=== PATIENT | female | born 1940 | race Caucasian/White ===

== ENCOUNTER 2023-02-25 10:20 | Outpatient (OUT) | payer MEDICARE, OTHER, SELFPAY ==
[2023-02-25 11:14] LABS: Basophils Absolute Auto 0.1 10^3/uL (0.0-0.1); Basophils Percent Auto 0.9 % (0.2-2.0); Eosinophils Absolute Auto 0.3 10^3/uL (0.0-0.7); Eosinophils Percent Auto 4.3 % (0.9-7.0); Hematocrit 40.5 % (36.0-48.0); Hemoglobin 13.4 g/dL (12.0-16.0); Immature Granulocytes Abs Auto 0.02 10^3/uL (0.00-0.03); Immature Granulocytes Pct Auto 0.3 % (0.0-0.5); Lymphocytes Absolute Auto 1.8 10^3/uL (1.2-3.8); Lymphocytes Percent Auto 28.3 % (20.5-60.0); Mean Corpuscular HGB Conc 33.1 g/dL (29.9-35.2); Mean Corpuscular Volume 90.8 fL (81.0-99.0); Mean Platelet Volume 9.6 fL (9.5-13.5); Monocytes Absolute Auto 1.1 10^3/uL (0.3-0.8); Monocytes Percent Auto 17.6 % (1.7-12.0); Neutrophils Absolute Auto 3.1 10^3/uL (1.4-6.5); Neutrophils Percent Auto 48.6 % (43.0-75.0); Platelet Count 281 10^3/uL (150-450); Red Blood Count 4.46 10^6/uL (4.20-5.40); Red Cell Distribution Width 13.2 % (11.0-15.0); White Blood Count 6.5 10^3/uL (4.0-11.0)
== END 2023-02-25 10:21 | disposition home or self-care (01) ==
PROVIDERS: PCP Internal Medicine; Visit Provider Internal Medicine
DX: D50.0 Iron deficiency anemia secondary to blood loss (chronic) (principal)
CPT/HCPCS: 36415; 82728; 85025

== ENCOUNTER 2023-05-24 13:46 | Outpatient (OUT) | payer MEDICARE, OTHER, SELFPAY ==
[2023-05-24 14:19] LABS: Basophils Absolute Auto 0.1 10^3/uL (0.0-0.1); Basophils Percent Auto 0.6 % (0.2-2.0); Eosinophils Absolute Auto 0.2 10^3/uL (0.0-0.7); Eosinophils Percent Auto 2.4 % (0.9-7.0); Hematocrit 39.4 % (36.0-48.0); Hemoglobin 12.8 g/dL (12.0-16.0); Immature Granulocytes Abs Auto 0.02 10^3/uL (0.00-0.03); Immature Granulocytes Pct Auto 0.2 % (0.0-0.5); Lymphocytes Absolute Auto 2.8 10^3/uL (1.2-3.8); Lymphocytes Percent Auto 35.1 % (20.5-60.0); Mean Corpuscular HGB Conc 32.5 g/dL (29.9-35.2); Mean Corpuscular Volume 92.5 fL (81.0-99.0); Mean Platelet Volume 9.9 fL (9.5-13.5); Monocytes Absolute Auto 1.2 10^3/uL (0.3-0.8); Monocytes Percent Auto 14.7 % (1.7-12.0); Neutrophils Absolute Auto 3.8 10^3/uL (1.4-6.5); Platelet Count 301 10^3/uL (150-450); Red Blood Count 4.26 10^6/uL (4.20-5.40); Red Cell Distribution Width 13.4 % (11.0-15.0); White Blood Count 8.1 10^3/uL (4.0-11.0)
== END 2023-05-24 13:47 | disposition home or self-care (01) ==
PROVIDERS: PCP Internal Medicine; Visit Provider Internal Medicine
DX: D50.0 Iron deficiency anemia secondary to blood loss (chronic) (principal)
CPT/HCPCS: 36415; 82728; 85025

== ENCOUNTER 2023-05-31 10:23 | Outpatient (OUT) | payer MEDICARE, OTHER, SELFPAY ==
[2023-05-31 11:35] LABS: Basophils Absolute Auto 0.1 10^3/uL (0.0-0.1); Eosinophils Absolute Auto 0.2 10^3/uL (0.0-0.7); Eosinophils Percent Auto 2.1 % (0.9-7.0); Hemoglobin 13.7 g/dL (12.0-16.0); Immature Granulocytes Abs Auto 0.02 10^3/uL (0.00-0.03); Immature Granulocytes Pct Auto 0.2 % (0.0-0.5); Lymphocytes Absolute Auto 2.5 10^3/uL (1.2-3.8); Lymphocytes Percent Auto 25.7 % (20.5-60.0); Mean Corpuscular HGB Conc 32.6 g/dL (29.9-35.2); Mean Corpuscular Hemoglobin 30.6 pg (26.7-34.0); Mean Corpuscular Volume 93.8 fL (81.0-99.0); Mean Platelet Volume 10.2 fL (9.5-13.5); Monocytes Absolute Auto 1.2 10^3/uL (0.3-0.8); Monocytes Percent Auto 12.7 % (1.7-12.0); Neutrophils Absolute Auto 5.6 10^3/uL (1.4-6.5); Neutrophils Percent Auto 58.3 % (43.0-75.0); Platelet Count 326 10^3/uL (150-450); Red Blood Count 4.48 10^6/uL (4.20-5.40); Red Cell Distribution Width 13.5 % (11.0-15.0); White Blood Count 9.6 10^3/uL (4.0-11.0)
[2023-05-31 12:43] LABS: Alanine Aminotransferase 25 U/L (14-59); Albumin Globulin Ratio 1.1; Albumin Level 3.9 g/dL (3.4-5.0); Alkaline Phosphatase 81 U/L (46-116); Anion Gap 12.4; Aspartate Amino Transferase 20 U/L (15-37); BUN Creatinine Ratio 19.8; Bilirubin Total 0.3 mg/dL (0.2-1.0); Calcium 9.1 mg/dL (8.5-10.1); Chloride 99 mmol/L (98-107); Estimated GFR (African America >60 (>=60); Estimated GFR (Non-African Ame 59 (>=60); Globulin 3.6 g/dL; Glucose 80 mg/dL (74-106); Potassium 4.4 mmol/L (3.5-5.1); Sodium 136 mmol/L (136-145); Thyroid Stimulating Hormone 1.039 uIU/mL (0.358-3.740); Total Protein 7.5 g/dL (6.4-8.2)
--- OUTSIDE RECORDS SUMMARY | 2023-06-28 22:12 | XMS_ITS | CCD ---
Author Name Unknown Address [address] [place] [address] Organization [facility] Care Team Providers Care Emt Paramedic Name Role Phone Doctor, No Unavailable Unavailable Doctor, No Unavailable Unavailable Donnell Barton Unavailable Unavailable Donnell Barton Unavailable Unavailable Kvng Melgar DO Primary Care Provider Kvng Melgar DO Primary Care Provider DO Kvng Melgar Primary Care Provider MD Jeyson Diaz Attending Provider [phone] KVNG MLEGAR Primary Care Unavailable MAVIS SANTIAGO Referring Unavailable MAVIS SANTIAGO Attending Unavailable KVNG MELGAR Primary Care Unavailable KVNG MELGAR Primary Care Unavailable MAVIS SANTIAGO Attending Unavailable KVNG MELGAR Referring Unavailable KVNG MELGAR Primary Care Unavailable Adebayo Pan Unavailable Kvng Melgar Unavailable Jeyson Diaz Unavailable Sadiq Beckham Unavailable DO Kvng Melgar Primary Care Provider MD Jeyson Diaz Attending Provider [phone] KVNG MELGAR Primary Care Unavailable ERMELINDA, DR CALDERON Attending Unavailable ERMELINDA, DR CALDERON Admitting Unavailable BALL, DR CALDERON Consulting Unavailable ZIEBALENA, DR ANTHONY Gautam Consulting Unavailable ERMELINDA, DR CALDERON Consulting Unavailable BALL, DR CALDERON Admitting Unavailable BALL, DR CALDERON Attending Unavailable BALL, DR CALDERON Primary Care Unavailable BALL, DR CALDERON Admitting Unavailable BALL, DR CALDERON Attending Unavailable BALL, DR CALDERON Consulting Unavailable BALL, DR CALDERON Primary Care Unavailable BALL, DR CALDERON Primary Care Unavailable JAVON, DR FERGUSON Admitting Unavailable JAVON, DR FERGUSON Attending Unavailable KATELYNN ., NISSA Admitting Unavailable KATELYNN ., NISSA Attending Unavailable NESTOR, DR ANTHONY Gautam Consulting Unavailable BALL, DR CALDERON Primary Care Unavailable KATELYNN ., NISSA Consulting Unavailable FLOR ., LIDA Admitting Unavailable FLOR ., LIDA Attending Unavailable FLOR ., LIDA Consulting Unavailable BALL, DR CALDERON Primary Care Unavailable BALL, DR CALDERON Admitting Unavailable BALL, DR CALDERON Attending Unavailable BALL, DR CALDERON Consulting Unavailable BALL, DR CALDERON Primary Care Unavailable BALL, DR CALDERON Admitting Unavailable BALL, DR CALDERON Attending Unavailable BALL, DR CALDERON Consulting Unavailable BALL, DR CALDERON Primary Care Unavailable BALL, DR CALDERON Admitting Unavailable BALL, DR CALDERON Attending Unavailable BALL, DR CALDERON Consulting Unavailable BALL, DR CALDERON Primary Care Unavailable VELIA, BENJAMIN Consulting Unavailable Ball, DO Calderon Primary Care Provider [phone] MD Joe Imprice Attending Provider Asaad, Imad Attending Unavailable Ball, Kvng Primary Care Unavailable Asaad, Imad Admitting Unavailable Asaad, Imad Attending Unavailable Ball, Kvng Primary Care Unavailable Asaad, Imad Admitting Unavailable Asaad, Imad Attending Unavailable Ball, Kvng Primary Care Unavailable Asaad, Imad Admitting Unavailable Asaad, Imad Admitting Unavailable Ball, Kvng Primary Care Unavailable Asaad, Imad Attending Unavailable Allergies Allergy Classification Reported Allergen(s) Allergy Type Date of Onset Reaction(s) Facility (6 sources) Penicillins; Translations: [PENICILLINS] Drug allergy (disorder) 11-16-19 15 [facility] Repository (6 sources) Sulfonamides (Antibiotic); Translations: [SULFA (SULFONAMIDE ANTIBIOTICS)] Drug allergy (disorder) 11-16-19 15 [facility] Repository (5 sources) Tgtfouz-Ovi-Gux Reductase Inhibitor Drug allergy (disorder) 01-06-20 18 Unknown Reaction [facility] Repository (20 sources) Cephalosporins (Antibiotic); Translations: [CEPHALOSPORINS] Drug Allergy 10-24-19 15 Unknown [facility] (7 sources) HMG-CoA reductase inhibitor; Translations: [[id number] REDUCTASE INHIBITORS] Drug Allergy 01-06-20 18 Unknown [facility] (7 sources) Nitrofurantoin; Translations: [NITROFURANTOIN MACROCRYSTAL] Drug Allergy 10-12-19 19 Rash, Itching [facility] (6 sources) Penicillins Drug Allergy 11-16-19 15 [facility] (20 sources) Povidone-Iodine; Translations: [POVIDONE-IODINE] Drug Allergy 06-21-20 19 Unknown [facility] (20 sources) Sulfonamides (Antibiotic) Drug Allergy 11-16-19 15 [facility] (20 sources) Vancomycin; Translations: [VANCOMYCIN] Drug Allergy 10-12-19 19 Rash, Itching [facility] (20 sources) Nitrofurantoin; Translations: [nitrofurantoin] Drug Allergy 12-02-19 21 rash [facility] (20 sources) Penicillin G Benzathine Drug allergy rash [employer] Other (20 sources) Sulfacetamide / Sulfur Drug Allergy rash [employer] Other (20 sources) Statins Depletion Drug allergy muscle aches [facility] [employer] Other (1 source) black walnut pollen extract Drug Allergy 05-17-20 14 [facility] Repository (1 source) Cephalosporins (Antibiotic) Drug allergy (disorder) 10-24-19 15 [facility] Repository (2 sources) Nitrofurantoin Drug Allergy 10-24-19 15 rash [facility] Repository (1 source) Penicillins Drug allergy (disorder) 01-24-20 13 [facility] Repository (2 sources) Povidone-Iodine Drug Allergy 06-21-20 19 Unknown [facility] Repository (1 source) Sulfonamides (Antibiotic) Drug allergy (disorder) 01-31-20 13 [facility] Repository (1 source) Vancomycin Drug Allergy 10-24-19 15 [facility] Repository (19 sources) Statins Depletion *DIETARY PRODUCTS/DIETARY MANAGE Propensity to adverse reactions Unknown [employer] Other (19 sources) Substance with penicillin structure and antibacterial mechanism of action (substance) Drug allergy 04-30-20 06 PENICILLINS [employer] Other (19 sources) Sulf-10 Drug allergy 12-01-19 06 SULFA 10 [employer] Other (1 source) Cephalosporins (Antibiotic) Drug allergy (disorder) 01-25-20 23 [facility] Repository (1 source) Povidone-Iodine Drug Allergy 01-25-20 [facility] Repository (1 source) Vancomycin Drug Allergy 01-25-20 [facility] Repository (1 source) Vancomycin Drug Allergy rash Sequence [employer] Other Medications Current Medications Medication Drug Class(es) Dates Sig (Normalized) Sig (Original) acetaminophen 500 mg oral tablet (4 sources) Start: 07-26-2022 take 1 tablet by mouth four times daily Acetaminophen (Tylenol Ex Str Rapid Release) 500 mg Tablet Active 500 MG PO Four times daily July 26, 2022 1:00am take 1 tablet by mouth every six hours Tylenol Extra Strength 500 MG 1 tablet as needed Orally every 6 hrs Active acetaminophen 250 mg / aspirin 250 mg / caffeine 65 mg oral tablet (20 sources) Platelet Aggregation Inhibitor, Nonsteroidal Anti-inflammatory Drug, Central Nervous System Stimulant, Methylxanthine Start: 07-26-2022 take 1 tablet by mouth every four to six hours Xpccmmu-Deleaaqvnfezc-Fzrxwbue (Excedrin Migraine) 250-250-65 mg Tablet Active 1 TAB PO EVERY 4-6 HOURS July 26, 2022 1:00am take 2 tablets by mouth every si x hours Excedrin Migraine 250-250-65 MG 2 tablets as needed Orally every 6 hrs Active [id number] actuat albuterol 0.09 mg/actuat metered dose inhaler (20 sources) beta2-Adrenergic Agonist Start: 12-28-2017 take 2 puff(s) by inhalation every four hours as needed Albuterol Sulfate HFA 108 (90 Base) MCG/ACT 2 puffs as needed Inhalation every 4 hrs for 7 days Dec, Active Start: 12-28-2017 take 2 puff(s) by in halation every four hours as needed Albuterol Sulfate HFA 108 (90 Base) MCG/ACT 2 puffs as needed Inhalation every 4 hrs for 7 days Dec, Active Start: 12-28-2017 take 2 puff(s) by in halation every four hours as needed Albuterol Sulfate HFA 108 (90 Base) MCG/ACT 2 puffs as needed Inhalation every 4 hrs for 7 days Dec, Not-Taking Comment on above: INHALE 2 PUFFS EVERY 4 HOURS NEEDED FOR SHORTNESS OF BREATH OR WHEEZING amLODIPine 5 mg oral tablet (20 sources) Dihydropyridine Calcium Channel Frandy Start: 11-28-2019 take 2.5 mg by mouth once daily Amlodipine (Norvasc) 5 mg Tablet Active 2.5 MG PO Daily November 27, 2019 11:00pm Start: 09-02-2018 take 1 tablet by george th once daily Amlodipine (Norvasc) 5 mg Tablet Active 5 MG PO Daily November 28, 2019 12:00am Comment on above: TK 1 T PO QD ascorbic acid 500 mg oral capsule (1 source) Vitamin C Vitamin C 500 MG Orally Active atenolol 25 mg oral tablet (20 sources) beta-Adrenergic Frandy Start: 11-15-2014 take 1 tablet by mouth once daily Atenolol (Tenormin) 25 mg Tablet Active 25 MG PO Daily November 28, 2019 12:00am Comment on above: Take 1 tablet by george th once daily. Calcium + D 315-200 MG-UNIT (20 sources) take 1 tablet by mouth twice daily at mealtime Calcium + D 315-200 MG-UNIT 1 tablet with meals Orally Twice a day Active calcium carbonate 1500 mg oral tablet (3 sources) Start: 2022 Calcium Carbonate (Calcium 600) 600 mg calcium (1,500 mg) Tablet Active 1200 MG PO Daily July 26, 2022 1:00am cholecalciferol 0.01 mg chewable tablet (3 sources) Vitamin D Start: 2022 take 1 tablet by mouth once daily Cholecalciferol (Vitamin D3) (Vitamin D3) 10 mcg (400 unit) Tablet,Chewable Active 20 MCG PO Daily July 26, 2022 1:00am dicyclomine hydrochloride 10 mg oral capsule (20 sources) Anticholinergic take 2 capsules by mouth every eight hours Dicyclomine HCl 10 MG 2 capsules Orally Three times a day Active doxycycline hyclate 100 mg oral capsule (20 sources) Tetracycline-class Drug Start: 2022 take 1 capsule by mouth every twenty-four hours Doxycycline Hyclate 100 MG 1 capsule Orally Once a day for 5 days Feb, Active Start: 12-28-2017 take 1 capsule by [facility] every twelve hours Doxycycline Hyclate 100 MG 1 capsule Orally every 12 hrs for 10 days Dec, Not-Taking famotidine 20 mg oral tablet (20 sources) Histamine-2 Receptor Antagonist Start: 07-26-2022 take 1 tablet by mouth once daily before mealtime Famotidine (Pepcid Ac) 20 mg Tablet Active 20 MG PO Daily July 26, 2022 1:00am take 1 tablet by mouth twice taniya ly famotidine (PEPCID) 20 mg tablet Take 20 mg by mouth twice daily. 0 Active Comment on above: Take 20 mg by mouth twice daily. glucosamine sulfate 750 mg oral tablet (1 source) Start: 01-24-2023 take 1 tablet by mouth once daily Glucosamine Sulfate (Dayan) 750 mg Tablet Active 750 MG PO Daily January 24, 2023 12:00am administer with a meal levothyroxine sodium 0.112 mg oral tablet (20 sources) l-Thyroxi ne Start: 12-28-2022 take 1 tablet by mouth once daily in the morning Levothyroxine Sodium 112 MCG 1 tablet in the morning on an empty stomach Orally Once a day Dec, Active Start: 10-05-2018 take 1 tablet by george th once daily in the morning Levothyroxine Sodium 112 MCG 1 tablet in the morning on an empty stomach Orally Once a day Dec, Active Start: 10-05-2018 levothyroxine (SYNTHROID) 112 mcg tablet 0.125 mcg. 2 10/05/2018 Active take 1 tablet by george th every twenty-four hours Levothyroxine Sodium 137 MCG 1 tablet Orally Once a day Active Comment on above: TAKE 1 TABLET BY GEORGE TH EVERYDAY ON AN EMPTY STOMACH 0.125 mcg. LORazepam 0.5 mg oral tablet (5 sources) Benzodiazepine Start: 05-31-2023 LORazepam 0.5 MG 1 tablet Orally one hour before procedure for 1 days May, Active losartan potassium 50 mg oral tablet (20 sources) Angiotensin 2 Receptor Frandy Losartan Potassium 5 0 MG Orally Active Multivitamin preparation (20 sources) Multivitamin Act kerri Multivitamin Not -Taking [place] 3 1200 MG (20 sources) take 1 capsule by mo uth once daily [place] 3 1200 MG 1 capsule Orally Once a day Active take 1 capsule by mouth once taniya ly [place] 3 1200 MG 1 capsule Orally Once a day Not-Taking pantoprazole 40 mg delayed release oral tablet (20 sources) Proton Pump Inhibitor Start: 03-25-2023 Pantoprazole Sodium 40 MG 1 tablet 30 minutes prior to morning meal Orally Once a day for 30 days Mar, Active Start: 10-28-2022 Pantoprazole S odium 40 MG 1 tablet 30 minutes before morning meal & 1 tablet in the evening Orally Once a day Oct, Active Start: 07-26-2022 End: 10-28-2022 take 1 tablet by mouth every twenty-four hours Pantoprazole Sodium 40 MG 1 tablet Orally Once a day Jul, Not-Taking predniSONE 20 mg oral tablet (8 sources) Start: 03-04-2023 predniSONE 20 MG 1 tablet Orally bid w /food x 3 days then qd w/ food x 3 days for 6 days Feb, Active red yeast rice 600 mg oral tablet (3 sources) Start: 07-26-2022 take 2400 mg by mouth once daily Red Yeast Rice Active 2400 MG PO Daily July 26, 2022 1:00am give with meal/snack Red Yeast Rice (20 sources) Red Yeast Rice A ctive Selenimin (20 sources) Selenimin Active Selenimin Not-[place] traMADol hydrochloride 50 mg oral tablet (20 sources) Opioid Agonist Start: 06-20-2023 take 1 tablet by mouth twice daily as needed for pain traMADol HCl 50 MG 1 tablet Orally twice daily as needed for pain for 30 days Start 06/20 w/ 2RF Jun, Active Start: 10-12-2022 take 1 tablet by george th twice daily as needed for pain traMADol HCl 50 MG 1 tablet Orally twice daily as needed for pain for 30 days May, Active Start: 11-15-2014 End: 05-18-2022 take 1 tablet by mouth every four hours as needed traMADol (ULTRAM) 50 mg tablet Take 1 tablet by mouth every 4 hours as needed for Pain. 0 11/15/2014 05/18/2022 Discontinued (Course of therapy completed) Comment on above: Take 1 tablet by george th every 4 hours as needed for Pain. triamcinolone acetonide 0.005 mg/mg topical ointment (20 sources) Corticosteroid Start: 03-11-2023 Triamcinolone Acetonide 0.5 % 1 application Externally Twice a day for 30 days Mar, Active Start: 03-04-2023 Triamcinolone Acetonide 0.1 % 1 application Externally Two times a Week for 7 days 25 Aug, 2023 Active Start: 03-04-2023 Triamcinolone Acetonide 0.1 % 1 application Externally Two times a Week for 7 days Feb, Active Tylenol Extra Strength 500 MG (20 sources) take 1 tablet by george th every six hours as needed Tylenol Extra Strength 500 MG 1 tablet as needed Orally every 6 hrs Active take 1 tablet by george th every six hours as needed Tylenol Extra Strength 500 MG 1 tablet a s needed Orally every 6 hrs Not-Taking Vit C,M-Za-Szhyo-Lutein-Zeax an (Preservision Areds-2) 250-90-40-1 mg Capsule (3 sources) Start: 07-26-2022 Vit C,J-Uh-Boipz-Lutein-Zeax an (Preservision Areds-2) 250-90-40-1 mg Capsule Active 1 TAB PO Twice daily July 26, 2022 1:00am Start: 07-26-2022 Vit C,E-Zn-Drier qi-Vvhtnk-Pmqlnk (Preservision Areds-2) 250-90-40-1 mg Capsule Active 1 TAB PO Twice daily July 26, 2022 12:00am Vitamin C 500 MG (20 sources) Vitamin C 500 MG Orally Active Vitamin C 500 MG Orally Not-Taking vitamin e d-alpha 400 unt oral capsule (1 source) take 1 capsule by mo uth every twenty-four hours Vitamin E 400 UNIT 1 capsule Orally Once a day Active Vitamin E 400 UNIT (20 sources) take 1 capsule by mo uth once daily Vitamin E 400 UNIT 1 capsule Orally Once a day Active take 1 capsule by mouth once taniya ly Vitamin E 400 UNIT 1 capsule Orally Once a day Not-Taking zoledronic acid (20 sources) Bisphosphonate Reclast YEARLY A ctive Completed/Discontinued Medications Medication Drug Class(es) Dates Sig (Normalized) Sig (Original) aspirin/acetaminophen/ca ffeine (EXCEDRIN EXTRA STRENGTH ORAL) (5 sources) aspirin/acetamin ophen/c affeine (EXCEDRIN EXTRA STRENGTH ORAL) Take by mouth. 0 Active Comment on above: Take by mouth. CA/D3/MAG OX/ZINC/TELEGRAPH PLANT MAINTAINER/MEREDITH/B OR (CALCIUM 600+D3 PLUS ORAL) (6 sources) take 1200 mg by mouth once daily CA/D3/MAG OX/ZINC/TELEGRAPH PLANT MAINTAINER/MEREDITH/BOR (CALCIUM 600+D3 PLUS ORAL) Take 1,200 mg by mouth once daily. 0 Active Comment on above: Take 1,200 mg by george th once daily. celecoxib 100 mg oral capsule (5 sources) Nonsteroidal Anti-inflammatory Drug Start: 11-28-2019 End: 07-26-2022 take 1 capsule by mouth once daily Celecoxib (Celebrex) 100 mg Capsule Discontinued 100 MG PO Daily November 28, 2019 12:00am July 26, 2022 8:11am Start: 09-02-2018 End: 05-18-2022 take 3 capsules by mouth once daily celecoxib (CELEBREX) 100 mg capsule TK 1 C PO QD 3 09/02/2018 05/18/2022 Discontinued (Discontinued by another Health Care Provider) Comment on above: TK 1 C PO QD diclofenac sodium 75 mg delayed release oral tablet (19 sources) Nonsteroidal Anti-inflammatory Drug Start: 04-18-2022 End: 10-28-2022 take 75 mg by mouth twice daily Diclofenac Sodium Discontinued 75 MG PO Twice daily July 26, 2022 1:00am October 28, 2022 11:38am Comment on above: Take 75 mg by mouth twice daily. estrogens, conjugated (half-way) 0.3 mg oral tablet (20 sources) Estrogen Start: 11-28-2019 End: 11-28-2019 take 1 tablet by mouth once daily Conjugated Estrogens (Premarin) 0.3 mg Tablet Discontinued 0.3 MG PO Daily November 28, 2019 12:00am November 28, 2019 11:12am Premarin 0.625 M G/GM Vaginal PRN Active Premarin 0.625 M G/GM Vaginal PRN Active End: 05-18-2022 ESTROGENS, CONJUGATED (HUBERT RIN VAGINAL) Indications: Iron deficiency , Anemia Use vaginally. 0 05/18/2022 Discontinued (Discontinued by Patient) ESTROGENS, CONJU GATED (PREMARIN VAGINAL) Indications: Iron deficiency , Anemia Use vaginally. 0 Active Comment on above: Use vaginally. methylPREDNISolone 4 mg oral tablet (20 sources) Corticosteroid methylPREDNISolo ne 4 MG as directed Orally take as directed for 6 days Not-Taking 24 hr metoprolol succinate 25 mg extended release oral tablet (5 sources) beta-Adrenergic Frandy Start: 2019 End: 2019 take 25 mg by mouth once daily Metoprolol Succinate Discontinued 25 MG PO Daily November 28, 2019 12:00am May 29, 2020 12:10pm Start: 11-08-2017 End: 05-18-2022 metoprolol succinate ER (TOP ROL XL) 25 mg 24 hr tablet raNITIdine 150 mg oral tablet (18 sources) Histamine-2 Receptor Antagonist Start: 09-25-2016 End: 05-18-2022 ranitidine (ZANTAC) 150 mg tablet Take 150 mg by mouth as needed. 0 09/25/2016 05/18/2022 Discontinued (Discontinued by Patient) Ranitidine Activ e Comment on above: Take 150 mg by mouth as needed. RED YEAST RICE ORAL (5 sources) RED YEAST RICE O RAL Take by mouth. 0 Active Comment on above: Take by mouth. vit A/vit C/vit E/zinc/coppe r (PRESERVISION AREDS ORAL) (5 sources) vit A/vit C/vit E/zinc/copper (PRESERVISION AREDS ORAL) Take by mouth. 0 Active Comment on above: Take by mouth. Problems Active Problems Problem Classification Problem Date Documented Da te Episodic/Chronic Abdominal pain (15 sources) Abdominal pain; Translations: [Abdominal pain] Episodic Acute bronchitis (1 source) Acute bronchitis; Translations: [Acute bronchitis due to other specified organisms] Episodic Allergic reactions (2 sources) Urticaria, unspecified; Translations: [Urticaria] Onset: 12-04-2015 Episodic Anxiety disorders (20 sources) Anxiety; Translations: [Other specified anxiety disorders] Chronic Aortic; peripheral; and visceral artery aneurysms (20 sources) Ascending aorta dilatation; Translations: [Thoracic aortic ectasia] Chronic Chronic kidney disease (20 sources) Chronic kidney disease stage 3A ; Translations: [Stage 3a chronic kidney disease] Onset: 08-29-2018 Chronic Chronic obstructive pulmonary disease and bronchiectasis (1 source) Chronic obstructive pulmonary disease with (acute) exacerbation; Translations: [COPD WITH ACUTE EXACERBATION] Onset: 01-29-2022 Chronic Conditions associated with dizziness or vertigo (20 sources) Benign paroxysmal positional vertigo; Translations: [Benign paroxysmal vertigo, bilateral] Episodic Deficiency and other anemia (3 sources) Iron deficiency anemia secondary to blood loss (chronic); Translations: [IRON DEFIC ANEMIA SEC BLD LOSS CHRN] Onset: 05-09-2022 Chronic Deficiency and other anemia (20 sources) Iron deficiency anemia due to blood loss; Translations: [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 Deficiency and other anemia (7 sources) Anemia; Translations: [Anemia, unspecified] Onset: 11-15-2014 11-15-2014 Episodic Deficiency and other anemia (20 sources) Iron deficiency anemia; Translations: [Iron deficiency anemia, unspecified] Resolved: 05-10-2022 Episodic Diseases of white blood cells (20 sources) Leukocytosis; Translations: [Elevated white blood cell count, unspecified] Onset: 02-09-2022 Chronic Disorders of lipid metabolism (20 sources) Pure hypercholesterolemia; Translations: [Familial hypercholesterolemia] Onset: 04-18-2015 Chronic Esophageal disorders (12 sources) Gastro-esophageal reflux disease with esophagitis; Translations: [Gastroesophageal reflux disease 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 hemorrhage] Chronic Essential hypertension (20 sources) Essential hypertension; Translations: [Essential (primary) hypertension] Onset: 05-09-2022 Chronic Fluid and electrolyte disorders (20 sources) Hyponatremia; Translations: [Hypo-osmolality and hyponatremia] Episodic Gastritis and duodenitis (20 sources) Chronic superficial gastritis; Translations: [Chronic superficial gastritis with bleeding] Chronic Gastroduodenal ulcer (except hemorrhage) (1 source) Gastric ulcer, unspecified as acute or chronic, without hemorrhage or perforation; Translations: [Gastric ulcer, unspecified as acute or chronic, without hemorrhage or perforation] Onset: 10-28-2022 Chronic Gastroduodenal ulcer (except hemorrhage) (1 source) Acute gastric ulcer without hemorrhage or perforation Episodic Genitourinary symptoms and ill-defined conditions (1 source) Dysuria; Translations: [Dysuria] Episodic Malaise and fatigue (20 sources) Fatigue; Translations: [Other fatigue] Onset: 01-29-2022 Episodic Menopausal disorders (1 source) Primary ovarian failure; Translations: [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 Nutritional deficiencies (20 sources) Vitamin D deficiency; Translations: [Vitamin D deficiency, unspecified] Chronic Nutritional deficiencies (9 sources) Iron deficiency; Translations: [Iron deficiency] Onset: 11-15-2014 11-15-2014 Episodic Osteoarthritis (20 sources) Osteoarthritis of knee; Translations: [Unilateral primary osteoarthritis, right knee] Onset: 10-23-2013 Chronic Osteoporosis (20 sources) Primary osteoporosis; Translations: [Age-related osteoporosis without current pathological fracture] Chronic Other aftercare (2 sources) 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; 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] Onset: 10-26-2022 Episodic Other aftercare (1 source) Encounter for follow-up examination after completed treatment for conditions other than malignant neoplasm; Translations: [Encounter for follow-up examination after completed treatment for conditions other than malignant neoplasm] Onset: 01-24-2023 Episodic Other connective tissue disease (20 sources) Artificial knee joint present; Translations: [Presence of right artificial knee joint] Chronic Other connective tissue disease (1 source) Presence of right artificial knee joint; Translations: [Status post total right knee replacement] Chronic Other connective tissue disease (1 source) Abnormal posture; Translations: [ABNORMAL POSTURE] Onset: 09-28-2022 Episodic Other diseases of veins and lymphatics (20 sources) Peripheral venous insufficiency; Translations: [Venous insufficiency (chronic) (peripheral)] Episodic Other diseases of veins and lymphatics (4 sources) Venous insufficiency (chronic) (peripheral); Translations: [Chronic venous insufficiency] Episodic Other disorders of stomach and duodenum (13 sources) Indigestion; Translations: [Functional dyspepsia] Episodic Other endocrine disorders (20 sources) Syndrome of inappropriate vasopressin secretion; 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] Chronic Other endocrine disorders (1 source) Syndrome of inappropriate secretion of antidiuretic hormone; 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)] Chronic Other gastrointestinal disorders (20 sources) Irritable bowel syndrome; Translations: [Mixed irritable bowel syndrome] Onset: 04-26-2014 Chronic Other gastrointestinal disorders (20 sources) Celiac disease; Translations: [Celiac disease] Chronic Other gastrointestinal disorders (1 source) Mixed irritable bowel syndrome; 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 bowel syndrome with both constipation and diarrhea] Chronic Other gastrointestinal disorders (1 source) Celiac disease; Translations: [Celiac disease] Chronic Other injuries and conditions due to external causes (1 source) History of fall; Translations: [History of falling] Episodic Other nervous system disorders (20 sources) Chronic pain; Translations: [Other chronic pain] Chronic Other nervous system disorders (1 source) Other chronic pain; Translations: [OTHER CHRONIC PAIN] Onset: 12-21-2021 Chronic Other nervous system disorders (20 sources) Abnormal gait; Translations: [Unsteadiness on feet] Episodic Other nervous system disorders (1 source) Unsteadiness on feet Episodic Other nervous system disorders (1 source) Unspecified abnormalities of gait and mobility; Translations: [UNS ABNORMALITIES GAIT AND MOBILITY] Onset: 09-28-2022 Episodic Other nervous system disorders (8 sources) Paresthesia; Translations: [Paresthesia of skin] Episodic Other nervous system disorders (2 sources) Paresthesia of skin Episodic Other nutritional; endocrine; and metabolic disorders (20 sources) Hypocalcemia; Translations: [Hypocalcemia] Chronic Other nutritional; endocrine; and metabolic disorders (1 source) Hypocalcemia Chronic Other nutritional; endocrine; and metabolic disorders (1 source) Obesity; Translations: [Obesity, unspecified] Chronic Other nutritional; endocrine; and metabolic disorders (2 sources) Overweight Episodic Other nutritional; endocrine; and metabolic disorders (1 source) Overweight; Translations: [Overweight] Episodic Other upper respiratory disease (1 source) Allergic rhinitis; Translations: [Allergic rhinitis, unspecified] Onset: 05-06-2015 Chronic Other upper respiratory infections (1 source) Acute maxillary sinusitis; Translations: [Acute maxillary sinusitis, unspecified] Episodic Emilee-; endo-; and myocarditis; cardiomyopathy (except that caused by tuberculosis or sexually transmitted disease) (20 sources) Subacute bacterial endocarditis ; Translations: [Acute and subacute infective endocarditis] Episodic Residual codes; unclassified (1 source) Family history of malignant neoplasm of trachea, bronchus and lung; Translations: [FAM HX MALIG NEOPLSM TRACH BRON LNG] Onset: 10-26-2022 Episodic Residual codes; unclassified (1 source) Family history of malignant neoplasm of other organs or systems; Translations: [FAM HX MALIG NEOPLASM OTH ORGN/SYS] Onset: 10-26-2022 Episodic Residual codes; unclassified (8 sources) Memory impairment; Translations: [Other amnesia] Episodic Residual codes; unclassified (2 sources) Other amnesia Episodic Skin and subcutaneous tissue infections (1 source) Cellulitis of left upper limb Episodic Spondylosis; intervertebral disc disorders; other back problems (20 sources) Lumbar spondylosis; Translations: [Spondylosis without myelopathy or radiculopathy, lumbar region] Onset: 01-06-2022 Chronic Spondylosis; intervertebral disc disorders; other back problems (3 sources) Low back pain; Translations: [Low back pain, unspecified] Episodic Thyroid disorders (20 sources) Rhett thyroiditis; 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-2022 Chronic Transient cerebral ischemia (20 sources) Vertebrobasilar artery syndrome; 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 Unclassified (20 sources) Left-sided low back pain without sciatica, unspecified chronicity; Translations: [Left-sided low back pain without sciatica, unspecified chronicity] Unclassified (20 sources) 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; Translations: [Chronic mklw-JCEXI-36 syndrome] Unclassified (3 sources) LOW BACK PAIN, UNSPECIFIED; Translations: [LOW BACK PAIN, UNSPECIFIED] Onset: 09-27-2022 Unclassified (1 source) CONTACT W/AND (SUSP) EXPOS COVID-19; Translations: [CONTACT W/AND (SUSP) EXPOS COVID-19] Onset: 01-29-2022 Unclassified (1 source) Myalgic encephalomyelitis/chr onic fatigue syndrome; Translations: [Myalgic encephalomyelitis/chr onic fatigue syndrome] Unclassified (1 source) Exposure to acute respiratory syndrome coronavirus 2; Translations: [Contact with and (suspected) exposure to COVID-19] Unclassified (1 source) 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; Translations: [Chronic rpge-ZNDFG-86 syndrome] Unclassified (1 source) Encounter for preprocedural laboratory examination; Translations: [Encounter for preprocedural laboratory examination] Onset: 07-22-2022 Viral infection (4 sources) COVID-19; Translations: [COVID-19] Onset: 03-31-2022 Past or Other Problems Problem Classification Problem Date Documented Da te Episodic/Chronic Biliary tract disease (1 source) Disorder of gallbladder; Translations: [Other specified diseases of gallbladder] Onset: 04-18-2015 Episodic Cespedes (1 source) Burn of forehead AND/OR cheek; Translations: [Corrosion of unspecified degree of forehead and cheek, initial encounter] Resolved: 03-02-2021 Episodic Chronic kidney disease (5 sources) Chronic kidney disease Deficiency and other anemia (1 source) Anemia due to chronic blood loss; Translations: [Iron deficiency anemia secondary to blood loss (chronic)] Resolved: 05-10-2022 Chronic Deficiency and other anemia (3 sources) Iron deficiency anemia, unspecified; Translations: [Iron deficiency anemia] Onset: 07-26-2022 Episodic Deficiency and other anemia (5 sources) Anemia, unspecified; Translations: [ANEMIA UNSPECIFIED] Onset: 02-13-2022 Episodic Esophageal disorders (20 sources) Esophageal disorders; Translations: [Gastroesophageal reflux disease 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 hemorrhage] Immunizations and screening for infectious disease (2 sources) Encounter for immunization; Translations: [Vaccination given] Onset: 04-27-2016 Episodic Nausea and vomiting (1 source) Nausea; Translations: [Nausea] Onset: 11-03-2015 Episodic Nonspecific chest pain (2 sources) Chest pain, unspecified; Translations: [Chest pain] Onset: 01-29-2022 Resolved: 05-22-2020 Episodic Other aftercare (1 source) Other fpc (current) drug therapy; Translations: [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] Onset: 01-29-2022 Episodic Other inflammatory condition of skin (1 source) Itching of skin; Translations: [Pruritus, unspecified] Onset: 11-03-2015 Episodic Other lower respiratory disease (4 sources) Dyspnea, unspecified; Translations: [DYSPNEA UNSPECIFIED] Onset: 01-27-2022 Episodic Other lower respiratory disease (2 sources) Dyspnea; Translations: [Other forms of dyspnea] Resolved: 05-22-2020 Episodic Other non-traumatic joint disorders (1 source) Arthralgia of the pelvic region and thigh; Translations: [Pain in unspecified hip] Onset: 10-23-2013 Episodic Other non-traumatic joint disorders (1 source) Arthralgia of the lower leg; Translations: [Pain in unspecified knee] Onset: 10-23-2013 Episodic Other screening for suspected conditions (not mental disorders or infectious disease) (6 sources) Encounter for screening mammogram for malignant neoplasm of breast; Translations: [Blood chemistry abnormal] Onset: 07-02-2018 Episodic Other skin disorders (1 source) Generalized hyperhidrosis; Translations: [Generalized hyperhidrosis] Onset: 04-27-2016 Episodic Unclassified (1 source) LOW BACK PAIN, UNSPECIFIED; Translations: [LOW BACK PAIN, UNSPECIFIED] Onset: 09-27-2022 Results Test Name Value Interpretation Reference Range Facil ity Umberto 10-28-2022 L Specimen: Received: 10/28/22 Status: PIYUSH Joseph Num: [id number] Spec Type: Surgical Subm Dr: Jeyson Diaz MD Tissues: A Gastric Biopsy (GASTRIC ULCER IN FUNDUS) B Gastric Biopsy (GASTRIC ULCER IN BODY) C Esophagus Biopsy (ESOPHAGUS BX) Procedures: HE/6, Gross/Micro L4/3, H PYLORI/4 Age/ Patient Sex Location Account Attending Physician Tangela Trinidad 82/Atul [id number] Jeyson Diaz MD SPEC NUM: [id number] RECD: 10/28/22 STATUS: PIYUSH JOSEPH NUM: [id number] JOSE: 10/28/22- SUBM DR: Jeyson Diaz MD ENTERED: 10/28/[address] [facility] DR: SPEC TYPE: Surgical DEPT: S ORDERED: HE/6, Gross/Micro L4/3, H PYLORI/4 ORDERED: HE/6, Gross/Micro L4/3, H PYLORI/4 Supplemental Report Addendum 1 Entered: 11/01/22 This supplemental report is issued to report Helicobacter pylori IHC performed on blocks A1 and B1 with satisfactory controls. Result: Negative for Helicobacter pylori microorganism in both parts. CPT: 33316n 2 Addendum Signed (signature on file) Fred Wilson MD 11/01/221536 Pathological Diagnosis A. Stomach, fundus, ulcer, biopsy: - Chronic active gastritis. - No intestinal metaplasia or dysplasia seen. - Immunostain for H. pylori organisms will follow in supplemental report. B. Stomach, body, ulcer, biopsy: Specimen: [id number] Received: 10/28/22 Status: PIYUSH Jake Num: [id number] Spec Type: Surgical Subm Dr: Jeyson Diaz MD Tissues: A Gastric Biopsy (GASTRIC ULCER IN FUNDUS) B Gastric Biopsy (GASTRIC ULCER IN BODY) C Esophagus Biopsy (ESOPHAGUS BX) Procedures: HE/6, Gross/Micro L4/3, H PYLORI/4 Patient: Tangela Trinidad [id number] (Continued) Specimen: [id number] Received: 10/28/22 (Continued) Pathological Diagnosis (Continued) Signed (signature on file) Barrett Serra MD 10/29/22 0952 Specimen: [id number] Received: 10/28/22 Status: PIYUSH Joseph Num: [id number] Spec Type: Surgical Subm Dr: Jeyson Diaz MD Tissues: A Gastric Biopsy (GASTRIC ULCER IN FUNDUS) B Gastric Biopsy (GASTRIC ULCER IN BODY) C Esophagus Biopsy (ESOPHAGUS BX) Procedures: HE/6, Gross/Micro L4/3, H PYLORI/4 Patient: Tangela Trinidad [id number] (Continued) Specimen: [id number] Received: 10/28/22 (Continued) Pathological Diagnosis (Continued) - Chronic inactive gastritis. - No intestinal metaplasia or dysplasia seen. - Immunostain for H. pylori organisms will follow in supplemental report. C. Esophagus, biopsy: - Squamous component with few intraepithelial lymphocytes. - Gastric glandular component with mild nonspecific chronic inflammatory cells in the lamina propria. - No eosinophilic or neutrophilic infiltrates, intestinal metaplasia, or dysplasia seen. Clinical Information History of gastric ulcer, rule out Johnson's Gross Description A. Received in formalin labeled with the patient's name, number and biopsy gastric ulcer in fundus are three fragments of soft bal tissue ranging from 0.2 x 0.2 x 0.1 cm to 0.4 x 0.2 x 0.2 cm. Entirely submitted in one cassette labeled A1. B. Received in formalin labeled with the patient's name, number and gastric ulcer biopsy in the body is one fragment of soft bal tissue measuring 0.3 x 0.3 x 0.1 cm. Entirely submitted in one cassette labeled B1. C. Received in formalin labeled with the patient's name, number and biopsy esophagus is one fragment of soft bal tissue measuring 0.2 x 0.2 x 0.1 cm. Entirely submitted in one cassette labeled C1. Microscopic Description A. Two glass slides with H E stained material have been examined. B. Two glass slides with H E stained material have been examined. C. Two glass slides with H E stained material have been examined. The microscopic findings support the above pathologic diagnosis. CPT Codes 63463?3 (more content not included)... [facility] MG MAMM SCREEN 3D ROXANA CADon 10-20-2022 MG MAMM SCREEN 3D ROXANA CAD Patient: TANGELA TRINIDAD Exam Date: 10/20/2022 : 1940 Gender:F Ordering : DR KVNG MELGAR D.O. Admission #: [id number] Family : Order #: [id number] CLICK HERE TO VIEW EXAM RADIOLOGY REPORT PROCEDURE: MAMMOGRAM SCREENING 3D BILATERAL CAD COMPARISON: MG MAMM SCREEN ROAXNA W CAD, 06/09/2020. MG MAMM SCREEN ROXANA W CAD, 02/23/2018. MG MAMM ROXANA SCRN W CAD DIG, 01/14/2016. DIGITIZED_MAMMO, 12/16/2008. INDICATIONS: Screening mammography Calculator Name NCI Breast Cancer Risk Assessment Tool 5 Year Breast Cancer Risk 1.10% Lifetime Breast Cancer Risk 1.30% Personal Breast Cancer No Personal Ovarian Cancer No Treatments None Family Cancers Sister with lung cancer at age 70; Brother with melonoma cancer at age 66. LOCATION: [facility] BREAST COMPOSITION: Scattered areas fibroglandular density. FINDINGS: DIAGNOSTIC CATEGORY 2--BENIGN FINDING: RIGHT BREAST: No significant suspicious finding. Scattered benign-appearing lymph nodes are present. No significant change has occurred. LEFT BREAST: No significant suspicious finding. Scattered benign-appearing lymph nodes are present. No significant change has occurred. RECOMMENDATIONS: ROUTINE MAMMOGRAM AND CLINICAL EVALUATION IN 12 MONTHS. PLEASE NOTE: A NORMAL MAMMOGRAM DOES NOT EXCLUDE THE POSSIBILITY OF BREAST CANCER. A CLINICALLY SUSPICIOUS PALPABLE LUMP SHOULD BE BIOPSIED. Dictated by: Anthony Guidry M.D. on 10/20/2022 at 13:16 Approved by: Anthony Guidry M.D. on 10/20/2022 at 13:19 Normal [facility] CBC W Auto Differential pane l (Bld)on 07-27-2022 Basophils (Bld) [#/Vol] 0.08 10*3/uL Normal <0.11 [facility] Comment on above: Order Comment: Speci men Type: BLOOD SPECIMEN Ordering Facility: [facility] Address: [address] [place] [address] Performed By: #### 1 4196-0, 87074-5 #### [facility] CLIA [id number] [address] [place] [address] Basophils/100 WBC (Bld) 0.9 % Normal [facility] Comment on above: Order Comment: Speci men Type: BLOOD SPECIMEN Ordering Facility: [facility] Address: [address] [address] Performed By: #### 1 4196-0, 66783-7 #### [facility] CLIA [id number] [address] [place] [address] Differential cell count method Nom (Bld) Auto Normal [facility] Comment on above: Order Comment: Speci men Type: BLOOD SPECIMEN Ordering Facility: [facility] Address: [address] [address] Performed By: #### 1 4196-0, #### [facility] CLIA [id number] [address] [place] [address] Eosinophils (Bld) [#/Vol] 0.52 10*3/uL High <0.46 [facility] Comment on above: Order Comment: Speci men Type: BLOOD SPECIMEN Ordering Facility: [facility] Address: [address] [address] Performed By: #### 1 4196-0, 12909-3 #### [facility] CLIA [id number] [address] [place] [address] Eosinophils/100 WBC (Bld) 5.8 % Normal [facility] Comment on above: Order Comment: Speci men Type: BLOOD SPECIMEN Ordering Facility: [facility] Address: [address] [address] Performed By: #### 1 4196-0, 80753-0 #### [facility] CLIA [id number] [address] [place] [address] Erythrocyte distribution wid th (RBC) [Ratio] 18.0 % High 11.5-15.0 [facility] Comment on above: Order Comment: Speci men Type: BLOOD SPECIMEN Ordering Facility: [facility] Address: [address] [address] Performed By: #### 1 4196-0, 68844-4 #### [facility] CLIA [id number] [address] [place] [address] Hematocrit (Bld) [Volume fraction] 39.6 % Normal 3 6.0-46.0 [facility] Comment on above: Order Comment: Speci men Type: BLOOD SPECIMEN Ordering Facility: [facility] Address: [address] [place] [address] Performed By: #### 1 4196-0, 43127-6 #### [facility] CLIA [id number] [address] [place] [address] Hemoglobin (Bld) [Mass/Vol] 13.0 g/dL Normal 11.5-15. 5 [facility] Comment on above: Order Comment: Speci men Type: BLOOD SPECIMEN Ordering Facility: [facility] Address: [address] [place] [address] Performed By: #### 1 4196-0, 00075-5 #### [facility] CLIA [id number] [address] [place] [address] Immature granulocytes (Bld) [#/Vol] 0.04 10*3/uL Normal <0.10 [facility] Comment on above: Order Comment: Speci men Type: BLOOD SPECIMEN Ordering Facility: [facility] Address: [address] [place] [address] Performed By: #### 1 4196-0, 64543-3 #### [facility] CLIA [id number] [address] [place] [address] Immature granulocytes/100 WBC (Bld) 0.4 % Normal [facility] Comment on above: Order Comment: Speci men Type: BLOOD SPECIMEN Ordering Facility: [facility] Address: [address] [place] [address] Performed By: #### 1 4196-0, 97366-9 #### [facility] CLIA [id number] [address] [place] [address] Lymphocytes (Bld) [#/Vol] 3.25 10*3/uL Normal 1.00-4.0 0 [facility] Comment on above: Order Comment: Speci men Type: BLOOD SPECIMEN Ordering Facility: [facility] Address: [address] [place] [address] Performed By: #### 1 4196-0, 68086-5 #### [facility] CLIA [id number] [address] [place] [address] Lymphocytes/100 WBC (Bld) 36.3 % Normal [facility] Comment on above: Order Comment: Speci men Type: BLOOD SPECIMEN Ordering Facility: [facility] Address: [address] [place] [address] Performed By: #### 1 4196-0, 55452-8 #### [facility] CLIA [id number] [address] [place] [address]163 MCH (RBC) [Entitic mass] 28.3 pg Normal 26.0-34.0 [facility] Comment on above: Order Comment: Speci men Type: BLOOD SPECIMEN Ordering Facility: [facility] Address: [address] [place] [address] Performed By: #### 1 4196-0, 42175-4 #### [facility] CLIA [id number] [address] [place] [address]147 MCHC (RBC) [Mass/Vol] 32.8 g/dL Normal 30.5-36.0 [facility] Comment on above: Order Comment: Speci men Type: BLOOD SPECIMEN Ordering Facility: [facility] Address: [address] [place] [address] Performed By: #### 1 4196-0, 17634-2 #### [facility] CLIA [id number] [address] [place] [address]6988 MCV (RBC) [Entitic vol] 86.1 fL Normal 80.0-100.0 [facility] Comment on above: Order Comment: Speci men Type: BLOOD SPECIMEN Ordering Facility: [facility] Address: [address] [address] Performed By: #### 1 4196-0, 28630-9 #### [facility] CLIA [id number] [address] [place] [address] 31666 Monocytes (Bld) [#/Vol] 1.25 10*3/uL High <0.87 [facility] Comment on above: Order Comment: Speci men Type: BLOOD SPECIMEN Ordering Facility: [facility] Address: [address] [address] Performed By: #### 1 4196-0, 20152-6 #### [facility] CLIA [id number] [address] [place] [address]44 Monocytes/100 WBC (Bld) 14.0 % Normal [facility] Comment on above: Order Comment: Speci men Type: BLOOD SPECIMEN Ordering Facility: [facility] Address: [address] [address] Performed By: #### 1 4196-0, 86642-5 #### [facility] CLIA [id number] [address] [place] [address]158 Neutrophils (Bld) [#/Vol] 3.81 10*3/uL Normal 1.45-7.5 0 [facility] Comment on above: Order Comment: Speci men Type: BLOOD SPECIMEN Ordering Facility: [facility] Address: [address] [address] Performed By: #### 1 4196-0, 58815-5 #### [facility] CLIA [id number] [address] [place] [address]15 Neutrophils/100 WBC (Bld) 42.6 % Normal [facility] Comment on above: Order Comment: Speci men Type: BLOOD SPECIMEN Ordering Facility: [facility] Address: [address] [address] Performed By: #### 1 4196-0, 89059-3 #### [facility] CLIA [id number] [address] [place] [address] [place] [address] Nucleated RBC (Bld) [#/Vol] 10*3/uL Normal <0.01 [facility] Comment on above: Order Comment: Speci men Type: BLOOD SPECIMEN Ordering Facility: [facility] Address: [address] [place] [address] Performed By: #### 1 4196-0, 89301-8 #### [facility] CLIA [id number] [address] [place] [address]89[address] Nucleated RBC/100 WBC (Bld) [Ratio] 0.0 /100 WBC Normal [facility] Comment on above: Order Comment: Speci men Type: BLOOD SPECIMEN Ordering Facility: [facility] Address: [address] [place] [address] Performed By: #### 1 4196-0, 54624-9 #### [facility] CLIA [id number] [address] [place] [address]100 Platelet mean volume (Bld) [ Entitic vol] 9.5 fL Normal 9.0-12.7 [facility] Comment on above: Order Comment: Speci men Type: BLOOD SPECIMEN Ordering Facility: [facility] Address: [address] [place] [address] Performed By: #### 1 4196-0, 70666-1 #### [facility] CLIA [id number] [address] [place] [address] Platelets (Bld) [#/Vol] 379 10*3/uL Normal 150-400 [facility] Comment on above: Order Comment: Speci men Type: BLOOD SPECIMEN Ordering Facility: [facility] Address: [address] [place] [address] Performed By: #### 1 4196-0, 43012-3 #### [facility] CLIA [id number] [address] [place] [address] 87795 RBC (Bld) [#/Vol] 4.60 10*6/uL Normal 3.90-5.20 [facility] Comment on above: Order Comment: Speci men Type: BLOOD SPECIMEN Ordering Facility: [facility] Address: [place] [address] Performed By: #### 1 4196-0, 48101-1 #### [facility] CLIA [id number] [address] [place] [address]148 WBC (Bld) [#/Vol] 8.95 10*3/uL Normal 3.70-11.00 [facility] Comment on above: Order Comment: Speci men Type: BLOOD SPECIMEN Ordering Facility: [facility] Address: [place] [address] Performed By: #### 1 4196-0, 89010-4 #### [facility] CLIA [id number] [address] [place] [address] CNOVSPon 07-27-2022 CNOVSP Visit (SP) Office ( [facility]) TANGELA TRINIDAD ([id number]) 1940 F Date Time Provider Department 07/27/22 2:45 PM MAVIS SANTIAGO During your visit today, we recorded the following information about you: Temperature Pulse Respiration Blood pressure 98.1 degrees 64/minute 16/minute 125/72 Weight Height 66.5 kg 1.524 m Mavis Santiago MD 07/27/2022 2:56 PM Signed PATIENT NAME: Tangela Trinidad CLINIC NO.: [id number] ATTENDING PHYSICIAN: Mavis Santiago MD DATE OF SERVICE: July 27, 2022 Some of the elements of this note have been copied from my previous progress note dated 05/18/2022. All the information has been reviewed carefully. Dear Dr. Kvng Melgar here is an update on a follow up visit on female Tangela Trinidad at the clinic July 27, 2022 Diagnosis: SHELLY Treatment History: IV Iron 10/2018. Repeat 05/2022 HPI: Tangela Trinidad is a 82 year old year old female here for follow up. Previously saw Dr. Salcedo with recurrent SHELLY and source unknown. Last colonoscopy 2012 which was normal. Denies any changes in her bowel habits and also denies any epigastric pain and or change in bowel habits. She is doing well and had a repeat colonoscopy and EGD 07/2022: 8 mm gastric ulcer, greater curvature and 12 mm gastric ulcer proxima gastric curvature and colonoscopy normal. Path negative for malignancy and neg for H. Pylori PAST MEDICAL HISTORY Diagnosis Date Anemia CVI (common variable immunodeficiency) (HCC) GERD (gastroesophageal reflux disease) HTN (hypertension) Hyperlipidemia Hypothyroidism IBS (irritable bowel syndrome) Social History Tobacco Use Smoking status: Former Smokeless tobacco: Never Vaping Use Vaping Use: Never used Substance Use Topics Alcohol use: Not Currently Drug use: Never No family history on file. Past medical, social and family history reviewed without any changes. REVIEW OF SYSTEMS GENERAL: No weight loss, malaise or fevers. No night sweats. HEENT: Negative for headaches, No changes in hearing or vision, no nose bleeds or other nasal problems. RESPIRATORY: Negative for cough, wheezing and shortness of breath CARDIOVASCULAR: Negative for chest pain, leg swelling and palpitations GI: Negative for abdominal discomfort, blood in stools or black stools and change in bowel habits : Negative for dysuria, frequency and incontinence MUSCULOSKELETAL: Negative for joint pain or swelling, back pain, and muscle pain. SKIN: Negative for lesions, rash, and itching. HEMATOLOGY/LYMPHOLOGY Negative for prolonged bleeding, bruising easily, and swollen nodes. NEURO: Negative for numbness or tingling of hands/feet. No weakness. PHYSICAL EXAMINATION: BP 125/72 Pulse 64 Temp (Src) 98.1 (Temporal) Resp 16 Ht 5' 0 (1.52m) Wt 146 lb 9.6 oz (66.5kg) SpO2 97% BMI 28.63 kg/(m2). Wt 68 kg (150 lb) BMI 29.29 kg/m2 Last 3 Encounter Wt Readings: Date: Wt: 05/18/2022 68 kg (150 lb) 01/10/2019 66 kg (145 lb 6.4 oz) 10/11/2018 65.1 kg (143 lb 9.6 oz) General appearance:ECOG PERFORMANCE STATUS: 1- Restricted in physically strenuous activity. Carries out light duty. Patient in NAD. Skin: Skin color, texture, turgor normal. No rashes or lesions. Eyes: Anicteric sclera. Pupils are equally round and reactive to light. Extraocular movements are intact. Lymph Nodes: No cervical, supraclavicular, axillary or inguinal adenopathy. Oropharynx: Lips, mucosa, and tongue normal. Back: No pain to percussion. Negative SLR test Lungs clear to auscultation, No wheezing or rhonchi Heart: RRR without murmur, gallop, or rubs. Abdomen soft, non-tender. No masses, organomegaly Extremities: No deformities. No edema Neuro: Gait and speech normal. Reflexes normal and symmetric. Muscular strength intact. Sensation grossly intact. Rectal: Deferred : Deferred LABS: Glucose (mg/dL) Date Value 11/15/2014 87 Potassium (mmol/L) Date Value 11/15/2014 5.0 Sodium (mmol/L) Date Value 11/15/2014 137 Chloride (mmol/L) Date Value 11/15/2014 103 CO2 (mmol/L) Date Value 11/15/2014 21 Creatinine (mg/dL) Date Value 11/15/2014 1.13 BUN (mg/dL) Date Value 11/15/2014 15 Anion Gap (mmol/L) Date Value 11/15/2014 13 Calcium (mg/dL) Date Value 11/15/2014 8.6 Protein, Total (g/dL) Date Value 11/15/2014 5.6 Albumin (g/dL) Date Value 11/15/2014 3.4 Bilirubin, Total (mg/dL) Date Value 11/15/2014 <0.2 Alkaline Phosphatase (U/L) Date Value 11/15/2014 43 AST (U/L) Date Value 11/15/2014 24 ALT (U/L) Date Value 11/15/2014 18 WBC Date Value Ref Range Status 07/27/2022 8.95 3.70 - 11.00 k/uL Final RBC Date Value Ref Range Status 07/27/2022 4.60 3.90 - 5.20 m/uL Final Hemoglobin Date Value Ref Range Status 07/27/2022 13.0 11.5 - 15.5 g/dL Final Hematocrit Date Value Ref Range Status (more content not included)... Normal [facility] Ferritin SerPl-mCncon 2022 Ferritin [Mass/Vol] 104.0 ng/mL Normal 14.7-205.1 [facility] Comment on above: Order Comment: Speci men Type: BLOOD SPECIMEN Ordering Facility: [facility] Address: [address] Performed By: #### 5 0190-8, 2275-4 #### [facility] CLIA [id number] [address] [place] [address] [place] Iron and Iron binding capaci ty panelon 07-27-2022 Iron [Mass/Vol] 43 ug/dL Normal 41-186 [facility] Comment on above: Order Comment: Speci men Type: BLOOD SPECIMEN Ordering Facility: [facility] Address: [address] [place], [place] [address] Performed By: #### 5 0190-8, 2275- #### [facility] CLIA [id number] [address] [place] [address] [place] Iron binding capacity [Mass/Vol] 265 ug/dL Normal 232 -386 [facility] Comment on above: Order Comment: Speci men Type: BLOOD SPECIMEN Ordering Facility: [facility] Address: [address] Performed By: #### 5 0190-8, 2275-4 #### [facility] CLIA [id number] [address] [place] [address] [place] Iron/TIBC [Molar ratio] 16.2 % Normal 15.0-57.0 [facility] Comment on above: Order Comment: Speci men Type: BLOOD SPECIMEN Ordering Facility: [facility] Address: [address] Performed By: #### 5 0190-8, 2275-4 #### [facility] CLIA [id number] [address] [facility] [id number] [place] Retics #on 07-27-2022 Reticulocytes (Bld) [#/Vol] 0.04313 10*3/uL Normal 0.0 18-0.100 [facility] Comment on above: Order Comment: Dayana soliz Type: BLOOD SPECIMEN Ordering Facility: [facility] Address: [address] [place] [address] Performed By: #### 1 4196-0, 89977-4 #### [facility] [place] [id number] [address] [place] [address] Reticulocytes (Bld) [#/Vol]o n 07-27-2022 Reticulocytes/100 RBC (Bld) 0.9 % Normal 0.4-2.0 [facility] Comment on above: Order Comment: Dayana soliz Type: BLOOD SPECIMEN Ordering Facility: [facility] Address: [address] [place] [address] Performed By: #### 1 4196-0, 70729-6 #### [facility] IA [id number] [address] [place] [address] Umberto 07-26-2022 L Specimen: [id number] Received: 07/26/22 Status: PIYUSH Jake Num: [id number] Spec Type: Surgical Subm Dr: Jeyson Diaz MD Tissues: A Stomach - Biopsy/Polyp (GASTRIC ULCER) Procedures: HE/2, Gross/Micro L4, AE1-AE3, H PYLORI Age/ Patient Sex Location Account Attending Physician Tangela Trinidad 82/F [id number] Jeyson Diaz MD SPEC NUM: [id number] RECD: 07/26/22 STATUS: PIYUSH JOSEPH NUM: [id number] JOSE: 07/26/22 [facility] DR: Jeyson Diaz MD ENTERED: 07/26/22 [facility] DR: ANDRA TYPE: Surgical DEPT: S ORDERED: HE/2, Gross/Micro L4, AE1-AE3, H PYLORI ORDERED: HE/2, Gross/Micro L4, AE1-AE3, H PYLORI Pathological Diagnosis Stomach, ulcer, biopsy: - Gastric mucosa with mild active chronic gastritis and focal ulceration. - No evidence of intestinal metaplasia or dysplasia seen. - Negative for H. pylori microorganisms. Clinical Information SHELLY Gross Description Received in formalin labeled with the patient's name, number and gastric ulcer are five fragments of soft bal tissue averaging 0.6 cm. Entirely submitted in one cassette labeled A1. Microscopic Description Two glass slides with H E stained material have been examined. Immunohistochemical stain for Helicobacter pylori is requested after examination of the H E sections. Immunostain for H. pylori is negative. AE1/AE is negative for carcinoma cells. The microscopic findings support the above pathologic diagnosis. The use of one or more reagents in the above tests is regulated as an analyte specific Specimen: [id number] Received: 07/26/22 Status: PIYUSH Joseph Num: [id number] Spec Type: Surgical Subm Dr: Jeyson Diaz MD Tissues: A Stomach - Biopsy/Polyp (GASTRIC ULCER) Procedures: HE/2, Gross/Micro L4, AE1-AE3, H PYLORI Patient: Tangela Trinidad [id number] (Continued) Specimen: [id number] Received: 07/26/22 (Continued) Microscopic Description (Continued) Signed (signature on file) Fred Wilson MD 07/27/22 1415 Specimen: [id number] Received: 07/26/22 Status: PIYUSH Joseph Num: [id number] Spec Type: Surgical Subm Dr: Jeyson Diaz MD Tissues: A Stomach - Biopsy/Polyp (GASTRIC ULCER) Procedures: HE/2, Gross/Micro L4, AE1-AE3, H PYLORI Patient: Tangela Trinidad [id number] (Continued) Specimen: [id number] Received: 07/26/22 (Continued) Microscopic Description (Continued) reagent (ASR). The performance characteristics were determined by the Laboratory of [facility]. Immunohistochemistry assays have not been validated on decalcified tissue. Results should be interpreted with caution given the possibility of false negative results on decalcified specimens. They have not been cleared by the US Food and Drug Administration. The FDA has determined that such clearance or approval is not necessary. CPT Codes 94747,46501, 58594 Specimen: [id number] Received: 07/26/22 Status: PIYUSH Joseph Num: [id number] Spec Type: Surgical Subm Dr: Jeyson Diaz MD Tissues: A Stomach - Biopsy/Polyp (GASTRIC ULCER) Procedures: HE/2, Gross/Micro L4, AE1-AE3, H PYLORI Patient: Tangela Trinidad Jocelyn [id number] (Continued) Signed (signature on file) Fred Wilson MD 07/27/22 1415 [facility] COVID-19 Antigenon 3 COVID-19 Antigen Healthcare Worker?: N Reference Range: Negative Negative results, from patients with symptom onset beyond five days, should be treated as presumptive and confirmation with a molecular assay, if necessary, for patient management, may be performed. Negative results do not rule out COVID-19 and should not be used as the sole basis for treatment or patient management decisions, including infection control decisions. Negative results should be considered in the context of a patient's recent exposures, history and the presence of clinical signs and symptoms consistent with COVID-19. The Britta SARS Antigen DB does not differentiate between SARS-CoV and SARS-CoV-2. This test was developed and its performance characteristic determined by [employer] and validated at [facility]. This test has not been FDA cleared or approved. This test has been authorized by FDA under an Emergency Use Authorization (EUA). This test has been validated in accordance with the FDA's Guidance Document (Policy for Diagnostics Testing in Laboratories Certified to Perform High Complexity Testing under CLIA prior to Emergency Use Authorization for Coronavirus Disease-2019 during the Public Health Emergency) issued on October 11, 2019. This test is only authorized for the duration of time the declaration that circumstances exist justifying the authorization of the emergency use of in vitro diagnostic tests for detection of SARS-CoV-2 virus and/or diagnosis of COVID-19 infection under section 564(b)(1) of the Act, 21 U.S.C. 360bbb-3(b)(1), unless the authorization is terminated or revoked sooner. SARS-CoV+SARS-CoV-2 (COVID-19) Ag [Presence] in Respiratory specimen by Rapid immunoassay Negative for SARS Antigen by DB PERFORMED BY: [place] [address] PATHOLOGIST HOSPICE COORDINATOR SPEEDY GRAY M.D. Normal [facility] Comment on above: Performed By: #### C OVID-19 BRITTA, SOFIANEG #### [address] COVID-19 SOFIAOrdered By: Brandy Diaz on 07-22-2022 SARS-CoV+SARS-CoV-2 (COVID-1 9) Ag IA.rapid Ql (Resp) Negative Negative [facility] Comment on above: This is a duplicate Britta SARS Antigen (DB) result to be used for statistical tracking purpose only. No Panel InformationOrdered By: Jeyson Diaz on 07-22-2022 SARS Antigen (LFIA) [facility] Britta Ag Negativeon 07-22-19 Britta Ag Negative Negative Normal Negative [facility] Comment on above: Result Comment: This is a duplicate Britta SARS Antigen (DB) result to be used for statistical tracking purpose only. PERFORMED BY: [facility] [address] [place] [address] PATHOLOGIST HOSPICE COORDINATOR SPEEDY GRAY M.D. Performed By: #### C OVID-19 BRITTA, SOFIANEG #### [facility] [address] CNSWon 06-02-2022 CNSW Social Work (HEMASA) TANGELA TRINIDAD ([id number]) 1940 F Date Time Provider Department 06/02/22 MARCIA ALEXANDER During your visit today, we recorded the following information about you: MONY Mart 06/02/2022 3:17 PM Signed Patient appears on the First Time Treatment List for a non-oncology treatment. No psychosocial assessment is indicated. KAYLEY Mart-Aida Allergies As of Date: 06/02/2022 Noted Allergy Reaction CEPHALOSPORINS 10/23/2014 16 - Unknown MACRODANTIN (NITROFURANTOIN MACRO*10/11/2018 2 - Rash 9 - Itching PENICILLINS 11/15/2014 4 - Hives POVIDONE-IODINE 06/21/2019 16 - Unknown [id number] REDUCTASE INHIBIT*01/05/2018 16 - Unknown SULFA (SULFONAMIDE ANTIBIOTICS) 11/15/2014 4 - Hives VANCOMYCIN 10/11/2018 2 - Rash 9 - Itching Date Reviewed: 05/18/2022 Reviewed by: Lyla Beasley - Fully Assessed Prescriptions as of 06/02/2022 - diclofenac, EC, (VOLTAREN) 75 mg EC tablet Take 75 mg by mouth twice daily. - albuterol HFA (PROVENTIL HFA, VENTOLIN HFA) 90 mcg/actuation inhaler INHALE 2 PUFFS EVERY 4 HOURS NEEDED FOR SHORTNESS OF BREATH OR WHEEZING - aspirin/acetaminophen/caffeine (EXCEDRIN EXTRA STRENGTH ORAL) Take by mouth. - RED YEAST RICE ORAL Take by mouth. - vit A/vit C/vit E/zinc/copper (PRESERVISION AREDS ORAL) Take by mouth. - famotidine (PEPCID) 20 mg tablet Take 20 mg by mouth twice daily. - amLODIPine (NORVASC) 5 mg tablet TK 1 T PO QD - levothyroxine (SYNTHROID) 112 mcg tablet 0.125 mcg. - CA/D3/MAG OX/ZINC/TELEGRAPH PLANT MAINTAINER/MEREDITH/BOR (CALCIUM 600+D3 PLUS ORAL) Take 1,200 mg by mouth once daily. - atenolol (TENORMIN) 25 mg tablet Take 1 tablet by mouth once daily. Problem List As Of Date 06/02/2022 Noted Resolved Anemia [D64.9] 11/15/2014 Iron deficiency [E61.1] 11/15/2014 Encounter Status:Closed by MARCIA ALEXANDER on 06/02/22 [facility] Shannan 05-25-2022 ASIF Telephone (HEMTSA) TANGELA TRINIDAD ([id number]) 1940 F Date Time Provider Department 05/25/22 FINANCIAL NAVIGATOR DAMON BREWER During your visit today, we recorded the following information about you: Mohit Lo [facility] 05/25/2022 3:35 PM Signed 1st report of treatment-non oncology regimen (Monoferric) Patient holds Medicare coverage. No FA available at this time. Allergies As of Date: 05/25/2022 Noted Allergy Reaction CEPHALOSPORINS 10/23/2014 16 - Unknown MACRODANTIN (NITROFURANTOIN MACRO*10/11/2018 2 - Rash 9 - Itching PENICILLINS 11/15/2014 4 - Hives POVIDONE-IODINE 06/21/2019 16 - Unknown [id number] REDUCTASE INHIBIT*01/05/2018 16 - Unknown SULFA (SULFONAMIDE ANTIBIOTICS) 11/15/2014 4 - Hives VANCOMYCIN 10/11/2018 2 - Rash 9 - Itching Date Reviewed: 05/18/2022 Reviewed by: Lyla Beasley - Fully Assessed Reason for Visit: Benefits Investigation [4098] Prescriptions as of 05/25/2022 - diclofenac, EC, (VOLTAREN) 75 mg EC tablet Take 75 mg by mouth twice daily. - albuterol HFA (PROVENTIL HFA, VENTOLIN HFA) 90 mcg/actuation inhaler INHALE 2 PUFFS EVERY 4 HOURS NEEDED FOR SHORTNESS OF BREATH OR WHEEZING - aspirin/acetaminophen/caffeine (EXCEDRIN EXTRA STRENGTH ORAL) Take by mouth. - RED YEAST RICE ORAL Take by mouth. - vit A/vit C/vit E/zinc/copper (PRESERVISION AREDS ORAL) Take by mouth. - famotidine (PEPCID) 20 mg tablet Take 20 mg by mouth twice daily. - amLODIPine (NORVASC) 5 mg tablet TK 1 T PO QD - levothyroxine (SYNTHROID) 112 mcg tablet 0.125 mcg. - CA/D3/MAG OX/ZINC/TELEGRAPH PLANT MAINTAINER/MEREDITH/BOR (CALCIUM 600+D3 PLUS ORAL) Take 1,200 mg by mouth once daily. - atenolol (TENORMIN) 25 mg tablet Take 1 tablet by mouth once daily. Facility-Administered Medications as of 05/25/2022 - NaCl 0.9% iv infusion - diphenhydrAMINE 50 mg injection (BENADRYL) - hydrocortisone sodium succinate (PF) 100 mg injection (Solu-CORTEF) - EPINEPHrine 1 mg/mL (1 mL) 0.3 mg injection Problem List As Of Date 05/25/2022 Noted Resolved Anemia [D64.9] 11/15/2014 Iron deficiency [E61.1] 11/15/2014 Encounter Status:Closed by MOHIT SANTOS on 05/25/22 [facility] CNOVSPon 05-18-2022 CNOVSP Visit (SP) Office ([facility]) TANGELA TRINIDAD ([id number]) 1940 F Date Time Provider Department 05/18/22 4:00 PM MAVIS SANTIAGO During your visit today, we recorded the following information about you: Temperature Pulse Respiration Blood pressure 98.1 degrees 78/minute 16/minute 122/78 Weight 68 kg Mavis Santiago MD 05/18/2022 4:08 PM Signed PATIENT NAME: Tangela Trinidad CLINIC NO.: [id number] ATTENDING PHYSICIAN: Mavis Santiago MD DATE OF SERVICE: May 18, [address] Kvng Melgar here is an update on a follow up visit on female Tangela Trinidad at the clinic 05/18/2022 Diagnosis: SHELLY Treatment History: IV Iron 10/2018 HPI: Tangela Trinidad is a 82 year old year old female here for follow up. Previously saw Dr. Salcedo with recurrent SHELLY and source unknown. Last colonoscopy 2012 which was normal. Denies any changes in her bowel habits and also denies any epigastric pain and or change in bowel habits. Denies any increased NSAID use. She had COVID in January and 03/2022 and since then has noted increasing fatigue. Recent labs with worsening anemia and also decreased Iron stores, She does not tolerate Oral Iron. PAST MEDICAL HISTORY Diagnosis Date Anemia CVI (common variable immunodeficiency) (HCC) GERD (gastroesophageal reflux disease) HTN (hypertension) Hyperlipidemia Hypothyroidism IBS (irritable bowel syndrome) Social History Tobacco Use Smoking status: Former Smokeless tobacco: Never Substance Use Topics Alcohol use: Not Currently Drug use: Never No family history on file. Past medical, social and family history reviewed without any changes. REVIEW OF SYSTEMS GENERAL: No weight loss, malaise or fevers. No night sweats. HEENT: Negative for headaches, No changes in hearing or vision, no nose bleeds or other nasal problems. RESPIRATORY: Negative for cough, wheezing and shortness of breath CARDIOVASCULAR: Negative for chest pain, leg swelling and palpitations GI: Negative for abdominal discomfort, blood in stools or black stools and change in bowel habits : Negative for dysuria, frequency and incontinence MUSCULOSKELETAL: Negative for joint pain or swelling, back pain, and muscle pain. SKIN: Negative for lesions, rash, and itching. HEMATOLOGY/LYMPHOLOGY Negative for prolonged bleeding, bruising easily, and swollen nodes. NEURO: Negative for numbness or tingling of hands/feet. No weakness. PHYSICAL EXAMINATION: BP 122/78 Pulse 78 Temp (Src) 98.1 (Temporal) Resp 16 Wt 150 lb (68.0kg) SpO2 98% Wt 68 kg (150 lb) BMI 29.29 kg/m2 Last 3 Encounter Wt Readings: Date: Wt: 05/18/2022 68 kg (150 lb) 01/10/2019 66 kg (145 lb 6.4 oz) 10/11/2018 65.1 kg (143 lb 9.6 oz) General appearance:ECOG PERFORMANCE STATUS: 1- Restricted in physically strenuous activity. Carries out light duty. Patient in NAD. Skin: Skin color, texture, turgor normal. No rashes or lesions. Eyes: Anicteric sclera. Pupils are equally round and reactive to light. Extraocular movements are intact. Lymph Nodes: No cervical, supraclavicular, axillary or inguinal adenopathy. Oropharynx: Lips, mucosa, and tongue normal. Back: No pain to percussion. Negative SLR test Lungs clear to auscultation, No wheezing or rhonchi Heart: RRR without murmur, gallop, or rubs. Abdomen soft, non-tender. No masses, organomegaly Extremities: No deformities. No edema Neuro: Gait and speech normal. Reflexes normal and symmetric. Muscular strength intact. Sensation grossly intact. Rectal: Deferred : Deferred LABS: Glucose (mg/dL) Date Value 11/15/2014 87 Potassium (mmol/L) Date Value 11/15/2014 5.0 Sodium (mmol/L) Date Value 11/15/2014 137 Chloride (mmol/L) Date Value 11/15/2014 103 CO2 (mmol/L) Date Value 11/15/2014 21 Creatinine (mg/dL) Date Value 11/15/2014 1.13 BUN (mg/dL) Date Value 11/15/2014 15 Anion Gap (mmol/L) Date Value 11/15/2014 13 Calcium (mg/dL) Date Value 11/15/2014 8.6 Protein, Total (g/dL) Date Value 11/15/2014 5.6 Albumin (g/dL) Date Value 11/15/2014 3.4 Bilirubin, Total (mg/dL) Date Value 11/15/2014 <0.2 Alkaline Phosphatase (U/L) Date Value 11/15/2014 43 AST (U/L) Date Value 11/15/2014 24 ALT (U/L) Date Value 11/15/2014 18 WBC Date Value Ref Range Status 05/14/2019 7.83 3.70 - 11.00 k/uL Final RBC Date Value Ref Range Status 05/14/2019 4.42 3.90 - 5.20 m/uL Final Hemoglobin Date Value Ref Range Status 05/14/2019 13.0 11.5 - 15.5 g/dL Final Hematocrit Date Value Ref Range Status 05/14/2019 39.9 36.0 - 46.0 % Final MCV Date Value Ref Range Status 05/14/2019 90.3 80.0 - 100.0 fL Final MCH Date Value Ref Range Status 05/14/2019 29.4 26.0 - 34.0 pG Final MCHC Date Value Ref Range Status 05/14/2019 32.6 30.5 - 36.0 g/dL Final RDW-CV Date Value Ref Range Status (more content not included)... Normal [facility] IMMUNOFIXATION(ELISE),PROTEIN ELEC(PE),[place] 05-06-2022 Albumin [Mass/Vol] 2.9 g/dL Normal 2.9-4.4 [facility] Comment on above: Performed By: #### I FEPEFL #### [facility] [address] [place], [place] [address] Dr. Yayo Gregg Albumin/Globulin [Mass ratio] 1.2 {ratio} Normal 0.7-1 .7 [facility] Comment on above: Performed By: #### I FEPEFL #### [facility] [address] [place], [place] [address] Dr. Yayo Gregg Gmhvw-0-Blkgvcrc 0.3 g/dL Normal 0.0-0.4 [facility] Comment on above: Performed By: #### I FEPEFL #### [facility] [address] [place] [address] Dr. Yayo Gregg Fveiu-5-Tneasble 0.7 g/dL Normal 0.4-1.0 [facility] Comment on above: Performed By: #### I FEPEFL #### [facility] [address] [place] [address] Dr. Yayo Gregg Beta Globulin 0.9 g/dL Normal 0.7-1.3 [facility] Comment on above: Performed By: #### I FEPEFL #### [facility] [address] [place] [address] [place] Lt Chains,S 39.9 mg/L Critically high 3.3-19.4 [facility] Comment on above: Performed By: #### I FEPEFL #### [facility] [address] [place] [address] Dr. Yayo Gregg Free Lambda Lt Chains,S 22.7 mg/L Normal 5.7-26.3 [facility] Comment on above: Performed By: #### I FEPEFL #### [facility] [address] [place] [address] Dr. Yayo Gregg Gamma Globulin 0.6 g/dL Normal 0.4-1.8 [facility] Comment on above: Performed By: #### I FEPEFL #### [facility] [address] [place] [address] Dr. Yayo Gregg Globulin (S) [Mass/Vol] 2.6 g/dL Normal 2.2-3.9 [facility] Comment on above: Performed By: #### I FEPEFL #### [facility] [address] [place] [address] Dr. Yayo Gregg Immunofixation Result, Serum Comment Normal [facility] Comment on above: Result Comment: No m onoclonality detected. Performed By: #### I FEPEFL #### [facility] [address] [place] [address] Dr. Yayo Gregg Immunoglobulin A, Qn, Serum 81 mg/dL Normal 64-422 [facility] Comment on above: Performed By: #### I FEPEFL #### [facility] [address] [place] [address] [address] Yayo Gregg Immunoglobulin G, Qn, Serum 547 mg/dL Critically low 586- 1602 [facility] Comment on above: Performed By: #### I FEPEFL #### [facility] [address] [place] [address] [address] Yayo Gregg Immunoglobulin M, Qn, Serum 92 mg/dL Normal 26-217 [facility] Comment on above: Performed By: #### I FEPEFL #### [facility] [address] [place] [address] Maurice/Lambda Ratio, S 1.76 Critically high 0.26-1.65 [facility] Comment on above: Performed By: #### I FEPEFL #### [facility] [address] [place] [address] Dr. Yayo Gregg M-Johan Not Observed Normal Not Observed [facility] Comment on above: Performed By: #### I FEPEFL #### [facility] [address] [place] [address] Dr. Yayo Gregg PDF . Normal [facility] Comment on above: Performed By: #### I FEPEFL #### [facility] [address] [place] [address] Dr. Yayo Gregg Please note: Comment Normal [facility] Comment on above: Result Comment: Prot ein electrophoresis scan will follow via computer, mail, or electrical contractor delivery. Performed By: #### I FEPEFL #### [facility] [address] [place] [address] Dr. Yayo Gregg Protein [Mass/Vol] 5.5 g/dL Critically low 6.0-8.5 [facility] Comment on above: Performed By: #### I FEPEFL #### [facility] [address] [place] [address] Dr. Yayo Gregg IMMUNOGLOBULINS IGA/IGM/IGG QUANTITATIVEon 05-05-2022 Immunoglobulin A, Qn, Serum 83 mg/dL Normal 64-422 [facility] Comment on above: Performed By: #### I MMUNGL #### [facility] [address] [place] [address] Dr. Yayo Gregg Immunoglobulin G, Qn, Serum 559 mg/dL Critically low 586- 1602 [facility] Comment on above: Performed By: #### I MMUNGL #### [facility] [address] [place] [address] Dr. Yayo Gregg Immunoglobulin M, Qn, Serum 93 mg/dL Normal 26-217 [facility] Comment on above: Performed By: #### I MMUNGL #### [facility] [address] [place] [address] Dr. Yayo Gregg CBC AUTO DIFFon 05-04-2022 BASO # 0.1 103/ul Normal 0.0-0.1 [facility] Comment on above: Performed By: #### I MMUNGL #### [facility] [address] [place] [address] Dr. Yayo Gregg Basophils/100 WBC (Bld) 0.9 % Normal 0.2-2.0 [facility] Comment on above: Performed By: #### I MMUNGL #### [facility] [address] [place] [address] Dr. Yayo Gregg EO # 0.7 103/ul Normal 0.0-0.7 [facility] Comment on above: Performed By: #### I MMUNGL #### [facility] [address] [place] [address] Dr. Yayo Gregg Eosinophils/100 WBC (Bld) 6.7 % Normal 0.9-7.0 [facility] Comment on above: Performed By: #### I MMUNGL #### [facility] [address] [place] [address] Dr. Yayo Gregg Erythrocyte distribution wid th (RBC) [Ratio] 15.6 % Critically high 11.0-15.0 [facility] Comment on above: Performed By: #### I MMUNGL #### [facility] [address] [place] [address] Dr. Yayo Gregg Hematocrit (Bld) [Volume fraction] 31.3 % Critically low 36.0-48.0 [facility] Comment on above: Performed By: #### I MMUNGL #### [facility] [address] [place] [address] Dr. Yayo Gregg Hemoglobin (Bld) [Mass/Vol] 10.0 g/dL Critically low 12.0 -16.0 [facility] Comment on above: Performed By: #### I MMUNGL #### [facility] [address] [place] [address] Dr. Yayo Gregg IG # 0.04 10e3/ul Critically high 0.00-0.03 [facility] Comment on above: Performed By: #### I MMUNGL #### [facility] [address] [place] [address] Dr. Yayo Gregg IG % 0.4 % Normal 0.0-0.5 [facility] Comment on above: Performed By: #### I MMUNGL #### [facility] [address] [place] [address] Dr. Yayo Gregg LYMPH # 2.9 103/ul Normal 1.2-3.8 [facility] Comment on above: Performed By: #### I MMUNGL #### [facility] [address] [place] [address] Dr. Yayo Gregg Lymphocytes/100 WBC (Bld) 29.6 % Normal 20.5-60.0 [facility] Comment on above: Performed By: #### I MMUNGL #### [facility] [address] [place] [address] Dr. Yayo Gregg MANUAL DIFF REQ NO Normal [facility] Comment on above: Performed By: #### I MMUNGL #### [facility] [address] [place] [address] Dr. Yayo Gregg MCH (RBC) [Entitic mass] 25.7 pg Critically low 26.7-34 .0 [facility] Comment on above: Performed By: #### I MMUNGL #### [facility] [address] [place] [address] Dr. Yayo Gregg MCHC (RBC) [Mass/Vol] 31.9 g/dL Normal 29.9-35.2 [facility] Comment on above: Performed By: #### I MMUNGL #### [facility] [address] [place] [address] Dr. Yayo Gregg MCV (RBC) [Entitic vol] 80.5 fL Critically low 81.0-99. 0 [facility] Comment on above: Performed By: #### I MMUNGL #### [facility] [address] [place] [address] Dr. Yayo Gregg MONO # 1.4 103/ul Critically high 0.3-0.8 [facility] Comment on above: Performed By: #### I MMUNGL #### [facility] [address] [place] [address] Dr. Yayo Gregg Monocytes/100 WBC (Bld) 14.5 % Critically high 1.7-12. 0 [facility] Comment on above: Performed By: #### I MMUNGL #### [facility] [address] [place] [address] Dr. Yayo Gregg NEUT # 4.7 103/ul Normal 1.4-6.5 [facility] Comment on above: Performed By: #### I MMUNGL #### [facility] [address] [place] [address] Dr. Yayo Gregg Neutrophils/100 WBC (Bld) 47.9 % Normal 43.0-75.0 [facility] Comment on above: Performed By: #### I MMUNGL #### [facility] [address] [place] [address] Dr. Yayo Gregg Platelet mean volume (Bld) [Entitic vol] 9.5 fL Normal 9.5-13.5 [facility] Comment on above: Performed By: #### I MMUNGL #### [facility] [address] [place] [address] Dr. Yayo Gregg PLT 457 103/ul Critically high 150-450 [facility] Comment on above: Performed By: #### I MMUNGL #### [facility] [address] [place] [address] Dr. Yayo Gregg RBC 3.89 106/ul Critically low 4.20-5.[address] [facility] Comment on above: Performed By: #### I MMUNGL #### [facility] [address] [place] [address] Dr. Yayo Gregg WBC 9.8 103/ul Normal 4.0-11.0 [facility] Comment on above: Performed By: #### I MMUNGL #### [facility] [address] [place] [address] Dr. Yayo Gregg FERRITINon 05-04-2022 Ferritin [Mass/Vol] 20.0 ng/mL Normal 8.0-252.0 [facility] Comment on above: Performed By: #### F ERR, FETIBC #### [facility] [address] [place] [address] Dr. Yayo Gregg IRON AND TIBCon 05-04-2022 % SATURATION 5.7 % Normal [facility] Comment on above: Performed By: #### F ERR, FETIBC #### [facility] [address] [place] [address] Dr. Yayo Gregg Iron [Mass/Vol] 18.0 ug/dL Critically low 50.0-170.0 [facility] Comment on above: Performed By: #### F ERR, FETIBC #### [facility] [address] [place] [address] Dr. Yayo Gregg TIBC DIRECT 318.0 ug/dL Normal 250.0-450.0 [facility] Comment on above: Performed By: #### F ERR, FETIBC #### [facility] [address] [place] [address] Dr. Yayo Gregg PROF CHEM 8 (BAS METB)on Anion gap [Moles/Vol] 11.7 mmol/L Normal [facility] Comment on above: Performed By: #### I MMUNGL #### [facility] [address] [address] [address] Yayo Gregg Calcium [Mass/Vol] 8.1 mg/dL Critically low 8.5-10.1 [facility] Comment on above: Performed By: #### I MMUNGL #### [facility] [address] [address] [address] Yayo Gregg Chloride [Moles/Vol] 100 mmol/L Normal 98-107 [facility] Comment on above: Performed By: #### I MMUNGL #### [facility] [address] [address] [address] Yayo Gregg CO2 [Moles/Vol] 25.7 mmol/L Normal 21.0-32.0 [facility] Comment on above: Performed By: #### I MMUNGL #### [facility] [address] [address] [address] Yayo Gregg Creatinine [Mass/Vol] 1.06 mg/dL Critically high 0.55-1.02 [facility] Comment on above: Performed By: #### I MMUNGL #### [facility] [address] [address] [address] Yayo Gregg EGFR-AF EQUATORIAL GUINEAN =60 Normal >=60 [facility] Comment on above: Performed By: #### I MMUNGL #### [facility] [address] [address] [address] Yayo Gregg EGFR-NON AF EQUATORIAL GUINEAN 49 mL/min/1.73m2 Critically low >=60 [facility] Comment on above: Performed By: #### I MMUNGL #### [facility] [address] [address] [address] Yayo Gregg Glucose [Mass/Vol] 121 mg/dL Critically high 74-106 [facility] Comment on above: Performed By: #### I MMUNGL #### [facility] [address] [address] [address] Yayo Gregg Potassium [Moles/Vol] 4.4 mmol/L Normal 3.5-5.1 [facility] Comment on above: Performed By: #### I MMUNGL #### [facility] [address] [place] [address] Dr. Yayo Gregg Sodium [Moles/Vol] 133 mmol/L Critically low 136-145 [facility] Comment on above: Performed By: #### I MMUNGL #### [facility] [address] [place] [address] Dr. Yayo Gregg Urea nitrogen [Mass/Vol] 16.0 mg/dL Normal 7.0-18.0 [facility] Comment on above: Performed By: #### I MMUNGL #### [facility] [address] [place] [address] Dr. Yayo Gregg Urea nitrogen/Creatinine [Mass ratio] 15.1 mg/mg Normal [facility] Comment on above: Performed By: #### I MMUNGL #### [facility] [address] [place] [address] Dr. Yayo Gregg T PROTEIN SERUMon 05-04-2022 Protein [Mass/Vol] 6.0 g/dL Critically low 6.4-8.2 [facility] Comment on above: Performed By: #### I MMUNGL #### [facility] [address] [place] [address] Dr. Yayo Gregg TSHon 05-04-2022 TSH 1.715 uIU/mL Normal 0.358-3.740 [facility] Comment on above: Performed By: #### I MMUNGL #### [facility] [address] [place] [address] Dr. Yayo rGegg CBC AUTO DIFFon 03-26-2022 BASO # 0.1 103/ul Normal 0.0-0.1 [facility] Comment on above: Performed By: #### C BC #### [facility] [address] [place] [address] Dr. Yayo Gregg Basophils/100 WBC (Bld) 1.0 % Normal 0.2-2.0 [facility] Comment on above: Performed By: #### C BC #### [facility] [address] [place] [address] Dr. Yayo Gregg EO # 0.8 103/ul Critically high 0.0-0.[address] [facility] Comment on above: Performed By: #### C BC #### [facility] [address] [place] [address] Dr. Yayo Gregg Eosinophils/100 WBC (Bld) 7.6 % Critically high 0.9-7 .0 [facility] Comment on above: Performed By: #### C BC #### [facility] [address] [place] [address] Dr. Yayo Gregg Erythrocyte distribution wid th (RBC) [Ratio] 15.1 % Critically high 11.0-15.0 [facility] Comment on above: Performed By: #### C BC #### [facility] [address] [place] [address] Dr. Yayo Gregg Hematocrit (Bld) [Volume fraction] 32.0 % Critically low 36.0-48.0 [facility] Comment on above: Performed By: #### C BC #### [facility] [address] [place] [address] Dr. Yayo Gregg Hemoglobin (Bld) [Mass/Vol] 10.4 g/dL Critically low 12.0 -16.0 [facility] Comment on above: Performed By: #### C BC #### [facility] [address] [place] [address] Dr. Yayo Gregg IG # 0.05 10e3/ul Critically high 0.00-0.03 [facility] Comment on above: Performed By: #### C BC #### [facility] [address] [place] [address] Dr. Yayo Gregg IG % 0.5 % Normal 0.0-0.5 [facility] Comment on above: Performed By: #### C BC #### [facility] [address] [place] [address] Dr. Yayo Gregg LYMPH # 2.9 103/ul Normal 1.2-3.8 [facility] Comment on above: Performed By: #### C BC #### [facility] [address] [address] [address] Yayo Gregg Lymphocytes/100 WBC (Bld) 27.7 % Normal 20.5-60.0 [facility] Comment on above: Performed By: #### C BC #### [facility] [address] [place] [address] Dr. Yayo Gregg MANUAL DIFF REQ NO Normal [facility] Comment on above: Performed By: #### C BC #### [facility] [address] [place] [address] Dr. Yayo Gregg MCH (RBC) [Entitic mass] 26.5 pg Critically low 26.7-34 .0 [facility] Comment on above: Performed By: #### C BC #### [facility] [address] [place] [address] Dr. Yayo Gregg MCHC (RBC) [Mass/Vol] 32.5 g/dL Normal 29.9-35.2 [facility] Comment on above: Performed By: #### C BC #### [facility] [address] [place] [address] Dr. Yayo Gregg MCV (RBC) [Entitic vol] 81.4 fL Normal 81.0-99.0 [facility] Comment on above: Performed By: #### C BC #### [facility] [address] [place] [address] Dr. Yayo Gregg MONO # 1.3 103/ul Critically high 0.3-0.[address] [facility] Comment on above: Performed By: #### C BC #### [facility] [address] [place] [address] Dr. Yayo Gregg Monocytes/100 WBC (Bld) 12.5 % Critically high 1.7-12. 0 [facility] Comment on above: Performed By: #### C BC #### [facility] [address] [place] [address] Dr. Yayo Gregg NEUT # 5.2 103/ul Normal 1.4-6.5 [facility] Comment on above: Performed By: #### C BC #### [facility] [address] [address] [address] Yayo Gregg Neutrophils/100 WBC (Bld) 50.7 % Normal 43.0-75.0 [facility] Comment on above: Performed By: #### C BC #### [facility] [address] [address] [address] Yayo Gregg Platelet mean volume (Bld) [Entitic vol] 9.6 fL Normal 9.5-13.5 [facility] Comment on above: Performed By: #### C BC #### [facility] [address] [address] [address] Yayo Gregg PLT 409 103/ul Normal 150-450 [facility] Comment on above: Performed By: #### C BC #### [facility] [address] [place] [address] Dr. Yayo Gregg RBC 3.93 106/ul Critically low 4.20-5.40 [facility] Comment on above: Performed By: #### C BC #### [facility] [address] [place] [address] Dr. Yayo Gregg WBC 10.3 103/ul Normal 4.0-11.0 [facility] Comment on above: Performed By: #### C BC #### [facility] [address] [place] [address] Dr. Yayo Gregg FERRITINon 03-26-2022 Ferritin [Mass/Vol] 22.0 ng/mL Normal 8.0-252.0 [facility] Comment on above: Performed By: #### I MMUNGL #### [facility] [address] [place] [address] Dr. Yayo Gregg CBC AUTO DIFFon 02-09-2022 BASO # 0.1 103/ul Normal 0.0-0.1 [facility] Comment on above: Performed By: #### C BC #### [facility] [address] [place] [address] Dr. Yayo Gregg Basophils/100 WBC (Bld) 0.7 % Normal 0.2-2.0 [facility] Comment on above: Performed By: #### C BC #### [facility] [address] [place] [address] Dr. Yayo Gregg EO # 0.9 103/ul Critically high 0.0-0.[address] [facility] Comment on above: Performed By: #### C BC #### [facility] [address] [place] [address] Dr. Yayo Gregg Eosinophils/100 WBC (Bld) 7.5 % Critically high 0.9-7 .0 [facility] Comment on above: Performed By: #### C BC #### [facility] [address] [place] [address] Dr. Yayo Gregg Erythrocyte distribution wid th (RBC) [Ratio] 15.1 % Critically high 11.0-15.0 [facility] Comment on above: Performed By: #### C BC #### [facility] [address] [place] [address] Dr. Yayo Gregg Hematocrit (Bld) [Volume fraction] 32.5 % Critically low 36.0-48.0 [facility] Comment on above: Performed By: #### C BC #### [facility] [address] [place] [address] Dr. Yayo Gregg Hemoglobin (Bld) [Mass/Vol] 10.9 g/dL Critically low 12.0 -16.0 [facility] Comment on above: Performed By: #### C BC #### [facility] [address] [place] [address] Dr. Yayo Gregg IG # 0.16 10e3/ul Critically high 0.00-0.03 [facility] Comment on above: Performed By: #### C BC #### [facility] [address] [place] [address] Dr. Yayo Gregg IG % 1.3 % Critically high 0.0-0.5 [facility] Comment on above: Performed By: #### C BC #### [facility] [address] [place] [address] Dr. Yayo Gregg LYMPH # 2.9 103/ul Normal 1.2-3.8 [facility] Comment on above: Performed By: #### C BC #### [facility] [address] [place] [address] Dr. Yayo Gregg Lymphocytes/100 WBC (Bld) 24.0 % Normal 20.5-60.0 [facility] Comment on above: Performed By: #### C BC #### [facility] [address] [place] [address] Dr. Yayo Gregg MANUAL DIFF REQ NO Normal [facility] Comment on above: Performed By: #### C BC #### [facility] [address] [place] [address] Dr. Yayo Gregg MCH (RBC) [Entitic mass] 27.2 pg Normal 26.7-34.0 [facility] Comment on above: Performed By: #### C BC #### [facility] [address] [place] [address] Dr. Yayo Gregg MCHC (RBC) [Mass/Vol] 33.5 g/dL Normal 29.9-35.2 [facility] Comment on above: Performed By: #### C BC #### [facility] [address] [place] [address] Dr. Yayo Gregg MCV (RBC) [Entitic vol] 81.0 fL Normal 81.0-99.0 [facility] Comment on above: Performed By: #### C BC #### [facility] [address] [place] [address] Dr. Yayo Gregg MONO # 1.6 103/ul Critically high 0.3-0.8 [facility] Comment on above: Performed By: #### C BC #### [facility] [address] [place] [address] Dr. Yayo Gregg Monocytes/100 WBC (Bld) 13.4 % Critically high 1.7-12. 0 [facility] Comment on above: Performed By: #### C BC #### [facility] [address] [place] [address] Dr. Yayo Gregg NEUT # 6.3 103/ul Normal 1.4-6.5 [facility] Comment on above: Performed By: #### C BC #### [facility] [address] [address] [address] Yayo Gregg Neutrophils/100 WBC (Bld) 53.1 % Normal 43.0-75.0 [facility] Comment on above: Performed By: #### C BC #### [facility] [address] [address] [address] Yayo Gregg Platelet mean volume (Bld) [Entitic vol] 9.4 fL Critically low 9.5-13.5 [facility] Comment on above: Performed By: #### C BC #### [facility] [address] [place] [address] Dr. Yayo Gregg PLT 426 103/ul Normal 150-450 [facility] Comment on above: Performed By: #### C BC #### [facility] [address] [place] [address] Dr. Yayo Gregg RBC 4.01 106/ul Critically low 4.20-5.40 [facility] Comment on above: Performed By: #### C BC #### [facility] [address] [place] [address] Dr. Yayo Gregg WBC 11.9 103/ul Critically high 4.0-11.0 [facility] Comment on above: Performed By: #### C BC #### [facility] [address] [place] [address] Dr. Yayo Gregg FERRITINon 02-09-2022 Ferritin [Mass/Vol] 36.0 ng/mL Normal 8.0-252.0 [facility] Comment on above: Performed By: #### V ITB12, FETIBC, FERR #### [facility] [address] [place] [address] Dr. Yayo Gregg IRON AND TIBCon 02-09-2022 % SATURATION 5.2 % Normal [facility] Comment on above: Performed By: #### V ITB12, FETIBC, FERR #### [facility] [address] [place] [address] Dr. Yayo Gregg Iron [Mass/Vol] 16.0 ug/dL Critically low 50.0-170.0 [facility] Comment on above: Performed By: #### V ITB12, FETIBC, FERR #### [facility] [address] [place] [address] Dr. Yayo Gregg TIBC DIRECT 305.0 ug/dL Normal 250.0-450.0 [facility] Comment on above: Performed By: #### V ITB12, FETIBC, FERR #### [facility] [address] [place] [address] Dr. Yayo Gregg VITAMIN B12on 02-09-2022 Cobalamin (Vitamin B12) [Mass/Vol] 819.0 pg/mL Normal 193.0-986.0 [facility] Comment on above: Performed By: #### V ITB12, FETIBC, FERR #### [facility] [address] [place] [address] Dr. Yayo Gregg BNPon 01-27-2022 Natriuretic peptide B (Bld) [Mass/Vol] 270.0 pg/mL Normal <=1,800.0 [facility] Comment on above: Performed By: #### I MMUNGL #### [facility] [address] [place] [address] Dr. Yayo Gregg CARDIAC TARAN ADMITon 022 CK [Catalytic activity/Vol] 143 U/L Normal 26-192 The [facility] Comment on above: Performed By: #### I MMUNGL #### [facility] [address] [place] [address] Dr. Yayo Gregg CK.MB [Mass/Vol] 2.66 ng/mL Normal <=3.60 The [facility] Comment on above: Performed By: #### I MMUNGL #### [facility] [address] [place] [address] Dr. Yayo Gregg HSTROP 4.0 pg/mL Normal 4.0-51.3 The [facility]spital Comment on above: Result Comment: CUT- OFF POINTS HAVE BEEN ESTABLISHED BASED ON THE FOURTH UNIVERSAL DEFINITIONS OF MYOCARDIAL INFARCTION. THE UPPER REFERENCE LIMIT (URL) OF TROPONIN, DEFINED THE 99TH PERCENTILE OF cTnI DISTRIBUTION IN A REFERENCE POPULATION, HAS BEEN CONFIRMED THE DECISION THRESHOLD FOR ND DIAGNOSIS. Performed By: #### I MMUNGL #### [facility] [address] [place] [address] Dr. Yayo Gregg CARA 113 ng/mL Critically high 9-[address] [facility] Comment on above: Performed By: #### I MMUNGL #### [facility] [address] [place] [address] Dr. Yayo Gregg CBC AUTO DIFFon 01-27-2022 BASO # 0.1 103/ul Normal 0.0-0.1 The [facility] Comment on above: Performed By: #### C BC #### [facility] [address] [place] [address] Dr. Yayo Gregg Basophils/100 WBC (Bld) 0.7 % Normal 0.2-2.0 [facility] Comment on above: Performed By: #### C BC #### [facility] [address] [place] [address] Dr. Yayo Gregg EO # 1.1 103/ul Critically high 0.0-0.[address] [facility] Comment on above: Performed By: #### C BC #### [facility] [address] [place] [address] Dr. Yayo Gregg Eosinophils/100 WBC (Bld) 7.3 % Critically high 0.9-7 .0 The [facility] Comment on above: Performed By: #### C BC #### [facility] [address] [place] [address] Dr. Yayo Gregg Erythrocyte distribution wid th (RBC) [Ratio] 13.8 % Normal 11.0-15.0 The [facility] Comment on above: Performed By: #### C BC #### [facility] [address] [place] [address] Dr. Yayo Gregg Hematocrit (Bld) [Volume fraction] 34.4 % Critically low 36.0-48.0 The [facility] Comment on above: Performed By: #### C BC #### [facility] [address] [address] [address] Yayo Gregg Hemoglobin (Bld) [Mass/Vol] 11.3 g/dL Critically low 12.0 -16.0 The [facility] Comment on above: Performed By: #### C BC #### [facility] [address] [address] [address] Yayo Gregg IG # 0.09 10e3/ul Critically high 0.00-0.03 [facility] Comment on above: Performed By: #### C BC #### [facility] [address] [address] [address] Yayo Gregg IG % 0.6 % Critically high 0.0-0.[address] [facility] Comment on above: Performed By: #### C BC #### [facility] [address] [place] [address] Dr. Yayo Gregg LYMPH # 2.5 103/ul Normal 1.2-3.8 The [facility] Comment on above: Performed By: #### C BC #### [facility] [address] [place] [address] Dr. Yayo Grgeg Lymphocytes/100 WBC (Bld) 16.6 % Critically low 20.5-6 0.0 [facility] Comment on above: Performed By: #### C BC #### [facility] [address] [place] [address] Dr. Yayo Gregg MANUAL DIFF REQ NO Normal The [facility] Comment on above: Performed By: #### C BC #### [facility] [address] [place] [address] Dr. Yayo Gregg MCH (RBC) [Entitic mass] 26.7 pg Normal 26.7-34.0 The [facility] Comment on above: Performed By: #### C BC #### [facility] [address] [place] [address] Dr. Yayo Gregg MCHC (RBC) [Mass/Vol] 32.8 g/dL Normal 29.9-35.2 The [facility] Comment on above: Performed By: #### C BC #### [facility] [address] [address] [address] Yayo Gregg MCV (RBC) [Entitic vol] 81.1 fL Normal 81.0-99.0 [facility] Comment on above: Performed By: #### C BC #### [facility] [address] [place] [address] Dr. Yayo Gregg MONO # 2.1 103/ul Critically high 0.3-0.[address] [facility] Comment on above: Performed By: #### C BC #### [facility] [address] [place] [address] Dr. Yayo Gregg Monocytes/100 WBC (Bld) 14.0 % Critically high 1.7-12. 0 [facility] Comment on above: Performed By: #### C BC #### [facility] [address] [place] [address] Dr. Yayo Gregg NEUT # 9.1 103/ul Critically high 1.4-6.5 [facility] Comment on above: Performed By: #### C BC #### [facility] [address] [place] [address] Dr. Yayo Gregg Neutrophils/100 WBC (Bld) 60.8 % Normal 43.0-75.0 [facility] Comment on above: Performed By: #### C BC #### [facility] [address] [place] [address] Dr. Yayo Gregg Platelet mean volume (Bld) [ Entitic vol] 10.2 fL Normal 9.5-13.5 The [facility] Comment on above: Performed By: #### C BC #### [facility] [address] [place] [address] Dr. Yayo Gregg PLT 455 103/ul Critically high 150-[address] [facility] Comment on above: Performed By: #### C BC #### [facility] [address] [place] [address] Dr. Yayo Gregg RBC 4.24 106/ul Normal 4.20-5.40 The [facility] Comment on above: Performed By: #### C BC #### [facility] [address] [place] [address] Dr. Yayo Gregg WBC 14.9 103/ul Critically high 4.0-11.0 [facility] Comment on above: Performed By: #### C BC #### [facility] [address] [place] [address] Dr. Yayo Gregg [facility] SARS-CoV-2 (COVID-19) RNA CHANTALE+probe Ql (Unsp spec) Not detected Normal NOT DETECTED The [facility] Comment on above: Result Comment: When diagnostic testing is negative, the possibility of a false negative should be considered in the context of a patient's recent exposures and the presence of clinical signs and symptoms consistent with SARS-CoV-2. This test is not yet approved or cleared by the [place] FDA. When there are no FDA-approved or cleared tests available, and other criteria are met, FDA can make tests available under an emergency access mechanism called an Emergency Use Authorization (EUA). The EUA for this test is supported by the [place] of Health and Human Service's declaration that circumstances exist to justify the emergency use of in vitro diagnostics for the detection and/or diagnosis of the virus that causes COVID-19. This EUA will remain in effect for the duration of the COVID-19 declaration justifying emergency of IVDs, unless it is terminated or revoked by the FDA (after which the test may no longer be used). Performed By: #### C BC #### [facility] [address] [place] [address] Dr. Yayo Gregg PROF 14(COMP METB)on 022 Albumin [Mass/Vol] 3.0 g/dL Critically low 3.4-5.0 Th [facility] Comment on above: Performed By: #### I MMUNGL #### [facility] [address] [place] [address] Dr. Yyao Gregg Albumin/Globulin [Mass ratio] 0.9 {ratio} Normal [facility] Comment on above: Performed By: #### I MMUNGL #### [facility] [address] [place] [address] Dr. Yayo Gregg ALP [Catalytic activity/Vol] 95 U/L Normal 46-116 [facility] Comment on above: Performed By: #### I MMUNGL #### [facility] [address] [address] [address] Yayo Gregg ALT [Catalytic activity/Vol] 28 U/L Normal 14-59 [facility] Comment on above: Performed By: #### I MMUNGL #### [facility] [address] [address] [address] Yayo Gregg Anion gap [Moles/Vol] 11.9 mmol/L Normal [facility] Comment on above: Performed By: #### I MMUNGL #### [facility] [address] [address] [address] Yayo Gregg AST [Catalytic activity/Vol] 24 U/L Normal 15-37 [facility] Comment on above: Performed By: #### I MMUNGL #### [facility] [address] [place] [address] Dr. Yayo Gregg Bilirubin [Mass/Vol] 0.3 mg/dL Normal 0.2-1.0 [facility] Comment on above: Performed By: #### I MMUNGL #### [facility] [address] [address] [address] Yayo Gregg Calcium [Mass/Vol] 8.8 mg/dL Normal 8.5-10.1 [facility] Comment on above: Performed By: #### I MMUNGL #### [facility] [address] [address] [address] Yayo Gregg Chloride [Moles/Vol] 98 mmol/L Normal 98-107 [facility] Comment on above: Performed By: #### I MMUNGL #### [facility] [address] [address] [address] Yayo Gregg CO2 [Moles/Vol] 24.6 mmol/L Normal 21.0-32.0 [facility] Comment on above: Performed By: #### I MMUNGL #### [facility] [address] [address] [address] Yayo Gregg Creatinine [Mass/Vol] 0.91 mg/dL Normal 0.55-1.02 [facility] Comment on above: Performed By: #### I MMUNGL #### [facility] [address] [address] [address] Yayo Gregg EGFR-AF EQUATORIAL GUINEAN >60 Normal >=60 [facility] Comment on above: Performed By: #### I MMUNGL #### [facility] [address] [address] [address] Yayo Gregg EGFR-NON AF EQUATORIAL GUINEAN 59 mL/min/1.73m2 Critically low >=60 [facility] Comment on above: Performed By: #### I MMUNGL #### [facility] [address] [place] [address] Dr. Yayo Gregg Globulin (S) [Mass/Vol] 3.3 g/dL Normal T [facility] Comment on above: Performed By: #### I MMUNGL #### [facility] [address] [place] [address] Dr. Yayo Gregg Glucose [Mass/Vol] 95 mg/dL Normal 74-106 [facility] Comment on above: Performed By: #### I MMUNGL #### [facility] [address] [place] [address] Dr. Yayo Gregg Potassium [Moles/Vol] 4.5 mmol/L Normal 3.5-5.1 [facility] Comment on above: Performed By: #### I MMUNGL #### [facility] [address] [place] [address] Dr. Yayo Gregg Protein [Mass/Vol] 6.3 g/dL Critically low 6.4-8.2 [facility] Comment on above: Performed By: #### I MMUNGL #### [facility] [address] [place] [address] Dr. Yayo Gregg Sodium [Moles/Vol] 130 mmol/L Critically low 136-145 [facility] Comment on above: Performed By: #### I MMUNGL #### [facility] [address] [place] [address] Dr. Yayo Gregg Urea nitrogen [Mass/Vol] 12.0 mg/dL Normal 7.0-18.0 [facility] Comment on above: Performed By: #### I MMUNGL #### [facility] [address] [place] [address] Dr. Yayo Gregg Urea nitrogen/Creatinine [Mass ratio] 13.2 mg/mg Normal [facility] Comment on above: Performed By: #### I MMUNGL #### [facility] [address] [place] [address] Dr. Yayo Gregg PROTIMEon 01-27-2022 INR Coag (PPP) [Relative time] 0.96 {INR} Normal [facility] Comment on above: Performed By: #### I MMUNGL #### [facility] [address] [place] [address] Dr. Yayo Gregg INR GUIDELINES SEE BELOW Normal [facility] Comment on above: Result Comment: ASHLEY RED INR: 2.0 - 3.0 CONDITIONS NOT LISTED BELOW 2.5 - 3.5 FOR PROSTHETIC HEART VALVE REPLACEMENT 2.5 - 3.5 RECURRENT THROMBOSIS Performed By: #### I MMUNGL #### [facility] [address] [place] [address] Dr. Yayo Gregg PT Coag (PPP) [Time] 10.4 s Normal 9.0-11.6 [facility] Comment on above: Performed By: #### I MMUNGL #### [facility] [address] [place] [address] Dr. Yayo Gregg PTTon 01-27-2022 aPTT Coag (Bld) [Time] 31.6 s Normal 22.3-36.2 [facility] Comment on above: Performed By: #### I MMUNGL #### [facility] [address] [place] [address] Dr. Yayo Gregg TROPONIN, HIGH SENSITIVITYon 01-27-2022 HSTROP 4.7 pg/mL Normal 4.0-51.3 [facility] Comment on above: Result Comment: CUT- OFF POINTS HAVE BEEN ESTABLISHED BASED ON THE FOURTH UNIVERSAL DEFINITIONS OF MYOCARDIAL INFARCTION. THE UPPER REFERENCE LIMIT (URL) OF TROPONIN, DEFINED THE 99TH PERCENTILE OF cTnI DISTRIBUTION IN A REFERENCE POPULATION, HAS BEEN CONFIRMED THE DECISION THRESHOLD FOR ND DIAGNOSIS. Performed By: #### H STROPN #### [facility] [address] [address] [address] Yayo Gregg XR CHEST 1 Von 01-27-2022 XR CHEST 1 V EXAMINATION: XR CHES T 1 V HISTORY: SHORTNESS OF BREATH , chest tightness COMPARISON: No relevant comparison available. FINDINGS: LUNGS: Hyperexpanded lungs. No significant pulmonary parenchymal abnormalities. VASCULATURE: No increased pulmonary vasculature. PLEURA: No pneumothorax, effusion, or pleural thickening. CARDIAC: No cardiomegaly or cardiac silhouette abnormality. MEDIASTINUM: No visible mass or adenopathy. BONES: No fracture or visible bone lesion. OTHER: Negative. IMPRESSION: 1. No acute cardiopulmonary process. 2. Hyperexpanded lungs suggestive of COPD. Electronically authenticated by: ANTHONY GUIDRY Date: 2022-01-27 11:47 Normal [facility] XR LSPINE 2_3 VIEWSon 2021 XR LSPINE 2_3 VIEWS EXAM: XR LSPINE 2_3 VIEWS HISTORY: Low back pain COMPARISON: None. TECHNIQUE: 3 views FINDINGS: Mild mid lumbar dextroscoliosis. Extensive multilevel discogenic and facet degenerative change. Mild depression of the superior endplate of L3 and L4 probably degenerative in nature No acute fracture or subluxation seen.. IMPRESSION: Extensive degenerative changes. No acute findings Electronically authenticated by: BENJAMIN GUNN Date: 2021-12-18 14:19 Normal [facility] BASIC METABOLIC PANEL(BMP)on 01-06-2018 Anion gap 12 mmol/L Normal 9-18 [facility] cat Comment on above: Performed By: #### C AMANDA SHERIFFCGR ####MAIN LABCLIA:[id number] [place] [address] BUN (urea nitrogen) 17 mg/dL Normal 8- [facility] Comment on above: Performed By: #### C AMANDA SHERIFFCGR ####MAIN LABCLIA:[id number] [place] [address] BUN/Creatinine Ratio 22.1 mg/mg Normal [facility] Comment on above: Performed By: #### C BC, ZCBCGR ####MAIN LABCLIA:[id number] [place] [address] Calcium 7.9 mg/dL Low 8.8-10.2 [facility] pital Comment on above: Performed By: #### C SHARITA, ZCBCGR ####MAIN LABCLIA:[id number] [place] [address] Chloride 101 mmol/L Normal 98-107 [facility] Comment on above: Performed By: #### C SHARITA, ZCBCGR ####MAIN LABCLIA:[id number] [facility] [place] [address] CO2 24 mmol/L Normal 22-29 [facility] Comment on above: Performed By: #### C SHARITA, ZCBCGR ####MAIN LABCLIA:[id number] [facility] [place] [address] Creatinine 0.77 mg/dL Normal 0.50-0.90 [facility] Comment on above: Performed By: #### C SHARITA, ZCBCGR ####MAIN LABCLIA:[id number] [place] [address] eGFR (MDRD) 77 /1.73 m2 Normal >60 mL/min [facility] Comment on above: Result Comment: Norm al RangeStage Description:1 Normal or Increased GFR >=902 Mild Decrease in GFR 60-903 Moderately Decreased GFR 30-594 Severely Decreased GFR 15-295 Kidney Failure <15 Performed By: #### C SHARITA, ZCBCGR ####MAIN LABCLIA:[id number] [facility] [place] [address] Glucose mass conc 89 mg/dL Normal 74-109 [facility] Comment on above: Performed By: #### C SHARITA, ZCBCGR ####MAIN LABCLIA:[id number] [place] [address] Potassium molar conc 4.4 mmol/L Normal 3.5-5.1 [facility] Comment on above: Performed By: #### C SHARITA, ZCBCGR ####MAIN LABCLIA:[id number] [facility] [place] [address] Sodium 133 mmol/L Low 136-145 [facility] pital Comment on above: Performed By: #### Vladimir SHERIFF ZCBCGR ####MAIN LABCLIA:[id number] [facility] [place] [address] CBC/DIFF GROUPon 01-06-2018 Anisocytosis presence 1+ Normal [facility] Comment on above: Performed By: #### C SHARITA ZCBCGR ####MAIN LABCLIA:[id number] [place] [address] HYPOCHROMASIA 1+ Normal [facility] Comment on above: Performed By: #### Vladimir SHERIFF ZCBCGR ####MAIN LABCLIA:[id number] [place] [address] NORMOCHROMIC NO Normal [facility]spital Comment on above: Performed By: #### Vladimir SHERIFF ZCBCGR ####MAIN LABCLIA:[id number] [place] [address] NORMOCYTIC NO Normal [facility] Comment on above: Performed By: #### C SHARITA ZCBCGR ####MAIN LABCLIA:[id number] [place] [address] Platelets NORMAL Normal [facility] Comment on above: Performed By: #### Vladimir SHERIFF ZCBCGR ####MAIN LABCLIA:[id number] [place] [address] BAND NEUTROPHILS #(MANUAL) 152 /cmm Normal <648 [facility] Comment on above: Performed By: #### C SHARITA ZCBCGR ####MAIN LABCLIA:[id number] [place] [address] Eosinophils 456 /cmm High <432 [facility]ital Comment on above: Performed By: #### C SHARITA ZCBCGR ####MAIN LABCLIA:[id number] [place] [address] Eosinophils/100 leukocytes 6 % High <4 [facility] Comment on above: Performed By: #### Vladimir SHERIFF, ZCBCGR ####MAIN LABCLIA:[id number] [facility] [place] [address] Lymphocytes 1748 /cmm Normal 960-4752 [facility] Comment on above: Performed By: #### Vladimir SHERIFF, ZCBCGR ####MAIN LABCLIA:[id number] [facility] [place] [address] Lymphocytes/100 leukocytes 23 % Normal 20-44 [facility] Comment on above: Performed By: #### C SHARITA, ZCBCGR ####MAIN LABCLIA:[id number] [facility] [place] [address] METAMYELOCYTES #(MANUAL) 76 /cmm High 0 [facility] Comment on above: Performed By: #### Vladimir SHERIFF, ZCBCGR ####MAIN LABCLIA:[id number] [place] [address] Metamyelocytes/100 leukocytes 1 % High 0 [facility] Comment on above: Performed By: #### C SHARITA ZCBCGR ####MAIN LABCLIA:[id number] [facility] [place] [address] Monocytes 1292 /cmm High 96-972 [facility] pital Comment on above: Performed By: #### Vladimir SHERIFF, ZCBCGR ####MAIN LABCLIA:[id number] [place] [address] Monocytes/100 leukocytes 17 % High 2-9 [facility] Comment on above: Performed By: #### Vladimir SHERIFF, ZCBCGR ####MAIN LABCLIA:[id number] [facility] [place] [address] Neutrophils 3876 /cmm Normal 7932-1940 [facility] Comment on above: Performed By: #### C SHARITA, ZCBCGR ####MAIN LABCLIA:[id number] [facility] [place] [address] Neutrophils band/100 leukocytes 2 % Normal <6 [facility] Comment on above: Performed By: #### C SHARITA, ZCBCGR ####MAIN LABCLIA:[id number] [facility] [place] [address] Neutrophils/100 WBC Auto (Bld) 51 % Normal 50-70 [facility] Comment on above: Performed By: #### C SHARITA, ZCBCGR ####MAIN LABCLIA:[id number] [facility] [place] [address] TOTAL CELLS COUNTED 100 Normal [facility] Comment on above: Performed By: #### C SHARITA, ZCBCGR ####MAIN LABCLIA:[id number] [place] [address] Erythrocyte distribution wid th Auto Ratio (RBC) 13.0 % Normal 11.5-14.5 [facility] Comment on above: Performed By: #### C SHARITA, ZCBCGR ####MAIN LABCLIA:[id number] [facility] [place] [address] Erythrocytes (RBC) 3.49 10 6/cmm Low 4.20-5.40 [facility] Comment on above: Performed By: #### C SHARITA, ZCBCGR ####MAIN LABCLIA:[id number] [facility] [place] [address] Hematocrit (HCT) 29.4 % Low 38.0-47.0 [facility] Comment on above: Performed By: #### C SHARITA, ZCBCGR ####MAIN LABCLIA:[id number] [place] [address] Hemoglobin mass conc (Bld) 10.1 g/dL Low 12.0-16.4 [facility] Comment on above: Performed By: #### C SHARITA, ZCBCGR ####MAIN LABCLIA:[id number] [facility] [place] [address] MCH 34.5 g/dL Normal 32.0-36.0 [facility] Comment on above: Performed By: #### C SHARITA, ZCBCGR ####MAIN LABCLIA:[id number] [place] [address] MCH 29.1 pg Normal 27.0-31.0 [facility] Comment on above: Performed By: #### C BC, ZCBCGR ####MAIN LABCLIA:[id number] [place] [address] MCV 84.3 fL Normal 80.0-96.0 [facility] Comment on above: Performed By: #### C BC, ZCBCGR ####MAIN LABCLIA:[id number] [place] [address] Platelets 359 10 3/cmm Normal 130-400 [facility] Comment on above: Performed By: #### C BC, ZCBCGR ####MAIN LABCLIA:[id number] [facility] [place] [address] WBC (Leukocytes) 7.6 10 3/cmm Normal 4.8-10.8 [facility] Comment on above: Performed By: #### C BC, ZCBCGR ####MAIN LABCLIA:[id number] [place] [address] FREE T4 (FREE THYROXINE)on 0 01-06-2018 Thyroxine (T4) free 2.46 ng/dL High 0.93-1.7 [facility] Comment on above: Performed By: #### C BC, ZCBCGR ####MAIN LABCLIA:[id number] [place] [address] IM Progress Noteon 8 IM Progress Note [address], [place] [address] TANGELA TRINIDAD [id number] Donnell Barton MD 4W / 4106-B 1940 Report #: [id number] Hospitalist Progress Note Date/Time: 01/06/18805 Report Status: Signed General Info Date Seen: 01/06/18 Time Seen: 08:06 Seen By: Donnell Barton Reason for Visit/Complaint: CP Patient's sodium is up to 133 and she feels perfectly fine. On the monitor she had a few short runs 4-5 beats of a supraventricular tachycardia. Patient's TSH is suppressed I discussed this with her and her doctor just called her and told her that her TSH from a week or 2 ago with suppressed and he is down dosed her Synthroid. Being slightly hyperthyroid could have potentiated a tachyarrhythmia that led to her symptoms. No other obvious source of hyponatremia has been identified. I told her she could go home today in follow-up with her physician if she continues her has recurrent hyponatremia further workup is warranted. Is important note she did have a CT of the head which showed no evidence of stroke, bleed, or mass. Patient says she feels fine and wants to go back to [place]. Her will be driving. - Reviewed laboratory results (Sodium 133, TSH 0.16) ROS Constitutional: Denies: chills, fever Endocrine: no symptoms reported Respiratory: no symptoms reported Cardiovascular: no symptoms reported. Denies: chest pain, palpitations Gastrointestinal: no symptoms reported Genitourinary: no symptoms reported Musculoskeletal: no symptoms reported Integumentary: no symptoms reported Neurological: no symptoms reported Psychiatric: no symptoms reported Exam Height: 5 ft Weight: 64.592 kg BMI: 27.8 Vital Signs (ED) BP 129/64 01/05/18 12:21 Vital Signs (Last Values) Temp Pulse Resp BP Pulse Ox 98.1 F 72 16 117/62 99 01/06/18 07:23 01/06/18 08:04 01/06/18 07:23 01/06/18 07:23 01/06/18 07:23 Reviewed: vital signs reviewed - General General appearance: alert, in no apparent distress, appears in good general health - HEENT Head exam: atraumatic, normocephalic Eye exam: normal appearance, No scleral icterus Mouth exam: mucous membranes moist Throat exam: normal inspection - Neck Neck exam: normal inspection - Chest Chest exam: normal inspection - Respiratory Respiratory Exam: clear to auscultation bilaterally, normal effort, No wheezes, No rales, No rhonchi, No stridor Oxygen: no oxygen requirements - Cardiovascular Cardiovascular exam: regular rate, regular rhythm, +S1, +S2 Telemetry: sinus rhythm, other (Few short runs of SVT 4-5 beats) Peripheral pulses: 2+: posterior tibialis (R), posterior tibialis (L), dorsalis pedis (R), dorsalis pedis (L) - GI/Abdominal GI/Abdomen exam: soft, non-tender, active bowel sounds, No flank pain, No tenderness, No guarding, No ridgidity - exam: normal w/palpation over bladder - Extremities Extremity exam: normal inspection, No edema, No clubbing, No cyanosis, No calf tenderness - Skin Skin exam: warm, dry, intact - Neurological Neurological exam: alert, oriented x3 Speech: clear - Psychiatric Psychiatric exam: normal mood Assessment and Plan - Assessment/Plan Discussed Case With: Nurse - Problems (1) Pre-syncope Plan: No recurrent symptoms. Patient's hyponatremia resolved with gentle IV hydration. No obvious source of patient's hyponatremia. The only arrhythmia on the monitor was a short run 5-6 beats of an SVT several times and she is hyperthyroid and her own physician has just called her in down dosed her Synthroid which would be the treatment for this. Perhaps patient had an SVT that led to her presyncopal events unclear at this time. I think it is fine to discharge her home today and have her follow-up with her physician in [place]. (2) Hyponatremia Status: Improved Plan: Sodium of 133-asymptomatic urine sodium slightly elevated at 35. (3) Essential hypertension Status: Stable (4) Hypothyroidism Plan: Suppressed TSH, her physician from [place] just called her in down dosed her Synthroid as his labs recently showed a suppressed TSH. (5) GERD (gastroesophageal reflux disease) Status: Stable (6) SVT (supraventricular tachycardia) Plan: Patient had several runs of 5-6 beats of an SVT it is possible the patient could of had an SVT that was more sustained that led to her presyncopal event. Patient is medically hyperthyroid however her Synthroid dose has been down dosed just recently by her outpatient physician which would be the treatment of choice. Electronically Signed By: Donnell Barton MD Signed Date/Time: 01/06/1817 Electronically Cosigned By: Cosigned Date/Time: Normal [facility] T3 FREEon 01-06-2018 Triiodothyronine (T3) free 5.92 pg/mL High 2.0-4.4 [facility] Comment on above: Performed By: #### C BC, ZCBCGR ####MAIN LABCLIA:[id number] [place] [address] CBC/DIFF GROUPon 01-05-2018 NORMOCHROMIC YES Normal [facility] Comment on above: Performed By: #### Vladimir SHERIFF ZCBCGR ####MAIN LABCLIA:[id number] [place] [address] NORMOCYTIC YES Normal [facility] Comment on above: Performed By: #### C SHARITA ZCBCGR ####MAIN LABCLIA:[id number] [place] [address] Platelets NORMAL Normal [facility] Comment on above: Performed By: #### Yaquelin RUFFCBCGR ####MAIN LABCLIA:[id number] [place] [address] BAND NEUTROPHILS #(MANUAL) 414 /cmm Normal <648 [facility] Comment on above: Performed By: #### Vladimir SHERIFF ZCBCGR ####MAIN LABCLIA:[id number] [place] [address] Eosinophils 552 /cmm High <432 [facility] Comment on above: Performed By: #### Vladimir SHERIFF ZCBCGR ####MAIN LABCLIA:[id number] [place] [address] Eosinophils/100 leukocytes 4 % Normal <4 [facility] Comment on above: Performed By: #### C SHARITA ZCBCGR ####MAIN LABCLIA:[id number] [place] [address] Lymphocytes 690 /cmm Low [phone] [facility] Comment on above: Performed By: #### C SHARITA ZCBCGR ####MAIN LABCLIA:[id number] [place] [address] Lymphocytes/100 leukocytes 5 % Low 20-44 [facility] Comment on above: Performed By: #### Vladimir SHERIFF ZCBCGR ####MAIN LABCLIA:[id number] [place] [address] Monocytes 1242 /cmm High 96-972 [facility] Comment on above: Performed By: #### C BC, ZCBCGR ####MAIN LABCLIA:[id number] [facility] [place] [address] Monocytes/100 leukocytes 9 % Normal 2-9 [facility] Comment on above: Performed By: #### C BC, ZCBCGR ####MAIN LABCLIA:[id number] [facility] [place] [address] Neutrophils 59761 /cmm High 7944-5973 [facility] Comment on above: Performed By: #### C SHARITA, ZCBCGR ####MAIN LABCLIA:[id number] [place] [address] Neutrophils band/100 leukocytes 3 % Normal <6 [facility] Comment on above: Performed By: #### C SHARITA, ZCBCGR ####MAIN LABCLIA:[id number] [place] [address] Neutrophils/100 WBC Auto (Bld) 79 % High 50-70 [facility] Comment on above: Performed By: #### C SHARITA, ZCBCGR ####MAIN LABCLIA:[id number] [place] [address] TOTAL CELLS COUNTED 100 Normal [facility] Comment on above: Performed By: #### C SHARITA, ZCBCGR ####MAIN LABCLIA:[id number] [place] [address] Hematocrit (HCT) 36.0 % Low 38.0-47.0 [facility] Comment on above: Performed By: #### C SHARITA, ZCBCGR ####MAIN LABCLIA:[id number] [facility] [place] [address] Hemoglobin mass conc (Bld) 12.2 g/dL Normal 12.0-16.4 [facility] Comment on above: Performed By: #### C BC, ZCBCGR ####MAIN LABCLIA:[id number] [facility] [place] [address] MCH 28.6 pg Normal 27.0-31.0 [facility] Comment on above: Performed By: #### C SHARITA, ZCBCGR ####MAIN LABCLIA:[id number] [place] [address] MCV 84.1 fL Normal 80.0-96.0 [facility] Comment on above: Performed By: #### C SHARITA, ZCBCGR ####MAIN LABCLIA:[id number] [place] [address] WBC (Leukocytes) 13.8 10 3/cmm High 4.8-10.8 [facility] Comment on above: Performed By: #### C SHARITA, ZCBCGR ####MAIN LABCLIA:[id number] [place] [address] CHEST 2 VIEWSon 01-05-2018 CHEST [address] [phone] Eg Location: 4W/ ADM IN Pt #: 4106-B MR #: [id number] DATE: 01/05/18 1236 ADM#: [id number] #: [id number] JANET TRINIDADOB: 1940 Age/Sex: 77 / F REPORT STATUS: SignedORDERING PHYSICIAN: STU Salvador/PRIMARY PHYSICIAN: Doctor,No H ISTORY/REASON: CPCLINICAL HISTORY: Dizziness.TECHNICAL FACTORS: 2 view chest submitted without comparison studies.EXAMINATION: CHEST 2 VIEWSFINDINGS: Mild cardiomegaly is seen. Lung venegas are hyperinflated. There istortuosity alongall limbs of the thoracic aorta.Bony structures show mild kyphosis and spondylosis changes.IMPRESSION:1. Mild cardiomegaly.2. No definite infiltrate or effusion.REPORT# [id number] READ BY: Rosaura Pinedo MD 01/05/18 1311FINAL REPORT RELEASED BY: Rosaura Pinedo MD 01/05/18 1808Transcribed Date/Time: 01/05/18 162 JLECC: ROSY Salvador; Doctor,No; Donnell [place] MD Normal [facility] COMPLETE BLOOD COUNTon 01-05 Erythrocyte distribution wid th Auto Ratio (RBC) 12.7 % Normal 11.5-14.5 [facility] Comment on above: Performed By: #### C BC, ZCBCGR ####MAIN LABCLIA:[id number] [place] [address] Erythrocytes (RBC) 4.28 10 6/cmm Normal 4.20-5.40 [facility] Comment on above: Performed By: #### C BC, ZCBCGR ####MAIN LABCLIA:[id number] [place] [address] MCH 34.0 g/dL Normal 32.0-36.0 [facility] Comment on above: Performed By: #### C BC, ZCBCGR ####MAIN LABCLIA:[id number] [place] [address] Platelets 423 10 3/cmm High 130-400 [facility] Comment on above: Performed By: #### C BC, ZCBCGR ####MAIN LABCLIA:[id number] [place] [address] COMPREHENSIVE METABOLIC PANE Umberto 01-05-2018 Alanine aminotransferase (ALT) 15 U/L Normal 0-33 [facility] Comment on above: Performed By: #### C MP, MG ####MAIN LABCLIA:[id number] [place] [address] Albumin 3.3 g/dL Normal 3.0-4.5 [facility] Comment on above: Performed By: #### C MP, MG ####MAIN LABCLIA:[id number] [facility] [place] [address] Albumin/Globulin Ratio 1.2 {ratio} Normal 1-1.4 [facility] Comment on above: Performed By: #### C MP, MG ####MAIN LABCLIA:[id number] [facility] [place] [address] Alkaline phosphatase (ALP) 76 U/L Normal 35-104 [facility] Comment on above: Performed By: #### C MP, MG ####MAIN LABCLIA:[id number] [facility] [place] [address] Anion gap 15 mmol/L Normal 9-18 [facility] Comment on above: Performed By: #### C MP, MG ####MAIN LABCLIA:[id number] [place] [address] Aspartate aminotransferase (AST) 16 U/L Normal 0-3 2 [facility] Comment on above: Performed By: #### C MP, MG ####MAIN LABCLIA:[id number] [facility] [place] [address] Bilirubin (total) 0.4 mg/dL Normal 0.2-1.2 [facility] Comment on above: Performed By: #### C MP, MG ####MAIN LABCLIA:[id number] [place] [address] BUN (urea nitrogen) 26 mg/dL High 8-23 [facility] Comment on above: Performed By: #### C MP, MG ####MAIN LABCLIA:[id number] [facility] [place] [address] BUN/Creatinine Ratio 22.2 mg/mg Normal [facility] Comment on above: Performed By: #### C MP, MG ####MAIN LABCLIA:[id number] [place] [address] Calcium 8.5 mg/dL Low 8.8-10.2 [facility] Comment on above: Performed By: #### C MP, MG ####MAIN LABCLIA:[id number] [facility] [place] [address] Chloride 90 mmol/L Low 98-107 [facility] Comment on above: Performed By: #### C MP, MG ####MAIN LABCLIA:[id number] [facility] [place] [address] CO2 26 mmol/L Normal 22-29 [facility] Comment on above: Performed By: #### C MP, MG ####MAIN LABCLIA:[id number] [facility] [place] [address] Creatinine 1.17 mg/dL High 0.50-0.90 [facility] Comment on above: Performed By: #### C MP, MG ####MAIN LABCLIA:[id number] [facility] [place] [address] eGFR (MDRD) 47 /1.73 m2 Low >60 mL/min [facility] Comment on above: Result Comment: Norm al RangeStage Description:1 Normal or Increased GFR >=902 Mild Decrease in GFR 60-903 Moderately Decreased GFR 30-594 Severely Decreased GFR 15-295 Kidney Failure <15 Performed By: #### C MP, MG ####MAIN LABCLIA:[id number] [facility] [place] [address] Globulin 2.7 g/dL Normal 2.3-3.5 [facility] Comment on above: Performed By: #### C MP, MG ####MAIN LABCLIA:[id number] [place] [address] Glucose mass conc 136 mg/dL High 74-109 [facility] Comment on above: Performed By: #### C MP, MG ####MAIN LABCLIA:[id number] [facility] [place] [address] Potassium molar conc 4.5 mmol/L Normal 3.5-5.1 [facility] Comment on above: Performed By: #### C MP, MG ####MAIN LABCLIA:[id number] [place] [address] Protein 6.0 g/dL Low 6.4-8.3 [facility] Comment on above: Performed By: #### C MP, MG ####MAIN LABCLIA:[id number] [place] [address] Sodium 126 mmol/L Low 136-145 [facility] Comment on above: Performed By: #### C MP, MG ####MAIN LABCLIA:[id number] [place] [address] CT HEAD WO 01-05-2018 CT HEAD WO [address] [phone] Ib Location: 4W/ ADM IN Pt RM#: 4106-B MR #: [id number] DATE: 01/05/18 1236 ADM#: [id number] #: [id number] JANET TRINIDADOB: 1940 Age/Sex: 77 / F REPORT STATUS: SignedORDERING PHYSICIAN: STU Salvador/PRIMARY PHYSICIAN: Doctor,No H ISTORY/REASON: Dizziness, near syncopeCLINICAL HISTORY: Syncope.TECHNICAL FACTORS: Axial views were obtained at 5 mm intervals through the head without IVcontrast.Individualized dose optimization techniques were used for this CT scan.EXAMINATION: CT HEAD WOFINDINGS: The ventricles, cisterns and sulci are within normal limits in sizeand configuration.Areas of decreased attenuation are seen in the periventricular white mattermost likely representschronic microvascular ischemic changes. No shift of the midline structures orother evidence ofmass effect is shown. No obvious abnormality of the posterior fossa isdemonstrated. Mucosalthickening is seen in the ethmoid air cells suggesting chronic sinusitis. Themiddle ear cavitiesand mastoid air cells are clear. The visualized orbits appear normal.IMPRESSION:Chronic microvascular ischemic changes in the periventricular white matter.REPORT# [id number] READ BY: Cielo Pacheco M.D. [id number] REPORT RELEASED BY: Cielo Pacheco M.D. 01/05/18 1502Transcribed Date/Time: 01/05/18 1339 PLPCC: ROSY Salvador; Doctor,No; Donnell [place] MD [facility] Emergency Room Visit Reporto n 01-05-2018 Emergency Room Visit Report [address], [place] [address] TANGELA TRINIDAD 1940 (77 F) [id number] Helio Hoang 4W Report #: [id number] PCP: No Doctor Emergency Room Visit Report Date of Service: 01/05/18 Date/Time: 01/05/18 1237 Report Status: Signed Dizziness HPI Condition on Arrival: Fair LEESA Level: 3 Mode of Arrival: ambulance/EMS Lives With: spouse - Travel Screening Traveled Out Of Country In Last 30 Days: No (Or) Been in Contact With Ill Person Who Has Traveled: No - History of Present Illness Complaint: dizziness, lightheadedness, near syncope Description: near-syncope Other Description of Symptoms: Pt reports feeling dizziness and near syncope at [facility]. Pt reports recent bronchitis that she was treated for. Pt reports diaphoresis and EMS reports BG of 52. Ptgiven glucose orally and BG brought up to 92. No histroy of hypoglycemia Associated Symptoms: diaphoresis Timing: sudden onset 77-year-old female history of osteoarthritis, hypertension, hypercholesterolemia who lives out of town and staying at a local campground, presents for syncope. She was at an underground [place] doing a [place] and had a sudden onset where she felt dizzy, weak and lightheaded. Her family and friends are all present and they witnessed this event. Apparently the patient was sat down on a chair and they believe she passed out for 1-2 seconds. This is never happened to her before. They checked her blood sugar when EMS arrived and it was 52. They gave her some glucagon which increased it. She has no history of diabetes. She still feels little bit weak and tired. She denies chest pain. Denies shortness of breath. Denies any headache. Denies any blurred vision or any unilateral numbness tingling weakness. She notes she was feeling completely fine prior to this happening. Patient was treated for bronchitis last week and took a prescription of prednisone and has 1 day left of an unknown antibiotic. - Pain Assessment Denies Intensity: 0 - Immunizations Immunizations Up to Date: yes Patient Tetanus UTD (Within 5 Years): no Flu Vaccine: seasonal Pneumonia Vaccine: yes - Allergies/Home Meds Allergy to Contrast: No Allergy to Iodine/Shellfish: No Allergies Allergy/AdvReac Type Severity Reaction Status Date / Time Penicillins Allergy Mild Rash Verified 01/05/18 12:40 Sulfa (Sulfonamide Allergy Mild Rash Verified 01/05/18 12:40 Antibiotics) [id number] Reductase Allergy Unknown Verified 01/05/18 12:40 Inhibitor Home Medications Medication Instructions Recorded Confirmed Atenolol [Tenormin =] 25 mg PO DAILY 01/05/18 01/05/18 Calcium Carb/Vit D3/Minerals 1 each PO DAILY 01/05/18 01/05/18 [Calcium 1,200 mg Tablet Chew] Cholecalciferol (Vitamin D3) 400 unit PO BID 01/05/18 01/05/18 [Vitamin D] Diclofenac Sodium [Voltaren] 75 mg PO BID 01/05/18 01/05/18 Levothyroxine Sodium [Levothroid] 125 mcg PO DAILY 01/05/18 01/05/18 Losartan Potassium [Cozaar] 50 mg PO DAILY 01/05/18 01/05/18 Tramadol HCl 50 mg PO BID 01/05/18 01/05/18 raNITIdine HCl [Acid Wildlife Technician] 150 mg PO BID 01/05/18 01/05/18 ROS All Other Systems: 10 systems were reviewed and negative except as noted above Past Medical History Endocrine: Hypothyroidism Cardiovascular: Hypertension Hematologic: Anemia - Social History Smoking Status: Never Smoked Alcohol Use: None Drug Use: None Physical Exam Vital Signs on Arrival Blood Pressure 129/64 01/05/18 12:21 Vital Signs - Last Documented Temperature 98.0 F 01/05/18 15:32 Pulse Rate 70 01/05/18 16:02 Respiratory Rate 18 01/05/18 16:02 Blood Pressure 138/68 01/05/18 15:32 O2 Sat by Pulse Oximetry 98 01/05/18 16:02 Vital signs reviewed: reviewed and appear correct - General General appearance: alert, in no apparent distress - Head Head exam: atraumatic, normocephalic, normal visual inspection - Eye Eye exam: Present: normal visual inspection, PER, EOMI. Absent: scleral icterus, conjunctival injection - ENT ENT exam: normal visual inspection, normal exam, normal oropharynx, mucous membranes moist, TM's normal bilaterally, normal external ear exam - Neck Neck exam: Present: normal visual inspection, full ROM, trachea midline. Absent: lymphadenopathy - Chest Chest inspection: Present: symmetric chest wall rise - Respiratory Respiratory exam: Present: normal lung sounds bilaterally, respirations easy, unlabored. Absent: respiratory distress, wheezes, rales, rhonchi, stridor - Cardiovascular Cardiovascular exam: Present: regular rate, normal rhythm, normal heart sounds - GI/Abdominal Exam Abdominal exam: Present: soft - Neurological Exam Neurological exam: Present: alert, oriented X3, CN II-XII grossly intact - Psychiatric Psychiatric exam: Present: normal affect, normal mood, cooperative - Skin Skin exam: Present: warm, dry, intact, normal color. Absent: diaphoresis, pallor Results Laboratory results reviewed, Radiology results reviewed 01/05/18 12:53 01/05/18 12:53 Last Chemstick Result Finger Stick Blood Glucose 81 Laboratory Results 01/05/18 01/05/18 01/05/18 Range/Units 13:52 12:53 12:53 WBC (4.8-10.8) 10 3/cmm RBC (4.20-5.40) 10 6/cmm Hgb (12.0-16.4) g/dL Hct (38.0-47.0) % MCV (80.0-96.0) fL MCH (27.0-31.0) pg MCHC (32.0-36.0) g/dL RDW (11.5-14.5) Plt Count (130-400) 10 3/cmm Total Counted Neutrophils % (Manual) (50-70) % Band Neutrophils % (<6) % Lymphocytes % (Manual) (20-44) % Monocytes % (Manual) (2-9) % Eosinophils % (Manual) (<4) % Neutrophils # (Manual) (1400-0044) /cmm Band Neutrophils # (<648) /cmm Lymphocytes # (Manual) (960-4752) /cmm Monocytes # (Manual) (96-972) /cmm Eosinophils # (Manual) (<432) /cmm Platelet Estimate Normocytic RBCs Normochromic RBCs Sodium 126 L (136-145) mmol/L Potassium 4.5 (3.5-5.1) mmol/L Chloride 90 L (98-107) mmol/L Carbon Dioxide 26 (22-29) mmol/L Anion Gap 15 (9-18) BUN 26 H (8-23) mg/dL Creatinine 1.17 H (0.50-0.90) mg/dL GFR Calculation 47 L (>60 mL/min) /1.73 m2 BUN/Creatinine Ratio 22.2 Glucose 136 H (74-109) mg/dL Calcium 8.5 L (8.8-10.2) mg/dL Magnesium 2.1 (1.6-2.6) mg/dL Total Bilirubin 0.4 (0.2-1.2) mg/dL AST 16 (0-32) U/L ALT 15 (0-33) U/L Alkaline Phosphatase 76 (35-104) U/L Troponin T <0.010 (<0.010) ng/mL Total Protein 6.0 L (6.4-8.3) g/dL Albumin 3.3 (3.0-4.5) g/dL Globulin 2.7 (2.3-3.5) g/dL Albumin/Globulin Ratio 1.2 (1-1.4) ratio Urine Source Void-midstream Urine Color Yellow Urine Appearance Clear Urine pH 7.0 Ur Specific [place] <=1.005 Urine Protein Negative (NEGATIVE) Urine Glucose (UA) Negative (NEGATIVE) Urine Ketones Negative (NEGATIVE) Urine Occult Blood Negative (NEGATIVE) Urine Nitrite Negative (NEGATIVE) Urine Bilirubin Negative (NEGATIVE) Urine Urobilinogen 0.2 (0.0-1.0) mg/dL Ur Leukocyte Esterase Trace (NEGATIVE) Urine RBC 0-2 (0-2) /HPF Urine WBC 0-2 (0-2) /HPF Ur Squamous Epith Cells 0-2 /HPF Urine Bacteria None (NONE) /HPF 01/05/18 Range/Units 12:53 WBC 13.8 H (4.8-10.8) 10 3/cmm RBC 4.28 (4.20-5.40) 10 6/cmm Hgb 12.2 (12.0-16.4) g/dL Hct 36.0 L (38.0-47.0) % MCV 84.1 (80.0-96.0) fL MCH 28.6 (27.0-31.0) pg MCHC 34.0 (32.0-36.0) g/dL RDW 12.7 (11.5-14.5) Plt Count 423 H (130-400) 10 3/cmm Total Counted 100 Neutrophils % (Manual) 79 H (50-70) % Band Neutrophils % 3 (<6) % Lymphocytes % (Manual) 5 L (20-44) % Monocytes % (Manual) 9 (2-9) % Eosinophils % (Manual) 4 (<4) % Neutrophils # (Manual) 50535 H (7983-8248) /cmm Band Neutrophils # 414 (<648) /cmm Lymphocytes # (Manual) 690 L (960-4752) /cmm Monocytes # (Manual) 1242 H (96-972) /cmm Eosinophils # (Manual) 552 H (<432) /cmm Platelet Estimate Normal Normocytic RBCs Yes Normochromic RBCs Yes Sodium (136-145) mmol/L Potassium (3.5-5.1) mmol/L Chloride (98-107) mmol/L Carbon Dioxide (22-29) mmol/L Anion Gap (9-18) BUN (8-23) mg/dL Creatinine (0.50-0.90) mg/dL GFR Calculation (>60 mL/min) /1.73 m2 BUN/Creatinine Ratio Glucose (74-109) mg/dL Calcium (8.8-10.2) mg/dL Magnesium (1.6-2.6) mg/dL Total Bilirubin (0.2-1.2) mg/dL AST (0-32) U/L ALT (0-33) U/L Alkaline Phosphatase (35-104) U/L Troponin T (<0.010) ng/mL Total Protein (6.4-8.3) g/dL Albumin (3.0-4.5) g/dL Globulin (2.3-3.5) g/dL Albumin/Globulin Ratio (1-1.4) ratio Urine Source Urine Color Urine Appearance Urine pH Ur Specific [place] Urine Protein (NEGATIVE) Urine Glucose (UA) (NEGATIVE) Urine Ketones (NEGATIVE) Urine Occult Blood (NEGATIVE) Urine Nitrite (NEGATIVE) Urine Bilirubin (NEGATIVE) Urine Urobilinogen (0.0-1.0) mg/dL Ur Leukocyte Esterase (NEGATIVE) Urine RBC (0-2) /HPF Urine WBC (0-2) /HPF Ur Squamous Epith Cells /HPF Urine Bacteria (NONE) /HPF ECG #1 Rhythm: NSR Rate: normal P Waves: normal ST Segment: normal T Waves: inversion (3,avf) Interpreted By: ED provider Comparison to Prior ECG: previous ECG unavailable Course ED Orders Category Date Time Status Activity: Up Ad Nedra CONTINUOUS ADL 01/05/18 16:08 Active Intake and Output TID ADL 01/05/18 16:08 Active Orthostatic BP's PRN ADL 01/05/18 12:36 Active Vital Signs PRN ADL 01/05/18 12:36 Active Vital Signs Q4HMRH ADL 01/05/18 16:08 Active Neurological Checks ONCE Assessment 01/05/18 12:36 Active EKG [ECG] Stat Cardiology 01/05/18 12:27 Completed VTE Prophylaxis-Documentation Routine Care 01/05/18 16:08 Ordered Low Sodium [DIET] Diet 01/05/18 Dinner Active CHEST 2 VIEWS Stat Exams 01/05/18 12:[address] HEAD WO Stat Exams 01/05/18 12:36 Completed Hepwell (0.9 % Ns Flush) [Hepwell (Normal Saline Flush) IV 01/05/18 22:00 Active ] 0 - 10 ml IVF Q8HMRH Normal Saline [Sodium Chloride 0.9% Bag 1000 ml] 1,000 IV 01/05/18 12:36 Discontinued ml IV 125 mls/hr Normal Saline [Sodium Chloride 0.9% Bag 1000 ml] 1,000 IV 01/05/18 14:42 Discontinued ml IV 125 mls/hr Normal Saline [Sodium Chloride 0.9% Bag 1000 ml] 1,000 IV 01/05/18 16:08 Active ml IV 125 mls/hr Normal Saline [Sodium Chloride 0.9% Bag 1000 ml] 1,000 IV 01/05/18 13:30 Discontinued ml IV 999 mls/hr CBC/DIFF GROUP Stat Lab 01/05/18 12:53 Completed COMPREHENSIVE METABOLIC PANEL Stat Lab 01/05/18 12:53 Completed MAGNESIUM Stat Lab 01/05/18 12:53 Completed TROPONIN T Stat Lab 01/05/18 12:53 Completed TROPONIN T Timed Lab 01/05/18 18:34 Ordered URINALYSIS Stat Lab 01/05/18 13:52 Completed VASCULAR RISK PANEL Routine Lab 01/05/18 12:53 Received Acetaminophen [Tylenol] Med 01/05/18 16:08 Active 650 mg PO Q6H PRN Aspirin [Ecotrin] Med 01/06/18 09:00 Active 81 mg PO DAILY Atenolol [Tenormin] Med 01/06/18 09:00 Active 25 mg PO DAILY Calcium Carbonate/Vitamin D3 [Calcium 600 + Vit D 200 Med 01/06/18 09:00 Active Tablet] 2 each PO DAILY Cholecalciferol (Vitamin D3) [Vitamin D3] Med 01/05/18 21:00 Ordered 400 unit PO BID Diclofenac Sodium [Voltaren] Med 01/05/18 21:00 Active 75 mg PO BID Levothyroxine Sodium [Synthroid] Med 01/06/18 07:00 Active 125 mcg PO AB Ondansetron HCl/Pf [Zofran 4 mg/2 ml Vial] Med 01/05/18 12:36 Discontinued 4 mg IVP NOW STA traMADol HCL [Ultram] Med 01/05/18 21:00 Active 50 mg PO BID Cardiac Risk Level Routine Procedure 01/05/18 16:08 Ordered Oxygen Per RT Protocol CONTINUOUS Resp. Care 01/05/18 16:08 Active Pulse Oximetry CONTINUOUS Resp. Care 01/05/18 12:36 Active Chemsticks ACHS Routine Ca 01/05/18 16:08 Active Chemsticks ONCE Routine Ca 01/05/18 12:36 Active If Chest Pain Persists: CONTINUOUS Routine Ca 01/05/18 16:08 Active Notify of Abnormal Troponin CONTINUOUS Routine Ca 01/05/18 16:08 Active PARI Talavera, [place] CONTIN Routine Ca 01/05/18 16:08 Active Telemetry CONTIN Routine Ca 01/05/18 16:08 Active Telemetry in ED ED TELE Routine Ca 01/05/18 12:36 Completed Hospital Status ONCE Status 01/05/18 16:08 Active Transfer Order Routine Transfer 01/05/18 Completed Administered Medications Discontinued Medications Sodium Chloride (Sodium Chloride 0.9% Bag 1000 Ml) 1,000 mls @ 125 mls/hr IV .Q8H STA Stop: 01/05/18 20:35 Last Admin: 01/05/18 12:39 Dose: 125 mls/hr Sodium Chloride (Sodium Chloride 0.9% Bag 1000 Ml) 1,000 mls @ 999 mls/hr IV .Q1H1M ANAYA Stop: 01/05/18 14:30 Last Infusion: 01/05/18 14:44 Dose: 0 mls/hr Admin: 01/05/18 13:42 Dose: 999 mls/hr Sodium Chloride (Sodium Chloride 0.9% Bag 1000 Ml) 1,000 mls @ 125 mls/hr IV .Q8H STA Stop: 01/05/18 22:41 Last Admin: 01/05/18 14:43 Dose: 125 mls/hr Ondansetron HCl (Zofran 4 Mg/2 Ml Vial) 4 mg IVP NOW STA Stop: 01/05/18 12:37 Last Admin: 01/05/18 12:49 Dose: 01/05/18 12:39 Patient prescriptions given on December 28, Medrol pack, doxycycline and an inhaler. This was obtained by the [facility] pharmacy in [facility]. 01/05/18 14:40 I discussed this patient with the attending ER Physician throughout the visit. Please see their notes for any further documentation on their involvement in the patients care. Consultation #1 Consulted: hospitalist (Oralia) Will See Patient: in hospital Dizziness MDM Patient presented for syncopal episode. Is unclear of the etiology of this syncopal episode. Her sodium was low at 126. We have no previous labs to compare any results with. Her white blood cell count is 13. Urinalysis unremarkable. Chest x-ray, CT head unremarkable for any acute cardiopulmonary or any acute intracranial abnormalities. EKG was reviewed shows some subtle flipped T-waves with otherwise nonspecific ST segment changes. Her initial troponin is negative. Her blood sugars remained around 100 after what she was given via squad. Her creatinine is 1.17, again we have no previous labs to compare with. The patient still does not feel well. She feels weak and tired which apparently happened abruptly for her and per the patient and her this is very abnormal for her to feel this way. Discussed keeping her hospitalized overnight for further evaluation treatment, cardiac rule out and to replace her sodium via normal saline. She has no chest pain currently, no shortness of breath and is in no acute distress. Testing Ordered: Laboratory 01/05/18 12:53 CBC/DIFF GROUP Stat COMPREHENSIVE METABOLIC PANEL Stat MAGNESIUM Stat TROPONIN T Stat VASCULAR RISK PANEL Routine 01/05/18 13:52 URINALYSIS Stat 01/05/18 18:34 TROPONIN T Timed Radiology 01/05/18 12:36 CHEST [address] HEAD WO Stat Cardiology 01/05/18 12:27 EKG [ECG] Stat Respiratory 01/05/18 12:36 Pulse Oximetry CONTINUOUS 01/05/18 16:08 Oxygen Per RT Protocol CONTINUOUS Administered Medications Discontinued Medications Sodium Chloride (Sodium Chloride 0.9% Bag 1000 Ml) 1,000 mls @ 125 mls/hr IV .Q8H STA Stop: 01/05/18 20:35 Last Admin: 01/05/18 12:39 Dose: 125 mls/hr Sodium Chloride (Sodium Chloride 0.9% Bag 1000 Ml) 1,000 mls @ 999 mls/hr IV .Q1H1M ANAYA Stop: 01/05/18 14:30 Last Infusion: 01/05/18 14:44 Dose: 0 mls/hr Admin: 01/05/18 13:42 Dose: 999 mls/hr Sodium Chloride (Sodium Chloride 0.9% Bag 1000 Ml) 1,000 mls @ 125 mls/hr IV .Q8H STA Stop: 01/05/18 22:41 Last Admin: 01/05/18 14:43 Dose: 125 mls/hr Ondansetron HCl (Zofran 4 Mg/2 Ml Vial) 4 mg IVP NOW STA Stop: 01/05/18 12:37 Last Admin: 01/05/18 12:49 Dose: Disposition - Disposition Clinical Impression: Hyponatremia Syncope Qualifiers: Syncope type: unspecified Qualified Code(s): R55 - Syncope and collapse Condition: Stable Discharge Disposition: Assigned to Observation Electronically Signed By: ROSY Salvador 01/05/18 6420 Sohan Grover MD 01/05/181904 I was personally available for consultation in the ED, but I did not see the patient. Electronically Cosigned By: Sohan Grover MD Cosigned Date/Time: 01/05/181904 Normal [facility] History & Physicalon 018 History & Physical [address] [id number] TANGELA TRINIDAD [id number] Donnell Barton MD 4W / [id number] Report #: [id number] Admission Date: 01/05/18 History Physical Date/Time: 01/05/18 153 Report Status: Signed HPI Date Seen: 01/05/18 Time Seen: 15:30 Seen By: Donnell Barton Reason for Visit: CP Ms. TRINIDAD is a 77 year old female with a past medical history of essential hypertension, hypothyroidism, and GERD, and recently treated for a upper respiratory infection with prednisone and doxycycline presents with a presyncopal episode. Patient is visiting this area from [place] in they went to the underground caverns today and she made it through about 90% of the cavernous and then she had a sudden onset of feeling lightheaded she became very diaphoretic and kind of collapsed to the ground someone grabbed her and kind of laid her down she did not lose consciousness according to the . But she felt very tired and lightheaded. The squad got there and they got her into some type of chair and got her out of the caverns and brought her to the emergency room. At no time did she have any chest pain or palpitations. Patient is currently asymptomatic. Evaluation emergency room consisted of a cardiac rn which shows normal sinus rhythm, EKG shows normal sinus rhythm without any acute ST or T-wave changes. White count slightly elevated however she had been on prednisone, sodium was 126 and chloride was 90 but she does not take diuretic she does take an angiotensin receptor frandy. Patient says she had blood work with her doctor in November she does know what she checked but she was never total was abnormal. Patient being placed in observational stay for a presyncopal episode and hyponatremia of unclear duration. Reviewed old current records Allergies Allergy/AdvReac Type Severity Reaction Status Date / Time Penicillins Allergy Mild Rash Verified 01/05/18 12:40 Sulfa (Sulfonamide Allergy Mild Rash Verified 01/05/18 12:40 Antibiotics) [id number] Reductase Allergy Unknown Verified 01/05/18 12:40 Inhibitor Home Medications Medication Instructions Recorded Confirmed Atenolol [Tenormin =] 25 mg PO DAILY 01/05/18 01/05/18 Calcium Carb/Vit D3/Minerals 1 each PO DAILY 01/05/18 01/05/18 [Calcium 1,200 mg Tablet Chew] Cholecalciferol (Vitamin D3) 400 unit PO BID 01/05/18 01/05/18 [Vitamin D] Diclofenac Sodium [Voltaren] 75 mg PO BID 01/05/18 01/05/18 Levothyroxine Sodium [Levothroid] 125 mcg PO DAILY 01/05/18 01/05/18 Losartan Potassium [Cozaar] 50 mg PO DAILY 01/05/18 01/05/18 Tramadol HCl 50 mg PO BID 01/05/18 01/05/18 raNITIdine HCl [Acid Wildlife Technician] 150 mg PO BID 01/05/18 01/05/18 Allergies and home medications reviewed Code Status: Full Code: Addressed code status w/patient and/or POA. Past Medical History Endocrine: Hypothyroidism Cardiovascular: Hypertension Hematologic: Anemia Surgical History: Appendectomy, Bladder Surgery, Hysterectomy - Family Mother ( at age 78 of a heart attack) Father (Also diet at age 78 of a heart attack) Social History Lives With: spouse - Smoking History Smoking Status: Never Smoked - Alcohol Use History Use: None - Drug Use History Use: None ROS Constitutional: Denies: chills, fever Endocrine: no symptoms reported Respiratory: cough (Nonproductive cough which is actually gotten better over the last few days). Denies: SOB with exertion, SOB at rest Cardiovascular: Denies: chest pain, palpitations Genitourinary: Denies: urgency, dysuria Musculoskeletal: weakness (Only during the episode) Integumentary: Denies: rash, lesions Neurological: Denies: no symptoms reported, headache, confusion Psychiatric: no symptoms reported Hematological/Lymphatic: no symptoms reported Exam Height: 5 ft Weight: 67.222 kg BMI: 28.9 Vital Signs (ED) BP 129/64 01/05/18 12:21 Vital Signs (Last Values) Temp Pulse Resp BP Pulse Ox 97.8 F 70 16 127/68 95 01/05/18 15:16 01/05/18 15:16 01/05/18 15:16 01/05/18 15:16 01/05/18 15:16 Reviewed: vital signs reviewed - General General appearance: alert, in no apparent distress - HEENT Head exam: atraumatic, normocephalic Eye exam: normal appearance, PERRLA, EOMI, No scleral icterus Ear exam: TM's normal bilaterally Mouth exam: mucous membranes moist Throat exam: normal inspection - Neck Neck exam: normal inspection, No JVD, No carotid bruit, No lymphadenopathy, No thyromegaly - Chest Chest exam: normal inspection - Respiratory Respiratory Exam: clear to auscultation bilaterally, normal effort, cough (Rare cough), No wheezes Oxygen: no oxygen requirements - Cardiovascular Cardiovascular exam: regular rate, regular rhythm, +S1, +S2, other (No murmur), No +S3, No +S4 Telemetry: sinus rhythm Peripheral pulses: 2+: carotid (R), carotid (L), posterior tibialis (R), posterior tibialis (L), dorsalis pedis (R), dorsalis pedis (L) VTE prophylaxis ordered: ambulation - GI/Abdominal GI/Abdomen exam: soft, non-tender, active bowel sounds, No palpable mass, No tenderness, No guarding, No ridgidity - Rectal Rectal exam: deferred - exam: normal w/palpation over bladder - Extremities Extremity exam: normal inspection, No edema, No clubbing, No cyanosis, No calf tenderness - Back Back exam: normal inspection - Skin Skin exam: warm, dry, intact - Neurological Neurological exam: alert, oriented x3 Speech: clear - Psychiatric Psychiatric exam: normal mood Results Laboratory results reviewed, Radiology results reviewed, ECG results reviewed 01/05/18 12:53 01/05/18 12:53 Assessment Plan (1) Pre-syncope Plan: Patient is a 77-year-old lady with a history of hypertension presents with a presyncopal event having to be lowered to the ground without loss of consciousness after walking in an underground cavern. Patient is never had anything like this in the past and no new medications. Patient had been taking prednisone and doxycycline last week for an upper respiratory infection but not in the last couple of days. Patient was found to be hyponatremic which may be the cause of her symptoms but that is somewhat unclear. Patient be brought in the hospital with an observational stay to rule out arrhythmia, serial enzymes, and hopefully resolve her hyponatremia and see how she feels. Discussed with the patient and her in detail. (2) Hyponatremia Plan: Unknown whether this is acute or chronic I was assuming that it is acute, will gently hydrate with normal saline and check urine sodium. Would also check TSH for completeness. (3) Essential hypertension Status: Stable (4) Hypothyroidism Plan: On Synthroid, check TSH to an sure that is adequately treated and not causing hyponatremia (5) GERD (gastroesophageal reflux disease) Status: Stable Plan: admit as observation Electronically Signed By: Donnell Barton MD Signed Date/Time: 01/05/18 1541 Electronically Cosigned By: Cosigned Date/Time: Normal [facility] MAGNESIUMon 01-05-2018 Magnesium 2.1 mg/dL Normal 1.6-2.6 [facility] pital Comment on above: Performed By: #### C MP, MG ####MAIN LABCLIA:[id number] [place] [address] SODIUM,URINE RANDOMon 2017 SODIUM,URINE RANDOM 35 mmol/L Normal [facility] Comment on above: Order Comment: COLLE CTED BY: Sherine Tenorio Result Comment: The reference range has not been established for this test. Performed By: #### C Yaquelin SHERIFFCBCGR ####MAIN LABCLIA:[id number] [place] [address] THYROID STIMULATING HORMONEo n 01-05-2018 Thyroid stimulating hormone (TSH) 0.16 uIU/mL Low 0 .27-4.20 [facility] Comment on above: Performed By: #### C Yaquelin SHERIFFCBCGR ####MAIN LABCLIA:[id number] [place] [address] TROPONIN Ton 01-05-2018 Troponin T.cardiac mass conc ug/L Normal <0.010 [facility] Comment on above: Result Comment: Valu es > or = 0.01 ng/mL have been shown to have prognosticvalue.Troponin T values > or = 0.01 ng/mL are a prognostic sign inpatients with ischemic heart disease. Clinical judgment isnecessary to distinguish patients who have ischemic heartdisease from those who do not.Patients with low level(<0.20 ng/mL)elevations of troponin Tand diagnostic uncertainty for acute coronary syndromeshould be evaluated by repeat measurements at 4 and 8 hours. Performed By: #### C BC, ZCBCGR ####MAIN LABCLIA:[id number] [place] [address] Troponin T.cardiac mass conc ug/L Normal <0.010 [facility] Comment on above: Result Comment: Valu es > or = 0.01 ng/mL have been shown to have prognosticvalue.Troponin T values > or = 0.01 ng/mL are a prognostic sign inpatients with ischemic heart disease. Clinical judgment isnecessary to distinguish patients who have ischemic heartdisease from those who do not.Patients with low level(<0.20 ng/mL)elevations of troponin Tand diagnostic uncertainty for acute coronary syndromeshould be evaluated by repeat measurements at 4 and 8 hours. Performed By: #### T ROPT ####MAIN LABCLIA:[id number] [place] [address] URINALYSISon 01-05-2018 UA APPEARANCE CLEAR Normal [facility] Comment on above: Order Comment: COLLE CTED BY: Tye acostaOID-MIDSTREAM Performed By: #### U A ####MAIN LABCLIA:[id number] [facility] [place] [address] UA BACTERIA NONE Normal NONE [facility] Comment on above: Order Comment: COLLE CTED BY: Tye acostaOID-MIDSTREAM Performed By: #### U A ####MAIN LABCLIA:[id number] [facility] [place] [address] UA SQUAMOUS EPITHELIAL 0-2 Normal [facility] Comment on above: Order Comment: COLLE CTED BY: Tye acostaOID-MIDSTREAM Performed By: #### U A ####MAIN LABCLIA:[id number] [facility] [place] [address] UA WBC 0-2 Normal 0-2 [facility] Comment on above: Order Comment: COLLE CTED BY: Tye acostaOID-MIDSTREAM Performed By: #### U A ####MAIN LABCLIA:[id number] [facility] [place] [address] Urine, color YELLOW Normal [facility] Comment on above: Order Comment: COLLE CTED BY: Tye acostaOID-MIDSTREAM Performed By: #### U A ####MAIN LABCLIA:[id number] [facility] [place] [address] Urine, erythrocytes 0-2 Normal 0-2 [facility] Comment on above: Order Comment: COLLE CTED BY: Tye acostaOID-MIDSTREAM Performed By: #### U A ####MAIN LABCLIA:[id number] [facility] [place] [address] UA BILIRUBIN Negative Normal NEGATIVE [facility] Comment on above: Order Comment: COLLE CTED BY: Tye acostaOID-MIDSTREAM Performed By: #### U A ####MAIN LABCLIA:[id number] [facility] [place] [address] UA BLOOD Negative Normal NEGATIVE [facility] Comment on above: Order Comment: COLLE CTED BY: Tye acostaOID-MIDSTREAM Performed By: #### U A ####MAIN LABCLIA:[id number] [facility] [place] [address] UA LEUKOCYTE ESTERASE TRACE Normal NEGATIVE [facility] Comment on above: Order Comment: COLLE CTED BY: Tye acostaOID-MIDSTREAM Performed By: #### U A ####MAIN LABCLIA:[id number] [facility] [place] [address] UA NITRITES Negative Normal NEGATIVE [facility] Comment on above: Order Comment: COLLE CTED BY: Tye acostaOID-MIDSTREAM Performed By: #### U A ####MAIN LABCLIA:[id number] [facility] [place] [address] UA PH 7.0 Normal [facility] Comment on above: Order Comment: COLLE CTED BY: Tye acostaOID-MIDSTREAM Performed By: #### U A ####MAIN LABCLIA:[id number] [facility] [place] [address] UA PROTEIN Negative Normal NEGATIVE [facility] Comment on above: Order Comment: COLLE CTED BY: davedVOID-MIDSTREAM Performed By: #### U A ####MAIN LABCLIA:[id number] [facility] [place] [address] UA SPECIFIC GRAVITY <=1.005 [facility] Comment on above: Order Comment: COLLE CTED BY: Tye acostaOID-MIDSTREAM Performed By: #### U A ####MAIN LABCLIA:[id number] [place] [address] UA UROBILINOGEN 0.2 mg/dL Normal 0.0-1.0 [facility] Comment on above: Order Comment: COLLE CTED BY: Tye acostaOID-MIDSTREAM Performed By: #### U A ####MAIN LABCLIA:[id number] [place] [address] Urine, glucose Negative Normal NEGATIVE [facility] Comment on above: Order Comment: COLLE CTED BY: Tye acostaOID-MIDSTREAM Performed By: #### U A ####MAIN LABCLIA:[id number] [place] [address] Urine, ketones presence Negative Normal NEGATIVE [facility] Comment on above: Order Comment: COLLE CTED BY: Tye acostaOID-MIDSTREAM Performed By: #### U A ####MAIN LABCLIA:[id number] [facility] [place] [address] URINE SOURCE VOID-MIDSTREAM Normal [facility] Comment on above: Order Comment: COLLE CTED BY: Tye acostaOID-MIDSTREAM Performed By: #### U A ####MAIN LABCLIA:[id number] [facility] [place] [address] VASCULAR RISK PANELon 2017 Cholesterol 180 mg/dL Normal 0-199 [facility] Comment on above: Order Comment: Comme nts: Use blood from ED if available Performed By: #### C BC, ZCBCGR ####MAIN LABCLIA:[id number] [facility] [place] [address] HDL Cholesterol 42 mg/dL Low >65 [facility] Comment on above: Order Comment: Comme nts: Use blood from ED if available Performed By: #### C BC, ZCBCGR ####MAIN LABCLIA:[id number] [facility] [place] [address] LDL Cholesterol 98 mg/dL Normal <129 [facility] Comment on above: Order Comment: Comme nts: Use blood from ED if available Performed By: #### C BC, ZCBCGR ####MAIN LABCLIA:[id number] [place] [address] Triglyceride 202 mg/dL High 0-199 [facility] Comment on above: Order Comment: Comme nts: Use blood from ED if available Performed By: #### C BC, ZCBCGR ####MAIN LABCLIA:[id number] [facility] [place] [address] VLDL CHOLESTEROL 40 mg/dL Normal 5-40 [facility] Comment on above: Order Comment: Comme nts: Use blood from ED if available Performed By: #### C BC, ZCBCGR ####MAIN LABCLIA:[id number] [facility] [place] [address] Vital Signs Date Time Vital Sign Value Performing Clinician Facility 05-27-2023 11:00-0500 Body height 152.4 cm Kvng Melgar Other [facility] Other 05-27-2023 11:00-0500 Diastolic blood pressure 84 mm[Hg] Kvng Melgar Other [facility] Other 05-27-2023 11:00-0500 Systolic blood pressure 124 mm[Hg] Kvng Melgar Other [facility] Other 03-04-2023 13:45-0400 Body height 152.4 cm Kvng Ball Other [facility] Other 03-04-2023 13:45-0400 Body mass index (BMI) [Ratio] 28.47 kg/m2 Kvng Ball Other [facility] Other 03-04-2023 13:45-0400 Body weight 66.13 kg Kvng Ball Other [facility] Other 03-04-2023 13:45-0400 Diastolic blood pressure 80 mm[Hg] Kvng Ball Other [facility] Other 03-04-2023 13:45-0400 Respiratory rate 12 /min Kvng Ball Other [facility] Other 03-04-2023 13:45-0400 Systolic blood pressure 117 mm[Hg] Kvng Ball Other [facility] Other 02-22-2023 11:00-0400 Body height 152.4 cm Kvng Ball Other [facility] Other 02-22-2023 11:00-0400 Body mass index (BMI) [Ratio] 28.39 kg/m2 Kvng Ball Other [facility] Other 02-22-2023 11:00-0400 Body weight 65.95 kg Kvng Ball Other [facility] Other 02-22-2023 11:00-0400 Diastolic blood pressure 83 mm[Hg] Kvng Ball Other [facility] [employer] Other 02-22-2023 11:00-0400 Respiratory rate 12 /min Kvng Ball Other [facility] [employer] Other 02-22-2023 11:00-0400 Systolic blood pressure 132 mm[Hg] Kvng Ball Other [facility] Other 01-24-2023 09:18-0400 Diastolic blood pressure 72 mm[Hg] DO Kvng Ball Work Phone: [facility] 01-24-2023 09:18-0400 Heart rate 56 /min DO Kvng Ball Work Phone: [facility] 01-24-2023 09:18-0400 Respiratory rate 14 /min DO Kvng Ball Work Phone: [facility] 01-24-2023 09:18-0400 SaO2% (BldA) [Mass fraction] 98 % DO Kvng Ball Work Phone: [facility] 01-24-2023 09:18-0400 Systolic blood pressure 126 mm[Hg] DO Kvng Ball Work Phone: [facility] 01-24-2023 07:44-0400 Body height 154.94 cm DO Kvng Ball Work Phone: [facility] 01-24-2023 07:44-0400 Body temperature 97.8 [degF] DO Kvng Ball Work Phone: [facility] 01-24-2023 07:44-0400 Body weight 65.31 kg DO Kvng Ball Work Phone: [facility] 11-18-2022 12:00-0400 Body height 152.4 cm Kvng Ball Other [facility] Other 11-18-2022 12:00-0400 Body mass index (BMI) [Ratio] 28.74 kg/m2 Kvng Ball Other [facility] Other 11-18-2022 12:00-0400 Body weight 66.77 kg Kvng Ball Other [facility] Other 11-18-2022 12:00-0400 Diastolic blood pressure 82 mm[Hg] Kvng Ball Other [facility] Other 11-18-2022 12:00-0400 Respiratory rate 12 /min Kvng Ball Other [facility] Other 11-18-2022 12:00-0400 Systolic blood pressure 125 mm[Hg] Kvng Ball Other [facility] Other 10-28-2022 14:05-0400 Diastolic blood pressure 73 mm[Hg] DO Kvng Ball Work Phone: [facility] 10-28-2022 14:05-0400 Heart rate 60 /min DO Kvng Ball Work Phone: [facility] 10-28-2022 14:05-0400 Respiratory rate 18 /min DO Kvng Ball Work Phone: [facility] 10-28-2022 14:05-0400 SaO2% (BldA) [Mass fraction] 96 % DO Kvng Ball Work Phone: [facility] 10-28-2022 14:05-0400 Systolic blood pressure 117 mm[Hg] DO Kvng Ball Work Phone: [facility] 10-28-2022 11:42-0400 Body height 154.94 cm DO Kvng Ball Work Phone: [facility] 10-28-2022 11:42-0400 Body temperature 97.9 [degF] DO Kvng Ball Work Phone: [facility] 10-28-2022 11:42-0400 Body weight 65.77 kg DO Kvng Ball Work Phone: [facility] 10-12-2022 15:00-0400 Body height 152.4 cm Kvng Ball Other [facility] Other 04-04-2023 15:00-0400 Body mass index (BMI) [Ratio] 28.78 kg/m2 Kvng Ball Other [employer] Other 10-12-2022 15:00-0400 Body weight 66.86 kg Kvng Ball Other [employer] Other 10-12-2022 15:00-0400 Diastolic blood pressure 80 mm[Hg] Kvng Ball Other [employer] Other 10-12-2022 15:00-0400 Respiratory rate 12 /min Kvng Ball Other [employer] Other 10-12-2022 15:00-0400 Systolic blood pressure 116 mm[Hg] Kvng Ball Other [employer] Other 07-27-2022 14:38-0500 Body height 152.4 cm Mavis Santiago MD Work Phone: [facility] 07-27-2022 14:38-0500 Body temperature 98.1 [degF] Mavis Santiago MD Work Phone: [facility] 07-27-2022 14:38-0500 Body weight 66.5 kg Mavis Santiago MD Work Phone: [facility] 07-27-2022 14:38-0500 Diastolic blood pressure 72 mm[Hg] Mavis Santiago MD Work Phone: [facility] 07-27-2022 14:38-0500 Heart rate 64 /min Mavis Santiago MD Work Phone: [facility] 07-27-2022 14:38-0500 Respiratory rate 16 /min Mavis Santiago MD Work Phone: [facility] 07-27-2022 14:38-0500 SaO2% (BldA) [Mass fraction] 97 % Mavis Santiago MD Work Phone: [facility] 07-27-2022 14:38-0500 Systolic blood pressure 125 mm[Hg] Mavis Santiago MD Work Phone: [facility] 07-26-2022 09:19-0500 Diastolic blood pressure 69 mm[Hg] DO Kvng Ball Work Phone: [facility] 07-26-2022 09:19-0500 Heart rate 59 /min DO Kvng Ball Work Phone: [facility] 07-26-2022 09:19-0500 Respiratory rate 16 /min DO Kvng Ball Work Phone: [facility] 07-26-2022 09:19-0500 SaO2% (BldA) [Mass fraction] 98 % DO Kvng Ball Work Phone: [facility] 07-26-2022 09:19-0500 Systolic blood pressure 111 mm[Hg] DO Kvng Ball Work Phone: [facility] 07-26-2022 07:19-0500 Body height 154.94 cm DO Kvng Ball Work Phone: [facility] 07-26-2022 07:19-0500 Body temperature 97.7 [degF] DO Kvng Ball Work Phone: [facility] 07-26-2022 07:19-0500 Body weight 66.22 kg DO Kvng Ball Work Phone: [facility] 07-21-2022 14:30-0500 Body height 152.4 cm Kvng Ball Other [facility] Other 07-21-2022 14:30-0500 Body mass index (BMI) [Ratio] 28.82 kg/m2 Kvng Ball Other [employer] Other 07-21-2022 14:30-0500 Body weight 66.95 kg Kvng Ball Other [employer] Other 07-21-2022 14:30-0500 Diastolic blood pressure 70 mm[Hg] Kvng Ball Other [employer] Other 07-21-2022 14:30-0500 Respiratory rate 12 /min Kvng Ball Other [employer] Other 07-21-2022 14:30-0500 Systolic blood pressure 118 mm[Hg] Kvng Ball Other [employer] Other 05-25-2022 13:02-0500 Body temperature 96.91 [degF] Chair Todd Work Phone: [facility] 05-25-2022 13:02-0500 Diastolic blood pressure 88 mm[Hg] Chair Todd Work Phone: [facility] 05-25-2022 13:02-0500 Heart rate 68 /min Chair Todd Work Phone: [facility] 05-25-2022 13:02-0500 Respiratory rate 18 /min Chair Ryan Work Phone: [facility] 05-25-2022 13:02-0500 SaO2% (BldA) [Mass fraction] 100 % Chair Ryan Work Phone: [facility] 05-25-2022 13:02-0500 Systolic blood pressure 146 mm[Hg] Chair Ryan Work Phone: [facility] 05-18-2022 15:42-0500 Body temperature 98.1 [degF] Mavis Santiago MD Work Phone: [facility] 05-18-2022 15:42-0500 Body weight 68.04 kg Mavis Santiago MD Work Phone: [facility] 05-18-2022 15:42-0500 Diastolic blood pressure 78 mm[Hg] Mavis Santiago MD Work Phone: [facility] 05-18-2022 15:42-0500 Heart rate 78 /min Mavis Santiago MD Work Phone: [facility] 05-18-2022 15:42-0500 Respiratory rate 16 /min Mavis Santiago MD Work Phone: [facility] 05-18-2022 15:42-0500 SaO2% (BldA) [Mass fraction] 98 % Mavis Santiago MD Work Phone: [facility] 05-18-2022 15:42-0500 Systolic blood pressure 122 mm[Hg] Mavis Santiago MD Work Phone: [facility] Encounters Encounter Date Encounter Type Care Provider Facility Start: 06-20-2023 End: 06-20-2023 ambulatory Kvng Melgar Other [employer] Other Start: 06-20-2023 Telephone encounter Kvng Melgar [facility] Start: 06-15-2023 End: 06-15-2023 ambulatory Kvng Melgar Other [employer] Other Start: 06-15-2023 Telephone encounter Kvng Melgar [facility] Start: 06-08-2023 End: 06-08-2023 ambulatory Kvng Melgar Other [employer] Other Start: 06-08-2023 Telephone encounter Kvng Melgar [facility] Start: 05-31-2023 End: 05-31-2023 ambulatory Kvng Ball Other [employer] Other Start: 05-31-2023 Telephone encounter Kvng Ball [facility] Start: 05-29-2023 End: 05-29-2023 ambulatory Kvng Ball Other [employer] Other Start: 05-29-2023 Telephone encounter Kvng Ball [facility] Start: 05-28-2023 End: 05-28-2023 ambulatory Kvng Ball Other [employer] Other Start: 05-28-2023 Telephone encounter Kvng RODRIGES [facility] Start: 05-27-2023 End: 05-27-2023 ambulatory Kvng Melgar Other [employer] Other Start: 05-27-2023 Office outpatient visit 25 minutes Kvng Melgar [facility] Start: 05-25-2023 End: 05-25-2023 ambulatory Kvng Melgar Other [employer] Other Start: 05-25-2023 Telephone encounter Kvng Melgar [facility] Start: 05-20-2023 End: 05-20-2023 ambulatory Kvng Melgar Other [employer] Other Start: 05-20-2023 Telephone encounter Kvng RODRIGES [facility] Start: 05-10-2023 End: 05-10-2023 ambulatory Imad Asaad Other [employer] Other Start: 05-10-2023 Telephone encounter Imad Asaad [facility] Start: 04-26-2023 End: 04-26-2023 ambulatory Kvng Melgar Other [employer] Other Start: 04-26-2023 Nursing evaluation o f patient and report Kvng Melgar [facility] Start: 03-23-2023 End: 03-23-2023 ambulatory Imad Asaad Other [employer] Other Start: 03-23-2023 Telephone encounter Imad Asaad [facility] Start: 03-10-2023 End: 03-10-2023 ambulatory Kvng Melgar Other [employer] Other Start: 03-10-2023 Telephone encounter Kvng RODRIGES [facility] Start: 03-07-2023 End: 03-07-2023 ambulatory Kvng Melgar Other [employer] Other Start: 03-07-2023 Telephone encounter Kvng Melgar [facility] Start: 03-04-2023 End: 03-04-2023 ambulatory Kvng Ermelinda Other [employer] Other Start: 03-04-2023 Office outpatient visit 15 minutes Kvng Ermelinda [facility] Start: 02-28-2023 End: 02-28-2023 ambulatory Kvng Ball Other [employer] Other Start: 02-28-2023 Telephone encounter Kvng Melgar [facility] Start: 02-22-2023 End: 02-22-2023 ambulatory Kvng Ball Other [employer] Other Start: 02-22-2023 Office outpatient visit 25 minutes Kvng Ermelinda [facility] Start: 02-21-2023 End: 02-21-2023 ambulatory Kvng Ball Other [employer] Other Start: 02-21-2023 Telephone encounter Kvng Melgar [facility] Start: 01-24-2023 Telephone encounter Sadiq Pollard [facility] Start: 01-24-2023 End: 01-24-2023 ambulatory Imad [employer] Other Start: 01-24-2023 End: 01-24-2023 Admission to same day surgery center DO Kvng Melgar Work Phone: [facility] Work Phone: Start: 12-28-2022 End: 12-28-2022 ambulatory Kvng Ball Other [employer] Other Start: 12-28-2022 Telephone encounter Kvng Ball [facility] Start: 11-19-2022 End: 11-19-2022 ambulatory Kvng Ball Other [employer] Other Start: 11-19-2022 Telephone encounter Kvng Ball [facility] Start: 11-18-2022 End: 11-18-2022 ambulatory Kvng Melgar Other [employer] Other Start: 11-18-2022 Patient encounter procedure Kvng Melgar [facility] Start: 11-01-2022 End: 11-01-2022 ambulatory Imad Asaad Other [employer] Other Start: 11-01-2022 Telephone encounter Imad Asaad [facility] Start: 10-28-2022 Telephone encounter Sadiq Pollard [facility] Start: 10-28-2022 End: 10-28-2022 ambulatory Imad Asaad Facility:[facility] Start: 10-28-2022 End: 10-28-2022 Admission to same day surgery center DO Kvng Melgar Work Phone: [facility] Work Phone: Start: 10-28-2022 End: 10-28-2022 ambulatory DO Kvng Melgar Work Phone: [facility] Work Phone: Start: 10-21-2022 End: 10-21-2022 ambulatory Kvng Melgar Other [employer] Other Start: 10-21-2022 Telephone encounter [facility] Start: 10-20-2022 End: 10-21-[address] KVNG MELGAR Facility:[facility] Start: 10-12-2022 End: 10-12-2022 ambulatory Kvng Melgar Other [employer] Other Start: 10-12-2022 Office outpatient visit 15 minutes Kvng ROSARIO [facility] Start: 10-12-2022 Telephone encounter Kvng Armstrong Constitutional Law Professor Start: 09-27-2022 End: 10-13-[address] KVNG MELGAR Facility:[facility] Start: 07-29-2022 End: 07-29-2022 ambulatory Kvng Melgar Other [employer] Other Start: 07-29-2022 Telephone encounter Kvng Melgar [facility] Start: 07-27-2022 End: 07-27-2022 ambulatory KVNG MELGAR Facility:[facility] Start: 07-27-2022 End: 07-27-2022 Office outpatient visit 15 minutes Mavis Santiago MD Work Phone: Hematology/Oncology Comment on above: Iron deficiency (Danielle bethany Dx) Start: 07-26-2022 Telephone encounter Imad Asaad [facility] Start: 07-26-2022 End: 07-26-2022 ambulatory Imad Asaad Facility:[facility] Start: 07-26-2022 End: 07-26-2022 Admission to same day surgery center DO Kvng Melgar Work Phone: [facility] Work Phone: Start: 07-26-2022 End: 07-26-2022 ambulatory DO Kvng Melgar Work Phone: [facility] Work Phone: Start: 07-22-2022 End: 07-22-2022 ambulatory Imad Asaad Facility:[facility] Start: 07-22-2022 End: 07-22-2022 Patient encounter procedure DO Kvng Melgar Work Phone: [facility] [employer] Work Phone: Start: 07-21-2022 End: 07-21-2022 ambulatory Kvng Melgar Other [facility] Other Start: 07-21-2022 Office outpatient visit 25 minutes Kvng Melgar [facility] Start: 06-02-2022 Social Work Marcia MONROEW Hematolo gy/Oncology Start: 05-25-2022 Telephone encounter Financial Navigator Damon Work Phone: Hematology/Oncology Comment on above: Benefits Investigati on Start: 05-25-2022 End: 05-26-2022 ambulatory Chair Perry Delgado Work Phone: Hematology/Oncology Comment on above: Iron deficiency anem ia, unspecified iron deficiency anemia type (Primary Dx); Iron deficiency Start: 05-18-2022 End: 05-18-2022 Patient encounter procedure Mavis Santiago MD Work Phone: [facility] Start: 05-18-2022 End: 05-18-2022 ambulatory Mavis Santiago MD Work Phone: Hematology/Oncology Comment on above: Iron deficiency (Danielle bethany Dx) Start: 05-18-2022 Telephone encounter Adebayo RODRIGES G [employer] Start: 05-17-2022 Chart abstracting Mavis abraham MD Work Phone: Hematology/Oncology Start: 05-04-2022 End: 05-05-[address] KVNG MELGAR Facility:[facility] Start: 03-31-2022 End: 03-31-[address] KVNG MELGAR Facility:[facility] Start: 03-26-2022 End: 03-27-[address] KVNG MELGAR Facility:[facility] Start: 02-09-2022 End: 02-10-[address] KVNG MELGAR Facility:[facility] Start: 01-27-2022 End: 01-27-2022 ambulatory NISSA PACE . Facility:[facility] Start: 01-01-2022 End: 01-02-2022 ambulatory LIDA RAY . Facility:[facility] Start: 12-18-2021 End: 12-19-[address] KVNG MELGAR Facility:[facility] Start: 06-09-2021 Adult health examination Fab Melgar Other [employer] Other Start: 08-02-2019 Preoperative cardiovascular examination Kvng Melgar Other [employer] Other Start: 05-31-2019 Gynecological examin ation normal Kvng Melgar Other [employer] Other Start: 01-05-2018 End: 01-06-2018 Evaluation and management of inpatient No Doctor Facility:[facility] Procedures Date Procedure Procedure Detail Performing Clinician Start: 01-24-2023 Esophagogastroduodenoscopy DO Kvng bucio Work Phone: Start: 10-28-2022 Esophagogastroduodenoscopy DO Kvng Guerrero all Work Phone: Start: 07-26-2022 Esophagogastroduodenoscopy DO Kvng Guerrero all Work Phone: Start: 07-22-2022 SARS Antigen (LFIA) DO Kvng Melgar Work Phone: Depression screening Adebayo Pan Other Depression screening Aidee Melgar Other Screening for malign ant neoplasm of breast Adebayo Pan Other Screening for malign ant neoplasm of breast Kvng Melgar Other Plan of Treatment Date Care Activity Detail Author Start: 01-24-2023 End: 03-26-2023 CBC W Auto Differential panel - Blood CBC + DIFF Lab Routine Iron deficiency Expected: 01/24/2023 (Approximate), Expires: 03/26/2023 [facility] Work Phone: Comment on above: Expected: 01/24/2023 (Approximate), Expires: 03/26/2023 Start: 01-24-2023 End: 07-27-2023 Ferritin [Mass/volume] in Serum or Plasma FERRITIN BLD Lab Routine Iron deficiency Expected: 01/24/2023 (Approximate), Expires: 07/27/2023 [facility] Work Phone: Comment on above: Expected: 01/24/2023 (Approximate), Expires: 07/27/2023 Start: 01-24-2023 End: 07-27-2023 Iron and Iron binding capacity panel - Serum or Plasma IRON + TIBC Lab Routine Iron deficiency Expected: 01/24/2023 (Approximate), Expires: 07/27/2023 [facility] Work Phone: Comment on above: Expected: 01/24/2023 (Approximate), Expires: 07/27/2023 Start: 01-24-2023 [facility] Start: 10-28-2022 [facility] Start: 07-27-2022 End: 09-26-2022 CBC W Auto Differential panel - Blood CBC + DIFF Lab Routine Iron deficiency Expected: 07/27/2022 (Approximate), Expires: 09/26/2022 [facility] Work Phone: Comment on above: Expected: 07/27/2022 (Approximate), Expires: 09/26/2022 Start: 07-27-2022 End: 05-18-2023 Ferritin [Mass/volume] in Serum or Plasma FERRITIN BLD Lab Routine Iron deficiency Expected: 07/27/2022 (Approximate), Expires: 05/18/2023 [facility] Work Phone: Comment on above: Expected: 07/27/2022 (Approximate), Expires: 05/18/2023 Start: 07-27-2022 End: 05-18-2023 Iron and Iron binding capacity panel - Serum or Plasma IRON + TIBC Lab Routine Iron deficiency Expected: 07/27/2022 (Approximate), Expires: 05/18/2023 [facility] Work Phone: Comment on above: Expected: 07/27/2022 (Approximate), Expires: 05/18/2023 Start: 07-27-2022 End: 09-26-2022 RETIC COUNT RETIC COUNT Lab Routine Iron deficiency Expected: 07/27/2022 (Approximate), Expires: 09/26/2022 [facility] Work Phone: Comment on above: Expected: 07/27/2022 (Approximate), Expires: 09/26/2022 Start: 07-26-2022 [facility] Start: 07-11-2022 ADVANCE DIRECTIVE DISCUSSION ADVANCE DIRECTIVE DISCUSSION [facility] Start: 07-11-2022 DEPRESSION ASSESSMENT DEPRESSION ASS ESSMENT [facility] Start: 03-11-2022 Influenza vaccination INFLUENZA (#1) [facility] Start: 01-30-2022 COVID-19 VACCINE (5 - Booster for Pfizer series) COVID-19 VACCINE (5 - Booster for Pfizer series) [facility] Start: 07-11-2021 ADVANCE DIRECTIVE DISCUSSION ADVANCE DIRECTIVE DISCUSSION [facility] Start: 07-11-2021 DEPRESSION ASSESSMENT DEPRESSION ASS ESSMENT [facility] Start: 03-29-2019 PNEUMOCOCCAL: 65+ (2 - PCV) PNEUMOCOCCAL: 65+ (2 - PCV) [facility] Start: 11-15-2017 DIABETES SCREEN DIABETES SCREEN [facility] Start: 04-23-2016 PNEUMOCOCCAL: 65+ (2 - PCV) PNEUMOCOCCAL: 65+ (2 - PCV) [facility] Start: 2003 BONE DENSITY BONE DENSITY [facility] Start: 01-22-1988 SHINGRIX VACCINE (1 of 2) SHINGRIX VACCINE (1 of 2) [facility] Start: 1957 Urine microalbumin profile DTAP,TDAP,TD (1 - Tdap) [facility] Start: 1940 COVID-19 VACCINE (#1) COVID-19 VACCI NE (#1) [facility] Patient Education [facility] Work Phone: [facility] Immunizations Immunization Date Immunization Notes Care Provider Fa [facility] 04-26-2023 influenza, high dose seasonal, preservative-free Kvng Melgar Other [employer] Other 10-19-2022 COVID-19 Pfizer (bivalent) Kvng Melgar Other [employer] Other 12-05-2021 COVID-19 Pfizer Kvng mac Other [employer] [facility] Other 12-05-2021 COVID-19 Vaccine Pfi zer - Documentation Purposes Only Kvng Melgar Other [employer] Other 04-14-2021 COVID-19 Vaccine Pfi zer - Documentation Purposes Only Kvng Melgar Other [employer] Other 04-06-2021 influenza virus vaccine, split virus (incl. purified surface antigen) Kvng Melgar Other [employer] Other 04-06-2021 influenza, high-dose , quadrivalent vaccine (FLUZONE HIGH DOSE QUADRIVALENT) Mavis Santiago MD Work Phone: [facility] 08-27-2020 COVID-19 Vaccine Pfi zer - Documentation Purposes Only Kvng Melgar Other [employer] Other 08-04-2020 COVID-19 Vaccine Pfi zer - Documentation Purposes Only Kvng Ermelinda Other [employer] Other 04-04-2020 influenza virus vaccine, split virus (incl. purified surface antigen) Kvng Melgar Other [employer] Other 04-04-2020 influenza, high-dose , quadrivalent vaccine (FLUZONE HIGH DOSE QUADRIVALENT) Mavis Santiago MD Work Phone: [facility] 04-18-2019 influenza, injectabl e, quadrivalent, preservative free Mavis Santiago MD Work Phone: [facility] 03-22-2019 Seasonal trivalent influenza vaccine, adjuvanted, preservative free Mavis Santiago MD Work Phone: [facility] 04-13-2018 influenza virus vaccine, split virus (incl. purified surface antigen) Kvng Melgar Other [employer] Other 04-13-2018 Seasonal trivalent influenza vaccine, adjuvanted, preservative free Mavis Santiago MD Work Phone: [facility] 03-29-2018 pneumococcal polysaccharide vaccine, 23 valent Mavis Santiago MD Work Phone: [facility] 05-25-2017 Seasonal trivalent influenza vaccine, adjuvanted, preservative free Mavis Santiago MD Work Phone: [facility] 04-27-2016 influenza virus vaccine, split virus (incl. purified surface antigen) Kvng Melgar Other [employer] Other 04-27-2016 influenza, high dose seasonal, preservative-free Mavis Santiago MD Work Phone: [facility] 04-23-2015 influenza, injectabl e, quadrivalent, preservative free Mavis Santiago MD Work Phone: [facility] 04-23-2015 pneumococcal polysaccharide vaccine, 23 valent Mavis Santiago MD Work Phone: [facility] 04-18-2015 influenza virus vaccine, split virus (incl. purified surface antigen) Kvng Melgar Other [facility] Other 04-18-2015 pneumococcal conjuga te vaccine, 13 valent Kvng Melgar Other [facility] Other 05-21-2014 influenza, injectabl e, quadrivalent, contains preservative Adebayo Pan Other [employer] Other 04-26-2014 tetanus and diphther ia toxoids, adsorbed, preservative free, for adult use (5 Lf of tetanus toxoid and 2 Lf of diphtheria toxoid) Kvng Melgar Other [employer] Other 05-09-2013 pneumococcal polysaccharide vaccine, 23 valent Kvng Melgar Other [employer] Other 05-09-2013 tetanus and diphther ia toxoids, adsorbed, preservative free, for adult use (5 Lf of tetanus toxoid and 2 Lf of diphtheria toxoid) Kvng Melgar Other [employer] Other Payers Date Payer Category Payer Self-pay [id number] 2014 Private Health Insurance [id number] 2003 Medicare [id number] 1959 Medicare [id number] 1959 Private Health Insurance [id number] 1938 Unknown [id number] 2.16.84 [id number] 1938 Unknown [id number] 2.16.84 [id number] 1938 Unknown [id number] 2.16.84 [id number] 1938 Unknown [id number] 2.16.84 [id number] 1938 Unknown [id number] 2.16.84 [id number] 1938 Unknown [id number] 2.16.84 [id number] 1938 Unknown [id number] 2.16.84 [id number] 1938 Unknown [id number] 2.16.84 [id number] 1938 Unknown [id number] 2.16.84 [id number] Medicare [id number] Unknown [id number] 2.16.8 [id number] Unknown [id number] 2.16.8 [id number] Unknown [id number] 2.16.8 [id number] Unknown [id number] 2.16.8 [id number] Social History Date Type Detail Facility Start: 01-03-2015 End: 01-24-2023 Tobacco smoking status OHIS Ex-smoker [facility] History of tobacco use Current smoker [facility] Start: 01-03-2015 Tobacco use and exposure Smokeless tobacco non-user [facility] Start: 05-17-2022 End: 07-27-2022 Alcohol intake Ex-drinker (finding) [facility] Start: 1940 Sex Assigned At Not on file [facility] Start: 05-08-2022 End: 05-25-2022 Exposure to SARS-CoV-2 (event) Not sure [facility] Start: 07-26-2022 End: 10-28-2022 Tobacco smoking status NHIS Never smoked tobacco (finding) [facility] Start: 1940 Sex Assigned At Female F [facility] Sex Assigned At Sex Assigned At Bir [facility] [employer] Other Goals Date Patient Goal Desired Activity /State Clinical Notes 11-28-2019 to 06-20-2023 Note Date & Type Note Facility 06-20-2023 Evaluation note Encounter Date Diagnosis Assessment Notes Jun, Lumbar spondylosis (ICD-10 - M47.816) [facility] Other 11-21-2023 Evaluation note* Encounter Date Diagnosis Assessment Notes Treatment Notes Treatment Clinical Notes May, Claustrophobia (ICD-10 - F40.240) [facility] Other 11-17-2023 Evaluation note* Encounter Date Diagnosis Assessment Notes Treatment Notes Treatment Clinical Notes May, Stage 3a chronic kidney disease (ICD-10 - N18.31) The patient is instructed on adequate control of hypertension and diabetes, if appropriate. They are also educated on the associated risks of NSAIDs and PPI use with kidney disease. They were instructed on adequate fluid balance and to avoid dehydration. 17 May, 2023 Primary hypertension (ICD-10 - I10) This patient is instructed to consume a healthy, low-fat, low-salt diet. They are also encouraged to continue exercise to achieve/maintain a normal BMI. May, Hyperlipidemia type II (ICD-10 - E78.01) Instructed on diet and exercise with continued statin therapy.Discussed the beneficial effects of lowering cholesterol in reducing the risk for cerebrovascular and cardiovascular disease. May, Autoimmune thyroiditis (ICD-10 - E06.3) Clinically euthyroid, check TSH yearly May, Chronic venous insufficiency (ICD-10 - I87.2) Avoid salt and elevate lower extremities, support stockings, inspect legs and feet daily for blisters and ulcerations. May, Gastroesophageal reflux disease 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 hemorrhage (ICD-10 - K21.00) Diet instructions: Smaller portions, avoid eating and laying flat, avoid eating or drinking prior to bedtime. Weight loss. May, Cervicalgia (ICD-10 - M54.2) Reviewed etiology, c/o daily headaches, not responding to medication. Instructed to avoid NSAIDs due to GIB, Fe deficiency Discussed PT and pain management referral May, Lumbar spondylosis (ICD-10 - M47.816) The patient is instructed to avoid bending, twisting or lifting. They are to use intermittent heat and ice as needed. They may schedule a massage or gentle manipulation. They may safely use Tylenol as needed. May, Memory impairment (ICD-10 - R41.3) Very concerned for ongoing memory difficulties. She feels it is more than should be expected for age. She c/o word searching, forgetfullness. Increased demands of caring for her husbanc contribute. Suggest r/o metabolic abnormalities, MRI brain, recheck MoCA and referral to Neurology. May, Paresthesias (ICD-10 - R20.2) May be vitamin deficiencies. Fe replaced w/o improvement. Recheck thyroid and B12 levels May, Fatigue, unspecified type (ICD-10 - R53.83) Check labs: CBC, TSH, BS May, Other specified hypothyroidism (ICD-10 - E03.8) Sequence Design Other 11-10-2023 Evaluation note* Encounter Date Diagnosis Assessment Notes Treatment Notes Treatment Clinical Notes May, Lumbar spondylosis (ICD-10 - M47.816) Sequence [employer] Other 09-13-2023 Evaluation note* Encounter Date Diagnosis Assessment Notes Treatment Notes Treatment Clinical Notes Mar, Chronic superficial gastritis with bleeding (ICD-10 - K29.31) Sequence Design Other 08-25-2023 Evaluation note* Encounter Date Diagnosis Assessment Notes Treatment Notes Treatment Clinical Notes Feb, Allergic contact dermatitis due to plants, except food (ICD-10 - L23.7) Cool compresses, topical steroids and begin Prednisone. _update on Feb, Cellulitis of left upper extremity (ICD-10 - L03.114) Elevate and begin antibiotics, update on Tuesday Sequence Design Other 08-15-2023 Evaluation note* Encounter Date Diagnosis Assessment Notes Treatment Notes Treatment Clinical Notes Feb, Essential hypertension (ICD-10 - I10) This patient is instructed to consume a healthy, low-fat, low-salt diet. They are also encouraged to continue exercise to achieve/maintain a normal BMI. Feb, Stage 3a chronic kidney disease (ICD-10 - N18.31) The patient is instructed on adequate control of hypertension and diabetes, if appropriate. They are also educated on the associated risks of NSAIDs and PPI use with kidney disease. They were instructed on adequate fluid balance and to avoid dehydration. Feb, Hyperlipidemia type II (ICD-10 - E78.01) Instructed on diet and exercise with continued statin therapy.Discussed the beneficial effects of lowering cholesterol in reducing the risk for cerebrovascular and cardiovascular disease. Feb, Chronic superficial gastritis with bleeding (ICD-10 - K29.31) Avoid NSAIDs. Life long PPI use. Monitor for s/s GIB: abd pain, N/V, hematemesis, melena or hematochezia Feb, Iron deficiency anemia due to chronic blood loss (ICD-10 - D50.0) Monitor CBC and Ferritin level. IV Fe w/ low Fe and anemia. No oral Fe recommended, continue healthy diet Avoid NSAIDs use Feb, Autoimmune thyroiditis (ICD-10 - E06.3) Euthyroid, yearly TSH Feb, Other specified hypothyroidism (ICD-10 - E03.8) Feb, Lumbar spondylosis (ICD-10 - M47.816) The patient is instructed to avoid bending, twisting or lifting. They are to use intermittent heat and ice as needed. They may schedule a massage or gentle manipulation. They may safely use Tylenol as needed. Failed to improve w/ PT, pain managment or stretching Continue Tylenol and Tramadol as needed Discussed pros/cons w/ Cymbalta, Neurotin and Lyrica - hold for now Feb, Overweight (ICD-10 - E66.3) This patient has been instructed on a low-fat, high-fiber diet. They are instructed to reduce calories, portion sizes and snacks. It is recommended that they exercise for 30 minutes, 3-5 times weekly. Sequence [employer] Other 08-14-2023 Evaluation note* Encounter Date Diagnosis Assessment Notes Treatment Notes Treatment Clinical Notes Feb, Lumbar spondylosis (ICD-10 - M47.816) Sequence [employer] Other 06-20-2023 Evaluation note* Encounter Date Diagnosis Assessment Notes Treatment Notes Treatment Clinical Notes Dec, Autoimmune thyroiditis (ICD-10 - E06.3) Sequence Design Other 05-12-2023 Evaluation note* Encounter Date Diagnosis Assessment Notes Treatment Notes Treatment Clinical Notes November, Lumbar spondylosis (ICD-10 - M47.816) Sequence Design Other 05-11-2023 Evaluation note* Encounter Date Diagnosis Assessment Notes Treatment Notes Treatment Clinical Notes November, Medicare annual wellness visit, subsequent (ICD-10 - Z00.00) Personalized health advice was given to the beneficiary including a written plan for screenings discussed and provided. Advanced care planning reviewed and/or information given as requested. Additional counseling was provided here today in regards to, [ ]. The above visit was performed by [ ], under direct supervision of [ ]. Document reviewed and amended by provider signed below. November, Essential hypertension (ICD-10 - I10) This patient is instructed to consume a healthy, low-fat, low-salt diet. They are also encouraged to continue exercise to achieve/maintain a normal BMI. November, Stage 3a chronic kidney disease (ICD-10 - N18.31) The patient is instructed on adequate control of hypertension and diabetes, if appropriate. They are also educated on the associated risks of NSAIDs and PPI use with kidney disease. They were instructed on adequate fluid balance and to avoid dehydration. November, Hyperlipidemia type II (ICD-10 - E78.01) Instructed on diet and exercise with continued statin therapy.Discussed the beneficial effects of lowering cholesterol in reducing the risk for cerebrovascular and cardiovascular disease. November, Hypocalcemia (ICD-10 - E83.51) Avoid November, Chronic superficial gastritis with bleeding (ICD-10 - K29.31) Avoid NSAIDS and aspirin. INcrease PPI to bid. Monitor for s/s bleeding and notify office: hemoptysis, melena or hematochezia H/H, Ferritin f/u GI November, Iron deficiency anemia due to chronic blood loss (ICD-10 - D50.0) Has received IV Fe in recent past. Recheck Fe, TIBC, Ferritin November, Overweight (ICD-10 - E66.3) This patient has been instructed on a low-fat, high-fiber diet. They are instructed to reduce calories, portion sizes and snacks. It is recommended that they exercise for 30 minutes, 3-5 times weekly. November, Autoimmune thyroiditis (ICD-10 - E06.3) Euthyroid, check TSH yearly November, Other specified hypothyroidism (ICD-10 - E03.8) November, Lumbar spondylosis (ICD-10 - M47.816) Sequence Design Other 04-20-2023 [facility] NotePROCEDURE: XR HIP LT 2 3V W PELVIS HISTORY: Long-term current use of opiate analgesic drug ; chronic left hip pain COMPARISON: None. FINDINGS: BONES:Degenerative osteophytes along superior margin of acetabulum bilaterally, with mild joint space narrowing bilaterally. No fracture, dislocation, bone lesion. SOFT TISSUES:No visible soft tissue swelling. EFFUSION:None visible. OTHER: Marked narrowing of the visible lower lumbar intervertebral disc spaces. IMPRESSION: 1. Mild to moderate degenerative joint disease of the hips; fairly symmetric bilaterally. 2. Marked degenerative joint disease of lower lumbar spine. Electronically authenticated by: ANTHONY GUIDRY Date: 2022-10-20 15:40[facility]04-04-20[facility] Evaluation note* Encounter Date Diagnosis Assessment Notes Treatment Notes Treatment Clinical Notes Oct, Lumbar spondylosis (ICD-10 - M47.816) The patient is instructed to avoid bending, twisting or lifting. They are to use intermittent heat and ice as needed. They may schedule a massage or gentle manipulation. They may safely use Tylenol as needed. Oct, Primary osteoarthritis of left hip (ICD-10 - M16.12) Ice/heat and Voltaren Gel. Tramadol as needed to complete ADL Oct, Chronic use of opiat e for therapeutic purpose (ICD-10 - Z79.891) This patient requires opiate use on a daily basis to control pain.This patient does not exhibit drug-seeking or aberrant behavior.This patient is able to continue with ADL, with an adequate quality of life, that they would not be able to achieve without the prescription pain medication.There has been no surgical treatment recommended for this condition.Use of nonopiate treatment should be continued, such as nonstrenuous and aquatic exercises.This patient has a pain management contract and they have been counseled on safe storage of the medication.They have been counseled on the risks of concomitant use with alcohol or sedating meds. PDMP is being followed and this patient's OAR[place] report is being monitored every 90 days. Oct, Screening mammogram for breast cancer (ICD-10 - Z12.31) Sequence [employer] Other 01-17-2023 NoteHNO ID: [id number] Author: Mavis Santiago MD Service: ? Author Type: Physician Type: Progress Notes Filed: 07/27/2022 2:56 PM Note Text: PATIENT NAME: Tangela Trinidad CLINIC NO.: [id number] ATTENDING PHYSICIAN: Mavis Santiago MD DATE OF SERVICE: July 27, 2022 Some of the elements of this note have been copied from my previous progress note dated 05/18/2022. All the information has been reviewed carefully. Dear Dr. Kvng Melgar here is an update on a follow up visit on female Tangela Trinidad at the clinic July 27, 2022 Diagnosis: SHELLY Treatment History: IV Iron 10/2018. Repeat 05/2022 HPI: Tangela Trinidad is a 82 year old year old female here for follow up. Previously saw Dr. Salcedo with recurrent SHELLY and source unknown. Last colonoscopy 2012 which was normal. Denies any changes in her bowel habits and also denies any epigastric pain and or change in bowel habits. She is doing well and had a repeat colonoscopy and EGD 07/2022: 8 mm gastric ulcer, greater curvature and 12 mm gastric ulcer proxima gastric curvature and colonoscopy normal. Path negative for malignancy and neg for H. Pylori PAST MEDICAL HISTORY Diagnosis Date Anemia CVI (common variable immunodeficiency) (HCC) GERD (gastroesophageal reflux disease) HTN (hypertension) Hyperlipidemia Hypothyroidism IBS (irritable bowel syndrome) Social History Tobacco Use Smoking status: Former Smokeless tobacco: Never Vaping Use Vaping Use: Never used Substance Use Topics Alcohol use: Not Currently Drug use: Never No family history on file. Past medical, social and family history reviewed without any changes. REVIEW OF SYSTEMS GENERAL: No weight loss, malaise or fevers. No night sweats. HEENT: Negative for headaches, No changes in hearing or vision, no nose bleeds or other nasal problems. RESPIRATORY: Negative for cough, wheezing and shortness of breath CARDIOVASCULAR: Negative for chest pain, leg swelling and palpitations GI: Negative for abdominal discomfort, blood in stools or black stools and change in bowel habits : Negative for dysuria, frequency and incontinence MUSCULOSKELETAL: Negative for joint pain or swelling, back pain, and muscle pain. SKIN: Negative for lesions, rash, and itching. HEMATOLOGY/LYMPHOLOGY Negative for prolonged bleeding, bruising easily, and swollen nodes. NEURO: Negative for numbness or tingling of hands/feet. No weakness. PHYSICAL EXAMINATION: BP 125/72 Pulse 64 Temp (Src) 98.1 (Temporal) Resp 16 Ht 5' 0 (1.52m) Wt 146 lb 9.6 oz (66.5kg) SpO2 97% BMI 28.63 kg/(m2). Wt 68 kg (150 lb) BMI 29.29 kg/m2 Last 3 Encounter Wt Readings: Date: Wt: 05/18/2022 68 kg (150 lb) 01/10/2019 66 kg (145 lb 6.4 oz) 10/11/2018 65.1 kg (143 lb 9.6 oz) General appearance:ECOG PERFORMANCE STATUS: 1- Restricted in physically strenuous activity. Carries out light duty. Patient in NAD. Skin: Skin color, texture, turgor normal. No rashes or lesions. Eyes: Anicteric sclera. Pupils are equally round and reactive to light. Extraocular movements are intact. Lymph Nodes: No cervical, supraclavicular, axillary or inguinal adenopathy. Oropharynx: Lips, mucosa, and tongue normal. Back: No pain to percussion. Negative SLR test Lungs clear to auscultation, No wheezing or rhonchi Heart: RRR without murmur, gallop, or rubs. Abdomen soft, non-tender. No masses, organomegaly Extremities: No deformities. No edema Neuro: Gait and speech normal. Reflexes normal and symmetric. Muscular strength intact. Sensation grossly intact. Rectal: Deferred : Deferred LABS: Glucose (mg/dL) Date Value 11/15/2014 87 Potassium (mmol/L) Date Value 11/15/2014 5.0 Sodium (mmol/L) Date Value 11/15/2014 137 Chloride (mmol/L) Date Value 11/15/2014 103 CO2 (mmol/L) Date Value 11/15/2014 21 Creatinine (mg/dL) Date Value 11/15/2014 1.13 BUN (mg/dL) Date Value 11/15/2014 15 Anion Gap (mmol/L) Date Value 11/15/2014 13 Calcium (mg/dL) Date Value 11/15/2014 8.6 Protein, Total (g/dL) Date Value 11/15/2014 5.6 Albumin (g/dL) Date Value 11/15/2014 3.4 Bilirubin, Total (mg/dL) Date Value 11/15/2014 <0.2 Alkaline Phosphatase (U/L) Date Value 11/15/2014 43 AST (U/L) Date Value 11/15/2014 24 ALT (U/L) Date Value 11/15/2014 18 WBC Date Value Ref Range Status 07/27/2022 8.95 3.70 - 11.00 k/uL Final RBC Date Value Ref Range Status 07/27/2022 4.60 3.90 - 5.20 m/uL Final Hemoglobin Date Value Ref Range Status 07/27/2022 13.0 11.5 - 15.5 g/dL Final Hematocrit Date Value Ref Range Status 07/27/2022 39.6 36.0 - 46.0 % Final MCV Date Value Ref Range Status 07/27/2022 86.1 80.0 - 100.0 fL Final MCH Date Value Ref Range Status 07/27/2022 28.3 26.0 - 34.0 pg Final MCHC Date Value Ref Range Status 07/27/2022 32.8 30.5 - 36.0 g/dL Final RDW-CV Date Value Ref Range Status 07/27/2022 18.0 (H) (more content not included)...[facility] 07-27-2022 History of Present illness Narrative* Mavis Santiago MD - 07/27/2022 2:48 PM EST PATIENT NAME: Tangela Trinidad [facility] NO.: [id number] ATTENDING PHYSICIAN: Mavis Santiago MD DATE OF SERVICE: July 27, 2022 Some of the elements of this note have been copied from my previous progress note dated 05/18/2022. All the information has been reviewed carefully. Dear Dr. Kvng Melgar here is an update on a follow up visit on female Tangela Trinidad at the clinic July 27, 2022 Diagnosis: SHELLY Treatment History: IV Iron 10/2018. Repeat 05/2022 HPI: Tangela Trinidad is a 82 year old year old female here for follow up. Previously saw Dr. Salcedo with recurrent SHELLY and source unknown. Last colonoscopy 2012 which was normal. Denies any changes in her bowel habits and also denies any epigastric pain and or change in bowel habits. She is doing well and had a repeat colonoscopy and EGD 07/2022: 8 mm gastric ulcer, greater curvature and 12 mm gastric ulcer proxima gastric curvature and colonoscopy normal. Path negative for malignancy and neg for H. Pylori PAST MEDICAL HISTORY Diagnosis Date Anemia CVI (common variable immunodeficiency) (HCC) GERD (gastroesophageal reflux disease) HTN (hypertension) Hyperlipidemia Hypothyroidism IBS (irritable bowel syndrome) Social History Tobacco Use Smoking status: Former Smokeless tobacco: Never Vaping Use Vaping Use: Never used Substance Use Topics Alcohol use: Not Currently Drug use: Never No family history on file. Past medical, social and family history reviewed without any changes. REVIEW OF SYSTEMS GENERAL: No weight loss, malaise or fevers. No night sweats. HEENT: Negative for headaches, No changes in hearing or vision, no nose bleeds or other nasal problems. RESPIRATORY: Negative for cough, wheezing and shortness of breath CARDIOVASCULAR: Negative for chest pain, leg swelling and palpitations GI: Negative for abdominal discomfort, blood in stools or black stools and change in bowel habits : Negative for dysuria, frequency and incontinence MUSCULOSKELETAL: Negative for joint pain or swelling, back pain, and muscle pain. SKIN: Negative for lesions, rash, and itching. HEMATOLOGY/LYMPHOLOGY Negative for prolonged bleeding, bruising easily, and swollen nodes. NEURO: Negative for numbness or tingling of hands/feet. No weakness. PHYSICAL EXAMINATION: BP 125/72 Pulse 64 Temp (Src) 98.1 (Temporal) Resp 16 Ht 5' 0 (1.52m) Wt 146 lb 9.6 oz (66.5kg) SpO2 97% BMI 28.63 kg/(m^2). Wt 68 kg (150 lb) BMI 29.29 kg/m2 Last 3 Encounter Wt Readings: Date: Wt: 05/18/2022 68 kg (150 lb) 01/10/2019 66 kg (145 lb 6.4 oz) 10/11/2018 65.1 kg (143 lb 9.6 oz) General appearance:ECOG PERFORMANCE STATUS: 1- Restricted in physically strenuous activity. Carries out light duty. Patient in NAD. Skin: Skin color, texture, turgor normal. No rashes or lesions. Eyes: Anicteric sclera. Pupils are equally round and reactive to light. Extraocular movements are intact. Lymph Nodes: No cervical, supraclavicular, axillary or inguinal adenopathy. Oropharynx: Lips, mucosa, and tongue normal. Back: No pain to percussion. Negative SLR test Lungs clear to auscultation, No wheezing or rhonchi Heart: RRR without murmur, gallop, or rubs. Abdomen soft, non-tender. No masses, organomegaly Extremities: No deformities. No edema Neuro: Gait and speech normal. Reflexes normal and symmetric. Muscular strength intact. Sensation grossly intact. Rectal: Deferred : Deferred LABS: Glucose (mg/dL) Date Value 11/15/2014 87 Potassium (mmol/L) Date Value 11/15/2014 5.0 Sodium (mmol/L) Date Value 11/15/2014 137 Chloride (mmol/L) Date Value 11/15/2014 103 CO2 (mmol/L) Date Value 11/15/2014 21 Creatinine (mg/dL) Date Value 11/15/2014 1.13 BUN (mg/dL) Date Value 11/15/2014 15 Anion Gap (mmol/L) Date Value 11/15/2014 13 Calcium (mg/dL) Date Value 11/15/2014 8.6 Protein, Total (g/dL) Date Value 11/15/2014 5.6 Albumin (g/dL) Date Value 11/15/2014 3.4 Bilirubin, Total (mg/dL) Date Value 11/15/2014 <0.2 Alkaline Phosphatase (U/L) Date Value 11/15/2014 43 AST (U/L) Date Value 11/15/2014 24 ALT (U/L) Date Value 11/15/2014 18 WBC Date Value Ref Range Status 07/27/2022 8.95 3.70 - 11.00 k/uL Final RBC Date Value Ref Range Status 07/27/2022 4.60 3.90 - 5.20 m/uL Final Hemoglobin Date Value Ref Range Status 07/27/2022 13.0 11.5 - 15.5 g/dL Final Hematocrit Date Value Ref Range Status 07/27/2022 39.6 36.0 - 46.0 % Final MCV Date Value Ref Range Status 07/27/2022 86.1 80.0 - 100.0 fL Final MCH Date Value Ref Range Status 07/27/2022 28.3 26.0 - 34.0 pg Final MCHC Date Value Ref Range Status 07/27/2022 32.8 30.5 - 36.0 g/dL Final RDW-CV Date Value Ref Range Status 07/27/2022 18.0 (H) 11.5 - 15.0 % Final Platelet Count Date Value Ref Range Status 07/27/2022 379 150 - 400 k/uL Final MPV Date Value Ref Range Status 07/27/2022 9.5 9.0 - 12.7 fL Final Abs Neut Date Value Ref Range Status 07/27/2022 3.81 1.45 - 7.50 k/uL Final Lymph% Date Value Ref Range Status 07/27/2022 36.3 % Final Abs Lymph Date Value Ref Range Status 07/27/2022 3.25 1.00 - 4.00 k/uL Final Stewart% Date Value Ref Range Status 07/27/2022 14.0 % Final Abs Stewart Date Value Ref Range Status 07/27/2022 1.25 (H) <0.87 k/uL Final Eosin% Date Value Ref Range Status 07/27/2022 5.8 % Final Abs Eosin Date Value Ref Range Status 07/27/2022 0.52 (H) <0.46 k/uL Final Baso% Date Value Ref Range Status 07/27/2022 0.9 % Final Abs Baso Date Value Ref Range Status 07/27/2022 0.08 <0.11 k/uL Final PATH: Imaging: Assessment and Plan: Tangela Trinidad is a 82 year old year old female here for follow up. SHELLY- Source possibly related to gastric ulcers seen on EGD 07/2022 and colonoscopy negative at that time/ Nice response with improvement of anemia. Repeat EGD per GI and repeat iron parameters in 6 months Thank you for the kind referral. If there are any questions and or concerns please do not hesitate to contact me at [phone]. Mavis Santiago MD Hematology/Medical Oncology [facility] Saavedra spent a total of 20 minutes on the date of the service which included preparing to see the patient, [id number] patient care, completing clinical documentation, obtaining and/or reviewing separately obtained history, performing a medically appropriate examination, counseling and educating the pat ient/family/caregiver, and ordering medications, tests, or procedures. CC: Kvng Melgar DO documented [facility] encounterB[facility]01-[facility] Evaluation note* Encounter Date Diagnosis Assessment Notes Treatment Notes Treatment Clinical Notes Jul, Acute gastric ulcer without hemorrhage or perforation (ICD-10 - K25.3) Sequence Design Other [id number] [facility]* Encounter Date Diagnosis Assessment Notes Treatment Notes Treatment Clinical Notes Jul, Essential hypertensi on (ICD-10 - I10) This patient is instructed to consume a healthy, low-fat, low-salt diet. They are also encouraged to continue exercise to achieve/maintain a normal BMI. Jul, Stage 3a chronic kidney disease (ICD-10 - N18.31) The patient is instructed on adequate control of hypertension and diabetes, if appropriate. They are also educated on the associated risks of NSAIDs and PPI use with kidney disease. They were instructed on adequate fluid balance and to avoid dehydration. Monitor H/H due to CKD related anemia. Monitor use of NSAIDs as could lead to increased BP, fluid retention and worsening GFR Jul, Hyperlipidemia type II (ICD-10 - E78.01) Diet and exercise, intolerant to statin therapy. Jul, Gastroesophageal reflux disease 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 hemorrhage (ICD-10 - K21.00) Diet instructions: Smaller portions, avoid eating and laying flat, avoid eating or drinking prior to bedtime. Weight loss. Jul, Chronic venous insufficiency (ICD-10 - I87.2) Avoid salt and elevate lower extremities, support stockings, inspect legs and feet daily for blisters and ulcerations. Jul, Age-related osteoporosis without current pathological fracture (ICD-10 - M81.0) Healthy diet, Ca and Vitamin D supplements, weight bearing exercises. Continue Reclast for 3 years Jul, Lumbar spondylosis (ICD-10 - M47.816) The patient is instructed to avoid bending, twisting or lifting. They are to use intermittent heat and ice as needed. They may schedule a massage or gentle manipulation. They may safely use Tylenol as needed. Jul, Iron deficiency anemia, unspecified iron deficiency (ICD-10 - D50.9) Jul, Generally unsteady (ICD-10 - R26.81) Healty diet, keep active, consistent sleep routine Sequence [employer] Other [id number] NoteHNO ID: [id number] Author: MONY Mart Service: ? Author Type: Industrial Court Magistrate Type: Progress Notes Filed: 06/02/2022 3:17 PM Note Text: Patient appears on the First Time Treatment List for a non-oncology treatment. No psychosocial assessment is indicated. KAYLEY Mart-[facility]11-23-2022 History of Present illness Narrative* MONY Mart - 06/02/2022 3:16 PM EST Patient appears on the First Time Treatment List for a non-oncology treatment. No psychosocial assessment is indicated. KAYLEY Mart-[place] documented in this encounterBellevue Hospital11-15-2022 Miscellaneous Notes* Telephone Encounter - Mohit Lo [facility] - 05/25/2022 3:32 PM EST 1st report of treatment-non oncology regimen (Monoferric) Patient holds Medicare coverage. No FA available at this time. documented in this encounterBellevue Hospital11-08-2022 NoteHNO ID: [id number] Author: Mavis Santiago MD Service: ? Author Type: Physician Type: Progress Notes Filed: 05/18/2022 4:08 PM Note Text: PATIENT NAME: Tangela Trinidad CLINIC NO.: [id number] ATTENDING PHYSICIAN: Mavis Santiago MD DATE OF SERVICE: May 18, [address] Kvng Melgar here is an update on a follow up visit on female Tangela Trinidad at the clinic 05/18/2022 Diagnosis: SHELLY Treatment History: IV Iron 10/2018 HPI: Tangela Trinidad is a 82 year old year old female here for follow up. Previously saw Dr. Salcedo with recurrent SHELLY and source unknown. Last colonoscopy 2012 which was normal. Denies any changes in her bowel habits and also denies any epigastric pain and or change in bowel habits. Denies any increased NSAID use. She had COVID in January and 03/2022 and since then has noted increasing fatigue. Recent labs with worsening anemia and also decreased Iron stores, She does not tolerate Oral Iron. PAST MEDICAL HISTORY Diagnosis Date Anemia CVI (common variable immunodeficiency) (HCC) GERD (gastroesophageal reflux disease) HTN (hypertension) Hyperlipidemia Hypothyroidism IBS (irritable bowel syndrome) Social History Tobacco Use Smoking status: Former Smokeless tobacco: Never Substance Use Topics Alcohol use: Not Currently Drug use: Never No family history on file. Past medical, social and family history reviewed without any changes. REVIEW OF SYSTEMS GENERAL: No weight loss, malaise or fevers. No night sweats. HEENT: Negative for headaches, No changes in hearing or vision, no nose bleeds or other nasal problems. RESPIRATORY: Negative for cough, wheezing and shortness of breath CARDIOVASCULAR: Negative for chest pain, leg swelling and palpitations GI: Negative for abdominal discomfort, blood in stools or black stools and change in bowel habits : Negative for dysuria, frequency and incontinence MUSCULOSKELETAL: Negative for joint pain or swelling, back pain, and muscle pain. SKIN: Negative for lesions, rash, and itching. HEMATOLOGY/LYMPHOLOGY Negative for prolonged bleeding, bruising easily, and swollen nodes. NEURO: Negative for numbness or tingling of hands/feet. No weakness. PHYSICAL EXAMINATION: BP 122/78 Pulse 78 Temp (Src) 98.1 (Temporal) Resp 16 Wt 150 lb (68.0kg) SpO2 98% Wt 68 kg (150 lb) BMI 29.29 kg/m2 Last 3 Encounter Wt Readings: Date: Wt: 05/18/2022 68 kg (150 lb) 01/10/2019 66 kg (145 lb 6.4 oz) 10/11/2018 65.1 kg (143 lb 9.6 oz) General appearance:ECOG PERFORMANCE STATUS: 1- Restricted in physically strenuous activity. Carries out light duty. Patient in NAD. Skin: Skin color, texture, turgor normal. No rashes or lesions. Eyes: Anicteric sclera. Pupils are equally round and reactive to light. Extraocular movements are intact. Lymph Nodes: No cervical, supraclavicular, axillary or inguinal adenopathy. Oropharynx: Lips, mucosa, and tongue normal. Back: No pain to percussion. Negative SLR test Lungs clear to auscultation, No wheezing or rhonchi Heart: RRR without murmur, gallop, or rubs. Abdomen soft, non-tender. No masses, organomegaly Extremities: No deformities. No edema Neuro: Gait and speech normal. Reflexes normal and symmetric. Muscular strength intact. Sensation grossly intact. Rectal: Deferred : Deferred LABS: Glucose (mg/dL) Date Value 11/15/2014 87 Potassium (mmol/L) Date Value 11/15/2014 5.0 Sodium (mmol/L) Date Value 11/15/2014 137 Chloride (mmol/L) Date Value 11/15/2014 103 CO2 (mmol/L) Date Value 11/15/2014 21 Creatinine (mg/dL) Date Value 11/15/2014 1.13 BUN (mg/dL) Date Value 11/15/2014 15 Anion Gap (mmol/L) Date Value 11/15/2014 13 Calcium (mg/dL) Date Value 11/15/2014 8.6 Protein, Total (g/dL) Date Value 11/15/2014 5.6 Albumin (g/dL) Date Value 11/15/2014 3.4 Bilirubin, Total (mg/dL) Date Value 11/15/2014 <0.2 Alkaline Phosphatase (U/L) Date Value 11/15/2014 43 AST (U/L) Date Value 11/15/2014 24 ALT (U/L) Date Value 11/15/2014 18 WBC Date Value Ref Range Status 05/14/2019 7.83 3.70 - 11.00 k/uL Final RBC Date Value Ref Range Status 05/14/2019 4.42 3.90 - 5.20 m/uL Final Hemoglobin Date Value Ref Range Status 05/14/2019 13.0 11.5 - 15.5 g/dL Final Hematocrit Date Value Ref Range Status 05/14/2019 39.9 36.0 - 46.0 % Final MCV Date Value Ref Range Status 05/14/2019 90.3 80.0 - 100.0 fL Final MCH Date Value Ref Range Status 05/14/2019 29.4 26.0 - 34.0 pG Final MCHC Date Value Ref Range Status 05/14/2019 32.6 30.5 - 36.0 g/dL Final RDW-CV Date Value Ref Range Status 05/14/2019 13.1 11.5 - 15.0 % Final Platelet Count Date Value Ref Range Status 05/14/2019 299 150 - 400 k/uL Final MPV Date Value Ref Range Status 05/14/2019 9.5 9.0 - 12.7 fL Final Abs Neut (ANC) Date Value Ref Range Status 05/11/2018 4.59 1.45 - 7.50 k/uL Final Lymph% Date Va (more content not included)...[facility]11-08-2022 History of Present illness Narrative* Mavis Santiago MD - 05/18/2022 3:51 PM EST PATIENT NAME: Tangela Trinidad [facility] NO.: [id number] ATTENDING PHYSICIAN: Mavis Santiago MD DATE OF SERVICE: May 18, [address] Kvng Melgar here is an update on a follow up visit on female Tangela L Vivi at the clinic 05/18/2022 Diagnosis: SHELLY Treatment History: IV Iron 10/2018 HPI: Tangela Trinidad is a 82 year old year old female here for follow up. Previously saw Dr. Salcedo with recurrent SHELLY and source unknown. Last colonoscopy 2012 which was normal. Denies any changes in her bowel habits and also denies any epigastric pain and or change in bowel habits. Denies any increased NSAID use. She had COVID in January and 03/2022 and since then has noted increasing fatigue. Recent labs with worsening anemia and also decreased Iron stores, She does not tolerate Oral Iron. PAST MEDICAL HISTORY Diagnosis Date Anemia CVI (common variable immunodeficiency) (HCC) GERD (gastroesophageal reflux disease) HTN (hypertension) Hyperlipidemia Hypothyroidism IBS (irritable bowel syndrome) Social History Tobacco Use Smoking status: Former Smokeless tobacco: Never Substance Use Topics Alcohol use: Not Currently Drug use: Never No family history on file. Past medical, social and family history reviewed without any changes. REVIEW OF SYSTEMS GENERAL: No weight loss, malaise or fevers. No night sweats. HEENT: Negative for headaches, No changes in hearing or vision, no nose bleeds or other nasal problems. RESPIRATORY: Negative for cough, wheezing and shortness of breath CARDIOVASCULAR: Negative for chest pain, leg swelling and palpitations GI: Negative for abdominal discomfort, blood in stools or black stools and change in bowel habits : Negative for dysuria, frequency and incontinence MUSCULOSKELETAL: Negative for joint pain or swelling, back pain, and muscle pain. SKIN: Negative for lesions, rash, and itching. HEMATOLOGY/LYMPHOLOGY Negative for prolonged bleeding, bruising easily, and swollen nodes. NEURO: Negative for numbness or tingling of hands/feet. No weakness. PHYSICAL EXAMINATION: BP 122/78 Pulse 78 Temp (Src) 98.1 (Temporal) Resp 16 Wt 150 lb (68.0kg) SpO2 98% Wt 68 kg (150 lb) BMI 29.29 kg/m2 Last 3 Encounter Wt Readings: Date: Wt: 05/18/2022 68 kg (150 lb) 01/10/2019 66 kg (145 lb 6.4 oz) 10/11/2018 65.1 kg (143 lb 9.6 oz) General appearance:ECOG PERFORMANCE STATUS: 1- Restricted in physically strenuous activity. Carries out light duty. Patient in NAD. Skin: Skin color, texture, turgor normal. No rashes or lesions. Eyes: Anicteric sclera. Pupils are equally round and reactive to light. Extraocular movements are intact. Lymph Nodes: No cervical, supraclavicular, axillary or inguinal adenopathy. Oropharynx: Lips, mucosa, and tongue normal. Back: No pain to percussion. Negative SLR test Lungs clear to auscultation, No wheezing or rhonchi Heart: RRR without murmur, gallop, or rubs. Abdomen soft, non-tender. No masses, organomegaly Extremities: No deformities. No edema Neuro: Gait and speech normal. Reflexes normal and symmetric. Muscular strength intact. Sensation grossly intact. Rectal: Deferred : Deferred LABS: Glucose (mg/dL) Date Value 11/15/2014 87 Potassium (mmol/L) Date Value 11/15/2014 5.0 Sodium (mmol/L) Date Value 11/15/2014 137 Chloride (mmol/L) Date Value 11/15/2014 103 CO2 (mmol/L) Date Value 11/15/2014 21 Creatinine (mg/dL) Date Value 11/15/2014 1.13 BUN (mg/dL) Date Value 11/15/2014 15 Anion Gap (mmol/L) Date Value 11/15/2014 13 Calcium (mg/dL) Date Value 11/15/2014 8.6 Protein, Total (g/dL) Date Value 11/15/2014 5.6 Albumin (g/dL) Date Value 11/15/2014 3.4 Bilirubin, Total (mg/dL) Date Value 11/15/2014 <0.2 Alkaline Phosphatase (U/L) Date Value 11/15/2014 43 AST (U/L) Date Value 11/15/2014 24 ALT (U/L) Date Value 11/15/2014 18 WBC Date Value Ref Range Status 05/14/2019 7.83 3.70 - 11.00 k/uL Final RBC Date Value Ref Range Status 05/14/2019 4.42 3.90 - 5.20 m/uL Final Hemoglobin Date Value Ref Range Status 05/14/2019 13.0 11.5 - 15.5 g/dL Final Hematocrit Date Value Ref Range Status 05/14/2019 39.9 36.0 - 46.0 % Final MCV Date Value Ref Range Status 05/14/2019 90.3 80.0 - 100.0 fL Final MCH Date Value Ref Range Status 05/14/2019 29.4 26.0 - 34.0 pG Final MCHC Date Value Ref Range Status 05/14/2019 32.6 30.5 - 36.0 g/dL Final RDW-CV Date Value Ref Range Status 05/14/2019 13.1 11.5 - 15.0 % Final Platelet Count Date Value Ref Range Status 05/14/2019 299 150 - 400 k/uL Final MPV Date Value Ref Range Status 05/14/2019 9.5 9.0 - 12.7 fL Final Abs Neut (ANC) Date Value Ref Range Status 05/11/2018 4.59 1.45 - 7.50 k/uL Final Lymph% Date Value Ref Range Status 05/11/2018 29.7 % Final Abs Lymph Date Value Ref Range Status 05/11/2018 2.74 1.00 - 4.00 k/uL Final Stewart% Date Value Ref Range Status 05/11/2018 12.1 % Final Abs Stewart Date Value Ref Range Status 05/11/2018 1.12 (H) 0.00 - 0.86 k/uL Final Abs Eosin Date Value Ref Range Status 05/11/2018 0.70 (H) 0.00 - 0.45 k/uL Final Baso% Date Value Ref Range Status 05/11/2018 1.0 % Final Abs Baso Date Value Ref Range Status 05/11/2018 0.09 0.00 - 0.10 k/uL Final PATH: Imaging: Assessment and Plan: Tangela Trinidad is a 82 year old year old female here for follow up. SHELLY- Source Unclear and not tolerating PO Iron--- Will schedule for Monoferric next week and repeatparameters in 2 months Agree with repeat upper and lower endoscopies, referral has been made by Dr. Melgar. Thank you for the kind referral. If there are any questions and or concerns please do not hesitate to contact me at [phone]. Mavis Santiago MD Hematology/Medical Oncology [facility] spent a total of 30 minutes on the date of the service which included preparing to see the patient, [id number] patient care, completing clinical documentation, obtaining and/or reviewing separately obtained history, performing a medically appropriate examination, counseling and educating the pat ient/family/caregiver, and ordering medications, tests, or procedures. Medical Decision Making: Medical Decision Making Level: 1 - N/A CC: Kvng Melgar DO [facility] Progress note Author Karthikeyan Salcedo [facility] May 29, 2020 11:30am Note Date/Time May 29, 2020 11:29am [facility] [place] [address] Hem/Onc Follow Up Note - OP Signed Patient: Tangela Trinidad MR#: [id number] : 1940 Acct:[id number] Age/Sex: 80 / F Type: REG RCR Copies to: Kvng Melgar DO SELF,REFERRAL ~ Subjective Date/Time of Service: Date of Service: 05/29/2020 Time of Service: 11:28 Chief Complaint: Patient is here for 6 month follow up appt with lab work. HPI: Tangela presents in follow-up. Her hemoglobin is normal. Ferritin is normal. She does have some mild new renal sufficiency. I will notify her doctor Dr. Melgar. We will see her in 6 months. This is an 79-year-old lady well-known to me with a history of iron deficiency. She requires intravenous iron periodically. Her last IV iron was 2 years ago. Her hemoglobin is over 14 today. She feels fine. She has no complaints today. PMFSH - Social History Smoking Status: Never smoker Substance Use Type: None Home Medications & Allergies Allergies Cephalosporins Allergy (Verified 11/28/19 10:23) Unknown Reaction nitrofurantoin [From Macrodantin] Allergy (Verified 11/28/19 10:23) Rash Penicillins Allergy (Verified 11/28/19 10:23) Hives Wgveqqh-Fgf-Eak Reductase Inhibitor Allergy (Verified 11/28/19 10:23) Unknown Reaction Sulfa (Sulfonamide Antibiotics) Allergy (Verified 11/28/19 10:23) Hives vancomycin Allergy (Verified 11/28/19 10:23) Rash Home Medications amlodipine [Norvasc] 5 mg PO DAILY 11/28/19 [History Confirmed 05/29/20] atenolol [Tenormin] 25 mg PO DAILY 11/28/19 [History Confirmed 05/29/20] celecoxib [Celebrex] 100 mg PO DAILY 11/28/19 [History Confirmed 05/29/20] levothyroxine [Synthroid] 112 mcg PO DAILY 11/28/19 [History Confirmed 05/29/20] Objective - Height/Weight Height/Weight: Height 5 ft 1.61 in Weight 66.3 kg - Vital Signs Vital Signs: 05/29/20 11:10 Temperature 97.4 F L Pulse Rate [Left Brachial] 68 Respiratory Rate 16 Blood Pressure [Right Arm] 128/77 02 Sat by Pulse Oximetry 98 - Emotional Needs Assessment Emotional Needs Assessment: Emotional Needs Identified? Yes Distress Screening Total 0 Physical Exam Narrative: HEENT exam is negative. Lungs are audibly with good air exchange. Psychiatric exam shows a normal affect. Neurological exam is grossly intact. Results - Labs Labs: Diagram of Most Recent CBC and CMP 05/27/20 10:39 05/27/20 10:39 Labs - Last 7 Days 05/27/20 10:39: PHA Creatinine Clear 32.94, Sodium 136, Potassium 4.8, Chloride 100, Carbon Dioxide 27.9, BUN 17, Creatinine 1.14 H, Est GFR ( Amer) 55, Est GFR (Non-Af Amer) 46, Glucose 78, Calcium 9.6, Iron 71, TIBC 318, Iron Saturation 22.0, Transferrin 227, Ferritin 47.2, Total Bilirubin 0.5, AST 28, ALT 21, Alkaline Phosphatase 62, Total Protein 6.5, Albumin 3.8, Globulin 2.7, Albumin/Globulin Ratio 1.4 05/27/20 10:39: WBC 8.7, Corrected WBC 8.7, RBC 5.03 H, Hgb 14.6, Hct 43.9, MCV 87.3, MCH 29.1, MCHC 33.3, RDW 13.6, Plt Count 269, MPV 8.7, Neut % (Auto) 50.8,Lymph % (Auto) 30.1, Stewart % (Auto) 14.9, Eos % (Auto) 3.3, Baso % (Auto) 0.9, Neut # (Auto) 4.4, Lymph # (Auto) 2.6, Stewart # (Auto) 1.3 H, Eos # (Auto) 0.3, Baso # (Auto) 0.1, Nucleated RBC % (auto) 0.2 Assessment and Plan (1) Iron deficiency anemia Continue plan to follow-up. We will see her in 6 months for repeat CBC and ironstores. She does have some mild new renal sufficiency with a creatinine of 1.14. I willnotify Dr. Melgar. - Time with Patient Coordination of Care & Counseling Time: Greater than 50% of time spent with patient was for coordination of care (as documented) and [id number] counseling of patient and/or family. Dictated By: Karthikeyan Salcedo MD DD/ [id number] Signed By: <Electronically signed by MD Karthikeyan Salcedo> 05/29/20 1130 [facility] Work Phone: 1(176) 483-963005-20-2020 Progress note Author Karthikeyan Salcedo [facility] November 28, 2019 12:52pm Note Date/Time November 28, 2019 12:50 pm [facility] [place] [address] Hem/Onc Follow Up Note - OP Signed Patient: Tangela Trinidad MR#: [id number] : 1940 Acct:[id number] Age/Sex: 79 / F Type: REG RCR Copies to: Kvng Melgar,DO SELF,REFERRAL ~ Subjective Date/Time of Service: Date of Service: 11/28/2019 Time of Service: 12:49 Chief Complaint: 1 year follow up appt no new concerns HPI: This is an 79-year-old lady well-known to me with a history of iron deficiency. She requires intravenous iron periodically. Her last IV iron was 2 years ago. Her hemoglobin is over 14 today. She feels fine. She has no complaints today. [facility] - Social History Smoking Status: Never smoker Home Medications & Allergies Allergies Cephalosporins Allergy (Verified 11/28/19 10:23) Unknown Reaction nitrofurantoin [From Macrodantin] Allergy (Verified 11/28/19 10:23) Rash Penicillins Allergy (Verified 11/28/19 10:23) Hives Owbwmhh-Crz-Cjv Reductase Inhibitor Allergy (Verified 11/28/19 10:23) Unknown Reaction Sulfa (Sulfonamide Antibiotics) Allergy (Verified 11/28/19 10:23) Hives vancomycin Allergy (Verified 11/28/19 10:23) Rash Home Medications amlodipine [Norvasc] 5 mg PO DAILY 11/28/19 [History Confirmed 11/28/19] atenolol [Tenormin] 25 mg PO DAILY 11/28/19 [History Confirmed 11/28/19] celecoxib [Celebrex] 100 mg PO DAILY 11/28/19 [History Confirmed 11/28/19] levothyroxine [Synthroid] 112 mcg PO DAILY 11/28/19 [History Confirmed 11/28/19] metoprolol succinate 25 mg PO DAILY 11/28/19 [History Confirmed 11/28/19] Objective - Height/Weight Height/Weight: Height 5 ft 1.61 in Weight 65.4 kg - Vital Signs Vital Signs: 11/28/19 11:13 Temperature 97.3 F L Pulse Rate [Left Brachial] 60 Respiratory Rate 20 Blood Pressure [Left Arm] 133/73 02 Sat by Pulse Oximetry 97 - Emotional Needs Assessment Emotional Needs Assessment: Emotional Needs Identified? No Physical Exam Narrative: HEENT exam is negative. Lungs are audibly with good air exchange. Psychiatric exam shows a normal affect. Neurological exam is grossly intact. Results - Labs Labs: Diagram of Most Recent CBC and CMP 11/28/19 10:13 11/28/19 10:13 Labs - Last 7 Days 11/28/19 10:13: PHA Creatinine Clear N/A, Sodium 133 L, Potassium 4.2, Chloride 98, Carbon Dioxide 26.7, BUN 15, Creatinine 0.94, Est GFR ( Amer) > 60, Est GFR (Non-Af Amer) 57, Glucose 79, Calcium 9.4, Iron 63, TIBC 283, Iron Saturation 22.0, Transferrin 202, Ferritin 57.6, Total Bilirubin 0.6, AST 26, ALT 18, Alkaline Phosphatase 65, Total Protein 6.6, Albumin 3.5, Globulin 3.1, Albumin/Globulin Ratio 1.1 11/28/19 10:13: WBC 8.7, Corrected WBC 8.7, RBC 4.92, Hgb 14.4, Hct 43.0, MCV 87.3, MCH 29.2, MCHC 33.5, RDW 12.7, Plt Count 294, MPV 8.6, Neut % (Auto) 49.9,Lymph % (Auto) 27.3, Stewart % (Auto) 15.1, Eos % (Auto) 6.5, Baso % (Auto) 1.2, Neut # (Auto) 4.3, Lymph # (Auto) 2.4, Stewart # (Auto) 1.3 H, Eos # (Auto) 0.6 H, Baso # (Auto) 0.1, Nucleated RBC % (auto) 0.1 Assessment and Plan (1) Iron deficiency anemia The patient has a long history of iron deficiency anemia and does require periodic intravenous iron. She has not had for 2 years now. Her labs are stable. Iron stores are normal and her CBC is normal. At this time I plan on seeing her back in 6 months. - Time with Patient Coordination of Care & Counseling Time: Greater than 50% of time spent with patient was for coordination of care (as documented) and [id number] counseling of patient and/or family. Dictated By: Karthikeyan Salcedo MD DD/ [id number] Signed By: <Electronically signed by MD Karthikeyan Salcedo> 11/28/19 1252 [facility] Work Phone: Evaluation note* Diagnosis Iron deficiency- Primary Iron deficiency anemia, unspecified [facility] [place] [facility] Diagnosis Iron deficiency anemia, unspecified iron deficiency anemia type- Primary Iron deficiency Iron deficiency anemia, unspecified [facility] [place] [facility]* Diagnosis Iron deficiency- Primary Iron deficiency anemia, unspecified [facility] [place] noteNo assessment information availableCommunity [facility] Work Phone: Evaluation noteNo InformationNort [facility] Other History and physical note Author Jeyson Diaz [facility] July 26, 2022 8:09am Note Date/Time July 26, 2022 8 :09am [facility] [address] [place] [address] Gastroenterology H&P Signed Patient: Tangela Trinidad MR#: [id number] : 1940 Acct:[id number] Age/Sex: 82 / F Adm Date: 3 Loc: Room: Type: [facility] Attending Dr: Jeyson Diaz MD Copies to: Kvng Melgar,DO Jeyson Diaz MD~ Date of Service: 07/26/2022 HISTORY & PHYSICAL: Patient's history with special attention to the cardiovascular, pulmonary systems and the current problem was reviewed with the patient immediately prior to the procedure. Present medications and doses reviewed in the EMR. Allergies and pertinent laboratory tests were also reviewedat this time in the EMR. The physical examination, as below, was then performed. Indication, assessment and HPI: Iron deficiency anemia Family history of GI malignancy? No PHYSICAL EXAMINATION Mouth and Pharynx : Moist mucus membranes, normal dentition Cardiac: Regular rate, regular rhythm Pulmonary: Clear to auscultation bilaterally, no wheezing Neurological: Alert and oriented x3, no focal deficits noted Abdomen: Abdomen soft, non-tender REVIEW OF SYSTEMS Constitutional: Denies malaise, fevers Cardiovascular: Denies chest pain, palpitations Respiratory: Denies shortness of breath, wheezing Gastrointestinal: Per HPI Genitourinary: Denies dysuria, polyuria Musculoskeletal: Denies joint swelling, joint stiffness Neurological: Denies numbness, tingling Integumentary: Denies rashes, skin lesions Endocrine: Denies fatigue, weight loss Written informed consent obtained from the patient. Risks (including but not limited to perforation, infection, bloating, bleeding, need for emergent surgeryand loss of life), benefits and alternatives explained and questions answered. The patient verbalized understanding. Based on history patient is an appropriate candidate for the procedure. Jeyson Diaz M.D. Documented By: Jeyson Diaz MD 07/26/22808 Signed By: <Electronically signed by Jeyson Diaz MD> 07/26/22808 [facility] Work Phone: History and physical note Author Jeyson Diaz [facility] October 28, 2022 1:13pm Note Date/Time October 28, 2022 1:1 3pm [facility] [address] [place] [address] Gastroenterology H&P Signed Patient: Tangela Trinidad MR#: [id number] : 1940 Acct:[id number] Age/Sex: 82 / F Adm Date: 3 Loc: Room: Type: [facility] Attending Dr: Jeyson Diaz MD Copies to: Kvng Ermelinda,DO Jeyson Diaz MD~ Date of Service: 10/28/2022 HISTORY & PHYSICAL: Patient's history with special attention to the cardiovascular, pulmonary systems and the current problem was reviewed with the patient immediately prior to the procedure. Present medications and doses reviewed in the EMR. Allergies and pertinent laboratory tests were also reviewedat this time in the EMR. The physical examination, as below, was then performed. Indication, assessment and HPI: 82-year-old female with history of gastric ulcers here for EGD for evaluation of gastric ulcer healing Family history of GI malignancy? No PHYSICAL EXAMINATION Mouth and Pharynx : Moist mucus membranes, normal dentition Cardiac: Regular rate, regular rhythm Pulmonary: Clear to auscultation bilaterally, no wheezing Neurological: Alert and oriented x3, no focal deficits noted Abdomen: Abdomen soft, non-tender REVIEW OF SYSTEMS Constitutional: Denies malaise, fevers Cardiovascular: Denies chest pain, palpitations Respiratory: Denies shortness of breath, wheezing Gastrointestinal: Per HPI Genitourinary: Denies dysuria, polyuria Musculoskeletal: Denies joint swelling, joint stiffness Neurological: Denies numbness, tingling Integumentary: Denies rashes, skin lesions Endocrine: Denies fatigue, weight loss Written informed consent obtained from the patient. Risks (including but not limited to perforation, infection, bloating, bleeding, need for emergent surgery and loss of life), benefits and alternatives explained and questions answered. The patient verbalized understanding. Based on history patient is an appropriate candidate for the procedure. Jeyson Diaz M.D. 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 Medical History Essential hypertension Medical History Lumbar spondylosis Medical History Cervical spondylosis with radicu lopathy Medical History Situational anxiety Medical History BPPV (benign paroxys mal positional vertigo), bilateral Medical History Left-sided low back pain without sciatica, unspecified chronicity Medical History Chronic pain Medical History Hypocalcemia Medical History Iron deficiency anemia, unspecif ied iron deficiency Medical History Ascending aorta dilatation Medical History Celiac disease Medical History Subacute bacterial endocarditis Medical History 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 Medical History Primary osteoarthritis of right knee Medical History 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 without current pathological fracture Medical History Status post total right knee rep lacement Medical History Gastroesophageal ref lux disease 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 hemorrhage Medical History Acquired autoimmune hypothyroidi sm Medical History Chronic venous insufficiency Medical History Generally unsteady Medical 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 Hyperlipidemia type II Surgical History appendectomy Surgical History hysterectomy Surgical History Neck Surgery Surgical History back surgery Surgical History bladder suspension, unspecified Surgical History cataract extraction bilateral Surgical History right total knee arthroplasty Surgical History EGD 07/26/22 Surgical History colonoscopy 07/26/22 Hospitalization History see above Sequence Design Other History general Narrative - Reported* Type Description Date Medical History Cervical spondylosis Medical History Vitamin D deficiency Medical History Hyponatremia Medical History Malaise Medical History Fatigue Medical History Depression screening Medical History Encounter for screening breast e xamination Medical History Leukocytosis Medical History 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 Medical History Essential hypertension Medical History Lumbar spondylosis Medical History Cervical spondylosis with radicu lopathy Medical History Situational anxiety Medical History BPPV (benign paroxys mal positional vertigo), bilateral Medical History Left-sided low back pain without sciatica, unspecified chronicity Medical History Chronic pain Medical History Hypocalcemia Medical History Iron deficiency anemia, unspecif ied iron deficiency Medical History Ascending aorta dilatation Medical History Celiac disease Medical History Subacute bacterial endocarditis Medical History 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 Medical History Primary osteoarthritis of right knee Medical History 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 without current pathological fracture Medical History Status post total right knee rep lacement Medical History Gastroesophageal ref lux disease 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 hemorrhage Medical History Acquired autoimmune hypothyroidi sm Medical History Chronic venous insufficiency Medical History Generally unsteady Medical 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 Hyperlipidemia type II Surgical History appendectomy Surgical History hysterectomy Surgical History Neck Surgery Surgical History back surgery Surgical History bladder suspension, unspecified Surgical History cataract extraction bilateral Surgical History right total knee arthroplasty Surgical History EGD w/ biopsy 07/26/22 Surgical History colonoscopy 07/26/22 Surgical History EGD w/ biopsy 10/2022 Hospitalization History see above Sequence Design Other History general Narrative - Reported* Type Description Date Medical History Cervical spondylosis Medical History Vitamin D deficiency Medical History Hyponatremia Medical History Malaise Medical History Fatigue Medical History Depression screening Medical History Encounter for screening breast e xamination Medical History Leukocytosis 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 Medical History Essential hypertension Medical History Lumbar spondylosis Medical History Cervical spondylosis with radicu lopathy Medical History Situational anxiety Medical History BPPV (benign paroxys mal positional vertigo), bilateral Medical History Left-sided low back pain without sciatica, unspecified chronicity Medical History Chronic pain Medical History Hypocalcemia Medical History Iron deficiency anemia, unspecif ied iron deficiency Medical History Ascending aorta dilatation Medical History Celiac disease Medical History Subacute bacterial endocarditis Medical History 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 Medical History Primary osteoarthritis of right knee Medical History 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 without current pathological fracture Medical History Status post total right knee rep lacement Medical History Gastroesophageal ref lux disease 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 hemorrhage Medical History Acquired autoimmune hypothyroidi sm Medical History Chronic venous insufficiency Medical History Generally unsteady Medical 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 Hyperlipidemia type II Surgical History appendectomy Surgical History hysterectomy Surgical History Neck Surgery Surgical History back surgery Surgical History bladder suspension, unspecified Surgical History cataract extraction bilateral Surgical History right total knee arthroplasty Surgical History EGD w/ biopsy 07/26/22 Surgical History colonoscopy 07/26/22 Surgical History EGD w/ biopsy 10/2022 Surgical History EGD 01/2023 Hospitalization History see above Sequence Design Other Hospital Discharge instructions Additional Instructions DISCHARGE INSTRUCTIONS FOR UPPER ENDOSCOPY WHAT TO EXPECT: - You may feel full, gassy or cramping after your procedure. In some cases, this may be from a few hours to a day. Walking may help relieve the discomfort. - Your throat may feel sore today from the scope that the doctor passed through your throat to visualize your stomach. Take a throat lozenge or suck on ice to ease the discomfort. - You may notice some streaks of blood in your sputum if the doctor has taken a biopsy. - You should begin to recover from anesthesia within 1 hour of the procedure, however may feel groggy for the next 24 hours. DO's AND DON'Ts: - Call your doctor right away if you have a hard abdomen, severe pain, vomiting or if you cough up large amounts of blood. - Call your doctor if you develop any rashes, hives or difficulty breathing. - If you take 81 mg aspirin for your heart it is safe to resume this medication. - If you take other blood thinner medications your doctor will instruct you when these can safely be resumed. - Do NOT drive for 24 hours. - Do NOT operate machinery such as power tools, lawn mowers, snow blowers, sewing machines, etc. for 24 hours. - Avoid alcoholic beverages and drugs for allergies, nerves, or sleep. - Do NOT stay alone. Do NOT leave your child unattended. - Do NOT make important personal or business decisions or sign any legal documents. - Eat solid foods and drink liquids in smaller amounts than usual until normal appetite returns. If you should experience an upset stomach, liquids high in sugar content (soda, Tarun-Aid, non-acid juices) are recommended. - Do NOT smoke. - Do take it easy today. You need not stay in bed, but avoid strenuous activities such as jogging or working out. DISCHARGE INSTRUCTIONS FOR COLONOSCOPY WHAT TO EXPECT: - You may feel full, gassy or cramping after your procedure. In some cases, this may be from a few hours to a day. Walking may help relieve the discomfort. - If you have polyp(s) removed you may note some minor bloody discharge after your first bowel movements. - You should begin to recover from anesthesia within 1 hour of the procedure, however may feel groggy for the next 24 hours. DO's AND DON'Ts: - Call your doctor right away if you have a hard abdomen, sever pain, are passing lots of bright red blood or clots. - Call your doctor if you develop any rashes, hives or difficulty breathing. - Let your doctor know if you have not had a bowel movement by 3 days after your procedure. - If you take 81 mg aspirin for your heart it is safe to resume this medication. - If you take other blood thinner medications your doctor will instruct you when these can safely be resumed. - Do NOT drive for 24 hours. - Do NOT operate machinery such as power tools, Urtak[employer] mowers, snow blowers, sewing machines, etc. for 24 hours. - Avoid alcoholic beverages and drugs for allergies, nerves, or sleep. - Do NOT stay alone. Do NOT leave your child unattended. - Do NOT make important personal or business decisions or sign any legal documents. - Eat solid foods and drink liquids in smaller amounts than usual until normal appetite returns. If you should experience an upset stomach, liquids high in sugar content (soda, Tarun-Aid, non-acid juices) are recommended. - You can resume normal activities tomorrow. FOLLOW UP & RECOMMENDATIONS: -Repeat EGD after 12 weeks to evaluate ulcer healing. -Start Protonix 40 mg daily 30 minutes before breakfast -Notify the doctor if you have any problems. -No need for repeat endoscopy. -Follow up with PCP. - Office number [phone]. [facility] Work Phone: Hospital Discharge instructions Additional Instructions DISCHARGE INSTRUCTIONS FOR UPPER ENDOSCOPY WHAT TO EXPECT: - You may feel full, gassy or cramping after your procedure. In some cases, this may be from a few hours to a day. Walking may help relieve the discomfort. - Your throat may feel sore today from the scope that the doctor passed through your throat to visualize your stomach. Take a throat lozenge or suck on ice to ease the discomfort. - You may notice some streaks of blood in your sputum if the doctor has taken a biopsy. - You should begin to recover from anesthesia within 1 hour of the procedure, however may feel groggy for the next 24 hours. DO's AND DON'Ts: - Call your doctor right away if you have a hard abdomen, severe pain, vomiting or if you cough up large amounts of blood. - Call your doctor if you develop any rashes, hives or difficulty breathing. - If you take 81 mg aspirin for your heart it is safe to resume this medication. - If you take other blood thinner medications your doctor will instruct you when these can safely be resumed. - Do NOT drive for 24 hours. - Do NOT operate machinery such as power tools, lawn mowers, snow blowers, sewing machines, etc. for 24 hours. - Avoid alcoholic beverages and drugs for allergies, nerves, or sleep. - Do NOT stay alone. Do NOT leave your child unattended. - Do NOT make important personal or business decisions or sign any legal documents. - Eat solid foods and drink liquids in smaller amounts than usual until normal appetite returns. If you should experience an upset stomach, liquids high in sugar content (soda, Tarun-Aid, non-acid juices) are recommended. - Do NOT smoke. - Do take it easy today. You need not stay in bed, but avoid strenuous activities such as jogging or working out. FOLLOW UP & RECOMMENDATIONS: -Avoid NSAIDs -Increase Protonix to 40 mg twice daily times before breakfast/dinner -Repeat EGD in 12 weeks -Notify the doctor if you have any problems. -Follow up with PCP. -Office number [phone]. [facility] Work Phone: Hospital Discharge instructions Additional Instructions DISCHARGE INSTRUCTIONS FOR UPPER ENDOSCOPY WHAT TO EXPECT: - You may feel full, gassy or cramping after your procedure. In some cases, this may be from a few hours to a day. Walking may help relieve the discomfort. - Your throat may feel sore today from the scope that the doctor passed through your throat to visualize your stomach. Take a throat lozenge or suck on ice to ease the discomfort. - You may notice some streaks of blood in your sputum if the doctor has taken a biopsy. - You should begin to recover from anesthesia within 1 hour of the procedure, however may feel groggy for the next 24 hours. DO's AND DON'Ts: - Call your doctor right away if you have a hard abdomen, severe pain, vomiting or if you cough up large amounts of blood. - Call your doctor if you develop any rashes, hives or difficulty breathing. - If you take 81 mg aspirin for your heart it is safe to resume this medication. - If you take other blood thinner medications your doctor will instruct you when these can safely be resumed. - Do NOT drive for 24 hours. - Do NOT operate machinery such as power tools, lawn mowers, snow blowers, sewing machines, etc. for 24 hours. - Avoid alcoholic beverages and drugs for allergies, nerves, or sleep. - Do NOT stay alone. Do NOT leave your child unattended. - Do NOT make important personal or business decisions or sign any legal documents. - Eat solid foods and drink liquids in smaller amounts than usual until normal appetite returns. If you should experience an upset stomach, liquids high in sugar content (soda, Tarun-Aid, non-acid juices) are recommended. - Do NOT smoke. - Do take it easy today. You need not stay in bed, but avoid strenuous activities such as jogging or working out. FOLLOW UP & RECOMMENDATIONS: -Notify the doctor if you have any problems. -Follow up with PCP. -Office number [phone]. [facility] Work Phone: Summary Purpose Family History Relationship Condition Age at Onset Recorded Date/T luna Not Specified Heart disease Unknown father Heart disease Unknown sister Diabetes mellitus Unknown sister Malignant neoplasm of colon Unknown sister Malignant neoplasm of lung Unknown brother Malignant melanoma Unknown Advance Directives Advance Directive Response Recorded Date/ Time Advance Directives No November 28 0 5:50pm Advance Directive Response Recorded Date/ Time Advance Directives No November 28 0 6:50pm Medications Administered Section Inactive Administered Medications - up to 3 most recent administrations Medication Order MAR Action Action Date Dose Rate Site acetaminophen 650 mg tab(s) (TYLENOL) 650 mg, ORAL, ONCE, 1 dose, On Tue05/25/22 at 1330, Give 30 minutes prior to infusion. No more than 4000 mg of acetaminophen should be given per day (FROM ALL SOURCES), If ordered PRN for pain, patient/guardian may elect to receive this medication for higher pain levels INSTEAD of the opioid, if preferred: N/A Given 05/25/2022 1:30 PM EST 650 mg diphenhydrAMINE 50 mg (BENADRYL) 50 mg, ORAL, ONCE, 1 dose, On Tue05/25/22 at 1330, Give 30 minutes prior to infusion. Given 05/25/2022 1:30 PM EST 50 mg ferric derisomaltose 1,000 mg in NaCl 0.9% 100 mL (MONOFERRIC) 1,000 mg (set by rule on 05/18/2022 4:02 PM), INTRAVENOUS, Administer over 45 Minutes, ONCE, 1 dose, On Tue05/25/22 at 1330, Monitor patient for hypersensitivity reactions during the infusion and for 30 minutes after infusion is complete. EXP: (8 HR) New Bag/Syringe/Bottle 05/25/2022 2:01 PM EST 1,000 mg Chief Complaint and Reason for Visit Chief Complaint Iron Deficiency Anem ia Iron Deficiency Anemia Chief Complaint Gastric Ulcer Additional Source Comments INFORMATION SOURCE (unrecogn ized section and content) DATE CREATED AUTHOR 01/06/2018 Bethany craig DATE CREATED AUTHOR AUTHOR'S ORGANIZ ATION 08/04/2022 [facility] DATE CREATED AUTHOR AUTHOR'S ORGANIZ ATION 11/10/2022 [facility] DATE CREATED AUTHOR AUTHOR'S ORGANIZ ATION 03/12/2023 [facility] Source Comments (unrecognize d section and content) In the event this informatio n is protected by the Federal Confidentiality of Alcohol and Drug Abuse Patient Records regulations: The Federal rules restrict any use of the information to criminally investigate or prosecute any alcohol or drug abuse patient.[facility] the event this information is protected by the Federal Confidentiality of Alcohol and Drug Abuse Patient Records regulations: The Federal rules restrict any use of the information to criminally investigate or prosecute any alcohol or drug abuse patient.[facility] the event this information is protected by the Federal Confidentiality of Alcohol and Drug Abuse Patient Records regulations: The Federal rules restrict any use of the information to criminally investigate or prosecute any alcohol or drug abuse patient.[facility] the event this information is protected by the Federal Confidentiality of Alcohol and Drug Abuse Patient Records regulations: The Federal rules restrict any use of the information to criminally investigate or prosecute any alcohol or drug abuse patient.[facility] the event this information is protected by the Federal Confidentiality of Alcohol and Drug Abuse Patient Records regulations: The Federal rules restrict any use of the information to criminally investigate or prosecute any alcohol or drug abuse patient.[facility] the event this information is protected by the Federal Confidentiality of Alcohol and Drug Abuse Patient Records regulations: The Federal rules restrict any use of the information to criminally investigate or prosecute any alcohol or drug abuse patient.[facility] Care Teams (unrecognized sec tion and content) Team Status: Active Member Role Status Dates Kvng Melgar DO Primary Care Provider Active Team Status: Inactive Member Role Status Dates Kvng Melgar DO Primary Care Provider Active Jeyson Diaz MD Attending Provider Active Emt Paramedic Relationship Specialty Start Date End Date Kvng Melgar DO PCP - General Internal Medicine 11/14/14 Emt Paramedic Relationship Specialty Start Date End Date Kvng Melgar, DO PCP - General Internal Medicine 11/14/14 Emt Paramedic Relationship Specialty Start Date End Date Kvng Melgar, DO PCP - General Internal Medicine 11/14/14 Emt Paramedic Relationship Specialty Start Date End Date Kvng Melgar, DO PCP - General Internal Medicine 11/14/14 Emt Paramedic Relationship Specialty Start Date End Date Kvng Melgar, DO PCP - General Internal Medicine 11/14/14 Emt Paramedic Relationship Specialty Start Date End Date Kvng Melgar, DO PCP - General Internal Medicine 11/14/14 Reason for Visit (unrecogniz ed section and content) Reason Comments Anemia Transition of care. Ref back by Dr. Melgar Reason Comments Benefits Investigation Specialty Diagnoses / Procedures Referred By Contac t Referred To Contact Diagnoses Iron deficiency anemia, unspecified iron deficiency anemia type Iron deficiency Mavis Santiago MD [address] [place] [phone] Damon Treat [address] [place] [address] Referral ID Status Reason Start Date Expiration Date V isits Requested Visits Authorized [id number] Authorized 05/18/2022 08/16/2022 99 99 Reason Comments Anemia 10 week follow up FOR RECORDS PERTAINING TO PATIENTS WHO ARE OR HAVE BEEN ENROLLED IN A CHEMICAL DEPENDENCY/SUBSTANCEABUSE PROGRAM, SOME INFORMATION MAY BE OMITTED. This clinical summary was aggregated from multiple sources. Caution should be exercised in using it in the provision of clinical care. This summary normalizes information from multiple sources, and as a consequence, information in this document may materially change the coding, format and clinical context of patient data. In addition, data may be omitted in some cases. CLINICAL DECISIONS SHOULD BE BASED ON THE PRIMARY CLINICAL RECORDS. [employer] [facility]. provides no warranty or guarantee of the accuracy or completeness of information in this document.
== END 2023-05-31 10:24 | disposition home or self-care (01) ==
LOC: LAB 10:28
PROVIDERS: PCP Internal Medicine; Visit Provider Internal Medicine
DX: N18.31 Chronic kidney disease, stage 3a (principal); E06.3 Autoimmune thyroiditis; M54.2 Cervicalgia; R41.3 Other amnesia; R20.2 Paresthesia of skin; R53.83 Other fatigue
CPT/HCPCS: 36415; 80053; 82607; 82728; 84443; 85025

== ENCOUNTER 2023-06-07 10:24 | Outpatient (OUT) | payer MEDICARE, OTHER, SELFPAY ==
--- NOTE | 2023-06-07 10:28 | MR_ITS ---
The [address] [address] Patient Name: ELIANE MOSS MRN: [id number] date: 1940 Sex: F Assigned Patient Location: MRI Current Patient Location: MRI Accession/Order Number: [id number] Exam Date: 06/07/2023 10:49 Report Date: 06/07/2023 16:05 At the request of: GAB WADSWORTH Procedure: MR head/brain wo con EXAM: MR head/brain wo con HISTORY: Memory Impairment R41.3, Paresthesia R20.2 COMPARISON: MRI brain 05/27/2021. TECHNIQUE: MRI of the brain was performed without contrast. FINDINGS: Exam is distorted secondary to motion artifact. Findings are made within these confines. There is no restricted diffusion to suggest acute infarct. There is no midline shift, mass effect, or abnormal extraaxial fluid collections. Mild to moderate enlargement of the cortical sulci and ventricular system are noted, consistent with age appropriate cerebral atrophy. Multiple nonspecific confluent and scattered foci of T2/FLAIR signal abnormality are identified in the subcortical and periventricular white matter, grossly unchanged since 05/27/2021, likely reflect chronic microvascular ischemic changes. The major intracranial flow voids are visualized. The cerebellar tonsils are normal in position. The orbits are unremarkable. The paranasal sinuses are essentially clear. There is unchanged mild opacification of bilateral mastoid air cells, likely represent chronic bilateral mild mastoid effusion. MR/MR head/brain wo con IMPRESSION: Within the limitations of motion artifact which moderately limited multiple pulse sequences, no discrete acute intracranial abnormality identified. Moderate chronic microvascular ischemia and involutional changes. Electronically authenticated by: ANNA MARIE MENSAH Date: 06/07/2023 16:05
== END 2023-06-07 10:25 | disposition home or self-care (01) ==
LOC: MRI 10:24
PROVIDERS: PCP Internal Medicine; Visit Provider Internal Medicine
DX: M54.2 Cervicalgia (principal); R41.3 Other amnesia; R20.2 Paresthesia of skin
CPT/HCPCS: 70551

== ENCOUNTER 2023-06-08 10:14 | Outpatient (RCR) | payer MEDICARE, OTHER, SELFPAY | END 2023-07-05 11:30 | disposition home or self-care (01) | LOC: PT 10:14 | PROVIDERS: PCP Internal Medicine; Visit Provider Internal Medicine | DX: M47.812 Spondylosis without myelopathy or radiculopathy, cervical region (principal); R51.9 Headache, unspecified; R29.3 Abnormal posture | CPT/HCPCS: 97010; 97110; 97140; 97161; G0283 ==

== ENCOUNTER 2023-06-17 07:19 | Outpatient (RCR) | payer MEDICARE, OTHER, SELFPAY ==
[2023-06-17] MEDS: ZOLEDRONIC ACID/MANNITOL-WATER 5 MG/100 ML BOTTLE 400 MG IV (10:14)
[2023-06-17 10:28] VITALS: BP 119/76; PULSE 60; RESP 18; TEMP 36.8; O2SAT 99
== END 2023-06-17 11:05 | disposition home or self-care (01) ==
LOC: INF 07:19
PROVIDERS: PCP Internal Medicine; Visit Provider Internal Medicine
DX: M81.0 Age-related osteoporosis without current pathological fracture (principal)
CPT/HCPCS: 96365; J3489

== ENCOUNTER 2023-09-01 15:00 | Outpatient (OUT) | payer MEDICARE, OTHER, SELFPAY ==
--- OUTSIDE RECORDS SUMMARY | 2023-09-01 15:11 | XMS_ITS | CCD ---
Author Name Unknown Address [address] [place] [address] Organization [facility] Care Team Providers Care Embalmer/Funeral Director Name Role Phone Doctor, No Unavailable Unavailable Doctor, No Unavailable Unavailable Donnell Barton Unavailable Unavailable Donnell Barton Unavailable Unavailable Kvng Melgar DO Primary Care Provider Kvng Melgar DO Primary Care Provider DO Kvng Melgar Primary Care Provider MD Jeyson Diaz Attending Provider KVNG MELGAR Primary Care Unavailable MAVIS SANTIAGO Referring Unavailable MAVIS SANTIAGO Attending Unavailable KVNG MELGAR Primary Care Unavailable KVNG MELGAR Primary Care Unavailable MAVIS SANTIAGO Attending Unavailable KVNG MELGAR Referring Unavailable KVNG MELGAR Primary Care Unavailable Adebayo Pan Unavailable Kvng Melgar Unavailable Jeyson Diaz Unavailable Sadiq Beckham Unavailable DO Kvng Melgar Primary Care Provider [phone] MD Jeyson Diaz Attending Provider DR KVNG MELGAR Primary Care Unavailable ERMELINDA, [...] Unavailable VELIA, BENJAMIN Consulting Unavailable Ball, DO Kvng Primary Care Provider [phone] MD Joe Imprice Attending Provider Ermelinda, DO Calderon Primary Care Provider [phone] MD Joe Imprice Attending Provider Asaad, Imad Attending Unavailable Ball, Kvng Primary Care Unavailable Asaad, Imad Admitting Unavailable Asaad, Imad Admitting Unavailable Asaad, Imad Attending Unavailable Ball, Kvng Primary Care Unavailable Asaad, Imad Admitting Unavailable Asaad, Imad Attending Unavailable Ball, Kvng Primary Care Unavailable Allergies Allergy Classification Reported Allergen(s) Allergy Type Date of Onset Reaction(s) Facility (7 sources) Penicillins; Translations: [PENICILLINS] Drug allergy (disorder) 11-16-19 15 [facility] Repository (7 sources) Sulfonamides (Antibiotic); Translations: [SULFA (SULFONAMIDE ANTIBIOTICS)] Drug allergy (disorder) 11-16-19 15 [facility] Repository (6 sources) Njkolns-Mgi-Sqv Reductase Inhibitor Drug allergy (disorder) 01-06-20 18 Unknown Reaction [facility] Repository (20 sources) Cephalosporins (Antibiotic); Translations: [CEPHALOSPORINS] Drug Allergy 10-24-19 15 Unknown [facility] (7 sources) HMG-CoA reductase inhibitor; Translations: [GNCWOBV-BGD-FDQ REDUCTASE INHIBITORS] Drug Allergy 01-06-20 18 Unknown [facility] (7 sources) Nitrofurantoin; Translations: [NITROFURANTOIN MACROCRYSTAL] Drug Allergy 10-12-19 19 Rash, Itching [facility] (6 sources) Penicillins Drug Allergy 11-16-19 15 [facility] (20 sources) Povidone-Iodine; Translations: [POVIDONE-IODINE] Drug Allergy 06-21-20 19 Unknown [facility] (20 sources) Sulfonamides (Antibiotic) Drug Allergy 11-16-19 15 [facility] (20 sources) Vancomycin; Translations: [VANCOMYCIN] Drug Allergy 10-12-19 19 Rash, Itching [facility] (20 sources) Nitrofurantoin; Translations: [nitrofurantoin] Drug Allergy 12-02-19 21 rash [facility] (20 sources) Penicillin G Benzathine Drug allergy rash [facility] Other (20 sources) Sulfacetamide / Sulfur Drug Allergy rash [facility] Other (20 sources) Statins Depletion [facility] black walnut pollen extract Drug Allergy 05-17-20 14 [facility] Repository (1 source) Cephalosporins (Antibiotic) Drug allergy (disorder) 10-24-19 15 [facility] Repository (2 sources) Nitrofurantoin Drug Allergy 10-24-19 15 rash [facility] Repository (1 source) Penicillins Drug allergy (disorder) 01-24-20 13 [facility] Repository (2 sources) Povidone-Iodine Drug Allergy 06-21-20 19 Unknown [facility] Repository (1 source) Sulfonamides (Antibiotic) Drug allergy (disorder) 01-31-20 13 [facility] Repository (1 source) Vancomycin Drug Allergy 10-24-19 15 [facility] Repository (20 sources) Statins Depletion *DIETARY PRODUCTS/DIETARY MANAGE Propensity to adverse reactions Unknown [facility] Other (20 sources) Substance with penicillin structure and antibacterial mechanism of action (substance) Drug allergy 04-30-20 06 PENICILLINS [facility] Other (20 sources) Sulf-10 Drug allergy 12-01-19 06 SULFA 10 [facility] Other (1 source) Vancomycin Drug Allergy rash [facility] Other (1 source) Cephalosporins (Antibiotic) Drug allergy (disorder) 08-10-19 [facility] Repository (1 source) Povidone-Iodine Drug Allergy 08-10-19 [facility] Repository (1 source) Vancomycin Drug Allergy 08-10-19 [facility] Repository Medications Current Medications Medication Drug Class(es) Dates Sig (Normalized) Sig (Original) acetaminophen 500 mg oral tablet (8 sources) Start: 07-26-2022 take 1 tablet by mouth four times daily Acetaminophen (Tylenol Ex Str Rapid Release) 500 mg Tablet Active 500 MG PO Four times daily July 26, 2022 12:00am take 1 tablet by mouth every six hours Tylenol Extra Strength 500 MG 1 tablet as needed Orally every 6 hrs Active acetaminophen 250 mg / aspirin 250 mg / caffeine 65 mg oral tablet (20 sources) Platelet Aggregation Inhibitor, Nonsteroidal Anti-inflammatory Drug, Central Nervous System Stimulant, Methylxanthine Start: 07-26-2022 take 1 tablet by mouth every four to six hours Sbecbvs-Tngdthrvrwgoj-Fkoogkvt (Excedrin Migraine) 250-250-65 mg Tablet Active 1 TAB PO EVERY 4-6 HOURS July 26, 2022 12:00am take 2 tablets by mouth every si x hours Excedrin Migraine 250-250-65 MG 2 tablets as needed Orally every 6 hrs Active [id number] actuat albuterol 0.09 mg/actuat metered dose [...] (20 sources) Dihydropyridine Calcium Channel Frandy Start: 0 take 2.5 mg by mouth once daily Amlodipine (Norvasc) 5 mg Tablet Active 2.5 MG PO Daily November 27, 2019 11:00pm Start: 09-02-2018 take 1 tablet by george th once daily Amlodipine (Norvasc) 5 mg Tablet Active 5 MG PO Daily November 27, 2019 11:00pm Comment on above: TK 1 T PO QD ascorbic acid 500 mg oral capsule (3 sources) Vitamin C Vitamin C 500 MG Orally Active atenolol 25 mg oral tablet (20 sources) beta-Adrenergic Frandy Start: 2014 take 1 tablet by mouth once daily Atenolol (Tenormin) 25 mg Tablet Active 25 MG PO Daily November 27, 2019 11:00pm Comment on above: Take 1 tablet by george th once daily. Calcium + D 315-200 MG-UNIT (20 sources) take 1 tablet by mouth twice daily at mealtime Calcium + D 315-200 MG-UNIT 1 tablet with meals Orally Twice a day Active calcium carbonate 1500 mg oral tablet (4 sources) Start: 2022 Calcium Carbonate (Calcium 600) 600 mg calcium (1,500 mg) Tablet Active 1200 MG PO Daily July 26, 2022 12:00am cholecalciferol 0.01 mg chewable tablet (4 sources) Vitamin D Start: 2022 take 1 tablet by mouth once daily Cholecalciferol (Vitamin D3) (Vitamin D3) 10 mcg (400 unit) Tablet,Chewable Active 20 MCG PO Daily July 26, 2022 12:00am dicyclomine hydrochloride 10 mg oral capsule (20 [...] Start: 12-28-2017 take 1 capsule by mo [facility] every twelve hours Doxycycline Hyclate 100 MG 1 capsule Orally every 12 hrs for 10 days Dec, Not-Taking famotidine 20 mg oral tablet (20 sources) Histamine-2 Receptor Antagonist Start: 07-26-2022 take 1 tablet by mouth once daily before mealtime Famotidine (Pepcid Ac) 20 mg Tablet Active 20 MG PO Daily July 26, 2022 12:00am take 1 tablet by mouth twice taniya ly famotidine (PEPCID) 20 mg tablet Take 20 mg by mouth twice daily. 0 Active Comment on above: Take 20 mg by mouth twice daily. glucosamine sulfate 750 mg oral tablet (2 sources) Start: 3 take 1 tablet by mouth once daily Glucosamine Sulfate (Dayan) 750 mg Tablet Active 750 MG PO Daily January 23, 2023 11:00pm administer with a meal levothyroxine sodium 0.112 mg oral tablet (20 sources) l-Thyroxine Start: 3 take 1 tablet by mouth once daily in the morning Levothyroxine Sodium 112 MCG 1 tablet in the morning on an empty stomach Orally Once a day Dec, Active Start: 10-05-2018 take 1 tablet by george once daily in the morning Levothyroxine Sodium 112 MCG 1 tablet in the morning on an empty stomach Orally Once a day Dec, Active Start: 10-05-2018 levothyroxine (SYNTHROID) 112 mcg tablet 0.125 mcg. 2 10/05/2018 Active take 1 tablet by george every twenty-four hours Levothyroxine Sodium 137 MCG 1 tablet Orally Once a day Active Comment on above: TAKE 1 TABLET BY GEORGE TH EVERYDAY ON AN EMPTY STOMACH 0.125 mcg. LORazepam 0.5 mg oral tablet (7 sources) Benzodiazepine Start: 05-31-2023 LORazepam 0.5 MG 1 tablet Orally one hour before procedure for 1 days May, Active losartan potassium 50 mg oral tablet (20 sources) Angiotensin 2 Receptor Frandy Losartan Potassium 5 0 MG Orally Active Multivitamin preparation (20 sources) Multivitamin Act kerri Multivitamin Not -Taking [place] 3 1200 MG (20 sources) take 1 capsule by mo [facility] once daily [place] 3 1200 MG 1 capsule Orally Once a day Active take 1 capsule by mouth once taniya ly [place] 3 1200 MG 1 capsule Orally Once a day Not-Taking pantoprazole 40 mg delayed release oral tablet (20 sources) Proton Pump Inhibitor Start: 03-25-2023 Pantoprazole Sodium 40 MG 1 tablet 30 minutes prior to morning meal Orally Once a day for 30 days Mar, Active Start: 10-28-2022 take 1 tablet by george th twice daily Pantoprazole Sodium 40 MG 1 tablet Orally Twice daily for 30 days Jun, Active Start: 07-26-2022 End: 10-28-2022 take 40 mg by mouth once daily Pantoprazole Discontinu ed 40 MG PO Daily October 27, 2022 11:00pm October 28, 2022 12:33pm predniSONE 20 mg oral tablet (8 sources) Start: 03-04-2023 predniSONE 20 MG 1 tablet Orally bid w /food x 3 days then qd w/ food x 3 days for 6 days Feb, Active red yeast rice 600 mg oral tablet (4 sources) Start: 07-26-2022 take 2400 mg by mouth once daily Red Yeast Rice Active 2400 MG PO Daily July 26, 2022 12:00am give with meal/snack Red Yeast Rice (20 sources) Red Yeast Rice A ctive Selenimin (20 sources) Selenimin Active Selenimin Not-[place] traMADol hydrochloride 50 mg oral tablet (20 sources) Opioid Agonist Start: 10-12-2022 take 1 tablet by mouth twice daily as needed for pain traMADol HCl 50 MG 1 tablet Orally twice daily as needed for pain for 30 days Start 06/20 w/ 2RF Jun, Active Start: 11-15-2014 End: 05-18-2022 take 1 [...] a Week for 7 days Feb, Active Start: 03-04-2023 Triamcinolone Acetonide 0.1 % [...] needed Orally every 6 hrs Not-Taking Vit C,J-Ec-Rhxib-Lutein-Zeax an (Preservision Areds-2) 250-90-40-1 mg Capsule (4 sources) Start: 07-26-2022 Vit C,C-Dl-Dmxfa-Lutein-Zeax an (Preservision Areds-2) 250-90-40-1 mg Capsule Active 1 TAB PO Twice daily July 26, 2022 1:00am Start: 07-26-2022 Vit C,E-Zn-Educational Sign Language Interpreter ar-Bbcfpf-Auulzz (Preservision Areds-2) 250-90-40-1 mg Capsule Active 1 TAB PO Twice daily July 26, 2022 12:00am Vitamin C 500 MG (20 sources) Vitamin C 500 MG Orally Active Vitamin C 500 MG Orally Not-Taking vitamin e d-alpha 400 unt oral capsule (3 sources) take 1 capsule by mo ut every twenty-four hours Vitamin E 400 UNIT [...] Drug Class(es) Dates Sig (Normalized) Sig (Original) aspirin/acetamino phen/caffeine (EXCEDRIN EXTRA STRENGTH ORAL) (5 sources) aspirin/acetamin op hen/caffeine (EXCEDRIN EXTRA STRENGTH ORAL) Take by mouth. 0 Active Comment on above: Take by mouth. CA/D3/MAG OX/ZINC/DIVORCE LAWYER/MEREDITH/ BOR (CALCIUM 600+D3 PLUS ORAL) (6 sources) take 1200 mg by mouth once daily CA/D3/MAG OX/ZINC/DIVORCE LAWYER/MEREDITH/B OR (CALCIUM 600+D3 PLUS ORAL) Take 1,200 mg by mouth once daily. 0 Active Comment on above: Take 1,200 mg by george th once daily. celecoxib 100 mg oral capsule (6 sources) Nonsteroidal Anti-inflammatory Drug Start: 11-28-2019 End: 07-26-2022 take 1 capsule by mouth once daily Celecoxib (Celebrex) 100 mg Capsule Discontinued 100 MG PO Daily November 27, 2019 11:00pm July 26, 2022 7:11am Start: 09-02-2018 End: 05-18-2022 take 3 capsules by mouth once daily celecoxib (CELEBREX) 100 mg capsule TK 1 C PO QD 3 09/02/2018 05/18/2022 Discontinued (Discontinued by another Health Care Provider) Comment on above: TK 1 C PO QD diclofenac sodium 75 mg delayed release oral tablet (20 sources) Nonsteroidal Anti-inflammatory Drug Start: 2 End: 3 take 75 mg by mouth twice daily Diclofenac Sodium Discontinued 75 MG PO Twice daily July 26, 2022 12:00am October 28, 2022 10:38am Comment on above: Take 75 mg by mouth twice daily. estrogens, conjugated (half-way) 0.3 mg oral tablet (20 sources) Estrogen Start: 0 End: 0 take 1 tablet by mouth once daily Conjugated Estrogens (Premarin) 0.3 mg Tablet Discontinued 0.3 MG PO Daily November 27, 2019 11:00pm November 28, 2019 10:12am Premarin 0.625 M G/GM Vaginal PRN Active [...] succinate 25 mg extended release oral tablet (6 sources) beta-Adrenergic Frandy Start: 2019 End: 2019 take 25 mg by mouth once daily Metoprolol Succinate Discontinued 25 MG PO Daily November 27, 2019 11:00pm May 29, 2020 11:10am Start: 11-08-2017 End: 05-18-2022 metoprolol succinate ER [...] above: Take by mouth. vit A/vit C/vit E/zinc/copper (PRESERVISION AREDS ORAL) (5 sources) vit A/vit C/vit E/zinc/copper (PRESERVISION AREDS ORAL) Take by mouth. 0 Active Comment on above: Take by mouth. Problems Active Problems Problem Classification Problem Date Documented Da te Episodic/Chronic Abdominal pain (16 sources) Abdominal pain; Translations: [Abdominal pain] Episodic [...] [Iron deficiency anemia, unspecified] Resolved: 05-10-2022 Episodic Deficiency and other anemia (2 sources) Iron deficiency anemia, unspecified; Translations: [Iron deficiency anemia] Episodic Diseases of white blood cells (20 sources) Leukocytosis; Translations: [Elevated white blood cell count, unspecified] Onset: 02-09-2022 Chronic Disorders of lipid metabolism (20 sources) Pure hypercholesterolemia; Translations: [Familial hypercholesterolemia] Onset: 04-18-2015 Chronic Esophageal disorders (15 sources) Gastro-esophageal reflux disease with esophagitis; Translations: [...] [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 Nausea and vomiting (6 sources) Nausea; Translations: [Nausea] Onset: 11-03-2015 Episodic Nutritional deficiencies (20 sources) Vitamin D deficiency; Translations: [Vitamin D deficiency, unspecified] Chronic Nutritional deficiencies (9 sources) Iron deficiency; Translations: [Iron deficiency] Onset: 11-15-2014 11-15-2014 Episodic Osteoarthritis (20 sources) Osteoarthritis of knee; Translations: [Unilateral primary osteoarthritis, right knee] Onset: 10-23-2013 Chronic Osteoporosis (20 sources) Primary osteoporosis; Translations: [Age-related osteoporosis without current pathological fracture] Chronic Other aftercare (2 sources) jail (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; Translations: [YARN DUMPER CURRNT USE OPIATE ANALGES] Onset: 10-26-2022 Episodic Other connective tissue disease (20 sources) [...] Episodic Other disorders of stomach and duodenum (16 sources) Indigestion; Translations: [Functional dyspepsia] Episodic Other [...] disease] Chronic Other gastrointestinal disorders (1 source) Constipation; Translations: [Constipation, unspecified] Episodic Other gastrointestinal disorders (1 source) Constipation, unspecified Episodic Other injuries and conditions due to external [...] Onset: 09-28-2022 Episodic Other nervous system disorders (11 sources) Paresthesia; Translations: [Paresthesia of skin] Episodic [...] ORGN/SYS] Onset: 10-26-2022 Episodic Residual codes; unclassified (11 sources) Memory impairment; Translations: [Other amnesia] Episodic [...] sciatica, unspecified chronicity] Unclassified (20 sources) 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; 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] Unclassified (3 sources) LOW BACK PAIN, [...] exposure to COVID-19] Unclassified (1 source) 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; Translations: [Chronic zkyk-HTUSW-09 syndrome] Viral infection (4 sources) COVID-19; Translations: [COVID-19] [...] Resolved: 05-10-2022 Chronic Deficiency and other anemia (5 sources) Anemia, unspecified; Translations: [ANEMIA UNSPECIFIED] Onset: 02-13-2022 Episodic Esophageal disorders (20 sources) Esophageal disorders; Translations: [Gastroesophageal reflux disease 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 hemorrhage] Immunizations and screening for infectious disease (2 sources) Encounter for immunization; Translations: [Vaccination given] Onset: 04-27-2016 Episodic Nonspecific chest pain (2 sources) Chest pain, unspecified; Translations: [Chest pain] Onset: 01-29-2022 Resolved: 05-22-2020 Episodic Other aftercare (1 source) Other terminal manager (current) drug therapy; Translations: [OTH INTERMEDIATE CURRENT DRUG THERAPY] Onset: 01-29-2022 Episodic Other aftercare (1 source) Encounter for follow-up examination after completed treatment for conditions other than malignant neoplasm; Translations: [Encounter for follow-up examination after completed treatment for conditions other than malignant neoplasm] Onset: 01-24-2023 Episodic Other inflammatory condition of skin (1 [...] Results Test Name Value Interpretation Reference Range Facility NM gastric emptying studyon 07-25-2023 NM gastric emptying study [facility] Main [place] [id number] Nuclear Medicine Report Signed Patient: Tangela Trinidad MR#: [id number] : 1940 Acct:[id number] Age/Sex: 83 / F ADM Date: 07/25/23 Loc: [place] Room: Type: [facility] Attending Dr: Jeyson Diaz MD Copies to: MD Gaston Li Jeffrey S DO Ordering Provider: Jeyson Diaz MD Date of Service: 07/25/23 CO/CO gastric emptying study: Nausea Nuclear medicine gastric emptying examination TECHNIQUE: 1.1mCi of technetium 99m sulfur colloid in oatmeal. COMPARISON: None HISTORY: Nausea. Stomach ulcers last year. The one half emptying time of the stomach is 25minutes. CO/CO gastric emptying study IMPRESSION: Adequate gastric emptying Impression dictated by: Matt Feldman M.D.07/25/2023 9:40 AM Dictation Location: [place] [address] Transcribed By: LUCAS 07/25/23939 Dictated By: Matt Feldman DO 07/25/2334 Signed By: 07/25/23939 [facility] 10-28-2022 L - -------- Specimen: [id number] Received: 10/28/22 Status: PIYUSH Joseph Num: [id number] Spec Type: Surgical Subm Dr: Jeyson Diaz MD Tissues: A Gastric Biopsy (GASTRIC ULCER IN FUNDUS) B Gastric Biopsy (GASTRIC ULCER IN BODY) C Esophagus Biopsy (ESOPHAGUS BX) Procedures: HE/6, Gross/Micro L4/3, H PYLORI/4 -------- Age/ Patient Sex Location Account Attending Physician -------- Tangela Trinidad 82/F [id number] Jyeson Diaz MD -------- SPEC NUM: [id number] RECD: 10/28/22 STATUS: PIYUSH JOSEPH NUM: [id number] JOSE: 10/28/22- [facility] DR: Jeyson Diaz MD ENTERED: 10/28/[address] [facility] [address]: ANDRA TYPE: Surgical DEPT: S ORDERED: HE/6, Gross/Micro L4/3, H PYLORI/4 ORDERED: HE/6, Gross/Micro L4/3, H PYLORI/4 Supplemental Report Addendum 1 Entered: 11/01/22 This supplemental report is issued to report Helicobacter pylori IHC performed on blocks A1 and B1 with satisfactory controls. Result: Negative for Helicobacter pylori microorganism in both parts. CPT: 01340x 2 Addendum Signed (signature on file) Fred Wilson MD 11/01/22 1537 -------- Pathological Diagnosis A. Stomach, fundus, ulcer, biopsy: - Chronic active gastritis. - No intestinal metaplasia or dysplasia seen. - Immunostain for H. pylori organisms will follow in supplemental report. B. Stomach, body, ulcer, biopsy: -------- Specimen: [id number] Received: 10/28/22 Status: PIYUSH Joseph Num: [id number] Spec Type: Surgical Subm Dr: Jeyson Diaz MD Tissues: A Gastric Biopsy (GASTRIC ULCER IN FUNDUS) B Gastric Biopsy (GASTRIC ULCER IN BODY) C Esophagus Biopsy (ESOPHAGUS BX) Procedures: HE/6, Gross/Micro L4/3, H PYLORI/4 -------- Patient: Tangela Trinidad Jocelyn [id number] (Continued) -------- Specimen: [id number] Received: 10/28/22 (Continued) Pathological Diagnosis (Continued) Signed (signature on file) Barrett Serra MD 10/29/22 0952 -------- Specimen: [id number] Received: 10/28/22 Status: PIYUSH Joseph Num: [id number] Spec Type: Surgical Subm Dr: Jeyson Diaz MD Tissues: A Gastric Biopsy (GASTRIC ULCER IN FUNDUS) B Gastric Biopsy (GASTRIC ULCER IN BODY) C Esophagus Biopsy (ESOPHAGUS BX) Procedures: HE/6, Gross/Micro L4/3, H PYLORI/4 -------- Patient: Tangela Trinidad [id number] (Continued) -------- Specimen: [id number] Received: 10/28/22 (Continued) Pathological Diagnosis (Continued) - [...] support the above pathologic diagnosis. CPT Codes 34125?3 (more content not included)... [facility] MG MAMM SCREEN 3D ROXANA CADon 10-20-2022 MG MAMM SCREEN 3D ROXANA CAD Patient: TANGELA TRINIDAD Exam Date: 10/20/2022 : 1940 Gender:F Ordering : DR KVNG MELAGR D.O. Admission #: [id number] Family : Order #: [id number] CLICK HERE TO VIEW EXAM RADIOLOGY REPORT PROCEDURE: MAMMOGRAM SCREENING 3D BILATERAL CAD COMPARISON: MG MAMM SCREEN ROXANA W CAD, 06/09/2020. MG MAMM SCREEN ROXANA [...] melonoma cancer at age 64. LOCATION: [facility] BREAST COMPOSITION: Scattered areas fibroglandular density. FINDINGS: [...] Guidry M.D. on 10/20/2022 at 13:19 Normal [facility] CBC W Auto Differential pane l (Bld)on 07-27-2022 Basophils (Bld) [#/Vol] 0.08 10*3/uL Normal <0.11 [facility] Comment on above: Order Comment: Speci men Type: BLOOD SPECIMEN Ordering Facility: [facility] Address: [address] [place] [address] Performed By: #### 1 4196-0, 84985-9 #### [facility] CLIA [id number] [address] [place] [address] Basophils/100 WBC (Bld) 0.9 % Normal [facility] Comment on above: Order Comment: Speci men Type: BLOOD SPECIMEN Ordering Facility: [facility] Address: [address] [place] [address] Performed By: #### 1 4196-0, 38106-2 #### [facility] CLIA [id number] [address] [place] [address] Differential cell count method Nom (Bld) Auto Normal [facility] Comment on above: Order Comment: Speci men Type: BLOOD SPECIMEN Ordering Facility: [facility] Address: [address] [place] [address] Performed By: #### 1 4196-0, 31435-2 #### [facility] CLIA [id number] [address] [place] [address] Eosinophils (Bld) [#/Vol] 0.52 10*3/uL High <0.46 [facility] Comment on above: Order Comment: Speci men Type: BLOOD SPECIMEN Ordering Facility: [facility] Address: [address] [address] Performed By: #### 1 4196-0, 75368-1 #### [facility] CLIA [id number] [address] [place] [address] Eosinophils/100 WBC (Bld) 5.8 % Normal [facility] Comment on above: Order Comment: Speci men Type: BLOOD SPECIMEN Ordering Facility: [facility] Address: [address] [address] Performed By: #### 1 4196-0, 43635-4 #### [facility] CLIA [id number] [address] [place] [address] Erythrocyte distribution width (RBC) [Ratio] 18.0 % High 11.5-15.0 [facility] Comment on above: Order Comment: Speci men Type: BLOOD SPECIMEN Ordering Facility: [facility] Address: [address] [address] Performed By: #### 1 4196-0, 47589-3 #### [facility] CLIA [id number] [address] [place] [address] Hematocrit (Bld) [Volume fraction] 39.6 % Normal 36.0-46.0 [facility] Comment on above: Order Comment: Speci men Type: BLOOD SPECIMEN Ordering Facility: [facility] Address: [address] [address] Performed By: #### 1 4196-0, 07162-0 #### [facility] CLIA [id number] [address] [place] [address] Hemoglobin (Bld) [Mass/Vol] 13.0 g/dL Normal 11.5-15.5 [facility] Comment on above: Order Comment: Speci men Type: BLOOD SPECIMEN Ordering Facility: [facility] Address: [address] [place] [address] Performed By: #### 1 4196-0, 77016-6 #### [facility] CLIA [id number] [address] [place] [address] Immature granulocytes (Bld) [#/Vol] 0.04 10*3/uL Normal <0.10 [facility] Comment on above: Order Comment: Speci men Type: BLOOD SPECIMEN Ordering Facility: [facility] Address: [address] [place] [address] Performed By: #### 1 4196-0, 21946-6 #### [facility] CLIA [id number] [address] [place] [address] 11099 Immature granulocytes/100 WBC (Bld) 0.4 % Normal [facility] Comment on above: Order Comment: Speci men Type: BLOOD SPECIMEN Ordering Facility: [facility] Address: [address] [place] [address] Performed By: #### 1 4196-0, 33027-4 #### [facility] CLIA [id number] [address] [place] [address] 98807 Lymphocytes (Bld) [#/Vol] 3.25 10*3/uL Normal 1.00-4.00 [facility] Comment on above: Order Comment: Speci men Type: BLOOD SPECIMEN Ordering Facility: [facility] Address: [address] [place] [address] Performed By: #### 1 4196-0, 44329-5 #### [facility] CLIA [id number] [address] [place] [address] 32645 Lymphocytes/100 WBC (Bld) 36.3 % Normal [facility] Comment on above: Order Comment: Speci men Type: BLOOD SPECIMEN Ordering Facility: [facility] Address: [address] [place] [address] Performed By: #### 1 4196-0, 99195-2 #### [facility] CLIA [id number] [address] [place] [address] 16105 MCH (RBC) [Entitic mass] 28.3 pg Normal 26.0-34.0 [facility] Comment on above: Order Comment: Speci men Type: BLOOD SPECIMEN Ordering Facility: [facility] Address: [address] [address] Performed By: #### 1 4196-0, 69108-9 #### [facility] CLIA [id number] [address] [place] [address] 99615 MCHC (RBC) [Mass/Vol] 32.8 g/dL Normal 30.5-36.0 [facility] Comment on above: Order Comment: Speci men Type: BLOOD SPECIMEN Ordering Facility: [facility] Address: [address] [address] Performed By: #### 1 4196-0, 80492-0 #### [facility] CLIA [id number] [address] [place] [address] 52607 MCV (RBC) [Entitic vol] 86.1 fL Normal 80.0-100.0 [facility] Comment on above: Order Comment: Speci men Type: BLOOD SPECIMEN Ordering Facility: [facility] Address: [address] [address] Performed By: #### 1 4196-0, 41599-2 #### [facility] CLIA [id number] [address] [place] [address] 06055 Monocytes (Bld) [#/Vol] 1.25 10*3/uL High <0.87 [facility] Comment on above: Order Comment: Speci men Type: BLOOD SPECIMEN Ordering Facility: [facility] Address: [address] [address] Performed By: #### 1 4196-0, 45063-6 #### [facility] CLIA [id number] [address] [place] [address] 77059 Monocytes/100 WBC (Bld) 14.0 % Normal [facility] Comment on above: Order Comment: Speci men Type: BLOOD SPECIMEN Ordering Facility: [facility] Address: [address] [address] Performed By: #### 1 4196-0, 64120-5 #### [facility] CLIA [id number] [address] [place] [address] Neutrophils (Bld) [#/Vol] 3.81 10*3/uL Normal 1.45-7.50 [facility] Comment on above: Order Comment: Speci men Type: BLOOD SPECIMEN Ordering Facility: [facility] Address: [address] [place] [address] Performed By: #### 1 4196-0, 82473-7 #### [facility] CLIA [id number] [address] [place] [address] 37047 Neutrophils/100 WBC (Bld) 42.6 % Normal [facility] Comment on above: Order Comment: Speci men Type: BLOOD SPECIMEN Ordering Facility: [facility] Address: [address] [place] [address] Performed By: #### 1 4196-0, 18970-7 #### [facility] CLIA [id number] [address] [place] [address] 00938 Nucleated RBC (Bld) [#/Vol] 10*3/uL Normal <0.01 [facility] Comment on above: Order Comment: Speci men Type: BLOOD SPECIMEN Ordering Facility: [facility] Address: [address] [place] [address] Performed By: #### 1 4196-0, 05438-4 #### [facility] CLIA [id number] [address] [place] [address] 92588 Nucleated RBC/100 WBC (Bld) [Ratio] 0.0 /100 WBC Normal [facility] Comment on above: Order Comment: Speci men Type: BLOOD SPECIMEN Ordering Facility: [facility] Address: [address] [place] [address] Performed By: #### 1 4196-0, 22915-2 #### [facility] CLIA [id number] [address] [place] [address] 73418 Platelet mean volume (Bld) [Entitic vol] 9.5 fL Normal 9.0-12.7 [facility] Comment on above: Order Comment: Speci men Type: BLOOD SPECIMEN Ordering Facility: [facility] Address: [address] [address] Performed By: #### 1 4196-0, 55063-6 #### [facility] CLIA [id number] [address] [place] [address] 34990 Platelets (Bld) [#/Vol] 379 10*3/uL Normal 150-400 [facility] Comment on above: Order Comment: Speci men Type: BLOOD SPECIMEN Ordering Facility: [facility] Address: [address] [address] Performed By: #### 1 4196-0, 94092-5 #### [facility] CLIA [id number] [address] [place] [address] 35706 RBC (Bld) [#/Vol] 4.60 10*6/uL Normal 3.90-5.20 [facility] Comment on above: Order Comment: Speci men Type: BLOOD SPECIMEN Ordering Facility: [facility] Address: [address] [address] Performed By: #### 1 4196-0, 22200-7 #### [facility] CLIA [id number] [address] [place] [address] 13474 WBC (Bld) [#/Vol] 8.95 10*3/uL Normal 3.70-11.00 [facility] Comment on above: Order Comment: Speci men Type: BLOOD SPECIMEN Ordering Facility: [facility] Address: [address] [place] [address] Performed By: #### 1 4196-0, 19059-2 #### [facility] CLIA [id number] [address] [place] [address] 80904 CNOVSPon 07-27-2022 CNOVSP Visit (SP) Office ([place]) TANGELA TRINIDAD ([id number]) 1940 F Date Time Provider Department 07/27/22 2:45 PM MAVIS SANTIAGO During your visit today, we recorded the following information about you: Temperature Pulse Respiration Blood pressure 98.1 degrees 64/minute 16/minute 125/72 Weight Height 66.5 kg 1.524 m Mavis Santiago MD 07/27/2022 2:56 PM Signed PATIENT NAME: Tangela Trinidad CLINIC NO.: [id number] ATTENDING PHYSICIAN: Mavis Santiago MD DATE OF [...] Range Status (more content not included)... Normal [facility] Ferritin SerPl-mCncon 2022 Ferritin [Mass/Vol] 104.0 ng/mL Normal 14.7-205.1 [facility] Comment on above: Order Comment: Speci men Type: BLOOD SPECIMEN Ordering Facility: [facility] Address: [address] [place] [address] Performed By: #### 5 0190-8, 2275- #### [facility] CLIA [id number] [address] [facility] [place] [address] [place] Iron and Iron binding capaci ty panelon 07-27-2022 Iron [Mass/Vol] 43 ug/dL Normal 41-186 [facility] Comment on above: Order Comment: Speci men Type: BLOOD SPECIMEN Ordering Facility: [facility] Address: [address] [place] [address] Performed By: #### 5 0190-8, 2275-4 #### [facility] CLIA [id number] [address] [place] [address] [place] Iron binding capacity [Mass/Vol] 265 ug/dL Normal 232-386 [facility] Comment on above: Order Comment: Speci men Type: BLOOD SPECIMEN Ordering Facility: [facility] Address: [address] [place] [address] Performed By: #### 5 0190-8, 2276-4 #### [facility] CLIA [id number] [address] [place] [address] [place] Iron/TIBC [Molar ratio] 16.2 % Normal 15.0-57.0 [facility] Comment on above: Order Comment: Speci men Type: BLOOD SPECIMEN Ordering Facility: [facility] Address: [address] [place] [address] Performed By: #### 5 0190-8, 6-4 #### [facility] [place] [id number] [address] [place] [address] [place] Retics #on 07-27-2022 Reticulocytes (Bld) [#/Vol] 0.92608 10*3/uL Normal 0.018-0.100 [facility] Comment on above: Order Comment: Speci men Type: BLOOD SPECIMEN Ordering Facility: [facility] Address: [address] [place] [address] Performed By: #### 1 4196-0, 09367-0 #### [facility] CLIA [id number] [address] [place] [address] 09676 Reticulocytes (Bld) [#/Vol]o n 07-27-2022 Reticulocytes/100 RBC (Bld) 0.9 % Normal 0.4-2.0 [facility] Comment on above: Order Comment: Speci men Type: BLOOD SPECIMEN Ordering Facility: [facility] Address: [address] [place] [address] Performed By: #### 1 4196-0, 00191-2 #### [facility] CLIA [id number] [address] [place] [address] 40815 COVID-19 SOFIAOrdered By: Brandy Diaz on 07-22-2022 SARS-CoV+SARS-CoV-2 (COVID-19) Ag IA.rapid Ql (Resp) Negative Negative [facility] Comment on above: This is a duplicate Heidi SARS Antigen (DB) result to be used for statistical tracking purpose only. No Panel InformationOrdered By: Jeyson Diaz on 07-22-2022 SARS Antigen (LFIA) [facility] CNSWon 06-02-2022 CNSW Social Work ([place]) TANGELA TRINIDAD ([id number]) 1940 F Date Time Provider Department 06/02/22 MARCIA RAMIRES During your visit today, we recorded the [...] - Hives POVIDONE-IODINE 06/21/2019 16 - Unknown [id number] REDUCTASE INHIBIT*01/05/2018 16 - Unknown SULFA (SULFONAMIDE [...] FOR SHORTNESS OF BREATH OR WHEEZING - aspirin/acetaminophen /caffeine (EXCEDRIN EXTRA STRENGTH ORAL) Take by mouth. - RED YEAST RICE ORAL Take by mouth. - vit A/vit C/vit E/zinc/copper (PRESERVISION AREDS ORAL) Take by mouth. - famotidine (PEPCID) 20 mg tablet Take 20 mg by mouth twice daily. - amLODIPine (NORVASC) 5 mg tablet TK 1 T PO QD - levothyroxine (SYNTHROID) 112 mcg tablet 0.125 mcg. - CA/D3/MAG OX/ZINC/DIVORCE LAWYER/MEREDITH/BOR (CALCIUM 600+D3 PLUS ORAL) Take 1,200 mg by mouth once daily. - atenolol (TENORMIN) 25 mg tablet Take 1 tablet by mouth once daily. Problem List As Of Date 06/02/2022 Noted Resolved Anemia [D64.9] 11/15/2014 Iron deficiency [E61.1] 11/15/2014 Encounter Status:Closed by MARCIA [facility]ES [facility] TANGELA TRINIDAD ([id number]) 1940 F Date Time Provider Department 05/25/22 [employer] DAMON HEMNADYA During your visit today, we recorded the following information about you: Mohit Lo [facility] 05/25/2022 3:35 PM Signed 1st report of treatment-non oncology regimen (Monoferric) Patient holds Medicare coverage. No FA available at this time. Allergies As of Date: 05/25/2022 Noted Allergy Reaction CEPHALOSPORINS 10/23/2014 16 - Unknown MACRODANTIN (NITROFURANTOIN MACRO*10/11/2018 2 - Rash 9 - Itching PENICILLINS 11/15/2014 4 - Hives POVIDONE-IODINE 06/21/2019 16 - Unknown [id number] REDUCTASE INHIBIT*01/05/2018 16 - Unknown SULFA (SULFONAMIDE [...] FOR SHORTNESS OF BREATH OR WHEEZING - aspirin/acetaminophen /caffeine (EXCEDRIN EXTRA STRENGTH ORAL) Take by mouth. - RED YEAST RICE ORAL Take by mouth. - vit A/vit C/vit E/zinc/copper (PRESERVISION AREDS ORAL) Take by mouth. - famotidine (PEPCID) 20 mg tablet Take 20 mg by mouth twice daily. - amLODIPine (NORVASC) 5 mg tablet TK 1 T PO QD - levothyroxine (SYNTHROID) 112 mcg tablet 0.125 mcg. - CA/D3/MAG OX/ZINC/DIVORCE LAWYER/MEREDITH/BOR (CALCIUM 600+D3 PLUS ORAL) Take 1,200 mg [...] Encounter Status:Closed by MOHIT SANTOS on 05/25/22 [facility] CNOVSPon 05-18-2022 CNOVSP Visit (SP) Office ([place]) TANGELA TRINIDAD ([id number]) 1940 F Date Time Provider Department 05/18/22 4:00 PM MAVIS SANTIAGO During your visit today, we recorded the following information about you: Temperature Pulse Respiration Blood pressure 98.1 degrees 78/minute 16/minute 122/78 Weight 68 kg Mavis Santiago MD 05/18/2022 4:08 PM Signed PATIENT NAME: Tangela Trinidad CLINIC NO.: [id number] ATTENDING PHYSICIAN: Mavis Santiago MD DATE OF [...] Range Status (more content not included)... Normal [facility] IMMUNOFIXATION(ELISE),PROTEIN ELEC(PE),[facility] 05-06-2022 Albumin [Mass/Vol] 2.9 g/dL Normal 2.9-4.4 [facility] Comment on above: Performed By: #### I FEPEFL #### [facility] [address] [place] [address] Dr. Yayo Gregg Albumin/Globulin [Mass ratio] 1.2 {ratio} Normal 0.7-1.7 [facility] Comment on above: Performed By: #### I FEPEFL #### [facility] [address] [address] [address] Yayo Gregg Nhkea-2-Colbusqz 0.3 g/dL Normal 0.0-0.4 [facility] Comment on above: Performed By: #### I FEPEFL #### [facility] [address] [address] [address] Yayo Gregg Rhzji-6-Hecqmswb 0.7 g/dL Normal 0.4-1.0 [facility] Comment on above: Performed By: #### I FEPEFL #### [facility] [address] [address] [address] Yayo Gregg Beta Globulin 0.9 g/dL Normal 0.7-1.3 [facility] Comment on above: Performed By: #### I FEPEFL #### [facility] [address] [address] [address] Yayo Gregg Free [place] Lt Chains,S 39.9 mg/L Critically high 3.3-19.4 [facility] Comment on above: Performed By: #### I FEPEFL #### [facility] [address] [place] [address] Dr. Yayo Gregg Free Lambda Lt Chains,S 22.7 mg/L Normal 5.7-26.3 [facility] Comment on above: Performed By: #### I FEPEFL #### [facility] [address] [address] [address] Yayo Gregg Gamma Globulin 0.6 g/dL Normal 0.4-1.8 [facility] Comment on above: Performed By: #### I FEPEFL #### [facility] [address] [place] [address] Dr. Yayo Gregg Globulin (S) [Mass/Vol] 2.6 g/dL Normal 2.2-3.9 [facility] Comment on above: Performed By: #### I FEPEFL #### [facility] [address] [address] [address] Yayo Gregg Immunofixation Result, Serum Comment Normal [facility] Comment on above: Result Comment: No m onoclonality detected. Performed By: #### I FEPEFL #### [facility] [address] [address] [address] Yayo Gregg Immunoglobulin A, Qn, Serum 81 mg/dL Normal 64-422 [facility] Comment on above: Performed By: #### I FEPEFL #### [facility] [address] [address] [address] Yayo Gregg Immunoglobulin G, Qn, Serum 547 mg/dL Critically low 586-1602 [facility] Comment on above: Performed By: #### I FEPEFL #### [facility] [address] [address] [address] Yayo Gregg Immunoglobulin M, Qn, Serum 92 mg/dL Normal 26-217 [facility] Comment on above: Performed By: #### I FEPEFL #### [facility] [address] [address] [address] Yayo Gregg [place]/Lambda Ratio, S 1.76 Critically high 0.26-1.65 [facility] Comment on above: Performed By: #### I FEPEFL #### [facility] [address] [address] [address] Yayo Gregg M-Johan Not Observed Normal Not Observed [facility] Comment on above: Performed By: #### I FEPEFL #### [facility] [address] [address] [address] Yayo Gregg PDF . Normal [facility] Comment on above: Performed By: #### I FEPEFL #### [facility] [address] [address] [address] Yayo Gregg Please note: Comment Normal [facility] Comment on above: Result Comment: Prot ein electrophoresis scan will follow via computer, mail, or retail worker delivery. Performed By: #### I FEPEFL #### [facility] [address] [address] [address] Yayo Gregg Protein [Mass/Vol] 5.5 g/dL Critically low 6.0-8.5 [facility] Comment on above: Performed By: #### I FEPEFL #### [facility] [address] [address] [address] Yayo Gregg IMMUNOGLOBULINS IGA/IGM/IGG QUANTITATIVEon 05-05-2022 Immunoglobulin A, Qn, Serum 83 mg/dL Normal 64-422 [facility] Comment on above: Performed By: #### I MMUNGL #### [facility] [address] [place] [address] Dr. Yayo Gregg Immunoglobulin G, Qn, Serum 559 mg/dL Critically low 586-1602 [facility] Comment on above: Performed By: #### I MMUNGL #### [facility] [address] [place] [address] Dr. Yayo Gregg Immunoglobulin M, Qn, Serum 93 mg/dL Normal 26-217 [facility] Comment on above: Performed By: #### I MMUNGL #### [facility] [address] [place] [address] Dr. Yayo Gregg CBC AUTO DIFFon 05-04-2022 BASO # 0.1 103/ul Normal 0.0-0.1 [facility] Comment on above: Performed By: #### I MMUNGL #### [facility] [address] [place] [address] Dr. Yayo Gregg Basophils/100 WBC (Bld) 0.9 % Normal 0.2-2.0 [facility] Comment on above: Performed By: #### I MMUNGL #### [facility] [address] [place] [address] Dr. Yayo Gregg EO # 0.7 103/ul Normal 0.0-0.7 [facility] Comment on above: Performed By: #### I MMUNGL #### [facility] [address] [place] [address] Dr. Yayo Gregg Eosinophils/100 WBC (Bld) 6.7 % Normal 0.9-7.0 [facility] Comment on above: Performed By: #### I MMUNGL #### [facility] [address] [place] [address] Dr. Yayo Gregg Erythrocyte distribution width (RBC) [Ratio] 15.6 % Critically high 11.0-15.0 [facility] Comment on above: Performed By: #### I MMUNGL #### [facility] [address] [place] [address] Dr. Yayo Gregg Hematocrit (Bld) [Volume fraction] 31.3 % Critically low 36.0-48.0 [facility] Comment on above: Performed By: #### I MMUNGL #### [facility] [address] [place] [address] Dr. Yayo Gregg Hemoglobin (Bld) [Mass/Vol] 10.0 g/dL Critically low 12.0-16.0 [facility] Comment on above: Performed By: #### I MMUNGL #### [facility] [address] [place] [address] Dr. Yayo Gregg IG # 0.04 10e3/ul Critically high 0.00-0.03 [facility] Comment on above: Performed By: #### I MMUNGL #### [facility] [address] [place] [address] Dr. Yayo Gregg IG % 0.4 % Normal 0.0-0.5 [facility] Comment on above: Performed By: #### I MMUNGL #### [facility] [address] [place] [address] Dr. Yayo Gregg LYMPH # 2.9 103/ul Normal 1.2-3.8 [facility] Comment on above: Performed By: #### I MMUNGL #### [facility] [address] [place] [address] Dr. Yayo Gregg Lymphocytes/100 WBC (Bld) 29.6 % Normal 20.5-60.0 [facility] Comment on above: Performed By: #### I MMUNGL #### [facility] [address] [place] [address] Dr. Yayo Gregg MANUAL DIFF REQ NO Normal [facility] Comment on above: Performed By: #### I MMUNGL #### [facility] [address] [place] [address] Dr. Yayo Gregg MCH (RBC) [Entitic mass] 25.7 pg Critically low 26.7-34.0 [facility] Comment on above: Performed By: #### I MMUNGL #### [facility] [address] [place] [address] Dr. Yayo Gregg MCHC (RBC) [Mass/Vol] 31.9 g/dL Normal 29.9-35.2 [facility] Comment on above: Performed By: #### I MMUNGL #### [facility] [address] [place] [address] Dr. Yayo Gregg MCV (RBC) [Entitic vol] 80.5 fL Critically low 81.0-99.0 [facility] Comment on above: Performed By: #### I MMUNGL #### [facility] [address] [place] [address] Dr. Yayo Gregg MONO # 1.4 103/ul Critically high 0.3-0.8 [facility] Comment on above: Performed By: #### I MMUNGL #### [facility] [address] [place] [address] Dr. Yayo Gregg Monocytes/100 WBC (Bld) 14.5 % Critically high 1.7-12.0 [facility] Comment on above: Performed By: #### I MMUNGL #### [facility] [address] [place] [address] Dr. Yayo Gregg NEUT # 4.7 103/ul Normal 1.4-6.5 [facility] Comment on above: Performed By: #### I MMUNGL #### [facility] [address] [place] [address] Dr. Yayo Gregg Neutrophils/100 WBC (Bld) 47.9 % Normal 43.0-75.0 [facility] Comment on above: Performed By: #### I MMUNGL #### [facility] [address] [place] [address] Dr. Yayo Gregg Platelet mean volume (Bld) [Entitic vol] 9.5 fL Normal 9.5-13.5 [facility] Comment on above: Performed By: #### I MMUNGL #### [facility] [address] [place] [address] Dr. Yayo Gregg PLT 457 103/ul Critically high 150-450 [facility] Comment on above: Performed By: #### I MMUNGL #### [facility] [address] [address] [address] Yayo Gregg RBC 3.89 106/ul Critically low 4.20-5.40 [facility] Comment on above: Performed By: #### I MMUNGL #### [facility] [address] [place] [address] Dr. Yayo Gregg WBC 9.8 103/ul Normal 4.0-11.0 [facility] Comment on above: Performed By: #### I MMUNGL #### [facility] [address] [place] [address] Dr. Yayo Gregg FERRITINon 05-04-2022 Ferritin [Mass/Vol] 20.0 ng/mL Normal 8.0-252.[address] [facility] Comment on above: Performed By: #### F ERR, FETIBC #### [facility] [address] [place] [address] Dr. Yayo Gregg IRON AND TIBCon 05-04-2022 % SATURATION 5.7 % Normal [facility] Comment on above: Performed By: #### F ERR, FETIBC #### [facility] [address] [place] [address] Dr. Yayo Gregg Iron [Mass/Vol] 18.0 ug/dL Critically low 50.0-170.[address] [facility] Comment on above: Performed By: #### F ERR, FETIBC #### [facility] [address] [place] [address] Dr. Yayo Gregg TIBC DIRECT 318.0 ug/dL Normal 250.0-450.0 [facility] Comment on above: Performed By: #### F ERR, FETIBC #### [facility] [address] [place] [address] Dr. Yayo Gregg PROF CHEM 8 (BAS METB)on Anion gap [Moles/Vol] 11.7 mmol/L Normal [facility] Comment on above: Performed By: #### I MMUNGL #### [facility] [address] [place] [address] Dr. Yayo Gregg Calcium [Mass/Vol] 8.1 mg/dL Critically low 8.5-10.1 [facility] [facility] [place] Comment on above: Performed By: #### I MMUNGL #### [facility] [address] [place] [address] Dr. Yayo Gregg Chloride [Moles/Vol] 100 mmol/L Normal 98-107 [facility] Comment on above: Performed By: #### I MMUNGL #### [facility] [address] [address] [address] Yayo Gregg CO2 [Moles/Vol] 25.7 mmol/L Normal 21.0-32.0 [facility] Comment on above: Performed By: #### I MMUNGL #### [facility] [address] [place] [address] Dr. Yayo Gregg Creatinine [Mass/Vol] 1.06 mg/dL Critically high 0.55-1.02 [facility] Comment on above: Performed By: #### I MMUNGL #### [facility] [address] [place] [address] Dr. Yayo Gregg EGFR-AF OMANI =60 Normal >=60 [facility] Comment on above: Performed By: #### I MMUNGL #### [facility] [address] [place] [address] Dr. Yayo Gregg EGFR-NON AF OMANI 49 mL/min/1.73m2 Critically low >=60 [facility] Comment on above: Performed By: #### I MMUNGL #### [facility] [address] [place] [address] Dr. Yayo Gregg Glucose [Mass/Vol] 121 mg/dL Critically high 74-106 [facility] Comment on above: Performed By: #### I MMUNGL #### [facility] [address] [place] [address] Dr. Yayo Gregg Potassium [Moles/Vol] 4.4 mmol/L Normal 3.5-5.1 [facility] Comment on above: Performed By: #### I MMUNGL #### [facility] [address] [place] [address] Dr. Yayo Gregg Sodium [Moles/Vol] 133 mmol/L Critically low 136-145 [facility] [place] Comment on above: Performed By: #### I MMUNGL #### [facility] [address] [place] [address] Dr. Yayo Gregg Urea nitrogen [Mass/Vol] 16.0 mg/dL Normal 7.0-18.0 [facility] Comment on above: Performed By: #### I MMUNGL #### [facility] [address] [place] [address] Dr. Yayo Gregg Urea nitrogen/Creatinine [Mass ratio] 15.1 mg/mg Normal [facility] Comment on above: Performed By: #### I MMUNGL #### [facility] [address] [place] [address] Dr. Yayo Gregg T PROTEIN SERUMon 05-04-2022 Protein [Mass/Vol] 6.0 g/dL Critically low 6.4-8.2 [facility] [place] Comment on above: Performed By: #### I MMUNGL #### [facility] [address] [place] [address] Dr. Yayo Gregg TSHon 05-04-2022 TSH 1.715 uIU/mL Normal 0.358-3.740 [facility] Comment on above: Performed By: #### I MMUNGL #### [facility] [address] [place] [address] Dr. Yayo Gregg CBC AUTO DIFFon 03-26-2022 BASO # 0.1 103/ul Normal 0.0-0.1 [facility] Comment on above: Performed By: #### C BC #### [facility] [address] [place] [address] Dr. Yayo Gregg Basophils/100 WBC (Bld) 1.0 % Normal 0.2-2.0 [facility] Comment on above: Performed By: #### C BC #### [facility] [address] [place] [address] Dr. Yayo Gregg EO # 0.8 103/ul Critically high 0.0-0.7 [facility] Comment on above: Performed By: #### C BC #### [facility] [address] [place] [address] Dr. Yayo Gregg Eosinophils/100 WBC (Bld) 7.6 % Critically high 0.9-7.0 [facility] Comment on above: Performed By: #### C BC #### [facility] [address] [place] [address] Dr. Yayo Gregg Erythrocyte distribution width (RBC) [Ratio] 15.1 % Critically high 11.0-15.0 [facility] Comment on above: Performed By: #### C BC #### [facility] [address] [place] [address] Dr. Yayo Gregg Hematocrit (Bld) [Volume fraction] 32.0 % Critically low 36.0-48.0 [facility] Comment on above: Performed By: #### C BC #### [facility] [address] [place] [address] Dr. Yayo Gregg Hemoglobin (Bld) [Mass/Vol] 10.4 g/dL Critically low 12.0-16.0 [facility] Comment on above: Performed By: #### C BC #### [facility] [address] [place] [address] Dr. Yayo Gregg IG # 0.05 10e3/ul Critically high 0.00-0.03 [facility] Comment on above: Performed By: #### C BC #### [facility] [address] [place] [address] Dr. Yayo Gregg IG % 0.5 % Normal 0.0-0.5 [facility] Comment on above: Performed By: #### C BC #### [facility] [address] [place] [address] Dr. Yayo Gregg LYMPH # 2.9 103/ul Normal 1.2-3.8 [facility] Comment on above: Performed By: #### C BC #### [facility] [address] [place] [address] Dr. Yayo Gregg Lymphocytes/100 WBC (Bld) 27.7 % Normal 20.5-60.0 [facility] Comment on above: Performed By: #### C BC #### [facility] [address] [place] [address] Dr. Yayo Gregg MANUAL DIFF REQ NO Normal [facility] Comment on above: Performed By: #### C BC #### [facility] [address] [place] [address] Dr. Yayo Gregg MCH (RBC) [Entitic mass] 26.5 pg Critically low 26.7-34.0 [facility] Comment on above: Performed By: #### C BC #### [facility] [address] [place] [address] Dr. Yayo Gregg MCHC (RBC) [Mass/Vol] 32.5 g/dL Normal 29.9-35.2 [facility] Comment on above: Performed By: #### C BC #### [facility] [address] [place] [address] Dr. Yayo Gregg MCV (RBC) [Entitic vol] 81.4 fL Normal 81.0-99.0 [facility] Comment on above: Performed By: #### C BC #### [facility] [address] [place] [address] Dr. Yayo Gregg MONO # 1.3 103/ul Critically high 0.3-0.8 [facility] Comment on above: Performed By: #### C BC #### [facility] [address] [place] [address] Dr. Yayo Gregg Monocytes/100 WBC (Bld) 12.5 % Critically high 1.7-12.0 [facility] Comment on above: Performed By: #### C BC #### [facility] [address] [place] [address] Dr. Yayo Gregg NEUT # 5.2 103/ul Normal 1.4-6.5 [facility] Comment on above: Performed By: #### C BC #### [facility] [address] [place] [address] Dr. Yayo Gregg Neutrophils/100 WBC (Bld) 50.7 % Normal 43.0-75.0 [facility] Comment on above: Performed By: #### C BC #### [facility] [address] [place] [address] Dr. Yayo Gregg Platelet mean volume (Bld) [Entitic vol] 9.6 fL Normal 9.5-13.5 [facility] Comment on above: Performed By: #### C BC #### [facility] [address] [place] [address] Dr. Yayo Gregg PLT 409 103/ul Normal 150-450 [facility] Comment on above: Performed By: #### C BC #### [facility] [address] [place] [address] Dr. Yayo Gregg RBC 3.93 106/ul Critically low 4.20-5.40 [facility] Comment on above: Performed By: #### C BC #### [facility] [address] [place] [address] Dr. Yayo Gregg WBC 10.3 103/ul Normal 4.0-11.0 [facility] Comment on above: Performed By: #### C BC #### [facility] [address] [place] [address] Dr. Yayo Gregg FERRITINon 03-26-2022 Ferritin [Mass/Vol] 22.0 ng/mL Normal 8.0-252.[address] [facility] Comment on above: Performed By: #### I MMUNGL #### [facility] [address] [place] [address] Dr. Yayo Gregg CBC AUTO DIFFon 02-09-2022 BASO # 0.1 103/ul Normal 0.0-0.1 [facility] Comment on above: Performed By: #### C BC #### [facility] [address] [place] [address] Dr. Yayo Gregg Basophils/100 WBC (Bld) 0.7 % Normal 0.2-2.0 [facility] Comment on above: Performed By: #### C BC #### [facility] [address] [place] [address] Dr. Yayo Gregg EO # 0.9 103/ul Critically high 0.0-0.7 [facility] Comment on above: Performed By: #### C BC #### [facility] [address] [address] [address] Yayo Gregg Eosinophils/100 WBC (Bld) 7.5 % Critically high 0.9-7.0 [facility] Comment on above: Performed By: #### C BC #### [facility] [address] [place] [address] Dr. Yayo Gregg Erythrocyte distribution width (RBC) [Ratio] 15.1 % Critically high 11.0-15.0 [facility] Comment on above: Performed By: #### C BC #### [facility] [address] [place] [address] Dr. Yayo Gregg Hematocrit (Bld) [Volume fraction] 32.5 % Critically low 36.0-48.0 [facility] Comment on above: Performed By: #### C BC #### [facility] [address] [place] [address] Dr. Yayo Gregg Hemoglobin (Bld) [Mass/Vol] 10.9 g/dL Critically low 12.0-16.0 [facility] Comment on above: Performed By: #### C BC #### [facility] [address] [place] [address] Dr. Yayo Gregg IG # 0.16 10e3/ul Critically high 0.00-0.03 [facility] Comment on above: Performed By: #### C BC #### [facility] [address] [place] [address] Dr. Yayo Gregg IG % 1.3 % Critically high 0.0-0.5 [facility] Comment on above: Performed By: #### C BC #### [facility] [address] [place] [address] Dr. Yayo Gregg LYMPH # 2.9 103/ul Normal 1.2-3.8 [facility] Comment on above: Performed By: #### C BC #### [facility] [address] [place] [address] Dr. Yayo Gregg Lymphocytes/100 WBC (Bld) 24.0 % Normal 20.5-60.0 [facility] Comment on above: Performed By: #### C BC #### [facility] [address] [place] [address] Dr. Yayo Gregg MANUAL DIFF REQ NO Normal [facility] Comment on above: Performed By: #### C BC #### [facility] [address] [place] [address] Dr. Yayo Gregg MCH (RBC) [Entitic mass] 27.2 pg Normal 26.7-34.0 [facility] Comment on above: Performed By: #### C BC #### [facility] [address] [place] [address] Dr. Yayo Gregg MCHC (RBC) [Mass/Vol] 33.5 g/dL Normal 29.9-35.2 [facility] Comment on above: Performed By: #### C BC #### [facility] [address] [place] [address] Dr. Yayo Gregg MCV (RBC) [Entitic vol] 81.0 fL Normal 81.0-99.0 [facility] Comment on above: Performed By: #### C BC #### [facility] [address] [place] [address] Dr. Yayo Gregg MONO # 1.6 103/ul Critically high 0.3-0.8 [facility] Comment on above: Performed By: #### C BC #### [facility] [address] [place] [address] Dr. Yayo Gregg Monocytes/100 WBC (Bld) 13.4 % Critically high 1.7-12.0 [facility] Comment on above: Performed By: #### C BC #### [facility] [address] [place] [address] Dr. Yayo Gregg NEUT # 6.3 103/ul Normal 1.4-6.5 [facility] Comment on above: Performed By: #### C BC #### [facility] [address] [place] [address] Dr. Yayo Gregg Neutrophils/100 WBC (Bld) 53.1 % Normal 43.0-75.0 [facility] Comment on above: Performed By: #### C BC #### [facility] [address] [address] [address] Yayo Gregg Platelet mean volume (Bld) [Entitic vol] 9.4 fL Critically low 9.5-13.5 [facility] Comment on above: Performed By: #### C BC #### [facility] [address] [address] [address] Yayo Gregg PLT 426 103/ul Normal 150-450 [facility] Comment on above: Performed By: #### C BC #### [facility] [address] [address] [address] Yayo Gregg RBC 4.01 106/ul Critically low 4.20-5.40 [facility] Comment on above: Performed By: #### C BC #### [facility] [address] [place] [address] Dr. Yayo Grgeg WBC 11.9 103/ul Critically high 4.0-11.0 [facility] Comment on above: Performed By: #### C BC #### [facility] [address] [place] [address] Dr. Yayo Gregg FERRITINon 02-09-2022 Ferritin [Mass/Vol] 36.0 ng/mL Normal 8.0-252.0 [facility] Comment on above: Performed By: #### V ITB12, FETIBC, FERR #### [facility] [address] [place] [address] Dr. Yayo Gregg IRON AND TIBCon 02-09-2022 % SATURATION 5.2 % Normal [facility] Comment on above: Performed By: #### V ITB12, FETIBC, FERR #### [facility] [address] [address] [address] Yayo Gregg Iron [Mass/Vol] 16.0 ug/dL Critically low 50.0-170.0 [facility] Comment on above: Performed By: #### V ITB12, FETIBC, FERR #### [facility] [address] [place] [address] Dr. Yayo Gregg TIBC DIRECT 305.0 ug/dL Normal 250.0-450.0 [facility] Comment on above: Performed By: #### V ITB12, FETIBC, FERR #### [facility] [address] [address] [address] Yayo Gregg VITAMIN B12on 02-09-2022 Cobalamin (Vitamin B12) [Mass/Vol] 819.0 pg/mL Normal 193.0-986.0 [facility] Comment on above: Performed By: #### V ITB12, FETIBC, FERR #### [facility] [address] [address] [address] Yayo Gregg BNPon 01-27-2022 Natriuretic peptide B (Bld) [Mass/Vol] 270.0 pg/mL Normal <=1,800.0 [facility] Comment on above: Performed By: #### I MMUNGL #### [facility] [address] [place] [address] Dr. Yayo Gregg CARDIAC TARAN ADMITon 022 CK [Catalytic activity/Vol] 143 U/L Normal 26-192 [facility] Comment on above: Performed By: #### I MMUNGL #### [facility] [address] [place] [address] Dr. Yayo Gregg CK.MB [Mass/Vol] 2.66 ng/mL Normal <=3.60 [facility] Comment on above: Performed By: #### I MMUNGL #### [facility] [address] [place] [address] Dr. Yayo Gregg HSTROP 4.0 pg/mL Normal 4.0-51.3 [facility] Comment on above: Result Comment: CUT- OFF POINTS HAVE BEEN ESTABLISHED BASED ON THE FOURTH UNIVERSAL DEFINITIONS OF MYOCARDIAL INFARCTION. THE UPPER REFERENCE LIMIT (URL) OF TROPONIN, DEFINED THE 99TH PERCENTILE OF cTnI DISTRIBUTION IN A REFERENCE POPULATION, HAS BEEN CONFIRMED THE DECISION THRESHOLD FOR [place] DIAGNOSIS. Performed By: #### I MMUNGL #### [facility] [address] [place] [address] Dr. Yayo Gregg CARA 113 ng/mL Critically high 9-82 [facility] Comment on above: Performed By: #### I MMUNGL #### [facility] [address] [address] [address] Yayo Gregg CBC AUTO DIFFon 01-27-2022 BASO # 0.1 103/ul Normal 0.0-0.1 [facility] Comment on above: Performed By: #### C BC #### [facility] [address] [address] [address] Yayo Gregg Basophils/100 WBC (Bld) 0.7 % Normal 0.2-2.0 [facility] Comment on above: Performed By: #### C BC #### [facility] [address] [place] [address] Dr. Yayo Gregg EO # 1.1 103/ul Critically high 0.0-0.7 [facility] Comment on above: Performed By: #### C BC #### [facility] [address] [place] [address] Dr. Yayo Gregg Eosinophils/100 WBC (Bld) 7.3 % Critically high 0.9-7.0 [facility] Comment on above: Performed By: #### C BC #### [facility] [address] [place] [address] Dr. Yayo Gregg Erythrocyte distribution width (RBC) [Ratio] 13.8 % Normal 11.0-15.0 [facility] Comment on above: Performed By: #### C BC #### [facility] [address] [place] [address] Dr. Yayo Gregg Hematocrit (Bld) [Volume fraction] 34.4 % Critically low 36.0-48.0 [facility] Comment on above: Performed By: #### C BC #### [facility] [address] [place] [address] Dr. Yayo Gregg Hemoglobin (Bld) [Mass/Vol] 11.3 g/dL Critically low 12.0-16.0 [facility] Comment on above: Performed By: #### C BC #### [facility] [address] [place] [address] Dr. Yayo Gregg IG # 0.09 10e3/ul Critically high 0.00-0.03 [facility] Comment on above: Performed By: #### C BC #### [facility] [address] [address] [address] Yayo Gregg IG % 0.6 % Critically high 0.0-0.5 [facility] Comment on above: Performed By: #### C BC #### [facility] [address] [place] [address] Dr. Yayo Gregg LYMPH # 2.5 103/ul Normal 1.2-3.8 [facility] Comment on above: Performed By: #### C BC #### [facility] [address] [place] [address] Dr. Yayo Gregg Lymphocytes/100 WBC (Bld) 16.6 % Critically low 20.5-60.0 [facility] Comment on above: Performed By: #### C BC #### [facility] [address] [place] [address] Dr. Yayo Gregg MANUAL DIFF REQ NO Normal [facility] Comment on above: Performed By: #### C BC #### [facility] [address] [place] [address] Dr. Yayo Gregg MCH (RBC) [Entitic mass] 26.7 pg Normal 26.7-34.0 [facility] Comment on above: Performed By: #### C BC #### [facility] [address] [place] [address] Dr. Yayo Gregg MCHC (RBC) [Mass/Vol] 32.8 g/dL Normal 29.9-35.2 [facility] Comment on above: Performed By: #### C BC #### [facility] [address] [place] [address] Dr. Yayo Gregg MCV (RBC) [Entitic vol] 81.1 fL Normal 81.0-99.0 [facility] Comment on above: Performed By: #### C BC #### [facility] [address] [place] [address] Dr. Yayo Gregg MONO # 2.1 103/ul Critically high 0.3-0.8 [facility] Comment on above: Performed By: #### C BC #### [facility] [address] [address] [address] Yayo Gregg Monocytes/100 WBC (Bld) 14.0 % Critically high 1.7-12.0 [facility] Comment on above: Performed By: #### C BC #### [facility] [address] [address] [address] Yayo Gregg NEUT # 9.1 103/ul Critically high 1.4-6.5 [facility] Comment on above: Performed By: #### C BC #### [facility] [address] [address] [address] Yayo Gregg Neutrophils/100 WBC (Bld) 60.8 % Normal 43.0-75.0 [facility] Comment on above: Performed By: #### C BC #### [facility] [address] [place] [address] Dr. Yayo Gregg Platelet mean volume (Bld) [Entitic vol] 10.2 fL Normal 9.5-13.5 [facility] Comment on above: Performed By: #### C BC #### [facility] [address] [place] [address] Dr. Yayo Gregg PLT 455 103/ul Critically high 150-450 [facility] Comment on above: Performed By: #### C BC #### [facility] [address] [place] [address] Dr. Yayo Gregg RBC 4.24 106/ul Normal 4.20-5.40 [facility] Comment on above: Performed By: #### C BC #### [facility] [address] [place] [address] Dr. Yayo Gregg WBC 14.9 103/ul Critically high 4.0-11.0 [facility] Comment on above: Performed By: #### C BC #### [facility] [address] [place] [address] Dr. Yayo Gregg [facility] SARS-CoV-2 (COVID-19) RNA CHANTALE+probe Ql (Unsp spec) Not detected Normal NOT DETECTED [facility] Comment on above: Result Comment: When diagnostic [...] for this test is supported by the Civil Preparedness Officer of Health and Human Service's declaration that [...] used). Performed By: #### C BC #### [facility] [address] [place] [address] Dr. Yayo Gregg PROF 14(COMP METB)on 022 Albumin [Mass/Vol] 3.0 g/dL Critically low 3.4-5.0 [facility] [place] Comment on above: Performed By: #### I MMUNGL #### [facility] [address] [place] [address] Dr. Yayo Gregg Albumin/Globulin [Mass ratio] 0.9 {ratio} Normal [facility] Comment on above: Performed By: #### I MMUNGL #### [facility] [address] [place] [address] Dr. Yayo Gregg ALP [Catalytic activity/Vol] 95 U/L Normal 46-116 [facility] Comment on above: Performed By: #### I MMUNGL #### [facility] [address] [place] [address] Dr. Yayo Gregg ALT [Catalytic activity/Vol] 28 U/L Normal 14-59 [facility] Comment on above: Performed By: #### I MMUNGL #### [facility] [address] [place] [address] Dr. Yayo Gregg Anion gap [Moles/Vol] 11.9 mmol/L Normal Th [facility] [place] Comment on above: Performed By: #### I MMUNGL #### [facility] [address] [place] [address] Dr. Yayo Gregg AST [Catalytic activity/Vol] 24 U/L Normal 15-37 [facility] Comment on above: Performed By: #### I MMUNGL #### [facility] [address] [place] [address] Dr. Yayo Gregg Bilirubin [Mass/Vol] 0.3 mg/dL Normal 0.2-1.0 [facility] Comment on above: Performed By: #### I MMUNGL #### [facility] [address] [place] [address] Dr. Yayo Gregg Calcium [Mass/Vol] 8.8 mg/dL Normal 8.5-10.1 [facility] Comment on above: Performed By: #### I MMUNGL #### [facility] [address] [place] [address] Dr. Yayo Gregg Chloride [Moles/Vol] 98 mmol/L Normal 98-107 [facility] Comment on above: Performed By: #### I MMUNGL #### [facility] [address] [place] [address] Dr. Yayo Gregg CO2 [Moles/Vol] 24.6 mmol/L Normal 21.0-32.0 [facility] Comment on above: Performed By: #### I MMUNGL #### [facility] [address] [place] [address] Dr. Yayo Gregg Creatinine [Mass/Vol] 0.91 mg/dL Normal 0.55-1.02 [facility] Comment on above: Performed By: #### I MMUNGL #### [facility] [address] [place] [address] Dr. Yayo Gregg EGFR-AF OMANI >60 Normal >=60 [facility] Comment on above: Performed By: #### I MMUNGL #### [facility] [address] [place] [address] Dr. Yayo Gregg EGFR-NON AF OMANI 59 mL/min/1.73m2 Critically low >=60 [facility] Comment on above: Performed By: #### I MMUNGL #### [facility] [address] [place] [address] Dr. Yayo Gregg Globulin (S) [Mass/Vol] 3.3 g/dL Normal [facility] Comment on above: Performed By: #### I MMUNGL #### [facility] [address] [place] [address] Dr. Yayo Gregg Glucose [Mass/Vol] 95 mg/dL Normal 74-106 [facility] Comment on above: Performed By: #### I MMUNGL #### [facility] [address] [place] [address] Dr. Yayo Gregg Potassium [Moles/Vol] 4.5 mmol/L Normal 3.5-5.1 [facility] Comment on above: Performed By: #### I MMUNGL #### [facility] [address] [place] [address] Dr. Yayo Gregg Protein [Mass/Vol] 6.3 g/dL Critically low 6.4-8.2 [facility] Comment on above: Performed By: #### I MMUNGL #### [facility] [address] [place] [address] Dr. Yayo Gregg Sodium [Moles/Vol] 130 mmol/L Critically low 136-145 Th [facility] Comment on above: Performed By: #### I MMUNGL #### [facility] [address] [place] [address] Dr. Yayo Gregg Urea nitrogen [Mass/Vol] 12.0 mg/dL Normal 7.0-18.0 [facility] Comment on above: Performed By: #### I MMUNGL #### [facility] [address] [place] [address] Dr. Yayo Gregg Urea nitrogen/Creatinine [Mass ratio] 13.2 mg/mg Normal [facility] Comment on above: Performed By: #### I MMUNGL #### [facility] [address] [place] [address] Dr. Yayo Gregg PROTIMEon 01-27-2022 INR Coag (PPP) [Relative time] 0.96 {INR} Normal [facility] Comment on above: Performed By: #### I MMUNGL #### [facility] [address] [place] [address] Dr. Yayo Gregg INR GUIDELINES SEE BELOW Normal [facility] Comment on above: Result Comment: ASHLEY RED INR: 2.0 - 3.0 CONDITIONS NOT LISTED BELOW 2.5 - 3.5 FOR PROSTHETIC HEART VALVE REPLACEMENT 2.5 - 3.5 RECURRENT THROMBOSIS Performed By: #### I MMUNGL #### [facility] [address] [place] [address] Dr. Yayo Gregg PT Coag (PPP) [Time] 10.4 s Normal 9.0-11.6 [facility] Comment on above: Performed By: #### I MMUNGL #### [facility] [address] [place] [address] Dr. Yayo Gregg PTTon 01-27-2022 aPTT Coag (Bld) [Time] 31.6 s Normal 22.3-36.2 [facility] Comment on above: Performed By: #### I MMUNGL #### [facility] [address] [place] [address] Dr. Yayo Gregg TROPONIN, HIGH SENSITIVITYon 01-27-2022 HSTROP 4.7 pg/mL Normal 4.0-51.3 [facility] Comment on above: Result Comment: CUT- OFF POINTS HAVE BEEN ESTABLISHED BASED ON THE FOURTH UNIVERSAL DEFINITIONS OF MYOCARDIAL INFARCTION. THE UPPER REFERENCE LIMIT (URL) OF TROPONIN, DEFINED THE 99TH PERCENTILE OF cTnI DISTRIBUTION IN A REFERENCE POPULATION, HAS BEEN CONFIRMED THE DECISION THRESHOLD FOR [place] DIAGNOSIS. Performed By: #### H STROPN #### [facility] [address] [place] [address] Dr. Yayo Gregg XR CHEST 1 Von [...] by: ANTHONY GUIDRY Date: 2022-01-27 11:47 Normal [facility] XR LSPINE 2_3 VIEWSon 2021 XR LSPINE [...] by: BENJAMIN GUNN Date: 2021-12-18 14:19 Normal [facility] BASIC METABOLIC PANEL(BMP)on 01-06-2018 Anion gap 12 mmol/L Normal 9-18 [facility] Comment on above: Performed By: #### C SHARITA ZCBCGR ####MAIN LABCLIA:[id number] [place] [address] BUN (urea nitrogen) 17 mg/dL Normal 8-23 [facility] Comment on above: Performed By: #### C SHARITA ZCBCGR ####MAIN LABCLIA:[id number] [place] [address] BUN/Creatinine Ratio 22.1 mg/mg Normal [facility] Comment on above: Performed By: #### C SHARITA ZCBCGR ####MAIN LABCLIA:[id number] [place] [address] Calcium 7.9 mg/dL Low 8.8-10.2 [facility] Comment on above: Performed By: #### C SHARITA ZCBCGR ####MAIN LABCLIA:[id number] [place] [address] Chloride 101 mmol/L Normal 98-107 [facility] Comment on above: Performed By: #### C SHARITA ZCBCGR ####MAIN LABCLIA:[id number] [place] [address] CO2 24 mmol/L Normal 22-29 [facility] Comment on above: Performed By: #### C AMANDA SHERIFFCGR ####MAIN LABCLIA:[id number] [place] [address] Creatinine 0.77 mg/dL Normal 0.50-0.90 [facility] Comment on above: Performed By: #### C SHARITA ZCBCGR ####MAIN LABCLIA:[id number] [place] [address] eGFR (MDRD) 77 /1.73 m2 Normal >60 mL/min [facility] Comment on above: Result Comment: Norm al RangeStage Description:1 Normal or Increased GFR >=902 Mild Decrease in GFR 60-903 Moderately Decreased GFR 30-594 Severely Decreased GFR 15-295 Kidney Failure <15 Performed By: #### AMANDA RUFFCGR ####MAIN LABCLIA:[id number] [place] [address] Glucose mass conc 89 mg/dL Normal 74-109 [facility] Comment on above: Performed By: #### AMANDA RUFFCGR ####MAIN LABCLIA:[id number] [place] [address] Potassium molar conc 4.4 mmol/L Normal 3.5-5.1 [facility] Comment on above: Performed By: #### Yaquelin RUFFCBCGR ####MAIN LABCLIA:[id number] [place] [address] Sodium 133 mmol/L Low 136-145 [facility] Comment on above: Performed By: #### C AMANDA SHERIFFCGR ####MAIN LABCLIA:[id number] [place] [address] CBC/DIFF GROUPon 01-06-2018 Anisocytosis presence 1+ Normal [facility] Comment on above: Performed By: #### VAMSI RUFFGR ####MAIN LABCLIA:[id number] [place] [address] HYPOCHROMASIA 1+ Normal [facility] Comment on above: Performed By: #### Vladimir SHERIFF ZCBCGR ####MAIN LABCLIA:[id number] [facility] [place] [address] NORMOCHROMIC NO Normal [facility] Comment on above: Performed By: #### C SHARITA, ZCBCGR ####MAIN LABCLIA:[id number] [facility] [place] [address] NORMOCYTIC NO [facility] Comment on above: Performed By: #### C SHARITA ZCBCGR ####MAIN LABCLIA:[id number] [facility] [place] [address] Platelets NORMAL [facility] Comment on above: Performed By: #### C SHARITA ZCBCGR ####MAIN LABCLIA:[id number] [facility] [place] [address] BAND NEUTROPHILS #(MANUAL) 152 /cmm Normal <648 [facility] Comment on above: Performed By: #### C SHARITA ZCBCGR ####MAIN LABCLIA:[id number] [facility] [place] [address] Eosinophils 456 /cmm High <432 [facility] Comment on above: Performed By: #### Vladimir SHERIFF, ZCBCGR ####MAIN LABCLIA:[id number] [facility] [place] [address] Eosinophils/100 leukocytes 6 % High <4 [facility] Comment on above: Performed By: #### Vladimir SHERIFF ZCBCGR ####MAIN LABCLIA:[id number] [facility] [place] [address] Lymphocytes 1748 /cmm Normal 960-4752 [facility] Comment on above: Performed By: #### Vladimir SHERIFF ZCBCGR ####MAIN LABCLIA:[id number] [facility] [place] [address] Lymphocytes/100 leukocytes 23 % Normal 20-44 [facility] Comment on above: Performed By: #### Vladimir SHERIFF ZCBCGR ####MAIN LABCLIA:[id number] [facility] [place] [address] METAMYELOCYTES #(MANUAL) 76 /cmm High 0 [facility] Comment on above: Performed By: #### AMANDA RUFFCGR ####MAIN LABCLIA:[id number] [facility] [place] [address] Metamyelocytes/100 leukocytes 1 % High 0 [facility] Comment on above: Performed By: #### Yaquelin RUFFCBCGR ####MAIN LABCLIA:[id number] [facility] [place] [address] Monocytes 1292 /cmm High 96-972 [facility] Comment on above: Performed By: #### VAMSI RUFFGR ####MAIN LABCLIA:[id number] [facility] [place] [address] Monocytes/100 leukocytes 17 % High 2-9 [facility] Comment on above: Performed By: #### AMANDA RUFFCGR ####MAIN LABCLIA:[id number] [facility] [place] [address] Neutrophils 3876 /cmm Normal 2863-4098 [facility] Comment on above: Performed By: #### AMANDA RUFFCGR ####MAIN LABCLIA:[id number] [place] [address] Neutrophils band/100 leukocytes 2 % Normal <6 [facility] Comment on above: Performed By: #### Yaquelin RUFFCBCGR ####MAIN LABCLIA:[id number] [facility] [place] [address] Neutrophils/100 WBC Auto (Bld) 51 % Normal 50-70 [facility] Comment on above: Performed By: #### VAMSI RUFFGR ####MAIN LABCLIA:[id number] [facility] [place] [address] TOTAL CELLS COUNTED 100 Normal [facility] Comment on above: Performed By: #### VAMSI RUFFGR ####MAIN LABCLIA:[id number] [facility] [place] [address] Erythrocyte distribution width Auto Ratio (RBC) 13.0 % Normal 11.5-14.5 [facility] Comment on above: Performed By: #### C VAMSI SHERIFFGR ####MAIN LABCLIA:[id number] [facility] [place] [address] Erythrocytes (RBC) 3.49 10 6/cmm Low 4.20-5.40 [facility] Comment on above: Performed By: #### C AMANDA SHERIFFCGR ####MAIN LABCLIA:[id number] [facility] [place] [address] Hematocrit (HCT) 29.4 % Low 38.0-47.0 [facility] Comment on above: Performed By: #### C VAMSI SHERIFFGR ####MAIN LABCLIA:[id number] [facility] [place] [address] Hemoglobin mass conc (Bld) 10.1 g/dL Low 12.0-16.4 [facility] Comment on above: Performed By: #### C AMANDA SHERIFFCGR ####MAIN LABCLIA:[id number] [facility] [place] [address] MCH 34.5 g/dL Normal 32.0-36.0 [facility] Comment on above: Performed By: #### C AMANDA SHERIFFCGR ####MAIN LABCLIA:[id number] [place] [address] MCH 29.1 pg Normal 27.0-31.0 [facility] Comment on above: Performed By: #### C Yaquelin SHERIFFCBCGR ####MAIN LABCLIA:[id number] [facility] [place] [address] MCV 84.3 fL Normal 80.0-96.0 [facility] Comment on above: Performed By: #### C AMANDA SHERIFFCGR ####MAIN LABCLIA:[id number] [facility] [place] [address] Platelets 359 10 3/cmm Normal 130-400 [facility] Comment on above: Performed By: #### C VAMSI SHERIFFGR ####MAIN LABCLIA:[id number] [place] [address] WBC (Leukocytes) 7.6 10 3/cmm Normal 4.8-10.8 [facility] Comment on above: Performed By: #### C BC, ZCBCGR ####MAIN LABCLIA:[id number] [place] [address] FREE T4 (FREE THYROXINE)on 0 01-06-2018 Thyroxine (T4) free 2.46 ng/dL High 0.93-1.7 [facility] Comment on above: Performed By: #### C BC, ZCBCGR ####MAIN LABCLIA:[id number] [place] [address] IM Progress Noteon 8 IM Progress Note [address] [place], [place] [address] TANGELA TRINIDAD [id number] Donnell Barton MD 4W / [id number] Report #: [id number] Hospitalist Progress Note Date/Time: 01/06/18805 Report Status: [...] fine and wants to go back to [place]. Her will be driving. - Reviewed laboratory [...] have her follow-up with her physician in [place]. (2) Hyponatremia Status: Improved Plan: Sodium of 133-asymptomatic urine sodium slightly elevated at 35. (3) Essential hypertension Status: Stable (4) Hypothyroidism Plan: Suppressed TSH, her physician from [place] just called her in down dosed her [...] Signed By: Donnell Barton MD Signed Date/Time: 01/06/18 0817 Electronically Cosigned By: Cosigned Date/Time: Normal [facility] T3 FREEon 01-06-2018 Triiodothyronine (T3) free 5.92 pg/mL High 2.0-4.4 [facility] Comment on above: Performed By: #### C VAMSI SHERIFFGR ####MAIN LABCLIA:[id number] [place] [address] CBC/DIFF GROUPon 01-05-2018 NORMOCHROMIC YES Normal [facility] Comment on above: Performed By: #### C AMANDA SHERIFFCGR ####MAIN LABCLIA:[id number] [facility] [place] [address] NORMOCYTIC YES Normal [facility] Comment on above: Performed By: #### C VAMSI SHERIFFGR ####MAIN LABCLIA:[id number] [place] [address] Platelets NORMAL [facility] Comment on above: Performed By: #### C BC, ZCBCGR ####MAIN LABCLIA:[id number] [facility] [place] [address] BAND NEUTROPHILS #(MANUAL) 414 /cmm Normal <648 [facility] Comment on above: Performed By: #### Yaquelin RUFFCBCGR ####MAIN LABCLIA:[id number] [facility] [place] [address] Eosinophils 552 /cmm High <432 [facility] Comment on above: Performed By: #### C Yaquelin SHERIFFCBCGR ####MAIN LABCLIA:[id number] [facility] [place] [address] Eosinophils/100 leukocytes 4 % Normal <4 [facility] Comment on above: Performed By: #### Yaquelin RUFFCBCGR ####MAIN LABCLIA:[id number] [facility] [place] [address] Lymphocytes 690 /cmm Low 960-4752 [facility] Comment on above: Performed By: #### Yaquelin RUFFCBCGR ####MAIN LABCLIA:[id number] [place] [address] Lymphocytes/100 leukocytes 5 % Low 20-44 [facility] Comment on above: Performed By: #### Yaquelin RUFFCBCGR ####MAIN LABCLIA:[id number] [place] [address] Monocytes 1242 /cmm High 96-972 [facility] Comment on above: Performed By: #### Yaquelin RUFFCBCGR ####MAIN LABCLIA:[id number] [facility] [place] [address] Monocytes/100 leukocytes 9 % Normal 2-9 [facility] Comment on above: Performed By: #### Yaquelin RUFFCBCGR ####MAIN LABCLIA:[id number] [facility] [place] [address] Neutrophils 89010 /cmm High 8054-1073 [facility] Comment on above: Performed By: #### Yaquelin RUFFCBCGR ####MAIN LABCLIA:[id number] [facility] [place] [address] Neutrophils band/100 leukocytes 3 % Normal <6 [facility] Comment on above: Performed By: #### C SHARITA ZCBCGR ####MAIN LABCLIA:[id number] [facility] [place] [address] Neutrophils/100 WBC Auto (Bld) 79 % High 50-70 [facility] Comment on above: Performed By: #### Vladimir SHERIFF ZCBCGR ####MAIN LABCLIA:[id number] [place] [address] TOTAL CELLS COUNTED 100 Normal [facility] Comment on above: Performed By: #### C SHARITA ZCBCGR ####MAIN LABCLIA:[id number] [place] [address] Hematocrit (HCT) 36.0 % Low 38.0-47.0 [facility] Comment on above: Performed By: #### Vladimir SHERIFF ZCBCGR ####MAIN LABCLIA:[id number] [place] [address] Hemoglobin mass conc (Bld) 12.2 g/dL Normal 12.0-16.4 [facility] Comment on above: Performed By: #### Yaquelin RUFFCBCGR ####MAIN LABCLIA:[id number] [place] [address] MCH 28.6 pg Normal 27.0-31.0 [facility] Comment on above: Performed By: #### Vladimir SHERIFF ZCBCGR ####MAIN LABCLIA:[id number] [place] [address] MCV 84.1 fL Normal 80.0-96.0 [facility] Comment on above: Performed By: #### C SHARITA ZCBCGR ####MAIN LABCLIA:[id number] [place] [address] WBC (Leukocytes) 13.8 10 3/cmm High 4.8-10.8 [facility] Comment on above: Performed By: #### C SHARITA ZCBCGR ####MAIN LABCLIA:[id number] [place] [address] CHEST 2 VIEWSon 01-05-2018 CHEST [address] [id number]____ Pt Location: 4W/ ADM IN Pt RM#: [id number] MR #: [id number] DATE: 01/05/18 1236 ADM#: [id number] #: [id number] JANET TRINIDADOB: 1940 Age/Sex: 77 / F REPORT STATUS: SignedORDERING PHYSICIAN: STU Slavador/PRIMARY PHYSICIAN: Doctor,No HISTO RY/REASON: CPCLINICAL HISTORY: Dizziness.TECHNICAL FACTORS: 2 view chest submitted without comparison studies.EXAMINATION: CHEST 2 VIEWSFINDINGS: Mild cardiomegaly is seen. Lung venegas are hyperinflated. There istortuosity alongall limbs of the thoracic aorta.Bony structures show mild kyphosis and spondylosis changes.IMPRESSION:1. Mild cardiomegaly.2. No definite infiltrate or effusion.REPORT# [id number] READ BY: Rosaura Pinedo MD 01/05/18 1311FINAL REPORT RELEASED BY: Rosaura Pinedo MD 01/05/18 1808Transcribed Date/Time: 01/05/18 1622 JLECC: ROSY Salvador; Doctor,No; Donnell Barton MD Normal [facility] COMPLETE BLOOD COUNTon 01-05 Erythrocyte distribution width Auto Ratio (RBC) 12.7 % Normal 11.5-14.5 [facility] Comment on above: Performed By: #### C BC, ZCBCGR ####MAIN LABCLIA:[id number] [facility] [place] [address] Erythrocytes (RBC) 4.28 10 6/cmm Normal 4.20-5.40 [facility] Comment on above: Performed By: #### C BC, ZCBCGR ####MAIN LABCLIA:[id number] [facility] [place] [address] MCH 34.0 g/dL Normal 32.0-36.0 [facility] Comment on above: Performed By: #### C BC, ZCBCGR ####MAIN LABCLIA:[id number] [facility] [place] [address] Platelets 423 10 3/cmm High 130-400 [facility] Comment on above: Performed By: #### C BC, ZCBCGR ####MAIN LABCLIA:[id number] [facility] [place] [address] COMPREHENSIVE METABOLIC PANE Umberto 01-05-2018 Alanine aminotransferase (ALT) 15 U/L Normal 0-33 [facility] Comment on above: Performed By: #### C MP, MG ####MAIN LABCLIA:[id number] [facility] [place] [address] Albumin 3.3 g/dL Normal 3.0-4.5 [facility] Comment on above: Performed By: #### C MP, MG ####MAIN LABCLIA:[id number] [place] [address] Albumin/Globulin Ratio 1.2 {ratio} Normal 1-1.4 [facility] Comment on above: Performed By: #### C MP, MG ####MAIN LABCLIA:[id number] [place] [address] Alkaline phosphatase (ALP) 76 U/L Normal 35-104 [facility] Comment on above: Performed By: #### C MP, MG ####MAIN LABCLIA:[id number] [facility] [place] [address] Anion gap 15 mmol/L Normal 9-18 [facility] Comment on above: Performed By: #### C MP, MG ####MAIN LABCLIA:[id number] [facility] [place] [address] Aspartate aminotransferase (AST) 16 U/L Normal 0-32 [facility] Comment on above: Performed By: #### C MP, MG ####MAIN LABCLIA:[id number] [facility] [place] [address] Bilirubin (total) 0.4 mg/dL Normal 0.2-1.2 [facility] Comment on above: Performed By: #### C MP, MG ####MAIN LABCLIA:[id number] [facility] [place] [address] BUN (urea nitrogen) 26 mg/dL High 8-23 [facility] Comment on above: Performed By: #### C MP, MG ####MAIN LABCLIA:[id number] [facility] [place] [address] BUN/Creatinine Ratio 22.2 mg/mg Normal [facility] Comment on above: Performed By: #### C MP, MG ####MAIN LABCLIA:[id number] [facility] [place] [address] Calcium 8.5 mg/dL Low 8.8-10.2 [facility] Comment on above: Performed By: #### C MP, MG ####MAIN LABCLIA:[id number] [facility] [place] [address] Chloride 90 mmol/L Low 98-107 [facility] Comment on above: Performed By: #### C MP, MG ####MAIN LABCLIA:[id number] [facility] [place] [address] CO2 26 mmol/L Normal 22-29 [facility] Comment on above: Performed By: #### C MP, MG ####MAIN LABCLIA:[id number] [facility] [place] [address] Creatinine 1.17 mg/dL High 0.50-0.90 [facility] Comment on above: Performed By: #### C MP, MG ####MAIN LABCLIA:[id number] [place] [address] eGFR (MDRD) 47 /1.73 m2 Low >60 mL/min [facility] Comment on above: Result Comment: Norm al RangeStage Description:1 Normal or Increased GFR >=902 Mild Decrease in GFR 60-903 Moderately Decreased GFR 30-594 Severely Decreased GFR 15-295 Kidney Failure <15 Performed By: #### C MP, MG ####MAIN LABCLIA:[id number] [place] [address] Globulin 2.7 g/dL Normal 2.3-3.5 [facility] Comment on above: Performed By: #### C MP, MG ####MAIN LABCLIA:[id number] [place] [address] Glucose mass conc 136 mg/dL High 74-109 [facility] Comment on above: Performed By: #### C MP, MG ####MAIN LABCLIA:[id number] [place] [address] Potassium molar conc 4.5 mmol/L Normal 3.5-5.1 [facility] Comment on above: Performed By: #### C MP, MG ####MAIN LABCLIA:[id number] [place] [address] Protein 6.0 g/dL Low 6.4-8.3 [facility] Comment on above: Performed By: #### C MP, MG ####MAIN LABCLIA:[id number] [facility] [address] Sodium 126 mmol/L Low 136-145 [facility] Comment on above: Performed By: #### C MP, MG ####MAIN LABCLIA:[id number] [facility] [place] [address] CT HEAD WOon 01-05-2018 CT HEAD WO [address] [phone]____ Pt Location: 4W/ ADM IN Pt RM#: [id number] MR #: [id number] DATE: 01/05/18 1236 ADM#: [id number] #: [id number] JANET TRINIDADOB: 1940 Age/Sex: 77 / F REPORT STATUS: SignedORDERING PHYSICIAN: STU Salvador/PRIMARY PHYSICIAN: Doctor,Umm HISTO RY/REASON: Dizziness, near syncopeCLINICAL HISTORY: Syncope.TECHNICAL FACTORS: Axial views were obtained at 5 mm intervals through the head without IVcontrast.Individual ized dose optimization techniques were used for this [...] cells are clear. The visualized orbits appear normal.IMPRESSION:Chr onic microvascular ischemic changes in the periventricular white matter.REPORT# [id number] READ BY: Cielo Pacheco M.D. [id number] REPORT RELEASED BY: Cielo Pacheco M.D. 01/05/18 1502Transcribed Date/Time: 01/05/18 1339 PLPCC: ROSY Salvador; Doctor,No; Donnell Barton MD [facility] Emergency Room Visit Reporto n 01-05-2018 Emergency Room Visit Report [address] [address] TANGELA TRINIDAD 1940 (77 F) [id number] Helio Hoang 4W Report #: [id number] PCP: No Doctor Emergency Room Visit Report [...] reports feeling dizziness and near syncope at [facility]. Pt reports recent bronchitis that she was [...] Allergy Mild Rash Verified 01/05/18 12:40 Antibiotics) Brmeplb-Jwr-Vxe Reductase Allergy Unknown Verified 01/05/18 12:40 Inhibitor [...] PO BID 01/05/18 01/05/18 raNITIdine HCl [Acid Stock Shipper] 150 mg PO BID 01/05/18 01/05/18 ROS [...] % (Manual) (<4) % Neutrophils # (Manual) (4125-1630) /cmm Band Neutrophils # (<648) /cmm Lymphocytes [...] Appearance Clear Urine pH 7.0 Ur Specific Saunemin <=1.005 Urine Protein Negative (NEGATIVE) Urine Glucose [...] (Manual) 4 (<4) % Neutrophils # (Manual) 97491 H (1055-4906) /cmm Band Neutrophils # 414 (<648) /cmm [...] Color Urine Appearance Urine pH Ur Specific Saunemin Urine Protein (NEGATIVE) Urine Glucose (UA) (NEGATIVE) [...] [ECG] Stat Cardiology 01/05/18 12:27 Completed VTE Prophylaxis-Documenta tion Routine Care 01/05/18 16:08 Ordered Low Sodium [...] Routine Ca 01/05/18 16:08 Active PARI Talavera, Thigh CONTIN Routine Ca 01/05/18 16:08 Active Telemetry [...] an inhaler. This was obtained by the [facility] pharmacy in [facility]. 01/05/18 14:40 I discussed this patient with [...] Observation Electronically Signed By: ROSY Salvador 01/05/18 1638 Sohan Grover MD 01/05/181904 I was personally available for consultation in the ED, but I did not see the patient. Electronically Cosigned By: Sohan Grover MD Cosigned Date/Time: 01/05/181904 [facility] History & Physicalon 018 History & Physical [address] [id number] TANGELA TRINIDAD [id number] Donnell Barton MD 4W / [id number] 1940 Report #: [id number] Admission Date: 01/05/18 History Physical Date/Time: 01/05/18 1530 Report Status: Signed HPI Date Seen: 01/05/18 Time Seen: 15:30 Seen By: Donnell Barton Reason for Visit: CP Ms. TRINIDAD is a 77 year old female with a past medical history of essential hypertension, hypothyroidism, and GERD, and recently treated for a upper respiratory infection with prednisone and doxycycline presents with a presyncopal episode. Patient is visiting this area from [place] in [place] [...] asymptomatic. Evaluation emergency room consisted of a lunchroom monitor which shows normal sinus rhythm, EKG shows [...] Allergy Mild Rash Verified 01/05/18 12:40 Antibiotics) Ocwnoms-Ali-Dae Reductase Allergy Unknown Verified 01/05/18 12:40 Inhibitor [...] PO BID 01/05/18 01/05/18 raNITIdine HCl [Acid Stock Shipper] 150 mg PO BID 01/05/18 01/05/18 Allergies [...] reported, headache, confusion Psychiatric: no symptoms reported Hematological/Lymphat ic: no symptoms reported Exam Height: 5 ft [...] By: Donnell Barton MD Signed Date/Time: 01/05/18 7110 Electronically Cosigned By: Cosigned [facility] Magnesium 2.1 mg/dL Normal 1.6-2.6 [facility] Comment on above: Performed By: #### C MP, MG ####MAIN LABCLIA:[id number] [place] [address] SODIUM,URINE RANDOMon 2017 SODIUM,URINE RANDOM 35 mmol/L Normal [facility] Comment on above: Order Comment: COLLE CTED BY: Sherine Tenorio Result Comment: The reference range has not been established for this test. Performed By: #### C BC, ZCBCGR ####MAIN LABCLIA:[id number] [place] [address] THYROID STIMULATING HORMONEo n 01-05-2018 Thyroid stimulating hormone (TSH) 0.16 uIU/mL Low 0.27-4.20 [facility] Comment on above: Performed By: #### C BC, ZCBCGR ####MAIN LABCLIA:[id number] [place] [address] TROPONIN Ton 01-05-2018 Troponin T.cardiac mass conc ug/L Normal <0.010 [facility] Comment on above: Result Comment: Valu es [...] Performed By: #### C BC, ZCBCGR ####MAIN LABCLIA:[id number] [place] [address] Troponin T.cardiac mass conc ug/L Normal <0.010 [facility] Comment on above: Result Comment: Valu es [...] hours. Performed By: #### T ROPT ####MAIN LABCLIA:[id number] [place] [address] URINALYSISon 01-05-2018 UA APPEARANCE CLEAR Normal [facility] Comment on above: Order Comment: COLLE CTED BY: davedVOID-MIDSTREAM Performed By: #### U A ####MAIN LABCLIA:[id number] [facility] [place] [address] UA BACTERIA NONE Normal NONE [facility] Comment on above: Order Comment: COLLE CTED BY: Tye acostaOID-MIDSTREAM Performed By: #### U A ####MAIN LABCLIA:[id number] [facility] [place] [address] UA SQUAMOUS EPITHELIAL 0-2 Normal [facility] Comment on above: Order Comment: COLLE CTED BY: Tye acostaOID-MIDSTREAM Performed By: #### U A ####MAIN LABCLIA:[id number] [facility] [place] [address] UA WBC 0-2 Normal 0-2 [facility] Comment on above: Order Comment: COLLE CTED BY: Tye acostaOID-MIDSTREAM Performed By: #### U A ####MAIN LABCLIA:[id number] [facility] [place] [address] Urine, color YELLOW Normal [facility] Comment on above: Order Comment: COLLE CTED BY: Tye acostaOID-MIDSTREAM Performed By: #### U A ####MAIN LABCLIA:[id number] [facility] [place] [address] Urine, erythrocytes 0-2 Normal 02 [facility] Comment on above: Order Comment: COLLE CTED BY: Tye acostaOID-MIDSTREAM Performed By: #### U A ####MAIN LABCLIA:[id number] [facility] [place] [address] UA BILIRUBIN Negative Normal NEGATIVE [facility] Comment on above: Order Comment: COLLE CTED BY: Tye acostaOID-MIDSTREAM Performed By: #### U A ####MAIN LABCLIA:[id number] [place] [address] UA BLOOD Negative Normal NEGATIVE [facility] Comment on above: Order Comment: COLLE CTED BY: Tye acostaOID-MIDSTREAM Performed By: #### U A ####MAIN LABCLIA:[id number] [place] [address] UA LEUKOCYTE ESTERASE TRACE Normal NEGATIVE [facility] Comment on above: Order Comment: COLLE CTED BY: Tye acostaOID-MIDSTREAM Performed By: #### U A ####MAIN LABCLIA:[id number] [place] [address] UA NITRITES Negative Normal NEGATIVE [facility] Comment on above: Order Comment: COLLE CTED BY: Tye acostaOID-MIDSTREAM Performed By: #### U A ####MAIN LABCLIA:[id number] [place] [address] UA PH 7.0 Normal [facility] Comment on above: Order Comment: COLLE CTED BY: Tye acostaOID-MIDSTREAM Performed By: #### U A ####MAIN LABCLIA:[id number] [place] [address] UA PROTEIN Negative Normal NEGATIVE [facility] Comment on above: Order Comment: COLLE CTED BY: Tye acostaOID-MIDSTREAM Performed By: #### U A ####MAIN LABCLIA:[id number] [place] [address] UA SPECIFIC GRAVITY <=1.005 Normal [facility] Comment on above: Order Comment: COLLE CTED BY: Tye acostaOID-MIDSTREAM Performed By: #### U A ####MAIN LABCLIA:[id number] [place] [address] UA UROBILINOGEN 0.2 mg/dL Normal 0.0-1.0 [facility] Comment on above: Order Comment: COLLE CTED BY: davedVOID-MIDSTREAM Performed By: #### U A ####MAIN LABCLIA:[id number] [facility] [place] [address] Urine, glucose Negative Normal NEGATIVE [facility] Comment on above: Order Comment: COLLE CTED BY: davedVOID-MIDSTREAM Performed By: #### U A ####MAIN LABCLIA:[id number] [facility] [place] [address] Urine, ketones presence Negative Normal NEGATIVE [facility] Comment on above: Order Comment: COLLE CTED BY: davedVOID-MIDSTREAM Performed By: #### U A ####MAIN LABCLIA:[id number] [facility] [place] [address] URINE SOURCE VOID-MIDSTREAM Normal [facility] Comment on above: Order Comment: COLLE CTED BY: davedVOID-MIDSTREAM Performed By: #### U A ####MAIN LABCLIA:[id number] [place] [address] VASCULAR RISK PANELon 2017 Cholesterol 180 mg/dL Normal 0-199 [facility] Comment on above: Order Comment: Comme nts: Use blood from ED if available Performed By: #### C BC, ZCBCGR ####MAIN LABCLIA:[id number] [place] [address] HDL Cholesterol 42 mg/dL Low >65 [facility] Comment on above: Order Comment: Comme nts: Use blood from ED if available Performed By: #### C BC, ZCBCGR ####MAIN LABCLIA:[id number] [place] [address] LDL Cholesterol 98 mg/dL Normal <129 [facility] Comment on above: Order Comment: Comme nts: Use blood from ED if available Performed By: #### C BC, ZCBCGR ####MAIN LABCLIA:[id number] [place] [address] Triglyceride 202 mg/dL High 0-199 [facility] Comment on above: Order Comment: Comme nts: Use blood from ED if available Performed By: #### C BC, ZCBCGR ####MAIN LABCLIA:[id number] [place] [address] VLDL CHOLESTEROL 40 mg/dL Normal 5-40 [facility] Comment on above: Order Comment: Comme nts: Use blood from ED if available Performed By: #### C BC, ZCBCGR ####MAIN LABCLIA:[id number] [place] [address] Vital Signs Date Time Vital Sign Value Performing Clinician Facility 05-27-2023 11:00-0500 Body height 152.4 cm Kvng Ball Other [facility] Other 05-27-2023 11:00-0500 Diastolic blood pressure 84 mm[Hg] Kvng Ball Other [facility] Other 05-27-2023 11:00-0500 Systolic blood pressure 124 mm[Hg] Kvng Ball Other [facility] Other 03-04-2023 13:45-0400 Body height 152.4 cm Kvng Ball Other [facility] Other 03-04-2023 13:45-0400 Body mass index (BMI) [Ratio] 28.47 kg/m2 Kvng Ball Other [facility] Other 03-04-2023 13:45-0400 Body weight 66.13 kg Kvng Ball Other [facility] Other 03-04-2023 13:45-0400 Diastolic blood pressure 80 mm[Hg] Kvng Ball Other [facility] Other 03-04-2023 13:45-0400 Respiratory rate 12 /min Kvng Ball Other [facility] Other 03-04-2023 13:45-0400 Systolic blood pressure 117 mm[Hg] Kvng Ball Other [facility] Other 02-22-2023 11:00-0400 Body height 152.4 cm Kvng Ball Other [facility] Other 02-22-2023 11:00-0400 Body mass index (BMI) [Ratio] 28.39 kg/m2 Kvng Ball Other [facility] Other 02-22-2023 11:00-0400 Body weight 65.95 kg Kvng Ball Other [facility] Other 02-22-2023 11:00-0400 Diastolic blood pressure 83 mm[Hg] Kvng Ball Other [employer] Other 02-22-2023 11:00-0400 Respiratory rate 12 /min Kvng Ball Other [facility] Other 02-22-2023 11:00-0400 Systolic blood pressure 132 mm[Hg] Kvng Ball Other [facility] Other 01-24-2023 09:18-0400 Diastolic blood pressure 72 mm[Hg] DO Kvng Ball Work Phone: [facility] 01-24-2023 09:18-0400 Heart rate 56 /min DO Kvng Ball Work Phone: [facility] 01-24-2023 09:18-0400 Respiratory rate 14 /min DO Kvng Ball Work Phone: [facility] 01-24-2023 09:18-0400 SaO2% (BldA) [Mass fraction] 98 % DO Kvng Ball Work Phone: [facility] 01-24-2023 09:18-0400 Systolic blood pressure 126 mm[Hg] DO Kvng Ball Work Phone: [facility] 01-24-2023 07:44-0400 Body height 154.94 cm DO Kvng Ball Work Phone: [facility] 01-24-2023 07:44-0400 Body temperature 97.8 [degF] DO Kvng Ball Work Phone: [facility] 01-24-2023 07:44-0400 Body weight 65.31 kg DO Kvng Ball Work Phone: [facility] 11-18-2022 12:00-0400 Body height 152.4 cm Kvng Ball Other [facility] Other 11-18-2022 12:00-0400 Body mass index (BMI) [Ratio] 28.74 kg/m2 Kvng Ball Other [facility] Other 11-18-2022 12:00-0400 Body weight 66.77 kg Kvng Ball Other [facility] Other 11-18-2022 12:00-0400 Diastolic blood pressure 82 mm[Hg] Kvng Ball Other [facility] Other 11-18-2022 12:00-0400 Respiratory rate 12 /min Kvng Ball Other [facility] Other 11-18-2022 12:00-0400 Systolic blood pressure 125 mm[Hg] Kvng Ball Other [facility] Other 10-28-2022 14:05-0400 Diastolic blood pressure 73 mm[Hg] DO Kvng Ball Work Phone: [facility] 10-28-2022 14:05-0400 Heart rate 60 /min DO Kvng Ball Work Phone: [facility] 10-28-2022 14:05-0400 Respiratory rate 18 /min DO Kvng Ball Work Phone: [facility] 10-28-2022 14:05-0400 SaO2% (BldA) [Mass fraction] 96 % DO Kvng Ball Work Phone: [facility] 10-28-2022 14:05-0400 Systolic blood pressure 117 mm[Hg] DO Kvng Ball Work Phone: [facility] 10-28-2022 11:42-0400 Body height 154.94 cm DO Kvng Ball Work Phone: [facility] 10-28-2022 11:42-0400 Body temperature 97.9 [degF] DO Kvng Ball Work Phone: [facility] 10-28-2022 11:42-0400 Body weight 65.77 kg DO Kvng Ball Work Phone: [facility] 10-12-2022 15:00-0400 Body height 152.4 cm Kvng Ball Other [facility] Other 10-12-2022 15:00-0400 Body mass index (BMI) [Ratio] 28.78 kg/m2 Kvng Ball Other [facility] Other 10-12-2022 15:00-0400 Body weight 66.86 kg Kvng Ball Other [employer] Other 10-12-2022 15:00-0400 Diastolic blood pressure 80 mm[Hg] Kvng Ball Other [facility] Other 10-12-2022 15:00-0400 Respiratory rate 12 /min Kvng Ball Other [facility] Other 10-12-2022 15:00-0400 Systolic blood pressure 116 mm[Hg] Kvng Ball Other [employer] Other 07-27-2022 14:38-0500 Body height 152.4 cm Mavis Santiago MD Work Phone: [facility] 07-27-2022 14:38-0500 Body temperature 98.1 [degF] Mavis Santiago MD Work Phone: [facility] 07-27-2022 14:38-0500 Body weight 66.5 kg Mavis Santiago MD Work Phone: [facility] 07-27-2022 14:38-0500 Diastolic blood pressure 72 mm[Hg] Mavis Santiago MD Work Phone: [facility] 07-27-2022 14:38-0500 Heart rate 64 /min Mavis Santiago MD Work Phone: [facility] 07-27-2022 14:38-0500 Respiratory rate 16 /min Mavis Santiago MD Work Phone: [facility] 07-27-2022 14:38-0500 SaO2% (BldA) [Mass fraction] 97 % Mavis Santiago MD Work Phone: [facility] 07-27-2022 14:38-0500 Systolic blood pressure 125 mm[Hg] Mavis Santiago MD Work Phone: [facility] 07-26-2022 09:19-0500 Diastolic blood pressure 69 mm[Hg] DO Kvng Ball Work Phone: [facility] 07-26-2022 09:19-0500 Heart rate 59 /min DO Kvng Ball Work Phone: [facility] 07-26-2022 09:19-0500 Respiratory rate 16 /min DO Kvng Ball Work Phone: [facility] 07-26-2022 09:19-0500 SaO2% (BldA) [Mass fraction] 98 % DO Kvng Ball Work Phone: [facility] 07-26-2022 09:19-0500 Systolic blood pressure 111 mm[Hg] DO Kvng Ball Work Phone: [facility] 07-26-2022 07:19-0500 Body height 154.94 cm DO Kvng Ball Work Phone: [facility] 07-26-2022 07:19-0500 Body temperature 97.7 [degF] DO Kvng Ball Work Phone: [facility] 07-26-2022 07:19-0500 Body weight 66.22 kg DO Kvng Ball Work Phone: [facility] 07-21-2022 14:30-0500 Body height 152.4 cm Kvng Ball Other [facility] [employer] Other 07-21-2022 14:30-0500 Body mass index (BMI) [Ratio] 28.82 kg/m2 Kvng Ball Other [facility] Other 07-21-2022 14:30-0500 Body weight 66.95 kg Kvng Ball Other [facility] Other 07-21-2022 14:30-0500 Diastolic blood pressure 70 mm[Hg] Kvng Ball Other [facility] Other 07-21-2022 14:30-0500 Respiratory rate 12 /min Kvng Ball Other [facility] Other 07-21-2022 14:30-0500 Systolic blood pressure 118 mm[Hg] Kvng Ball Other [facility] [employer] Other 05-25-2022 13:02-0500 Body temperature 96.91 [degF] Chair Grady Work Phone: [facility] 05-25-2022 13:02-0500 Diastolic blood pressure 88 mm[Hg] Chair Grady Work Phone: [facility] 05-25-2022 13:02-0500 Heart rate 68 /min Chair Grady Work Phone: [facility] 05-25-2022 13:02-0500 Respiratory rate 18 /min Chair Ryan Work Phone: [facility] 05-25-2022 13:02-0500 SaO2% (BldA) [Mass fraction] 100 % Chair Ryan Work Phone: [facility] 05-25-2022 13:02-0500 Systolic blood pressure 146 mm[Hg] Chair Ryan Work Phone: [facility] 05-18-2022 15:42-0500 Body temperature 98.1 [degF] Mavis Santiago MD Work Phone: [facility] 05-18-2022 15:42-0500 Body weight 68.04 kg Mavis Santiago MD Work Phone: [facility] 05-18-2022 15:42-0500 Diastolic blood pressure 78 mm[Hg] Mavis Santiago MD Work Phone: [facility] 05-18-2022 15:42-0500 Heart rate 78 /min Mavis Santiago MD Work Phone: [facility] 05-18-2022 15:42-0500 Respiratory rate 16 /min Mavis Santiago MD Work Phone: [facility] 05-18-2022 15:42-0500 SaO2% (BldA) [Mass fraction] 98 % Mavis Santiago MD Work Phone: [facility] 05-18-2022 15:42-0500 Systolic blood pressure 122 mm[Hg] Mavis Santiago MD Work Phone: [facility] Encounters Encounter Date Encounter Type Care Provider Facility Start: 08-10-2023 End: 08-10-2023 ambulatory Imad Asaad Other [facility] Other Start: 08-10-2023 Office outpatient vi sit 25 minutes Imad Asaad [facility] Start: 08-01-2023 End: 08-01-2023 ambulatory Kvng Melgar Other [facility] Other Start: 08-01-2023 Telephone encounter Kvng Melgar [facility] Start: 07-25-2023 End: 07-25-2023 ambulatory Imad Asaad Facility:[facility] Start: 07-25-2023 End: 07-25-2023 ambulatory DO Kvng Ball Work Phone: [facility] Work Phone: Start: 07-25-2023 End: 07-25-2023 Patient encounter procedure DO Kvng Ball Work Phone: [facility] [place] Work Phone: Start: 07-06-2023 End: 07-06-2023 ambulatory Imad Asaad Other [facility] Other Start: 07-06-2023 Telephone encounter Imad Asaad [facility] Start: 06-20-2023 End: 06-20-2023 ambulatory Kvng Melgar Other [facility] Other Start: 06-20-2023 Telephone encounter Kvng Melgar [facility] Start: 06-15-2023 End: 06-15-2023 ambulatory Kvng Melgar Other [facility] Other Start: 06-15-2023 Telephone encounter Kvng Melgar [facility] Start: 06-08-2023 End: 06-08-2023 ambulatory Kvng Melgar Other [facility] [employer] Other Start: 06-08-2023 Telephone encounter Kvng Ball [facility] Start: 05-31-2023 End: 05-31-2023 ambulatory Kvng Ball Other [facility] Other Start: 05-31-2023 Telephone encounter Kvng Melgar [facility] Start: 05-29-2023 End: 05-29-2023 ambulatory Kvng Melgar Other [facility] Other Start: 05-29-2023 Telephone encounter Kvng Melgar [facility] Start: 05-28-2023 End: 05-28-2023 ambulatory Kvng Melgar Other [facility] Other Start: 05-28-2023 Telephone encounter Kvng Melgar FP [facility] Start: 05-27-2023 End: 05-27-2023 ambulatory Kvng Melgar Other [facility] Other Start: 05-27-2023 Office outpatient vi sit 25 minutes Kvng Melgar [facility] Start: 05-25-2023 End: 05-25-2023 ambulatory Kvng Melgar Other [facility] [employer] [employer] Other Start: 05-25-2023 Telephone encounter Kvng Melgar FP [facility] Start: 05-20-2023 End: 05-20-2023 ambulatory Kvng Melgar Other [facility] Other Start: 05-20-2023 Telephone encounter Kvng Melgar FP [facility] Start: 05-10-2023 End: 05-10-2023 ambulatory Imad Asaad Other [facility] Other Start: 05-10-2023 Telephone encounter Imad Asaad [facility] Start: 04-26-2023 End: 04-26-2023 ambulatory Kvng Melgar Other [facility] Other Start: 04-26-2023 Nursing evaluation o f patient and report Kvng Melgar [facility] Start: 03-23-2023 End: 03-23-2023 ambulatory Imad Asaad Other [facility] Other Start: 03-23-2023 Telephone encounter Imad Asaad [facility] Start: 03-10-2023 End: 03-10-2023 ambulatory Kvng Ball Other [facility] Other Start: 03-10-2023 Telephone encounter Kvng Ball [facility] Start: 03-07-2023 End: 03-07-2023 ambulatory Kvng Ball Other [employer] Other Start: 03-07-2023 Telephone encounter Kvng Ball [facility] Start: 03-04-2023 End: 03-04-2023 ambulatory Kvng Ball Other [facility] [employer] Other Start: 03-04-2023 Office outpatient vi sit 15 minutes Kvng Ball [facility] Start: 02-28-2023 End: 02-28-2023 ambulatory Kvng Ball Other [facility] Other Start: 02-28-2023 Telephone encounter Kvng Ball [facility] Start: 02-22-2023 End: 02-22-2023 ambulatory Kvng Ball Other [employer] [facility] Other Start: 02-22-2023 Office outpatient vi sit 25 minutes Kvng Ball [facility] Start: 02-21-2023 End: 02-21-2023 ambulatory Kvng Ball Other [facility] Other Start: 02-21-2023 Telephone encounter Kvng Ball [facility] Start: 01-24-2023 Telephone encounter Sadiq Pollard [facility] Start: 01-24-2023 End: 01-24-2023 ambulatory Imad [employer] Other Start: 01-24-2023 End: 01-24-2023 Admission to same day surgery center DO Kvng Ball Work Phone: [facility] Work Phone: Start: 12-28-2022 End: 12-28-2022 ambulatory Kvng Ball Other [employer] [employer] Other Start: 12-28-2022 Telephone encounter Kvng Armstrong [facility] Start: 11-19-2022 End: 11-19-2022 ambulatory Kvng Melgar Other [facility] Other Start: 11-19-2022 Telephone encounter Kvng Armstrong [facility] Start: 11-18-2022 End: 11-18-2022 ambulatory Kvng Melgar Other [facility] Other Start: 11-18-2022 Patient encounter procedure Kvng ROSARIO [facility] Start: 11-01-2022 End: 11-01-2022 ambulatory Imad Asaad Other [employer] [facility] Other Start: 11-01-2022 Telephone encounter Imad Asaad [facility] Start: 10-28-2022 Telephone encounter Sadiq Pollard [facility] Start: 10-28-2022 End: 10-28-2022 ambulatory Imad Asaad Facility:[facility] Start: 10-28-2022 End: 10-28-2022 Admission to same day surgery center DO Kvng Ermelinda Work Phone: [facility] Work Phone: Start: 10-28-2022 End: 10-28-2022 ambulatory DO Kvng Melgar Work Phone: [facility] Work Phone: Start: 10-21-2022 End: 10-21-2022 ambulatory Kvng Melgar Other [employer] Other Start: 10-21-2022 Telephone encounter Kvng [facility] Start: 10-20-2022 End: 10-21-[address] KVNG MELGAR Facility: Start: 10-12-2022 End: 10-12-2022 ambulatory Kvng Melgar Other [employer] Other Start: 10-12-2022 Office outpatient vi sit 15 minutes Kvng Melgar [facility] Start: 10-12-2022 Telephone encounter Kvng Armstrong [employer] Start: 09-27-2022 End: 10-13-[address] KVNG MELGAR Facility: Start: 07-29-2022 End: 07-29-2022 ambulatory Kvng Melgar Other [employer] Other Start: 07-29-2022 Telephone encounter [facility] Start: 07-27-2022 End: 07-27-2022 ambulatory KVNG MELGAR Facility:[facility] Start: 07-27-2022 End: 07-27-2022 Office outpatient visit 15 minutes Mavis Santiago MD Work Phone: Hematology/Oncology Comment on above: Iron deficiency (Danielle bethany Dx) Start: 07-26-2022 Telephone encounter Imad Asaad [facility] Start: 07-26-2022 End: 07-26-2022 Admission to same day surgery center DO Kvng Ermelinda Work Phone: [facility] Work Phone: Start: 07-26-2022 End: 07-26-2022 ambulatory DO Kvng Ermelinda Work Phone: [facility] Work Phone: Start: 07-22-2022 End: 07-22-2022 Patient encounter procedure DO Kvng Ermelinda Work Phone: [facility] Work Phone: Start: 07-21-2022 End: 07-21-2022 ambulatory Kvng Melgar Other [employer] Other Start: 07-21-2022 Office outpatient vi sit 25 minutes Kvng Melgar [facility] Start: 06-02-2022 Social Work Marcia Ramires INTEGRATION ANALYST Hematolo gy/Oncology Start: 05-25-2022 Telephone encounter Financial [...] Start: 05-18-2022 Telephone encounter Adebayo RODRIGES G [employer] Start: 05-17-2022 Chart abstracting Mavis abraham MD [...] 06-09-2021 Adult health examination Fab Melgar Other [employer] Other Start: 08-02-2019 Preoperative cardiovascular examination Kvng Melgar Other [employer] Other Start: 05-31-2019 Gynecological examination normal Kvng Melgar Other [employer] Other Start: 01-05-2018 End: 01-06-2018 Evaluation and management of inpatient No Doctor Facility:[facility] Procedures Date Procedure Procedure Detail Performing Clinician Start: 07-25-2023 Radionuclide gastric emptying study DO Yolanda Melgar Work Phone: Start: 01-24-2023 Esophagogastroduodenoscopy DO Kvng Guerrero all Work Phone: Start: 10-28-2022 Esophagogastroduodenoscopy DO Kvng Guerrero all Work Phone: Start: 07-26-2022 Esophagogastroduodenoscopy DO Kvng Guerrero all Work Phone: Start: 07-22-2022 SARS Antigen (LFIA) DO Kvng Melgar Work Phone: Depression screening Adebayo Juan Rlashonda Other Depression screening Aidee Melgar Other Screening for malign ant neoplasm of breast Adebayo Pan Other Screening for malign ant neoplasm of breast Kvng Melgar Other Plan of Treatment Date Care Activity Detail Author Start: 01-24-2023 End: 03-26-2023 CBC W Auto Differential panel - Blood CBC + DIFF Lab Routine Iron deficiency Expected: 01/24/2023 (Approximate), Expires: 03/26/2023 [facility] Work Phone: Comment on above: Expected: 01/24/2023 (Approximate), Expires: 03/26/2023 Start: 01-24-2023 End: 07-27-2023 Ferritin [Mass/volume] in Serum or Plasma FERRITIN BLD Lab Routine Iron deficiency Expected: 01/24/2023 (Approximate), Expires: 07/27/2023 [facility] Work Phone: Comment on above: Expected: 01/24/2023 (Approximate), Expires: 07/27/2023 Start: 01-24-2023 End: 07-27-2023 Iron and Iron binding capacity panel - Serum or Plasma IRON + TIBC Lab Routine Iron deficiency Expected: 01/24/2023 (Approximate), Expires: 07/27/2023 [facility] Work Phone: Comment on above: Expected: 01/24/2023 (Approximate), Expires: 07/27/2023 Start: 01-24-2023 [facility] Start: 10-28-2022 [facility] Start: 07-27-2022 End: 09-26-2022 CBC W Auto Differential panel - Blood CBC + DIFF Lab Routine Iron deficiency Expected: 07/27/2022 (Approximate), Expires: 09/26/2022 [facility] Work Phone: Comment on above: Expected: 07/27/2022 (Approximate), Expires: 09/26/2022 Start: 07-27-2022 End: 05-18-2023 Ferritin [Mass/volume] in Serum or Plasma FERRITIN BLD Lab Routine Iron deficiency Expected: 07/27/2022 (Approximate), Expires: 05/18/2023 [facility] Work Phone: Comment on above: Expected: 07/27/2022 (Approximate), Expires: 05/18/2023 Start: 07-27-2022 End: 05-18-2023 Iron and Iron binding capacity panel - Serum or Plasma IRON + TIBC Lab Routine Iron deficiency Expected: 07/27/2022 (Approximate), Expires: 05/18/2023 [facility] Work Phone: Comment on above: Expected: 07/27/2022 (Approximate), Expires: 05/18/2023 Start: 07-27-2022 End: 09-26-2022 RETIC COUNT RETIC COUNT Lab Routine Iron deficiency Expected: 07/27/2022 (Approximate), Expires: 09/26/2022 [facility] Work Phone: Comment on above: Expected: 07/27/2022 (Approximate), Expires: 09/26/2022 Start: 07-26-2022 [facility] Start: 07-11-2022 ADVANCE DIRECTIVE DISCUSSION ADVANCE DIRECTIVE DISCUSSION [facility] Start: 07-11-2022 DEPRESSION ASSESSMENT DEPRESSION ASS ESSMENT [facility] Start: 03-11-2022 Influenza vaccination INFLUENZA (#1) [facility] Start: 01-30-2022 COVID-19 VACCINE (5 - Booster for Pfizer series) COVID-19 VACCINE (5 - Booster for Pfizer series) [facility] Start: 07-11-2021 ADVANCE DIRECTIVE DISCUSSION ADVANCE DIRECTIVE DISCUSSION [facility] Start: 07-11-2021 DEPRESSION ASSESSMENT DEPRESSION ASS ESSMENT [facility] Start: 03-29-2019 PNEUMOCOCCAL: 65+ (2 - PCV) PNEUMOCOCCAL: 65+ (2 - PCV) [facility] Start: 11-15-2017 DIABETES SCREEN DIABETES SCREEN [facility] Start: 04-23-2016 PNEUMOCOCCAL: 65+ (2 - PCV) PNEUMOCOCCAL: 65+ (2 - PCV) [facility] Start: 2003 BONE DENSITY BONE DENSITY [facility] Start: 01-22-1988 SHINGRIX VACCINE (1 of 2) SHINGRIX VACCINE (1 of 2) [facility] Start: 1957 Urine microalbumin profile DTAP,TDAP,TD (1 - Tdap) [facility] Start: 1940 COVID-19 VACCINE (#1) COVID-19 VACCI NE (#1) [facility] Patient Education [facility] Work Phone: [facility] Immunizations Immunization Date Immunization Notes Care Provider Fa [facility] 04-26-2023 influenza, high dose seasonal, preservative-free Kvng Melgar Other [employer] Other 10-19-2022 COVID-19 Pfizer (bivalent) Kvng Melgar Other [facility] [employer] Other 12-05-2021 COVID-19 Pfizer Kvng mac Other [facility] [employer] Other 12-05-2021 COVID-19 Vaccine Pfi zer - Documentation Purposes Only Kvng Melgar Other [employer] Other 04-14-2021 COVID-19 Vaccine Pfi zer - Documentation Purposes Only Kvng Melgar Other [employer] Other 04-06-2021 influenza virus vaccine, split virus (incl. purified surface antigen) Kvng Melgar Other [employer] Other 04-06-2021 influenza, high-dose , quadrivalent vaccine (FLUZONE HIGH DOSE QUADRIVALENT) Mavis Santiago MD Work Phone: [facility] 08-27-2020 COVID-19 Vaccine Pfi zer - Documentation Purposes Only Kvng Melgar Other [employer] Other 08-04-2020 COVID-19 Vaccine Pfi zer - Documentation Purposes Only Kvng Melgar Other [employer] Other 04-04-2020 influenza virus vaccine, split virus (incl. purified surface antigen) Kvng Melgar Other [employer] Other 04-04-2020 influenza, high-dose , quadrivalent vaccine (FLUZONE HIGH DOSE QUADRIVALENT) Mavis Santiago MD Work Phone: [facility] 04-18-2019 influenza, injectabl e, quadrivalent, preservative free Mavis Santiago MD Work Phone: [facility] 03-22-2019 Seasonal trivalent influenza vaccine, adjuvanted, preservative free Mavis Santiago MD Work Phone: [facility] 04-13-2018 influenza virus vaccine, split virus (incl. purified surface antigen) Kvng Melgar Other [facility] [employer] Other 04-13-2018 Seasonal trivalent influenza vaccine, adjuvanted, preservative free Mavis Santiago MD Work Phone: [facility] 03-29-2018 pneumococcal polysaccharide vaccine, 23 valent Mavis Santiago MD Work Phone: [facility] 05-25-2017 Seasonal trivalent influenza vaccine, adjuvanted, preservative free Mavis Santiago MD Work Phone: [facility] 04-27-2016 influenza virus vaccine, split virus (incl. purified surface antigen) Kvng Melgar Other [facility] [employer] Other 04-27-2016 influenza, high dose seasonal, preservative-free Mavis Santiago MD Work Phone: [facility] 04-23-2015 influenza, injectabl e, quadrivalent, preservative free Mavis Santiago MD Work Phone: [facility] 04-23-2015 pneumococcal polysaccharide vaccine, 23 valent Mavis Santiago MD Work Phone: [facility] 04-18-2015 influenza virus vaccine, split virus (incl. purified surface antigen) Kvng Melgar Other [facility] [employer] Other 04-18-2015 pneumococcal conjuga te vaccine, 13 valent Kvng Melgar Other [facility] [employer] Other 05-21-2014 influenza, injectabl e, quadrivalent, contains preservative Adebayo Pan Other [facility] [employer] Other 04-26-2014 tetanus and diphther ia toxoids, adsorbed, preservative free, for adult use (5 Lf of tetanus toxoid and 2 Lf of diphtheria toxoid) Kvng Melgar Other [employer] Other 05-09-2013 pneumococcal polysaccharide vaccine, 23 valent Kvng Melgar Other [employer] Other 05-09-2013 tetanus and diphther ia toxoids, adsorbed, preservative free, for adult use (5 Lf of tetanus toxoid and 2 Lf of diphtheria toxoid) Kvng Melgar Other [employer] Other Payers Date Payer Category Payer Self-pay [id number] 2014 Private Health Insurance [id number] 2003 Medicare [id number] 1959 Medicare [id number] 1959 Private Health Insurance [facility] [id number] 1938 Unknown [id number] 2.16.84 [id number] 1938 Unknown [id number] 2.16.84 [id number] 1938 Unknown [id number] 2.16.84 [id number] 1938 Unknown [id number] 2.16.84 [id number] 1938 Unknown [id number] 2.16.84 [id number] 1938 Unknown [id number] 2.16.84 [id number] 1938 Unknown [id number] 2.16.84 [id number] 1938 Unknown [id number] 2.16.84 [id number] 1938 Unknown [id number] 2.16.84 [id number] Medicare [id number] Unknown [id number] 2.16.8 [id number] Unknown [id number] 2.16.8 [id number] Unknown [id number] 2.16.8 [id number] Social History Date Type Detail Facility Start: 01-03-2015 End: 01-24-2023 Tobacco smoking status NHIS Ex-smoker [facility] History of tobacco use Current smoker [facility] Start: 01-03-2015 Tobacco use and exposure Smokeless tobacco non-user [facility] Start: 05-17-2022 End: 07-27-2022 Alcohol intake Ex-drinker (finding) [facility] Start: 1940 Sex Assigned At Not on file C [facility] Start: 05-08-2022 End: 05-25-2022 Exposure to SARS-CoV-2 (event) Not sure [facility] Start: 07-26-2022 End: 10-28-2022 Tobacco smoking status WIIS Never smoked tobacco (finding) [facility] Start: 1940 Sex Assigned At Female F [facility] Sex Assigned At Sex Assigned At Bir th [employer] Other Goals Date Patient Goal Desired Activity /State Clinical Notes 11-28-2019 to 08-10-2023 Note Date & Type Note Facility 08-10-2023 Evaluation note Encounter Date Diagnosis Assessment Notes Jul, Epigastric pain (ICD-10 - R10.13) Jul, Constipation (ICD-10 - K59.00) Oct, Nausea (ICD-10 - R11.0) Nausea [facility] [employer] Other 12-11-2023 Evaluation note* Encounter Date Diagnosis Assessment Notes Treatment Notes Treatment Clinical Notes Jun, Lumbar spondylosis (ICD-10 - M47.816) [employer] Other 11-21-2023 Evaluation note* Encounter Date Diagnosis Assessment Notes Treatment Notes Treatment Clinical Notes May, Claustrophobia (ICD-10 - F40.240) [employer] Other 11-17-2023 Evaluation note* Encounter Date Diagnosis Assessment Notes Treatment Notes Treatment Clinical Notes May, Stage 3a chronic kidney disease (ICD-10 - N18.31) The patient is instructed on adequate control of hypertension and diabetes, if appropriate. They are also educated on the associated risks of NSAIDs and PPI use with kidney disease. They were instructed on adequate fluid balance and to avoid dehydration. May, Primary hypertension (ICD-10 - I10) This patient [...] May, Other specified hypothyroidism (ICD-10 - E03.8) [employer] Other 11-10-2023 Evaluation note* Encounter Date Diagnosis Assessment Notes Treatment Notes Treatment Clinical Notes May, Lumbar spondylosis (ICD-10 - M47.816) [employer] Other 09-13-2023 Evaluation note* Encounter Date Diagnosis Assessment Notes Treatment Notes Treatment Clinical Notes Mar, Chronic superficial gastritis with bleeding (ICD-10 - K29.31) [employer] Other 08-25-2023 Evaluation note* Encounter Date Diagnosis Assessment Notes Treatment Notes Treatment Clinical Notes Feb, Allergic contact dermatitis due to plants, except food (ICD-10 - L23.7) Cool compresses, topical steroids and begin Prednisone. _update on Feb, Cellulitis of left upper extremity (ICD-10 - L03.114) Elevate and begin antibiotics, update on Tuesday [employer] Other 08-15-2023 Evaluation note* Encounter Date Diagnosis [...] exercise for 30 minutes, 3-5 times weekly. [employer] Other 08-14-2023 Evaluation note* Encounter Date Diagnosis Assessment Notes Treatment Notes Treatment Clinical Notes Feb, Lumbar spondylosis (ICD-10 - M47.816) [employer] Other 06-20-2023 Evaluation note* Encounter Date Diagnosis Assessment Notes Treatment Notes Treatment Clinical Notes Dec, Autoimmune thyroiditis (ICD-10 - E06.3) [employer] Other 05-12-2023 Evaluation note* Encounter Date Diagnosis Assessment Notes Treatment Notes Treatment Clinical Notes November, Lumbar spondylosis (ICD-10 - M47.816) [employer] Other 05-11-2023 Evaluation note* Encounter Date Diagnosis [...] E03.8) November, Lumbar spondylosis (ICD-10 - M47.816) [employer] Other [facility]EDURE: XR HIP LT 2 3V [...] Electronically authenticated by: ANTHONY GUIDRY Date: 2022-10-20 15:40[facility]04-04-2023 Evaluation note* Encounter Date Diagnosis Assessment [...] mammogram for breast cancer (ICD-10 - Z12.31) [employer] Other 01-17-2023 NoteHNO ID: [id number] Author: Mavis Santiago MD Service: ? Author Type: Physician Type: Progress Notes Filed: 07/27/2022 2:56 PM Note Text: PATIENT NAME: Tangela Mac [facility] NO.: [id number] ATTENDING PHYSICIAN: Mavis Santiago MD DATE OF [...] Status 07/27/2022 18.0 (H) (more content not included)...[facility] 07-27-2022 History of Present illness Narrative* Mavis Santiago MD - 07/27/2022 2:48 PM EST PATIENT NAME: Tangela Trinidad [facility] NO.: [id number] ATTENDING PHYSICIAN: Mavis Santiago MD DATE OF [...] 07/27/2022 3.25 1.00 - 4.00 k/uL Final [place]% Date Value Ref Range Status 07/27/2022 14.0 % Final Abs [place] Date Value Ref Range Status 07/27/2022 1.25 [...] do not hesitate to contact me at [phone]. Mavis Santiago MD Hematology/Medical Oncology [facility] Saavedra spent a total of 20 minutes on the date of the service which included preparing to see the patient, digp-gb-ysum patient care, completing clinical documentation, obtaining and/or reviewing separately obtained history, performing a medically appropriate examination, counseling and educating the pat ient/family/caregiver, and ordering medications, tests, or procedures. CC: Kvng Melgar DO [facility]* Encounter Date Diagnosis Assessment Notes Treatment Notes Treatment Clinical Notes Jul, Acute gastric ulcer without hemorrhage or perforation (ICD-10 - K25.3) [employer] Other [id number] [facility]* Encounter Date Diagnosis Assessment [...] Healty diet, keep active, consistent sleep routine [employer] Other 11-23-2022 NoteHNO ID: [id number] Author: MONY Mart Service: ? Author Type: Manager Regional Type: Progress Notes Filed: 06/02/2022 3:17 PM Note Text: Patient appears on the First Time Treatment List for a non-oncology treatment. No psychosocial assessment is indicated. KAYLEY Mart-[facility]11-23-2022 History of Present illness Narrative* MONY Mart - 06/02/2022 3:16 PM EST Patient appears on the First Time Treatment List for a non-oncology treatment. No psychosocial assessment is indicated. KAYLEY Mart-[facility] Miscellaneous Notes* Telephone Encounter - Mohit Lo [facility] - 05/25/2022 3:32 PM EST 1st report of treatment-non oncology regimen (Monoferric) Patient holds Medicare coverage. No FA available at this time. [facility]-2022 NoteHNO ID: [id number] Author: Mavis Santiago MD Service: ? Author Type: Physician Type: Progress Notes Filed: 05/18/2022 4:08 PM Note Text: PATIENT NAME: Tangela Trinidad [facility] NO.: [id number] ATTENDING PHYSICIAN: Mavis Santiago MD DATE OF [...] Final Lymph% Date Va (more content not included)...[facility]11-08-2022 History of Present illness Narrative* Mavis Santiago MD - 05/18/2022 3:51 PM EST PATIENT NAME: Tangela Trinidad [facility] NO.: [id number] ATTENDING PHYSICIAN: Mavis Santiago MD DATE OF [...] 05/11/2018 2.74 1.00 - 4.00 k/uL Final [place]% Date Value Ref Range Status 05/11/2018 12.1 % Final Abs [place] Date Value Ref Range Status 05/11/2018 1.12 [...] do not hesitate to contact me at [phone]. Mavis Santiago MD Hematology/Medical Oncology [facility] I spent a total of 30 minutes on the date of the service which included preparing to see the patient, tyyn-it-hhyz patient care, completing clinical documentation, obtaining and/or reviewing separately obtained history, performing a medically appropriate examination, counseling and educating the pat ient/family/caregiver, and ordering medications, tests, or procedures. Medical Decision Making: Medical Decision Making Level: 1 - N/A CC: Kvng Melgar DO documented in this encounterKe[facility]11-19-2020 Progress note Author Karthikeyan Salcedo [facility] May 29, 2020 11:30am Note Date/Time May 29, 2020 11:29am [place] [address] Hem/Onc Follow Up Note - OP Signed Patient: Tangela Trinidad MR#: [id number] : 1940 Acct:[id number] Age/Sex: 80 / F Type: REG RCR [...] Rash Penicillins Allergy (Verified 11/28/19 10:23) Hives Uemoiaj-Ixj-Fhw Reductase Inhibitor Allergy (Verified 11/28/19 10:23) Unknown [...] Neut % (Auto) 50.8,Lymph % (Auto) 30.1, [place] % (Auto) 14.9, Eos % (Auto) 3.3, Baso % (Auto) 0.9, Neut # (Auto) 4.4, Lymph # (Auto) 2.6, [place] # (Auto) 1.3 H, Eos # (Auto) [...] for coordination of care (as documented) and woai-tz-frqc counseling of patient and/or family. Dictated By: Karthikeyan Salcedo MD DD/ [id number] Signed By: <Electronically signed by MD Karthikeyan Salcedo> 05/29/20 1130 [facility] Work Phone: 1(751) 550-138205-20-2020 Progress note Author Karthikeyan Salcedo [facility] November 28, 2019 12:52pm Note Date/Time November 28, 2019 12:50 pm [facility] [place] [address] Hem/Onc Follow Up Note - OP Signed Patient: Tangela Trinidad MR#: [id number] : 1940 Acct:[id number] Age/Sex: 79 / F Type: REG RCR [...] feels fine. She has no complaints today. COUNT INCLUDES [facility] - Social History Smoking Status: Never smoker Home Medications & Allergies Allergies Cephalosporins Allergy (Verified 11/28/19 10:23) Unknown Reaction nitrofurantoin [From Macrodantin] Allergy (Verified 11/28/19 10:23) Rash Penicillins Allergy (Verified 11/28/19 10:23) Hives Nwrepnp-Vfm-Dic Reductase Inhibitor Allergy (Verified 11/28/19 10:23) Unknown [...] Neut % (Auto) 49.9,Lymph % (Auto) 27.3, [place] % (Auto) 15.1, Eos % (Auto) 6.5, Baso % (Auto) 1.2, Neut # (Auto) 4.3, Lymph # (Auto) 2.4, [place] # (Auto) 1.3 H, Eos # (Auto) [...] for coordination of care (as documented) and rehg-hn-gyhd counseling of patient and/or family. Dictated By: Karthikeyan Salcedo MD DD/ [id number] Signed By: <Electronically signed by MD Karthikeyan Salcedo> 11/28/19 1252 [facility] Work Phone: Evaluation note* Diagnosis Iron deficiency- Primary Iron deficiency anemia, unspecified [facility] Diagnosis Iron deficiency anemia, unspecified iron deficiency anemia type- Primary Iron deficiency Iron deficiency anemia, unspecified [facility] Diagnosis Iron deficiency- Primary Iron deficiency anemia, unspecified [facility] this encounter [facility] noteNo assessment information [facility] Work Phone: Evaluation noteNo [employer] Other History and physical note Author Jeyson Diaz [facility] July 26, 2022 8:09am Note Date/Time July 26, 2022 8 :09am [facility] [address] [place] [address] Gastroenterology H&P Signed Patient: Tangela Trinidad MR#: [id number] : 1940 Acct:[id number] Age/Sex: 82 / F Adm Date: 3 Loc: Room: Type: [facility] Attending Dr: Jeyson Diaz MD Copies to: [...] <Electronically signed by Jeyson Diaz MD> 07/26/22808 [facility] Work Phone: History and physical note Author Jeyson Diaz [facility] October 28, 2022 1:13pm Note Date/Time October 28, 2022 1:1 3pm [facility] [address] [place] [address] Gastroenterology H&P Signed Patient: Tangela Trinidad MR#: [id number] : 1940 Acct:[id number] Age/Sex: 82 / F Adm Date: 3 Loc: Room: Type: [facility] Attending Dr: Jeyson Diaz MD Copies to: Kvng Melgar,DO Jeyson Diaz MD~ Date of Service: 10/28/2022 [...] M.D. 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 Medical History Essential hypertension Medical History [...] History colonoscopy 07/26/22 Hospitalization History see above [employer] Other [facility] Narrative - Reported* Type Description Date Medical History Cervical spondylosis Medical History Vitamin D deficiency Medical History Hyponatremia Medical History [place] Medical History Fatigue Medical History Depression screening Medical History Encounter for screening breast e xamination Medical History Leukocytosis Medical History Chronic [id number] syndrome Medical History Essential hypertension Medical History [...] w/ biopsy 10/2022 Hospitalization History see above [employer] Other History general Narrative - Reported* Type Description Date Medical History Cervical spondylosis Medical History Vitamin D deficiency Medical History Hyponatremia Medical History [place] Medical History Fatigue Medical History Depression screening Medical History Encounter for screening breast e xamination Medical History Leukocytosis Medical History 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 for [...] NOT operate machinery such as power tools, [employer] mowers, snow blowers, sewing machines, etc. for [...] -Follow up with PCP. - Office number [phone]. [facility] Work Phone: Hospital Discharge instructions Additional Instructions [...] problems. -Follow up with PCP. -Office number [phone]. [facility] Work Phone: Hospital Discharge instructions Additional Instructions [...] problems. -Follow up with PCP. -Office number [phone]. [facility] Work Phone: Summary Purpose Family History [...] over 45 Minutes, ONCE, 1 dose, On Tu05/25/22 at 1330, Monitor patient for hypersensitivity reactions during the infusion and for 30 minutes after infusion is complete. EXP: (8 HR) New Bag/Syringe/Bottle 05/25/2022 2:01 PM EST 1,000 mg Chief Complaint and Reason for Visit Chief Complaint Iron Deficiency Anem ia Iron Deficiency Anemia Chief Complaint Gastric Ulcer Chief Complaint R11.0 Additional Source Comments INFORMATION SOURCE (unrecogn ized section and content) DATE CREATED AUTHOR 01/06/2018 Bethany Quiroz Stevie rafa DATE CREATED AUTHOR AUTHOR'S ORGANIZ ATION 08/04/2022 [facility] DATE CREATED AUTHOR AUTHOR'S ORGANIZ ATION 11/10/[address] [facility] DATE CREATED AUTHOR AUTHOR'S ORGANIZ ATION 08/19/2023 [facility] Source Comments (unrecognize d section and content) In the event this informatio n is protected by the Federal Confidentiality of Alcohol and Drug Abuse Patient Records regulations: The Federal rules restrict any use of the information to criminally investigate or prosecute any alcohol or drug abuse patient.[facility] the event this information is protected by the Federal Confidentiality of Alcohol and Drug Abuse Patient Records regulations: The Federal rules restrict any use of the information to criminally investigate or prosecute any alcohol or drug abuse patient.[facility] the event this information is protected by the Federal Confidentiality of Alcohol and Drug Abuse Patient Records regulations: The Federal rules restrict any use of the information to criminally investigate or prosecute any alcohol or drug abuse patient.[facility] the event this information is protected by the Federal Confidentiality of Alcohol and Drug Abuse Patient Records regulations: The Federal rules restrict any use of the information to criminally investigate or prosecute any alcohol or drug abuse patient.[facility] the event this information is protected by the Federal Confidentiality of Alcohol and Drug Abuse Patient Records regulations: The Federal rules restrict any use of the information to criminally investigate or prosecute any alcohol or drug abuse patient.[facility] the event this information is protected by the Federal Confidentiality of Alcohol and Drug Abuse Patient Records regulations: The Federal rules restrict any use of the information to criminally investigate or prosecute any alcohol or drug abuse patient.[facility] Care Teams (unrecognized sec tion and content) Team Status: Active Member Role Status Dates Kvng Melgar DO Primary Care Provider Active Team Status: Inactive Member Role Status Dates Kvng Melgar DO Primary Care Provider Active Jeyson Diaz MD Attending Provider Active Embalmer/Funeral Director Relationship Specialty Start Date End Date ErmelindaKvng Genesis, DO PCP - General Internal Medicine 11/14/14 Embalmer/Funeral Director Relationship Specialty Start Date End Date Kvng Melgar DO PCP - General Internal Medicine 11/14/14 Embalmer/Funeral Director Relationship Specialty Start Date End Date Kvng Melgar, DO PCP - General Internal Medicine 11/14/14 Embalmer/Funeral Director Relationship Specialty Start Date End Date Kvng Melgar, DO PCP - General Internal Medicine 11/14/14 Embalmer/Funeral Director Relationship Specialty Start Date End Date Kvng Melgar, DO PCP - General Internal Medicine 11/14/14 Embalmer/Funeral Director Relationship Specialty Start Date End Date Kvng Melgar, DO PCP - General Internal Medicine 11/14/14 Reason for Visit (unrecogniz ed section and content) PATIENT IS HERE FOR A FOLLOW UP FOR GASTRIC EMPTYING STUDY Reason Comments Anemia Transition of care. Ref back by Dr. Melgar Reason Comments Benefits Investigation Specialty Diagnoses / Procedures Referred By Jane t Referred To Contact Diagnoses Iron deficiency anemia, unspecified iron deficiency anemia type Iron deficiency Mavsi Santiago MD [address] [place] [id number] [address]on Treat [address] [place] [address] Referral ID Status Reason Start Date Expiration Date V isits Requested Visits Authorized [id number] Authorized 05/18/2022 08/16/2022 99 99 Reason Comments Anemia 10 week follow up Goals (unrecognized section and content) Goals may be documented in a n alternate section FOR RECORDS PERTAINING TO PATIENTS WHO ARE [...] BE BASED ON THE PRIMARY CLINICAL RECORDS. [employer] provides no warranty or guarantee of the accuracy or completeness of information in this document.
[2023-09-01 15:28] LABS: Basophils Absolute Auto 0.1 10^3/uL (0.0-0.1); Eosinophils Absolute Auto 0.5 10^3/uL (0.0-0.7); Eosinophils Percent Auto 5.8 % (0.9-7.0); Hematocrit 38.5 % (36.0-48.0); Hemoglobin 12.8 g/dL (12.0-16.0); Immature Granulocytes Abs Auto 0.03 10^3/uL (0.00-0.03); Immature Granulocytes Pct Auto 0.4 % (0.0-0.5); Lymphocytes Absolute Auto 2.6 10^3/uL (1.2-3.8); Lymphocytes Percent Auto 32.6 % (20.5-60.0); Mean Corpuscular HGB Conc 33.2 g/dL (29.9-35.2); Mean Corpuscular Volume 90.4 fL (81.0-99.0); Mean Platelet Volume 9.3 fL (9.5-13.5); Monocytes Absolute Auto 1.4 10^3/uL (0.3-0.8); Monocytes Percent Auto 17.6 % (1.7-12.0); Neutrophils Absolute Auto 3.4 10^3/uL (1.4-6.5); Neutrophils Percent Auto 42.6 % (43.0-75.0); Platelet Count 328 10^3/uL (150-450); Red Blood Count 4.26 10^6/uL (4.20-5.40); Red Cell Distribution Width 13.1 % (11.0-15.0); White Blood Count 7.9 10^3/uL (4.0-11.0)
[2023-09-01 15:51] LABS: Percent Iron Saturation 18.3 %
[2023-09-01 16:01] LABS: Alanine Aminotransferase 26 U/L (14-59); Albumin Globulin Ratio 0.9; Albumin Level 3.3 g/dL (3.4-5.0); Alkaline Phosphatase 71 U/L (46-116); Anion Gap 11.3; Aspartate Amino Transferase 26 U/L (15-37); BUN Creatinine Ratio 17.2; Bilirubin Total 0.4 mg/dL (0.2-1.0); Calcium 8.9 mg/dL (8.5-10.1); Carbon Dioxide 27.7 mmol/L (21.0-32.0); Chloride 99 mmol/L (98-107); Estimated GFR (African America >60 (>=60); Estimated GFR (Non-African Ame 57 (>=60); Globulin 3.8 g/dL; Glucose 84 mg/dL (74-106); Sodium 134 mmol/L (136-145); Total Protein 7.1 g/dL (6.4-8.2)
[2023-09-01 16:30] LABS: Free T4 1.11 ng/dL (0.76-1.46)
== END 2023-09-01 15:01 | disposition home or self-care (01) ==
LOC: LAB 15:03
PROVIDERS: PCP Internal Medicine; Visit Provider Internal Medicine
DX: D64.9 Anemia, unspecified (principal); N18.31 Chronic kidney disease, stage 3a; R20.2 Paresthesia of skin; E03.8 Other specified hypothyroidism
CPT/HCPCS: 36415; 80053; 82607; 82728; 83540; 83550; 84439; 84443; 85025

== ENCOUNTER 2023-10-06 11:00 | Outpatient (OUT) | payer MEDICARE, OTHER, SELFPAY ==
[2023-10-06 11:24] LABS: Basophils Absolute Auto 0.1 10^3/uL (0.0-0.1); Eosinophils Absolute Auto 0.3 10^3/uL (0.0-0.7); Eosinophils Percent Auto 3.7 % (0.9-7.0); Hematocrit 37.6 % (36.0-48.0); Hemoglobin 12.4 g/dL (12.0-16.0); Immature Granulocytes Abs Auto 0.02 10^3/uL (0.00-0.03); Immature Granulocytes Pct Auto 0.3 % (0.0-0.5); Lymphocytes Absolute Auto 2.3 10^3/uL (1.2-3.8); Lymphocytes Percent Auto 29.2 % (20.5-60.0); Mean Corpuscular Hemoglobin 30.1 pg (26.7-34.0); Mean Corpuscular Volume 91.3 fL (81.0-99.0); Mean Platelet Volume 9.6 fL (9.5-13.5); Monocytes Absolute Auto 1.1 10^3/uL (0.3-0.8); Monocytes Percent Auto 14.5 % (1.7-12.0); Neutrophils Percent Auto 51.3 % (43.0-75.0); Platelet Count 287 10^3/uL (150-450); Red Blood Count 4.12 10^6/uL (4.20-5.40); Red Cell Distribution Width 13.5 % (11.0-15.0); White Blood Count 7.9 10^3/uL (4.0-11.0)
[2023-10-06 11:50] LABS: Erythrocyte Sedimentation Rate 19 mm/hr (<=30)
[2023-10-06 12:17] LABS: Alanine Aminotransferase 33 U/L (14-59); Albumin Level 3.3 g/dL (3.4-5.0); Alkaline Phosphatase 58 U/L (46-116); Anion Gap 12.6; Aspartate Amino Transferase 29 U/L (15-37); BUN Creatinine Ratio 15.2; Bilirubin Total 0.3 mg/dL (0.2-1.0); C Reactive Protein <0.50 mg/dL (<=0.50); Calcium 8.9 mg/dL (8.5-10.1); Carbon Dioxide 26.8 mmol/L (21.0-32.0); Chloride 98 mmol/L (98-107); Estimated GFR (African America >60 (>=60); Estimated GFR (Non-African Ame 53 (>=60); Globulin 3.4 g/dL; Glucose 71 mg/dL (74-106); Potassium 4.4 mmol/L (3.5-5.1); Sodium 133 mmol/L (136-145); Total Protein 6.7 g/dL (6.4-8.2)
== END 2023-10-06 11:01 | disposition home or self-care (01) ==
LOC: LAB 11:05
PROVIDERS: PCP Internal Medicine; Visit Provider Internal Medicine
DX: H49.20 Sixth [abducent] nerve palsy, unspecified eye (principal); H53.2 Diplopia; H49.02 Third [oculomotor] nerve palsy, left eye; H02.409 Unspecified ptosis of unspecified eyelid
CPT/HCPCS: 36415; 80053; 85025; 85652; 86041; 86140

== ENCOUNTER 2023-10-14 13:26 | Outpatient (OUT) | payer MEDICARE, OTHER, SELFPAY ==
--- NOTE | 2023-10-14 13:32 | MR_ITS ---
The [address] [address] Patient Name: ELIANE MOSS MRN: [id number] date: 1940 Sex: F Assigned Patient Location: MRI Current Patient Location: Accession/Order Number: [id number] Exam Date: 10/14/2023 14:05 Report Date: 10/17/2023 09:08 At the request of: GAB WADSWORTH Procedure: MR angio head wo con MRA BRAIN WITHOUT CONTRAST, 10/14/2023. HISTORY: Diplopia. COMPARISON: None TECHNIQUE: Axial 3-D [id number] MRA images obtained. Multiple reconstructed MIP images obtained. FINDINGS: Distal internal carotid and vertebral arteries normal. Basilar artery is normal. Cerebellar arteries normal. Anterior, middle and posterior cerebral arteries normal. No aneurysm. No vascular malformation. MR/MR angio head wo con IMPRESSION: Normal MRA of the brain. Electronically authenticated by: NICKOLAS DOSS Date: 10/17/2023 09:08
--- NOTE | 2023-10-14 13:33 | MR_ITS ---
The [address] [address] Patient Name: ELIANE MOSS MRN: [id number] date: 1940 Sex: F Assigned Patient Location: MRI Current Patient Location: Accession/Order Number: [id number] Exam Date: 10/14/2023 14:05 Report Date: 10/17/2023 09:08 At the request of: GAB WADSWORTH Procedure: MR head/brain wo con MRI brain without contrast, 10/14/2023. HISTORY: Cranial nerve palsy. COMPARISON: MRI brain, 05/30/2023. TECHNIQUE: Multiplanar, multisequence MRI imaging of the brain without contrast. FINDINGS: Paranasal sinuses are clear. Mastoid air cells clear. Prior cataract surgery. Extracranial soft tissue structures are unremarkable. Mild generalized brain atrophy. Large amount of chronic microvascular ischemic change in the cerebral white matter stable from the prior. No subdural fluid collection. No mass effect. No shift of midline. No diffusion restriction. No acute ischemic infarction. T2 gradient images show no hemorrhagic lesions. No masses. MR/MR head/brain wo con IMPRESSION: 1. No acute infarction. 2. Chronic microvascular ischemic changes and brain atrophy stable. No significant change. Electronically authenticated by: NICKOLAS DOSS Date: 10/17/2023 09:08
== END 2023-10-14 13:27 | disposition home or self-care (01) ==
LOC: MRI 13:26
PROVIDERS: PCP Internal Medicine; Visit Provider Internal Medicine
DX: H49.20 Sixth [abducent] nerve palsy, unspecified eye (principal); H53.2 Diplopia; H49.02 Third [oculomotor] nerve palsy, left eye; H02.409 Unspecified ptosis of unspecified eyelid
CPT/HCPCS: 70544; 70551

== ENCOUNTER 2024-01-03 09:16 | Outpatient (OUT) | payer MEDICARE, OTHER, SELFPAY ==
--- NOTE | 2024-01-03 | XR_ITS ---
The [place] [id number] Patient Name: ELIANE MOSS MRN: [id number] date: 1940 Sex: F Assigned Patient Location: [facility] Current Patient Location: [facility] Accession/Order Number: [id number] Exam Date: 01/03/2024 09:28 Report Date: 01/03/2024 09:49 At the request of: GAB WADSWORTH Procedure: XR hip RT 2V w/ pelvis PROCEDURE: XR hip RT 2V w/ pelvis COMPARISON: None. HISTORY: M25.551 Pain in right hip FINDINGS: BONES: No acute fracture or dislocation Mild to moderate bilateral hip osteoarthropathy with marginal osteophyte formation and joint space narrowing. Moderate degenerative changes of the spine SOFT TISSUES:Negative. No visible soft tissue swelling. EFFUSION:None visible. OTHER: Negative. XR/XR hip RT 2V w/ pelvis IMPRESSION: Moderate osteoarthritis Electronically authenticated by: AMADO BANG Date: 01/03/2024 09:49
--- NOTE | 2024-01-03 | XR_ITS ---
The [address] [address] Patient Name: ELIANE MOSS MRN: [id number] date: 1940 Sex: F Assigned Patient Location: [facility] Current Patient Location: [facility] Accession/Order Number: [id number] Exam Date: 01/03/2024 09:28 Report Date: 01/03/2024 09:47 At the request of: GAB WADSWORTH Procedure: XR knee RT 4V PROCEDURE: XR knee RT 4V COMPARISON: None. HISTORY: M25.561, Right knee pain FINDINGS: BONES:Total knee arthroplasty with patellar resurfacing. No acute fracture or dislocation or mechanical failure SOFT TISSUES:Negative. No visible soft tissue swelling. EFFUSION:Trace joint effusion OTHER: Negative. XR/XR knee RT 4V IMPRESSION: Total knee arthroplasty with small joint effusion Electronically authenticated by: AMADO BANG Date: 01/03/2024 09:47
--- OUTSIDE RECORDS SUMMARY | 2024-01-03 09:42 | XMS_ITS | CCD ---
Author Organization [facility] Care Team Providers Care Supervisor Hide House Name Role Phone Doctor, No Unavailable Unavailable Doctor, No Unavailable Unavailable Donnell Barton Unavailable Unavailable Donnell Barton Unavailable Unavailable Kvng Melgar DO Primary Care Provider Kvng Melgar DO Primary Care Provider DO Kvng Melgar Primary Care Provider [phone] MD Jeyson Diaz Attending Provider KVNG MELGAR Primary Care Unavailable MAVIS SANTIAGO Referring Unavailable MAVIS SANTIAGO Attending Unavailable KVNG MELGAR Primary Care Unavailable KVNG MELGAR Primary Care Unavailable MAVIS SANTIAGO Attending Unavailable KVNG MELGAR Referring Unavailable KVNG MELGAR Primary Care Unavailable Adebayo Pan Unavailable Kvng Melgar Unavailable Jeyson Diaz Unavailable Sadiq Beckham Unavailable DO Kvng Melgar Primary Care Provider MD Joe Imprice Attending Provider DR KVNG MELGAR Primary Care Unavailable ERMELINDA, DR CALDERON Attending Unavailable ERMELINDA, DR CALDERON Admitting Unavailable ERMELINDA, DR CALDERON Consulting Unavailable NESTOR, DR ANTHONY Gautam Consulting Unavailable ERMELINDA, DR CALDERON Consulting Unavailable ERMELINDA, DR CALDERON Admitting Unavailable BALL, DR CALDERON Attending Unavailable BALL, DR CALDERON Primary Care Unavailable BALL, DR CALDERON Admitting Unavailable BALL, DR CALDERON Attending Unavailable BALL, DR CALDERON Consulting Unavailable BALL, DR CALDERON Primary Care Unavailable ERMELINDA, DR CALDERON Primary Care Unavailable JAVON, DR FERGUSON Admitting Unavailable JAVON, DR FERGUSON Attending Unavailable KATELYNN ., NISSA Admitting Unavailable KATELYNN ., NISSA Attending Unavailable ZIEBALENA, DR ANTHONY Gautam Consulting Unavailable BALL, DR [...] Unavailable Ball, DO Calderon Primary Care Provider [phone] MD Joe Imprice Attending Provider Ermelinda, DO Calderon Primary Care Provider MD Joe Imprice Attending Provider Asaad, Imad [...] Translations: [PENICILLINS] Drug allergy (disorder) 11-16-19 15 [facility] Repository (7 sources) Sulfonamides (Antibiotic); Translations: [SULFA (SULFONAMIDE ANTIBIOTICS)] Drug allergy (disorder) 11-16-19 15 [facility] Repository (6 sources) Nekowdf-Xxw-Mqm Reductase Inhibitor Drug allergy (disorder) 01-06-20 18 Unknown Reaction [facility] Repository (20 sources) Cephalosporins (Antibiotic); Translations: [CEPHALOSPORINS] Drug Allergy 10-24-19 15 Unknown [facility] (7 sources) HMG-CoA reductase inhibitor; Translations: [OJEDPTX-LKQ-YXZ REDUCTASE INHIBITORS] Drug Allergy 01-06-20 18 Unknown [facility] (7 sources) Nitrofurantoin; Translations: [NITROFURANTOIN MACROCRYSTAL] Drug Allergy 10-12-19 19 Rash, Itching [facility] (6 sources) Penicillins Drug Allergy 11-16-19 15 [facility] (20 sources) Povidone-Iodine; Translations: [POVIDONE-IODINE] Drug Allergy 06-21-20 19 Unknown [facility] (20 sources) Sulfonamides (Antibiotic) Drug Allergy 11-16-19 15 [facility] (20 sources) Vancomycin; Translations: [VANCOMYCIN] Drug Allergy 10-12-19 19 Rash, Itching [facility] (20 sources) Nitrofurantoin; Translations: [nitrofurantoin] Drug Allergy 12-02-19 21 rash [facility] (20 sources) Penicillin G Benzathine Drug allergy rash [facility] Other (20 sources) Sulfacetamide / Sulfur Drug Allergy rash [employer] Other (20 sources) Statins Depletion Drug allergy muscle aches [facility] [employer] Other (1 source) black walnut pollen extract Drug Allergy 05-17-20 14 [facility] Repository (1 source) Cephalosporins (Antibiotic) Drug allergy (disorder) 10-24-19 15 [facility] Repository (2 sources) Nitrofurantoin Drug Allergy 10-24-19 15 rash [facility] Repository (1 source) Penicillins Drug allergy (disorder) 01-24-20 13 [facility] Repository (2 sources) Povidone-Iodine Drug Allergy 06-21-20 19 Unknown [facility] Repository (1 source) Sulfonamides (Antibiotic) Drug allergy (disorder) 01-31-20 13 [facility] Repository (1 source) Vancomycin Drug Allergy 10-24-19 15 [facility] Repository (20 sources) Statins Depletion *DIETARY PRODUCTS/DIETARY MANAGE Propensity to adverse reactions Unknown [facility] Other (20 sources) Substance with penicillin structure and antibacterial mechanism of action (substance) Drug allergy 04-30-20 06 PENICILLINS [facility] Other (20 sources) Sulf-10 Drug allergy 12-01-19 06 SULFA 10 [facility] Other (1 source) Vancomycin Drug Allergy rash [employer] Other (1 source) Cephalosporins (Antibiotic) Drug allergy (disorder) 08-10-19 [facility] Repository (1 source) Povidone-Iodine Drug Allergy 08-10-19 [facility] Repository (1 source) Vancomycin Drug Allergy 08-10-19 [facility] Repository Medications Current Medications Medication Drug Class(es) Dates Sig (Normalized) Sig (Original) acetaminophen 500 mg oral tablet (9 sources) Start: 07-26-2022 take 1 tablet by [...] by mouth every four to six hours Vvhcuzu-Tbnqfcjdgswpk-Oatscenp (Excedrin Migraine) 250-250-65 mg Tablet Active 1 TAB PO EVERY 4-6 HOURS July 26, 2022 12:00am take 2 tablets by mouth every si x hours Excedrin Migraine 250-250-65 MG 2 tablets as needed Orally every 6 hrs Active [id number] actuat albuterol 0.09 mg/actuat metered dose [...] Start: 12-28-2017 take 1 capsule by mo [facility] every twelve hours Doxycycline Hyclate 100 MG [...] sources) Multivitamin Act kerri Multivitamin Not -Taking [place] 3 1200 MG (20 sources) take 1 capsule by mo ut once daily [place] 3 1200 MG 1 capsule Orally Once a day Active take 1 capsule by mouth once taniya ly [place] 3 1200 MG 1 capsule Orally Once [...] Orally twice daily as needed for pain Start 06/20 w/ 2RF Jun, Active Start: [...] needed Orally every 6 hrs Not-Taking Vit C,Z-Sp-Txaoo-Lutein-Zeax an (Preservision Areds-2) 250-90-40-1 mg Capsule (4 sources) Start: 07-26-2022 Vit C,J-Ch-Mmgci-Lutein-Zeax an (Preservision Areds-2) 250-90-40-1 mg Capsule Active 1 TAB PO Twice daily July 26, 2022 1:00am Start: 07-26-2022 Vit C,E-Zn-Metallurgical Inspector bh-Vtlols-Fnfmqs (Preservision Areds-2) 250-90-40-1 mg Capsule Active 1 TAB PO Twice daily July 26, 2022 12:00am Vitamin C 500 MG (20 sources) Vitamin C 500 MG Orally Active Vitamin C 500 MG Orally Not-Taking vitamin e d-alpha 400 unt oral capsule (3 sources) take 1 capsule by [facility] every twenty-four hours Vitamin E 400 UNIT [...] Comment on above: Take by mouth. CA/D3/MAG OX/ZINC/COOPERAGE SHOP SUPERVISOR/MEREDITH/ BOR (CALCIUM 600+D3 PLUS ORAL) (6 sources) take 1200 mg by mouth once daily CA/D3/MAG OX/ZINC/COOPERAGE SHOP SUPERVISOR/MEREDITH/B OR (CALCIUM 600+D3 PLUS ORAL) Take 1,200 [...] mg by mouth twice daily. 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; Translations: [ENDOCRINOLOGY NURSE CURRNT USE OPIATE ANALGES] Onset: 10-26-2022 Episodic [...] Episodic Other disorders of stomach and duodenum (17 sources) Indigestion; Translations: [Functional dyspepsia] Episodic Other [...] Translations: [Celiac disease] Chronic Other gastrointestinal disorders (2 sources) Constipation; Translations: [Constipation, unspecified] Episodic Other gastrointestinal [...] Onset: 09-28-2022 Episodic Other nervous system disorders (12 sources) Paresthesia; Translations: [Paresthesia of skin] Episodic [...] ORGN/SYS] Onset: 10-26-2022 Episodic Residual codes; unclassified (12 sources) Memory impairment; Translations: [Other amnesia] Episodic [...] sciatica, unspecified chronicity] Unclassified (20 sources) 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; Translations: [Chronic lakn-TAYXX-90 syndrome] Unclassified (3 sources) LOW BACK PAIN, [...] exposure to COVID-19] Unclassified (1 source) 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; Translations: [Chronic nmyo-TFMFK-77 syndrome] Viral infection (4 sources) COVID-19; Translations: [...] given] Onset: 04-27-2016 Episodic Nausea and vomiting (7 sources) Nausea; Translations: [Nausea] Onset: 11-03-2015 Episodic Nonspecific chest pain (2 sources) Chest pain, unspecified; Translations: [Chest pain] Onset: 01-29-2022 Resolved: 05-22-2020 Episodic Other aftercare (1 source) Other snf (current) drug therapy; Translations: [OTH ENDOCRINOLOGY NURSE CURRENT DRUG THERAPY] Onset: 01-29-2022 Episodic Other [...] emptying studyon 07-25-2023 NM gastric emptying study [facility] [place] [address] Nuclear Medicine Report Signed Patient: Tangela Trinidad MR#: [id number] : 1940 Acct:[id number] Age/Sex: 83 / F ADM Date: 07/25/23 Loc: NM Room: Type: REG CLI Attending Dr: Jeyson Diaz MD Copies to: MD Gaston Li Jeffrey S DO Ordering Provider: Jeyson Diaz MD Date of Service: 07/25/23 NM/NM gastric emptying study: Nausea Nuclear medicine gastric emptying examination TECHNIQUE: 1.1mCi of technetium 99m sulfur colloid in oatmeal. COMPARISON: None HISTORY: Nausea. Stomach ulcers last year. The one half emptying time of the stomach is 25minutes. NM/NM gastric emptying study IMPRESSION: Adequate gastric emptying Impression dictated by: Matt Feldman M.D.07/25/2023 9:40 AM Dictation Location: [place] [address] Transcribed By: LUCAS 07/25/23939 Dictated By: Matt Feldman DO 07/25/23933 Signed By: 07/25/23939 [facility] 10-28-2022 L - -------- Specimen: [id number] Received: 10/28/22 Status: PIYUSH Jimenezsandra Num: [id number] Spec Type: Surgical Subm Dr: Jeyson Diaz MD Tissues: A Gastric Biopsy (GASTRIC ULCER IN FUNDUS) B Gastric Biopsy (GASTRIC ULCER IN BODY) C Esophagus Biopsy (ESOPHAGUS BX) Procedures: HE/6, Gross/Micro L4/3, H PYLORI/4 -------- Age/ Patient Sex Location Account Attending Physician -------- Tangela Trinidad 82/F [id number] Jeyson Diaz MD -------- SPEC NUM: [id number] RECD: 10/28/22 STATUS: PIYUSH JOSEPH NUM: [id number] JOSE: 10/28/22- [facility] DR: Jyeson Diaz MD ENTERED: 10/28/[address] [facility] [address]: ANDRA TYPE: Surgical DEPT: S ORDERED: HE/6, Gross/Micro L4/3, H PYLORI/4 ORDERED: HE/6, Gross/Micro L4/3, H PYLORI/4 Supplemental Report Addendum 1 Entered: 11/01/22 This supplemental report is issued to report Helicobacter pylori IHC performed on blocks A1 and B1 with satisfactory controls. Result: Negative for Helicobacter pylori microorganism in both parts. CPT: 28282c 2 Addendum Signed (signature on file) Fred Wilson MD 11/01/22 1537 -------- Pathological Diagnosis A. Stomach, fundus, ulcer, biopsy: - Chronic active gastritis. - No intestinal metaplasia or dysplasia seen. - Immunostain for H. pylori organisms will follow in supplemental report. B. Stomach, body, ulcer, biopsy: -------- Specimen: [id number] Received: 10/28/22 Status: PIYUSH Joseph Num: [id number] Spec Type: Surgical Subm Dr: Jeyson Diaz MD Tissues: A Gastric Biopsy (GASTRIC ULCER IN FUNDUS) B Gastric Biopsy (GASTRIC ULCER IN BODY) C Esophagus Biopsy (ESOPHAGUS BX) Procedures: HE/6, Gross/Micro L4/3, H PYLORI/4 -------- Patient: Tangela Trinidad [id number] (Continued) -------- Specimen: [id number] Received: 10/28/22 (Continued) Pathological Diagnosis (Continued) Signed (signature on file) Barrett Serra MD 10/29/22 0952 -------- Specimen: [id number] Received: 10/28/22 Status: PIYUSH Joseph Num: [id number] Spec Type: Surgical Subm Dr: Jeyson Diaz MD Tissues: A Gastric Biopsy (GASTRIC ULCER IN FUNDUS) B Gastric Biopsy (GASTRIC ULCER IN BODY) C Esophagus Biopsy (ESOPHAGUS BX) Procedures: HE/6, Gross/Micro L4/3, H PYLORI/4 -------- Patient: Tangela Trinidad [id number] (Continued) -------- Specimen: [id number] Received: 10/28/22 (Continued) Pathological Diagnosis (Continued) - [...] support the above pathologic diagnosis. CPT Codes 12597?3 (more content not included)... [facility] MG MAMM SCREEN 3D ROXANA CADon 10-20-2022 MG MAMM SCREEN 3D ROXANA CAD Patient: TANGELA TRINIDAD Exam Date: 10/20/2022 : 1940 Gender:F Ordering : DR KVNG MELGAR D.O. Admission #: [id number] Family : Order #: [id number] CLICK HERE TO VIEW EXAM RADIOLOGY REPORT [...] melonoma cancer at age 64. LOCATION: [facility] BREAST COMPOSITION: Scattered areas fibroglandular density. [...] Guidry M.D. on 10/20/2022 at 13:19 Normal [facility] CBC W Auto Differential pane l (Bld)on 07-27-2022 Basophils (Bld) [#/Vol] 0.08 10*3/uL Normal <0.11 [facility] Comment on above: Order Comment: Speci men Type: BLOOD SPECIMEN Ordering Facility: [facility] Address: [address] [place] [address] Performed By: #### 1 4196-0, 43660-0 #### [facility] CLIA [id number] [address] [place] [address] 89785 Basophils/100 WBC (Bld) 0.9 % Normal [facility] Comment on above: Order Comment: Speci men Type: BLOOD SPECIMEN Ordering Facility: [facility] Address: [address] [place] [address] Performed By: #### 1 4196-0, 10903-5 #### [facility] CLIA [id number] [address] [place] [address] 39293 Differential cell count method Nom (Bld) Auto Normal [facility] Comment on above: Order Comment: Speci men Type: BLOOD SPECIMEN Ordering Facility: [facility] Address: [address] [place] [address] Performed By: #### 1 4196-0, 28915-9 #### [facility] CLIA [id number] [address] [place] [address] 68019 Eosinophils (Bld) [#/Vol] 0.52 10*3/uL High <0.46 [facility] Comment on above: Order Comment: Speci men Type: BLOOD SPECIMEN Ordering Facility: [facility] Address: [address] [place], [place] [address] Performed By: #### 1 4196-0, 97662-6 #### [facility] CLIA [id number] [address] [place] [address] 37192 Eosinophils/100 WBC (Bld) 5.8 % Normal [facility] Comment on above: Order Comment: Speci men Type: BLOOD SPECIMEN Ordering Facility: [facility] Address: [address] [place] [address] Performed By: #### 1 4196-0, 15517-9 #### [facility] CLIA [id number] [address] [place] [address] 68067 Erythrocyte distribution width (RBC) [Ratio] 18.0 % High 11.5-15.0 [facility] Comment on above: Order Comment: Speci men Type: BLOOD SPECIMEN Ordering Facility: [facility] Address: [address] [place] [address] Performed By: #### 1 4196-0, 22549-9 #### [facility] CLIA [id number] [address] [place] [address] 63354 Hematocrit (Bld) [Volume fraction] 39.6 % Normal 36.0-46.0 [facility] Comment on above: Order Comment: Speci men Type: BLOOD SPECIMEN Ordering Facility: [facility] Address: [address] [place] [address] Performed By: #### 1 4196-0, 37156-4 #### [facility] CLIA [id number] [address] [place] [address] 47181 Hemoglobin (Bld) [Mass/Vol] 13.0 g/dL Normal 11.5-15.5 [facility] Comment on above: Order Comment: Speci men Type: BLOOD SPECIMEN Ordering Facility: [facility] Address: [address] [place] [address] Performed By: #### 1 4196-0, 58852-3 #### [facility] CLIA [id number] [address] [place] [address] 07547 Immature granulocytes (Bld) [#/Vol] 0.04 10*3/uL Normal <0.10 [facility] Comment on above: Order Comment: Speci men Type: BLOOD SPECIMEN Ordering Facility: [facility] Address: [address] [place] [address] Performed By: #### 1 4196-0, 01161-2 #### [facility] CLIA [id number] [address] [place] [address] 08585 Immature granulocytes/100 WBC (Bld) 0.4 % Normal [facility] Comment on above: Order Comment: Speci men Type: BLOOD SPECIMEN Ordering Facility: [facility] Address: [address] [place] [address] Performed By: #### 1 4196-0, 03943-9 #### [facility] CLIA [id number] [address] [place] [address] 29812 Lymphocytes (Bld) [#/Vol] 3.25 10*3/uL Normal 1.00-4.00 [facility] Comment on above: Order Comment: Speci men Type: BLOOD SPECIMEN Ordering Facility: [facility] Address: [address] [place] [address] Performed By: #### 1 4196-0, 68958-7 #### [facility] CLIA [id number] [address] [place] [address] 53640 Lymphocytes/100 WBC (Bld) 36.3 % Normal [facility] Comment on above: Order Comment: Speci men Type: BLOOD SPECIMEN Ordering Facility: [facility] Address: [address] [place] [address] Performed By: #### 1 4196-0, 33258-1 #### [facility] CLIA [id number] [address] [place] [address] 69722 MCH (RBC) [Entitic mass] 28.3 pg Normal 26.0-34.0 [facility] Comment on above: Order Comment: Speci men Type: BLOOD SPECIMEN Ordering Facility: [facility] Address: [address] [address] Performed By: #### 1 4196-0, 17766-7 #### [facility] CLIA [id number] [address] [place] [address] 68963 MCHC (RBC) [Mass/Vol] 32.8 g/dL Normal 30.5-36.0 [facility] Comment on above: Order Comment: Speci men Type: BLOOD SPECIMEN Ordering Facility: [facility] Address: [address] [address] Performed By: #### 1 4196-0, 24607-0 #### [facility] CLIA [id number] [address] [place] [address] 69197 MCV (RBC) [Entitic vol] 86.1 fL Normal 80.0-100.0 [facility] Comment on above: Order Comment: Speci men Type: BLOOD SPECIMEN Ordering Facility: [facility] Address: [address] [address] Performed By: #### 1 4196-0, 51949-8 #### [facility] CLIA [id number] [address] [place] [address] 95429 Monocytes (Bld) [#/Vol] 1.25 10*3/uL High <0.87 [facility] Comment on above: Order Comment: Speci men Type: BLOOD SPECIMEN Ordering Facility: [facility] Address: [address] [address] Performed By: #### 1 4196-0, 20913-9 #### [facility] CLIA [id number] [address] [place] [address] 02216 Monocytes/100 WBC (Bld) 14.0 % Normal [facility] Comment on above: Order Comment: Speci men Type: BLOOD SPECIMEN Ordering Facility: [facility] Address: [address] [address] Performed By: #### 1 4196-0, 32773-1 #### [facility] CLIA [id number] [address] [place] [address] 79745 Neutrophils (Bld) [#/Vol] 3.81 10*3/uL Normal 1.45-7.50 [facility] Comment on above: Order Comment: Speci men Type: BLOOD SPECIMEN Ordering Facility: [facility] Address: [address] [place] [address] Performed By: #### 1 4196-0, 07158-4 #### [facility] CLIA [id number] [address] [place] [address] 73643 Neutrophils/100 WBC (Bld) 42.6 % Normal [facility] Comment on above: Order Comment: Speci men Type: BLOOD SPECIMEN Ordering Facility: [facility] Address: [address] [place] [address] Performed By: #### 1 4196-0, 09773-6 #### [facility] CLIA [id number] [address] [place] [address] 98464 Nucleated RBC (Bld) [#/Vol] 10*3/uL Normal <0.01 [facility] Comment on above: Order Comment: Speci men Type: BLOOD SPECIMEN Ordering Facility: [facility] Address: [address] [place] [address] Performed By: #### 1 4196-0, 55491-7 #### [facility] CLIA [id number] [address] [place] [address] 77551 Nucleated RBC/100 WBC (Bld) [Ratio] 0.0 /100 WBC Normal [facility] Comment on above: Order Comment: Speci men Type: BLOOD SPECIMEN Ordering Facility: [facility] Address: [address] [place] [address] Performed By: #### 1 4196-0, 51959-7 #### [facility] CLIA [id number] [address] [place] [address] 18686 Platelet mean volume (Bld) [Entitic vol] 9.5 fL Normal 9.0-12.7 [facility] Comment on above: Order Comment: Speci men Type: BLOOD SPECIMEN Ordering Facility: [facility] Address: [address] [address] Performed By: #### 1 4196-0, 75633-2 #### [facility] CLIA [id number] [address] [place] [address] 01806 Platelets (Bld) [#/Vol] 379 10*3/uL Normal 150-400 [facility] Comment on above: Order Comment: Speci men Type: BLOOD SPECIMEN Ordering Facility: [facility] Address: [address] [address] Performed By: #### 1 4196-0, 75452-9 #### [facility] CLIA [id number] [address] [place] [address] 87890 RBC (Bld) [#/Vol] 4.60 10*6/uL Normal 3.90-5.20 [facility] Comment on above: Order Comment: Speci men Type: BLOOD SPECIMEN Ordering Facility: [facility] Address: [address] [address] Performed By: #### 1 4196-0, 28554-6 #### [facility] CLIA [id number] [address] [place] [address] 99805 WBC (Bld) [#/Vol] 8.95 10*3/uL Normal 3.70-11.00 [facility] Comment on above: Order Comment: Speci men Type: BLOOD SPECIMEN Ordering Facility: [facility] Address: [address] [place] [address] Performed By: #### 1 4196-0, 41393-3 #### [facility] CLIA [id number] [address] [place] [address] 15984 CNOVSPon 07-27-2022 CNOVSP Visit (SP) Office ([place]) TANGELA TRINIDAD ([id number]) 1940 F Date Time Provider Department 07/27/22 2:45 PM MAVIS SANTIAGO During your visit today, we recorded the following information about you: Temperature Pulse Respiration Blood pressure 98.1 degrees 64/minute 16/minute 125/72 Weight Height 66.5 kg 1.524 m Mavis Santiago MD 07/27/2022 2:56 PM Signed PATIENT NAME: Tangela Trinidad CLINIC NO.: [id number] ATTENDING PHYSICIAN: Mavis Santiago MD DATE OF [...] Range Status (more content not included)... Normal [facility] Ferritin SerPl-mCncon 2022 Ferritin [Mass/Vol] 104.0 ng/mL Normal 14.7-205.1 [facility] Comment on above: Order Comment: Speci men Type: BLOOD SPECIMEN Ordering Facility[facility] Address: [address] [place] [address] Performed By: #### 5 0190-8, 2276-4 #### [facility] CLIA [id number] [address] [place] [address] [place] Iron and Iron binding capaci ty panelon 07-27-2022 Iron [Mass/Vol] 43 ug/dL Normal 41-186 [facility] Comment on above: Order Comment: Speci men Type: BLOOD SPECIMEN Ordering Facility: [facility] Address: [address] [place] [address] Performed By: #### 5 0190-8, 2276-4 #### [facility] CLIA [id number] [address] [place] [address] [place] Iron binding capacity [Mass/Vol] 265 ug/dL Normal 232-386 [facility] Comment on above: Order Comment: Speci men Type: BLOOD SPECIMEN Ordering Facility: [facility] Address: [address] [place] [address] Performed By: #### 5 0190-8, 2276-4 #### [facility] CLIA [id number] [address] [place] [address] [place] Iron/TIBC [Molar ratio] 16.2 % Normal 15.0-57.0 [facility] Comment on above: Order Comment: Speci men Type: BLOOD SPECIMEN Ordering Facility: [facility] Address: [address] [place] [address] Performed By: #### 5 0190-8, 2276-4 #### [facility] CLIA [id number] [address] [place] [address] [place] Retics #on 07-27-2022 Reticulocytes (Bld) [#/Vol] 0.86859 10*3/uL Normal 0.018-0.100 [facility] Comment on above: Order Comment: Speci men Type: BLOOD SPECIMEN Ordering Facility: [facility] Address: [address] [place] [address] Performed By: #### 1 4196-0, 99553-3 #### [facility] CLIA [id number] [address] [place] [address] 29318 Reticulocytes (Bld) [#/Vol]o n 07-27-2022 Reticulocytes/100 RBC (Bld) 0.9 % Normal 0.4-2.0 [facility] Comment on above: Order Comment: Speci men Type: BLOOD SPECIMEN Ordering Facility: [facility] Address: [address] [place] [address] Performed By: #### 1 4196-0, 54069-3 #### [facility] CLIA [id number] [address] [place] [address] COVID-19 SOFIAOrdered By: Brandy Diaz on 07-22-2022 SARS-CoV+SARS-CoV-2 (COVID-19) Ag IA.rapid Ql (Resp) Negative Negative [facility] Comment on above: This is a duplicate Heidi SARS Antigen (DB) result to be used for statistical tracking purpose only. No Panel InformationOrdered By: Jeyson Diaz on 07-22-2022 SARS Antigen (LFIA) [facility] CNSWon 06-02-2022 CNSW Social Work (HE[place]) TANGELA TRINIDAD ([id number]) 1940 F Date Time Provider Department 06/02/22 [...] - Hives POVIDONE-IODINE 06/21/2019 16 - Unknown KONGNZK-KSE-CWE REDUCTASE INHIBIT*01/05/2018 16 - Unknown SULFA (SULFONAMIDE [...] 112 mcg tablet 0.125 mcg. - CA/D3/MAG OX/ZINC/COOPERAGE SH[employer] SUPERVISOR/MEREDITH/BOR (CALCIUM 600+D3 PLUS ORAL) Take 1,200 mg by mouth once daily. - atenolol (TENORMIN) 25 mg tablet Take 1 tablet by mouth once daily. Problem List As Of Date 06/02/2022 Noted Resolved Anemia [D64.9] 11/15/2014 Iron deficiency [E61.1] 11/15/2014 Encounter Status:Closed by MARCIA RAMIRES [facility]02[facility] TANGEL[facility] TRIN[facility]AD ([id number]) 1940 F Date Time Provider Department 05/25/22 [employer] DAMON HEMTSA During your visit today, we recorded the following information about you: Mohit Lo [facility] [address] 05/25/2022 3:35 PM Signed 1st report of treatment-non oncology regimen (Monoferric) Patient holds Medicare coverage. No FA available at this time. Allergies As of Date: 05/25/2022 Noted Allergy Reaction CEPHALOSPORINS 10/23/2014 16 - Unknown MACRODANTIN (NITROFURANTOIN MACRO*10/11/2018 2 - Rash 9 - Itching PENICILLINS 11/15/2014 4 - Hives POVIDONE-IODINE 06/21/2019 16 - Unknown DKVAHNL-PNQ-CLL REDUCTASE INHIBIT*01/05/2018 16 - Unknown SULFA (SULFONAMIDE [...] 112 mcg tablet 0.125 mcg. - CA/D3/MAG OX/ZINC/COOPERAGE SHOP SUPERVISOR/MEREDITH/BOR (CALCIUM 600+D3 PLUS ORAL) Take 1,200 mg [...] Encounter Status:Closed by MOHIT SANTOS on 05/25/22 [facility] CNOVSPon 05-18-2022 CNOVSP Visit (SP) Office ([place]) TANGELA TRINIDAD ([id number]) 1940 F Date Time Provider Department 05/18/22 4:00 PM MAVIS SANTIAGO During your visit today, we recorded the following information about you: Temperature Pulse Respiration Blood pressure 98.1 degrees 78/minute 16/minute 122/78 Weight 68 kg Mavis Santiago MD 05/18/2022 4:08 PM Signed PATIENT NAME: Tangela Trinidad CLINIC NO.: [id number] ATTENDING PHYSICIAN: Mavis Santiago MD DATE OF [...] Range Status (more content not included)... Normal [facility] IMMUNOFIXATION(ELISE),PROTEIN ELEC(PE),[facility] 05-06-2022 Albumin [Mass/Vol] 2.9 g/dL Normal 2.9-4.4 [facility] Comment on above: Performed By: #### I FEPEFL #### [facility] [address] [place] [address] Dr. Yayo Gregg Albumin/Globulin [Mass ratio] 1.2 {ratio} Normal 0.7-1.7 [facility] Comment on above: Performed By: #### I FEPEFL #### [facility] [address] [place] [address] Dr. Yayo Gregg Erdyw-6-Aeqxxbms 0.3 g/dL Normal 0.0-0.4 [facility] Comment on above: Performed By: #### I FEPEFL #### [facility] [address] [place] [address] Dr. Yayo Gregg Erqlo-3-Bdinqyux 0.7 g/dL Normal 0.4-1.0 [facility] Comment on above: Performed By: #### I FEPEFL #### [facility] [address] [address] [address] Yayo Gregg Beta Globulin 0.9 g/dL Normal 0.7-1.3 [facility] Comment on above: Performed By: #### I FEPEFL #### [facility] [address] [address] [address] Yayo Gregg Free Orting Lt Chains,S 39.9 mg/L Critically high 3.3-19.4 [facility] Comment on above: Performed By: #### I FEPEFL #### [facility] [address] [address] [address] Yayo Gregg Free Lambda Lt Chains,S 22.7 mg/L Normal 5.7-26.3 [facility] Comment on above: Performed By: #### I FEPEFL #### [facility] [address] [address] [address] Yayo Gregg Gamma Globulin 0.6 g/dL Normal 0.4-1.8 [facility] Comment on above: Performed By: #### I FEPEFL #### [facility] [address] [address] [address] Yayo Gregg Globulin (S) [Mass/Vol] 2.6 g/dL Normal 2.2-3.9 [facility] Comment on above: Performed By: #### I FEPEFL #### [facility] [address] [address] [address] Yayo Gregg Immunofixation Result, Serum Comment Normal [facility] Comment on above: Result Comment: No m onoclonality detected. Performed By: #### I FEPEFL #### [facility] [address] [address] [address] Yayo Gregg Immunoglobulin A, Qn, Serum 81 mg/dL Normal 64-422 [facility] Comment on above: Performed By: #### I FEPEFL #### [facility] [address] [address] [address] Yayo Gregg Immunoglobulin G, Qn, Serum 547 mg/dL Critically low 586-1602 [facility] Comment on above: Performed By: #### I FEPEFL #### [facility] [address] [address] [address] Yayo Gregg Immunoglobulin M, Qn, Serum 92 mg/dL Normal 26-217 [facility] Comment on above: Performed By: #### I FEPEFL #### [facility] [address] [address] [address] Yayo Gregg Orting/Lambda Ratio, S 1.76 Critically high 0.26-1.65 [facility] Comment on above: Performed By: #### I FEPEFL #### [facility] [address] [place] [address] Dr. Yayo Gregg M-Johan Not Observed Normal Not Observed [facility] Comment on above: Performed By: #### I FEPEFL #### [facility] [address] [place] [address] Dr. Yayo Gregg PDF . Normal [facility] Comment on above: Performed By: #### I FEPEFL #### [facility] [address] [place] [address] Dr. Yayo Gregg Please note: Comment Normal [facility] Comment on above: Result Comment: Prot ein electrophoresis scan will follow via computer, mail, or parking analyst delivery. Performed By: #### I FEPEFL #### [facility] [address] [address] [address] Yayo Gregg Protein [Mass/Vol] 5.5 g/dL Critically low 6.0-8.5 [facility] Comment on above: Performed By: #### I FEPEFL #### [facility] [address] [place] [address] Dr. Yayo Gregg IMMUNOGLOBULINS IGA/IGM/IGG QUANTITATIVEon 05-05-2022 Immunoglobulin A, Qn, Serum 83 mg/dL Normal 64-422 [facility] Comment on above: Performed By: #### I MMUNGL #### [facility] [address] [address] [address] Yayo Gregg Immunoglobulin G, Qn, Serum 559 mg/dL Critically low 586-1602 [facility] Comment on above: Performed By: #### I MMUNGL #### [facility] [address] [place] [address] Dr. Yayo Gregg Immunoglobulin M, Qn, Serum 93 mg/dL Normal 26-217 [facility] Comment on above: Performed By: #### I MMUNGL #### [facility] [address] [place] [address] Dr. Yayo Gregg CBC AUTO DIFFon 05-04-2022 BASO # 0.1 103/ul Normal 0.0-0.1 [facility] Comment on above: Performed By: #### I MMUNGL #### [facility] [address] [place] [address] Dr. Yayo Gregg Basophils/100 WBC (Bld) 0.9 % Normal 0.2-2.0 [facility] Comment on above: Performed By: #### I MMUNGL #### [facility] [address] [place] [address] Dr. Yayo Gregg EO # 0.7 103/ul Normal 0.0-0.7 [facility] Comment on above: Performed By: #### I MMUNGL #### [facility] [address] [place] [address] Dr. Yayo Gregg Eosinophils/100 WBC (Bld) 6.7 % Normal 0.9-7.0 [facility] Comment on above: Performed By: #### I MMUNGL #### [facility] [address] [place] [address] Dr. Yayo Gregg Erythrocyte distribution width (RBC) [Ratio] 15.6 % Critically high 11.0-15.0 [facility] Comment on above: Performed By: #### I MMUNGL #### [facility] [address] [place] [address] Dr. Yayo Gregg Hematocrit (Bld) [Volume fraction] 31.3 % Critically low 36.0-48.0 [facility] Comment on above: Performed By: #### I MMUNGL #### [facility] [address] [address] [address] Yayo Gregg Hemoglobin (Bld) [Mass/Vol] 10.0 g/dL Critically low 12.0-16.0 [facility] Comment on above: Performed By: #### I MMUNGL #### [facility] [address] [place] [address] Dr. Yayo Gregg IG # 0.04 10e3/ul Critically high 0.00-0.03 [facility] Comment on above: Performed By: #### I MMUNGL #### [facility] [address] [place] [address] Dr. Yaoy Gregg IG % 0.4 % Normal 0.0-0.5 [facility] Comment on above: Performed By: #### I MMUNGL #### [facility] [address] [place] [address] Dr. Yayo Gregg LYMPH # 2.9 103/ul Normal 1.2-3.8 [facility] Comment on above: Performed By: #### I MMUNGL #### [facility] [address] [place] [address] Dr. Yayo Gregg Lymphocytes/100 WBC (Bld) 29.6 % Normal 20.5-60.0 [facility] Comment on above: Performed By: #### I MMUNGL #### [facility] [address] [place] [address] Dr. Yayo Gregg MANUAL DIFF REQ NO Normal [facility] Comment on above: Performed By: #### I MMUNGL #### [facility] [address] [place] [address] Dr. Yayo Gregg MCH (RBC) [Entitic mass] 25.7 pg Critically low 26.7-34.0 [facility] Comment on above: Performed By: #### I MMUNGL #### [facility] [address] [place] [address] Dr. Yayo Gregg MCHC (RBC) [Mass/Vol] 31.9 g/dL Normal 29.9-35.2 [facility] Comment on above: Performed By: #### I MMUNGL #### [facility] [address] [place] [address] Dr. Yayo Gregg MCV (RBC) [Entitic vol] 80.5 fL Critically low 81.0-99.0 [facility] Comment on above: Performed By: #### I MMUNGL #### [facility] [address] [place] [address] Dr. Yayo Gregg MONO # 1.4 103/ul Critically high 0.3-0.8 [facility] Comment on above: Performed By: #### I MMUNGL #### [facility] [address] [place] [address] Dr. Yayo Gregg Monocytes/100 WBC (Bld) 14.5 % Critically high 1.7-12.0 [facility] Comment on above: Performed By: #### I MMUNGL #### [facility] [address] [place] [address] Dr. Yayo Gregg NEUT # 4.7 103/ul Normal 1.4-6.5 [facility] Comment on above: Performed By: #### I MMUNGL #### [facility] [address] [place] [address] Dr. Yayo Gregg Neutrophils/100 WBC (Bld) 47.9 % Normal 43.0-75.0 [facility] Comment on above: Performed By: #### I MMUNGL #### [facility] [address] [place] [address] Dr. Yayo Gregg Platelet mean volume (Bld) [Entitic vol] 9.5 fL Normal 9.5-13.5 [facility] Comment on above: Performed By: #### I MMUNGL #### [facility] [address] [place] [address] Dr. Yayo Gregg PLT 457 103/ul Critically high 150-450 [facility] Comment on above: Performed By: #### I MMUNGL #### [facility] [address] [place] [address] Dr. Yayo Gregg RBC 3.89 106/ul Critically low 4.20-5.40 [facility] Comment on above: Performed By: #### I MMUNGL #### [facility] [address] [place] [address] Dr. Yayo Gregg WBC 9.8 103/ul Normal 4.0-11.0 [facility] Comment on above: Performed By: #### I MMUNGL #### [facility] [address] [place] [address] Dr. Yayo Gregg FERRITINon 05-04-2022 Ferritin [Mass/Vol] 20.0 ng/mL Normal 8.0-252.0 [facility] Comment on above: Performed By: #### F ERR, FETIBC #### [facility] [address] [place] [address] Dr. Yayo Gregg IRON AND TIBCon 05-04-2022 % SATURATION 5.7 % Normal [facility] Comment on above: Performed By: #### F ERR, FETIBC #### [facility] [address] [place] [address] Dr. Yayo Gregg Iron [Mass/Vol] 18.0 ug/dL Critically low 50.0-170.0 [facility] Comment on above: Performed By: #### F ERR, FETIBC #### [facility] [address] [place] [address] Dr. Yayo Gregg TIBC DIRECT 318.0 ug/dL Normal 250.0-450.0 [facility] Comment on above: Performed By: #### F ERR, FETIBC #### [facility] [address] [place] [address] Dr. Yayo Gregg PROF CHEM 8 (BAS METB)on Anion gap [Moles/Vol] 11.7 mmol/L Normal [facility] Comment on above: Performed By: #### I MMUNGL #### [facility] [address] [place] [address] Dr. Yayo Gregg Calcium [Mass/Vol] 8.1 mg/dL Critically low 8.5-10.1 [facility] Comment on above: Performed By: #### I MMUNGL #### [facility] [address] [address] [address] Yayo Gregg Chloride [Moles/Vol] 100 mmol/L Normal 98-107 [facility] Comment on above: Performed By: #### I MMUNGL #### [facility] [address] [address] [address] Yayo Gregg CO2 [Moles/Vol] 25.7 mmol/L Normal 21.0-32.0 [facility] Comment on above: Performed By: #### I MMUNGL #### [facility] [address] [address] [address] Yayo Gregg Creatinine [Mass/Vol] 1.06 mg/dL Critically high 0.55-1.02 [facility] Comment on above: Performed By: #### I MMUNGL #### [facility] [address] [place] [address] Dr. Yayo Gregg EGFR-AF [place]I =60 Normal >=60 [facility] Comment on above: Performed By: #### I MMUNGL #### [facility] [address] [address] [address] Yayo Gregg EGFR-NON AF [place]I 49 mL/min/1.73m2 Critically low >=60 [facility] Comment on above: Performed By: #### I MMUNGL #### [facility] [address] [address] [address] Yayo Gregg Glucose [Mass/Vol] 121 mg/dL Critically high 74-106 [facility] Comment on above: Performed By: #### I MMUNGL #### [facility] [address] [address] [address] Yayo Gregg Potassium [Moles/Vol] 4.4 mmol/L Normal 3.5-5.1 [facility] Comment on above: Performed By: #### I MMUNGL #### [facility] [address] [address] [address] Yayo Gregg Sodium [Moles/Vol] 133 mmol/L Critically low 136-145 [facility] Comment on above: Performed By: #### I MMUNGL #### [facility] [address] [place] [address] Dr. Yayo Gregg Urea nitrogen [Mass/Vol] 16.0 mg/dL Normal 7.0-18.0 [facility] Comment on above: Performed By: #### I MMUNGL #### [facility] [address] [place] [address] Dr. Yayo Gregg Urea nitrogen/Creatinine [Mass ratio] 15.1 mg/mg Normal [facility] Comment on above: Performed By: #### I MMUNGL #### [facility] [address] [place] [address] Dr. Yayo Gregg T PROTEIN SERUMon 05-04-2022 Protein [Mass/Vol] 6.0 g/dL Critically low 6.4-8.2 [facility] Comment on above: Performed By: #### I MMUNGL #### [facility] [address] [place] [address] Dr. Yayo Gregg TSHon 05-04-2022 TSH 1.715 uIU/mL Normal 0.358-3.740 [facility] Comment on above: Performed By: #### I MMUNGL #### [facility] [address] [place] [address] Dr. Yayo Gregg CBC AUTO DIFFon 03-26-2022 BASO # 0.1 103/ul Normal 0.0-0.1 [facility] Comment on above: Performed By: #### C BC #### [facility] [address] [place] [address] Dr. Yayo Gregg Basophils/100 WBC (Bld) 1.0 % Normal 0.2-2.0 [facility] Comment on above: Performed By: #### C BC #### [facility] [address] [place] [address] Dr. Yayo Gregg EO # 0.8 103/ul Critically high 0.0-0.7 [facility] Comment on above: Performed By: #### C BC #### [facility] [address] [place] [address] Dr. Yayo Gregg Eosinophils/100 WBC (Bld) 7.6 % Critically high 0.9-7.0 [facility] Comment on above: Performed By: #### C BC #### [facility] [address] [place] [address] Dr. Yayo Gregg Erythrocyte distribution width (RBC) [Ratio] 15.1 % Critically high 11.0-15.0 [facility] Comment on above: Performed By: #### C BC #### [facility] [address] [place] [address] Dr. Yayo Gregg Hematocrit (Bld) [Volume fraction] 32.0 % Critically low 36.0-48.0 [facility] Comment on above: Performed By: #### C BC #### [facility] [address] [place] [address] Dr. Yayo Gregg Hemoglobin (Bld) [Mass/Vol] 10.4 g/dL Critically low 12.0-16.0 [facility] Comment on above: Performed By: #### C BC #### [facility] [address] [place] [address] Dr. Yayo Gregg IG # 0.05 10e3/ul Critically high 0.00-0.03 [facility] Comment on above: Performed By: #### C BC #### [facility] [address] [place] [address] Dr. Yayo Gregg IG % 0.5 % Normal 0.0-0.5 [facility] Comment on above: Performed By: #### C BC #### [facility] [address] [place] [address] Dr. Yayo Gregg LYMPH # 2.9 103/ul Normal 1.2-3.8 [facility] Comment on above: Performed By: #### C BC #### [facility] [address] [place] [address] Dr. Yayo Gregg Lymphocytes/100 WBC (Bld) 27.7 % Normal 20.5-60.0 [facility] Comment on above: Performed By: #### C BC #### [facility] [address] [place] [address] Dr. Yayo Gregg MANUAL DIFF REQ NO Normal [facility] Comment on above: Performed By: #### C BC #### [facility] [address] [place] [address] Dr. Yayo Gregg MCH (RBC) [Entitic mass] 26.5 pg Critically low 26.7-34.0 [facility] Comment on above: Performed By: #### C BC #### [facility] [address] [place] [address] Dr. Yayo Gregg MCHC (RBC) [Mass/Vol] 32.5 g/dL Normal 29.9-35.2 [facility] Comment on above: Performed By: #### C BC #### [facility] [address] [place] [address] Dr. Yayo Gregg MCV (RBC) [Entitic vol] 81.4 fL Normal 81.0-99.0 [facility] Comment on above: Performed By: #### C BC #### [facility] [address] [place] [address] Dr. Yayo Gregg MONO # 1.3 103/ul Critically high 0.3-0.8 [facility] Comment on above: Performed By: #### C BC #### [facility] [address] [place] [address] Dr. Yayo Gregg Monocytes/100 WBC (Bld) 12.5 % Critically high 1.7-12.0 [facility] Comment on above: Performed By: #### C BC #### [facility] [address] [place] [address] Dr. Yayo Gregg NEUT # 5.2 103/ul Normal 1.4-6.5 [facility] Comment on above: Performed By: #### C BC #### [facility] [address] [place] [address] Dr. Yayo Gregg Neutrophils/100 WBC (Bld) 50.7 % Normal 43.0-75.0 [facility] Comment on above: Performed By: #### C BC #### [facility] [address] [place] [address] Dr. Yayo Gregg Platelet mean volume (Bld) [Entitic vol] 9.6 fL Normal 9.5-13.5 [facility] Comment on above: Performed By: #### C BC #### [facility] [address] [place] [address] Dr. Yayo Gregg PLT 409 103/ul Normal 150-450 [facility] Comment on above: Performed By: #### C BC #### [facility] [address] [place] [address] Dr. Yayo Gregg RBC 3.93 106/ul Critically low 4.20-5.40 [facility] Comment on above: Performed By: #### C BC #### [facility] [address] [place] [address] Dr. Yayo Gregg WBC 10.3 103/ul Normal 4.0-11.0 [facility] Comment on above: Performed By: #### C BC #### [facility] [address] [place] [address] Dr. Yayo Gregg FERRITINon 03-26-2022 Ferritin [Mass/Vol] 22.0 ng/mL Normal 8.0-252.0 [facility] Comment on above: Performed By: #### I MMUNGL #### [facility] [address] [place] [address] Dr. Yayo Gregg CBC AUTO DIFFon 02-09-2022 BASO # 0.1 103/ul Normal 0.0-0.1 [facility] Comment on above: Performed By: #### C BC #### [facility] [address] [place] [address] Dr. Yayo Gregg Basophils/100 WBC (Bld) 0.7 % Normal 0.2-2.0 [facility] Comment on above: Performed By: #### C BC #### [facility] [address] [place] [address] Dr. Yayo Gregg EO # 0.9 103/ul Critically high 0.0-0.7 [facility] Comment on above: Performed By: #### C BC #### [facility] [address] [place] [address] Dr. Yayo Gregg Eosinophils/100 WBC (Bld) 7.5 % Critically high 0.9-7.0 [facility] Comment on above: Performed By: #### C BC #### [facility] [address] [place] [address] Dr. Yayo Gregg Erythrocyte distribution width (RBC) [Ratio] 15.1 % Critically high 11.0-15.0 [facility] Comment on above: Performed By: #### C BC #### [facility] [address] [place] [address] Dr. Yayo Gregg Hematocrit (Bld) [Volume fraction] 32.5 % Critically low 36.0-48.0 [facility] Comment on above: Performed By: #### C BC #### [facility] [address] [place] [address] Dr. Yayo Gregg Hemoglobin (Bld) [Mass/Vol] 10.9 g/dL Critically low 12.0-16.0 [facility] Comment on above: Performed By: #### C BC #### [facility] [address] [place] [address] Dr. Yayo Gregg IG # 0.16 10e3/ul Critically high 0.00-0.03 [facility] Comment on above: Performed By: #### C BC #### [facility] [address] [place] [address] Dr. Yayo Gregg IG % 1.3 % Critically high 0.0-0.5 [facility] of [facility] Comment on above: Performed By: #### C BC #### [facility] [address] [place] [address] Dr. Yayo Gregg LYMPH # 2.9 103/ul Normal 1.2-3.8 [facility] Comment on above: Performed By: #### C BC #### [facility] [address] [place] [address] Dr. Yayo Gregg Lymphocytes/100 WBC (Bld) 24.0 % Normal 20.5-60.0 [facility] Comment on above: Performed By: #### C BC #### [facility] [address] [place] [address] Dr. Yayo Gregg MANUAL DIFF REQ NO Normal [facility] Comment on above: Performed By: #### C BC #### [facility] [address] [place] [address] Dr. Yayo Gregg MCH (RBC) [Entitic mass] 27.2 pg Normal 26.7-34.0 [facility] Comment on above: Performed By: #### C BC #### [facility] [address] [place] [address] Dr. Yayo Gregg MCHC (RBC) [Mass/Vol] 33.5 g/dL Normal 29.9-35.2 [facility] Comment on above: Performed By: #### C BC #### [facility] [address] [place] [address] Dr. Yayo Gregg MCV (RBC) [Entitic vol] 81.0 fL Normal 81.0-99.0 [facility] Comment on above: Performed By: #### C BC #### [facility] [address] [place] [address] Dr. Yayo Gregg MONO # 1.6 103/ul Critically high 0.3-0.8 [facility] Comment on above: Performed By: #### C BC #### [facility] [address] [place] [address] Dr. Yayo Gregg Monocytes/100 WBC (Bld) 13.4 % Critically high 1.7-12.0 [facility] Comment on above: Performed By: #### C BC #### [facility] [address] [place] [address] Dr. Yayo Gregg NEUT # 6.3 103/ul Normal 1.4-6.5 [facility] Comment on above: Performed By: #### C BC #### [facility] [address] [place] [address] Dr. Yayo Gregg Neutrophils/100 WBC (Bld) 53.1 % Normal 43.0-75.0 [facility] Comment on above: Performed By: #### C BC #### [facility] [address] [place] [address] Dr. Yayo Gregg Platelet mean volume (Bld) [Entitic vol] 9.4 fL Critically low 9.5-13.5 [facility] Comment on above: Performed By: #### C BC #### [facility] [address] [place] [address] Dr. Yayo Gregg PLT 426 103/ul Normal 150-450 [facility] Comment on above: Performed By: #### C BC #### [facility] [address] [place] [address] Dr. Yayo Gregg RBC 4.01 106/ul Critically low 4.20-5.40 [facility] Comment on above: Performed By: #### C BC #### [facility] [address] [place] [address] Dr. Yayo Gregg WBC 11.9 103/ul Critically high 4.0-11.0 [facility] Comment on above: Performed By: #### C BC #### [facility] [address] [place] [address] Dr. Yayo Gregg FERRITINon 02-09-2022 Ferritin [Mass/Vol] 36.0 ng/mL Normal 8.0-252.0 [facility] Comment on above: Performed By: #### V ITB12, FETIBC, FERR #### [facility] [address] [place] [address] Dr. Yayo Gregg IRON AND TIBCon 02-09-2022 % SATURATION 5.2 % Normal [facility] Comment on above: Performed By: #### V ITB12, FETIBC, FERR #### [facility] [address] [place] [address] Dr. Yayo Gregg Iron [Mass/Vol] 16.0 ug/dL Critically low 50.0-170.0 [facility] Comment on above: Performed By: #### V ITB12, FETIBC, FERR #### [facility] [address] [place] [address] Dr. Yayo Gregg TIBC DIRECT 305.0 ug/dL Normal 250.0-450.0 [facility] Comment on above: Performed By: #### V ITB12, FETIBC, FERR #### [facility] [address] [place] [address] Dr. Yayo Gregg VITAMIN B12on 02-09-2022 Cobalamin (Vitamin B12) [Mass/Vol] 819.0 pg/mL Normal 193.0-986.0 [facility] Comment on above: Performed By: #### V ITB12, FETIBC, FERR #### [facility] [address] [place] [address] Dr. Yayo Gregg BNPon 01-27-2022 Natriuretic peptide B (Bld) [Mass/Vol] 270.0 pg/mL Normal <=1,800.0 [facility] Comment on above: Performed By: #### I MMUNGL #### [facility] [address] [place] [address] Dr. Yayo Gregg CARDIAC TARAN ADMITon 022 CK [Catalytic activity/Vol] 143 U/L Normal 26-192 [facility] Comment on above: Performed By: #### I MMUNGL #### [facility] [address] [place] [address] Dr. Yayo Gregg CK.MB [Mass/Vol] 2.66 ng/mL Normal <=3.60 [facility] Comment on above: Performed By: #### I MMUNGL #### [facility] [address] [place] [address] Dr. Yayo Gregg HSTROP 4.0 pg/mL Normal 4.0-51.3 [facility] Comment on above: Result Comment: CUT- OFF POINTS HAVE BEEN ESTABLISHED BASED ON THE FOURTH UNIVERSAL DEFINITIONS OF MYOCARDIAL INFARCTION. THE UPPER REFERENCE LIMIT (URL) OF TROPONIN, DEFINED THE 99TH PERCENTILE OF cTnI DISTRIBUTION IN A REFERENCE POPULATION, HAS BEEN CONFIRMED THE DECISION THRESHOLD FOR CA DIAGNOSIS. Performed By: #### I MMUNGL #### [facility] [address] [place] [address] Dr. Yayo Gregg CARA 113 ng/mL Critically high 9-82 [facility] Comment on above: Performed By: #### I MMUNGL #### [facility] [address] [place] [address] Dr. Yayo Gregg CBC AUTO DIFFon 01-27-2022 BASO # 0.1 103/ul Normal 0.0-0.1 [facility] Comment on above: Performed By: #### C BC #### [facility] [address] [address] [address] Yayo Gregg Basophils/100 WBC (Bld) 0.7 % Normal 0.2-2.0 [facility] Comment on above: Performed By: #### C BC #### [facility] [address] [address] [address] Yayo Gregg EO # 1.1 103/ul Critically high 0.0-0.7 [facility] Comment on above: Performed By: #### C BC #### [facility] [address] [place] [address] Dr. Yayo Gregg Eosinophils/100 WBC (Bld) 7.3 % Critically high 0.9-7.0 [facility] Comment on above: Performed By: #### C BC #### [facility] [address] [place] [address] Dr. Yayo Gregg Erythrocyte distribution width (RBC) [Ratio] 13.8 % Normal 11.0-15.0 [facility] Comment on above: Performed By: #### C BC #### [facility] [address] [place] [address] Dr. Yayo Gregg Hematocrit (Bld) [Volume fraction] 34.4 % Critically low 36.0-48.0 [facility] Comment on above: Performed By: #### C BC #### [facility] [address] [place] [address] Dr. Yayo Gregg Hemoglobin (Bld) [Mass/Vol] 11.3 g/dL Critically low 12.0-16.0 [facility] Comment on above: Performed By: #### C BC #### [facility] [address] [place] [address] Dr. Yayo Gregg IG # 0.09 10e3/ul Critically high 0.00-0.03 [facility] Comment on above: Performed By: #### C BC #### [facility] [address] [place] [address] Dr. Yayo Gregg IG % 0.6 % Critically high 0.0-0.5 [facility] Comment on above: Performed By: #### C BC #### [facility] [address] [place] [address] Dr. Yayo Gregg LYMPH # 2.5 103/ul Normal 1.2-3.8 [facility] Comment on above: Performed By: #### C BC #### [facility] [address] [place] [address] Dr. Yayo Gregg Lymphocytes/100 WBC (Bld) 16.6 % Critically low 20.5-60.0 [facility] Comment on above: Performed By: #### C BC #### [facility] [address] [place] [address] Dr. Yayo Gregg MANUAL DIFF REQ NO Normal [facility] Comment on above: Performed By: #### C BC #### [facility] [address] [place] [address] Dr. Yayo Gregg MCH (RBC) [Entitic mass] 26.7 pg Normal 26.7-34.0 [facility] Comment on above: Performed By: #### C BC #### [facility] [address] [place] [address] Dr. Yayo Gregg MCHC (RBC) [Mass/Vol] 32.8 g/dL Normal 29.9-35.2 [facility] Comment on above: Performed By: #### C BC #### [facility] [address] [place] [address] Dr. Yayo Gregg MCV (RBC) [Entitic vol] 81.1 fL Normal 81.0-99.0 [facility] Comment on above: Performed By: #### C BC #### [facility] [address] [place] [address] Dr. Yayo Gregg MONO # 2.1 103/ul Critically high 0.3-0.8 [facility] Comment on above: Performed By: #### C BC #### [facility] [address] [place] [address] Dr. Yayo Gregg Monocytes/100 WBC (Bld) 14.0 % Critically high 1.7-12.0 [facility] Comment on above: Performed By: #### C BC #### [facility] [address] [place] [address] Dr. Yayo Gregg NEUT # 9.1 103/ul Critically high 1.4-6.5 [facility] Comment on above: Performed By: #### C BC #### [facility] [address] [place] [address] Dr. Yayo Gregg Neutrophils/100 WBC (Bld) 60.8 % Normal 43.0-75.0 [facility] Comment on above: Performed By: #### C BC #### [facility] [address] [place] [address] Dr. Yayo Gregg Platelet mean volume (Bld) [Entitic vol] 10.2 fL Normal 9.5-13.5 [facility] Comment on above: Performed By: #### C BC #### [facility] [address] [place] [address] Dr. Yayo Gregg PLT 455 103/ul Critically high 150-450 [facility] Comment on above: Performed By: #### C BC #### [facility] [address] [place] [address] Dr. Yayo Gregg RBC 4.24 106/ul Normal 4.20-5.40 [facility] Comment on above: Performed By: #### C BC #### [facility] [address] [place] [address] Dr. Yayo Gregg WBC 14.9 103/ul Critically high 4.0-11.0 [facility] Comment on above: Performed By: #### C BC #### [facility] [address] [place] [address] Dr. Yayo Gregg [facility] SARS-CoV-2 (COVID-19) RNA CHANTALE+probe Ql (Unsp spec) Not detected Normal NOT DETECTED [facility] Comment on above: Result Comment: When [...] for this test is supported by the [employer] of Health and Human Service's declaration that [...] used). Performed By: #### C BC #### [facility] [address] [place] [address] Dr. Yayo Gregg PROF 14(COMP METB)on 022 Albumin [Mass/Vol] 3.0 g/dL Critically low 3.4-5.0 [facility] Comment on above: Performed By: #### I MMUNGL #### [facility] [address] [place] [address] Dr. Yayo Gregg Albumin/Globulin [Mass ratio] 0.9 {ratio} Normal [facility] Comment on above: Performed By: #### I MMUNGL #### [facility] [address] [place] [address] Dr. Yayo Gregg ALP [Catalytic activity/Vol] 95 U/L Normal 46-116 [facility] Comment on above: Performed By: #### I MMUNGL #### [facility] [address] [place] [address] Dr. Yayo Gregg ALT [Catalytic activity/Vol] 28 U/L Normal 14-59 [facility] Comment on above: Performed By: #### I MMUNGL #### [facility] [address] [place] [address] Dr. Yayo Gregg Anion gap [Moles/Vol] 11.9 mmol/L Normal [facility] Comment on above: Performed By: #### I MMUNGL #### [facility] [address] [address] [address] Yayo Gregg AST [Catalytic activity/Vol] 24 U/L Normal 15-37 [facility] Comment on above: Performed By: #### I MMUNGL #### [facility] [address] [address] [address] Yayo Gregg Bilirubin [Mass/Vol] 0.3 mg/dL Normal 0.2-1.0 [facility] Comment on above: Performed By: #### I MMUNGL #### [facility] [address] [address] [address] Yayo Gregg Calcium [Mass/Vol] 8.8 mg/dL Normal 8.5-10.1 [facility] Comment on above: Performed By: #### I MMUNGL #### [facility] [address] [place] [address] Dr. Yayo Gregg Chloride [Moles/Vol] 98 mmol/L Normal 98-107 [facility] Comment on above: Performed By: #### I MMUNGL #### [facility] [address] [address] [address] Yayo Gregg CO2 [Moles/Vol] 24.6 mmol/L Normal 21.0-32.0 [facility] Comment on above: Performed By: #### I MMUNGL #### [facility] [address] [address] [address] Yayo Gregg Creatinine [Mass/Vol] 0.91 mg/dL Normal 0.55-1.02 [facility] Comment on above: Performed By: #### I MMUNGL #### [facility] [address] [address] [address] Yaoy Gregg EGFR-AF KU[place]I >60 Normal >=60 [facility] Comment on above: Performed By: #### I MMUNGL #### [facility] [address] [address] [address] Yayo Gregg EGFR-NON AF [place]I 59 mL/min/1.73m2 Critically low >=60 [facility] Comment on above: Performed By: #### I MMUNGL #### [facility] [address] [address] [address] Yayo Gregg Globulin (S) [Mass/Vol] 3.3 g/dL Normal [facility] Comment on above: Performed By: #### I MMUNGL #### [facility] [address] [address] [address] Yayo Gregg Glucose [Mass/Vol] 95 mg/dL Normal 74-106 [facility] Comment on above: Performed By: #### I MMUNGL #### [facility] [address] [place] [address] Dr. Yayo Gregg Potassium [Moles/Vol] 4.5 mmol/L Normal 3.5-5.1 [facility] Comment on above: Performed By: #### I MMUNGL #### [facility] [address] [place] [address] Dr. Yayo Gregg Protein [Mass/Vol] 6.3 g/dL Critically low 6.4-8.2 [facility] Comment on above: Performed By: #### I MMUNGL #### [facility] [address] [place] [address] Dr. Yayo Gregg Sodium [Moles/Vol] 130 mmol/L Critically low 136-145 [facility] Comment on above: Performed By: #### I MMUNGL #### [facility] [address] [place] [address] Dr. Yayo Gregg Urea nitrogen [Mass/Vol] 12.0 mg/dL Normal 7.0-18.0 [facility] Comment on above: Performed By: #### I MMUNGL #### [facility] [address] [place] [address] Dr. Yayo Gregg Urea nitrogen/Creatinine [Mass ratio] 13.2 mg/mg Normal [facility] Comment on above: Performed By: #### I MMUNGL #### [facility] [address] [place] [address] Dr. Yayo Gregg PROTIMEon 01-27-2022 INR Coag (PPP) [Relative time] 0.96 {INR} Normal [facility] Comment on above: Performed By: #### I MMUNGL #### [facility] [address] [place] [address] Dr. Yayo Gregg INR GUIDELINES SEE BELOW Normal [facility] Comment on above: Result Comment: ASHLEY RED INR: 2.0 - 3.0 CONDITIONS NOT LISTED BELOW 2.5 - 3.5 FOR PROSTHETIC HEART VALVE REPLACEMENT 2.5 - 3.5 RECURRENT THROMBOSIS Performed By: #### I MMUNGL #### [facility] [address] [address] [address] Yayo Gregg PT Coag (PPP) [Time] 10.4 s Normal 9.0-11.6 [facility] Comment on above: Performed By: #### I MMUNGL #### [facility] [address] [place] [address] Dr. Yayo Gregg PTTon 01-27-2022 aPTT Coag (Bld) [Time] 31.6 s Normal 22.3-36.2 [facility] Comment on above: Performed By: #### I MMUNGL #### [facility] [address] [place] [address] Dr. aYyo Gregg TROPONIN, HIGH SENSITIVITYon 01-27-2022 HSTROP 4.7 pg/mL Normal 4.0-51.3 [facility] Comment on above: Result Comment: CUT- OFF POINTS HAVE BEEN ESTABLISHED BASED ON THE FOURTH UNIVERSAL DEFINITIONS OF MYOCARDIAL INFARCTION. THE UPPER REFERENCE LIMIT (URL) OF TROPONIN, DEFINED THE 99TH PERCENTILE OF cTnI DISTRIBUTION IN A REFERENCE POPULATION, HAS BEEN CONFIRMED THE DECISION THRESHOLD FOR CA DIAGNOSIS. Performed By: #### H STROPN #### [facility] [address] [place] [address] Dr. Yayo Gregg XR CHEST 1 Von [...] by: ANTHONY GUIDRY Date: 2022-01-27 11:47 Normal [facility] XR LSPINE 2_3 VIEWSon 2021 XR [...] by: BENJAMIN GUNN Date: 2021-12-18 14:19 Normal [facility] BASIC METABOLIC PANEL(BMP)on 01-06-2018 Anion gap 12 mmol/L Normal 9-[address] [facility] Comment on above: Performed By: #### C AMANDA SHERIFFCGR ####MAIN LABCLIA:[id number] [place] [address] BUN (urea nitrogen) 17 mg/dL Normal 8-[address] [facility] Comment on above: Performed By: #### Yaquelin RUFFCBCGR ####MAIN LABCLIA:[id number] [place] [address] BUN/Creatinine Ratio 22.1 mg/mg Normal [facility] Comment on above: Performed By: #### Yaquelin RUFFCBCGR ####MAIN LABCLIA:[id number] [place] [address] Calcium 7.9 mg/dL Low 8.8-10.[address] [facility] Comment on above: Performed By: #### C Yaquelin SHERIFFCBCGR ####MAIN LABCLIA:[id number] [place] [address] Chloride 101 mmol/L Normal 98-[address] [facility] Comment on above: Performed By: #### Yaquelin RUFFCBCGR ####MAIN LABCLIA:[id number] [place] [address] CO2 24 mmol/L Normal 22-[address] [facility] Comment on above: Performed By: #### C SHARITA, ZCBCGR ####MAIN LABCLIA:[id number] [place] [address] Creatinine 0.77 mg/dL Normal 0.50-0.[address] [facility] Comment on above: Performed By: #### C SHARITA, ZCBCGR ####MAIN LABCLIA:[id number] [place] [address] eGFR (MDRD) 77 /1.73 m2 Normal >60 mL/min [facility] Comment on above: Result Comment: Norm al RangeStage Description:1 Normal or Increased GFR >=902 Mild Decrease in GFR 60-903 Moderately Decreased GFR 30-594 Severely Decreased GFR 15-295 Kidney Failure <15 Performed By: #### C SHARITA, ZCBCGR ####MAIN LABCLIA:[id number] [place] [address] Glucose mass conc 89 mg/dL Normal 74-109 [facility] Comment on above: Performed By: #### C SHARITA, ZCBCGR ####MAIN LABCLIA:[id number] [place] [address] Potassium molar conc 4.4 mmol/L Normal 3.5-5.[address] [facility] Comment on above: Performed By: #### C SHARITA, ZCBCGR ####MAIN LABCLIA:[id number] [place] [address] Sodium 133 mmol/L Low 136-[address] [facility] Comment on above: Performed By: #### C SHARITA, ZCBCGR ####MAIN LABCLIA:[id number] [place] [address] CBC/DIFF GROUPon 01-06-2018 Anisocytosis presence 1+ Normal [facility] Comment on above: Performed By: #### C SHARITA, ZCBCGR ####MAIN LABCLIA:[id number] [place] [address] HYPOCHROMASIA 1+ Normal [facility] Comment on above: Performed By: #### C SHARITA ZCBCGR ####MAIN LABCLIA:[id number] [facility] [place] [address] NORMOCHROMIC NO Normal [facility] Comment on above: Performed By: #### C SHARITA ZCBCGR ####MAIN LABCLIA:[id number] [facility] [place] [address] NORMOCYTIC NO Normal [facility] Comment on above: Performed By: #### C SHARITA ZCBCGR ####MAIN LABCLIA:[id number] [place] [address] Platelets NORMAL [facility] Comment on above: Performed By: #### Vladimir SHERIFF ZCBCGR ####MAIN LABCLIA:[id number] [place] [address] BAND NEUTROPHILS #(MANUAL) 152 /cmm Normal <[address] [facility] Comment on above: Performed By: #### Vladimir SHERIFF ZCBCGR ####MAIN LABCLIA:[id number] [place] [address] Eosinophils 456 /cmm High <[address] [facility] Comment on above: Performed By: #### Vladimir SHERIFF ZCBCGR ####MAIN LABCLIA:[id number] [place] [address] Eosinophils/100 leukocytes 6 % High <[address] [facility] Comment on above: Performed By: #### Vladimir SHERIFF ZCBCGR ####MAIN LABCLIA:[id number] [facility] [place] [address] Lymphocytes 1748 /cmm Normal 960-[address] [facility] Comment on above: Performed By: #### Vladimir SHERIFF ZCBCGR ####MAIN LABCLIA:[id number] [place] [address] Lymphocytes/100 leukocytes 23 % Normal 20-[address] [facility] Comment on above: Performed By: #### Vladimir SHERIFF ZCBCGR ####MAIN LABCLIA:[id number] [place] [address] METAMYELOCYTES #(MANUAL) 76 /cmm High [address] [facility] Comment on above: Performed By: #### Vladimir SHERIFF ZCBCGR ####MAIN LABCLIA:[id number] [place] [address] Metamyelocytes/100 leukocytes 1 % High [address] [facility] Comment on above: Performed By: #### Vladimir SHERIFF ZCBCGR ####MAIN LABCLIA:[id number] [place] [address] Monocytes 1292 /cmm High 96-[address] [facility] Comment on above: Performed By: #### Vladimir SHERIFF ZCBCGR ####MAIN LABCLIA:[id number] [place] [address] Monocytes/100 leukocytes 17 % High 2-[address] [facility] Comment on above: Performed By: #### Vladimir SHERIFF ZCBCGR ####MAIN LABCLIA:[id number] [place] [address] Neutrophils 3876 /cmm Normal 1925-[address] [facility] Comment on above: Performed By: #### Vladimir SHERIFF ZCBCGR ####MAIN LABCLIA:[id number] [place] [address] Neutrophils band/100 leukocytes 2 % Normal <[address] [facility] Comment on above: Performed By: #### Vladiimr SHERIFF ZCBCGR ####MAIN LABCLIA:[id number] [place] [address] Neutrophils/100 WBC Auto (Bld) 51 % Normal 50-[address] [facility] Comment on above: Performed By: #### Vladimir SHERIFF ZCBCGR ####MAIN LABCLIA:[id number] [place] [address] TOTAL CELLS COUNTED [address] [facility] Comment on above: Performed By: #### Vladimir SHERIFF ZCBCGR ####MAIN LABCLIA:[id number] [place] [address] Erythrocyte distribution width Auto Ratio (RBC) 13.0 % Normal 11.5-14.[address] [facility] Comment on above: Performed By: #### C SHARITA ZCBCGR ####MAIN LABCLIA:[id number] [place] [address] Erythrocytes (RBC) 3.49 10 6/cmm Low 4.20-5.40 [facility] Comment on above: Performed By: #### C SHARITA ZCBCGR ####MAIN LABCLIA:[id number] [place] [address] Hematocrit (HCT) 29.4 % Low 38.0-47.0 [facility] Comment on above: Performed By: #### C SHARITA ZCBCGR ####MAIN LABCLIA:[id number] [place] [address] Hemoglobin mass conc (Bld) 10.1 g/dL Low 12.0-16.[address] [facility] Comment on above: Performed By: #### C SHARITA ZCBCGR ####MAIN LABCLIA:[id number] [place] [address] MCH 34.5 g/dL Normal 32.0-36.[address] [facility] Comment on above: Performed By: #### C SHARITA ZCBCGR ####MAIN LABCLIA:[id number] [place] [address] MCH 29.1 pg Normal 27.0-31.[address] [facility] Comment on above: Performed By: #### C SHARITA ZCBCGR ####MAIN LABCLIA:[id number] [place] [address] MCV 84.3 fL Normal 80.0-96.[address] [facility] Comment on above: Performed By: #### C SHARITA ZCBCGR ####MAIN LABCLIA:[id number] [place] [address] Platelets 359 10 3/cmm Normal 130-[address] [facility] Comment on above: Performed By: #### C SHARITA ZCBCGR ####MAIN LABCLIA:[id number] [place] [address] WBC (Leukocytes) 7.6 10 3/cmm Normal 4.8-10.8 [facility] Comment on above: Performed By: #### C BC, ZCBCGR ####MAIN LABCLIA:[id number] [place] [address] FREE T4 (FREE THYROXINE)on 0 01-06-2018 Thyroxine (T4) free 2.46 ng/dL High 0.93-1.[address] [facility] Comment on above: Performed By: #### C BC, ZCBCGR ####MAIN LABCLIA:[id number] [place] [address] IM Progress Noteon 8 IM Progress Note [address], [place] [address] TANGELA TRINIDAD 77 [id number] Donnell Barton MD 4W / [id number] 1940 Report #: [id number] Hospitalist Progress Note Date/Time: 01/06/18805 Report Status: [...] fine and wants to go back to [place]. Her will be driving. - Reviewed laboratory [...] have her follow-up with her physician in [place]. (2) Hyponatremia Status: Improved Plan: Sodium of 133-asymptomatic urine sodium slightly elevated at 35. (3) Essential hypertension Status: Stable (4) Hypothyroidism Plan: Suppressed TSH, her physician from [place] just called her in down dosed her [...] Signed By: Donnell Barton MD Signed Date/Time: 01/06/18816 Electronically Cosigned By: Cosigned Date/Time: Normal [facility] T3 FREEon 01-06-2018 Triiodothyronine (T3) free 5.92 pg/mL High 2.0-4.[address] [facility] Comment on above: Performed By: #### C VAMSI SHERIFFGR ####MAIN LABCLIA:[id number] [place] [address] CBC/DIFF GROUPon 01-05-2018 NORMOCHROMIC YES Normal [facility] Comment on above: Performed By: #### VAMSI RUFFGR ####MAIN LABCLIA:[id number] [place] [address] NORMOCYTIC YES Normal [facility] Comment on above: Performed By: #### VAMSI RUFFGR ####MAIN LABCLIA:[id number] [place] [address] Platelets NORMAL Normal [facility] Comment on above: Performed By: #### MELONY RUFF ####MAIN LABCLIA:[id number] [place] [address] BAND NEUTROPHILS #(MANUAL) 414 /cmm Normal <[address] [facility] Comment on above: Performed By: #### C SHARITA ZCBCGR ####MAIN LABCLIA:[id number] [place] [address] Eosinophils 552 /cmm High <[address] [facility] Comment on above: Performed By: #### C SHARITA ZCBCGR ####MAIN LABCLIA:[id number] [place] [address] Eosinophils/100 leukocytes 4 % Normal <[address] [facility] Comment on above: Performed By: #### C SHARITA ZCBCGR ####MAIN LABCLIA:[id number] [place] [address] Lymphocytes 690 /cmm Low 960-[address] [facility] Comment on above: Performed By: #### C SHARITA ZCBCGR ####MAIN LABCLIA:[id number] [place] [address] Lymphocytes/100 leukocytes 5 % Low 20-[address] [facility] Comment on above: Performed By: #### C SHARITA ZCBCGR ####MAIN LABCLIA:[id number] [place] [address] Monocytes 1242 /cmm High 96-[address] [facility] Comment on above: Performed By: #### Vladiimr SHERIFF ZCBCGR ####MAIN LABCLIA:[id number] [place] [address] Monocytes/100 leukocytes 9 % Normal 2-[address] [facility] Comment on above: Performed By: #### C SHARITA ZCBCGR ####MAIN LABCLIA:[id number] [place] [address] Neutrophils 56962 /cmm High 3333-[address] [facility] Comment on above: Performed By: #### C SHARITA ZCBCGR ####MAIN LABCLIA:[id number] [place] [address] Neutrophils band/100 leukocytes 3 % Normal <[address] [facility] Comment on above: Performed By: #### C SHARITA, ZCBCGR ####MAIN LABCLIA:[id number] [place] [address] Neutrophils/100 WBC Auto (Bld) 79 % High 50-[address] [facility] Comment on above: Performed By: #### C BC, ZCBCGR ####MAIN LABCLIA:[id number] [place] [address] TOTAL CELLS COUNTED [address] [facility] Comment on above: Performed By: #### C SHARITA, ZCBCGR ####MAIN LABCLIA:[id number] [place] [address] Hematocrit (HCT) 36.0 % Low 38.0-47.0 [facility] Comment on above: Performed By: #### C SHARITA, ZCBCGR ####MAIN LABCLIA:[id number] [place] [address] Hemoglobin mass conc (Bld) 12.2 g/dL Normal 12.0-16.[address] [facility] Comment on above: Performed By: #### C SHARITA, ZCBCGR ####MAIN LABCLIA:[id number] [place] [address] MCH 28.6 pg Normal 27.0-31.[address] [facility] Comment on above: Performed By: #### C SHARITA, ZCBCGR ####MAIN LABCLIA:[id number] [place] [address] MCV 84.1 fL Normal 80.0-96.[address] [facility] Comment on above: Performed By: #### C SHARITA, ZCBCGR ####MAIN LABCLIA:[id number] [place] [address] WBC (Leukocytes) 13.8 10 3/cmm High 4.8-10.[address] [facility] Comment on above: Performed By: #### C SHARITA, ZCBCGR ####MAIN LABCLIA:[id number] [place] [address] CHEST 2 VIEWSon 01-05-2018 CHEST [address] [phone]____ Pt Location: 4W/ ADM IN Pt RM#: [id number] MR #: [id number] DATE: 01/05/18 1236 ADM#: [id number] #: [id number] JANET TRINIDADOB: 1940 Age/Sex: 77 / F REPORT STATUS: SignedORDERING PHYSICIAN: STU Salvador/PRIMARY PHYSICIAN: Doctor,No HISTO RY/REASON: CPCLINICAL HISTORY: Dizziness.TECHNICAL [...] ROSY Salvador; Doctor,No; Donnell Barton MD Normal [facility] COMPLETE BLOOD COUNTon 01-05 Erythrocyte distribution width Auto Ratio (RBC) 12.7 % Normal 11.5-14.[address] [facility] Comment on above: Performed By: #### C BC, ZCBCGR ####MAIN LABCLIA:[id number] [facility] [place] [address] Erythrocytes (RBC) 4.28 10 6/cmm Normal 4.20-5.40 [facility] Comment on above: Performed By: #### C BC, ZCBCGR ####MAIN LABCLIA:[id number] [facility] [address] MCH 34.0 g/dL Normal 32.0-36.[address] [facility] Comment on above: Performed By: #### C BC, ZCBCGR ####MAIN LABCLIA:[id number] [facility] [place] [address] Platelets 423 10 3/cmm High 130-[address] [facility] Comment on above: Performed By: #### C BCYaquelinCBCGR ####MAIN LABCLIA:[id number] [facility] [place] [address] COMPREHENSIVE METABOLIC PANE Umberto 01-05-2018 Alanine aminotransferase (ALT) 15 U/L Normal 0-33 [facility] Comment on above: Performed By: #### C MP, MG ####MAIN LABCLIA:[id number] [facility] [place] [address] Albumin 3.3 g/dL Normal 3.0-4.[address] [facility] Comment on above: Performed By: #### C MP, MG ####MAIN LABCLIA:[id number] [place] [address] Albumin/Globulin Ratio 1.2 {ratio} Normal 1-1.4 [facility] Comment on above: Performed By: #### C MP, MG ####MAIN LABCLIA:[id number] [facility] [place] [address] Alkaline phosphatase (ALP) 76 U/L Normal 35-[address] [facility] Comment on above: Performed By: #### C MP, MG ####MAIN LABCLIA:[id number] [facility] [address] Anion gap 15 mmol/L Normal 9-[address] [facility] Comment on above: Performed By: #### C MP, MG ####MAIN LABCLIA:[id number] [facility] [place] [address] Aspartate aminotransferase (AST) 16 U/L Normal 0-32 [facility] Comment on above: Performed By: #### C MP, MG ####MAIN LABCLIA:[id number] [facility] [place] [address] Bilirubin (total) 0.4 mg/dL Normal 0.2-1.2 [facility] Comment on above: Performed By: #### C MP, MG ####MAIN LABCLIA:[id number] [facility] [place] [address] BUN (urea nitrogen) 26 mg/dL High 8-[address] [facility] Comment on above: Performed By: #### C MP, MG ####MAIN LABCLIA:[id number] [facility] [place] [address] BUN/Creatinine Ratio 22.2 mg/mg Normal [facility] Comment on above: Performed By: #### C MP, MG ####MAIN LABCLIA:[id number] [facility] [place] [address] Calcium 8.5 mg/dL Low 8.8-10.[address] [facility] Comment on above: Performed By: #### C MP, MG ####MAIN LABCLIA:[id number] [place] [address] Chloride 90 mmol/L Low 98-[address] [facility] Comment on above: Performed By: #### C MP, MG ####MAIN LABCLIA:[id number] [facility] [place] [address] CO2 26 mmol/L Normal 22-[address] [facility] Comment on above: Performed By: #### C MP, MG ####MAIN LABCLIA:[id number] [facility] [place] [address] Creatinine 1.17 mg/dL High 0.50-0.[address] [facility] Comment on above: Performed By: #### C MP, MG ####MAIN LABCLIA:[id number] [facility] [place] [address] eGFR (MDRD) 47 /1.73 m2 Low >60 mL/min [facility] Comment on above: Result Comment: Norm al RangeStage Description:1 Normal or Increased GFR >=902 Mild Decrease in GFR 60-903 Moderately Decreased GFR 30-594 Severely Decreased GFR 15-295 Kidney Failure <15 Performed By: #### C MP, MG ####MAIN LABCLIA:[id number] [place] [address] Globulin 2.7 g/dL Normal 2.3-3.[address] [facility] Comment on above: Performed By: #### C MP, MG ####MAIN LABCLIA:[id number] [place] [address] Glucose mass conc 136 mg/dL High 74-109 [facility] Comment on above: Performed By: #### C MP, MG ####MAIN LABCLIA:[id number] [place] [address] Potassium molar conc 4.5 mmol/L Normal 3.5-5.[address] [facility] Comment on above: Performed By: #### C MP, MG ####MAIN LABCLIA:[id number] [place] [address] Protein 6.0 g/dL Low 6.4-8.[address] [facility] Comment on above: Performed By: #### C MP, MG ####MAIN LABCLIA:[id number] [place] [address] Sodium 126 mmol/L Low 136-[address] [facility] Comment on above: Performed By: #### C MP, MG ####MAIN LABCLIA:[id number] [place] [address] CT HEAD WO 01-05-2018 CT HEAD WO [address] [phone]____ Pt Location: 4W/ ADM IN Pt #: [id number] MR #: [id number] DATE: 01/05/18 1236 ADM#: [id number] #: [id number] JANET TRINIDADOB: 1940 Age/Sex: 77 / F REPORT STATUS: SignedORDERING PHYSICIAN: DAVID SalvadorRIVATE/PRIMARY PHYSICIAN: Doctor,No HISTO RY/REASON: Dizziness, near syncopeCLINICAL HISTORY: Syncope.TECHNICAL [...] matter.REPORT# [id number] READ BY: Cielo Pacheco M.D. [id number] REPORT RELEASED BY: Cielo Pacheco M.D. 01/05/18 1502Transcribed Date/Time: 01/05/18 1339 PLPCC: ROSY Salvador; Doctor,No; Donnell Barton MD [facility] Emergency Room Visit Reporto n 01-05-2018 Emergency Room Visit Report [address], [place] [address] TANGELA TRINIDAD 1940 (77 F) [id number] Helio Hoang 4W Report #: [id number] PCP: No Doctor Emergency Room Visit Report [...] reports feeling dizziness and near syncope at [facility]. Pt reports recent bronchitis that she was [...] Allergy Mild Rash Verified 01/05/18 12:40 Antibiotics) Ixioiad-Egd-Mnx Reductase Allergy Unknown Verified 01/05/18 12:40 Inhibitor [...] PO BID 01/05/18 01/05/18 raNITIdine HCl [Acid Brake Repair Supervisor] 150 mg PO BID 01/05/18 01/05/18 ROS [...] % (Manual) (<4) % Neutrophils # (Manual) (7354-8825) /cmm Band Neutrophils # (<648) /cmm Lymphocytes [...] Appearance Clear Urine pH 7.[address] <=1.005 Urine Protein Negative (NEGATIVE) Urine Glucose [...] (Manual) 4 (<4) % Neutrophils # (Manual) 14608 H (2050-0406) /cmm Band Neutrophils # 414 (<648) /cmm [...] Color Urine Appearance Urine pH Ur Specific [address] Urine Protein (NEGATIVE) Urine Glucose (UA) (NEGATIVE) [...] an inhaler. This was obtained by the [facility] pharmacy in [facility]. 01/05/18 14:40 I discussed this patient [...] Cosigned By: Sohan Grover MD Cosigned Date/Time: 01/05/18 190 [facility] History & Physicalon 018 History & Physical [address] [place] [id number] TANGELA TRINIDAD [id number] Donnell Barton MD 4W / 4106-B 1940 Report #: [id number] Admission Date: 01/05/18 History Physical Date/Time: 01/05/18 [...] episode. Patient is visiting this area from [place] [...] asymptomatic. Evaluation emergency room consisted of a environmental monitoring specialist which shows normal sinus rhythm, EKG shows [...] Allergy Mild Rash Verified 01/05/18 12:40 Antibiotics) Jbcgswp-Qwx-Jmq Reductase Allergy Unknown Verified 01/05/18 12:40 Inhibitor [...] PO BID 01/05/18 01/05/18 raNITIdine HCl [Acid Brake Repair Supervisor] 150 mg PO BID 01/05/18 01/05/18 Allergies [...] By: Donnell Barton MD Signed Date/Time: 01/05/18 8251 Electronically Cosigned By: Cosigned Date/Time: Normal [facility] MAGNESIUMon 01-05-2018 Magnesium 2.1 mg/dL Normal 1.6-2.[address] [facility] Comment on above: Performed By: #### C MP, MG ####MAIN LABCLIA:[id number] [place] [address] SODIUM,URINE RANDOMon 2017 SODIUM,URINE RANDOM 35 mmol/L Normal [facility] Comment on above: Order Comment: COLLE CTED BY: Sherine Tenorio Result Comment: The reference range has not been established for this test. Performed By: #### C BC, ZCBCGR ####MAIN LABCLIA:[id number] [place] [address] THYROID STIMULATING HORMONEo n 01-05-2018 Thyroid stimulating hormone (TSH) 0.16 uIU/mL Low 0.27-4.[address] [facility] Comment on above: Performed By: #### C BC, ZCBCGR ####MAIN LABCLIA:[id number] [place] [address] TROPONIN Ton 01-05-2018 Troponin T.cardiac mass conc ug/L Normal <0.[address] [facility] Comment on above: Result Comment: Valu [...] Performed By: #### C BC, ZCBCGR ####MAIN LABCLIA:[id number] [place] [address] Troponin T.cardiac mass conc ug/L Normal <0.[address] [facility] Comment on above: Result Comment: Valu [...] hours. Performed By: #### T ROPT ####MAIN LABCLIA:[id number] [place] [address] URINALYSISon 01-05-2018 UA APPEARANCE CLEAR Normal [facility] Comment on above: Order Comment: COLLE CTED BY: Tye acostaOID-MIDSTREAM Performed By: #### U A ####MAIN LABCLIA:[id number] [facility] [address] UA BACTERIA NONE Normal NONE [facility] Comment on above: Order Comment: COLLE CTED BY: Tye acostaOID-MIDSTREAM Performed By: #### U A ####MAIN LABCLIA:[id number] [facility] [address] UA SQUAMOUS EPITHELIAL 0-2 Normal [facility] Comment on above: Order Comment: COLLE CTED BY: Tye acostaOID-MIDSTREAM Performed By: #### U A ####MAIN LABCLIA:[id number] [facility] [place] [address] UA WBC 0-2 Normal 0-[address] [facility] Comment on above: Order Comment: COLLE CTED BY: Tye acostaOID-MIDSTREAM Performed By: #### U A ####MAIN LABCLIA:[id number] [facility] [place] [address] Urine, color YELLOW Normal [facility] Comment on above: Order Comment: COLLE CTED BY: Tye acostaOID-MIDSTREAM Performed By: #### U A ####MAIN LABCLIA:[id number] [facility] [address] Urine, erythrocytes 0-2 Normal 0-[address] [facility] Comment on above: Order Comment: COLLE CTED BY: Tye acostaOID-MIDSTREAM Performed By: #### U A ####MAIN LABCLIA:[id number] [facility] [place] [address] UA BILIRUBIN Negative Normal NEGATIVE [facility] Comment on above: Order Comment: COLLE CTED BY: davedVOID-MIDSTREAM Performed By: #### U A ####MAIN LABCLIA:[id number] [place] [address] UA BLOOD Negative Normal NEGATIVE [facility] Comment on above: Order Comment: COLLE CTED BY: Tye acostaOID-MIDSTREAM Performed By: #### U A ####MAIN LABCLIA:[id number] [place] [address] UA LEUKOCYTE ESTERASE TRACE Normal NEGATIVE [facility] Comment on above: Order Comment: COLLE CTED BY: davedVOID-MIDSTREAM Performed By: #### U A ####MAIN LABCLIA:[id number] [place] [address] UA NITRITES Negative Normal NEGATIVE [facility] Comment on above: Order Comment: COLLE CTED BY: Tye acostaOID-MIDSTREAM Performed By: #### U A ####MAIN LABCLIA:[id number] [place] [address] UA PH 7.[address] [facility] Comment on above: Order Comment: COLLE CTED BY: Tye acostaOID-MIDSTREAM Performed By: #### U A ####MAIN LABCLIA:[id number] [place] [address] UA PROTEIN Negative Normal NEGATIVE [facility] Comment on above: Order Comment: COLLE CTED BY: Tye acostaOID-MIDSTREAM Performed By: #### U A ####MAIN LABCLIA:[id number] [place] [address] UA SPECIFIC GRAVITY <=1.[address] [facility] Comment on above: Order Comment: COLLE CTED BY: Tye acostaOID-MIDSTREAM Performed By: #### U A ####MAIN LABCLIA:[id number] [place] [address], [place] [address] UA UROBILINOGEN 0.2 mg/dL Normal 0.0-1.0 [facility] Comment on above: Order Comment: COLLE CTED BY: Tye acostaOID-MIDSTREAM Performed By: #### U A ####MAIN LABCLIA:[id number] [facility] [place] [address] Urine, glucose Negative Normal NEGATIVE [facility] Comment on above: Order Comment: COLLE CTED BY: davedVOID-MIDSTREAM Performed By: #### U A ####MAIN LABCLIA:[id number] [place] [address] Urine, ketones presence Negative Normal NEGATIVE [facility] Comment on above: Order Comment: COLLE CTED BY: davedVOID-MIDSTREAM Performed By: #### U A ####MAIN LABCLIA:[id number] [place] [address] URINE SOURCE VOID-MIDSTREAM Normal [facility] Comment on above: Order Comment: COLLE CTED BY: davedVOID-MIDSTREAM Performed By: #### U A ####MAIN LABCLIA:[id number] [place] [address] VASCULAR RISK PANELon 2017 Cholesterol 180 mg/dL Normal 0-[address] [facility] Comment on above: Order Comment: Comme nts: Use blood from ED if available Performed By: #### C BC ZCBCGR ####MAIN LABCLIA:[id number] [place] [address] HDL Cholesterol 42 mg/dL Low >65 [facility] Comment on above: Order Comment: Comme nts: Use blood from ED if available Performed By: #### C BC, ZCBCGR ####MAIN LABCLIA:[id number] [place] [address] LDL Cholesterol 98 mg/dL Normal <129 [facility] Comment on above: Order Comment: Comme nts: Use blood from ED if available Performed By: #### C BC, ZCBCGR ####MAIN LABCLIA:[id number] [place] [address] Triglyceride 202 mg/dL High 0-[address] [facility] Comment on above: Order Comment: Comme nts: Use blood from ED if available Performed By: #### C BC, ZCBCGR ####MAIN LABCLIA:[id number] [place] [address] VLDL CHOLESTEROL 40 mg/dL Normal 5-40 [facility] Comment on above: Order Comment: Lorie nts: Use blood from ED if available Performed By: #### C BC, ZCBCGR ####MAIN LABCLIA:[id number] [place] [address] Vital Signs Date Time Vital Sign Value Performing Clinician Facility 05-27-2023 11:00-0500 Body height 152.4 cm [facility] Other [facility] Other 05-27-2023 11:00-0500 Diastolic blood pressure 84 mm[Hg] [facility] Other [facility] Other 05-27-2023 11:00-0500 Systolic blood pressure 124 mm[Hg] [facility] Other [facility] Other 03-04-2023 13:45-0400 Body height 152.4 cm [facility] Other [facility] Other 03-04-2023 13:45-0400 Body mass index (BMI) [Ratio] 28.47 kg/m2 [facility] Other [facility] Other 03-04-2023 13:45-0400 Body weight 66.13 kg [facility] Other [facility] Other 03-04-2023 13:45-0400 Diastolic blood pressure 80 mm[Hg] [facility] Other [facility] Other 03-04-2023 13:45-0400 Respiratory rate 12 /min [facility] Other [facility] Other 03-04-2023 13:45-0400 Systolic blood pressure 117 mm[Hg] [facility] Other [facility] Other 02-22-2023 11:00-0400 Body height 152.4 cm [facility] Other [facility] Other 02-22-2023 11:00-0400 Body mass index (BMI) [Ratio] 28.39 kg/m2 [facility] Other [facility] Other 02-22-2023 11:00-0400 Body weight 65.95 kg [facility] Other [facility] Other 02-22-2023 11:00-0400 Diastolic blood pressure 83 mm[Hg] [facility] Other [facility] Other 02-22-2023 11:00-0400 Respiratory rate 12 /min [facility] Other [facility] Other 02-22-2023 11:00-0400 Systolic blood pressure 132 mm[Hg] [facility] Other [facility] Other 01-24-2023 09:18-0400 Diastolic blood pressure 72 mm[Hg] DO [facility] Work Phone: [facility] 01-24-2023 09:18-0400 Heart rate 56 /min DO [facility] Work Phone: [facility] 01-24-2023 09:18-0400 Respiratory rate 14 /min DO [facility] Work Phone: [facility] 01-24-2023 09:18-0400 SaO2% (BldA) [Mass fraction] 98 % DO K[facility] Ball Work Phone: [facility] 01-24-2023 09:18-0400 Systolic blood pressure 126 mm[Hg] DO [facility] Work Phone: [facility] 01-24-2023 07:44-0400 Body height 154.94 cm DO [facility] Work Phone: [facility] 01-24-2023 07:44-0400 Body temperature 97.8 [degF] DO [facility] Work Phone: [facility] 01-24-2023 07:44-0400 Body weight 65.31 kg DO [facility] Ball Work Phone: [facility] 11-18-2022 12:00-0400 Body height 152.4 cm [facility] Other [facility] Other 11-18-2022 12:00-0400 Body mass index (BMI) [Ratio] 28.74 kg/m2 [facility] Other [facility] Other 11-18-2022 12:00-0400 Body weight 66.77 kg [facility] Other [facility] Other 11-18-2022 12:00-0400 Diastolic blood pressure 82 mm[Hg] Kvng Ball Other [facility] [employer] Other 11-18-2022 12:00-0400 Respiratory rate 12 /min Kvng Ball Other [facility] [employer] Other 11-18-2022 12:00-0400 Systolic blood pressure 125 mm[Hg] Kvng Ball Other [facility] [employer] Other 10-28-2022 14:05-0400 Diastolic blood pressure 73 mm[Hg] DO Kvng Ball Work Phone: [facility] 10-28-2022 14:05-0400 Heart rate 60 /min DO Kvng Ball Work Phone: [facility] 10-28-2022 14:05-0400 Respiratory rate 18 /min DO Kvng Ball Work Phone: [facility] 10-28-2022 14:05-0400 SaO2% (BldA) [Mass fraction] 96 % DO Kvng Ball Work Phone: [facility] 10-28-2022 14:05-0400 Systolic blood pressure 117 mm[Hg] DO Kvng Ball Work Phone: [facility] 10-28-2022 11:42-0400 Body height 154.94 cm DO Kvng Ball Work Phone: [facility] 10-28-2022 11:42-0400 Body temperature 97.9 [degF] DO Kvng Ball Work Phone: [facility] 10-28-2022 11:42-0400 Body weight 65.77 kg DO Kvng Ball Work Phone: [facility] 10-12-2022 15:00-0400 Body height 152.4 cm Kvng Ball Other [facility] [employer] Other 10-12-2022 15:00-0400 Body mass index (BMI) [Ratio] 28.78 kg/m2 Kvng Ball Other [facility] [employer] Other 10-12-2022 15:00-0400 Body weight 66.86 kg Kvng Ball Other [facility] [employer] Other 10-12-2022 15:00-0400 Diastolic blood pressure 80 mm[Hg] Kvng Ball Other [facility] [employer] Other 10-12-2022 15:00-0400 Respiratory rate 12 /min Kvng Ball Other [employer] Other 10-12-2022 15:00-0400 Systolic blood pressure 116 mm[Hg] Kvng Ball Other [employer] Other 07-27-2022 14:38-0500 Body height 152.4 cm Mavis Santiago MD Work Phone: [facility] 07-27-2022 14:38-0500 Body temperature 98.1 [degF] Mavis Santiago MD Work Phone: [facility] 07-27-2022 14:38-0500 Body weight 66.5 kg Mavis Santiago MD Work Phone: [facility] 07-27-2022 14:38-0500 Diastolic blood pressure 72 mm[Hg] Mavis Santiago MD Work Phone: [facility] 07-27-2022 14:38-0500 Heart rate 64 /min Mavis Santiago MD Work Phone: [facility] 07-27-2022 14:38-0500 Respiratory rate 16 /min Mavis Santiago MD Work Phone: [facility] 07-27-2022 14:38-0500 SaO2% (BldA) [Mass fraction] 97 % Mavis Santiago MD Work Phone: [facility] 07-27-2022 14:38-0500 Systolic blood pressure 125 mm[Hg] Mavis Santiago MD Work Phone: [facility] 07-26-2022 09:19-0500 Diastolic blood pressure 69 mm[Hg] DO Kvng Ball Work Phone: [facility] 07-26-2022 09:19-0500 Heart rate 59 /min DO Kvng Ball Work Phone: [facility] 07-26-2022 09:19-0500 Respiratory rate 16 /min DO Kvng Ball Work Phone: [facility] 07-26-2022 09:19-0500 SaO2% (BldA) [Mass fraction] 98 % DO Kvng Ball Work Phone: [facility] 07-26-2022 09:19-0500 Systolic blood pressure 111 mm[Hg] DO Kvng Ball Work Phone: [facility] 07-26-2022 07:19-0500 Body height 154.94 cm DO Kvng Ball Work Phone: [facility] 07-26-2022 07:19-0500 Body temperature 97.7 [degF] DO Kvng Ball Work Phone: [facility] 07-26-2022 07:19-0500 Body weight 66.22 kg DO Kvng Ball Work Phone: [facility] 07-21-2022 14:30-0500 Body height 152.4 cm Kvng Ball Other [facility] [employer] Other 07-21-2022 14:30-0500 Body mass index (BMI) [Ratio] 28.82 kg/m2 Vkng Ball Other [facility] [employer] Other 07-21-2022 14:30-0500 Body weight 66.95 kg Kvng Ball Other [facility] [employer] Other 07-21-2022 14:30-0500 Diastolic blood pressure 70 mm[Hg] Kvng Ball Other [employer] Other 07-21-2022 14:30-0500 Respiratory rate 12 /min Kvng Ball Other [employer] Other 07-21-2022 14:30-0500 Systolic blood pressure 118 mm[Hg] Kvng Ball Other [employer] Other 05-25-2022 13:02-0500 Body temperature 96.91 [degF] Chair Ryan Work Phone: [facility] 05-25-2022 13:02-0500 Diastolic blood pressure 88 mm[Hg] Chair Prescott Work Phone: [facility] 05-25-2022 13:02-0500 Heart rate 68 /min Chair Prescott Work Phone: [facility] 05-25-2022 13:02-0500 Respiratory rate 18 /min Chair Ryan Work Phone: [facility] 05-25-2022 13:02-0500 SaO2% (BldA) [Mass fraction] 100 % Chair Ryan Work Phone: [facility] 05-25-2022 13:02-0500 Systolic blood pressure 146 mm[Hg] Chair Delgado Work Phone: [facility] 05-18-2022 15:42-0500 Body temperature 98.1 [degF] Mavis Santiago MD Work Phone: [facility] 05-18-2022 15:42-0500 Body weight 68.04 kg Mavis Santiago MD Work Phone: [facility] 05-18-2022 15:42-0500 Diastolic blood pressure 78 mm[Hg] Mavis Santiago MD Work Phone: [facility] 05-18-2022 15:42-0500 Heart rate 78 /min Mavis Santiago MD Work Phone: [facility] 05-18-2022 15:42-0500 Respiratory rate 16 /min Mavis Santiago MD Work Phone: [facility] 05-18-2022 15:42-0500 SaO2% (BldA) [Mass fraction] 98 % Mavis Santiago MD Work Phone: [facility] 05-18-2022 15:42-0500 Systolic blood pressure 122 mm[Hg] Mavis Santiago MD Work Phone: [facility] Encounters Encounter Date Encounter Type Care Provider Facility Start: 09-15-2023 End: 09-15-2023 ambulatory Imad Asaad Other [employer] Other Start: 09-15-2023 Telephone encounter Imad Asaad [facility] Start: 08-10-2023 End: 08-10-2023 ambulatory Imad Asaad Other [employer] Other Start: 08-10-2023 Office outpatient vi sit 25 minutes Imad Asaad [facility] Start: 08-01-2023 End: 08-01-2023 ambulatory Kvng Melgar Other [employer] Other Start: 08-01-2023 Telephone encounter Kvng RODRIGES [facility] Start: 07-25-2023 End: 07-25-2023 ambulatory Imad Asaad Facility:[facility] Start: 07-25-2023 End: 07-25-2023 ambulatory DO Kvng Melgar Work Phone: [facility] Work Phone: Start: 07-25-2023 End: 07-25-2023 Patient encounter procedure DO Kvng Melgar Work Phone: [facility] [place] Work Phone: Start: 07-06-2023 End: 07-06-2023 ambulatory Imad Asaad Other [employer] Other Start: 07-06-2023 Telephone encounter Imad Asaad [facility] Start: 06-20-2023 End: 06-20-2023 ambulatory Kvng Melgar Other [employer] Other Start: 06-20-2023 Telephone encounter Kvng RODRIGES [facility] Start: 06-15-2023 End: 06-15-2023 ambulatory Kvng Melgar Other [employer] Other Start: 06-15-2023 Telephone encounter Kvng RODRIGES [facility] Start: 06-08-2023 End: 06-08-2023 ambulatory Kvng Melgar Other [employer] Other Start: 06-08-2023 Telephone encounter Kvng RODRIGES [facility] Start: 05-31-2023 End: 05-31-2023 ambulatory Kvng Melgar Other [employer] Other Start: 05-31-2023 Telephone encounter Kvng RODRIGES [facility] Start: 05-29-2023 End: 05-29-2023 ambulatory Kvng Melgar Other [employer] Other Start: 05-29-2023 Telephone encounter Kvng Melgar [facility] Start: 05-28-2023 End: 05-28-2023 ambulatory Kvng Melgar Other [employer] Other Start: 05-28-2023 Telephone encounter Kvng RODRIGES [facility] Start: 05-27-2023 End: 05-27-2023 ambulatory Kvng Melgar Other [employer] Other Start: 05-27-2023 Office outpatient vi sit 25 minutes Kvng Melgar [facility] Start: 05-25-2023 End: 05-25-2023 ambulatory Kvng Melgar Other [employer] Other Start: 05-25-2023 Telephone encounter Kvng Melgar [facility] Start: 05-20-2023 End: 05-20-2023 ambulatory Kvng Melgar Other [employer] Other Start: 05-20-2023 Telephone encounter Kvng RODRIGES [facility] Start: 05-10-2023 End: 05-10-2023 ambulatory Imad Asaad Other [employer] Other Start: 05-10-2023 Telephone encounter Imad Asaad [facility] Start: 04-26-2023 End: 04-26-2023 ambulatory Kvng Melgar Other [employer] Other Start: 04-26-2023 Nursing evaluation o f patient and report Kvng Melgar [facility] Start: 03-23-2023 End: 03-23-2023 ambulatory Imad Asaad Other [employer] Other Start: 03-23-2023 Telephone encounter Imad Asaad [facility] Start: 03-10-2023 End: 03-10-2023 ambulatory Kvng Melgar Other [facility] Other Start: 03-10-2023 Telephone encounter Kvng Melgar [facility] Start: 03-07-2023 End: 03-07-2023 ambulatory Kvng Melgar Other [employer] Other Start: 03-07-2023 Telephone encounter Kvng Ermelinda [facility] Start: 03-04-2023 End: 03-04-2023 ambulatory Kvng Melgar Other [facility] Other Start: 03-04-2023 Office outpatient vi sit 15 minutes Kvng Ermelinda [facility] Start: 02-28-2023 End: 02-28-2023 ambulatory Kvng Melgar Other [employer] Other Start: 02-28-2023 Telephone encounter Kvng Ermelinda [facility] Start: 02-22-2023 End: 02-22-2023 ambulatory Kvng Melgar Other [employer] Other Start: 02-22-2023 Office outpatient vi sit 25 minutes Kvng Melgar [facility] Start: 02-21-2023 End: 02-21-2023 ambulatory Kvng Melgar Other [employer] Other Start: 02-21-2023 Telephone encounter Kvng Ermelinda [facility] Start: 01-24-2023 Telephone encounter Sadiq Pollard [facility] Start: 01-24-2023 End: 01-24-2023 ambulatory Imad Asaad [facility] [employer] Other Start: 01-24-2023 End: 01-24-2023 Admission to same day surgery center DO Kvng Melgar Work Phone: [facility] Work Phone: Start: 12-28-2022 End: 12-28-2022 ambulatory Kvng Melgar Other [employer] Other Start: 12-28-2022 Telephone encounter [facility] Start: 11-19-2022 End: 11-19-2022 ambulatory Kvng Melgar Other [facility] Other Start: 11-19-2022 Telephone encounter [facility] Start: 11-18-2022 End: 11-18-2022 ambulatory Kvng Melgar Other [facility] Other Start: 11-18-2022 Patient encounter procedure [facility] Start: 11-01-2022 End: 11-01-2022 ambulatory Imad Asaad Other [facility] Other Start: 11-01-2022 Telephone encounter Imad Asaad [facility] Start: 10-28-2022 Telephone encounter [facility] Start: 10-28-2022 End: 10-28-2022 ambulatory Imad Asaad Facility:[facility] Start: 10-28-2022 End: 10-28-2022 Admission to same day surgery center DO Kvng Melgar Work Phone: [facility] Work Phone: Start: 10-28-2022 End: 10-28-2022 ambulatory DO Kvng Ermelinda Work Phone: [facility] Work Phone: Start: 10-21-2022 End: 10-21-2022 ambulatory Kvng Melgar Other [employer] Other Start: 10-21-2022 Telephone encounter [facility] Start: 10-20-2022 End: 10-21-[address] KVNG MELGAR Facility:[facility] Start: 10-12-2022 End: 10-12-2022 ambulatory Kvng Melgar Other [employer] Other Start: 10-12-2022 Office outpatient vi sit 15 minutes Kvng Melgar [facility] Start: 10-12-2022 Telephone encounter Kvng [employer] Start: 09-27-2022 End: 10-13-[address] KVNG MELGAR Facility: Start: 07-29-2022 End: 07-29-2022 ambulatory Kvng Melgar Other [facility] Other Start: 07-29-2022 Telephone encounter [facility] Start: 07-27-2022 End: 07-27-2022 ambulatory KVNG MELGAR Facility:[facility] Start: 07-27-2022 End: 07-27-2022 Office outpatient visit 15 minutes Mavis Santiago MD Work Phone: Hematology/Oncology Comment on above: Iron deficiency (Danielle bethany Dx) Start: 07-26-2022 Telephone encounter Imad Asaad [facility] Start: 07-26-2022 End: 07-26-2022 Admission to same day surgery center DO Kvng Melgar Work Phone: [facility] Work Phone: Start: 07-26-2022 End: 07-26-2022 ambulatory DO Kvng Melgar Work Phone: [facility] Work Phone: Start: 07-22-2022 End: 07-22-2022 Patient encounter procedure DO Kvng Melgar Work Phone: [facility] Work Phone: Start: 07-21-2022 End: 07-21-2022 ambulatory Kvng Melgar Other [employer] Other Start: 07-21-2022 Office outpatient vi sit 25 minutes Kvng Melgar [facility] Start: 06-02-2022 Social Work Marcia Ramires [employer] Hematolo gy/Oncology Start: 05-25-2022 Telephone encounter Financial Navigator Damon Work Phone: Hematology/Oncology Comment on above: Benefits Investigati on Start: 05-25-2022 End: 05-26-2022 ambulatory Chair 8 Ryan Work Phone: Hematology/Oncology Comment on above: Iron deficiency anem ia, unspecified iron deficiency anemia type (Primary Dx); Iron deficiency Start: 05-18-2022 End: 05-18-2022 Patient encounter procedure Mavis Santiago MD Work Phone: [facility] Start: 05-18-2022 End: 05-18-2022 ambulatory Mavis Santiago MD Work Phone: Hematology/Oncology Comment on above: Iron deficiency (Danielle bethany Dx) Start: 05-18-2022 Telephone encounter Adebayo RODRIGES [employer] Start: 05-17-2022 Chart abstracting Mavis abraham MD Work Phone: Hematology/Oncology Start: 05-04-2022 End: 05-05-[address] KVNG MELGAR Facility:[facility] Start: 03-31-2022 End: 03-31-[address] KVNG MELGAR Facility:[facility] Start: 03-26-2022 End: 03-27-[address] KVNG MELGAR Facility:[facility] Start: 02-09-2022 End: 02-10-[address] KVNG MELGAR Facility:[facility] Start: 01-27-2022 End: 01-27-2022 ambulatory NISSA PACE . Facility:[facility] Start: 01-01-2022 End: 01-02-2022 ambulatory LIDA Ordaz Facility:[facility] Start: 12-18-2021 End: 12-19-[address] KVGN MELGAR Facility:[facility] Start: 06-09-2021 Adult health examination Fab Melgar Other [facility] Other Start: 08-02-2019 Preoperative cardiovascular examination Kvng Melgar Other [facility] Other Start: 05-31-2019 Gynecological examination normal Kvng Melgar Other [employer] Other Start: 01-05-2018 End: 01-06-2018 Evaluation and management of inpatient No Doctor Facility:[facility] Procedures Date Procedure Procedure Detail Performing Clinician Start: 07-25-2023 Radionuclide gastric emptying study DO Yolanda Melgar Work Phone: Start: 01-24-2023 Esophagogastroduodenoscopy DO Kvng Guerrero all Work Phone: Start: 10-28-2022 Esophagogastroduodenoscopy DO Kvng Guerrero all Work Phone: Start: 07-26-2022 Esophagogastroduodenoscopy DO Kvng Guerrero all Work Phone: Start: 07-22-2022 SARS Antigen (LFIA) DO Kvng Melgar Work Phone: Depression screening Adebayo Maxim Other Depression screening Aidee Melgar Other Screening for malign ant neoplasm of breast Adebayo Pan Other Screening for malign ant neoplasm of breast Kvng Melgar Other Plan of Treatment Date Care Activity Detail Author Start: 01-24-2023 End: 03-26-2023 CBC W Auto Differential panel - Blood CBC + DIFF Lab Routine Iron deficiency Expected: 01/24/2023 (Approximate), Expires: 03/26/2023 [facility] Work Phone: Comment on above: Expected: 01/24/2023 (Approximate), Expires: 03/26/2023 Start: 01-24-2023 End: 07-27-2023 Ferritin [Mass/volume] in Serum or Plasma FERRITIN BLD Lab Routine Iron deficiency Expected: 01/24/2023 (Approximate), Expires: 07/27/2023 [facility] Work Phone: Comment on above: Expected: 01/24/2023 (Approximate), Expires: 07/27/2023 Start: 01-24-2023 End: 07-27-2023 Iron and Iron binding capacity panel - Serum or Plasma IRON + TIBC Lab Routine Iron deficiency Expected: 01/24/2023 (Approximate), Expires: 07/27/2023 [facility] Work Phone: Comment on above: Expected: 01/24/2023 (Approximate), Expires: 07/27/2023 Start: 01-24-2023 [facility] Start: 10-28-2022 [facility] Start: 07-27-2022 End: 09-26-2022 CBC W Auto Differential panel - Blood CBC + DIFF Lab Routine Iron deficiency Expected: 07/27/2022 (Approximate), Expires: 09/26/2022 [facility] Work Phone: Comment on above: Expected: 07/27/2022 (Approximate), Expires: 09/26/2022 Start: 07-27-2022 End: 05-18-2023 Ferritin [Mass/volume] in Serum or Plasma FERRITIN BLD Lab Routine Iron deficiency Expected: 07/27/2022 (Approximate), Expires: 05/18/2023 [facility] Work Phone: Comment on above: Expected: 07/27/2022 (Approximate), Expires: 05/18/2023 Start: 07-27-2022 End: 05-18-2023 Iron and Iron binding capacity panel - Serum or Plasma IRON + TIBC Lab Routine Iron deficiency Expected: 07/27/2022 (Approximate), Expires: 05/18/2023 [facility] Work Phone: Comment on above: Expected: 07/27/2022 (Approximate), Expires: 05/18/2023 Start: 07-27-2022 End: 09-26-2022 RETIC COUNT RETIC COUNT Lab Routine Iron deficiency Expected: 07/27/2022 (Approximate), Expires: 09/26/2022 [facility] Work Phone: Comment on above: Expected: 07/27/2022 (Approximate), Expires: 09/26/2022 Start: 07-26-2022 [facility] Start: 07-11-2022 ADVANCE DIRECTIVE DISCUSSION ADVANCE DIRECTIVE DISCUSSION [facility] Start: 07-11-2022 DEPRESSION ASSESSMENT DEPRESSION ASS ESSMENT [facility] Start: 03-11-2022 Influenza vaccination INFLUENZA (#1) [facility] Start: 01-30-2022 COVID-19 VACCINE (5 - Booster for Pfizer series) COVID-19 VACCINE (5 - Booster for Pfizer series) [facility] Start: 07-11-2021 ADVANCE DIRECTIVE DISCUSSION ADVANCE DIRECTIVE DISCUSSION [facility] Start: 07-11-2021 DEPRESSION ASSESSMENT DEPRESSION ASS ESSMENT [facility] Start: 03-29-2019 PNEUMOCOCCAL: 65+ (2 - PCV) PNEUMOCOCCAL: 65+ (2 - PCV) [facility] Start: 11-15-2017 DIABETES SCREEN DIABETES SCREEN [facility] Start: 04-23-2016 PNEUMOCOCCAL: 65+ (2 - PCV) PNEUMOCOCCAL: 65+ (2 - PCV) [facility] Start: 2003 BONE DENSITY BONE DENSITY [facility] Start: 01-22-1988 SHINGRIX VACCINE (1 of 2) SHINGRIX VACCINE (1 of 2) [facility] Start: 1957 Urine microalbumin profile DTAP,TDAP,TD (1 - Tdap) [facility] Start: 1940 COVID-19 VACCINE (#1) COVID-19 VACCI NE (#1) [facility] Patient Education [facility] Work Phone: [facility] Immunizations Immunization Date Immunization Notes Care Provider Saurabh rico 04-26-2023 influenza, high dose seasonal, preservative-free Kvng Melgar Other [employer] Other 10-19-2022 COVID-19 Pfizer (bivalent) Kvng Melgar Other [facility] Other 12-05-2021 COVID-19 Pfizer Kvng mac Other [facility] Other 12-05-2021 COVID-19 Vaccine Pfi zer - Documentation Purposes Only Kvng Melgar Other [facility] Other 04-14-2021 COVID-19 Vaccine Pfi zer - Documentation Purposes Only Kvng Melgar Other [facility] Other 04-06-2021 influenza virus vaccine, split virus (incl. purified surface antigen) Kvng Melgar Other [facility] Other 04-06-2021 influenza, high-dose , quadrivalent vaccine (FLUZONE HIGH DOSE QUADRIVALENT) Mavis Santiago MD Work Phone: [facility] 08-27-2020 COVID-19 Vaccine Pfi zer - Documentation Purposes Only Kvng Melgar Other [facility] Other 08-04-2020 COVID-19 Vaccine Pfi zer - Documentation Purposes Only Kvng Melgar Other [facility] Other 04-04-2020 influenza virus vaccine, split virus (incl. purified surface antigen) Kvng Melgar Other [facility] Other 04-04-2020 influenza, high-dose , quadrivalent vaccine (FLUZONE HIGH DOSE QUADRIVALENT) Mavis Santiago MD Work Phone: [facility] 04-18-2019 influenza, injectabl e, quadrivalent, preservative free Mavis Santiago MD Work Phone: [facility] 03-22-2019 Seasonal trivalent influenza vaccine, adjuvanted, preservative free Mavis Santiago MD Work Phone: [facility] 04-13-2018 influenza virus vaccine, split virus (incl. purified surface antigen) Kvng Melgar Other [facility] Other 04-13-2018 Seasonal trivalent influenza vaccine, adjuvanted, preservative free Mavis Santiago MD Work Phone: [facility] 03-29-2018 pneumococcal polysaccharide vaccine, 23 valent Mavis Santiago MD Work Phone: [facility] 05-25-2017 Seasonal trivalent influenza vaccine, adjuvanted, preservative free Mavis Santiago MD Work Phone: [facility] 04-27-2016 influenza virus vaccine, split virus (incl. purified surface antigen) Kvng Melgar Other [facility] Other 04-27-2016 influenza, high dose seasonal, preservative-free Mavis Santiago MD Work Phone: [facility] 04-23-2015 influenza, injectabl e, quadrivalent, preservative free Mavis Santiago MD Work Phone: [facility] 04-23-2015 pneumococcal polysaccharide vaccine, 23 valent Mavis Santiago MD Work Phone: [facility] 04-18-2015 influenza virus vaccine, split virus (incl. purified surface antigen) Kvng Melgar Other [facility] [employer] Other 04-18-2015 pneumococcal conjuga te vaccine, 13 valent Kvng Melgar Other [facility] Other 05-21-2014 influenza, injectabl e, quadrivalent, contains preservative Adebayo Pan Other [facility] [employer] Other 04-26-2014 tetanus and diphther ia toxoids, adsorbed, preservative free, for adult use (5 Lf of tetanus toxoid and 2 Lf of diphtheria toxoid) Kvng Melgar Other [facility] Other 05-09-2013 pneumococcal polysaccharide vaccine, 23 valent Kvng Melgar Other [facility] Other 05-09-2013 tetanus and diphther ia toxoids, adsorbed, preservative free, for adult use (5 Lf of tetanus toxoid and 2 Lf of diphtheria toxoid) Kvng Melgar Other [facility] Other Payers Date Payer Category Payer Self-pay [id number] 2014 Private Health Insurance [id number] 2003 Medicare [id number] 1959 Medicare [id number] 1959 Private Health Insurance [id number] 1938 Unknown [id number] 2.16.84 [id number] 1938 Unknown [id number] 2.16.84 [id number] 1938 Unknown [id number] 2.16.84 [id number] 1938 Unknown [id number] 2.16.84 [id number] 1938 Unknown [id number] 2.16.84 [id number] 1938 Unknown [id number] 2.16.84 [id number] 1938 Unknown [id number] 2.16.84 [id number] 1938 Unknown [id number] 2.16.84 [id number] 1938 Unknown [id number] 2.16.84 [id number] Medicare [id number] Unknown [id number] 2.16.8 [id number] Unknown [id number] 2.16.8 [id number] Unknown [id number] [id number] Social History Date Type Detail Facility Start: 01-03-2015 End: 01-24-2023 Tobacco smoking status NHIS Ex-smoker [facility] History of tobacco use Current smoker [facility] Start: 01-03-2015 Tobacco use and exposure Smokeless tobacco non-user [facility] Start: 05-17-2022 End: 07-27-2022 Alcohol intake Ex-drinker (finding) [facility] Start: 1940 Sex Assigned At Not on file [facility] Start: 05-08-2022 End: 05-25-2022 Exposure to SARS-CoV-2 (event) Not sure [facility] Start: 07-26-2022 End: 10-28-2022 Tobacco smoking status AKIS Never smoked tobacco (finding) [facility] Start: 1940 Sex Assigned At Female F [facility] Sex Assigned At Sex Assigned At Bir th [place] Other Goals Date Patient Goal Desired Activity /State Clinical Notes 11-28-2019 to 08-10-2023 Note Date & Type Note Facility 08-10-2023 Evaluation note Encounter Date Diagnosis Assessment Notes Jul, Epigastric pain (ICD-10 - R10.13) Jul, Constipation (ICD-10 - K59.00) Oct, Nausea (ICD-10 - R11.0) Nausea [facility] [employer] Other 12-11-2023 Evaluation note* Encounter Date Diagnosis Assessment Notes Treatment Notes Treatment Clinical Notes Jun, Lumbar spondylosis (ICD-10 - M47.816) [facility] Other 11-21-2023 Evaluation note* Encounter Date Diagnosis Assessment Notes Treatment Notes Treatment Clinical Notes May, Claustrophobia (ICD-10 - F40.240) [facility] [employer] Other 11-17-2023 Evaluation note* Encounter Date Diagnosis Assessment Notes Treatment Notes Treatment Clinical Notes 17 Nov, 2023 Stage 3a chronic kidney disease (ICD-10 - [...] - R53.83) Check labs: CBC, TSH, BS 17 May, 2023 Other specified hypothyroidism (ICD-10 - E03.8) [facility] Other 11-10-2023 Evaluation note* Encounter Date Diagnosis Assessment Notes Treatment Notes Treatment Clinical Notes May, Lumbar spondylosis (ICD-10 - M47.816) [facility] Other 09-13-2023 Evaluation note* Encounter Date Diagnosis Assessment Notes Treatment Notes Treatment Clinical Notes Mar, Chronic superficial gastritis with bleeding (ICD-10 - K29.31) [facility] Other 08-25-2023 Evaluation note* Encounter Date Diagnosis Assessment Notes Treatment Notes Treatment Clinical Notes Feb, Allergic contact dermatitis due to plants, except food (ICD-10 - L23.7) Cool compresses, topical steroids and begin Prednisone. _update on Feb, Cellulitis of left upper extremity (ICD-10 - L03.114) Elevate and begin antibiotics, update on Tuesday [facility] Other 08-15-2023 Evaluation note* Encounter Date Diagnosis [...] exercise for 30 minutes, 3-5 times weekly. [facility] Other 08-14-2023 Evaluation note* Encounter Date Diagnosis Assessment Notes Treatment Notes Treatment Clinical Notes Feb, Lumbar spondylosis (ICD-10 - M47.816) [facility] Other 06-20-2023 Evaluation note* Encounter Date Diagnosis Assessment Notes Treatment Notes Treatment Clinical Notes Dec, Autoimmune thyroiditis (ICD-10 - E06.3) [facility] Other 05-12-2023 Evaluation note* Encounter Date Diagnosis Assessment Notes Treatment Notes Treatment Clinical Notes November, Lumbar spondylosis (ICD-10 - M47.816) [facility] Other 05-11-2023 Evaluation note* Encounter Date Diagnosis [...] E03.8) November, Lumbar spondylosis (ICD-10 - M47.816) [facility]EDURE: XR HIP LT 2 3V W [...] Electronically authenticated by: ANTHONY GUIDRY Date: 2022-10-20 15:40[facility]04-04-2023 Evaluation note* Encounter Date Diagnosis Assessment [...] mammogram for breast cancer (ICD-10 - Z12.31) [facility] Other 01-17-2023 NoteHNO ID: [id number] Author: Mavis Santiago MD Service: ? Author Type: Physician Type: Progress Notes Filed: 07/27/2022 2:56 PM Note Text: PATIENT NAME: Tangela Jocelyn [facility] NO.: [id number] ATTENDING PHYSICIAN: Mavis Santiago MD DATE OF [...] Status 07/27/2022 18.0 (H) (more content not included)...[facility] 07-27-2022 History of Present illness Narrative* Mavis Santiago MD - 07/27/2022 2:48 PM EST PATIENT NAME: Tangela Trinidad [facility] NO.: [id number] ATTENDING PHYSICIAN: Mavis Santiago MD DATE OF [...] 07/27/2022 3.25 1.00 - 4.00 k/uL Final Sutter% Date Value Ref Range Status 07/27/2022 14.0 % Final Abs [facility] Date Value Ref Range Status 07/27/2022 1.25 [...] do not hesitate to contact me at [phone]. Mavis Santiago MD Hematology/Medical Oncology [facility] Sa[facility]ra spent a total of 20 minutes on the date of the service which included preparing to see the patient, zvzl-im-fdzl patient care, completing clinical documentation, obtaining and/or reviewing separately obtained history, performing a medically appropriate examination, counseling and educating the pat ient/family/caregiver, and ordering medications, tests, or procedures. CC: Kvng Melgar DO documented in [facility] Evaluation note* Encounter Date Diagnosis Assessment Notes Treatment Notes Treatment Clinical Notes Jul, Acute gastric ulcer without hemorrhage or perforation (ICD-10 - K25.3) [facility] Other 01-16-2023 Procedure [facility]01-11-2023 Evaluation note* Encounter Date Diagnosis Assessment [...] Healty diet, keep active, consistent sleep routine [place] Other 11-23-2022 NoteHNO ID: [id number] Author: MONY Mart Service: ? Author Type: Install Technician Type: Progress Notes Filed: 06/02/2022 3:17 PM Note Text: Patient appears on the First Time Treatment List for a non-oncology treatment. No psychosocial assessment is indicated. KAYLEY Mart-[facility]11-23-2022 History of Present illness Narrative* MONY Mart - 06/02/2022 3:16 PM EST Patient appears on the First Time Treatment List for a non-oncology treatment. No psychosocial assessment is indicated. KAYLEY Mart-S documented in this encounterSelect [facility]11-15-2022 Miscellaneous Notes* Telephone Encounter - Mohit Lo [facility] [address] - 05/25/2022 3:32 PM EST 1st report of treatment-non oncology regimen (Monoferric) Patient holds Medicare coverage. No FA available at this time. Electronically signed by Mohit Lo [facility] [address] at 05/25/2022 3:35 PM EST documented in this encounterSelect Medical [facility]11-08-2022 NoteHNO ID: [id number] Author: Mavis Santiago MD Service: ? Author Type: Physician Type: Progress Notes Filed: 05/18/2022 4:08 PM Note Text: PATIENT NAME: Tangela Trinidad CLINIC NO.: [id number] ATTENDING PHYSICIAN: Mavis Santiago MD DATE OF [...] Final Lymph% Date Va (more content not included)...[facility]-08-[facility] History of Present illness Narrative* Mavis Santiago MD - 05/18/2022 3:51 PM EST PATIENT NAME: Tangela Trinidad CLINIC NO.: [id number] ATTENDING PHYSICIAN: Mavis Santiago MD DATE OF [...] 05/11/2018 2.74 1.00 - 4.00 k/uL Final Sutter% Date Value Ref Range Status 05/11/2018 12.1 % Final Abs [facility] Date Value Ref Range Status 05/11/2018 1.12 [...] do not hesitate to contact me at [phone]. Mavis Santiago MD Hematology/Medical Oncology [facility] I spent a total of 30 minutes on the date of the service which included preparing to see the patient, uanj-fk-tqje patient care, completing clinical documentation, obtaining and/or reviewing separately obtained history, performing a medically appropriate examination, counseling and educating the pat ient/family/caregiver, and ordering medications, tests, or procedures. Medical Decision Making: Medical Decision Making Level: 1 - N/A CC: Kvng Melgar DO documented in this encounterSelect [facility]11-19-2020 Progress note Author Karthikeyan Salcedo [facility] May 29, 2020 11:30am Note Date/Time May 29, 2020 11:29am [facility] [place] [address] Hem/Onc Follow Up Note - OP Signed Patient: Tangela Trinidad MR#: [id number] : 1940 Acct:[id number] Age/Sex: 80 / F Type: REG RCR [...] Rash Penicillins Allergy (Verified 11/28/19 10:23) Hives Xfqkwel-Ptp-Vku Reductase Inhibitor Allergy (Verified 11/28/19 10:23) Unknown [...] Neut % (Auto) 50.8,Lymph % (Auto) 30.1, Sutter % (Auto) 14.9, Eos % (Auto) 3.3, Baso % (Auto) 0.9, Neut # (Auto) 4.4, Lymph # (Auto) 2.6, Sutter # (Auto) 1.3 H, Eos # (Auto) [...] for coordination of care (as documented) and vltg-nv-cpof counseling of patient and/or family. Dictated By: Karthikeyan Salcedo MD DD/ Signed By: <Electronically signed by MD Karthikeyan Salcedo> 05/29/20 1130 [facility] Work Phone: [phone]) 824-663905-20-2020 Progress note Author Karthikeyan Salcedo [facility] November 28, 2019 12:52pm Note Date/Time November 28, 2019 12:50 pm [facility] [place] [address] Hem/Onc Follow Up Note - OP Signed Patient: Tangela Trinidad MR#: [id number] : 1940 Acct:[id number] Age/Sex: 79 / F Type: REG RCR [...] Rash Penicillins Allergy (Verified 11/28/19 10:23) Hives Myjqxmu-Npa-Hom Reductase Inhibitor Allergy (Verified 11/28/19 10:23) Unknown [...] Neut % (Auto) 49.9,Lymph % (Auto) 27.3, Sutter % (Auto) 15.1, Eos % (Auto) 6.5, Baso % (Auto) 1.2, Neut # (Auto) 4.3, Lymph # (Auto) 2.4, Sutter # (Auto) 1.3 H, Eos # (Auto) [...] for coordination of care (as documented) and kxjb-je-kqod counseling of patient and/or family. Dictated By: Karthikeyan Salcedo MD DD/ 1249 Signed By: <Electronically signed by MD Karthikeyan Salcedo> 11/28/19 1251 [facility] Work Phone: Evaluation note* Diagnosis Iron deficiency- Primary Iron deficiency anemia, unspecified documented in this encounter [facility] note* Diagnosis Iron deficiency anemia, unspecified iron deficiency anemia type- Primary Iron deficiency Iron deficiency anemia, unspecified documented in this encounter [facility] note* Diagnosis Iron deficiency- Primary Iron deficiency anemia, unspecified [facility] noteNo assessment information availableOhio[facility] Work Phone: Evaluation noteNo InformationNortVA hospital [employer] Other History and physical note Author Jeyson Diaz [facility] July 26, 2022 8:09am Note Date/Time July 26, 2022 8 :09am [facility] [address] [place] [address] Gastroenterology H&P Signed Patient: Tangela Trinidad MR#: [id number] : 1940 Acct:[id number] Age/Sex: 82 / F Adm Date: 3 Loc: Room: Type: [facility] Attending Dr: Jeyson Diaz MD Copies to: DO Jeyson Toledo MD~ Date of Service: 07/26/2022 HISTORY & [...] is an appropriate candidate for the procedure. Imad Asaad, M.D. Documented By: Jeyson Diaz MD 07/26/22808 Signed By: <Electronically signed by Jeyson Diaz MD> 07/26/22808 [facility] Work Phone: History and physical note Author Jeyson Diaz [facility] October 28, 2022 1:13pm Note Date/Time October 28, 2022 1:1 3pm [facility] [address] [place] [address] Gastroenterology H&P Signed Patient: Tangela Trinidad MR#: [id number] : 1940 Acct:[id number] Age/Sex: 82 / F Adm Date: 3 Loc: Room: Type: [facility] Attending Dr: Jeyson Diaz MD Copies to: DO Jeyson Toledo MD~ Date of Service: 10/28/2022 HISTORY & [...] signed by Jeyson Diaz MD> 10/28/22 1313 [facility] Work Phone: Hiszguc general Narrative - Reported* Type Description Date Medical History Cervical spondylosis Medical History Vitamin D deficiency Medical History Hyponatremia Medical History [place] Medical History Fatigue Medical History Depression screening Medical History Encounter for screening breast e xamination Medical History Leukocytosis 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 Medical History Essential hypertension Medical History [...] History colonoscopy 07/26/22 Hospitalization History see above [place] Other History general Narrative - Reported* Type Description Date Medical History Cervical spondylosis Medical History Vitamin D deficiency Medical History Hyponatremia Medical History [place] Medical History Fatigue Medical History Depression screening Medical History Encounter for screening breast e xamination Medical History Leukocytosis Medical History Chronic xopk-TCSVF-05 syndrome Medical History Essential hypertension Medical History [...] w/ biopsy 10/2022 Hospitalization History see above [place] Other Hisussc general Narrative - Reported* Type Description Date Medical History Cervical spondylosis Medical History Vitamin D deficiency Medical History Hyponatremia Medical History [place] Medical History Fatigue Medical History Depression screening Medical History Encounter for screening breast e xamination Medical History Leukocytosis Medical History Chronic xhxq-MWYDV-02 syndrome Medical History Essential hypertension Medical History [...] History EGD 01/2023 Hospitalization History see above [facility] Other Hospital Discharge instructions Additional Instructions DISCHARGE [...] NOT operate machinery such as power tools, Imonomin mowers, snow blowers, sewing machines, etc. for [...] -Follow up with PCP. - Office number [phone]. [facility] Work Phone: Hospital Discharge instructions Additional Instructions [...] NOT operate machinery such as power tools, Imonomin mowers, snow blowers, sewing machines, etc. for [...] problems. -Follow up with PCP. -Office number [phone]. [facility] Work Phone: Hospital Discharge instructions Additional [...] problems. -Follow up with PCP. -Office number [phone]. [facility] Work Phone: Summary Purpose Family [...] and content) DATE CREATED AUTHOR 01/06/2018 Bethany Merylsunny Stevie craig DATE CREATED AUTHOR AUTHOR'S ORGANIZ ATION 08/04/2022 [facility] DATE CREATED AUTHOR AUTHOR'S ORGANIZ ATION [facility]/10/2022 [facility] DATE CREATED AUTHOR AUTHOR'S ORGANIZ ATION 08/19/2023 [facility] Source Comments (unrecognize d section and content) In the event this informatio n is protected by the Federal Confidentiality of Alcohol and Drug Abuse Patient Records regulations: The Federal rules restrict any use of the information to criminally investigate or prosecute any alcohol or drug abuse patient.[facility] HospitalIn the event this information is protected by the Federal Confidentiality of Alcohol and Drug Abuse Patient Records regulations: The Federal rules restrict any use of the information to criminally investigate or prosecute any alcohol or drug abuse patient.[facility] HospitalIn the event this information is protected by the Federal Confidentiality of Alcohol and Drug Abuse Patient Records regulations: The Federal rules restrict any use of the information to criminally investigate or prosecute any alcohol or drug abuse patient.[facility] HospitalIn the event this information is protected by the Federal Confidentiality of Alcohol and Drug Abuse Patient Records regulations: The Federal rules restrict any use of the information to criminally investigate or prosecute any alcohol or drug abuse patient.[facility] HospitalIn the event this information is protected by the Federal Confidentiality of Alcohol and Drug Abuse Patient Records regulations: The Federal rules restrict any use of the information to criminally investigate or prosecute any alcohol or drug abuse patient.[facility] HospitalIn the event this information is protected by the Federal Confidentiality of Alcohol and Drug Abuse Patient Records regulations: The Federal rules restrict any use of the information to criminally investigate or prosecute any alcohol or drug abuse patient.[facility] Care Teams (unrecognized sec tion and content) Team Status: Active Member Role Status Dates Kvng Melgar DO Primary Care Provider Active Team Status: Inactive Member Role Status Dates Kvng Melgar DO Primary Care Provider Active Jeyson Diaz MD Attending Provider Active [employer]visor [employer] Relationship Specialty Start Date End Date Kvng Melgar DO PCP - General Internal Medicine 11/14/14 [employer] Relationship Specialty Start Date End Date Kvng Melgar DO PCP - General Internal Medicine 11/14/14 [employer] Relationship Specialty Start Date End Date Kvng Melgar DO PCP - General Internal Medicine 11/14/14 [employer]visor [employer] Relationship Specialty Start Date End Date Kvng Melgar DO PCP - General Internal Medicine 11/14/14 [employer]visor [employer] Relationship Specialty Start Date End Date Kvng Melgar DO PCP - General Internal Medicine 11/14/14 [employer] Relationship Specialty Start Date End Date Kvng Melgar DO PCP - General Internal Medicine 11/14/14 Reason for Visit (unrecogniz ed section and content) Reason Comments Anemia Transition of care. Ref back by Dr. Melgar Reason Comments Benefits Investigation Specialty Diagnoses / Procedures Referred By Contsuraj t Referred To Contact Diagnoses Iron deficiency anemia, unspecified iron deficiency anemia type Iron deficiency Mavis Santiago MD [address] [place] [id number] [facility] Treat Ryan [address] [place] [address] Referral ID Status Reason Start Date Expiration Date V isits Requested Visits Authorized [id number] Authorized 05/18/2022 08/16/2022 99 99 Reason Comments [...] BE BASED ON THE PRIMARY CLINICAL RECORDS. [facility] [employer] [facility]. provides no warranty or guarantee of the accuracy or completeness of information in this document.
== END 2024-01-03 09:17 | disposition home or self-care (01) ==
LOC: RAD 09:17
PROVIDERS: PCP Internal Medicine; Visit Provider Internal Medicine
DX: M25.561 Pain in right knee (principal); M25.551 Pain in right hip; M16.11 Unilateral primary osteoarthritis, right hip; Z96.651 Presence of right artificial knee joint; M25.461 Effusion, right knee
CPT/HCPCS: 73502; 73564

== ENCOUNTER 2024-03-02 09:31 | Outpatient (OUT) | payer MEDICARE, OTHER, SELFPAY ==
--- NOTE | 2024-03-02 09:40 | MR_ITS ---
The [address] [address] Patient Name: ELIANE MOSS MRN: [id number] date: 1940 Sex: F Assigned Patient Location: MRI Current Patient Location: MRI Accession/Order Number: [id number] Exam Date: 03/02/2024 09:52 Report Date: 03/02/2024 12:43 At the request of: TED GILMORE Procedure: MR lumbar spine wo con EXAMINATION: MR lumbar spine wo con HISTORY: Degenerative Disc Disease M51.36 COMPARISON: No relevant comparison available. TECHNIQUE: A variety of imaging planes and parameters were utilized for visualization of suspected pathology. FINDINGS: For the purposes of numbering, sagittal T2 image # 8 extends from the T10 vertebral body superiorly to the S4 level inferiorly. PARASPINAL AREA: Normal with no visible mass. BONES: Rotatory dextrocurvature with moderate to severe diffuse degenerative spondylosis and facet osteoarthropathy CORD/CAUDA EQUINA: Normal caliber, contour, and signal intensity. DISC LEVELS: 12-L1: No significant disc/facet abnormality, spinal stenosis, or foraminal stenosis. L1-L2: Disc collapse with endplate sclerosis. Moderate diffuse disc/osteophyte complex. Ligament flavum hypertrophy and facet osteoarthropathy. No central canal or right foraminal stenosis. Moderate narrowing of the left neural foramen L2-L3: Disc collapse with endplate sclerosis. Severe ligamentum flavum hypertrophy facet osteophyte arthropathy and degenerative spondylosis resulting in moderate to severe central canal stenosis axial image 19 and moderate to severe bilateral foraminal stenosis L3-L4: Disc collapse with endplate sclerosis. Moderate diffuse disc/osteophyte complex and ligamentum flavum hypertrophy and facet osteoarthropathy. Severe central canal stenosis axial image #23. Severe bilateral foraminal stenosis L4-L5: Disc collapse with endplate sclerosis. Moderate diffuse disc/osteophyte complex and ligamentum flavum hypertrophy and facet osteoarthropathy. Moderate to severe central canal stenosis axial image 27. Moderate bilateral foraminal stenosis L5-S1: Interbody fusion. No disc bulge or herniation. No central or foraminal stenosis MR/MR lumbar spine wo con IMPRESSION: Extensive degenerative changes with central and foraminal stenosis at multiple levels detailed above Electronically authenticated by: AMADO BANG Date: 03/02/2024 12:43
== END 2024-03-02 09:32 | disposition home or self-care (01) ==
LOC: MRI 09:34
PROVIDERS: PCP Internal Medicine; Visit Provider Nurse Practitioner Family
DX: M51.36 Other intervertebral disc degeneration, lumbar region (principal); M48.062 Spinal stenosis, lumbar region with neurogenic claudication
CPT/HCPCS: 72148

== ENCOUNTER 2024-03-28 09:58 | Outpatient (OUT) | payer MEDICARE, OTHER, SELFPAY ==
[2024-03-28 10:28] LABS: Basophils Absolute Auto 0.1 10^3/uL (0.0-0.1); Basophils Percent Auto 0.8 % (0.2-2.0); Eosinophils Absolute Auto 0.2 10^3/uL (0.0-0.7); Hematocrit 37.2 % (36.0-48.0); Hemoglobin 12.4 g/dL (12.0-16.0); Immature Granulocytes Abs Auto 0.05 10^3/uL (0.00-0.03); Immature Granulocytes Pct Auto 0.5 % (0.0-0.5); Lymphocytes Absolute Auto 1.9 10^3/uL (1.2-3.8); Lymphocytes Percent Auto 20.4 % (20.5-60.0); Mean Corpuscular HGB Conc 33.3 g/dL (29.9-35.2); Mean Corpuscular Hemoglobin 30.7 pg (26.7-34.0); Mean Corpuscular Volume 92.1 fL (81.0-99.0); Mean Platelet Volume 9.5 fL (9.5-13.5); Monocytes Percent Auto 11.2 % (1.7-12.0); Neutrophils Percent Auto 65.1 % (43.0-75.0); Platelet Count 287 10^3/uL (150-450); Red Blood Count 4.04 10^6/uL (4.20-5.40); Red Cell Distribution Width 14.2 % (11.0-15.0); White Blood Count 9.1 10^3/uL (4.0-11.0)
[2024-03-28 10:46] LABS: Percent Iron Saturation 26.1 %
== END 2024-03-28 09:59 | disposition home or self-care (01) ==
LOC: LAB 10:00
PROVIDERS: PCP Internal Medicine; Visit Provider Internal Medicine
DX: D64.9 Anemia, unspecified (principal)
CPT/HCPCS: 36415; 82728; 83540; 83550; 85025

== ENCOUNTER 2024-04-02 13:03 | Outpatient (OUT) | payer MEDICARE, OTHER, SELFPAY ==
--- NOTE | 2024-04-02 14:29 | P.CN_ITS ---
Consult Note: HPI Data of Consult Patient: new to practice Consult date: 04/02/24 Requesting Physician: Charlotte Levi MD Primary Care Provider: Kvng Melgar, Consult Narrative Reason for consult: low back, right leg pain Narrative: 84yof who presents for evaluation. longstanding low back, right leg pain. imaging shows multilevel severe stenosis, worst at l3-4 and l4-5. fused from l5- s1. has engaged in a series of provider directed home exercises >6 weeks without lasting benefit. uses otc pain meds as needed. denies adverse med side effects. cc:: CC: Charlotte Levi MD Review of Systems ROS Status of ROS 10 or more systems reviewed and unremark able except as noted in history and below Meds Home Medications and Allergies Home Medications ?Medication ?Instructions ?Recorded ?Confirmed ?Type amlodipine 5 mg tablet 5 mg PO DAILY 04/02/24 04/02/24 History atenolol 25 mg tablet 25 mg PO DAILY 04/02/24 04/02/24 History cholecalciferol (vitamin D3) 10 800 unit PO DAILY 04/02/24 04/02/24 History mcg (400 unit) capsule levothyroxine 112 mcg tablet 112 mcg PO DAILY 04/02/24 04/02/24 History multivitamin (Daily Multi-Vitamin 1 tab PO DAILY 04/02/24 04/02/24 History tablet) pantoprazole 40 mg tablet,delayed 40 mg PO DAILY 04/02/24 04/02/24 History release tramadol 50 mg tablet 50 mg PO DAILY 04/02/24 04/02/24 History Allergies Allergy/AdvReac Type Severity Reaction Status Date / Time Penicillins Allergy Unknown Unknown Verified 04/02/24 14:27 Sulfa (Sulfonamide Allergy Unknown Unknown Verified 04/02/24 14:27 Antibiotics) vancomycin Allergy Unknown Unknown Verified 04/02/24 14:27 CELASPOR Allergy Unknown Unknown Uncoded 04/02/24 14:27 MACRODANTIN Allergy Unknown Unknown Uncoded 04/02/24 14:27 STATINS Allergy Unknown Unknown Uncoded 04/02/24 14:27 Exam Narrative Exam Narrative: Psych-alert and oriented x 3. Attentive and appropriate, constitutionally normal, displays normal mood and affect per situation. There are no obvious deficits in memory, reasoning, or intellect.? Skin-no obvious rashes, bruising, erythema noted to the patient's area of pain.? Extremities- extremities are warm with minimal edema and palpable pulses. Lumbar-tenderness to palpation noted in the lumbar spine and paraspinal musculature. Pain is not elicited with flexion, extension, and lateral rotation of the lumbar spine. Range of motion is not diminished with these motions. Facet loading maneuvers are negative.? Strength-noted to be unremarkable with the exception of decreased strength rated at 4 out of 5 in right quadriceps femoris, anterior tibialis. Sensory-no notable sensory deficits in the bilateral lower extremities to touch or pinprick in all dermatomal distributions with the exception to decreased sensation to the right L3, 4, 5 dermatomal distribution Sacroiliac - tender to palpation over right PSIS. Positive Clark's on the right. Positive thigh thrust on the right. Coordination remains intact.? Gait remains non-antalgic Assessment and Plan Assessment and Plan (1) Lumbar stenosis with neurogenic claudication: (2) Sacroiliac joint disease: (3) Lumbar postlaminectomy syndrome: Plan 84yof who presents for evaluation. failed conservative measures, as noted. imaging reviewed, as noted. given symptoms and imaging, prudent to attempt right l3-4, l4-5 tfesi under fluoroscopic guidance. may even benefit from right sij injection. she is in agreement. meds reviewed, no changes. follow up after procedure.
== END 2024-04-02 13:04 | disposition home or self-care (01) ==
LOC: PM 13:04
PROVIDERS: PCP Internal Medicine; Visit Provider Anesthesiology
DX: M48.062 Spinal stenosis, lumbar region with neurogenic claudication (principal); M96.1 Postlaminectomy syndrome, not elsewhere classified; M53.3 Sacrococcygeal disorders, not elsewhere classified
CPT/HCPCS: G0463

== ENCOUNTER 2024-04-09 09:13 | Day surgery (SDC) | payer MEDICARE, OTHER, SELFPAY ==
--- OUTSIDE RECORDS SUMMARY | 2024-04-09 09:30 | XMS_ITS | CCD ---
Author Organization [facility] Care Team Providers Care Electronic Page Makeup System Operator Name Role Phone Doctor, No Unavailable Unavailable Doctor, No Unavailable Unavailable Donnell Barton Unavailable Unavailable Donnell Barton Unavailable Unavailable Kvng Melgar DO Primary Care Provider Kvng Melgar DO Primary Care Provider DO Kvng Melgar Primary Care Provider [phone] MD Jeyson Diaz Attending Provider KVNG MELGAR [...] Care Provider MD Jeyson Diaz Attending Provider [phone] ERMELINDA, DR CALDERON Primary Care Unavailable ERMELINDA, DR CALDERON Attending Unavailable BALL, DR CALDERON Admitting Unavailable BALL, DR CALDERON Consulting Unavailable ZIMICHEAL, DR ANTHONY Gautam Consulting Unavailable BALL, DR CALDERON Consulting Unavailable BALL, [...] Unavailable Ball, DO Calderon Primary Care Provider MD Jeyson Diaz Attending Provider [phone] Ermelinda, DO Calderon Primary Care Provider MD Joe Imprice Attending Provider [phone] Ermelinda, DO Calderon Primary Care Provider [phone] DO Lorelei Hurtado Attending Provider [phone] Kvng Melgar Primary Care Unavailable Lorelei Hurtado Admitting Unavailab Lorelei Wetzel Attending Unavailab le Ermelinda, Kvng Primary Care Unavailable Asaad, Imad Admitting Unavailable Asaad, Imad Attending Unavailable TED GILMORE Attending Unavailable TED GILMORE Referring Unavailable LORELEI HURTADO Attending Unavailable LORELEI HURTADO Attending Unavailable NICHO MARC Attending Unavailable LORELEI HURTADO Attending Unavailable Charlotte Levi MD Attending Unavailable Allergies Allergy Classification Reported Allergen(s) Allergy Type Date of Onset Reaction(s) Facility (8 sources) Penicillins; Translations: [PENICILLINS] Drug allergy (disorder) 11-16-19 15 AOF, Hives, Hives, PENICILLINS [facility] Repository (8 sources) Sulfonamides (Antibiotic); Translations: [SULFA (SULFONAMIDE ANTIBIOTICS)] Drug allergy (disorder) 11-16-19 15 AOF, Hives, Hives, Comment:2005 [facility] Repository (7 sources) Nxveslz-Sre-Jcw Reductase Inhibitor Drug allergy (disorder) 01-06-20 18 Unknown Reaction, Unknown Reaction, muscle aches [facility] Repository (20 sources) Cephalosporins (Antibiotic); Translations: [CEPHALOSPORINS] Drug Allergy 10-24-19 15 Unknown [facility] (7 sources) HMG-CoA reductase inhibitor; Translations: [ENCKSCW-XHB-ZZY REDUCTASE INHIBITORS] Drug Allergy 01-06-20 18 Unknown [facility] (7 sources) Nitrofurantoin; Translations: [NITROFURANTOIN MACROCRYSTAL] Drug Allergy 10-12-19 19 Rash, Itching [facility] (6 sources) Penicillins Drug Allergy 11-16-19 15 [facility] (20 sources) Povidone-Iodine; Translations: [POVIDONE-IODINE] Drug Allergy 06-21-20 19 Unknown [facility] (20 sources) Sulfonamides (Antibiotic) Drug Allergy 11-16-19 15 [facility] (20 sources) Vancomycin; Translations: [VANCOMYCIN] Drug Allergy 10-12-19 19 Rash, Itching [facility] (20 sources) Nitrofurantoin; Translations: [nitrofurantoin] Drug Allergy 12-02-19 21 rash [facility] (20 sources) Penicillin G Benzathine Drug allergy rash [facility] Other (20 sources) Sulfacetamide / Sulfur Drug Allergy rash [facility] Other (20 sources) Statins Depletion Drug allergy muscle aches [facility] Other (1 source) black walnut pollen extract Drug Allergy 05-17-20 14 [facility] Rep[facility] (1 source) Cephalosporins (Antibiotic) Drug allergy (disorder) 10-24-19 15 [facility] (2 sources) Nitrofurantoin Drug Allergy 10-24-19 15 rash [facility] (1 source) Penicillins Drug allergy (disorder) 01-24-20 13 [facility] (2 sources) Povidone-Iodine Drug Allergy 06-21-20 19 Unknown [facility] (1 source) Sulfonamides (Antibiotic) Drug allergy (disorder) 01-31-20 13 [facility] (1 source) Vancomycin Drug Allergy 10-24-19 15 [facility] (20 sources) Statins Depletion *DIETARY PRODUCTS/DIETARY MANAGE Propensity to adverse reactions Unknown [facility] Other (20 sources) Substance with penicillin structure and antibacterial mechanism of action (substance) Drug allergy 04-30-20 06 PENICILLINS [facility] Other (20 sources) Sulf-10 Drug allergy 12-01-19 06 SULFA 10 [facility] Other (1 source) Vancomycin Drug Allergy rash [facility] Other (1 source) Cephalosporins (Antibiotic) Drug allergy (disorder) 03-16-20 [facility] (1 source) Povidone-Iodine Drug Allergy 03-16-20 [facility] (1 source) Vancomycin Drug Allergy 03-16-20 [facility] Medications Current Medications Medication Drug Class(es) Dates Sig (Normalized) Sig (Original) acetaminophen 500 mg oral tablet (10 sources) Start: 07-26-2022 take 1 tablet by [...] by mouth every four to six hours Gfoseng-Zmrlphtzfeeie-Llkffzzu (Excedrin Migraine) 250-250-65 mg Tablet Active 1 TAB PO EVERY 4-6 HOURS July 26, 2022 1:00am take 2 tablets by mouth every si x hours Excedrin Migraine 250-250-65 MG 2 tablets as needed Orally every 6 hrs Active [id number] actuat albuterol 0.09 mg/actuat metered dose [...] (20 sources) Dihydropyridine Calcium Channel Frandy Start: take 5 mg by mouth once daily Amlodipine Active 5 MG PO Daily October 12, 2023 11:51am Start: 10-07-2023 End: 10-12-2023 take 1 tablet by mouth once daily Amlodipine Discontinued 0 .ROUTE .COMPLEX October 07, 2023 12:55pm October 12, 2023 11:53am TAKE 1 TABLET BY MOUTH EVERY DAY Start: 11-28-2019 take 2.5 mg by mouth once corona y Amlodipine (Norvasc) 5 mg Tablet Active 2.5 MG PO Daily November 27, 2019 11:00pm Start: 09-02-2018 End: 10-07-2023 take 1 tablet by mouth once daily Amlodipine (Norvasc) 5 mg Tablet Discontinued 5 MG PO Daily November 28, 2019 12:00am October 07, 2023 12:55pm Comment on above: TK 1 T PO QD ascorbic acid 500 mg oral capsule (3 sources) Vitamin C Vitamin C 500 MG Orally Active atenolol 25 mg oral tablet (20 sources) beta-Adrenergic Frandy Start: 01-19-2024 take 1 tablet by mouth once daily Atenolol Active 0 .ROUTE .COMPLEX January 19, 2024 8:31am TAKE 1 TABLET BY MOUTH EVERY DAY Start: 11-15-2014 End: 01-19-2024 take 1 tablet by mouth once daily Atenolol (Tenormin) 25 mg Tablet Discontinued 25 MG PO Daily November 28, 2019 12:00am January 19, 2024 8:31am Comment on above: Take 1 tablet by george th once daily. Calcium + D 315-200 MG-UNIT (20 sources) take 1 tablet by mouth twice daily at mealtime Calcium + D 315-200 MG-UNIT 1 tablet with meals Orally Twice a day Active calcium carbonate 1500 mg oral tablet (5 sources) Start: 2022 Calcium Carbonate (Calcium 600) 600 mg calcium (1,500 mg) Tablet Active 1200 MG PO Daily July 26, 2022 1:00am cholecalciferol 0.01 mg chewable tablet (5 sources) Vitamin D Start: 2022 take 1 [...] Start: 12-28-2017 take 1 capsule by mo [facility] every twelve hours Doxycycline Hyclate 100 MG 1 capsule Orally every 12 hrs for 10 days Dec, Not-Taking levothyroxine sodium 0.112 mg oral tablet (20 sources) l-Thyroxine Start: 01-03-2024 take 1 tablet by mouth once daily in the morning Levothyroxine Active 0 .ROUTE .COMPLEX 90 January 03, 2024 8:38am TAKE 1 TABLET BY MOUTH EVERY DAY IN THE MORNING ON AN EMPTY STOMACH FOR 30 DAYS Start: 12-28-2022 take 1 tablet by george once daily in the morning Levothyroxine Sodium 112 MCG 1 tablet in the morning on an empty stomach Orally Once a day Dec, Active Start: 10-05-2018 End: 01-03-2024 take 1 tablet by mouth once daily Levothyroxine (Synthroid) 112 mcg Tablet Discontinued 112 MCG PO Daily November 28, 2019 12:00am January 03, 2024 8:38am Start: 10-05-2018 levothyroxine (SYNTHROID) 112 mcg tablet 0.125 mcg. 2 10/05/2018 Active take 1 tablet by george th every twenty-four hours Levothyroxine Sodium 137 MCG 1 tablet Orally Once a day Active Comment on above: TAKE 1 TABLET BY GEORGE TH EVERYDAY ON AN EMPTY STOMACH 0.125 mcg. LORazepam 0.5 mg oral tablet (8 sources) Benzodiazepine Start: 10-12-2023 take 0.5 mg by mouth once daily Lorazepam Active 0.5 MG PO Daily 07 11October 12, 2023 12:00am Take 1 hour prior to testing Start: 05-31-2023 LORazepam 0.5 MG 1 tablet Orally one hour before procedure for 1 days May, Active Multivitamin preparation (20 sources) Multivitamin Act kerri Multivitamin Not -Taking [place] 3 1200 MG (20 sources) take 1 capsule by mo uth once daily [place] 3 1200 MG 1 capsule Orally Once a day Active take 1 capsule by mouth once taniya ly [place] 3 1200 MG 1 capsule Orally Once a day Not-Taking pantoprazole 40 mg delayed release oral tablet (20 sources) Proton Pump Inhibitor Start: 03-25-2023 Pantoprazole Sodium 40 MG 1 tablet 30 minutes prior to morning meal Orally Once a day for 30 days Mar, Active Start: 10-28-2022 take 40 mg by mouth twice daily Pantoprazole Active 40 MG PO Twice daily 180 90 October 28, 2022 1:33pm Start: 07-26-2022 End: 10-28-2022 take 40 mg by mouth once daily Pantoprazole Discontinu ed 40 MG PO Daily October 28, 2022 12:00am October 28, 2022 1:33pm predniSONE 20 mg oral tablet (8 sources) Start: 03-04-2023 predniSONE 20 MG 1 tablet Orally bid w /food x 3 days then qd w/ food x 3 days for 6 days Feb, Active red yeast rice 600 mg oral tablet (5 sources) Start: 07-26-2022 take 2400 mg by mouth once daily Red Yeast Rice Active 2400 MG PO Daily July 26, 2022 1:00am give with meal/snack Red Yeast Rice (20 sources) Red Yeast Rice A ctive Selenimin (20 sources) Selenimin Active Selenimin Not-[place] traMADol hydrochloride 50 mg oral tablet (20 sources) Opioid Agonist Start: 12-15-2023 take 50 mg by mouth every eight hours Tramadol Active 50 MG PO Every 8 hours 70 30 December 15, 2023 7:37am p/u 12/14, start 12/16 Start: 10-12-2022 End: 12-15-2023 take 50 mg by mouth twice daily Tramadol Discontinued 50 MG PO Twice daily October 28, 2022 12:00am September 16, 2023 7:48am Start: 11-15-2014 End: 05-18-2022 take 1 tablet by mouth every four hours as needed traMADol (ULTRAM) 50 mg tablet Take 1 tablet by mouth every 4 hours as needed for Pain. 0 11/15/2014 05/18/2022 Discontinued (Course of therapy completed) Comment on above: Take 1 tablet by george th every 4 hours as needed for Pain. triamcinolone acetonide 1 mg/ml topical cream (20 sources) Corticosteroid Start: 09-16-2023 Triamcinolone Acetonide Active 0 .ROUTE .COMPLEX 45 September 16, 2023 7:48am APPLY 1 APPLICATION EXTERNALLY TWICE A WEEK FOR 7 DAYS Start: 09-15-2023 End: 09-16-2023 Triamcinolone Acetonide Disc ontinued 1 APPLIC TOPICAL Twice daily September 15, 2023 1:00am September 16, 2023 7:48am Start: 03-11-2023 Triamcinolone Acetonide 0.5 % 1 [...] needed Orally every 6 hrs Not-Taking Vit C,E-Wm-Baxio-Lutein-Zeax an (Preservision Areds-2) 250-90-40-1 mg Capsule (5 sources) Start: 07-26-2022 Vit C,Y-Cj-Hkfgi-Lutein-Zeax an (Preservision Areds-2) 250-90-40-1 mg Capsule Active 1 TAB PO Twice daily July 26, 2022 1:00am Start: 07-26-2022 Vit C,E-Zn-Commercial Census Taker cy-Fxtpbq-Xjioqn (Preservision Areds-2) 250-90-40-1 mg Capsule Active 1 TAB PO Twice daily July 26, 2022 12:00am Vitamin C 500 MG (20 sources) Vitamin C 500 MG Orally Active Vitamin C 500 MG Orally Not-Taking vitamin e d-alpha 400 unt oral capsule (3 sources) take 1 capsule by [facility] every twenty-four hours Vitamin E 400 UNIT 1 capsule Orally Once a day Active Vitamin E 400 UNIT (20 sources) take 1 capsule by mo [facility] once daily Vitamin E 400 UNIT 1 [...] Comment on above: Take by mouth. CA/D3/MAG OX/ZINC/ROTARY LITHOGRAPHIC PRESS OPERATOR/MEREDITH/ BOR (CALCIUM 600+D3 PLUS ORAL) (6 sources) take 1200 mg by mouth once daily CA/D3/MAG OX/ZINC/ROTARY LITHOGRAPHIC PRESS OPERATOR/MEREDITH/B OR (CALCIUM 600+D3 PLUS ORAL) Take 1,200 mg by mouth once daily. 0 Active Comment on above: [facility] celecoxib 100 mg oral capsule (7 sources) Nonsteroidal Anti-inflammatory Drug Start: 11-28-2019 End: [...] mg by mouth twice daily. estrogens, conjugated (correction) 0.3 mg oral tablet (20 sources) Estrogen [...] 0 Active Comment on above: Use vaginally. famotidine 20 mg oral tablet (20 sources) Histamine-2 Receptor Antagonist Start: 3 End: 4 take 1 tablet by mouth once daily before mealtime Famotidine (Pepcid Ac) 20 mg Tablet Discontinued 20 MG PO Daily July 26, 2022 1:00am August 29, 2023 1:48pm take 1 tablet by mouth twice taniya ly famotidine (PEPCID) 20 mg tablet Take 20 mg by mouth twice daily. 0 Active Comment on above: Take 20 mg by mouth twice daily. glucosamine sulfate 750 mg oral tablet (3 sources) Start: 2022 End: 2023 take 1 tablet by mouth once daily Glucosamine Sulfate (Dayan) 750 mg Tablet Discontinued 750 MG PO Daily January 24, 2023 12:00am August 29, 2023 1:48pm administer with a meal losartan potassium 50 mg oral tablet (20 sources) Angiotensin 2 Receptor Frandy Start: 2023 End: 2023 take 50 mg by mouth once daily Losartan Discontinued 50 MG PO Daily August 29, 2023 1:00am September 01, 2023 12:36pm methylPREDNISolone 4 mg oral tablet (20 sources) Corticosteroid methylPREDNISolo ne 4 MG as directed Orally take as directed for 6 days Not-Taking 24 hr metoprolol succinate 25 mg extended release oral tablet (7 sources) beta-Adrenergic Frandy Start: 2019 End: 2019 [...] Ascending aorta dilatation; Translations: [Thoracic aortic ectasia] 08-31-2023 Chronic Blindness and vision defects (1 source) Diplopia; Translations: [Diplopia] 10-10-2023 Episodic Chronic kidney disease (20 sources) Chronic kidney disease stage 3A ; Translations: [Stage 3a chronic kidney disease] Onset: 08-29-2018 08-29-2023 Chronic Chronic obstructive pulmonary disease and bronchiectasis [...] [Familial hypercholesterolemia] Onset: 04-18-2015 Chronic Esophageal disorders (18 sources) Gastro-esophageal reflux disease with esophagitis; Translations: [Gastroesophageal reflux disease 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 hemorrhage] 08-29-2023 Chronic Essential hypertension (20 sources) Essential hypertension; [...] D deficiency; Translations: [Vitamin D deficiency, unspecified] 08-29-2023 Chronic Nutritional deficiencies (9 sources) Iron deficiency; Translations: [Iron deficiency] Onset: 11-15-2014 11-15-2014 Episodic Osteoarthritis (20 sources) Osteoarthritis of knee; Translations: [Unilateral primary osteoarthritis, right knee] Onset: 10-23-2013 Chronic Osteoporosis (20 sources) Primary osteoporosis; Translations: [Age-related osteoporosis without current pathological fracture] Chronic Other aftercare (2 sources) 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; Translations: [DETENTION CURRNT USE OPIATE ANALGES] Onset: 10-26-2022 Episodic [...] venous insufficiency; Translations: [Venous insufficiency (chronic) (peripheral)] 08-29-2023 Episodic Other diseases of veins and lymphatics (5 sources) Venous insufficiency (chronic) (peripheral); Translations: [Venous (peripheral) insufficiency, unspecified] Episodic Other disorders of stomach and duodenum (17 sources) Indigestion; Translations: [Functional dyspepsia] Episodic Other endocrine disorders (20 sources) Syndrome of inappropriate vasopressin secretion; 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] Chronic Other endocrine disorders (1 source) Syndrome of inappropriate secretion of antidiuretic hormone; 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)] Chronic Other eye disorders (1 source) Partial palsy of left oculomotor nerve; Translations: [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] nerve palsy, left eye] 10-05-2023 Episodic Other eye disorders (1 source) Abducens nerve palsy; 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 [abducent] nerve palsy, unspecified eye] 10-10-2023 Episodic Other eye disorders (1 source) Ptosis of eyelid; Translations: [Unspecified ptosis of unspecified eyelid] 10-10-2023 Episodic Other eye disorders (1 source) Sixth [abducent] nerve palsy, unspecified eye; 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 or abducens nerve palsy] 01-02-2024 Episodic Other eye disorders (1 source) 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] nerve palsy, left eye; Translations: [Third or oculomotor nerve palsy, partial] 01-02-2024 Episodic Other gastrointestinal disorders (20 sources) Irritable bowel [...] sources) Chronic pain; Translations: [Other chronic pain] 08-31-2023 Chronic Other nervous system disorders (1 source) Other chronic pain; Translations: [OTHER CHRONIC PAIN] Onset: 12-21-2021 Chronic Other nervous system disorders (1 source) Myasthenia gravis without (acute) exacerbation; Translations: [Myasthenia gravis without (acute) exacerbation] Onset: 03-16-2024 Chronic Other nervous system disorders (20 sources) Abnormal gait; Translations: [Unsteadiness on feet] Episodic Other nervous system disorders (1 source) Unsteadiness on feet Episodic Other nervous system disorders (1 source) Unspecified abnormalities of gait and mobility; Translations: [UNS ABNORMALITIES GAIT AND MOBILITY] Onset: 09-28-2022 Episodic Other nervous system disorders (13 sources) Paresthesia; Translations: [Paresthesia of skin] 08-29-2023 Episodic Other nervous system disorders (2 sources) Paresthesia of skin Episodic Other non-traumatic joint disorders (2 sources) Pain in right knee; Translations: [Right knee pain] 01-02-2024 Episodic Other non-traumatic joint disorders (1 source) Hip pain; Translations: [Pain in right hip] 01-02-2024 Episodic Other non-traumatic joint disorders (1 source) Pain in right hip; Translations: [Pain in joint, pelvic region and thigh] 01-02-2024 Episodic Other nutritional; endocrine; and metabolic disorders [...] Spondylosis; intervertebral disc disorders; other back problems (4 sources) Low back pain; Translations: [Low back pain, unspecified] Episodic Thyroid disorders (20 sources) Rhett thyroiditis; 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-2022 Chronic Transient cerebral ischemia (20 sources) Vertebrobasilar artery syndrome; 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 Unclassified (20 sources) Left-sided low back pain without sciatica, unspecified chronicity; Translations: [Left-sided low back pain without sciatica, unspecified chronicity] Unclassified (20 sources) 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; Translations: [Chronic ccsu-CVHKU-25 syndrome] Unclassified (3 sources) LOW BACK PAIN, [...] exposure to COVID-19] Unclassified (1 source) Chronic qyag-JQZWX-46 syndrome; Translations: [Chronic iycx-YFJWK-24 syndrome] Viral infection (4 sources) COVID-19; Translations: [...] 05-22-2020 Episodic Other aftercare (1 source) Other controls project engineer (current) drug therapy; Translations: [OTH SPACE TECHNOLOGIST CURRENT DRUG THERAPY] Onset: 01-29-2022 Episodic Other [...] Test Name Value Interpretation Reference Range Facility CT chest w conon 03-16-2024 CT chest w [facility] [place] [address] CT Scan Report Signed Patient: Tangela Trinidad MR#: [id number] : 1940 Acct:[id number] Age/Sex: 84 / F ADM Date: 03/16/24 Loc: CT Room: Type: [facility] Attending Dr: Lorelei Hurtado DO Copies to: Lorelei Hurtado DO Ordering Provider: Lorelei Hurtado DO Date of Service: 03/16/24 CT/CT chest w con: G70.00, H02.402, H49.22 CT CHEST WITH INTRAVENOUS CONTRAST: CLINICAL HISTORY: New diagnosis of myasthenia gravis. COMPARISON: None TECHNIQUE: Spiral images were obtained through the chest following intravenous administration of IV contrast. This CT exam was performed using one or more following dose reduction techniques: Automated exposure control, adjustment of the mA and/or kV according to patient size, or use of iterative reconstruction technique. FINDINGS: Mediastinum:Vascular appears normal in caliber. Pulmonary trunk appears nondilated. No pericardial effusion or lymphadenopathy. The esophagus is grossly unremarkable. Lungs:No consolidation pneumothorax or pleural effusion. Bibasilar atelectasis/scarring. No suspicious pulmonary nodule or mass. Abd:No acute findings. Exophytic cyst involving the spleen. Soft tissues/Bones: Soft tissues surrounding the chest wall demonstrate no acute findings. Osseous structures demonstrate degenerative change. CT/CT chest w con IMPRESSION: No acute findings. No evidence of mediastinal mass. Impression dictated by: Bert Viveros Jr., DOrlinOOrlin03/16/2024 2:09 PM Dictation Location: [place] [address] Transcribed By: [facility] 03/16/24 1409 Dictated By: Bert Viveros Jr, DO 03/16/24 1403 Signed By: 03/16/24 140 Normal [facility] Creatinineon 03-16-2024 GFR/1.73 sq M.predicted MDRD (S/P/Bld) [Vol rate/Area] mL/min/{1.73_m2} Normal [facility] Comment on above: Result Comment: PERF ORMED BY: [place] [address] PATHOLOGIST ROUTE DELIVERY SERVICE DRIVER SPEEDY GRAY M.D. Performed By: #### C REAT #### [facility] [address] [place] [address] Creatinine [Mass/volume] in Serum or PlasmaOrdered By: Lorelei Hurtado on 03-16-2024 Creatinine [Mass/Vol] 0.83 mg/dL Normal 0.60-1.20 [facility] Comment on above: Performed By: #### C REAT #### [facility] [address] [place] [address] No Panel InformationOrdered By: Lorelei Hurtado on 03-16-2024 Estimated GFR (CKD-EPI) > 60.0 mL/Min [facility] Creatinine Clearance (Chem N/A [facility] NM gastric emptying studyon 07-25-2023 NM gastric emptying study [facility] Main [place] [address] [place] [address] Nuclear Medicine Report Signed Patient: Tangela Trinidad MR#: [id number] : 1940 Acct:[id number] Age/Sex: 83 / F ADM Date: 07/25/23 Loc: [place] Room: Type: [facility] Attending Dr: Jeyson Diaz MD [...] Matt Feldman M.D.07/25/2023 9:40 AM Dictation Location: [place] [address] Transcribed By: [facility] 07/25/23 0940 Dictated By: Matt Feldman DO 07/25/23 0934 Signed By: 07/25/23 0940 Normal [facility] MG MAMM SCREEN 3D ROXANA CADon 10-20-2022 MG MAMM SCREEN 3D ROXANA CAD Patient: TANGELA TRINIDAD. Exam Date: 10/20/2022 : 1940 Gender:F Ordering : DR KVNG MELGAR D.O. Admission #: [id number] Family : Order #: [id number] CLICK HERE TO VIEW EXAM RADIOLOGY REPORT [...] melonoma cancer at age 64. LOCATION: [facility] BREAST COMPOSITION: Scattered areas fibroglandular density. [...] Guidry M.D. on 10/20/2022 at 13:19 Normal [facility] CBC W Auto Differential pane l (Bld)on 07-27-2022 Basophils (Bld) [#/Vol] 0.08 10*3/uL Normal <0.11 [facility] Comment on above: Order Comment: Speci men Type: BLOOD SPECIMEN Ordering Facility: [facility] Address: [address] [place] [address] Performed By: #### 1 [id number], [id number] #### [facility] CLIA [id number] [address] [place] [address] Basophils/100 WBC (Bld) 0.9 % Normal [facility] Comment on above: Order Comment: Speci men Type: BLOOD SPECIMEN Ordering Facility: [facility] Address: [address] [place] [address] Performed By: #### 1 [id number], 05229-7 #### [facility] CLIA [id number] [address] [place] [id number] Differential cell count method Nom (Bld) Auto Normal [facility] Comment on above: Order Comment: Speci men Type: BLOOD SPECIMEN Ordering Facility: [facility] Address: [address] [place] [address] Performed By: #### 1 [id number], 53133-7 #### [facility] CLIA [id number] [address] [place] [id number] Eosinophils (Bld) [#/Vol] 0.52 10*3/uL High <0.46 [facility] Comment on above: Order Comment: Speci men Type: BLOOD SPECIMEN Ordering Facility: [facility] Address: [address] [place] [address] Performed By: #### 1 [id number], [id number] #### [facility] CLIA [id number] [address] [place] [address] 28569 Eosinophils/100 WBC (Bld) 5.8 % Normal [facility] Comment on above: Order Comment: Speci men Type: BLOOD SPECIMEN Ordering Facility: [facility] Address: [address] [address] Performed By: #### 1 4196-0, 53383-9 #### [facility] CLIA [id number] [address] [place] [address] 81438 Erythrocyte distribution width (RBC) [Ratio] 18.0 % High 11.5-15.0 [facility] Comment on above: Order Comment: Speci men Type: BLOOD SPECIMEN Ordering Facility: [facility] Address: [address] [address] Performed By: #### 1 4196-0, 79005-4 #### [facility] CLIA [id number] [address] [place] [address] 09539 Hematocrit (Bld) [Volume fraction] 39.6 % Normal 36.0-46.0 [facility] Comment on above: Order Comment: Speci men Type: BLOOD SPECIMEN Ordering Facility: [facility] Address: [address] [address] Performed By: #### 1 4196-0, 36385-5 #### [facility] CLIA [id number] [address] [place] [address] 15835 Hemoglobin (Bld) [Mass/Vol] 13.0 g/dL Normal 11.5-15.5 [facility] Comment on above: Order Comment: Speci men Type: BLOOD SPECIMEN Ordering Facility: [facility] Address: [address] [address] Performed By: #### 1 4196-0, 94138-8 #### [facility] CLIA [id number] [address] [place] [address] Immature granulocytes (Bld) [#/Vol] 0.04 10*3/uL Normal <0.10 [facility] Comment on above: Order Comment: Speci men Type: BLOOD SPECIMEN Ordering Facility: [facility] Address: [address] [place] [address] Performed By: #### 1 4196-0, 94522-5 #### [facility] CLIA [id number] [address] [place] [address] 91129 Immature granulocytes/100 WBC (Bld) 0.4 % Normal [facility] Comment on above: Order Comment: Speci men Type: BLOOD SPECIMEN Ordering Facility: [facility] Address: [address] [place] [address] Performed By: #### 1 4196-0, 35947-1 #### [facility] CLIA [id number] [address] [place] [address] 84681 Lymphocytes (Bld) [#/Vol] 3.25 10*3/uL Normal 1.00-4.00 [facility] Comment on above: Order Comment: Speci men Type: BLOOD SPECIMEN Ordering Facility: [facility] Address: [address] [place] [address] Performed By: #### 1 4196-0, 94196-0 #### [facility] CLIA [id number] [address] [place] [address] 77383 Lymphocytes/100 WBC (Bld) 36.3 % Normal [facility] Comment on above: Order Comment: Speci men Type: BLOOD SPECIMEN Ordering Facility: [facility] Address: [address] [place] [address] Performed By: #### 1 4196-0, 58361-4 #### [facility] CLIA [id number] [address] [place] [address] 39580 MCH (RBC) [Entitic mass] 28.3 pg Normal 26.0-34.0 [facility] Comment on above: Order Comment: Speci men Type: BLOOD SPECIMEN Ordering Facility: [facility] Address: [address] [address] Performed By: #### 1 4196-0, 65314-7 #### [facility] CLIA [id number] [address] [place] [address] 58661 MCHC (RBC) [Mass/Vol] 32.8 g/dL Normal 30.5-36.0 [facility] Comment on above: Order Comment: Speci men Type: BLOOD SPECIMEN Ordering Facility: [facility] Address: [address] [address] Performed By: #### 1 4196-0, 90885-0 #### [facility] CLIA [id number] [address] [place] [address] 32590 MCV (RBC) [Entitic vol] 86.1 fL Normal 80.0-100.0 [facility] Comment on above: Order Comment: Speci men Type: BLOOD SPECIMEN Ordering Facility: [facility] Address: [address] [address] Performed By: #### 1 4196-0, 33856-4 #### [facility] CLIA [id number] [address] [place] [address] 63642 Monocytes (Bld) [#/Vol] 1.25 10*3/uL High <0.87 [facility] Comment on above: Order Comment: Speci men Type: BLOOD SPECIMEN Ordering Facility: [facility] Address: [address] [address] Performed By: #### 1 4196-0, 66787-8 #### [facility] CLIA [id number] [address] [place] [address] 98313 Monocytes/100 WBC (Bld) 14.0 % Normal [facility] Comment on above: Order Comment: Speci men Type: BLOOD SPECIMEN Ordering Facility: [facility] Address: [address] [address] Performed By: #### 1 4196-0, 98004-0 #### [facility] CLIA [id number] [address] [place] [address] 85524 Neutrophils (Bld) [#/Vol] 3.81 10*3/uL Normal 1.45-7.50 [facility] Comment on above: Order Comment: Speci men Type: BLOOD SPECIMEN Ordering Facility: [facility] Address: [address] [place] [address] Performed By: #### 1 4196-0, 58512-3 #### [facility] CLIA [id number] [address] [place] [address] 68115 Neutrophils/100 WBC (Bld) 42.6 % Normal [facility] Comment on above: Order Comment: Speci men Type: BLOOD SPECIMEN Ordering Facility: [facility] Address: [address] [place] [address] Performed By: #### 1 4196-0, 60896-1 #### [facility] CLIA [id number] [address] [place] [address] 06269 Nucleated RBC (Bld) [#/Vol] 10*3/uL Normal <0.01 [facility] Comment on above: Order Comment: Speci men Type: BLOOD SPECIMEN Ordering Facility: [facility] Address: [address] [place] [address] Performed By: #### 1 4196-0, 37741-5 #### [facility] CLIA [id number] [address] [place] [address] 12888 Nucleated RBC/100 WBC (Bld) [Ratio] 0.0 /100 WBC Normal [facility] Comment on above: Order Comment: Speci men Type: BLOOD SPECIMEN Ordering Facility: [facility] Address: [address] [place] [address] Performed By: #### 1 4196-0, 87465-1 #### [facility] CLIA [id number] [address] [place] [address] 54153 Platelet mean volume (Bld) [Entitic vol] 9.5 fL Normal 9.0-12.7 [facility] Comment on above: Order Comment: Speci men Type: BLOOD SPECIMEN Ordering Facility: [facility] Address: [address] [place] [address] Performed By: #### 1 4196-0, 74178-0 #### [facility] CLIA [id number] [address] [place] [address] 26924 Platelets (Bld) [#/Vol] 379 10*3/uL Normal 150-400 [facility] Comment on above: Order Comment: Speci men Type: BLOOD SPECIMEN Ordering Facility: [facility] Address: [address] [place] [address] Performed By: #### 1 4196-0, 33971-0 #### [facility] CLIA [id number] [address] [place] [address] 99862 RBC (Bld) [#/Vol] 4.60 10*6/uL Normal 3.90-5.20 [facility] Comment on above: Order Comment: Speci men Type: BLOOD SPECIMEN Ordering Facility: [facility] Address: [address] [place] [address] Performed By: #### 1 4196-0, 65552-6 #### [facility] CLIA [id number] [address] [place] [address] 43408 WBC (Bld) [#/Vol] 8.95 10*3/uL Normal 3.70-11.00 [facility] Comment on above: Order Comment: Speci men Type: BLOOD SPECIMEN Ordering Facility: [facility] Address: [address] [place] [address] Performed By: #### 1 4196-0, 38965-5 #### [facility] CLIA [id number] [address] [place] [address] 42648 CNOVSPon 07-27-2022 CNOVSP Visit (SP) Office ([place]) TANGELA TRINIDAD ([id number]) 1940 F Date Time Provider Department 07/27/22 2:45 PM MAVIS SANTIAGO During your visit today, we recorded the following information about you: Temperature Pulse Respiration Blood pressure 98.1 degrees 64/minute 16/minute 125/72 Weight Height 66.5 kg 1.524 m Mavis Santiago MD 07/27/2022 2:56 PM Signed PATIENT NAME: Tangela Trinidad CLINIC NO.: [id number] ATTENDING PHYSICIAN: Mavis Santiago MD DATE OF [...] Range Status (more content not included)... Normal [facility] Ferritin SerPl-mCncon 2022 Ferritin [Mass/Vol] 104.0 ng/mL Normal 14.7-205.1 [facility] Comment on above: Order Comment: Speci martínez Type: BLOOD SPECIMEN Ordering Facility[facility] Address: [address] [place] [address] Performed By: #### 5 0190-8, 2276-4 #### [facility] CLIA [id number] [address] [facility] [address] [place] Iron and Iron binding capaci ty panelon 07-27-2022 Iron [Mass/Vol] 43 ug/dL Normal 41-186 [facility] Comment on above: Order Comment: Speci men Type: BLOOD SPECIMEN Ordering Facility[facility] Address: [address] [place] [address] Performed By: #### 5 0190-8, 2276-4 #### [facility] CLIA [id number] [address] [place] [address] [place] Iron binding capacity [Mass/Vol] 265 ug/dL Normal 232-386 [facility] Comment on above: Order Comment: Speci men Type: BLOOD SPECIMEN Ordering Facility: [facility] Address: [address] [place], [place] [address] Performed By: #### 5 0190-8, 6-4 #### [facility] CLIA [id number] [address] [place] [address] [place] Iron/TIBC [Molar ratio] 16.2 % Normal 15.0-57.0 [facility] Comment on above: Order Comment: Speci men Type: BLOOD SPECIMEN Ordering Facility: [facility] Address: [address] [place], [place] [address] Performed By: #### 5 0190-8, 4 #### [facility] CLIA [id number] [address] [place] [address] [place] Retics #on 07-27-2022 Reticulocytes (Bld) [#/Vol] 0.65867 10*3/uL Normal 0.018-0.100 [facility] Comment on above: Order Comment: Speci men Type: BLOOD SPECIMEN Ordering Facility: [facility] Address: [address] [place] [address] Performed By: #### 1 4196-0, 85371-3 #### [facility] CLIA [id number] [address] [place] [address] 65638 Reticulocytes (Bld) [#/Vol]o n 07-27-2022 Reticulocytes/100 RBC (Bld) 0.9 % Normal 0.4-2.0 [facility] Comment on above: Order Comment: Speci men Type: BLOOD SPECIMEN Ordering Facility[facility] Address: [address] [place], [place] [address] Performed By: #### 1 4196-0, 35264-1 #### [facility] CLIA [id number] [address] [place] [address] COVID-19 SOFIAOrdered By: Brandy Diaz on 07-22-2022 SARS-CoV+SARS-CoV-2 (COVID-19) Ag IA.rapid Ql (Resp) Negative Negative [facility] Comment on above: This is a duplicate Heidi SARS Antigen (DB) result to be used for statistical tracking purpose only. No Panel InformationOrdered By: Jeyson Diaz on 07-22-2022 SARS Antigen (LFIA) [facility] CNSWon 06-02-2022 CNSW Social Work ([place]) TANGELA TRINIDAD ([id number]) 1940 F Date Time Provider Department 06/02/22 [...] - Hives POVIDONE-IODINE 06/21/2019 16 - Unknown BFCLYAQ-[id number]-VJZ REDUCTASE INHIBIT*01/05/2018 16 - Unknown SULFA (SULFONAMIDE [...] 112 mcg tablet 0.125 mcg. - CA/D3/MAG OX/ZINC/ROTARY LITHOGRAPHIC PRESS OPERATOR/MEREDITH/BOR (CALCIUM 600+D3 PLUS ORAL) Take 1,200 mg by mouth once daily. - atenolol (TENORMIN) 25 mg tablet Take 1 tablet by mouth once daily. Problem List As Of Date 06/02/2022 Noted Resolved Anemia [D64.9] 11/15/2014 Iron deficiency [E61.1] 11/15/2014 Encounter Status:Closed by MARCIA RAMIRES on 06/02/22 [facility] Shannan 05-25-2022 [facility] Telephone ([place]) TANGELA TRINIDAD ([id number]) 1940 F Date Time Provider Department 05/25/22 [employer]ATOR DAMON BREWER During your visit today, we recorded the following information about you: Mohit Lo [facility] 05/25/2022 3:35 PM Signed 1st report of treatment-non oncology regimen (Monoferric) Patient holds Medicare coverage. No FA available at this time. Allergies As of Date: 05/25/2022 Noted Allergy Reaction CEPHALOSPORINS 10/23/2014 16 - Unknown MACRODANTIN (NITROFURANTOIN MACRO*10/11/2018 2 - Rash 9 - Itching PENICILLINS 11/15/2014 4 - Hives POVIDONE-IODINE 06/21/2019 16 - Unknown VQCXSPE-EQI-STA REDUCTASE INHIBIT*01/05/2018 16 - Unknown SULFA (SULFONAMIDE [...] 112 mcg tablet 0.125 mcg. - CA/D3/MAG OX/ZINC/ROTARY LITHOGRAPHIC PRESS OPERATOR/MEREDITH/BOR (CALCIUM 600+D3 PLUS ORAL) Take 1,200 mg [...] Encounter Status:Closed by MOHIT SANTOS on 05/25/22 [facility] CNOVSPon 05-18-2022 CNOVSP Visit (SP) Office ([place]) TANGELA TRINIDAD ([id number]) 1940 F Date Time Provider Department 05/18/22 4:00 PM MAVIS SANTIAGO During your visit today, we recorded the following information about you: Temperature Pulse Respiration Blood pressure 98.1 degrees 78/minute 16/minute 122/78 Weight 68 kg Mavis Santiago MD 05/18/2022 4:08 PM Signed PATIENT NAME: Tangela Trinidad CLINIC NO.: [id number] ATTENDING PHYSICIAN: Mavis Santiago MD DATE OF [...] Range Status (more content not included)... Normal [facility] IMMUNOFIXATION(ELISE),PROTEIN ELEC(PE),[place] 05-06-2022 Albumin [Mass/Vol] 2.9 g/dL Normal 2.9-4.4 [facility] Comment on above: Performed By: #### I FEPEFL #### [facility] [address] [address] [address] Yayo Gregg Albumin/Globulin [Mass ratio] 1.2 {ratio} Normal 0.7-1.7 [facility] Comment on above: Performed By: #### I FEPEFL #### [facility] [address] [address] [address] Yayo Gregg Qgncn-1-Fdaqmhxo 0.3 g/dL Normal 0.0-0.4 [facility] Comment on above: Performed By: #### I FEPEFL #### [facility] [address] [place] [address] Dr. Yayo Gregg Ivrep-1-Xmajizxs 0.7 g/dL Normal 0.4-1.0 [facility] Comment on above: Performed By: #### I FEPEFL #### [facility] [address] [place] [address] Dr. Yayo Gregg Beta Globulin 0.9 g/dL Normal 0.7-1.3 [facility] Comment on above: Performed By: #### I FEPEFL #### [facility] [address] [place] [address] Dr. Yayo Gregg Free [place] Lt Chains,S 39.9 mg/L Critically high 3.3-19.4 [facility] Comment on above: Performed By: #### I FEPEFL #### [facility] [address] [place] [address] Dr. Yayo Gregg Free Lambda Lt Chains,S 22.7 mg/L Normal 5.7-26.3 [facility] Comment on above: Performed By: #### I FEPEFL #### [facility] [address] [place] [address] Dr. Yayo Gregg Gamma Globulin 0.6 g/dL Normal 0.4-1.8 [facility] Comment on above: Performed By: #### I FEPEFL #### [facility] [address] [place] [address] Dr. Yayo Gregg Globulin (S) [Mass/Vol] 2.6 g/dL Normal 2.2-3.9 [facility] Comment on above: Performed By: #### I FEPEFL #### [facility] [address] [place] [address] Dr. Yayo Gregg Immunofixation Result, Serum Comment Normal [facility] Comment on above: Result Comment: No m onoclonality detected. Performed By: #### I FEPEFL #### [facility] [address] [place] [address] Dr. Yayo Gregg Immunoglobulin A, Qn, Serum 81 mg/dL Normal 64-422 [facility] Comment on above: Performed By: #### I FEPEFL #### [facility] [address] [address] [address] Yayo Gregg Immunoglobulin G, Qn, Serum 547 mg/dL Critically low 586-1602 [facility] Comment on above: Performed By: #### I FEPEFL #### [facility] [address] [address] [address] Yayo Gregg Immunoglobulin M, Qn, Serum 92 mg/dL Normal 26-217 [facility] Comment on above: Performed By: #### I FEPEFL #### [facility] [address] [address] [address] Yayo Gregg [place]/Lambda Ratio, S 1.76 Critically high 0.26-1.65 [facility] Comment on above: Performed By: #### I FEPEFL #### [facility] [address] [address] [address] Yayo Gregg M-Johan Not Observed Normal Not Observed [facility] Comment on above: Performed By: #### I FEPEFL #### [facility] [address] [address] [address] Yayo Gregg PDF . Normal [facility] Comment on above: Performed By: #### I FEPEFL #### [facility] [address] [place] [address] Dr. Yayo Gregg Please note: Comment Normal [facility] Comment on above: Result Comment: Prot ein electrophoresis scan will follow via computer, mail, or sound technician delivery. Performed By: #### I FEPEFL #### [facility] [address] [address] [address] Yayo Gregg Protein [Mass/Vol] 5.5 g/dL Critically low 6.0-8.5 [facility] Comment on above: Performed By: #### I FEPEFL #### [facility] [address] [place] [address] Dr. Yayo Gregg IMMUNOGLOBULINS IGA/IGM/IGG QUANTITATIVEon 05-05-2022 Immunoglobulin A, Qn, Serum 83 mg/dL Normal 64-422 [facility] Comment on above: Performed By: #### I MMUNGL #### [facility] [address] [place] [address] Dr. Yayo Gregg Immunoglobulin G, Qn, Serum 559 mg/dL Critically low 586-1602 [facility] Comment on above: Performed By: #### I MMUNGL #### [facility] [address] [place] [address] Dr. Yayo Gregg Immunoglobulin M, Qn, Serum 93 mg/dL Normal 26-217 [facility] Comment on above: Performed By: #### I MMUNGL #### [facility] [address] [place] [address] Dr. Yayo Gregg CBC AUTO DIFFon 05-04-2022 BASO # 0.1 103/ul Normal 0.0-0.1 [facility] Comment on above: Performed By: #### I MMUNGL #### [facility] [address] [place] [address] Dr. Yayo Gregg Basophils/100 WBC (Bld) 0.9 % Normal 0.2-2.0 [facility] Comment on above: Performed By: #### I MMUNGL #### [facility] [address] [place] [address] Dr. Yayo Gregg EO # 0.7 103/ul Normal 0.0-0.7 [facility] Comment on above: Performed By: #### I MMUNGL #### [facility] [address] [place] [address] Dr. Yayo Gregg Eosinophils/100 WBC (Bld) 6.7 % Normal 0.9-7.0 [facility] Comment on above: Performed By: #### I MMUNGL #### [facility] [address] [place] [address] Dr. Yayo Gregg Erythrocyte distribution width (RBC) [Ratio] 15.6 % Critically high 11.0-15.0 [facility] Comment on above: Performed By: #### I MMUNGL #### [facility] [address] [address] [address] Yayo Gregg Hematocrit (Bld) [Volume fraction] 31.3 % Critically low 36.0-48.0 [facility] Comment on above: Performed By: #### I MMUNGL #### [facility] [address] [place] [address] Dr. Yayo Gregg Hemoglobin (Bld) [Mass/Vol] 10.0 g/dL Critically low 12.0-16.0 [facility] Comment on above: Performed By: #### I MMUNGL #### [facility] [address] [place] [address] Dr. Yayo Gregg IG # 0.04 10e3/ul Critically high 0.00-0.03 [facility] Comment on above: Performed By: #### I MMUNGL #### [facility] [address] [place] [address] Dr. Yayo Gregg IG % 0.4 % Normal 0.0-0.5 [facility] Comment on above: Performed By: #### I MMUNGL #### [facility] [address] [place] [address] Dr. Yayo Gregg LYMPH # 2.9 103/ul Normal 1.2-3.8 [facility] Comment on above: Performed By: #### I MMUNGL #### [facility] [address] [place] [address] Dr. Yayo Gregg Lymphocytes/100 WBC (Bld) 29.6 % Normal 20.5-60.0 [facility] Comment on above: Performed By: #### I MMUNGL #### [facility] [address] [place] [address] Dr. Yayo Gregg MANUAL DIFF REQ NO Normal [facility] Comment on above: Performed By: #### I MMUNGL #### [facility] [address] [place] [address] Dr. Yayo Gregg MCH (RBC) [Entitic mass] 25.7 pg Critically low 26.7-34.0 [facility] Comment on above: Performed By: #### I MMUNGL #### [facility] [address] [place] [address] Dr. Yayo Gregg MCHC (RBC) [Mass/Vol] 31.9 g/dL Normal 29.9-35.2 [facility] Comment on above: Performed By: #### I MMUNGL #### [facility] [address] [place] [address] Dr. Yayo Gregg MCV (RBC) [Entitic vol] 80.5 fL Critically low 81.0-99.0 [facility] Comment on above: Performed By: #### I MMUNGL #### [facility] [address] [place] [address] Dr. Yayo Gregg MONO # 1.4 103/ul Critically high 0.3-0.8 [facility] Comment on above: Performed By: #### I MMUNGL #### [facility] [address] [place] [address] Dr. Yayo Gregg Monocytes/100 WBC (Bld) 14.5 % Critically high 1.7-12.0 [facility] Comment on above: Performed By: #### I MMUNGL #### [facility] [address] [place] [address] Dr. Yayo Gregg NEUT # 4.7 103/ul Normal 1.4-6.5 [facility] Comment on above: Performed By: #### I MMUNGL #### [facility] [address] [place] [address] Dr. Yayo Gregg Neutrophils/100 WBC (Bld) 47.9 % Normal 43.0-75.0 [facility] Comment on above: Performed By: #### I MMUNGL #### [facility] [address] [place] [address] Dr. Yayo Gregg Platelet mean volume (Bld) [Entitic vol] 9.5 fL Normal 9.5-13.5 [facility] Comment on above: Performed By: #### I MMUNGL #### [facility] [address] [place] [address] Dr. Yayo Gregg PLT 457 103/ul Critically high 150-450 [facility] Comment on above: Performed By: #### I MMUNGL #### [facility] [address] [place] [address] Dr. Yayo Gregg RBC 3.89 106/ul Critically low 4.20-5.40 [facility] Comment on above: Performed By: #### I MMUNGL #### [facility] [address] [place] [address] Dr. Yayo Gregg WBC 9.8 103/ul Normal 4.0-11.0 [facility] Comment on above: Performed By: #### I MMUNGL #### [facility] [address] [place] [address] Dr. Yayo Gregg FERRITINon 05-04-2022 Ferritin [Mass/Vol] 20.0 ng/mL Normal 8.0-252.0 [facility] Comment on above: Performed By: #### F ERR, FETIBC #### [facility] [address] [place] [address] Dr. Yayo Gregg IRON AND TIBCon 05-04-2022 % SATURATION 5.7 % Normal [facility] Comment on above: Performed By: #### F ERR, FETIBC #### [facility] [address] [place] [address] Dr. Yayo Gregg Iron [Mass/Vol] 18.0 ug/dL Critically low 50.0-170.0 [facility] Comment on above: Performed By: #### F ERR, FETIBC #### [facility] [address] [place] [address] Dr. Yayo Gregg TIBC DIRECT 318.0 ug/dL Normal 250.0-450.0 [facility] Comment on above: Performed By: #### F ERR, FETIBC #### [facility] [address] [place] [address] Dr. Yayo Gregg PROF CHEM 8 (BAS METB)on Anion gap [Moles/Vol] 11.7 mmol/L Normal [facility] Comment on above: Performed By: #### I MMUNGL #### [facility] [address] [place] [address] Dr. Yayo Gregg Calcium [Mass/Vol] 8.1 mg/dL Critically low 8.5-10.1 Th [facility] Comment on above: Performed By: #### I MMUNGL #### [facility] [address] [address] [address] Yayo Gregg Chloride [Moles/Vol] 100 mmol/L Normal 98-107 [facility] Comment on above: Performed By: #### I MMUNGL #### [facility] [address] [address] [address] Yayo Gregg CO2 [Moles/Vol] 25.7 mmol/L Normal 21.0-32.0 [facility] Comment on above: Performed By: #### I MMUNGL #### [facility] [address] [place] [address] Dr. Yayo Gregg Creatinine [Mass/Vol] 1.06 mg/dL Critically high 0.55-1.02 [facility] Comment on above: Performed By: #### I MMUNGL #### [facility] [address] [place] [address] Dr. Yayo Gregg EGFR-AF SINGAPOREAN =60 Normal >=60 [facility] Comment on above: Performed By: #### I MMUNGL #### [facility] [address] [place] [address] Dr. Yayo Gregg EGFR-NON AF SINGAPOREAN 49 mL/min/1.73m2 Critically low >=60 [facility] Comment on above: Performed By: #### I MMUNGL #### [facility] [address] [place] [address] Dr. Yayo Gregg Glucose [Mass/Vol] 121 mg/dL Critically high 74-106 [facility] Comment on above: Performed By: #### I MMUNGL #### [facility] [address] [address] [address] Yayo Gregg Potassium [Moles/Vol] 4.4 mmol/L Normal 3.5-5.1 [facility] Comment on above: Performed By: #### I MMUNGL #### [facility] [address] [place] [address] Dr. Yayo Gregg Sodium [Moles/Vol] 133 mmol/L Critically low 136-145 [facility] Comment on above: Performed By: #### I MMUNGL #### [facility] [address] [place] [address] Dr. Yayo Gregg Urea nitrogen [Mass/Vol] 16.0 mg/dL Normal 7.0-18.0 [facility] Comment on above: Performed By: #### I MMUNGL #### [facility] [address] [place] [address] Dr. Yayo Gregg Urea nitrogen/Creatinine [Mass ratio] 15.1 mg/mg Normal [facility] Comment on above: Performed By: #### I MMUNGL #### [facility] [address] [place] [address] Dr. Yayo Gregg T PROTEIN SERUMon 05-04-2022 Protein [Mass/Vol] 6.0 g/dL Critically low 6.4-8.2 [facility] Comment on above: Performed By: #### I MMUNGL #### [facility] [address] [place] [address] Dr. Yayo Gregg TSHon 05-04-2022 TSH 1.715 uIU/mL Normal 0.358-3.740 [facility] Comment on above: Performed By: #### I MMUNGL #### [facility] [address] [place] [address] Dr. Yayo Gregg CBC AUTO DIFFon 03-26-2022 BASO # 0.1 103/ul Normal 0.0-0.1 [facility] Comment on above: Performed By: #### C BC #### [facility] [address] [place] [address] Dr. Yayo Gregg Basophils/100 WBC (Bld) 1.0 % Normal 0.2-2.0 [facility] Comment on above: Performed By: #### C BC #### [facility] [address] [place] [address] Dr. Yayo Gregg EO # 0.8 103/ul Critically high 0.0-0.7 [facility] Comment on above: Performed By: #### C BC #### [facility] [address] [address] [address] Yayo Gregg Eosinophils/100 WBC (Bld) 7.6 % Critically high 0.9-7.0 [facility] Comment on above: Performed By: #### C BC #### [facility] [address] [place] [address] Dr. Yayo Gregg Erythrocyte distribution width (RBC) [Ratio] 15.1 % Critically high 11.0-15.0 [facility] Comment on above: Performed By: #### C BC #### [facility] [address] [place] [address] Dr. Yayo Gregg Hematocrit (Bld) [Volume fraction] 32.0 % Critically low 36.0-48.0 [facility] Comment on above: Performed By: #### C BC #### [facility] [address] [place] [address] Dr. Yayo Gregg Hemoglobin (Bld) [Mass/Vol] 10.4 g/dL Critically low 12.0-16.0 [facility] Comment on above: Performed By: #### C BC #### [facility] [address] [place] [address] Dr. Yayo Gregg IG # 0.05 10e3/ul Critically high 0.00-0.03 [facility] Comment on above: Performed By: #### C BC #### [facility] [address] [place] [address] Dr. Yayo Gregg IG % 0.5 % Normal 0.0-0.5 [facility] Comment on above: Performed By: #### C BC #### [facility] [address] [place] [address] Dr. Yayo Gregg LYMPH # 2.9 103/ul Normal 1.2-3.8 [facility] Comment on above: Performed By: #### C BC #### [facility] [address] [place] [address] Dr. Yayo Gregg Lymphocytes/100 WBC (Bld) 27.7 % Normal 20.5-60.0 [facility] Comment on above: Performed By: #### C BC #### [facility] [address] [address] [address] Yayo Gregg MANUAL DIFF REQ NO Normal [facility] Comment on above: Performed By: #### C BC #### [facility] [address] [place] [address] Dr. Yayo Gregg MCH (RBC) [Entitic mass] 26.5 pg Critically low 26.7-34.0 [facility] Comment on above: Performed By: #### C BC #### [facility] [address] [place] [address] Dr. Yayo Gregg MCHC (RBC) [Mass/Vol] 32.5 g/dL Normal 29.9-35.2 [facility] Comment on above: Performed By: #### C BC #### [facility] [address] [place] [address] Dr. Yayo Gregg MCV (RBC) [Entitic vol] 81.4 fL Normal 81.0-99.0 [facility] Comment on above: Performed By: #### C BC #### [facility] [address] [place] [address] Dr. Yayo Gregg MONO # 1.3 103/ul Critically high 0.3-0.8 [facility] Comment on above: Performed By: #### C BC #### [facility] [address] [place] [address] Dr. Yayo Gregg Monocytes/100 WBC (Bld) 12.5 % Critically high 1.7-12.0 [facility] Comment on above: Performed By: #### C BC #### [facility] [address] [place] [address] Dr. Yayo Gregg NEUT # 5.2 103/ul Normal 1.4-6.5 [facility] Comment on above: Performed By: #### C BC #### [facility] [address] [place] [address] Dr. Yayo Gregg Neutrophils/100 WBC (Bld) 50.7 % Normal 43.0-75.0 [facility] Comment on above: Performed By: #### C BC #### [facility] [address] [place] [address] Dr. Yayo Gregg Platelet mean volume (Bld) [Entitic vol] 9.6 fL Normal 9.5-13.5 [facility] Comment on above: Performed By: #### C BC #### [facility] [address] [place] [address] Dr. Yayo Gregg PLT 409 103/ul Normal 150-450 [facility] Comment on above: Performed By: #### C BC #### [facility] [address] [place] [address] Dr. Yayo Gregg RBC 3.93 106/ul Critically low 4.20-5.40 [facility] Comment on above: Performed By: #### C BC #### [facility] [address] [place] [address] Dr. Yayo Gregg WBC 10.3 103/ul Normal 4.0-11.0 [facility] Comment on above: Performed By: #### C BC #### [facility] [address] [place] [address] Dr. Yayo Gregg FERRITINon 03-26-2022 Ferritin [Mass/Vol] 22.0 ng/mL Normal 8.0-252.0 [facility] Comment on above: Performed By: #### I MMUNGL #### [facility] [address] [place] [address] Dr. Yayo Gregg CBC AUTO DIFFon 02-09-2022 BASO # 0.1 103/ul Normal 0.0-0.1 [facility] Comment on above: Performed By: #### C BC #### [facility] [address] [place] [address] Dr. Yayo Gregg Basophils/100 WBC (Bld) 0.7 % Normal 0.2-2.0 [facility] Comment on above: Performed By: #### C BC #### [facility] [address] [place] [address] Dr. Yayo Gregg EO # 0.9 103/ul Critically high 0.0-0.7 [facility] Comment on above: Performed By: #### C BC #### [facility] [address] [place] [address] Dr. Yayo Gregg Eosinophils/100 WBC (Bld) 7.5 % Critically high 0.9-7.0 [facility] Comment on above: Performed By: #### C BC #### [facility] [address] [place] [address] Dr. Yayo Gregg Erythrocyte distribution width (RBC) [Ratio] 15.1 % Critically high 11.0-15.0 [facility] Comment on above: Performed By: #### C BC #### [facility] [address] [place] [address] Dr. Yayo Gregg Hematocrit (Bld) [Volume fraction] 32.5 % Critically low 36.0-48.0 [facility] Comment on above: Performed By: #### C BC #### [facility] [address] [place] [address] Dr. Yayo Gregg Hemoglobin (Bld) [Mass/Vol] 10.9 g/dL Critically low 12.0-16.0 [facility] Comment on above: Performed By: #### C BC #### [facility] [address] [place] [address] Dr. Yayo Gregg IG # 0.16 10e3/ul Critically high 0.00-0.03 [facility] Comment on above: Performed By: #### C BC #### [facility] [address] [place] [address] Dr. Yayo Gregg IG % 1.3 % Critically high 0.0-0.5 [facility] Comment on above: Performed By: #### C BC #### [facility] [address] [place] [address] Dr. Yayo Gregg LYMPH # 2.9 103/ul Normal 1.2-3.8 [facility] Comment on above: Performed By: #### C BC #### [facility] [address] [place] [address] Dr. Yayo Gregg Lymphocytes/100 WBC (Bld) 24.0 % Normal 20.5-60.0 [facility] Comment on above: Performed By: #### C BC #### [facility] [address] [place] [address] Dr. Yayo Gregg MANUAL DIFF REQ NO Normal [facility] Comment on above: Performed By: #### C BC #### [facility] [address] [place] [address] Dr. Yayo Gregg MCH (RBC) [Entitic mass] 27.2 pg Normal 26.7-34.0 [facility] Comment on above: Performed By: #### C BC #### [facility] [address] [place] [address] Dr. Yayo Gregg MCHC (RBC) [Mass/Vol] 33.5 g/dL Normal 29.9-35.2 [facility] Comment on above: Performed By: #### C BC #### [facility] [address] [place] [address] Dr. Yayo Gregg MCV (RBC) [Entitic vol] 81.0 fL Normal 81.0-99.0 [facility] Comment on above: Performed By: #### C BC #### [facility] [address] [place] [address] Dr. Yayo Gregg MONO # 1.6 103/ul Critically high 0.3-0.8 [facility] Comment on above: Performed By: #### C BC #### [facility] [address] [place] [address] Dr. Yayo Gregg Monocytes/100 WBC (Bld) 13.4 % Critically high 1.7-12.0 [facility] Comment on above: Performed By: #### C BC #### [facility] [address] [place] [address] Dr. Yayo Gregg NEUT # 6.3 103/ul Normal 1.4-6.5 [facility] Comment on above: Performed By: #### C BC #### [facility] [address] [place] [address] Dr. Yayo Gregg Neutrophils/100 WBC (Bld) 53.1 % Normal 43.0-75.0 [facility] Comment on above: Performed By: #### C BC #### [facility] [address] [address] [address] Yayo Gregg Platelet mean volume (Bld) [Entitic vol] 9.4 fL Critically low 9.5-13.5 [facility] Comment on above: Performed By: #### C BC #### [facility] [address] [address] [address] Yayo Gregg PLT 426 103/ul Normal 150-450 [facility] Comment on above: Performed By: #### C BC #### [facility] [address] [place] [address] Dr. Yayo Gregg RBC 4.01 106/ul Critically low 4.20-5.40 [facility] Comment on above: Performed By: #### C BC #### [facility] [address] [place] [address] Dr. Yayo Gregg WBC 11.9 103/ul Critically high 4.0-11.0 [facility] Comment on above: Performed By: #### C BC #### [facility] [address] [place] [address] Dr. Yayo Gregg FERRITINon 02-09-2022 Ferritin [Mass/Vol] 36.0 ng/mL Normal 8.0-252.0 [facility] Comment on above: Performed By: #### V ITB12, FETIBC, FERR #### [facility] [address] [place] [address] Dr. Yayo Gregg IRON AND TIBCon 02-09-2022 % SATURATION 5.2 % Normal [facility] Comment on above: Performed By: #### V ITB12, FETIBC, FERR #### [facility] [address] [place] [address] Dr. Yayo Gregg Iron [Mass/Vol] 16.0 ug/dL Critically low 50.0-170.0 [facility] Comment on above: Performed By: #### V ITB12, FETIBC, FERR #### [facility] [address] [place] [address] Dr. Yayo Gregg TIBC DIRECT 305.0 ug/dL Normal 250.0-450.0 [facility] Comment on above: Performed By: #### V ITB12, FETIBC, FERR #### [facility] [address] [place] [address] Dr. Yayo Gregg VITAMIN B12on 02-09-2022 Cobalamin (Vitamin B12) [Mass/Vol] 819.0 pg/mL Normal 193.0-986.0 [facility] Comment on above: Performed By: #### V ITB12, FETIBC, FERR #### [facility] [address] [address] [address] Yayo Gregg BNPon 01-27-2022 Natriuretic peptide B (Bld) [Mass/Vol] 270.0 pg/mL Normal <=1,800.0 [facility] Comment on above: Performed By: #### I MMUNGL #### [facility] [address] [place] [address] Dr. Yayo Gregg CARDIAC TARAN ADMITon 022 CK [Catalytic activity/Vol] 143 U/L Normal 26-192 [facility] Comment on above: Performed By: #### I MMUNGL #### [facility] [address] [place] [address] Dr. Yayo Gregg CK.MB [Mass/Vol] 2.66 ng/mL Normal <=3.60 [facility] Comment on above: Performed By: #### I MMUNGL #### [facility] [address] [place] [address] Dr. Yayo Gregg HSTROP 4.0 pg/mL Normal 4.0-51.3 [facility] Comment on above: Result Comment: CUT- OFF POINTS HAVE BEEN ESTABLISHED BASED ON THE FOURTH UNIVERSAL DEFINITIONS OF MYOCARDIAL INFARCTION. THE UPPER REFERENCE LIMIT (URL) OF TROPONIN, DEFINED THE 99TH PERCENTILE OF cTnI DISTRIBUTION IN A REFERENCE POPULATION, HAS BEEN CONFIRMED THE DECISION THRESHOLD FOR VT DIAGNOSIS. Performed By: #### I MMUNGL #### [facility] [address] [place] [address] Dr. Yayo Gregg CARA 113 ng/mL Critically high 9-82 [facility] Comment on above: Performed By: #### I MMUNGL #### [facility] [address] [place] [address] Dr. Yayo Gregg CBC AUTO DIFFon 01-27-2022 BASO # 0.1 103/ul Normal 0.0-0.1 [facility] Comment on above: Performed By: #### C BC #### [facility] [address] [place] [address] Dr. Yayo Gregg Basophils/100 WBC (Bld) 0.7 % Normal 0.2-2.0 [facility] Comment on above: Performed By: #### C BC #### [facility] [address] [place] [address] Dr. Yayo Gregg EO # 1.1 103/ul Critically high 0.0-0.7 [facility] Comment on above: Performed By: #### C BC #### [facility] [address] [place] [address] Dr. Yayo Gregg Eosinophils/100 WBC (Bld) 7.3 % Critically high 0.9-7.0 [facility] Comment on above: Performed By: #### C BC #### [facility] [address] [place] [address] Dr. Yayo Gregg Erythrocyte distribution width (RBC) [Ratio] 13.8 % Normal 11.0-15.0 [facility] Comment on above: Performed By: #### C BC #### [facility] [address] [place] [address] Dr. Yayo Gregg Hematocrit (Bld) [Volume fraction] 34.4 % Critically low 36.0-48.0 [facility] Comment on above: Performed By: #### C BC #### [facility] [address] [place] [address] Dr. Yayo Gregg Hemoglobin (Bld) [Mass/Vol] 11.3 g/dL Critically low 12.0-16.0 [facility] Comment on above: Performed By: #### C BC #### [facility] [address] [place] [address] Dr. Yayo Gregg IG # 0.09 10e3/ul Critically high 0.00-0.03 [facility] Comment on above: Performed By: #### C BC #### [facility] [address] [place] [address] Dr. Yayo Gregg IG % 0.6 % Critically high 0.0-0.5 [facility] Comment on above: Performed By: #### C BC #### [facility] [address] [place] [address] Dr. Yayo Gregg LYMPH # 2.5 103/ul Normal 1.2-3.8 [facility] Comment on above: Performed By: #### C BC #### [facility] [address] [place] [address] Dr. Yayo Gregg Lymphocytes/100 WBC (Bld) 16.6 % Critically low 20.5-60.0 [facility] Comment on above: Performed By: #### C BC #### [facility] [address] [place] [address] Dr. Yayo Gregg MANUAL DIFF REQ NO Normal [facility] Comment on above: Performed By: #### C BC #### [facility] [address] [place] [address] Dr. Yayo Gregg MCH (RBC) [Entitic mass] 26.7 pg Normal 26.7-34.0 [facility] Comment on above: Performed By: #### C BC #### [facility] [address] [place] [address] Dr. Yayo Gregg MCHC (RBC) [Mass/Vol] 32.8 g/dL Normal 29.9-35.2 [facility] Comment on above: Performed By: #### C BC #### [facility] [address] [place] [address] Dr. Yayo Gregg MCV (RBC) [Entitic vol] 81.1 fL Normal 81.0-99.0 [facility] Comment on above: Performed By: #### C BC #### [facility] [address] [place] [address] Dr. Yaoy Gregg MONO # 2.1 103/ul Critically high 0.3-0.8 [facility] Comment on above: Performed By: #### C BC #### [facility] [address] [address] [address] Yayo Gregg Monocytes/100 WBC (Bld) 14.0 % Critically high 1.7-12.0 [facility] Comment on above: Performed By: #### C BC #### [facility] [address] [address] [address] Yayo Gregg NEUT # 9.1 103/ul Critically high 1.4-6.5 [facility] Comment on above: Performed By: #### C BC #### [facility] [address] [place] [address] Dr. Yayo Gregg Neutrophils/100 WBC (Bld) 60.8 % Normal 43.0-75.0 [facility] Comment on above: Performed By: #### C BC #### [facility] [address] [place] [address] Dr. Yayo Gregg Platelet mean volume (Bld) [Entitic vol] 10.2 fL Normal 9.5-13.5 [facility] Comment on above: Performed By: #### C BC #### [facility] [address] [place] [address] Dr. Yayo Gregg PLT 455 103/ul Critically high 150-450 [facility] Comment on above: Performed By: #### C BC #### [facility] [address] [place] [address] Dr. Yayo Gregg RBC 4.24 106/ul Normal 4.20-5.40 [facility] Comment on above: Performed By: #### C BC #### [facility] [address] [place] [address] Dr. Yayo Gregg WBC 14.9 103/ul Critically high 4.0-11.0 [facility] Comment on above: Performed By: #### C BC #### [facility] [address] [place] [address] Dr. Yayo Gregg [facility] SARS-CoV-2 (COVID-19) RNA CHANTALE+probe Ql (Unsp spec) Not detected Normal NOT DETECTED [facility] Comment on above: Result Comment: When [...] for this test is supported by the [place] of [employer] and Human Service's declaration that [...] used). Performed By: #### C BC #### [facility] [address] [place] [address] Dr. Yayo Gregg PROF 14(COMP METB)on 022 Albumin [Mass/Vol] 3.0 g/dL Critically low 3.4-5.0 [facility] Comment on above: Performed By: #### I MMUNGL #### [facility] [address] [place] [address] Dr. Yayo Gregg Albumin/Globulin [Mass ratio] 0.9 {ratio} Normal [facility] Comment on above: Performed By: #### I MMUNGL #### [facility] [address] [place] [address] Dr. Yayo Gregg ALP [Catalytic activity/Vol] 95 U/L Normal 46-116 [facility] Comment on above: Performed By: #### I MMUNGL #### [facility] [address] [place] [address] Dr. Yayo Gregg ALT [Catalytic activity/Vol] 28 U/L Normal 14-59 [facility] Comment on above: Performed By: #### I MMUNGL #### [facility] [address] [place], [place] [id number] Dr. Yayo Gregg Anion gap [Moles/Vol] 11.9 mmol/L Normal [facility] Comment on above: Performed By: #### I MMUNGL #### [facility] [address] [place] [address] Dr. Yayo Gregg AST [Catalytic activity/Vol] 24 U/L Normal 15-37 [facility] Comment on above: Performed By: #### I MMUNGL #### [facility] [address] [place] [address] Dr. Yayo Gregg Bilirubin [Mass/Vol] 0.3 mg/dL Normal 0.2-1.0 [facility] Comment on above: Performed By: #### I MMUNGL #### [facility] [address] [place] [address] Dr. Yayo Gregg Calcium [Mass/Vol] 8.8 mg/dL Normal 8.5-10.1 [facility] Comment on above: Performed By: #### I MMUNGL #### [facility] [address] [place] [address] Dr. Yayo Gregg Chloride [Moles/Vol] 98 mmol/L Normal 98-107 [facility] Comment on above: Performed By: #### I MMUNGL #### [facility] [address] [place] [address] Dr. Yayo Gregg CO2 [Moles/Vol] 24.6 mmol/L Normal 21.0-32.0 [facility] Comment on above: Performed By: #### I MMUNGL #### [facility] [address] [place] [address] Dr. Yayo Gregg Creatinine [Mass/Vol] 0.91 mg/dL Normal 0.55-1.02 [facility] Comment on above: Performed By: #### I MMUNGL #### [facility] [address] [place] [address] Dr. Yayo Gregg EGFR-AF SINGAPOREAN >60 Normal >=60 [facility] Comment on above: Performed By: #### I MMUNGL #### [facility] [address] [place] [address] Dr. Yayo Gregg EGFR-NON AF [place]AN 59 mL/min/1.73m2 Critically low >=60 [facility] Comment on above: Performed By: #### I MMUNGL #### [facility] [address] [address] [address] Yayo Gregg Globulin (S) [Mass/Vol] 3.3 g/dL Normal [facility] Comment on above: Performed By: #### I MMUNGL #### [facility] [address] [address] [address] Yayo Gregg Glucose [Mass/Vol] 95 mg/dL Normal 74-106 [facility] Comment on above: Performed By: #### I MMUNGL #### [facility] [address] [place] [address] Dr. Yayo Gregg Potassium [Moles/Vol] 4.5 mmol/L Normal 3.5-5.1 [facility] Comment on above: Performed By: #### I MMUNGL #### [facility] [address] [place] [address] Dr. Yayo Gregg Protein [Mass/Vol] 6.3 g/dL Critically low 6.4-8.2 [facility] Comment on above: Performed By: #### I MMUNGL #### [facility] [address] [place] [address] Dr. Yayo Gregg Sodium [Moles/Vol] 130 mmol/L Critically low 136-145 [facility] Comment on above: Performed By: #### I MMUNGL #### [facility] [address] [place] [address] Dr. Yayo Gregg Urea nitrogen [Mass/Vol] 12.0 mg/dL Normal 7.0-18.0 [facility] Comment on above: Performed By: #### I MMUNGL #### [facility] [address] [place] [address] Dr. Yayo Gregg Urea nitrogen/Creatinine [Mass ratio] 13.2 mg/mg Normal [facility] Comment on above: Performed By: #### I MMUNGL #### [facility] [address] [place] [address] Dr. Yayo Gregg PROTIMEon 01-27-2022 INR Coag (PPP) [Relative time] 0.96 {INR} Normal [facility] Comment on above: Performed By: #### I MMUNGL #### [facility] [address] [place] [address] Dr. Yayo Gregg INR GUIDELINES SEE BELOW Normal [facility] Comment on above: Result Comment: ASHLEY RED INR: 2.0 - 3.0 CONDITIONS NOT LISTED BELOW 2.5 - 3.5 FOR PROSTHETIC HEART VALVE REPLACEMENT 2.5 - 3.5 RECURRENT THROMBOSIS Performed By: #### I MMUNGL #### [facility] [address] [place] [address] Dr. Yayo Gregg PT Coag (PPP) [Time] 10.4 s Normal 9.0-11.6 [facility] Comment on above: Performed By: #### I MMUNGL #### [facility] [address] [place] [address] Dr. Yayo Gregg PTTon 01-27-2022 aPTT Coag (Bld) [Time] 31.6 s Normal 22.3-36.2 Th e [facility] Comment on above: Performed By: #### I MMUNGL #### [facility] [address] [place] [address] Dr. Yayo Gregg TROPONIN, HIGH SENSITIVITYon 01-27-2022 HSTROP 4.7 pg/mL Normal 4.0-51.3 [facility] Comment on above: Result Comment: CUT- OFF POINTS HAVE BEEN ESTABLISHED BASED ON THE FOURTH UNIVERSAL DEFINITIONS OF MYOCARDIAL INFARCTION. THE UPPER REFERENCE LIMIT (URL) OF TROPONIN, DEFINED THE 99TH PERCENTILE OF cTnI DISTRIBUTION IN A REFERENCE POPULATION, HAS BEEN CONFIRMED THE DECISION THRESHOLD FOR VT DIAGNOSIS. Performed By: #### H STROPN #### [facility] [address] [place] [address] Dr. Yayo Gregg XR CHEST 1 Von [...] by: ANTHONY GUIDRY Date: 2022-01-27 11:47 Normal [facility] XR LSPINE 2_3 VIEWSon 2021 XR LSPINE [...] by: BENJAMIN GUNN Date: 2021-12-18 14:19 Normal [facility] BASIC METABOLIC PANEL(BMP)on 01-06-2018 Anion gap 12 mmol/L Normal 9-18 [facility] Comment on above: Performed By: #### C SHARITA, ZCBCGR ####MAIN LABCLIA:[id number] [facility] [address] BUN (urea nitrogen) 17 mg/dL Normal 8-23 [facility] Comment on above: Performed By: #### C SHARITA, ZCBCGR ####MAIN LABCLIA:[id number] [facility] [address] BUN/Creatinine Ratio 22.1 mg/mg Normal [facility] Comment on above: Performed By: #### C SHARITA, ZCBCGR ####MAIN LABCLIA:[id number] [facility] [place] [address] Calcium 7.9 mg/dL Low 8.8-10.2 [facility] Comment on above: Performed By: #### C SHARITA, ZCBCGR ####MAIN LABCLIA:[id number] [facility] [place] [address] Chloride 101 mmol/L Normal 98-107 [facility] Comment on above: Performed By: #### C SHARITA ZCBCGR ####MAIN LABCLIA:[id number] [facility] [place] [address] CO2 24 mmol/L Normal 22-29 [facility] Comment on above: Performed By: #### C SHARITA ZCBCGR ####MAIN LABCLIA:[id number] [place] [address] Creatinine 0.77 mg/dL Normal 0.50-0.90 [facility] Comment on above: Performed By: #### C SHARITA ZCBCGR ####MAIN LABCLIA:[id number] [place] [address] eGFR (MDRD) 77 /1.73 m2 Normal >60 mL/min [facility] Comment on above: Result Comment: Norm al RangeStage Description:1 Normal or Increased GFR >=902 Mild Decrease in GFR 60-903 Moderately Decreased GFR 30-594 Severely Decreased GFR 15-295 Kidney Failure <15 Performed By: #### C SHARITA ZCBCGR ####MAIN LABCLIA:[id number] [place] [address] Glucose mass conc 89 mg/dL Normal 74-109 [facility] Comment on above: Performed By: #### C Yaquelin SHERIFFCBCGR ####MAIN LABCLIA:[id number] [place] [address] Potassium molar conc 4.4 mmol/L Normal 3.5-5.1 [facility] Comment on above: Performed By: #### C SHARITA ZCBCGR ####MAIN LABCLIA:[id number] [place] [address] Sodium 133 mmol/L Low 136-145 [facility] Comment on above: Performed By: #### C Yaquelin SHERIFFCBCGR ####MAIN LABCLIA:[id number] [facility] [place] [address] CBC/DIFF GROUPon 01-06-2018 Anisocytosis presence 1+ Normal [facility] Comment on above: Performed By: #### C BC, ZCBCGR ####MAIN LABCLIA:[id number] [facility] [place] [address] HYPOCHROMASIA 1+ Normal [facility] Comment on above: Performed By: #### C SHARITA, ZCBCGR ####MAIN LABCLIA:[id number] [facility] [place] [address] NORMOCHROMIC NO Normal [facility] Comment on above: Performed By: #### C SHARITA, ZCBCGR ####MAIN LABCLIA:[id number] [facility] [place] [address] NORMOCYTIC NO [facility] Comment on above: Performed By: #### C SHARITA, ZCBCGR ####MAIN LABCLIA:[id number] [place] [address] Platelets NORMAL [facility] Comment on above: Performed By: #### C SHARITA ZCBCGR ####MAIN LABCLIA:[id number] [place] [address] BAND NEUTROPHILS #(MANUAL) 152 /cmm Normal <648 [facility] Comment on above: Performed By: #### C SHARITA ZCBCGR ####MAIN LABCLIA:[id number] [place] [address] Eosinophils 456 /cmm High <432 [facility] Comment on above: Performed By: #### C SHARITA, ZCBCGR ####MAIN LABCLIA:[id number] [place] [address] Eosinophils/100 leukocytes 6 % High <4 [facility] Comment on above: Performed By: #### C SHARITA ZCBCGR ####MAIN LABCLIA:[id number] [place] [address] Lymphocytes 1748 /cmm Normal 960-4752 [facility] Comment on above: Performed By: #### C SHARITA, ZCBCGR ####MAIN LABCLIA:[id number] [place] [address] Lymphocytes/100 leukocytes 23 % Normal 20-44 [facility] Comment on above: Performed By: #### Vladimir SHERIFF ZCBCGR ####MAIN LABCLIA:[id number] [facility] [place] [address] METAMYELOCYTES #(MANUAL) 76 /cmm High 0 [facility] Comment on above: Performed By: #### Vladimir SHERIFF ZCBCGR ####MAIN LABCLIA:[id number] [facility] [place] [address] Metamyelocytes/100 leukocytes 1 % High 0 [facility] Comment on above: Performed By: #### Vladimir SHERIFF ZCBCGR ####MAIN LABCLIA:[id number] [facility] [place] [address] Monocytes 1292 /cmm High 96-972 [facility] Comment on above: Performed By: #### Vladimir SHERIFF ZCBCGR ####MAIN LABCLIA:[id number] [place] [address] Monocytes/100 leukocytes 17 % High 2-9 [facility] Comment on above: Performed By: #### Vladimir SHERIFF ZCBCGR ####MAIN LABCLIA:[id number] [facility] [place] [address] Neutrophils 3876 /cmm Normal 8966-1871 [facility] Comment on above: Performed By: #### Vladimir SHERIFF ZCBCGR ####MAIN LABCLIA:[id number] [place] [address] Neutrophils band/100 leukocytes 2 % Normal <6 [facility] Comment on above: Performed By: #### Vladimir SHERIFF ZCBCGR ####MAIN LABCLIA:[id number] [facility] [place] [address] Neutrophils/100 WBC Auto (Bld) 51 % Normal 50-70 [facility] Comment on above: Performed By: #### Vladimir SHERIFF ZCBCGR ####MAIN LABCLIA:[id number] [facility] [place] [address] TOTAL CELLS COUNTED 100 Normal [facility] Comment on above: Performed By: #### Vladimir SHERIFF ZCBCGR ####MAIN LABCLIA:[id number] [facility] [place] [address] Erythrocyte distribution width Auto Ratio (RBC) 13.0 % Normal 11.5-14.5 [facility] Comment on above: Performed By: #### C SHARITA ZCBCGR ####MAIN LABCLIA:[id number] [facility] [place] [address] Erythrocytes (RBC) 3.49 10 6/cmm Low 4.20-5.40 [facility] Comment on above: Performed By: #### C SHARITA ZCBCGR ####MAIN LABCLIA:[id number] [place] [address] Hematocrit (HCT) 29.4 % Low 38.0-47.0 [facility] Comment on above: Performed By: #### C SHARITA ZCBCGR ####MAIN LABCLIA:[id number] [facility] [place] [address] Hemoglobin mass conc (Bld) 10.1 g/dL Low 12.0-16.4 [facility] Comment on above: Performed By: #### C SHARITA ZCBCGR ####MAIN LABCLIA:[id number] [place] [address] MCH 34.5 g/dL Normal 32.0-36.0 [facility] Comment on above: Performed By: #### C SHARITA ZCBCGR ####MAIN LABCLIA:[id number] [place] [address] MCH 29.1 pg Normal 27.0-31.0 [facility] Comment on above: Performed By: #### C SHARITA ZCBCGR ####MAIN LABCLIA:[id number] [facility] [place] [address] MCV 84.3 fL Normal 80.0-96.0 [facility] Comment on above: Performed By: #### C SHARITA ZCBCGR ####MAIN LABCLIA:[id number] [facility] [place] [address] Platelets 359 10 3/cmm Normal 130-400 [facility] Comment on above: Performed By: #### C BC, ZCBCGR ####MAIN LABCLIA:[id number] [facility] [place] [address] WBC (Leukocytes) 7.6 10 3/cmm Normal 4.8-10.8 [facility] Comment on above: Performed By: #### C BC, ZCBCGR ####MAIN LABCLIA:[id number] [facility] [place] [address] FREE T4 (FREE THYROXINE)on 0 01-06-2018 Thyroxine (T4) free 2.46 ng/dL High 0.93-1.7 [facility] Comment on above: Performed By: #### C BC, ZCBCGR ####MAIN LABCLIA:[id number] [facility] [place] [address] IM Progress Noteon 8 IM Progress Note [address] [place], [place] [address] YVONNE TRINIDADRA 77 [id number] Donnell Barton MD 4W / [id number] 1940 Report #: [id number] Hospitalist Progress Note Date/Time: 01/06/18805 Report Status: [...] fine and wants to go back to [place]. Her will be driving. - Reviewed laboratory [...] have her follow-up with her physician in [place]. (2) Hyponatremia Status: Improved Plan: Sodium of 133-asymptomatic urine sodium slightly elevated at 35. (3) Essential hypertension Status: Stable (4) Hypothyroidism Plan: Suppressed TSH, her physician from [place] just called her in down dosed her [...] 0817 Electronically Cosigned By: Cosigned Date/Time: Normal [facility] T3 FREEon 01-06-2018 Triiodothyronine (T3) free 5.92 pg/mL High 2.0-4.4 [facility] Comment on above: Performed By: #### C MELONY SHERIFF ####MAIN LABCLIA:[id number] [place] [address] CBC/DIFF GROUPon 01-05-2018 NORMOCHROMIC YES Normal [facility] Comment on above: Performed By: #### C MELONY SHERIFF ####MAIN LABCLIA:[id number] [place] [address] NORMOCYTIC YES Normal [facility] Comment on above: Performed By: #### C MELONY SHERIFF ####MAIN LABCLIA:[id number] [facility] [place] [address] Platelets NORMAL [facility] Comment on above: Performed By: #### Vladimir SHERIFF ZCBCGR ####MAIN LABCLIA:[id number] [facility] [place] [address] BAND NEUTROPHILS #(MANUAL) 414 /cmm Normal <648 [facility] Comment on above: Performed By: #### Vladimir SHERIFF ZCBCGR ####MAIN LABCLIA:[id number] [place] [address] Eosinophils 552 /cmm High <432 [facility] Comment on above: Performed By: #### Vladimir SHERIFF ZCBCGR ####MAIN LABCLIA:[id number] [place] [address] Eosinophils/100 leukocytes 4 % Normal <4 [facility] Comment on above: Performed By: #### Vladimir SHERIFF ZCBCGR ####MAIN LABCLIA:[id number] [place] [address] Lymphocytes 690 /cmm Low 960-4752 [facility] Comment on above: Performed By: #### Vladimir SHERIFF ZCBCGR ####MAIN LABCLIA:[id number] [place] [address] Lymphocytes/100 leukocytes 5 % Low 20-44 [facility] Comment on above: Performed By: #### Vladimir SHERIFF ZCBCGR ####MAIN LABCLIA:[id number] [place] [address] Monocytes 1242 /cmm High 96-972 [facility] Comment on above: Performed By: #### Vladimir SHERIFF ZCBCGR ####MAIN LABCLIA:[id number] [facility] [place] [address] Monocytes/100 leukocytes 9 % Normal 2-9 [facility] Comment on above: Performed By: #### Vladimir SHERIFF ZCBCGR ####MAIN LABCLIA:[id number] [facility] [place] [address] Neutrophils 26861 /cmm High 8610-7920 [facility] Comment on above: Performed By: #### Vladimir SHERIFF ZCBCGR ####MAIN LABCLIA:[id number] [place] [address] Neutrophils band/100 leukocytes 3 % Normal <6 [facility] Comment on above: Performed By: #### AMANDA RUFFCGR ####MAIN LABCLIA:[id number] [place] [address] Neutrophils/100 WBC Auto (Bld) 79 % High 50-70 [facility] Comment on above: Performed By: #### AMANDA RUFFCGR ####MAIN LABCLIA:[id number] [facility] [place] [address] TOTAL CELLS COUNTED 100 Normal [facility] Comment on above: Performed By: #### VAMSI RUFFGR ####MAIN LABCLIA:[id number] [facility] [place] [address] Hematocrit (HCT) 36.0 % Low 38.0-47.0 [facility] Comment on above: Performed By: #### VAMSI RUFFGR ####MAIN LABCLIA:[id number] [facility] [place] [address] Hemoglobin mass conc (Bld) 12.2 g/dL Normal 12.0-16.4 [facility] Comment on above: Performed By: #### VAMSI RUFFGR ####MAIN LABCLIA:[id number] [facility] [place] [address] MCH 28.6 pg Normal 27.0-31.0 [facility] Comment on above: Performed By: #### AMANDA RUFFCGR ####MAIN LABCLIA:[id number] [facility] [place] [address] MCV 84.1 fL Normal 80.0-96.0 [facility] Comment on above: Performed By: #### AMANDA RUFFCGR ####MAIN LABCLIA:[id number] [facility] [place] [address] WBC (Leukocytes) 13.8 10 3/cmm High 4.8-10.8 [facility] Comment on above: Performed By: #### VAMSI RUFFGR ####MAIN LABCLIA:[id number] [place] [address] CHEST 2 VIEWSon 01-05-2018 CHEST [address] [phone]____ Pt Location: 4W/ ADM IN Pt RM#: [id number] MR #: [id number] DATE: 01/05/18 123 ADM#: [id number] #: [id number] JANET TRINIDADOB: 1940 Age/Sex: 77 / F REPORT STATUS: SignedORDERING PHYSICIAN: STU Salvador/PRIMARY PHYSICIAN: Doctor,Umm HISTO RY/REASON: CPCLINICAL HISTORY: Dizziness.TECHNICAL FACTORS: 2 [...] ROSY Salvador; Doctor,No; Donnell Barton MD Normal [facility] COMPLETE BLOOD COUNTon 01-05 Erythrocyte distribution width Auto Ratio (RBC) 12.7 % Normal 11.5-14.5 [facility] Comment on above: Performed By: #### C BC, ZCBCGR ####MAIN LABCLIA:[id number] [place] [address] Erythrocytes (RBC) 4.28 10 6/cmm Normal 4.20-5.40 [facility] Comment on above: Performed By: #### C BC, ZCBCGR ####MAIN LABCLIA:[id number] [place] [address] MCH 34.0 g/dL Normal 32.0-36.0 [facility] Comment on above: Performed By: #### C BC, ZCBCGR ####MAIN LABCLIA:[id number] [place] [address] Platelets 423 10 3/cmm High 130-400 [facility] Comment on above: Performed By: #### C BC, ZCBCGR ####MAIN LABCLIA:[id number] [facility] [place] [address] COMPREHENSIVE METABOLIC PANE Umberto 01-05-2018 Alanine aminotransferase (ALT) 15 U/L Normal 0-33 [facility] Comment on above: Performed By: #### C MP, MG ####MAIN LABCLIA:[id number] [facility] [place] [address] Albumin 3.3 g/dL Normal 3.0-4.5 [facility] Comment on above: Performed By: #### C MP, MG ####MAIN LABCLIA:[id number] [place] [address] Albumin/Globulin Ratio 1.2 {ratio} Normal 1-1.4 [facility] Comment on above: Performed By: #### C MP, MG ####MAIN LABCLIA:[id number] [place] [address] Alkaline phosphatase (ALP) 76 U/L Normal 35-104 [facility] Comment on above: Performed By: #### C MP, MG ####MAIN LABCLIA:[id number] [place] [address] Anion gap 15 mmol/L Normal 9-18 [facility] Comment on above: Performed By: #### C MP, MG ####MAIN LABCLIA:[id number] [facility] [place] [address] Aspartate aminotransferase (AST) 16 U/L Normal 0-32 [facility] Comment on above: Performed By: #### C MP, MG ####MAIN LABCLIA:[id number] [place] [address] Bilirubin (total) 0.4 mg/dL Normal 0.2-1.2 [facility] Comment on above: Performed By: #### C MP, MG ####MAIN LABCLIA:[id number] [place] [address] BUN (urea nitrogen) 26 mg/dL High 8-23 [facility] Comment on above: Performed By: #### C MP, MG ####MAIN LABCLIA:[id number] [place] [address] BUN/Creatinine Ratio 22.2 mg/mg Normal [facility] Comment on above: Performed By: #### C MP, MG ####MAIN LABCLIA:[id number] [place] [address] Calcium 8.5 mg/dL Low 8.8-10.2 [facility] Comment on above: Performed By: #### C MP, MG ####MAIN LABCLIA:[id number] [place] [address] Chloride 90 mmol/L Low 98-107 [facility] Comment on above: Performed By: #### C MP, MG ####MAIN LABCLIA:[id number] [place] [address] CO2 26 mmol/L Normal 22-29 [facility] Comment on above: Performed By: #### C MP, MG ####MAIN LABCLIA:[id number] [facility] [place] [address] Creatinine 1.17 mg/dL High 0.50-0.90 [facility] Comment on above: Performed By: #### C MP, MG ####MAIN LABCLIA:[id number] [facility] [place] [address] eGFR (MDRD) 47 /1.73 m2 Low >60 mL/min [facility] Comment on above: Result Comment: Norm al RangeStage Description:1 Normal or Increased GFR >=902 Mild Decrease in GFR 60-903 Moderately Decreased GFR 30-594 Severely Decreased GFR 15-295 Kidney Failure <15 Performed By: #### C MP, MG ####MAIN LABCLIA:[id number] [facility] [place] [address] Globulin 2.7 g/dL Normal 2.3-3.5 [facility] Comment on above: Performed By: #### C MP, MG ####MAIN LABCLIA:[id number] [facility] [place] [address] Glucose mass conc 136 mg/dL High 74-109 [facility] Comment on above: Performed By: #### C MP, MG ####MAIN LABCLIA:[id number] [facility] [place] [address] Potassium molar conc 4.5 mmol/L Normal 3.5-5.1 [facility] Comment on above: Performed By: #### C MP, MG ####MAIN LABCLIA:[id number] [facility] [place] [address] Protein 6.0 g/dL Low 6.4-8.3 [facility] Comment on above: Performed By: #### C MP, MG ####MAIN LABCLIA:[id number] [facility] [place] [address] Sodium 126 mmol/L Low 136-145 [facility] Comment on above: Performed By: #### C MP, MG ####MAIN LABCLIA:[id number] [facility] [place] [address] CT HEAD WOon 01-05-2018 CT HEAD WO [address] [phone]____ Pt Location: 4W/ ADM IN Pt RM#: [id number] MR #: [id number] DATE: 01/05/18 1236 ADM#: [id number] #: [id number] JANET TRINIDADOB: 1940 Age/Sex: 77 / F [...] matter.REPORT# [id number] READ BY: Cielo Pacheco M.D. [id number] REPORT RELEASED BY: Cielo Pacheco M.D. 01/05/18 1502Transcribed Date/Time: 01/05/18 1339 PLPCC: ROSY Salvador; Doctor,No; Donnell Barton MD [facility] Emergency Room Visit Reporto n 01-05-2018 Emergency Room Visit Report [address] [address] TANGELA TRINIDAD 1940 (77 F) [id number] Helio Hoang 4W Report #: [id number] PCP: No Doctor Emergency Room Visit Report [...] reports feeling dizziness and near syncope at [facility]. Pt reports recent bronchitis that she was [...] Allergy Mild Rash Verified 01/05/18 12:40 Antibiotics) Mktaqsi-Iph-Etk Reductase Allergy Unknown Verified 01/05/18 12:40 Inhibitor [...] PO BID 01/05/18 01/05/18 raNITIdine HCl [Acid Showroom Consultant] 150 mg PO BID 01/05/18 01/05/18 ROS [...] % (Manual) (<4) % Neutrophils # (Manual) (6747-2122) /cmm Band Neutrophils # (<648) /cmm Lymphocytes [...] Appearance Clear Urine pH 7.0 Ur Specific [place] <=1.005 Urine Protein Negative (NEGATIVE) Urine Glucose [...] (Manual) 4 (<4) % Neutrophils # (Manual) 01879 H (3367-4350) /cmm Band Neutrophils # 414 (<648) /cmm [...] Color Urine Appearance Urine pH Ur Specific [place] Urine Protein (NEGATIVE) Urine Glucose (UA) (NEGATIVE) [...] Troponin CONTINUOUS Routine Ca 01/05/18 16:08 Active [facility] CONTIN Routine Ca 01/05/18 16:08 Active Telemetry [...] an inhaler. This was obtained by the [facility] pharmacy in [facility]. 01/05/18 14:40 I discussed this patient [...] Sohan Grover MD Cosigned Date/Time: 01/05/18 190 [facility] History & Physicalon 018 History & Physical [address] [address] TANGELA TRINIDAD [id number] Donnell Barton MD 4W / [id number] 1940 Report #: [id number] Admission Date: 01/05/18 History Physical Date/Time: 01/05/18 [...] episode. Patient is visiting this area from [place] in [place] [...] Allergy Mild Rash Verified 01/05/18 12:40 Antibiotics) Pzvtgxg-Egl-Xqd Reductase Allergy Unknown Verified 01/05/18 12:40 Inhibitor [...] PO BID 01/05/18 01/05/18 raNITIdine HCl [Acid Showroom Consultant] 150 mg PO BID 01/05/18 01/05/18 Allergies [...] 1541 Electronically Cosigned By: Cosigned Date/Time: Normal [facility] MAGNESIUMon 01-05-2018 Magnesium 2.1 mg/dL Normal 1.6-2.6 [facility] Comment on above: Performed By: #### C MP, MG ####MAIN LABCLIA:[id number] [facility] [place] [address] SODIUM,URINE RANDOMon 2017 SODIUM,URINE RANDOM 35 mmol/L Normal [facility] Comment on above: Order Comment: COLLE CTED BY: Sherine Tenorio Result Comment: The reference range has not been established for this test. Performed By: #### C BC, ZCBCGR ####MAIN LABCLIA:[id number] [facility] [place] [address] THYROID STIMULATING HORMONEo n 01-05-2018 Thyroid stimulating hormone (TSH) 0.16 uIU/mL Low 0.27-4.20 [facility] Comment on above: Performed By: #### C BC, ZCBCGR ####MAIN LABCLIA:[id number] [facility] [place] [address] TROPONIN Ton 01-05-2018 Troponin T.cardiac mass conc ug/L Normal <0.010 [facility] Comment on above: Result Comment: Valu [...] Performed By: #### C BC, ZCBCGR ####MAIN LABCLIA:[id number] [facility] [place] [address] Troponin T.cardiac mass conc ug/L Normal <0.010 [facility] Comment on above: Result Comment: Valu [...] hours. Performed By: #### T ROPT ####MAIN LABCLIA:[id number] [facility] [address] URINALYSISon 01-05-2018 UA APPEARANCE CLEAR Normal [facility] Comment on above: Order Comment: COLLE CTED BY: davedVOID-MIDSTREAM Performed By: #### U A ####MAIN LABCLIA:[id number] [facility] [address] UA BACTERIA NONE Normal NONE [facility] Comment on above: Order Comment: COLLE CTED BY: davedVOID-MIDSTREAM Performed By: #### U A ####MAIN LABCLIA:[id number] [facility] [place] [address] UA SQUAMOUS EPITHELIAL 0-2 Normal [facility] Comment on above: Order Comment: COLLE CTED BY: davedVOID-MIDSTREAM Performed By: #### U A ####MAIN LABCLIA:[id number] [facility] [place] [address] UA WBC 0-2 Normal 0-2 [facility] Comment on above: Order Comment: COLLE CTED BY: davedVOID-MIDSTREAM Performed By: #### U A ####MAIN LABCLIA:[id number] [facility] [place] [address] Urine, color YELLOW Normal [facility] Comment on above: Order Comment: COLLE CTED BY: Tye acostaOID-MIDSTREAM Performed By: #### U A ####MAIN LABCLIA:[id number] [facility] [address] Urine, erythrocytes 0-2 Normal 0-2 [facility] Comment on above: Order Comment: COLLE CTED BY: davedVOID-MIDSTREAM Performed By: #### U A ####MAIN LABCLIA:[id number] [facility] [place] [address] UA BILIRUBIN Negative Normal NEGATIVE [facility] Comment on above: Order Comment: COLLE CTED BY: Tye acostaOID-MIDSTREAM Performed By: #### U A ####MAIN LABCLIA:[id number] [facility] [place] [address] UA BLOOD Negative Normal NEGATIVE [facility] Comment on above: Order Comment: COLLE CTED BY: Tye acostaOID-MIDSTREAM Performed By: #### U A ####MAIN LABCLIA:[id number] [place] [address] UA LEUKOCYTE ESTERASE TRACE Normal NEGATIVE [facility] Comment on above: Order Comment: COLLE CTED BY: Tye acostaOID-MIDSTREAM Performed By: #### U A ####MAIN LABCLIA:[id number] [facility] [place] [address] UA NITRITES Negative Normal NEGATIVE [facility] Comment on above: Order Comment: COLLE CTED BY: Tye acostaOID-MIDSTREAM Performed By: #### U A ####MAIN LABCLIA:[id number] [facility] [place] [address] UA PH 7.0 Normal [facility] Comment on above: Order Comment: COLLE CTED BY: Tye acostaOID-MIDSTREAM Performed By: #### U A ####MAIN LABCLIA:[id number] [facility] [place] [address] UA PROTEIN Negative Normal NEGATIVE [facility] Comment on above: Order Comment: COLLE CTED BY: Tye acostaOID-MIDSTREAM Performed By: #### U A ####MAIN LABCLIA:[id number] [place] [address] UA SPECIFIC GRAVITY <=1.005 Normal [facility] Comment on above: Order Comment: COLLE CTED BY: Tye acostaOID-MIDSTREAM Performed By: #### U A ####MAIN LABCLIA:[id number] [place] [address] UA UROBILINOGEN 0.2 mg/dL Normal 0.0-1.0 [facility] Comment on above: Order Comment: COLLE CTED BY: Tye acostaOID-MIDSTREAM Performed By: #### U A ####MAIN LABCLIA:[id number] [facility] [place] [address] Urine, glucose Negative Normal NEGATIVE [facility] Comment on above: Order Comment: COLLE CTED BY: davedVOID-MIDSTREAM Performed By: #### U A ####MAIN LABCLIA:[id number] [facility] [place] [address] Urine, ketones presence Negative Normal NEGATIVE [facility] Comment on above: Order Comment: COLLE CTED BY: Tye acostaOID-MIDSTREAM Performed By: #### U A ####MAIN LABCLIA:[id number] [place] [address] URINE SOURCE VOID-MIDSTREAM Normal [facility] Comment on above: Order Comment: COLLE CTED BY: Tye acostaOID-MIDSTREAM Performed By: #### U A ####MAIN LABCLIA:[id number] [facility] [place] [address] VASCULAR RISK PANELon 2017 Cholesterol 180 mg/dL Normal 0-199 [facility] Comment on above: Order Comment: Comme nts: Use blood from ED if available Performed By: #### C BC, ZCBCGR ####MAIN LABCLIA:[id number] [facility] [place] [address] HDL Cholesterol 42 mg/dL Low >65 [facility] Comment on above: Order Comment: Comme nts: Use blood from ED if available Performed By: #### C BC, ZCBCGR ####MAIN LABCLIA:[id number] [facility] [place] [address] LDL Cholesterol 98 mg/dL Normal <129 [facility] Comment on above: Order Comment: Comme nts: Use blood from ED if available Performed By: #### C BC, ZCBCGR ####MAIN LABCLIA:[id number] [facility] [place] [address] Triglyceride 202 mg/dL High 0-199 [facility] Comment on above: Order Comment: Comme nts: Use blood from ED if available Performed By: #### C BC, ZCBCGR ####MAIN LABCLIA:[id number] [facility] [place] [address] VLDL CHOLESTEROL 40 mg/dL Normal 5-40 [facility] Comment on above: Order Comment: Comme nts: Use blood from ED if available Performed By: #### C BC, ZCBCGR ####MAIN LABCLIA:[id number] [facility] [place] [address] Vital Signs Date Time Vital Sign Value Performing Clinician Facility 01-02-2024 11:39-0400 Body height 152.4 cm DO Kvng Ball Work Phone: [facility] 01-02-2024 11:39-0400 Body mass index (BMI) [Ratio] 26.6 kg/m2 DO Kvng Ball Work Phone: [facility] 01-02-2024 11:39-0400 Body weight 61.91 kg DO Kvng Ball Work Phone: [facility] 01-02-2024 11:39-0400 Diastolic blood pressure 85 mm[Hg] DO Kvng Ball Work Phone: [facility] 01-02-2024 11:39-0400 Heart rate 66 /min DO Kvng Ball Work Phone: [facility] 01-02-2024 11:39-0400 Respiratory rate 12 /min DO Kvng Ball Work Phone: [facility] 01-02-2024 11:39-0400 Systolic blood pressure 124 mm[Hg] DO Kvng Ball Work Phone: [facility] 05-27-2023 11:00-0500 Body height 152.4 cm Kvng Ball Other [facility] [employer] Other 05-27-2023 11:00-0500 Diastolic blood pressure 84 mm[Hg] Kvng Ball Other [facility] Other 05-27-2023 11:00-0500 Systolic blood pressure 124 mm[Hg] Kvng Ball Other [facility] Other 03-04-2023 13:45-0400 Body height 152.4 cm Kvng Ball Other [facility] Other 03-04-2023 13:45-0400 Body mass index (BMI) [Ratio] 28.47 kg/m2 Kvng Ball Other [facility] Other 03-04-2023 13:45-0400 Body weight 66.13 kg Kvng Ball Other [facility] Other 03-04-2023 13:45-0400 Diastolic blood pressure 80 mm[Hg] Kvng Ball Other [facility] Other 03-04-2023 13:45-0400 Respiratory rate 12 /min Kvng Ball Other [facility] Other 03-04-2023 13:45-0400 Systolic blood pressure 117 mm[Hg] Kvng Ball Other [facility] Other 02-22-2023 11:00-0400 Body height 152.4 cm Kvng Ball Other [facility] Other 02-22-2023 11:00-0400 Body mass index (BMI) [Ratio] 28.39 kg/m2 Kvng Ball Other [facility] Other 02-22-2023 11:00-0400 Body weight 65.95 kg Kvng Ball Other [facility] Other 02-22-2023 11:00-0400 Diastolic blood pressure 83 mm[Hg] Kvng Ball Other [facility] [employer] Other 02-22-2023 11:00-0400 Respiratory rate 12 /min Kvng Ball Other [facility] [employer] Other 02-22-2023 11:00-0400 Systolic blood pressure 132 mm[Hg] Kvng Ball Other [facility] Other 01-24-2023 09:18-0400 Diastolic blood pressure 72 mm[Hg] DO Kvng Ball Work Phone: [facility] 01-24-2023 09:18-0400 Heart rate 56 /min DO Kvng Ball Work Phone: [facility] 01-24-2023 09:18-0400 Respiratory rate 14 /min DO Kvng Ball Work Phone: [facility] 01-24-2023 09:18-0400 SaO2% (BldA) [Mass fraction] 98 % DO Kvng Ball Work Phone: [facility] 01-24-2023 09:18-0400 Systolic blood pressure 126 mm[Hg] DO Kvng Ball Work Phone: [facility] 01-24-2023 07:44-0400 Body height 154.94 cm DO Kvng Ball Work Phone: [facility] 01-24-2023 07:44-0400 Body temperature 97.8 [degF] DO Kvng Ball Work Phone: [facility] 01-24-2023 07:44-0400 Body weight 65.31 kg DO Kvng Ball Work Phone: [facility] 11-18-2022 12:00-0400 Body height 152.4 cm Kvng Ball Other [facility] [employer] Other 11-18-2022 12:00-0400 Body mass index (BMI) [Ratio] 28.74 kg/m2 Kvng Ball Other [facility] Other 11-18-2022 12:00-0400 Body weight 66.77 kg Kvng Ball Other [facility] [employer] Other 11-18-2022 12:00-0400 Diastolic blood pressure 82 mm[Hg] Kvng Ball Other [facility] [employer] Other 11-18-2022 12:00-0400 Respiratory rate 12 /min Kvng Ball Other [facility] [employer] Other 11-18-2022 12:00-0400 Systolic blood pressure 125 mm[Hg] Kvng Ball Other [facility] [employer] Other 10-28-2022 14:05-0400 Diastolic blood pressure 73 mm[Hg] DO Kvng Ball Work Phone: [facility] 10-28-2022 14:05-0400 Heart rate 60 /min DO Kvng Ball Work Phone: [facility] 10-28-2022 14:05-0400 Respiratory rate 18 /min DO Kvng Ball Work Phone: [facility] 10-28-2022 14:05-0400 SaO2% (BldA) [Mass fraction] 96 % DO Kvng Ball Work Phone: [facility] 10-28-2022 14:05-0400 Systolic blood pressure 117 mm[Hg] DO Kvng Ball Work Phone: [facility] 10-28-2022 11:42-0400 Body height 154.94 cm DO Kvng Ball Work Phone: [facility] 10-28-2022 11:42-0400 Body temperature 97.9 [degF] DO Kvng Ball Work Phone: [facility] 10-28-2022 11:42-0400 Body weight 65.77 kg DO Kvng Ball Work Phone: [facility] 10-12-2022 15:00-0400 Body height 152.4 cm Kvng Ball Other [facility] Other 10-12-2022 15:00-0400 Body mass index (BMI) [Ratio] 28.78 kg/m2 Kvng Ball Other [facility] Other 10-12-2022 15:00-0400 Body weight 66.86 kg Kvng Ball Other [facility] Other 10-12-2022 15:00-0400 Diastolic blood pressure 80 mm[Hg] Kvng Ball Other [facility] Other 10-12-2022 15:00-0400 Respiratory rate 12 /min Kvng Ball Other [facility] Other 10-12-2022 15:00-0400 Systolic blood pressure 116 mm[Hg] Kvng Ball Other [facility] Other 07-27-2022 14:38-0500 Body height 152.4 cm Mavis Santiago MD Work Phone: [facility] 07-27-2022 14:38-0500 Body temperature 98.1 [degF] Mavis Santiago MD Work Phone: [facility] 07-27-2022 14:38-0500 Body weight 66.5 kg Mavis Santiago MD Work Phone: [facility] 07-27-2022 14:38-0500 Diastolic blood pressure 72 mm[Hg] Mavis Santiago MD Work Phone: [facility] 07-27-2022 14:38-0500 Heart rate 64 /min Mavis Santiago MD Work Phone: [facility] 07-27-2022 14:38-0500 Respiratory rate 16 /min Mavis Santiago MD Work Phone: [facility] 07-27-2022 14:38-0500 SaO2% (BldA) [Mass fraction] 97 % Mavis Santiago MD Work Phone: [facility] 07-27-2022 14:38-0500 Systolic blood pressure 125 mm[Hg] Mavis Santiago MD Work Phone: [facility] 07-26-2022 09:19-0500 Diastolic blood pressure 69 mm[Hg] DO Kvng Ball Work Phone: [facility] 07-26-2022 09:19-0500 Heart rate 59 /min DO Kvng Ball Work Phone: [facility] 07-26-2022 09:19-0500 Respiratory rate 16 /min DO Kvng Ball Work Phone: [facility] 07-26-2022 09:19-0500 SaO2% (BldA) [Mass fraction] 98 % DO Kvng Ball Work Phone: [facility] 07-26-2022 09:19-0500 Systolic blood pressure 111 mm[Hg] DO Kvng Ball Work Phone: [facility] 07-26-2022 07:19-0500 Body height 154.94 cm DO Kvng Ball Work Phone: [facility] 07-26-2022 07:19-0500 Body temperature 97.7 [degF] DO Kvng Ball Work Phone: [facility] 07-26-2022 07:19-0500 Body weight 66.22 kg DO Kvng Ball Work Phone: [facility] 07-21-2022 14:30-0500 Body height 152.4 cm Kvng Ball Other [facility] Other 07-21-2022 14:30-0500 Body mass index (BMI) [Ratio] 28.82 kg/m2 Kvng Ball Other [facility] Other 07-21-2022 14:30-0500 Body weight 66.95 kg Kvng Ball Other [facility] Other 07-21-2022 14:30-0500 Diastolic blood pressure 70 mm[Hg] Kvng Ball Other [facility] Other 07-21-2022 14:30-0500 Respiratory rate 12 /min Kvng Ball Other [facility] Other 07-21-2022 14:30-0500 Systolic blood pressure 118 mm[Hg] Kvng Ball Other [facility] Other 05-25-2022 13:02-0500 Body temperature 96.91 [degF] Chair [place] Work Phone: [facility] 05-25-2022 13:02-0500 Diastolic blood pressure 88 mm[Hg] Chair [place] Work Phone: [facility] 05-25-2022 13:02-0500 Heart rate 68 /min Chair [place] Work Phone: [facility] 05-25-2022 13:02-0500 Respiratory rate 18 /min Chair Ryan Work Phone: [facility] 05-25-2022 13:02-0500 SaO2% (BldA) [Mass fraction] 100 % Chair Ryan Work Phone: [facility] 05-25-2022 13:02-0500 Systolic blood pressure 146 mm[Hg] Chair Ryan Work Phone: [facility] 05-18-2022 15:42-0500 Body temperature 98.1 [degF] Mavis Santiago MD Work Phone: [facility] 05-18-2022 15:42-0500 Body weight 68.04 kg Mavis Santiago MD Work Phone: [facility] 05-18-2022 15:42-0500 Diastolic blood pressure 78 mm[Hg] Mavis Santiago MD Work Phone: [facility] 05-18-2022 15:42-0500 Heart rate 78 /min Mavis Santiago MD Work Phone: [facility] 05-18-2022 15:42-0500 Respiratory rate 16 /min Mavis Santiago MD Work Phone: [facility] 05-18-2022 15:42-0500 SaO2% (BldA) [Mass fraction] 98 % Mavis Santiago MD Work Phone: [facility] 05-18-2022 15:42-0500 Systolic blood pressure 122 mm[Hg] Mavis Santiago MD Work Phone: [facility] Encounters Encounter Date Encounter Type Care Provider Facility Start: 04-02-2024 End: 04-02-2024 ambulatory Charlotte Levi MD Facility:[facility] Start: 03-29-2024 End: 03-29-2024 ambulatory LORELEI HURTADO Not Available Start: 03-20-2024 End: 03-20-2024 ambulatory NICHO MARC Not Available Start: 03-16-2024 End: 03-16-2024 Patient encounter procedure DO Kvng Melgar Work Phone: [facility] Work Phone: Start: 03-16-2024 End: 03-16-2024 ambulatory DO Kvng Melgar Work Phone: [facility] Work Phone: Start: 03-01-2024 End: 03-01-2024 ambulatory LORELEI HURTADO Not Available Start: 01-31-2024 End: 01-31-2024 ambulatory LORELEI HURTADO Not Available Start: 01-25-2024 End: 01-25-2024 ambulatory TED GILMORE Not Available Start: 01-02-2024 End: 01-02-2024 Patient encounter procedure DO Kvng Melgar Work Phone: [facility] Work Phone: Start: 09-15-2023 End: 09-15-2023 ambulatory Imad Asaad Other [facility] Other Start: 09-15-2023 Telephone encounter Imad Asaad [facility] Start: 08-10-2023 End: 08-10-2023 ambulatory Imad Asaad Other [facility] Other Start: 08-10-2023 Office outpatient vi sit 25 minutes Imad Asaad [facility] Start: 08-01-2023 End: 08-01-2023 ambulatory Kvng Melgar Other [facility] Other Start: 08-01-2023 Telephone encounter Kvng RODRIGES [facility] Start: 07-25-2023 End: 07-25-2023 Patient encounter procedure DO Kvng Melgar Work Phone: [facility] Work Phone: Start: 07-25-2023 End: 07-25-2023 ambulatory DO Kvng Melgar Work Phone: [facility] Work Phone: Start: 07-06-2023 End: 07-06-2023 ambulatory Imad Asaad Other [facility] Other Start: 07-06-2023 Telephone encounter Imad Asaad [facility] Start: 06-20-2023 End: 06-20-2023 ambulatory Kvng Melgar Other [facility] Other Start: 06-20-2023 Telephone encounter Kvng RODRIGES [facility] Start: 06-15-2023 End: 06-15-2023 ambulatory Kvng Melgar Other [facility] Other Start: 06-15-2023 Telephone encounter Kvng Melgar [facility] Start: 06-08-2023 End: 06-08-2023 ambulatory Kvng Melgar Other [facility] Other Start: 06-08-2023 Telephone encounter Kvng Melgar [facility] Start: 05-31-2023 End: 05-31-2023 ambulatory Kvng Melgar Other [facility] Other Start: 05-31-2023 Telephone encounter Kvng Melgar [facility] Start: 05-29-2023 End: 05-29-2023 ambulatory Kvng Melgar Other [facility] Other Start: 05-29-2023 Telephone encounter Kvng Melgar [facility] Start: 05-28-2023 End: 05-28-2023 ambulatory Kvng Melgar Other [facility] Other Start: 05-28-2023 Telephone encounter Kvng Melgar [facility] Start: 05-27-2023 End: 05-27-2023 ambulatory Kvng Melgar Other [facility] Other Start: 05-27-2023 Office outpatient vi sit 25 minutes Kvng Melgar [facility] Start: 05-25-2023 End: 05-25-2023 ambulatory Kvng Melgar Other [facility] Other Start: 05-25-2023 Telephone encounter Kvng Melgar [facility] Start: 05-20-2023 End: 05-20-2023 ambulatory Kvng Ermelinda Other [facility] Other Start: 05-20-2023 Telephone encounter Kvng Melgar [facility] Start: 05-10-2023 End: 05-10-2023 ambulatory Imad Asaad Other [facility] Other Start: 05-10-2023 Telephone encounter Imad Asaad [facility] Start: 04-26-2023 End: 04-26-2023 ambulatory Kvng Melgar Other [facility] Other Start: 04-26-2023 Nursing evaluation o f patient and report Kvng Melgar [facility] Start: 03-23-2023 End: 03-23-2023 ambulatory Imad Asaad Other [facility] Other Start: 03-23-2023 Telephone encounter Imad Asaad [facility] Start: 03-10-2023 End: 03-10-2023 ambulatory Kvng Melgar Other [facility] Other Start: 03-10-2023 Telephone encounter Kvng Melgar [facility] Start: 03-07-2023 End: 03-07-2023 ambulatory Kvng Melgar Other [facility] Other Start: 03-07-2023 Telephone encounter Kvng Melgar [facility] Start: 03-04-2023 End: 03-04-2023 ambulatory Kvng Melgar Other [facility] Other Start: 03-04-2023 Office outpatient vi sit 15 minutes Kvng Ball [facility] Start: 02-28-2023 End: 02-28-2023 ambulatory Kvng Melgar Other [facility] Other Start: 02-28-2023 Telephone encounter Kvng Ball [facility] Start: 02-22-2023 End: 02-22-2023 ambulatory Kvng Ball Other [facility] Other Start: 02-22-2023 Office outpatient vi sit 25 minutes Kvng Ball [facility] Start: 02-21-2023 End: 02-21-2023 ambulatory Kvng Ball Other [facility] Other Start: 02-21-2023 Telephone encounter Kvng Ball [facility] Start: 01-24-2023 End: 01-24-2023 ambulatory Sadiq Beckham Other [facility] Other Start: 01-24-2023 Telephone encounter [facility] Start: 01-24-2023 End: 01-24-2023 Admission to same day surgery center DO Kvng Melgar Work Phone: [facility] Work Phone: Start: 12-28-2022 End: 12-28-2022 ambulatory Kvng Melgar Other [facility] Other Start: 12-28-2022 Telephone encounter Kvng Melgar [facility] Start: 11-19-2022 End: 11-19-2022 ambulatory Kvng Melgar Other [facility] Other Start: 11-19-2022 Telephone encounter Kvng Melgar [facility] Start: 11-18-2022 End: 11-18-2022 ambulatory Kvng Melgar Other [facility] Other Start: 11-18-2022 Patient encounter procedure Kvng Melgar [facility] Start: 11-01-2022 End: 11-01-2022 ambulatory Imad Asaad Other [facility] Other Start: 11-01-2022 Telephone encounter Imad Asaad [facility] Start: 10-28-2022 Telephone encounter [facility] Start: 10-28-2022 End: 10-28-2022 Admission to same day surgery center DO Kvng Melgar Work Phone: [facility] Work Phone: Start: 10-28-2022 End: 10-28-2022 ambulatory DO Kvng Melgar Work Phone: [facility] Work Phone: Start: 10-21-2022 End: 10-21-2022 ambulatory Kvng Melgar Other [facility] Other Start: 10-21-2022 Telephone encounter Kvng Armstrong [facility] Start: 10-20-2022 End: 10-21-[address] KVNG MELGAR Facility:[facility] Start: 10-12-2022 End: 10-12-2022 ambulatory Kvng Melgar Other [facility] Other Start: 10-12-2022 Office outpatient vi sit 15 minutes Kvng Melgar [facility] Start: 10-12-2022 Telephone encounter Kvng Armstrong [employer] Start: 09-27-2022 End: 10-13-[address] KVNG MELGAR Facility:[facility] Start: 07-29-2022 End: 07-29-2022 ambulatory Kvng Melgar Other [facility] Other Start: 07-29-2022 Telephone encounter Kvng Armstrong [facility] Start: 07-27-2022 End: 07-27-2022 ambulatory KVNG MELGAR Facility:[facility] Start: 07-27-2022 End: 07-27-2022 Office outpatient visit 15 minutes Mavis Santiago MD Work Phone: Hematology/Oncology Comment on above: Iron deficiency (Danielle bethany Dx) Start: 07-26-2022 Telephone encounter Imad Asaad [facility] Start: 07-26-2022 End: 07-26-2022 Admission to same day surgery center DO Kvng Ermelinda Work Phone: [facility] Work Phone: Start: 07-26-2022 End: 07-26-2022 ambulatory DO Kvng Ermelinda Work Phone: [facility] Work Phone: Start: 07-22-2022 End: 07-22-2022 Patient encounter procedure DO Kvng Melgar Work Phone: [facility] Work Phone: Start: 07-21-2022 End: 07-21-2022 ambulatory Kvng Melgar Other [facility] Other Start: 07-21-2022 Office outpatient vi sit 25 minutes [facility] Start: 06-02-2022 Social Work Marcia Ramires DIRECTOR PUBLIC SERVICE Hematolo gy/Oncology Start: 05-25-2022 Telephone encounter Financial Navigator Damon Work Phone: Hematology/Oncology Comment on above: Benefits Investigati on Start: 05-25-2022 End: 05-26-2022 ambulatory Chair [address] [place] Work Phone: Hematology/Oncology Comment on above: Iron deficiency anem ia, unspecified iron deficiency anemia type (Primary Dx); Iron deficiency Start: 05-18-2022 End: 05-18-2022 Patient encounter procedure Mavis Santiago MD Work Phone: [facility] Start: 05-18-2022 End: 05-18-2022 ambulatory Mavis Santiago MD Work Phone: Hematology/Oncology Comment on above: Iron deficiency (Danielle bethany Dx) Start: 05-18-2022 Telephone encounter Adebayo Armstrong [employer] Start: 05-17-2022 Chart abstracting Mavis abraham MD [...] MELGAR Facility:[facility] Start: 06-09-2021 Adult health examination Kvng Melgar Other [facility] Other Start: 08-02-2019 Preoperative cardiovascular examination Kvng Melgar Other [facility] Other Start: 05-31-2019 Gynecological examination normal Kvng Melgar Other [facility] Other Start: 01-05-2018 End: 01-06-2018 Evaluation and management of inpatient No Doctor Facility:[facility] Procedures Date Procedure Procedure Detail Performing Clinician Start: 03-16-2024 CT of thorax with contrast DO Kvng Guerrero all Work Phone: Start: 07-25-2023 Radionuclide gastric emptying study DO [...] Iron deficiency Expected: 01/24/2023 (Approximate), Expires: 03/26/2023 [facility] Work Phone: Comment on above: Expected: 01/24/2023 (Approximate), Expires: 03/26/2023 Start: 01-24-2023 End: 07-27-2023 Ferritin [Mass/volume] in Serum or Plasma FERRITIN BLD Lab Routine Iron deficiency Expected: 01/24/2023 (Approximate), Expires: 07/27/2023 [facility] Work Phone: Comment on above: Expected: 01/24/2023 (Approximate), Expires: 07/27/2023 Start: 01-24-2023 End: 07-27-2023 Iron and Iron binding capacity panel - Serum or Plasma IRON + TIBC Lab Routine Iron deficiency Expected: 01/24/2023 (Approximate), Expires: 07/27/2023 [facility] Work Phone: Comment on above: Expected: 01/24/2023 (Approximate), Expires: 07/27/2023 Start: 01-24-2023 [facility] Start: 10-28-2022 [facility] Start: 07-27-2022 End: 09-26-2022 CBC W Auto Differential panel - Blood CBC + DIFF Lab Routine Iron deficiency Expected: 07/27/2022 (Approximate), Expires: 09/26/2022 [facility] Work Phone: Comment on above: Expected: 07/27/2022 (Approximate), Expires: 09/26/2022 Start: 07-27-2022 End: 05-18-2023 Ferritin [Mass/volume] in Serum or Plasma FERRITIN BLD Lab Routine Iron deficiency Expected: 07/27/2022 (Approximate), Expires: 05/18/2023 [facility] Work Phone: Comment on above: Expected: 07/27/2022 (Approximate), Expires: 05/18/2023 Start: 07-27-2022 End: 05-18-2023 Iron and Iron binding capacity panel - Serum or Plasma IRON + TIBC Lab Routine Iron deficiency Expected: 07/27/2022 (Approximate), Expires: 05/18/2023 [facility] Work Phone: Comment on above: Expected: 07/27/2022 (Approximate), Expires: 05/18/2023 Start: 07-27-2022 End: 09-26-2022 RETIC COUNT RETIC COUNT Lab Routine Iron deficiency Expected: 07/27/2022 (Approximate), Expires: 09/26/2022 [facility] Work Phone: Comment on above: Expected: 07/27/2022 (Approximate), Expires: 09/26/2022 Start: 07-26-2022 [facility] Start: 07-11-2022 ADVANCE DIRECTIVE DISCUSSION ADVANCE DIRECTIVE DISCUSSION [facility] Start: 07-11-2022 DEPRESSION ASSESSMENT DEPRESSION ASS ESSMENT [facility] Start: 03-11-2022 Influenza vaccination INFLUENZA (#1) [facility] Start: 01-30-2022 COVID-19 VACCINE (5 - Booster for Pfizer series) COVID-19 VACCINE (5 - Booster for Pfizer series) [facility] Start: 07-11-2021 ADVANCE DIRECTIVE DISCUSSION ADVANCE DIRECTIVE DISCUSSION [facility] Start: 07-11-2021 DEPRESSION ASSESSMENT [facility] Start: 03-29-2019 PNEUMOCOCCAL: 65+ (2 - PCV) PNEUMOCOCCAL: 65+ (2 - PCV) [facility] Start: 11-15-2017 DIABETES SCREEN DIABETES SCREEN [facility] Start: 04-23-2016 PNEUMOCOCCAL: 65+ (2 - PCV) PNEUMOCOCCAL: 65+ (2 - PCV) [facility] Start: 2003 BONE DENSITY BONE DENSITY [facility] Start: 01-22-1988 SHINGRIX VACCINE (1 of 2) SHINGRIX VACCINE (1 of 2) [facility] Start: 1957 Urine microalbumin profile DTAP,TDAP,TD (1 - Tdap) [facility] Start: 1940 COVID-19 VACCINE (#1) COVID-19 VACCI NE (#1) [facility] Patient Education [facility] Work Phone: XR Knee - right 4 Views [facility] Immunizations Immunization Date Immunization Notes Care Provider Saurabh rico 04-26-2023 influenza, high dose seasonal, preservative-free Kvng Melgar Other [facility] Other 04-26-2023 influenza virus vaccine, unspecified formulation DO Kvng Melgar Work Phone: [facility] 10-19-2022 COVID-19 Pfizer (bivalent) Kvng Melgar Other [facility] 12-05-2021 COVID-19 Pfizer Kvng Villalta estefania Other [facility] 12-05-2021 COVID-19 Vaccine Pfi zer - Documentation Purposes Only Kvng Melgar Other [facility] 04-14-2021 COVID-19 Vaccine Pfi zer - Documentation Purposes Only Kvng Melgar Other [facility] 04-06-2021 influenza virus vaccine, split virus (incl. purified surface antigen) Kvng Melgar Other [facility] Other 04-06-2021 influenza virus vaccine, unspecified formulation DO Kvng Melgar Work Phone: [facility] 04-06-2021 influenza, high-dose , quadrivalent vaccine (FLUZONE HIGH DOSE QUADRIVALENT) Mavis Santiago MD Work Phone: [facility] 08-27-2020 COVID-19 Vaccine Pfi zer - Documentation Purposes Only Kvng Melgar Other [facility] 08-04-2020 COVID-19 Vaccine Pfi zer - Documentation Purposes Only Kvng Melgar Other [facility] 04-04-2020 influenza virus vaccine, split virus (incl. purified surface antigen) Kvng Melgar Other [facility] Other 04-04-2020 influenza virus vaccine, unspecified formulation DO Kvng Melgar Work Phone: [facility] 04-04-2020 influenza, high-dose , quadrivalent vaccine (FLUZONE HIGH DOSE QUADRIVALENT) Mavis Santiago MD Work Phone: [facility] 04-18-2019 influenza, injectabl e, quadrivalent, preservative free Mavis Santiago MD Work Phone: [facility] 03-22-2019 Seasonal trivalent influenza vaccine, adjuvanted, preservative free Mavis Santiago MD Work Phone: [facility] 04-13-2018 influenza virus vaccine, split virus (incl. purified surface antigen) Kvng Melgar Other [facility] Other 04-13-2018 influenza virus vaccine, unspecified formulation DO Kvng Melgar Work Phone: [facility] 04-13-2018 Seasonal trivalent influenza vaccine, adjuvanted, preservative free Mavis Santiago MD Work Phone: [facility] 03-29-2018 pneumococcal polysaccharide vaccine, 23 valent Mavis Santiago MD Work Phone: [facility] 05-25-2017 Seasonal trivalent influenza vaccine, adjuvanted, preservative free Mavis Santiago MD Work Phone: [facility] 04-27-2016 influenza virus vaccine, split virus (incl. purified surface antigen) Kvng Melgar Other [facility] Other 04-27-2016 influenza virus vaccine, unspecified formulation DO Kvng Melgar Work Phone: [facility] 04-27-2016 influenza, high dose seasonal, preservative-free Mavis Santiago MD Work Phone: [facility] 04-23-2015 influenza, injectabl e, quadrivalent, preservative free Mavis Santiago MD Work Phone: [facility] 04-23-2015 pneumococcal polysaccharide vaccine, 23 valent Mavis Santiago MD Work Phone: [facility] 04-18-2015 influenza virus vaccine, split virus (incl. purified surface antigen) Kvng Melgar Other [facility] Other 04-18-2015 influenza virus vaccine, unspecified formulation DO Kvng Melgar Work Phone: [facility] 04-18-2015 pneumococcal conjuga te vaccine, 13 valent Kvng Melgar Other [facility] 05-21-2014 influenza, injectabl e, quadrivalent, contains preservative Adebayo Pan Other [facility] 04-26-2014 tetanus and diphther ia toxoids, adsorbed, preservative free, for adult use (5 Lf of tetanus toxoid and 2 Lf of diphtheria toxoid) Kvng Melgar Other [facility] 05-09-2013 pneumococcal polysaccharide vaccine, 23 valent Kvng Melgar Other [facility] 05-09-2013 tetanus and diphther ia toxoids, adsorbed, preservative free, for adult use (5 Lf of tetanus toxoid and 2 Lf of diphtheria toxoid) Kvng Melgar Other [facility] Payers Date Payer Category Payer Self-pay [id number] 2014 Private Health Insurance [id number] 2003 Medicare [id number] 1959 Medicare [id number] 1959 Private Health Insurance [id number] 1938 Unknown [id number] 2.16.84 0.1.347594.3.579.2.593 1938 Unknown [id number] 2.16.84 0.1.072804.3.579.2.593 1938 Unknown [id number] 2.16.84 0.1.946059.3.579.2.593 1938 Unknown [id number] 2.16.84 0.1.085372.3.579.2.593 1938 Unknown [id number] 2.16.84 0.1.682889.3.579.2.593 1938 Unknown [id number] 2.16.84 0.1.847835.3.579.2.593 1938 Unknown [id number] 2.16.84 0.1.176896.3.579.2.593 1938 Unknown [id number] 2.16.84 0.1.360217.3.579.2.593 1938 Unknown [id number] 2.16.84 0.1.701774.3.579.2.593 1938 Unknown [id number] 2.16.84 0.1.509652.3.579.2.1259 1938 Unknown [id number] 2.16.84 0.1.272667.3.579.2.1259 1938 Unknown [id number] 2.16.84 0.1.765150.3.579.2.1259 1938 Unknown [id number] 2.16.84 0.1.918788.3.579.2.1259 1938 Unknown [id number] 2.16.84 0.1.987992.3.579.2.1259 1938 Unknown [id number] 2.16.84 0.1.324166.3.579.2.1259 1938 Unknown [id number] 2.16. 840.1.807815.3.579.2.196 Medicare [id number] Unknown [id number] 2.16.8 40.1.217376.3.579.2.531 Unknown [id number] 2.16.8 40.1.446370.3.579.2.531 Social History Date Type Detail Facility Start: 01-03-2015 End: 05-27-2023 Tobacco smoking status NHIS Ex-smoker [facility] History of tobacco use Current smoker [facility] Start: 01-03-2015 Tobacco use and exposure Smokeless tobacco non-user [facility] Start: 05-17-2022 End: 07-27-2022 Alcohol intake Ex-drinker (finding) [facility] Start: 1940 Sex Assigned At Not on file [facility] Start: 05-08-2022 End: 05-25-2022 Exposure to SARS-CoV-2 (event) Not sure [facility] Start: 07-26-2022 End: 10-28-2022 Tobacco smoking status NHIS Never smoked tobacco (finding) [facility] Start: 1940 Sex Assigned At Female F [facility] [place] Sex Assigned At Sex Assigned At Bir th [facility] Other Goals Date Patient Goal Desired Activity /State Clinical Notes 11-28-2019 to 08-10-2023 Note Date & Type Note Facility 08-10-2023 Evaluation note Encounter Date Diagnosis Assessment Notes Jul, Epigastric pain (ICD-10 - R10.13) Jul, Constipation (ICD-10 - K59.00) Oct, Nausea (ICD-10 - R11.0) Nausea [facility] Other 12-11-2023 Evaluation note* Encounter Date Diagnosis Assessment Notes Treatment Notes Treatment Clinical Notes Jun, Lumbar spondylosis (ICD-10 - M47.816) [facility] Other 11-21-2023 Evaluation note* Encounter Date Diagnosis Assessment Notes Treatment Notes Treatment Clinical Notes May, Claustrophobia (ICD-10 - F40.240) [facility] Other 11-17-2023 Evaluation note* Encounter Date Diagnosis [...] May, Other specified hypothyroidism (ICD-10 - E03.8) [facility] Other 11-10-2023 Evaluation note* Encounter Date Diagnosis Assessment Notes Treatment Notes Treatment Clinical Notes May, Lumbar spondylosis (ICD-10 - M47.816) [facility] Other 09-13-2023 Evaluation note* Encounter Date Diagnosis Assessment Notes Treatment Notes Treatment Clinical Notes Mar, Chronic superficial gastritis with bleeding (ICD-10 - K29.31) [facility] Other 08-25-2023 Evaluation note* Encounter Date Diagnosis Assessment Notes Treatment Notes Treatment Clinical Notes Feb, Allergic contact dermatitis due to plants, except food (ICD-10 - L23.7) Cool compresses, topical steroids and begin Prednisone. _update on Feb, Cellulitis of left upper extremity (ICD-10 - L03.114) Elevate and begin antibiotics, update on Tuesday [facility] Other 08-15-2023 Evaluation note* Encounter Date Diagnosis [...] exercise for 30 minutes, 3-5 times weekly. [facility] Other 08-14-2023 Evaluation note* Encounter Date Diagnosis Assessment Notes Treatment Notes Treatment Clinical Notes Feb, Lumbar spondylosis (ICD-10 - M47.816) [facility] Other 06-20-2023 Evaluation note* Encounter Date Diagnosis Assessment Notes Treatment Notes Treatment Clinical Notes Dec, Autoimmune thyroiditis (ICD-10 - E06.3) [facility] Other 05-12-2023 Evaluation note* Encounter Date Diagnosis Assessment Notes Treatment Notes Treatment Clinical Notes November, Lumbar spondylosis (ICD-10 - M47.816) [facility] Other 05-11-2023 Evaluation note* Encounter Date Diagnosis [...] E03.8) November, Lumbar spondylosis (ICD-10 - M47.816) [facility] NotePROCEDURE: XR HIP LT 2 3V [...] Electronically authenticated by: ANTHONY GUIDRY Date: 2022-10-20 15:40[facility]04-04-2023 Evaluation note* Encounter Date Diagnosis Assessment Notes [...] mammogram for breast cancer (ICD-10 - Z12.31) [facility] Other 01-17-2023 NoteHNO ID: [id number] Author: Mavis Santiago MD Service: ? Author Type: Physician Type: Progress Notes Filed: 07/27/2022 2:56 PM Note Text: PATIENT NAME: Tangela Trinidad CLINIC NO.: [id number] ATTENDING PHYSICIAN: Mavis Santiago MD DATE OF [...] Status 07/27/2022 18.0 (H) (more content not included)...[facility] 07-27-2022 History of Present illness Narrative* Mavis Santiago MD - 07/27/2022 2:48 PM EST PATIENT NAME: Tangela Trinidad [facility] NO.: [id number] ATTENDING PHYSICIAN: Mavis Santiago MD DATE OF [...] 07/27/2022 3.25 1.00 - 4.00 k/uL Final [place]% Date Value Ref Range Status 07/27/2022 14.0 % Final Abs [place] Date Value Ref Range Status 07/27/2022 1.25 [...] do not hesitate to contact me at [phone]. Mavis Santiago MD Hematology/Medical Oncology [facility]avedra spent a total of 20 minutes on the date of the service which included preparing to see the patient, [id number]-[id number] patient care, completing clinical documentation, obtaining and/or reviewing separately obtained history, performing a medically appropriate examination, counseling and educating the pat ient/family/caregiver, and ordering medications, tests, or procedures. CC: Kvng Melgar DO documented in this encounterOur [facility] Evaluation note* Encounter Date Diagnosis Assessment Notes Treatment Notes Treatment Clinical Notes Jul, Acute gastric ulcer without hemorrhage or perforation (ICD-10 - K25.3) [facility] Other [id number] [facility]* Encounter Date Diagnosis Assessment [...] Healty diet, keep active, consistent sleep routine [facility] Other 11-23-2022 NoteHNO ID: [id number] Author: MONY Mart Service: ? Author Type: Laster Hand Type: Progress Notes Filed: 06/02/2022 3:17 PM Note Text: Patient appears on the First Time Treatment List for a non-oncology treatment. No psychosocial assessment is indicated. KAYLEY [facility]11-23-2022 History of Present illness Narrative* MONY Mart - 06/02/2022 3:16 PM EST Patient appears on the First Time Treatment List for a non-oncology treatment. No psychosocial assessment is indicated. HANNAH Mart documented in this encounterOur [facility] Miscellaneous Notes* Telephone Encounter - Mohit Funes Teresita [facility] - 05/25/2022 3:32 PM EST 1st report of treatment-non oncology regimen (Monoferric) Patient holds Medicare coverage. No FA available at this time. documented in this encounterOur [facility]11-08-2022 NoteHNO ID: [id number] Author: Mavis Santiago MD Service: ? Author Type: Physician Type: Progress Notes Filed: 05/18/2022 4:08 PM Note Text: PATIENT NAME: Tangela Trinidad CLINIC NO.: [id number] ATTENDING PHYSICIAN: Mavis Santiago MD DATE OF [...] Final Lymph% Date Va (more content not included)...[facility]11-08-2022 History of Present illness Narrative* Mavis Santiago MD - 05/18/2022 3:51 PM EST PATIENT NAME: Tangela L [facility] NO.: [id number] ATTENDING PHYSICIAN: Mavis Santiago MD DATE OF [...] 05/11/2018 2.74 1.00 - 4.00 k/uL Final [place]% Date Value Ref Range Status 05/11/2018 12.1 % Final Abs [place] Date Value Ref Range Status 05/11/2018 1.12 [...] do not hesitate to contact me at [phone]. Mavis Santiago MD Hematology/Medical Oncology [facility] spent a total of 30 minutes on the date of the service which included preparing to see the patient, fzdf-ob-vtxu patient care, completing clinical documentation, obtaining and/or reviewing separately obtained history, performing a medically appropriate examination, counseling and educating the pat ient/family/caregiver, and ordering medications, tests, or procedures. Medical Decision Making: Medical Decision Making Level: 1 - N/A CC: Kvng Melgar DO documented in this encounterOur Lady Of [facility]11-[facility]-2020 Progress note Author Nicho Salcedo [facility] May 29, 2020 11:30am Note Date/Time May 29, 2020 11:29am [place] [address] Hem/Onc Follow Up Note - OP Signed Patient: Tangela Trinidad MR#: [id number] : 1940 Acct:[id number] Age/Sex: 80 / F Type: REG RCR [...] Rash Penicillins Allergy (Verified 11/28/19 10:23) Hives Bvbcsnk-Kuj-Rtp Reductase Inhibitor Allergy (Verified 11/28/19 10:23) Unknown [...] Neut % (Auto) 50.8,Lymph % (Auto) 30.1, [place] % (Auto) 14.9, Eos % (Auto) 3.3, Baso % (Auto) 0.9, Neut # (Auto) 4.4, Lymph # (Auto) 2.6, [place] # (Auto) 1.3 H, Eos # (Auto) [...] for coordination of care (as documented) and iesv-bq-sohv counseling of patient and/or family. Dictated By: Nicho Salcedo MD DD/ Signed By: <Electronically signed by MD Nicho Salcedo> 05/29/20 1130 [facility] Work Phone: [phone] 721-242305-20-2020 Progress note Author Nicho Salcedo [facility] November 28, 2019 12:52pm Note Date/Time November 28, 2019 12:50 pm [facility] [place] [address] Hem/Onc Follow Up Note - OP Signed Patient: Tangela Trinidad MR#: [id number] : 1940 Acct:[id number] Age/Sex: 79 / F Type: REG RCR [...] Rash Penicillins Allergy (Verified 11/28/19 10:23) Hives Ewgomhi-Myn-Mif Reductase Inhibitor Allergy (Verified 11/28/19 10:23) Unknown [...] Neut % (Auto) 49.9,Lymph % (Auto) 27.3, [place] % (Auto) 15.1, Eos % (Auto) 6.5, Baso % (Auto) 1.2, Neut # (Auto) 4.3, Lymph # (Auto) 2.4, [place] # (Auto) 1.3 H, Eos # (Auto) [...] for coordination of care (as documented) and wgxt-uk-rqbw counseling of patient and/or family. Dictated By: Nicho Salcedo MD DD/ 1249 Signed By: <Electronically signed by MD Nicho Salcedo> 11/28/19 1252 [facility] Work Phone: Evaluation note* Diagnosis Iron deficiency- Primary Iron deficiency anemia, unspecified documented [facility] Diagnosis Iron deficiency anemia, unspecified iron deficiency anemia type- Primary Iron deficiency Iron deficiency anemia, unspecified documented in this encounter [facility]* Diagnosis Iron deficiency- Primary Iron deficiency anemia, unspecified documented in this encounter [facility] noteNo assessment information availableSelect [facility] Work Phone: Evaluation noteNo InformationNort [facility] Other Evaluation note* Diagnosis Onset Date Resolution Status Age-related osteoporosis wit hout current pathological fracture acute Ascending aorta dilatation a cute Chronic venous insufficiency acute Gastroesophageal reflux dise ase 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 hemorrhage acute Hip pain, right acute Hypercholesterolemia acute Knee pain, right acute Paralytic strabismus, 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 Primary hypertension acute Stage 3a chronic kidney disease acute Medicare annual wellness visit, subsequent noneactive [facility] Work Phone: History and physical note Author Jeyson Diaz [facility] July 26, 2022 8:09am Note Date/Time July 26, 2022 8 :09am [facility] [address] [place] [address] Gastroenterology H&P Signed Patient: Tangela Trinidad MR#: [id number] : 1940 Acct:[id number] Age/Sex: 82 / F Adm Date: 3 Loc: Room: Type: [facility] Attending Dr: Jeyson Diaz MD Copies to: [...] <Electronically signed by Jeyson Diaz MD> 07/26/22808 [facility] Work Phone: History and physical note Author Jeyson Diaz [facility] October 28, 2022 1:13pm Note Date/Time October 28, 2022 1:1 3pm [facility] [address] [place] [address] Gastroenterology H&P Signed Patient: Tangela Trinidad MR#: [id number] : 1940 Acct:[id number] Age/Sex: 82 / F Adm Date: 3 Loc: Room: Type: [facility] Attending Dr: Jeyson Diaz MD Copies to: [...] signed by Jeyson Diaz MD> 10/28/22 1313 [facility] Work Phone: Hiszppl general Narrative - Reported* Type Description Date Medical History Cervical spondylosis Medical History Vitamin D deficiency Medical History Hyponatremia Medical History [place] Medical History Fatigue Medical History Depression screening Medical History Encounter for screening breast e xamination Medical History Leukocytosis Medical History 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 Medical History Essential hypertension Medical History [...] History colonoscopy 07/26/22 Hospitalization History see above [facility] Other Hisisep general Narrative - Reported* Type Description Date Medical History Cervical spondylosis Medical History Vitamin D deficiency Medical History Hyponatremia Medical History [place] Medical History Fatigue Medical History Depression screening Medical History Encounter for screening breast e xamination Medical History Leukocytosis Medical History 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 Medical History Essential hypertension Medical History [...] w/ biopsy 10/2022 Hospitalization History see above [facility] Other History general Narrative - Reported* Type Description Date Medical History Cervical spondylosis Medical History Vitamin D deficiency Medical History Hyponatremia Medical History [place] Medical History Fatigue Medical History Depression screening Medical History Encounter for screening breast e xamination Medical History Leukocytosis Medical History Chronic nobi-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 for [...] NOT operate machinery such as power tools, [employer] mowers, snow blowers, sewing machines, etc. for [...] -Follow up with PCP. - Office number [phone]. [facility] Work Phone: Hospital Discharge instructions [...] NOT operate machinery such as power tools, [employer] mowers, snow blowers, sewing machines, etc. for [...] problems. -Follow up with PCP. -Office number [phone]. [facility] Work Phone: Hospital Discharge instructions Additional Instructions [...] problems. -Follow up with PCP. -Office number [phone]. [facility] Work Phone: Summary Purpose Family History No Family History Records Found Relationship Condition Age at Onset Recorded Date/T luna Not Specified Heart disease Unknown father Heart disease Unknown sister Diabetes mellitus Unknown sister Malignant neoplasm of colon Unknown sister Malignant neoplasm of lung Unknown brother Malignant melanoma Unknown Relationship Condition Age at Onset Recorded Date/T luna mother Heart disease Unknown father Heart disease Unknown sister Diabetes mellitus Unknown sister Malignant neoplasm of colon Unknown sister Malignant neoplasm of lung Unknown brother Malignant melanoma Unknown Unknown mother Unknown Heart disease Unknown Advance Directives No Advanced Directives Records Found Advance Directive Response Recorded Date/ Time Advance [...] Chief Complaint Gastric Ulcer Chief Complaint R11.0 Chief Complaint 4 month follow up g70.00 h02.402 h49.22 Reason for Visit 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 without current pathological fracture Ascending aorta dilatation Chronic venous insufficiency Gastroesophageal reflux disease 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 hemorrhage Hip pain, right Hypercholesterolemia Knee pain, right Paralytic strabismus, 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 DATE CREATED AUTHOR AUTHOR'S ORGANIZ ATION 03/25/2024 [facility] DATE CREATED AUTHOR AUTHOR'S ORGANIZ ATION 03/31/2024 [facility] DATE CREATED AUTHOR AUTHOR'S ORGANIZ ATION 04/09/2024 [facility] Source Comments (unrecognize d section and content) In the event this informatio n is protected by the Federal Confidentiality of Alcohol and Drug Abuse Patient Records regulations: The Federal rules restrict any use of the information to criminally investigate or prosecute any alcohol or drug abuse patient.[facility] the event this information is protected by the Federal Confidentiality of Alcohol and Drug Abuse Patient Records regulations: The Federal rules restrict any use of the information to criminally investigate or prosecute any alcohol or drug abuse patient.[facility] the event this information is protected by the Federal Confidentiality of Alcohol and Drug Abuse Patient Records regulations: The Federal rules restrict any use of the information to criminally investigate or prosecute any alcohol or drug abuse patient.[facility] AndersonIn the event this information is protected by the Federal Confidentiality of Alcohol and Drug Abuse Patient Records regulations: The Federal rules restrict any use of the information to criminally investigate or prosecute any alcohol or drug abuse patient.[facility] AndersonIn the event this information is protected by the Federal Confidentiality of Alcohol and Drug Abuse Patient Records regulations: The Federal rules restrict any use of the information to criminally investigate or prosecute any alcohol or drug abuse patient.[facility] AndersonIn the event this information is protected by the Federal Confidentiality of Alcohol and Drug Abuse Patient Records regulations: The Federal rules restrict any use of the information to criminally investigate or prosecute any alcohol or drug abuse patient.[facility] [place] Care Teams (unrecognized sec tion and content) Team Status: Active Member Role Status Dates Kvng Melgar DO Primary Care Provider Active Team Status: Inactive Member Role Status Dates Kvng Melgar DO Primary Care Provider Active Jeyson Diaz MD Attending Provider Active Electronic Page Makeup System Operator Relationship Specialty Start Date End Date Kvng Melgar DO PCP - General Internal Medicine 11/14/14 Electronic Page Makeup System Operator Relationship Specialty Start Date End Date Kvng Melgar DO PCP - General Internal Medicine 11/14/14 Electronic Page Makeup System Operator Relationship Specialty Start Date End Date Kvng Melgar DO PCP - General Internal Medicine 11/14/14 Electronic Page Makeup System Operator Relationship Specialty Start Date End Date Kvng Melgar DO PCP - General Internal Medicine 11/14/14 Electronic Page Makeup System Operator Relationship Specialty Start Date End Date Kvng Melgar DO PCP - General Internal Medicine 11/14/14 Electronic Page Makeup System Operator Relationship Specialty Start Date End Date Kvng Melgar DO PCP - General Internal Medicine 11/14/14 Team Status: Inactive Member Role Status Dates Kvng Melgar DO Primary Care Provide r, Attending Provider Active Start: January 02, 2024 End: January 02, 2024 Team Status: Inactive Member Role Status Dates Kvng Melgar DO Primary Care Provider Active Start: March 16, 2024 End: March 16, 2024 Lorelei Hurtado DO Attending Provider Active Start: March 16, 2024 End: March 16, 2024 Reason for Visit (unrecogniz ed section and content) Reason Comments Anemia Transition of care. Ref back by Dr. Melgar Reason Comments Benefits Investigation Specialty Diagnoses / Procedures Referred By Jane t Referred To Contact Diagnoses Iron deficiency anemia, unspecified iron deficiency anemia type Iron deficiency Mavis Santiago MD [address] [place] [id number] Damon Treat [address] [place] [address] Referral ID Status Reason Start Date Expiration Date V isits Requested Visits Authorized [id number] Authorized 05/18/2022 08/16/2022 99 99 Reason Comments [...] BE BASED ON THE PRIMARY CLINICAL RECORDS. [employer] provides no warranty or guarantee of the accuracy or completeness of information in this document.
[2024-04-09 10:07] VITALS: BP 130/79; PULSE 65; TEMP 36.4; O2SAT 97
[2024-04-09 10:36] VITALS: BP 141/67; PULSE 65; O2SAT 95
[2024-04-09] MEDS: 0.9 % SODIUM CHLORIDE 10 ML SYRINGE - SALINE FLUSH INJ (10:41)
[2024-04-09] MEDS: BUPIVACAINE HCL 0.25% PF 25 MG/10 ML VIAL 2 ML INJ (10:41)
[2024-04-09] MEDS: DEXAMETHASONE SOD PHOS 10 MG/ML VIAL INJ (10:42)
[2024-04-09] MEDS: IOHEXOL 240 MG/ML - 10 ML VIAL INJ (10:42)
--- NOTE | 2024-04-09 10:42 | P.ON_ITS ---
Date of procedure: 04/09/24 Pre-op diagnosis: Pain due to lumbar stenosis with neurogenic claudication Post-op diagnosis: same as pre-op Procedure: Procedure: Right L3-4, L4-5 transforaminal epidural steroid injection Medication: Bupivacaine 0.25% 2cc, lidocaine 2% 1cc, kenalog 80mg The patient was seen and examined in the preoperative holding area.? Informed consent was obtained and placed on the chart.? Patient was brought to the medical procedure unit and placed in the prone position where a timeout was completed verifying the correct patient, procedure site, position, and planned special equipment using sterile aseptic technique.? Under direct fluoroscopic visualization a 25-gauge Quincke tipped spinal needle was advanced to the designated neural foramen where contrast dye was injected to show adequate spread.? The needle was inserted at level right L3-4. There was no evidence of vascular or adverse uptake.? Epidural spread was appreciated.? The above- mentioned injectate was then placed in a 1.5 mL aliquot preceded by negative aspiration.? The needle was removed. The needle was inserted and the procedure repeated at level right L4-5.? The surgery site was covered.? Patient was taken to the postprocedural recovery area and monitored for an appropriate length of time before found suitable for discharge in the accompaniment of a responsible adult. Anesthesia: Local Surgeon: Charlotte Levi Pathology: none sent Condition: stable Disposition: no change
[2024-04-09 10:44] VITALS: BP 144/70; PULSE 66; O2SAT 93
== END 2024-04-09 11:05 | disposition home or self-care (01) ==
PROVIDERS: PCP Internal Medicine; Visit Provider Anesthesiology
DX: M48.062 Spinal stenosis, lumbar region with neurogenic claudication (principal)
CPT/HCPCS: 64483; 64484; J0665; J1100; Q9966

== ENCOUNTER 2024-04-19 11:08 | Outpatient (OUT) | payer MEDICARE, OTHER, SELFPAY ==
--- OUTSIDE RECORDS SUMMARY | 2024-04-19 11:26 | XMS_ITS | CCD ---
Author Organization [facility] Care Team Providers Care Casting Machine Operator Automatic Name Role Phone Doctor, No Unavailable Unavailable Doctor, No Unavailable Unavailable Donnell Barton Unavailable Unavailable Donnell Barton Unavailable Unavailable Kvng Melgar DO Primary Care Provider Kvng Melgar DO Primary Care Provider DO Kvng Melgar Primary Care Provider [phone] MD Jeyson Diaz Attending Provider KVNG MELGAR Primary Care Unavailable MAVIS SANTIAGO Referring Unavailable MAVIS SANTIAGO Attending Unavailable KVNG MELGAR Primary Care Unavailable KVNG MELGAR Primary Care Unavailable MAVIS SANTIAGO Attending Unavailable KVNG MELGAR Referring Unavailable KVNG MELGAR Primary Care Unavailable Adebayo Pan Unavailable Kvng Melgar Unavailable Jeyson Diaz Unavailable Sadiq Beckham Unavailable DO Kvng Melgar Primary Care Provider [phone] MD Jeyson Diaz Attending Provider ERMELINDA, DR CALDERON Primary Care Unavailable ERMELINDA, [...] Unavailable Ball, DO Calderon Primary Care Provider [phone] MD Jeyson Diaz Attending Provider [phone] Ermelinda, DO Calderon Primary Care Provider MD Joe Imprice Attending Provider [phone] Ermelinda, DO Calderon Primary Care Provider DO Lorelei Hurtado Attending Provider Kvng Melgar Primary Care Unavailable Lorelei Hurtado Admitting Unavailab Lorelei Wetzel Attending Unavailab le Ermelinda, Kvng Primary Care Unavailable Asaad, Imad Admitting Unavailable Asaad, Imad Attending Unavailable TED GILMORE Attending Unavailable TED GILMORE Referring Unavailable LORELEI HURTADO Attending Unavailable LORELEI HURTADO Attending Unavailable NICHO MARC Attending Unavailable LORELEI HURTADO Attending Unavailable Gurmeet REDD, Charlotte Costa Attending Unavailable Gurmeet REDD, Charlotte Costa Attending Unavailable Allergies Allergy Classification Reported Allergen(s) Allergy Type Date of Onset Reaction(s) Facility (8 sources) Penicillins; Translations: [PENICILLINS] Drug allergy (disorder) 11-16-19 15 AOF, Hives, Hives, PENICILLINS [facility] Repository (8 sources) Sulfonamides (Antibiotic); Translations: [SULFA (SULFONAMIDE ANTIBIOTICS)] Drug allergy (disorder) 11-16-19 15 AOF, Hives, Hives, Comment:2005 [facility] Repository (7 sources) Gfylgue-Qlr-Sva Reductase Inhibitor Drug allergy (disorder) 01-06-20 18 Unknown Reaction, Unknown Reaction, muscle aches [facility] Repository (20 sources) Cephalosporins (Antibiotic); Translations: [CEPHALOSPORINS] Drug Allergy 10-24-19 15 Unknown [facility] (7 sources) HMG-CoA reductase inhibitor; Translations: [GJLZXHY-XNU-HKU REDUCTASE INHIBITORS] Drug Allergy 01-06-20 18 Unknown [facility] (7 sources) Nitrofurantoin; Translations: [NITROFURANTOIN MACROCRYSTAL] Drug Allergy 10-12-19 19 Rash, Itching [facility] (6 sources) Penicillins Drug Allergy 11-16-19 15 [facility] (20 sources) Povidone-Iodine; Translations: [POVIDONE-IODINE] Drug Allergy 06-21-20 19 Unknown [facility] (20 sources) Sulfonamides (Antibiotic) Drug Allergy 11-16-19 15 [facility] (20 sources) Vancomycin; Translations: [VANCOMYCIN] Drug Allergy 10-12-19 19 Rash, Itching [facility] (20 sources) Nitrofurantoin; Translations: [nitrofurantoin] Drug Allergy 12-02-19 21 rash [facility] (20 sources) Penicillin G Benzathine Drug allergy rash [facility] Other (20 sources) Sulfacetamide / Sulfur Drug Allergy rash [facility] Other (20 sources) Statins Depletion Drug allergy muscle aches [facility] Other (1 source) black walnut pollen extract Drug Allergy 05-17-20 14 [facility] Repository (1 source) Cephalosporins (Antibiotic) Drug allergy (disorder) 10-24-19 15 [facility] (2 sources) Nitrofurantoin Drug Allergy 10-24-19 15 rash [facility] (1 source) Penicillins Drug allergy (disorder) 01-24-20 13 [facility] (2 sources) Povidone-Iodine Drug Allergy 06-21-20 19 Unknown [facility] (1 source) Sulfonamides (Antibiotic) Drug allergy (disorder) 01-31-20 13 [facility] (1 source) Vancomycin Drug Allergy 10-24-19 15 [facility] (20 sources) Statins Depletion *DIETARY PRODUCTS/DIETARY MANAGE Propensity to adverse reactions Unknown [facility] Other (20 sources) Substance with penicillin structure and antibacterial mechanism of action (substance) Drug allergy 04-30-20 06 PENICILLINS [facility] Other (20 sources) Sulf-10 Drug allergy 12-01-19 06 SULFA 10 [facility] Other (1 source) Vancomycin Drug Allergy rash [facility] Other (1 source) Cephalosporins (Antibiotic) Drug allergy (disorder) 03-16-20 [facility] Repository (1 source) Povidone-Iodine Drug Allergy 03-16-20 [facility] (1 source) Vancomycin Drug Allergy 03-16-20 [facility] Medications Current Medications Medication [...] by mouth every four to six hours Wsqiggb-Bnpjbgivnlsaf-Nyseseos (Excedrin Migraine) 250-250-65 mg Tablet Active 1 TAB PO EVERY 4-6 HOURS July 26, 2022 1:00am take 2 tablets by mouth every si x hours Excedrin Migraine 250-250-65 MG 2 tablets as needed Orally every 6 hrs Active [id number] actuat albuterol 0.09 mg/actuat metered dose [...] Start: 12-28-2017 take 1 capsule by mo [facility] every twelve hours Doxycycline Hyclate 100 MG [...] sources) Multivitamin Act kerri Multivitamin Not -Taking [place] 3 1200 MG (20 sources) take 1 capsule by mo ut once daily [place] 3 1200 MG 1 capsule Orally Once a day Active take 1 capsule by mouth once taniya ly [place] 3 1200 MG 1 capsule Orally Once [...] needed Orally every 6 hrs Not-Taking Vit C,O-Gr-Zmikb-Lutein-Zeax an (Preservision Areds-2) 250-90-40-1 mg Capsule (5 sources) Start: 07-26-2022 Vit C,X-Gj-Qjhxo-Lutein-Zeax an (Preservision Areds-2) 250-90-40-1 mg Capsule Active 1 TAB PO Twice daily July 26, 2022 1:00am Start: 07-26-2022 Vit C,E-Zn-Media Production Support Manager qp-Qxovzs-Uuwmgu (Preservision Areds-2) 250-90-40-1 mg Capsule Active 1 [...] Comment on above: Take by mouth. CA/D3/MAG OX/ZINC/PLASMA PROCESSOR/MEREDITH/ BOR (CALCIUM 600+D3 PLUS ORAL) (6 sources) take 1200 mg by mouth once daily CA/D3/MAG OX/ZINC/PLASMA PROCESSOR/MEREDITH/B OR (CALCIUM 600+D3 PLUS ORAL) Take 1,200 mg by mouth once daily. 0 Active Comment on above: Take 1,200 mg by george once daily. celecoxib 100 mg oral capsule [...] mg by mouth twice daily. 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] Unclassified (3 sources) LOW BACK PAIN, [...] exposure to COVID-19] Unclassified (1 source) Chronic yfsk-GDHZB-22 syndrome; Translations: [Chronic oecy-FTGTK-32 syndrome] Viral infection (4 sources) COVID-19; Translations: [...] 05-22-2020 Episodic Other aftercare (1 source) Other care home (current) drug therapy; Translations: [OTH SNF CURRENT DRUG THERAPY] Onset: 01-29-2022 Episodic Other [...] Interpretation Reference Range Facility CT chest w [facility] 03-16-2024 CT chest w [facility] [place] [address] CT Scan Report Signed Patient: Tangela Trinidad MR#: [id number] : 1940 Acct:[id number] Age/Sex: 84 / F ADM Date: 03/16/24 Loc: CT Room: Type: [facility] Attending Dr: Lorelei Hurtado [...] mass. Impression dictated by: Bert Viveros Jr., D.O.03/16/2024 2:09 PM Dictation Location: [place] [address] Transcribed By: [facility] 03/16/24 1409 Dictated By: Bert Viveros Jr, DO 03/16/24 1403 Signed By: 03/16/24 1409 Normal [facility] Creatinineon 03-16-2024 GFR/1.73 sq M.predicted MDRD (S/P/Bld) [Vol rate/Area] mL/min/{1.73_m2} Normal [facility] Comment on above: Result Comment: PERF ORMED BY: [place] [address] PATHOLOGIST RECEIVABLES SPECIALIST SPEEDY GRAY M.D. Performed By: #### C REAT #### [facility] [address] [place] [address] Creatinine [Mass/volume] in Serum or PlasmaOrdered By: Lorelei Hurtado on 03-16-2024 Creatinine [Mass/Vol] 0.83 mg/dL Normal 0.60-1.20 [facility] Comment on above: Performed By: #### C REAT #### [facility] [address] [place] [address] No Panel InformationOrdered By: Lorelei Hurtado on 03-16-2024 Estimated GFR (CKD-EPI) > 60.0 mL/Min [facility] Creatinine Clearance (Chem N/A [facility] NM gastric emptying studyon 07-25-2023 NM gastric emptying study [facility] Main [place] [id number] Nuclear Medicine Report Signed Patient: Tangela Trinidad MR#: [id number] : 1940 Acct:[id number] Age/Sex: 83 / F ADM Date: 07/25/23 Loc: [place] Room: Type: [facility] Attending Dr: Jeyson Diaz MD Copies to: MD Gaston Li Jeffrey S DO Ordering Provider: Jeyson Diaz MD Date of Service: 07/25/23 NM/NM gastric emptying study: Nausea Nuclear medicine gastric emptying examination TECHNIQUE: 1.1mCi of technetium 99m sulfur colloid in oatmeal. COMPARISON: None HISTORY: Nausea. Stomach ulcers last year. The one half emptying time of the stomach is 25minutes. NM/MS gastric emptying study IMPRESSION: Adequate gastric emptying Impression dictated by: Matt Feldman M.D.07/25/2023 9:40 AM Dictation Location: [place] [address] Transcribed By: [facility] 07/25/23 0940 Dictated By: Matt Feldman DO 07/25/23 0934 Signed By: 07/25/23 0940 Normal [facility] MG MAMM SCREEN 3D ROXANA CADon 10-20-2022 MG MAMM SCREEN 3D ROXANA CAD Patient: TANGELA TRINIDAD. Exam Date: 10/20/2022 : 1940 Gender:F Ordering : DR KVNG MELGAR D.O. Admission #: [id number] Family : Order #: [id number] CLICK HERE TO VIEW EXAM RADIOLOGY REPORT [...] melonoma cancer at age 64. LOCATION: [facility] BREAST COMPOSITION: Scattered areas fibroglandular density. [...] Guidry M.D. on 10/20/2022 at 13:19 Normal [facility] CBC W Auto Differential pane l (Bld)on 07-27-2022 Basophils (Bld) [#/Vol] 0.08 10*3/uL Normal <0.11 [facility] Comment on above: Order Comment: Speci men Type: BLOOD SPECIMEN [facility] Address: [address] [address] Performed By: #### 1 4196-0, 05203-6 #### [facility] CLIA [id number] [address] [place] [address] Basophils/100 WBC (Bld) 0.9 % Normal [facility] Comment on above: Order Comment: Speci men Type: BLOOD SPECIMEN [facility] Address: [address] [place] [address] Performed By: #### 1 4196-0, 33139-1 #### [facility] CLIA [id number] [address] [place] [address] Differential cell count method Nom (Bld) Auto Normal [facility] Comment on above: Order Comment: Speci men Type: BLOOD SPECIMEN [facility] Address: [address] [address] Performed By: #### 1 4196-0, 18237-9 #### [facility] CLIA [id number] [address] [place] [address] Eosinophils (Bld) [#/Vol] 0.52 10*3/uL High <0.46 [facility] Comment on above: Order Comment: Speci men Type: BLOOD SPECIMEN [facility] Address: [address] [address] Performed By: #### 1 4196-0, 72756-7 #### [facility] CLIA [id number] [address] [place] [address] Eosinophils/100 WBC (Bld) 5.8 % Normal [facility] Comment on above: Order Comment: Speci men Type: BLOOD SPECIMEN [facility] Address: [address] [address] Performed By: #### 1 4196-0, 02262-3 #### [facility] CLIA [id number] [address] [place] [address] Erythrocyte distribution width (RBC) [Ratio] 18.0 % High 11.5-15.0 [facility] Comment on above: Order Comment: Speci men Type: BLOOD SPECIMEN [facility] Address: [address] [place] [address] Performed By: #### 1 4196-0, 08324-6 #### [facility] CLIA [id number] [address] [place] [address] 06812 Hematocrit (Bld) [Volume fraction] 39.6 % Normal 36.0-46.0 [facility] Comment on above: Order Comment: Speci men Type: BLOOD SPECIMEN [facility] Address: [address] [address] Performed By: #### 1 4196-0, 22859-7 #### [facility] CLIA [id number] [address] [place] [address]805 Hemoglobin (Bld) [Mass/Vol] 13.0 g/dL Normal 11.5-15.5 [facility] Comment on above: Order Comment: Speci men Type: BLOOD SPECIMEN [facility] Address: [address] [place] [address] Performed By: #### 1 4196-0, 23418-6 #### [facility] CLIA [id number] [address] [place] [address]69[address] Immature granulocytes (Bld) [#/Vol] 0.04 10*3/uL Normal <0.10 [facility] Comment on above: Order Comment: Speci men Type: BLOOD SPECIMEN [facility] Address: [address] [address] Performed By: #### 1 4196-0, 26085-2 #### [facility] CLIA [id number] [address] [place] [address] Immature granulocytes/100 WBC (Bld) 0.4 % Normal [facility] Comment on above: Order Comment: Speci men Type: BLOOD SPECIMEN [facility] Address: [address] [address] Performed By: #### 1 4196-0, 75415-9 #### [facility] CLIA [id number] [address] [place] [address] 694[address] Lymphocytes (Bld) [#/Vol] 3.25 10*3/uL Normal 1.00-4.00 [facility] Comment on above: Order Comment: Speci men Type: BLOOD SPECIMEN [facility] Address: [address] [address] Performed By: #### 1 4196-0, 54403-9 #### [facility] CLIA [id number] [address] [place] [address] 97939 Lymphocytes/100 WBC (Bld) 36.3 % Normal [facility] Comment on above: Order Comment: Speci men Type: BLOOD SPECIMEN [facility] Address: [address] [address] Performed By: #### 1 4196-0, 71908-0 #### [facility] CLIA [id number] [address] [place] [address] 35996 MCH (RBC) [Entitic mass] 28.3 pg Normal 26.0-34.0 [facility] Comment on above: Order Comment: Speci men Type: BLOOD SPECIMEN [facility] Address: [address] [place] [address] Performed By: #### 1 4196-0, 30620-3 #### [facility] CLIA [id number] [address] [place] [address] 31057 MCHC (RBC) [Mass/Vol] 32.8 g/dL Normal 30.5-36.0 [facility] Comment on above: Order Comment: Speci men Type: BLOOD SPECIMEN [facility] Address: [address] [place] [address] Performed By: #### 1 4196-0, 18441-8 #### [facility] CLIA [id number] [address] [place] [address] 88068 MCV (RBC) [Entitic vol] 86.1 fL Normal 80.0-100.0 [facility] Comment on above: Order Comment: Speci men Type: BLOOD SPECIMEN [facility] Address: [address] [place] [address] Performed By: #### 1 4196-0, 94887-3 #### [facility] CLIA [id number] [address] [place] [address] 88209 Monocytes (Bld) [#/Vol] 1.25 10*3/uL High <0.87 [facility] Comment on above: Order Comment: Speci men Type: BLOOD SPECIMEN [facility] Address: [address] [place] [address] Performed By: #### 1 4196-0, 79542-7 #### [facility] CLIA [id number] [address] [place] [address] 32797 Monocytes/100 WBC (Bld) 14.0 % Normal [facility] Comment on above: Order Comment: Speci men Type: BLOOD SPECIMEN [facility] Address: [address] [address] Performed By: #### 1 4196-0, 37352-9 #### [facility] CLIA [id number] [address] [place] [address] 28456 Neutrophils (Bld) [#/Vol] 3.81 10*3/uL Normal 1.45-7.50 [facility] Comment on above: Order Comment: Speci men Type: BLOOD SPECIMEN [facility] Address: [address] [address] Performed By: #### 1 4196-0, 88363-2 #### [facility] CLIA [id number] [address] [place] [address] 03405 Neutrophils/100 WBC (Bld) 42.6 % Normal [facility] Comment on above: Order Comment: Speci men Type: BLOOD SPECIMEN [facility] Address: [address] [address] Performed By: #### 1 4196-0, 32232-9 #### [facility] CLIA [id number] [address] [place] [address] 19169 Nucleated RBC (Bld) [#/Vol] 10*3/uL Normal <0.01 [facility] Comment on above: Order Comment: Speci men Type: BLOOD SPECIMEN [facility] Address: [address] [address] Performed By: #### 1 4196-0, 32268-5 #### [facility] CLIA [id number] [address] [place] [address] 69530 Nucleated RBC/100 WBC (Bld) [Ratio] 0.0 /100 WBC Normal [facility] Comment on above: Order Comment: Speci men Type: BLOOD SPECIMEN [facility] Address: [address] [address] Performed By: #### 1 4196-0, 90313-5 #### [facility] CLIA [id number] [address] [place] [address] 82967 Platelet mean volume (Bld) [Entitic vol] 9.5 fL Normal 9.0-12.7 [facility] Comment on above: Order Comment: Speci men Type: BLOOD SPECIMEN [facility] Address: [address] [place] [address] Performed By: #### 1 4196-0, 52460-0 #### [facility] CLIA [id number] [address] [place] [address] 88727 Platelets (Bld) [#/Vol] 379 10*3/uL Normal 150-400 [facility] Comment on above: Order Comment: Speci men Type: BLOOD SPECIMEN [facility] Address: [address] [place] [address] Performed By: #### 1 4196-0, 69381-2 #### [facility] CLIA [id number] [address] [place] [address] 88028 RBC (Bld) [#/Vol] 4.60 10*6/uL Normal 3.90-5.20 [facility] Comment on above: Order Comment: Speci men Type: BLOOD SPECIMEN [facility] Address: [address] [place] [address] Performed By: #### 1 4196-0, 66033-1 #### [facility] CLIA [id number] [address] [place] [address] 87763 WBC (Bld) [#/Vol] 8.95 10*3/uL Normal 3.70-11.00 [facility] Comment on above: Order Comment: Speci men Type: BLOOD SPECIMEN [facility] Address: [address] [place] [address] Performed By: #### 1 4196-0, 53022-0 #### [facility] CLIA [id number] [address] [place] [address] CNOVSPon 07-27-2022 CNOVSP Visit (SP) Office (HEMASA) TANGELA TRINIDAD ([id number]) 1940 F Date Time Provider Department 07/27/22 2:45 PM MAVIS SANTIAGO During your visit today, we recorded the following information about you: Temperature Pulse Respiration Blood pressure 98.1 degrees 64/minute 16/minute 125/72 Weight Height 66.5 kg 1.524 m Mavis Santiago MD 07/27/2022 2:56 PM Signed PATIENT NAME: Tangela Trinidad CLINIC NO.: [id number] ATTENDING PHYSICIAN: Mavis Santiago MD DATE OF [...] Range Status (more content not included)... Normal [facility] Ferritin SerPl-mCncon 2022 Ferritin [Mass/Vol] 104.0 ng/mL Normal 14.7-205.1 [facility] Comment on above: Order Comment: Dayana soliz Type: BLOOD SPECIMEN [facility] Address: [address] [place], [place] [address] Performed By: #### 5 0190-8, 2276-4 #### [facility] CLIA [id number] [address] [place] [address] [place] Iron and Iron binding capaci ty panelon 07-27-2022 Iron [Mass/Vol] 43 ug/dL Normal 41-186 [facility] Comment on above: Order Comment: Dayana soliz Type: BLOOD SPECIMEN [facility] Address: [address] [place], [place] [address] Performed By: #### 5 0190-8, 2276-4 #### [facility] CLIA [id number] [address] [place] [address] Iron binding capacity [Mass/Vol] 265 ug/dL Normal 232-386 [facility] Comment on above: Order Comment: Speci men Type: BLOOD SPECIMEN [facility] Address: [address] [place] [address] Performed By: #### 5 0190-8, 2276-4 #### [facility] CLIA [id number] [address] [place] [address] [place] Iron/TIBC [Molar ratio] 16.2 % Normal 15.0-57.0 [facility] Comment on above: Order Comment: Speci men Type: BLOOD SPECIMEN [facility] Address: [address] [place] [address] Performed By: #### 5 0190-8, 2276-4 #### [facility] CLIA [id number] [address] [place] [address] [place] Retics #on 07-27-2022 Reticulocytes (Bld) [#/Vol] 0.39162 10*3/uL Normal 0.018-0.100 [facility] Comment on above: Order Comment: Speci men Type: BLOOD SPECIMEN [facility] Address: [address] [place] [address] Performed By: #### 1 4196-0, 35073-9 #### [facility] CLIA [id number] [address] [place] [address]2979 Reticulocytes (Bld) [#/Vol]o n 07-27-2022 Reticulocytes/100 RBC (Bld) 0.9 % Normal 0.4-2.0 [facility] Comment on above: Order Comment: Speci men Type: BLOOD SPECIMEN [facility] Address: [address] [place] [address] [place] [address] Performed By: #### 1 4196-0, 32046-9 #### [facility] CLIA [id number] [address] [place] [address]86 COVID-19 SOFIAOrdered By: Brandy Diaz on 07-22-2022 SARS-CoV+SARS-CoV-2 (COVID-19) Ag IA.rapid Ql (Resp) Negative Negative [facility] Comment on above: This is a duplicate Heidi SARS Antigen (DB) result to be used for statistical tracking purpose only. No Panel InformationOrdered By: Jeyson Diaz on 07-22-2022 SARS Antigen (LFIA) [facility] CNSWon 06-02-2022 [facility] Social Work (HEMASA) TANGELA TRINIDAD ([id number]) 1940 F Date Time Provider Department 06/02/22 [...] - Hives POVIDONE-IODINE 06/21/2019 16 - Unknown ICUNJGN-CKF-SVL REDUCTASE INHIBIT*01/05/2018 16 - Unknown SULFA (SULFONAMIDE ANTIBIOTICS) 11/15/2014 4 - Hives VANCOMYCIN 10/11/2018 2 - Rash 9 - Itching Date Reviewed: 05/18/2022 Reviewed by: Lyla Gale - Fully Assessed Prescriptions as of 06/02/2022 [...] 112 mcg tablet 0.125 mcg. - CA/D3/MAG OX/ZINC/PLASMA PROCESSOR/MEREDITH/BOR (CALCIUM 600+D3 PLUS ORAL) Take 1,200 mg by mouth once daily. - atenolol (TENORMIN) 25 mg tablet Take 1 tablet by mouth once daily. 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 No FA available at this time. Allergies As of Date: 05/25/2022 Noted Allergy Reaction CEPHALOSPORINS 10/23/2014 16 - Unknown MACRODANTIN (NITROFURANTOIN MACRO*10/11/2018 2 - Rash 9 - Itching PENICILLINS 11/15/2014 4 - Hives POVIDONE-IODINE 06/21/2019 16 - Unknown ARASWTY-YDG-VHX REDUCTASE INHIBIT*01/05/2018 16 - Unknown SULFA (SULFONAMIDE [...] 112 mcg tablet 0.125 mcg. - CA/D3/MAG OX/ZINC/PLASMA PROCESSOR/MEREDITH/BOR (CALCIUM 600+D3 PLUS ORAL) Take 1,200 mg [...] Encounter Status:Closed by MOHIT SANTOS [facility]22 [facility] Office ([place]) TANGELA TRINIDAD ([id number]) 1940 F Date Time Provider Department 05/18/22 4:00 PM MAVIS SANTIAGO During your visit today, we recorded the following information about you: Temperature Pulse Respiration Blood pressure 98.1 degrees 78/minute 16/minute 122/78 Weight 68 kg Mavis Santaigo MD 05/18/2022 4:08 PM Signed PATIENT NAME: Tangela Trinidad CLINIC NO.: [id number] ATTENDING PHYSICIAN: Mavis Santiago MD DATE OF [...] Range Status (more content not included)... Normal [facility] IMMUNOFIXATION(ELISE),PROTEIN ELEC(PE),FREon 05-06-2022 Albumin [Mass/Vol] 2.9 g/dL Normal 2.9-4.4 [facility] Comment on above: Performed By: #### I FEPEFL #### [facility] [address] [place] [address] Dr. Yayo Gregg Albumin/Globulin [Mass ratio] 1.2 {ratio} Normal 0.7-1.7 [facility] Comment on above: Performed By: #### I FEPEFL #### [facility] [address] [place] [address] Dr. Yayo Gregg Vmphj-0-Yfrlluiv 0.3 g/dL Normal 0.0-0.4 [facility] Comment on above: Performed By: #### I FEPEFL #### [facility] [address] [place] [address] Dr. Yayo Gregg Zquja-4-Clmuajkt 0.7 g/dL Normal 0.4-1.0 [facility] Comment on above: Performed By: #### I FEPEFL #### [facility] [address] [place] [address] Dr. Yayo Gregg Beta Globulin 0.9 g/dL Normal 0.7-1.3 [facility] Comment on above: Performed By: #### I FEPEFL #### [facility] [address] [place] [address] Dr. Yayo Gregg Free Polvadera Lt Chains,S 39.9 mg/L Critically high 3.3-19.4 [facility] Comment on above: Performed By: #### I FEPEFL #### [facility] [address] [place] [address] Dr. Yayo Gregg Free Lambda Lt Chains,S 22.7 mg/L Normal 5.7-26.3 [facility] Comment on above: Performed By: #### I FEPEFL #### [facility] [address] [place] [address] Dr. Yayo Gregg Gamma Globulin 0.6 g/dL Normal 0.4-1.8 [facility] Comment on above: Performed By: #### I FEPEFL #### [facility] [address] [place] [address] Dr. Yayo Gregg Globulin (S) [Mass/Vol] 2.6 g/dL Normal 2.2-3.9 [facility] Comment on above: Performed By: #### I FEPEFL #### [facility] [address] [place] [address] Dr. Yayo Gregg Immunofixation Result, Serum Comment Normal [facility] Comment on above: Result Comment: No m onoclonality detected. Performed By: #### I FEPEFL #### [facility] [address] [address] [address] Yayo Gregg Immunoglobulin A, Qn, Serum 81 mg/dL Normal 64-422 [facility] Comment on above: Performed By: #### I FEPEFL #### [facility] [address] [place] [address] Dr. Yayo Gregg Immunoglobulin G, Qn, Serum 547 mg/dL Critically low 586-1602 [facility] Comment on above: Performed By: #### I FEPEFL #### [facility] [address] [place] [address] Dr. Yayo Gregg Immunoglobulin M, Qn, Serum 92 mg/dL Normal 26-217 [facility] Comment on above: Performed By: #### I FEPEFL #### [facility] [address] [place] [address] Dr. Yayo Gregg Polvadera/Lambda Ratio, S 1.76 Critically high 0.26-1.65 [facility] Comment on above: Performed By: #### I FEPEFL #### [facility] [address] [place] [address] Dr. Yayo Gregg M-Johan Not Observed Normal Not Observed [facility] Comment on above: Performed By: #### I FEPEFL #### [facility] [address] [place] [address] Dr. Yayo Gregg PDF . Normal [facility] Comment on above: Performed By: #### I FEPEFL #### [facility] [address] [place] [address] Dr. Yayo Gregg Please note: Comment Normal [facility] Comment on above: Result Comment: Prot ein electrophoresis scan will follow via computer, mail, or steward/stewardess third class delivery. Performed By: #### I FEPEFL #### [facility] [address] [place] [address] Dr. Yayo Gregg Protein [Mass/Vol] 5.5 g/dL Critically low 6.0-8.5 [facility] Comment on above: Performed By: #### I FEPEFL #### [facility] [address] [place] [address] Dr. Yayo Gregg IMMUNOGLOBULINS IGA/IGM/IGG QUANTITATIVEon 05-05-2022 Immunoglobulin A, Qn, Serum 83 mg/dL Normal 64-422 [facility] Comment on above: Performed By: #### I MMUNGL #### [facility] [address] [place] [address] Dr. Yayo Gregg Immunoglobulin G, Qn, Serum 559 mg/dL Critically low 586-1602 [facility] Comment on above: Performed By: #### I MMUNGL #### [facility] [address] [place] [address] Dr. Yayo Gregg Immunoglobulin M, Qn, Serum 93 mg/dL Normal 26-217 [facility] Comment on above: Performed By: #### I MMUNGL #### [facility] [address] [place] [address] Dr. Yayo Gregg CBC AUTO DIFFon 05-04-2022 BASO # 0.1 103/ul Normal 0.0-0.1 [facility] Comment on above: Performed By: #### I MMUNGL #### [facility] [address] [place] [address] Dr. Yayo Gregg Basophils/100 WBC (Bld) 0.9 % Normal 0.2-2.0 [facility] Comment on above: Performed By: #### I MMUNGL #### [facility] [address] [place] [address] Dr. Yayo Gregg EO # 0.7 103/ul Normal 0.0-0.7 [facility] Comment on above: Performed By: #### I MMUNGL #### [facility] [address] [place] [address] Dr. Yayo Gregg Eosinophils/100 WBC (Bld) 6.7 % Normal 0.9-7.0 [facility] Comment on above: Performed By: #### I MMUNGL #### [facility] [address] [place] [address] Dr. Yayo Gregg Erythrocyte distribution width (RBC) [Ratio] 15.6 % Critically high 11.0-15.0 [facility] Comment on above: Performed By: #### I MMUNGL #### [facility] [address] [address] [address] Yayo Gregg Hematocrit (Bld) [Volume fraction] 31.3 % Critically low 36.0-48.0 [facility] Comment on above: Performed By: #### I MMUNGL #### [facility] [address] [place] [address] Dr. Yayo Gregg Hemoglobin (Bld) [Mass/Vol] 10.0 g/dL Critically low 12.0-16.0 [facility] Comment on above: Performed By: #### I MMUNGL #### [facility] [address] [place] [address] Dr. Yayo Gregg IG # 0.04 10e3/ul Critically high 0.00-0.03 [facility] Comment on above: Performed By: #### I MMUNGL #### [facility] [address] [place] [address] Dr. Yayo Gregg IG % 0.4 % Normal 0.0-0.5 [facility] Comment on above: Performed By: #### I MMUNGL #### [facility] [address] [address] [address] Yayo Gregg LYMPH # 2.9 103/ul Normal 1.2-3.8 [facility] Comment on above: Performed By: #### I MMUNGL #### [facility] [address] [place] [address] Dr. Yayo Gregg Lymphocytes/100 WBC (Bld) 29.6 % Normal 20.5-60.0 [facility] Comment on above: Performed By: #### I MMUNGL #### [facility] [address] [place] [address] Dr. Yayo Gregg MANUAL DIFF REQ NO Normal [facility] Comment on above: Performed By: #### I MMUNGL #### [facility] [address] [place] [address] Dr. Yayo Gregg MCH (RBC) [Entitic mass] 25.7 pg Critically low 26.7-34.0 [facility] Comment on above: Performed By: #### I MMUNGL #### [facility] [address] [place] [address] Dr. Yayo Gregg MCHC (RBC) [Mass/Vol] 31.9 g/dL Normal 29.9-35.2 [facility] Comment on above: Performed By: #### I MMUNGL #### [facility] [address] [place] [address] Dr. Yayo Gregg MCV (RBC) [Entitic vol] 80.5 fL Critically low 81.0-99.0 [facility] Comment on above: Performed By: #### I MMUNGL #### [facility] [address] [place] [address] Dr. Yayo Gregg MONO # 1.4 103/ul Critically high 0.3-0.8 [facility] Comment on above: Performed By: #### I MMUNGL #### [facility] [address] [place] [address] Dr. Yayo Gregg Monocytes/100 WBC (Bld) 14.5 % Critically high 1.7-12.0 [facility] Comment on above: Performed By: #### I MMUNGL #### [facility] [address] [place] [address] Dr. Yayo Gregg NEUT # 4.7 103/ul Normal 1.4-6.5 [facility] Comment on above: Performed By: #### I MMUNGL #### [facility] [address] [place] [address] Dr. Yayo Gregg Neutrophils/100 WBC (Bld) 47.9 % Normal 43.0-75.0 [facility] Comment on above: Performed By: #### I MMUNGL #### [facility] [address] [place] [address] Dr. Yayo Gregg Platelet mean volume (Bld) [Entitic vol] 9.5 fL Normal 9.5-13.5 [facility] Comment on above: Performed By: #### I MMUNGL #### [facility] [address] [place] [address] Dr. Yayo Gregg PLT 457 103/ul Critically high 150-450 [facility] Comment on above: Performed By: #### I MMUNGL #### [facility] [address] [address] [address] Yayo Gregg RBC 3.89 106/ul Critically low 4.20-5.40 [facility] Comment on above: Performed By: #### I MMUNGL #### [facility] [address] [address] [address] Yayo Gregg WBC 9.8 103/ul Normal 4.0-11.0 [facility] Comment on above: Performed By: #### I MMUNGL #### [facility] [address] [place] [address] Dr. Yayo Gregg FERRITINon 05-04-2022 Ferritin [Mass/Vol] 20.0 ng/mL Normal 8.0-252.0 [facility] Comment on above: Performed By: #### F ERR, FETIBC #### [facility] [address] [place] [address] Dr. Yayo Gregg IRON AND TIBCon 05-04-2022 % SATURATION 5.7 % Normal [facility] Comment on above: Performed By: #### F ERR, FETIBC #### [facility] [address] [place] [address] Dr. Yayo Gregg Iron [Mass/Vol] 18.0 ug/dL Critically low 50.0-170.0 [facility] Comment on above: Performed By: #### F ERR, FETIBC #### [facility] [address] [place] [address] Dr. Yayo Gregg TIBC DIRECT 318.0 ug/dL Normal 250.0-450.0 [facility] Comment on above: Performed By: #### F ERR, FETIBC #### [facility] [address] [place] [address] Dr. Yayo Gregg PROF CHEM 8 (BAS METB)on Anion gap [Moles/Vol] 11.7 mmol/L Normal [facility] Comment on above: Performed By: #### I MMUNGL #### [facility] [address] [address] [address] Yayo Gregg Calcium [Mass/Vol] 8.1 mg/dL Critically low 8.5-10.1 [facility] Comment on above: Performed By: #### I MMUNGL #### [facility] [address] [address] [address] Yayo Gregg Chloride [Moles/Vol] 100 mmol/L Normal 98-107 [facility] Comment on above: Performed By: #### I MMUNGL #### [facility] [address] [address] [address] Yayo Gregg CO2 [Moles/Vol] 25.7 mmol/L Normal 21.0-32.0 [facility] Comment on above: Performed By: #### I MMUNGL #### [facility] [address] [place] [address] Dr. Yayo Gregg Creatinine [Mass/Vol] 1.06 mg/dL Critically high 0.55-1.02 [facility] Comment on above: Performed By: #### I MMUNGL #### [facility] [address] [place] [address] Dr. Yayo Gregg EGFR-AF TONGAN =60 Normal >=60 [facility] Comment on above: Performed By: #### I MMUNGL #### [facility] [address] [place] [address] Dr. Yayo Gregg EGFR-NON AF TONGAN 49 mL/min/1.73m2 Critically low >=60 [facility] Comment on above: Performed By: #### I MMUNGL #### [facility] [address] [place] [address] Dr. Yayo Gregg Glucose [Mass/Vol] 121 mg/dL Critically high 74-[address] [facility] Comment on above: Performed By: #### I MMUNGL #### [facility] [address] [place] [address] Dr. Yayo Gregg Potassium [Moles/Vol] 4.4 mmol/L Normal 3.5-5.1 [facility] Comment on above: Performed By: #### I MMUNGL #### [facility] [address] [place] [address] Dr. Yayo Gregg Sodium [Moles/Vol] 133 mmol/L Critically low 136-145 [facility] Comment on above: Performed By: #### I MMUNGL #### [facility] [address] [place] [address] Dr. Yayo Gregg Urea nitrogen [Mass/Vol] 16.0 mg/dL Normal 7.0-18.0 [facility] Comment on above: Performed By: #### I MMUNGL #### [facility] [address] [place] [address] Dr. Yayo Gregg Urea nitrogen/Creatinine [Mass ratio] 15.1 mg/mg Normal [facility] Comment on above: Performed By: #### I MMUNGL #### [facility] [address] [place] [address] Dr. Yayo Mckeon PROTEIN SERUMon 05-04-2022 Protein [Mass/Vol] 6.0 g/dL Critically low 6.4-8.2 [facility] Comment on above: Performed By: #### I MMUNGL #### [facility] [address] [place] [address] Dr. Yayo Gregg TSHon 05-04-2022 TSH 1.715 uIU/mL Normal 0.358-3.740 [facility] Comment on above: Performed By: #### I MMUNGL #### [facility] [address] [place] [address] Dr. Yayo Gregg CBC AUTO DIFFon 03-26-2022 BASO # 0.1 103/ul Normal 0.0-0.1 [facility] Comment on above: Performed By: #### C BC #### [facility] [address] [place] [address] Dr. Yayo Gregg Basophils/100 WBC (Bld) 1.0 % Normal 0.2-2.0 [facility] Comment on above: Performed By: #### C BC #### [facility] [address] [place] [address] Dr. Yayo Gregg EO # 0.8 103/ul Critically high 0.0-0.7 [facility] Comment on above: Performed By: #### C BC #### [facility] [address] [place] [address] Dr. Yayo Gregg Eosinophils/100 WBC (Bld) 7.6 % Critically high 0.9-7.0 [facility] Comment on above: Performed By: #### C BC #### [facility] [address] [place] [address] Dr. Yayo Gregg Erythrocyte distribution width (RBC) [Ratio] 15.1 % Critically high 11.0-15.0 [facility] Comment on above: Performed By: #### C BC #### [facility] [address] [place] [address] Dr. Yayo Gregg Hematocrit (Bld) [Volume fraction] 32.0 % Critically low 36.0-48.0 [facility] Comment on above: Performed By: #### C BC #### [facility] [address] [place] [address] Dr. Yayo Gregg Hemoglobin (Bld) [Mass/Vol] 10.4 g/dL Critically low 12.0-16.0 [facility] Comment on above: Performed By: #### C BC #### [facility] [address] [place] [address] Dr. Yayo Gregg IG # 0.05 10e3/ul Critically high 0.00-0.03 [facility] Comment on above: Performed By: #### C BC #### [facility] [address] [place] [address] Dr. Yayo Gregg IG % 0.5 % Normal 0.0-0.5 [facility] Comment on above: Performed By: #### C BC #### [facility] [address] [place] [address] Dr. Yayo Gregg LYMPH # 2.9 103/ul Normal 1.2-3.8 [facility] Comment on above: Performed By: #### C BC #### [facility] [address] [place] [address] Dr. Yayo Gregg Lymphocytes/100 WBC (Bld) 27.7 % Normal 20.5-60.0 [facility] Comment on above: Performed By: #### C BC #### [facility] [address] [place] [address] Dr. Yayo Gregg MANUAL DIFF REQ NO Normal [facility] Comment on above: Performed By: #### C BC #### [facility] [address] [place] [address] Dr. Yayo Gregg MCH (RBC) [Entitic mass] 26.5 pg Critically low 26.7-34.0 [facility] Comment on above: Performed By: #### C BC #### [facility] [address] [place] [address] Dr. Yayo Gregg MCHC (RBC) [Mass/Vol] 32.5 g/dL Normal 29.9-35.2 [facility] Comment on above: Performed By: #### C BC #### [facility] [address] [place] [address] Dr. Yayo Gregg MCV (RBC) [Entitic vol] 81.4 fL Normal 81.0-99.0 [facility] Comment on above: Performed By: #### C BC #### [facility] [address] [place] [address] Dr. Yayo Gregg MONO # 1.3 103/ul Critically high 0.3-0.8 [facility] Comment on above: Performed By: #### C BC #### [facility] [address] [place] [address] Dr. Yayo Gregg Monocytes/100 WBC (Bld) 12.5 % Critically high 1.7-12.0 [facility] Comment on above: Performed By: #### C BC #### [facility] [address] [place] [address] Dr. Yayo Gregg NEUT # 5.2 103/ul Normal 1.4-6.5 [facility] Comment on above: Performed By: #### C BC #### [facility] [address] [place] [address] Dr. Yayo Gregg Neutrophils/100 WBC (Bld) 50.7 % Normal 43.0-75.0 [facility] Comment on above: Performed By: #### C BC #### [facility] [address] [place] [address] Dr. Yayo Gregg Platelet mean volume (Bld) [Entitic vol] 9.6 fL Normal 9.5-13.5 [facility] Comment on above: Performed By: #### C BC #### [facility] [address] [place] [address] Dr. Yayo Gregg PLT 409 103/ul Normal 150-450 [facility] Comment on above: Performed By: #### C BC #### [facility] [address] [place] [address] Dr. Yayo Gregg RBC 3.93 106/ul Critically low 4.20-5.40 [facility] Comment on above: Performed By: #### C BC #### [facility] [address] [place] [address] Dr. Yayo Gregg WBC 10.3 103/ul Normal 4.0-11.0 [facility] Comment on above: Performed By: #### C BC #### [facility] [address] [place] [address] Dr. Yayo Gregg FERRITINon 03-26-2022 Ferritin [Mass/Vol] 22.0 ng/mL Normal 8.0-252.0 [facility] Comment on above: Performed By: #### I MMUNGL #### [facility] [address] [place] [address] Dr. Yayo Gregg CBC AUTO DIFFon 02-09-2022 BASO # 0.1 103/ul Normal 0.0-0.1 [facility] Comment on above: Performed By: #### C BC #### [facility] [address] [place] [address] Dr. Yayo Gregg Basophils/100 WBC (Bld) 0.7 % Normal 0.2-2.0 [facility] Comment on above: Performed By: #### C BC #### [facility] [address] [place] [address] Dr. Yayo Grgeg EO # 0.9 103/ul Critically high 0.0-0.7 [facility] Comment on above: Performed By: #### C BC #### [facility] [address] [place] [address] Dr. Yayo Gregg Eosinophils/100 WBC (Bld) 7.5 % Critically high 0.9-7.0 [facility] Comment on above: Performed By: #### C BC #### [facility] [address] [place] [address] Dr. Yayo Gregg Erythrocyte distribution width (RBC) [Ratio] 15.1 % Critically high 11.0-15.0 [facility] Comment on above: Performed By: #### C BC #### [facility] [address] [place] [address] Dr. Yayo Gregg Hematocrit (Bld) [Volume fraction] 32.5 % Critically low 36.0-48.0 [facility] Comment on above: Performed By: #### C BC #### [facility] [address] [place] [address] Dr. Yayo Gregg Hemoglobin (Bld) [Mass/Vol] 10.9 g/dL Critically low 12.0-16.0 [facility] Comment on above: Performed By: #### C BC #### [facility] [address] [place] [address] Dr. Yayo Gregg IG # 0.16 10e3/ul Critically high 0.00-0.03 [facility] Comment on above: Performed By: #### C BC #### [facility] [address] [place] [address] Dr. Yayo Gregg IG % 1.3 % Critically high 0.0-0.5 [facility] Comment on above: Performed By: #### C BC #### [facility] [address] [place] [address] Dr. Yayo Gregg LYMPH # 2.9 103/ul Normal 1.2-3.8 [facility] Comment on above: Performed By: #### C BC #### [facility] [address] [place] [address] Dr. Yayo Gregg Lymphocytes/100 WBC (Bld) 24.0 % Normal 20.5-60.0 [facility] Comment on above: Performed By: #### C BC #### [facility] [address] [place] [address] Dr. Yayo Gregg MANUAL DIFF REQ NO Normal [facility] Comment on above: Performed By: #### C BC #### [facility] [address] [place] [address] Dr. Yayo Gregg MCH (RBC) [Entitic mass] 27.2 pg Normal 26.7-34.0 [facility] Comment on above: Performed By: #### C BC #### [facility] [address] [place] [address] Dr. Yayo Gregg MCHC (RBC) [Mass/Vol] 33.5 g/dL Normal 29.9-35.2 [facility] Comment on above: Performed By: #### C BC #### [facility] [address] [place] [address] Dr. Yayo Gregg MCV (RBC) [Entitic vol] 81.0 fL Normal 81.0-99.0 [facility] Comment on above: Performed By: #### C BC #### [facility] [address] [place] [address] Dr. Yayo Gregg MONO # 1.6 103/ul Critically high 0.3-0.8 [facility] Comment on above: Performed By: #### C BC #### [facility] [address] [place] [address] Dr. Yayo Gregg Monocytes/100 WBC (Bld) 13.4 % Critically high 1.7-12.0 [facility] [facility] Comment on above: Performed By: #### C BC #### [facility] [address] [place] [address] Dr. Yayo Gregg NEUT # 6.3 103/ul Normal 1.4-6.5 [facility] Comment on above: Performed By: #### C BC #### [facility] [address] [place] [address] Dr. Yayo Gregg Neutrophils/100 WBC (Bld) 53.1 % Normal 43.0-75.0 [facility] Comment on above: Performed By: #### C BC #### [facility] [address] [place] [address] Dr. Yayo Gregg Platelet mean volume (Bld) [Entitic vol] 9.4 fL Critically low 9.5-13.5 [facility] Comment on above: Performed By: #### C BC #### [facility] [address] [place] [address] Dr. Yayo Gregg PLT 426 103/ul Normal 150-450 [facility] Comment on above: Performed By: #### C BC #### [facility] [address] [place] [address] Dr. Yayo Gregg RBC 4.01 106/ul Critically low 4.20-5.40 [facility] Comment on above: Performed By: #### C BC #### [facility] [address] [place] [address] Dr. Yayo Gregg WBC 11.9 103/ul Critically high 4.0-11.0 [facility] Comment on above: Performed By: #### C BC #### [facility] [address] [place] [address] Dr. Yayo Gregg FERRITINon 02-09-2022 Ferritin [Mass/Vol] 36.0 ng/mL Normal 8.0-252.0 [facility] Comment on above: Performed By: #### V ITB12, FETIBC, FERR #### [facility] [address] [place] [address] Dr. Yayo Gregg IRON AND TIBCon 02-09-2022 % SATURATION 5.2 % Normal [facility] Comment on above: Performed By: #### V ITB12, FETIBC, FERR #### [facility] [address] [place] [address] Dr. Yayo Gregg Iron [Mass/Vol] 16.0 ug/dL Critically low 50.0-170.0 [facility] Comment on above: Performed By: #### V ITB12, FETIBC, FERR #### [facility] [address] [place] [address] Dr. Yayo Gregg TIBC DIRECT 305.0 ug/dL Normal 250.0-450.0 [facility] Comment on above: Performed By: #### V ITB12, FETIBC, FERR #### [facility] [address] [place] [address] Dr. Yayo Gregg VITAMIN B12on 02-09-2022 Cobalamin (Vitamin B12) [Mass/Vol] 819.0 pg/mL Normal 193.0-986.0 [facility] Comment on above: Performed By: #### V ITB12, FETIBC, FERR #### [facility] [address] [place] [address] Dr. Yayo Gregg BNPon 01-27-2022 Natriuretic peptide B (Bld) [Mass/Vol] 270.0 pg/mL Normal <=1,800.0 [facility] Comment on above: Performed By: #### I MMUNGL #### [facility] [address] [place] [address] Dr. Yayo Gregg CARDIAC TARAN ADMITon 022 CK [Catalytic activity/Vol] 143 U/L Normal 26-192 [facility] Comment on above: Performed By: #### I MMUNGL #### [facility] [address] [place] [address] Dr. Yayo Gregg CK.MB [Mass/Vol] 2.66 ng/mL Normal <=3.60 [facility] Comment on above: Performed By: #### I MMUNGL #### [facility] [address] [place] [address] Dr. Yayo Gregg HSTROP 4.0 pg/mL Normal 4.0-51.3 [facility] Comment on above: Result Comment: CUT- OFF POINTS HAVE BEEN ESTABLISHED BASED ON THE FOURTH UNIVERSAL DEFINITIONS OF MYOCARDIAL INFARCTION. THE UPPER REFERENCE LIMIT (URL) OF TROPONIN, DEFINED THE 99TH PERCENTILE OF cTnI DISTRIBUTION IN A REFERENCE POPULATION, HAS BEEN CONFIRMED THE DECISION THRESHOLD FOR [place] DIAGNOSIS. Performed By: #### I MMUNGL #### [facility] [address] [place] [address] Dr. Yayo Gregg CARA 113 ng/mL Critically high 9-82 [facility] Comment on above: Performed By: #### I MMUNGL #### [facility] [address] [place] [address] Dr. Yayo Gregg CBC AUTO DIFFon 01-27-2022 BASO # 0.1 103/ul Normal 0.0-0.1 [facility] Comment on above: Performed By: #### C BC #### [facility] [address] [place] [address] Dr. Yayo Gregg Basophils/100 WBC (Bld) 0.7 % Normal 0.2-2.0 [facility] Comment on above: Performed By: #### C BC #### [facility] [address] [place] [address] Dr. Yayo Gregg EO # 1.1 103/ul Critically high 0.0-0.7 [facility] Comment on above: Performed By: #### C BC #### [facility] [address] [place] [address] Dr. Yayo Gregg Eosinophils/100 WBC (Bld) 7.3 % Critically high 0.9-7.0 [facility] Comment on above: Performed By: #### C BC #### [facility] [address] [place] [address] Dr. Yayo Gregg Erythrocyte distribution width (RBC) [Ratio] 13.8 % Normal 11.0-15.0 [facility] Comment on above: Performed By: #### C BC #### [facility] [address] [place] [address] Dr. Yayo Gregg Hematocrit (Bld) [Volume fraction] 34.4 % Critically low 36.0-48.0 [facility] Comment on above: Performed By: #### C BC #### [facility] [address] [place] [address] Dr. Yayo Gregg Hemoglobin (Bld) [Mass/Vol] 11.3 g/dL Critically low 12.0-16.0 [facility] Comment on above: Performed By: #### C BC #### [facility] [address] [place] [address] Dr. Yayo Gregg IG # 0.09 10e3/ul Critically high 0.00-0.03 [facility] Comment on above: Performed By: #### C BC #### [facility] [address] [place] [address] Dr. Yayo Gregg IG % 0.6 % Critically high 0.0-0.5 [facility] Comment on above: Performed By: #### C BC #### [facility] [address] [place] [address] Dr. Yayo Gregg LYMPH # 2.5 103/ul Normal 1.2-3.8 [facility] Comment on above: Performed By: #### C BC #### [facility] [address] [place] [address] Dr. Yayo Gregg Lymphocytes/100 WBC (Bld) 16.6 % Critically low 20.5-60.0 [facility] Comment on above: Performed By: #### C BC #### [facility] [address] [place] [address] Dr. Yayo Gregg MANUAL DIFF REQ NO Normal [facility] Comment on above: Performed By: #### C BC #### [facility] [address] [place] [address] Dr. Yayo Gregg MCH (RBC) [Entitic mass] 26.7 pg Normal 26.7-34.0 [facility] Comment on above: Performed By: #### C BC #### [facility] [address] [place] [address] Dr. Yayo Gregg MCHC (RBC) [Mass/Vol] 32.8 g/dL Normal 29.9-35.2 [facility] Comment on above: Performed By: #### C BC #### [facility] [address] [place] [address] Dr. Yayo Gregg MCV (RBC) [Entitic vol] 81.1 fL Normal 81.0-99.0 [facility] Comment on above: Performed By: #### C BC #### [facility] [address] [place] [address] Dr. Yayo Gregg MONO # 2.1 103/ul Critically high 0.3-0.8 [facility] Comment on above: Performed By: #### C BC #### [facility] [address] [place] [address] Dr. Yayo Gregg Monocytes/100 WBC (Bld) 14.0 % Critically high 1.7-12.0 [facility] Comment on above: Performed By: #### C BC #### [facility] [address] [place] [address] Dr. Yayo Gregg NEUT # 9.1 103/ul Critically high 1.4-6.5 [facility] Comment on above: Performed By: #### C BC #### [facility] [address] [place] [address] Dr. Yayo Gregg Neutrophils/100 WBC (Bld) 60.8 % Normal 43.0-75.0 [facility] Comment on above: Performed By: #### C BC #### [facility] [address] [place] [address] Dr. Yayo Gregg Platelet mean volume (Bld) [Entitic vol] 10.2 fL Normal 9.5-13.5 [facility] Comment on above: Performed By: #### C BC #### [facility] [address] [place] [address] Dr. Yayo Gregg PLT 455 103/ul Critically high 150-450 [facility] Comment on above: Performed By: #### C BC #### [facility] [address] [place] [address] Dr. Yayo Gregg RBC 4.24 106/ul Normal 4.20-5.40 [facility] Comment on above: Performed By: #### C BC #### [facility] [address] [place] [address] Dr. Yayo Gregg WBC 14.9 103/ul Critically high 4.0-11.0 [facility] Comment on above: Performed By: #### C BC #### [facility] [address] [place] [address] Dr. Yayo Gregg Covid-19 PCR (CVDTB)on 01-09 SARS-CoV-2 (COVID-19) RNA CHANTALE+probe Ql (Unsp spec) Not detected Normal NOT DETECTED [facility] Comment on above: Result Comment: When [...] for this test is supported by the [place] of [employer] and [employer] Service's declaration that [...] used). Performed By: #### C BC #### [facility] [address] [place] [address] Dr. Yayo Gregg PROF 14(COMP METB)on 022 Albumin [Mass/Vol] 3.0 g/dL Critically low 3.4-5.0 [facility] Comment on above: Performed By: #### I MMUNGL #### [facility] [address] [place] [address] Dr. Yayo Gregg Albumin/Globulin [Mass ratio] 0.9 {ratio} Normal [facility] Comment on above: Performed By: #### I MMUNGL #### [facility] [address] [place] [address] Dr. Yayo Gregg ALP [Catalytic activity/Vol] 95 U/L Normal 46-116 [facility] Comment on above: Performed By: #### I MMUNGL #### [facility] [address] [place] [address] Dr. Yayo Gregg ALT [Catalytic activity/Vol] 28 U/L Normal 14-59 [facility] Comment on above: Performed By: #### I MMUNGL #### [facility] [address] [address] [address] Yayo Gregg Anion gap [Moles/Vol] 11.9 mmol/L Normal [facility] Comment on above: Performed By: #### I MMUNGL #### [facility] [address] [address] [address] Yayo Gregg AST [Catalytic activity/Vol] 24 U/L Normal 15-37 [facility] Comment on above: Performed By: #### I MMUNGL #### [facility] [address] [address] [address] Yayo Gregg Bilirubin [Mass/Vol] 0.3 mg/dL Normal 0.2-1.0 [facility] Comment on above: Performed By: #### I MMUNGL #### [facility] [address] [place] [address] Dr. Yayo Gregg Calcium [Mass/Vol] 8.8 mg/dL Normal 8.5-10.1 [facility] Comment on above: Performed By: #### I MMUNGL #### [facility] [address] [address] [address] Yayo Gregg Chloride [Moles/Vol] 98 mmol/L Normal 98-107 [facility] Comment on above: Performed By: #### I MMUNGL #### [facility] [address] [place] [address] Dr. Yayo Gregg CO2 [Moles/Vol] 24.6 mmol/L Normal 21.0-32.0 [facility] Comment on above: Performed By: #### I MMUNGL #### [facility] [address] [place] [address] Dr. Yayo Gregg Creatinine [Mass/Vol] 0.91 mg/dL Normal 0.55-1.02 [facility] Comment on above: Performed By: #### I MMUNGL #### [facility] [address] [place] [address] Dr. Yayo Gregg EGFR-AF TONGAN >60 Normal >=60 [facility] Comment on above: Performed By: #### I MMUNGL #### [facility] [address] [address] [address] Yayo Gregg EGFR-NON AF TONGAN 59 mL/min/1.73m2 Critically low >=60 [facility] Comment on above: Performed By: #### I MMUNGL #### [facility] [address] [address] [address] Yayo Gregg Globulin (S) [Mass/Vol] 3.3 g/dL Normal [facility] Comment on above: Performed By: #### I MMUNGL #### [facility] [address] [address] [address] Yayo Gregg Glucose [Mass/Vol] 95 mg/dL Normal 74-106 [facility] Comment on above: Performed By: #### I MMUNGL #### [facility] [address] [address] [address] Yayo Gregg Potassium [Moles/Vol] 4.5 mmol/L Normal 3.5-5.1 [facility] Comment on above: Performed By: #### I MMUNGL #### [facility] [address] [address] [address] Yayo Gregg Protein [Mass/Vol] 6.3 g/dL Critically low 6.4-8.2 [facility] Comment on above: Performed By: #### I MMUNGL #### [facility] [address] [place] [address] Dr. Yayo Gregg Sodium [Moles/Vol] 130 mmol/L Critically low 136-145 [facility] Comment on above: Performed By: #### I MMUNGL #### [facility] [address] [address] [address] Yayo Gregg Urea nitrogen [Mass/Vol] 12.0 mg/dL Normal 7.0-18.0 [facility] Comment on above: Performed By: #### I MMUNGL #### [facility] [address] [address] [address] Yayo Gregg Urea nitrogen/Creatinine [Mass ratio] 13.2 mg/mg Normal [facility] Comment on above: Performed By: #### I MMUNGL #### [facility] [address] [place] [address] Dr. Yayo Gregg PROTIMEon 01-27-2022 INR Coag (PPP) [Relative time] 0.96 {INR} Normal [facility] Comment on above: Performed By: #### I MMUNGL #### [facility] [address] [place] [address] Dr. Yayo Gregg INR GUIDELINES SEE BELOW Normal [facility] Comment on above: Result Comment: ASHLEY RED INR: 2.0 - 3.0 CONDITIONS NOT LISTED BELOW 2.5 - 3.5 FOR PROSTHETIC HEART VALVE REPLACEMENT 2.5 - 3.5 RECURRENT THROMBOSIS Performed By: #### I MMUNGL #### [facility] [address] [place] [address] Dr. Yayo Gregg PT Coag (PPP) [Time] 10.4 s Normal 9.0-11.6 [facility] Comment on above: Performed By: #### I MMUNGL #### [facility] [address] [place] [address] Dr. Yayo Gregg PTTon 01-27-2022 aPTT Coag (Bld) [Time] 31.6 s Normal 22.3-36.2 [facility] Comment on above: Performed By: #### I MMUNGL #### [facility] [address] [place] [address] Dr. Yayo Gregg TROPONIN, HIGH SENSITIVITYon 01-27-2022 HSTROP 4.7 pg/mL Normal 4.0-51.3 [facility] Comment on above: Result Comment: CUT- OFF POINTS HAVE BEEN ESTABLISHED BASED ON THE FOURTH UNIVERSAL DEFINITIONS OF MYOCARDIAL INFARCTION. THE UPPER REFERENCE LIMIT (URL) OF TROPONIN, DEFINED THE 99TH PERCENTILE OF cTnI DISTRIBUTION IN A REFERENCE POPULATION, HAS BEEN CONFIRMED THE DECISION THRESHOLD FOR VT DIAGNOSIS. Performed By: #### H STROPN #### [facility] [address] [place] [address] Dr. Yayo Gregg XR CHEST 1 Von [...] by: ANTHONY GUIDRY Date: 2022-01-27 11:47 Normal [facility] XR LSPINE 2_3 VIEWSon 2021 XR [...] by: BENJAMIN GUNN Date: 2021-12-18 14:19 Normal [facility] BASIC METABOLIC PANEL(BMP)on 01-06-2018 Anion gap 12 mmol/L Normal 9-18 [facility] Comment on above: Performed By: #### C VAMSI SHERIFFGR ####MAIN LABCLIA:[id number] [place] [address] BUN (urea nitrogen) 17 mg/dL Normal 8-23 [facility] Comment on above: Performed By: #### VAMSI RUFFGR ####MAIN LABCLIA:[id number] [place] [address] BUN/Creatinine Ratio 22.1 mg/mg Normal [facility] Comment on above: Performed By: #### AMANDA RUFFCGR ####MAIN LABCLIA:[id number] [place] [address] Calcium 7.9 mg/dL Low 8.8-10.2 [facility] Comment on above: Performed By: #### Yaquelin RUFFCBCGR ####MAIN LABCLIA:[id number] [place] [address] Chloride 101 mmol/L Normal 98-107 [facility] Comment on above: Performed By: #### C SHARITA, ZCBCGR ####MAIN LABCLIA:[id number] [facility] [place] [address] CO2 24 mmol/L Normal 22-29 [facility] Comment on above: Performed By: #### C SHARITA, ZCBCGR ####MAIN LABCLIA:[id number] [place] [address] Creatinine 0.77 mg/dL Normal 0.50-0.90 [facility] Comment on above: Performed By: #### C SHARITA, ZCBCGR ####MAIN LABCLIA:[id number] [place] [address] eGFR (MDRD) 77 /1.73 m2 Normal >60 mL/min [facility] Comment on above: Result Comment: Norm al RangeStage Description:1 Normal or Increased GFR >=902 Mild Decrease in GFR 60-903 Moderately Decreased GFR 30-594 Severely Decreased GFR 15-295 Kidney Failure <15 Performed By: #### C SHARITA, ZCBCGR ####MAIN LABCLIA:[id number] [place] [address] Glucose mass conc 89 mg/dL Normal 74-109 [facility] Comment on above: Performed By: #### C SHARITA, ZCBCGR ####MAIN LABCLIA:[id number] [place] [address] Potassium molar conc 4.4 mmol/L Normal 3.5-5.1 [facility] Comment on above: Performed By: #### C SHARITA ZCBCGR ####MAIN LABCLIA:[id number] [place] [address] Sodium 133 mmol/L Low 136-145 [facility] Comment on above: Performed By: #### C SHARITA, ZCBCGR ####MAIN LABCLIA:[id number] [place] [address] CBC/DIFF GROUPon 01-06-2018 Anisocytosis presence 1+ Normal [facility] Comment on above: Performed By: #### C SHARITA ZCBCGR ####MAIN LABCLIA:[id number] [facility] [place] [address] HYPOCHROMASIA 1+ Normal [facility] Comment on above: Performed By: #### C SHARITA, ZCBCGR ####MAIN LABCLIA:[id number] [facility] [place] [address] NORMOCHROMIC NO Normal [facility] Comment on above: Performed By: #### C SHARITA ZCBCGR ####MAIN LABCLIA:[id number] [facility] [place] [address] NORMOCYTIC NO [facility] Comment on above: Performed By: #### C SHARITA ZCBCGR ####MAIN LABCLIA:[id number] [facility] [place] [address] Platelets NORMAL [facility] Comment on above: Performed By: #### C SHARITA ZCBCGR ####MAIN LABCLIA:[id number] [facility] [place] [address] BAND NEUTROPHILS #(MANUAL) 152 /cmm Normal <648 [facility] Comment on above: Performed By: #### C SHARITA ZCBCGR ####MAIN LABCLIA:[id number] [facility] [place] [address] Eosinophils 456 /cmm High <432 [facility] Comment on above: Performed By: #### Vladimir SHERIFF ZCBCGR ####MAIN LABCLIA:[id number] [facility] [place] [address] Eosinophils/100 leukocytes 6 % High <4 [facility] Comment on above: Performed By: #### C SHARITA ZCBCGR ####MAIN LABCLIA:[id number] [facility] [place] [address] Lymphocytes 1748 /cmm Normal 960-4752 [facility] Comment on above: Performed By: #### Vladimir SHERIFF ZCBCGR ####MAIN LABCLIA:[id number] [facility] [place] [address] Lymphocytes/100 leukocytes 23 % Normal 20-44 [facility] Comment on above: Performed By: #### Vladimir SHERIFF, ZCBCGR ####MAIN LABCLIA:[id number] [facility] [place] [address] METAMYELOCYTES #(MANUAL) 76 /cmm High 0 [facility] Comment on above: Performed By: #### Vladimir SHERIFF, ZCBCGR ####MAIN LABCLIA:[id number] [facility] [place] [address] Metamyelocytes/100 leukocytes 1 % High 0 [facility] Comment on above: Performed By: #### Vladimir SHERIFF, ZCBCGR ####MAIN LABCLIA:[id number] [facility] [place] [address] Monocytes 1292 /cmm High 96-972 [facility] Comment on above: Performed By: #### Vladimir SHERIFF, ZCBCGR ####MAIN LABCLIA:[id number] [facility] [place] [address] Monocytes/100 leukocytes 17 % High 2-9 [facility] Comment on above: Performed By: #### Vladimir SHERIFF, ZCBCGR ####MAIN LABCLIA:[id number] [facility] [place] [address] Neutrophils 3876 /cmm Normal 3122-9105 [facility] Comment on above: Performed By: #### Vladimir SHERIFF, ZCBCGR ####MAIN LABCLIA:[id number] [facility] [place] [address] Neutrophils band/100 leukocytes 2 % Normal <6 [facility] Comment on above: Performed By: #### C SHARITA, ZCBCGR ####MAIN LABCLIA:[id number] [facility] [place] [address] Neutrophils/100 WBC Auto (Bld) 51 % Normal 50-70 [facility] Comment on above: Performed By: #### Vladimir SHERIFF, ZCBCGR ####MAIN LABCLIA:[id number] [facility] [place] [address] TOTAL CELLS COUNTED 100 Normal [facility] Comment on above: Performed By: #### C SHARITA, ZCBCGR ####MAIN LABCLIA:[id number] [facility] [place] [address] Erythrocyte distribution width Auto Ratio (RBC) 13.0 % Normal 11.5-14.5 [facility] Comment on above: Performed By: #### C SHARITA, ZCBCGR ####MAIN LABCLIA:[id number] [facility] [place] [address] Erythrocytes (RBC) 3.49 10 6/cmm Low 4.20-5.40 [facility] Comment on above: Performed By: #### C SHARITA, ZCBCGR ####MAIN LABCLIA:[id number] [place] [address] Hematocrit (HCT) 29.4 % Low 38.0-47.0 [facility] Comment on above: Performed By: #### C SHARITA, ZCBCGR ####MAIN LABCLIA:[id number] [facility] [place] [address] Hemoglobin mass conc (Bld) 10.1 g/dL Low 12.0-16.4 [facility] Comment on above: Performed By: #### C SHARITA ZCBCGR ####MAIN LABCLIA:[id number] [facility] [place] [address] MCH 34.5 g/dL Normal 32.0-36.0 [facility] Comment on above: Performed By: #### C SHARITA, ZCBCGR ####MAIN LABCLIA:[id number] [facility] [place] [address] MCH 29.1 pg Normal 27.0-31.0 [facility] Comment on above: Performed By: #### C SHARITA ZCBCGR ####MAIN LABCLIA:[id number] [facility] [place] [address] MCV 84.3 fL Normal 80.0-96.0 [facility] Comment on above: Performed By: #### C SHARITA, ZCBCGR ####MAIN LABCLIA:[id number] [facility] [place] [address] Platelets 359 10 3/cmm Normal 130-400 [facility] Comment on above: Performed By: #### C BC, ZCBCGR ####MAIN LABCLIA:[id number] [place] [address] WBC (Leukocytes) 7.6 10 3/cmm Normal 4.8-10.8 [facility] Comment on above: Performed By: #### C BC, ZCBCGR ####MAIN LABCLIA:[id number] [place] [address] FREE T4 (FREE THYROXINE)on 0 01-06-2018 Thyroxine (T4) free 2.46 ng/dL High 0.93-1.7 [facility] Comment on above: Performed By: #### C BC, ZCBCGR ####MAIN LABCLIA:[id number] [place] [address] IM Progress Noteon 8 IM Progress Note [address] [place], [place] [address] TANGELA TRINIDAD 77 [id number] Donnell Barton MD 4W / [id number] 1940 Report #: [id number] Hospitalist Progress Note Date/Time: 01/06/18805 Report Status: [...] fine and wants to go back to [place]. Her will be driving. - Reviewed laboratory [...] have her follow-up with her physician in [place]. (2) Hyponatremia Status: Improved Plan: Sodium of 133-asymptomatic urine sodium slightly elevated at 35. (3) Essential hypertension Status: Stable (4) Hypothyroidism Plan: Suppressed TSH, her physician from [place] just called her in down dosed her [...] 01/06/18816 Electronically Cosigned By: Cosigned Date/Time: Normal [facility] T3 FREEon 01-06-2018 Triiodothyronine (T3) free 5.92 pg/mL High 2.0-4.4 [facility] Comment on above: Performed By: #### C MELONY SHERIFF ####MAIN LABCLIA:[id number] [place] [address] CBC/DIFF GROUPon 01-05-2018 NORMOCHROMIC YES Normal [facility] Comment on above: Performed By: #### MELONY RUFF ####MAIN LABCLIA:[id number] [place] [address] NORMOCYTIC YES Normal [facility] Comment on above: Performed By: #### MELONY RUFF ####MAIN LABCLIA:[id number] [place] [address] Platelets NORMAL Normal [facility] Comment on above: Performed By: #### Vladimir SHERIFF, ZCBCGR ####MAIN LABCLIA:[id number] [facility] [place] [address] BAND NEUTROPHILS #(MANUAL) 414 /cmm Normal <648 [facility] Comment on above: Performed By: #### C SHARITA, ZCBCGR ####MAIN LABCLIA:[id number] [facility] [place] [address] Eosinophils 552 /cmm High <432 [facility] Comment on above: Performed By: #### C SHARITA, ZCBCGR ####MAIN LABCLIA:[id number] [place] [address] Eosinophils/100 leukocytes 4 % Normal <4 [facility] Comment on above: Performed By: #### C SHARITA, ZCBCGR ####MAIN LABCLIA:[id number] [place] [address] Lymphocytes 690 /cmm Low 960-4752 [facility] Comment on above: Performed By: #### C SHARITA, ZCBCGR ####MAIN LABCLIA:[id number] [place] [address] Lymphocytes/100 leukocytes 5 % Low 20-44 [facility] Comment on above: Performed By: #### C SHARITA, ZCBCGR ####MAIN LABCLIA:[id number] [place] [address] Monocytes 1242 /cmm High 96-972 [facility] Comment on above: Performed By: #### C SHARITA, ZCBCGR ####MAIN LABCLIA:[id number] [place] [address] Monocytes/100 leukocytes 9 % Normal 2-9 [facility] Comment on above: Performed By: #### C SHARITA, ZCBCGR ####MAIN LABCLIA:[id number] [place] [address] Neutrophils 94060 /cmm High 5021-7220 [facility] Comment on above: Performed By: #### C SHARITA, ZCBCGR ####MAIN LABCLIA:[id number] [facility] [place] [address] Neutrophils band/100 leukocytes 3 % Normal <6 [facility] Comment on above: Performed By: #### C SHARITA, ZCBCGR ####MAIN LABCLIA:[id number] [facility] [place] [address] Neutrophils/100 WBC Auto (Bld) 79 % High 50-70 [facility] Comment on above: Performed By: #### C SHARITA, ZCBCGR ####MAIN LABCLIA:[id number] [facility] [place] [address] TOTAL CELLS COUNTED 100 Normal [facility] Comment on above: Performed By: #### C SHARITA, ZCBCGR ####MAIN LABCLIA:[id number] [facility] [place] [address] Hematocrit (HCT) 36.0 % Low 38.0-47.0 [facility] Comment on above: Performed By: #### C SHARITA ZCBCGR ####MAIN LABCLIA:[id number] [facility] [place] [address] Hemoglobin mass conc (Bld) 12.2 g/dL Normal 12.0-16.4 [facility] Comment on above: Performed By: #### C SHARITA, ZCBCGR ####MAIN LABCLIA:[id number] [facility] [place] [address] MCH 28.6 pg Normal 27.0-31.0 [facility] Comment on above: Performed By: #### C SHARITA ZCBCGR ####MAIN LABCLIA:[id number] [facility] [place] [address] MCV 84.1 fL Normal 80.0-96.0 [facility] Comment on above: Performed By: #### C SHARITA, ZCBCGR ####MAIN LABCLIA:[id number] [facility] [place] [address] WBC (Leukocytes) 13.8 10 3/cmm High 4.8-10.8 [facility] Comment on above: Performed By: #### C SHARITA, ZCBCGR ####MAIN LABCLIA:[id number] [place] [address] CHEST 2 VIEWSon 01-05-2018 CHEST [address] [phone]____ Pt Location: 4W/ ADM IN Pt RM#: [id number] MR #: [id number] DATE: 01/05/18 123 ADM#: [id number] #: [id number] JANET TRINIDADOB: 1940 Age/Sex: 77 / F REPORT STATUS: SignedORDERING PHYSICIAN: STU Salvador/PRIMARY PHYSICIAN: Umm Gates HISTO RY/REASON: CPCLINICAL HISTORY: Dizziness.TECHNICAL FACTORS: 2 [...] JLECC: ROSY Salvador; Doctor,No; Donnell Barton MD [facility] COMPLETE BLOOD COUNTon 01-05 Erythrocyte distribution width Auto Ratio (RBC) 12.7 % Normal 11.5-14.5 [facility] Comment on above: Performed By: #### C BC, ZCBCGR ####MAIN LABCLIA:[id number] [facility] [place] [address] Erythrocytes (RBC) 4.28 10 6/cmm Normal 4.20-5.40 [facility] Comment on above: Performed By: #### C BC, ZCBCGR ####MAIN LABCLIA:[id number] [facility] [place] [address] MCH 34.0 g/dL Normal 32.0-36.0 [facility] Comment on above: Performed By: #### C BC, YaquelinCBCGR ####MAIN LABCLIA:[id number] [facility] [place] [address] Platelets 423 10 3/cmm High 130-400 [facility] Comment on above: Performed By: #### C BCAMANDACGR ####MAIN LABCLIA:[id number] [facility] [place] [address] COMPREHENSIVE METABOLIC PANE [facility] 01-05-2018 Alanine aminotransferase (ALT) 15 U/L Normal 0-33 [facility] Comment on above: Performed By: #### C MP, MG ####MAIN LABCLIA:[id number] [facility] [place] [address] Albumin 3.3 g/dL Normal 3.0-4.5 [facility] Comment on above: Performed By: #### C MP, MG ####MAIN LABCLIA:[id number] [facility] [place] [address] Albumin/Globulin Ratio 1.2 {ratio} Normal 1-1.4 [facility] Comment on above: Performed By: #### C MP, MG ####MAIN LABCLIA:[id number] [facility] [place] [address] Alkaline phosphatase (ALP) 76 U/L Normal 35-104 [facility] Comment on above: Performed By: #### C MP, MG ####MAIN LABCLIA:[id number] [facility] [place] [address] Anion gap 15 mmol/L Normal 9-18 [facility] Comment on above: Performed By: #### C MP, MG ####MAIN LABCLIA:[id number] [facility] [place] [address] Aspartate aminotransferase (AST) 16 U/L Normal 0-32 [facility] Comment on above: Performed By: #### C MP, MG ####MAIN LABCLIA:[id number] [facility] [place] [address] Bilirubin (total) 0.4 mg/dL Normal 0.2-1.2 [facility] Comment on above: Performed By: #### C MP, MG ####MAIN LABCLIA:[id number] [facility] [place] [address] BUN (urea nitrogen) 26 mg/dL High 8-23 [facility] Comment on above: Performed By: #### C MP, MG ####MAIN LABCLIA:[id number] [facility] [place] [address] BUN/Creatinine Ratio 22.2 mg/mg Normal [facility] Comment on above: Performed By: #### C MP, MG ####MAIN LABCLIA:[id number] [facility] [place] [address] Calcium 8.5 mg/dL Low 8.8-10.2 [facility] Comment on above: Performed By: #### C MP, MG ####MAIN LABCLIA:[id number] [facility] [place] [address] Chloride 90 mmol/L Low 98-107 [facility] Comment on above: Performed By: #### C MP, MG ####MAIN LABCLIA:[id number] [facility] [place] [address] CO2 26 mmol/L Normal 22-29 [facility] Comment on above: Performed By: #### C MP, MG ####MAIN LABCLIA:[id number] [facility] [place] [address] Creatinine 1.17 mg/dL High 0.50-0.90 [facility] Comment on above: Performed By: #### C MP, MG ####MAIN LABCLIA:[id number] [facility] [place] [address] eGFR (MDRD) 47 /1.73 m2 Low >60 mL/min [facility] Comment on above: Result Comment: Norm al RangeStage Description:1 Normal or Increased GFR >=902 Mild Decrease in GFR 60-903 Moderately Decreased GFR 30-594 Severely Decreased GFR 15-295 Kidney Failure <15 Performed By: #### C MP, MG ####MAIN LABCLIA:[id number] [facility] [place] [address] Globulin 2.7 g/dL Normal 2.3-3.5 [facility] Comment on above: Performed By: #### C MP, MG ####MAIN LABCLIA:[id number] [place] [address] Glucose mass conc 136 mg/dL High 74-109 [facility] Comment on above: Performed By: #### C MP, MG ####MAIN LABCLIA:[id number] [facility] [place] [address] Potassium molar conc 4.5 mmol/L Normal 3.5-5.1 [facility] Comment on above: Performed By: #### C MP, MG ####MAIN LABCLIA:[id number] [place] [address] Protein 6.0 g/dL Low 6.4-8.3 [facility] Comment on above: Performed By: #### C MP, MG ####MAIN LABCLIA:[id number] [place] [address] Sodium 126 mmol/L Low 136-145 [facility] Comment on above: Performed By: #### C MP, MG ####MAIN LABCLIA:[id number] [place] [address] CT HEAD WO 01-05-2018 CT HEAD WO [address] [phone]____ Pt Location: 4W/ ADM IN Pt RM#: [id number] MR #: [id number] DATE: 01/05/18 1236 ADM#: [id number] #: [id number] JANET TRINIDADOB: 1940 Age/Sex: 77 / F REPORT STATUS: SignedORDERING PHYSICIAN: DAVID SalvadorRIDEONTE/PRIMARY PHYSICIAN: Doctor,No HISTO RY/REASON: Dizziness, near syncopeCLINICAL [...] matter.REPORT# [id number] READ BY: Cielo Pacheco M.D. [id number] REPORT RELEASED BY: Cielo Pacheco M.D. 01/05/18 1502Transcribed Date/Time: 01/05/18 1339 PLPCC: ROSY Salvador; Doctor,No; Donnell Barton MD [facility] Emergency Room Visit Reporto n 01-05-2018 Emergency Room Visit Report [address] [place], [place] [address] TANGELA TRINIDAD 1940 (77 F) [id number] Helio Hoang 4W Report #: [id number] PCP: No Doctor Emergency Room Visit Report [...] and near syncope at [facility]. Pt reports recent bronchitis that she was [...] Allergy Mild Rash Verified 01/05/18 12:40 Antibiotics) Wfbeaun-Kls-Rim Reductase Allergy Unknown Verified 01/05/18 12:40 Inhibitor [...] PO BID 01/05/18 01/05/18 raNITIdine HCl [Acid Crusher Feeder] 150 mg PO BID 01/05/18 01/05/18 ROS [...] % (Manual) (<4) % Neutrophils # (Manual) ([id number]) /cmm Band Neutrophils # (<648) /cmm Lymphocytes [...] Appearance Clear Urine pH 7.0 Ur Specific [place] <=1.005 Urine Protein Negative (NEGATIVE) Urine Glucose [...] (Manual) 4 (<4) % Neutrophils # (Manual) 21677 H (0828-5277) /cmm Band Neutrophils # 414 (<648) /cmm [...] Color Urine Appearance Urine pH Ur Specific [place] Urine Protein (NEGATIVE) Urine Glucose (UA) (NEGATIVE) [...] an inhaler. This was obtained by the [facility] pharmacy in [facility]. 01/05/18 14:40 I discussed this patient [...] ROSY Salvador 01/05/18 1638 Sohan Grover MD 01/05/18 190 I was personally available for consultation in the ED, but I did not see the patient. Electronically Cosigned By: Sohan Grover MD Cosigned Date/Time: 01/05/18 190 [facility] History & Physicalon 018 History & Physical [address] [place] [address] TANGELA TRINIDAD [id number] Donnell Barton MD 4W / [id number] 1940 Report #: [id number] Admission Date: 01/05/18 History Physical Date/Time: 01/05/18 [...] episode. Patient is visiting this area from [place] in [place] [...] asymptomatic. Evaluation emergency room consisted of a surveillance monitor which shows normal sinus rhythm, EKG shows normal sinus rhythm without any acute ST or T-wave changes. White count slightly elevated however she had been on prednisone, sodium was 126 and chloride was 90 but she does not take diuretic she does take an angiotensin receptor farndy. Patient says she had blood work with [...] Allergy Mild Rash Verified 01/05/18 12:40 Antibiotics) Axmsiov-Xjp-Awt Reductase Allergy Unknown Verified 01/05/18 12:40 Inhibitor [...] PO BID 01/05/18 01/05/18 raNITIdine HCl [Acid Crusher Feeder] 150 mg PO BID 01/05/18 01/05/18 Allergies [...] 1541 Electronically Cosigned By: Cosigned Date/Time: Normal [facility] MAGNESIUMon 01-05-2018 Magnesium 2.1 mg/dL Normal 1.6-2.6 [facility] Comment on above: Performed By: #### C MP, MG ####MAIN LABCLIA:[id number] [place] [address] SODIUM,URINE RANDOMon 2017 SODIUM,URINE RANDOM 35 mmol/L Normal [facility] Comment on above: Order Comment: COLLE CTED BY: Sherine Tenorio Result Comment: The reference range has not been established for this test. Performed By: #### C BC, ZCBCGR ####MAIN LABCLIA:[id number] [place] [address] THYROID STIMULATING HORMONEo n 01-05-2018 Thyroid stimulating hormone (TSH) 0.16 uIU/mL Low 0.27-4.20 [facility] Comment on above: Performed By: #### C BC, ZCBCGR ####MAIN LABCLIA:[id number] [place] [address] TROPONIN Ton 01-05-2018 Troponin T.cardiac mass conc [...] Performed By: #### C BC, ZCBCGR ####MAIN LABCLIA:[id number] [place] [address] Troponin T.cardiac mass conc ug/L Normal <0.010 [...] hours. Performed By: #### T ROPT ####MAIN LABCLIA:[id number] [facility] [place] [address] URINALYSISon 01-05-2018 UA APPEARANCE CLEAR Normal [facility] Comment on above: Order Comment: COLLE CTED BY: davedVOID-MIDSTREAM Performed By: #### U A ####MAIN LABCLIA:[id number] [facility] [place] [address] UA BACTERIA NONE Normal NONE [facility] Comment on above: Order Comment: COLLE CTED BY: davedVOID-MIDSTREAM Performed By: #### U A ####MAIN LABCLIA:[id number] [facility] [place] [address] UA SQUAMOUS EPITHELIAL 0-2 Normal [facility] Comment on above: Order Comment: COLLE CTED BY: Tye acostaOID-MIDSTREAM Performed By: #### U A ####MAIN LABCLIA:[id number] [facility] [place] [address] UA WBC 0-2 Normal 0-2 [facility] Comment on above: Order Comment: COLLE CTED BY: Tye acostaOID-MIDSTREAM Performed By: #### U A ####MAIN LABCLIA:[id number] [facility] [place] [address] Urine, color YELLOW Normal [facility] Comment on above: Order Comment: COLLE CTED BY: Tye acostaOID-MIDSTREAM Performed By: #### U A ####MAIN LABCLIA:[id number] [facility] [place] [address] Urine, erythrocytes 0-2 Normal 0-2 [facility] Comment on above: Order Comment: COLLE CTED BY: Tye acostaOID-MIDSTREAM Performed By: #### U A ####MAIN LABCLIA:[id number] [facility] [place] [address] UA BILIRUBIN Negative Normal NEGATIVE [facility] Comment on above: Order Comment: COLLE CTED BY: Tye acostaOID-MIDSTREAM Performed By: #### U A ####MAIN LABCLIA:[id number] [facility] [place] [address] UA BLOOD Negative Normal NEGATIVE [facility] Comment on above: Order Comment: COLLE CTED BY: Tye acostaOID-MIDSTREAM Performed By: #### U A ####MAIN LABCLIA:[id number] [place] [address] UA LEUKOCYTE ESTERASE TRACE Normal NEGATIVE [facility] Comment on above: Order Comment: COLLE CTED BY: Tye acostaOID-MIDSTREAM Performed By: #### U A ####MAIN LABCLIA:[id number] [place] [address] UA NITRITES Negative Normal NEGATIVE [facility] Comment on above: Order Comment: COLLE CTED BY: Tye acostaOID-MIDSTREAM Performed By: #### U A ####MAIN LABCLIA:[id number] [place] [address] UA PH 7.0 [facility] Comment on above: Order Comment: COLLE CTED BY: Tye acostaOID-MIDSTREAM Performed By: #### U A ####MAIN LABCLIA:[id number] [place] [address] UA PROTEIN Negative Normal NEGATIVE [facility] Comment on above: Order Comment: COLLE CTED BY: Tye acostaOID-MIDSTREAM Performed By: #### U A ####MAIN LABCLIA:[id number] [place] [address] UA SPECIFIC GRAVITY <=1.005 [facility] Comment on above: Order Comment: COLLE CTED BY: Tye acostaOID-MIDSTREAM Performed By: #### U A ####MAIN LABCLIA:[id number] [facility] [place] [address] UA UROBILINOGEN 0.2 mg/dL Normal 0.0-1.0 [facility] Comment on above: Order Comment: COLLE CTED BY: davedVOID-MIDSTREAM Performed By: #### U A ####MAIN LABCLIA:[id number] [facility] [place] [address] Urine, glucose Negative Normal NEGATIVE [facility] Comment on above: Order Comment: COLLE CTED BY: davedVOID-MIDSTREAM Performed By: #### U A ####MAIN LABCLIA:[id number] [facility] [place] [address] Urine, ketones presence Negative Normal NEGATIVE [facility] Comment on above: Order Comment: COLLE CTED BY: davedVOID-MIDSTREAM Performed By: #### U A ####MAIN LABCLIA:[id number] [facility] [place] [address] URINE SOURCE VOID-MIDSTREAM Normal [facility] Comment on above: Order Comment: COLLE CTED BY: davedVOID-MIDSTREAM Performed By: #### U A ####MAIN LABCLIA:[id number] [place] [address] VASCULAR RISK PANELon 2017 Cholesterol 180 mg/dL Normal 0-199 [facility] Comment on above: Order Comment: Comme nts: Use blood from ED if available Performed By: #### C BC ZCBCGR ####MAIN LABCLIA:[id number] [place] [address] HDL Cholesterol 42 mg/dL Low >65 [facility] Comment on above: Order Comment: Comme nts: Use blood from ED if available Performed By: #### C BC, ZCBCGR ####MAIN LABCLIA:[id number] [place] [address] LDL Cholesterol 98 mg/dL Normal <129 [facility] Comment on above: Order Comment: Comme nts: Use blood from ED if available Performed By: #### C BC, ZCBCGR ####MAIN LABCLIA:[id number] [place] [address] Triglyceride 202 mg/dL High 0-199 [facility] Comment on above: Order Comment: Comme nts: Use blood from ED if available Performed By: #### C BC, ZCBCGR ####MAIN LABCLIA:[id number] [facility] [place] [address] VLDL CHOLESTEROL 40 mg/dL Normal 5-40 [facility] Comment on above: Order Comment: Comme nts: Use blood from ED if available Performed By: #### C BC, ZCBCGR ####MAIN LABCLIA:[id number] [place] [address] Vital Signs Date Time Vital Sign Value Performing Clinician Facility 01-02-2024 11:39-0400 Body height 152.4 cm DO Kvng Ball Work Phone: [facility] 01-02-2024 11:39-0400 Body mass index (BMI) [Ratio] 26.6 kg/m2 DO Kvng Ball Work Phone: [facility] 01-02-2024 11:39-0400 Body weight 61.91 kg DO Kvng Ball Work Phone: [facility] 01-02-2024 11:39-0400 Diastolic blood pressure 85 mm[Hg] DO Kvng Ball Work Phone: [facility] 01-02-2024 11:39-0400 Heart rate 66 /min DO Kvng Ball Work Phone: [facility] 01-02-2024 11:39-0400 Respiratory rate 12 /min DO Kvng Ball Work Phone: [facility] 01-02-2024 11:39-0400 Systolic blood pressure 124 mm[Hg] DO Kvng Ball Work Phone: [facility] 05-27-2023 11:00-0500 Body height 152.4 cm Kvng Ball Other [employer] Other 05-27-2023 11:00-0500 Diastolic blood pressure 84 mm[Hg] Kvng Ball Other [employer] Other 05-27-2023 11:00-0500 Systolic blood pressure 124 mm[Hg] Kvng Ball Other [employer] Other 03-04-2023 13:45-0400 Body height 152.4 cm Kvng Ball Other [employer] Other 03-04-2023 13:45-0400 Body mass index (BMI) [Ratio] 28.47 kg/m2 Kvng Ball Other [employer] Other 03-04-2023 13:45-0400 Body weight 66.13 kg Kvng Ball Other [employer] Other 03-04-2023 13:45-0400 Diastolic blood pressure 80 mm[Hg] Kvng Ball Other [employer] Other 03-04-2023 13:45-0400 Respiratory rate 12 /min Kvng Ball Other [employer] Other 03-04-2023 13:45-0400 Systolic blood pressure 117 mm[Hg] Kvng Ball Other [employer] Other 02-22-2023 11:00-0400 Body height 152.4 cm Kvng Ball Other [employer] Other 02-22-2023 11:00-0400 Body mass index (BMI) [Ratio] 28.39 kg/m2 Kvng Ball Other [employer] Other 02-22-2023 11:00-0400 Body weight 65.95 kg Kvng Ball Other [employer] Other 02-22-2023 11:00-0400 Diastolic blood pressure 83 mm[Hg] Kvng Ball Other [facility] [employer] Other 02-22-2023 11:00-0400 Respiratory rate 12 /min Kvng Ball Other [facility] [employer] Other 02-22-2023 11:00-0400 Systolic blood pressure 132 mm[Hg] Kvng Ball Other [facility] [employer] Other 01-24-2023 09:18-0400 Diastolic blood pressure 72 mm[Hg] DO Kvng Ball Work Phone: [facility] 01-24-2023 09:18-0400 Heart rate 56 /min DO Kvng Ball Work Phone: [facility] 01-24-2023 09:18-0400 Respiratory rate 14 /min DO Kvng Ball Work Phone: [facility] 01-24-2023 09:18-0400 SaO2% (BldA) [Mass fraction] 98 % DO Kvng Ball Work Phone: [facility] 01-24-2023 09:18-0400 Systolic blood pressure 126 mm[Hg] DO Kvng Ball Work Phone: [facility] 01-24-2023 07:44-0400 Body height 154.94 cm DO Kvng Ball Work Phone: [facility] 01-24-2023 07:44-0400 Body temperature 97.8 [degF] DO Kvng Ball Work Phone: [facility] 01-24-2023 07:44-0400 Body weight 65.31 kg DO Kvng Ball Work Phone: [facility] 11-18-2022 12:00-0400 Body height 152.4 cm Kvng Ball Other [facility] [employer] Other 11-18-2022 12:00-0400 Body mass index (BMI) [Ratio] 28.74 kg/m2 Kvng Ball Other [facility] [employer] Other 11-18-2022 12:00-0400 Body weight 66.77 kg Kvng Ball Other [facility] [employer] Other 11-18-2022 12:00-0400 Diastolic blood pressure 82 mm[Hg] Kvng Ball Other [facility] [employer] Other 11-18-2022 12:00-0400 Respiratory rate 12 /min Kvng Ball Other [facility] [employer] Other 11-18-2022 12:00-0400 Systolic blood pressure 125 mm[Hg] Kvng Ball Other [employer] Other 10-28-2022 14:05-0400 Diastolic blood pressure 73 mm[Hg] DO Kvng Ball Work Phone: [facility] 10-28-2022 14:05-0400 Heart rate 60 /min DO Kvng Ball Work Phone: [facility] 10-28-2022 14:05-0400 Respiratory rate 18 /min DO Kvng Ball Work Phone: [facility] 10-28-2022 14:05-0400 SaO2% (BldA) [Mass fraction] 96 % DO Kvng Ball Work Phone: [facility] 10-28-2022 14:05-0400 Systolic blood pressure 117 mm[Hg] DO Kvng Ball Work Phone: [facility] 10-28-2022 11:42-0400 Body height 154.94 cm DO Kvng Ball Work Phone: [facility] 10-28-2022 11:42-0400 Body temperature 97.9 [degF] DO Kvng Ball Work Phone: [facility] 10-28-2022 11:42-0400 Body weight 65.77 kg DO Kvng Ball Work Phone: [facility] 10-12-2022 15:00-0400 Body height 152.4 cm Kvng Ball Other [employer] Other 10-12-2022 15:00-0400 Body mass index (BMI) [Ratio] 28.78 kg/m2 Kvng Ball Other [employer] Other 10-12-2022 15:00-0400 Body weight 66.86 kg Kvng Ball Other [employer] Other 10-12-2022 15:00-0400 Diastolic blood pressure 80 mm[Hg] Kvng Ball Other [employer] Other 10-12-2022 15:00-0400 Respiratory rate 12 /min Kvng Ball Other [employer] Other 10-12-2022 15:00-0400 Systolic blood pressure 116 mm[Hg] Kvng Ball Other [employer] Other 07-27-2022 14:38-0500 Body height 152.4 cm [...] 69 mm[Hg] DO Kvng Ball Work Phone: [facility] 07-26-2022 09:19-0500 Heart rate 59 /min DO Kvng Ball Work Phone: [facility] 07-26-2022 09:19-0500 Respiratory rate 16 /min DO Kvng Ball Work Phone: [facility] 07-26-2022 09:19-0500 SaO2% (BldA) [Mass fraction] 98 % DO Kvng Ball Work Phone: [facility] 07-26-2022 09:19-0500 Systolic blood pressure 111 mm[Hg] DO Kvng Ball Work Phone: [facility] 07-26-2022 07:19-0500 Body height 154.94 cm DO Kvng Ball Work Phone: [facility] 07-26-2022 07:19-0500 Body temperature 97.7 [degF] DO Kvng Ball Work Phone: [facility] 07-26-2022 07:19-0500 Body weight 66.22 kg DO Kvng Ball Work Phone: [facility] 07-21-2022 14:30-0500 Body height 152.4 cm Kvng Ball Other [facility] Other 07-21-2022 14:30-0500 Body mass index (BMI) [Ratio] 28.82 kg/m2 Kvng Ball Other [employer] Other 07-21-2022 14:30-0500 Body weight 66.95 kg Kvng Ball Other [employer] Other 07-21-2022 14:30-0500 Diastolic blood pressure 70 mm[Hg] Kvng Ball Other [employer] Other 07-21-2022 14:30-0500 Respiratory rate 12 /min Kvng Ball Other [employer] Other 07-21-2022 14:30-0500 Systolic blood pressure 118 mm[Hg] Kvng Ball Other [employer] Other 05-25-2022 13:02-0500 Body temperature 96.91 [degF] Chair Ryan Work Phone: [facility] 05-25-2022 13:02-0500 Diastolic blood pressure 88 mm[Hg] Chair Savanna Work Phone: [facility] 05-25-2022 13:02-0500 Heart rate 68 /min Chair Ryan Work Phone: [facility] 05-25-2022 13:02-0500 Respiratory rate 18 /min Chair Savanna Work Phone: [facility] 05-25-2022 13:02-0500 SaO2% (BldA) [Mass fraction] 100 % Chair Savanna Work Phone: [facility] 05-25-2022 13:02-0500 Systolic [...] Date Encounter Type Care Provider Facility Start: 04-09-2024 End: 04-09-2024 ambulatory Charlotte Levi MD [facility]: [facility] Start: 04-02-2024 End: 04-02-2024 ambulatory Charlotte Levi MD Facility: [facility] Start: 03-29-2024 End: 03-29-2024 ambulatory LORELEI HURTADO Not Available Start: 03-20-2024 End: 03-20-2024 ambulatory NICHO MARC Not Available Start: 03-16-2024 End: 03-16-2024 Patient encounter procedure DO Kvng Melgar Work Phone: [facility] [place] Work Phone: Start: 03-16-2024 End: 03-16-2024 ambulatory DO Kvng Melgar Work Phone: [facility] Work Phone: Start: 03-01-2024 End: 03-01-2024 ambulatory LORELEI HURTADO Not Available Start: 01-31-2024 End: 01-31-2024 ambulatory LORELEI HURTADO Not Available Start: 01-25-2024 End: 01-25-2024 ambulatory TED GILMORE Not Available Start: 01-02-2024 End: 01-02-2024 Patient encounter procedure DO Kvng Melgar Work Phone: [facility] Work Phone: Start: 09-15-2023 End: 09-15-2023 ambulatory Imad Asaad Other [employer] Other Start: 09-15-2023 Telephone encounter Imad Asaad [facility] Start: 08-10-2023 End: 08-10-2023 ambulatory Imad Asaad Other [employer] Other Start: 08-10-2023 Office outpatient vi sit 25 minutes Imad Asaad [facility] Start: 08-01-2023 End: 08-01-2023 ambulatory Kvng Melgar Other [employer] Other Start: 08-01-2023 Telephone encounter Kvng RODRIGES [facility] Start: 07-25-2023 End: 07-25-2023 Patient encounter procedure DO Kvng Melgar Work Phone: [facility] Work Phone: Start: 07-25-2023 End: 07-25-2023 ambulatory DO Kvng Melgar Work Phone: [facility] Work Phone: Start: 07-06-2023 End: 07-06-2023 ambulatory Imad Asaad Other [employer] Other Start: 07-06-2023 Telephone encounter Imad Asaad [facility] Start: 06-20-2023 End: 06-20-2023 ambulatory Kvng Melgar Other [employer] Other Start: 06-20-2023 Telephone encounter Kvng Ball [facility] Start: 06-15-2023 End: 06-15-2023 ambulatory Kvng Melgar Other [employer] Other Start: 06-15-2023 Telephone encounter Kvng Melgar [facility] Start: 06-08-2023 End: 06-08-2023 ambulatory Kvng Ball Other [employer] Other Start: 06-08-2023 Telephone encounter Kvng Ball [facility] Start: 05-31-2023 End: 05-31-2023 ambulatory Kvng Ball Other [employer] Other Start: 05-31-2023 Telephone encounter Kvng Melgar [facility] Start: 05-29-2023 End: 05-29-2023 ambulatory Kvng Melgar Other [employer] Other Start: 05-29-2023 Telephone encounter Kvng Ball [facility] Start: 05-28-2023 End: 05-28-2023 ambulatory Kvng Ball Other [employer] Other Start: 05-28-2023 Telephone encounter Kvgn Melgar [facility] Start: 05-27-2023 End: 05-27-2023 ambulatory Kvng Ball Other [employer] Other Start: 05-27-2023 Office outpatient vi sit 25 minutes Kvng Ball [facility] Start: 05-25-2023 End: 05-25-2023 ambulatory Kvng Ball Other [employer] Other Start: 05-25-2023 Telephone encounter Kvng Ball [facility] Start: 05-20-2023 End: 05-20-2023 ambulatory Kvng Ball Other [employer] Other Start: 05-20-2023 Telephone encounter Kvng Ball [facility] Start: 05-10-2023 End: 05-10-2023 ambulatory Imad Asaad Other [employer] Other Start: 05-10-2023 Telephone encounter Imad Asaad [facility] Start: 04-26-2023 End: 04-26-2023 ambulatory Kvng Ball Other [employer] Other Start: 04-26-2023 Nursing evaluation o f patient and report Kvng Melgar [facility] Start: 03-23-2023 End: 03-23-2023 ambulatory Imad Asaad Other [employer] Other Start: 03-23-2023 Telephone encounter Imad Asaad [facility] Start: 03-10-2023 End: 03-10-2023 ambulatory Kvng Melgar Other [employer] Other Start: 03-10-2023 Telephone encounter Kvng Melgar [facility] Start: 03-07-2023 End: 03-07-2023 ambulatory Kvng Ermelinda Other [employer] Other Start: 03-07-2023 Telephone encounter Kvng Melgar [facility] Start: 03-04-2023 End: 03-04-2023 ambulatory Kvng Ermelinda Other [employer] Other Start: 03-04-2023 Office outpatient vi sit 15 minutes Kvng Ball [facility] Start: 02-28-2023 End: 02-28-2023 ambulatory Kvng Ball Other [employer] Other Start: 02-28-2023 Telephone encounter Kvng Ball [facility] Start: 02-22-2023 End: 02-22-2023 ambulatory Kvng Ball Other [employer] Other Start: 02-22-2023 Office outpatient vi sit 25 minutes Kvng Ball [facility] Start: 02-21-2023 End: 02-21-2023 ambulatory Kvng Ball Other [employer] Other Start: 02-21-2023 Telephone encounter [facility] Start: 01-24-2023 End: 01-24-2023 ambulatory Sadiq Beckham Other [employer] Other Start: 01-24-2023 Telephone encounter Sadiq Pollard [facility] Start: 01-24-2023 End: 01-24-2023 Admission to same day surgery center DO Kvng Melgar Work Phone: [facility] Work Phone: Start: 12-28-2022 End: 12-28-2022 ambulatory Kvng Melgar Other [employer] Other Start: 12-28-2022 Telephone encounter [facility] Start: 11-19-2022 End: 11-19-2022 ambulatory Kvng Melgar Other [employer] Other Start: 11-19-2022 Telephone encounter [facility] Start: 11-18-2022 End: 11-18-2022 ambulatory Kvng Melgar Other [employer] Other Start: 11-18-2022 Patient encounter procedure Kvng Melgar [facility] Start: 11-01-2022 End: 11-01-2022 ambulatory Imad Asaad Other [employer] Other Start: 11-01-2022 Telephone encounter Imad Asaad [facility] Start: 10-28-2022 Telephone encounter Sadiq Pollard [facility] Start: 10-28-2022 End: 10-28-2022 Admission to same day surgery center DO Kvng Ball Work Phone: [facility] Work Phone: Start: 10-28-2022 End: 10-28-2022 ambulatory DO Kvng Melgar Work Phone: [facility] Work Phone: Start: 10-21-2022 End: 10-21-2022 ambulatory Kvng Melgar Other [employer] Other Start: 10-21-2022 Telephone encounter Kvng Armstrong [facility] Start: 10-20-2022 End: 10-21-[address] KVNG MELGAR Facility:[facility] Start: 10-12-2022 End: 10-12-2022 ambulatory Kvng Melgar Other [employer] Other Start: 10-12-2022 Office outpatient vi sit 15 minutes Kvng Melgar [facility] Start: 10-12-2022 Telephone encounter Kvng Armstrong [employer] Start: 09-27-2022 End: 10-13-[address] KVNG MELGAR Facility: Start: 07-29-2022 End: 07-29-2022 ambulatory Kvng Melgar Other [employer] Other Start: 07-29-2022 Telephone encounter Kvng Armstrong [facility] Start: 07-27-2022 End: 07-27-2022 ambulatory KVNG MELGAR Facility:[facility] Start: 07-27-2022 End: 07-27-2022 Office outpatient visit 15 minutes Mavis Santiago MD Work Phone: Hematology/Oncology Comment on above: Iron deficiency (Danielle bethany Dx) Start: 07-26-2022 Telephone encounter Jeyson Diaz [facility] Start: 07-26-2022 End: 07-26-2022 Admission to same day surgery center DO Kvng Melgar Work Phone: [facility] Work Phone: Start: 07-26-2022 End: 07-26-2022 ambulatory DO Kvng Melgar Work Phone: [facility] Work Phone: Start: 07-22-2022 End: 07-22-2022 Patient encounter procedure DO Kvng Melgar Work Phone: [facility] Work Phone: Start: 07-21-2022 End: 07-21-2022 ambulatory Kvng Melgar Other [facility] Other Start: 07-21-2022 Office outpatient vi sit 25 minutes [facility] Start: 06-02-2022 Social Work Marcia Ramires BOG WORKER Hematolo gy/Oncology Start: 05-25-2022 Telephone encounter Financial [...] Dx) Start: 05-18-2022 Telephone encounter Adebayo Armstrong [employer] Start: 05-17-2022 Chart abstracting Mavis abraham MD [...] . Facility:[facility] Start: 12-18-2021 End: 12-19-2021 ambulatory KVNG MELGAR Facility:[facility] Start: 06-09-2021 Adult health examination Kvng Melgar Other [employer] Other Start: 08-02-2019 Preoperative cardiovascular examination Kvng Melgar Other [employer] Other Start: 05-31-2019 Gynecological examination normal Kvng Melgar Other [employer] Other Start: 01-05-2018 End: 01-06-2018 Evaluation and [...] for malign ant neoplasm of breast Adebayo Javedginalashonda Other Screening for malign ant neoplasm of breast Kvng Melgar Other Plan of Treatment Date Care Activity Detail Author Start: 01-24-2023 End: 03-26-2023 CBC W Auto Differential panel - Blood CBC + DIFF Lab Routine Iron deficiency Expected: 01/24/2023 (Approximate), Expires: 03/26/2023 [facility] Work Phone: Comment on above: Expected: 01/24/2023 (Approximate), Expires: 03/26/2023 Start: 01-24-2023 End: 07-27-2023 Ferritin [Mass/volume] in Serum or Plasma FERRITIN BLD Lab Routine Iron deficiency Expected: 01/24/2023 (Approximate), Expires: 07/27/2023 [facility] Work Phone: Comment on above: Expected: 01/24/2023 (Approximate), Expires: 07/27/2023 Start: 01-24-2023 End: 07-27-2023 Iron and Iron binding capacity panel - Serum or Plasma IRON + TIBC Lab Routine Iron deficiency Expected: 01/24/2023 (Approximate), Expires: 07/27/2023 [facility] Work Phone: Comment on above: Expected: 01/24/2023 (Approximate), Expires: 07/27/2023 Start: 01-24-2023 [facility] Start: 10-28-2022 [facility] Start: 07-27-2022 End: 09-26-2022 CBC W Auto Differential panel - Blood CBC + DIFF Lab Routine Iron deficiency Expected: 07/27/2022 (Approximate), Expires: 09/26/2022 [facility] Work Phone: Comment on above: Expected: 07/27/2022 (Approximate), Expires: 09/26/2022 Start: 07-27-2022 End: 05-18-2023 Ferritin [Mass/volume] in Serum or Plasma FERRITIN BLD Lab Routine Iron deficiency Expected: 07/27/2022 (Approximate), Expires: 05/18/2023 [facility] Work Phone: Comment on above: Expected: 07/27/2022 (Approximate), Expires: 05/18/2023 Start: 07-27-2022 End: 05-18-2023 Iron and Iron binding capacity panel - Serum or Plasma IRON + TIBC Lab Routine Iron deficiency Expected: 07/27/2022 (Approximate), Expires: 05/18/2023 [facility] Work Phone: Comment on above: Expected: 07/27/2022 (Approximate), Expires: 05/18/2023 Start: 07-27-2022 End: 09-26-2022 RETIC COUNT RETIC COUNT Lab Routine Iron deficiency Expected: 07/27/2022 (Approximate), Expires: 09/26/2022 [facility] Work Phone: Comment on above: Expected: 07/27/2022 (Approximate), Expires: 09/26/2022 Start: 07-26-2022 [facility] Start: 07-11-2022 ADVANCE DIRECTIVE DISCUSSION ADVANCE DIRECTIVE DISCUSSION [facility] Start: 07-11-2022 DEPRESSION ASSESSMENT DEPRESSION ASS [facility] Start: 03-11-2022 Influenza vaccination INFLUENZA (#1) [facility] Start: 01-30-2022 COVID-19 VACCINE (5 - Booster for Pfizer series) COVID-19 VACCINE (5 - Booster for Pfizer series) [facility] Start: 07-11-2021 ADVANCE DIRECTIVE DISCUSSION ADVANCE DIRECTIVE DISCUSSION [facility] Start: 07-11-2021 [facility] Start: 03-29-2019 PNEUMOCOCCAL: 65+ (2 - PCV) PNEUMOCOCCAL: 65+ (2 - PCV) [facility] Start: 11-15-2017 DIABETES SCREEN DIABETES SCREEN [place] [...] VACCI NE (#1) [facility] Patient Education [facility] Work Phone: XR Knee - right 4 Views [facility] Immunizations Immunization Date Immunization Notes Care Provider Saurabh rico 04-26-2023 influenza, high dose seasonal, preservative-free Kvng Melgar Other [employer] Other 04-26-2023 influenza virus vaccine, unspecified formulation DO Kvng Melgar Work Phone: [facility] 10-19-2022 COVID-19 Pfizer (bivalent) Kvng Melgar Other [facility] 12-05-2021 COVID-19 Pfizer Kvng Pawan l Other [facility] 12-05-2021 COVID-19 Vaccine Pfi zer - Documentation Purposes Only Kvng Melgar Other [facility] 04-14-2021 COVID-19 Vaccine Pfi zer - Documentation Purposes Only Kvng Melgar Other [facility] 04-06-2021 influenza virus vaccine, split virus (incl. purified surface antigen) Kvng Melgar Other [facility] Other 04-06-2021 influenza virus vaccine, unspecified formulation DO Kvng Melgar Work Phone: [facility] 04-06-2021 influenza, high-dose , quadrivalent vaccine (FLUZONE HIGH DOSE QUADRIVALENT) Mavis Santiago MD Work Phone: [facility] 08-27-2020 COVID-19 Vaccine Pfi zer - Documentation Purposes Only Kvng Melgar Other [facility] 08-04-2020 COVID-19 Vaccine Pfi zer - Documentation Purposes Only Kvng Melgar Other [facility] 04-04-2020 influenza virus vaccine, split virus (incl. purified surface antigen) Kvng Melgar Other [facility] Other 04-04-2020 influenza virus vaccine, unspecified formulation DO Kvng Melgar Work Phone: [facility] 04-04-2020 influenza, high-dose , quadrivalent vaccine (FLUZONE HIGH DOSE QUADRIVALENT) Mavis Santiago MD Work Phone: [facility] 04-18-2019 influenza, injectabl e, quadrivalent, preservative free Mavis Santiago MD Work Phone: [facility] 03-22-2019 Seasonal trivalent influenza vaccine, adjuvanted, preservative free Mavis Santiago MD Work Phone: [facility] 04-13-2018 influenza virus vaccine, split virus (incl. purified surface antigen) Kvng Melgar Other [facility] Other 04-13-2018 influenza virus vaccine, unspecified formulation DO Kvng Melgar Work Phone: [facility] 04-13-2018 Seasonal trivalent influenza vaccine, adjuvanted, preservative free Mavis Santiago MD Work Phone: [facility] 03-29-2018 pneumococcal polysaccharide vaccine, 23 valent Mavis Santiago MD Work Phone: [facility] 05-25-2017 Seasonal trivalent influenza vaccine, adjuvanted, preservative free Mavis Santiago MD Work Phone: [facility] 04-27-2016 influenza virus vaccine, split virus (incl. purified surface antigen) Kvng Melgar Other [employer] [facility] [employer] Other 04-27-2016 influenza virus vaccine, unspecified formulation DO Kvng Melgar Work Phone: [facility] 04-27-2016 influenza, high dose seasonal, preservative-free Mavis Santiago MD Work Phone: [facility] 04-23-2015 influenza, injectabl e, quadrivalent, preservative free Mavis Santiago MD Work Phone: [facility] 04-23-2015 pneumococcal polysaccharide vaccine, 23 valent Mavis Santiago MD Work Phone: [facility] 04-18-2015 influenza virus vaccine, split virus (incl. purified surface antigen) Kvng Melgar Other [facility] Other 04-18-2015 influenza virus vaccine, unspecified formulation DO Kvng Melgar Work Phone: [facility] 04-18-2015 pneumococcal conjuga te vaccine, 13 valent Kvng Melgar Other [facility] 05-21-2014 influenza, injectabl e, quadrivalent, contains preservative Adebayo Pan Other [facility] 04-26-2014 tetanus and diphther ia toxoids, adsorbed, preservative free, for adult use (5 Lf of tetanus toxoid and 2 Lf of diphtheria toxoid) Kvng Melgar Other [facility] 05-09-2013 pneumococcal polysaccharide vaccine, 23 valent Kvng Melgar Other [facility] 05-09-2013 tetanus and diphther ia toxoids, adsorbed, preservative free, for adult use (5 Lf of tetanus toxoid and 2 Lf of diphtheria toxoid) Kvng Melgar Other [facility] Payers Date Payer Category Payer Self-pay [id number] 2014 Private Health Insurance [id number] 2003 Medicare [id number] 2003 Unknown 1959 Medicare [id number] 1959 Private Health Insurance [id number] 1938 Unknown [id number] 2.16.84 [id number] 1938 Unknown [id number] 2.16.84 0.1.584626.3.579.2.593 1938 Unknown [id number] 2.16.84 0.1.180049.3.579.2.593 1938 Unknown [id number] 2.16.84 0.1.306760.3.579.2.593 1938 Unknown [id number] 2.16.84 0.1.604806.3.579.2.593 1938 Unknown [id number] 2.16.84 0.1.080822.3.579.2.593 1938 Unknown [id number] 2.16.84 0.1.851892.3.579.2.593 1938 Unknown [id number] 2.16.84 0.1.168002.3.579.2.593 1938 Unknown [id number] 2.16.84 0.1.057699.3.579.2.593 1938 Unknown [id number] 2.16.84 0.1.188754.3.579.2.1259 1938 Unknown [id number] 2.16.84 0.1.078395.3.579.2.1259 1938 Unknown [id number] 2.16.84 0.1.819882.3.579.2.1259 1938 Unknown [id number] 2.16.84 0.1.525965.3.579.2.1259 1938 Unknown [id number] 2.16.84 0.1.068207.3.579.2.1259 1938 Unknown [id number] 2.16.84 0.1.798361.3.579.2.1259 1938 Unknown [id number] 2.16. [id number] 1938 Unknown [id number] 2.16. [id number] Medicare [id number] Unknown [id number] 2.16.8 [id number] Unknown [id number] 2.16.8 [id number] Social History Date Type Detail Facility Start: 01-03-2015 End: 05-27-2023 Tobacco smoking status NHIS Ex-smoker [facility] History of tobacco use Current smoker [facility] Start: 01-03-2015 Tobacco use and exposure Smokeless tobacco non-user [facility] Start: 05-17-2022 End: 07-27-2022 Alcohol intake Ex-drinker (finding) [facility] Start: 1940 Sex Assigned At Not on file C [facility] Start: 05-08-2022 End: 05-25-2022 Exposure to SARS-CoV-2 (event) Not sure [facility] Start: 07-26-2022 End: 10-28-2022 Tobacco smoking status NHIS Never smoked tobacco (finding) [facility] Start: 1940 Sex Assigned At Female F [facility] Sex Assigned At Sex Assigned At Bir th [facility] Other Goals Date Patient Goal Desired Activity /State Clinical Notes 11-28-2019 to 08-10-2023 Note Date & Type Note Facility 08-10-2023 Evaluation note Encounter Date Diagnosis Assessment Notes Jul, Epigastric pain (ICD-10 - R10.13) Jul, Constipation (ICD-10 - K59.00) Oct, Nausea (ICD-10 - R11.0) Nausea [facility] Other 12-11-2023 Evaluation note* Encounter Date Diagnosis Assessment Notes Treatment Notes Treatment Clinical Notes Jun, Lumbar spondylosis (ICD-10 - M47.816) [facility] Other 11-21-2023 Evaluation note* Encounter Date Diagnosis Assessment Notes Treatment Notes Treatment Clinical Notes May, Claustrophobia (ICD-10 - F40.240) [facility] Other 11-17-2023 Evaluation note* Encounter Date Diagnosis [...] May, Other specified hypothyroidism (ICD-10 - E03.8) [facility] Other 11-10-2023 Evaluation note* Encounter Date Diagnosis Assessment Notes Treatment Notes Treatment Clinical Notes May, Lumbar spondylosis (ICD-10 - M47.816) [facility] Other 09-13-2023 Evaluation note* Encounter Date Diagnosis Assessment Notes Treatment Notes Treatment Clinical Notes Mar, Chronic superficial gastritis with bleeding (ICD-10 - K29.31) [facility] Other 08-25-2023 Evaluation note* Encounter Date Diagnosis Assessment Notes Treatment Notes Treatment Clinical Notes Feb, Allergic contact dermatitis due to plants, except food (ICD-10 - L23.7) Cool compresses, topical steroids and begin Prednisone. _update on Feb, Cellulitis of left upper extremity (ICD-10 - L03.114) Elevate and begin antibiotics, update on Tuesday [facility] Other 08-15-2023 Evaluation note* Encounter Date Diagnosis [...] exercise for 30 minutes, 3-5 times weekly. [facility] Other 08-14-2023 Evaluation note* Encounter Date Diagnosis Assessment Notes Treatment Notes Treatment Clinical Notes Feb, Lumbar spondylosis (ICD-10 - M47.816) [facility] Other 06-20-2023 Evaluation note* Encounter Date Diagnosis Assessment Notes Treatment Notes Treatment Clinical Notes Dec, Autoimmune thyroiditis (ICD-10 - E06.3) [facility] Other 05-12-2023 Evaluation note* Encounter Date Diagnosis Assessment Notes Treatment Notes Treatment Clinical Notes November, Lumbar spondylosis (ICD-10 - M47.816) [facility] Other 05-11-2023 Evaluation note* Encounter Date Diagnosis [...] E03.8) November, Lumbar spondylosis (ICD-10 - M47.816) [facility]EDURE: XR HIP LT 2 [...] Electronically authenticated by: ANTHONY GUIDRY Date: 2022-10-20 15:40[facility]04-04-2023 Evaluation note* Encounter Date Diagnosis [...] mammogram for breast cancer (ICD-10 - Z12.31) [facility] Other 01-17-2023 NoteHNO ID: [id number] Author: Mavis Santiago MD Service: ? Author Type: Physician Type: Progress Notes Filed: 07/27/2022 2:56 PM Note Text: PATIENT NAME: Tangela Banks [facility] NO.: [id number] ATTENDING PHYSICIAN: Mavis Santiago MD DATE OF [...] Status 07/27/2022 18.0 (H) (more content not included)...[facility] 07-27-2022 History of Present illness Narrative* Mavis Santiago MD - 07/27/2022 2:48 PM EST PATIENT NAME: aTngela Trinidad [facility] NO.: [id number] ATTENDING PHYSICIAN: Mavis Santiago MD DATE OF [...] 07/27/2022 3.25 1.00 - 4.00 k/uL Final Sumner% Date Value Ref Range Status 07/27/2022 14.0 % Final Abs Sumner Date Value Ref Range Status 07/27/2022 1.25 [...] do not hesitate to contact me at [phone]. Mavis Santiago MD Hematology/Medical Oncology [facility] spent a total of 20 minutes on the date of the service which included preparing to see the patient, cqre-mm-phyh patient care, completing clinical documentation, obtaining and/or reviewing separately obtained history, performing a medically appropriate examination, counseling and educating the pat ient/family/caregiver, and ordering medications, tests, or procedures. CC: Kvng Melgar DO [facility]* Encounter Date Diagnosis Assessment Notes Treatment Notes Treatment Clinical Notes Jul, Acute gastric ulcer without hemorrhage or perforation (ICD-10 - K25.3) [employer] Other [id number] Procedure [facility]01-11-2023 Evaluation note* Encounter Date Diagnosis [...] Healty diet, keep active, consistent sleep routine [employer] Other 11-23-2022 NoteHNO ID: [id number] Author: MONY Mart Service: ? Author Type: Script Editor Type: Progress Notes Filed: 06/02/2022 3:17 PM Note Text: Patient appears on the First Time Treatment List for a non-oncology treatment. No psychosocial assessment is indicated. KAYLEY Mart-[facility]11-23-2022 History of Present illness Narrative* MONY Mart - 06/02/2022 3:16 PM EST Patient appears on the First Time Treatment List for a non-oncology treatment. No psychosocial assessment is indicated. KALYEY Mart-Aida [facility] Miscellaneous Notes* Telephone Encounter - Mohit Tapia - 05/25/2022 3:32 PM EST 1st report of treatment-non oncology regimen (Monoferric) Patient holds Medicare coverage. No FA available at this time. [facility]22 NoteHNO ID: [id number] Author: Mavis Santiago MD Service: ? Author Type: Physician Type: Progress Notes Filed: 05/18/2022 4:08 PM Note Text: PATIENT NAME: Tangela Trinidad [facility] NO.: [id number] ATTENDING PHYSICIAN: Mavis Santiago MD DATE OF [...] Final Lymph% Date Va (more content not included)...[facility]11-08-2022 History of Present illness Narrative* Mavis Santiago MD - 05/18/2022 3:51 PM EST PATIENT NAME: Tangeal Trinidad CLINIC NO.: [id number] ATTENDING PHYSICIAN: Mavis Santiago MD DATE OF SERVICE: May 18, [address] Knvg Melgar here is an update on a [...] 05/11/2018 2.74 1.00 - 4.00 k/uL Final Sumner% Date Value Ref Range Status 05/11/2018 12.1 % Final Abs Sumner Date Value Ref Range Status 05/11/2018 1.12 [...] do not hesitate to contact me at [phone]. Mavis Santiago MD Hematology/Medical Oncology [facility] I spent a total of 30 minutes on the date of the service which included preparing to see the patient, mnev-zc-qacq patient care, completing clinical documentation, obtaining and/or reviewing separately obtained history, performing a medically appropriate examination, counseling and educating the pat ient/family/caregiver, and ordering medications, tests, or procedures. Medical Decision Making: Medical Decision Making Level: 1 - N/A CC: Kvng Melgar DO documented in this encounterB[facility]11-19-2020 Progress note Author [facility] May 29, 2020 11:30am Note Date/Time May 29, 2020 11:29am [facility] [place] [address] Hem/Onc Follow Up Note - OP Signed Patient: Tangela Trinidad MR#: [id number] : 1940 Acct:[id number] Age/Sex: 80 / F Type: REG RCR [...] Rash Penicillins Allergy (Verified 11/28/19 10:23) Hives Nozkswn-Reu-Dnd Reductase Inhibitor Allergy (Verified 11/28/19 10:23) Unknown [...] Neut % (Auto) 50.8,Lymph % (Auto) 30.1, Sumner % (Auto) 14.9, Eos % (Auto) 3.3, Baso % (Auto) 0.9, Neut # (Auto) 4.4, Lymph # (Auto) 2.6, Sumner # (Auto) 1.3 H, Eos # (Auto) [...] for coordination of care (as documented) and ynxd-jy-wnso counseling of patient and/or family. Dictated By: Nicho Salcedo MD DD/ [id number] Signed By: <Electronically signed by MD Nicho Salcedo> 05/29/20 1130 [facility] Work Phone: [phone]) 608-600805-20-2020 Progress note Author Nicho Salcedo [facility] November 28, 2019 12:52pm Note Date/Time November 28, 2019 12:50 pm [facility] [place] [address] Hem/Onc Follow Up Note - OP Signed Patient: Tangela Trinidad MR#: [id number] : 1940 Acct:[id number] Age/Sex: 79 / F Type: REG RCR [...] feels fine. She has no complaints today. [facility] - Social History Smoking Status: Never smoker Home Medications & Allergies Allergies Cephalosporins Allergy (Verified 11/28/19 10:23) Unknown Reaction nitrofurantoin [From Macrodantin] Allergy (Verified 11/28/19 10:23) Rash Penicillins Allergy (Verified 11/28/19 10:23) Hives Xxlujia-Bvy-Mvz Reductase Inhibitor Allergy (Verified 11/28/19 10:23) Unknown [...] Neut % (Auto) 49.9,Lymph % (Auto) 27.3, Sumner % (Auto) 15.1, Eos % (Auto) 6.5, Baso % (Auto) 1.2, Neut # (Auto) 4.3, Lymph # (Auto) 2.4, Sumner # (Auto) 1.3 H, Eos # (Auto) [...] for coordination of care (as documented) and ssmz-pz-egqy counseling of patient and/or family. Dictated By: Nicho Salcedo MD DD/ [id number] Signed By: <Electronically signed by MD Nicho Salcedo> 11/28/19 1252 [facility] Work Phone: Evaluation note* Diagnosis Iron deficiency- Primary Iron deficiency anemia, unspecified documented in this encounter [facility] note* Diagnosis Iron deficiency anemia, unspecified iron deficiency anemia type- Primary Iron deficiency Iron deficiency anemia, unspecified [facility] Diagnosis Iron deficiency- Primary Iron deficiency anemia, unspecified [facility] noteNo assessment information availableMemorial [facility] Work Phone: Evaluation noteNo [employer] Other Evaluation note* Diagnosis Onset Date Resolution [...] acute Medicare annual wellness visit, subsequent noneactive [facility] Work Phone: History and physical note Author Jeyson Diaz [facility] July 26, 2022 8:09am Note Date/Time July 26, 2022 8 :09am [facility] [address] [place] [address] Gastroenterology H&P Signed Patient: Tangela Trinidad MR#: [id number] : 1940 Acct:[id number] Age/Sex: 82 / F Adm Date: 3 Loc: Room: Type: [facility] Attending Dr: Jeyson Diaz MD Copies [...] signed by Jeyson Diaz MD> 07/26/22808 [facility] Work Phone: History and physical note Author Jeyson Diaz [facility] October 28, 2022 1:13pm Note Date/Time October 28, 2022 1:1 3pm [facility] [address] [place] [address] Gastroenterology H&P Signed Patient: Tangela Trinidad MR#: [id number] : 1940 Acct:[id number] Age/Sex: 82 / F Adm Date: 3 Loc: Room: Type: [facility] Attending Dr: Jeyson Diaz MD Copies [...] signed by Jeyson Diaz MD> 10/28/22 1313 [facility] Work Phone: History general Narrative - Reported* Type Description Date Medical History Cervical spondylosis Medical History Vitamin D deficiency Medical History Hyponatremia Medical History Malaise Medical History Fatigue Medical History Depression screening Medical History Encounter for screening breast e xamination Medical History Leukocytosis Medical History 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 Medical History Essential hypertension Medical History [...] History colonoscopy 07/26/22 Hospitalization History see above TelePharm Other History general Narrative - Reported* Type Description Date Medical History Cervical spondylosis Medical History Vitamin D deficiency Medical History Hyponatremia Medical History [place]aise Medical History Fatigue Medical History Depression screening Medical History Encounter for screening breast e xamination Medical History Leukocytosis Medical History Chronic cgdk-[id number]-54 syndrome Medical History Essential hypertension Medical History [...] without hemorrhage Medical History Acquired autoimmune hypothyroidi Medical History Chronic venous insufficiency Medical History [...] w/ biopsy 10/2022 Hospitalization History see above TelePharm Other Hisnice general Narrative - Reported* Type Description Date Medical History Cervical spondylosis Medical History Vitamin D deficiency Medical History Hyponatremia Medical History [place]aise Medical History Fatigue Medical History Depression screening Medical History Encounter for screening breast e xamination Medical History Leukocytosis Medical History Chronic yamp-[id number] syndrome Medical History Essential hypertension Medical History [...] without hemorrhage Medical History Acquired autoimmune hypothyroidi Medical History Chronic venous insufficiency Medical History [...] History EGD 01/2023 Hospitalization History see above TelePharm Other Hospital Discharge instructions Additional Instructions DISCHARGE [...] NOT operate machinery such as power tools, [employer] mowers, snow blowers, sewing machines, etc. for [...] stomach, liquids high in sugar content (soda, Atrun-Aid, non-acid juices) are recommended. - You can resume normal activities tomorrow. FOLLOW UP & RECOMMENDATIONS: -Repeat EGD after 12 weeks to evaluate ulcer healing. -Start Protonix 40 mg daily 30 minutes before breakfast -Notify the doctor if you have any problems. -No need for repeat endoscopy. -Follow up with PCP. - Office number [phone]. [facility] Work Phone: Hospital Discharge instructions [...] NOT operate machinery such as power tools, [employer] mowers, snow blowers, sewing machines, etc. for [...] problems. -Follow up with PCP. -Office number [phone]. [facility] Work Phone: Hospital Discharge instructions [...] NOT operate machinery such as power tools, [employer] mowers, [employer] blowers, sewing machines, etc. for 24 hours. [...] problems. -Follow up with PCP. -Office number [phone]. [facility] Work Phone: Summary Purpose Family History [...] DATE CREATED AUTHOR AUTHOR'S ORGANIZ ATION 08/04/2022 [facility] DATE CREATED AUTHOR AUTHOR'S ORGANIZ ATION 11/10/2022 [facility] DATE CREATED AUTHOR AUTHOR'S ORGANIZ ATION 03/25/2024 [facility] DATE CREATED AUTHOR AUTHOR'S ORGANIZ ATION 03/31/2024 [facility] DATE CREATED AUTHOR AUTHOR'S ORGANIZ ATION 04/13/2024 [facility] Source Comments (unrecognize d section and [...] Active Jeyson Diaz MD Attending Provider Active Casting Machine Operator Automatic Relationship Specialty Start Date End Date Kvng Melgar DO PCP - General Internal Medicine 11/14/14 Casting Machine Operator Automatic Relationship Specialty Start Date End Date Kvng Melgar DO PCP - General Internal Medicine 11/14/14 Casting Machine Operator Automatic Relationship Specialty Start Date End Date Kvng Melgar PCP - General Internal Medicine 11/14/14 Casting Machine Operator Automatic Relationship Specialty Start Date End Date Kvng Melgar PCP - General Internal Medicine 11/14/14 Casting Machine Operator Automatic Relationship Specialty Start Date End Date ErmelindaKvng DO PCP - General Internal Medicine 11/14/14 Casting Machine Operator Automatic Relationship Specialty Start Date End Date Kvng MelgarDO PCP - General Internal Medicine 11/14/14 Team [...] anemia type Iron deficiency Mavis Santiago MD [address] [place] [id number] [address] [place] [address] Referral ID Status Reason Start Date Expiration Date V isits Requested Visits Authorized [id number] Authorized 05/18/2022 08/16/2022 99 99 Reason Comments [...] BE BASED ON THE PRIMARY CLINICAL RECORDS. [facility]. provides no warranty or guarantee of the accuracy or completeness of information in this document.
--- NOTE | 2024-04-19 11:37 | P.CN_ITS ---
Consult Note: HPI Data of Consult Patient: known to practice within the last 3 years Consult date: 04/02/24 Requesting Physician: Bre Donis NP Primary Care Provider: Kvng Melgar, Consult Narrative Reason for consult: low back, right leg pain Narrative: 84yof who presents for evaluation. longstanding low back, right leg pain. imaging shows multilevel severe stenosis, worst at l3-4 and l4-5. fused from l5- s1. has engaged in a series of provider directed home exercises >6 weeks without lasting benefit. uses otc pain meds as needed. denies adverse med side effects. recently underwent right L3/4 L4/5 TFESI with mild relief per pt at this time. pain 7/10 in low back and hips, aching all over. continues to have numbness to right lower leg and trouble sleeping. cc:: CC: Bre Donis NP Review of Systems ROS Status of ROS 10 or more systems reviewed and unremark able except as noted in history and below Musculoskeletal Reports: back pain, extremity pain and joint pain PFSH PFSH Medical History (Updated 04/02/24 @ 14:36 by Nidia Perales) Cystocele with rectocele ?N81.10 - Cystocele, unspecified (ICD-10) ?N81.6 - Rectocele (ICD-10) Anemia ?D64.9 - Anemia, unspecified (ICD-10) Hearing deficit ?H91.90 - Unspecified hearing loss, unspecified ear (ICD-10) Stomach ulcer ?K25.9 - Gastric ulcer, unspecified as acute or chronic, without hemorrhage or perforation (ICD-10) History of hypothyroidism ?Z86.39 - Personal history of other endocrine, nutritional and metabolic disease (ICD-10) High blood cholesterol level ?E78.00 - Pure hypercholesterolemia, unspecified (ICD-10) Angina at rest ?I20.89 - Other forms of angina pectoris (ICD-10) High blood pressure ?I10 - Essential (primary) hypertension (ICD-10) Surgical History History of blepharoplasty ?Z98.890 - Other specified postprocedural states (ICD-10) History of total right knee replacement ?Z96.651 - Presence of right artificial knee joint (ICD-10) History of hysterectomy ?Z90.710 - Acquired absence of both cervix and uterus (ICD-10) History of lumbar fusion ?Z98.1 - Arthrodesis status (ICD-10) History of fusion of cervical spine ?Z98.1 - Arthrodesis status (ICD-10) History of appendectomy ?Z90.49 - Acquired absence of other specified parts of digestive tract (ICD- 10) Meds Home Medications and Allergies Home Medications ?Medication ?Instructions ?Recorded ?Confirmed ?Type amlodipine 5 mg tablet 5 mg PO DAILY 04/02/24 04/09/24 History atenolol 25 mg tablet 25 mg PO DAILY 04/02/24 04/09/24 History cholecalciferol (vitamin D3) 10 800 unit PO DAILY 04/02/24 04/09/24 History mcg (400 unit) capsule levothyroxine 112 mcg tablet 112 mcg PO DAILY 04/02/24 04/09/24 History multivitamin (Daily Multi-Vitamin 1 tab PO DAILY 04/02/24 04/09/24 History tablet) pantoprazole 40 mg tablet,delayed 40 mg PO DAILY 04/02/24 04/09/24 History release tramadol 50 mg tablet 50 mg PO DAILY 04/02/24 04/09/24 History Allergies Allergy/AdvReac Type Severity Reaction Status Date / Time Penicillins Allergy Unknown Unknown Verified 04/09/24 10:11 Sulfa (Sulfonamide Allergy Unknown Unknown Verified 04/09/24 10:11 Antibiotics) vancomycin Allergy Unknown Unknown Verified 04/09/24 10:11 STATINS Allergy Unknown Unknown Uncoded 04/09/24 10:11 Exam Narrative Exam Narrative: Psych-alert and oriented x 3. Attentive and appropriate, constitutionally normal, displays normal mood and affect per situation. There are no obvious deficits in memory, reasoning, or intellect.? Skin-no obvious rashes, bruising, erythema noted to the patient's area of pain.? Extremities- extremities are warm with minimal edema and palpable pulses. Lumbar-tenderness to palpation noted in the lumbar spine and paraspinal musculature. Pain is not elicited with flexion, extension, and lateral rotation of the lumbar spine. Range of motion is not diminished with these motions. Facet loading maneuvers are negative.? Strength-noted to be unremarkable with the exception of decreased strength rated at 4 out of 5 in right quadriceps femoris, anterior tibialis. Sensory-no notable sensory deficits in the bilateral lower extremities to touch or pinprick in all dermatomal distributions with the exception to decreased sensation to the right L3, 4, 5 dermatomal distribution Sacroiliac - tender to palpation over right PSIS. Positive Clark's on the right. Positive thigh thrust on the right. Coordination remains intact.? Gait remains non-antalgic Assessment and Plan Assessment and Plan (1) Lumbar stenosis with neurogenic claudication: (2) Sacroiliac joint disease: (3) Lumbar postlaminectomy syndrome: Plan 84yof who presents for evaluation. failed conservative measures, as noted. imaging reviewed, as noted. given symptoms and imaging, at this time with significant right SIJ pain we will proceed with a right SIJ injection under fluoroscopy, risks vs benefits reviewed. she is in agreement. meds reviewed, no changes. follow up after procedure.
== END 2024-04-19 11:09 | disposition home or self-care (01) ==
LOC: PM 11:08
PROVIDERS: PCP Internal Medicine; Visit Provider Nurse Practitioner
DX: M48.062 Spinal stenosis, lumbar region with neurogenic claudication (principal); M53.3 Sacrococcygeal disorders, not elsewhere classified; M96.1 Postlaminectomy syndrome, not elsewhere classified
CPT/HCPCS: G0463

== ENCOUNTER 2024-04-23 11:00 | Day surgery (SDC) | payer MEDICARE, OTHER, SELFPAY ==
--- OUTSIDE RECORDS SUMMARY | 2024-04-23 11:04 | XMS_ITS | CCD ---
Author Organization [facility] Care Team Providers Care Clinical Staff Pharmacist Name Role Phone Doctor, No Unavailable Unavailable [...] Care Provider MD Jeyson Diaz Attending Provider ERMELINDA, DR [...] Admitting Unavailable FLOR ., LIDA Attending Unavailable FLRO ., LIDA Consulting Unavailable BALL, DR CALDERON [...] Unavailable Ball, DO Calderon Primary Care Provider [phone] MD Jeyson Diaz Attending Provider [phone] Ermelinda, DO Calderon Primary Care Provider MD Joe Imprice Attending Provider [phone] Ermelinda, DO Calderon Primary Care Provider [...] (disorder) 11-16-19 15 AOF, Hives, Hives, PENICILLINS [facility] Repository (8 sources) Sulfonamides (Antibiotic); Translations: [SULFA (SULFONAMIDE ANTIBIOTICS)] Drug allergy (disorder) 11-16-19 15 AOF, Hives, Hives, Comment:2005 [facility] Repository (7 sources) Qzrozwm-Qtk-Lkj Reductase Inhibitor Drug allergy (disorder) 01-06-20 18 Unknown Reaction, Unknown Reaction, muscle aches [facility] Repository (20 sources) Cephalosporins (Antibiotic); Translations: [CEPHALOSPORINS] Drug Allergy 10-24-19 15 Unknown [facility] (7 sources) HMG-CoA reductase inhibitor; Translations: [KMTLINU-GDY-IBI REDUCTASE INHIBITORS] Drug Allergy 01-06-20 18 Unknown [facility] (7 sources) Nitrofurantoin; Translations: [NITROFURANTOIN MACROCRYSTAL] Drug Allergy 10-12-19 19 Rash, Itching [facility] (6 sources) Penicillins Drug Allergy 11-16-19 15 [facility] (20 sources) Povidone-Iodine; Translations: [POVIDONE-IODINE] Drug Allergy 06-21-20 19 Unknown [facility] (20 sources) Sulfonamides (Antibiotic) Drug Allergy 11-16-19 15 [facility] (20 sources) Vancomycin; Translations: [VANCOMYCIN] Drug Allergy 10-12-19 19 Rash, Itching [facility] (20 sources) Nitrofurantoin; Translations: [nitrofurantoin] Drug Allergy 12-02-19 21 rash [facility] (20 sources) Penicillin G Benzathine Drug allergy rash [employer] Other (20 sources) Sulfacetamide / Sulfur Drug Allergy rash [employer]ove Other (20 sources) Statins Depletion Drug allergy muscle aches [facility] Other (1 source) black walnut pollen extract Drug Allergy 05-17-[address] [facility] Repository (1 source) Cephalosporins (Antibiotic) Drug allergy (disorder) 10-24-[address] [facility] Repository (2 sources) Nitrofurantoin Drug Allergy 10-24-19 [address] [facility] Repository (1 source) Penicillins Drug allergy (disorder) 01-24-[address] [facility] Repository (2 sources) Povidone-Iodine Drug Allergy 06-21-20 [address] [facility] Repository (1 source) Sulfonamides (Antibiotic) Drug allergy (disorder) 01-31-20 [address] [facility] Repository (1 source) Vancomycin Drug Allergy 10-24-[address] 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 MANAGE Propensity to adverse reactions Unknown [employer] Other (20 sources) Substance with penicillin structure and antibacterial mechanism of action (substance) Drug allergy 04-30-20 06 PENICILLINS [employer] Other (20 sources) Sulf-10 Drug allergy 12-01-19 06 SULFA 10 [employer] Other (1 source) Vancomycin Drug Allergy rash [employer] Other (1 source) Cephalosporins (Antibiotic) Drug allergy (disorder) 03-16-20 [facility] Repository (1 source) Povidone-Iodine Drug Allergy 03-16-20 [facility] Repository (1 source) Vancomycin Drug Allergy 03-16-20 [facility] Repository Medications Current Medications Medication Drug Class(es) [...] by mouth every four to six hours Cbgywow-Zedtrlfzxrgjw-Xkfmcxnt (Excedrin Migraine) 250-250-65 mg Tablet Active 1 TAB PO EVERY 4-6 HOURS July 26, 2022 1:00am take 2 tablets by mouth every si x hours Excedrin Migraine 250-250-65 MG 2 tablets as needed Orally every 6 hrs Active [id number] actuat albuterol 0.09 mg/actuat metered dose [...] Start: 12-28-2017 take 1 capsule by mo [facility] every twelve hours Doxycycline Hyclate 100 [...] sources) Multivitamin Act kerri Multivitamin Not -Taking [place] 3 1200 MG (20 sources) take 1 capsule by mo ut once daily [place] 3 1200 MG 1 capsule Orally Once a day Active take 1 capsule by mouth once taniya ly [place] 3 1200 MG 1 capsule Orally Once [...] needed Orally every 6 hrs Not-Taking Vit C,D-Dm-Vrwpb-Lutein-Zeax an (Preservision Areds-2) 250-90-40-1 mg Capsule (5 sources) Start: 07-26-2022 Vit C,Z-Tg-Kbekw-Lutein-Zeax an (Preservision Areds-2) 250-90-40-1 mg Capsule Active 1 TAB PO Twice daily July 26, 2022 1:00am Start: 07-26-2022 Vit C,E-Zn-Stave Bolt Equalizer ex-Kgawek-Nzgewx (Preservision Areds-2) 250-90-40-1 mg Capsule Active 1 [...] Comment on above: Take by mouth. CA/D3/MAG OX/ZINC/MEDICAL INSURANCE CODER/MEREDITH/ BOR (CALCIUM 600+D3 PLUS ORAL) (6 sources) take 1200 mg by mouth once daily CA/D3/MAG OX/ZINC/MEDICAL INSURANCE CODER/MEREDITH/B OR (CALCIUM 600+D3 PLUS ORAL) Take 1,200 [...] mg by mouth twice daily. 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; Translations: [Chronic iwjg-GLTGM-40 syndrome] Viral infection (4 sources) COVID-19; Translations: [...] 05-22-2020 Episodic Other aftercare (1 source) Other fci (current) drug therapy; Translations: [OTH RESIDENTIAL CURRENT DRUG THERAPY] Onset: 01-29-2022 Episodic Other [...] Interpretation Reference Range Facility CT chest w [facility] 03-16-2024 CT chest w [facility] [place] [address] CT Scan Report Signed Patient: Tangela Trinidad MR#: [id number] 1494 : 1940 Acct:[id number] Age/Sex: 84 / F ADM Date: 03/16/24 Loc: CT Room: Type: [facility] Attending Dr: Lorelei Hurtado DO Copies to: [...] Viveros Jr., D.O.03/16/2024 2:09 PM Dictation Location: [place] [address] Transcribed By: [facility] 03/16/24 1409 Dictated By: Bert Viveros Jr, DO 03/16/24 1403 Signed By: 03/16/24 1409 Normal [facility] Creatinineon 03-16-2024 GFR/1.73 sq M.predicted MDRD (S/P/Bld) [Vol rate/Area] mL/min/{1.73_m2} Normal [facility] Comment on above: Result Comment: PERF ORMED BY: [place] [address] PATHOLOGIST ALIGNER SPEEDY GRAY M.D. Performed By: #### C REAT #### [facility] [address] [place] [address] Creatinine [Mass/volume] in Serum or PlasmaOrdered By: Lorelei Hurtado on 03-16-2024 Creatinine [Mass/Vol] 0.83 mg/dL Normal 0.60-1.20 [facility] Comment on above: Performed By: #### C REAT #### [facility] [address] [place] [address] No Panel InformationOrdered By: Lorelei Hurtado on 03-16-2024 Estimated GFR (CKD-EPI) > 60.0 mL/Min [facility] Creatinine Clearance (Chem N/A [facility] NM gastric emptying studyon 07-25-2023 NM gastric emptying study [facility] Main [place] [id number] Nuclear Medicine Report Signed Patient: Tangela Trinidad MR#: [id number] 1494 : 1940 Acct:[id number] Age/Sex: 83 / F ADM Date: 07/25/23 Loc: [place] Room: Type: [facility] Attending Dr: Jeyson Diaz MD Copies to: MD Gaston Li [place] S DO Ordering Provider: Jeyson Diaz MD Date of Service: 07/25/23 NM/NM gastric emptying study: Nausea Nuclear medicine gastric emptying examination TECHNIQUE: 1.1mCi of technetium 99m sulfur colloid in oatmeal. COMPARISON: None HISTORY: Nausea. Stomach ulcers last year. The one half emptying time of the stomach is 25minutes. [place] gastric emptying study IMPRESSION: Adequate gastric emptying Impression dictated by: Matt Feldman M.D.07/25/2023 9:40 AM Dictation Location: [place] [address] Transcribed By: [facility] 07/25/23 0940 Dictated By: Matt Feldman DO 07/25/23 0934 Signed By: 07/25/23 0940 Normal [facility] MG MAMM SCREEN 3D ROXANA CADon 10-20-2022 MG MAMM SCREEN 3D ROXANA CAD Patient: TANGELA TRINIDAD. Exam Date: 10/20/2022 : 1940 Gender:F Ordering : DR KVNG MELGAR D.O. Admission #: [id number] Family : Order #: [id number] CLICK HERE TO VIEW EXAM RADIOLOGY REPORT [...] at age 64. LOCATION: [facility] BREAST COMPOSITION: Scattered areas fibroglandular density. [...] Guidry M.D. on 10/20/2022 at 13:19 Normal [facility] CBC W Auto Differential pane l (Bld)on 07-27-2022 Basophils (Bld) [#/Vol] 0.08 10*3/uL Normal <0.11 [facility] Comment on above: Order Comment: Speci men Type: BLOOD SPECIMEN Ordering Facility: [facility] Address: [address] [address] Performed By: #### 1 4196-0, 44543-0 #### [facility] CLIA [id number] [address] [place] [address] 41387 Basophils/100 WBC (Bld) 0.9 % Normal [facility] Comment on above: Order Comment: Speci men Type: BLOOD SPECIMEN Ordering Facility: [facility] Address: [address] [place] [address] Performed By: #### 1 4196-0, 46021-5 #### [facility] CLIA [id number] [address] [place] [address] 39488 Differential cell count method Nom (Bld) Auto Normal [facility] Comment on above: Order Comment: Speci men Type: BLOOD SPECIMEN Ordering Facility: [facility] Address: [address] [address] Performed By: #### 1 4196-0, 76062-2 #### [facility] CLIA [id number] [address] [place] [address] 90202 Eosinophils (Bld) [#/Vol] 0.52 10*3/uL High <0.46 [facility] Comment on above: Order Comment: Speci men Type: BLOOD SPECIMEN Ordering Facility: [facility] Address: [address] [address] Performed By: #### 1 4196-0, 80654-0 #### [facility] CLIA [id number] [address] [place] [address] 24882 Eosinophils/100 WBC (Bld) 5.8 % Normal [facility] Comment on above: Order Comment: Speci men Type: BLOOD SPECIMEN Ordering Facility: [facility] Address: [address] [address] Performed By: #### 1 4196-0, 41462-6 #### [facility] CLIA [id number] [address] [place] [address] 04937 Erythrocyte distribution width (RBC) [Ratio] 18.0 % High 11.5-15.0 [facility] Comment on above: Order Comment: Speci men Type: BLOOD SPECIMEN Ordering Facility: [facility] Address: [address] [place] [address] Performed By: #### 1 4196-0, 99599-1 #### [facility] CLIA [id number] [address] [place] [address] 47475 Hematocrit (Bld) [Volume fraction] 39.6 % Normal 36.0-46.0 [facility] Comment on above: Order Comment: Speci men Type: BLOOD SPECIMEN Ordering Facility: [facility] Address: [address] [address] Performed By: #### 1 4196-0, 66060-0 #### [facility] CLIA [id number] [address] [place] [address] 03943 Hemoglobin (Bld) [Mass/Vol] 13.0 g/dL Normal 11.5-15.5 [facility] Comment on above: Order Comment: Speci men Type: BLOOD SPECIMEN Ordering Facility: [facility] Address: [address] [place] [address] Performed By: #### 1 4196-0, 91048-5 #### [facility] CLIA [id number] [address] [place] [address] 49579 Immature granulocytes (Bld) [#/Vol] 0.04 10*3/uL Normal <0.10 [facility] Comment on above: Order Comment: Speci men Type: BLOOD SPECIMEN Ordering Facility: [facility] Address: [address] [address] Performed By: #### 1 4196-0, 28062-4 #### [facility] CLIA [id number] [address] [place] [address] 59854 Immature granulocytes/100 WBC (Bld) 0.4 % Normal [facility] Comment on above: Order Comment: Speci men Type: BLOOD SPECIMEN Ordering Facility: [facility] Address: [address] [address] Performed By: #### 1 4196-0, 23536-0 #### [facility] CLIA [id number] [address] [place] [address] 99254 Lymphocytes (Bld) [#/Vol] 3.25 10*3/uL Normal 1.00-4.00 [facility] Comment on above: Order Comment: Speci men Type: BLOOD SPECIMEN Ordering Facility: [facility] Address: [address] [address] Performed By: #### 1 4196-0, 53496-2 #### [facility] CLIA [id number] [address] [place] [address]620 Lymphocytes/100 WBC (Bld) 36.3 % Normal [facility] Comment on above: Order Comment: Speci men Type: BLOOD SPECIMEN Ordering Facility: [facility] Address: [address] [address] Performed By: #### 1 4196-0, 01114-4 #### [facility] CLIA [id number] [address] [place] [address] 75746 MCH (RBC) [Entitic mass] 28.3 pg Normal 26.0-34.0 [facility] Comment on above: Order Comment: Speci men Type: BLOOD SPECIMEN Ordering Facility: [facility] Address: [address] [place] [address] Performed By: #### 1 4196-0, 65926-8 #### [facility] CLIA [id number] [address] [place] [address] 03371 MCHC (RBC) [Mass/Vol] 32.8 g/dL Normal 30.5-36.0 [facility] Comment on above: Order Comment: Speci men Type: BLOOD SPECIMEN Ordering Facility: [facility] Address: [address] [place] [address] Performed By: #### 1 4196-0, 47189-1 #### [facility] CLIA [id number] [address] [place] [address] 30692 MCV (RBC) [Entitic vol] 86.1 fL Normal 80.0-100.0 [facility] Comment on above: Order Comment: Speci men Type: BLOOD SPECIMEN Ordering Facility: [facility] Address: [address] [place] [address] Performed By: #### 1 4196-0, 09480-3 #### [facility] CLIA [id number] [address] [place] [address] 32952 Monocytes (Bld) [#/Vol] 1.25 10*3/uL High <0.87 [facility] Comment on above: Order Comment: Speci men Type: BLOOD SPECIMEN Ordering Facility: [facility] Address: [address] [place] [address] Performed By: #### 1 4196-0, 90200-3 #### [facility] CLIA [id number] [address] [place] [address] 71230 Monocytes/100 WBC (Bld) 14.0 % Normal [facility] Comment on above: Order Comment: Speci men Type: BLOOD SPECIMEN Ordering Facility: [facility] Address: [address] [address] Performed By: #### 1 4196-0, 68269-4 #### [facility] CLIA [id number] [address] [place] [address] 13494 Neutrophils (Bld) [#/Vol] 3.81 10*3/uL Normal 1.45-7.50 [facility] Comment on above: Order Comment: Speci men Type: BLOOD SPECIMEN Ordering Facility: [facility] Address: [address] [address] Performed By: #### 1 4196-0, 33706-2 #### [facility] CLIA [id number] [address] [place] [address] 05980 Neutrophils/100 WBC (Bld) 42.6 % Normal [facility] Comment on above: Order Comment: Speci men Type: BLOOD SPECIMEN Ordering Facility: [facility] Address: [address] [address] Performed By: #### 1 4196-0, 37480-8 #### [facility] CLIA [id number] [address] [place] [address] 12354 Nucleated RBC (Bld) [#/Vol] 10*3/uL Normal <0.01 [facility] Comment on above: Order Comment: Speci men Type: BLOOD SPECIMEN Ordering Facility: [facility] Address: [address] [address] Performed By: #### 1 4196-0, 28638-1 #### [facility] CLIA [id number] [address] [place] [address] 36275 Nucleated RBC/100 WBC (Bld) [Ratio] 0.0 /100 WBC Normal [facility] Comment on above: Order Comment: Speci men Type: BLOOD SPECIMEN Ordering Facility: [facility] Address: [address] [address] Performed By: #### 1 4196-0, 41554-6 #### [facility] CLIA [id number] [address] [place] [address] 02786 Platelet mean volume (Bld) [Entitic vol] 9.5 fL Normal 9.0-12.7 [facility] Comment on above: Order Comment: Speci men Type: BLOOD SPECIMEN Ordering Facility: [facility] Address: [address] [place] [address] Performed By: #### 1 4196-0, 51036-6 #### [facility] CLIA [id number] [address] [place] [address] 21042 Platelets (Bld) [#/Vol] 379 10*3/uL Normal 150-400 [facility] Comment on above: Order Comment: Speci men Type: BLOOD SPECIMEN Ordering Facility: [facility] Address: [address] [place] [address] Performed By: #### 1 4196-0, 92258-9 #### [facility] CLIA [id number] [address] [place] [address] 97249 RBC (Bld) [#/Vol] 4.60 10*6/uL Normal 3.90-5.20 [facility] Comment on above: Order Comment: Speci men Type: BLOOD SPECIMEN Ordering Facility: [facility] Address: [address] [place] [address] Performed By: #### 1 4196-0, 80758-8 #### [facility] CLIA [id number] [address] [place] [address] 20684 WBC (Bld) [#/Vol] 8.95 10*3/uL Normal 3.70-11.00 [facility] Comment on above: Order Comment: Speci men Type: BLOOD SPECIMEN Ordering Facility: [facility] Address: [address] [place] [address] Performed By: #### 1 4196-0, 37950-6 #### [facility] CLIA [id number] [address] [place] [address] 74024 CNOVSPon 07-27-2022 CNOVSP Visit (SP) Office ([place]) TANGELA TRINIDAD ([id number]) 1940 F Date Time Provider Department 07/27/22 2:45 PM MAVIS SANTIAGO During your visit today, we recorded the following information about you: Temperature Pulse Respiration Blood pressure 98.1 degrees 64/minute 16/minute 125/72 Weight Height 66.5 kg 1.524 m Mavis Santiago MD 07/27/2022 2:56 PM Signed PATIENT NAME: Tangela Trinidad CLINIC NO.: [id number] ATTENDING PHYSICIAN: Mavis Santiago MD DATE OF [...] Range Status (more content not included)... Normal [facility] Ferritin SerPl-mCncon 2022 Ferritin [Mass/Vol] 104.0 ng/mL Normal 14.7-205.1 [facility] Comment on above: Order Comment: Dayana soliz Type: BLOOD SPECIMEN Ordering Facility: [facility] Address: [address] [place], [place] [address] Performed By: #### 5 0190-8, 2276-4 #### [facility] CLIA [id number] [address] [place] [address] [place] Iron and Iron binding capaci ty panelon 07-27-2022 Iron [Mass/Vol] 43 ug/dL Normal 41-186 [facility] Comment on above: Order Comment: Dayana soliz Type: BLOOD SPECIMEN Ordering Facility: [facility] Address: [address] [place], [place] [address] Performed By: #### 5 0190-8, 2276-4 #### [facility] CLIA [id number] [address] [place] [address] Iron binding capacity [Mass/Vol] 265 ug/dL Normal 232-386 [facility] Comment on above: Order Comment: Speci men Type: BLOOD SPECIMEN Ordering Facility: [facility] Address: [address] [place] [address] Performed By: #### 5 0190-8, 2276-4 #### [facility] CLIA [id number] [address] [place] [address] [place] Iron/TIBC [Molar ratio] 16.2 % Normal 15.0-57.0 [facility] Comment on above: Order Comment: Speci men Type: BLOOD SPECIMEN Ordering Facility: [facility] Address: [address] [place] [address] Performed By: #### 5 0190-8, 2276-4 #### [facility] CLIA [id number] [address] [place] [address] [place] Retics #on 07-27-2022 Reticulocytes (Bld) [#/Vol] 0.26641 10*3/uL Normal 0.018-0.100 [facility] Comment on above: Order Comment: Speci men Type: BLOOD SPECIMEN Ordering Facility: [facility] Address: [address] [place] [address] Performed By: #### 1 4196-0, 57368-5 #### [facility] CLIA [id number] [address] [place] [address] 46103 Reticulocytes (Bld) [#/Vol]o n 07-27-2022 Reticulocytes/100 RBC (Bld) 0.9 % Normal 0.4-2.0 [facility] Comment on above: Order Comment: Speci men Type: BLOOD SPECIMEN Ordering Facility: [facility] Address: [address] [place] [address] [place] [address] Performed By: #### 1 4196-0, 29504-9 #### [facility] CLIA [id number] [address] [place] [address]87 COVID-19 SOFIAOrdered By: Brandy Diaz on 07-22-2022 SARS-CoV+SARS-CoV-2 (COVID-19) Ag IA.rapid Ql (Resp) Negative Negative [facility] Comment on above: This is a duplicate Heidi SARS Antigen (DB) result to be used for statistical tracking purpose only. No Panel InformationOrdered By: Jeyson Diaz on 07-22-2022 SARS Antigen (LFIA) [facility] CNSWon 06-02-2022 [facility] Social Work ([place]) TANGELA TRINIDAD ([id number]) 1940 F Date Time Provider Department 06/02/22 [...] - Hives POVIDONE-IODINE 06/21/2019 16 - Unknown FEDVOUL-PFW-[facility] REDUCTASE INHIBIT*01/05/2018 16 - Unknown SULFA (SULFONAMIDE [...] 112 mcg tablet 0.125 mcg. - CA/D3/MAG OX/ZINC/MEDICAL INSURANCE CODER/MEREDITH/BOR (CALCIUM 600+D3 PLUS ORAL) Take 1,200 mg by mouth once daily. - atenolol (TENORMIN) 25 mg tablet Take 1 tablet by mouth once daily. Problem List As Of Date 06/02/2022 Noted Resolved Anemia [D64.9] 11/15/2014 Iron deficiency [E61.1] 11/15/2014 Encounter Status:Closed by MARCIA RAMIRES on 06/02/22 [facility] Shannan 05-25-2022 [place] Telephone ([place]) TANGELA TRINIDAD ([id number]) 1940 F Date Time Provider Department 05/25/22 [employer] DAMON BREWER During your visit today, we recorded the following information about you: Mohit Lo [facility] 05/25/2022 3:35 PM Signed 1st report of treatment-non oncology regimen (Monoferric) Patient holds Medicare coverage. No FA available at this time. Allergies As of Date: 05/25/2022 Noted Allergy Reaction CEPHALOSPORINS 10/23/2014 16 - Unknown MACRODANTIN (NITROFURANTOIN MACRO*10/11/2018 2 - Rash 9 - Itching PENICILLINS 11/15/2014 4 - Hives POVIDONE-IODINE 06/21/2019 16 - Unknown XBEHEAG-ZRJ-HSK REDUCTASE INHIBIT*01/05/2018 16 - Unknown SULFA (SULFONAMIDE [...] 112 mcg tablet 0.125 mcg. - CA/D3/MAG OX/ZINC/MEDICAL INSURANCE CODER/MEREDITH/BOR (CALCIUM 600+D3 PLUS ORAL) Take 1,200 mg [...] Encounter Status:Closed by MOHIT [facility]ANTOS [facility]SP[facility] Office ([place]) TANGELA TRINIDAD ([id number]) 1940 F Date Time Provider Department 05/18/22 4:00 PM MAVIS SANTIAGO During your visit today, we recorded the following information about you: Temperature Pulse Respiration Blood pressure 98.1 degrees 78/minute 16/minute 122/78 Weight 68 kg Mavis Santiago MD 05/18/2022 4:08 PM Signed PATIENT NAME: Tangela Trinidad CLINIC NO.: [id number] ATTENDING PHYSICIAN: Mavis Santiago MD DATE OF [...] Range Status (more content not included)... Normal [facility] IMMUNOFIXATION(ELISE),PROTEIN ELEC(PE),FREon 05-06-2022 Albumin [Mass/Vol] 2.9 g/dL Normal 2.9-4.4 [facility] [facility] Comment on above: Performed By: #### I FEPEFL #### [facility] [address] [place] [address] Dr. Yayo Gregg Albumin/Globulin [Mass ratio] 1.2 {ratio} Normal 0.7-1.7 [facility] Comment on above: Performed By: #### I FEPEFL #### [facility] [address] [place] [address] Dr. Yayo Gregg Orvpv-1-Euimqkbu 0.3 g/dL Normal 0.0-0.4 [facility] Comment on above: Performed By: #### I FEPEFL #### [facility] [address] [place] [address] Dr. Yayo Gregg Enpki-2-Sqshlyvn 0.7 g/dL Normal 0.4-1.0 [facility] Comment on above: Performed By: #### I FEPEFL #### [facility] [address] [place] [address] Dr. Yayo Gregg Beta Globulin 0.9 g/dL Normal 0.7-1.3 [facility] Comment on above: Performed By: #### I FEPEFL #### [facility] [address] [place] [address] Dr. Yayo Gregg Free Guayanilla Lt Chains,S 39.9 mg/L Critically high 3.3-19.[address] [facility] Comment on above: Performed By: #### I FEPEFL #### [facility] [address] [place] [address] Dr. Yayo Gregg Free Lambda Lt Chains,S 22.7 mg/L Normal 5.7-26.[address] [facility] Comment on above: Performed By: #### I FEPEFL #### [facility] [address] [place] [address] Dr. Yayo Gregg Gamma Globulin 0.6 g/dL Normal 0.4-1.8 The [facility] Comment on above: Performed By: #### I FEPEFL #### [facility] [address] [place] [address] Dr. Yayo Gregg Globulin (S) [Mass/Vol] 2.6 g/dL Normal 2.2-3.[address] [facility] Comment on above: Performed By: #### I FEPEFL #### [facility] [address] [place] [address] Dr. Yayo Gregg Immunofixation Result, Serum Comment Normal [facility] Comment on above: Result Comment: No m onoclonality detected. Performed By: #### I FEPEFL #### [facility] [address] [address] [address] Yayo Gregg Immunoglobulin A, Qn, Serum 81 mg/dL Normal 64-422 [facility] Comment on above: Performed By: #### I FEPEFL #### [facility] [address] [place] [address] Dr. Yayo Gregg Immunoglobulin G, Qn, Serum 547 mg/dL Critically low 586-1602 [facility] Comment on above: Performed By: #### I FEPEFL #### [facility] [address] [place] [address] Dr. Yayo Gregg Immunoglobulin M, Qn, Serum 92 mg/dL Normal 26-217 [facility] Comment on above: Performed By: #### I FEPEFL #### [facility] [address] [place] [address] Dr. Yayo Gregg Guayanilla/Lambda Ratio, S 1.76 Critically high 0.26-1.65 [facility] Comment on above: Performed By: #### I FEPEFL #### [facility] [address] [place] [address] Dr. Yayo Gregg M-Johan Not Observed Normal Not Observed [facility] Comment on above: Performed By: #### I FEPEFL #### [facility] [address] [place] [address] Dr. Yayo Gregg PDF . Normal [facility] Comment on above: Performed By: #### I FEPEFL #### [facility] [address] [place] [address] Dr. Yayo Gregg Please note: Comment Normal [facility] Comment on above: Result Comment: Prot ein electrophoresis scan will follow via computer, mail, or production editor delivery. Performed By: #### I FEPEFL #### [facility] [address] [place] [address] Dr. Yayo Gregg Protein [Mass/Vol] 5.5 g/dL Critically low 6.0-8.5 Th [facility] Comment on above: Performed By: #### I FEPEFL #### [facility] [address] [place] [address] Dr. Yayo Gregg IMMUNOGLOBULINS IGA/IGM/IGG QUANTITATIVEon 05-05-2022 Immunoglobulin A, Qn, Serum 83 mg/dL Normal 64-[address] [facility] Comment on above: Performed By: #### I MMUNGL #### [facility] [address] [place] [address] Dr. Yayo Gregg Immunoglobulin G, Qn, Serum 559 mg/dL Critically low 586-1602 [facility] Comment on above: Performed By: #### I MMUNGL #### [facility] [address] [place] [address] Dr. Yayo Gregg Immunoglobulin M, Qn, Serum 93 mg/dL Normal 26-217 [facility] Comment on above: Performed By: #### I MMUNGL #### [facility] [address] [place] [address] Dr. Yayo Gregg CBC AUTO DIFFon 05-04-2022 BASO # 0.1 103/ul Normal 0.0-0.1 [facility] Comment on above: Performed By: #### I MMUNGL #### [facility] [address] [place] [address] Dr. Yayo Gregg Basophils/100 WBC (Bld) 0.9 % Normal 0.2-2.0 [facility] Comment on above: Performed By: #### I MMUNGL #### [facility] [address] [place] [address] Dr. Yayo Gregg EO # 0.7 103/ul Normal 0.0-0.7 [facility] Comment on above: Performed By: #### I MMUNGL #### [facility] [address] [place] [address] Dr. Yayo Gregg Eosinophils/100 WBC (Bld) 6.7 % Normal 0.9-7.0 [facility] Comment on above: Performed By: #### I MMUNGL #### [facility] [address] [place] [address] Dr. Yayo Gregg Erythrocyte distribution width (RBC) [Ratio] 15.6 % Critically high 11.0-15.0 [facility] Comment on above: Performed By: #### I MMUNGL #### [facility] [address] [address] [address] Yayo Gregg Hematocrit (Bld) [Volume fraction] 31.3 % Critically low 36.0-48.0 [facility] Comment on above: Performed By: #### I MMUNGL #### [facility] [address] [place] [address] Dr. Yayo Gregg Hemoglobin (Bld) [Mass/Vol] 10.0 g/dL Critically low 12.0-16.0 [facility] Comment on above: Performed By: #### I MMUNGL #### [facility] [address] [place] [address] Dr. Yayo Gregg IG # 0.04 10e3/ul Critically high 0.00-0.03 [facility] Comment on above: Performed By: #### I MMUNGL #### [facility] [address] [place] [address] Dr. Yayo Gregg IG % 0.4 % Normal 0.0-0.5 [facility] Comment on above: Performed By: #### I MMUNGL #### [facility] [address] [address] [address] Yayo Gregg LYMPH # 2.9 103/ul Normal 1.2-3.8 [facility] Comment on above: Performed By: #### I MMUNGL #### [facility] [address] [place] [address] Dr. Yayo Gregg Lymphocytes/100 WBC (Bld) 29.6 % Normal 20.5-60.0 [facility] Comment on above: Performed By: #### I MMUNGL #### [facility] [address] [place] [address] Dr. Yayo Gregg MANUAL DIFF REQ NO Normal [facility] Comment on above: Performed By: #### I MMUNGL #### [facility] [address] [place] [address] Dr. Yayo Gregg MCH (RBC) [Entitic mass] 25.7 pg Critically low 26.7-34.0 [facility] Comment on above: Performed By: #### I MMUNGL #### [facility] [address] [place] [address] Dr. Yayo Gregg MCHC (RBC) [Mass/Vol] 31.9 g/dL Normal 29.9-35.2 [facility] Comment on above: Performed By: #### I MMUNGL #### [facility] [address] [place] [address] Dr. Yayo Gregg MCV (RBC) [Entitic vol] 80.5 fL Critically low 81.0-99.0 [facility] Comment on above: Performed By: #### I MMUNGL #### [facility] [address] [place] [address] Dr. Yayo Gregg MONO # 1.4 103/ul Critically high 0.3-0.8 [facility] Comment on above: Performed By: #### I MMUNGL #### [facility] [address] [place] [address] Dr. Yayo Gregg Monocytes/100 WBC (Bld) 14.5 % Critically high 1.7-12.0 [facility] Comment on above: Performed By: #### I MMUNGL #### [facility] [address] [place] [address] Dr. Yayo Gregg NEUT # 4.7 103/ul Normal 1.4-6.5 [facility] Comment on above: Performed By: #### I MMUNGL #### [facility] [address] [place] [address] Dr. Yayo Gregg Neutrophils/100 WBC (Bld) 47.9 % Normal 43.0-75.0 [facility] Comment on above: Performed By: #### I MMUNGL #### [facility] [address] [place] [address] Dr. Yayo Gregg Platelet mean volume (Bld) [Entitic vol] 9.5 fL Normal 9.5-13.5 [facility] Comment on above: Performed By: #### I MMUNGL #### [facility] [address] [place] [address] Dr. Yayo Gregg PLT 457 103/ul Critically high 150-450 [facility] Comment on above: Performed By: #### I MMUNGL #### [facility] [address] [address] [address] Yayo Gregg RBC 3.89 106/ul Critically low 4.20-5.40 [facility] Comment on above: Performed By: #### I MMUNGL #### [facility] [address] [address] [address] Yayo Gregg WBC 9.8 103/ul Normal 4.0-11.0 [facility] Comment on above: Performed By: #### I MMUNGL #### [facility] [address] [place] [address] Dr. Yayo Gregg FERRITINon 05-04-2022 Ferritin [Mass/Vol] 20.0 ng/mL Normal 8.0-252.0 [facility] Comment on above: Performed By: #### F ERR, FETIBC #### [facility] [address] [place] [address] Dr. Yayo Gregg IRON AND TIBCon 05-04-2022 % SATURATION 5.7 % Normal [facility] Comment on above: Performed By: #### F ERR, FETIBC #### [facility] [address] [place] [address] Dr. Yayo Gregg Iron [Mass/Vol] 18.0 ug/dL Critically low 50.0-170.0 [facility] Comment on above: Performed By: #### F ERR, FETIBC #### [facility] [address] [place] [address] Dr. Yayo Gregg TIBC DIRECT 318.0 ug/dL Normal 250.0-450.0 [facility] Comment on above: Performed By: #### F ERR, FETIBC #### [facility] [address] [place] [address] Dr. Yayo Gregg PROF CHEM 8 (BAS METB)on Anion gap [Moles/Vol] 11.7 mmol/L Normal [facility] Comment on above: Performed By: #### I MMUNGL #### [facility] [address] [address] [address] Yayo Gregg Calcium [Mass/Vol] 8.1 mg/dL Critically low 8.5-10.1 [facility] Comment on above: Performed By: #### I MMUNGL #### [facility] [address] [address] [address] Yayo Gregg Chloride [Moles/Vol] 100 mmol/L Normal 98-107 [facility] Comment on above: Performed By: #### I MMUNGL #### [facility] [address] [address] [address] Yayo Gregg CO2 [Moles/Vol] 25.7 mmol/L Normal 21.0-32.0 [facility] Comment on above: Performed By: #### I MMUNGL #### [facility] [address] [place] [address] Dr. Yayo Gregg Creatinine [Mass/Vol] 1.06 mg/dL Critically high 0.55-1.02 [facility] Comment on above: Performed By: #### I MMUNGL #### [facility] [address] [place] [address] Dr. Yayo Gregg EGFR-AF UKRAINIAN =60 Normal >=60 [facility] Comment on above: Performed By: #### I MMUNGL #### [facility] [address] [place] [address] Dr. Yayo Gregg EGFR-NON AF UKRAINIAN 49 mL/min/1.73m2 Critically low >=60 [facility] Comment on above: Performed By: #### I MMUNGL #### [facility] [address] [place] [address] Dr. Yayo Gregg Glucose [Mass/Vol] 121 mg/dL Critically high 74-[address] [facility] Comment on above: Performed By: #### I MMUNGL #### [facility] [address] [place] [address] Dr. Yayo Gregg Potassium [Moles/Vol] 4.4 mmol/L Normal 3.5-5.1 [facility] Comment on above: Performed By: #### I MMUNGL #### [facility] [address] [place] [address] Dr. Yayo Gregg Sodium [Moles/Vol] 133 mmol/L Critically low 136-145 Th [facility] Comment on above: Performed By: #### I MMUNGL #### [facility] [address] [place] [address] Dr. Yayo Gregg Urea nitrogen [Mass/Vol] 16.0 mg/dL Normal 7.0-18.0 [facility] Comment on above: Performed By: #### I MMUNGL #### [facility] [address] [place] [address] Dr. Yayo Gregg Urea nitrogen/Creatinine [Mass ratio] 15.1 mg/mg Normal [facility] Comment on above: Performed By: #### I MMUNGL #### [facility] [address] [place] [address] Dr. Yayo Mckeon PROTEIN SERUMon 05-04-2022 Protein [Mass/Vol] 6.0 g/dL Critically low 6.4-8.2 Th [facility] Comment on above: Performed By: #### I MMUNGL #### [facility] [address] [place] [address] Dr. Yayo Gregg TSHon 05-04-2022 TSH 1.715 uIU/mL Normal 0.358-3.740 [facility] Comment on above: Performed By: #### I MMUNGL #### [facility] [address] [place] [address] Dr. Yayo Gregg CBC AUTO DIFFon 03-26-2022 BASO # 0.1 103/ul Normal 0.0-0.1 [facility] Comment on above: Performed By: #### C BC #### [facility] [address] [place] [address] Dr. Yaoy Gregg Basophils/100 WBC (Bld) 1.0 % Normal 0.2-2.0 [facility] Comment on above: Performed By: #### C BC #### [facility] [address] [place] [address] Dr. Yayo Gregg EO # 0.8 103/ul Critically high 0.0-0.7 [facility] Comment on above: Performed By: #### C BC #### [facility] [address] [place] [address] Dr. Yayo Gregg Eosinophils/100 WBC (Bld) 7.6 % Critically high 0.9-7.0 [facility] Comment on above: Performed By: #### C BC #### [facility] [address] [place] [address] Dr. Yayo Gregg Erythrocyte distribution width (RBC) [Ratio] 15.1 % Critically high 11.0-15.0 [facility] Comment on above: Performed By: #### C BC #### [facility] [address] [place] [address] Dr. Yayo Gregg Hematocrit (Bld) [Volume fraction] 32.0 % Critically low 36.0-48.0 [facility] Comment on above: Performed By: #### C BC #### [facility] [address] [place] [address] Dr. Yayo Gregg Hemoglobin (Bld) [Mass/Vol] 10.4 g/dL Critically low 12.0-16.0 [facility] Comment on above: Performed By: #### C BC #### [facility] [address] [place] [address] Dr. Yayo Gregg IG # 0.05 10e3/ul Critically high 0.00-0.03 [facility] Comment on above: Performed By: #### C BC #### [facility] [address] [place] [address] Dr. Yayo Gregg IG % 0.5 % Normal 0.0-0.5 [facility] Comment on above: Performed By: #### C BC #### [facility] [address] [place] [address] Dr. Yayo Gregg LYMPH # 2.9 103/ul Normal 1.2-3.8 [facility] Comment on above: Performed By: #### C BC #### [facility] [address] [place] [address] Dr. Yayo Gregg Lymphocytes/100 WBC (Bld) 27.7 % Normal 20.5-60.0 [facility] Comment on above: Performed By: #### C BC #### [facility] [address] [place] [address] Dr. Yayo Gregg MANUAL DIFF REQ NO Normal [facility] Comment on above: Performed By: #### C BC #### [facility] [address] [place] [address] Dr. Yayo Gregg MCH (RBC) [Entitic mass] 26.5 pg Critically low 26.7-34.0 [facility] Comment on above: Performed By: #### C BC #### [facility] [address] [place] [address] Dr. Yayo Gregg MCHC (RBC) [Mass/Vol] 32.5 g/dL Normal 29.9-35.2 [facility] Comment on above: Performed By: #### C BC #### [facility] [address] [place] [address] Dr. Yayo Gregg MCV (RBC) [Entitic vol] 81.4 fL Normal 81.0-99.0 [facility] Comment on above: Performed By: #### C BC #### [facility] [address] [place] [address] Dr. Yayo Gregg MONO # 1.3 103/ul Critically high 0.3-0.8 [facility] Comment on above: Performed By: #### C BC #### [facility] [address] [place] [address] Dr. Yayo Gregg Monocytes/100 WBC (Bld) 12.5 % Critically high 1.7-12.0 [facility] Comment on above: Performed By: #### C BC #### [facility] [address] [place] [address] Dr. Yayo Gregg NEUT # 5.2 103/ul Normal 1.4-6.5 [facility] Comment on above: Performed By: #### C BC #### [facility] [address] [place] [address] Dr. Yayo Gregg Neutrophils/100 WBC (Bld) 50.7 % Normal 43.0-75.0 [facility] Comment on above: Performed By: #### C BC #### [facility] [address] [place] [address] Dr. Yayo Gregg Platelet mean volume (Bld) [Entitic vol] 9.6 fL Normal 9.5-13.5 [facility] Comment on above: Performed By: #### C BC #### [facility] [address] [place] [address] Dr. Yayo Gregg PLT 409 103/ul Normal 150-450 [facility] Comment on above: Performed By: #### C BC #### [facility] [address] [place] [address] Dr. Yayo Gregg RBC 3.93 106/ul Critically low 4.20-5.40 [facility] Comment on above: Performed By: #### C BC #### [facility] [address] [place] [address] Dr. Yayo Gregg WBC 10.3 103/ul Normal 4.0-11.0 [facility] Comment on above: Performed By: #### C BC #### [facility] [address] [place] [address] Dr. Yayo Gregg FERRITINon 03-26-2022 Ferritin [Mass/Vol] 22.0 ng/mL Normal 8.0-252.0 [facility] Comment on above: Performed By: #### I MMUNGL #### [facility] [address] [place] [address] Dr. Yayo Gregg CBC AUTO DIFFon 02-09-2022 BASO # 0.1 103/ul Normal 0.0-0.1 [facility] Comment on above: Performed By: #### C BC #### [facility] [address] [place] [address] Dr. Yayo Gregg Basophils/100 WBC (Bld) 0.7 % Normal 0.2-2.0 [facility] Comment on above: Performed By: #### C BC #### [facility] [address] [place] [address] Dr. Yayo Gregg EO # 0.9 103/ul Critically high 0.0-0.7 [facility] Comment on above: Performed By: #### C BC #### [facility] [address] [place] [address] Dr. Yayo Gregg Eosinophils/100 WBC (Bld) 7.5 % Critically high 0.9-7.0 [facility] Comment on above: Performed By: #### C BC #### [facility] [address] [place] [address] Dr. Yayo Gregg Erythrocyte distribution width (RBC) [Ratio] 15.1 % Critically high 11.0-15.0 [facility] Comment on above: Performed By: #### C BC #### [facility] [address] [place] [address] Dr. Yayo Gregg Hematocrit (Bld) [Volume fraction] 32.5 % Critically low 36.0-48.0 [facility] Comment on above: Performed By: #### C BC #### [facility] [address] [place] [address] Dr. Yayo Gregg Hemoglobin (Bld) [Mass/Vol] 10.9 g/dL Critically low 12.0-16.0 [facility] Comment on above: Performed By: #### C BC #### [facility] [address] [place] [address] Dr. Yayo Gregg IG # 0.16 10e3/ul Critically high 0.00-0.03 [facility] Comment on above: Performed By: #### C BC #### [facility] [address] [place] [address] Dr. Yayo Gregg IG % 1.3 % Critically high 0.0-0.5 [facility] Comment on above: Performed By: #### C BC #### [facility] [address] [place] [address] Dr. Yayo Gregg LYMPH # 2.9 103/ul Normal 1.2-3.8 [facility] Comment on above: Performed By: #### C BC #### [facility] [address] [place] [address] Dr. Yayo Gregg Lymphocytes/100 WBC (Bld) 24.0 % Normal 20.5-60.0 [facility] Comment on above: Performed By: #### C BC #### [facility] [address] [place] [address] Dr. Yayo Gregg MANUAL DIFF REQ NO Normal [facility] Comment on above: Performed By: #### C BC #### [facility] [address] [place] [address] Dr. Yayo Gregg MCH (RBC) [Entitic mass] 27.2 pg Normal 26.7-34.0 [facility] Comment on above: Performed By: #### C BC #### [facility] [address] [place] [address] Dr. Yayo Gregg MCHC (RBC) [Mass/Vol] 33.5 g/dL Normal 29.9-35.2 [facility] Comment on above: Performed By: #### C BC #### [facility] [address] [place] [address] Dr. Yayo Gregg MCV (RBC) [Entitic vol] 81.0 fL Normal 81.0-99.0 [facility] Comment on above: Performed By: #### C BC #### [facility] [facility] [address] [place] [address] Dr. Yayo Gregg MONO # 1.6 103/ul Critically high 0.3-0.8 [facility] Comment on above: Performed By: #### C BC #### [facility] [address] [place] [address] Dr. Yayo Gregg Monocytes/100 WBC (Bld) 13.4 % Critically high 1.7-12.0 [facility] Comment on above: Performed By: #### C BC #### [facility] [address] [place] [address] Dr. Yayo Gregg NEUT # 6.3 103/ul Normal 1.4-6.[address] [facility] Comment on above: Performed By: #### C BC #### [facility] [address] [place] [address] Dr. Yayo Gregg Neutrophils/100 WBC (Bld) 53.1 % Normal 43.0-75.0 [facility] Comment on above: Performed By: #### C BC #### [facility] [address] [place] [address] Dr. Yayo Gregg Platelet mean volume (Bld) [Entitic vol] 9.4 fL Critically low 9.5-13.5 [facility] Comment on above: Performed By: #### C BC #### [facility] [address] [place] [address] Dr. Yayo Gregg PLT 426 103/ul Normal 150-450 [facility] Comment on above: Performed By: #### C BC #### [facility] [address] [place] [address] Dr. Yayo Gregg RBC 4.01 106/ul Critically low 4.20-5.40 [facility] Comment on above: Performed By: #### C BC #### [facility] [address] [place] [address] Dr. Yayo Gregg WBC 11.9 103/ul Critically high 4.0-11.0 [facility] Comment on above: Performed By: #### C BC #### [facility] [address] [place] [address] Dr. Yayo Gregg FERRITINon 02-09-2022 Ferritin [Mass/Vol] 36.0 ng/mL Normal 8.0-252.0 [facility] Comment on above: Performed By: #### V ITB12, FETIBC, FERR #### [facility] [address] [place] [address] Dr. Yayo Gregg IRON AND TIBCon 02-09-2022 % SATURATION 5.2 % Normal [facility] Comment on above: Performed By: #### V ITB12, FETIBC, FERR #### [facility] [address] [place] [address] Dr. Yayo Gregg Iron [Mass/Vol] 16.0 ug/dL Critically low 50.0-170.0 [facility] Comment on above: Performed By: #### V ITB12, FETIBC, FERR #### [facility] [address] [place] [address] Dr. Yayo Gregg TIBC DIRECT 305.0 ug/dL Normal 250.0-450.0 [facility] Comment on above: Performed By: #### V ITB12, FETIBC, FERR #### [facility] [address] [place] [address] Dr. Yayo Gregg VITAMIN B12on 02-09-2022 Cobalamin (Vitamin B12) [Mass/Vol] 819.0 pg/mL Normal 193.0-986.0 [facility] Comment on above: Performed By: #### V ITB12, FETIBC, FERR #### [facility] [address] [place] [address] Dr. Yayo Gregg BNPon 01-27-2022 Natriuretic peptide B (Bld) [Mass/Vol] 270.0 pg/mL Normal <=1,800.0 [facility] Comment on above: Performed By: #### I MMUNGL #### [facility] [address] [place] [address] Dr. Yayo Gregg CARDIAC TARAN ADMITon 022 CK [Catalytic activity/Vol] 143 U/L Normal 26-192 [facility] Comment on above: Performed By: #### I MMUNGL #### [facility] [address] [place] [address] Dr. Yayo Gregg CK.MB [Mass/Vol] 2.66 ng/mL Normal <=3.60 [facility] Comment on above: Performed By: #### I MMUNGL #### [facility] [address] [place] [address] Dr. Yayo Gregg HSTROP 4.0 pg/mL Normal 4.0-51.[address] [facility] Comment on above: Result Comment: CUT- OFF POINTS HAVE BEEN ESTABLISHED BASED ON THE FOURTH UNIVERSAL DEFINITIONS OF MYOCARDIAL INFARCTION. THE UPPER REFERENCE LIMIT (URL) OF TROPONIN, DEFINED THE 99TH PERCENTILE OF cTnI DISTRIBUTION IN A REFERENCE POPULATION, HAS BEEN CONFIRMED THE DECISION THRESHOLD FOR TN DIAGNOSIS. Performed By: #### I MMUNGL #### [facility] [address] [place] [address] Dr. Yayo Gregg CARA 113 ng/mL Critically high 9-82 [facility] Comment on above: Performed By: #### I MMUNGL #### [facility] [address] [place] [address] Dr. Yayo Gregg CBC AUTO DIFFon 01-27-2022 BASO # 0.1 103/ul Normal 0.0-0.1 [facility] Comment on above: Performed By: #### C BC #### [facility] [address] [place] [address] Dr. Yayo Gregg Basophils/100 WBC (Bld) 0.7 % Normal 0.2-2.0 [facility] Comment on above: Performed By: #### C BC #### [facility] [address] [place] [address] Dr. Yayo Gregg EO # 1.1 103/ul Critically high 0.0-0.7 [facility] Comment on above: Performed By: #### C BC #### [facility] [address] [place] [address] Dr. Yayo Gregg Eosinophils/100 WBC (Bld) 7.3 % Critically high 0.9-7.0 [facility] Comment on above: Performed By: #### C BC #### [facility] [address] [place] [address] Dr. Yayo Gregg Erythrocyte distribution width (RBC) [Ratio] 13.8 % Normal 11.0-15.0 [facility] Comment on above: Performed By: #### C BC #### [facility] [address] [place] [address] Dr. Yayo Gregg Hematocrit (Bld) [Volume fraction] 34.4 % Critically low 36.0-48.0 [facility] Comment on above: Performed By: #### C BC #### [facility] [address] [place] [address] Dr. Yayo Gregg Hemoglobin (Bld) [Mass/Vol] 11.3 g/dL Critically low 12.0-16.0 [facility] Comment on above: Performed By: #### C BC #### [facility] [address] [place] [address] Dr. Yayo Gregg IG # 0.09 10e3/ul Critically high 0.00-0.03 [facility] Comment on above: Performed By: #### C BC #### [facility] [address] [place] [address] Dr. Yayo Gregg IG % 0.6 % Critically high 0.0-0.5 [facility] Comment on above: Performed By: #### C BC #### [facility] [address] [place] [address] Dr. Yayo Gregg LYMPH # 2.5 103/ul Normal 1.2-3.8 [facility] Comment on above: Performed By: #### C BC #### [facility] [address] [place] [address] Dr. Yayo Gregg Lymphocytes/100 WBC (Bld) 16.6 % Critically low 20.5-60.0 [facility] Comment on above: Performed By: #### C BC #### [facility] [address] [place] [address] Dr. Yayo Gregg MANUAL DIFF REQ NO Normal [facility] Comment on above: Performed By: #### C BC #### [facility] [address] [place] [address] Dr. Yayo Gregg MCH (RBC) [Entitic mass] 26.7 pg Normal 26.7-34.0 [facility] Comment on above: Performed By: #### C BC #### [facility] [address] [place] [address] Dr. Yayo Gregg MCHC (RBC) [Mass/Vol] 32.8 g/dL Normal 29.9-35.2 [facility] Comment on above: Performed By: #### C BC #### [facility] [address] [place] [address] Dr. Yayo Gregg MCV (RBC) [Entitic vol] 81.1 fL Normal 81.0-99.0 [facility] Comment on above: Performed By: #### C BC #### [facility] [address] [place] [address] Dr. Yayo Gregg MONO # 2.1 103/ul Critically high 0.3-0.8 [facility] Comment on above: Performed By: #### C BC #### [facility] [address] [place] [address] Dr. Yayo Gregg Monocytes/100 WBC (Bld) 14.0 % Critically high 1.7-12.0 [facility] Comment on above: Performed By: #### C BC #### [facility] [address] [place] [address] Dr. Yayo Gregg NEUT # 9.1 103/ul Critically high 1.4-6.5 [facility] Comment on above: Performed By: #### C BC #### [facility] [address] [place] [address] Dr. Yayo Gregg Neutrophils/100 WBC (Bld) 60.8 % Normal 43.0-75.0 [facility] Comment on above: Performed By: #### C BC #### [facility] [address] [place] [address] Dr. Yayo Gregg Platelet mean volume (Bld) [Entitic vol] 10.2 fL Normal 9.5-13.5 [facility] Comment on above: Performed By: #### C BC #### [facility] [address] [place] [address] Dr. Yayo Gregg PLT 455 103/ul Critically high 150-450 [facility] Comment on above: Performed By: #### C BC #### [facility] [address] [place] [address] Dr. Yayo Gregg RBC 4.24 106/ul Normal 4.20-5.[address] [facility] Comment on above: Performed By: #### C BC #### [facility] [address] [place] [address] Dr. Yayo Gregg WBC 14.9 103/ul Critically high 4.0-11.0 [facility] Comment on above: Performed By: #### C BC #### [facility] [address] [place] [address] Dr. Yayo Gregg Covid-19 PCR (CVDTB)on 01-09 SARS-CoV-2 (COVID-19) RNA CHANTALE+probe Ql (Unsp spec) Not detected Normal NOT DETECTED [facility] Comment on above: Result Comment: When [...] for this test is supported by the [place] of Health and Human Service's declaration that [...] By: #### C BC #### [facility] [address] [place] [address] Dr. Yayo Gregg PROF 14(COMP METB)on 022 Albumin [Mass/Vol] 3.0 g/dL Critically low 3.4-5.0 [facility] Comment on above: Performed By: #### I MMUNGL #### [facility] [address] [place] [address] Dr. Yayo Gregg Albumin/Globulin [Mass ratio] 0.9 {ratio} Normal [facility] Comment on above: Performed By: #### I MMUNGL #### [facility] [address] [place] [address] Dr. Yayo Gregg ALP [Catalytic activity/Vol] 95 U/L Normal 46-116 [facility] Comment on above: Performed By: #### I MMUNGL #### [facility] [address] [place] [address] Dr. Yayo Gregg ALT [Catalytic activity/Vol] 28 U/L Normal 14-59 [facility] Comment on above: Performed By: #### I MMUNGL #### [facility] [address] [address] [address] Yayo Gregg Anion gap [Moles/Vol] 11.9 mmol/L Normal [facility] Comment on above: Performed By: #### I MMUNGL #### [facility] [address] [address] [address] Yayo Gregg AST [Catalytic activity/Vol] 24 U/L Normal 15-37 [facility] Comment on above: Performed By: #### I MMUNGL #### [facility] [address] [address] [address] Yayo Gregg Bilirubin [Mass/Vol] 0.3 mg/dL Normal 0.2-1.0 [facility] Comment on above: Performed By: #### I MMUNGL #### [facility] [address] [place] [address] Dr. Yayo Gregg Calcium [Mass/Vol] 8.8 mg/dL Normal 8.5-10.1 [facility] Comment on above: Performed By: #### I MMUNGL #### [facility] [address] [address] [address] Yayo Gregg Chloride [Moles/Vol] 98 mmol/L Normal 98-107 [facility] Comment on above: Performed By: #### I MMUNGL #### [facility] [address] [place] [address] Dr. Yayo Gregg CO2 [Moles/Vol] 24.6 mmol/L Normal 21.0-32.0 [facility] Comment on above: Performed By: #### I MMUNGL #### [facility] [address] [place] [address] Dr. Yayo Gregg Creatinine [Mass/Vol] 0.91 mg/dL Normal 0.55-1.02 [facility] Comment on above: Performed By: #### I MMUNGL #### [facility] [address] [place] [address] Dr. Yayo Gregg EGFR-AF UKRAINIAN >60 Normal >=60 [facility] Comment on above: Performed By: #### I MMUNGL #### [facility] [address] [address] [address] Yayo Gregg EGFR-NON AF UKRAINIAN 59 mL/min/1.73m2 Critically low >=60 [facility] Comment on above: Performed By: #### I MMUNGL #### [facility] [address] [address] [address] Yayo Gregg Globulin (S) [Mass/Vol] 3.3 g/dL Normal [facility] Comment on above: Performed By: #### I MMUNGL #### [facility] [address] [address] [address] Yayo Gregg Glucose [Mass/Vol] 95 mg/dL Normal 74-106 [facility] Comment on above: Performed By: #### I MMUNGL #### [facility] [address] [address] [address] Yayo Gregg Potassium [Moles/Vol] 4.5 mmol/L Normal 3.5-5.1 [facility] Comment on above: Performed By: #### I MMUNGL #### [facility] [address] [address] [address] Yayo Gregg Protein [Mass/Vol] 6.3 g/dL Critically low 6.4-8.2 [facility] Comment on above: Performed By: #### I MMUNGL #### [facility] [address] [place] [address] Dr. Yayo Gregg Sodium [Moles/Vol] 130 mmol/L Critically low 136-145 [facility] Comment on above: Performed By: #### I MMUNGL #### [facility] [address] [address] [address] Yayo Gregg Urea nitrogen [Mass/Vol] 12.0 mg/dL Normal 7.0-18.0 [facility] Comment on above: Performed By: #### I MMUNGL #### [facility] [address] [address] [address] Yayo Gregg Urea nitrogen/Creatinine [Mass ratio] 13.2 mg/mg Normal [facility] Comment on above: Performed By: #### I MMUNGL #### [facility] [address] [place] [address] Dr. Yayo Gregg PROTIMEon 01-27-2022 INR Coag (PPP) [Relative time] 0.96 {INR} Normal [facility] Comment on above: Performed By: #### I MMUNGL #### [facility] [address] [place] [address] Dr. Yayo Gregg INR GUIDELINES SEE BELOW Normal [facility] Comment on above: Result Comment: ASHLEY RED INR: 2.0 - 3.0 CONDITIONS NOT LISTED BELOW 2.5 - 3.5 FOR PROSTHETIC HEART VALVE REPLACEMENT 2.5 - 3.5 RECURRENT THROMBOSIS Performed By: #### I MMUNGL #### [facility] [address] [place] [address] Dr. Yayo Gregg PT Coag (PPP) [Time] 10.4 s Normal 9.0-11.6 [facility] Comment on above: Performed By: #### I MMUNGL #### [facility] [address] [place] [address] Dr. Yayo Gregg PTTon 01-27-2022 aPTT Coag (Bld) [Time] 31.6 s Normal 22.3-36.2 [facility] Comment on above: Performed By: #### I MMUNGL #### [facility] [address] [place] [address] Dr. Yayo Gregg TROPONIN, HIGH SENSITIVITYon 01-27-2022 HSTROP 4.7 pg/mL Normal 4.0-51.3 [facility] Comment on above: Result Comment: CUT- OFF POINTS HAVE BEEN ESTABLISHED BASED ON THE FOURTH UNIVERSAL DEFINITIONS OF MYOCARDIAL INFARCTION. THE UPPER REFERENCE LIMIT (URL) OF TROPONIN, DEFINED THE 99TH PERCENTILE OF cTnI DISTRIBUTION IN A REFERENCE POPULATION, HAS BEEN CONFIRMED THE DECISION THRESHOLD FOR TN DIAGNOSIS. Performed By: #### H STROPN #### [facility] [address] [place] [address] Dr. Yayo Gregg XR CHEST 1 Von [...] by: ANTHONY GUIDRY Date: 2022-01-27 11:47 Normal [facility] XR LSPINE 2_3 VIEWSon 2021 XR LSPINE [...] by: BENJAMIN GUNN Date: 2021-12-18 14:19 Normal [facility] BASIC METABOLIC PANEL(BMP)on 01-06-2018 Anion gap 12 mmol/L Normal 9-18 [facility] Comment on above: Performed By: #### C VAMSI SHERIFFGR ####MAIN LABCLIA:[id number] [facility] [place] [address] BUN (urea nitrogen) 17 mg/dL Normal 8-23 [facility] Comment on above: Performed By: #### VAMSI RUFFGR ####MAIN LABCLIA:[id number] [facility] [place] [address] BUN/Creatinine Ratio 22.1 mg/mg Normal [facility] Comment on above: Performed By: #### AMANDA RUFFCGR ####MAIN LABCLIA:[id number] [facility] [place] [address] Calcium 7.9 mg/dL Low 8.8-10.2 [facility] Comment on above: Performed By: #### Yaquelin RUFFCBCGR ####MAIN LABCLIA:[id number] [place] [address] Chloride 101 mmol/L Normal 98-107 [facility] Comment on above: Performed By: #### C SHARITA, ZCBCGR ####MAIN LABCLIA:[id number] [facility] [place] [address] CO2 24 mmol/L Normal 22-29 [facility] Comment on above: Performed By: #### C SHARITA, ZCBCGR ####MAIN LABCLIA:[id number] [facility] [place] [address] Creatinine 0.77 mg/dL Normal 0.50-0.90 [facility] Comment on above: Performed By: #### C SHARITA, ZCBCGR ####MAIN LABCLIA:[id number] [facility] [place] [address] eGFR (MDRD) 77 /1.73 m2 Normal >60 mL/min [facility] Comment on above: Result Comment: Norm al RangeStage Description:1 Normal or Increased GFR >=902 Mild Decrease in GFR 60-903 Moderately Decreased GFR 30-594 Severely Decreased GFR 15-295 Kidney Failure <15 Performed By: #### C SHARITA, ZCBCGR ####MAIN LABCLIA:[id number] [facility] [place] [address] Glucose mass conc 89 mg/dL Normal 74-109 [facility] Comment on above: Performed By: #### C SHARITA, ZCBCGR ####MAIN LABCLIA:[id number] [facility] [place] [address] Potassium molar conc 4.4 mmol/L Normal 3.5-5.1 [facility] Comment on above: Performed By: #### C SHARITA ZCBCGR ####MAIN LABCLIA:[id number] [facility] [place] [address] Sodium 133 mmol/L Low 136-145 [facility] Comment on above: Performed By: #### C SHARITA, ZCBCGR ####MAIN LABCLIA:[id number] [facility] [place] [address] CBC/DIFF GROUPon 01-06-2018 Anisocytosis presence 1+ Normal [facility] Comment on above: Performed By: #### C SHARITA ZCBCGR ####MAIN LABCLIA:[id number] [facility] [place] [address] HYPOCHROMASIA 1+ Normal [facility] Comment on above: Performed By: #### C SHARITA, ZCBCGR ####MAIN LABCLIA:[id number] [facility] [place] [address] NORMOCHROMIC NO Normal [facility] Comment on above: Performed By: #### C SHARITA ZCBCGR ####MAIN LABCLIA:[id number] [facility] [place] [address] NORMOCYTIC NO [facility] Comment on above: Performed By: #### C SHARITA ZCBCGR ####MAIN LABCLIA:[id number] [facility] [place] [address] Platelets NORMAL [facility] Comment on above: Performed By: #### C SHARITA ZCBCGR ####MAIN LABCLIA:[id number] [facility] [place] [address] BAND NEUTROPHILS #(MANUAL) 152 /cmm Normal <648 [facility] Comment on above: Performed By: #### C SHARITA ZCBCGR ####MAIN LABCLIA:[id number] [facility] [place] [address] Eosinophils 456 /cmm High <432 [facility] Comment on above: Performed By: #### Vladimir SHERIFF ZCBCGR ####MAIN LABCLIA:[id number] [facility] [place] [address] Eosinophils/100 leukocytes 6 % High <4 [facility] Comment on above: Performed By: #### C SHARITA ZCBCGR ####MAIN LABCLIA:[id number] [facility] [place] [address] Lymphocytes 1748 /cmm Normal 960-4752 [facility] Comment on above: Performed By: #### Vladimir SHERIFF ZCBCGR ####MAIN LABCLIA:[id number] [facility] [place] [address] Lymphocytes/100 leukocytes 23 % Normal 20-44 [facility] Comment on above: Performed By: #### Vladimir SHERIFF, ZCBCGR ####MAIN LABCLIA:[id number] [facility] [place] [address] METAMYELOCYTES #(MANUAL) 76 /cmm High 0 [facility] Comment on above: Performed By: #### Vladimir SHERIFF, ZCBCGR ####MAIN LABCLIA:[id number] [facility] [place] [address] Metamyelocytes/100 leukocytes 1 % High 0 [facility] Comment on above: Performed By: #### Vlaidmir SHERIFF, ZCBCGR ####MAIN LABCLIA:[id number] [facility] [place] [address] Monocytes 1292 /cmm High 96-972 [facility] Comment on above: Performed By: #### Vladimir SHERIFF, ZCBCGR ####MAIN LABCLIA:[id number] [facility] [place] [address] Monocytes/100 leukocytes 17 % High 2-9 [facility] Comment on above: Performed By: #### Vladimir SHERIFF, ZCBCGR ####MAIN LABCLIA:[id number] [facility] [place] [address] Neutrophils 3876 /cmm Normal 2249-1589 [facility] Comment on above: Performed By: #### Vladimir SHERIFF, ZCBCGR ####MAIN LABCLIA:[id number] [facility] [place] [address] Neutrophils band/100 leukocytes 2 % Normal <6 [facility] Comment on above: Performed By: #### C SHARITA, ZCBCGR ####MAIN LABCLIA:[id number] [facility] [place] [address] Neutrophils/100 WBC Auto (Bld) 51 % Normal 50-70 [facility] Comment on above: Performed By: #### Vlaidmir SHERIFF, ZCBCGR ####MAIN LABCLIA:[id number] [facility] [place] [address] TOTAL CELLS COUNTED 100 Normal [facility] Comment on above: Performed By: #### C SHARITA, ZCBCGR ####MAIN LABCLIA:[id number] [facility] [place] [address] Erythrocyte distribution width Auto Ratio (RBC) 13.0 % Normal 11.5-14.5 [facility] Comment on above: Performed By: #### C SHARITA, ZCBCGR ####MAIN LABCLIA:[id number] [facility] [place] [address] Erythrocytes (RBC) 3.49 10 6/cmm Low 4.20-5.40 [facility] Comment on above: Performed By: #### C SHARITA, ZCBCGR ####MAIN LABCLIA:[id number] [facility] [place] [address] Hematocrit (HCT) 29.4 % Low 38.0-47.0 [facility] Comment on above: Performed By: #### C SHARITA, ZCBCGR ####MAIN LABCLIA:[id number] [facility] [place] [address] Hemoglobin mass conc (Bld) 10.1 g/dL Low 12.0-16.4 [facility] Comment on above: Performed By: #### C SHARITA ZCBCGR ####MAIN LABCLIA:[id number] [facility] [place] [address] MCH 34.5 g/dL Normal 32.0-36.0 [facility] Comment on above: Performed By: #### C SHARITA, ZCBCGR ####MAIN LABCLIA:[id number] [facility] [place] [address] MCH 29.1 pg Normal 27.0-31.0 [facility] Comment on above: Performed By: #### C SHARITA ZCBCGR ####MAIN LABCLIA:[id number] [facility] [place] [address] MCV 84.3 fL Normal 80.0-96.0 [facility] Comment on above: Performed By: #### C SHARITA, ZCBCGR ####MAIN LABCLIA:[id number] [facility] [place] [address] Platelets 359 10 3/cmm Normal 130-400 [facility] Comment on above: Performed By: #### C BC, ZCBCGR ####MAIN LABCLIA:[id number] [facility] [place] [address] WBC (Leukocytes) 7.6 10 3/cmm Normal 4.8-10.[address] [facility] Comment on above: Performed By: #### C BC, ZCBCGR ####MAIN LABCLIA:[id number] [facility] [place] [address] FREE T4 (FREE THYROXINE)on 0 01-06-2018 Thyroxine (T4) free 2.46 ng/dL High 0.93-1.7 [facility] Comment on above: Performed By: #### C BC, ZCBCGR ####MAIN LABCLIA:[id number] [facility] [place] [address] IM Progress Noteon 8 IM Progress Note [address] [place], [place] [address] TANGELA TRINIDAD 77 [id number] Donnell Barton MD 4W / [id number]-B 1940 Report #: [id number] Hospitalist Progress Note Date/Time: 01/06/18805 Report Status: [...] fine and wants to go back to [place]. Her will be driving. - Reviewed laboratory [...] have her follow-up with her physician in [place]. (2) Hyponatremia Status: Improved Plan: Sodium of 133-asymptomatic urine sodium slightly elevated at 35. (3) Essential hypertension Status: Stable (4) Hypothyroidism Plan: Suppressed TSH, her physician from [place] just called her in down dosed her [...] 01/06/18816 Electronically Cosigned By: Cosigned Date/Time: Normal [facility] T3 FREEon 01-06-2018 Triiodothyronine (T3) free 5.92 pg/mL High 2.0-4.4 [facility] Comment on above: Performed By: #### C MELONY SHERIFF ####MAIN LABCLIA:[id number] [place] [address] CBC/DIFF GROUPon 01-05-2018 NORMOCHROMIC YES Normal [facility] Comment on above: Performed By: #### MELONY RUFF ####MAIN LABCLIA:[id number] [place] [address] NORMOCYTIC YES Normal [facility] Comment on above: Performed By: #### MELONY RUFF ####MAIN LABCLIA:[id number] [place] [address] Platelets NORMAL Normal [facility] Comment on above: Performed By: #### Vladimir SHERIFF, ZCBCGR ####MAIN LABCLIA:[id number] [facility] [place] [address] BAND NEUTROPHILS #(MANUAL) 414 /cmm Normal <648 [facility] Comment on above: Performed By: #### C SHARITA, ZCBCGR ####MAIN LABCLIA:[id number] [facility] [place] [address] Eosinophils 552 /cmm High <432 [facility] Comment on above: Performed By: #### C SHARITA, ZCBCGR ####MAIN LABCLIA:[id number] [facility] [place] [address] Eosinophils/100 leukocytes 4 % Normal <4 [facility] Comment on above: Performed By: #### C SHARITA, ZCBCGR ####MAIN LABCLIA:[id number] [facility] [place] [address] Lymphocytes 690 /cmm Low 960-4752 [facility] Comment on above: Performed By: #### C SHARITA, ZCBCGR ####MAIN LABCLIA:[id number] [facility] [place] [address] Lymphocytes/100 leukocytes 5 % Low 20-44 [facility] Comment on above: Performed By: #### C SHARITA, ZCBCGR ####MAIN LABCLIA:[id number] [facility] [place] [address] Monocytes 1242 /cmm High 96-972 [facility] Comment on above: Performed By: #### C SHARITA, ZCBCGR ####MAIN LABCLIA:[id number] [facility] [place] [address] Monocytes/100 leukocytes 9 % Normal 2-9 [facility] Comment on above: Performed By: #### C SHARITA, ZCBCGR ####MAIN LABCLIA:[id number] [facility] [place] [address] Neutrophils 98662 /cmm High 1572-8315 [facility] Comment on above: Performed By: #### C SHARITA, ZCBCGR ####MAIN LABCLIA:[id number] [facility] [place] [address] Neutrophils band/100 leukocytes 3 % Normal <6 [facility] Comment on above: Performed By: #### C SHARITA, ZCBCGR ####MAIN LABCLIA:[id number] [facility] [place] [address] Neutrophils/100 WBC Auto (Bld) 79 % High 50-70 [facility] Comment on above: Performed By: #### C SHARITA, ZCBCGR ####MAIN LABCLIA:[id number] [facility] [place] [address] TOTAL CELLS COUNTED 100 Normal [facility] Comment on above: Performed By: #### C SHARITA, ZCBCGR ####MAIN LABCLIA:[id number] [facility] [place] [address] Hematocrit (HCT) 36.0 % Low 38.0-47.0 [facility] Comment on above: Performed By: #### C SHARITA ZCBCGR ####MAIN LABCLIA:[id number] [facility] [place] [address] Hemoglobin mass conc (Bld) 12.2 g/dL Normal 12.0-16.4 [facility] Comment on above: Performed By: #### C SHARITA, ZCBCGR ####MAIN LABCLIA:[id number] [facility] [place] [address] MCH 28.6 pg Normal 27.0-31.0 [facility] Comment on above: Performed By: #### C SHARITA ZCBCGR ####MAIN LABCLIA:[id number] [facility] [place] [address] MCV 84.1 fL Normal 80.0-96.0 [facility] Comment on above: Performed By: #### C SHARITA, ZCBCGR ####MAIN LABCLIA:[id number] [facility] [place] [address] WBC (Leukocytes) 13.8 10 3/cmm High 4.8-10.8 [facility] Comment on above: Performed By: #### C SHARITA, ZCBCGR ####MAIN LABCLIA:[id number] [place] [address] CHEST 2 VIEWSon 01-05-2018 CHEST [address] [id number]____ Pt Location: 4W/ ADM IN Pt RM#: [id number] MR #: [id number] DATE: 01/05/18 123 ADM#: [id number] #: [id number] JANET TRINIDADOB: 1940 Age/Sex: 77 / F [...] JLECC: ROSY Salvador; Doctor,No; Donnell Barton MD [facility] COMPLETE BLOOD COUNTon 01-05 Erythrocyte distribution width Auto Ratio (RBC) 12.7 % Normal 11.5-14.5 [facility] Comment on above: Performed By: #### C BC, ZCBCGR ####MAIN LABCLIA:[id number] [facility] [place] [address] Erythrocytes (RBC) 4.28 10 6/cmm Normal 4.20-5.40 [facility] Comment on above: Performed By: #### C BC, ZCBCGR ####MAIN LABCLIA:[id number] [facility] [place] [address] MCH 34.0 g/dL Normal 32.0-36.0 [facility] Comment on above: Performed By: #### C BC, YaquelinCBCGR ####MAIN LABCLIA:[id number] [facility] [place] [address] Platelets 423 10 3/cmm High 130-400 [facility] Comment on above: Performed By: #### C BCAMANDACGR ####MAIN LABCLIA:[id number] [facility] [place] [address] [address]OLIC PANE [facility] 01-05-2018 Alanine aminotransferase (ALT) 15 U/L Normal 0-33 [facility] Comment on above: Performed By: #### C MP, MG ####MAIN LABCLIA:[id number] [facility] [place] [address] Albumin 3.3 g/dL Normal 3.0-4.5 [facility] Comment on above: Performed By: #### C MP, MG ####MAIN LABCLIA:[id number] [facility] [place] [address] Albumin/Globulin Ratio 1.2 {ratio} Normal 1-1.4 [facility] Comment on above: Performed By: #### C MP, MG ####MAIN LABCLIA:[id number] [facility] [place] [address] Alkaline phosphatase (ALP) 76 U/L Normal 35-104 [facility] Comment on above: Performed By: #### C MP, MG ####MAIN LABCLIA:[id number] [facility] [place] [address] Anion gap 15 mmol/L Normal 9-18 [facility] Comment on above: Performed By: #### C MP, MG ####MAIN LABCLIA:[id number] [facility] [place] [address] Aspartate aminotransferase (AST) 16 U/L Normal 0-32 [facility] Comment on above: Performed By: #### C MP, MG ####MAIN LABCLIA:[id number] [facility] [place] [address] Bilirubin (total) 0.4 mg/dL Normal 0.2-1.2 [facility] Comment on above: Performed By: #### C MP, MG ####MAIN LABCLIA:[id number] [facility] [place] [address] BUN (urea nitrogen) 26 mg/dL High 8-23 [facility] Comment on above: Performed By: #### C MP, MG ####MAIN LABCLIA:[id number] [facility] [place] [address] BUN/Creatinine Ratio 22.2 mg/mg Normal [facility] Comment on above: Performed By: #### C MP, MG ####MAIN LABCLIA:[id number] [facility] [place] [address] Calcium 8.5 mg/dL Low 8.8-10.2 [facility] Comment on above: Performed By: #### C MP, MG ####MAIN LABCLIA:[id number] [facility] [place] [address] Chloride 90 mmol/L Low 98-107 [facility] Comment on above: Performed By: #### C MP, MG ####MAIN LABCLIA:[id number] [facility] [place] [address] CO2 26 mmol/L Normal 22-29 [facility] Comment on above: Performed By: #### C MP, MG ####MAIN LABCLIA:[id number] [facility] [place] [address] Creatinine 1.17 mg/dL High 0.50-0.90 [facility] Comment on above: Performed By: #### C MP, MG ####MAIN LABCLIA:[id number] [facility] [place] [address] eGFR (MDRD) 47 /1.73 m2 Low >60 mL/min [facility] Comment on above: Result Comment: Norm al RangeStage Description:1 Normal or Increased GFR >=902 Mild Decrease in GFR 60-903 Moderately Decreased GFR 30-594 Severely Decreased GFR 15-295 Kidney Failure <15 Performed By: #### C MP, MG ####MAIN LABCLIA:[id number] [facility] [place] [address] Globulin 2.7 g/dL Normal 2.3-3.5 [facility] Comment on above: Performed By: #### C MP, MG ####MAIN LABCLIA:[id number] [facility] [place] [address] Glucose mass conc 136 mg/dL High 74-109 [facility] Comment on above: Performed By: #### C MP, MG ####MAIN LABCLIA:[id number] [facility] [place] [address] Potassium molar conc 4.5 mmol/L Normal 3.5-5.1 [facility] Comment on above: Performed By: #### C MP, MG ####MAIN LABCLIA:[id number] [facility] [place] [address] Protein 6.0 g/dL Low 6.4-8.3 [facility] Comment on above: Performed By: #### C MP, MG ####MAIN LABCLIA:[id number] [facility] [place] [address] Sodium 126 mmol/L Low 136-145 [facility] Comment on above: Performed By: #### C MP, MG ####MAIN LABCLIA:[id number] [facility] [place] [address] CT HEAD WO 01-05-2018 CT HEAD WO [address] [id number]____ Pt Location: 4W/ ADM IN Pt RM#: [id number] MR #: [id number] DATE: 01/05/18 1236 ADM#: [id number] #: [id number] JANET TRINIDADOB: 1940 Age/Sex: 77 / F REPORT STATUS: SignedORDERING PHYSICIAN: DAVID SalvadorRIDEONET/PRIMARY PHYSICIAN: Doctor,No HISTO RY/REASON: Dizziness, near syncopeCLINICAL [...] matter.REPORT# [id number] READ BY: Cielo Pacheco M.D. [id number] REPORT RELEASED BY: Cielo Pacheco M.D. 01/05/18 1502Transcribed Date/Time: 01/05/18 1339 PLPCC: ROSY Salvador; Doctor,No; Donnell Barton MD [facility] Emergency Room Visit Reporto n 01-05-2018 Emergency Room Visit Report [address] [place], [place] [address] TANGELA TRINIDAD 1940 (77 F) [id number] Helio Hoang 4W Report #: [id number] PCP: No Doctor Emergency Room Visit Report [...] reports feeling dizziness and near syncope at [facility]. Pt reports recent bronchitis that she [...] Allergy Mild Rash Verified 01/05/18 12:40 Antibiotics) Ruwdatx-Xmo-Vcc Reductase Allergy Unknown Verified 01/05/18 12:40 Inhibitor [...] PO BID 01/05/18 01/05/18 raNITIdine HCl [Acid Compressed Gas Plant Worker] 150 mg PO BID 01/05/18 01/05/18 ROS [...] % (Manual) (<4) % Neutrophils # (Manual) (0914-6959) /cmm Band Neutrophils # (<648) /cmm Lymphocytes [...] Appearance Clear Urine pH 7.0 Ur Specific [place] <=1.005 Urine Protein Negative (NEGATIVE) Urine Glucose [...] (Manual) 4 (<4) % Neutrophils # (Manual) 765[address] H (1624-1849) /cmm Band Neutrophils # 414 (<648) /cmm [...] Color Urine Appearance Urine pH Ur Specific [place] Urine Protein (NEGATIVE) Urine Glucose (UA) (NEGATIVE) [...] an inhaler. This was obtained by the [facility] pharmacy in [facility]. 01/05/18 14:40 I discussed this patient [...] Sohan Grover MD Cosigned Date/Time: 01/05/18 190 [facility] History & Physicalon 018 History & Physical [address] [place] [address] TANGELA TRINIDAD [id number] Donnell Barton MD 4W / [id number] 1940 Report #: [id number] Admission Date: 01/05/18 History Physical Date/Time: 01/05/18 [...] episode. Patient is visiting this area from [place] in [place] [...] asymptomatic. 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 which shows normal sinus rhythm, EKG shows [...] Allergy Mild Rash Verified 01/05/18 12:40 Antibiotics) Xtmqjjy-Doi-Csm Reductase Allergy Unknown Verified 01/05/18 12:40 Inhibitor [...] PO BID 01/05/18 01/05/18 raNITIdine HCl [Acid Compressed Gas Plant Worker] 150 mg PO BID 01/05/18 01/05/18 Allergies [...] 1541 Electronically Cosigned By: Cosigned Date/Time: Normal [facility] MAGNESIUMon 01-05-2018 Magnesium 2.1 mg/dL Normal 1.6-2.6 [facility] Comment on above: Performed By: #### C MP, MG ####MAIN LABCLIA:[id number] [facility] [place] [address] SODIUM,URINE RANDOMon 2017 SODIUM,URINE RANDOM 35 mmol/L Normal [facility] Comment on above: Order Comment: COLLE CTED BY: Sherine Tenorio Result Comment: The reference range has not been established for this test. Performed By: #### C BC, ZCBCGR ####MAIN LABCLIA:[id number] [facility] [place] [address] THYROID STIMULATING HORMONEo n 01-05-2018 Thyroid stimulating hormone (TSH) 0.16 uIU/mL Low 0.27-4.20 [facility] Comment on above: Performed By: #### C BC, ZCBCGR ####MAIN LABCLIA:[id number] [facility] [place] [address] TROPONIN Ton 01-05-2018 Troponin T.cardiac mass conc ug/L Normal <0.010 [facility] Comment on above: Result Comment: Valu es [...] Performed By: #### C BC, ZCBCGR ####MAIN LABCLIA:[id number] [facility] [place] [address] Troponin T.cardiac mass conc ug/L Normal <0.010 [facility] Comment on above: Result Comment: Valu es [...] hours. Performed By: #### T ROPT ####MAIN LABCLIA:[id number] [place] [address] URINALYSISon 01-05-2018 UA APPEARANCE CLEAR Normal [facility] Comment on above: Order Comment: COLLE CTED BY: davedVOID-MIDSTREAM Performed By: #### U A ####MAIN LABCLIA:[id number] [place] [address] UA BACTERIA NONE Normal NONE [facility] Comment on above: Order Comment: COLLE CTED BY: davedVOID-MIDSTREAM Performed By: #### U A ####MAIN LABCLIA:[id number] [facility] [place] [address] UA SQUAMOUS EPITHELIAL 0-2 Normal [facility] Comment on above: Order Comment: COLLE CTED BY: Tye acostaOID-MIDSTREAM Performed By: #### U A ####MAIN LABCLIA:[id number] [facility] [place] [address] UA WBC 0-2 Normal 0-2 [facility] Comment on above: Order Comment: COLLE CTED BY: Tye acostaOID-MIDSTREAM Performed By: #### U A ####MAIN LABCLIA:[id number] [facility] [place] [address] Urine, color YELLOW Normal [facility] Comment on above: Order Comment: COLLE CTED BY: Tye acostaOID-MIDSTREAM Performed By: #### U A ####MAIN LABCLIA:[id number] [place] [address] Urine, erythrocytes 0-2 Normal 0-2 [facility] Comment on above: Order Comment: COLLE CTED BY: Tye acostaOID-MIDSTREAM Performed By: #### U A ####MAIN LABCLIA:[id number] [facility] [place] [address] UA BILIRUBIN Negative Normal NEGATIVE [facility] Comment on above: Order Comment: COLLE CTED BY: Tye acostaOID-MIDSTREAM Performed By: #### U A ####MAIN LABCLIA:[id number] [facility] [place] [address] UA BLOOD Negative Normal NEGATIVE [facility] Comment on above: Order Comment: COLLE CTED BY: Tye acostaOID-MIDSTREAM Performed By: #### U A ####MAIN LABCLIA:[id number] [facility] [place] [address] UA LEUKOCYTE ESTERASE TRACE Normal NEGATIVE [facility] Comment on above: Order Comment: COLLE CTED BY: Tye acostaOID-MIDSTREAM Performed By: #### U A ####MAIN LABCLIA:[id number] [facility] [place] [address] UA NITRITES Negative Normal NEGATIVE [facility] Comment on above: Order Comment: COLLE CTED BY: Tye acostaOID-MIDSTREAM Performed By: #### U A ####MAIN LABCLIA:[id number] [facility] [place] [address] UA PH 7.0 [facility] Comment on above: Order Comment: COLLE CTED BY: Tye acostaOID-MIDSTREAM Performed By: #### U A ####MAIN LABCLIA:[id number] [facility] [place] [address] UA PROTEIN Negative Normal NEGATIVE [facility] Comment on above: Order Comment: COLLE CTED BY: Tye acostaOID-MIDSTREAM Performed By: #### U A ####MAIN LABCLIA:[id number] [facility] [place] [address] UA SPECIFIC GRAVITY <=1.005 [facility] Comment on above: Order Comment: COLLE CTED BY: Tye acostaOID-MIDSTREAM Performed By: #### U A ####MAIN LABCLIA:[id number] [facility] [place] [address] UA UROBILINOGEN 0.2 mg/dL Normal 0.0-1.0 [facility] Comment on above: Order Comment: COLLE CTED BY: davedVOID-MIDSTREAM Performed By: #### U A ####MAIN LABCLIA:[id number] [facility] [place] [address] Urine, glucose Negative Normal NEGATIVE [facility] Comment on above: Order Comment: COLLE CTED BY: davedVOID-MIDSTREAM Performed By: #### U A ####MAIN LABCLIA:[id number] [facility] [place] [address] Urine, ketones presence Negative Normal NEGATIVE [facility] Comment on above: Order Comment: COLLE CTED BY: davedVOID-MIDSTREAM Performed By: #### U A ####MAIN LABCLIA:[id number] [facility] [place] [address] URINE SOURCE VOID-MIDSTREAM Normal [facility] Comment on above: Order Comment: COLLE CTED BY: davedVOID-MIDSTREAM Performed By: #### U A ####MAIN LABCLIA:[id number] [facility] [place] [address] VASCULAR RISK PANELon 2017 Cholesterol 180 mg/dL Normal 0-199 [facility] Comment on above: Order Comment: Comme nts: Use blood from ED if available Performed By: #### C BC ZCBCGR ####MAIN LABCLIA:[id number] [facility] [place] [address] HDL Cholesterol 42 mg/dL Low >65 [facility] Comment on above: Order Comment: Comme nts: Use blood from ED if available Performed By: #### C BC, ZCBCGR ####MAIN LABCLIA:[id number] [facility] [place] [address] LDL Cholesterol 98 mg/dL Normal <129 [facility] Comment on above: Order Comment: Comme nts: Use blood from ED if available Performed By: #### C BC, ZCBCGR ####MAIN LABCLIA:[id number] [facility] [place] [address] Triglyceride 202 mg/dL High 0-199 [facility] Comment on above: Order Comment: Comme nts: Use blood from ED if available Performed By: #### C BC, ZCBCGR ####MAIN LABCLIA:[id number] [facility] [place] [address] VLDL CHOLESTEROL 40 mg/dL Normal 5-40 [facility] Comment on above: Order Comment: Comme nts: Use blood from ED if available Performed By: #### C BC, ZCBCGR ####MAIN LABCLIA:[id number] [facility] [place] [address] Vital Signs Date Time Vital Sign Value Performing Clinician Facility 01-02-2024 11:39-0400 Body height 152.4 cm DO Kvng Ball Work Phone: [facility] 01-02-2024 11:39-0400 Body mass index (BMI) [Ratio] 26.6 kg/m2 DO Kvng Ball Work Phone: [facility] 01-02-2024 11:39-0400 Body weight 61.91 kg DO Kvng Ball Work Phone: [facility] 01-02-2024 11:39-0400 Diastolic blood pressure 85 mm[Hg] DO Kvng Ball Work Phone: [facility] 01-02-2024 11:39-0400 Heart rate 66 /min DO Kvng Ball Work Phone: [facility] 01-02-2024 11:39-0400 Respiratory rate 12 /min DO Kvng Ball Work Phone: [facility] 01-02-2024 11:39-0400 Systolic blood pressure 124 mm[Hg] DO Kvng Ball Work Phone: [facility] 05-27-2023 11:00-0500 Body height 152.4 cm Kvng Ball Other [employer] Other 05-27-2023 11:00-0500 Diastolic blood pressure 84 mm[Hg] Kvng Ball Other [employer] Other 05-27-2023 11:00-0500 Systolic blood pressure 124 mm[Hg] Kvng Ball Other [employer] Other 03-04-2023 13:45-0400 Body height 152.4 cm Kvng Ball Other [employer] Other 03-04-2023 13:45-0400 Body mass index (BMI) [Ratio] 28.47 kg/m2 Kvng Ball Other [facility] Other 03-04-2023 13:45-0400 Body weight 66.13 kg Kvng Ball Other [facility] Other 03-04-2023 13:45-0400 Diastolic blood pressure 80 mm[Hg] Kvng Ball Other [facility] Other 03-04-2023 13:45-0400 Respiratory rate 12 /min Kvng Ball Other [facility] Other 03-04-2023 13:45-0400 Systolic blood pressure 117 mm[Hg] Kvng Ball Other [facility] Other 02-22-2023 11:00-0400 Body height 152.4 cm Kvng Ball Other [facility] Other 02-22-2023 11:00-0400 Body mass index (BMI) [Ratio] 28.39 kg/m2 Kvng Ball Other [facility] Other 02-22-2023 11:00-0400 Body weight 65.95 kg Kvng Ball Other [facility] Other 02-22-2023 11:00-0400 Diastolic blood pressure 83 mm[Hg] Kvng Ball Other [facility] Other 02-22-2023 11:00-0400 Respiratory rate 12 /min Kvng Ball Other [facility] Other 02-22-2023 11:00-0400 Systolic blood pressure 132 mm[Hg] Kvng Ball Other [facility] Other 01-24-2023 09:18-0400 Diastolic blood pressure 72 mm[Hg] DO Kvng Ball Work Phone: [facility] 01-24-2023 09:18-0400 Heart rate 56 /min DO Kvng Ball Work Phone: [facility] 01-24-2023 09:18-0400 Respiratory rate 14 /min DO Kvng Ball Work Phone: [facility] 01-24-2023 09:18-0400 SaO2% (BldA) [Mass fraction] 98 % DO Kvng Ball Work Phone: [facility] 01-24-2023 09:18-0400 Systolic blood pressure 126 mm[Hg] DO Kvng Ball Work Phone: [facility] 01-24-2023 07:44-0400 Body height 154.94 cm DO Kvng Ball Work Phone: [facility] 01-24-2023 07:44-0400 Body temperature 97.8 [degF] DO Kvng Ball Work Phone: [facility] 01-24-2023 07:44-0400 Body weight 65.31 kg DO Kvng Ball Work Phone: [facility] 11-18-2022 12:00-0400 Body height 152.4 cm Kvng Ball Other [facility] Other 11-18-2022 12:00-0400 Body mass index (BMI) [Ratio] 28.74 kg/m2 Kvng Ball Other [facility] Other 11-18-2022 12:00-0400 Body weight 66.77 kg Kvng Ball Other [facility] Other 11-18-2022 12:00-0400 Diastolic blood pressure 82 mm[Hg] Kvng Ball Other [facility] Other 11-18-2022 12:00-0400 Respiratory rate 12 /min Kvng Ball Other [facility] Other 11-18-2022 12:00-0400 Systolic blood pressure 125 mm[Hg] Kvng Ball Other [place] [facility] Other 10-28-2022 14:05-0400 Diastolic blood pressure 73 mm[Hg] DO Kvng Ball Work Phone: [facility] 10-28-2022 14:05-0400 Heart rate 60 /min DO Kvng Ball Work Phone: [facility] 10-28-2022 14:05-0400 Respiratory rate 18 /min DO Kvng Ball Work Phone: [facility] 10-28-2022 14:05-0400 SaO2% (BldA) [Mass fraction] 96 % DO Kvng Ball Work Phone: [facility] 10-28-2022 14:05-0400 Systolic blood pressure 117 mm[Hg] DO Kvng Ball Work Phone: [facility] 10-28-2022 11:42-0400 Body height 154.94 cm DO Kvng Ball Work Phone: [facility] 10-28-2022 11:42-0400 Body temperature 97.9 [degF] DO Kvng Ball Work Phone: [facility] 10-28-2022 11:42-0400 Body weight 65.77 kg DO Kvng Ball Work Phone: [facility] 10-12-2022 15:00-0400 Body height 152.4 cm Kvng Ball Other [employer] Other 10-12-2022 15:00-0400 Body mass index (BMI) [Ratio] 28.78 kg/m2 Kvng Ball Other [facility] Other 10-12-2022 15:00-0400 Body weight 66.86 kg Kvng Ball Other [facility] Other 10-12-2022 15:00-0400 Diastolic blood pressure 80 mm[Hg] Kvng Ball Other [facility] Other 10-12-2022 15:00-0400 Respiratory rate 12 /min Kvng Ball Other [facility] Other 10-12-2022 15:00-0400 Systolic blood pressure 116 mm[Hg] Kvng Ball Other [facility] Other 07-27-2022 14:38-0500 Body height 152.4 cm [...] 69 mm[Hg] DO Kvng Ball Work Phone: [facility] 07-26-2022 09:19-0500 Heart rate 59 /min DO Kvng Ball Work Phone: [facility] 07-26-2022 09:19-0500 Respiratory rate 16 /min DO Kvng Ball Work Phone: [facility] 07-26-2022 09:19-0500 SaO2% (BldA) [Mass fraction] 98 % DO Kvng Ball Work Phone: [facility] 07-26-2022 09:19-0500 Systolic blood pressure 111 mm[Hg] DO Kvng Ball Work Phone: [facility] 07-26-2022 07:19-0500 Body height 154.94 cm DO Kvng Ball Work Phone: [facility] 07-26-2022 07:19-0500 Body temperature 97.7 [degF] DO Kvng Ball Work Phone: [facility] 07-26-2022 07:19-0500 Body weight 66.22 kg DO Kvng Ball Work Phone: [facility] 07-21-2022 14:30-0500 Body height 152.4 cm Kvng Ball Other [facility] Other 07-21-2022 14:30-0500 Body mass index (BMI) [Ratio] 28.82 kg/m2 Kvng Ball Other [facility] Other 07-21-2022 14:30-0500 Body weight 66.95 kg Kvng Ball Other [facility] Other 07-21-2022 14:30-0500 Diastolic blood pressure 70 mm[Hg] Kvng Ball Other [facility] Other 07-21-2022 14:30-0500 Respiratory rate 12 /min Kvng Ball Other [facility] Other 07-21-2022 14:30-0500 Systolic blood pressure 118 mm[Hg] Kvng Ball Other [employer] Other 05-25-2022 13:02-0500 Body temperature 96.91 [degF] Chair Ryan Work Phone: [facility] 05-25-2022 13:02-0500 Diastolic blood pressure 88 mm[Hg] Chair Anderson Work Phone: [facility] 05-25-2022 13:02-0500 Heart rate 68 /min Chair Ryan Work Phone: [facility] 05-25-2022 13:02-0500 Respiratory rate 18 /min Chair Anderson Work Phone: [facility] 05-25-2022 13:02-0500 SaO2% (BldA) [Mass fraction] 100 % Chair Anderson Work Phone: [facility] 05-25-2022 13:02-0500 Systolic blood pressure 146 mm[Hg] Chair Ryan Work Phone: [facility] [...] 15:42-0500 Systolic blood pressure 122 mm[Hg] Mavis Santaigo MD Work Phone: [facility] [...] encounter procedure DO Kvng Melgar Work Phone: [facility] [place] Work Phone: Start: 03-16-2024 End: 03-16-2024 ambulatory DO Kvng Melgar Work Phone: [facility] Work Phone: Start: 03-01-2024 End: 03-01-2024 ambulatory LORELEI HURTADO Not Available Start: 01-31-2024 End: 01-31-2024 ambulatory LORELEI HURTADO Not Available Start: 01-25-2024 End: 01-25-2024 ambulatory TED GILMORE Not Available Start: 01-02-2024 End: 01-02-2024 Patient encounter procedure DO Kvng Melgar Work Phone: [facility] Work Phone: Start: 09-15-2023 End: 09-15-2023 ambulatory Imad Asaad Other [employer] Other Start: 09-15-2023 Telephone encounter Imad Asaad [facility] Start: 08-10-2023 End: 08-10-2023 ambulatory Imad Asaad Other [employer] Other Start: 08-10-2023 Office outpatient vi sit 25 minutes Imad Asaad [facility] Start: 08-01-2023 End: 08-01-2023 ambulatory Kvng Melgar Other [employer] Other Start: 08-01-2023 Telephone encounter Kvng RODRIGES [facility] Start: 07-25-2023 End: 07-25-2023 Patient encounter procedure DO Kvng Melgar Work Phone: [facility] Work Phone: Start: 07-25-2023 End: 07-25-2023 ambulatory DO Kvng Melgar Work Phone: [facility] Work Phone: Start: 07-06-2023 End: 07-06-2023 ambulatory Imad Asaad Other [employer] Other Start: 07-06-2023 Telephone encounter Imad Asaad [facility] Start: 06-20-2023 End: 06-20-2023 ambulatory Kvng Melgar Other [employer] Other Start: 06-20-2023 Telephone encounter Kvng Ball [facility] Start: 06-15-2023 End: 06-15-2023 ambulatory Kvng Melgar Other [employer] Other Start: 06-15-2023 Telephone encounter Kvng Melgar [facility] Start: 06-08-2023 End: 06-08-2023 ambulatory Kvng Ball Other [facility] Other Start: 06-08-2023 Telephone encounter Kvng Ball [facility] Start: 05-31-2023 End: 05-31-2023 ambulatory Kvng Ball Other [facility] Other Start: 05-31-2023 Telephone encounter Kvng Melgar [facility] Start: 05-29-2023 End: 05-29-2023 ambulatory Kvng Melgar Other [facility] Other Start: 05-29-2023 Telephone encounter Kvng Ball [facility] Start: 05-28-2023 End: 05-28-2023 ambulatory Kvng Ball Other [employer] Other Start: 05-28-2023 Telephone encounter Kvng Melgar [facility] Start: 05-27-2023 End: 05-27-2023 ambulatory Kvng Ball Other [employer] Other Start: 05-27-2023 Office outpatient vi sit 25 minutes Kvng Ball [facility] Start: 05-25-2023 End: 05-25-2023 ambulatory Kvng Ball Other [employer] Other Start: 05-25-2023 Telephone encounter Kvng Ball [facility] Start: 05-20-2023 End: 05-20-2023 ambulatory Kvng Ball Other [employer] Other Start: 05-20-2023 Telephone encounter Kvng Ball [facility] Start: 05-10-2023 End: 05-10-2023 ambulatory Imad Asaad Other [employer] Other Start: 05-10-2023 Telephone encounter Imad Asaad [facility] Start: 04-26-2023 End: 04-26-2023 ambulatory Kvng Ball Other [employer] Other Start: 04-26-2023 Nursing evaluation o f patient and report Kvng Melgar [facility] Start: 03-23-2023 End: 03-23-2023 ambulatory Imad Asaad Other [employer] Other Start: 03-23-2023 Telephone encounter Imad Asaad [facility] Start: 03-10-2023 End: 03-10-2023 ambulatory Kvng Melgar Other [employer] Other Start: 03-10-2023 Telephone encounter Kvng Melgar [facility] Start: 03-07-2023 End: 03-07-2023 ambulatory Kvng Ermelinda Other [employer] Other Start: 03-07-2023 Telephone encounter Kvng Melgar [facility] Start: 03-04-2023 End: 03-04-2023 ambulatory Kvng Ermelinda Other [employer] Other Start: 03-04-2023 Office outpatient vi sit 15 minutes Kvng Ball [facility] Start: 02-28-2023 End: 02-28-2023 ambulatory Kvng Ball Other [employer] Other Start: 02-28-2023 Telephone encounter Kvng Ball [facility] Start: 02-22-2023 End: 02-22-2023 ambulatory Kvng Ball Other [employer] Other Start: 02-22-2023 Office outpatient vi sit 25 minutes Kvng Ball [facility] Start: 02-21-2023 End: 02-21-2023 ambulatory Kvng Ball Other [facility] Other Start: 02-21-2023 Telephone encounter [facility] Start: 01-24-2023 End: 01-24-2023 ambulatory Sadiq Beckham Other [employer] Other Start: 01-24-2023 Telephone encounter Sadiq Pollard [facility] Start: 01-24-2023 End: 01-24-2023 Admission to same day surgery center DO Kvng Melgar Work Phone: [facility] Work Phone: Start: 12-28-2022 End: 12-28-2022 ambulatory Kvng Melgar Other [employer] Other Start: 12-28-2022 Telephone encounter [facility] Start: 11-19-2022 End: 11-19-2022 ambulatory Kvng Melgar Other [facility] Other Start: 11-19-2022 Telephone encounter [facility] Start: 11-18-2022 End: 11-18-2022 ambulatory Kvng Melgar Other [employer] Other Start: 11-18-2022 Patient encounter procedure Kvng Melgar [facility] Start: 11-01-2022 End: 11-01-2022 ambulatory Imad Asaad Other [employer] Other Start: 11-01-2022 Telephone encounter Imad Asaad [facility] Start: 10-28-2022 Telephone encounter Sadiq Pollard [facility] Start: 10-28-2022 End: 10-28-2022 Admission to same day surgery center DO Kvng Ball Work Phone: [facility] Work Phone: Start: 10-28-2022 End: 10-28-2022 ambulatory DO Kvng Melgar Work Phone: [facility] Work Phone: Start: 10-21-2022 End: 10-21-2022 ambulatory Kvng Melgar Other [employer] Other Start: 10-21-2022 Telephone encounter Kvng Armstrong [facility] Start: 10-20-2022 End: 10-21-[address] KVNG MELGAR Facility:[facility] Start: 10-12-2022 End: 10-12-2022 ambulatory Kvng Melgar Other [employer] Other Start: 10-12-2022 Office outpatient vi sit 15 minutes Kvng Melgar [facility] Start: 10-12-2022 Telephone encounter Kvng Armstrong [employer] Start: 09-27-2022 End: 10-13-[address] KVNG MELGAR Facility: Start: 07-29-2022 End: 07-29-2022 ambulatory Kvng Melgar Other [employer] Other Start: 07-29-2022 Telephone encounter Kvng Armstrong [facility] Start: 07-27-2022 End: 07-27-2022 ambulatory KVNG MELGAR Facility:[facility] Start: 07-27-2022 End: 07-27-2022 Office outpatient visit 15 minutes Mavis Santiago MD Work Phone: Hematology/Oncology Comment on above: Iron deficiency (Danielle bethany Dx) Start: 07-26-2022 Telephone encounter Jeyson Diaz [facility] Start: 07-26-2022 End: 07-26-2022 Admission to same day surgery center DO Kvng Melgar Work Phone: [facility] Work Phone: Start: 07-26-2022 End: 07-26-2022 ambulatory DO Kvng Melgar Work Phone: [facility] Work Phone: Start: 07-22-2022 End: 07-22-2022 Patient encounter procedure DO Kvng Melgar Work Phone: [facility] Work Phone: Start: 07-21-2022 End: 07-21-2022 ambulatory Kvng Melgar Other [facility] Other Start: 07-21-2022 Office outpatient vi sit 25 minutes [facility] Start: 06-02-2022 Social Work Marcia Ramires DIESEL SERVICE TECHNICIAN Hematolo gy/Oncology Start: 05-25-2022 Telephone encounter Financial [...] Dx) Start: 05-18-2022 Telephone encounter Adebayo Armstrong [employer] Improvement [employer]ist Start: 05-17-2022 Chart abstracting Mavis abraham MD [...] 06-09-2021 Adult health examination Kvng Melgar Other [facility] Other Start: 08-02-2019 Preoperative cardiovascular examination Kvng Melgar Other [facility] Other Start: 05-31-2019 Gynecological examination normal Kvng Melgar Other [facility] Other Start: 01-05-2018 End: 01-06-2018 Evaluation and management of inpatient No Doctor Facility:[facility] Procedures Date Procedure Procedure Detail Performing Clinician [...] Iron deficiency Expected: 01/24/2023 (Approximate), Expires: 03/26/2023 [facility] Work Phone: Comment on above: Expected: 01/24/2023 (Approximate), Expires: 03/26/2023 Start: 01-24-2023 End: 07-27-2023 Ferritin [Mass/volume] in Serum or Plasma FERRITIN BLD Lab Routine Iron deficiency Expected: 01/24/2023 (Approximate), Expires: 07/27/2023 [facility] Work Phone: Comment on above: Expected: 01/24/2023 (Approximate), Expires: 07/27/2023 Start: 01-24-2023 End: 07-27-2023 Iron and Iron binding capacity panel - Serum or Plasma IRON + TIBC Lab Routine Iron deficiency Expected: 01/24/2023 (Approximate), Expires: 07/27/2023 [facility] Work Phone: Comment on above: Expected: 01/24/2023 (Approximate), Expires: 07/27/2023 Start: 01-24-2023 [facility] Start: 10-28-2022 [facility] Start: 07-27-2022 End: 09-26-2022 CBC W Auto Differential panel - Blood CBC + DIFF Lab Routine Iron deficiency Expected: 07/27/2022 (Approximate), Expires: 09/26/2022 [facility] Work Phone: Comment on above: Expected: 07/27/2022 (Approximate), Expires: 09/26/2022 Start: 07-27-2022 End: 05-18-2023 Ferritin [Mass/volume] in Serum or Plasma FERRITIN BLD Lab Routine Iron deficiency Expected: 07/27/2022 (Approximate), Expires: 05/18/2023 [facility] Work Phone: Comment on above: Expected: 07/27/2022 (Approximate), Expires: 05/18/2023 Start: 07-27-2022 End: 05-18-2023 Iron and Iron binding capacity panel - Serum or Plasma IRON + TIBC Lab Routine Iron deficiency Expected: 07/27/2022 (Approximate), Expires: 05/18/2023 [facility] Work Phone: Comment on above: Expected: 07/27/2022 (Approximate), Expires: 05/18/2023 Start: 07-27-2022 End: 09-26-2022 RETIC COUNT RETIC COUNT Lab Routine Iron deficiency Expected: 07/27/2022 (Approximate), Expires: 09/26/2022 [facility] Work Phone: Comment on above: Expected: 07/27/2022 (Approximate), Expires: 09/26/2022 Start: 07-26-2022 [facility] Start: 07-11-2022 ADVANCE DIRECTIVE DISCUSSION ADVANCE DIRECTIVE DISCUSSION [facility] Start: 07-11-2022 DEPRESSION ASSESSMENT DEPRESSION ASS [facility] Start: 03-11-2022 Influenza vaccination INFLUENZA (#1) [facility] Start: 01-30-2022 COVID-19 VACCINE (5 - Booster for Pfizer series) COVID-19 VACCINE (5 - Booster for Pfizer series) [facility] Start: 07-11-2021 ADVANCE DIRECTIVE DISCUSSION ADVANCE DIRECTIVE DISCUSSION [facility] Start: 07-11-2021 [facility] Start: 03-29-2019 PNEUMOCOCCAL: 65+ (2 - PCV) PNEUMOCOCCAL: 65+ (2 - PCV) [facility] Start: 11-15-2017 DIABETES SCREEN DIABETES SCREEN [facility] Start: 04-23-2016 PNEUMOCOCCAL: 65+ (2 - [...] [facility] Patient Education [facility] Work Phone: XR Knee - right 4 Views [facility] Immunizations Immunization Date Immunization Notes Care Provider Saurabh rico 04-26-2023 influenza, high dose seasonal, preservative-free Kvng Melgar Other [employer] Other 04-26-2023 influenza virus vaccine, unspecified formulation DO Kvng Melgar Work Phone: [facility] 10-19-2022 COVID-19 Pfizer (bivalent) Kvng Melgar Other [facility] 12-05-2021 COVID-19 Pfizer Kvng Pawan l Other [facility] 12-05-2021 COVID-19 Vaccine Pfi zer - Documentation Purposes Only Kvgn Melgar Other [facility] 04-14-2021 COVID-19 Vaccine Pfi zer - Documentation Purposes Only Kvng Melgar Other [facility] 04-06-2021 influenza virus vaccine, split virus (incl. purified surface antigen) Kvng Melgar Other [facility] Other 04-06-2021 influenza virus vaccine, unspecified formulation DO Kvng Melgar Work Phone: [facility] 04-06-2021 influenza, high-dose , quadrivalent vaccine (FLUZONE HIGH DOSE QUADRIVALENT) Mavis Santiago MD Work Phone: [facility] 08-27-2020 COVID-19 Vaccine Pfi zer - Documentation Purposes Only Kvng Melgar Other [facility] 08-04-2020 COVID-19 Vaccine Pfi zer - Documentation Purposes Only Kvng Melgar Other [facility] 04-04-2020 influenza virus vaccine, split virus (incl. purified surface antigen) Kvng Melgar Other [facility] Other 04-04-2020 influenza virus vaccine, unspecified formulation DO Kvng Melgar Work Phone: [facility] 04-04-2020 influenza, high-dose , quadrivalent vaccine (FLUZONE [...] (incl. purified surface antigen) Kvng Melgar Other [facility] Other 04-13-2018 influenza virus vaccine, unspecified formulation DO Kvng Melgar Work Phone: [facility] 04-13-2018 Seasonal trivalent influenza vaccine, adjuvanted, preservative [...] (incl. purified surface antigen) Kvng Melgar Other [employer] [facility] Other 04-27-2016 influenza virus vaccine, unspecified formulation DO Kvng Melgar Work Phone: [facility] 04-27-2016 influenza, high dose seasonal, preservative-free Mavis Santiago MD Work Phone: [facility] 04-23-2015 influenza, injectabl e, quadrivalent, preservative free Mavis Santiago MD Work Phone: [facility] 04-23-2015 pneumococcal polysaccharide vaccine, 23 valent Mavis Santiago MD Work Phone: [facility] 04-18-2015 influenza virus vaccine, split virus (incl. purified surface antigen) Kvng Melgar Other [facility] Other 04-18-2015 influenza virus vaccine, unspecified formulation DO Kvng Melgar Work Phone: [facility] 04-18-2015 pneumococcal conjuga te vaccine, 13 valent Kvng Melgar Other [facility] 05-21-2014 influenza, injectabl e, quadrivalent, contains preservative Adebayo Pan Other [facility] 04-26-2014 tetanus and diphther ia toxoids, adsorbed, preservative free, for adult use (5 Lf of tetanus toxoid and 2 Lf of diphtheria toxoid) Kvng Melgar Other [facility] 05-09-2013 pneumococcal polysaccharide vaccine, 23 valent Kvng Melgar Other [facility] 05-09-2013 tetanus and diphther ia toxoids, adsorbed, preservative free, for adult use (5 Lf of tetanus toxoid and 2 Lf of diphtheria toxoid) Kvng Melgar Other [facility] Payers Date Payer Category Payer Self-pay [id number] 2014 Private Health Insurance [id number] 2003 Medicare [id number] 2003 Unknown 1959 Medicare [id number] 1959 Private Health Insurance [id number] 1938 Unknown [id number] 2.16.84 [id number] 1938 Unknown [id number] 2.16.84 0.1.953876.3.579.2.593 1938 Unknown [id number] 2.16.84 0.1.805390.3.579.2.593 1938 Unknown [id number] 2.16.84 0.1.357366.3.579.2.593 1938 Unknown [id number] 2.16.84 0.1.476521.3.579.2.593 1938 Unknown [id number] 2.16.84 0.1.385126.3.579.2.593 1938 Unknown [id number] 2.16.84 0.1.363929.3.579.2.593 1938 Unknown [id number] 2.16.84 0.1.555655.3.579.2.593 1938 Unknown [id number] 2.16.84 0.1.209405.3.579.2.593 1938 Unknown [id number] 2.16.84 0.1.181611.3.579.2.1259 1938 Unknown [id number] 2.16.84 0.1.233701.3.579.2.1259 1938 Unknown [id number] 2.16.84 0.1.298993.3.579.2.1259 1938 Unknown [id number] 2.16.84 0.1.963097.3.579.2.1259 1938 Unknown [id number] 2.16.84 0.1.093833.3.579.2.1259 1938 Unknown [id number] 2.16.84 0.1.092165.3.579.2.1259 1938 Unknown [id number] 2.16. [id number] 1938 Unknown [id number] 2.16. [id number] Medicare [id number] Unknown [id number] 2.16.8 [id number] Unknown [id number] 2.16.8 [id number] Social History Date Type Detail Facility Start: 01-03-2015 End: 05-27-2023 Tobacco smoking status NHIS Ex-smoker [facility] History of tobacco use Current smoker [facility] Start: 01-03-2015 Tobacco use and exposure Smokeless tobacco non-user [facility] Start: 05-17-2022 End: 07-27-2022 Alcohol intake Ex-drinker (finding) [facility] Start: 1940 Sex Assigned At Not on file [facility] Start: 05-08-2022 End: 05-25-2022 Exposure to SARS-CoV-2 (event) Not sure [facility] Start: 07-26-2022 End: 10-28-2022 Tobacco smoking status NHIS Never smoked tobacco (finding) [facility] Start: 1940 Sex Assigned At Female F [facility] Sex Assigned At Sex Assigned At Bir th [facility] Other Goals Date Patient Goal Desired Activity /State Clinical Notes 11-28-2019 to 08-10-2023 Note Date & Type Note Facility 08-10-2023 Evaluation note Encounter Date Diagnosis Assessment Notes Jul, Epigastric pain (ICD-10 - R10.13) Jul, Constipation (ICD-10 - K59.00) Oct, Nausea (ICD-10 - R11.0) Nausea [facility] Other 12-11-2023 Evaluation note* Encounter Date Diagnosis Assessment Notes Treatment Notes Treatment Clinical Notes Jun, Lumbar spondylosis (ICD-10 - M47.816) [facility] Other 11-21-2023 Evaluation note* Encounter Date Diagnosis Assessment Notes Treatment Notes Treatment Clinical Notes May, Claustrophobia (ICD-10 - F40.240) [facility] Other 11-17-2023 Evaluation note* Encounter Date Diagnosis [...] May, Other specified hypothyroidism (ICD-10 - E03.8) [facility] Other 11-10-2023 Evaluation note* Encounter Date Diagnosis Assessment Notes Treatment Notes Treatment Clinical Notes May, Lumbar spondylosis (ICD-10 - M47.816) [facility] Other 09-13-2023 Evaluation note* Encounter Date Diagnosis Assessment Notes Treatment Notes Treatment Clinical Notes Mar, Chronic superficial gastritis with bleeding (ICD-10 - K29.31) [facility] Other 08-25-2023 Evaluation note* Encounter Date Diagnosis Assessment Notes Treatment Notes Treatment Clinical Notes Feb, Allergic contact dermatitis due to plants, except food (ICD-10 - L23.7) Cool compresses, topical steroids and begin Prednisone. _update on Feb, Cellulitis of left upper extremity (ICD-10 - L03.114) Elevate and begin antibiotics, update on Tuesday [facility] Other 08-15-2023 Evaluation note* Encounter Date Diagnosis [...] exercise for 30 minutes, 3-5 times weekly. [facility] Other 08-14-2023 Evaluation note* Encounter Date Diagnosis Assessment Notes Treatment Notes Treatment Clinical Notes Feb, Lumbar spondylosis (ICD-10 - M47.816) [facility] Other 06-20-2023 Evaluation note* Encounter Date Diagnosis Assessment Notes Treatment Notes Treatment Clinical Notes Dec, Autoimmune thyroiditis (ICD-10 - E06.3) [facility] Other 05-12-2023 Evaluation note* Encounter Date Diagnosis Assessment Notes Treatment Notes Treatment Clinical Notes November, Lumbar spondylosis (ICD-10 - M47.816) [facility] Other 05-11-2023 Evaluation note* Encounter Date Diagnosis [...] E03.8) November, Lumbar spondylosis (ICD-10 - M47.816) [facility]EDURE: XR HIP LT 2 3V W [...] Electronically authenticated by: ANTHONY GUIDRY Date: 2022-10-20 15:40[facility]04-04-2023 Evaluation note* Encounter Date Diagnosis Assessment Notes [...] mammogram for breast cancer (ICD-10 - Z12.31) [facility] Other 01-17-2023 NoteHNO ID: [id number] Author: Mavis Santiago MD Service: ? Author Type: Physician Type: Progress Notes Filed: 07/27/2022 2:56 PM Note Text: PATIENT NAME: Tangela Banks [facility] NO.: [id number] ATTENDING PHYSICIAN: Mavis Santiago MD DATE OF [...] Status 07/27/2022 18.0 (H) (more content not included)...[facility] 07-27-2022 History of Present illness Narrative* Mavis Santiago MD - 07/27/2022 2:48 PM EST PATIENT NAME: Tangela Trinidad [facility] NO.: [id number] ATTENDING PHYSICIAN: Mavis Santiago MD DATE OF [...] 07/27/2022 3.25 1.00 - 4.00 k/uL Final [place]% Date Value Ref Range Status 07/27/2022 14.0 % Final Abs [place] Date Value Ref Range Status 07/27/2022 1.25 [...] do not hesitate to contact me at [phone]. Mavis Santiago MD Hematology/Medical Oncology [facility]ra spent a total of 20 minutes on the date of the service which included preparing to see the patient, ifbw-ea-rtce patient care, completing clinical documentation, obtaining and/or reviewing separately obtained history, performing a medically appropriate examination, counseling and educating the pat ient/family/caregiver, and ordering medications, tests, or procedures. CC: Kvng Melgar DO documented [facility]* Encounter Date Diagnosis Assessment Notes Treatment Notes Treatment Clinical Notes Jul, Acute gastric ulcer without hemorrhage or perforation (ICD-10 - K25.3) [facility] Other [id number] Procedure [facility]01-11-2023 Evaluation note* Encounter Date Diagnosis Assessment [...] Healty diet, keep active, consistent sleep routine [facility] Other 11-23-2022 NoteHNO ID: [id number] Author: MONY Mart Service: ? Author Type: Database Report Writer Type: Progress Notes Filed: 06/02/2022 3:17 PM Note Text: Patient appears on the First Time Treatment List for a non-oncology treatment. No psychosocial assessment is indicated. KAYLEY Mart-[facility]11-23-2022 History of Present illness Narrative* MONY Mart - 06/02/2022 3:16 PM EST Patient appears on the First Time Treatment List for a non-oncology treatment. No psychosocial assessment is indicated. KAYLEY Mart-[place] documented in this encounter[facility]22 Miscellaneous Notes* Telephone Encounter - Mohit Tapia - 05/25/2022 3:32 PM EST 1st report of treatment-non oncology regimen (Monoferric) Patient holds Medicare coverage. No FA available at this time. documented in this encounter[facility]-2022 NoteHNO ID: [id number] Author: Mavis Santiago MD Service: ? Author Type: Physician Type: Progress Notes Filed: 05/18/2022 4:08 PM Note Text: PATIENT NAME: Tangela Trinidad [facility] NO.: [id number] ATTENDING PHYSICIAN: Mavis Santiago MD DATE OF [...] Final Lymph% Date Va (more content not included)...[facility]11-08-2022 History of Present illness Narrative* Mavis Santiago MD - 05/18/2022 3:51 PM EST PATIENT NAME: Tangela Trinidad CLINIC NO.: [id number] ATTENDING PHYSICIAN: Mavis Santiago MD DATE OF [...] 05/11/2018 2.74 1.00 - 4.00 k/uL Final [place]% Date Value Ref Range Status 05/11/2018 12.1 % Final Abs [place] Date Value Ref Range Status 05/11/2018 1.12 [...] do not hesitate to contact me at [phone]. Mavis Santiago MD Hematology/Medical Oncology [facility] I spent a total of 30 minutes on the date of the service which included preparing to see the patient, pxii-fg-cajz patient care, completing clinical documentation, obtaining and/or reviewing separately obtained history, performing a medically appropriate examination, counseling and educating the pat ient/family/caregiver, and ordering medications, tests, or procedures. Medical Decision Making: Medical Decision Making Level: 1 - N/A CC: Kvng Melgar DO documented in this encounterSelect [facility]11-19-2020 Progress note Author Nicho Bannerab [facility] May 29, 2020 11:30am Note Date/Time May 29, 2020 11:29am [facility] [place] [address] Hem/Onc Follow Up Note - OP Signed Patient: Tangela Trinidad MR#: [id number] : 1940 Acct:[id number] Age/Sex: 80 / F Type: REG RCR [...] Rash Penicillins Allergy (Verified 11/28/19 10:23) Hives Qmwmgfy-Tzh-Zkg Reductase Inhibitor Allergy (Verified 11/28/19 10:23) Unknown [...] Neut % (Auto) 50.8,Lymph % (Auto) 30.1, [place] % (Auto) 14.9, Eos % (Auto) 3.3, Baso % (Auto) 0.9, Neut # (Auto) 4.4, Lymph # (Auto) 2.6, [place] # (Auto) 1.3 H, Eos # (Auto) [...] for coordination of care (as documented) and yxvv-jf-kvim counseling of patient and/or family. Dictated By: Nicho Salcedo MD DD/ [id number] Signed By: <Electronically signed by MD Nicho Salcedo> 05/29/20 1130 [facility] Work Phone: [phone] 660-124905-20-2020 Progress note Author Nicho Salcedo [facility] November 28, 2019 12:52pm Note Date/Time November 28, 2019 12:50 pm [facility] [place] [address] Hem/Onc Follow Up Note - OP Signed Patient: Tangela Trinidad MR#: [id number] : 1940 Acct:[id number] Age/Sex: 79 / F Type: REG RCR [...] feels fine. She has no complaints today. [facility] - Social History Smoking Status: Never smoker Home Medications & Allergies Allergies Cephalosporins Allergy (Verified 11/28/19 10:23) Unknown Reaction nitrofurantoin [From Macrodantin] Allergy (Verified 11/28/19 10:23) Rash Penicillins Allergy (Verified 11/28/19 10:23) Hives Dnsfksq-Dxt-Rgm Reductase Inhibitor Allergy (Verified 11/28/19 10:23) Unknown [...] Neut % (Auto) 49.9,Lymph % (Auto) 27.3, [place] % (Auto) 15.1, Eos % (Auto) 6.5, Baso % (Auto) 1.2, Neut # (Auto) 4.3, Lymph # (Auto) 2.4, [place] # (Auto) 1.3 H, Eos # (Auto) [...] for coordination of care (as documented) and evbj-bm-smns counseling of patient and/or family. Dictated By: Nicho Salcedo MD DD/ [id number] Signed By: <Electronically signed by MD Nicho Salcedo> 11/28/19 1252 [facility] Work Phone: Evaluation note* Diagnosis Iron deficiency- Primary Iron deficiency anemia, unspecified documented in this encounter [facility] note* Diagnosis Iron deficiency anemia, unspecified iron deficiency anemia type- Primary Iron deficiency Iron deficiency anemia, unspecified [facility] Diagnosis Iron deficiency- Primary Iron deficiency anemia, unspecified [facility] noteNo assessment information availableOhiohealth Doctors Hospital Work Phone: Evaluation noteNo [employer] [employer] Other Evaluation note* Diagnosis Onset Date Resolution [...] acute Medicare annual wellness visit, subsequent noneactive [facility] Work Phone: History and physical note Author Jeyson Diaz [facility] July 26, 2022 8:09am Note Date/Time July 26, 2022 8 :09am [facility] [address] [place] [address] Gastroenterology H&P Signed Patient: Tangela Trinidad MR#: [id number] : 1940 Acct:[id number] Age/Sex: 82 / F Adm Date: 3 Loc: Room: Type: [facility] Attending Dr: Jeyson Diaz MD Copies to: [...] <Electronically signed by Jeyson Diaz MD> 07/26/22808 [facility] Work Phone: History and physical note Author Jeyson Diaz [facility] October 28, 2022 1:13pm Note Date/Time October 28, 2022 1:1 3pm [facility] [address] [place] [address] Gastroenterology H&P Signed Patient: Tangela Trinidad MR#: [id number] : 1940 Acct:[id number] Age/Sex: 82 / F Adm Date: 3 Loc: Room: Type: [facility] Attending Dr: Jeyson Diaz MD Copies to: [...] signed by Jeyson Diaz MD> 10/28/22 1313 [facility] Work Phone: History general Narrative - Reported* Type Description Date Medical History Cervical spondylosis Medical History Vitamin D deficiency Medical History Hyponatremia Medical History [place] Medical History Fatigue Medical History Depression screening Medical History Encounter for screening breast e xamination Medical History Leukocytosis 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 Medical History Essential hypertension Medical History [...] History colonoscopy 07/26/22 Hospitalization History see above [facility] Other History general Narrative - Reported* Type Description Date Medical History Cervical spondylosis Medical History Vitamin D deficiency Medical History Hyponatremia Medical History [place] Medical History Fatigue Medical History Depression screening Medical History Encounter for screening breast e xamination Medical History Leukocytosis Medical History Chronic lttc-WGYWM-00 syndrome Medical History Essential hypertension Medical History [...] w/ biopsy 10/2022 Hospitalization History see above [facility] Other Hisyyih general Narrative - Reported* Type Description Date Medical History Cervical spondylosis Medical History Vitamin D deficiency Medical History Hyponatremia Medical History [place] Medical History Fatigue Medical History Depression screening Medical History Encounter for screening breast e xamination Medical History Leukocytosis Medical History Chronic uijk-QHZNU-83 syndrome Medical History Essential hypertension Medical History [...] History EGD 01/2023 Hospitalization History see above [facility] Other Hospital Discharge instructions Additional Instructions DISCHARGE [...] NOT operate machinery such as power tools, [employer] mowers, snow blowers, sewing machines, etc. for [...] -Follow up with PCP. - Office number [phone]. [facility] Work Phone: Hospital Discharge instructions Additional [...] NOT operate machinery such as power tools, [employer] mowers, snow blowers, sewing machines, etc. for [...] problems. -Follow up with PCP. -Office number [phone]. [facility] Work Phone: Hospital Discharge instructions Additional [...] NOT operate machinery such as power tools, [employer] mowers, [employer] blowers, sewing machines, etc. for 24 hours. [...] problems. -Follow up with PCP. -Office number [phone]. [facility] Work Phone: Summary Purpose Family History [...] DATE CREATED AUTHOR AUTHOR'S ORGANIZ ATION 08/04/2022 [facility] DATE CREATED AUTHOR AUTHOR'S ORGANIZ ATION 11/10/2022 [facility] DATE CREATED AUTHOR AUTHOR'S ORGANIZ ATION 03/25/2024 [facility] DATE CREATED AUTHOR AUTHOR'S ORGANIZ ATION 03/31/2024 [facility] DATE CREATED AUTHOR AUTHOR'S ORGANIZ ATION 04/13/2024 [facility] Source Comments (unrecognize d section and content) [...] Active Jeyson Diaz MD Attending Provider Active Clinical Staff Pharmacist Relationship Specialty Start Date End Date Kvng Melgar DO PCP - General Internal Medicine 11/14/14 Clinical Staff Pharmacist Relationship Specialty Start Date End Date Kvng Melgar DO PCP - General Internal Medicine 11/14/14 Clinical Staff Pharmacist Relationship Specialty Start Date End Date Kvng Melgar PCP - General Internal Medicine 11/14/14 Clinical Staff Pharmacist Relationship Specialty Start Date End Date Kvng Melgar PCP - General Internal Medicine 11/14/14 Clinical Staff Pharmacist Relationship Specialty Start Date End Date ErmelindaKvng DO PCP - General Internal Medicine 11/14/14 Clinical Staff Pharmacist Relationship Specialty Start Date End Date Kvng [...] anemia type Iron deficiency Mavis Santiago MD [address] [place] [address] [address] Treat [address] [place] [address] Referral ID Status Reason Start Date Expiration Date V isits Requested Visits Authorized [id number] Authorized 05/18/2022 08/16/2022 99 99 Reason Comments [...] BE BASED ON THE PRIMARY CLINICAL RECORDS. [facility]. provides no warranty or guarantee of the accuracy or completeness of information in this document.
[2024-04-23 11:27] VITALS: BP 132/90; PULSE 70; TEMP 36.7; O2SAT 99
[2024-04-23 12:17] VITALS: BP 155/78; PULSE 72; O2SAT 98
[2024-04-23] MEDS: IOHEXOL 240 MG/ML - 10 ML VIAL INJ (12:17)
[2024-04-23] MEDS: BUPIVACAINE HCL 0.25% PF 25 MG/10 ML VIAL 5 ML INJ (12:17)
[2024-04-23] MEDS: TRIAMCINOLONE ACETONIDE 40 MG/ML VIAL INJ (12:18)
[2024-04-23] MEDS: LIDOCAINE HCL 2% 400 MG/20 ML MDV 15 ML INJ (12:18)
[2024-04-23 12:19] VITALS: BP 163/75; PULSE 72; O2SAT 98
--- NOTE | 2024-04-23 12:19 | W.PM.PROCNOT ---
Date of procedure: 04/23/24 Pre-op diagnosis: Pain due to right sacroiliitis Post-op diagnosis: same as pre-op Procedure: Procedure: Right sacroiliac joint injection Medications: Bupivacaine 0.25% 3cc, kenalog 40mg After informed consent was obtained, the patient was brought to the medical procedure unit and placed in the prone position, when a timeout was completed verifying correct patient, procedure, site, positioning, implant, and/or special equipment.? The skin overlying the area was prepped and draped in standard sterile fashion using alcohol.? A 25-gauge needle was inserted towards the right sacroiliac joint under direct fluoroscopic imaging.? Needle tip was advanced until the joint was encountered.? We instilled a total of 2 mL of solution.? Postoperatively needles were removed.? The patient tolerated the procedure well without complication.? The patient reported reduction in pain symptoms postoperatively. Anesthesia: Local Surgeon: Charlotte Levi Pathology: none sent Condition: stable Disposition: no change
== END 2024-04-23 12:22 | disposition home or self-care (01) ==
LOC: SURGOUT 11:00
PROVIDERS: PCP Internal Medicine; Visit Provider Anesthesiology
DX: M46.1 Sacroiliitis, not elsewhere classified (principal)
CPT/HCPCS: 27096; J0665; J3301; Q9966

== ENCOUNTER 2024-05-03 11:10 | Outpatient (OUT) | payer MEDICARE, OTHER, SELFPAY ==
--- OUTSIDE RECORDS SUMMARY | 2024-05-03 11:19 | XMS_ITS | CCD ---
Author Organization [facility] Care Team Providers Care Radiology Asst Name Role Phone Doctor, No Unavailable Unavailable Doctor, No Unavailable Unavailable Donnell Barton Unavailable Unavailable Donnell Barton Unavailable Unavailable Kvng Melgar DO Primary Care Provider Kvng Melgar DO Primary Care Provider DO Kvng Melgar Primary Care Provider [phone] MD Jeyson Diaz Attending Provider KVNG MELGAR Primary Care Unavailable MAVIS SANTIAGO Referring Unavailable MAVIS SANTIAGO Attending Unavailable KVNG MELGAR Primary Care Unavailable KVNG MELGAR Primary Care Unavailable MAVIS SANTIAGO Attending Unavailable KVNG MELGAR Referring Unavailable KVNG EMLGAR Primary Care Unavailable Adebayo Pan Unavailable Kvng [...] Care Provider MD Jeyson Diaz Attending Provider [phone] Ermelinda, DO Calderon Primary Care Provider MD Joe Imprice Attending Provider [phone] Ermelinda, DO Calderon Primary Care Provider DO Lorelei Hurtado Attending Provider Kvng Melgar Primary Care Unavailable Lorelei Hurtado Admitting Unavailab Lorelei Wetzel Attending Unavailab le Ermelinda, Kvng Primary Care Unavailable Asaad, Imad Admitting Unavailable Asaad, Imad Attending Unavailable TED GILMORE Attending Unavailable TED GILMORE Referring Unavailable LORELEI HURTADO Attending Unavailable LORELEI UHRTADO Attending Unavailable NICHO MARC Attending Unavailable LORELEI HURTADO Attending Unavailable Gurmeet REDD, Charlotte Costa Attending Unavailable Gurmeet REDD, Charlotte Costa Attending Unavailable Allergies Allergy Classification Reported Allergen(s) Allergy Type Date of Onset Reaction(s) Facility (8 sources) Penicillins; Translations: [PENICILLINS] Drug allergy (disorder) 11-16-19 15 AOF, Hives, Hives, PENICILLINS [facility] Repository (8 sources) Sulfonamides (Antibiotic); Translations: [SULFA (SULFONAMIDE ANTIBIOTICS)] Drug allergy (disorder) 11-16-19 15 AOF, Hives, Hives, Comment:2005 [facility] Repository (7 sources) Gpukbkv-Ouo-Tyt Reductase Inhibitor Drug allergy (disorder) 01-06-20 18 Unknown Reaction, Unknown Reaction, muscle aches [facility] Rep[facility] (20 sources) Cephalosporins (Antibiotic); Translations: [CEPHALOSPORINS] Drug Allergy 10-24-19 15 Unknown [facility] (7 sources) HMG-CoA reductase inhibitor; Translations: [MVBDKAY-DAM-BIP REDUCTASE INHIBITORS] Drug Allergy 01-06-20 18 Unknown [facility] (7 sources) Nitrofurantoin; Translations: [NITROFURANTOIN MACROCRYSTAL] Drug Allergy 10-12-19 19 Rash, Itching [facility] (6 sources) Penicillins Drug Allergy 11-16-[address] [facility] (20 sources) Povidone-Iodine; Translations: [POVIDONE-IODINE] Drug Allergy 06-21-20 19 Unknown [facility] (20 sources) Sulfonamides (Antibiotic) Drug Allergy 11-16-[address] [facility] (20 sources) Vancomycin; Translations: [VANCOMYCIN] Drug Allergy 10-12-19 19 Rash, Itching [facility] (20 sources) Nitrofurantoin; Translations: [nitrofurantoin] Drug Allergy 12-02-19 21 rash [facility] (20 sources) Penicillin G Benzathine Drug allergy rash [facility]usemelon Other (20 sources) Sulfacetamide / Sulfur Drug Allergy rash Melon #usemelon Other (20 sources) Statins Depletion Drug allergy muscle aches [facility] [employer] Other (1 source) black walnut pollen extract Drug Allergy 05-17-20 14 [facility] Repository (1 source) Cephalosporins (Antibiotic) Drug allergy (disorder) 10-24-19 15 [facility] (2 sources) Nitrofurantoin Drug Allergy 10-24-19 15 rash [facility] (1 source) Penicillins Drug allergy (disorder) 01-24-20 13 [facility] (2 sources) Povidone-Iodine Drug Allergy 06-21-20 19 Unknown [facility] (1 source) Sulfonamides (Antibiotic) Drug allergy (disorder) 01-31-20 13 [facility] (1 source) Vancomycin Drug Allergy 10-24-19 15 [facility] (20 sources) Statins Depletion *DIETARY PRODUCTS/DIETARY MANAGE Propensity to adverse reactions Unknown [facility]em[employer] Other (20 sources) Substance with penicillin structure and antibacterial mechanism of action (substance) Drug allergy 04-30-20 06 PENICILLINS [facility]em[employer] Other (20 sources) Sulf-10 Drug allergy 12-01-19 06 SULFA 10 [facility] #[employer]emelon Other (1 source) Vancomycin Drug Allergy rash [facility] #[employer]em[employer] Other (1 source) Cephalosporins (Antibiotic) Drug allergy (disorder) 03-16-20 [facility] Repository (1 source) Povidone-Iodine Drug Allergy 03-16-20 [facility] Repository (1 source) Vancomycin Drug Allergy 03-16-20 [facility] Repository Medications Current Medications Medication Drug Class(es) [...] by mouth every four to six hours Miokkeo-Jsnmjmzdtptpb-Ahconzcy (Excedrin Migraine) 250-250-65 mg Tablet Active 1 TAB PO EVERY 4-6 HOURS July 26, 2022 1:00am take 2 tablets by mouth every si x hours Excedrin Migraine 250-250-65 MG 2 tablets as needed Orally every 6 hrs Active [id number] actuat albuterol 0.09 mg/actuat metered dose [...] sources) Multivitamin Act kerri Multivitamin Not -Taking [place] 3 1200 MG (20 sources) take 1 capsule by mo ut once daily [place] 3 1200 MG 1 capsule Orally Once a day Active take 1 capsule by mouth once taniya ly [place] 3 1200 MG 1 capsule Orally Once [...] needed Orally every 6 hrs Not-Taking Vit C,A-Ap-Lgjtm-Lutein-Zeax an (Preservision Areds-2) 250-90-40-1 mg Capsule (5 sources) Start: 07-26-2022 Vit C,B-Cg-Kimgm-Lutein-Zeax an (Preservision Areds-2) 250-90-40-1 mg Capsule Active 1 TAB PO Twice daily July 26, 2022 1:00am Start: 07-26-2022 Vit C,E-Zn-Client Support Consultant gl-Hhhezk-Zjnxlo (Preservision Areds-2) 250-90-40-1 mg Capsule Active 1 [...] Comment on above: Take by mouth. CA/D3/MAG OX/ZINC/DIRECTOR OF BRAND MARKETING/MEREDITH/ BOR (CALCIUM 600+D3 PLUS ORAL) (6 sources) take 1200 mg by mouth once daily CA/D3/MAG OX/ZINC/DIRECTOR OF BRAND MARKETING/MEREDITH/B OR (CALCIUM 600+D3 PLUS ORAL) Take 1,200 [...] mg by mouth twice daily. 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 03-16-2024 CT chest w [facility] [place] [address] CT Scan Report Signed Patient: Tangela Trinidad MR#: [id number] : 1940 Acct:[id number] Age/Sex: 84 / F ADM Date: 03/16/24 Loc: CT Room: Type: [facility] Attending Dr: Lorelei Hurtado DO Copies [...] Viveros Jr., D.O.03/16/2024 2:09 PM Dictation Location: [place] [address] Transcribed By: [facility] 03/16/24 1409 Dictated By: Bert Viveros Jr, DO 03/16/24 1403 Signed By: 03/16/24 1409 Normal [facility] Creatinineon 03-16-2024 GFR/1.73 sq M.predicted MDRD (S/P/Bld) [Vol rate/Area] mL/min/{1.73_m2} Normal [facility] Comment on above: Result Comment: PERF ORMED BY: [place] [address] PATHOLOGIST TURPENTINER SPEEDY GRAY M.D. Performed By: #### C REAT #### [facility] [address] [place] [address] Creatinine [Mass/volume] in Serum or PlasmaOrdered By: Lorelei Hurtado on 03-16-2024 Creatinine [Mass/Vol] 0.83 mg/dL Normal 0.60-1.20 [facility] Comment on above: Performed By: #### C REAT #### [facility] [address] [place] [address] No Panel InformationOrdered By: Lorelei Hurtado on 03-16-2024 Estimated GFR (CKD-EPI) > 60.0 mL/Min [facility] Creatinine Clearance (Chem N/A [facility] NM gastric emptying studyon 07-25-2023 NM gastric emptying study [facility] Main [place] [id number] Nuclear Medicine Report Signed Patient: Tangela Trinidad MR#: [id number] : 1940 Acct:[id number] Age/Sex: 83 / F ADM Date: 07/25/23 Loc: [place] Room: Type: [facility] Attending Dr: Jeyson Diaz MD Copies to: MD Gaston Li Jeffrey S DO Ordering Provider: Jeyson Diaz MD Date of Service: 07/25/23 NM/NM gastric emptying study: Nausea Nuclear medicine gastric emptying examination TECHNIQUE: 1.1mCi of technetium 99m sulfur colloid in oatmeal. COMPARISON: None HISTORY: Nausea. Stomach ulcers last year. The one half emptying time of the stomach is 25minutes. NM/NC gastric emptying study IMPRESSION: Adequate gastric emptying Impression dictated by: Matt Feldman M.D.07/25/2023 9:40 AM Dictation Location: [place] [address] Transcribed By: [facility] 07/25/23 0940 Dictated By: Matt Feldman DO 07/25/23 0934 Signed By: 07/25/23 0940 Normal [facility] MG MAMM SCREEN 3D ROXANA CADon 10-20-2022 MG MAMM SCREEN 3D ROXANA CAD Patient: TANGELA TRINIDAD. Exam Date: 10/20/2022 : 1940 Gender:F Ordering : DR KVNG MELGAR D.O. Admission #: [id number] Family : Order #: [id number] CLICK HERE TO VIEW EXAM RADIOLOGY REPORT [...] melonoma cancer at age 64. LOCATION: [facility] BREAST COMPOSITION: Scattered areas fibroglandular density. FINDINGS: [...] Guidry M.D. on 10/20/2022 at 13:19 Normal [facility] CBC W Auto Differential pane l (Bld)on 07-27-2022 Basophils (Bld) [#/Vol] 0.08 10*3/uL Normal <0.11 [facility] Comment on above: Order Comment: Speci men Type: BLOOD SPECIMEN Ordering Facility: [facility] Address: [address] [place] [address] Performed By: #### 1 4196-0, 67288-4 #### [facility] CLIA [id number] [address] [place] [address] 15697 Basophils/100 WBC (Bld) 0.9 % Normal [facility] Comment on above: Order Comment: Speci men Type: BLOOD SPECIMEN Ordering Facility: [facility] Address: [address] [place] [address] Performed By: #### 1 4196-0, 63056-2 #### [facility] CLIA [id number] [address] [place] [address] 57899 Differential cell count method Nom (Bld) Auto Normal [facility] Comment on above: Order Comment: Speci men Type: BLOOD SPECIMEN Ordering Facility: [facility] Address: [address] [place] [address] Performed By: #### 1 4196-0, 93541-4 #### [facility] CLIA [id number] [address] [place] [address] 00306 Eosinophils (Bld) [#/Vol] 0.52 10*3/uL High <0.46 [facility] Comment on above: Order Comment: Speci men Type: BLOOD SPECIMEN Ordering Facility: [facility] Address: [address] [place] [address] Performed By: #### 1 4196-0, 88732-1 #### [facility] CLIA [id number] [address] [place] [address] 27548 Eosinophils/100 WBC (Bld) 5.8 % Normal [facility] Comment on above: Order Comment: Speci men Type: BLOOD SPECIMEN Ordering Facility: [facility] Address: [address] [place] [place] [address] Performed By: #### 1 4196-0, 25880-6 #### [facility] CLIA [id number] [address] [place] [address] 56742 Erythrocyte distribution width (RBC) [Ratio] 18.0 % High 11.5-15.0 [facility] Comment on above: Order Comment: Speci men Type: BLOOD SPECIMEN Ordering Facility: [facility] Address: [address] [place] [address] Performed By: #### 1 4196-0, 49495-6 #### [facility] CLIA [id number] [address] [place] [address] 94346 Hematocrit (Bld) [Volume fraction] 39.6 % Normal 36.0-46.0 [facility] Comment on above: Order Comment: Speci men Type: BLOOD SPECIMEN Ordering Facility: [facility] Address: [address] [place] [address] Performed By: #### 1 4196-0, 68833-0 #### [facility] CLIA [id number] [address] [place] [address] 12337 Hemoglobin (Bld) [Mass/Vol] 13.0 g/dL Normal 11.5-15.5 [facility] Comment on above: Order Comment: Speci men Type: BLOOD SPECIMEN Ordering Facility: [facility] Address: [address] [place] [address] Performed By: #### 1 4196-0, 58830-7 #### [facility] CLIA [id number] [address] [place] [address] 24593 Immature granulocytes (Bld) [#/Vol] 0.04 10*3/uL Normal <0.10 [facility] Comment on above: Order Comment: Speci men Type: BLOOD SPECIMEN Ordering Facility: [facility] Address: [address] [place] [address] Performed By: #### 1 4196-0, 41156-9 #### [facility] CLIA [id number] [address] [place] [address] 70190 Immature granulocytes/100 WBC (Bld) 0.4 % Normal [facility] Comment on above: Order Comment: Speci men Type: BLOOD SPECIMEN Ordering Facility: [facility] Address: [address] [place] [place] [address] Performed By: #### 1 4196-0, 25879-4 #### [facility] CLIA [id number] [address] [place] [address] 32093 Lymphocytes (Bld) [#/Vol] 3.25 10*3/uL Normal 1.00-4.00 [facility] Comment on above: Order Comment: Speci men Type: BLOOD SPECIMEN Ordering Facility: [facility] Address: [address] [place] [place] [address] Performed By: #### 1 4196-0, 88727-9 #### [facility] CLIA [id number] [address] [place] [address] 08434 Lymphocytes/100 WBC (Bld) 36.3 % Normal [facility] Comment on above: Order Comment: Speci men Type: BLOOD SPECIMEN Ordering Facility: [facility] Address: [address] [place] [place] [address] Performed By: #### 1 4196-0, 91158-1 #### [facility] CLIA [id number] [address] [place] [address] 29913 MCH (RBC) [Entitic mass] 28.3 pg Normal 26.0-34.0 [facility] Comment on above: Order Comment: Speci men Type: BLOOD SPECIMEN Ordering Facility: [facility] Address: [address] [place] [address] Performed By: #### 1 4196-0, 57673-8 #### [facility] CLIA [id number] [address] [place] [address] 15068 MCHC (RBC) [Mass/Vol] 32.8 g/dL Normal 30.5-36.0 [facility] Comment on above: Order Comment: Speci men Type: BLOOD SPECIMEN Ordering Facility: [facility] Address: [address] [place] [address] Performed By: #### 1 4196-0, 12387-3 #### [facility] CLIA [id number] [address] [place] [address] 38543 MCV (RBC) [Entitic vol] 86.1 fL Normal 80.0-100.0 [facility] Comment on above: Order Comment: Speci men Type: BLOOD SPECIMEN Ordering Facility: [facility] Address: [address] [place] [address] Performed By: #### 1 4196-0, 03700-6 #### [facility] CLIA [id number] [address] [place] [address] 01329 Monocytes (Bld) [#/Vol] 1.25 10*3/uL High <0.87 [facility] Comment on above: Order Comment: Speci men Type: BLOOD SPECIMEN Ordering Facility: [facility] Address: [address] [place] [address] Performed By: #### 1 4196-0, 74942-8 #### [facility] CLIA [id number] [address] [place] [address] 19752 Monocytes/100 WBC (Bld) 14.0 % Normal [facility] Comment on above: Order Comment: Speci men Type: BLOOD SPECIMEN Ordering Facility: [facility] Address: [address] [place] [address] Performed By: #### 1 4196-0, 14618-8 #### [facility] CLIA [id number] [address] [place] [address] 36681 Neutrophils (Bld) [#/Vol] 3.81 10*3/uL Normal 1.45-7.50 [facility] Comment on above: Order Comment: Speci men Type: BLOOD SPECIMEN Ordering Facility: [facility] Address: [address] [place] [address] Performed By: #### 1 4196-0, 20015-7 #### [facility] CLIA [id number] [address] [place] [address] 00053 Neutrophils/100 WBC (Bld) 42.6 % Normal [facility] Comment on above: Order Comment: Speci men Type: BLOOD SPECIMEN Ordering Facility: [facility] Address: [address] [place] [address] Performed By: #### 1 4196-0, 79880-6 #### [facility] CLIA [id number] [address] [place] [address] 33471 Nucleated RBC (Bld) [#/Vol] 10*3/uL Normal <0.01 [facility] Comment on above: Order Comment: Speci men Type: BLOOD SPECIMEN Ordering Facility: [facility] Address: [address] [place] [address] Performed By: #### 1 4196-0, 70204-3 #### [facility] CLIA [id number] [address] [place] [address] 99250 Nucleated RBC/100 WBC (Bld) [Ratio] 0.0 /100 WBC Normal [facility] Comment on above: Order Comment: Speci men Type: BLOOD SPECIMEN Ordering Facility: [facility] Address: [address] [place] [address] Performed By: #### 1 4196-0, 47870-3 #### [facility] CLIA [id number] [address] [place] [address] 47030 Platelet mean volume (Bld) [Entitic vol] 9.5 fL Normal 9.0-12.7 [facility] Comment on above: Order Comment: Speci men Type: BLOOD SPECIMEN Ordering Facility: [facility] Address: [address] [place] [address] Performed By: #### 1 4196-0, 27214-6 #### [facility] CLIA [id number] [address] [place] [address] 00289 Platelets (Bld) [#/Vol] 379 10*3/uL Normal 150-400 [facility] Comment on above: Order Comment: Speci men Type: BLOOD SPECIMEN Ordering Facility: [facility] Address: [address] [place] [address] Performed By: #### 1 4196-0, 75842-8 #### [facility] CLIA [id number] [address] [place] [address] 49011 RBC (Bld) [#/Vol] 4.60 10*6/uL Normal 3.90-5.20 [facility] Comment on above: Order Comment: Speci men Type: BLOOD SPECIMEN Ordering Facility: [facility] Address: [address] [place] [address] Performed By: #### 1 4196-0, 95292-5 #### [facility] CLIA [id number] [address] [place] [address] 52418 WBC (Bld) [#/Vol] 8.95 10*3/uL Normal 3.70-11.00 [facility] Comment on above: Order Comment: Speci men Type: BLOOD SPECIMEN Ordering Facility: [facility] Address: [address] [place] [address] Performed By: #### 1 4196-0, 08491-2 #### [facility] CLIA [id number] [address] [place] [address] 40056 CNOVSPon 07-27-2022 CNOVSP Visit (SP) Office (HEMASA) TANGELA TRINIDAD ([id number]) 1940 F Date Time Provider Department 07/27/22 2:45 PM MAVIS SANTIAGO During your visit today, we recorded the following information about you: Temperature Pulse Respiration Blood pressure 98.1 degrees 64/minute 16/minute 125/72 Weight Height 66.5 kg 1.524 m Mavis Santiago MD 07/27/2022 2:56 PM Signed PATIENT NAME: Tangela Trinidad CLINIC NO.: [id number] ATTENDING PHYSICIAN: Mavis Santiago MD DATE OF [...] Range Status (more content not included)... Normal [facility] Ferritin SerPl-mCncon 2022 Ferritin [Mass/Vol] 104.0 ng/mL Normal 14.7-205.1 [facility] Comment on above: Order Comment: Dayana soliz Type: BLOOD SPECIMEN Ordering Facility: [facility] Address: [address] [place], [place] [address] Performed By: #### 5 0190-8, 2276-4 #### [facility] CLIA [id number] [address] [place] [address] [place] Iron and Iron binding capaci ty panelon 07-27-2022 Iron [Mass/Vol] 43 ug/dL Normal 41-186 [facility] Comment on above: Order Comment: Dayana soliz Type: BLOOD SPECIMEN Ordering Facility: [facility] Address: [address] [place], [place] [address] Performed By: #### 5 0190-8, 2276-4 #### [facility] CLIA [id number] [address] [place] [address] Iron binding capacity [Mass/Vol] 265 ug/dL Normal 232-386 [facility] Comment on above: Order Comment: Speci men Type: BLOOD SPECIMEN Ordering Facility: [facility] Address: [address] [place] [address] Performed By: #### 5 0190-8, 2276-4 #### [facility] CLIA [id number] [address] [place] [address] [place] Iron/TIBC [Molar ratio] 16.2 % Normal 15.0-57.0 [facility] Comment on above: Order Comment: Speci men Type: BLOOD SPECIMEN Ordering Facility: [facility] Address: [address] [place] [address] Performed By: #### 5 0190-8, 2276-4 #### [facility] CLIA [id number] [address] [place] [address] [place] Retics #on 07-27-2022 Reticulocytes (Bld) [#/Vol] 0.04898 10*3/uL Normal 0.018-0.100 [facility] Comment on above: Order Comment: Speci men Type: BLOOD SPECIMEN Ordering Facility: [facility] Address: [address] [place] [address] Performed By: #### 1 4196-0, 53732-3 #### [facility] CLIA [id number] [address] [place] [address] 77777 Reticulocytes (Bld) [#/Vol]o n 07-27-2022 Reticulocytes/100 RBC (Bld) 0.9 % Normal 0.4-2.0 [facility] Comment on above: Order Comment: Speci men Type: BLOOD SPECIMEN Ordering Facility: [facility] Address: [address] [place] [address] [place] [address] Performed By: #### 1 4196-0, 13321-8 #### [facility] CLIA [id number] [address] [place] [address] 34189 COVID-19 SOFIAOrdered By: Brandy Diaz on 07-22-2022 SARS-CoV+SARS-CoV-2 (COVID-19) Ag IA.rapid Ql (Resp) Negative Negative [facility] Comment on above: This is a duplicate Heidi SARS Antigen (DB) result to be used for statistical tracking purpose only. No Panel InformationOrdered By: Jeyson Diaz on 07-22-2022 SARS Antigen (LFIA) [facility]on 06-02-2022 [facility] Social Work ([place]) TANGELA TRINIDAD ([id number]) 1940 F Date Time Provider Department 06/02/22 MARCIA RAMIRES During your visit today, we recorded the following information about you: MONY Mart 06/02/2022 3:17 PM Signed Patient appears on the First Time Treatment List for a non-oncology treatment. No psychosocial assessment is indicated. KAYLEY Matr-Aida Allergies As of Date: 06/02/2022 Noted Allergy Reaction CEPHALOSPORINS 10/23/2014 16 - Unknown MACRODANTIN (NITROFURANTOIN MACRO*10/11/2018 2 - Rash 9 - Itching PENICILLINS 11/15/2014 4 - Hives POVIDONE-IODINE 06/21/2019 16 - Unknown YDLMACW-KSZ-TAW REDUCTASE INHIBIT*01/05/2018 16 - Unknown SULFA (SULFONAMIDE [...] 112 mcg tablet 0.125 mcg. - CA/D3/MAG OX/ZINC/DIRECTOR OF BRAND MARKETING/MEREDITH/BOR (CALCIUM 600+D3 PLUS ORAL) Take 1,200 mg by mouth once daily. - atenolol (TENORMIN) 25 mg tablet Take 1 tablet by mouth once daily. Problem List As Of Date 06/02/2022 Noted Resolved Anemia [D64.9] 11/15/2014 Iron deficiency [E61.1] 11/15/2014 Encounter Status:Closed by MARCIA RAMIRES on 06/02/22 [facility] 05-25-2022 [place] Telephone (HE[place]) TANGELA TRINIDAD ([id number]) 1940 F Date Time Provider Department 05/25/22 [employer] DAMON BREWER During your visit today, we recorded the following information about you: Mohit Lo [facility] 05/25/2022 3:35 PM Signed 1st report of treatment-non oncology regimen (Monoferric) Patient holds Medicare coverage. No FA available at this time. Allergies As of Date: 05/25/2022 Noted Allergy Reaction CEPHALOSPORINS 10/23/2014 16 - Unknown MACRODANTIN (NITROFURANTOIN MACRO*10/11/2018 2 - Rash 9 - Itching PENICILLINS 11/15/2014 4 - Hives POVIDONE-IODINE 06/21/2019 16 - Unknown KZDWPFN-MUU-MAG REDUCTASE INHIBIT*01/05/2018 16 - Unknown SULFA (SULFONAMIDE [...] 112 mcg tablet 0.125 mcg. - CA/D3/MAG OX/ZINC/DIRECTOR OF BRAND MARKETING/MEREDITH/BOR (CALCIUM 600+D3 PLUS ORAL) Take 1,200 mg [...] Encounter Status:Closed by MOHIT SANTOS [facility]) Office ([place]) TANGELA TRINIDAD ([id number]) 1940 F Date Time Provider Department 05/18/22 4:00 PM MAVIS SANTIAGO During your visit today, we recorded the following information about you: Temperature Pulse Respiration Blood pressure 98.1 degrees 78/minute 16/minute 122/78 Weight 68 kg Mavis Santiago MD 05/18/2022 4:08 PM Signed PATIENT NAME: Tangela Trinidad CLINIC NO.: [id number] ATTENDING PHYSICIAN: Mavis Santiago MD DATE OF [...] Range Status (more content not included)... Normal [facility] IMMUNOFIXATION(ELISE),PROTEIN ELEC(PE),FREon 05-06-2022 Albumin [Mass/Vol] 2.9 g/dL Normal 2.9-4.4 [facility] Comment on above: Performed By: #### I FEPEFL #### [facility] [address] [place] [address] Dr. Yayo Gregg Albumin/Globulin [Mass ratio] 1.2 {ratio} Normal 0.7-1.7 [facility] Comment on above: Performed By: #### I FEPEFL #### [facility] [address] [place] [address] Dr. Yayo Gregg Ptswj-6-Daaerfrl 0.3 g/dL Normal 0.0-0.4 [facility] Comment on above: Performed By: #### I FEPEFL #### [facility] [address] [place] [address] Dr. Yayo Gregg Lnota-5-Zjakcwpy 0.7 g/dL Normal 0.4-1.[address] [facility] Comment on above: Performed By: #### I FEPEFL #### [facility] [address] [place] [address] Dr. Yayo Gregg Beta Globulin 0.9 g/dL Normal 0.7-1.3 [facility] Comment on above: Performed By: #### I FEPEFL #### [facility] [address] [place] [address] Dr. Yayo Gregg Free Crump Lt Chains,S 39.9 mg/L Critically high 3.3-19.4 [facility] Comment on above: Performed By: #### I FEPEFL #### [facility] [address] [place] [address] Dr. Yayo Gregg Free Lambda Lt Chains,S 22.7 mg/L Normal 5.7-26.3 [facility] Comment on above: Performed By: #### I FEPEFL #### [facility] [address] [place] [address] Dr. Yayo Gregg Gamma Globulin 0.6 g/dL Normal 0.4-1.8 [facility] Comment on above: Performed By: #### I FEPEFL #### [facility] [address] [place] [address] Dr. Yayo Gregg Globulin (S) [Mass/Vol] 2.6 g/dL Normal 2.2-3.9 [facility] Comment on above: Performed By: #### I FEPEFL #### [facility] [address] [place] [address] Dr. Yayo Gregg Immunofixation Result, Serum Comment Normal [facility] Comment on above: Result Comment: No m onoclonality detected. Performed By: #### I FEPEFL #### [facility] [address] [address] [address] Yayo Gregg Immunoglobulin A, Qn, Serum 81 mg/dL Normal 64-422 [facility] Comment on above: Performed By: #### I FEPEFL #### [facility] [address] [place] [address] Dr. Yayo Gregg Immunoglobulin G, Qn, Serum 547 mg/dL Critically low 586-1602 [facility] Comment on above: Performed By: #### I FEPEFL #### [facility] [address] [place] [address] Dr. Yayo Gregg Immunoglobulin M, Qn, Serum 92 mg/dL Normal 26-217 [facility] Comment on above: Performed By: #### I FEPEFL #### [facility] [address] [place] [address] Dr. Yayo Gregg Crump/Lambda Ratio, S 1.76 Critically high 0.26-1.65 [facility] Comment on above: Performed By: #### I FEPEFL #### [facility] [address] [place] [address] Dr. Yayo Gregg M-Johan Not Observed Normal Not Observed [facility] Comment on above: Performed By: #### I FEPEFL #### [facility] [address] [place] [address] Dr. Yayo Gregg PDF . Normal [facility] Comment on above: Performed By: #### I FEPEFL #### [facility] [address] [place] [address] Dr. Yayo Gregg Please note: Comment Normal [facility] Comment on above: Result Comment: Prot ein electrophoresis scan will follow via computer, mail, or hoop punch operator helper delivery. Performed By: #### I FEPEFL #### [facility] [address] [place] [address] Dr. Yayo Gregg Protein [Mass/Vol] 5.5 g/dL Critically low 6.0-8.5 [facility] Comment on above: Performed By: #### I FEPEFL #### [facility] [address] [place] [address] Dr. Yayo Gregg IMMUNOGLOBULINS IGA/IGM/IGG QUANTITATIVEon 05-05-2022 Immunoglobulin A, Qn, Serum 83 mg/dL Normal 64-422 [facility] Comment on above: Performed By: #### I MMUNGL #### [facility] [address] [place] [address] Dr. Yayo Gregg Immunoglobulin G, Qn, Serum 559 mg/dL Critically low 586-1602 [facility] Comment on above: Performed By: #### I MMUNGL #### [facility] [address] [place] [address] Dr. Yayo Gregg Immunoglobulin M, Qn, Serum 93 mg/dL Normal 26-217 [facility] Comment on above: Performed By: #### I MMUNGL #### [facility] [address] [place] [address] Dr. Yayo Gregg CBC AUTO DIFFon 05-04-2022 BASO # 0.1 103/ul Normal 0.0-0.1 [facility] Comment on above: Performed By: #### I MMUNGL #### [facility] [address] [place] [address] Dr. Yayo Gregg Basophils/100 WBC (Bld) 0.9 % Normal 0.2-2.0 [facility] Comment on above: Performed By: #### I MMUNGL #### [facility] [address] [place] [address] Dr. Yayo Gregg EO # 0.7 103/ul Normal 0.0-0.7 [facility] Comment on above: Performed By: #### I MMUNGL #### [facility] [address] [place] [address] Dr. Yayo Gregg Eosinophils/100 WBC (Bld) 6.7 % Normal 0.9-7.0 [facility] Comment on above: Performed By: #### I MMUNGL #### [facility] [address] [place] [address] Dr. Yayo Gregg Erythrocyte distribution width (RBC) [Ratio] 15.6 % Critically high 11.0-15.0 [facility] Comment on above: Performed By: #### I MMUNGL #### [facility] [address] [address] [address] Yayo Gregg Hematocrit (Bld) [Volume fraction] 31.3 % Critically low 36.0-48.0 [facility] Comment on above: Performed By: #### I MMUNGL #### [facility] [address] [place] [address] Dr. Yayo Gregg Hemoglobin (Bld) [Mass/Vol] 10.0 g/dL Critically low 12.0-16.0 [facility] Comment on above: Performed By: #### I MMUNGL #### [facility] [address] [place] [address] Dr. Yayo Gregg IG # 0.04 10e3/ul Critically high 0.00-0.03 [facility] Comment on above: Performed By: #### I MMUNGL #### [facility] [address] [place] [address] Dr. Yayo Gregg IG % 0.4 % Normal 0.0-0.5 [facility] Comment on above: Performed By: #### I MMUNGL #### [facility] [address] [address] [address] Yayo Gregg LYMPH # 2.9 103/ul Normal 1.2-3.8 [facility] Comment on above: Performed By: #### I MMUNGL #### [facility] [address] [place] [address] Dr. Yayo Gregg Lymphocytes/100 WBC (Bld) 29.6 % Normal 20.5-60.0 [facility] Comment on above: Performed By: #### I MMUNGL #### [facility] [address] [place] [address] Dr. Yayo Gregg MANUAL DIFF REQ NO Normal [facility] Comment on above: Performed By: #### I MMUNGL #### [facility] [address] [place] [address] Dr. Yayo Gregg MCH (RBC) [Entitic mass] 25.7 pg Critically low 26.7-34.0 [facility] Comment on above: Performed By: #### I MMUNGL #### [facility] [address] [place] [address] Dr. Yayo Gregg MCHC (RBC) [Mass/Vol] 31.9 g/dL Normal 29.9-35.2 [facility] Comment on above: Performed By: #### I MMUNGL #### [facility] [address] [place] [address] Dr. Yayo Gregg MCV (RBC) [Entitic vol] 80.5 fL Critically low 81.0-99.0 [facility] Comment on above: Performed By: #### I MMUNGL #### [facility] [address] [place] [address] Dr. Yayo Gregg MONO # 1.4 103/ul Critically high 0.3-0.8 [facility] Comment on above: Performed By: #### I MMUNGL #### [facility] [address] [place] [address] Dr. Yayo Gregg Monocytes/100 WBC (Bld) 14.5 % Critically high 1.7-12.0 [facility] Comment on above: Performed By: #### I MMUNGL #### [facility] [address] [place] [address] Dr. Yayo Gregg NEUT # 4.7 103/ul Normal 1.4-6.5 [facility] Comment on above: Performed By: #### I MMUNGL #### [facility] [address] [place] [address] Dr. Yayo Gregg Neutrophils/100 WBC (Bld) 47.9 % Normal 43.0-75.0 [facility] Comment on above: Performed By: #### I MMUNGL #### [facility] [address] [place] [address] Dr. Yayo Gregg Platelet mean volume (Bld) [Entitic vol] 9.5 fL Normal 9.5-13.5 [facility] Comment on above: Performed By: #### I MMUNGL #### [facility] [address] [place] [address] Dr. Yayo Gregg PLT 457 103/ul Critically high 150-450 [facility] Comment on above: Performed By: #### I MMUNGL #### [facility] [address] [address] [address] Yayo Gregg RBC 3.89 106/ul Critically low 4.20-5.40 [facility] Comment on above: Performed By: #### I MMUNGL #### [facility] [address] [address] [address] Yayo Gregg WBC 9.8 103/ul Normal 4.0-11.0 [facility] Comment on above: Performed By: #### I MMUNGL #### [facility] [address] [place] [address] Dr. Yayo Gregg FERRITINon 05-04-2022 Ferritin [Mass/Vol] 20.0 ng/mL Normal 8.0-252.0 [facility] Comment on above: Performed By: #### F ERR, FETIBC #### [facility] [address] [place] [address] Dr. Yayo Gregg IRON AND TIBCon 05-04-2022 % SATURATION 5.7 % Normal [facility] Comment on above: Performed By: #### F ERR, FETIBC #### [facility] [address] [place] [address] Dr. Yayo Gregg Iron [Mass/Vol] 18.0 ug/dL Critically low 50.0-170.0 [facility] Comment on above: Performed By: #### F ERR, FETIBC #### [facility] [address] [place] [address] Dr. Yayo Gregg TIBC DIRECT 318.0 ug/dL Normal 250.0-450.0 [facility] Comment on above: Performed By: #### F ERR, FETIBC #### [facility] [address] [place] [address] Dr. Yayo Gregg PROF CHEM 8 (BAS METB)on Anion gap [Moles/Vol] 11.7 mmol/L Normal [facility] Comment on above: Performed By: #### I MMUNGL #### [facility] [address] [address] [address] Yayo Gregg Calcium [Mass/Vol] 8.1 mg/dL Critically low 8.5-10.1 Th [facility] Comment on above: Performed By: #### I MMUNGL #### [facility] [address] [address] [address] Yayo Gregg Chloride [Moles/Vol] 100 mmol/L Normal 98-107 [facility] Comment on above: Performed By: #### I MMUNGL #### [facility] [address] [address] [address] Yayo Gregg CO2 [Moles/Vol] 25.7 mmol/L Normal 21.0-32.0 [facility] Comment on above: Performed By: #### I MMUNGL #### [facility] [address] [place] [address] Dr. Yayo Gregg Creatinine [Mass/Vol] 1.06 mg/dL Critically high 0.55-1.02 [facility] Comment on above: Performed By: #### I MMUNGL #### [facility] [address] [place] [address] Dr. Yayo Gregg EGFR-AF GABONESE =60 Normal >=60 [facility] Comment on above: Performed By: #### I MMUNGL #### [facility] [address] [place] [address] Dr. Yayo Gregg EGFR-NON AF GABONESE 49 mL/min/1.73m2 Critically low >=60 [facility] Comment on above: Performed By: #### I MMUNGL #### [facility] [address] [place] [address] Dr. Yayo Gregg Glucose [Mass/Vol] 121 mg/dL Critically high 74-106 [facility] Comment on above: Performed By: #### I MMUNGL #### [facility] [address] [place] [address] Dr. Yayo Gregg Potassium [Moles/Vol] 4.4 mmol/L Normal 3.5-5.1 [facility] Comment on above: Performed By: #### I MMUNGL #### [facility] [address] [place] [address] Dr. Yayo Gregg Sodium [Moles/Vol] 133 mmol/L Critically low 136-145 [facility] Comment on above: Performed By: #### I MMUNGL #### [facility] [address] [place] [address] Dr. Yayo Gregg Urea nitrogen [Mass/Vol] 16.0 mg/dL Normal 7.0-18.0 [facility] Comment on above: Performed By: #### I MMUNGL #### [facility] [address] [place] [address] Dr. Yayo Gregg Urea nitrogen/Creatinine [Mass ratio] 15.1 mg/mg Normal [facility] Comment on above: Performed By: #### I MMUNGL #### [facility] [address] [place] [address] Dr. Yayo Mckeon PROTEIN SERUMon 05-04-2022 Protein [Mass/Vol] 6.0 g/dL Critically low 6.4-8.2 Th [facility] Comment on above: Performed By: #### I MMUNGL #### [facility] [address] [place] [address] Dr. Yayo Gregg TSHon 05-04-2022 TSH 1.715 uIU/mL Normal 0.358-3.740 [facility] Comment on above: Performed By: #### I MMUNGL #### [facility] [address] [place] [address] Dr. Yayo Gregg CBC AUTO DIFFon 03-26-2022 BASO # 0.1 103/ul Normal 0.0-0.1 [facility] Comment on above: Performed By: #### C BC #### [facility] [address] [place] [address] Dr. Yayo Gregg Basophils/100 WBC (Bld) 1.0 % Normal 0.2-2.0 [facility] Comment on above: Performed By: #### C BC #### [facility] [address] [place] [address] Dr. Yayo Gregg EO # 0.8 103/ul Critically high 0.0-0.7 [facility] Comment on above: Performed By: #### C BC #### [facility] [address] [place] [address] Dr. Yayo Gregg Eosinophils/100 WBC (Bld) 7.6 % Critically high 0.9-7.0 [facility] Comment on above: Performed By: #### C BC #### [facility] [address] [place] [address] Dr. Yayo Gregg Erythrocyte distribution width (RBC) [Ratio] 15.1 % Critically high 11.0-15.0 [facility] Comment on above: Performed By: #### C BC #### [facility] [address] [place] [address] Dr. Yayo Gregg Hematocrit (Bld) [Volume fraction] 32.0 % Critically low 36.0-48.0 [facility] Comment on above: Performed By: #### C BC #### [facility] [address] [place] [address] Dr. Yayo Gregg Hemoglobin (Bld) [Mass/Vol] 10.4 g/dL Critically low 12.0-16.0 [facility] Comment on above: Performed By: #### C BC #### [facility] [address] [place] [address] Dr. Yayo Gregg IG # 0.05 10e3/ul Critically high 0.00-0.03 [facility] Comment on above: Performed By: #### C BC #### [facility] [address] [place] [address] Dr. Yayo Gregg IG % 0.5 % Normal 0.0-0.5 [facility] Comment on above: Performed By: #### C BC #### [facility] [address] [place] [address] Dr. Yayo Gregg LYMPH # 2.9 103/ul Normal 1.2-3.8 [facility] Comment on above: Performed By: #### C BC #### [facility] [address] [place] [address] Dr. Yayo Gregg Lymphocytes/100 WBC (Bld) 27.7 % Normal 20.5-60.0 [facility] Comment on above: Performed By: #### C BC #### [facility] [address] [place] [address] Dr. Yayo Gregg MANUAL DIFF REQ NO Normal [facility] Comment on above: Performed By: #### C BC #### [facility] [address] [place] [address] Dr. Yayo Gregg MCH (RBC) [Entitic mass] 26.5 pg Critically low 26.7-34.0 [facility] Comment on above: Performed By: #### C BC #### [facility] [address] [place] [address] Dr. Yayo Gregg MCHC (RBC) [Mass/Vol] 32.5 g/dL Normal 29.9-35.2 [facility] Comment on above: Performed By: #### C BC #### [facility] [address] [place] [address] Dr. Yayo Gregg MCV (RBC) [Entitic vol] 81.4 fL Normal 81.0-99.0 [facility] Comment on above: Performed By: #### C BC #### [facility] [address] [place] [address] Dr. Yayo Gregg MONO # 1.3 103/ul Critically high 0.3-0.8 [facility] Comment on above: Performed By: #### C BC #### [facility] [address] [place] [address] Dr. Yayo Gregg Monocytes/100 WBC (Bld) 12.5 % Critically high 1.7-12.0 [facility] Comment on above: Performed By: #### C BC #### [facility] [address] [place] [address] Dr. Yayo Gregg NEUT # 5.2 103/ul Normal 1.4-6.5 [facility] Comment on above: Performed By: #### C BC #### [facility] [address] [place] [address] Dr. Yayo Gregg Neutrophils/100 WBC (Bld) 50.7 % Normal 43.0-75.0 [facility] Comment on above: Performed By: #### C BC #### [facility] [address] [place] [address] Dr. Yayo Gregg Platelet mean volume (Bld) [Entitic vol] 9.6 fL Normal 9.5-13.5 [facility] Comment on above: Performed By: #### C BC #### [facility] [address] [place] [address] Dr. Yayo Gregg PLT 409 103/ul Normal 150-450 [facility] Comment on above: Performed By: #### C BC #### [facility] [address] [place] [address] Dr. Yayo Gregg RBC 3.93 106/ul Critically low 4.20-5.40 [facility] Comment on above: Performed By: #### C BC #### [facility] [address] [place] [address] Dr. Yayo Gregg WBC 10.3 103/ul Normal 4.0-11.0 [facility] Comment on above: Performed By: #### C BC #### [facility] [address] [place] [address] Dr. Yayo Gregg FERRITINon 03-26-2022 Ferritin [Mass/Vol] 22.0 ng/mL Normal 8.0-252.0 [facility] Comment on above: Performed By: #### I MMUNGL #### [facility] [address] [place] [address] Dr. Yayo Gregg CBC AUTO DIFFon 02-09-2022 BASO # 0.1 103/ul Normal 0.0-0.1 [facility] Comment on above: Performed By: #### C BC #### [facility] [address] [place] [address] Dr. Yayo Gregg Basophils/100 WBC (Bld) 0.7 % Normal 0.2-2.0 [facility] Comment on above: Performed By: #### C BC #### [facility] [address] [place] [address] Dr. Yayo Gregg EO # 0.9 103/ul Critically high 0.0-0.[address] [facility] Comment on above: Performed By: #### C BC #### [facility] [address] [place] [address] Dr. Yayo Gregg Eosinophils/100 WBC (Bld) 7.5 % Critically high 0.9-7.0 [facility] Comment on above: Performed By: #### C BC #### [facility] [address] [place] [address] Dr. Yayo Gregg Erythrocyte distribution width (RBC) [Ratio] 15.1 % Critically high 11.0-15.0 [facility] Comment on above: Performed By: #### C BC #### [facility] [address] [place] [address] Dr. Yayo Gregg Hematocrit (Bld) [Volume fraction] 32.5 % Critically low 36.0-48.0 [facility] Comment on above: Performed By: #### C BC #### [facility] [address] [place] [address] Dr. Yayo Gregg Hemoglobin (Bld) [Mass/Vol] 10.9 g/dL Critically low 12.0-16.0 [facility] Comment on above: Performed By: #### C BC #### [facility] [address] [place] [address] Dr. Yayo Gregg IG # 0.16 10e3/ul Critically high 0.00-0.03 [facility] Comment on above: Performed By: #### C BC #### [facility] [address] [place] [address] Dr. Yayo Gregg IG % 1.3 % Critically high 0.0-0.[address] [facility] Comment on above: Performed By: #### C BC #### [facility] [address] [place] [address] Dr. Yayo Gregg LYMPH # 2.9 103/ul Normal 1.2-3.8 [facility] Comment on above: Performed By: #### C BC #### [facility] [address] [place] [address] Dr. Yayo Gregg Lymphocytes/100 WBC (Bld) 24.0 % Normal 20.5-60.0 [facility] Comment on above: Performed By: #### C BC #### [facility] [address] [place] [address] Dr. Yayo Gregg MANUAL DIFF REQ NO Normal [facility] Comment on above: Performed By: #### C BC #### [facility] [address] [place] [address] Dr. Yayo Gregg MCH (RBC) [Entitic mass] 27.2 pg Normal 26.7-34.0 [facility] Comment on above: Performed By: #### C BC #### [facility] [address] [place] [address] Dr. Yayo Gregg MCHC (RBC) [Mass/Vol] 33.5 g/dL Normal 29.9-35.2 [facility] Comment on above: Performed By: #### C BC #### [facility] [address] [place] [address] Dr. Yayo Gregg MCV (RBC) [Entitic vol] 81.0 fL Normal 81.0-99.0 [facility] Comment on above: Performed By: #### C BC #### [facility] [address] [place] [address] Dr. Yayo Gregg MONO # 1.6 103/ul Critically high 0.3-0.8 [facility] Comment on above: Performed By: #### C BC #### [facility] [address] [place] [address] Dr. Yayo Gregg Monocytes/100 WBC (Bld) 13.4 % Critically high 1.7-12.0 [facility] Comment on above: Performed By: #### C BC #### [facility] [address] [place] [address] Dr. Yayo Gregg NEUT # 6.3 103/ul Normal 1.4-6.5 [facility] Comment on above: Performed By: #### C BC #### [facility] [address] [place] [address] Dr. Yayo Gregg Neutrophils/100 WBC (Bld) 53.1 % Normal 43.0-75.0 [facility] Comment on above: Performed By: #### C BC #### [facility] [address] [place] [address] Dr. Yayo Gregg Platelet mean volume (Bld) [Entitic vol] 9.4 fL Critically low 9.5-13.5 [facility] Comment on above: Performed By: #### C BC #### [facility] [address] [place] [address] Dr. Yayo Gregg PLT 426 103/ul Normal 150-450 [facility] Comment on above: Performed By: #### C BC #### [facility] [address] [place] [address] Dr. Yayo Gregg RBC 4.01 106/ul Critically low 4.20-5.40 [facility] Comment on above: Performed By: #### C BC #### [facility] [address] [place] [address] Dr. Yayo Gregg WBC 11.9 103/ul Critically high 4.0-11.0 [facility] Comment on above: Performed By: #### C BC #### [facility] [address] [place] [address] Dr. Yayo Gregg FERRITINon 02-09-2022 Ferritin [Mass/Vol] 36.0 ng/mL Normal 8.0-252.0 [facility] Comment on above: Performed By: #### V ITB12, FETIBC, FERR #### [facility] [address] [place] [address] Dr. Yayo Gregg IRON AND TIBCon 02-09-2022 % SATURATION 5.2 % Normal [facility] Comment on above: Performed By: #### V ITB12, FETIBC, FERR #### [facility] [address] [place] [address] Dr. Yayo Gregg Iron [Mass/Vol] 16.0 ug/dL Critically low 50.0-170.0 [facility] Comment on above: Performed By: #### V ITB12, FETIBC, FERR #### [facility] [address] [place] [address] Dr. Yayo Gregg TIBC DIRECT 305.0 ug/dL Normal 250.0-450.0 [facility] Comment on above: Performed By: #### V ITB12, FETIBC, FERR #### [facility] [address] [place] [address] Dr. Yayo Gregg VITAMIN B12on 02-09-2022 Cobalamin (Vitamin B12) [Mass/Vol] 819.0 pg/mL Normal 193.0-986.0 [facility] Comment on above: Performed By: #### V ITB12, FETIBC, FERR #### [facility] [address] [place] [address] Dr. Yayo Gregg BNPon 01-27-2022 Natriuretic peptide B (Bld) [Mass/Vol] 270.0 pg/mL Normal <=1,800.0 [facility] Comment on above: Performed By: #### I MMUNGL #### [facility] [address] [place] [address] Dr. Yayo Gregg CARDIAC TARAN ADMITon 022 CK [Catalytic activity/Vol] 143 U/L Normal 26-192 [facility] Comment on above: Performed By: #### I MMUNGL #### [facility] [address] [place] [address] Dr. Yayo Gregg CK.MB [Mass/Vol] 2.66 ng/mL Normal <=3.[address] [facility] Comment on above: Performed By: #### I MMUNGL #### [facility] [address] [place] [address] Dr. Yayo Gregg HSTROP 4.0 pg/mL Normal 4.0-51.3 [facility] Comment on above: Result Comment: CUT- OFF POINTS HAVE BEEN ESTABLISHED BASED ON THE FOURTH UNIVERSAL DEFINITIONS OF MYOCARDIAL INFARCTION. THE UPPER REFERENCE LIMIT (URL) OF TROPONIN, DEFINED THE 99TH PERCENTILE OF cTnI DISTRIBUTION IN A REFERENCE POPULATION, HAS BEEN CONFIRMED THE DECISION THRESHOLD FOR [place] DIAGNOSIS. Performed By: #### I MMUNGL #### [facility] [address] [place] [address] Dr. Yayo Gregg CARA 113 ng/mL Critically high 9-[address] [facility] Comment on above: Performed By: #### I MMUNGL #### [facility] [address] [place] [address] Dr. Yayo Gregg CBC AUTO DIFFon 01-27-2022 BASO # 0.1 103/ul Normal 0.0-0.1 [facility] Comment on above: Performed By: #### C BC #### [facility] [address] [place] [address] Dr. Yayo Gregg Basophils/100 WBC (Bld) 0.7 % Normal 0.2-2.0 [facility] Comment on above: Performed By: #### C BC #### [facility] [address] [place] [address] Dr. Yayo Gregg EO # 1.1 103/ul Critically high 0.0-0.7 [facility] Comment on above: Performed By: #### C BC #### [facility] [address] [place] [address] Dr. Yayo Gregg Eosinophils/100 WBC (Bld) 7.3 % Critically high 0.9-7.0 [facility] Comment on above: Performed By: #### C BC #### [facility] [address] [place] [address] Dr. Yayo Gregg Erythrocyte distribution width (RBC) [Ratio] 13.8 % Normal 11.0-15.0 [facility] Comment on above: Performed By: #### C BC #### [facility] [address] [place] [address] Dr. Yayo Gregg Hematocrit (Bld) [Volume fraction] 34.4 % Critically low 36.0-48.0 [facility] Comment on above: Performed By: #### C BC #### [facility] [address] [place] [address] Dr. Yayo Gregg Hemoglobin (Bld) [Mass/Vol] 11.3 g/dL Critically low 12.0-16.0 [facility] Comment on above: Performed By: #### C BC #### [facility] [address] [place] [address] Dr. Yayo Gregg IG # 0.09 10e3/ul Critically high 0.00-0.03 [facility] Comment on above: Performed By: #### C BC #### [facility] [address] [place] [address] Dr. Yayo Gregg IG % 0.6 % Critically high 0.0-0.5 [facility] Comment on above: Performed By: #### C BC #### [facility] [address] [place] [address] Dr. Yayo Gregg LYMPH # 2.5 103/ul Normal 1.2-3.8 [facility] Comment on above: Performed By: #### C BC #### [facility] [address] [place] [address] Dr. Yayo Gregg Lymphocytes/100 WBC (Bld) 16.6 % Critically low 20.5-60.0 [facility] Comment on above: Performed By: #### C BC #### [facility] [address] [place] [address] Dr. Yayo Gregg MANUAL DIFF REQ NO Normal [facility] Comment on above: Performed By: #### C BC #### [facility] [address] [place] [address] Dr. Yayo Gregg MCH (RBC) [Entitic mass] 26.7 pg Normal 26.7-34.0 [facility] Comment on above: Performed By: #### C BC #### [facility] [address] [place] [address] Dr. Yayo Gregg MCHC (RBC) [Mass/Vol] 32.8 g/dL Normal 29.9-35.2 [facility] Comment on above: Performed By: #### C BC #### [facility] [address] [place] [address] Dr. Yayo Gregg MCV (RBC) [Entitic vol] 81.1 fL Normal 81.0-99.0 [facility] Comment on above: Performed By: #### C BC #### [facility] [address] [place] [address] Dr. Yayo Gregg MONO # 2.1 103/ul Critically high 0.3-0.[address] [facility] Comment on above: Performed By: #### C BC #### [facility] [address] [place] [address] Dr. Yayo Gregg Monocytes/100 WBC (Bld) 14.0 % Critically high 1.7-12.0 [facility] Comment on above: Performed By: #### C BC #### [facility] [address] [place] [address] Dr. Yayo Gregg NEUT # 9.1 103/ul Critically high 1.4-6.[address] [facility] Comment on above: Performed By: #### C BC #### [facility] [address] [place] [address] Dr. Yayo Gregg Neutrophils/100 WBC (Bld) 60.8 % Normal 43.0-75.0 [facility] Comment on above: Performed By: #### C BC #### [facility] [address] [place] [address] Dr. Yayo Gregg Platelet mean volume (Bld) [Entitic vol] 10.2 fL Normal 9.5-13.5 [facility] Comment on above: Performed By: #### C BC #### [facility] [address] [place] [address] Dr. Yayo Gregg PLT 455 103/ul Critically high 150-[address] [facility] Comment on above: Performed By: #### C BC #### [facility] [address] [place] [address] Dr. Yayo Gregg RBC 4.24 106/ul Normal 4.20-5.40 [facility] Comment on above: Performed By: #### C BC #### [facility] [address] [place] [address] Dr. Yayo Gregg WBC 14.9 103/ul Critically high 4.0-11.0 [facility] Comment on above: Performed By: #### C BC #### [facility] [address] [place] [address] Dr. Yayo Gregg Covid-19 PCR (CVDTB)on 01-09 SARS-CoV-2 (COVID-19) RNA CHANTALE+probe Ql (Unsp spec) Not detected Normal NOT DETECTED [facility] Comment on above: Result Comment: When diagnostic [...] for this test is supported by the [place] of Health and Human Service's declaration that [...] used). Performed By: #### C BC #### [facility] [address] [place] [address] Dr. Yayo Gregg PROF 14(COMP METB)on 022 Albumin [Mass/Vol] 3.0 g/dL Critically low 3.4-5.0 [facility] Comment on above: Performed By: #### I MMUNGL #### [facility] [address] [place] [address] Dr. Yayo Gregg Albumin/Globulin [Mass ratio] 0.9 {ratio} Normal [facility] Comment on above: Performed By: #### I MMUNGL #### [facility] [address] [place] [address] Dr. Yayo Gregg ALP [Catalytic activity/Vol] 95 U/L Normal 46-116 [facility] Comment on above: Performed By: #### I MMUNGL #### [facility] [address] [place] [address] Dr. Yayo Gregg ALT [Catalytic activity/Vol] 28 U/L Normal 14-59 [facility] Comment on above: Performed By: #### I MMUNGL #### [facility] [address] [address] [address] Yayo Gregg Anion gap [Moles/Vol] 11.9 mmol/L Normal [facility] Comment on above: Performed By: #### I MMUNGL #### [facility] [address] [address] [address] Yayo Gregg AST [Catalytic activity/Vol] 24 U/L Normal 15-37 [facility] Comment on above: Performed By: #### I MMUNGL #### [facility] [address] [address] [address] Yayo Gregg Bilirubin [Mass/Vol] 0.3 mg/dL Normal 0.2-1.0 [facility] Comment on above: Performed By: #### I MMUNGL #### [facility] [address] [place] [address] Dr. Yayo Gregg Calcium [Mass/Vol] 8.8 mg/dL Normal 8.5-10.1 [facility] Comment on above: Performed By: #### I MMUNGL #### [facility] [address] [address] [address] Yayo Gregg Chloride [Moles/Vol] 98 mmol/L Normal 98-107 [facility] Comment on above: Performed By: #### I MMUNGL #### [facility] [address] [place] [address] Dr. Yayo Gregg CO2 [Moles/Vol] 24.6 mmol/L Normal 21.0-32.0 [facility] Comment on above: Performed By: #### I MMUNGL #### [facility] [address] [place] [address] Dr. Yayo Gregg Creatinine [Mass/Vol] 0.91 mg/dL Normal 0.55-1.02 [facility] Comment on above: Performed By: #### I MMUNGL #### [facility] [address] [place] [address] Dr. Yayo rGegg EGFR-AF GABONESE >60 Normal >=[address] [facility] Comment on above: Performed By: #### I MMUNGL #### [facility] [address] [address] [address] Yayo Gregg EGFR-NON AF GABONESE 59 mL/min/1.73m2 Critically low >=60 [facility] Comment on above: Performed By: #### I MMUNGL #### [facility] [address] [address] [address] Yayo Gregg Globulin (S) [Mass/Vol] 3.3 g/dL Normal [facility] Comment on above: Performed By: #### I MMUNGL #### [facility] [address] [address] [address] Yayo Gregg Glucose [Mass/Vol] 95 mg/dL Normal 74-106 [facility] Comment on above: Performed By: #### I MMUNGL #### [facility] [address] [address] [address] Yayo Gregg Potassium [Moles/Vol] 4.5 mmol/L Normal 3.5-5.1 [facility] Comment on above: Performed By: #### I MMUNGL #### [facility] [address] [address] [address] Yayo Gregg Protein [Mass/Vol] 6.3 g/dL Critically low 6.4-8.2 [facility] Comment on above: Performed By: #### I MMUNGL #### [facility] [address] [place] [address] Dr. Yayo Gregg Sodium [Moles/Vol] 130 mmol/L Critically low 136-145 [facility] Comment on above: Performed By: #### I MMUNGL #### [facility] [address] [address] [address] Yayo Gregg Urea nitrogen [Mass/Vol] 12.0 mg/dL Normal 7.0-18.0 [facility] Comment on above: Performed By: #### I MMUNGL #### [facility] [address] [address] [address] Yayo Gregg Urea nitrogen/Creatinine [Mass ratio] 13.2 mg/mg Normal [facility] Comment on above: Performed By: #### I MMUNGL #### [facility] [address] [place] [address] Dr. Yayo Gregg PROTIMEon 01-27-2022 INR Coag (PPP) [Relative time] 0.96 {INR} Normal [facility] Comment on above: Performed By: #### I MMUNGL #### [facility] [address] [place] [address] Dr. Yayo Gregg INR GUIDELINES SEE BELOW Normal [facility] Comment on above: Result Comment: ASHLEY RED INR: 2.0 - 3.0 CONDITIONS NOT LISTED BELOW 2.5 - 3.5 FOR PROSTHETIC HEART VALVE REPLACEMENT 2.5 - 3.5 RECURRENT THROMBOSIS Performed By: #### I MMUNGL #### [facility] [address] [place] [address] Dr. Yayo Gregg PT Coag (PPP) [Time] 10.4 s Normal 9.0-11.6 [facility] Comment on above: Performed By: #### I MMUNGL #### [facility] [address] [place] [address] Dr. Yayo Gregg PTTon 01-27-2022 aPTT Coag (Bld) [Time] 31.6 s Normal 22.3-36.2 [facility] Comment on above: Performed By: #### I MMUNGL #### [facility] [address] [place] [address] Dr. Yayo Gregg TROPONIN, HIGH SENSITIVITYon 01-27-2022 HSTROP 4.7 pg/mL Normal 4.0-51.3 [facility] Comment on above: Result Comment: CUT- OFF POINTS HAVE BEEN ESTABLISHED BASED ON THE FOURTH UNIVERSAL DEFINITIONS OF MYOCARDIAL INFARCTION. THE UPPER REFERENCE LIMIT (URL) OF TROPONIN, DEFINED THE 99TH PERCENTILE OF cTnI DISTRIBUTION IN A REFERENCE POPULATION, HAS BEEN CONFIRMED THE DECISION THRESHOLD FOR [place] DIAGNOSIS. Performed By: #### H STROPN #### [facility] [address] [place] [address] Dr. Yayo Gregg XR CHEST 1 Von [...] by: ANTHONY GUIDRY Date: 2022-01-27 11:47 Normal [facility] XR LSPINE 2_3 VIEWSon 2021 XR [...] by: BENJAMIN GUNN Date: 2021-12-18 14:19 Normal [facility] BASIC METABOLIC PANEL(BMP)on 01-06-2018 Anion gap 12 mmol/L Normal 9-18 [facility] Comment on above: Performed By: #### C VAMSI HSERIFFGR ####MAIN LABCLIA:[id number] [place] [address] BUN (urea nitrogen) 17 mg/dL Normal 8-23 [facility] Comment on above: Performed By: #### VAMSI RUFFGR ####MAIN LABCLIA:[id number] [place] [address] BUN/Creatinine Ratio 22.1 mg/mg Normal [facility] Comment on above: Performed By: #### AMANDA RUFFCGR ####MAIN LABCLIA:[id number] [place] [address] Calcium 7.9 mg/dL Low 8.8-10.2 [facility] Comment on above: Performed By: #### Yaquelin RUFFCBCGR ####MAIN LABCLIA:[id number] [place] [address] Chloride 101 mmol/L Normal 98-107 [facility] Comment on above: Performed By: #### C SHARITA, ZCBCGR ####MAIN LABCLIA:[id number] [place] [address] CO2 24 mmol/L Normal 22-29 [facility] Comment on above: Performed By: #### C SHARITA, ZCBCGR ####MAIN LABCLIA:[id number] [place] [address] Creatinine 0.77 mg/dL Normal 0.50-0.90 [facility] Comment on above: Performed By: #### C SHARITA, ZCBCGR ####MAIN LABCLIA:[id number] [place] [address] eGFR (MDRD) 77 /1.73 m2 Normal >60 mL/min [facility] Comment on above: Result Comment: Norm al RangeStage Description:1 Normal or Increased GFR >=902 Mild Decrease in GFR 60-903 Moderately Decreased GFR 30-594 Severely Decreased GFR 15-295 Kidney Failure <15 Performed By: #### C SHARITA, ZCBCGR ####MAIN LABCLIA:[id number] [place] [address] Glucose mass conc 89 mg/dL Normal 74-109 [facility] Comment on above: Performed By: #### C SHARITA, ZCBCGR ####MAIN LABCLIA:[id number] [place] [address] Potassium molar conc 4.4 mmol/L Normal 3.5-5.1 [facility] Comment on above: Performed By: #### C SHARITA ZCBCGR ####MAIN LABCLIA:[id number] [place] [address] Sodium 133 mmol/L Low 136-145 [facility] Comment on above: Performed By: #### C SHARITA, ZCBCGR ####MAIN LABCLIA:[id number] [place] [address] CBC/DIFF GROUPon 01-06-2018 Anisocytosis presence 1+ Normal [facility] Comment on above: Performed By: #### C SHARITA ZCBCGR ####MAIN LABCLIA:[id number] [facility] [place] [address] HYPOCHROMASIA 1+ Normal [facility] Comment on above: Performed By: #### C SHARITA, ZCBCGR ####MAIN LABCLIA:[id number] [facility] [place] [address] NORMOCHROMIC NO Normal [facility] Comment on above: Performed By: #### C SHARITA ZCBCGR ####MAIN LABCLIA:[id number] [place] [address] NORMOCYTIC NO [facility] Comment on above: Performed By: #### C SHARITA ZCBCGR ####MAIN LABCLIA:[id number] [place] [address] Platelets NORMAL [facility] Comment on above: Performed By: #### C SHARITA ZCBCGR ####MAIN LABCLIA:[id number] [place] [address] BAND NEUTROPHILS #(MANUAL) 152 /cmm Normal <648 [facility] Comment on above: Performed By: #### C SHARITA ZCBCGR ####MAIN LABCLIA:[id number] [place] [address] Eosinophils 456 /cmm High <432 [facility] Comment on above: Performed By: #### Vladimir SHERIFF ZCBCGR ####MAIN LABCLIA:[id number] [place] [address] Eosinophils/100 leukocytes 6 % High <4 [facility] Comment on above: Performed By: #### C SHARITA ZCBCGR ####MAIN LABCLIA:[id number] [place] [address] Lymphocytes 1748 /cmm Normal 960-4752 [facility] Comment on above: Performed By: #### Vladimir SHERIFF ZCBCGR ####MAIN LABCLIA:[id number] [place] [address] Lymphocytes/100 leukocytes 23 % Normal 20-44 [facility] Comment on above: Performed By: #### Vladimir SHERIFF, ZCBCGR ####MAIN LABCLIA:[id number] [facility] [place] [address] METAMYELOCYTES #(MANUAL) 76 /cmm High 0 [facility] Comment on above: Performed By: #### Vladimir SHERIFF, ZCBCGR ####MAIN LABCLIA:[id number] [place] [address] Metamyelocytes/100 leukocytes 1 % High 0 [facility] Comment on above: Performed By: #### Vladimir SHERIFF, ZCBCGR ####MAIN LABCLIA:[id number] [place] [address] Monocytes 1292 /cmm High 96-972 [facility] Comment on above: Performed By: #### Vladimir SHERIFF, ZCBCGR ####MAIN LABCLIA:[id number] [place] [address] Monocytes/100 leukocytes 17 % High 2-9 [facility] Comment on above: Performed By: #### Vladimir SHERIFF, ZCBCGR ####MAIN LABCLIA:[id number] [place] [address] Neutrophils 3876 /cmm Normal 1645-0668 [facility] Comment on above: Performed By: #### Vladimir SHERIFF, ZCBCGR ####MAIN LABCLIA:[id number] [place] [address] Neutrophils band/100 leukocytes 2 % Normal <6 [facility] Comment on above: Performed By: #### C SHARITA, ZCBCGR ####MAIN LABCLIA:[id number] [place] [address] Neutrophils/100 WBC Auto (Bld) 51 % Normal 50-70 [facility] Comment on above: Performed By: #### Vladimir SHERIFF, ZCBCGR ####MAIN LABCLIA:[id number] [place] [address] TOTAL CELLS COUNTED 100 Normal [facility] Comment on above: Performed By: #### C SHARITA, ZCBCGR ####MAIN LABCLIA:[id number] [place] [address] Erythrocyte distribution width Auto Ratio (RBC) 13.0 % Normal 11.5-14.5 [facility] Comment on above: Performed By: #### C SHARITA, ZCBCGR ####MAIN LABCLIA:[id number] [place] [address] Erythrocytes (RBC) 3.49 10 6/cmm Low 4.20-5.40 [facility] Comment on above: Performed By: #### C SHARITA, ZCBCGR ####MAIN LABCLIA:[id number] [place] [address] Hematocrit (HCT) 29.4 % Low 38.0-47.0 [facility] Comment on above: Performed By: #### C SHARITA, ZCBCGR ####MAIN LABCLIA:[id number] [place] [address] Hemoglobin mass conc (Bld) 10.1 g/dL Low 12.0-16.4 [facility] Comment on above: Performed By: #### C SHARITA ZCBCGR ####MAIN LABCLIA:[id number] [place] [address] MCH 34.5 g/dL Normal 32.0-36.0 [facility] Comment on above: Performed By: #### C SHARITA, ZCBCGR ####MAIN LABCLIA:[id number] [place] [address] MCH 29.1 pg Normal 27.0-31.0 [facility] Comment on above: Performed By: #### C SHARITA ZCBCGR ####MAIN LABCLIA:[id number] [place] [address] MCV 84.3 fL Normal 80.0-96.0 [facility] Comment on above: Performed By: #### C SHARITA, ZCBCGR ####MAIN LABCLIA:[id number] [place] [address] Platelets 359 10 3/cmm Normal 130-400 [facility] Comment on above: Performed By: #### C BC, ZCBCGR ####MAIN LABCLIA:[id number] [place] [address] WBC (Leukocytes) 7.6 10 3/cmm Normal 4.8-10.8 [facility] Comment on above: Performed By: #### C BC, ZCBCGR ####MAIN LABCLIA:[id number] [place] [address] FREE T4 (FREE THYROXINE)on 0 01-06-2018 Thyroxine (T4) free 2.46 ng/dL High 0.93-1.7 [facility] Comment on above: Performed By: #### C BC, ZCBCGR ####MAIN LABCLIA:[id number] [place] [address] IM Progress Noteon 8 IM Progress Note [address] [place], [place] [address] TANGELA TRINIDAD 77 [id number] Donnell Barton MD 4W / [id number] Report #: [id number] Hospitalist Progress Note Date/Time: 01/06/18805 Report Status: [...] fine and wants to go back to [place]. Her will be driving. - Reviewed laboratory [...] have her follow-up with her physician in [place]. (2) Hyponatremia Status: Improved Plan: Sodium of 133-asymptomatic urine sodium slightly elevated at 35. (3) Essential hypertension Status: Stable (4) Hypothyroidism Plan: Suppressed TSH, her physician from [place] just called her in down dosed her [...] 01/06/18816 Electronically Cosigned By: Cosigned Date/Time: Normal [facility] T3 FREEon 01-06-2018 Triiodothyronine (T3) free 5.92 pg/mL High 2.0-4.4 [facility] Comment on above: Performed By: #### C MELONY SHERIFF ####MAIN LABCLIA:[id number] [place] [address] CBC/DIFF GROUPon 01-05-2018 NORMOCHROMIC YES Normal [facility] Comment on above: Performed By: #### MELONY RUFF ####MAIN LABCLIA:[id number] [facility] [place] [address] NORMOCYTIC YES Normal [facility] Comment on above: Performed By: #### MELONY RUFF ####MAIN LABCLIA:[id number] [place] [address] Platelets NORMAL Normal [facility] Comment on above: Performed By: #### Vladimir SHERIFF, ZCBCGR ####MAIN LABCLIA:[id number] [place] [address] BAND NEUTROPHILS #(MANUAL) 414 /cmm Normal <648 [facility] Comment on above: Performed By: #### C SHARITA, ZCBCGR ####MAIN LABCLIA:[id number] [place] [address] Eosinophils 552 /cmm High <432 [facility] Comment on above: Performed By: #### C SHARITA, ZCBCGR ####MAIN LABCLIA:[id number] [place] [address] Eosinophils/100 leukocytes 4 % Normal <4 [facility] Comment on above: Performed By: #### C SHARITA, ZCBCGR ####MAIN LABCLIA:[id number] [place] [address] Lymphocytes 690 /cmm Low 960-4752 [facility] Comment on above: Performed By: #### C SHARITA, ZCBCGR ####MAIN LABCLIA:[id number] [place] [address] Lymphocytes/100 leukocytes 5 % Low 20-44 [facility] Comment on above: Performed By: #### C SHARITA, ZCBCGR ####MAIN LABCLIA:[id number] [place] [address] Monocytes 1242 /cmm High 96-972 [facility] Comment on above: Performed By: #### C SHARITA, ZCBCGR ####MAIN LABCLIA:[id number] [place] [address] Monocytes/100 leukocytes 9 % Normal 2-9 [facility] Comment on above: Performed By: #### C SHARITA, ZCBCGR ####MAIN LABCLIA:[id number] [place] [address] Neutrophils 41500 /cmm High 7417-7175 [facility] Comment on above: Performed By: #### C SHARITA, ZCBCGR ####MAIN LABCLIA:[id number] [place] [address] Neutrophils band/100 leukocytes 3 % Normal <6 [facility] Comment on above: Performed By: #### C SHARITA, ZCBCGR ####MAIN LABCLIA:[id number] [facility] [place] [address] Neutrophils/100 WBC Auto (Bld) 79 % High 50-70 [facility] Comment on above: Performed By: #### C SHARITA, ZCBCGR ####MAIN LABCLIA:[id number] [place] [address] TOTAL CELLS COUNTED 100 Normal [facility] Comment on above: Performed By: #### C SHARITA, ZCBCGR ####MAIN LABCLIA:[id number] [facility] [place] [address] Hematocrit (HCT) 36.0 % Low 38.0-47.0 [facility] Comment on above: Performed By: #### C SHARITA ZCBCGR ####MAIN LABCLIA:[id number] [facility] [place] [address] Hemoglobin mass conc (Bld) 12.2 g/dL Normal 12.0-16.4 [facility] Comment on above: Performed By: #### C SHARITA, ZCBCGR ####MAIN LABCLIA:[id number] [place] [address] MCH 28.6 pg Normal 27.0-31.0 [facility] Comment on above: Performed By: #### C SHARITA ZCBCGR ####MAIN LABCLIA:[id number] [facility] [place] [address] MCV 84.1 fL Normal 80.0-96.0 [facility] Comment on above: Performed By: #### C SHARITA, ZCBCGR ####MAIN LABCLIA:[id number] [facility] [place] [address] WBC (Leukocytes) 13.8 10 3/cmm High 4.8-10.8 [facility] Comment on above: Performed By: #### C SHARITA, ZCBCGR ####MAIN LABCLIA:[id number] [place] [address] CHEST 2 VIEWSon 01-05-2018 CHEST [address] [phone]____ Pt Location: 4W/ ADM IN Pt RM#: [id number] MR #: [id number] DATE: 01/05/18 123 ADM#: [id number] #: [id number] JANET TRINIDADOB: 1940 Age/Sex: 77 / F [...] Salvador; Doctor,No; Donnell Barton MD [facility] COMPLETE BLOOD COUNTon 01-05 Erythrocyte distribution width Auto Ratio (RBC) 12.7 % Normal 11.5-14.5 [facility] Comment on above: Performed By: #### C BC, ZCBCGR ####MAIN LABCLIA:[id number] [place] [address] Erythrocytes (RBC) 4.28 10 6/cmm Normal 4.20-5.40 [facility] Comment on above: Performed By: #### C BC, ZCBCGR ####MAIN LABCLIA:[id number] [place] [address] MCH 34.0 g/dL Normal 32.0-36.0 [facility] Comment on above: Performed By: #### C BC, YaquelinCBCGR ####MAIN LABCLIA:[id number] [place] [address] Platelets 423 10 3/cmm High 130-400 [facility] Comment on above: Performed By: #### C BCAMANDACGR ####MAIN LABCLIA:[id number] [place] [address] COMPREHENSIVE METABOLIC PANE [facility] 01-05-2018 Alanine aminotransferase (ALT) 15 U/L Normal 0-33 [facility] Comment on above: Performed By: #### C MP, MG ####MAIN LABCLIA:[id number] [place] [address] Albumin 3.3 g/dL Normal 3.0-4.5 [facility] Comment on above: Performed By: #### C MP, MG ####MAIN LABCLIA:[id number] [place] [address] Albumin/Globulin Ratio 1.2 {ratio} Normal 1-1.4 [facility] Comment on above: Performed By: #### C MP, MG ####MAIN LABCLIA:[id number] [place] [address] Alkaline phosphatase (ALP) 76 U/L Normal 35-104 [facility] Comment on above: Performed By: #### C MP, MG ####MAIN LABCLIA:[id number] [facility] [place] [address] Anion gap 15 mmol/L Normal 9-18 [facility] Comment on above: Performed By: #### C MP, MG ####MAIN LABCLIA:[id number] [facility] [place] [address] Aspartate aminotransferase (AST) 16 U/L Normal 0-32 [facility] Comment on above: Performed By: #### C MP, MG ####MAIN LABCLIA:[id number] [place] [address] Bilirubin (total) 0.4 mg/dL Normal 0.2-1.2 [facility] Comment on above: Performed By: #### C MP, MG ####MAIN LABCLIA:[id number] [place] [address] BUN (urea nitrogen) 26 mg/dL High 8-23 [facility] Comment on above: Performed By: #### C MP, MG ####MAIN LABCLIA:[id number] [place] [address] BUN/Creatinine Ratio 22.2 mg/mg Normal [facility] Comment on above: Performed By: #### C MP, MG ####MAIN LABCLIA:[id number] [place] [address] Calcium 8.5 mg/dL Low 8.8-10.2 [facility] Comment on above: Performed By: #### C MP, MG ####MAIN LABCLIA:[id number] [place] [address] Chloride 90 mmol/L Low 98-107 [facility] Comment on above: Performed By: #### C MP, MG ####MAIN LABCLIA:[id number] [place] [address] CO2 26 mmol/L Normal 22-29 [facility] Comment on above: Performed By: #### C MP, MG ####MAIN LABCLIA:[id number] [place] [address] Creatinine 1.17 mg/dL High 0.50-0.90 [facility] Comment on above: Performed By: #### C MP, MG ####MAIN LABCLIA:[id number] [place] [address] eGFR (MDRD) 47 /1.73 m2 Low >60 mL/min [facility] Comment on above: Result Comment: Norm al RangeStage Description:1 Normal or Increased GFR >=902 Mild Decrease in GFR 60-903 Moderately Decreased GFR 30-594 Severely Decreased GFR 15-295 Kidney Failure <15 Performed By: #### C MP, MG ####MAIN LABCLIA:[id number] [place] [address] Globulin 2.7 g/dL Normal 2.3-3.5 [facility] Comment on above: Performed By: #### C MP, MG ####MAIN LABCLIA:[id number] [place] [address] Glucose mass conc 136 mg/dL High 74-109 [facility] Comment on above: Performed By: #### C MP, MG ####MAIN LABCLIA:[id number] [place] [address] Potassium molar conc 4.5 mmol/L Normal 3.5-5.1 [facility] Comment on above: Performed By: #### C MP, MG ####MAIN LABCLIA:[id number] [place] [address] Protein 6.0 g/dL Low 6.4-8.3 [facility] Comment on above: Performed By: #### C MP, MG ####MAIN LABCLIA:[id number] [place] [address] Sodium 126 mmol/L Low 136-145 [facility] Comment on above: Performed By: #### C MP, MG ####MAIN LABCLIA:[id number] [place] [address] CT HEAD WO 01-05-2018 CT HEAD WO [address] [phone]____ Pt Location: 4W/ ADM IN Pt RM#: [id number] MR #: [id number] DATE: 01/05/18 1236 ADM#: [id number] #: [id number] JANET TRINIDADOB: 1940 Age/Sex: 77 / F [...] matter.REPORT# [id number] READ BY: Cielo Pacheco M.D. [id number] REPORT RELEASED BY: Cielo Pacheco M.D. 01/05/18 1502Transcribed Date/Time: 01/05/18 1339 PLPCC: ROSY Salvador; Doctor,No; Donnell Barton MD [facility] Emergency Room Visit Reporto n 01-05-2018 Emergency Room Visit Report [address] [place], [place] [address] TANGELA TRINIDAD 1940 (77 F) [id number] Helio Hoang 4W Report #: [id number] PCP: No Doctor Emergency Room Visit Report [...] reports feeling dizziness and near syncope at [facility]. Pt reports recent bronchitis that she was [...] Allergy Mild Rash Verified 01/05/18 12:40 Antibiotics) Veeoxgm-Wju-Ywp Reductase Allergy Unknown Verified 01/05/18 12:40 Inhibitor [...] PO BID 01/05/18 01/05/18 raNITIdine HCl [Acid Assembly Line Machine Operator] 150 mg PO BID 01/05/18 01/05/18 ROS [...] % (Manual) (<4) % Neutrophils # (Manual) ([id number]) /cmm Band Neutrophils # (<648) /cmm Lymphocytes [...] Appearance Clear Urine pH 7.0 Ur Specific Kinde <=1.005 Urine Protein Negative (NEGATIVE) Urine Glucose [...] (Manual) 4 (<4) % Neutrophils # (Manual) 19588 H (6726-9802) /cmm Band Neutrophils # 414 (<648) /cmm [...] Color Urine Appearance Urine pH Ur Specific Kinde Urine Protein (NEGATIVE) Urine Glucose (UA) (NEGATIVE) [...] an inhaler. This was obtained by the [facility] in [facility]. 01/05/18 14:40 I discussed this patient with [...] MD Cosigned Date/Time: 01/05/18 190 [facility] History & Physicalon 018 History & Physical [address] [place] [address] TANGELA TRINIDAD [id number] Donnell Barton MD 4W / [id number] 1940 Report #: [id number] Admission Date: 01/05/18 History Physical Date/Time: 01/05/18 [...] episode. Patient is visiting this area from [place] [...] asymptomatic. Evaluation emergency room consisted of a nut sheller which shows normal sinus rhythm, EKG shows [...] Allergy Mild Rash Verified 01/05/18 12:40 Antibiotics) Raouuzx-Fwj-Onl Reductase Allergy Unknown Verified 01/05/18 12:40 Inhibitor [...] PO BID 01/05/18 01/05/18 raNITIdine HCl [Acid Assembly Line Machine Operator] 150 mg PO BID 01/05/18 01/05/18 Allergies [...] admit as observation Electronically Signed By: Donnell Bartno MD Signed Date/Time: 01/05/18 1541 Electronically Cosigned By: Cosigned Date/Time: Normal [facility] MAGNESIUMon 01-05-2018 Magnesium 2.1 mg/dL Normal 1.6-2.6 [facility] Comment on above: Performed By: #### C MP, MG ####MAIN LABCLIA:[id number] [place] [address] SODIUM,URINE RANDOMon 2017 SODIUM,URINE RANDOM 35 mmol/L Normal [facility] Comment on above: Order Comment: COLLE CTED BY: Sherine Tenorio Result Comment: The reference range has not been established for this test. Performed By: #### C BC, ZCBCGR ####MAIN LABCLIA:[id number] [place] [address] THYROID STIMULATING HORMONEo n 01-05-2018 Thyroid stimulating hormone (TSH) 0.16 uIU/mL Low 0.27-4.20 [facility] Comment on above: Performed By: #### C BC, ZCBCGR ####MAIN LABCLIA:[id number] [place] [address] TROPONIN Ton 01-05-2018 Troponin T.cardiac mass conc ug/L Normal <0.010 [facility] Comment on above: Result Comment: Valu [...] Performed By: #### C BC, ZCBCGR ####MAIN LABCLIA:[id number] [place] [address] Troponin T.cardiac mass conc ug/L Normal <0.010 [facility] Comment on above: Result Comment: Valu [...] hours. Performed By: #### T ROPT ####MAIN LABCLIA:[id number] [facility] [place] [address] URINALYSISon 01-05-2018 UA APPEARANCE CLEAR Normal [facility] Comment on above: Order Comment: COLLE CTED BY: davedVOID-MIDSTREAM Performed By: #### U A ####MAIN LABCLIA:[id number] [facility] [place] [address] UA BACTERIA NONE Normal NONE [facility] Comment on above: Order Comment: COLLE CTED BY: davedVOID-MIDSTREAM Performed By: #### U A ####MAIN LABCLIA:[id number] [place] [address] UA SQUAMOUS EPITHELIAL 0-2 Normal [facility] Comment on above: Order Comment: COLLE CTED BY: Tye acostaOID-MIDSTREAM Performed By: #### U A ####MAIN LABCLIA:[id number] [facility] [place] [address] UA WBC 0-2 Normal 0-2 [facility] Comment on above: Order Comment: COLLE CTED BY: Tye acostaOID-MIDSTREAM Performed By: #### U A ####MAIN LABCLIA:[id number] [place] [address] Urine, color YELLOW Normal [facility] Comment on above: Order Comment: COLLE CTED BY: Tye acostaOID-MIDSTREAM Performed By: #### U A ####MAIN LABCLIA:[id number] [facility] [place] [address] Urine, erythrocytes 0-2 Normal 0-2 [facility] Comment on above: Order Comment: COLLE CTED BY: Tye acostaOID-MIDSTREAM Performed By: #### U A ####MAIN LABCLIA:[id number] [place] [address] UA BILIRUBIN Negative Normal NEGATIVE [facility] Comment on above: Order Comment: COLLE CTED BY: Tye acostaOID-MIDSTREAM Performed By: #### U A ####MAIN LABCLIA:[id number] [place] [address] UA BLOOD Negative Normal NEGATIVE [facility] Comment on above: Order Comment: COLLE CTED BY: Tye acostaOID-MIDSTREAM Performed By: #### U A ####MAIN LABCLIA:[id number] [place] [address] UA LEUKOCYTE ESTERASE TRACE Normal NEGATIVE [facility] Comment on above: Order Comment: COLLE CTED BY: Tye acostaOID-MIDSTREAM Performed By: #### U A ####MAIN LABCLIA:[id number] [place] [address] UA NITRITES Negative Normal NEGATIVE [facility] Comment on above: Order Comment: COLLE CTED BY: Tye acostaOID-MIDSTREAM Performed By: #### U A ####MAIN LABCLIA:[id number] [place] [address] UA PH 7.0 [facility] Comment on above: Order Comment: COLLE CTED BY: Tye acostaOID-MIDSTREAM Performed By: #### U A ####MAIN LABCLIA:[id number] [place] [address] UA PROTEIN Negative Normal NEGATIVE [facility] Comment on above: Order Comment: COLLE CTED BY: Tye acostaOID-MIDSTREAM Performed By: #### U A ####MAIN LABCLIA:[id number] [place] [address] UA SPECIFIC GRAVITY <=1.005 [facility] Comment on above: Order Comment: COLLE CTED BY: Tye acostaOID-MIDSTREAM Performed By: #### U A ####MAIN LABCLIA:[id number] [place] [address] UA UROBILINOGEN 0.2 mg/dL Normal 0.0-1.0 [facility] Comment on above: Order Comment: COLLE CTED BY: davedVOID-MIDSTREAM Performed By: #### U A ####MAIN LABCLIA:[id number] [place] [address] Urine, glucose Negative Normal NEGATIVE [facility] Comment on above: Order Comment: COLLE CTED BY: davedVOID-MIDSTREAM Performed By: #### U A ####MAIN LABCLIA:[id number] [place] [address] Urine, ketones presence Negative Normal NEGATIVE [facility] Comment on above: Order Comment: COLLE CTED BY: davedVOID-MIDSTREAM Performed By: #### U A ####MAIN LABCLIA:[id number] [place] [address] URINE SOURCE VOID-MIDSTREAM Normal [facility] Comment on above: Order Comment: COLLE CTED BY: davedVOID-MIDSTREAM Performed By: #### U A ####MAIN LABCLIA:[id number] [place] [address] VASCULAR RISK PANELon 2017 Cholesterol 180 mg/dL Normal 0-199 [facility] Comment on above: Order Comment: Comme nts: Use blood from ED if available Performed By: #### C BC ZCBCGR ####MAIN LABCLIA:[id number] [place] [address] HDL Cholesterol 42 mg/dL Low >65 [facility] Comment on above: Order Comment: Comme nts: Use blood from ED if available Performed By: #### C BC, ZCBCGR ####MAIN LABCLIA:[id number] [place] [address] LDL Cholesterol 98 mg/dL Normal <129 [facility] Comment on above: Order Comment: Comme nts: Use blood from ED if available Performed By: #### C BC, ZCBCGR ####MAIN LABCLIA:[id number] [place] [address] Triglyceride 202 mg/dL High 0-199 [facility] Comment on above: Order Comment: Comme nts: Use blood from ED if available Performed By: #### C BC, ZCBCGR ####MAIN LABCLIA:[id number] [place] [address] VLDL CHOLESTEROL 40 mg/dL Normal 5-40 [facility] Comment on above: Order Comment: Comme nts: Use blood from ED if available Performed By: #### C BC, ZCBCGR ####MAIN LABCLIA:[id number] [place] [address] Vital Signs Date Time Vital Sign Value Performing Clinician Facility 01-02-2024 11:39-0400 Body height 152.4 cm DO Kvng Ball Work Phone: [facility] 01-02-2024 11:39-0400 Body mass index (BMI) [Ratio] 26.6 kg/m2 DO Kvng Ball Work Phone: [facility] 01-02-2024 11:39-0400 Body weight 61.91 kg DO Kvng Ball Work Phone: [facility] 01-02-2024 11:39-0400 Diastolic blood pressure 85 mm[Hg] DO Kvng Ball Work Phone: [facility] 01-02-2024 11:39-0400 Heart rate 66 /min DO Kvng Ball Work Phone: [facility] 01-02-2024 11:39-0400 Respiratory rate 12 /min DO Kvng Ball Work Phone: [facility] 01-02-2024 11:39-0400 Systolic blood pressure 124 mm[Hg] DO Kvng Ball Work Phone: [facility] 05-27-2023 11:00-0500 Body height 152.4 cm Kvng Ball Other [facility] Other 05-27-2023 11:00-0500 Diastolic blood pressure 84 mm[Hg] Kvng Ball Other [facility] Other 05-27-2023 11:00-0500 Systolic blood pressure 124 mm[Hg] Kvng Ball Other [facility] Other 03-04-2023 13:45-0400 Body height 152.4 cm Kvng Ball Other [facility] Other 03-04-2023 13:45-0400 Body mass index (BMI) [Ratio] 28.47 kg/m2 Kvng Ball Other [facility] Other 03-04-2023 13:45-0400 Body weight 66.13 kg Kvng Ball Other [facility] Other 03-04-2023 13:45-0400 Diastolic blood pressure 80 mm[Hg] Kvng Ball Other [facility] Other 03-04-2023 13:45-0400 Respiratory rate 12 /min Kvng Ball Other [facility] Other 03-04-2023 13:45-0400 Systolic blood pressure 117 mm[Hg] Kvng Ball Other [facility] Other 02-22-2023 11:00-0400 Body height 152.4 cm Kvng Ball Other [facility] Other 02-22-2023 11:00-0400 Body mass index (BMI) [Ratio] 28.39 kg/m2 Kvng Ball Other [facility] Other 02-22-2023 11:00-0400 Body weight 65.95 kg Kvng Ball Other [facility] Other 02-22-2023 11:00-0400 Diastolic blood pressure 83 mm[Hg] Kvng Ball Other [facility] Other 02-22-2023 11:00-0400 Respiratory rate 12 /min Kvng Ball Other [facility] Other 02-22-2023 11:00-0400 Systolic blood pressure 132 mm[Hg] Kvng Ball Other [facility] Other 01-24-2023 09:18-0400 Diastolic blood pressure 72 mm[Hg] DO Kvng Ball Work Phone: [facility] 01-24-2023 09:18-0400 Heart rate 56 /min DO Kvng Ball Work Phone: [facility] 01-24-2023 09:18-0400 Respiratory rate 14 /min DO Kvng Ball Work Phone: [facility] 01-24-2023 09:18-0400 SaO2% (BldA) [Mass fraction] 98 % DO Kvng Ball Work Phone: [facility] 01-24-2023 09:18-0400 Systolic blood pressure 126 mm[Hg] DO Kvng Ball Work Phone: [facility] 01-24-2023 07:44-0400 Body height 154.94 cm DO Kvng Ball Work Phone: [facility] 01-24-2023 07:44-0400 Body temperature 97.8 [degF] DO Kvng Ball Work Phone: [facility] 01-24-2023 07:44-0400 Body weight 65.31 kg DO Kvng Ball Work Phone: [facility] 11-18-2022 12:00-0400 Body height 152.4 cm Kvng Ball Other [facility] Other 11-18-2022 12:00-0400 Body mass index (BMI) [Ratio] 28.74 kg/m2 Kvng Ball Other [facility] Other 11-18-2022 12:00-0400 Body weight 66.77 kg Kvng Ball Other [facility] Other 11-18-2022 12:00-0400 Diastolic blood pressure 82 mm[Hg] Kvng Ball Other [facility] Other 11-18-2022 12:00-0400 Respiratory rate 12 /min Kvng Ball Other [facility] Other 11-18-2022 12:00-0400 Systolic blood pressure 125 mm[Hg] Kvng Ball Other [facility] Other 10-28-2022 14:05-0400 Diastolic blood pressure 73 mm[Hg] DO Kvng Ball Work Phone: [facility] 10-28-2022 14:05-0400 Heart rate 60 /min DO Kvng Ball Work Phone: [facility] 10-28-2022 14:05-0400 Respiratory rate 18 /min DO Kvng Ball Work Phone: [facility] 10-28-2022 14:05-0400 SaO2% (BldA) [Mass fraction] 96 % DO Kvng Ball Work Phone: [facility] 10-28-2022 14:05-0400 Systolic blood pressure 117 mm[Hg] DO Kvng Ball Work Phone: [facility] 10-28-2022 11:42-0400 Body height 154.94 cm DO Kvng Ball Work Phone: [facility] 10-28-2022 11:42-0400 Body temperature 97.9 [degF] DO Kvng Ball Work Phone: [facility] 10-28-2022 11:42-0400 Body weight 65.77 kg DO Kvng Ball Work Phone: [facility] 10-12-2022 15:00-0400 Body height 152.4 cm Kvng Ball Other [facility] Other 10-12-2022 15:00-0400 Body mass index (BMI) [Ratio] 28.78 kg/m2 Kvng Ball Other [facility] Other 10-12-2022 15:00-0400 Body weight 66.86 kg Kvng Ball Other [facility] Other 10-12-2022 15:00-0400 Diastolic blood pressure 80 mm[Hg] Kvng Ball Other [facility] Other 10-12-2022 15:00-0400 Respiratory rate 12 /min Kvng Ball Other [facility] Other 10-12-2022 15:00-0400 Systolic blood pressure 116 mm[Hg] Kvng Ball Other [facility] Other 07-27-2022 14:38-0500 Body height 152.4 cm Mavis Santiago MD Work Phone: [facility] 07-27-2022 14:38-0500 Body temperature 98.1 [degF] Mavis Santiago MD Work Phone: [facility] 07-27-2022 14:38-0500 Body weight 66.5 kg Mavis Santiago MD Work Phone: [facility] 07-27-2022 14:38-0500 Diastolic blood pressure 72 mm[Hg] Mavis Santiago MD Work Phone: [facility] 07-27-2022 14:38-0500 Heart rate 64 /min Mavis Santiago MD Work Phone: [facility] 07-27-2022 14:38-0500 Respiratory rate 16 /min Mavis Santiago MD Work Phone: [facility] 07-27-2022 14:38-0500 SaO2% (BldA) [Mass fraction] 97 % Mavis Santiago MD Work Phone: [facility] 07-27-2022 14:38-0500 Systolic blood pressure 125 mm[Hg] Mavis Santiago MD Work Phone: [facility] 07-26-2022 09:19-0500 Diastolic blood pressure 69 mm[Hg] DO Kvng Ball Work Phone: [facility] 07-26-2022 09:19-0500 Heart rate 59 /min DO Kvng Ball Work Phone: [facility] 07-26-2022 09:19-0500 Respiratory rate 16 /min DO Kvng Ball Work Phone: [facility] 07-26-2022 09:19-0500 SaO2% (BldA) [Mass fraction] 98 % DO Kvng Ball Work Phone: [facility] 07-26-2022 09:19-0500 Systolic blood pressure 111 mm[Hg] DO Kvng Ball Work Phone: [facility] 07-26-2022 07:19-0500 Body height 154.94 cm DO Kvng Ball Work Phone: [facility] 07-26-2022 07:19-0500 Body temperature 97.7 [degF] DO Kvng Ball Work Phone: [facility] 07-26-2022 07:19-0500 Body weight 66.22 kg DO Kvng Ball Work Phone: [facility] 07-21-2022 14:30-0500 Body height 152.4 cm Kvng Ball Other [facility] Other 07-21-2022 14:30-0500 Body mass index (BMI) [Ratio] 28.82 kg/m2 Kvng Ball Other [facility] Other 07-21-2022 14:30-0500 Body weight 66.95 kg Kvng Ball Other [facility] Other 07-21-2022 14:30-0500 Diastolic blood pressure 70 mm[Hg] Kvng Ball Other [facility] Other 07-21-2022 14:30-0500 Respiratory rate 12 /min Kvng Ball Other [facility] Other 07-21-2022 14:30-0500 Systolic blood pressure 118 mm[Hg] Kvng Ball Other [facility] Other 05-25-2022 13:02-0500 Body temperature 96.91 [degF] Chair Ryan Work Phone: [facility] 05-25-2022 13:02-0500 Diastolic blood pressure 88 mm[Hg] Chair [place] Work Phone: [facility] 05-25-2022 13:02-0500 Heart rate 68 /min Chair Ryan Work Phone: [facility] 05-25-2022 13:02-0500 Respiratory rate 18 /min Chair [place] Work Phone: [facility] 05-25-2022 13:02-0500 SaO2% (BldA) [Mass fraction] 100 % Chair [place] Work Phone: [facility] 05-25-2022 13:02-0500 Systolic blood pressure 146 mm[Hg] Chair Ryan Work Phone: [facility] 05-18-2022 15:42-0500 Body temperature 98.1 [degF] Mavis Santiago MD Work Phone: [facility] 05-18-2022 15:42-0500 Body weight 68.04 kg Mavis Santiago MD Work Phone: [facility] 05-18-2022 15:42-0500 Diastolic blood pressure 78 mm[Hg] Mavis Santiago MD Work Phone: [facility] 05-18-2022 15:42-0500 Heart rate 78 /min Mavis Santiago MD Work Phone: [facility] 05-18-2022 15:42-0500 Respiratory rate 16 /min Mavis Santiago MD Work Phone: [facility] 05-18-2022 15:42-0500 SaO2% (BldA) [Mass fraction] 98 % Mavis Santiago MD Work Phone: [facility] 05-18-2022 15:42-0500 Systolic blood pressure 122 mm[Hg] Mavis Santiago MD Work Phone: [facility] Encounters Encounter Date Encounter Type Care Provider Facility Start: 04-09-2024 End: 04-09-2024 ambulatory Charlotte Levi MD Facility: [facility] Start: 04-02-2024 End: 04-02-2024 ambulatory Charlotte Levi MD Facility: [facility] Start: 03-29-2024 End: 03-29-2024 ambulatory LORELEI HURTADO Not Available Start: 03-20-2024 End: 03-20-2024 ambulatory NICHO MARC Not Available Start: 03-16-2024 End: 03-16-2024 Patient encounter procedure DO Kvng Melgar Work Phone: [facility] [place] Work Phone: Start: 03-16-2024 End: 03-16-2024 ambulatory DO Kvng Melgar Work Phone: [facility] Work Phone: Start: 03-01-2024 End: 03-01-2024 ambulatory LORELEI HURTADO Not Available Start: 01-31-2024 End: 01-31-2024 ambulatory LORELEI HURTADO Not Available Start: 01-25-2024 End: 01-25-2024 ambulatory TED GILMORE Not Available Start: 01-02-2024 End: 01-02-2024 Patient encounter procedure DO Kvng Melgar Work Phone: [facility] Work Phone: Start: 09-15-2023 End: 09-15-2023 ambulatory Imad Asaad Other [facility] Other Start: 09-15-2023 Telephone encounter Imad Asaad [facility] Start: 08-10-2023 End: 08-10-2023 ambulatory Imad Asaad Other [facility] Other Start: 08-10-2023 Office outpatient vi sit 25 minutes Imad Asaad [facility] Start: 08-01-2023 End: 08-01-2023 ambulatory Kvng Melgar Other [facility] Other Start: 08-01-2023 Telephone encounter Kvng RODRIGES [facility] Start: 07-25-2023 End: 07-25-2023 Patient encounter procedure DO Kvng Melgar Work Phone: [facility] Work Phone: Start: 07-25-2023 End: 07-25-2023 ambulatory DO Kvng Melgar Work Phone: [facility] Work Phone: Start: 07-06-2023 End: 07-06-2023 ambulatory Imad Asaad Other [facility] Other Start: 07-06-2023 Telephone encounter Imad Asaad [facility] Start: 06-20-2023 End: 06-20-2023 ambulatory Kvng Melgar Other [facility] Other Start: 06-20-2023 Telephone encounter Kvng [facility] Start: 06-15-2023 End: 06-15-2023 ambulatory Kvng Melgar Other [facility] Other Start: 06-15-2023 Telephone encounter Kvng Melgar [facility] Start: 06-08-2023 End: 06-08-2023 ambulatory Kvng Ball Other [facility] Other Start: 06-08-2023 Telephone encounter Kvng Ball [facility] Start: 05-31-2023 End: 05-31-2023 ambulatory Kvng Ball Other [facility] Other Start: 05-31-2023 Telephone encounter Kvng Melgar [facility] Start: 05-29-2023 End: 05-29-2023 ambulatory Kvng Melgar Other [facility] Other Start: 05-29-2023 Telephone encounter Kvng Ball [facility] Start: 05-28-2023 End: 05-28-2023 ambulatory Kvng Ball Other [facility] Other Start: 05-28-2023 Telephone encounter Kvng Melgar [facility] Start: 05-27-2023 End: 05-27-2023 ambulatory Kvng Ball Other [facility] Other Start: 05-27-2023 Office outpatient vi sit 25 minutes Kvng Ball [facility] Start: 05-25-2023 End: 05-25-2023 ambulatory Kvng Ball Other [facility] Other Start: 05-25-2023 Telephone encounter Kvng Ball [facility] Start: 05-20-2023 End: 05-20-2023 ambulatory Kvng Ball Other [facility] Other Start: 05-20-2023 Telephone encounter Kvng Ball [facility] Start: 05-10-2023 End: 05-10-2023 ambulatory Imad Asaad Other [facility] Other Start: 05-10-2023 Telephone encounter Imad Asaad [facility] Start: 04-26-2023 End: 04-26-2023 ambulatory Kvng Ball Other [facility] Other Start: 04-26-2023 Nursing evaluation o f patient and report Kvng Melgar [facility] Start: 03-23-2023 End: 03-23-2023 ambulatory Imad Asaad Other [facility] Other Start: 03-23-2023 Telephone encounter Imad Asaad [facility] Start: 03-10-2023 End: 03-10-2023 ambulatory Kvng Melgar Other [facility] Other Start: 03-10-2023 Telephone encounter Kvng Melgar [facility] Start: 03-07-2023 End: 03-07-2023 ambulatory Kvng Ermelinda Other [facility] Other Start: 03-07-2023 Telephone encounter Kvng Melgar [facility] Start: 03-04-2023 End: 03-04-2023 ambulatory Kvng Ermelinda Other [facility] Other Start: 03-04-2023 Office outpatient vi sit 15 minutes Kvng Ball [facility] Start: 02-28-2023 End: 02-28-2023 ambulatory Kvng Ball Other [facility] Other Start: 02-28-2023 Telephone encounter Kvng Ball [facility] Start: 02-22-2023 End: 02-22-2023 ambulatory Kvng Ball Other [facility] Other Start: 02-22-2023 Office outpatient vi sit 25 minutes Kvng Ball [facility] Start: 02-21-2023 End: 02-21-2023 ambulatory Kvng Ball Other [facility] Other Start: 02-21-2023 Telephone encounter [facility] Start: 01-24-2023 End: 01-24-2023 ambulatory Sadiq Beckham Other [facility] Other Start: 01-24-2023 Telephone encounter Sadiq Pollard [facility] Start: 01-24-2023 End: 01-24-2023 Admission to same day surgery center DO Kvng Melgar Work Phone: [facility] Work Phone: Start: 12-28-2022 End: 12-28-2022 ambulatory Kvng Melgar Other [facility] Other Start: 12-28-2022 Telephone encounter [facility] Start: 11-19-2022 End: 11-19-2022 ambulatory Kvng Melgar Other [facility] Other Start: 11-19-2022 Telephone encounter [facility] Start: 11-18-2022 End: 11-18-2022 ambulatory Kvng Melgar Other [facility] Other Start: 11-18-2022 Patient encounter procedure Kvng Melgar [facility] Start: 11-01-2022 End: 11-01-2022 ambulatory Imad Asaad Other [facility] Other Start: 11-01-2022 Telephone encounter Imad Asaad [facility] Start: 10-28-2022 Telephone encounter Sadiq Pollard [facility] Start: 10-28-2022 End: 10-28-2022 Admission to same day surgery center DO Kvng Ball Work Phone: [facility] Work Phone: Start: 10-28-2022 End: 10-28-2022 ambulatory DO Kvng Melgar Work Phone: [facility] Work Phone: Start: 10-21-2022 End: 10-21-2022 ambulatory Kvng Melgar Other [facility] Other Start: 10-21-2022 Telephone encounter Kvng Armstrong [facility] Start: 10-20-2022 End: 10-21-[address] KVNG MELGAR Facility:[facility] Start: 10-12-2022 End: 10-12-2022 ambulatory Kvng Melgar Other [facility] Other Start: 10-12-2022 Office outpatient vi sit 15 minutes Kvng Melgar [facility] Start: 10-12-2022 Telephone encounter Kvng Armstrong [employer] Start: 09-27-2022 End: 10-13-[address] KVNG MELGAR Facility: Start: 07-29-2022 End: 07-29-2022 ambulatory Kvng Melgar Other [facility] Other Start: 07-29-2022 Telephone encounter Kvng Armstrong [facility] Start: 07-27-2022 End: 07-27-2022 ambulatory KVNG MELGAR Facility:[facility] Start: 07-27-2022 End: 07-27-2022 Office outpatient visit 15 minutes Mavis Santiago MD Work Phone: Hematology/Oncology Comment on above: Iron deficiency (Danielle bethany Dx) Start: 07-26-2022 Telephone encounter Jeyson Diaz [facility] Start: 07-26-2022 End: 07-26-2022 Admission to same day surgery center DO Kvng Melgar Work Phone: [facility] Work Phone: Start: 07-26-2022 End: 07-26-2022 ambulatory DO Kvng Melgar Work Phone: [facility] Work Phone: Start: 07-22-2022 End: 07-22-2022 Patient encounter procedure DO Kvng Melgar Work Phone: [facility] Work Phone: Start: 07-21-2022 End: 07-21-2022 ambulatory Kvng Melgar Other [facility] Other Start: 07-21-2022 Office outpatient vi sit 25 minutes [facility] Start: 06-02-2022 Social Work Marcia Ramires FIRE ASSISTANT Hematolo gy/Oncology Start: 05-25-2022 Telephone encounter Financial [...] Dx) Start: 05-18-2022 Telephone encounter Adebayo Armstrong [employer] [facility] Start: 05-17-2022 Chart abstracting Mavis abraham MD [...] 06-09-2021 Adult health examination Kvng Melgar Other [facility] Other Start: 08-02-2019 Preoperative cardiovascular examination Kvng Melgar Other [facility] Other Start: 05-31-2019 Gynecological examination normal Kvng Melgar Other [facility] Other Start: 01-05-2018 End: 01-06-2018 Evaluation and management of inpatient No Doctor Facility:[facility] Procedures Date Procedure Procedure Detail Performing [...] Expected: 01/24/2023 (Approximate), Expires: 03/26/2023 [facility] Work Phone: Comment on above: Expected: 01/24/2023 (Approximate), Expires: 03/26/2023 Start: 01-24-2023 End: 07-27-2023 Ferritin [Mass/volume] in Serum or Plasma FERRITIN BLD Lab Routine Iron deficiency Expected: 01/24/2023 (Approximate), Expires: 07/27/2023 [facility] Work Phone: Comment on above: Expected: 01/24/2023 (Approximate), Expires: 07/27/2023 Start: 01-24-2023 End: 07-27-2023 Iron and Iron binding capacity panel - Serum or Plasma IRON + TIBC Lab Routine Iron deficiency Expected: 01/24/2023 (Approximate), Expires: 07/27/2023 [facility] Work Phone: Comment on above: Expected: 01/24/2023 (Approximate), Expires: 07/27/2023 Start: 01-24-2023 [facility] Start: 10-28-2022 [facility] Start: 07-27-2022 End: 09-26-2022 CBC W Auto Differential panel - Blood CBC + DIFF Lab Routine Iron deficiency Expected: 07/27/2022 (Approximate), Expires: 09/26/2022 [facility] Work Phone: Comment on above: Expected: 07/27/2022 (Approximate), Expires: 09/26/2022 Start: 07-27-2022 End: 05-18-2023 Ferritin [Mass/volume] in Serum or Plasma FERRITIN BLD Lab Routine Iron deficiency Expected: 07/27/2022 (Approximate), Expires: 05/18/2023 [facility] Work Phone: Comment on above: Expected: 07/27/2022 (Approximate), Expires: 05/18/2023 Start: 07-27-2022 End: 05-18-2023 Iron and Iron binding capacity panel - Serum or Plasma IRON + TIBC Lab Routine Iron deficiency Expected: 07/27/2022 (Approximate), Expires: 05/18/2023 [facility] Work Phone: Comment on above: Expected: 07/27/2022 (Approximate), Expires: 05/18/2023 Start: 07-27-2022 End: 09-26-2022 RETIC COUNT RETIC COUNT Lab Routine Iron deficiency Expected: 07/27/2022 (Approximate), Expires: 09/26/2022 [facility] Work Phone: Comment on above: Expected: 07/27/2022 (Approximate), Expires: 09/26/2022 Start: 07-26-2022 [facility] Start: 07-11-2022 ADVANCE DIRECTIVE DISCUSSION ADVANCE DIRECTIVE DISCUSSION [facility] Start: 07-11-2022 DEPRESSION ASSESSMENT DEPRESSION ASS [facility] Start: 03-11-2022 Influenza vaccination INFLUENZA (#1) [facility] Start: 01-30-2022 COVID-19 VACCINE (5 - Booster for Pfizer series) COVID-19 VACCINE (5 - Booster for Pfizer series) [facility] Start: 07-11-2021 ADVANCE DIRECTIVE DISCUSSION ADVANCE DIRECTIVE DISCUSSION [facility] Start: 07-11-2021 [facility]ION [facility] Start: 03-29-2019 PNEUMOCOCCAL: 65+ (2 - PCV) PNEUMOCOCCAL: 65+ (2 - PCV) [facility] Start: 11-15-2017 DIABETES SCREEN DIABETES SCREEN [facility] Start: 04-23-2016 PNEUMOCOCCAL: 65+ (2 - PCV) PNEUMOCOCCAL: 65+ (2 - PCV) [facility] Start: 2003 BONE DENSITY BONE DENSITY [facility] Start: 01-22-1988 SHINGRIX VACCINE (1 of 2) SHINGRIX VACCINE (1 of 2) [facility] Start: 1957 Urine microalbumin profile DTAP,TDAP,TD (1 - Tdap) [facility] Start: 1940 COVID-19 VACCINE (#1) COVID-19 VACCI NE (#1) [facility] Patient Education [facility] Work Phone: XR Knee - right 4 Views [facility] Immunizations Immunization Date Immunization Notes Care Provider Saurabh rico 04-26-2023 influenza, high dose seasonal, preservative-free Kvng Melgar Other [facility] Other 04-26-2023 influenza virus vaccine, unspecified formulation DO Kvng Melgar Work Phone: [facility] 10-19-2022 COVID-19 Pfizer (bivalent) Kvng Melgar Other [facility] 12-05-2021 COVID-19 Pfizer Kvng Pawan l Other [facility] 12-05-2021 COVID-19 Vaccine Pfi zer - Documentation Purposes Only Kvng Melgar Other [facility] 04-14-2021 COVID-19 Vaccine Pfi zer - Documentation Purposes Only Kvng Melgar Other [facility] 04-06-2021 influenza virus vaccine, split virus (incl. purified surface antigen) Kvng Melgar Other [facility] Other 04-06-2021 influenza virus vaccine, unspecified formulation DO Kvng Melgar Work Phone: [facility] 04-06-2021 influenza, high-dose , quadrivalent vaccine (FLUZONE HIGH DOSE QUADRIVALENT) Mavis Santiago MD Work Phone: [facility] 08-27-2020 COVID-19 Vaccine Pfi zer - Documentation Purposes Only Kvng Melgar Other [facility] 08-04-2020 COVID-19 Vaccine Pfi zer - Documentation Purposes Only Kvng Melgar Other [facility] 04-04-2020 influenza virus vaccine, split virus (incl. purified surface antigen) Kvng Melgar Other [facility] Other 04-04-2020 influenza virus vaccine, unspecified formulation DO Kvng Melgar Work Phone: [facility] 04-04-2020 influenza, high-dose , quadrivalent vaccine (FLUZONE HIGH DOSE QUADRIVALENT) Mavis Santiago MD Work Phone: [facility] 04-18-2019 influenza, injectabl e, quadrivalent, preservative free Mavis Santiago MD Work Phone: [facility] 03-22-2019 Seasonal trivalent influenza vaccine, adjuvanted, preservative free Mavis Santiago MD Work Phone: [facility] 04-13-2018 influenza virus vaccine, split virus (incl. purified surface antigen) Kvng Melgar Other [facility] Other 04-13-2018 influenza virus vaccine, unspecified formulation DO Kvng Melgar Work Phone: [facility] 04-13-2018 Seasonal trivalent influenza vaccine, adjuvanted, preservative free Mavis Santiago MD Work Phone: [facility] 03-29-2018 pneumococcal polysaccharide vaccine, 23 valent Mavis Santiago MD Work Phone: [facility] 05-25-2017 Seasonal trivalent influenza vaccine, adjuvanted, preservative free Mavis Santiago MD Work Phone: [facility] 04-27-2016 influenza virus vaccine, split virus (incl. purified surface antigen) Kvng Melgar Other [facility] Other 04-27-2016 influenza virus vaccine, unspecified formulation DO Kvng Melgar Work Phone: [facility] 04-27-2016 influenza, high dose seasonal, preservative-free Mavis Santiago MD Work Phone: [facility] 04-23-2015 influenza, injectabl e, quadrivalent, preservative free Mavis Santiago MD Work Phone: [facility] 04-23-2015 pneumococcal polysaccharide vaccine, 23 valent Mavis Santiago MD Work Phone: [facility] 04-18-2015 influenza virus vaccine, split virus (incl. purified surface antigen) Kvng Melgar Other [facility] Other 04-18-2015 influenza virus vaccine, unspecified formulation DO Kvng Melgar Work Phone: [facility] 04-18-2015 pneumococcal conjuga te vaccine, 13 valent Kvng Melgar Other [facility] 05-21-2014 influenza, injectabl e, quadrivalent, contains preservative Adebayo Pan Other [facility] 04-26-2014 tetanus and diphther ia toxoids, adsorbed, preservative free, for adult use (5 Lf of tetanus toxoid and 2 Lf of diphtheria toxoid) Kvng Melgar Other [facility] 05-09-2013 pneumococcal polysaccharide vaccine, 23 valent Kvng Melgar Other [facility] 05-09-2013 tetanus and diphther ia toxoids, adsorbed, preservative free, for adult use (5 Lf of tetanus toxoid and 2 Lf of diphtheria toxoid) Kvng Melgar Other [facility] Payers Date Payer Category Payer Self-pay [id number] 2014 Private Health Insurance [id number] 2003 Medicare [id number] 2003 Unknown 1959 Medicare [id number] 1959 Private Health Insurance [id number] 1938 Unknown [id number] 2.16.84 0.1.530862.3.579.2.593 1938 Unknown [id number] 2.16.84 0.1.250563.3.579.2.593 1938 Unknown [id number] 2.16.84 0.1.863637.3.579.2.593 1938 Unknown [id number] 2.16.84 0.1.100400.3.579.2.593 1938 Unknown [id number] 2.16.84 0.1.412290.3.579.2.593 1938 Unknown [id number] 2.16.84 0.1.860230.3.579.2.593 1938 Unknown [id number] 2.16.84 0.1.345238.3.579.2.593 1938 Unknown [id number] 2.16.84 0.1.889869.3.579.2.593 1938 Unknown [id number] 2.16.84 0.1.504978.3.579.2.593 1938 Unknown [id number] 2.16.84 0.1.500903.3.579.2.1259 1938 Unknown [id number] 2.16.84 0.1.315494.3.579.2.1259 1938 Unknown [id number] 2.16.84 0.1.274047.3.579.2.1259 1938 Unknown [id number] 2.16.84 0.1.484781.3.579.2.1259 1938 Unknown [id number] 2.16.84 0.1.436330.3.579.2.1259 1938 Unknown [id number] 2.16.84 0.1.361325.3.579.2.1259 1938 Unknown [id number] 2.16. 840.1.685378.3.579.2.196 1938 Unknown [id number] 2.16. 840.1.735963.3.579.2.196 Medicare [id number] Unknown [id number] 2.16.8 40.1.027320.3.579.2.531 Unknown [id number] 2.16.8 40.1.705123.3.579.2.531 Social History Date Type Detail Facility Start: 01-03-2015 End: 05-27-2023 Tobacco smoking status NHIS Ex-smoker [facility] History of tobacco use Current smoker [facility] Start: 01-03-2015 Tobacco use and exposure Smokeless tobacco non-user [facility] Start: 05-17-2022 End: 07-27-2022 Alcohol intake Ex-drinker (finding) [facility] Start: 1940 Sex Assigned At Not on file [facility] Start: 05-08-2022 End: 05-25-2022 Exposure to SARS-CoV-2 (event) Not sure [facility] Start: 07-26-2022 End: 10-28-2022 Tobacco smoking status NHIS Never smoked tobacco (finding) [facility] Start: 1940 Sex Assigned At Female F [facility] Sex Assigned At Sex Assigned At Bir th [facility] Other Goals Date Patient Goal Desired Activity /State Clinical Notes 11-28-2019 to 08-10-2023 Note Date & Type Note Facility 08-10-2023 Evaluation note Encounter Date Diagnosis Assessment Notes Jul, Epigastric pain (ICD-10 - R10.13) Jul, Constipation (ICD-10 - K59.00) Oct, Nausea (ICD-10 - R11.0) Nausea [facility] Other 12-11-2023 Evaluation note* Encounter Date Diagnosis Assessment Notes Treatment Notes Treatment Clinical Notes Jun, Lumbar spondylosis (ICD-10 - M47.816) [facility] Other 11-21-2023 Evaluation note* Encounter Date Diagnosis Assessment Notes Treatment Notes Treatment Clinical Notes May, Claustrophobia (ICD-10 - F40.240) [facility] Other 11-17-2023 Evaluation note* Encounter Date Diagnosis [...] May, Other specified hypothyroidism (ICD-10 - E03.8) [facility] Other 11-10-2023 Evaluation note* Encounter Date Diagnosis Assessment Notes Treatment Notes Treatment Clinical Notes May, Lumbar spondylosis (ICD-10 - M47.816) [facility] Other 09-13-2023 Evaluation note* Encounter Date Diagnosis Assessment Notes Treatment Notes Treatment Clinical Notes Mar, Chronic superficial gastritis with bleeding (ICD-10 - K29.31) [facility] Other 08-25-2023 Evaluation note* Encounter Date Diagnosis Assessment Notes Treatment Notes Treatment Clinical Notes Feb, Allergic contact dermatitis due to plants, except food (ICD-10 - L23.7) Cool compresses, topical steroids and begin Prednisone. _update on Feb, Cellulitis of left upper extremity (ICD-10 - L03.114) Elevate and begin antibiotics, update on Tuesday [facility] Other 08-15-2023 Evaluation note* Encounter Date Diagnosis [...] exercise for 30 minutes, 3-5 times weekly. 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] mammogram for breast cancer (ICD-10 - Z12.31) [facility] Other 01-17-2023 NoteHNO ID: [id number] Author: Mavis Santiago MD Service: ? Author Type: Physician Type: Progress Notes Filed: 07/27/2022 2:56 PM Note Text: PATIENT NAME: Tangela Banks [facility] NO.: [id number] ATTENDING PHYSICIAN: Mavis Santiago MD DATE OF [...] Status 07/27/2022 18.0 (H) (more content not included)...[facility] 07-27-2022 History of Present illness Narrative* Mavis Santiago MD - 07/27/2022 2:48 PM EST PATIENT NAME: Tangela Trinidad [facility] NO.: [id number] ATTENDING PHYSICIAN: Mavis Santiago MD DATE OF [...] 07/27/2022 3.25 1.00 - 4.00 k/uL Final [place]% Date Value Ref Range Status 07/27/2022 14.0 % Final Abs [place] Date Value Ref Range Status 07/27/2022 1.25 [...] do not hesitate to contact me at [phone]. Mavis Santiago MD Hematology/Medical Oncology [facility] spent a total of 20 minutes on the date of the service which included preparing to see the patient, [id number] patient care, completing clinical documentation, obtaining and/or reviewing separately obtained history, performing a medically appropriate examination, counseling and educating the pat ient/family/caregiver, and ordering medications, tests, or procedures. CC: Kvng Melgar DO [facility] note* Encounter Date Diagnosis Assessment Notes Treatment Notes Treatment Clinical Notes Jul, Acute gastric ulcer without hemorrhage or perforation (ICD-10 - K25.3) [facility] Other [id number] Procedure [facility]01-11-2023 Evaluation note* Encounter Date Diagnosis Assessment Notes [...] Healty diet, keep active, consistent sleep routine [facility] Other 11-23-2022 NoteHNO ID: [id number] Author: MONY Mart Service: ? Author Type: Operational Review Sergeant Type: Progress Notes Filed: 06/02/2022 3:17 PM Note Text: Patient appears on the First Time Treatment List for a non-oncology treatment. No psychosocial assessment is indicated. KAYLEY Mart-[place]11-23-2022 History of Present illness Narrative* MONY Mart - 06/02/2022 3:16 PM EST Patient appears on the First Time Treatment List for a non-oncology treatment. No psychosocial assessment is indicated. KAYLEY Mart-[place] documented in [facility]22 Miscellaneous Notes* Telephone Encounter - Mohit Tapia - 05/25/2022 3:32 PM EST 1st report of treatment-non oncology regimen (Monoferric) Patient holds Medicare coverage. No FA available at this time. documented in this encounterK[facility]11-08-2022 NoteHNO ID: [id number] Author: Mavis Santiago MD Service: ? Author Type: Physician Type: Progress Notes Filed: 05/18/2022 4:08 PM Note Text: PATIENT NAME: Tangela Trinidad [facility] NO.: [id number] ATTENDING PHYSICIAN: Mavis Santiago MD DATE OF [...] Final Lymph% Date Va (more content not included)...[facility]11-08-2022 History of Present illness Narrative* Mavis Santiago MD - 05/18/2022 3:51 PM EST PATIENT NAME: Tangela Trinidad CLINIC NO.: [id number] ATTENDING PHYSICIAN: Mavis Santiago MD DATE OF [...] 05/11/2018 2.74 1.00 - 4.00 k/uL Final [place]% Date Value Ref Range Status 05/11/2018 12.1 % Final Abs [place] Date Value Ref Range Status 05/11/2018 1.12 [...] do not hesitate to contact me at [phone]. Mavis Santiago MD Hematology/Medical Oncology [facility] I spent a total of 30 minutes on the date of the service which included preparing to see the patient, [id number] patient care, completing clinical documentation, obtaining and/or reviewing separately obtained history, performing a medically appropriate examination, counseling and educating the pat ient/family/caregiver, and ordering medications, tests, or procedures. Medical Decision Making: Medical Decision Making Level: 1 - N/A CC: Kvng Melgar DO documented in this encounterK[facility]11-19-2020 Progress note Author [facility] May 29, 2020 11:30am Note Date/Time May 29, 2020 11:29am [facility] [place] [address] Hem/Onc Follow Up Note - OP Signed Patient: Tangela Trinidad MR#: [id number] : 1940 Acct:[id number] Age/Sex: 80 / F Type: REG RCR [...] Rash Penicillins Allergy (Verified 11/28/19 10:23) Hives Cwjpbdq-Wsx-Ezf Reductase Inhibitor Allergy (Verified 11/28/19 10:23) Unknown [...] Neut % (Auto) 50.8,Lymph % (Auto) 30.1, [place] % (Auto) 14.9, Eos % (Auto) 3.3, Baso % (Auto) 0.9, Neut # (Auto) 4.4, Lymph # (Auto) 2.6, [place] # (Auto) 1.3 H, Eos # (Auto) [...] for coordination of care (as documented) and asaf-dz-bvdo counseling of patient and/or family. Dictated By: Nicho Salcedo MD DD/ [id number] Signed By: <Electronically signed by MD Nicho Salcedo> 05/29/20 1130 [facility] Work Phone: [phone] 813-530705-20-2020 Progress note Author Nicho Salcedo [facility] November 28, 2019 12:52pm Note Date/Time November 28, 2019 12:50 pm [facility] [place] [address] Hem/Onc Follow Up Note - OP Signed Patient: Tangela Trinidad MR#: [id number] : 1940 Acct:[id number] Age/Sex: 79 / F Type: REG RCR [...] She has no complaints today. [facility] - Social History Smoking Status: Never smoker Home Medications & Allergies Allergies Cephalosporins Allergy (Verified 11/28/19 10:23) Unknown Reaction nitrofurantoin [From Macrodantin] Allergy (Verified 11/28/19 10:23) Rash Penicillins Allergy (Verified 11/28/19 10:23) Hives Bfbkrnu-Brj-Rrp Reductase Inhibitor Allergy (Verified 11/28/19 10:23) Unknown [...] Neut % (Auto) 49.9,Lymph % (Auto) 27.3, [place] % (Auto) 15.1, Eos % (Auto) 6.5, Baso % (Auto) 1.2, Neut # (Auto) 4.3, Lymph # (Auto) 2.4, [place] # (Auto) 1.3 H, Eos # (Auto) [...] for coordination of care (as documented) and domn-um-lies counseling of patient and/or family. Dictated By: Nicho Salcedo MD DD/ 1249 Signed By: <Electronically signed by MD Nicho Salcedo> 11/28/19 1252 [facility] Work Phone: Evaluation note* Diagnosis Iron deficiency- Primary Iron deficiency anemia, unspecified documented in this encounter [facility] note* Diagnosis Iron deficiency anemia, unspecified iron deficiency anemia type- Primary Iron deficiency Iron deficiency anemia, unspecified documented in this encounter [facility]* Diagnosis Iron deficiency- Primary Iron deficiency anemia, unspecified documented in this encounter [facility] noteNo assessment information availableOhio [facility] Work Phone: Evaluation noteNo [employer] Other Evaluation note* Diagnosis Onset Date Resolution [...] acute Medicare annual wellness visit, subsequent noneactive [facility] Work Phone: History and physical note Author Jeyson Diaz [facility] July 26, 2022 8:09am Note Date/Time July 26, 2022 8 :09am [facility] [address] [place] [address] Gastroenterology H&P Signed Patient: Tangela Trinidad MR#: [id number] : 1940 Acct:[id number] Age/Sex: 82 / F Adm Date: 3 Loc: Room: Type: [facility] Attending Dr: Jeyson Diaz MD Copies [...] <Electronically signed by Jeyson Diaz MD> 07/26/[address] [facility] Work Phone: History and physical note Author Jeyson Diaz [facility] October 28, 2022 1:13pm Note Date/Time October 28, 2022 1:1 3pm [facility] [address] [place] [address] Gastroenterology H&P Signed Patient: Tangela Trinidad MR#: [id number] : 1940 Acct:[id number] Age/Sex: 82 / F Adm Date: 3 Loc: Room: Type: [facility] Attending Dr: Jeyson Diaz MD Copies [...] signed by Jeyson Diaz MD> 10/28/[address] 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 Medical History Essential hypertension Medical History [...] History colonoscopy 07/26/22 Hospitalization History see above Melon #usemelon Other History general Narrative - Reported* Type Description Date Medical History Cervical spondylosis Medical History Vitamin D deficiency Medical History Hyponatremia Medical History Malaise Medical History Fatigue Medical History Depression screening Medical History Encounter for screening breast e xamination Medical History Leukocytosis Medical History 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 Medical History Essential hypertension Medical History [...] w/ biopsy 10/2022 Hospitalization History see above Melon #usemelon Other Hiszlfr general Narrative - Reported* Type Description Date Medical History Cervical spondylosis Medical History Vitamin D deficiency Medical History Hyponatremia Medical History Malaise Medical History Fatigue Medical History Depression screening Medical History Encounter for screening breast e xamination Medical History Leukocytosis Medical History Chronic hydm-XEYGM-87 syndrome Medical History Essential hypertension Medical History [...] History EGD 01/2023 Hospitalization History see above Melon #usemelon Other Hospital Discharge instructions Additional Instructions DISCHARGE [...] NOT operate machinery such as power tools, [employer] mowers, snow blowers, sewing machines, etc. for [...] -Follow up with PCP. - Office number [phone]. [facility] Work Phone: Hospital Discharge instructions Additional Instructions [...] NOT operate machinery such as power tools, [employer] mowers, snow blowers, sewing machines, etc. for [...] problems. -Follow up with PCP. -Office number [phone]. [facility] Work Phone: Hospital Discharge instructions Additional Instructions [...] NOT operate machinery such as power tools, [employer] mowers, eTruck blowers, sewing machines, etc. for 24 hours. [...] problems. -Follow up with PCP. -Office number [phone]. [facility] Work Phone: Summary Purpose Family [...] DATE CREATED AUTHOR AUTHOR'S ORGANIZ ATION 08/04/2022 [facility] DATE CREATED AUTHOR AUTHOR'S ORGANIZ ATION 11/10/2022 [facility] DATE CREATED AUTHOR AUTHOR'S ORGANIZ ATION 03/25/2024 [facility] DATE CREATED AUTHOR AUTHOR'S ORGANIZ ATION 03/31/2024 [facility] DATE CREATED AUTHOR AUTHOR'S ORGANIZ ATION 04/13/2024 [facility] Source Comments (unrecognize d section and content) In the event this informatio n is protected by the Federal Confidentiality of Alcohol and Drug Abuse Patient Records regulations: The Federal rules restrict any use of the information to criminally investigate or prosecute any alcohol or drug abuse patient.[facility] the event this information is protected by the Federal Confidentiality of Alcohol and Drug Abuse Patient Records regulations: The Federal rules restrict any use of the information to criminally investigate or prosecute any alcohol or drug abuse patient.[facility] Hospital[facility] the event this information is protected by the Federal Confidentiality of Alcohol and Drug Abuse Patient Records regulations: The Federal rules restrict any use of the information to criminally investigate or prosecute any alcohol or drug abuse patient.[facility] Hospital[facility] the event this information is protected by the Federal Confidentiality of Alcohol and Drug Abuse Patient Records regulations: The Federal rules restrict any use of the information to criminally investigate or prosecute any alcohol or drug abuse patient.[facility] Hospital[facility] the event this information is protected by the Federal Confidentiality of Alcohol and Drug Abuse Patient Records regulations: The Federal rules restrict any use of the information to criminally investigate or prosecute any alcohol or drug abuse patient.[facility] Hospital[facility] the event this information is protected by the Federal Confidentiality of Alcohol and Drug Abuse Patient Records regulations: The Federal rules restrict any use of the information to criminally investigate or prosecute any alcohol or drug abuse patient.[facility] Care Teams (unrecognized sec tion and content) Team Status: Active Member Role Status Dates Kvng Melgar DO Primary Care Provider Active Team Status: Inactive Member Role Status Dates Kvng Melgar DO Primary Care Provider Active Jeyson Diaz MD Attending Provider Active Radiology Asst Relationship Specialty Start Date End Date Kvng Melgar DO PCP - General Internal Medicine 11/14/14 Radiology Asst Relationship Specialty Start Date End Date Kvng Melgar DO PCP - General Internal Medicine 11/14/14 Radiology Asst Relationship Specialty Start Date End Date Kvng Melgar PCP - General Internal Medicine 11/14/14 Radiology Asst Relationship Specialty Start Date End Date Kvng Melgar PCP - General Internal Medicine 11/14/14 Radiology Asst Relationship Specialty Start Date End Date ErmelindaKvng DO PCP - General Internal Medicine 11/14/14 Radiology Asst Relationship Specialty Start Date End Date Kvng [...] type Iron deficiency Mavis Santiago MD [address] [place] [id number] [address] [place] [address] Referral ID Status Reason Start Date Expiration Date V isits Requested Visits Authorized [id number] Authorized 05/18/2022 08/16/2022 99 99 Reason Comments [...] BE BASED ON THE PRIMARY CLINICAL RECORDS. [facility] [employer] [facility]. provides no warranty or guarantee of the accuracy or completeness of information in this document.
--- NOTE | 2024-05-03 11:35 | P.CN_ITS ---
Consult Note: HPI Data of Consult Patient: known to practice within the last 3 years Consult date: 04/02/24 Requesting Physician: Bre Donis NP Primary Care Provider: Kvng Melgar DO Consult Narrative Reason for consult: low back, right leg pain Narrative: 84yof who presents for evaluation. longstanding low back, right leg pain. imaging shows multilevel severe stenosis, worst at l3-4 and l4-5. fused from l5- s1. has engaged in a series of provider directed home exercises >6 weeks without lasting benefit. uses otc pain meds as needed. denies adverse med side effects. recently underwent right L3/4 L4/5 TFESI with mild relief per pt and right SIJ injection with no improvement. pain 7/10 in low back and hips, aching all over. cc:: CC: Bre Donis NP Review of Systems ROS Status of ROS 10 or more systems reviewed and unremark able except as noted in history and below Musculoskeletal Reports: back pain and joint pain PFSH PFSH Medical History (Updated 05/03/24 @ 11:37 by Bre Donis NP) Cystocele with rectocele ?N81.10 - Cystocele, unspecified (ICD-10) ?N81.6 - Rectocele (ICD-10) Anemia ?D64.9 - Anemia, unspecified (ICD-10) Hearing deficit ?H91.90 - Unspecified hearing loss, unspecified ear (ICD-10) Stomach ulcer ?K25.9 - Gastric ulcer, unspecified as acute or chronic, without hemorrhage or perforation (ICD-10) History of hypothyroidism ?Z86.39 - Personal history of other endocrine, nutritional and metabolic disease (ICD-10) High blood cholesterol level ?E78.00 - Pure hypercholesterolemia, unspecified (ICD-10) Angina at rest ?I20.89 - Other forms of angina pectoris (ICD-10) High blood pressure ?I10 - Essential (primary) hypertension (ICD-10) Surgical History History of blepharoplasty ?Z98.890 - Other specified postprocedural states (ICD-10) History of total right knee replacement ?Z96.651 - Presence of right artificial knee joint (ICD-10) History of hysterectomy ?Z90.710 - Acquired absence of both cervix and uterus (ICD-10) History of lumbar fusion ?Z98.1 - Arthrodesis status (ICD-10) History of fusion of cervical spine ?Z98.1 - Arthrodesis status (ICD-10) History of appendectomy ?Z90.49 - Acquired absence of other specified parts of digestive tract (ICD- 10) Meds Home Medications and Allergies Home Medications ?Medication ?Instructions ?Recorded ?Confirmed ?Type amlodipine 5 mg tablet 5 mg PO DAILY 04/02/24 04/23/24 History atenolol 25 mg tablet 25 mg PO DAILY 04/02/24 04/23/24 History cholecalciferol (vitamin D3) 10 800 unit PO DAILY 04/02/24 04/23/24 History mcg (400 unit) capsule levothyroxine 112 mcg tablet 112 mcg PO DAILY 04/02/24 04/23/24 History multivitamin (Daily Multi-Vitamin 1 tab PO DAILY 04/02/24 04/23/24 History tablet) pantoprazole 40 mg tablet,delayed 40 mg PO DAILY 04/02/24 04/23/24 History release tramadol 50 mg tablet 50 mg PO DAILY 04/02/24 04/23/24 History tsjplbk-tftxtrmgizbgq-szmarocq 250 1 tab PO Q6H PRN pain 04/23/24 04/23/24 History mg-250 mg-65 mg tablet (Excedrin Extra Strength) Allergies Allergy/AdvReac Type Severity Reaction Status Date / Time Penicillins Allergy Unknown Unknown Verified 04/09/24 10:11 Sulfa (Sulfonamide Allergy Unknown Unknown Verified 04/09/24 10:11 Antibiotics) vancomycin Allergy Unknown Unknown Verified 04/09/24 10:11 STATINS Allergy Unknown Unknown Uncoded 04/09/24 10:11 Exam Constitutional Documenting provider has reviewed patient's vital signs: yes Common normals: no apparent distress, oriented x3, healthy appearing, alert and well nourished General appearance: cooperative [facility] Common normals: normocephalic, hearing grossly normal bilaterally and moist oral mucous membranes Head and scalp: normocephalic Eye Common normals: PERRL Pupil: PERRL Neck & C-Spine Common normals: full ROM General: normal visual inspection Chest Common normals: inspection of chest normal Respiratory Common normals: normal respiratory effort, no retractions and no use of accessory muscles Back & Pelvis Lumbar spine/lower back: ROM limited, pain with ROM and straight leg raise negative bilaterally Sacroiliac joints: SI joints normal Other: facet loading positive sensation intact BLE strength 5/5 in BLE Extremity Common normals: normal to inspection and full ROM Neuro Common normals: oriented x3, CN's II-XII intact bilaterally, moves all extremities, no focal motor deficits, no sensory deficits noted and deep tendon reflexes 2+ bilaterally Sensorium/orientation: alert Motor exam: strength 5/5 throughout and no movement abnormalities noted Psych Common normals: mental status grossly normal, thought process normal, cooperative, affect normal, speech normal and activity/motor behavior normal Speech: normal speech Thought process: normal thought process Results Additional Findings Additional findings: If on a controlled substance or opioids, I have checked an [place] report on this patient and there are no aberrancies noted in the prescribing history.??If on a controlled substance or opioid a drug screen was completed and reviewed within the last year, and if there has not been a drug screen completed we ordered one today to monitor higher risk, state monitored pain medication use. As part of providing excellent, safe, comprehensive care, the following was completed at our patient's visit: 1. A medication reconciliation and review to ensure accurate knowledge of current/active medications, including asking our patients to inform us about any xnps-rdz-zbhyqgd medications or herbal remedies/nutritional supplements/alternative remedies. 2. A review to specifically ensure our patients have had annual screening for screening for depression, screening for tobacco use, and screening for unhealthy alcohol use. For concerning screenings had a discussion with the patient, provided patient education, and recommended follow-up with primary care provider when appropriate. If patient noted with a risk of falling, they received education on strength, gait, and balance training to prevent future risk of falling. 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
== END 2024-05-03 11:11 | disposition home or self-care (01) ==
LOC: PM 11:10
PROVIDERS: PCP Internal Medicine; Visit Provider Nurse Practitioner
DX: M47.816 Spondylosis without myelopathy or radiculopathy, lumbar region (principal); M48.062 Spinal stenosis, lumbar region with neurogenic claudication; M53.3 Sacrococcygeal disorders, not elsewhere classified; M96.1 Postlaminectomy syndrome, not elsewhere classified
CPT/HCPCS: G0463

== ENCOUNTER 2024-05-12 09:15 | Observation (INO) | payer MEDICARE, OTHER, SELFPAY ==
[2024-05-12] VITALS (19 sets, daily range): BP systolic 125–157; BP diastolic 78–89; PULSE 60–95; TEMP 36.5–36.7; O2SAT 91–99; BMI 25.5; BMI 25.2
--- NOTE | 2024-05-12 09:21 | CT_ITS ---
The [address] [address] Patient Name: ELIANE MOSS MRN: [id number] date: 1940 Sex: F Assigned Patient Location: ER Current Patient Location: Accession/Order Number: [id number] Exam Date: 05/12/2024 09:33 Report Date: 05/12/2024 10:02 At the request of: REGIS CHACON Procedure: CT head/brain wo con EXAMINATION: CT head/brain wo con HISTORY: weakness bilateral . COMPARISON: MRI brain 10/14/2023 TECHNIQUE: CT head without intravenous contrast. Dose reduction techniques were achieved by using: automated exposure control and/or adjustment of mA and /or kV according to patient size and/or use of iterative reconstruction technique. FINDINGS: Significant degradation of image quality from motion artifact. The ventricles and sulci are within normal limits in size and configuration for age. There is no evidence for acute intracranial hemorrhage. There is moderate hypoattenuation supratentorial white matter. There is no mass effect or midline shift. There are no abnormal extraaxial fluid collections. CT/CT head/brain wo con IMPRESSION: 1. There is significant degradation of image quality from motion artifact. Within the constraints of exam, there is no evidence for acute intracranial hemorrhage or convincing acute intracranial process. 2. There appears to be moderate chronic microvascular ischemia in the supratentorial white matter. Electronically authenticated by: CORINA IQBAL Date: 05/12/2024 10:02
--- NOTE | 2024-05-12 09:21 | ECG_ITS ---
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
--- OUTSIDE RECORDS SUMMARY | 2024-05-12 09:38 | XMS_ITS | CCD ---
Author Organization [facility] Care Team Providers Care Department [employer] Name Role Phone Doctor, No Unavailable Unavailable Doctor, No Unavailable Unavailable Donnell Barton Unavailable Unavailable Donnell Barton Unavailable Unavailable Kvng Melgar DO Primary Care Provider Kvng Melgar DO Primary Care Provider DO Kvng Melgar Primary Care Provider [phone] MD Jeyson Diaz Attending Provider KVNG MELGAR [...] Care Provider MD Jeyson Diaz Attending Provider [phone] ERMELINDA, DR CALDERON Primary Care Unavailable [...] Ball, DO Calderon Primary Care Provider MD Joe Imprice Attending Provider [phone] Ermelinda, DO Calderon Primary Care Provider MD Joe Imprice Attending Provider [phone] Ermelinda, DO Calderon Primary Care Provider DO Lorelei Hurtado Attending Provider [phone] Kvng Melgar Primary Care Unavailable Lorelei Hurtado Admitting Unavailab Lorelei Wetzel Attending Unavailab le Ermelinda, Kvng Primary Care Unavailable Asaad, Imad Admitting Unavailable Asaad, Imad Attending Unavailable TED GILMORE Attending Unavailable TED GILMORE Referring Unavailable LORELEI HURTADO Attending Unavailable LORELEI HURTADO Attending Unavailable NICHO MARC Attending Unavailable LORELEI HURTADO Attending Unavailable Gurmeet REDD, Charlotte Costa Attending Unavailable Gurmeet REDD, Andlizabeth Costa Attending Unavailable Gurmeet REDD, Charlotte Costa Attending Unavailable Allergies Allergy Classification Reported Allergen(s) Allergy Type Date of Onset Reaction(s) Facility (8 sources) Penicillins; Translations: [PENICILLINS] Drug allergy (disorder) 11-16-19 15 AOF, Hives, Hives, PENICILLINS [facility] Repository (8 sources) Sulfonamides (Antibiotic); Translations: [SULFA (SULFONAMIDE ANTIBIOTICS)] Drug allergy (disorder) 11-16-19 15 AOF, Hives, Hives, Comment:2005 [facility] Repository (7 sources) Aksbphm-Hyn-Gpf Reductase Inhibitor Drug allergy (disorder) 01-06-20 18 Unknown Reaction, Unknown Reaction, muscle aches [facility] Repository (20 sources) Cephalosporins (Antibiotic); Translations: [CEPHALOSPORINS] Drug Allergy 10-24-19 15 Unknown [facility] (7 sources) HMG-CoA reductase inhibitor; Translations: [CJIAISD-GLO-HEA REDUCTASE INHIBITORS] Drug Allergy 01-06-20 18 Unknown [facility] (7 sources) Nitrofurantoin; Translations: [NITROFURANTOIN MACROCRYSTAL] Drug Allergy 10-12-19 19 Rash, Itching [facility] (6 sources) Penicillins Drug Allergy 11-16-19 15 [facility] (20 sources) Povidone-Iodine; Translations: [POVIDONE-IODINE] Drug Allergy 06-21-20 19 Unknown [facility] (20 sources) Sulfonamides (Antibiotic) Drug Allergy 11-16-19 15 [facility] (20 sources) Vancomycin; Translations: [VANCOMYCIN] Drug Allergy 10-12-19 19 Rash, Itching [facility] (20 sources) Nitrofurantoin; Translations: [nitrofurantoin] Drug Allergy 12-02-19 21 rash [facility] (20 sources) Penicillin G Benzathine Drug allergy rash [facility] Other (20 sources) Sulfacetamide / Sulfur Drug Allergy rash [facility] Other (20 sources) Statins Depletion Drug allergy muscle aches [facility] Other (1 source) black walnut pollen extract Drug Allergy 05-17-20 14 [facility] Repository (1 source) Cephalosporins (Antibiotic) Drug allergy (disorder) 10-24-19 15 [facility] Repository (2 sources) Nitrofurantoin Drug Allergy 10-24-19 15 rash [facility] Repository (1 source) Penicillins Drug allergy (disorder) 01-24-20 13 [facility] Repository (2 sources) Povidone-Iodine Drug Allergy 06-21-20 19 Unknown [facility] Repository (1 source) Sulfonamides (Antibiotic) Drug allergy (disorder) 01-31-20 13 [facility] Repository (1 source) Vancomycin Drug Allergy 10-24-19 15 [facility] Repository (20 sources) Statins Depletion *DIETARY PRODUCTS/DIETARY MANAGE Propensity to adverse reactions Unknown [facility] Other (20 sources) Substance with penicillin structure and antibacterial mechanism of action (substance) Drug allergy 04-30-20 06 PENICILLINS [facility] Other (20 sources) Sulf-10 Drug allergy 12-01-19 06 SULFA 10 [facility] Other (1 source) Vancomycin Drug Allergy rash [facility] Other (1 source) Cephalosporins (Antibiotic) Drug allergy (disorder) 03-16-20 [facility] Repository (1 source) Povidone-Iodine Drug Allergy 03-16-20 [facility] Repository (1 source) Vancomycin Drug Allergy 03-16-20 [facility] Repository Medications Current Medications Medication [...] by mouth every four to six hours Pwtsxoy-Wcllnaansgilq-Beclddkn (Excedrin Migraine) 250-250-65 mg Tablet Active 1 TAB PO EVERY 4-6 HOURS July 26, 2022 1:00am take 2 tablets by mouth every si x hours Excedrin Migraine 250-250-65 MG 2 tablets as needed Orally every 6 hrs Active [id number] actuat albuterol 0.09 mg/actuat metered dose [...] Start: 12-28-2017 take 1 capsule by mo [facility] every twelve hours Doxycycline Hyclate 100 MG [...] DAYS Start: 12-28-2022 take 1 tablet by [facility] once daily in the morning Levothyroxine Sodium [...] on above: TAKE 1 TABLET BY GEORGE EVERYDAY ON AN EMPTY STOMACH 0.125 mcg. [...] sources) Multivitamin Act kerri Multivitamin Not -Taking Garner 3 1200 MG (20 sources) take 1 capsule by [facility] once daily Garner 3 1200 MG 1 capsule Orally Once a day Active take 1 capsule by mouth once taniya ly Garner 3 1200 MG 1 capsule Orally Once [...] needed Orally every 6 hrs Not-Taking Vit C,V-Ar-Vlulg-Lutein-Zeax an (Preservision Areds-2) 250-90-40-1 mg Capsule (5 sources) Start: 07-26-2022 Vit C,F-Bn-Kfjbh-Lutein-Zeax an (Preservision Areds-2) 250-90-40-1 mg Capsule Active 1 TAB PO Twice daily July 26, 2022 1:00am Start: 07-26-2022 Vit C,E-Zn-Communication Skills Instructor pd-Ejbvew-Dditcr (Preservision Areds-2) 250-90-40-1 mg Capsule Active 1 [...] Comment on above: Take by mouth. CA/D3/MAG OX/ZINC/CURRICULUM DESIGNER/MEREDITH/ BOR (CALCIUM 600+D3 PLUS ORAL) (6 sources) take 1200 mg by mouth once daily CA/D3/MAG OX/ZINC/CURRICULUM DESIGNER/MEREDITH/B OR (CALCIUM 600+D3 PLUS ORAL) Take 1,200 mg by mouth once daily. 0 Active Comment on above: Take 1,200 mg by [facility] once daily. 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; Translations: [Chronic qaab-LWMCS-41 syndrome] Viral infection (4 sources) COVID-19; Translations: [...] 05-22-2020 Episodic Other aftercare (1 source) Other residential (current) drug therapy; Translations: [[facility] [...] Interpretation Reference Range Facility CT chest w [facility] 03-16-2024 CT chest w [facility] [place] [address] CT Scan Report Signed Patient: Tangela Trinidad MR#: [id number] : 1940 Acct:[id number] Age/Sex: 84 / F ADM Date: 03/16/24 Loc: CT Room: Type: [facility] Attending Dr: Lorelei Hurtado DO Copies to: [...] mass. Impression dictated by: Bert Viveros Jr., D.OOrlin03/16/2024 2:09 PM Dictation Location: [place] [address] Transcribed By: [facility] 03/16/24 1409 Dictated By: Bert Viveros Jr, DO 03/16/24 1403 Signed By: 03/16/24 140 Normal [facility] Creatinineon 03-16-2024 GFR/1.73 sq M.predicted MDRD (S/P/Bld) [Vol rate/Area] mL/min/{1.73_m2} Normal [facility] Comment on above: Result Comment: PERF ORMED BY: [place] [address] PATHOLOGIST DELIVERY ANALYST SPEEDY GRAY M.D. Performed By: #### C REAT #### [facility] [address] [place] [address] Creatinine [Mass/volume] in Serum or PlasmaOrdered By: Lorelei Hurtado on 03-16-2024 Creatinine [Mass/Vol] 0.83 mg/dL Normal 0.60-1.20 [facility] Comment on above: Performed By: #### C REAT #### [facility] [address] [place] [address] No Panel InformationOrdered By: Lorelei Hurtado on 03-16-2024 Estimated GFR (CKD-EPI) > 60.0 mL/Min [facility] Creatinine Clearance (Chem N/A [facility] NM gastric emptying studyon 07-25-2023 NM gastric emptying study [facility] Main [place] [address] [place] [address] Nuclear Medicine Report Signed Patient: Tangela Trinidad MR#: [id number] : 1940 Acct:[id number] Age/Sex: 83 / F ADM Date: 07/25/23 Loc: [place] Room: Type: [facility] Attending Dr: Jeyson Diaz MD Copies to: [...] Matt Feldman M.D.07/25/2023 9:40 AM Dictation Location: [place] [address] Transcribed By: [facility] 07/25/23 0940 Dictated By: Matt Feldman DO 07/25/23 0934 Signed By: 07/25/23 0940 Normal [facility] MG MAMM SCREEN 3D ROXANA CADon 10-20-2022 MG MAMM SCREEN 3D ROXANA CAD Patient: TANGELA TRINIDAD. Exam Date: 10/20/2022 : 1940 Gender:F Ordering : DR KVNG MELGAR D.O. Admission #: [id number] Family : Order #: [id number] CLICK HERE TO VIEW EXAM RADIOLOGY REPORT [...] melonoma cancer at age 64. LOCATION: [facility] BREAST COMPOSITION: Scattered areas fibroglandular [...] M.D. on 10/20/2022 at 13:19 Normal [facility] CBC W Auto Differential pane l (Bld)on 07-27-2022 Basophils (Bld) [#/Vol] 0.08 10*3/uL Normal <0.11 [facility] Comment on above: Order Comment: Speci men Type: BLOOD SPECIMEN Ordering Facility: [facility] Address: [address] [place] [address] Performed By: #### 1 4196-0, 78220-8 #### [facility] CLIA [id number] [address] [place] [address] Basophils/100 WBC (Bld) 0.9 % Normal [facility] Comment on above: Order Comment: Speci men Type: BLOOD SPECIMEN Ordering Facility: [facility] Address: [address] [place] [address] Performed By: #### 1 4196-0, 77866-0 #### [facility] CLIA [id number] [address] [place] [address] Differential cell count method Nom (Bld) Auto Normal [facility] Comment on above: Order Comment: Speci men Type: BLOOD SPECIMEN Ordering Facility: [facility] Address: [address] [place] [address] Performed By: #### 1 4196-0, 30239-8 #### [facility] CLIA [id number] [address] [place] [address] Eosinophils (Bld) [#/Vol] 0.52 10*3/uL High <0.46 [facility] Comment on above: Order Comment: Speci men Type: BLOOD SPECIMEN Ordering Facility: [facility] Address: [address] [place] [address] Performed By: #### 1 4196-0, 18665-0 #### [facility] CLIA [id number] [address] [place] [address] Eosinophils/100 WBC (Bld) 5.8 % Normal [facility] Comment on above: Order Comment: Speci men Type: BLOOD SPECIMEN Ordering Facility: [facility] Address: [address] [place] [address] Performed By: #### 1 4196-0, 97133-1 #### [facility] CLIA [id number] [address] [place] [address] Erythrocyte distribution width (RBC) [Ratio] 18.0 % High 11.5-15.0 [facility] Comment on above: Order Comment: Speci men Type: BLOOD SPECIMEN Ordering Facility: [facility] Address: [address] [place] [address] Performed By: #### 1 4196-0, 17459-3 #### [facility] CLIA [id number] [address] [place] [address] Hematocrit (Bld) [Volume fraction] 39.6 % Normal 36.0-46.0 [facility] Comment on above: Order Comment: Speci men Type: BLOOD SPECIMEN Ordering Facility: [facility] Address: [address] [place] [address] Performed By: #### 1 4196-0, 52976-2 #### [facility] CLIA [id number] [address] [place] [address] Hemoglobin (Bld) [Mass/Vol] 13.0 g/dL Normal 11.5-15.5 [facility] Comment on above: Order Comment: Speci men Type: BLOOD SPECIMEN Ordering Facility: [facility] Address: [address] Performed By: #### 1 4196-0, 26875-9 #### [facility] CLIA [id number] [address] [place] [address] Immature granulocytes (Bld) [#/Vol] 0.04 10*3/uL Normal <0.10 [facility] Comment on above: Order Comment: Speci men Type: BLOOD SPECIMEN Ordering Facility: [facility] Address: [address] [place] [place] [address] Performed By: #### 1 4196-0, 73772-7 #### [facility] CLIA [id number] [address] [place] [address] Immature granulocytes/100 WBC (Bld) 0.4 % Normal [facility] Comment on above: Order Comment: Speci men Type: BLOOD SPECIMEN Ordering Facility: [facility] Address: [address] [place] [place] [address] Performed By: #### 1 4196-0, 45193-9 #### [facility] CLIA [id number] [address] [place] [address] Lymphocytes (Bld) [#/Vol] 3.25 10*3/uL Normal 1.00-4.00 [facility] Comment on above: Order Comment: Speci men Type: BLOOD SPECIMEN Ordering Facility: [facility] Address: [address] [place] [address] Performed By: #### 1 4196-0, 17203-4 #### [facility] CLIA [id number] [address] [place] [address]81 Lymphocytes/100 WBC (Bld) 36.3 % Normal [facility] Comment on above: Order Comment: Speci men Type: BLOOD SPECIMEN Ordering Facility: [facility] Address: [address] [place] [address] Performed By: #### 1 4196-0, 72340-7 #### [facility] CLIA [id number] [address] [place] [address] 57376 MCH (RBC) [Entitic mass] 28.3 pg Normal 26.0-34.0 [facility] Comment on above: Order Comment: Speci men Type: BLOOD SPECIMEN Ordering Facility: [facility] Address: [address] [place] [address] Performed By: #### 1 4196-0, 18173-9 #### [facility] CLIA [id number] [address] [place] [address] 39653 MCHC (RBC) [Mass/Vol] 32.8 g/dL Normal 30.5-36.0 [facility] Comment on above: Order Comment: Speci men Type: BLOOD SPECIMEN Ordering Facility: [facility] Address: [address] [place] [address] Performed By: #### 1 4196-0, 63565-1 #### [facility] CLIA [id number] [address] [place] [address] MCV (RBC) [Entitic vol] 86.1 fL Normal 80.0-100.0 [facility] Comment on above: Order Comment: Speci men Type: BLOOD SPECIMEN Ordering Facility: [facility] Address: [address] [place] [address] Performed By: #### 1 4196-0, 39782-8 #### [facility] CLIA [id number] [address] [place] [address]168 Monocytes (Bld) [#/Vol] 1.25 10*3/uL High <0.87 [facility] Comment on above: Order Comment: Speci men Type: BLOOD SPECIMEN Ordering Facility: [facility] Address: [address] [place] [address] Performed By: #### 1 4196-0, 94802-2 #### [facility] CLIA [id number] [address] [place] [address] 8[address]36 Monocytes/100 WBC (Bld) 14.0 % Normal [facility] Comment on above: Order Comment: Speci men Type: BLOOD SPECIMEN Ordering Facility: [facility] Address: [address] [place] [place] [address] Performed By: #### 1 4196-0, 35635-5 #### [facility] CLIA [id number] [address] [place] [address]243 Neutrophils (Bld) [#/Vol] 3.81 10*3/uL Normal 1.45-7.50 [facility] Comment on above: Order Comment: Speci men Type: BLOOD SPECIMEN Ordering Facility: [facility] Address: [address] [place] [place] [address] Performed By: #### 1 4196-0, 43132-9 #### [facility] CLIA [id number] [address] [place] [address] 98474 Neutrophils/100 WBC (Bld) 42.6 % Normal [facility] Comment on above: Order Comment: Speci men Type: BLOOD SPECIMEN Ordering Facility: [facility] Address: [address] [place] [address] Performed By: #### 1 4196-0, 42611-1 #### [facility] CLIA [id number] [address] [place] [address]28 Nucleated RBC (Bld) [#/Vol] 10*3/uL Normal <0.01 [facility] Comment on above: Order Comment: Speci men Type: BLOOD SPECIMEN Ordering Facility: [facility] Address: [address] [place] [address] Performed By: #### 1 4196-0, 01300-7 #### [facility] CLIA [id number] [address] [place] [address] 50092 Nucleated RBC/100 WBC (Bld) [Ratio] 0.0 /100 WBC Normal [facility] Comment on above: Order Comment: Speci men Type: BLOOD SPECIMEN Ordering Facility: [facility] Address: [address] [address] Performed By: #### 1 4196-0, 75891-7 #### [facility] CLIA [id number] [address] [place] [address] 36602 Platelet mean volume (Bld) [Entitic vol] 9.5 fL Normal 9.0-12.7 [facility] Comment on above: Order Comment: Speci men Type: BLOOD SPECIMEN Ordering Facility: [facility] Address: [address] [place] [address] Performed By: #### 1 4196-0, 39190-2 #### [facility] CLIA [id number] [address] [place] [address] 07080 Platelets (Bld) [#/Vol] 379 10*3/uL Normal 150-400 [facility] Comment on above: Order Comment: Speci men Type: BLOOD SPECIMEN Ordering Facility: [facility] Address: [address] [place] [address] Performed By: #### 1 4196-0, 33711-3 #### [facility] CLIA [id number] [address] [place] [address] 64649 RBC (Bld) [#/Vol] 4.60 10*6/uL Normal 3.90-5.20 [facility] Comment on above: Order Comment: Speci men Type: BLOOD SPECIMEN Ordering Facility: [facility] Address: [address] [place] [address] Performed By: #### 1 4196-0, 09897-0 #### [facility] CLIA [id number] [address] [place] [address] 35032 WBC (Bld) [#/Vol] 8.95 10*3/uL Normal 3.70-11.00 [facility] Comment on above: Order Comment: Speci men Type: BLOOD SPECIMEN Ordering Facility: [facility] Address: [address] [place] [address] Performed By: #### 1 4196-0, 05195-0 #### [facility] CLIA [id number] [address] [place] [address]671 CNOVSPon 07-27-2022 CNOVSP Visit (SP) Office (HEMASA) TANGELA TRINIDAD ([id number]) 1940 F Date Time Provider Department 07/27/22 2:45 PM MAVIS SANTIAGO During your visit today, we recorded the following information about you: Temperature Pulse Respiration Blood pressure 98.1 degrees 64/minute 16/minute 125/72 Weight Height 66.5 kg 1.524 m Mavis Santiago MD 07/27/2022 2:56 PM Signed PATIENT NAME: Tangela Trinidad CLINIC NO.: [id number] ATTENDING PHYSICIAN: Mavis Santiago MD DATE OF [...] Range Status (more content not included)... Normal [facility] Ferritin SerPl-mCncon 2022 Ferritin [Mass/Vol] 104.0 ng/mL Normal 14.7-205.[address] [facility] Comment on above: Order Comment: Speci men Type: BLOOD SPECIMEN Ordering Facility: [facility] Address: [address] [place], [place] [address] Performed By: #### 5 0190-8, 2276-4 #### [facility] CLIA [id number] [address] [facility] [place] [address] [place] Iron and Iron binding capaci ty panelon 07-27-2022 Iron [Mass/Vol] 43 ug/dL Normal 41-186 [facility] Comment on above: Order Comment: Speci men Type: BLOOD SPECIMEN Ordering Facility: [facility] Address: [address] [place] [address] Performed By: #### 5 0190-8, 2276-4 #### [facility] CLIA [id number] [address] [place] [address] [place] Iron binding capacity [Mass/Vol] 265 ug/dL Normal 232-386 [facility] Comment on above: Order Comment: Speci men Type: BLOOD SPECIMEN Ordering Facility: [facility] Address: [address] [place] [address] Performed By: #### 5 0190-8, 2276-4 #### [facility] CLIA [id number] [address] [place] [address] [place] Iron/TIBC [Molar ratio] 16.2 % Normal 15.0-57.0 [facility] Comment on above: Order Comment: Speci men Type: BLOOD SPECIMEN Ordering Facility: [facility] Address: [address] [place] [address] Performed By: #### 5 0190-8, 2276-4 #### [facility] CLIA [id number] [address] [place] [address] [place] Retics #on 07-27-2022 Reticulocytes (Bld) [#/Vol] 0.80398 10*3/uL Normal 0.018-0.100 [facility] Comment on above: Order Comment: Speci men Type: BLOOD SPECIMEN Ordering Facility: [facility] Address: [address] [place] [address] Performed By: #### 1 4196-0, 09722-7 #### [facility] CLIA [id number] [address] [place] [address] Reticulocytes (Bld) [#/Vol]o n 07-27-2022 Reticulocytes/100 RBC (Bld) 0.9 % Normal 0.4-2.0 [facility] Comment on above: Order Comment: Speci men Type: BLOOD SPECIMEN Ordering Facility: [facility] Address: [place] [address] Performed By: #### 1 4196-0, 56049-9 #### [facility] CLIA [id number] [address] [place] [address] COVID-19 SOFIAOrdered By: Brandy Diaz on 07-22-2022 SARS-CoV+SARS-CoV-2 (COVID-19) Ag IA.rapid Ql (Resp) Negative Negative [facility] Comment on above: This is a duplicate Heidi SARS Antigen (DB) result to be used for statistical tracking purpose only. No Panel InformationOrdered By: Jeyson Diaz on 07-22-2022 SARS Antigen (LFIA) [facility] CNSWon 06-02-2022 [facility] Social Work (HEMASA) TANGELA TRINIDAD ([id number]) 1940 F Date Time Provider Department 06/02/22 MARCIA RAMIRES During your visit today, we recorded the following information about you: MONY Mart 06/02/2022 3:17 PM Signed Patient appears on the First Time Treatment List for a non-oncology treatment. No psychosocial assessment is indicated. HANNAH Mart Allergies As of Date: 06/02/2022 Noted Allergy Reaction CEPHALOSPORINS 10/23/2014 16 - Unknown MACRODANTIN (NITROFURANTOIN MACRO*10/11/2018 2 - Rash 9 - Itching PENICILLINS 11/15/2014 4 - Hives POVIDONE-IODINE 06/21/2019 16 - Unknown TGZPORA-JCV-HOL REDUCTASE INHIBIT*01/05/2018 16 - Unknown SULFA (SULFONAMIDE [...] 112 mcg tablet 0.125 mcg. - CA/D3/MAG OX/ZINC/CURRICULUM DESIGNER/MEREDITH/BOR (CALCIUM 600+D3 PLUS ORAL) Take 1,200 mg by mouth once daily. - atenolol (TENORMIN) 25 mg tablet Take 1 tablet by mouth once daily. Problem List As Of Date 06/02/2022 Noted Resolved Anemia [D64.9] 11/15/2014 Iron deficiency [E61.1] 11/15/2014 Encounter Status:Closed by MARCIA RAMIRES on 06/02/22 [facility] Shannan 05-25[facility]2022 [facility] (HE[facility]) TANGELA TRINIDAD ([id number]) 1940 F Date Time Provider Department 05/25/22 FINANCIAL NAVIGATOR DAMON BREWER During your visit today, we recorded the following information about you: Mohit Lo [facility] 05/25/2022 3:35 PM Signed 1st report of treatment-non oncology regimen (Monoferric) Patient holds Medicare coverage. No FA available at this time. Allergies As of Date: 05/25/2022 Noted Allergy Reaction CEPHALOSPORINS 10/23/2014 16 - Unknown MACRODANTIN (NITROFURANTOIN MACRO*10/11/2018 2 - Rash 9 - Itching PENICILLINS 11/15/2014 4 - Hives POVIDONE-IODINE 06/21/2019 16 - Unknown SSRYPYZ-TOS-FOZ REDUCTASE INHIBIT*01/05/2018 16 - Unknown SULFA (SULFONAMIDE ANTIBIOTICS) 11/15/2014 4 - Hives VANCOMYCIN 10/11/2018 2 - Rash 9 - Itching Date Reviewed: 05/18/2022 Reviewed by: Lyla Beasley - Fully Assessed Reason for Visit: Benefits Investigation [2428] Prescriptions as of 05/25/2022 - diclofenac, EC, [...] 112 mcg tablet 0.125 mcg. - CA/D3/MAG OX/ZINC/CURRICULUM DESIGNER/MEREDITH/BOR (CALCIUM 600+D3 PLUS ORAL) Take 1,200 mg [...] Iron deficiency [E61.1] 11/15/2014 Encounter Status:Closed by NAUN JIMENES, MOHIT Funes on 05/25/22 Normal [facility] CNOVSPon 05-18-2022 CNOVSP Visit (SP) Office ([place]) TANGELA TRINIDAD ([id number]) 1940 F Date Time Provider Department 05/18/22 4:00 PM MAVIS SANTIAGO During your visit today, we recorded the following information about you: Temperature Pulse Respiration Blood pressure 98.1 degrees 78/minute 16/minute 122/78 Weight 68 kg Mavis Santiago MD 05/18/2022 4:08 PM Signed PATIENT NAME: Tangela Trinidad CLINIC NO.: [id number] ATTENDING PHYSICIAN: Mavis Santiago MD DATE OF [...] Range Status (more content not included)... Normal [facility] IMMUNOFIXATION(ELISE),PROTEIN ELEC(PE),FREon 05-06-2022 Albumin [Mass/Vol] 2.9 g/dL Normal 2.9-4.4 The [facility] Comment on above: Performed By: #### I FEPEFL #### [facility] [address], [place] [address] Dr. Yayo Gregg Albumin/Globulin [Mass ratio] 1.2 {ratio} Normal 0.7-1.7 [facility] Comment on above: Performed By: #### I FEPEFL #### [facility] [address] [address] [address] Yayo Gregg Bcvqv-9-Cqfplqkp 0.3 g/dL Normal 0.0-0.4 The [facility] Comment on above: Performed By: #### I FEPEFL #### [facility] [address] [place] [address] Dr. Yayo Gregg Hnmns-1-Tqjdoidq 0.7 g/dL Normal 0.4-1.0 The [facility] Comment on above: Performed By: #### I FEPEFL #### [facility] [address] [place] [address] Dr. Yayo Gregg Beta Globulin 0.9 g/dL Normal 0.7-1.3 The [facility] Comment on above: Performed By: #### I FEPEFL #### [facility] [address] [place] [address] Dr. Yayo Gregg Free [place] Lt Chains,S 39.9 mg/L Critically high 3.3-19.4 The [facility] Comment on above: Performed By: #### I FEPEFL #### [facility] [address] [place] [address] Dr. Yayo Gregg Free Lambda Lt Chains,S 22.7 mg/L Normal 5.7-26.3 [facility] Comment on above: Performed By: #### I FEPEFL #### [facility] [address] [place] [address] Dr. Yayo Gregg Gamma Globulin 0.6 g/dL Normal 0.4-1.8 The [facility] Comment on above: Performed By: #### I FEPEFL #### [facility] [address] [place] [address] Dr. Yayo Gregg Globulin (S) [Mass/Vol] 2.6 g/dL Normal 2.2-3.9 [facility] Comment on above: Performed By: #### I FEPEFL #### [facility] [address] [place] [address] Dr. Yayo Gregg Immunofixation Result, Serum Comment Normal [facility] Comment on above: Result Comment: No m onoclonality detected. Performed By: #### I FEPEFL #### [facility] [address] [address] [address] Yayo Gregg Immunoglobulin A, Qn, Serum 81 mg/dL Normal 64-422 [facility] Comment on above: Performed By: #### I FEPEFL #### [facility] [address] [address] [address] Yayo Gregg Immunoglobulin G, Qn, Serum 547 mg/dL Critically low 586-1602 [facility] Comment on above: Performed By: #### I FEPEFL #### [facility] [address] [address] [address] Yayo Gregg Immunoglobulin M, Qn, Serum 92 mg/dL Normal 26-217 [facility] Comment on above: Performed By: #### I FEPEFL #### [facility] [address] [place] [address] Dr. Yayo Gregg [place]/Lambda Ratio, S 1.76 Critically high 0.26-1.65 [facility] Comment on above: Performed By: #### I FEPEFL #### [facility] [address] [place] [address] Dr. Yayo Gregg M-Johan Not Observed Normal Not Observed [facility] Comment on above: Performed By: #### I FEPEFL #### [facility] [address] [place] [address] Dr. Yayo Gregg PDF . Normal [facility] Comment on above: Performed By: #### I FEPEFL #### [facility] [address] [place] [address] Dr. Yayo Gregg Please note: Comment Normal [facility] Comment on above: Result Comment: Prot ein electrophoresis scan will follow via computer, mail, or frame runner delivery. Performed By: #### I FEPEFL #### [facility] [address] [place] [address] Dr. Yayo Gregg Protein [Mass/Vol] 5.5 g/dL Critically low 6.0-8.5 Th [facility] Comment on above: Performed By: #### I FEPEFL #### [facility] [address] [place] [address] Dr. Yayo Gregg IMMUNOGLOBULINS IGA/IGM/IGG QUANTITATIVEon 05-05-2022 Immunoglobulin A, Qn, Serum 83 mg/dL Normal 64-422 [facility] Comment on above: Performed By: #### I MMUNGL #### [facility] [address] [place] [address] Dr. Yayo Gregg Immunoglobulin G, Qn, Serum 559 mg/dL Critically low 586-1602 [facility] Comment on above: Performed By: #### I MMUNGL #### [facility] [address] [place] [address] Dr. Yayo Gregg Immunoglobulin M, Qn, Serum 93 mg/dL Normal 26-217 [facility] Comment on above: Performed By: #### I MMUNGL #### [facility] [address] [place] [address] Dr. Yayo Gregg CBC AUTO DIFFon 05-04-2022 BASO # 0.1 103/ul Normal 0.0-0.1 [facility] Comment on above: Performed By: #### I MMUNGL #### [facility] [address] [place] [address] Dr. Yayo Gregg Basophils/100 WBC (Bld) 0.9 % Normal 0.2-2.0 [facility] Comment on above: Performed By: #### I MMUNGL #### [facility] [address] [place] [address] Dr. Yayo Gregg EO # 0.7 103/ul Normal 0.0-0.7 [facility] Comment on above: Performed By: #### I MMUNGL #### [facility] [address] [place] [address] Dr. Yayo Gregg Eosinophils/100 WBC (Bld) 6.7 % Normal 0.9-7.0 [facility] Comment on above: Performed By: #### I MMUNGL #### [facility] [address] [place] [address] Dr. Yayo Gregg Erythrocyte distribution width (RBC) [Ratio] 15.6 % Critically high 11.0-15.0 [facility] Comment on above: Performed By: #### I MMUNGL #### [facility] [address] [place] [address] Dr. Yayo Gregg Hematocrit (Bld) [Volume fraction] 31.3 % Critically low 36.0-48.0 [facility] Comment on above: Performed By: #### I MMUNGL #### [facility] [address] [place] [address] Dr. Yayo Gregg Hemoglobin (Bld) [Mass/Vol] 10.0 g/dL Critically low 12.0-16.0 [facility] Comment on above: Performed By: #### I MMUNGL #### [facility] [address] [place] [address] Dr. Yayo Gregg IG # 0.04 10e3/ul Critically high 0.00-0.03 [facility] Comment on above: Performed By: #### I MMUNGL #### [facility] [address] [place] [address] Dr. Yayo Gregg IG % 0.4 % Normal 0.0-0.5 [facility] Comment on above: Performed By: #### I MMUNGL #### [facility] [address] [place] [address] Dr. Yayo Gregg LYMPH # 2.9 103/ul Normal 1.2-3.8 [facility] Comment on above: Performed By: #### I MMUNGL #### [facility] [address] [place] [address] Dr. Yayo Gregg Lymphocytes/100 WBC (Bld) 29.6 % Normal 20.5-60.0 [facility] Comment on above: Performed By: #### I MMUNGL #### [facility] [address] [place] [address] Dr. Yayo Gregg MANUAL DIFF REQ NO Normal [facility] Comment on above: Performed By: #### I MMUNGL #### [facility] [address] [place] [address] Dr. Yayo Gregg MCH (RBC) [Entitic mass] 25.7 pg Critically low 26.7-34.0 [facility] Comment on above: Performed By: #### I MMUNGL #### [facility] [address] [place] [address] Dr. Yayo Gregg MCHC (RBC) [Mass/Vol] 31.9 g/dL Normal 29.9-35.2 [facility] Comment on above: Performed By: #### I MMUNGL #### [facility] [address] [place] [address] Dr. Yayo Gregg MCV (RBC) [Entitic vol] 80.5 fL Critically low 81.0-99.0 [facility] Comment on above: Performed By: #### I MMUNGL #### [facility] [address] [place] [address] Dr. Yayo Gregg MONO # 1.4 103/ul Critically high 0.3-0.8 [facility] Comment on above: Performed By: #### I MMUNGL #### [facility] [address] [place] [address] Dr. Yayo Gregg Monocytes/100 WBC (Bld) 14.5 % Critically high 1.7-12.0 [facility] Comment on above: Performed By: #### I MMUNGL #### [facility] [address] [place] [address] Dr. Yayo Gregg NEUT # 4.7 103/ul Normal 1.4-6.5 [facility] Comment on above: Performed By: #### I MMUNGL #### [facility] [address] [place] [address] Dr. Yayo Gregg Neutrophils/100 WBC (Bld) 47.9 % Normal 43.0-75.0 [facility] Comment on above: Performed By: #### I MMUNGL #### [facility] [address] [place] [address] Dr. Yayo Gregg Platelet mean volume (Bld) [Entitic vol] 9.5 fL Normal 9.5-13.5 [facility] Comment on above: Performed By: #### I MMUNGL #### [facility] [address] [place] [address] Dr. Yayo Gregg PLT 457 103/ul Critically high 150-450 [facility] Comment on above: Performed By: #### I MMUNGL #### [facility] [address] [place] [address] Dr. Yayo Gregg RBC 3.89 106/ul Critically low 4.20-5.40 [facility] Comment on above: Performed By: #### I MMUNGL #### [facility] [address] [place] [address] Dr. Yayo Gregg WBC 9.8 103/ul Normal 4.0-11.0 [facility] Comment on above: Performed By: #### I MMUNGL #### [facility] [address] [place] [address] Dr. Yayo Gregg FERRITINon 05-04-2022 Ferritin [Mass/Vol] 20.0 ng/mL Normal 8.0-252.0 [facility] Comment on above: Performed By: #### F ERR, FETIBC #### [facility] [address] [place] [address] Dr. Yayo Gregg IRON AND TIBCon 05-04-2022 % SATURATION 5.7 % Normal [facility] Comment on above: Performed By: #### F ERR, FETIBC #### [facility] [address] [place] [address] Dr. Yayo Gregg Iron [Mass/Vol] 18.0 ug/dL Critically low 50.0-170.0 The [facility] Comment on above: Performed By: #### F ERR, FETIBC #### [facility] [address] [place] [address] Dr. Yayo Gregg TIBC DIRECT 318.0 ug/dL Normal 250.0-450.0 [facility] Comment on above: Performed By: #### F ERR, FETIBC #### [facility] [address] [place] [address] Dr. Yayo Gregg PROF CHEM 8 (BAS METB)on Anion gap [Moles/Vol] 11.7 mmol/L Normal [facility] Comment on above: Performed By: #### I MMUNGL #### [facility] [address] [address] [address] Yayo Gregg Calcium [Mass/Vol] 8.1 mg/dL Critically low 8.5-10.1 Th [facility] Comment on above: Performed By: #### I MMUNGL #### [facility] [address] [address] [address] Yayo Gregg Chloride [Moles/Vol] 100 mmol/L Normal 98-107 [facility] Comment on above: Performed By: #### I MMUNGL #### [facility] [address] [address] [address] Yayo Gregg CO2 [Moles/Vol] 25.7 mmol/L Normal 21.0-32.0 [facility] [place] [facility] Comment on above: Performed By: #### I MMUNGL #### [facility] [address] [address] [address] Yayo Gregg Creatinine [Mass/Vol] 1.06 mg/dL Critically high 0.55-1.02 [facility] Comment on above: Performed By: #### I MMUNGL #### [facility] [address] [address] [address] Yayo Gregg EGFR-AF ARGENTINE =60 Normal >=60 [facility] [place] [facility] Comment on above: Performed By: #### I MMUNGL #### [facility] [address] [address] [address] Yayo Gregg EGFR-NON AF ARGENTINE 49 mL/min/1.73m2 Critically low >=60 [facility] Comment on above: Performed By: #### I MMUNGL #### [facility] [address] [address] [address] Yayo Gregg Glucose [Mass/Vol] 121 mg/dL Critically high 74-106 [facility] Comment on above: Performed By: #### I MMUNGL #### [facility] [address] [address] [address] Yayo Gregg Potassium [Moles/Vol] 4.4 mmol/L Normal 3.5-5.1 [facility] Comment on above: Performed By: #### I MMUNGL #### [facility] [address] [place] [address] Dr. Yayo Gregg Sodium [Moles/Vol] 133 mmol/L Critically low 136-145 Th [facility] Comment on above: Performed By: #### I MMUNGL #### [facility] [address] [place] [address] Dr. Yayo Gregg Urea nitrogen [Mass/Vol] 16.0 mg/dL Normal 7.0-18.0 [facility] Comment on above: Performed By: #### I MMUNGL #### [facility] [address] [place] [address] Dr. Yayo Gregg Urea nitrogen/Creatinine [Mass ratio] 15.1 mg/mg Normal [facility] Comment on above: Performed By: #### I MMUNGL #### [facility] [address] [place] [address] Dr. Yayo Gregg T PROTEIN SERUMon 05-04-2022 Protein [Mass/Vol] 6.0 g/dL Critically low 6.4-8.2 Th [facility] Comment on above: Performed By: #### I MMUNGL #### [facility] [address] [place] [address] Dr. Yayo Gregg TSHon 05-04-2022 TSH 1.715 uIU/mL Normal 0.358-3.740 [facility] Comment on above: Performed By: #### I MMUNGL #### [facility] [address] [place] [address] Dr. Yayo Gregg CBC AUTO DIFFon 03-26-2022 BASO # 0.1 103/ul Normal 0.0-0.1 [facility] Comment on above: Performed By: #### C BC #### [facility] [address] [place] [address] Dr. Yayo Gregg Basophils/100 WBC (Bld) 1.0 % Normal 0.2-2.0 [facility] Comment on above: Performed By: #### C BC #### [facility] [address] [place] [address] Dr. Yayo Gregg EO # 0.8 103/ul Critically high 0.0-0.7 [facility] Comment on above: Performed By: #### C BC #### [facility] [address] [address] [address] Yayo Gregg Eosinophils/100 WBC (Bld) 7.6 % Critically high 0.9-7.0 [facility] Comment on above: Performed By: #### C BC #### [facility] [address] [place] [address] Dr. Yayo Gregg Erythrocyte distribution width (RBC) [Ratio] 15.1 % Critically high 11.0-15.0 [facility] Comment on above: Performed By: #### C BC #### [facility] [address] [place] [address] Dr. Yayo Gregg Hematocrit (Bld) [Volume fraction] 32.0 % Critically low 36.0-48.0 [facility] Comment on above: Performed By: #### C BC #### [facility] [address] [place] [address] Dr. Yayo Gregg Hemoglobin (Bld) [Mass/Vol] 10.4 g/dL Critically low 12.0-16.0 [facility] Comment on above: Performed By: #### C BC #### [facility] [address] [place] [address] Dr. Yayo Gregg IG # 0.05 10e3/ul Critically high 0.00-0.03 [facility] Comment on above: Performed By: #### C BC #### [facility] [address] [place] [address] Dr. Yayo Gregg IG % 0.5 % Normal 0.0-0.5 [facility] Comment on above: Performed By: #### C BC #### [facility] [address] [place] [address] Dr. Yayo Gregg LYMPH # 2.9 103/ul Normal 1.2-3.8 [facility] Comment on above: Performed By: #### C BC #### [facility] [address] [place] [address] Dr. Yayo Gregg Lymphocytes/100 WBC (Bld) 27.7 % Normal 20.5-60.0 [facility] Comment on above: Performed By: #### C BC #### [facility] [address] [place] [address] Dr. Yayo Gregg MANUAL DIFF REQ NO Normal [facility] Comment on above: Performed By: #### C BC #### [facility] [address] [place] [address] Dr. Yayo Gregg MCH (RBC) [Entitic mass] 26.5 pg Critically low 26.7-34.0 [facility] Comment on above: Performed By: #### C BC #### [facility] [address] [place] [address] Dr. Yayo Gregg MCHC (RBC) [Mass/Vol] 32.5 g/dL Normal 29.9-35.2 [facility] Comment on above: Performed By: #### C BC #### [facility] [address] [place] [address] Dr. Yayo Gregg MCV (RBC) [Entitic vol] 81.4 fL Normal 81.0-99.0 [facility] Comment on above: Performed By: #### C BC #### [facility] [address] [place] [address] Dr. Yayo Gregg MONO # 1.3 103/ul Critically high 0.3-0.8 [facility] Comment on above: Performed By: #### C BC #### [facility] [address] [place] [address] Dr. Yayo Gregg Monocytes/100 WBC (Bld) 12.5 % Critically high 1.7-12.0 [facility] Comment on above: Performed By: #### C BC #### [facility] [address] [place] [address] Dr. Yayo Gregg NEUT # 5.2 103/ul Normal 1.4-6.5 [facility] Comment on above: Performed By: #### C BC #### [facility] [address] [place] [address] Dr. Yayo Gregg Neutrophils/100 WBC (Bld) 50.7 % Normal 43.0-75.0 [facility] Comment on above: Performed By: #### C BC #### [facility] [address] [place] [address] Dr. Yayo Gregg Platelet mean volume (Bld) [Entitic vol] 9.6 fL Normal 9.5-13.5 [facility] Comment on above: Performed By: #### C BC #### [facility] [address] [place] [address] Dr. Yayo Gregg PLT 409 103/ul Normal 150-450 [facility] Comment on above: Performed By: #### C BC #### [facility] [address] [place] [address] Dr. Yayo Gregg RBC 3.93 106/ul Critically low 4.20-5.40 [facility] Comment on above: Performed By: #### C BC #### [facility] [address] [place] [address] Dr. Yayo Gregg WBC 10.3 103/ul Normal 4.0-11.0 [facility] Comment on above: Performed By: #### C BC #### [facility] [address] [place] [address] Dr. Yayo Gregg FERRITINon 03-26-2022 Ferritin [Mass/Vol] 22.0 ng/mL Normal 8.0-252.0 [facility] Comment on above: Performed By: #### I MMUNGL #### [facility] [address] [place] [address] Dr. Yayo Gregg CBC AUTO DIFFon 02-09-2022 BASO # 0.1 103/ul Normal 0.0-0.1 [facility] Comment on above: Performed By: #### C BC #### [facility] [address] [place] [address] Dr. Yayo Gregg Basophils/100 WBC (Bld) 0.7 % Normal 0.2-2.0 [facility] Comment on above: Performed By: #### C BC #### [facility] [address] [place] [address] Dr. Yayo Gregg EO # 0.9 103/ul Critically high 0.0-0.7 [facility] Comment on above: Performed By: #### C BC #### [facility] [address] [address] [address] Yayo Gregg Eosinophils/100 WBC (Bld) 7.5 % Critically high 0.9-7.0 [facility] Comment on above: Performed By: #### C BC #### [facility] [address] [address] [address] Yayo Gregg Erythrocyte distribution width (RBC) [Ratio] 15.1 % Critically high 11.0-15.0 [facility] Comment on above: Performed By: #### C BC #### [facility] [address] [place] [address] Dr. Yayo Gregg Hematocrit (Bld) [Volume fraction] 32.5 % Critically low 36.0-48.0 [facility] Comment on above: Performed By: #### C BC #### [facility] [address] [place] [address] Dr. Yayo Gregg Hemoglobin (Bld) [Mass/Vol] 10.9 g/dL Critically low 12.0-16.0 [facility] Comment on above: Performed By: #### C BC #### [facility] [address] [place] [address] Dr. Yayo Gregg IG # 0.16 10e3/ul Critically high 0.00-0.03 [facility] Comment on above: Performed By: #### C BC #### [facility] [address] [place] [address] Dr. Yayo Gregg IG % 1.3 % Critically high 0.0-0.5 [facility] Comment on above: Performed By: #### C BC #### [facility] [address] [place] [address] Dr. Yayo Gregg LYMPH # 2.9 103/ul Normal 1.2-3.8 [facility] Comment on above: Performed By: #### C BC #### [facility] [address] [place] [address] Dr. Yayo Gregg Lymphocytes/100 WBC (Bld) 24.0 % Normal 20.5-60.0 [facility] Comment on above: Performed By: #### C BC #### [facility] [address] [place] [address] Dr. Yayo Gregg MANUAL DIFF REQ NO Normal [facility] Comment on above: Performed By: #### C BC #### [facility] [address] [place] [address] Dr. Yayo Gregg MCH (RBC) [Entitic mass] 27.2 pg Normal 26.7-34.0 [facility] Comment on above: Performed By: #### C BC #### [facility] [address] [place] [address] Dr. Yayo Gregg MCHC (RBC) [Mass/Vol] 33.5 g/dL Normal 29.9-35.2 [facility] Comment on above: Performed By: #### C BC #### [facility] [address] [place] [address] Dr. Yayo Gregg MCV (RBC) [Entitic vol] 81.0 fL Normal 81.0-99.0 [facility] Comment on above: Performed By: #### C BC #### [facility] [address] [place] [address] Dr. Yayo Gregg MONO # 1.6 103/ul Critically high 0.3-0.8 [facility] Comment on above: Performed By: #### C BC #### [facility] [address] [place] [address] Dr. Yayo Gregg Monocytes/100 WBC (Bld) 13.4 % Critically high 1.7-12.0 [facility] Comment on above: Performed By: #### C BC #### [facility] [address] [place] [address] Dr. Yayo Gregg NEUT # 6.3 103/ul Normal 1.4-6.5 [facility] Comment on above: Performed By: #### C BC #### [facility] [address] [place] [address] Dr. Yayo Gregg Neutrophils/100 WBC (Bld) 53.1 % Normal 43.0-75.0 [facility] Comment on above: Performed By: #### C BC #### [facility] [address] [place] [address] Dr. Yaoy Gregg Platelet mean volume (Bld) [Entitic vol] 9.4 fL Critically low 9.5-13.5 [facility] Comment on above: Performed By: #### C BC #### [facility] [address] [place] [address] Dr. Yayo Gregg PLT 426 103/ul Normal 150-450 [facility] Comment on above: Performed By: #### C BC #### [facility] [address] [place] [address] Dr. Yayo Gregg RBC 4.01 106/ul Critically low 4.20-5.40 [facility] Comment on above: Performed By: #### C BC #### [facility] [address] [place] [address] Dr. Yayo Gregg WBC 11.9 103/ul Critically high 4.0-11.0 [facility] Comment on above: Performed By: #### C BC #### [facility] [address] [place] [address] Dr. Yayo Gregg FERRITINon 02-09-2022 Ferritin [Mass/Vol] 36.0 ng/mL Normal 8.0-252.0 [facility] Comment on above: Performed By: #### V ITB12, FETIBC, FERR #### [facility] [address] [place] [address] Dr. Yayo Gregg IRON AND TIBCon 02-09-2022 % SATURATION 5.2 % Normal [facility] Comment on above: Performed By: #### V ITB12, FETIBC, FERR #### [facility] [address] [place] [address] Dr. Yayo Gregg Iron [Mass/Vol] 16.0 ug/dL Critically low 50.0-170.0 [facility] Comment on above: Performed By: #### V ITB12, FETIBC, FERR #### [facility] [address] [place] [address] Dr. Yayo Gregg TIBC DIRECT 305.0 ug/dL Normal 250.0-450.0 [facility] Comment on above: Performed By: #### V ITB12, FETIBC, FERR #### [facility] [address] [place] [address] Dr. Yayo Gregg VITAMIN B12on 02-09-2022 Cobalamin (Vitamin B12) [Mass/Vol] 819.0 pg/mL Normal 193.0-986.0 [facility] Comment on above: Performed By: #### V ITB12, FETIBC, FERR #### [facility] [address] [place] [address] Dr. Yayo Gregg BNPon 01-27-2022 Natriuretic peptide B (Bld) [Mass/Vol] 270.0 pg/mL Normal <=1,800.0 [facility] Comment on above: Performed By: #### I MMUNGL #### [facility] [address] [place] [address] Dr. Yayo Gregg CARDIAC TARAN ADMITon 022 CK [Catalytic activity/Vol] 143 U/L Normal 26-192 [facility] Comment on above: Performed By: #### I MMUNGL #### [facility] [address] [place] [address] Dr. Yayo Gregg CK.MB [Mass/Vol] 2.66 ng/mL Normal <=3.60 [facility] Comment on above: Performed By: #### I MMUNGL #### [facility] [address] [place] [address] Dr. Yayo Gregg HSTROP 4.0 pg/mL Normal 4.0-51.3 [facility] Comment on above: Result Comment: CUT- OFF POINTS HAVE BEEN ESTABLISHED BASED ON THE FOURTH UNIVERSAL DEFINITIONS OF MYOCARDIAL INFARCTION. THE UPPER REFERENCE LIMIT (URL) OF TROPONIN, DEFINED THE 99TH PERCENTILE OF cTnI DISTRIBUTION IN A REFERENCE POPULATION, HAS BEEN CONFIRMED THE DECISION THRESHOLD FOR AR DIAGNOSIS. Performed By: #### I MMUNGL #### [facility] [address] [address] [address] Yayo Gregg CARA 113 ng/mL Critically high 9-82 [facility] Comment on above: Performed By: #### I MMUNGL #### [facility] [address] [place] [address] Dr. Yayo Gregg CBC AUTO DIFFon 01-27-2022 BASO # 0.1 103/ul Normal 0.0-0.1 [facility] Comment on above: Performed By: #### C BC #### [facility] [address] [place] [address] Dr. Yayo Gregg Basophils/100 WBC (Bld) 0.7 % Normal 0.2-2.0 [facility] Comment on above: Performed By: #### C BC #### [facility] [address] [place] [address] Dr. Yayo Gregg EO # 1.1 103/ul Critically high 0.0-0.7 [facility] Comment on above: Performed By: #### C BC #### [facility] [address] [place] [address] Dr. Yayo Gregg Eosinophils/100 WBC (Bld) 7.3 % Critically high 0.9-7.0 [facility] Comment on above: Performed By: #### C BC #### [facility] [address] [place] [address] Dr. Yayo Gregg Erythrocyte distribution width (RBC) [Ratio] 13.8 % Normal 11.0-15.0 [facility] Comment on above: Performed By: #### C BC #### [facility] [address] [place] [address] Dr. Yayo Gregg Hematocrit (Bld) [Volume fraction] 34.4 % Critically low 36.0-48.0 [facility] Comment on above: Performed By: #### C BC #### [facility] [address] [place] [address] Dr. Yayo Gregg Hemoglobin (Bld) [Mass/Vol] 11.3 g/dL Critically low 12.0-16.0 [facility] Comment on above: Performed By: #### C BC #### [facility] [address] [address] [address] Yayo Gregg IG # 0.09 10e3/ul Critically high 0.00-0.03 [facility] Comment on above: Performed By: #### C BC #### [facility] [address] [address] [address] Yayo Gregg IG % 0.6 % Critically high 0.0-0.5 [facility] Comment on above: Performed By: #### C BC #### [facility] [address] [place] [address] Dr. Yayo Gregg LYMPH # 2.5 103/ul Normal 1.2-3.8 [facility] Comment on above: Performed By: #### C BC #### [facility] [address] [place] [address] Dr. Yayo Gregg Lymphocytes/100 WBC (Bld) 16.6 % Critically low 20.5-60.0 [facility] Comment on above: Performed By: #### C BC #### [facility] [address] [place] [address] Dr. Yayo Gregg MANUAL DIFF REQ NO Normal [facility] Comment on above: Performed By: #### C BC #### [facility] [address] [place] [address] Dr. Yayo Gregg MCH (RBC) [Entitic mass] 26.7 pg Normal 26.7-34.0 [facility] Comment on above: Performed By: #### C BC #### [facility] [address] [place] [address] Dr. Yayo Gregg MCHC (RBC) [Mass/Vol] 32.8 g/dL Normal 29.9-35.2 [facility] Comment on above: Performed By: #### C BC #### [facility] [address] [place] [address] Dr. Yayo Gregg MCV (RBC) [Entitic vol] 81.1 fL Normal 81.0-99.0 [facility] Comment on above: Performed By: #### C BC #### [facility] [address] [address] [address] Yayo Gregg MONO # 2.1 103/ul Critically high 0.3-0.8 [facility] Comment on above: Performed By: #### C BC #### [facility] [address] [place] [address] Dr. Yayo Gregg Monocytes/100 WBC (Bld) 14.0 % Critically high 1.7-12.0 [facility] Comment on above: Performed By: #### C BC #### [facility] [address] [place] [address] Dr. Yayo Gregg NEUT # 9.1 103/ul Critically high 1.4-6.5 [facility] Comment on above: Performed By: #### C BC #### [facility] [address] [place] [address] Dr. Yayo Gregg Neutrophils/100 WBC (Bld) 60.8 % Normal 43.0-75.0 [facility] Comment on above: Performed By: #### C BC #### [facility] [address] [place] [address] Dr. Yayo Gregg Platelet mean volume (Bld) [Entitic vol] 10.2 fL Normal 9.5-13.5 [facility] Comment on above: Performed By: #### C BC #### [facility] [address] [place] [address] Dr. Yayo Gregg PLT 455 103/ul Critically high 150-450 [facility] Comment on above: Performed By: #### C BC #### [facility] [address] [place] [address] Dr. Yayo Gregg RBC 4.24 106/ul Normal 4.20-5.40 [facility] Comment on above: Performed By: #### C BC #### [facility] [address] [place] [address] Dr. Yayo Gregg WBC 14.9 103/ul Critically high 4.0-11.0 [facility] Comment on above: Performed By: #### C BC #### [facility] [address] [place] [address] Dr. Yayo Gregg Covid-19 PCR (CVDTB)on 01-09 SARS-CoV-2 (COVID-19) RNA CHANTALE+probe Ql (Unsp spec) Not detected Normal NOT DETECTED [facility] Comment on above: Result Comment: When diagnostic [...] for this test is supported by the [place] of [employer] and Human Service's declaration that [...] used). Performed By: #### C BC #### [facility] [address] [place] [address] Dr. Yayo Gregg PROF 14(COMP METB)on 022 Albumin [Mass/Vol] 3.0 g/dL Critically low 3.4-5.0 [facility] Comment on above: Performed By: #### I MMUNGL #### [facility] [address] [place] [address] Dr. Yayo Gregg Albumin/Globulin [Mass ratio] 0.9 {ratio} Normal [facility] Comment on above: Performed By: #### I MMUNGL #### [facility] [address] [place] [address] Dr. Yayo Gregg ALP [Catalytic activity/Vol] 95 U/L Normal 46-116 [facility] Comment on above: Performed By: #### I MMUNGL #### [facility] [address] [place] [address] Dr. Yayo Gregg ALT [Catalytic activity/Vol] 28 U/L Normal 14-59 [facility] Comment on above: Performed By: #### I MMUNGL #### [facility] [address] [address] [address] Yayo Gregg Anion gap [Moles/Vol] 11.9 mmol/L Normal [facility] Comment on above: Performed By: #### I MMUNGL #### [facility] [address] [address] [address] Yayo Gregg AST [Catalytic activity/Vol] 24 U/L Normal 15-37 [facility] Comment on above: Performed By: #### I MMUNGL #### [facility] [address] [address] [address] Yayo Gregg Bilirubin [Mass/Vol] 0.3 mg/dL Normal 0.2-1.0 [facility] Comment on above: Performed By: #### I MMUNGL #### [facility] [address] [address] [address] Yayo Gregg Calcium [Mass/Vol] 8.8 mg/dL Normal 8.5-10.1 [facility] Comment on above: Performed By: #### I MMUNGL #### [facility] [address] [address] [address] Yayo Gregg Chloride [Moles/Vol] 98 mmol/L Normal 98-107 [facility] Comment on above: Performed By: #### I MMUNGL #### [facility] [address] [address] [address] Yayo Gregg CO2 [Moles/Vol] 24.6 mmol/L Normal 21.0-32.0 [facility] Comment on above: Performed By: #### I MMUNGL #### [facility] [address] [address] [address] Yayo Gregg Creatinine [Mass/Vol] 0.91 mg/dL Normal 0.55-1.02 [facility] Comment on above: Performed By: #### I MMUNGL #### [facility] [address] [address] [address] Yayo Gregg EGFR-AF ARGENTINE >60 Normal >=60 [facility] Comment on above: Performed By: #### I MMUNGL #### [facility] [address] [address] [address] Yayo Gregg EGFR-NON AF ARGENTINE 59 mL/min/1.73m2 Critically low >=60 [facility] Comment on above: Performed By: #### I MMUNGL #### [facility] [address] [address] [address] Yayo Gregg Globulin (S) [Mass/Vol] 3.3 g/dL Normal [facility] Comment on above: Performed By: #### I MMUNGL #### [facility] [address] [address] [address] Yayo Gregg Glucose [Mass/Vol] 95 mg/dL Normal 74-106 [facility] Comment on above: Performed By: #### I MMUNGL #### [facility] [address] [address] [address] Yayo Gregg Potassium [Moles/Vol] 4.5 mmol/L Normal 3.5-5.1 [facility] Comment on above: Performed By: #### I MMUNGL #### [facility] [address] [address] [address] Yayo Gregg Protein [Mass/Vol] 6.3 g/dL Critically low 6.4-8.2 [facility] Comment on above: Performed By: #### I MMUNGL #### [facility] [address] [address] [address] Yayo Gregg Sodium [Moles/Vol] 130 mmol/L Critically low 136-145 [facility] Comment on above: Performed By: #### I MMUNGL #### [facility] [address] [address] [address] Yayo Gregg Urea nitrogen [Mass/Vol] 12.0 mg/dL Normal 7.0-18.0 [facility] Comment on above: Performed By: #### I MMUNGL #### [facility] [address] [address] [address] Yaoy Gregg Urea nitrogen/Creatinine [Mass ratio] 13.2 mg/mg Normal [facility] Comment on above: Performed By: #### I MMUNGL #### [facility] [address] [place] [address] Dr. Yayo Gregg PROTIMEon 01-27-2022 INR Coag (PPP) [Relative time] 0.96 {INR} Normal [facility] Comment on above: Performed By: #### I MMUNGL #### [facility] [address] [place] [address] Dr. Yayo Gregg INR GUIDELINES SEE BELOW Normal [facility] Comment on above: Result Comment: ASHLEY RED INR: 2.0 - 3.0 CONDITIONS NOT LISTED BELOW 2.5 - 3.5 FOR PROSTHETIC HEART VALVE REPLACEMENT 2.5 - 3.5 RECURRENT THROMBOSIS Performed By: #### I MMUNGL #### [facility] [address] [place] [address] Dr. Yayo Gregg PT Coag (PPP) [Time] 10.4 s Normal 9.0-11.6 [facility] Comment on above: Performed By: #### I MMUNGL #### [facility] [address] [place] [address] Dr. Yayo Gregg PTTon 01-27-2022 aPTT Coag (Bld) [Time] 31.6 s Normal 22.3-36.2 [facility] Comment on above: Performed By: #### I MMUNGL #### [facility] [address] [place] [address] Dr. Yayo Gregg TROPONIN, HIGH SENSITIVITYon 01-27-2022 HSTROP 4.7 pg/mL Normal 4.0-51.3 [facility] Comment on above: Result Comment: CUT- OFF POINTS HAVE BEEN ESTABLISHED BASED ON THE FOURTH UNIVERSAL DEFINITIONS OF MYOCARDIAL INFARCTION. THE UPPER REFERENCE LIMIT (URL) OF TROPONIN, DEFINED THE 99TH PERCENTILE OF cTnI DISTRIBUTION IN A REFERENCE POPULATION, HAS BEEN CONFIRMED THE DECISION THRESHOLD FOR AR DIAGNOSIS. Performed By: #### H STROPN #### [facility] [address] [place] [address] Dr. Yayo Gregg XR CHEST 1 Von [...] by: ANTHONY GUIDRY Date: 2022-01-27 11:47 Normal [facility] XR LSPINE 2_3 VIEWSon 2021 XR LSPINE [...] by: BENJAMIN GUNN Date: 2021-12-18 14:19 Normal [facility] BASIC METABOLIC PANEL(BMP)on 01-06-2018 Anion gap 12 mmol/L Normal 9-18 [facility] Comment on above: Performed By: #### C VAMSI SHERIFFGR ####MAIN LABCLIA:[id number] [place] [address] BUN (urea nitrogen) 17 mg/dL Normal 8-23 [facility] Comment on above: Performed By: #### Yaquelin RUFFCBCGR ####MAIN LABCLIA:[id number] [place] [address] BUN/Creatinine Ratio 22.1 mg/mg Normal [facility] Comment on above: Performed By: #### Yaquelin RUFFCBCGR ####MAIN LABCLIA:[id number] [place] [address] Calcium 7.9 mg/dL Low 8.8-10.2 [facility] Comment on above: Performed By: #### C Yaquelin SHERIFFCBCGR ####MAIN LABCLIA:[id number] [place] [address] Chloride 101 mmol/L Normal 98-107 [facility] Comment on above: Performed By: #### VAMSI RUFFGR ####MAIN LABCLIA:[id number] [place] [address] CO2 24 mmol/L Normal 22-29 [facility] Comment on above: Performed By: #### VAMSI RUFFGR ####MAIN LABCLIA:[id number] [place] [address] Creatinine 0.77 mg/dL Normal 0.50-0.90 [facility] Comment on above: Performed By: #### VAMSI RUFFGR ####MAIN LABCLIA:[id number] [place] [address] eGFR (MDRD) 77 /1.73 m2 Normal >60 mL/min [facility] Comment on above: Result Comment: Norm al RangeStage Description:1 Normal or Increased GFR >=902 Mild Decrease in GFR 60-903 Moderately Decreased GFR 30-594 Severely Decreased GFR 15-295 Kidney Failure <15 Performed By: #### MELONY RUFF ####MAIN LABCLIA:[id number] [place] [address] Glucose mass conc 89 mg/dL Normal 74-109 [facility] Comment on above: Performed By: #### VAMSI RUFFGR ####MAIN LABCLIA:[id number] [place] [address] Potassium molar conc 4.4 mmol/L Normal 3.5-5.1 [facility] Comment on above: Performed By: #### VAMSI RUFFGR ####MAIN LABCLIA:[id number] [place] [address] Sodium 133 mmol/L Low 136-145 [facility] Comment on above: Performed By: #### VAMSI RUFFGR ####MAIN LABCLIA:[id number] [place] [address] CBC/DIFF GROUPon 01-06-2018 Anisocytosis presence 1+ Normal [facility] Comment on above: Performed By: #### C SHARITA ZCBCGR ####MAIN LABCLIA:[id number] [place] [address] HYPOCHROMASIA 1+ Normal [facility] Comment on above: Performed By: #### C SHARITA ZCBCGR ####MAIN LABCLIA:[id number] [place] [address] NORMOCHROMIC NO Normal [facility] Comment on above: Performed By: #### C SHARITA ZCBCGR ####MAIN LABCLIA:[id number] [place] [address] NORMOCYTIC NO [facility] Comment on above: Performed By: #### C SHARITA ZCBCGR ####MAIN LABCLIA:[id number] [place] [address] Platelets NORMAL Normal [facility] Comment on above: Performed By: #### C SHARITA ZCBCGR ####MAIN LABCLIA:[id number] [place] [address] BAND NEUTROPHILS #(MANUAL) 152 /cmm Normal <648 [facility] Comment on above: Performed By: #### Vladimir SHERIFF ZCBCGR ####MAIN LABCLIA:[id number] [place] [address] Eosinophils 456 /cmm High <432 [facility] Comment on above: Performed By: #### Vladimir SHERIFF ZCBCGR ####MAIN LABCLIA:[id number] [place] [address] Eosinophils/100 leukocytes 6 % High <4 [facility] Comment on above: Performed By: #### C SHARITA ZCBCGR ####MAIN LABCLIA:[id number] [place] [address] Lymphocytes 1748 /cmm Normal 960-4752 [facility] Comment on above: Performed By: #### Vladimir SHERIFF ZCBCGR ####MAIN LABCLIA:[id number] [place] [address] Lymphocytes/100 leukocytes 23 % Normal 20-44 [facility] Comment on above: Performed By: #### Vladimir SHERIFF ZCBCGR ####MAIN LABCLIA:[id number] [place] [address] METAMYELOCYTES #(MANUAL) 76 /cmm High 0 [facility] Comment on above: Performed By: #### Vladimir SHERIFF ZCBCGR ####MAIN LABCLIA:[id number] [place] [address] Metamyelocytes/100 leukocytes 1 % High 0 [facility] Comment on above: Performed By: #### Yaquelin RUFFCBCGR ####MAIN LABCLIA:[id number] [place] [address] Monocytes 1292 /cmm High 96-972 [facility] Comment on above: Performed By: #### Vladimir SHERIFF ZCBCGR ####MAIN LABCLIA:[id number] [place] [address] Monocytes/100 leukocytes 17 % High 2-9 [facility] Comment on above: Performed By: #### Vladimir SHERIFF ZCBCGR ####MAIN LABCLIA:[id number] [place] [address] Neutrophils 3876 /cmm Normal 3144-0955 [facility] Comment on above: Performed By: #### Vladimir SHERIFF ZCBCGR ####MAIN LABCLIA:[id number] [place] [address] Neutrophils band/100 leukocytes 2 % Normal <6 [facility] Comment on above: Performed By: #### Vladimir SHERIFF ZCBCGR ####MAIN LABCLIA:[id number] [place] [address] Neutrophils/100 WBC Auto (Bld) 51 % Normal 50-70 [facility] Comment on above: Performed By: #### Vladimir SHERIFF ZCBCGR ####MAIN LABCLIA:[id number] [place] [address] TOTAL CELLS COUNTED 100 Normal [facility] Comment on above: Performed By: #### C SHARITA ZCBCGR ####MAIN LABCLIA:[id number] [place] [address] Erythrocyte distribution width Auto Ratio (RBC) 13.0 % Normal 11.5-14.5 [facility] Comment on above: Performed By: #### C SHARITA ZCBCGR ####MAIN LABCLIA:[id number] [place] [address] Erythrocytes (RBC) 3.49 10 6/cmm Low 4.20-5.40 [facility] Comment on above: Performed By: #### C Yaquelin SHERIFFCBCGR ####MAIN LABCLIA:[id number] [place] [address] Hematocrit (HCT) 29.4 % Low 38.0-47.0 [facility] Comment on above: Performed By: #### C Yaquelin SHERIFFCBCGR ####MAIN LABCLIA:[id number] [place] [address] Hemoglobin mass conc (Bld) 10.1 g/dL Low 12.0-16.4 [facility] Comment on above: Performed By: #### C Yaquelin SHERIFFCBCGR ####MAIN LABCLIA:[id number] [place] [address] MCH 34.5 g/dL Normal 32.0-36.0 [facility] Comment on above: Performed By: #### C SHARITA ZCBCGR ####MAIN LABCLIA:[id number] [place] [address] MCH 29.1 pg Normal 27.0-31.0 [facility] Comment on above: Performed By: #### C SHARITA ZCBCGR ####MAIN LABCLIA:[id number] [place] [address] MCV 84.3 fL Normal 80.0-96.0 [facility] Comment on above: Performed By: #### C SHARIAT ZCBCGR ####MAIN LABCLIA:[id number] [place] [address] Platelets 359 10 3/cmm Normal 130-400 [facility] Comment on above: Performed By: #### C BC, ZCBCGR ####MAIN LABCLIA:[id number] [place] [address] WBC (Leukocytes) 7.6 10 3/cmm Normal 4.8-10.8 [facility] Comment on above: Performed By: #### C BC, ZCBCGR ####MAIN LABCLIA:[id number] [place] [address] FREE T4 (FREE THYROXINE)on 0 01-06-2018 Thyroxine (T4) free 2.46 ng/dL High 0.93-1.7 [facility] Comment on above: Performed By: #### C BC, ZCBCGR ####MAIN LABCLIA:[id number] [place] [address] IM Progress Noteon 8 IM Progress Note [address] [place], [place] [address] TANGELA TRINIDAD 77 [id number] Donnell Barton MD 4W / [id number] 1940 Report #: [id number] Hospitalist Progress Note Date/Time: 01/06/18805 Report Status: [...] fine and wants to go back to [place]. Her will be driving. - Reviewed laboratory [...] have her follow-up with her physician in [place]. (2) Hyponatremia Status: Improved Plan: Sodium of 133-asymptomatic urine sodium slightly elevated at 35. (3) Essential hypertension Status: Stable (4) Hypothyroidism Plan: Suppressed TSH, her physician from [place] just called her in down dosed her [...] 0817 Electronically Cosigned By: Cosigned Date/Time: Normal [facility] T3 FREEon 01-06-2018 Triiodothyronine (T3) free 5.92 pg/mL High 2.0-4.4 [facility] Comment on above: Performed By: #### C VAMSI SHERIFFGR ####MAIN LABCLIA:[id number] [place] [address] CBC/DIFF GROUPon 01-05-2018 NORMOCHROMIC YES Normal [facility] Comment on above: Performed By: #### C MELONY SHERIFF ####MAIN LABCLIA:[id number] [place] [address] NORMOCYTIC YES Normal [facility] Comment on above: Performed By: #### C MELONY SHERIFF ####MAIN LABCLIA:[id number] [place] [address] Platelets NORMAL Normal [facility] Comment on above: Performed By: #### Vladimir SHERIFF ZCBCGR ####MAIN LABCLIA:[id number] [place] [address] BAND NEUTROPHILS #(MANUAL) 414 /cmm Normal <648 [facility] Comment on above: Performed By: #### C SHARITA ZCBCGR ####MAIN LABCLIA:[id number] [place] [address] Eosinophils 552 /cmm High <432 [facility] Comment on above: Performed By: #### C SHARITA ZCBCGR ####MAIN LABCLIA:[id number] [place] [address] Eosinophils/100 leukocytes 4 % Normal <4 [facility] Comment on above: Performed By: #### Vladimir SHERIFF ZCBCGR ####MAIN LABCLIA:[id number] [place] [address] Lymphocytes 690 /cmm Low 960-4752 [facility] Comment on above: Performed By: #### C SHARITA ZCBCGR ####MAIN LABCLIA:[id number] [place] [address] Lymphocytes/100 leukocytes 5 % Low 20-44 [facility] Comment on above: Performed By: #### Vladimir SHERIFF ZCBCGR ####MAIN LABCLIA:[id number] [place] [address] Monocytes 1242 /cmm High 96-972 [facility] Comment on above: Performed By: #### C SHARITA ZCBCGR ####MAIN LABCLIA:[id number] [place] [address] Monocytes/100 leukocytes 9 % Normal 2-9 [facility] Comment on above: Performed By: #### C SHARITA ZCBCGR ####MAIN LABCLIA:[id number] [place] [address] Neutrophils 01933 /cmm High 0890-5406 [facility] Comment on above: Performed By: #### C SHARITA, ZCBCGR ####MAIN LABCLIA:[id number] [place] [address] Neutrophils band/100 leukocytes 3 % Normal <6 [facility] Comment on above: Performed By: #### C SHARITA, ZCBCGR ####MAIN LABCLIA:[id number] [place] [address] Neutrophils/100 WBC Auto (Bld) 79 % High 50-70 [facility] Comment on above: Performed By: #### C SHARITA, ZCBCGR ####MAIN LABCLIA:[id number] [place] [address] TOTAL CELLS COUNTED 100 Normal [facility] Comment on above: Performed By: #### C SHARITA, ZCBCGR ####MAIN LABCLIA:[id number] [place] [address] Hematocrit (HCT) 36.0 % Low 38.0-47.0 [facility] Comment on above: Performed By: #### C SHARITA ZCBCGR ####MAIN LABCLIA:[id number] [place] [address] Hemoglobin mass conc (Bld) 12.2 g/dL Normal 12.0-16.4 [facility] Comment on above: Performed By: #### C SHARITA, ZCBCGR ####MAIN LABCLIA:[id number] [place] [address] MCH 28.6 pg Normal 27.0-31.0 [facility] Comment on above: Performed By: #### C SHARITA ZCBCGR ####MAIN LABCLIA:[id number] [place] [address] MCV 84.1 fL Normal 80.0-96.0 [facility] Comment on above: Performed By: #### C SHARITA, ZCBCGR ####MAIN LABCLIA:[id number] [place] [address] WBC (Leukocytes) 13.8 10 3/cmm High 4.8-10.8 [facility] Comment on above: Performed By: #### C , ZCBCGR ####MAIN LABCLIA:[id number] [place] [address] CHEST 2 VIEWSon 01-05-2018 CHEST [address] [phone]____ Pt Location: 4W/ ADM IN Pt RM#: [id number] MR #: [id number] DATE: 01/05/18 123 ADM#: [id number] #: [id number] JANET TRINIDADOB: 1940 Age/Sex: 77 / F [...] JLECC: ROSY Salvador; Doctor,No; Donnell Barton MD [facility] COMPLETE BLOOD COUNTon 01-05 Erythrocyte distribution width Auto Ratio (RBC) 12.7 % Normal 11.5-14.5 [facility] Comment on above: Performed By: #### C BC, ZCBCGR ####MAIN LABCLIA:[id number] [facility] [address] Erythrocytes (RBC) 4.28 10 6/cmm Normal 4.20-5.40 [facility] Comment on above: Performed By: #### C BC, ZCBCGR ####MAIN LABCLIA:[id number] [place] [address] MCH 34.0 g/dL Normal 32.0-36.0 [facility] Comment on above: Performed By: #### C BC, ZCBCGR ####MAIN LABCLIA:[id number] [place] [address] Platelets 423 10 3/cmm High 130-400 [facility] Comment on above: Performed By: #### C BC, ZCBCGR ####MAIN LABCLIA:[id number] [place] [address] COMPREHENSIVE METABOLIC PANE Umberto 01-05-2018 Alanine aminotransferase (ALT) 15 U/L Normal 0-33 [facility] Comment on above: Performed By: #### C MP MG ####MAIN LABCLIA:[id number] [place] [address] Albumin 3.3 g/dL Normal 3.0-4.5 [facility] Comment on above: Performed By: #### C MP, MG ####MAIN LABCLIA:[id number] [place] [address] Albumin/Globulin Ratio 1.2 {ratio} Normal 1-1.4 [facility] Comment on above: Performed By: #### C MP, MG ####MAIN LABCLIA:[id number] [facility] [address] Alkaline phosphatase (ALP) 76 U/L Normal 35-104 [facility] Comment on above: Performed By: #### C MP, MG ####MAIN LABCLIA:[id number] [facility] [place] [place] [address] Anion gap 15 mmol/L Normal 9-18 [facility] Comment on above: Performed By: #### C MP, MG ####MAIN LABCLIA:[id number] [facility] [place] [address] Aspartate aminotransferase (AST) 16 U/L Normal 0-32 [facility] Comment on above: Performed By: #### C MP, MG ####MAIN LABCLIA:[id number] [facility] [place] [address] Bilirubin (total) 0.4 mg/dL Normal 0.2-1.2 [facility] Comment on above: Performed By: #### C MP, MG ####MAIN LABCLIA:[id number] [facility] [address] BUN (urea nitrogen) 26 mg/dL High 8-23 [facility] Comment on above: Performed By: #### C MP, MG ####MAIN LABCLIA:[id number] [facility] [address] BUN/Creatinine Ratio 22.2 mg/mg Normal [facility] Comment on above: Performed By: #### C MP, MG ####MAIN LABCLIA:[id number] [facility] [address] Calcium 8.5 mg/dL Low 8.8-10.2 [facility] Comment on above: Performed By: #### C MP, MG ####MAIN LABCLIA:[id number] [facility] [address] Chloride 90 mmol/L Low 98-107 [facility] Comment on above: Performed By: #### C MP, MG ####MAIN LABCLIA:[id number] [facility] [address] CO2 26 mmol/L Normal 22-29 [facility] Comment on above: Performed By: #### C MP, MG ####MAIN LABCLIA:[id number] [facility] [address] Creatinine 1.17 mg/dL High 0.50-0.90 [facility] Comment on above: Performed By: #### C MP, MG ####MAIN LABCLIA:[id number] [place] [address] eGFR (MDRD) 47 /1.73 m2 Low >60 mL/min [facility] Comment on above: Result Comment: Norm al RangeStage Description:1 Normal or Increased GFR >=902 Mild Decrease in GFR 60-903 Moderately Decreased GFR 30-594 Severely Decreased GFR 15-295 Kidney Failure <15 Performed By: #### C MP, MG ####MAIN LABCLIA:[id number] [place] [address] Globulin 2.7 g/dL Normal 2.3-3.5 [facility] Comment on above: Performed By: #### C MP, MG ####MAIN LABCLIA:[id number] [place] [address] Glucose mass conc 136 mg/dL High 74-109 [facility] Comment on above: Performed By: #### C MP, MG ####MAIN LABCLIA:[id number] [place] [address] Potassium molar conc 4.5 mmol/L Normal 3.5-5.1 [facility] Comment on above: Performed By: #### C MP, MG ####MAIN LABCLIA:[id number] [place] [address] Protein 6.0 g/dL Low 6.4-8.3 [facility] Comment on above: Performed By: #### C MP, MG ####MAIN LABCLIA:[id number] [place] [address] Sodium 126 mmol/L Low 136-145 [facility] Comment on above: Performed By: #### C MP, MG ####MAIN LABCLIA:[id number] [place] [address] CT HEAD WO 01-05-2018 CT HEAD WO [address] [phone]____ Pt Location: 4W/ ADM IN Pt RM#: [id number] MR #: [id number] DATE: 01/05/18 1236 ADM#: [id number] #: [id number] JANET TRINIDADOB: 1940 Age/Sex: 77 / F REPORT STATUS: SignedORDERING PHYSICIAN: STU Salvador/PRIMARY PHYSICIAN: Umm Gates HISTO RY/REASON: Dizziness, near syncopeCLINICAL HISTORY: Syncope.TECHNICAL [...] matter.REPORT# [id number] READ BY: Cielo Pacheco M.D. [id number] REPORT RELEASED BY: Cielo Pacheco M.D. 01/05/18 1502Transcribed Date/Time: 01/05/18 1339 PLPCC: ROSY Salvador; Doctor,No; Donnell Barton MD [facility] Emergency Room Visit Reporto n 01-05-2018 Emergency Room Visit Report [address] [place] [id number] TANGELA TRINIDAD 1940 (77 F) [id number] Helio Hoang 4W Report #: [id number] PCP: No Doctor Emergency Room Visit Report [...] reports feeling dizziness and near syncope at [facility]. Pt reports recent bronchitis that she was [...] Allergy Mild Rash Verified 01/05/18 12:40 Antibiotics) Cecbynw-Air-Hbw Reductase Allergy Unknown Verified 01/05/18 12:40 Inhibitor [...] PO BID 01/05/18 01/05/18 raNITIdine HCl [Acid Merchandise Executive] 150 mg PO BID 01/05/18 01/05/18 ROS [...] % (Manual) (<4) % Neutrophils # (Manual) (9716-0286) /cmm Band Neutrophils # (<648) /cmm Lymphocytes [...] Appearance Clear Urine pH 7.0 Ur Specific [place] <=1.005 Urine Protein Negative (NEGATIVE) Urine Glucose [...] (Manual) 4 (<4) % Neutrophils # (Manual) 32456 H (4055-0057) /cmm Band Neutrophils # 414 (<648) /cmm [...] Color Urine Appearance Urine pH Ur Specific [place] Urine Protein (NEGATIVE) Urine Glucose (UA) (NEGATIVE) [...] by the [facility] in [facility]. 01/05/18 14:40 I discussed this [...] Sohan Grover MD Cosigned Date/Time: 01/05/18 190 [facility] History & Physicalon 018 History & Physical [address] [place] [id number] TANGELA TRINIDAD [id number] Donnell Barton MD 4W / [id number] 1940 Report #: [id number] Admission Date: 01/05/18 History Physical Date/Time: 01/05/18 1530 Report Status: Signed HPI Date Seen: 01/05/18 Time Seen: 15:30 Seen By: Donnell Barton Reason for Visit: ELEAZAR Ms. TRINIDAD is a 77 year old female with a past medical history of essential hypertension, hypothyroidism, and GERD, and recently treated for a upper respiratory infection with prednisone and doxycycline presents with a presyncopal episode. Patient is visiting this area from [place] in [place] [...] asymptomatic. Evaluation emergency room consisted of a campus monitor which shows normal sinus rhythm, EKG [...] Allergy Mild Rash Verified 01/05/18 12:40 Antibiotics) Bfckenk-Jnz-Tmp Reductase Allergy Unknown Verified 01/05/18 12:40 Inhibitor [...] PO BID 01/05/18 01/05/18 raNITIdine HCl [Acid Merchandise Executive] 150 mg PO BID 01/05/18 01/05/18 Allergies [...] 1541 Electronically Cosigned By: Cosigned Date/Time: Normal [facility] MAGNESIUMon 01-05-2018 Magnesium 2.1 mg/dL Normal 1.6-2.6 [facility] Comment on above: Performed By: #### C MP, MG ####MAIN LABCLIA:[id number] [place] [address] SODIUM,URINE RANDOMon 2017 SODIUM,URINE RANDOM 35 mmol/L Normal [facility] Comment on above: Order Comment: COLLE CTED BY: Sherine Tenorio Result Comment: The reference range has not been established for this test. Performed By: #### C BC, ZCBCGR ####MAIN LABCLIA:[id number] [place] [address] THYROID STIMULATING HORMONEo n 01-05-2018 Thyroid stimulating hormone (TSH) 0.16 uIU/mL Low 0.27-4.20 [facility] Comment on above: Performed By: #### C BC, ZCBCGR ####MAIN LABCLIA:[id number] [place] [address] TROPONIN Ton 01-05-2018 Troponin T.cardiac mass conc ug/L Normal <0.010 [facility] Comment on above: Result Comment: Valu es [...] Performed By: #### C BC, ZCBCGR ####MAIN LABCLIA:[id number] [place] [address] Troponin T.cardiac mass conc ug/L Normal <0.010 [facility] Comment on above: Result Comment: Valu es [...] hours. Performed By: #### T ROPT ####MAIN LABCLIA:[id number] [facility] [place] [address] URINALYSISon 01-05-2018 UA APPEARANCE CLEAR Normal [facility] Comment on above: Order Comment: COLLE CTED BY: Tye acostaOID-MIDSTREAM Performed By: #### U A ####MAIN LABCLIA:[id number] [facility] [place] [address] UA BACTERIA NONE Normal NONE [facility] Comment on above: Order Comment: COLLE CTED BY: Tye acostaOID-MIDSTREAM Performed By: #### U A ####MAIN LABCLIA:[id number] [facility] [place] [address] UA SQUAMOUS EPITHELIAL 0-2 Normal [facility] Comment on above: Order Comment: COLLE CTED BY: Tye acostaOID-MIDSTREAM Performed By: #### U A ####MAIN LABCLIA:[id number] [facility] [address] UA WBC 0-2 Normal 0-2 [facility] Comment on above: Order Comment: COLLE CTED BY: Tye acostaOID-MIDSTREAM Performed By: #### U A ####MAIN LABCLIA:[id number] [facility] [address] Urine, color YELLOW Normal [facility] Comment on above: Order Comment: COLLE CTED BY: Tye acostaOID-MIDSTREAM Performed By: #### U A ####MAIN LABCLIA:[id number] [facility] [place] [address] Urine, erythrocytes 0-2 Normal 0-2 [facility] Comment on above: Order Comment: COLLE CTED BY: davedVOID-MIDSTREAM Performed By: #### U A ####MAIN LABCLIA:[id number] [place] [address] UA BILIRUBIN Negative Normal NEGATIVE [facility] Comment on above: Order Comment: COLLE CTED BY: Tye acostaOID-MIDSTREAM Performed By: #### U A ####MAIN LABCLIA:[id number] [place] [address] UA BLOOD Negative Normal NEGATIVE [facility] Comment on above: Order Comment: COLLE CTED BY: Tye acostaOID-MIDSTREAM Performed By: #### U A ####MAIN LABCLIA:[id number] [place] [address] UA LEUKOCYTE ESTERASE TRACE Normal NEGATIVE [facility] Comment on above: Order Comment: COLLE CTED BY: Tye acostaOID-MIDSTREAM Performed By: #### U A ####MAIN LABCLIA:[id number] [place] [address] UA NITRITES Negative Normal NEGATIVE [facility] Comment on above: Order Comment: COLLE CTED BY: Tye acostaOID-MIDSTREAM Performed By: #### U A ####MAIN LABCLIA:[id number] [place] [address] UA PH 7.0 Normal [facility] Comment on above: Order Comment: COLLE CTED BY: Tye acostaOID-MIDSTREAM Performed By: #### U A ####MAIN LABCLIA:[id number] [place] [address] UA PROTEIN Negative Normal NEGATIVE [facility] Comment on above: Order Comment: COLLE CTED BY: Tye acostaOID-MIDSTREAM Performed By: #### U A ####MAIN LABCLIA:[id number] [place] [address] UA SPECIFIC GRAVITY <=1.005 Normal [facility] Comment on above: Order Comment: COLLE CTED BY: Tye acostaOID-MIDSTREAM Performed By: #### U A ####MAIN LABCLIA:[id number] [facility] [address] UA UROBILINOGEN 0.2 mg/dL Normal 0.0-1.0 [facility] Comment on above: Order Comment: COLLE CTED BY: davedVOID-MIDSTREAM Performed By: #### U A ####MAIN LABCLIA:[id number] [facility] [address] Urine, glucose Negative Normal NEGATIVE [facility] Comment on above: Order Comment: COLLE CTED BY: davedVOID-MIDSTREAM Performed By: #### U A ####MAIN LABCLIA:[id number] [place] [address] Urine, ketones presence Negative Normal NEGATIVE [facility] Comment on above: Order Comment: COLLE CTED BY: davedVOID-MIDSTREAM Performed By: #### U A ####MAIN LABCLIA:[id number] [place] [address] URINE SOURCE VOID-MIDSTREAM Normal [facility] Comment on above: Order Comment: COLLE CTED BY: davedVOID-MIDSTREAM Performed By: #### U A ####MAIN LABCLIA:[id number] [place] [address] VASCULAR RISK PANELon 2017 Cholesterol 180 mg/dL Normal 0-199 [facility] Comment on above: Order Comment: Comme nts: Use blood from ED if available Performed By: #### Yaquelin RUFFCBCGR ####MAIN LABCLIA:[id number] [place] [address] HDL Cholesterol 42 mg/dL Low >65 [facility] Comment on above: Order Comment: Comme nts: Use blood from ED if available Performed By: #### Yaquelin RUFFCBCGR ####MAIN LABCLIA:[id number] [place] [address] LDL Cholesterol 98 mg/dL Normal <129 [facility] Comment on above: Order Comment: Comme nts: Use blood from ED if available Performed By: #### C BC, ZCBCGR ####MAIN LABCLIA:[id number] [place] [address] Triglyceride 202 mg/dL High 0-199 [facility] Comment on above: Order Comment: Comme nts: Use blood from ED if available Performed By: #### C BC, ZCBCGR ####MAIN LABCLIA:[id number] [place] [address] VLDL CHOLESTEROL 40 mg/dL Normal 5-40 [facility] Comment on above: Order Comment: Comme nts: Use blood from ED if available Performed By: #### C BC, ZCBCGR ####MAIN LABCLIA:[id number] [place] [address] Vital Signs Date Time Vital Sign Value Performing Clinician Facility 01-02-2024 11:39-0400 Body height 152.4 cm DO Kvng Ball Work Phone: [facility] 01-02-2024 11:39-0400 Body mass index (BMI) [Ratio] 26.6 kg/m2 DO Kvng Ball Work Phone: [facility] 01-02-2024 11:39-0400 Body weight 61.91 kg DO Kvng Ball Work Phone: [facility] 01-02-2024 11:39-0400 Diastolic blood pressure 85 mm[Hg] DO Kvng Ball Work Phone: [facility] 01-02-2024 11:39-0400 Heart rate 66 /min DO Kvng Ball Work Phone: [facility] 01-02-2024 11:39-0400 Respiratory rate 12 /min DO Kvng Ball Work Phone: [facility] 01-02-2024 11:39-0400 Systolic blood pressure 124 mm[Hg] DO Kvng Ball Work Phone: [facility] 05-27-2023 11:00-0500 Body height 152.4 cm Kvng Ball Other [employer] Other 05-27-2023 11:00-0500 Diastolic blood pressure 84 mm[Hg] Kvng Ball Other [employer] Other 05-27-2023 11:00-0500 Systolic blood pressure 124 mm[Hg] Kvng Ball Other [employer] Other 03-04-2023 13:45-0400 Body height 152.4 cm Kvng Ball Other [employer] Other 03-04-2023 13:45-0400 Body mass index (BMI) [Ratio] 28.47 kg/m2 Kvng Ball Other [employer] Other 03-04-2023 13:45-0400 Body weight 66.13 kg Kvng Ball Other [employer] Other 03-04-2023 13:45-0400 Diastolic blood pressure 80 mm[Hg] Kvng Ball Other [employer] Other 03-04-2023 13:45-0400 Respiratory rate 12 /min Kvng Ball Other [employer] Other 03-04-2023 13:45-0400 Systolic blood pressure 117 mm[Hg] Kvng Ball Other [employer] Other 02-22-2023 11:00-0400 Body height 152.4 cm Kvng Ball Other [employer] Other 02-22-2023 11:00-0400 Body mass index (BMI) [Ratio] 28.39 kg/m2 Kvng Ball Other [employer] Other 02-22-2023 11:00-0400 Body weight 65.95 kg Kvng Ball Other [employer] Other 02-22-2023 11:00-0400 Diastolic blood pressure 83 mm[Hg] Kvng Ball Other [facility] [employer] Other 02-22-2023 11:00-0400 Respiratory rate 12 /min Kvng Ball Other [facility] Other 02-22-2023 11:00-0400 Systolic blood pressure 132 mm[Hg] Kvng Ball Other [facility] [employer] [facility] Other 01-24-2023 09:18-0400 Diastolic blood pressure 72 mm[Hg] DO Kvng Ball Work Phone: [facility] 01-24-2023 09:18-0400 Heart rate 56 /min DO Kvng Ball Work Phone: [facility] 01-24-2023 09:18-0400 Respiratory rate 14 /min DO Kvng Ball Work Phone: [facility] 01-24-2023 09:18-0400 SaO2% (BldA) [Mass fraction] 98 % DO Kvng Ball Work Phone: [facility] 01-24-2023 09:18-0400 Systolic blood pressure 126 mm[Hg] DO Kvng Ball Work Phone: [facility] 01-24-2023 07:44-0400 Body height 154.94 cm DO Kvng Ball Work Phone: [facility] 01-24-2023 07:44-0400 Body temperature 97.8 [degF] DO Kvng Ball Work Phone: [facility] 01-24-2023 07:44-0400 Body weight 65.31 kg DO Kvng Ball Work Phone: [facility] 11-18-2022 12:00-0400 Body height 152.4 cm Kvng Ball Other [facility] [employer] [facility] Other 11-18-2022 12:00-0400 Body mass index (BMI) [Ratio] 28.74 kg/m2 Kvng Ball Other [employer] Other 11-18-2022 12:00-0400 Body weight 66.77 kg Kvng Ball Other [employer] Other 11-18-2022 12:00-0400 Diastolic blood pressure 82 mm[Hg] Kvng Ball Other [employer] Other 11-18-2022 12:00-0400 Respiratory rate 12 /min Kvng Ball Other [facility] [employer] [facility] [employer] [facility] Other 11-18-2022 12:00-0400 Systolic blood pressure 125 mm[Hg] Kvng Ball Other [employer] Other 10-28-2022 14:05-0400 Diastolic blood pressure 73 mm[Hg] DO Kvng Ball Work Phone: [facility] 10-28-2022 14:05-0400 Heart rate 60 /min DO Kvng Ball Work Phone: [facility] 10-28-2022 14:05-0400 Respiratory rate 18 /min DO Kvng Ball Work Phone: [facility] 10-28-2022 14:05-0400 SaO2% (BldA) [Mass fraction] 96 % DO Kvng Ball Work Phone: [facility] 10-28-2022 14:05-0400 Systolic blood pressure 117 mm[Hg] DO Kvng Ball Work Phone: [facility] 10-28-2022 11:42-0400 Body height 154.94 cm DO Kvng Ball Work Phone: [facility] 10-28-2022 11:42-0400 Body temperature 97.9 [degF] DO Kvng Ball Work Phone: [facility] 10-28-2022 11:42-0400 Body weight 65.77 kg DO Kvng Ball Work Phone: [facility] 10-12-2022 15:00-0400 Body height 152.4 cm Kvng Ball Other [employer] Other 10-12-2022 15:00-0400 Body mass index (BMI) [Ratio] 28.78 kg/m2 Kvng Ball Other [employer] Other 10-12-2022 15:00-0400 Body weight 66.86 kg Kvng Ball Other [employer] Other 10-12-2022 15:00-0400 Diastolic blood pressure 80 mm[Hg] Kvng Ball Other [employer] Other 10-12-2022 15:00-0400 Respiratory rate 12 /min Kvng Ball Other [employer] Other 10-12-2022 15:00-0400 Systolic blood pressure 116 mm[Hg] Kvng Ball Other [employer] Other 07-27-2022 14:38-0500 Body height 152.4 cm Mavis Santiago MD Work Phone: [facility] 07-27-2022 14:38-0500 Body temperature 98.1 [degF] Mavis Santiago MD Work Phone: [facility] 07-27-2022 14:38-0500 Body weight 66.5 kg Mavis Santiago MD Work Phone: [facility] 07-27-2022 14:38-0500 Diastolic blood pressure 72 mm[Hg] Mavis Santiago MD Work Phone: [facility] 07-27-2022 14:38-0500 Heart rate 64 /min Mavis Santiago MD Work Phone: [facility] 07-27-2022 14:38-0500 Respiratory rate 16 /min Mavis Santiago MD Work Phone: [facility] 07-27-2022 14:38-0500 SaO2% (BldA) [Mass fraction] 97 % Mavis Santiago MD Work Phone: [facility] 07-27-2022 14:38-0500 Systolic blood pressure 125 mm[Hg] Mavis Santiago MD Work Phone: [facility] 07-26-2022 09:19-0500 Diastolic blood pressure 69 mm[Hg] DO Kvng Ball Work Phone: [facility] 07-26-2022 09:19-0500 Heart rate 59 /min DO Kvng Ball Work Phone: [facility] 07-26-2022 09:19-0500 Respiratory rate 16 /min DO Kvng Ball Work Phone: [facility] 07-26-2022 09:19-0500 SaO2% (BldA) [Mass fraction] 98 % DO Kvng Ball Work Phone: [facility] 07-26-2022 09:19-0500 Systolic blood pressure 111 mm[Hg] DO Kvng Ball Work Phone: [facility] 07-26-2022 07:19-0500 Body height 154.94 cm DO Kvng Ball Work Phone: [facility] 07-26-2022 07:19-0500 Body temperature 97.7 [degF] DO Kvng Ball Work Phone: [facility] 07-26-2022 07:19-0500 Body weight 66.22 kg DO Kvng Ball Work Phone: [facility] 07-21-2022 14:30-0500 Body height 152.4 cm Kvng Ball Other [employer] Other 01-11-2023 14:30-0500 Body mass index (BMI) [Ratio] 28.82 kg/m2 Kvng Ball Other [employer] Other 07-21-2022 14:30-0500 Body weight 66.95 kg Kvng Ball Other [employer] Other 07-21-2022 14:30-0500 Diastolic blood pressure 70 mm[Hg] Kvng Ball Other [employer] Other 07-21-2022 14:30-0500 Respiratory rate 12 /min Kvng Ball Other [employer] Other 07-21-2022 14:30-0500 Systolic blood pressure 118 mm[Hg] Kvng [address] Other [employer] Other 05-25-2022 13:02-0500 Body temperature 96.91 [degF] Chair [place] Work Phone: [facility] 05-25-2022 13:02-0500 Diastolic blood pressure 88 mm[Hg] Chair [place] Work Phone: [facility] 05-25-2022 13:02-0500 Heart rate 68 /min Chair Ryan Work Phone: [facility] 05-25-2022 13:02-0500 Respiratory rate 18 /min Chair [place] Work Phone: [facility] 05-25-2022 13:02-0500 SaO2% (BldA) [Mass fraction] 100 % Chair Ryan Work Phone: [facility] 05-25-2022 13:02-0500 Systolic blood pressure 146 mm[Hg] Chair Ryan Work Phone: [facility] 05-18-2022 15:42-0500 Body temperature 98.1 [degF] Mavis Santiago MD Work Phone: [facility] 05-18-2022 15:42-0500 Body weight 68.04 kg Mavis Santiago MD Work Phone: [facility] 05-18-2022 15:42-0500 Diastolic blood pressure 78 mm[Hg] Mavis Santiago MD Work Phone: [facility] 05-18-2022 15:42-0500 Heart rate 78 /min Mavis Santiago MD Work Phone: [facility] 05-18-2022 15:42-0500 Respiratory rate 16 /min Mavis Santiago MD Work Phone: [facility] 05-18-2022 15:42-0500 SaO2% (BldA) [Mass fraction] 98 % Mavis Santiago MD Work Phone: [facility] 05-18-2022 15:42-0500 Systolic blood pressure 122 mm[Hg] Mavis Santiago MD Work Phone: [facility] Encounters Encounter Date Encounter Type Care Provider Facility Start: 04-23-2024 End: 04-23-2024 ambulatory Charlotte Levi MD [facility]: [facility] Start: 04-09-2024 End: 04-09-2024 ambulatory Charlotte Levi MD Facility: [facility] Start: 04-02-2024 End: 04-02-2024 ambulatory Charlotte Levi MD Facility: [facility] Start: 03-29-2024 End: 03-29-2024 ambulatory LORELEI HURTADO Not Available Start: 03-20-2024 End: 03-20-2024 ambulatory NICHO MARC Not Available Start: 03-16-2024 End: 03-16-2024 Patient encounter procedure DO Kvng Melgar Work Phone: [facility] [place] Work Phone: Start: 03-16-2024 End: 03-16-2024 ambulatory DO Kvng Melgar Work Phone: [facility] Work Phone: Start: 03-01-2024 End: 03-01-2024 ambulatory LORELEI HURTADO Not Available Start: 01-31-2024 End: 01-31-2024 ambulatory LORELEI HURTADO Not Available Start: 01-25-2024 End: 01-25-2024 ambulatory TED GILMORE Not Available Start: 01-02-2024 End: 01-02-2024 Patient encounter procedure DO Kvng Melgar Work Phone: [facility] Work Phone: Start: 09-15-2023 End: 09-15-2023 ambulatory Imad Asaad Other [employer] Other Start: 09-15-2023 Telephone encounter Imad Asaad [facility] Start: 08-10-2023 End: 08-10-2023 ambulatory Imad Asaad Other [employer] Other Start: 08-10-2023 Office outpatient vi sit 25 minutes Imad Asaad [facility] Start: 08-01-2023 End: 08-01-2023 ambulatory Kvng Melgar Other [employer] Other Start: 08-01-2023 Telephone encounter Kvng Melgar [facility] Start: 07-25-2023 End: 07-25-2023 Patient encounter procedure DO Kvng Melgar Work Phone: [facility] Work Phone: Start: 07-25-2023 End: 07-25-2023 ambulatory DO Kvng Melgar Work Phone: [facility] Work Phone: Start: 07-06-2023 End: 07-06-2023 ambulatory Imad Asaad Other [employer] Other Start: 07-06-2023 Telephone encounter Imad Asaad [facility] Start: 06-20-2023 End: 06-20-2023 ambulatory Kvng Ball Other [employer] Other Start: 06-20-2023 Telephone encounter Kvng Ball [facility] Start: 06-15-2023 End: 06-15-2023 ambulatory Kvng Ball Other [employer] Other Start: 06-15-2023 Telephone encounter Kvng Ball [facility] Start: 06-08-2023 End: 06-08-2023 ambulatory Kvng Ball Other [employer] Other Start: 06-08-2023 Telephone encounter Kvng Ball [facility] Start: 05-31-2023 End: 05-31-2023 ambulatory Kvng Ball Other [facility] Other Start: 05-31-2023 Telephone encounter Kvng Ball [facility] Start: 05-29-2023 End: 05-29-2023 ambulatory Kvng Ball Other [facility] Other Start: 05-29-2023 Telephone encounter Kvng Ball [facility] Start: 05-28-2023 End: 05-28-2023 ambulatory Kvng Ball Other [employer] Other Start: 05-28-2023 Telephone encounter Kvng Ball [facility] Start: 05-27-2023 End: 05-27-2023 ambulatory Kvng Ball Other [employer] Other Start: 05-27-2023 Office outpatient vi sit 25 minutes Kvng Ball [facility] Start: 05-25-2023 End: 05-25-2023 ambulatory Kvng Ball Other [employer] Other Start: 05-25-2023 Telephone encounter Kvng Ball [facility] Start: 05-20-2023 End: 05-20-2023 ambulatory Kvng Ball Other [facility] Other Start: 05-20-2023 Telephone encounter Kvng Melgar [facility] Start: 05-10-2023 End: 05-10-2023 ambulatory Imad Asaad Other [employer] Other Start: 05-10-2023 Telephone encounter Imad Asaad [facility] Start: 04-26-2023 End: 04-26-2023 ambulatory Kvng Melgar Other [employer] Other Start: 04-26-2023 Nursing evaluation o f patient and report Kvng Melgar [facility] Start: 03-23-2023 End: 03-23-2023 ambulatory Imad Asaad Other [employer] Other Start: 03-23-2023 Telephone encounter Imad Asaad [facility] Start: 03-10-2023 End: 03-10-2023 ambulatory Kvng Melgar Other [employer] Other Start: 03-10-2023 Telephone encounter Kvng Melgar [facility] Start: 03-07-2023 End: 03-07-2023 ambulatory Kvng Melgar Other [employer] Other Start: 03-07-2023 Telephone encounter Kvng Melgar [facility] Start: 03-04-2023 End: 03-04-2023 ambulatory Kvng Melgar Other [employer] Other Start: 03-04-2023 Office outpatient vi sit 15 minutes Kvng Ermelinda [facility] Start: 02-28-2023 End: 02-28-2023 ambulatory Kvng Melgar Other [facility] Other Start: 02-28-2023 Telephone encounter Kvng Melgar [facility] Start: 02-22-2023 End: 02-22-2023 ambulatory Kvng Ermelinda Other [employer] Other Start: 02-22-2023 Office outpatient vi sit 25 minutes Kvng Melgar [facility] Start: 02-21-2023 End: 02-21-2023 ambulatory Kvng Melgar Other [employer] Other Start: 02-21-2023 Telephone encounter Kvng Melgar [facility] Start: 01-24-2023 End: 01-24-2023 ambulatory Sadiq Beckham Other [employer] Other Start: 01-24-2023 Telephone encounter Sadiq Pollard [facility] Start: 01-24-2023 End: 01-24-2023 Admission to same day surgery center DO [employer] Work Phone: [facility] Work Phone: Start: 12-28-2022 End: 12-28-2022 ambulatory Kvng Melgar Other [employer] Other Start: 12-28-2022 Telephone encounter Kvng Melgar [facility] Start: 11-19-2022 End: 11-19-2022 ambulatory Kvng Melgar Other [employer] Other Start: 11-19-2022 Telephone encounter Kvng Melgar [facility] Start: 11-18-2022 End: 11-18-2022 ambulatory Kvng Melgar Other [employer] Other Start: 11-18-2022 Patient encounter procedure Kvng Melgar [facility] Start: 11-01-2022 End: 11-01-2022 ambulatory Imad Asaad Other [employer] Other Start: 11-01-2022 Telephone encounter Imad Asaad [facility] Start: 10-28-2022 Telephone encounter Sadiq Pollard [facility] Start: 10-28-2022 End: 10-28-2022 Admission to same day surgery center DO Kvng Ermelinda Work Phone: [facility] Work Phone: Start: 10-28-2022 End: 10-28-2022 ambulatory DO Kvng Melgar Work Phone: [facility] Work Phone: Start: 10-21-2022 End: 10-21-2022 ambulatory Kvng Melgar Other [employer] Other Start: 10-21-2022 Telephone encounter Kvng Armstrong [facility] Start: 10-20-2022 End: 10-21-[address] KVNG MELGAR Facility:[facility] Start: 10-12-2022 End: 10-12-2022 ambulatory Kvng Melgar Other [employer] Other Start: 10-12-2022 Office outpatient vi sit 15 minutes Kvng Melgar [facility] Start: 10-12-2022 Telephone encounter Kvng Armstrong [employer] Start: 09-27-2022 End: 10-13-[address] KVNG MELGAR Facility: Start: 07-29-2022 End: 07-29-2022 ambulatory Kvng Melgar Other [employer] Other Start: 07-29-2022 Telephone encounter Kvng Armstrong [facility] Start: 07-27-2022 End: 07-27-2022 ambulatory KVNG MELGAR Facility:[facility] Start: 07-27-2022 End: 07-27-2022 Office outpatient visit 15 minutes Mavis Santiago MD Work Phone: Hematology/Oncology Comment on above: Iron deficiency (Danielle bethany Dx) Start: 07-26-2022 Telephone encounter Jeyson Diaz [facility] G[facility] Start: 07-26-2022 End: 07-26-2022 Admission to same day surgery center DO Kvng Melgar Work Phone: [facility] Work Phone: Start: 07-26-2022 End: 07-26-2022 ambulatory DO Kvng Melgar Work Phone: [facility] Work Phone: Start: 07-22-2022 End: 07-22-2022 Patient encounter procedure DO Kvng Melgar Work Phone: [id number] Work Phone: Start: 07-21-2022 End: 07-21-2022 ambulatory Kvng Melgar Other [facility] [facility] [employer] [facility] Other Start: 07-21-2022 Office outpatient vi sit 25 minutes Kvng ROSARIO [facility] Start: 06-02-2022 Social Work Marcia Ramires [employer] Hematolo gy/Oncology Start: 05-25-2022 Telephone encounter Financial [...] Dx) Start: 05-18-2022 Telephone encounter Adebayo Armstrong [employer] Start: 05-17-2022 Chart abstracting Mavis abraham MD [...] 06-09-2021 Adult health examination Kvng Melgar Other [employer] Other Start: 08-02-2019 Preoperative cardiovascular examination Kvng Melgar Other [employer] Other Start: 05-31-2019 Gynecological examination normal Kvng Melgar Other [employer] Other Start: 01-05-2018 End: 01-06-2018 Evaluation and management of inpatient No Doctor Facility:[facility] Procedures Date Procedure Procedure Detail Performing Clinician [...] for malign ant neoplasm of breast Adebayo aPn Other Screening for malign ant neoplasm of breast Kvng Melgar Other Plan of Treatment Date Care Activity Detail Author Start: 01-24-2023 End: 03-26-2023 CBC W Auto Differential panel - Blood CBC + DIFF Lab Routine Iron deficiency Expected: 01/24/2023 (Approximate), Expires: 03/26/2023 [facility] Work Phone: Comment on above: Expected: 01/24/2023 (Approximate), Expires: 03/26/2023 Start: 01-24-2023 End: 07-27-2023 Ferritin [Mass/volume] in Serum or Plasma FERRITIN BLD Lab Routine Iron deficiency Expected: 01/24/2023 (Approximate), Expires: 07/27/2023 [facility] Work Phone: Comment on above: Expected: 01/24/2023 (Approximate), Expires: 07/27/2023 Start: 01-24-2023 End: 07-27-2023 Iron and Iron binding capacity panel - Serum or Plasma IRON + TIBC Lab Routine Iron deficiency Expected: 01/24/2023 (Approximate), Expires: 07/27/2023 [facility] Work Phone: Comment on above: Expected: 01/24/2023 (Approximate), Expires: 07/27/2023 Start: 01-24-2023 [facility] Start: 10-28-2022 [facility] Start: 07-27-2022 End: 09-26-2022 CBC W Auto Differential panel - Blood CBC + DIFF Lab Routine Iron deficiency Expected: 07/27/2022 (Approximate), Expires: 09/26/2022 [facility] Work Phone: Comment on above: Expected: 07/27/2022 (Approximate), Expires: 09/26/2022 Start: 07-27-2022 End: 05-18-2023 Ferritin [Mass/volume] in Serum or Plasma FERRITIN BLD Lab Routine Iron deficiency Expected: 07/27/2022 (Approximate), Expires: 05/18/2023 [facility] Work Phone: Comment on above: Expected: 07/27/2022 (Approximate), Expires: 05/18/2023 Start: 07-27-2022 End: 05-18-2023 Iron and Iron binding capacity panel - Serum or Plasma IRON + TIBC Lab Routine Iron deficiency Expected: 07/27/2022 (Approximate), Expires: 05/18/2023 [facility] Work Phone: Comment on above: Expected: 07/27/2022 (Approximate), Expires: 05/18/2023 Start: 07-27-2022 End: 09-26-2022 RETIC COUNT RETIC COUNT Lab Routine Iron deficiency Expected: 07/27/2022 (Approximate), Expires: 09/26/2022 [facility] Work Phone: Comment on above: Expected: 07/27/2022 (Approximate), Expires: 09/26/2022 Start: 07-26-2022 [facility] Start: 07-11-2022 ADVANCE DIRECTIVE DISCUSSION ADVANCE DIRECTIVE DISCUSSION [facility] Start: 07-11-2022 DEPRESSION ASSESSMENT DEPRESSION ASS [employer] [facility] Start: 03-11-2022 Influenza vaccination INFLUENZA (#1) [facility] Start: 01-30-2022 COVID-19 VACCINE (5 - Booster for Pfizer series) COVID-19 VACCINE (5 - Booster for Pfizer series) [facility] Start: 07-11-2021 ADVANCE DIRECTIVE DISCUSSION ADVANCE DIRECTIVE DISCUSSION [facility] Start: 07-11-2021 DEPRESSION ASSESSMENT DEPRESSION ASS [employer] [facility] Start: 03-29-2019 PNEUMOCOCCAL: 65+ (2 - PCV) PNEUMOCOCCAL: 65+ (2 - PCV) [facility] Start: 11-15-2017 DIABETES SCREEN DIABETES SCREEN [facility] Start: 04-23-2016 PNEUMOCOCCAL: 65+ (2 - PCV) PNEUMOCOCCAL: 65+ (2 - PCV) [facility] Start: 2003 BONE DENSITY BONE DENSITY [facility] Start: 01-22-1988 SHINGRIX VACCINE (1 of 2) SHINGRIX VACCINE (1 of 2) [facility] Start: 1957 Urine microalbumin profile DTAP,TDAP,TD (1 - Tdap) [facility] Start: 1938 COVID-19 VACCINE (#1) COVID-19 VACCI NE (#1) [facility] Patient Education [facility] Work Phone: XR Knee - right 4 Views [facility] Immunizations Immunization Date Immunization Notes Care Provider Saurabh rico 04-26-2023 influenza, high dose seasonal, preservative-free Kvng Melgar Other [employer] Other 04-26-2023 influenza virus vaccine, unspecified formulation DO Kvng Melgar Work Phone: [facility] 10-19-2022 COVID-19 Pfizer (bivalent) Kvng Melgar Other [facility] 12-05-2021 COVID-19 Pfizer Kvng mac Other [facility] 12-05-2021 COVID-19 Vaccine Pfi zer - Documentation Purposes Only Kvng Melgar Other [facility] 04-14-2021 COVID-19 Vaccine Pfi zer - Documentation Purposes Only Kvng Melgar Other [facility] 04-06-2021 influenza virus vaccine, split virus (incl. purified surface antigen) Kvng Melgar Other [employer] [facility] Other 04-06-2021 influenza virus vaccine, unspecified formulation DO Kvng Melgar Work Phone: [facility] 04-06-2021 influenza, high-dose , quadrivalent vaccine (FLUZONE HIGH DOSE QUADRIVALENT) Mavis Santiago MD Work Phone: [facility] 08-27-2020 COVID-19 Vaccine Pfi zer - Documentation Purposes Only Kvng Melgar Other [facility] 08-04-2020 COVID-19 Vaccine Pfi zer - Documentation Purposes Only Kvng Melgar Other [facility] 04-04-2020 influenza virus vaccine, split virus (incl. purified surface antigen) Kvng Melgar Other [facility] Other 04-04-2020 influenza virus vaccine, unspecified formulation DO Kvng Melgar Work Phone: [facility] 04-04-2020 influenza, high-dose , quadrivalent vaccine (FLUZONE HIGH DOSE QUADRIVALENT) Mavis Santiago MD Work Phone: [facility] 04-18-2019 influenza, injectabl e, quadrivalent, preservative free Mavis Santiago MD Work Phone: [facility] 03-22-2019 Seasonal trivalent influenza vaccine, adjuvanted, preservative free Mavis Santiago MD Work Phone: [facility] 04-13-2018 influenza virus vaccine, split virus (incl. purified surface antigen) Kvng Melgar Other [facility] Other 04-13-2018 influenza virus vaccine, unspecified formulation DO Kvng Melgar Work Phone: [facility] 04-13-2018 Seasonal trivalent influenza vaccine, adjuvanted, preservative free Mavis Santiago MD Work Phone: [facility] 03-29-2018 pneumococcal polysaccharide vaccine, 23 valent Mavis Santiago MD Work Phone: [facility] 05-25-2017 Seasonal trivalent influenza vaccine, adjuvanted, preservative free Mavis Santiago MD Work Phone: [facility] 04-27-2016 influenza virus vaccine, split virus (incl. purified surface antigen) Kvng Melgar Other [facility] Other 04-27-2016 influenza virus vaccine, unspecified formulation DO Kvng Melgar Work Phone: [facility] 04-27-2016 influenza, high dose seasonal, preservative-free Mavis Santiago MD Work Phone: [facility] 04-23-2015 influenza, injectabl e, quadrivalent, preservative free Mavis Santiago MD Work Phone: [facility] 04-23-2015 pneumococcal polysaccharide vaccine, 23 valent Mavis Santiago MD Work Phone: [facility] 04-18-2015 influenza virus vaccine, split virus (incl. purified surface antigen) Kvng Melgar Other [facility] Other 04-18-2015 influenza virus vaccine, unspecified formulation DO Kvng Melgar Work Phone: [facility] 04-18-2015 pneumococcal conjuga te vaccine, 13 valent Kvng Melgar Other [facility] 05-21-2014 influenza, injectabl e, quadrivalent, contains preservative Adebayo Pan Other [facility] 04-26-2014 tetanus and diphther ia toxoids, adsorbed, preservative free, for adult use (5 Lf of tetanus toxoid and 2 Lf of diphtheria toxoid) Kvng Ermelinda Other [facility] 05-09-2013 pneumococcal polysaccharide vaccine, 23 valent Kvng Melgar Other [facility] 05-09-2013 tetanus and diphther ia toxoids, adsorbed, preservative free, for adult use (5 Lf of tetanus toxoid and 2 Lf of diphtheria toxoid) Kvng Melgar Other [facility] Payers Date Payer Category Payer Self-pay [id number] 2014 Private Health Insurance [id number] 2003 Medicare [id number] 2003 Unknown 1959 Medicare [id number] 1959 Private Health Insurance [id number] 1938 Unknown [id number] 2.16.84 [id number] 1938 Unknown [id number] 2.16.84 0.1.383461.3.579.2.593 1938 Unknown [id number] 2.16.84 0.1.951665.3.579.2.593 1938 Unknown [id number] 2.16.84 0.1.073256.3.579.2.593 1938 Unknown [id number] 2.16.84 0.1.060091.3.579.2.593 1938 Unknown [id number] 2.16.84 0.1.871608.3.579.2.593 1938 Unknown [id number] 2.16.84 0.1.361168.3.579.2.593 1938 Unknown [id number] 2.16.84 0.1.790775.3.579.2.593 1938 Unknown [id number] 2.16.84 0.1.298057.3.579.2.593 1938 Unknown [id number] 2.16.84 0.1.689486.3.579.2.1259 1938 Unknown [id number] 2.16.84 0.1.078332.3.579.2.1259 1938 Unknown [id number] 2.16.84 0.1.970438.3.579.2.1259 1938 Unknown [id number] 2.16.84 0.1.880965.3.579.2.1259 1938 Unknown [id number] 2.16.84 0.1.927406.3.579.2.1259 1938 Unknown [id number] 2.16.84 0.1.810385.3.579.2.1259 1938 Unknown [id number] 2.16. 840.1.775151.3.579.2.196 1938 Unknown [id number] 2.16. 840.1.323551.3.579.2.196 1938 Unknown [id number] 2.16. [id number] Medicare [id number] Unknown [id number] 2.16.8 [id number] Unknown [id number] 2.16.8 [id number] Social History Date Type Detail Facility Start: 01-03-2015 End: 05-27-2023 Tobacco smoking status NHIS Ex-smoker [facility] History of tobacco use Current smoker [facility] Start: 01-03-2015 Tobacco use and exposure Smokeless tobacco non-user [facility] Start: 05-17-2022 End: 07-27-2022 Alcohol intake Ex-drinker (finding) [facility] Start: 1940 Sex Assigned At Not on file C [facility] Start: 05-08-2022 End: 05-25-2022 Exposure to SARS-CoV-2 (event) Not sure [facility] Start: 07-26-2022 End: 10-28-2022 Tobacco smoking status MAIS Never smoked tobacco (finding) [facility] Start: 1940 Sex Assigned At Female F [facility] Sex Assigned At Sex Assigned At Bir th [facility] Other Goals Date Patient Goal Desired Activity /State Clinical Notes 11-28-2019 to 08-10-2023 Note Date & Type Note Facility 08-10-2023 Evaluation note Encounter Date Diagnosis Assessment Notes Jul, Epigastric pain (ICD-10 - R10.13) Jul, Constipation (ICD-10 - K59.00) Oct, Nausea (ICD-10 - R11.0) Nausea [facility] Other 12-11-2023 Evaluation note* Encounter Date Diagnosis Assessment Notes Treatment Notes Treatment Clinical Notes Jun, Lumbar spondylosis (ICD-10 - M47.816) [facility] Other 11-21-2023 Evaluation note* Encounter Date Diagnosis Assessment Notes Treatment Notes Treatment Clinical Notes May, Claustrophobia (ICD-10 - F40.240) [facility] Other 11-17-2023 Evaluation note* Encounter Date Diagnosis [...] May, Other specified hypothyroidism (ICD-10 - E03.8) [facility] Other 11-10-2023 Evaluation note* Encounter Date Diagnosis Assessment Notes Treatment Notes Treatment Clinical Notes May, Lumbar spondylosis (ICD-10 - M47.816) [facility] Other 09-13-2023 Evaluation note* Encounter Date Diagnosis Assessment Notes Treatment Notes Treatment Clinical Notes Mar, Chronic superficial gastritis with bleeding (ICD-10 - K29.31) [facility] Other 08-25-2023 Evaluation note* Encounter Date Diagnosis Assessment Notes Treatment Notes Treatment Clinical Notes Feb, Allergic contact dermatitis due to plants, except food (ICD-10 - L23.7) Cool compresses, topical steroids and begin Prednisone. _update on Feb, Cellulitis of left upper extremity (ICD-10 - L03.114) Elevate and begin antibiotics, update on Tuesday [facility] Other 08-15-2023 Evaluation note* Encounter Date Diagnosis [...] exercise for 30 minutes, 3-5 times weekly. [facility] Other 08-14-2023 Evaluation note* Encounter Date Diagnosis Assessment Notes Treatment Notes Treatment Clinical Notes Feb, Lumbar spondylosis (ICD-10 - M47.816) [facility] Other 06-20-2023 Evaluation note* Encounter Date Diagnosis Assessment Notes Treatment Notes Treatment Clinical Notes Dec, Autoimmune thyroiditis (ICD-10 - E06.3) [facility] Other 05-12-2023 Evaluation note* Encounter Date Diagnosis Assessment Notes Treatment Notes Treatment Clinical Notes November, Lumbar spondylosis (ICD-10 - M47.816) [facility] Other 05-11-2023 Evaluation note* Encounter Date Diagnosis [...] E03.8) November, Lumbar spondylosis (ICD-10 - M47.816) [facility] XR HIP LT 2 [...] Electronically authenticated by: ANTHONY GUIDRY Date: 2022-10-20 15:40[facility]04-04-2023 Evaluation note* Encounter Date Diagnosis Assessment Notes [...] mammogram for breast cancer (ICD-10 - Z12.31) [facility] Other 01-17-2023 NoteHNO ID: [id number] Author: Mavis Santiago MD Service: ? Author Type: Physician Type: Progress Notes Filed: 07/27/2022 2:56 PM Note Text: PATIENT NAME: Tangela Trinidad CLINIC NO.: [id number] ATTENDING PHYSICIAN: Mavis Santiago MD DATE OF [...] Status 07/27/2022 18.0 (H) (more content not included)...[facility] 07-27-2022 History of Present illness Narrative* Mavis Santiago MD - 07/27/2022 2:48 PM EST PATIENT NAME: Tangela Trinidad [facility] NO.: [id number] ATTENDING PHYSICIAN: Mavis Santiago MD DATE OF [...] 07/27/2022 3.25 1.00 - 4.00 k/uL Final Walsh% Date Value Ref Range Status 07/27/2022 14.0 % Final Abs Walsh Date Value Ref Range Status 07/27/2022 1.25 [...] do not hesitate to contact me at [phone]. Mavis Santiago MD Hematology/Medical Oncology [facility] I spent a total of 20 minutes on the date of the service which included preparing to see the patient, mhby-po-ympb patient care, completing clinical documentation, obtaining and/or reviewing separately obtained history, performing a medically appropriate examination, counseling and educating the pat ient/family/caregiver, and ordering medications, tests, or procedures. CC: Kvng Melgar DO documented in this encounterBarney [facility]01-16-2023 Evaluation note* Encounter Date Diagnosis Assessment Notes Treatment Notes Treatment Clinical Notes Jul, Acute gastric ulcer without hemorrhage or perforation (ICD-10 - K25.3) [facility] Other [id number] [facility]* Encounter Date Diagnosis [...] Healty diet, keep active, consistent sleep routine [facility] Other [id number] NoteHNO ID: [id number] Author: MONY Mart Service: ? Author Type: Water Systems Designer Type: Progress Notes Filed: 06/02/2022 3:17 PM Note Text: Patient appears on the First Time Treatment List for a non-oncology treatment. No psychosocial assessment is indicated. KAYLEY Mart-[facility]11-23-2022 History of Present illness Narrative* MONY Mart - 06/02/2022 3:16 PM EST Patient appears on the First Time Treatment List for a non-oncology treatment. No psychosocial assessment is indicated. KAYLEY Mart-Aida documented in this encounterBarney [facility]11-15-2022 Miscellaneous Notes* Telephone Encounter - Mohit Lo [facility] - 05/25/2022 3:32 PM EST 1st report of treatment-non oncology regimen ([employer]) Patient holds Medicare coverage. No FA available at this time. documented in this encounterBarney [facility] Center11-08-2022 NoteHNO ID: [id number] Author: Mavis Santiago MD Service: ? Author Type: Physician Type: Progress Notes Filed: 05/18/2022 4:08 PM Note Text: PATIENT NAME: Tangela Trinidad [facility] NO.: [id number] ATTENDING PHYSICIAN: Mavis Santiago MD DATE OF [...] Final Lymph% Date Va (more content not included)...[facility]11-08-2022 History of Present illness Narrative* Mavis Santiago MD - 05/18/2022 3:51 PM EST PATIENT NAME: Tangela Trinidad CLINIC NO.: [id number] ATTENDING PHYSICIAN: Mavis Santiago MD DATE OF [...] 05/11/2018 2.74 1.00 - 4.00 k/uL Final Walsh% Date Value Ref Range Status 05/11/2018 12.1 % Final Abs Walsh Date Value Ref Range Status 05/11/2018 1.12 [...] do not hesitate to contact me at [phone]. Mavis Santiago MD Hematology/Medical Oncology [facility] I spent a total of 30 minutes on the date of the service which included preparing to see the patient, rsup-fo-mzwd patient care, completing clinical documentation, obtaining and/or reviewing separately obtained history, performing a medically appropriate examination, counseling and educating the pat ient/family/caregiver, and ordering medications, tests, or procedures. Medical Decision Making: Medical Decision Making Level: 1 - N/A CC: Kvng Melgar DO documented in this encounterBarney Children'S [facility] Center11-19-2020 Progress note Author Nicho Salcedo [facility] May 29, 2020 11:30am Note Date/Time May 29, 2020 11:29am [facility] [place] [address] Hem/Onc Follow Up Note - OP Signed Patient: Tangela Trinidad MR#: [id number] : 1940 Acct:[id number] Age/Sex: 80 / F Type: REG RCR [...] Rash Penicillins Allergy (Verified 11/28/19 10:23) Hives Tnbsoou-Jpn-Pca Reductase Inhibitor Allergy (Verified 11/28/19 10:23) Unknown [...] Neut % (Auto) 50.8,Lymph % (Auto) 30.1, Walsh % (Auto) 14.9, Eos % (Auto) 3.3, Baso % (Auto) 0.9, Neut # (Auto) 4.4, Lymph # (Auto) 2.6, Walsh # (Auto) 1.3 H, Eos # (Auto) [...] for coordination of care (as documented) and ksxp-ch-aljk counseling of patient and/or family. Dictated By: Nicho Salcedo MD DD/ [id number] Signed By: <Electronically signed by MD Nicho Salcedo> 05/29/20 1130 [facility] Work Phone: [phone]) 947-786105-20-2020 Progress note Author Nicho Salcedo [facility] November 28, 2019 12:52pm Note Date/Time November 28, 2019 12:50 pm [facility] at [address] [address] Hem/Onc Follow Up Note - OP Signed Patient: Tangela Trinidad MR#: [id number] : 1940 Acct:[id number] Age/Sex: 79 / F Type: REG RCR Copies to: Kvng Ermelinda,DO SELF,REFERRAL ~ Subjective Date/Time of Service: Date [...] Rash Penicillins Allergy (Verified 11/28/19 10:23) Hives Krmckpb-Kjx-Wvm Reductase Inhibitor Allergy (Verified 11/28/19 10:23) Unknown [...] Neut % (Auto) 49.9,Lymph % (Auto) 27.3, Walsh % (Auto) 15.1, Eos % (Auto) 6.5, Baso % (Auto) 1.2, Neut # (Auto) 4.3, Lymph # (Auto) 2.4, Walsh # (Auto) 1.3 H, Eos # (Auto) [...] for coordination of care (as documented) and jstm-fh-uqmh counseling of patient and/or family. Dictated By: Nicho Salcedo MD DD/ 1245 Signed By: <Electronically signed by MD Nicho Salcedo> 11/28/19 1253 [facility] Work Phone: Evaluation note* Diagnosis Iron deficiency- Primary Iron deficiency anemia, unspecified [facility] Diagnosis Iron deficiency anemia, unspecified iron deficiency anemia type- Primary Iron deficiency Iron deficiency anemia, unspecified documented in this encounter [facility] CenterEvalubay[facility]* Diagnosis Iron deficiency- Primary Iron deficiency anemia, unspecified documented in this encounter [facility] CenterEvaluation noteNo assessment information availableGuernsey [facility]tr Work Phone: Evaluation noteNo InformationNort Taodangpu Other Evaluation note* Diagnosis Onset Date Resolution [...] acute Medicare annual wellness visit, subsequent noneactive [facility] Work Phone: History and physical note Author Jeyson Diaz [facility] July 26, 2022 8:09am Note Date/Time July 26, 2022 8 :09am [facility] [address] [place] [address] Gastroenterology H&P Signed Patient: Tangela Trinidad MR#: [id number] : 1940 Acct:[id number] Age/Sex: 82 / F Adm Date: 3 Loc: Room: Type: [facility] Attending Dr: Jeyson Diaz MD Copies to: [...] signed by Jeyson Diaz MD> 07/26/22808 [facility] Work Phone: History and physical note Author Jeyson Diaz [facility] October 28, 2022 1:13pm Note Date/Time October 28, 2022 1:1 3pm [facility] [address] [place] [address] Gastroenterology H&P Signed Patient: Tangela Trinidad MR#: [id number] : 1940 Acct:[id number] Age/Sex: 82 / F Adm Date: 3 Loc: Room: Type: [facility] Attending Dr: Jeyson Diaz MD Copies to: [...] by Jeyson Diaz MD> 10/28/22 1313 [facility] Work Phone: History general Narrative - Reported* Type Description Date Medical History Cervical spondylosis Medical History Vitamin D deficiency Medical History Hyponatremia Medical History [place] Medical History Fatigue Medical History Depression screening Medical History Encounter for screening breast e xamination Medical History Leukocytosis Medical History 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 Medical History Essential hypertension Medical History [...] History colonoscopy 07/26/22 Hospitalization History see above [facility] Other [facility] general Narrative - Reported* Type Description Date Medical History Cervical spondylosis Medical History Vitamin D deficiency Medical History Hyponatremia Medical History [place] Medical History Fatigue Medical History Depression screening Medical History Encounter for screening breast e xamination Medical History Leukocytosis Medical History Chronic phqg-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 Medical History Essential hypertension Medical History [...] w/ biopsy 10/2022 Hospitalization History see above [facility] Other Hisbfrm general Narrative - Reported* Type Description Date Medical History Cervical spondylosis Medical History Vitamin D deficiency Medical History Hyponatremia Medical History [place] Medical History Fatigue Medical History Depression screening Medical History Encounter for screening breast e xamination Medical History Leukocytosis Medical History Chronic sjqb-LEVIZ-14 syndrome Medical History Essential hypertension Medical History [...] bacterial endocarditis Medical History Irritable bowel synd viaeny with both constipation and diarrhea Medical History [...] History EGD 01/2023 Hospitalization History see above [facility] Other Hospital Discharge instructions Additional Instructions DISCHARGE [...] -Follow up with PCP. - Office number [phone]. [facility] Work Phone: Hospital Discharge instructions Additional [...] NOT operate machinery such as power tools, [employer] mowers, snow blowers, sewing machines, etc. for [...] problems. -Follow up with PCP. -Office number [phone]. [facility] Work Phone: Hospital Discharge instructions Additional [...] problems. -Follow up with PCP. -Office number [phone]. [facility] Work Phone: Summary Purpose Family History No [...] DATE CREATED AUTHOR AUTHOR'S ORGANIZ ATION 08/04/2022 [facility] DATE CREATED AUTHOR AUTHOR'S ORGANIZ ATION 11/10/2022 [facility] DATE CREATED AUTHOR AUTHOR'S ORGANIZ ATION 03/25/2024 [facility] DATE CREATED AUTHOR AUTHOR'S ORGANIZ ATION 03/31/2024 [facility] EPIC DATE CREATED AUTHOR AUTHOR'S ORGANIZ ATION 05/09/2024 [facility] Source Comments (unrecognize d section and content) In the event this informatio n is protected by the Federal Confidentiality of Alcohol and Drug Abuse Patient Records regulations: The Federal rules restrict any use of the information to criminally investigate or prosecute any alcohol or drug abuse patient.[facility] Medical CenterIn the event this information is protected by the Federal Confidentiality of Alcohol and Drug Abuse Patient Records regulations: The Federal rules restrict any use of the information to criminally investigate or prosecute any alcohol or drug abuse patient.[facility] CenterIn the event this information is protected by the Federal Confidentiality of Alcohol and Drug Abuse Patient Records regulations: The Federal rules restrict any use of the information to criminally investigate or prosecute any alcohol or drug abuse patient.[facility] CenterIn the event this information is protected by the Federal Confidentiality of Alcohol and Drug Abuse Patient Records regulations: The Federal rules restrict any use of the information to criminally investigate or prosecute any alcohol or drug abuse patient.[facility] CenterIn the event this information is protected by the Federal Confidentiality of Alcohol and Drug Abuse Patient Records regulations: The Federal rules restrict any use of the information to criminally investigate or prosecute any alcohol or drug abuse patient.[facility] CenterIn the event this information is protected by the Federal Confidentiality of Alcohol and Drug Abuse Patient Records regulations: The Federal rules restrict any use of the information to criminally investigate or prosecute any alcohol or drug abuse patient.[facility] Care Teams (unrecognized sec tion and content) Team Status: Active Member Role Status Dates Kvng Melgar , Primary Care Provider Active Team Status: Inactive Member Role Status Dates Kvng Melgar , DO Primary Care Provider Active Jeyson Diaz MD Attending Provider Active [employer] Relationship Specialty Start Date End Date Kvng Melgar, DO PCP - General Internal Medicine 11/14/14 [employer] Relationship Specialty Start Date End Date Kvng Melgar, DO PCP - General Internal Medicine 11/14/14 [employer] Relationship Specialty Start Date End Date Kvng Melgar, DO PCP - General Internal Medicine 11/14/14 Department [employer] Relationship Specialty Start Date End Date Kvng Melgar, DO PCP - General Internal Medicine 11/14/14 Department [employer] Relationship Specialty Start Date End Date Kvng Melgar, DO PCP - General Internal Medicine 11/14/14 Department [employer] Relationship Specialty Start Date End Date Kvng [...] anemia type Iron deficiency Mavis Santiago MD [employer] [place] [address] Damon Treat [address] [place] [address] Referral ID Status Reason Start Date Expiration Date V isits Requested Visits Authorized [id number] Authorized 05/18/2022 08/16/2022 99 99 Reason Comments [...] BE BASED ON THE PRIMARY CLINICAL RECORDS. [employer] provides no warranty or guarantee of the accuracy or completeness of information in this document.
--- NOTE | 2024-05-12 09:41 | ED.GENADUL1 ---
HPI HPI - General Adult General Chief complaint: Weakness Stated complaint: WEAKNESS Time Seen by Provider: 05/12/24 09:21 Source: patient Mode of arrival: ambulance Limitations: no limitations History of Present Illness HPI narrative: The patient is coming to us with generalized weakness that she noted this morning when she woke up, she is denying any specific pain any headache nausea vomiting chest pain or any other concerns and also the weakness in her upper and lower extremities generally The patient only changes that she started taking Lyrica last night The patient also takes tramadol for the pain Related Data Home Medications ?Medication ?Instructions ?Recorded ?Confirmed amlodipine 5 mg tablet 5 mg PO DAILY 04/02/24 05/12/24 atenolol 25 mg tablet 25 mg PO DAILY 04/02/24 05/12/24 cholecalciferol (vitamin D3) 10 800 unit PO DAILY 04/02/24 05/12/24 mcg (400 unit) capsule levothyroxine 112 mcg tablet 112 mcg PO DAILY 04/02/24 05/12/24 multivitamin (Daily Multi-Vitamin 1 tab PO DAILY 04/02/24 05/12/24 tablet) pantoprazole 40 mg tablet,delayed 40 mg PO DAILY 04/02/24 05/12/24 release tramadol 50 mg tablet 50 mg PO DAILY 04/02/24 05/12/24 eipkcuy-iytgilqnmripb-eihlpxrk 250 1 tab PO Q6H PRN pain 04/23/24 05/12/24 mg-250 mg-65 mg tablet (Excedrin Extra Strength) gabapentin 100 mg capsule 200 mg PO BID 05/03/24 05/12/24 pregabalin 50 mg capsule 50 mg PO DAILY 05/12/24 05/12/24 Allergies Allergy/AdvReac Type Severity Reaction Status Date / Time Penicillins Allergy Unknown Unknown Verified 04/09/24 10:11 Sulfa (Sulfonamide Allergy Unknown Unknown Verified 04/09/24 10:11 Antibiotics) vancomycin Allergy Unknown Unknown Verified 04/09/24 10:11 STATINS Allergy Unknown Unknown Uncoded 04/09/24 10:11 Opioid HPI Opioid Management Most Recent Opioid Data: Last Pain Scale 7 04/23/24 11:27 04/23/24 Review of Systems ROS Status of ROS 10 or more systems reviewed and unremarkable except as noted in history and below [facility] Medical History (Updated 05/12/24 @ 11:02 by Trish Feng MD) Cystocele with rectocele ?N81.10 - Cystocele, unspecified (ICD-10) ?N81.6 - Rectocele (ICD-10) Anemia ?D64.9 - Anemia, unspecified (ICD-10) Hearing deficit ?H91.90 - Unspecified hearing loss, unspecified ear (ICD-10) Stomach ulcer ?K25.9 - Gastric ulcer, unspecified as acute or chronic, without hemorrhage or perforation (ICD-10) History of hypothyroidism ?Z86.39 - Personal history of other endocrine, nutritional and metabolic disease (ICD-10) High blood cholesterol level ?E78.00 - Pure hypercholesterolemia, unspecified (ICD-10) Angina at rest ?I20.89 - Other forms of angina pectoris (ICD-10) High blood pressure ?I10 - Essential (primary) hypertension (ICD-10) Surgical History History of blepharoplasty ?Z98.890 - Other specified postprocedural states (ICD-10) History of total right knee replacement ?Z96.651 - Presence of right artificial knee joint (ICD-10) History of hysterectomy ?Z90.710 - Acquired absence of both cervix and uterus (ICD-10) History of lumbar fusion ?Z98.1 - Arthrodesis status (ICD-10) History of fusion of cervical spine ?Z98.1 - Arthrodesis status (ICD-10) History of appendectomy ?Z90.49 - Acquired absence of other specified parts of digestive tract (ICD-10) Exam Narrative Exam Narrative: Nurses notes and vital signs reviewed and patient is not hypoxic. General: Well-appearing and in no apparent distress. Skin: Warm, dry, no pallor noted. No rash. Head: Normocephalic, atraumatic. Neck: Supple, non-tender. Eye: Pupils are equal, round and EOMI. No scleral icterus. Ears, Nose, Mouth, and Throat: TM are clear, no nasal mucosal hypertrophy. Oral mucosa is moist, no posterior oropharynx erythema, uvula is mid-line Cardiovascular: Regular Rate and Rhythm without murmur, gallop or rub. Respiratory: No accessory muscle use or respiratory distress. Lungs are clear to auscultation, no wheezing, rales or rhonchi Chest Wall: no tenderness Back: No midline thoracic or lumbar vertebral tenderness. No CVA tenderness Musculoskeletal: normal ROM, no calf or popliteal tenderness, no lower extremity edema/swelling GI: Abdomen is soft, non-distended. Normal bowel sounds. No masses appreciated. No tenderness to palpation. No rebound, guarding, or rigidity noted. Neurological: A&O x4. No cranial nerve dysfunction observed. No truncal ataxia. Moves all extremities. But the patient is not able to raise her upper and lower extremity against gravity due to weakness Psychiatric: Cooperative and interactive. Normal mood and affect. Constitutional Vital Signs, click to edit/add: Last Vital Signs Temp 97.8 F 05/12/24 09:17 Pulse 66 05/12/24 09:20 Resp 14 05/12/24 09:20 BP 149/89 H 05/12/24 09:17 Pulse Ox 98 05/12/24 09:20 O2 Del Method Room Air 05/12/24 09:17 Course Vital Signs Vital signs: Vital Signs Blood Pressure 157/85 H 05/12/24 09:16 Temperature 97.8 F 05/12/24 09:17 Pulse Rate 66 05/12/24 09:20 Respiratory Rate 14 05/12/24 09:20 Blood Pressure 149/89 H 05/12/24 09:17 Pulse Oximetry 98 05/12/24 09:20 Oxygen Delivery Method Room Air 05/12/24 09:17 Medical Decision Making [facility] Narrative Medical decision making narrative: Other than generalized weakness the patient examination was benign but she was not able to get up and go to the bathroom she needed a bedpan to urinate in the ER The patient CBC and chemistry showed no acute pathology The patient urinalysis showed no UTI CT head showed no acute pathology as well She also had a COVID and flu test ordered Right now the patient presented to us with her generalized weakness, I did explain to her that right now the workup in the ER is negative but her presentation could be secondary to Lyrica as she just started taking this medication and it does interact with tramadol. Initially the patient was willing to go home if her kids will help her but the kids were at the bedside and they expressed that they do want to take care of her at home Eventually the patient was agreeable to be admitted as she is not able to get up and go to the bathroom by herself or take care of herself Patient is elderly and he is not able to take care of her ,he did not present to the bedside The patient case was discussed with and he agreed with above-mentioned plan Lab Data Labs: Lab Results 05/12/24 05/12/24 Range/Units 09:19 09:42 WBC 7.9 (4.0-11.0) 10^3/uL RBC 4.91 (4.20-5.40) 10^6/uL Hgb 15.0 (12.0-16.0) g/dL Hct 44.4 (36.0-48.0) % MCV 90.4 (81.0-99.0) fL MCH 30.5 (26.7-34.0) pg MCHC 33.8 (29.9-35.2) g/dL RDW 13.0 (11.0-15.0) % Plt Count 318 (150-450) 10^3/uL MPV 10.5 (9.5-13.5) fL Neut % (Auto) 38.6 L (43.0-75.0) % Lymph % (Auto) 43.6 (20.5-60.0) % [place] % (Auto) 14.1 H (1.7-12.0) % Eos % (Auto) 2.6 (0.9-7.0) % Baso % (Auto) 0.6 (0.2-2.0) % Neut # (Auto) 3.1 (1.4-6.5) 10^3/uL Lymph # (Auto) 3.5 (1.2-3.8) 10^3/uL [place] # (Auto) 1.1 H (0.3-0.8) 10^3/uL Eos # (Auto) 0.2 (0.0-0.7) 10^3/uL Baso # (Auto) 0.1 (0.0-0.1) 10^3/uL Abs Immat Gran (auto) 0.04 H (0.00-0.03) 10^3/uL Imm/Tot Granulo (auto) 0.5 (0.0-0.5) % PT 10.0 (9.0-11.6) sec INR 0.94 Sodium 136 (136-145) mmol/L Potassium 3.9 (3.5-5.1) mmol/L Chloride 100 (98-107) mmol/L Carbon Dioxide 27.1 (21.0-32.0) mmol/L Anion Gap 12.8 BUN 11.0 (7.0-18.0) mg/dL Creatinine 0.94 (0.55-1.02) mg/dL Est GFR ( Amer) >60 (>=60 mL/min/1.73m^2) Est GFR (Non-Af Amer) 56 L (>=60 mL/min/1.73m^2) BUN/Creatinine Ratio 11.7 Glucose 92 (74-106) mg/dL Calcium 9.3 (8.5-10.1) mg/dL Total Bilirubin 0.6 (0.2-1.0) mg/dL AST 26 (15-37) U/L ALT 29 (14-59) U/L Alkaline Phosphatase 71 (46-116) U/L Troponin I High Sens <4.0 L (4.0-51.3) pg/mL Total Protein 7.6 (6.4-8.2) g/dL Albumin 3.7 (3.4-5.0) g/dL Globulin 3.9 g/dL Albumin/Globulin Ratio 0.9 Urine Color Lt. yellow (YELLOW) Urine Clarity Clear (CLEAR) Urine pH 7.0 (5.0-9.0) Ur Specific [place] 1.010 (1.005-1.025) Urine Protein Negative (NEG/TRACE) mg/dL Urine Glucose (UA) Negative (NEGATIVE) mg/dL Urine Ketones Negative (NEGATIVE) mg/dL Urine Occult Blood Negative (NEGATIVE) Urine Nitrite Negative (NEGATIVE) Urine Bilirubin Negative (NEGATIVE) Urine Urobilinogen 0.2 (0.2-1.0) EU/dL Ur Leukocyte Esterase Negative (NEGATIVE) Discharge Plan Discharge Chief Complaint: Weakness Clinical Impression: Generalized muscle weakness Patient Disposition: Admitted as Observation Time of Disposition Decision: 11:02
[2024-05-12 09:54] LABS: INR 0.94
[2024-05-12 09:58] LABS: Basophils Absolute Auto 0.1 10^3/uL (0.0-0.1); Basophils Percent Auto 0.6 % (0.2-2.0); Eosinophils Absolute Auto 0.2 10^3/uL (0.0-0.7); Eosinophils Percent Auto 2.6 % (0.9-7.0); Hematocrit 44.4 % (36.0-48.0); Immature Granulocytes Abs Auto 0.04 10^3/uL (0.00-0.03); Immature Granulocytes Pct Auto 0.5 % (0.0-0.5); Lymphocytes Absolute Auto 3.5 10^3/uL (1.2-3.8); Lymphocytes Percent Auto 43.6 % (20.5-60.0); Mean Corpuscular HGB Conc 33.8 g/dL (29.9-35.2); Mean Corpuscular Hemoglobin 30.5 pg (26.7-34.0); Mean Corpuscular Volume 90.4 fL (81.0-99.0); Mean Platelet Volume 10.5 fL (9.5-13.5); Monocytes Absolute Auto 1.1 10^3/uL (0.3-0.8); Monocytes Percent Auto 14.1 % (1.7-12.0); Neutrophils Absolute Auto 3.1 10^3/uL (1.4-6.5); Neutrophils Percent Auto 38.6 % (43.0-75.0); Platelet Count 318 10^3/uL (150-450); Red Blood Count 4.91 10^6/uL (4.20-5.40); White Blood Count 7.9 10^3/uL (4.0-11.0)
[2024-05-12 09:59] LABS: Bilirubin Urine NEGATIVE (NEGATIVE); Blood Urine NEGATIVE (NEGATIVE); Clarity Urine CLEAR (CLEAR); Color Urine LT. YELLOW (YELLOW); Glucose Urine UA NEGATIVE (NEGATIVE); Ketones Urine NEGATIVE (NEGATIVE); Leukocyte Esterase Urine NEGATIVE (NEGATIVE); Nitrite Urine NEGATIVE (NEGATIVE); Protein Urine NEGATIVE (NEG/TRACE); Urobilinogen Urine 0.2 EU/dL (0.2-1.0)
[2024-05-12 10:01] LABS: Urine Microscopic Indicated NO
[2024-05-12 10:06] LABS: Alanine Aminotransferase 29 U/L (14-59); Albumin Globulin Ratio 0.9; Albumin Level 3.7 g/dL (3.4-5.0); Alkaline Phosphatase 71 U/L (46-116); Anion Gap 12.8; Aspartate Amino Transferase 26 U/L (15-37); BUN Creatinine Ratio 11.7; Bilirubin Total 0.6 mg/dL (0.2-1.0); Calcium 9.3 mg/dL (8.5-10.1); Carbon Dioxide 27.1 mmol/L (21.0-32.0); Chloride 100 mmol/L (98-107); Estimated GFR (African America >60 (>=60 mL/min/1.73m^2); Estimated GFR (Non-African Ame 56 (>=60 mL/min/1.73m^2); Globulin 3.9 g/dL; Glucose 92 mg/dL (74-106); Potassium 3.9 mmol/L (3.5-5.1); Sodium 136 mmol/L (136-145); Total Protein 7.6 g/dL (6.4-8.2); Troponin I High Sensitivity <4.0 pg/mL (4.0-51.3)
[2024-05-12 11:11] LABS: Influenza Virus A Antigen Negative; Influenza Virus B Antigen Negative; Internal Control Within Normal Limits
[2024-05-12 11:12] LABS: Internal Control Within Normal Limits; SARS-CoV-2 Ag NEGATIVE (NEGATIVE)
--- OUTSIDE RECORDS SUMMARY | 2024-05-12 11:43 | XMS_ITS | CCD ---
Author Organization [facility] Care Team Providers Care Director Of Grants Name Role Phone Doctor, No Unavailable Unavailable Doctor, No Unavailable Unavailable Donnell Barton Unavailable Unavailable Donnell Barton Unavailable Unavailable Kvng Melgar DO Primary Care Provider Kvng Melgar DO Primary Care Provider DO Kvng Melgar Primary Care Provider [phone] MD Jeyson Diaz Attending Provider KVNG MELGAR [...] Care Provider MD Joe Imprice Attending Provider [phone] Ermelinda, DO Calderon Primary Care Provider MD Joe Imprice Attending Provider [phone] Ermelinda, DO Calderon Primary Care Provider DO Lorelei Hurtado Attending Provider [phone] Kvng Melgar Primary Care Unavailable Lorelei Hurtado [...] (disorder) 11-16-19 15 AOF, Hives, Hives, PENICILLINS [facility] Repository (8 sources) Sulfonamides (Antibiotic); Translations: [SULFA (SULFONAMIDE ANTIBIOTICS)] Drug allergy (disorder) 11-16-19 15 AOF, Hives, Hives, Comment:2005 [facility] Repository (7 sources) Puwekuf-Uch-Ecw Reductase Inhibitor Drug allergy (disorder) 01-06-20 18 Unknown Reaction, Unknown Reaction, muscle aches [facility] Repository (20 sources) Cephalosporins (Antibiotic); Translations: [CEPHALOSPORINS] Drug Allergy 10-24-[address] [facility] (7 sources) HMG-CoA reductase inhibitor; Translations: [CSBXFLZ-GSQ-BIM REDUCTASE INHIBITORS] Drug Allergy 01-06-[address] [facility] (7 sources) Nitrofurantoin; Translations: [NITROFURANTOIN MACROCRYSTAL] Drug Allergy 10-12-19 19 Rash, Itching [facility] (6 sources) Penicillins Drug Allergy 11-16-19 15 [facility] (20 sources) Povidone-Iodine; Translations: [POVIDONE-IODINE] Drug Allergy 06-21-[address] [facility] (20 sources) Sulfonamides (Antibiotic) Drug Allergy 11-16-19 15 [facility] (20 sources) Vancomycin; Translations: [VANCOMYCIN] Drug Allergy 10-12-19 19 Rash, Itching [facility] (20 sources) Nitrofurantoin; Translations: [nitrofurantoin] Drug Allergy 12-02-19 21 rash [facility] (20 sources) Penicillin G Benzathine Drug allergy rash [facility] Other (20 sources) Sulfacetamide / Sulfur Drug Allergy rash [facility] Other (20 sources) Statins Depletion Drug allergy muscle aches [facility] [employer] Other (1 source) black walnut pollen extract Drug Allergy 05-17-20 14 [facility] Repository (1 source) Cephalosporins (Antibiotic) Drug allergy (disorder) 10-24-19 15 [facility] Repository (2 sources) Nitrofurantoin Drug Allergy 10-24-19 15 rash [facility] Repository (1 source) Penicillins Drug allergy (disorder) 01-24-20 13 [facility] Repository (2 sources) Povidone-Iodine Drug Allergy 06-21-20 19 Unknown [facility] Repository (1 source) Sulfonamides (Antibiotic) Drug allergy (disorder) 01-31-20 13 [facility] Repository (1 source) Vancomycin Drug Allergy 10-24-19 15 [facility] Repository (20 sources) Statins Depletion *DIETARY PRODUCTS/DIETARY MANAGE Propensity to adverse reactions Unknown [facility] Other (20 sources) Substance with penicillin structure and antibacterial mechanism of action (substance) Drug allergy 04-30-20 06 PENICILLINS [facility] Other (20 sources) Sulf-10 Drug allergy 12-01-19 06 SULFA 10 [facility] Other (1 source) Vancomycin Drug Allergy rash [facility] Other (1 source) Cephalosporins (Antibiotic) Drug allergy (disorder) 03-16-20 [facility] Repository (1 source) Povidone-Iodine Drug Allergy 03-16-20 [facility] Repository (1 source) Vancomycin Drug Allergy 03-16-20 [facility] Repository Medications Current Medications Medication Drug [...] by mouth every four to six hours Lsdfgax-Ehlynciqabjgt-Hurwpfos (Excedrin Migraine) 250-250-65 mg Tablet Active 1 TAB PO EVERY 4-6 HOURS July 26, 2022 1:00am take 2 tablets by mouth every si x hours Excedrin Migraine 250-250-65 MG 2 tablets as needed Orally every 6 hrs Active [id number] actuat albuterol 0.09 mg/actuat metered dose [...] DAYS Start: 12-28-2022 [facility] daily in the morning [...] sources) Multivitamin Act kerri Multivitamin Not -Taking Bellevue 3 1200 MG (20 sources) take 1 capsule by [facility] daily Bellevue 3 1200 MG 1 capsule Orally Once a day Active take 1 capsule by mouth once taniya ly Bellevue 3 1200 MG 1 capsule Orally Once [...] needed Orally every 6 hrs Not-Taking Vit C,A-Ak-Hwvmo-Lutein-Zeax an (Preservision Areds-2) 250-90-40-1 mg Capsule (5 sources) Start: 07-26-2022 Vit C,M-Dw-Vlzdb-Lutein-Zeax an (Preservision Areds-2) 250-90-40-1 mg Capsule Active 1 TAB PO Twice daily July 26, 2022 1:00am Start: 07-26-2022 Vit C,E-Zn-Scientific Aide zn-Yovdfw-Khkgye (Preservision Areds-2) 250-90-40-1 mg Capsule Active 1 [...] Comment on above: Take by mouth. CA/D3/MAG OX/ZINC/LOBBY CONCIERGE/MEREDITH/ BOR (CALCIUM 600+D3 PLUS ORAL) (6 sources) take 1200 mg by mouth once daily CA/D3/MAG OX/ZINC/LOBBY CONCIERGE/MEREDITH/B OR (CALCIUM 600+D3 PLUS ORAL) Take 1,200 mg by mouth once daily. 0 Active Comment on above: Take 1,200 mg [facility]. celecoxib 100 mg [...] mg by mouth twice daily. 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 [place] [address] CT Scan Report Signed Patient: Tangela Trinidad MR#: [id number] : 1940 Acct:[id number] Age/Sex: 84 / F ADM Date: 03/16/24 Loc: CT Room: Type: [facility] Attending Dr: Lorelei Hurtado DO Copies [...] Viveros Jr., D.OOrlin03/16/2024 2:09 PM Dictation Location: [place] [address] Transcribed By: [facility] 03/16/24 1409 Dictated By: Bert Viveros Jr, DO 03/16/24 1403 Signed By: 03/16/24 140 Normal [facility] Creatinineon 03-16-2024 GFR/1.73 sq M.predicted MDRD (S/P/Bld) [Vol rate/Area] mL/min/{1.73_m2} Normal [facility] Comment on above: Result Comment: PERF ORMED BY: [place] [address] PATHOLOGIST AUTOMATIC FURNACE OPERATOR SPEEDY GRAY M.D. Performed By: #### C REAT #### [facility] [address] [place] [address] Creatinine [Mass/volume] in Serum or PlasmaOrdered By: Lorelei Hurtado on 03-16-2024 Creatinine [Mass/Vol] 0.83 mg/dL Normal 0.60-1.20 [facility] Comment on above: Performed By: #### C REAT #### [facility] [address] [place] [address] No Panel InformationOrdered By: Lorelei Hurtado on 03-16-2024 Estimated GFR (CKD-EPI) > 60.0 mL/Min [facility] Creatinine Clearance (Chem N/A [facility] NM gastric emptying studyon 07-25-2023 NM gastric emptying study [facility] [place] [address] [place] [address] Nuclear Medicine Report Signed Patient: Tangela Trinidad MR#: [id number] : 1940 Acct:[id number] Age/Sex: 83 / F ADM Date: 07/25/23 Loc: [place] Room: Type: [facility] Attending Dr: Jeyson Diaz MD Copies [...] Matt Feldman M.D.07/25/2023 9:40 AM Dictation Location: [place] [address] Transcribed By: [facility] 07/25/23 0940 Dictated By: Matt Feldman DO 07/25/23 0934 Signed By: 07/25/23 0940 Normal [facility] MG MAMM SCREEN 3D ROXANA CADon 10-20-2022 MG MAMM SCREEN 3D ROXANA CAD Patient: TANGELA TRINIDAD. Exam Date: 10/20/2022 : 1940 Gender:F Ordering : DR KVNG MELGAR D.O. Admission #: [id number] Family : Order #: [id number] CLICK HERE TO VIEW EXAM RADIOLOGY REPORT [...] melonoma cancer at age 64. LOCATION: [facility] BREAST COMPOSITION: Scattered areas fibroglandular density. FINDINGS: [...] M.D. on 10/20/2022 at 13:19 Normal [facility] CBC W Auto Differential pane l (Bld)on 07-27-2022 Basophils (Bld) [#/Vol] 0.08 10*3/uL Normal <0.11 [facility] Comment on above: Order Comment: Speci men Type: BLOOD SPECIMEN Ordering Facility: [facility] Address: [address] [place] [place] [address] Performed By: #### 1 4196-0, 31469-1 #### [facility] CLIA [id number] [address] [place] [address] Basophils/100 WBC (Bld) 0.9 % Normal [facility] Comment on above: Order Comment: Speci men Type: BLOOD SPECIMEN Ordering Facility: [facility] Address: [address] [place] [address] Performed By: #### 1 4196-0, 24888-0 #### [facility] CLIA [id number] [address] [place] [address] 10952 Differential cell count method Nom (Bld) Auto Normal [facility] Comment on above: Order Comment: Speci men Type: BLOOD SPECIMEN Ordering Facility: [facility] Address: [address] [place] [address] Performed By: #### 1 4196-0, 42807-7 #### [facility] CLIA [id number] [address] [place] [address] Eosinophils (Bld) [#/Vol] 0.52 10*3/uL High <0.46 [facility] Comment on above: Order Comment: Speci men Type: BLOOD SPECIMEN Ordering Facility: [facility] Address: [address] [place] [place] [address] Performed By: #### 1 4196-0, 61302-5 #### [facility] CLIA [id number] [address] [place] [address]808 Eosinophils/100 WBC (Bld) 5.8 % Normal [facility] Comment on above: Order Comment: Speci men Type: BLOOD SPECIMEN Ordering Facility: [facility] Address: [address] [place] [address] Performed By: #### 1 4196-0, 96884-6 #### [facility] CLIA [id number] [address] [place] [address] Erythrocyte distribution width (RBC) [Ratio] 18.0 % High 11.5-15.0 [facility] Comment on above: Order Comment: Speci men Type: BLOOD SPECIMEN Ordering Facility: [facility] Address: [address] [place] [address] Performed By: #### 1 4196-0, 13144-4 #### [facility] CLIA [id number] [address] [place] [address] Hematocrit (Bld) [Volume fraction] 39.6 % Normal 36.0-46.0 [facility] Comment on above: Order Comment: Speci men Type: BLOOD SPECIMEN Ordering Facility: [facility] Address: [address] [place] [address] Performed By: #### 1 4196-0, 75286-1 #### [facility] CLIA [id number] [address] [place] [address]792 Hemoglobin (Bld) [Mass/Vol] 13.0 g/dL Normal 11.5-15.5 [facility] Comment on above: Order Comment: Speci men Type: BLOOD SPECIMEN Ordering Facility: [facility] Address: [address] Performed By: #### 1 4196-0, 62273-6 #### [facility] CLIA [id number] [address] [place] [address] Immature granulocytes (Bld) [#/Vol] 0.04 10*3/uL Normal <0.10 [facility] Comment on above: Order Comment: Speci men Type: BLOOD SPECIMEN Ordering Facility: [facility] Address: [address] [place] [place] [address] Performed By: #### 1 4196-0, 76972-1 #### [facility] CLIA [id number] [address] [place] [address]40 Immature granulocytes/100 WBC (Bld) 0.4 % Normal [facility] Comment on above: Order Comment: Speci men Type: BLOOD SPECIMEN Ordering Facility: [facility] Address: [address] [place] [place] [address] Performed By: #### 1 4196-0, 84572-8 #### [facility] CLIA [id number] [address] [place] [address]180 Lymphocytes (Bld) [#/Vol] 3.25 10*3/uL Normal 1.00-4.00 [facility] Comment on above: Order Comment: Speci men Type: BLOOD SPECIMEN Ordering Facility: [facility] Address: [address] [place] [place] [address] Performed By: #### 1 4196-0, 33607-7 #### [facility] CLIA [id number] [address] [place] [address] Lymphocytes/100 WBC (Bld) 36.3 % Normal [facility] Comment on above: Order Comment: Speci men Type: BLOOD SPECIMEN Ordering Facility: [facility] Address: [address] [place] [place] [address] Performed By: #### 1 4196-0, 77698-0 #### [facility] CLIA [id number] [address] [place] [address] 12934 MCH (RBC) [Entitic mass] 28.3 pg Normal 26.0-34.0 [facility] Comment on above: Order Comment: Speci men Type: BLOOD SPECIMEN Ordering Facility: [facility] Address: [address] [place] [address] Performed By: #### 1 4196-0, 09087-2 #### [facility] CLIA [id number] [address] [place] [address] 62284 MCHC (RBC) [Mass/Vol] 32.8 g/dL Normal 30.5-36.0 [facility] Comment on above: Order Comment: Speci men Type: BLOOD SPECIMEN Ordering Facility: [facility] Address: [address] [place] [address] Performed By: #### 1 4196-0, 51691-7 #### [facility] CLIA [id number] [address] [place] [address] 30476 MCV (RBC) [Entitic vol] 86.1 fL Normal 80.0-100.0 [facility] Comment on above: Order Comment: Speci men Type: BLOOD SPECIMEN Ordering Facility: [facility] Address: [address] [place] [address] Performed By: #### 1 4196-0, 60410-7 #### [facility] CLIA [id number] [address] [place] [address] 50462 Monocytes (Bld) [#/Vol] 1.25 10*3/uL High <0.87 [facility] Comment on above: Order Comment: Speci men Type: BLOOD SPECIMEN Ordering Facility: [facility] Address: [address] [place] [address] Performed By: #### 1 4196-0, 09714-2 #### [facility] CLIA [id number] [address] [place] [address] 52654 Monocytes/100 WBC (Bld) 14.0 % Normal [facility] Comment on above: Order Comment: Speci men Type: BLOOD SPECIMEN Ordering Facility: [facility] Address: [address] [place] [place] [address] Performed By: #### 1 4196-0, 28127-3 #### [facility] CLIA [id number] [address] [place] [address] 85192 Neutrophils (Bld) [#/Vol] 3.81 10*3/uL Normal 1.45-7.50 [facility] Comment on above: Order Comment: Speci men Type: BLOOD SPECIMEN Ordering Facility: [facility] Address: [address] [place] [place] [address] Performed By: #### 1 4196-0, 17845-4 #### [facility] CLIA [id number] [address] [place] [address] 98561 Neutrophils/100 WBC (Bld) 42.6 % Normal [facility] Comment on above: Order Comment: Speci men Type: BLOOD SPECIMEN Ordering Facility: [facility] Address: [address] [place] [place] [address] Performed By: #### 1 4196-0, 07694-4 #### [facility] CLIA [id number] [address] [place] [address] 71660 Nucleated RBC (Bld) [#/Vol] 10*3/uL Normal <0.01 [facility] Comment on above: Order Comment: Speci men Type: BLOOD SPECIMEN Ordering Facility: [facility] Address: [address] [place] [place] [address] Performed By: #### 1 4196-0, 63356-8 #### [facility] CLIA [id number] [address] [place] [address] 28075 Nucleated RBC/100 WBC (Bld) [Ratio] 0.0 /100 WBC Normal [facility] Comment on above: Order Comment: Speci men Type: BLOOD SPECIMEN Ordering Facility: [facility] Address: [address] [place] [address] Performed By: #### 1 4196-0, 30184-7 #### [facility] CLIA [id number] [address] [place] [address] 61128 Platelet mean volume (Bld) [Entitic vol] 9.5 fL Normal 9.0-12.7 [facility] Comment on above: Order Comment: Speci men Type: BLOOD SPECIMEN Ordering Facility: [facility] Address: [address] [place] [address] Performed By: #### 1 4196-0, 39549-6 #### [facility] CLIA [id number] [address] [place] [address] 35576 Platelets (Bld) [#/Vol] 379 10*3/uL Normal 150-400 [facility] Comment on above: Order Comment: Speci men Type: BLOOD SPECIMEN Ordering Facility: [facility] Address: [address] [place] [address] Performed By: #### 1 4196-0, 21853-8 #### [facility] CLIA [id number] [address] [place] [address]33 RBC (Bld) [#/Vol] 4.60 10*6/uL Normal 3.90-5.20 [facility] Comment on above: Order Comment: Speci men Type: BLOOD SPECIMEN Ordering Facility: [facility] Address: [address] [place] [address] Performed By: #### 1 4196-0, 32596-3 #### [facility] CLIA [id number] [address] [place] [address] 16698 WBC (Bld) [#/Vol] 8.95 10*3/uL Normal 3.70-11.00 [facility] Comment on above: Order Comment: Speci men Type: BLOOD SPECIMEN Ordering Facility: [facility] Address: [address] [place] [address] Performed By: #### 1 4196-0, 46102-3 #### [facility] CLIA [id number] [address] [place] [address] 76182 CNOVSPon 07-27-2022 CNOVSP Visit (SP) Office ([place]) TANGELA TRINIDAD ([id number]) 1940 F Date Time Provider Department 07/27/22 2:45 PM MAVIS SANTIAGO During your visit today, we recorded the following information about you: Temperature Pulse Respiration Blood pressure 98.1 degrees 64/minute 16/minute 125/72 Weight Height 66.5 kg 1.524 m Mavis Santiago MD 07/27/2022 2:56 PM Signed PATIENT NAME: Tangela Trinidad CLINIC NO.: [id number] ATTENDING PHYSICIAN: Mavis Santiago MD DATE OF [...] Range Status (more content not included)... Normal [facility] Ferritin SerPl-mCncon 2022 Ferritin [Mass/Vol] 104.0 ng/mL Normal 14.7-205.1 [facility] Comment on above: Order Comment: Speci men Type: BLOOD SPECIMEN Ordering Facility: [facility] Address: [address] [place], [place] [address] Performed By: #### 5 0190-8, 2276-4 #### [facility] CLIA [id number] [address] [facility] [place] [address] [place] Iron and Iron binding capaci ty panelon 07-27-2022 Iron [Mass/Vol] 43 ug/dL Normal 41-186 [facility] Comment on above: Order Comment: Speci men Type: BLOOD SPECIMEN Ordering Facility: [facility] Address: [address] [place] [address] Performed By: #### 5 0190-8, 2276-4 #### [facility] CLIA [id number] [address] [place] [address] [place] Iron binding capacity [Mass/Vol] 265 ug/dL Normal 232-386 [facility] Comment on above: Order Comment: Speci men Type: BLOOD SPECIMEN Ordering Facility: [facility] Address: [address] [place] [address] Performed By: #### 5 0190-8, 2276-4 #### [facility] CLIA [id number] [address] [place] [address] [place] Iron/TIBC [Molar ratio] 16.2 % Normal 15.0-57.0 [facility] Comment on above: Order Comment: Speci men Type: BLOOD SPECIMEN Ordering Facility: [facility] Address: [address] [place] [address] Performed By: #### 5 0190-8, 2276-4 #### [facility] CLIA [id number] [address] [place] [address] [place] Retics #on 07-27-2022 Reticulocytes (Bld) [#/Vol] 0.89981 10*3/uL Normal 0.018-0.100 [facility] Comment on above: Order Comment: Speci men Type: BLOOD SPECIMEN Ordering Facility: [facility] Address: [address] [place] [address] Performed By: #### 1 4196-0, 40425-3 #### [facility] CLIA [id number] [address] [place] [address]44 Reticulocytes (Bld) [#/Vol]o n 07-27-2022 Reticulocytes/100 RBC (Bld) 0.9 % Normal 0.4-2.0 [facility] Comment on above: Order Comment: Speci men Type: BLOOD SPECIMEN Ordering Facility: [facility] Address: [place] [address] Performed By: #### 1 4196-0, 70406-4 #### [facility] CLIA [id number] [address] [place] [address]40 COVID-19 SOFIAOrdered By: Brandy Diaz on 07-22-2022 SARS-CoV+SARS-CoV-2 (COVID-19) Ag IA.rapid Ql (Resp) Negative Negative [facility] Comment on above: This is a duplicate Heidi SARS Antigen (DB) result to be used for statistical tracking purpose only. No Panel InformationOrdered By: Jeyson Diaz on 07-22-2022 SARS Antigen (LFIA) [facility] CNSWon 06-02-2022 [facility] Social Work ([place]) TANGELA TRINIDAD ([id number]) 1940 F Date Time Provider Department 06/02/22 [...] - Hives POVIDONE-IODINE 06/21/2019 16 - Unknown TDMCSBW-IDG-EXT REDUCTASE INHIBIT*01/05/2018 16 - Unknown SULFA (SULFONAMIDE [...] 112 mcg tablet 0.125 mcg. - CA/D3/MAG OX/ZINC/LOBBY CONCIERGE/MEREDITH/BOR (CALCIUM 600+D3 PLUS ORAL) Take 1,200 mg by mouth once daily. - atenolol (TENORMIN) 25 mg tablet Take 1 tablet by mouth once daily. Problem List As Of Date 06/02/2022 Noted Resolved Anemia [D64.9] 11/15/2014 Iron deficiency [E61.1] 11/15/2014 Encounter Status:Closed by MARCIA RAMIRES on 06/02/22 [facility] ([id number]) 1940 F Date Time Provider Department 05/25/22 FINANCIAL NAVIGATOR DAMON BREWER During your visit today, we recorded the following information about you: Mohit Lo [facility] 05/25/2022 3:35 PM Signed 1st report of treatment-non oncology regimen (Monoferric) Patient holds Medicare coverage. No FA available at this time. Allergies As of Date: 05/25/2022 Noted Allergy Reaction CEPHALOSPORINS 10/23/2014 16 - Unknown MACRODANTIN (NITROFURANTOIN MACRO*10/11/2018 2 - Rash 9 - Itching PENICILLINS 11/15/2014 4 - Hives POVIDONE-IODINE 06/21/2019 16 - Unknown NHEANNQ-CHZ-ZHF REDUCTASE INHIBIT*01/05/2018 16 - Unknown SULFA (SULFONAMIDE ANTIBIOTICS) 11/15/2014 4 - Hives VANCOMYCIN 10/11/2018 2 - Rash 9 - Itching Date Reviewed: 05/18/2022 Reviewed by: Lyla Beasley - Fully Assessed Reason for Visit: Benefits Investigation [1888] Prescriptions as of 05/25/2022 - diclofenac, EC, [...] 112 mcg tablet 0.125 mcg. - CA/D3/MAG OX/ZINC/LOBBY CONCIERGE/MEREDITH/BOR (CALCIUM 600+D3 PLUS ORAL) Take 1,200 mg [...] NAUN JIMENES, MOHIT Funes on 05/25/22 Normal [facility] CNOVSPon 05-18-2022 CNOVSP Visit (SP) Office ([place]) TANGELA TRINIDAD ([id number]) 1940 F Date Time Provider Department 05/18/22 4:00 PM MAVIS SANTIAGO During your visit today, we recorded the following information about you: Temperature Pulse Respiration Blood pressure 98.1 degrees 78/minute 16/minute 122/78 Weight 68 kg Mavis Santiago MD 05/18/2022 4:08 PM Signed PATIENT NAME: Tangela Trinidad CLINIC NO.: [id number] ATTENDING PHYSICIAN: Mavis Santiago MD DATE OF [...] Range Status (more content not included)... Normal [facility] IMMUNOFIXATION(ELISE),PROTEIN ELEC(PE),FREon 05-06-2022 Albumin [Mass/Vol] 2.9 g/dL Normal 2.9-4.4 [facility] Comment on above: Performed By: #### I FEPEFL #### [facility] [address] [place], [place] [address] Dr. Yayo Gregg Albumin/Globulin [Mass ratio] 1.2 {ratio} Normal 0.7-1.7 [facility] Comment on above: Performed By: #### I FEPEFL #### [facility] Laboratory [address] [address] [address] Yayo Gregg Uphfl-8-Yyjyccgx 0.3 g/dL Normal 0.0-0.4 [facility] Comment on above: Performed By: #### I FEPEFL #### [facility] [address] [place] [address] Dr. Yayo Gregg Gfnru-8-Vdxnvyip 0.7 g/dL Normal 0.4-1.0 [facility] Comment on above: Performed By: #### I FEPEFL #### [facility] [address] [place] [address] Dr. Yayo Gregg Beta Globulin 0.9 g/dL Normal 0.7-1.3 [facility] Comment on above: Performed By: #### I FEPEFL #### [facility] [address] [place] [address] Dr. Yayo Gregg Free [place] Lt Chains,S 39.9 mg/L Critically high 3.3-19.4 [facility] Comment on above: Performed By: #### I FEPEFL #### [facility] [address] [place] [address] Dr. Yayo Gregg Free Lambda Lt Chains,S 22.7 mg/L Normal 5.7-26.3 [facility] Comment on above: Performed By: #### I FEPEFL #### [facility] [address] [place] [address] Dr. Yayo Gregg Gamma Globulin 0.6 g/dL Normal 0.4-1.8 [facility] Comment on above: Performed By: #### I FEPEFL #### [facility] [address] [place] [address] Dr. Yayo Gregg Globulin (S) [Mass/Vol] 2.6 g/dL Normal 2.2-3.9 [facility] Comment on above: Performed By: #### I FEPEFL #### [facility] [address] [place] [address] Dr. Yayo Gregg Immunofixation Result, Serum Comment Normal [facility] Comment on above: Result Comment: No m onoclonality detected. Performed By: #### I FEPEFL #### [facility] [address] [address] [address] Yayo Gregg Immunoglobulin A, Qn, Serum 81 mg/dL Normal 64-422 [facility] Comment on above: Performed By: #### I FEPEFL #### [facility] [address] [address] [address] Yayo Gregg Immunoglobulin G, Qn, Serum 547 mg/dL Critically low 586-1602 [facility] Comment on above: Performed By: #### I FEPEFL #### [facility] [address] [address] [address] Yayo Gregg Immunoglobulin M, Qn, Serum 92 mg/dL Normal 26-217 [facility] Comment on above: Performed By: #### I FEPEFL #### [facility] [address] [place] [address] Dr. Yayo Gregg [place]/Lambda Ratio, S 1.76 Critically high 0.26-1.65 [facility] Comment on above: Performed By: #### I FEPEFL #### [facility] [address] [place] [address] Dr. Yayo Gregg M-Johan Not Observed Normal Not Observed [facility] Comment on above: Performed By: #### I FEPEFL #### [facility] [address] [place] [address] Dr. Yayo Gregg PDF . Normal [facility] Comment on above: Performed By: #### I FEPEFL #### [facility] [address] [place] [address] Dr. Yayo Gregg Please note: Comment Normal [facility] Comment on above: Result Comment: Prot ein electrophoresis scan will follow via computer, mail, or grey goods examiner delivery. Performed By: #### I FEPEFL #### [facility] [address] [place] [address] Dr. Yayo Gregg Protein [Mass/Vol] 5.5 g/dL Critically low 6.0-8.5 Th [facility] Comment on above: Performed By: #### I FEPEFL #### [facility] [address] [place] [address] Dr. Yayo Gregg IMMUNOGLOBULINS IGA/IGM/IGG QUANTITATIVEon 05-05-2022 Immunoglobulin A, Qn, Serum 83 mg/dL Normal 64-422 [facility] Comment on above: Performed By: #### I MMUNGL #### [facility] [address] [place] [address] Dr. Yayo Gregg Immunoglobulin G, Qn, Serum 559 mg/dL Critically low 586-1602 [facility] Comment on above: Performed By: #### I MMUNGL #### [facility] [address] [place] [address] Dr. Yayo Gregg Immunoglobulin M, Qn, Serum 93 mg/dL Normal 26-217 [facility] Comment on above: Performed By: #### I MMUNGL #### [facility] [address] [place] [address] Dr. Yayo Gregg CBC AUTO DIFFon 05-04-2022 BASO # 0.1 103/ul Normal 0.0-0.1 [facility] Comment on above: Performed By: #### I MMUNGL #### [facility] [address] [place] [address] Dr. Yayo Gregg Basophils/100 WBC (Bld) 0.9 % Normal 0.2-2.0 [facility] Comment on above: Performed By: #### I MMUNGL #### [facility] [address] [place] [address] Dr. Yayo Gregg EO # 0.7 103/ul Normal 0.0-0.7 [facility] Comment on above: Performed By: #### I MMUNGL #### [facility] [address] [place] [address] Dr. Yayo Gregg Eosinophils/100 WBC (Bld) 6.7 % Normal 0.9-7.0 [facility] Comment on above: Performed By: #### I MMUNGL #### [facility] [address] [place] [address] Dr. Yayo Gregg Erythrocyte distribution width (RBC) [Ratio] 15.6 % Critically high 11.0-15.0 [facility] Comment on above: Performed By: #### I MMUNGL #### [facility] [address] [place] [address] Dr. Yayo Gregg Hematocrit (Bld) [Volume fraction] 31.3 % Critically low 36.0-48.0 [facility] Comment on above: Performed By: #### I MMUNGL #### [facility] [address] [place] [address] Dr. Yayo Gregg Hemoglobin (Bld) [Mass/Vol] 10.0 g/dL Critically low 12.0-16.0 [facility] Comment on above: Performed By: #### I MMUNGL #### [facility] [address] [place] [address] Dr. Yayo Gregg IG # 0.04 10e3/ul Critically high 0.00-0.03 [facility] Comment on above: Performed By: #### I MMUNGL #### [facility] [address] [place] [address] Dr. Yayo Gregg IG % 0.4 % Normal 0.0-0.5 [facility] Comment on above: Performed By: #### I MMUNGL #### [facility] [address] [place] [address] Dr. Yayo Gregg LYMPH # 2.9 103/ul Normal 1.2-3.8 [facility] Comment on above: Performed By: #### I MMUNGL #### [facility] [address] [place] [address] Dr. Yayo Gregg Lymphocytes/100 WBC (Bld) 29.6 % Normal 20.5-60.0 [facility] Comment on above: Performed By: #### I MMUNGL #### [facility] [address] [place] [address] Dr. Yayo Gregg MANUAL DIFF REQ NO Normal [facility] Comment on above: Performed By: #### I MMUNGL #### [facility] [address] [place] [address] Dr. Yayo Gregg MCH (RBC) [Entitic mass] 25.7 pg Critically low 26.7-34.0 [facility] Comment on above: Performed By: #### I MMUNGL #### [facility] [address] [place] [address] Dr. Yayo Gregg MCHC (RBC) [Mass/Vol] 31.9 g/dL Normal 29.9-35.2 [facility] Comment on above: Performed By: #### I MMUNGL #### [facility] [address] [place] [address] Dr. Yayo Gregg MCV (RBC) [Entitic vol] 80.5 fL Critically low 81.0-99.0 [facility] Comment on above: Performed By: #### I MMUNGL #### [facility] [address] [place] [address] Dr. Yayo Gregg MONO # 1.4 103/ul Critically high 0.3-0.8 [facility] Comment on above: Performed By: #### I MMUNGL #### [facility] [address] [place] [address] Dr. Yayo Gregg Monocytes/100 WBC (Bld) 14.5 % Critically high 1.7-12.0 [facility] Comment on above: Performed By: #### I MMUNGL #### [facility] [address] [place] [address] Dr. Yayo Gregg NEUT # 4.7 103/ul Normal 1.4-6.5 [facility] Comment on above: Performed By: #### I MMUNGL #### [facility] [address] [place] [address] Dr. Yayo Gregg Neutrophils/100 WBC (Bld) 47.9 % Normal 43.0-75.0 [facility] Comment on above: Performed By: #### I MMUNGL #### [facility] [address] [place] [address] Dr. Yayo Gregg Platelet mean volume (Bld) [Entitic vol] 9.5 fL Normal 9.5-13.5 [facility] Comment on above: Performed By: #### I MMUNGL #### [facility] [address] [place] [address] Dr. Yayo Gregg PLT 457 103/ul Critically high 150-450 [facility] Comment on above: Performed By: #### I MMUNGL #### [facility] [address] [place] [address] Dr. Yayo Gregg RBC 3.89 106/ul Critically low 4.20-5.40 [facility] Comment on above: Performed By: #### I MMUNGL #### [facility] [address] [place] [address] Dr. Yayo Gregg WBC 9.8 103/ul Normal 4.0-11.0 [facility] Comment on above: Performed By: #### I MMUNGL #### [facility] [address] [place] [address] Dr. Yayo Gregg FERRITINon 05-04-2022 Ferritin [Mass/Vol] 20.0 ng/mL Normal 8.0-252.0 [facility] Comment on above: Performed By: #### F ERR, FETIBC #### [facility] [address] [place] [address] Dr. Yayo Gregg IRON AND TIBCon 05-04-2022 % SATURATION 5.7 % Normal [facility] Comment on above: Performed By: #### F ERR, FETIBC #### [facility] [address] [place] [address] Dr. Yayo Gregg Iron [Mass/Vol] 18.0 ug/dL Critically low 50.0-170.0 [facility] Comment on above: Performed By: #### F ERR, FETIBC #### [facility] [address] [place] [address] Dr. Yayo Gregg TIBC DIRECT 318.0 ug/dL Normal 250.0-450.0 [facility] Comment on above: Performed By: #### F ERR, FETIBC #### [facility] [address] [place] [address] Dr. Yayo Gregg PROF CHEM 8 (BAS METB)on Anion gap [Moles/Vol] 11.7 mmol/L Normal [facility] Comment on above: Performed By: #### I MMUNGL #### [facility] [address] [address] [address] Yayo Gregg Calcium [Mass/Vol] 8.1 mg/dL Critically low 8.5-10.1 Th [facility] Comment on above: Performed By: #### I MMUNGL #### [facility] [address] [address] [address] Yayo Gregg Chloride [Moles/Vol] 100 mmol/L Normal 98-107 [facility] Comment on above: Performed By: #### I MMUNGL #### [facility] [address] [address] [address] Yayo Gregg CO2 [Moles/Vol] 25.7 mmol/L Normal 21.0-32.0 [facility] Comment on above: Performed By: #### I MMUNGL #### [facility] [address] [address] [address] Yayo Gregg Creatinine [Mass/Vol] 1.06 mg/dL Critically high 0.55-1.02 [facility] Comment on above: Performed By: #### I MMUNGL #### [facility] [address] [address] [address] Yayo Gregg EGFR-AF INDIAN =60 Normal >=60 [facility] Comment on above: Performed By: #### I MMUNGL #### [facility] [address] [address] [address] Yayo Gregg EGFR-NON AF INDIAN 49 mL/min/1.73m2 Critically low >=60 [facility] Comment on above: Performed By: #### I MMUNGL #### [facility] [address] [address] [address] Yayo Gregg Glucose [Mass/Vol] 121 mg/dL Critically high 74-106 [facility] Comment on above: Performed By: #### I MMUNGL #### [facility] [address] [address] [address] Yayo Gregg Potassium [Moles/Vol] 4.4 mmol/L Normal 3.5-5.1 [facility] Comment on above: Performed By: #### I MMUNGL #### [facility] [address] [place] [address] Dr. Yayo Gregg Sodium [Moles/Vol] 133 mmol/L Critically low 136-145 Th [facility] Comment on above: Performed By: #### I MMUNGL #### [facility] [address] [place] [address] Dr. Yayo Gregg Urea nitrogen [Mass/Vol] 16.0 mg/dL Normal 7.0-18.0 [facility] Comment on above: Performed By: #### I MMUNGL #### [facility] [address] [place] [address] Dr. Yayo Gregg Urea nitrogen/Creatinine [Mass ratio] 15.1 mg/mg Normal [facility] Comment on above: Performed By: #### I MMUNGL #### [facility] [address] [place] [address] Dr. Yayo Gregg T PROTEIN SERUMon 05-04-2022 Protein [Mass/Vol] 6.0 g/dL Critically low 6.4-8.2 Th [facility] Comment on above: Performed By: #### I MMUNGL #### [facility] [address] [place] [address] Dr. Yayo Gregg TSHon 05-04-2022 TSH 1.715 uIU/mL Normal 0.358-3.740 [facility] Comment on above: Performed By: #### I MMUNGL #### [facility] [address] [place] [address] Dr. Yayo Gregg CBC AUTO DIFFon 03-26-2022 BASO # 0.1 103/ul Normal 0.0-0.1 [facility] Comment on above: Performed By: #### C BC #### [facility] [address] [place] [address] Dr. Yayo Gregg Basophils/100 WBC (Bld) 1.0 % Normal 0.2-2.0 [facility] Comment on above: Performed By: #### C BC #### [facility] [address] [place] [address] Dr. Yayo Gregg EO # 0.8 103/ul Critically high 0.0-0.7 [facility] Comment on above: Performed By: #### C BC #### [facility] [address] [address] [address] Yayo Gregg Eosinophils/100 WBC (Bld) 7.6 % Critically high 0.9-7.0 [facility] Comment on above: Performed By: #### C BC #### [facility] [address] [place] [address] Dr. Yayo Gregg Erythrocyte distribution width (RBC) [Ratio] 15.1 % Critically high 11.0-15.0 [facility] Comment on above: Performed By: #### C BC #### [facility] [address] [place] [address] Dr. Yayo Gregg Hematocrit (Bld) [Volume fraction] 32.0 % Critically low 36.0-48.0 [facility] Comment on above: Performed By: #### C BC #### [facility] [address] [place] [address] Dr. Yayo Gregg Hemoglobin (Bld) [Mass/Vol] 10.4 g/dL Critically low 12.0-16.0 [facility] Comment on above: Performed By: #### C BC #### [facility] [address] [place] [address] Dr. Yayo Gregg IG # 0.05 10e3/ul Critically high 0.00-0.03 [facility] Comment on above: Performed By: #### C BC #### [facility] [address] [place] [address] Dr. Yayo Gregg IG % 0.5 % Normal 0.0-0.5 [facility] Comment on above: Performed By: #### C BC #### [facility] [address] [place] [address] Dr. Yayo Gregg LYMPH # 2.9 103/ul Normal 1.2-3.8 [facility] Comment on above: Performed By: #### C BC #### [facility] [address] [place] [address] Dr. Yayo Gregg Lymphocytes/100 WBC (Bld) 27.7 % Normal 20.5-60.0 [facility] Comment on above: Performed By: #### C BC #### [facility] [address] [place] [address] Dr. Yayo Gregg MANUAL DIFF REQ NO Normal [facility] Comment on above: Performed By: #### C BC #### [facility] [address] [place] [address] Dr. Yayo Gregg MCH (RBC) [Entitic mass] 26.5 pg Critically low 26.7-34.0 [facility] Comment on above: Performed By: #### C BC #### [facility] [address] [place] [address] Dr. Yayo Gregg MCHC (RBC) [Mass/Vol] 32.5 g/dL Normal 29.9-35.2 [facility] Comment on above: Performed By: #### C BC #### [facility] [address] [place] [address] Dr. Yayo Gregg MCV (RBC) [Entitic vol] 81.4 fL Normal 81.0-99.0 [facility] Comment on above: Performed By: #### C BC #### [facility] [address] [place] [address] Dr. Yayo Gregg MONO # 1.3 103/ul Critically high 0.3-0.8 [facility] Comment on above: Performed By: #### C BC #### [facility] [address] [place] [address] Dr. Yayo Gregg Monocytes/100 WBC (Bld) 12.5 % Critically high 1.7-12.0 [facility] Comment on above: Performed By: #### C BC #### [facility] [address] [place] [address] Dr. Yayo Gregg NEUT # 5.2 103/ul Normal 1.4-6.5 [facility] Comment on above: Performed By: #### C BC #### [facility] [address] [place] [address] Dr. Yayo Gregg Neutrophils/100 WBC (Bld) 50.7 % Normal 43.0-75.0 [facility] Comment on above: Performed By: #### C BC #### [facility] [address] [place] [address] Dr. Yayo Gregg Platelet mean volume (Bld) [Entitic vol] 9.6 fL Normal 9.5-13.5 [facility] Comment on above: Performed By: #### C BC #### [facility] [address] [place] [address] Dr. Yayo Gregg PLT 409 103/ul Normal 150-450 [facility] Comment on above: Performed By: #### C BC #### [facility] [address] [place] [address] Dr. Yayo Gregg RBC 3.93 106/ul Critically low 4.20-5.40 [facility] Comment on above: Performed By: #### C BC #### [facility] [address] [place] [address] Dr. Yayo Gregg WBC 10.3 103/ul Normal 4.0-11.0 [facility] Comment on above: Performed By: #### C BC #### [facility] [address] [place] [address] Dr. Yayo Gregg FERRITINon 03-26-2022 Ferritin [Mass/Vol] 22.0 ng/mL Normal 8.0-252.0 [facility] Comment on above: Performed By: #### I MMUNGL #### [facility] [address] [place] [address] Dr. Yayo Gregg CBC AUTO DIFFon 02-09-2022 BASO # 0.1 103/ul Normal 0.0-0.1 [facility] Comment on above: Performed By: #### C BC #### [facility] [address] [place] [address] Dr. Yayo Gregg Basophils/100 WBC (Bld) 0.7 % Normal 0.2-2.0 [facility] Comment on above: Performed By: #### C BC #### [facility] [address] [place] [address] Dr. Yayo Gregg EO # 0.9 103/ul Critically high 0.0-0.7 [facility] Comment on above: Performed By: #### C BC #### [facility] [address] [address] [address] Yayo Gregg Eosinophils/100 WBC (Bld) 7.5 % Critically high 0.9-7.0 [facility] Comment on above: Performed By: #### C BC #### [facility] [address] [address] [address] Yayo Gregg Erythrocyte distribution width (RBC) [Ratio] 15.1 % Critically high 11.0-15.0 [facility] Comment on above: Performed By: #### C BC #### [facility] [address] [place] [address] Dr. Yayo Gregg Hematocrit (Bld) [Volume fraction] 32.5 % Critically low 36.0-48.0 [facility] Comment on above: Performed By: #### C BC #### [facility] [address] [place] [address] Dr. Yayo Gregg Hemoglobin (Bld) [Mass/Vol] 10.9 g/dL Critically low 12.0-16.0 [facility] Comment on above: Performed By: #### C BC #### [facility] [address] [place] [address] Dr. Yayo Gregg IG # 0.16 10e3/ul Critically high 0.00-0.03 [facility] Comment on above: Performed By: #### C BC #### [facility] [address] [place] [address] Dr. Yayo Gregg IG % 1.3 % Critically high 0.0-0.5 [facility] Comment on above: Performed By: #### C BC #### [facility] [address] [place] [address] Dr. Yayo Gregg LYMPH # 2.9 103/ul Normal 1.2-3.8 [facility] Comment on above: Performed By: #### C BC #### [facility] [address] [place] [address] Dr. Yayo Gregg Lymphocytes/100 WBC (Bld) 24.0 % Normal 20.5-60.0 [facility] Comment on above: Performed By: #### C BC #### [facility] [address] [place] [address] Dr. Yayo Gregg MANUAL DIFF REQ NO Normal [facility] Comment on above: Performed By: #### C BC #### [facility] [address] [place] [address] Dr. Yayo Gregg MCH (RBC) [Entitic mass] 27.2 pg Normal 26.7-34.0 [facility] Comment on above: Performed By: #### C BC #### [facility] [address] [place] [address] Dr. Yayo Gregg MCHC (RBC) [Mass/Vol] 33.5 g/dL Normal 29.9-35.2 [facility] Comment on above: Performed By: #### C BC #### [facility] [address] [place] [address] Dr. Yayo Gregg MCV (RBC) [Entitic vol] 81.0 fL Normal 81.0-99.0 [facility] Comment on above: Performed By: #### C BC #### [facility] [address] [place] [address] Dr. Yayo Gregg MONO # 1.6 103/ul Critically high 0.3-0.8 [facility] Comment on above: Performed By: #### C BC #### [facility] [address] [place] [address] Dr. Yayo Gregg Monocytes/100 WBC (Bld) 13.4 % Critically high 1.7-12.0 [facility] Comment on above: Performed By: #### C BC #### [facility] [address] [place] [address] Dr. Yayo Gregg NEUT # 6.3 103/ul Normal 1.4-6.5 [facility] Comment on above: Performed By: #### C BC #### [facility] [address] [place] [address] Dr. Yayo Gregg Neutrophils/100 WBC (Bld) 53.1 % Normal 43.0-75.0 [facility] Comment on above: Performed By: #### C BC #### [facility] [address] [place] [address] Dr. Yayo Gregg Platelet mean volume (Bld) [Entitic vol] 9.4 fL Critically low 9.5-13.5 [facility] Comment on above: Performed By: #### C BC #### [facility] [address] [place] [address] Dr. Yayo Gregg PLT 426 103/ul Normal 150-450 [facility] Comment on above: Performed By: #### C BC #### [facility] [address] [place] [address] Dr. Yayo Gregg RBC 4.01 106/ul Critically low 4.20-5.40 [facility] Comment on above: Performed By: #### C BC #### [facility] [address] [place] [address] Dr. Yayo Gregg WBC 11.9 103/ul Critically high 4.0-11.0 [facility] Comment on above: Performed By: #### C BC #### [facility] [address] [place] [address] Dr. Yayo Gregg FERRITINon 02-09-2022 Ferritin [Mass/Vol] 36.0 ng/mL Normal 8.0-252.0 [facility] Comment on above: Performed By: #### V ITB12, FETIBC, FERR #### [facility] [address] [place] [address] Dr. Yayo Gregg IRON AND TIBCon 02-09-2022 % SATURATION 5.2 % Normal [facility] Comment on above: Performed By: #### V ITB12, FETIBC, FERR #### [facility] [address] [place] [address] Dr. Yayo Gregg Iron [Mass/Vol] 16.0 ug/dL Critically low 50.0-170.0 [facility] Comment on above: Performed By: #### V ITB12, FETIBC, FERR #### [facility] [address] [place] [address] Dr. Yayo Gregg TIBC DIRECT 305.0 ug/dL Normal 250.0-450.0 [facility] Comment on above: Performed By: #### V ITB12, FETIBC, FERR #### [facility] [address] [place] [address] Dr. Yayo Gregg VITAMIN B12on 02-09-2022 Cobalamin (Vitamin B12) [Mass/Vol] 819.0 pg/mL Normal 193.0-986.0 [facility] Comment on above: Performed By: #### V ITB12, FETIBC, FERR #### [facility] [address] [place] [address] Dr. Yayo Gregg BNPon 01-27-2022 Natriuretic peptide B (Bld) [Mass/Vol] 270.0 pg/mL Normal <=1,800.0 [facility] Comment on above: Performed By: #### I MMUNGL #### [facility] [address] [place] [address] Dr. Yayo Gregg CARDIAC TARAN ADMITon 022 CK [Catalytic activity/Vol] 143 U/L Normal 26-192 [facility] Comment on above: Performed By: #### I MMUNGL #### [facility] [address] [place] [address] Dr. Yayo Gregg CK.MB [Mass/Vol] 2.66 ng/mL Normal <=3.60 [facility] Comment on above: Performed By: #### I MMUNGL #### [facility] [address] [place] [address] Dr. Yayo Gregg HSTROP 4.0 pg/mL Normal 4.0-51.3 [facility] Comment on above: Result Comment: CUT- OFF POINTS HAVE BEEN ESTABLISHED BASED ON THE FOURTH UNIVERSAL DEFINITIONS OF MYOCARDIAL INFARCTION. THE UPPER REFERENCE LIMIT (URL) OF TROPONIN, DEFINED THE 99TH PERCENTILE OF cTnI DISTRIBUTION IN A REFERENCE POPULATION, HAS BEEN CONFIRMED THE DECISION THRESHOLD FOR IA DIAGNOSIS. Performed By: #### I MMUNGL #### [facility] [address] [address] [address] Yayo Gregg CARA 113 ng/mL Critically high 9-82 [facility] Comment on above: Performed By: #### I MMUNGL #### [facility] [address] [place] [address] Dr. Yayo Gregg CBC AUTO DIFFon 01-27-2022 BASO # 0.1 103/ul Normal 0.0-0.1 [facility] Comment on above: Performed By: #### C BC #### [facility] [address] [place] [address] Dr. Yayo Gregg Basophils/100 WBC (Bld) 0.7 % Normal 0.2-2.0 [facility] Comment on above: Performed By: #### C BC #### [facility] [address] [place] [address] Dr. Yayo Gregg EO # 1.1 103/ul Critically high 0.0-0.7 [facility] Comment on above: Performed By: #### C BC #### [facility] [address] [place] [address] Dr. Yayo Gregg Eosinophils/100 WBC (Bld) 7.3 % Critically high 0.9-7.0 [facility] Comment on above: Performed By: #### C BC #### [facility] [address] [place] [address] Dr. Yayo Gregg Erythrocyte distribution width (RBC) [Ratio] 13.8 % Normal 11.0-15.0 [facility] Comment on above: Performed By: #### C BC #### [facility] [address] [place] [address] Dr. Yayo Grgeg Hematocrit (Bld) [Volume fraction] 34.4 % Critically low 36.0-48.0 [facility] Comment on above: Performed By: #### C BC #### [facility] [address] [place] [address] Dr. Yayo Gregg Hemoglobin (Bld) [Mass/Vol] 11.3 g/dL Critically low 12.0-16.0 [facility] Comment on above: Performed By: #### C BC #### [facility] [address] [address] [address] Yayo Gregg IG # 0.09 10e3/ul Critically high 0.00-0.03 [facility] Comment on above: Performed By: #### C BC #### [facility] [address] [address] [address] Yayo Gregg IG % 0.6 % Critically high 0.0-0.5 [facility] Comment on above: Performed By: #### C BC #### [facility] [address] [place] [address] Dr. Yayo Gregg LYMPH # 2.5 103/ul Normal 1.2-3.8 [facility] Comment on above: Performed By: #### C BC #### [facility] [address] [place] [address] Dr. Yayo Gregg Lymphocytes/100 WBC (Bld) 16.6 % Critically low 20.5-60.0 [facility] Comment on above: Performed By: #### C BC #### [facility] [address] [place] [address] Dr. Yayo Gregg MANUAL DIFF REQ NO Normal [facility] Comment on above: Performed By: #### C BC #### [facility] [address] [place] [address] Dr. Yayo Gregg MCH (RBC) [Entitic mass] 26.7 pg Normal 26.7-34.0 [facility] Comment on above: Performed By: #### C BC #### [facility] [address] [place] [address] Dr. Yayo Gregg MCHC (RBC) [Mass/Vol] 32.8 g/dL Normal 29.9-35.2 [facility] Comment on above: Performed By: #### C BC #### [facility] [address] [place] [address] Dr. Yayo Gregg MCV (RBC) [Entitic vol] 81.1 fL Normal 81.0-99.0 [facility] Comment on above: Performed By: #### C BC #### [facility] [address] [address] [address] Yayo Gregg MONO # 2.1 103/ul Critically high 0.3-0.8 [facility] Comment on above: Performed By: #### C BC #### [facility] [address] [place] [address] Dr. Yayo Gregg Monocytes/100 WBC (Bld) 14.0 % Critically high 1.7-12.0 [facility] Comment on above: Performed By: #### C BC #### [facility] [address] [place] [address] Dr. Yayo Gregg NEUT # 9.1 103/ul Critically high 1.4-6.5 [facility] Comment on above: Performed By: #### C BC #### [facility] [address] [place] [address] Dr. Yayo Gregg Neutrophils/100 WBC (Bld) 60.8 % Normal 43.0-75.0 [facility] Comment on above: Performed By: #### C BC #### [facility] [address] [place] [address] Dr. Yayo Gregg Platelet mean volume (Bld) [Entitic vol] 10.2 fL Normal 9.5-13.5 [facility] Comment on above: Performed By: #### C BC #### [facility] [address] [place] [address] Dr. Yayo Gregg PLT 455 103/ul Critically high 150-450 [facility] Comment on above: Performed By: #### C BC #### [facility] [address] [place] [address] Dr. Yayo Gregg RBC 4.24 106/ul Normal 4.20-5.40 [facility] Comment on above: Performed By: #### C BC #### [facility] [address] [place] [address] Dr. Yayo Gregg WBC 14.9 103/ul Critically high 4.0-11.0 [facility] Comment on above: Performed By: #### C BC #### [facility] [address] [place] [address] Dr. Yayo Gregg Covid-19 PCR (CVDTB)on 01-09 SARS-CoV-2 (COVID-19) RNA CHANTALE+probe Ql (Unsp spec) Not detected Normal NOT DETECTED [facility] Comment on above: Result Comment: When [...] for this test is supported by the [place] of [employer] and Human Service's declaration that [...] used). Performed By: #### C BC #### [facility] [address] [place] [address] Dr. Yayo Gregg PROF 14(COMP METB)on 022 Albumin [Mass/Vol] 3.0 g/dL Critically low 3.4-5.0 [facility] Comment on above: Performed By: #### I MMUNGL #### [facility] [address] [place] [address] Dr. Yayo Gregg Albumin/Globulin [Mass ratio] 0.9 {ratio} Normal [facility] Comment on above: Performed By: #### I MMUNGL #### [facility] [address] [place] [address] Dr. Yayo Gregg ALP [Catalytic activity/Vol] 95 U/L Normal 46-116 [facility] Comment on above: Performed By: #### I MMUNGL #### [facility] [address] [place] [address] Dr. Yayo Gregg ALT [Catalytic activity/Vol] 28 U/L Normal 14-59 [facility] Comment on above: Performed By: #### I MMUNGL #### [facility] [address] [address] [address] Yayo Gregg Anion gap [Moles/Vol] 11.9 mmol/L Normal Th [facility] Comment on above: Performed By: #### I MMUNGL #### [facility] [address] [address] [address] Yayo Gregg AST [Catalytic activity/Vol] 24 U/L Normal 15-37 [facility] Comment on above: Performed By: #### I MMUNGL #### [facility] [address] [address] [address] Yayo Gregg Bilirubin [Mass/Vol] 0.3 mg/dL Normal 0.2-1.0 [facility] Comment on above: Performed By: #### I MMUNGL #### [facility] [address] [address] [address] Yayo Gregg Calcium [Mass/Vol] 8.8 mg/dL Normal 8.5-10.1 [facility] Comment on above: Performed By: #### I MMUNGL #### [facility] [address] [address] [address] Yayo Gregg Chloride [Moles/Vol] 98 mmol/L Normal 98-107 [facility] Comment on above: Performed By: #### I MMUNGL #### [facility] [address] [address] [address] Yayo Gregg CO2 [Moles/Vol] 24.6 mmol/L Normal 21.0-32.0 [facility] [place] Comment on above: Performed By: #### I MMUNGL #### [facility] [address] [address] [address] Yayo Gregg Creatinine [Mass/Vol] 0.91 mg/dL Normal 0.55-1.02 [facility] Comment on above: Performed By: #### I MMUNGL #### [facility] [address] [address] [address] Yayo Gregg EGFR-AF INDIAN >60 Normal >=60 [facility] Comment on above: Performed By: #### I MMUNGL #### [facility] [address] [address] [address] Yayo Gregg EGFR-NON AF INDIAN 59 mL/min/1.73m2 Critically low >=60 [facility] Comment on above: Performed By: #### I MMUNGL #### [facility] [address] [address] [address] Yayo Gregg Globulin (S) [Mass/Vol] 3.3 g/dL Normal [facility] Comment on above: Performed By: #### I MMUNGL #### [facility] [address] [address] [address] Yayo Gregg Glucose [Mass/Vol] 95 mg/dL Normal 74-106 [facility] Comment on above: Performed By: #### I MMUNGL #### [facility] [address] [address] [address] Yayo Gregg Potassium [Moles/Vol] 4.5 mmol/L Normal 3.5-5.1 [facility] Comment on above: Performed By: #### I MMUNGL #### [facility] [address] [address] [address] Yayo Gregg Protein [Mass/Vol] 6.3 g/dL Critically low 6.4-8.2 [facility] Comment on above: Performed By: #### I MMUNGL #### [facility] [address] [address] [address] Yayo Gregg Sodium [Moles/Vol] 130 mmol/L Critically low 136-145 Th [facility] Comment on above: Performed By: #### I MMUNGL #### [facility] [address] [address] [address] Yayo Gregg Urea nitrogen [Mass/Vol] 12.0 mg/dL Normal 7.0-18.0 [facility] Comment on above: Performed By: #### I MMUNGL #### [facility] [address] [address] [address] Yayo Gregg Urea nitrogen/Creatinine [Mass ratio] 13.2 mg/mg Normal [facility] Comment on above: Performed By: #### I MMUNGL #### [facility] [address] [place] [address] Dr. Yayo Gregg PROTIMEon 01-27-2022 INR Coag (PPP) [Relative time] 0.96 {INR} Normal [facility] Comment on above: Performed By: #### I MMUNGL #### [facility] [address] [place] [address] Dr. Yyao Gregg INR GUIDELINES SEE BELOW Normal [facility] Comment on above: Result Comment: ASHLEY RED INR: 2.0 - 3.0 CONDITIONS NOT LISTED BELOW 2.5 - 3.5 FOR PROSTHETIC HEART VALVE REPLACEMENT 2.5 - 3.5 RECURRENT THROMBOSIS Performed By: #### I MMUNGL #### [facility] [address] [place] [address] Dr. Yayo Gregg PT Coag (PPP) [Time] 10.4 s Normal 9.0-11.6 [facility] Comment on above: Performed By: #### I MMUNGL #### [facility] [address] [place] [address] Dr. Yayo Gregg PTTon 01-27-2022 aPTT Coag (Bld) [Time] 31.6 s Normal 22.3-36.2 [facility] Comment on above: Performed By: #### I MMUNGL #### [facility] [address] [place] [address] Dr. Yayo Gregg TROPONIN, HIGH SENSITIVITYon 01-27-2022 HSTROP 4.7 pg/mL Normal 4.0-51.3 [facility] Comment on above: Result Comment: CUT- OFF POINTS HAVE BEEN ESTABLISHED BASED ON THE FOURTH UNIVERSAL DEFINITIONS OF MYOCARDIAL INFARCTION. THE UPPER REFERENCE LIMIT (URL) OF TROPONIN, DEFINED THE 99TH PERCENTILE OF cTnI DISTRIBUTION IN A REFERENCE POPULATION, HAS BEEN CONFIRMED THE DECISION THRESHOLD FOR IA DIAGNOSIS. Performed By: #### H STROPN #### [facility] [address] [place] [address] Dr. Yayo Gregg XR CHEST 1 Von [...] by: ANTHONY GUIDRY Date: 2022-01-27 11:47 Normal [facility] XR LSPINE 2_3 VIEWSon 2021 XR [...] by: BENJAMIN GUNN Date: 2021-12-18 14:19 Normal [facility] BASIC METABOLIC PANEL(BMP)on 01-06-2018 Anion gap 12 mmol/L Normal 9-18 [facility] Comment on above: Performed By: #### C VAMSI SHERIFFGR ####MAIN LABCLIA:[id number] [place] [address] BUN (urea nitrogen) 17 mg/dL Normal 8-23 [facility] Comment on above: Performed By: #### Yaquelin RUFFCBCGR ####MAIN LABCLIA:[id number] [facility] [address] BUN/Creatinine Ratio 22.1 mg/mg Normal [facility] Comment on above: Performed By: #### Yaquelin RUFFCBCGR ####MAIN LABCLIA:[id number] [place] [address] Calcium 7.9 mg/dL Low 8.8-10.2 [facility] Comment on above: Performed By: #### C Yaquelin SHERIFFCBCGR ####MAIN LABCLIA:[id number] [place] [address] Chloride 101 mmol/L Normal 98-107 [facility] Comment on above: Performed By: #### VAMSI RUFFGR ####MAIN LABCLIA:[id number] [place] [address] CO2 24 mmol/L Normal 22-29 [facility] Comment on above: Performed By: #### VAMSI RUFFGR ####MAIN LABCLIA:[id number] [place] [address] Creatinine 0.77 mg/dL Normal 0.50-0.90 [facility] Comment on above: Performed By: #### VAMSI RUFFGR ####MAIN LABCLIA:[id number] [place] [address] eGFR (MDRD) 77 /1.73 m2 Normal >60 mL/min [facility] Comment on above: Result Comment: Norm al RangeStage Description:1 Normal or Increased GFR >=902 Mild Decrease in GFR 60-903 Moderately Decreased GFR 30-594 Severely Decreased GFR 15-295 Kidney Failure <15 Performed By: #### MELONY RUFF ####MAIN LABCLIA:[id number] [facility] [address] Glucose mass conc 89 mg/dL Normal 74-109 [facility] Comment on above: Performed By: #### VAMSI RUFFGR ####MAIN LABCLIA:[id number] [facility] [address] Potassium molar conc 4.4 mmol/L Normal 3.5-5.1 [facility] Comment on above: Performed By: #### VAMSI RUFFGR ####MAIN LABCLIA:[id number] [place] [address] Sodium 133 mmol/L Low 136-145 [facility] Comment on above: Performed By: #### VAMSI RUFFGR ####MAIN LABCLIA:[id number] [facility] [address] CBC/DIFF GROUPon 01-06-2018 Anisocytosis presence 1+ Normal [facility] Comment on above: Performed By: #### C SHARITA ZCBCGR ####MAIN LABCLIA:[id number] [place] [address] HYPOCHROMASIA 1+ Normal [facility] Comment on above: Performed By: #### C SHARITA ZCBCGR ####MAIN LABCLIA:[id number] [place] [address] NORMOCHROMIC NO Normal [facility] Comment on above: Performed By: #### C SHARITA ZCBCGR ####MAIN LABCLIA:[id number] [place] [address] NORMOCYTIC NO [facility] Comment on above: Performed By: #### C SHARITA ZCBCGR ####MAIN LABCLIA:[id number] [place] [address] Platelets NORMAL Normal [facility] Comment on above: Performed By: #### C SHARITA ZCBCGR ####MAIN LABCLIA:[id number] [facility] [address] BAND NEUTROPHILS #(MANUAL) 152 /cmm Normal <648 [facility] Comment on above: Performed By: #### Vladimir SHERIFF ZCBCGR ####MAIN LABCLIA:[id number] [facility] [address] Eosinophils 456 /cmm High <432 [facility] Comment on above: Performed By: #### Vladimir SHERIFF ZCBCGR ####MAIN LABCLIA:[id number] [place] [address] Eosinophils/100 leukocytes 6 % High <4 [facility] Comment on above: Performed By: #### C SHARITA ZCBCGR ####MAIN LABCLIA:[id number] [place] [address] Lymphocytes 1748 /cmm Normal 960-4752 [facility] Comment on above: Performed By: #### Vladimir SHERIFF ZCBCGR ####MAIN LABCLIA:[id number] [facility] [address] Lymphocytes/100 leukocytes 23 % Normal 20-44 [facility] Comment on above: Performed By: #### Vladimir SHERIFF ZCBCGR ####MAIN LABCLIA:[id number] [place] [address] METAMYELOCYTES #(MANUAL) 76 /cmm High 0 [facility] Comment on above: Performed By: #### Vladimir SHERIFF ZCBCGR ####MAIN LABCLIA:[id number] [place] [address] Metamyelocytes/100 leukocytes 1 % High 0 [facility] Comment on above: Performed By: #### Yaquelin RUFFCBCGR ####MAIN LABCLIA:[id number] [facility] [address] Monocytes 1292 /cmm High 96-972 [facility] Comment on above: Performed By: #### Vladimir SHERIFF ZCBCGR ####MAIN LABCLIA:[id number] [place] [address] Monocytes/100 leukocytes 17 % High 2-9 [facility] Comment on above: Performed By: #### Vladimir SHERIFF ZCBCGR ####MAIN LABCLIA:[id number] [place] [address] Neutrophils 3876 /cmm Normal 6700-5264 [facility] Comment on above: Performed By: #### Vladimir SHERIFF ZCBCGR ####MAIN LABCLIA:[id number] [facility] [address] Neutrophils band/100 leukocytes 2 % Normal <6 [facility] Comment on above: Performed By: #### Vladimir SHERIFF ZCBCGR ####MAIN LABCLIA:[id number] [place] [address] Neutrophils/100 WBC Auto (Bld) 51 % Normal 50-70 [facility] Comment on above: Performed By: #### Vladimir SHERIFF ZCBCGR ####MAIN LABCLIA:[id number] [place] [address] TOTAL CELLS COUNTED 100 Normal [facility] Comment on above: Performed By: #### C SHARITA ZCBCGR ####MAIN LABCLIA:[id number] [place] [address] Erythrocyte distribution width Auto Ratio (RBC) 13.0 % Normal 11.5-14.5 [facility] Comment on above: Performed By: #### C SHARITA ZCBCGR ####MAIN LABCLIA:[id number] [facility] [address] Erythrocytes (RBC) 3.49 10 6/cmm Low 4.20-5.40 [facility] Comment on above: Performed By: #### C Yaquelin SHERIFFCBCGR ####MAIN LABCLIA:[id number] [place] [address] Hematocrit (HCT) 29.4 % Low 38.0-47.0 [facility] Comment on above: Performed By: #### C Yaquelin SHERIFFCBCGR ####MAIN LABCLIA:[id number] [place] [address] Hemoglobin mass conc (Bld) 10.1 g/dL Low 12.0-16.4 [facility] Comment on above: Performed By: #### C Yaquelin SHERIFFCBCGR ####MAIN LABCLIA:[id number] [place] [address] MCH 34.5 g/dL Normal 32.0-36.0 [facility] Comment on above: Performed By: #### C SHARITA ZCBCGR ####MAIN LABCLIA:[id number] [place] [address] MCH 29.1 pg Normal 27.0-31.0 [facility] Comment on above: Performed By: #### C SHARITA ZCBCGR ####MAIN LABCLIA:[id number] [place] [address] MCV 84.3 fL Normal 80.0-96.0 [facility] Comment on above: Performed By: #### C SHARITA ZCBCGR ####MAIN LABCLIA:[id number] [place] [address] Platelets 359 10 3/cmm Normal 130-400 [facility] Comment on above: Performed By: #### C BC, ZCBCGR ####MAIN LABCLIA:[id number] [place] [address] WBC (Leukocytes) 7.6 10 3/cmm Normal 4.8-10.8 [facility] Comment on above: Performed By: #### C BC, ZCBCGR ####MAIN LABCLIA:[id number] [place] [address] FREE T4 (FREE THYROXINE)on 0 01-06-2018 Thyroxine (T4) free 2.46 ng/dL High 0.93-1.7 [facility] Comment on above: Performed By: #### C BC, ZCBCGR ####MAIN LABCLIA:[id number] [place] [address] IM Progress Noteon 8 IM Progress Note [address] [place], [place] [address] [address] 77 [id number] Donnell Barton MD 4W / [id number] Report #: [id number] Hospitalist Progress Note Date/Time: 01/06/18805 Report Status: [...] fine and wants to go back to [place]. Her will be driving. - Reviewed laboratory [...] have her follow-up with her physician in [place]. (2) Hyponatremia Status: Improved Plan: Sodium of 133-asymptomatic urine sodium slightly elevated at 35. (3) Essential hypertension Status: Stable (4) Hypothyroidism Plan: Suppressed TSH, her physician from [place] just called her in down dosed her [...] 0817 Electronically Cosigned By: Cosigned Date/Time: Normal [facility] T3 FREEon 01-06-2018 Triiodothyronine (T3) free 5.92 pg/mL High 2.0-4.4 [facility] Comment on above: Performed By: #### C VAMSI SHERIFFGR ####MAIN LABCLIA:[id number] [place] [address] CBC/DIFF GROUPon 01-05-2018 NORMOCHROMIC YES Normal [facility] Comment on above: Performed By: #### C MELONY SHERIFF ####MAIN LABCLIA:[id number] [place] [address] NORMOCYTIC YES Normal [facility] Comment on above: Performed By: #### C MELONY SHERIFF ####MAIN LABCLIA:[id number] [place] [address] Platelets NORMAL Normal [facility] Comment on above: Performed By: #### Vladimir SHERIFF ZCBCGR ####MAIN LABCLIA:[id number] [place] [address] BAND NEUTROPHILS #(MANUAL) 414 /cmm Normal <648 [facility] Comment on above: Performed By: #### C SHARITA ZCBCGR ####MAIN LABCLIA:[id number] [place] [address] Eosinophils 552 /cmm High <432 [facility] Comment on above: Performed By: #### C SHARITA ZCBCGR ####MAIN LABCLIA:[id number] [facility] [place] [address] Eosinophils/100 leukocytes 4 % Normal <4 [facility] Comment on above: Performed By: #### Vladimir SHERIFF ZCBCGR ####MAIN LABCLIA:[id number] [place] [address] Lymphocytes 690 /cmm Low 960-4752 [facility] Comment on above: Performed By: #### C SHARITA ZCBCGR ####MAIN LABCLIA:[id number] [place] [address] Lymphocytes/100 leukocytes 5 % Low 20-44 [facility] Comment on above: Performed By: #### Vladimir SHERIFF ZCBCGR ####MAIN LABCLIA:[id number] [place] [address] Monocytes 1242 /cmm High 96-972 [facility] Comment on above: Performed By: #### C SHARITA ZCBCGR ####MAIN LABCLIA:[id number] [place] [address] Monocytes/100 leukocytes 9 % Normal 2-9 [facility] Comment on above: Performed By: #### C SHARITA ZCBCGR ####MAIN LABCLIA:[id number] [place] [address] Neutrophils 70776 /cmm High 8984-5939 [facility] Comment on above: Performed By: #### C SHARITA, ZCBCGR ####MAIN LABCLIA:[id number] [place] [address] Neutrophils band/100 leukocytes 3 % Normal <6 [facility] Comment on above: Performed By: #### C SHARITA, ZCBCGR ####MAIN LABCLIA:[id number] [place] [address] Neutrophils/100 WBC Auto (Bld) 79 % High 50-70 [facility] Comment on above: Performed By: #### C SHARITA, ZCBCGR ####MAIN LABCLIA:[id number] [place] [address] TOTAL CELLS COUNTED 100 Normal [facility] Comment on above: Performed By: #### C SHARITA, ZCBCGR ####MAIN LABCLIA:[id number] [place] [address] Hematocrit (HCT) 36.0 % Low 38.0-47.0 [facility] Comment on above: Performed By: #### C SHARITA ZCBCGR ####MAIN LABCLIA:[id number] [place] [address] Hemoglobin mass conc (Bld) 12.2 g/dL Normal 12.0-16.4 [facility] Comment on above: Performed By: #### C SHARITA, ZCBCGR ####MAIN LABCLIA:[id number] [place] [address] MCH 28.6 pg Normal 27.0-31.0 [facility] Comment on above: Performed By: #### C SHARITA ZCBCGR ####MAIN LABCLIA:[id number] [place] [address] MCV 84.1 fL Normal 80.0-96.0 [facility] Comment on above: Performed By: #### C SHARITA, ZCBCGR ####MAIN LABCLIA:[id number] [place] [address] WBC (Leukocytes) 13.8 10 3/cmm High 4.8-10.8 [facility] Comment on above: Performed By: #### C , ZCBCGR ####MAIN LABCLIA:[id number] [place] [address] CHEST 2 VIEWSon 01-05-2018 CHEST [address] [phone]____ Pt Location: 4W/ ADM IN Pt RM#: [id number] MR #: [id number] DATE: 01/05/18 123 ADM#: [id number] #: [id number] JANET TRINIDADOB: 1940 Age/Sex: 77 / F [...] JLECC: ROSY Salvador; Doctor,No; Donnell Barton MD [facility] COMPLETE BLOOD COUNTon 01-05 Erythrocyte distribution width Auto Ratio (RBC) 12.7 % Normal 11.5-14.5 [facility] Comment on above: Performed By: #### C BC, ZCBCGR ####MAIN LABCLIA:[id number] [place] [address] Erythrocytes (RBC) 4.28 10 6/cmm Normal 4.20-5.40 [facility] Comment on above: Performed By: #### C BC, ZCBCGR ####MAIN LABCLIA:[id number] [place] [address] MCH 34.0 g/dL Normal 32.0-36.0 [facility] Comment on above: Performed By: #### C BC, ZCBCGR ####MAIN LABCLIA:[id number] [place] [address] Platelets 423 10 3/cmm High 130-400 [facility] Comment on above: Performed By: #### C BC, ZCBCGR ####MAIN LABCLIA:[id number] [place] [address] COMPREHENSIVE METABOLIC PANE Umberto 01-05-2018 Alanine aminotransferase (ALT) 15 U/L Normal 0-33 [facility] Comment on above: Performed By: #### C MP MG ####MAIN LABCLIA:[id number] [place] [address] Albumin 3.3 g/dL Normal 3.0-4.5 [facility] Comment on above: Performed By: #### C MP, MG ####MAIN LABCLIA:[id number] [place] [address] Albumin/Globulin Ratio 1.2 {ratio} Normal 1-1.4 [facility] Comment on above: Performed By: #### C MP, MG ####MAIN LABCLIA:[id number] [place] [address] Alkaline phosphatase (ALP) 76 U/L Normal 35-104 [facility] Comment on above: Performed By: #### C MP, MG ####MAIN LABCLIA:[id number] [facility] [place] [address] Anion gap 15 mmol/L Normal 9-18 [facility] Comment on above: Performed By: #### C MP, MG ####MAIN LABCLIA:[id number] [facility] [place] [address] Aspartate aminotransferase (AST) 16 U/L Normal 0-32 [facility] Comment on above: Performed By: #### C MP, MG ####MAIN LABCLIA:[id number] [facility] [place] [address] Bilirubin (total) 0.4 mg/dL Normal 0.2-1.2 [facility] Comment on above: Performed By: #### C MP, MG ####MAIN LABCLIA:[id number] [place] [address] BUN (urea nitrogen) 26 mg/dL High 8-23 [facility] Comment on above: Performed By: #### C MP, MG ####MAIN LABCLIA:[id number] [place] [address] BUN/Creatinine Ratio 22.2 mg/mg Normal [facility] Comment on above: Performed By: #### C MP, MG ####MAIN LABCLIA:[id number] [facility] [address] Calcium 8.5 mg/dL Low 8.8-10.2 [facility] Comment on above: Performed By: #### C MP, MG ####MAIN LABCLIA:[id number] [facility] [address] Chloride 90 mmol/L Low 98-107 [facility] Comment on above: Performed By: #### C MP, MG ####MAIN LABCLIA:[id number] [facility] [address] CO2 26 mmol/L Normal 22-29 [facility] Comment on above: Performed By: #### C MP, MG ####MAIN LABCLIA:[id number] [facility] [address] Creatinine 1.17 mg/dL High 0.50-0.90 [facility] Comment on above: Performed By: #### C MP, MG ####MAIN LABCLIA:[id number] [facility] [address] eGFR (MDRD) 47 /1.73 m2 Low >60 mL/min [facility] Comment on above: Result Comment: Norm al RangeStage Description:1 Normal or Increased GFR >=902 Mild Decrease in GFR 60-903 Moderately Decreased GFR 30-594 Severely Decreased GFR 15-295 Kidney Failure <15 Performed By: #### C MP, MG ####MAIN LABCLIA:[id number] [place] [address] Globulin 2.7 g/dL Normal 2.3-3.5 [facility] Comment on above: Performed By: #### C MP, MG ####MAIN LABCLIA:[id number] [place] [address] Glucose mass conc 136 mg/dL High 74-109 [facility] Comment on above: Performed By: #### C MP, MG ####MAIN LABCLIA:[id number] [place] [address] Potassium molar conc 4.5 mmol/L Normal 3.5-5.1 [facility] Comment on above: Performed By: #### C MP, MG ####MAIN LABCLIA:[id number] [place] [address] Protein 6.0 g/dL Low 6.4-8.3 [facility] Comment on above: Performed By: #### C MP, MG ####MAIN LABCLIA:[id number] [place] [address] Sodium 126 mmol/L Low 136-145 [facility] Comment on above: Performed By: #### C MP, MG ####MAIN LABCLIA:[id number] [place] [address] CT HEAD WO 01-05-2018 CT HEAD WO [address] [phone]____ Pt Location: 4W/ ADM IN Pt RM#: [id number] MR #: [id number] DATE: 01/05/18 1236 ADM#: [id number] #: [id number] JANET TRINIDADOB: 1940 Age/Sex: 77 / F [...] matter.REPORT# [id number] READ BY: Cielo Pacheco M.D. [id number] REPORT RELEASED BY: Cielo Pacheco M.D. 01/05/18 1502Transcribed Date/Time: 01/05/18 1339 PLPCC: ROSY Salvador; Doctor,No; Donnell Barton MD [facility] Emergency Room Visit Reporto n 01-05-2018 Emergency Room Visit Report [address] [place] [id number] TANGELA TRINIDAD 1940 (77 F) [id number] Helio Hoang 4W Report #: [id number] PCP: No Doctor Emergency Room Visit Report [...] near syncope at [facility]. Pt reports recent bronchitis that she [...] Allergy Mild Rash Verified 01/05/18 12:40 Antibiotics) Ajeivqz-Ond-Lot Reductase Allergy Unknown Verified 01/05/18 12:40 Inhibitor [...] PO BID 01/05/18 01/05/18 raNITIdine HCl [Acid Editorial Cartoonist] 150 mg PO BID 01/05/18 01/05/18 ROS [...] % (Manual) (<4) % Neutrophils # (Manual) (8401-4855) /cmm Band Neutrophils # (<648) /cmm Lymphocytes [...] Appearance Clear Urine pH 7.0 Ur Specific [place] <=1.005 Urine Protein Negative (NEGATIVE) Urine Glucose [...] (Manual) 4 (<4) % Neutrophils # (Manual) 19772 H (4152-9313) /cmm Band Neutrophils # 414 (<648) /cmm [...] Color Urine Appearance Urine pH Ur Specific [place] Urine Protein (NEGATIVE) Urine Glucose (UA) (NEGATIVE) [...] Category Date Time Status Activity: Up Ad Nerda CONTINUOUS ADL 01/05/18 16:08 Active Intake and [...] an inhaler. This was obtained by the [facility] pharmacy in [facility]. 01/05/18 14:40 I discussed this patient with [...] Sohan Grover MD Cosigned Date/Time: 01/05/18 190 [facility] History & Physicalon 018 History & Physical [address] [place] [id number] TANGELA TRINIDAD [id number] Donnell Barton MD 4W / 4106-B 1940 Report #: [id number] Admission Date: 01/05/18 History Physical Date/Time: 01/05/18 [...] episode. Patient is visiting this area from [place] [...] asymptomatic. 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 which shows normal sinus rhythm, EKG shows [...] Allergy Mild Rash Verified 01/05/18 12:40 Antibiotics) Iakymyj-Fcr-Guh Reductase Allergy Unknown Verified 01/05/18 12:40 Inhibitor [...] PO BID 01/05/18 01/05/18 raNITIdine HCl [Acid Editorial Cartoonist] 150 mg PO BID 01/05/18 01/05/18 Allergies [...] 1541 Electronically Cosigned By: Cosigned Date/Time: Normal [facility] MAGNESIUMon 01-05-2018 Magnesium 2.1 mg/dL Normal 1.6-2.6 [facility] Comment on above: Performed By: #### C MP, MG ####MAIN LABCLIA:[id number] [place] [address] SODIUM,URINE RANDOMon 2017 SODIUM,URINE RANDOM 35 mmol/L Normal [facility] Comment on above: Order Comment: COLLE CTED BY: Sherine Tenorio Result Comment: The reference range has not been established for this test. Performed By: #### C BC, ZCBCGR ####MAIN LABCLIA:[id number] [place] [address] THYROID STIMULATING HORMONEo n 01-05-2018 Thyroid stimulating hormone (TSH) 0.16 uIU/mL Low 0.27-4.20 [facility] Comment on above: Performed By: #### C BC, ZCBCGR ####MAIN LABCLIA:[id number] [place] [address] TROPONIN Ton 01-05-2018 Troponin T.cardiac mass conc ug/L Normal <0.010 [facility] Comment on above: Result Comment: Valu es [...] Performed By: #### C BC, ZCBCGR ####MAIN LABCLIA:[id number] [place] [address] Troponin T.cardiac mass conc ug/L Normal <0.010 [facility] Comment on above: Result Comment: Valu es [...] hours. Performed By: #### T ROPT ####MAIN LABCLIA:[id number] [facility] [place] [address] URINALYSISon 01-05-2018 UA APPEARANCE CLEAR Normal [facility] Comment on above: Order Comment: COLLE CTED BY: Tye acostaOID-MIDSTREAM Performed By: #### U A ####MAIN LABCLIA:[id number] [facility] [place] [address] UA BACTERIA NONE Normal NONE [facility] Comment on above: Order Comment: COLLE CTED BY: Tye acostaOID-MIDSTREAM Performed By: #### U A ####MAIN LABCLIA:[id number] [facility] [place] [address] UA SQUAMOUS EPITHELIAL 0-2 Normal [facility] Comment on above: Order Comment: COLLE CTED BY: Tye acostaOID-MIDSTREAM Performed By: #### U A ####MAIN LABCLIA:[id number] [facility] [address] UA WBC 0-2 Normal 0-2 [facility] Comment on above: Order Comment: COLLE CTED BY: Tye acostaOID-MIDSTREAM Performed By: #### U A ####MAIN LABCLIA:[id number] [facility] [address] Urine, color YELLOW Normal [facility] Comment on above: Order Comment: COLLE CTED BY: Tye acostaOID-MIDSTREAM Performed By: #### U A ####MAIN LABCLIA:[id number] [facility] [place] [address] Urine, erythrocytes 0-2 Normal 0-2 [facility] Comment on above: Order Comment: COLLE CTED BY: davedVOID-MIDSTREAM Performed By: #### U A ####MAIN LABCLIA:[id number] [facility] [address] UA BILIRUBIN Negative Normal NEGATIVE [facility] Comment on above: Order Comment: COLLE CTED BY: Tye acostaOID-MIDSTREAM Performed By: #### U A ####MAIN LABCLIA:[id number] [place] [address] UA BLOOD Negative Normal NEGATIVE [facility] Comment on above: Order Comment: COLLE CTED BY: Tye acostaOID-MIDSTREAM Performed By: #### U A ####MAIN LABCLIA:[id number] [facility] [address] UA LEUKOCYTE ESTERASE TRACE Normal NEGATIVE [facility] Comment on above: Order Comment: COLLE CTED BY: Tye acostaOID-MIDSTREAM Performed By: #### U A ####MAIN LABCLIA:[id number] [facility] [address] UA NITRITES Negative Normal NEGATIVE [facility] Comment on above: Order Comment: COLLE CTED BY: Tye acostaOID-MIDSTREAM Performed By: #### U A ####MAIN LABCLIA:[id number] [facility] [address] UA PH 7.0 Normal [facility] Comment on above: Order Comment: COLLE CTED BY: Tye acostaOID-MIDSTREAM Performed By: #### U A ####MAIN LABCLIA:[id number] [facility] [address] UA PROTEIN Negative Normal NEGATIVE [facility] Comment on above: Order Comment: COLLE CTED BY: Tye acostaOID-MIDSTREAM Performed By: #### U A ####MAIN LABCLIA:[id number] [facility] [address] UA SPECIFIC GRAVITY <=1.005 Normal [facility] Comment on above: Order Comment: COLLE CTED BY: Tye aocstaOID-MIDSTREAM Performed By: #### U A ####MAIN LABCLIA:[id number] [place] [address] UA UROBILINOGEN 0.2 mg/dL Normal 0.0-1.0 [facility] Comment on above: Order Comment: COLLE CTED BY: davedVOID-MIDSTREAM Performed By: #### U A ####MAIN LABCLIA:[id number] [place] [address] Urine, glucose Negative Normal NEGATIVE [facility] Comment on above: Order Comment: COLLE CTED BY: davedVOID-MIDSTREAM Performed By: #### U A ####MAIN LABCLIA:[id number] [place] [address] Urine, ketones presence Negative Normal NEGATIVE [facility] Comment on above: Order Comment: COLLE CTED BY: davedVOID-MIDSTREAM Performed By: #### U A ####MAIN LABCLIA:[id number] [place] [address] URINE SOURCE VOID-MIDSTREAM Normal [facility] Comment on above: Order Comment: COLLE CTED BY: davedVOID-MIDSTREAM Performed By: #### U A ####MAIN LABCLIA:[id number] [place] [address] VASCULAR RISK PANELon 2017 Cholesterol 180 mg/dL Normal 0-199 [facility] Comment on above: Order Comment: Comme nts: Use blood from ED if available Performed By: #### Yaquelin RUFFCBCGR ####MAIN LABCLIA:[id number] [place] [address] HDL Cholesterol 42 mg/dL Low >65 [facility] Comment on above: Order Comment: Comme nts: Use blood from ED if available Performed By: #### Yaquelin RUFFCBCGR ####MAIN LABCLIA:[id number] [place] [address] LDL Cholesterol 98 mg/dL Normal <129 [facility] Comment on above: Order Comment: Comme nts: Use blood from ED if available Performed By: #### C BC, ZCBCGR ####MAIN LABCLIA:[id number] [place] [address] Triglyceride 202 mg/dL High 0-199 [facility] Comment on above: Order Comment: Comme nts: Use blood from ED if available Performed By: #### C BC, ZCBCGR ####MAIN LABCLIA:[id number] [place] [address] VLDL CHOLESTEROL 40 mg/dL Normal 5-40 [facility] Comment on above: Order Comment: Comme nts: Use blood from ED if available Performed By: #### C BC, ZCBCGR ####MAIN LABCLIA:[id number] [place] [address] Vital Signs Date Time Vital Sign Value Performing Clinician Facility 01-02-2024 11:39-0400 Body height 152.4 cm DO Kvng Ball Work Phone: [facility] 01-02-2024 11:39-0400 Body mass index (BMI) [Ratio] 26.6 kg/m2 DO Kvng Ball Work Phone: [facility] 01-02-2024 11:39-0400 Body weight 61.91 kg DO Kvng Ball Work Phone: [facility] 01-02-2024 11:39-0400 Diastolic blood pressure 85 mm[Hg] DO Kvng Ball Work Phone: [facility] 01-02-2024 11:39-0400 Heart rate 66 /min DO Kvng Ball Work Phone: [facility] 01-02-2024 11:39-0400 Respiratory rate 12 /min DO Kvng Ball Work Phone: [facility] 01-02-2024 11:39-0400 Systolic blood pressure 124 mm[Hg] DO Kvng Ball Work Phone: [facility] 05-27-2023 11:00-0500 Body height 152.4 cm Kvng Ball Other [facility] Other 05-27-2023 11:00-0500 Diastolic blood pressure 84 mm[Hg] Kvng Ball Other [facility] Other 05-27-2023 11:00-0500 Systolic blood pressure 124 mm[Hg] Kvng Ball Other [facility] Other 03-04-2023 13:45-0400 Body height 152.4 cm Kvng Ball Other [facility] Other 03-04-2023 13:45-0400 Body mass index (BMI) [Ratio] 28.47 kg/m2 Kvng Ball Other [facility] Other 03-04-2023 13:45-0400 Body weight 66.13 kg Kvng Ball Other [facility] Other 03-04-2023 13:45-0400 Diastolic blood pressure 80 mm[Hg] Kvng Ball Other [facility] Other 03-04-2023 13:45-0400 Respiratory rate 12 /min Kvng Ball Other [facility] Other 03-04-2023 13:45-0400 Systolic blood pressure 117 mm[Hg] Kvng Ball Other [facility] Other 02-22-2023 11:00-0400 Body height 152.4 cm Kvng Ball Other [facility] Other 02-22-2023 11:00-0400 Body mass index (BMI) [Ratio] 28.39 kg/m2 Kvng Ball Other [facility] Other 02-22-2023 11:00-0400 Body weight 65.95 kg Kvng Ball Other [facility] Other 02-22-2023 11:00-0400 Diastolic blood pressure 83 mm[Hg] Kvng Ball Other [facility] [employer] Other 02-22-2023 11:00-0400 Respiratory rate 12 /min Kvng Ball Other [facility] Other 02-22-2023 11:00-0400 Systolic blood pressure 132 mm[Hg] Kvng Ball Other [facility] Other 01-24-2023 09:18-0400 Diastolic blood pressure 72 mm[Hg] DO Kvng Ball Work Phone: [facility] 01-24-2023 09:18-0400 Heart rate 56 /min DO Kvng Ball Work Phone: [facility] 01-24-2023 09:18-0400 Respiratory rate 14 /min DO Kvng Ball Work Phone: [facility] 01-24-2023 09:18-0400 SaO2% (BldA) [Mass fraction] 98 % DO Kvng Ball Work Phone: [facility] 01-24-2023 09:18-0400 Systolic blood pressure 126 mm[Hg] DO Kvng Ball Work Phone: [facility] 01-24-2023 07:44-0400 Body height 154.94 cm DO Kvng Ball Work Phone: [facility] 01-24-2023 07:44-0400 Body temperature 97.8 [degF] DO Kvng Ball Work Phone: [facility] 01-24-2023 07:44-0400 Body weight 65.31 kg DO Kvng Ball Work Phone: [facility] 11-18-2022 12:00-0400 Body height 152.4 cm Kvng Ball Other [facility] [employer] Other 11-18-2022 12:00-0400 Body mass index (BMI) [Ratio] 28.74 kg/m2 Kvng Ball Other [facility] Other 11-18-2022 12:00-0400 Body weight 66.77 kg Kvng Ball Other [facility] Other 11-18-2022 12:00-0400 Diastolic blood pressure 82 mm[Hg] Kvng Ball Other [facility] Other 11-18-2022 12:00-0400 Respiratory rate 12 /min Kvng Ball Other [facility] [employer] Other 11-18-2022 12:00-0400 Systolic blood pressure 125 mm[Hg] Kvng Ball Other [facility] Other 10-28-2022 14:05-0400 Diastolic blood pressure 73 mm[Hg] DO Kvng Ball Work Phone: [facility] 10-28-2022 14:05-0400 Heart rate 60 /min DO Kvng Ball Work Phone: [facility] 10-28-2022 14:05-0400 Respiratory rate 18 /min DO Kvng Ball Work Phone: [facility] 10-28-2022 14:05-0400 SaO2% (BldA) [Mass fraction] 96 % DO Kvng Ball Work Phone: [facility] 10-28-2022 14:05-0400 Systolic blood pressure 117 mm[Hg] DO Kvng Ball Work Phone: [facility] 10-28-2022 11:42-0400 Body height 154.94 cm DO Kvng Ball Work Phone: [facility] 10-28-2022 11:42-0400 Body temperature 97.9 [degF] DO Kvng Ball Work Phone: [facility] 10-28-2022 11:42-0400 Body weight 65.77 kg DO Kvng Ball Work Phone: [facility] 10-12-2022 15:00-0400 Body height 152.4 cm Kvng Ball Other [facility] Other 10-12-2022 15:00-0400 Body mass index (BMI) [Ratio] 28.78 kg/m2 Kvng Ball Other [facility] Other 10-12-2022 15:00-0400 Body weight 66.86 kg Kvng Ball Other [facility] Other 10-12-2022 15:00-0400 Diastolic blood pressure 80 mm[Hg] Kvng Ball Other [facility] Other 10-12-2022 15:00-0400 Respiratory rate 12 /min Kvng Ball Other [facility] Other 10-12-2022 15:00-0400 Systolic blood pressure 116 mm[Hg] Kvng Ball Other [facility] Other 07-27-2022 14:38-0500 Body height 152.4 cm Mavis Santiago MD Work Phone: [facility] 07-27-2022 14:38-0500 Body temperature 98.1 [degF] Mavis Santiago MD Work Phone: [facility] 07-27-2022 14:38-0500 Body weight 66.5 kg Mavis Santiago MD Work Phone: [facility] 07-27-2022 14:38-0500 Diastolic blood pressure 72 mm[Hg] Mavis Santiago MD Work Phone: [facility] 07-27-2022 14:38-0500 Heart rate 64 /min Mavis Santiago MD Work Phone: [facility] 07-27-2022 14:38-0500 Respiratory rate 16 /min Mavis Santiago MD Work Phone: [facility] 07-27-2022 14:38-0500 SaO2% (BldA) [Mass fraction] 97 % Mavis Santiago MD Work Phone: [facility] 07-27-2022 14:38-0500 Systolic blood pressure 125 mm[Hg] Mavis Santiago MD Work Phone: [facility] 07-26-2022 09:19-0500 Diastolic blood pressure 69 mm[Hg] DO Kvng Ball Work Phone: [facility] 07-26-2022 09:19-0500 Heart rate 59 /min DO Kvng Ball Work Phone: [facility] 07-26-2022 09:19-0500 Respiratory rate 16 /min DO Kvng Ball Work Phone: [facility] 07-26-2022 09:19-0500 SaO2% (BldA) [Mass fraction] 98 % DO Kvng Ball Work Phone: [facility] 07-26-2022 09:19-0500 Systolic blood pressure 111 mm[Hg] DO Kvng Ball Work Phone: [facility] 07-26-2022 07:19-0500 Body height 154.94 cm DO Kvng Ball Work Phone: [facility] 07-26-2022 07:19-0500 Body temperature 97.7 [degF] DO Kvng Ball Work Phone: [facility] 07-26-2022 07:19-0500 Body weight 66.22 kg DO Kvng Ball Work Phone: [facility] 07-21-2022 14:30-0500 Body height 152.4 cm Kvng Ball Other [facility] Other 01-11-2023 14:30-0500 Body mass index (BMI) [Ratio] 28.82 kg/m2 Kvng Ball Other [facility] Other 07-21-2022 14:30-0500 Body weight 66.95 kg Kvng Ball Other [facility] Other 07-21-2022 14:30-0500 Diastolic blood pressure 70 mm[Hg] Kvng Ball Other [facility] Other 07-21-2022 14:30-0500 Respiratory rate 12 /min Kvng Ball Other [facility] Other 07-21-2022 14:30-0500 Systolic blood pressure 118 mm[Hg] Kvng [employer] Other [facility] Other 05-25-2022 13:02-0500 Body temperature 96.91 [degF] [place] Work Phone: [facility] 05-25-2022 13:02-0500 Diastolic blood pressure 88 mm[Hg] Chair [place] Work Phone: [facility] 05-25-2022 13:02-0500 Heart rate 68 /min Chair [place] Work Phone: [facility] 05-25-2022 13:02-0500 Respiratory rate 18 /min Chair [place] Work Phone: [facility] 05-25-2022 13:02-0500 SaO2% (BldA) [Mass fraction] 100 % Chair Ryan Work Phone: [facility] 05-25-2022 13:02-0500 Systolic blood pressure 146 mm[Hg] Chair Ryan Work Phone: [facility] 05-18-2022 15:42-0500 Body temperature 98.1 [degF] Mavis Santiago MD Work Phone: [facility] 05-18-2022 15:42-0500 Body weight 68.04 kg Mavis Santiago MD Work Phone: [facility] 05-18-2022 15:42-0500 Diastolic blood pressure 78 mm[Hg] Mavis Santiago MD Work Phone: [facility] 05-18-2022 15:42-0500 Heart rate 78 /min Mavis Santiago MD Work Phone: [facility] 05-18-2022 15:42-0500 Respiratory rate 16 /min Mavis Santiago MD Work Phone: [facility] 05-18-2022 15:42-0500 SaO2% (BldA) [Mass fraction] 98 % Mavis Santiago MD Work Phone: [facility] 05-18-2022 15:42-0500 Systolic blood pressure 122 mm[Hg] Mavis Santiago MD Work Phone: [facility] Encounters Encounter Date Encounter Type Care [...] [facility] [place] Work Phone: Start: 03-16-2024 End: 03-16-2024 ambulatory DO Kvng Melgar Work Phone: [facility] Work Phone: Start: 03-01-2024 End: 03-01-2024 ambulatory LORELEI HURTADO Not Available Start: 01-31-2024 End: 01-31-2024 ambulatory LORELEI HURTADO Not Available Start: 01-25-2024 End: 01-25-2024 ambulatory TED GILMORE Not Available Start: 01-02-2024 End: 01-02-2024 Patient encounter procedure DO Kvng Melgar Work Phone: [facility] Work Phone: Start: 09-15-2023 End: 09-15-2023 ambulatory Imad Asaad Other [facility] Other Start: 09-15-2023 Telephone encounter Imad Asaad [facility] Start: 08-10-2023 End: 08-10-2023 ambulatory Imad Asaad Other [facility] Other Start: 08-10-2023 Office outpatient vi sit 25 minutes Imad Asaad [facility] Start: 08-01-2023 End: 08-01-2023 ambulatory Kvng Melgar Other [facility] Other Start: 08-01-2023 Telephone encounter Kvng Melgar [facility] Start: 07-25-2023 End: 07-25-2023 Patient encounter procedure DO Kvng Melgar Work Phone: [facility] Work Phone: Start: 07-25-2023 End: 07-25-2023 ambulatory DO Kvng Melgar Work Phone: [facility] Work Phone: Start: 07-06-2023 End: 07-06-2023 ambulatory Imad Asaad Other [facility] Other Start: 07-06-2023 Telephone encounter Imad Asaad [facility] Start: 06-20-2023 End: 06-20-2023 ambulatory Kvng Ball Other [facility] Other Start: 06-20-2023 Telephone encounter Kvng Ball [facility] Start: 06-15-2023 End: 06-15-2023 ambulatory Kvng Ball Other [facility] Other Start: 06-15-2023 Telephone encounter Kvng Ball [facility] Start: 06-08-2023 End: 06-08-2023 ambulatory Kvng Ball Other [facility] Other Start: 06-08-2023 Telephone encounter Kvng Ball [facility] Start: 05-31-2023 End: 05-31-2023 ambulatory Kvng Ball Other [facility] Other Start: 05-31-2023 Telephone encounter Kvng Ball [facility] Start: 05-29-2023 End: 05-29-2023 ambulatory Kvng Ball Other [facility] Other Start: 05-29-2023 Telephone encounter Kvng Ball [facility] Start: 05-28-2023 End: 05-28-2023 ambulatory Kvng Ball Other [facility] Other Start: 05-28-2023 Telephone encounter Kvng Ball [facility] Start: 05-27-2023 End: 05-27-2023 ambulatory Kvng Ball Other [facility] Other Start: 05-27-2023 Office outpatient vi sit 25 minutes Kvng Ball [facility] Start: 05-25-2023 End: 05-25-2023 ambulatory Kvng Ball Other [facility] Other Start: 05-25-2023 Telephone encounter Kvng Ball [facility] Start: 05-20-2023 End: 05-20-2023 ambulatory Kvng Ball Other [facility] Other Start: 05-20-2023 Telephone encounter Kvng Melgar [facility] Start: 05-10-2023 End: 05-10-2023 ambulatory Imad Asaad Other [facility] Other Start: 05-10-2023 Telephone encounter Imad Asaad [facility] Start: 04-26-2023 End: 04-26-2023 ambulatory Kvng Melgar Other [facility] Other Start: 04-26-2023 Nursing evaluation o f patient and report Kvng Melgar [facility] Start: 03-23-2023 End: 03-23-2023 ambulatory Imad Asaad Other [facility] Other Start: 03-23-2023 Telephone encounter Imad Asaad [facility] Start: 03-10-2023 End: 03-10-2023 ambulatory Kvng Melgar Other [facility] Other Start: 03-10-2023 Telephone encounter Kvng Melgar [facility] Start: 03-07-2023 End: 03-07-2023 ambulatory Kvng Melgar Other [facility] Other Start: 03-07-2023 Telephone encounter Kvng Melgar [facility] Start: 03-04-2023 End: 03-04-2023 ambulatory Kvng Melgar Other [facility] Other Start: 03-04-2023 Office outpatient vi sit 15 minutes Kvng Ermelinda [facility] Start: 02-28-2023 End: 02-28-2023 ambulatory Kvng Melgar Other [facility] Other Start: 02-28-2023 Telephone encounter Kvng Melgar [facility] Start: 02-22-2023 End: 02-22-2023 ambulatory Kvng Ermelinda Other [facility] Other Start: 02-22-2023 Office outpatient vi sit 25 minutes Kvng Melgar [facility] Start: 02-21-2023 End: 02-21-2023 ambulatory Kvng Melgar Other [facility] Other Start: 02-21-2023 Telephone encounter Kvng Melgar [facility] Start: 01-24-2023 End: 01-24-2023 ambulatory Sadiq Beckham Other [facility] Other Start: 01-24-2023 Telephone encounter Sadiq Pollard [facility] Start: 01-24-2023 End: 01-24-2023 Admission to same day surgery center DO [employer] Work Phone: [facility] Work Phone: Start: 12-28-2022 End: 12-28-2022 ambulatory Kvng Melgar Other [facility] Other Start: 12-28-2022 Telephone encounter Kvng Melgar [facility] Start: 11-19-2022 End: 11-19-2022 ambulatory Kvng Melgar Other [facility] Other Start: 11-19-2022 Telephone encounter Kvng Melgar [facility] Start: 11-18-2022 End: 11-18-2022 ambulatory Kvng Melgar Other [facility] Other Start: 11-18-2022 Patient encounter procedure Kvng Melgar [facility] Start: 11-01-2022 End: 11-01-2022 ambulatory Imad Asaad Other [facility] Other Start: 11-01-2022 Telephone encounter Imad Asaad [facility] Start: 10-28-2022 Telephone encounter Sadiq Pollard [facility] Start: 10-28-2022 End: 10-28-2022 Admission to same day surgery center DO Kvng Ermelinda Work Phone: [facility] Work Phone: Start: 10-28-2022 End: 10-28-2022 ambulatory DO Kvng Melgar Work Phone: [facility] Work Phone: Start: 10-21-2022 End: 10-21-2022 ambulatory Kvng Melgar Other [facility] Other Start: 10-21-2022 Telephone encounter Kvng Armstrong [facility] Start: 10-20-2022 End: 10-21-[address] KVNG MELGAR Facility:[facility] Start: 10-12-2022 End: 10-12-2022 ambulatory Kvng Melgar Other [facility] Other Start: 10-12-2022 Office outpatient vi sit 15 minutes Kvng Melgar [facility] Start: 10-12-2022 Telephone encounter Kvng Armstrong [employer] Start: 09-27-2022 End: 10-13-[address] KVNG MELGAR Facility: Start: 07-29-2022 End: 07-29-2022 ambulatory Kvng Melgar Other [facility] Other Start: 07-29-2022 Telephone encounter Kvng Armstrong [facility] Start: 07-27-2022 End: 07-27-2022 ambulatory KVNG MELGAR Facility:[facility] Start: 07-27-2022 End: 07-27-2022 Office outpatient visit 15 minutes Mavis Santiago MD Work Phone: Hematology/Oncology Comment on above: Iron deficiency (Danielle bethany Dx) Start: 07-26-2022 Telephone encounter Jeyson Diaz [facility] G[facility] Start: 07-26-2022 End: 07-26-2022 Admission to same day surgery center DO Kvng Melgar Work Phone: [facility] Work Phone: Start: 07-26-2022 End: 07-26-2022 ambulatory DO Kvng Melgar Work Phone: [facility] Work Phone: Start: 07-22-2022 End: 07-22-2022 Patient encounter procedure DO Kvng Melgar Work Phone: [facility] Work Phone: Start: 07-21-2022 End: 07-21-2022 ambulatory Kvng Melgar Other [facility] [employer] Other Start: 07-21-2022 Office outpatient vi sit 25 minutes Kvng ROSARIO [facility] Start: 06-02-2022 Social Work Marcia Ramires HACKSAW INSPECTOR Hematolo gy/Oncology Start: 05-25-2022 Telephone encounter Financial [...] Dx) Start: 05-18-2022 Telephone encounter Adebayo Armstrong Therapeutic Sales Specialist Start: 05-17-2022 Chart abstracting Mavis abraham [...] 06-09-2021 Adult health examination Kvng Melgar Other [facility] Other Start: 08-02-2019 Preoperative cardiovascular examination Kvng Melgar Other [facility] Other Start: 05-31-2019 Gynecological examination normal Kvng Melgar Other [facility] Other Start: 01-05-2018 End: 01-06-2018 Evaluation and management of inpatient No Doctor Facility:[facility] Procedures Date Procedure Procedure Detail Performing Clinician [...] Iron deficiency Expected: 01/24/2023 (Approximate), Expires: 03/26/2023 [facility] Work Phone: Comment on above: Expected: 01/24/2023 (Approximate), Expires: 03/26/2023 Start: 01-24-2023 End: 07-27-2023 Ferritin [Mass/volume] in Serum or Plasma FERRITIN BLD Lab Routine Iron deficiency Expected: 01/24/2023 (Approximate), Expires: 07/27/2023 [facility] Work Phone: Comment on above: Expected: 01/24/2023 (Approximate), Expires: 07/27/2023 Start: 01-24-2023 End: 07-27-2023 Iron and Iron binding capacity panel - Serum or Plasma IRON + TIBC Lab Routine Iron deficiency Expected: 01/24/2023 (Approximate), Expires: 07/27/2023 [facility] Work Phone: Comment on above: Expected: 01/24/2023 (Approximate), Expires: 07/27/2023 Start: 01-24-2023 [facility] Start: 10-28-2022 [facility] Start: 07-27-2022 End: 09-26-2022 CBC W Auto Differential panel - Blood CBC + DIFF Lab Routine Iron deficiency Expected: 07/27/2022 (Approximate), Expires: 09/26/2022 [facility] Work Phone: Comment on above: Expected: 07/27/2022 (Approximate), Expires: 09/26/2022 Start: 07-27-2022 End: 05-18-2023 Ferritin [Mass/volume] in Serum or Plasma FERRITIN BLD Lab Routine Iron deficiency Expected: 07/27/2022 (Approximate), Expires: 05/18/2023 [facility] Work Phone: Comment on above: Expected: 07/27/2022 (Approximate), Expires: 05/18/2023 Start: 07-27-2022 End: 05-18-2023 Iron and Iron binding capacity panel - Serum or Plasma IRON + TIBC Lab Routine Iron deficiency Expected: 07/27/2022 (Approximate), Expires: 05/18/2023 [facility] Work Phone: Comment on above: Expected: 07/27/2022 (Approximate), Expires: 05/18/2023 Start: 07-27-2022 End: 09-26-2022 RETIC COUNT RETIC COUNT Lab Routine Iron deficiency Expected: 07/27/2022 (Approximate), Expires: 09/26/2022 [facility] Work Phone: Comment on above: Expected: 07/27/2022 (Approximate), Expires: 09/26/2022 Start: 07-26-2022 [facility] Start: 07-11-2022 ADVANCE DIRECTIVE DISCUSSION ADVANCE DIRECTIVE DISCUSSION [facility] Start: 07-11-2022 [facility]ION [facility] Start: 03-11-2022 Influenza vaccination INFLUENZA (#1) [facility] Start: 01-30-2022 COVID-19 VACCINE (5 - Booster for Pfizer series) COVID-19 VACCINE (5 - Booster for Pfizer series) [facility] Start: 07-11-2021 ADVANCE DIRECTIVE DISCUSSION ADVANCE DIRECTIVE DISCUSSION [facility] Start: 07-11-2021 DEPRESSION ASSESSMENT [facility] Start: 03-29-2019 PNEUMOCOCCAL: 65+ (2 - PCV) PNEUMOCOCCAL: 65+ (2 - PCV) [facility] Start: 11-15-2017 DIABETES SCREEN DIABETES SCREEN [facility] Start: 04-23-2016 PNEUMOCOCCAL: 65+ (2 - PCV) PNEUMOCOCCAL: 65+ (2 - PCV) [facility] Start: 2003 BONE DENSITY BONE DENSITY [facility] Start: 01-22-1988 SHINGRIX VACCINE (1 of 2) SHINGRIX VACCINE (1 of 2) [facility] Start: 1957 Urine microalbumin profile DTAP,TDAP,TD (1 - Tdap) [facility] Start: 1938 COVID-19 VACCINE (#1) COVID-19 VACCI NE (#1) [facility] Patient Education [facility] Work Phone: XR Knee - right 4 Views [facility] Immunizations Immunization Date Immunization Notes Care Provider Saurabh rico 04-26-2023 influenza, high dose seasonal, preservative-free Kvng Melgar Other [facility] Other 04-26-2023 influenza virus vaccine, unspecified formulation DO Kvng Melgar Work Phone: [facility] 10-19-2022 COVID-19 Pfizer (bivalent) Kvng Melgar Other [facility] 12-05-2021 COVID-19 Pfizer Kvng mac Other [facility] 12-05-2021 COVID-19 Vaccine Pfi zer - Documentation Purposes Only Kvng Melgar Other [facility] 04-14-2021 COVID-19 Vaccine Pfi zer - Documentation Purposes Only Kvng Melgar Other [facility] 04-06-2021 influenza virus vaccine, split virus (incl. purified surface antigen) Kvng Melgar Other [facility] [facility] [employer] Other 04-06-2021 influenza virus vaccine, unspecified formulation DO Kvng Melgar Work Phone: [facility] 04-06-2021 influenza, high-dose , quadrivalent vaccine (FLUZONE HIGH DOSE QUADRIVALENT) Mavis Santiago MD Work Phone: [facility] 08-27-2020 COVID-19 Vaccine Pfi zer - Documentation Purposes Only Kvng Melgar Other [facility] 08-04-2020 COVID-19 Vaccine Pfi zer - Documentation Purposes Only Kvng Melgar Other [facility] 04-04-2020 influenza virus vaccine, split virus (incl. purified surface antigen) Kvng Melgar Other [facility] Other 04-04-2020 influenza virus vaccine, unspecified formulation DO Kvng Melgar Work Phone: [facility] 04-04-2020 influenza, high-dose , quadrivalent vaccine (FLUZONE HIGH DOSE QUADRIVALENT) Mavis Santiago MD Work Phone: [facility] 04-18-2019 influenza, injectabl e, quadrivalent, preservative free Mavis Santiago MD Work Phone: [facility] 03-22-2019 Seasonal trivalent influenza vaccine, adjuvanted, preservative free Mavis Santiago MD Work Phone: [facility] 04-13-2018 influenza virus vaccine, split virus (incl. purified surface antigen) Kvng Melgar Other [facility] [employer] Other 04-13-2018 influenza virus vaccine, unspecified formulation DO Kvng Melgar Work Phone: [facility] 04-13-2018 Seasonal trivalent influenza vaccine, adjuvanted, preservative free Mavis Santiago MD Work Phone: [facility] 03-29-2018 pneumococcal polysaccharide vaccine, 23 valent Mavis Santiago MD Work Phone: [facility] 05-25-2017 Seasonal trivalent influenza vaccine, adjuvanted, preservative free Mavis Santiago MD Work Phone: [facility] 04-27-2016 influenza virus vaccine, split virus (incl. purified surface antigen) Kvng Melgar Other [facility] [employer] Other 04-27-2016 influenza virus vaccine, unspecified formulation DO Kvng Melgar Work Phone: [facility] 04-27-2016 influenza, high dose seasonal, preservative-free Mavis Santiago MD Work Phone: [facility] 04-23-2015 influenza, injectabl e, quadrivalent, preservative free Mavis Santiago MD Work Phone: [facility] 04-23-2015 pneumococcal polysaccharide vaccine, 23 valent Mavis Santiago MD Work Phone: [facility] 04-18-2015 influenza virus vaccine, split virus (incl. purified surface antigen) Kvng Melgar Other [facility] Other 04-18-2015 influenza virus vaccine, unspecified formulation DO Kvng Melgar Work Phone: [facility] 04-18-2015 pneumococcal conjuga te vaccine, 13 valent Kvng Melgar Other [facility] 05-21-2014 influenza, injectabl e, quadrivalent, contains preservative Adebayo Pan Other [facility] 04-26-2014 tetanus and diphther ia toxoids, adsorbed, preservative free, for adult use (5 Lf of tetanus toxoid and 2 Lf of diphtheria toxoid) Kvng Ermelinda Other [facility] 05-09-2013 pneumococcal polysaccharide vaccine, 23 valent Kvng Melgar Other [facility] 05-09-2013 tetanus and diphther ia toxoids, adsorbed, preservative free, for adult use (5 Lf of tetanus toxoid and 2 Lf of diphtheria toxoid) Kvng Melgar Other [facility] Payers Date Payer Category Payer Self-pay [id number] 2014 Private Health Insurance [id number] 2003 Medicare [id number] 2003 Unknown 1959 Medicare [id number] 1959 Private Health Insurance [id number] 1938 Unknown [id number] 2.16.84 0.1.786045.3.579.2.593 1938 Unknown [id number] 2.16.84 0.1.312711.3.579.2.593 1938 Unknown [id number] 2.16.84 0.1.484004.3.579.2.593 1938 Unknown [id number] 2.16.84 0.1.984296.3.579.2.593 1938 Unknown [id number] 2.16.84 0.1.651834.3.579.2.593 1938 Unknown [id number] 2.16.84 0.1.191417.3.579.2.593 1938 Unknown [id number] 2.16.84 0.1.431312.3.579.2.593 1938 Unknown [id number] 2.16.84 0.1.330668.3.579.2.593 1938 Unknown [id number] 2.16.84 0.1.382860.3.579.2.593 1938 Unknown [id number] 2.16.84 0.1.658879.3.579.2.1259 1938 Unknown [id number] 2.16.84 0.1.758960.3.579.2.1259 1938 Unknown [id number] 2.16.84 0.1.154386.3.579.2.1259 1938 Unknown [id number] 2.16.84 0.1.742794.3.579.2.1259 1938 Unknown [id number] 2.16.84 0.1.663352.3.579.2.1259 1938 Unknown [id number] 2.16.84 0.1.954090.3.579.2.1259 1938 Unknown [id number] 2.16. 840.1.802232.3.579.2.196 1938 Unknown [id number] 2.16. 840.1.181485.3.579.2.196 1938 Unknown [id number] 2.16. 840.1.325529.3.579.2.196 Medicare [id number] Unknown [id number] 2.16.8 40.1.134969.3.579.2.531 Unknown [id number] 2.16.8 40.1.602925.3.579.2.531 Social History Date Type Detail Facility Start: 01-03-2015 End: 05-27-2023 Tobacco smoking status NHIS Ex-smoker [facility] History of tobacco use Current smoker [facility] Start: 01-03-2015 Tobacco use and exposure Smokeless tobacco non-user [facility] Start: 05-17-2022 End: 07-27-2022 Alcohol intake Ex-drinker (finding) [facility] Start: 1940 Sex Assigned At Not on file C [facility] Start: 05-08-2022 End: 05-25-2022 Exposure to SARS-CoV-2 (event) Not sure [facility] Start: 07-26-2022 End: 10-28-2022 Tobacco smoking status MTIS Never smoked tobacco (finding) [facility] Start: 1940 Sex Assigned At Female F [facility] Sex Assigned At Sex Assigned At Bir th [facility] [employer] Other Goals Date Patient Goal Desired Activity /State Clinical Notes 11-28-2019 to 08-10-2023 Note Date & Type Note Facility 08-10-2023 Evaluation note Encounter Date Diagnosis Assessment Notes Jul, Epigastric pain (ICD-10 - R10.13) Jul, Constipation (ICD-10 - K59.00) Oct, Nausea (ICD-10 - R11.0) Nausea [facility] [employer] Other 12-11-2023 Evaluation note* Encounter Date Diagnosis Assessment Notes Treatment Notes Treatment Clinical Notes Jun, Lumbar spondylosis (ICD-10 - M47.816) [facility] [employer] Other 11-21-2023 Evaluation note* Encounter Date Diagnosis Assessment Notes Treatment Notes Treatment Clinical Notes May, Claustrophobia (ICD-10 - F40.240) [facility] Other 11-17-2023 Evaluation note* Encounter Date Diagnosis [...] May, Other specified hypothyroidism (ICD-10 - E03.8) [facility] Other 11-10-2023 Evaluation note* Encounter Date Diagnosis Assessment Notes Treatment Notes Treatment Clinical Notes May, Lumbar spondylosis (ICD-10 - M47.816) [facility] Other 09-13-2023 Evaluation note* Encounter Date Diagnosis Assessment Notes Treatment Notes Treatment Clinical Notes Mar, Chronic superficial gastritis with bleeding (ICD-10 - K29.31) [facility] Other 08-25-2023 Evaluation note* Encounter Date Diagnosis Assessment Notes Treatment Notes Treatment Clinical Notes Feb, Allergic contact dermatitis due to plants, except food (ICD-10 - L23.7) Cool compresses, topical steroids and begin Prednisone. _update on Feb, Cellulitis of left upper extremity (ICD-10 - L03.114) Elevate and begin antibiotics, update on Tuesday [facility] Other 08-15-2023 Evaluation note* Encounter Date Diagnosis [...] exercise for 30 minutes, 3-5 times weekly. [facility] Other 08-14-2023 Evaluation note* Encounter Date Diagnosis Assessment Notes Treatment Notes Treatment Clinical Notes Feb, Lumbar spondylosis (ICD-10 - M47.816) [facility] Other 06-20-2023 Evaluation note* Encounter Date Diagnosis Assessment Notes Treatment Notes Treatment Clinical Notes Dec, Autoimmune thyroiditis (ICD-10 - E06.3) [facility] Other 05-12-2023 Evaluation note* Encounter Date Diagnosis Assessment Notes Treatment Notes Treatment Clinical Notes November, Lumbar spondylosis (ICD-10 - M47.816) [facility] Other 05-11-2023 Evaluation note* Encounter Date Diagnosis [...] E03.8) November, Lumbar spondylosis (ICD-10 - M47.816) [facility] Other [facility]-20-2023 [facility] NotePROCEDURE: XR HIP LT 2 3V [...] Electronically authenticated by: ANTHONY GUIDRY Date: 2022-10-20 15:40[facility]04-04-2023 Evaluation note* Encounter Date Diagnosis Assessment [...] mammogram for breast cancer (ICD-10 - Z12.31) [facility] Other 01-17-2023 NoteHNO ID: [id number] Author: Mavis Santiago MD Service: ? Author Type: Physician Type: Progress Notes Filed: 07/27/2022 2:56 PM Note Text: PATIENT NAME: Tangela Trinidad CLINIC NO.: [id number] ATTENDING PHYSICIAN: Mavis Santiago MD DATE OF [...] Status 07/27/2022 18.0 (H) (more content not included)...[facility] 07-27-2022 History of Present illness Narrative* Mavis Santiago MD - 07/27/2022 2:48 PM EST PATIENT NAME: Tangela Trinidad [facility] NO.: [id number] ATTENDING PHYSICIAN: Mavis Santiago MD DATE OF [...] 07/27/2022 3.25 1.00 - 4.00 k/uL Final [place]% Date Value Ref Range Status 07/27/2022 14.0 % Final Abs [place] Date Value Ref Range Status 07/27/2022 1.25 [...] do not hesitate to contact me at [phone]. Mavis Santiago MD Hematology/Medical Oncology [facility] I spent a total of 20 minutes on the date of the service which included preparing to see the patient, [id number] patient care, completing clinical documentation, obtaining and/or reviewing separately obtained history, performing a medically appropriate examination, counseling and educating the pat ient/family/caregiver, and ordering medications, tests, or procedures. CC: Kvng Melgar [facility]* Encounter Date Diagnosis Assessment Notes Treatment Notes Treatment Clinical Notes Jul, Acute gastric ulcer without hemorrhage or perforation (ICD-10 - K25.3) [facility] Other [id number] [facility]* Encounter Date Diagnosis Assessment [...] Healty diet, keep active, consistent sleep routine [facility] [employer] Other [id number] NoteHNO ID: [id number] Author: MONY Mart Service: ? Author Type: Prosthetic Aides Teacher Type: Progress Notes Filed: 06/02/2022 3:17 PM Note Text: Patient appears on the First Time Treatment List for a non-oncology treatment. No psychosocial assessment is indicated. KAYLEY [facility]11-23-2022 History of Present illness Narrative* MONY Mart - 06/02/2022 3:16 PM EST Patient appears on the First Time Treatment List for a non-oncology treatment. No psychosocial assessment is indicated. KAYLEY Mart-Aida documented in [facility] encounter[facility] Miscellaneous Notes* Telephone Encounter - Mohit Lo [facility] - 05/25/2022 3:32 PM EST 1st report of treatment-non oncology regimen (Monoferric) Patient holds Medicare coverage. No FA available at this time. documented in this encounterSt. [facility]11-[facility]-2022 NoteHNO ID: [id number] Author: Mavis Santiago MD Service: ? Author Type: Physician Type: Progress Notes Filed: 05/18/2022 4:08 PM Note Text: PATIENT NAME: Tangela Trinidad [facility] NO.: [id number] ATTENDING PHYSICIAN: Mavis Santiago MD DATE OF [...] Final Lymph% Date Va (more content not included)...[facility]11-08-2022 History of Present illness Narrative* Mavis Santiago MD - 05/18/2022 3:51 PM EST PATIENT NAME: Tangela Trinidad CLINIC NO.: [id number] ATTENDING PHYSICIAN: Mavis Santiago MD DATE OF [...] 05/11/2018 2.74 1.00 - 4.00 k/uL Final [place]% Date Value Ref Range Status 05/11/2018 12.1 % Final Abs [place] Date Value Ref Range Status 05/11/2018 1.12 [...] do not hesitate to contact me at [phone]. Mavis Santiago MD Hematology/Medical Oncology [facility] I spent a total of 30 minutes on the date of the service which included preparing to see the patient, nmqa-am-mqhx patient care, completing clinical documentation, obtaining and/or reviewing separately obtained history, performing a medically appropriate examination, counseling and educating the pat ient/family/caregiver, and ordering medications, tests, or procedures. Medical Decision Making: Medical Decision Making Level: 1 - N/A CC: Kvng Melgar DO documented in this encounterSt. [facility]11-19-2020 Progress note Author Nicho Salcedo [facility] May 29, 2020 11:30am Note Date/Time May 29, 2020 11:29am [facility] [place] [address] Hem/Onc Follow Up Note - OP Signed Patient: Tangela Trinidad MR#: [id number] : 1940 Acct:[id number] Age/Sex: 80 / F Type: REG RCR [...] Rash Penicillins Allergy (Verified 11/28/19 10:23) Hives Kwxkivn-Oqv-Gqy Reductase Inhibitor Allergy (Verified 11/28/19 10:23) Unknown [...] Neut % (Auto) 50.8,Lymph % (Auto) 30.1, [place] % (Auto) 14.9, Eos % (Auto) 3.3, Baso % (Auto) 0.9, Neut # (Auto) 4.4, Lymph # (Auto) 2.6, [place] # (Auto) 1.3 H, Eos # (Auto) [...] for coordination of care (as documented) and gfbe-ex-tdxp counseling of patient and/or family. Dictated By: Nicho Salcedo MD DD/ [id number] Signed By: <Electronically signed by MD Nicho Salcedo> 05/29/20 1130 [facility] Work Phone: [phone]) 282-976205-20-2020 Progress note Author Nicho Salcedo [facility] November 28, 2019 12:52pm Note Date/Time November 28, 2019 12:50 pm [facility] at [address] [address] Hem/Onc Follow Up Note - OP Signed Patient: Tangela Trinidad MR#: [id number] : 1940 Acct:[id number] Age/Sex: 79 / F Type: REG RCR [...] Rash Penicillins Allergy (Verified 11/28/19 10:23) Hives Jxdinkr-Hcs-Ywc Reductase Inhibitor Allergy (Verified 11/28/19 10:23) Unknown [...] Neut % (Auto) 49.9,Lymph % (Auto) 27.3, [place] % (Auto) 15.1, Eos % (Auto) 6.5, Baso % (Auto) 1.2, Neut # (Auto) 4.3, Lymph # (Auto) 2.4, [place] # (Auto) 1.3 H, Eos # (Auto) [...] for coordination of care (as documented) and mfxb-hq-svfz counseling of patient and/or family. Dictated By: Nicho Salcedo MD DD/ [id number] Signed By: <Electronically signed by MD Nicho Salcedo> 11/28/19 1253 [facility] Work Phone: Evaluation note* Diagnosis Iron deficiency- Primary Iron deficiency anemia, unspecified [facility]* Diagnosis Iron deficiency anemia, unspecified iron deficiency anemia type- Primary Iron deficiency Iron deficiency anemia, unspecified [facility] Diagnosis Iron deficiency- Primary Iron deficiency anemia, unspecified [facility]Evaluation noteNo assessment information availableOhiohealth [facility] Work Phone: Evaluation noteNo InformationNort [place] Other Evaluation note* Diagnosis Onset Date Resolution [...] History and physical note Author Jeyson Diaz [facility] July 26, 2022 8:09am Note Date/Time July 26, 2022 8 :09am [facility] [address] [place] [address] Gastroenterology H&P Signed Patient: Tangela Trinidad MR#: [id number] : 1940 Acct:[id number] Age/Sex: 82 / F Adm Date: 3 Loc: Room: Type: [facility] Attending Dr: Jeyson Diaz MD Copies to: [...] <Electronically signed by Jeyson Diaz MD> 07/26/22808 [facility] Work Phone: History and physical note Author Jeyson Diaz [facility] October 28, 2022 1:13pm Note Date/Time October 28, 2022 1:1 3pm [facility] [address] [place] [address] Gastroenterology H&P Signed Patient: Tangela Trinidad MR#: [id number] : 1940 Acct:[id number] Age/Sex: 82 / F Adm Date: 3 Loc: Room: Type: [facility] Attending Dr: Jeyson Diaz MD Copies to: [...] signed by Jeyson Diaz MD> 10/28/22 1313 [facility] Work Phone: History general Narrative - Reported* Type Description Date Medical History Cervical spondylosis Medical History Vitamin D deficiency Medical History Hyponatremia Medical History [place] Medical History Fatigue Medical History Depression screening Medical History Encounter for screening breast e xamination Medical History Leukocytosis Medical History 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 Medical History Essential hypertension Medical History [...] History colonoscopy 07/26/22 Hospitalization History see above [facility] Other [facility] general Narrative - Reported* Type Description Date Medical History Cervical spondylosis Medical History Vitamin D deficiency Medical History Hyponatremia Medical History [place] Medical History Fatigue Medical History Depression screening Medical History Encounter for screening breast e xamination Medical History Leukocytosis Medical History Chronic cgzq-CLTCU-84 syndrome Medical History Essential hypertension Medical History [...] w/ biopsy 10/2022 Hospitalization History see above [facility] Other [facility] general Narrative - Reported* Type Description Date Medical History Cervical spondylosis Medical History Vitamin D deficiency Medical History Hyponatremia Medical History [place] Medical History Fatigue Medical History Depression screening Medical History Encounter for screening breast e xamination Medical History Leukocytosis Medical History Chronic ykqx-XIEQP-55 syndrome Medical History Essential hypertension Medical History [...] History EGD 01/2023 Hospitalization History see above [facility] Other Hospital Discharge instructions Additional Instructions DISCHARGE [...] -Follow up with PCP. - Office number [phone]. [facility] Work Phone: Hospital Discharge instructions [...] NOT operate machinery such as power tools, [employer] mowers, snow blowers, sewing machines, etc. for [...] problems. -Follow up with PCP. -Office number [phone]. [facility] Work Phone: Hospital Discharge instructions [...] problems. -Follow up with PCP. -Office number [phone]. [facility] Work Phone: Summary Purpose Family History [...] DATE CREATED AUTHOR AUTHOR'S ORGANIZ ATION 08/04/2022 [facility] DATE CREATED AUTHOR AUTHOR'S ORGANIZ ATION 11/10/2022 [facility] DATE CREATED AUTHOR AUTHOR'S ORGANIZ ATION 03/25/2024 [facility] DATE CREATED AUTHOR AUTHOR'S ORGANIZ ATION 03/31/2024 [facility] DATE CREATED AUTHOR AUTHOR'S ORGANIZ ATION 05/09/2024 [facility] Source Comments (unrecognize d section and content) In the event this informatio n is protected by the Federal Confidentiality of Alcohol and Drug Abuse Patient Records regulations: The Federal rules restrict any use of the information to criminally investigate or prosecute any alcohol or drug abuse patient.[facility] HospitalIn the event this information is protected by the Federal Confidentiality of Alcohol and Drug Abuse Patient Records regulations: The Federal rules restrict any use of the information to criminally investigate or prosecute any alcohol or drug abuse patient.[facility] HospitalIn the event this information is protected by the Federal Confidentiality of Alcohol and Drug Abuse Patient Records regulations: The Federal rules restrict any use of the information to criminally investigate or prosecute any alcohol or drug abuse patient.[facility] HospitalIn the event this information is protected by the Federal Confidentiality of Alcohol and Drug Abuse Patient Records regulations: The Federal rules restrict any use of the information to criminally investigate or prosecute any alcohol or drug abuse patient.[facility] HospitalIn the event this information is protected by the Federal Confidentiality of Alcohol and Drug Abuse Patient Records regulations: The Federal rules restrict any use of the information to criminally investigate or prosecute any alcohol or drug abuse patient.[facility] HospitalIn the event this information is protected by the Federal Confidentiality of Alcohol and Drug Abuse Patient Records regulations: The Federal rules restrict any use of the information to criminally investigate or prosecute any alcohol or drug abuse patient.[facility] Care Teams (unrecognized sec tion and content) Team Status: Active Member Role Status Dates Kvng Melgar , Primary Care Provider Active Team Status: Inactive Member Role Status Dates Kvng Melgar , DO Primary Care Provider Active Jeyson Diaz MD Attending Provider Active Director Of Grants Relationship Specialty Start Date End Date Kvng Melgar, DO PCP - General Internal Medicine 11/14/14 Director Of Grants Relationship Specialty Start Date End Date Kvng Melgar, DO PCP - General Internal Medicine 11/14/14 Director Of Grants Relationship Specialty Start Date End Date Kvng Melgar, DO PCP - General Internal Medicine 11/14/14 Director Of Grants Relationship Specialty Start Date End Date Kvng Melgar, DO PCP - General Internal Medicine 11/14/14 Director Of Grants Relationship Specialty Start Date End Date Kvng Melgar, DO PCP - General Internal Medicine 11/14/14 Director Of Grants Relationship Specialty Start Date End Date Kvng [...] anemia type Iron deficiency Mavis Santiago MD [facility] [place] [address] Damon Treat [address] [place] [address] Referral ID Status Reason Start Date Expiration Date V isits Requested Visits Authorized [id number] Authorized 05/18/2022 08/16/2022 99 99 Reason Comments [...] BE BASED ON THE PRIMARY CLINICAL RECORDS. [employer] provides no warranty or guarantee of the accuracy or completeness of information in this document.
--- NOTE | 2024-05-12 18:02 | PM.HP ---
HPI H&P: HPI History of Present Illness Chief complaint: WEAKNESS Narrative: 84 y o female presented to ED for generalized weakness, inability to ambulate since this morning. Patient lives with her who is also elderly and had just been started on Lyrica for chronic LBP and Hip pain. She denies falls /weakness or numbness. However, when she woke up this morning, she felt that she could not move. Work up in ED did not reveal any sig finding or abnormality. Her infectious work up also was negative. Patient admitted for observation for PT/OT eval. At the time of evaluation, patient has no symptoms to offer but reports generalized weakness. She reports feeling a little bit better compared to when she arrived. Opioid HPI Opioid Management Most Recent Pain and Opioid Data: Last Pain Scale 7 04/23/24 11:27 04/23/24 Last Pain Assessment 05/12/24 17:00 Last ORT Total Score 0 05/12/24 11:40 05/12/24 Last ORT Risk Category Low Risk 05/12/24 11:40 05/12/24 Review of Systems ROS Status of ROS 10 or more systems reviewed and unremarkable except as noted in history and below [facility] Medical History (Updated 05/12/24 @ 18:07 by Shaikh Demetrice MD) Lumbar stenosis with neurogenic claudication ?M48.062 - Spinal stenosis, lumbar region with neurogenic claudication (ICD-10) HLD (hyperlipidemia) ?E78.5 - Hyperlipidemia, unspecified (ICD-10) Hypothyroid ?E03.9 - Hypothyroidism, unspecified (ICD-10) Cystocele with rectocele ?N81.10 - Cystocele, unspecified (ICD-10) ?N81.6 - Rectocele (ICD-10) Anemia ?D64.9 - Anemia, unspecified (ICD-10) Hearing deficit ?H91.90 - Unspecified hearing loss, unspecified ear (ICD-10) Stomach ulcer ?K25.9 - Gastric ulcer, unspecified as acute or chronic, without hemorrhage or perforation (ICD-10) History of hypothyroidism ?Z86.39 - Personal history of other endocrine, nutritional and metabolic disease (ICD-10) High blood cholesterol level ?E78.00 - Pure hypercholesterolemia, unspecified (ICD-10) Angina at rest ?I20.89 - Other forms of angina pectoris (ICD-10) High blood pressure ?I10 - Essential (primary) hypertension (ICD-10) Surgical History History of blepharoplasty ?Z98.890 - Other specified postprocedural states (ICD-10) History of total right knee replacement ?Z96.651 - Presence of right artificial knee joint (ICD-10) History of hysterectomy ?Z90.710 - Acquired absence of both cervix and uterus (ICD-10) History of lumbar fusion ?Z98.1 - Arthrodesis status (ICD-10) History of fusion of cervical spine ?Z98.1 - Arthrodesis status (ICD-10) History of appendectomy ?Z90.49 - Acquired absence of other specified parts of digestive tract (ICD-10) Family History (Updated 05/12/24 @ 11:37 by Khalida Astudillo) Mother Family history of CHF (congestive heart failure) Family history of cancer Brother Family history of COPD (chronic obstructive pulmonary disease) Sister Family history of cancer Family history of diabetes mellitus Family history of myocardial infarction Family history of stroke Social History (Updated 05/12/24 @ 11:38 by Khalida Astudillo) Within the past year, how often did you have a drink containing alcohol: never Within the past year, how often did you have six or more drinks on one occasion: never Score interpretation: A score less than 3 is consistent with normal alcohol consumption. Smoking status: Never smoker Non-prescribed substance use: denies use Highest level of school completed/degree received: some college, no degree Are you now , , , , never or living with a partner: living with partner In a typical week, how many times do you talk on the telephone with family, friends, or neighbors: 3 or more times per week How often do you get together with friends or relatives: 3 or more times per week How often do you attend hoahaoism or roman catholic services: never Do you belong to any clubs or organizations such as hoahaoism groups unions, fraternal or athletic groups, or school groups: no Total score: 2 Score interpretation: A score of greater than or equal to 2 indicates the lowest level of social isolation. Little interest or pleasure in doing things: not at all Feeling down, depressed, or hopeless: not at all Feel stressed/tense/nervous/anxious/difficulty sleeping: not at all Meds Home Medications and Allergies Home Medications ?Medication ?Instructions ?Recorded ?Confirmed ?Type amlodipine 5 mg tablet 5 mg PO DAILY 04/02/24 05/12/24 History atenolol 25 mg tablet 25 mg PO DAILY 04/02/24 05/12/24 History cholecalciferol (vitamin D3) 10 800 unit PO DAILY 04/02/24 05/12/24 History mcg (400 unit) capsule levothyroxine 112 mcg tablet 112 mcg PO DAILY 04/02/24 05/12/24 History multivitamin (Daily Multi-Vitamin 1 tab PO DAILY 04/02/24 05/12/24 History tablet) pantoprazole 40 mg tablet,delayed 40 mg PO DAILY 04/02/24 05/12/24 History release tramadol 50 mg tablet 50 mg PO Q8H PRN pain 04/02/24 05/12/24 History jcjccup-spjhvguiiffoh-yfrvdywh 250 1 tab PO Q6H PRN pain 04/23/24 05/12/24 History mg-250 mg-65 mg tablet (Excedrin Extra Strength) gabapentin 100 mg capsule 200 mg PO BID 05/03/24 05/12/24 History pregabalin 50 mg capsule 50 mg PO DAILY 05/12/24 05/12/24 History Allergies Allergy/AdvReac Type Severity Reaction Status Date / Time Penicillins Allergy Unknown Unknown Verified 04/09/24 10:11 Sulfa (Sulfonamide Allergy Unknown Unknown Verified 04/09/24 10:11 Antibiotics) vancomycin Allergy Unknown Unknown Verified 04/09/24 10:11 STATINS Allergy Unknown Unknown Uncoded 04/09/24 10:11 Exam Constitutional Vital Signs, click to edit/add: Last Vital Signs Temp 97.7 F 05/12/24 11:40 Pulse 74 05/12/24 11:40 Resp 118 H 05/12/24 11:40 BP 147/85 H 05/12/24 11:40 Pulse Ox 99 05/12/24 11:40 O2 Del Method Room Air 05/12/24 11:40 Documenting provider has reviewed patient's vital signs: yes Common normals: no apparent distress and oriented x3 General appearance: cooperative Respiratory Common normals: normal respiratory effort and clear to auscultation bilaterally Effort & inspection: able to speak in complete sentences Auscultation: clear to auscultation bilaterally Cardio Common normals: regular rate, S1 normal heart sound and S2 normal heart sound Rate: regular rate Heart sounds: S1 normal and S2 normal GI Common normals: Normal to inspection, nondistended, normoactive bowel sounds present, soft to palpation, non-tender and no hepatosplenomegaly Palpation: soft and no hepatosplenomegaly Extremity Common normals: no clubbing, cyanosis or edema Neuro Common normals: oriented x3, moves all extremities and no focal motor deficits Psych Common normals: mental status grossly normal, denies hallucinations, denies homicidal ideation and denies suicidal ideation Results Labs Labs: Short CBC 05/12/24 Range/Units 09:19 WBC 7.9 (4.0-11.0) 10^3/uL Hgb 15.0 (12.0-16.0) g/dL Hct 44.4 (36.0-48.0) % Plt Count 318 (150-450) 10^3/uL BMP 05/12/24 09:19 Sodium 136 Potassium 3.9 Chloride 100 Carbon Dioxide 27.1 BUN 11.0 Creatinine 0.94 Glucose 92 Calcium 9.3 Liver Function 05/12/24 Range/Units 09:19 Total Bilirubin 0.6 (0.2-1.0) mg/dL AST 26 (15-37) U/L ALT 29 (14-59) U/L Alkaline Phosphatase 71 (46-116) U/L Albumin 3.7 (3.4-5.0) g/dL Urine 05/12/24 Range/Units 09:42 Urine Color Lt. yellow (YELLOW) Urine Clarity Clear (CLEAR) Urine pH 7.0 (5.0-9.0) Ur Specific [place] 1.010 (1.005-1.025) Urine Protein Negative (NEG/TRACE) mg/dL Urine Glucose (UA) Negative (NEGATIVE) mg/dL Assessment and Plan Assessment and Plan (1) Generalized weakness: (2) Ambulatory dysfunction: (3) Hypothyroid: Qualifiers: Hypothyroidism type: unspecified Qualified Code(s): E03.9 - Hypothyroidism, unspecified (4) High blood pressure: Qualifiers: Hypertension type: primary hypertension Qualified Code(s): I10 - Essential (primary) hypertension (5) Lumbar stenosis with neurogenic claudication: Plan Generalized weakness, inability to walk likely due to Lyrica. Improving. Fall precautions. PT/OT eval. Monitor for improvement. Hold Lyrica. C/w levothyroxine. BP stable. C/w atenolol and amlodipine. Urinary Catheter Management Urinary Catheter Management Straight: Cath placed during this visit: yes Urethral indwelling: No Insertion date: 05/12/24 Insertion time: 09:59
[2024-05-12] MEDS: ENOXAPARIN SODIUM 40 MG/0.4 ML SYRINGE SUBQ (18:30)
[2024-05-12] MEDS: OXYCODONE HCL 5 MG TABLET PO (20:50)
[2024-05-13] MEDS: OXYCODONE HCL 5 MG TABLET PO (02:25)
[2024-05-13 05:50] VITALS: O2SAT 96
[2024-05-13 06:00] VITALS: BP 129/83; PULSE 67; TEMP 36.4; O2SAT 96
[2024-05-13] MEDS: OMEPRAZOLE 40 MG CAPSULE.DR PO (06:00)
[2024-05-13] MEDS: LEVOTHYROXINE SODIUM 112 MCG TABLET PO (06:00)
[2024-05-13 07:19] VITALS: BP 130/82; PULSE 67; TEMP 36.4; O2SAT 98
[2024-05-13 07:24] VITALS: PULSE 62
[2024-05-13] MEDS: MULTIVITAMIN TABLET 1 TAB PO (08:06)
[2024-05-13] MEDS: AMLODIPINE BESYLATE 5 MG TABLET PO (08:06)
[2024-05-13] MEDS: ATENOLOL 25 MG TABLET PO (08:06)
--- NOTE | 2024-05-13 09:59 | P.DS_ITS ---
DS: Providers Provider Date of admission: 05/12/24 11:38 Primary care physician: Kvng Melgar DO Admitting clinician: Shaikh Demetrice Attending physician on admission: Shaikh Demetrice Consults: 05/12/24 12:46 Occupational Therapy Eval and Treat Routine Reason for consultation: Ambulatory dysfunction/weakness Physical Therapy Eval and Treat Routine Reason for consultation: Ambulatory dysfunction/weakness Attending physician on discharge: Shaikh Demetrice Discharging clinician: Shaikh Demetrice Anticipated date of discharge: 05/13/24 DS: Diagnosis Discharge Diagnosis (1) Generalized weakness: (2) Ambulatory dysfunction: (3) Hypothyroid: Qualifiers: Hypothyroidism type: unspecified Qualified Code(s): E03.9 - Hypothyroidism, unspecified (4) High blood pressure: Qualifiers: Hypertension type: primary hypertension Qualified Code(s): I10 - Essential (primary) hypertension (5) Lumbar stenosis with neurogenic claudication: DS: Summary Hospital Course Hospital Course: 84 y o female presented to ED for generalized weakness, inability to ambulate when she woke up. Night before, she took Lyrica which she was just started on for chornic LBP and Hip Pain. She denies falls /weakness or numbness. Work up in ED did not reveal any sig finding or abnormality. Her infectious work up also was negative. Patient admitted for observation for PT/OT eval. She improved clinically during the course of admission. She was able to ambulate with walker. She is medically stable for discharge. Will stop Lyrica upon discharge. She will need to f/u with Pain or PCP for management of her chronic LBP Status at Discharge Functional status at discharge: uses cane/walker Overall status at discharge: patient is back to baseline Time Spent with Patient Time attestation: Total time spent providing and/or coordinating discharge services: Time spent: greater than 30 minutes Exam Constitutional Vital Signs, click to edit/add: Last Vital Signs Temp 97.5 F L 05/13/24 07:19 Pulse 62 05/13/24 07:24 Resp 18 05/13/24 07:24 BP 130/82 05/13/24 07:19 Pulse Ox 98 05/13/24 07:19 O2 Del Method Room Air 05/13/24 06:00 Documenting provider has reviewed patient's vital signs: yes Common normals: no apparent distress and oriented x3 General appearance: cooperative Respiratory Common normals: normal respiratory effort and clear to auscultation bilaterally Effort & inspection: able to speak in complete sentences Auscultation: clear to auscultation bilaterally Cardio Common normals: regular rate, S1 normal heart sound and S2 normal heart sound Rate: regular rate Heart sounds: S1 normal and S2 normal Extremity Common normals: no clubbing, cyanosis or edema Neuro Common normals: oriented x3, moves all extremities and no focal motor deficits Psych Common normals: mental status grossly normal, denies hallucinations, denies homicidal ideation and denies suicidal ideation DS: Data Data Completed and Pending Labs on day of discharge: Labs from last 24 hours 05/12/24 10:36 Influenza Type A Ag Negative Influenza Type B Ag Negative SARS-CoV-2 Ag (CV2AG) Negative Discharge Plan Discharge Disposition: Home, Self-Care Discharge Medications: Continued amlodipine 5 mg tablet 5 mg PO DAILY atenolol 25 mg tablet 25 mg PO DAILY levothyroxine 112 mcg tablet 112 mcg PO DAILY pantoprazole 40 mg tablet,delayed release (DR/EC) 40 mg PO DAILY tramadol 50 mg tablet 50 mg PO Q8H PRN (Reason: pain) multivitamin [Daily Multi-Vitamin] Tablet 1 tab PO DAILY cholecalciferol (vitamin D3) 10 mcg (400 unit) capsule 800 unit PO DAILY Excedrin Extra Strength 250-250-65 mg tablet 1 tab PO Q6H PRN (Reason: pain) Discontinued gabapentin 100 mg capsule 200 mg PO BID pregabalin 50 mg capsule 50 mg PO DAILY Activity: increase activity as tolerated Diet: advance to your usual diet Print Language: Panamanian Forms: Portal Instructions Follow Up Appointments: PCP in one week
--- OUTSIDE RECORDS SUMMARY | 2024-05-14 06:15 | XMS_ITS | CCD ---
Author Organization [facility] Care Team Providers Care Terminal Clerk Name Role Phone Doctor, No Unavailable Unavailable [...] Care Provider MD Jeyson Diaz Attending Provider [phone] ERMELINDA, DR CALDERON Primary Care Unavailable ERMELINDA, [...] Care Provider MD Joe Imprice Attending Provider [phone] Ermelinda, DO Calderon Primary Care Provider [phone] MD Joe Imprice Attending Provider [phone] Ermelinda, DO Calderon Primary Care Provider DO Lorelei Hurtado Attending Provider [phone] Kvng Melgar Primary Care Unavailable Lorelei Hurtado Admitting Unavailab Lorelei Wetzel Attending Unavailab le Ermelinda, Kvng Primary Care Unavailable Asaad, Imad Admitting Unavailable Asaad, Imad Attending Unavailable TED GILMORE Attending Unavailable TED GILMORE Referring Unavailable LORELEI HURTDAO Attending Unavailable LORELEI HURTADO Attending Unavailable NICHO MARC Attending Unavailable LORELEI HURTADO Attending Unavailable Gurmeet REDD, Charlotte Costa Attending Unavailable Gurmeet REDD, Andlizabeth Costa Attending Unavailable Gurmeet REDD, Charlotte Costa Attending Unavailable Allergies Allergy Classification Reported Allergen(s) Allergy Type Date of Onset Reaction(s) Facility (8 sources) Penicillins; Translations: [PENICILLINS] Drug allergy (disorder) 11-16-19 15 AOF, Hives, Hives, PENICILLINS [facility] Repository (8 sources) Sulfonamides (Antibiotic); Translations: [SULFA (SULFONAMIDE ANTIBIOTICS)] Drug allergy (disorder) 11-16-19 15 AOF, Hives, Hives, Comment:2005 [facility] Repository (7 sources) Bztpoof-Gwb-Ukl Reductase Inhibitor Drug allergy (disorder) 01-06-20 18 Unknown Reaction, Unknown Reaction, muscle aches [facility] Repository (20 sources) Cephalosporins (Antibiotic); Translations: [CEPHALOSPORINS] Drug Allergy 10-24-19 15 Unknown [facility] (7 sources) HMG-CoA reductase inhibitor; Translations: [ZVRAUPS-TUM-XKR REDUCTASE INHIBITORS] Drug Allergy 01-06-20 18 Unknown [facility] (7 sources) Nitrofurantoin; Translations: [NITROFURANTOIN MACROCRYSTAL] Drug Allergy 10-12-19 19 Rash, Itching [facility] (6 sources) Penicillins Drug Allergy 11-16-19 15 [facility] (20 sources) Povidone-Iodine; Translations: [POVIDONE-IODINE] Drug Allergy 06-21-20 19 Unknown [facility] (20 sources) Sulfonamides (Antibiotic) Drug Allergy 11-16-19 15 [facility] (20 sources) Vancomycin; Translations: [VANCOMYCIN] Drug Allergy 10-12-19 19 Rash, Itching [facility] (20 sources) Nitrofurantoin; Translations: [nitrofurantoin] Drug Allergy 12-02-19 21 rash [facility] (20 sources) Penicillin G Benzathine Drug allergy rash [facility] Other (20 sources) Sulfacetamide / Sulfur Drug Allergy rash [facility] Other (20 sources) Statins Depletion Drug allergy muscle aches [facility] Other (1 source) black walnut pollen extract Drug Allergy 05-17-20 14 [facility] Repository (1 source) Cephalosporins (Antibiotic) Drug allergy (disorder) 10-24-19 15 [facility] Repository (2 sources) Nitrofurantoin Drug Allergy 10-24-19 15 rash [facility] Repository (1 source) Penicillins Drug allergy (disorder) 01-24-20 13 [facility] Repository (2 sources) Povidone-Iodine Drug Allergy 06-21-20 19 Unknown [facility] Repository (1 source) Sulfonamides (Antibiotic) Drug allergy (disorder) 01-31-20 13 [facility] Repository (1 source) Vancomycin Drug Allergy 10-24-19 15 [facility] Repository (20 sources) Statins Depletion *DIETARY PRODUCTS/DIETARY MANAGE Propensity to adverse reactions Unknown [facility] Other (20 sources) Substance with penicillin structure and antibacterial mechanism of action (substance) Drug allergy 04-30-20 06 PENICILLINS [facility] Other (20 sources) Sulf-10 Drug allergy 12-01-19 06 SULFA 10 [facility] Other (1 source) Vancomycin Drug Allergy rash [facility] Other (1 source) Cephalosporins (Antibiotic) Drug allergy (disorder) 03-16-20 [facility] Repository (1 source) Povidone-Iodine Drug Allergy 03-16-20 [facility] Repository (1 source) Vancomycin Drug Allergy 03-16-20 [facility] Repository Medications Current Medications Medication Drug [...] by mouth every four to six hours Pqhacfw-Mcqswjdkfhmtb-Onujcnro (Excedrin Migraine) 250-250-65 mg Tablet Active 1 TAB PO EVERY 4-6 HOURS July 26, 2022 1:00am take 2 tablets by mouth every si x hours Excedrin Migraine 250-250-65 MG 2 tablets as needed Orally every 6 hrs Active [id number] actuat albuterol 0.09 mg/actuat metered dose [...] Start: 12-28-2017 take 1 capsule by mo [facility] every twelve hours Doxycycline Hyclate 100 MG [...] DAYS Start: 12-28-2022 take 1 tablet by [facility] once daily in the morning Levothyroxine Sodium [...] sources) Multivitamin Act kerri Multivitamin Not -Taking [place] 3 1200 MG (20 sources) take 1 capsule by [facility] once daily [place] 3 1200 MG 1 capsule Orally Once a day Active take 1 capsule by mouth once taniya ly [place] 3 1200 MG 1 capsule Orally Once [...] needed Orally every 6 hrs Not-Taking Vit C,Z-Qe-Ejekw-Lutein-Zeax an (Preservision Areds-2) 250-90-40-1 mg Capsule (5 sources) Start: 07-26-2022 Vit C,E-Qa-Oulgf-Lutein-Zeax an (Preservision Areds-2) 250-90-40-1 mg Capsule Active 1 TAB PO Twice daily July 26, 2022 1:00am Start: 07-26-2022 Vit C,E-Zn-Gang Boss mg-Qlfcnz-Fmvyac (Preservision Areds-2) 250-90-40-1 mg Capsule Active 1 [...] Comment on above: Take by mouth. CA/D3/MAG OX/ZINC/PUMPER GAUGER APPRENTICE/MEREDITH/ BOR (CALCIUM 600+D3 PLUS ORAL) (6 sources) take 1200 mg by mouth once daily CA/D3/MAG OX/ZINC/PUMPER GAUGER APPRENTICE/MEREDITH/B OR (CALCIUM 600+D3 PLUS ORAL) Take 1,200 mg by mouth once daily. 0 Active Comment on above: Take 1,200 mg by [facility] once daily. celecoxib 100 mg oral [...] mg by mouth twice daily. 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; Translations: [Chronic omil-GOCLV-22 syndrome] Viral infection (4 sources) COVID-19; Translations: [...] 05-22-2020 Episodic Other aftercare (1 source) Other assisted (current) drug therapy; Translations: [OTH [facility]CI CURRENT DRUG THERAPY] Onset: 01-29-2022 Episodic Other [...] Interpretation Reference Range Facility CT chest w [facility] 03-16-2024 CT chest w [facility] [place] [address] CT Scan Report Signed Patient: Tangela Trinidad MR#: [id number] : 1940 Acct:[id number] Age/Sex: 84 / F ADM Date: 03/16/24 Loc: CT Room: Type: [facility] Attending Dr: Lorelei Hurtado DO Copies [...] Viveros Jr., D.OOrlin03/16/2024 2:09 PM Dictation Location: [place] [address] Transcribed By: [facility] 03/16/24 1409 Dictated By: Bert Viveros Jr, DO 03/16/24 1403 Signed By: 03/16/24 140 Normal [facility] Creatinineon 03-16-2024 GFR/1.73 sq M.predicted MDRD (S/P/Bld) [Vol rate/Area] mL/min/{1.73_m2} Normal [facility] Comment on above: Result Comment: PERF ORMED BY: [place] [address] PATHOLOGIST [employer]ION [employer]ER[employer] LENS TECHNICIAN SPEEDY GRAY M.D. Performed By: #### C REAT #### [facility] [address] [place] [address] Creatinine [Mass/volume] in Serum or PlasmaOrdered By: Lorelei Hurtado on 03-16-2024 Creatinine [Mass/Vol] 0.83 mg/dL Normal 0.60-1.20 [facility] Comment on above: Performed By: #### C REAT #### [facility] [address] [place] [address] No Panel InformationOrdered By: Lorelei Hurtado on 03-16-2024 Estimated GFR (CKD-EPI) > 60.0 mL/Min [facility] Creatinine Clearance (Chem N/A [facility] NM gastric emptying studyon 07-25-2023 NM gastric emptying study [facility] Main [place] [address] [place] [address] Nuclear Medicine Report Signed Patient: Tangela Trinidad MR#: [id number] : 1940 Acct:[id number] Age/Sex: 83 / F ADM Date: 07/25/23 Loc: [place] Room: Type: [facility] Attending Dr: Jeyson Diaz MD Copies [...] Matt Feldman M.D.07/25/2023 9:40 AM Dictation Location: [place] [address] Transcribed By: [facility] 07/25/23 0940 Dictated By: Matt Feldman DO 07/25/23 0934 Signed By: 07/25/23 0940 Normal [facility] MG MAMM SCREEN 3D ROXANA CADon 10-20-2022 MG MAMM SCREEN 3D ROXANA CAD Patient: TANGELA TRINIDAD. Exam Date: 10/20/2022 : 1940 Gender:F Ordering : DR KVNG MELGAR D.O. Admission #: [id number] Family : Order #: [id number] CLICK HERE TO VIEW EXAM RADIOLOGY REPORT [...] melonoma cancer at age 64. LOCATION: [facility] BREAST COMPOSITION: Scattered areas fibroglandular density. [...] 10/20/2022 at 13:19 Normal [facility] CBC W Auto Differential pane l (Bld)on 07-27-2022 Basophils (Bld) [#/Vol] 0.08 10*3/uL Normal <0.11 [facility] Comment on above: Order Comment: Speci men Type: BLOOD SPECIMEN Ordering Facility: [facility] Address: [address] [address] Performed By: #### 1 4196-0, 94553-4 #### [facility] CLIA [id number] [address] [place] [address] Basophils/100 WBC (Bld) 0.9 % Normal [facility] Comment on above: Order Comment: Speci men Type: BLOOD SPECIMEN Ordering Facility: [facility] Address: [address] [place] [address] Performed By: #### 1 4196-0, 15742-5 #### [facility] CLIA [id number] [address] [place] [address] 24896 Differential cell count method Nom (Bld) Auto Normal [facility] Comment on above: Order Comment: Speci men Type: BLOOD SPECIMEN Ordering Facility: [facility] Address: [address] [place] [address] Performed By: #### 1 4196-0, 14230-5 #### [facility] CLIA [id number] [address] [place] [address] Eosinophils (Bld) [#/Vol] 0.52 10*3/uL High <0.46 [facility] Comment on above: Order Comment: Speci men Type: BLOOD SPECIMEN Ordering Facility: [facility] Address: [address] [place] [address] Performed By: #### 1 4196-0, 31422-2 #### [facility] CLIA [id number] [address] [place] [address]114 Eosinophils/100 WBC (Bld) 5.8 % Normal [facility] Comment on above: Order Comment: Speci men Type: BLOOD SPECIMEN Ordering Facility: [facility] Address: [address] [place] [address] Performed By: #### 1 4196-0, 30574-4 #### [facility] CLIA [id number] [address] [place] [address]75 Erythrocyte distribution width (RBC) [Ratio] 18.0 % High 11.5-15.0 [facility] Comment on above: Order Comment: Speci men Type: BLOOD SPECIMEN Ordering Facility: [facility] Address: [address] [place] [address] Performed By: #### 1 4196-0, 36205-2 #### [facility] CLIA [id number] [address] [place] [address] 79596 Hematocrit (Bld) [Volume fraction] 39.6 % Normal 36.0-46.0 [facility] Comment on above: Order Comment: Speci men Type: BLOOD SPECIMEN Ordering Facility: [facility] Address: [address] [place] [address] Performed By: #### 1 4196-0, 07036-4 #### [facility] CLIA [id number] [address] [place] [address]31 Hemoglobin (Bld) [Mass/Vol] 13.0 g/dL Normal 11.5-15.5 [facility] Comment on above: Order Comment: Speci men Type: BLOOD SPECIMEN Ordering Facility: [facility] Address: [address] Performed By: #### 1 4196-0, 14597-1 #### [facility] CLIA [id number] [address] [place] [address] 73599 Immature granulocytes (Bld) [#/Vol] 0.04 10*3/uL Normal <0.10 [facility] Comment on above: Order Comment: Speci men Type: BLOOD SPECIMEN Ordering Facility: [facility] Address: [address] [place] [address] Performed By: #### 1 4196-0, 79871-6 #### [facility] CLIA [id number] [address] [place] [address] 79909 Immature granulocytes/100 WBC (Bld) 0.4 % Normal [facility] Comment on above: Order Comment: Speci men Type: BLOOD SPECIMEN Ordering Facility: [facility] Address: [address] [place] [address] Performed By: #### 1 4196-0, 80209-0 #### [facility] CLIA [id number] [address] [place] [address] 08147 Lymphocytes (Bld) [#/Vol] 3.25 10*3/uL Normal 1.00-4.00 [facility] Comment on above: Order Comment: Speci men Type: BLOOD SPECIMEN Ordering Facility: [facility] Address: [address] [place] [address] Performed By: #### 1 4196-0, 90033-1 #### [facility] CLIA [id number] [address] [place] [address] 16961 Lymphocytes/100 WBC (Bld) 36.3 % Normal [facility] Comment on above: Order Comment: Speci men Type: BLOOD SPECIMEN Ordering Facility: [facility] Address: [address] [place] [address] Performed By: #### 1 4196-0, 06530-1 #### [facility] CLIA [id number] [address] [place] [address] 23748 MCH (RBC) [Entitic mass] 28.3 pg Normal 26.0-34.0 [facility] Comment on above: Order Comment: Speci men Type: BLOOD SPECIMEN Ordering Facility: [facility] Address: [address] [place] [address] Performed By: #### 1 4196-0, 07739-0 #### [facility] CLIA [id number] [address] [place] [address] 34030 MCHC (RBC) [Mass/Vol] 32.8 g/dL Normal 30.5-36.0 [facility] Comment on above: Order Comment: Speci men Type: BLOOD SPECIMEN Ordering Facility: [facility] Address: [address] [place] [address] Performed By: #### 1 4196-0, 16728-8 #### [facility] CLIA [id number] [address] [place] [address] 86649 MCV (RBC) [Entitic vol] 86.1 fL Normal 80.0-100.0 [facility] Comment on above: Order Comment: Speci men Type: BLOOD SPECIMEN Ordering Facility: [facility] Address: [address] [place] [address] Performed By: #### 1 4196-0, 46785-2 #### [facility] CLIA [id number] [address] [place] [address] 13916 Monocytes (Bld) [#/Vol] 1.25 10*3/uL High <0.87 [facility] Comment on above: Order Comment: Speci men Type: BLOOD SPECIMEN Ordering Facility: [facility] Address: [address] [place] [address] Performed By: #### 1 4196-0, 18034-8 #### [facility] CLIA [id number] [address] [place] [address] 78243 Monocytes/100 WBC (Bld) 14.0 % Normal [facility] Comment on above: Order Comment: Speci men Type: BLOOD SPECIMEN Ordering Facility: [facility] Address: [address] [place] [address] Performed By: #### 1 4196-0, 18283-2 #### [facility] CLIA [id number] [address] [place] [address] 99498 Neutrophils (Bld) [#/Vol] 3.81 10*3/uL Normal 1.45-7.50 [facility] Comment on above: Order Comment: Speci men Type: BLOOD SPECIMEN Ordering Facility: [facility] Address: [address] [place] [address] Performed By: #### 1 4196-0, 21623-8 #### [facility] CLIA [id number] [address] [place] [address] 43052 Neutrophils/100 WBC (Bld) 42.6 % Normal [facility] Comment on above: Order Comment: Speci men Type: BLOOD SPECIMEN Ordering Facility: [facility] Address: [address] [place] [address] Performed By: #### 1 4196-0, 15808-4 #### [facility] CLIA [id number] [address] [place] [address] 60820 Nucleated RBC (Bld) [#/Vol] 10*3/uL Normal <0.01 [facility] Comment on above: Order Comment: Speci men Type: BLOOD SPECIMEN Ordering Facility: [facility] Address: [address] [address] Performed By: #### 1 4196-0, 73472-4 #### [facility] CLIA [id number] [address] [place] [address] 36827 Nucleated RBC/100 WBC (Bld) [Ratio] 0.0 /100 WBC Normal [facility] Comment on above: Order Comment: Speci men Type: BLOOD SPECIMEN Ordering Facility: [facility] Address: [address] [address] Performed By: #### 1 4196-0, 22858-9 #### [facility] CLIA [id number] [address] [place] [address] 03376 Platelet mean volume (Bld) [Entitic vol] 9.5 fL Normal 9.0-12.7 [facility] Comment on above: Order Comment: Speci men Type: BLOOD SPECIMEN Ordering Facility: [facility] Address: [address] [place] [address] Performed By: #### 1 4196-0, 29276-2 #### [facility] CLIA [id number] [address] [place] [address] 85923 Platelets (Bld) [#/Vol] 379 10*3/uL Normal 150-400 [facility] Comment on above: Order Comment: Speci men Type: BLOOD SPECIMEN Ordering Facility: [facility] Address: [address] [place] [address] Performed By: #### 1 4196-0, 66335-4 #### [facility] CLIA [id number] [address] [place] [address] 37055 RBC (Bld) [#/Vol] 4.60 10*6/uL Normal 3.90-5.20 [facility] Comment on above: Order Comment: Speci men Type: BLOOD SPECIMEN Ordering Facility: [facility] Address: [address] [place] [address] Performed By: #### 1 4196-0, 67296-5 #### [facility] CLIA [id number] [address] [place] [address] 04495 WBC (Bld) [#/Vol] 8.95 10*3/uL Normal 3.70-11.00 [facility] Comment on above: Order Comment: Speci men Type: BLOOD SPECIMEN Ordering Facility: [facility] Address: [address] [place] [address] Performed By: #### 1 4196-0, 41230-4 #### [facility] CLIA [id number] [address] [place] [address] 22561 CNOVSPon 07-27-2022 CNOVSP Visit (SP) Office ([place]) TANGELA TRINIDAD ([id number]) 1940 F Date Time Provider Department 07/27/22 2:45 PM MAVIS SANTIAGO During your visit today, we recorded the following information about you: Temperature Pulse Respiration Blood pressure 98.1 degrees 64/minute 16/minute 125/72 Weight Height 66.5 kg 1.524 m Mavis Santiago MD 07/27/2022 2:56 PM Signed PATIENT NAME: Tangela Trinidad CLINIC NO.: [id number] ATTENDING PHYSICIAN: Mavis Santiago MD DATE OF [...] Range Status (more content not included)... Normal [facility] Ferritin SerPl-mCncon 2022 Ferritin [Mass/Vol] 104.0 ng/mL Normal 14.7-205.1 [facility] Comment on above: Order Comment: Speci men Type: BLOOD SPECIMEN Ordering Facility: [facility] Address: [address] [place], [place] [address] Performed By: #### 5 0190-8, 2276-4 #### [facility] CLIA [id number] [address] [facility] [place] [address] [place] Iron and Iron binding capaci ty panelon 07-27-2022 Iron [Mass/Vol] 43 ug/dL Normal 41-186 [facility] Comment on above: Order Comment: Speci men Type: BLOOD SPECIMEN Ordering Facility: [facility] Address: [address] [place] [address] Performed By: #### 5 0190-8, 2276-4 #### [facility] CLIA [id number] [address] [place] [address] [place] Iron binding capacity [Mass/Vol] 265 ug/dL Normal 232-386 [facility] Comment on above: Order Comment: Speci men Type: BLOOD SPECIMEN Ordering Facility: [facility] Address: [address] [place] [address] Performed By: #### 5 0190-8, 2276-4 #### [facility] CLIA [id number] [address] [place] [address] [place] Iron/TIBC [Molar ratio] 16.2 % Normal 15.0-57.0 [facility] Comment on above: Order Comment: Speci men Type: BLOOD SPECIMEN Ordering Facility: [facility] Address: [address] [place] [address] Performed By: #### 5 0190-8, 2276-4 #### [facility] CLIA [id number] [address] [place] [address] [place] Retics #on 07-27-2022 Reticulocytes (Bld) [#/Vol] 0.06737 10*3/uL Normal 0.018-0.100 [facility] Comment on above: Order Comment: Speci men Type: BLOOD SPECIMEN Ordering Facility: [facility] Address: [address] [place] [address] Performed By: #### 1 4196-0, 77824-7 #### [facility] CLIA [id number] [address] [place] [address] 45117 Reticulocytes (Bld) [#/Vol]o n 07-27-2022 Reticulocytes/100 RBC (Bld) 0.9 % Normal 0.4-2.0 [facility] Comment on above: Order Comment: Speci men Type: BLOOD SPECIMEN Ordering Facility: [facility] Address: [place] [address] Performed By: #### 1 4196-0, 66238-7 #### [facility] CLIA [id number] [address] [place] [address]20 COVID-19 SOFIAOrdered By: Brandy Diaz on 07-22-2022 SARS-CoV+SARS-CoV-2 (COVID-19) Ag IA.rapid Ql (Resp) Negative Negative [facility] Comment on above: This is a duplicate Heidi SARS Antigen (DB) result to be used for statistical tracking purpose only. No Panel InformationOrdered By: Jeyson Diaz on 07-22-2022 SARS Antigen (LFIA) [facility] CNSWon 06-02-2022 [facility] Social Work ([facility]) TANGELA TRINIDAD ([id number]) 1940 F Date Time Provider Department 06/02/22 [...] - Hives POVIDONE-IODINE 06/21/2019 16 - Unknown KDHORIR-GTX-XGV REDUCTASE INHIBIT*01/05/2018 16 - Unknown SULFA (SULFONAMIDE [...] 112 mcg tablet 0.125 mcg. - CA/D3/MAG OX/ZINC/PUMPER GAUGER APPRENTICE/MEREDITH/BOR (CALCIUM 600+D3 PLUS ORAL) Take 1,200 mg by mouth once daily. - atenolol (TENORMIN) 25 mg tablet Take 1 tablet by mouth once daily. Problem List As Of Date 06/02/2022 Noted Resolved Anemia [D64.9] 11/15/2014 Iron deficiency [E61.1] 11/15/2014 Encounter Status:Closed by MARCIA RAMIRES on 06/02/22 [facility] T[facility]EL[facility]IN[facility]AD ([id number]) 1940 F Date Time Provider Department 05/25/22 [employer] NAVIGATOR DAMON BREWER During your visit today, we recorded the following information about you: Mohit Lo [facility] 05/25/2022 3:35 PM Signed 1st report of treatment-non oncology regimen (Monoferric) Patient holds Medicare coverage. No FA available at this time. Allergies As of Date: 05/25/2022 Noted Allergy Reaction CEPHALOSPORINS 10/23/2014 16 - Unknown MACRODANTIN (NITROFURANTOIN MACRO*10/11/2018 2 - Rash 9 - Itching PENICILLINS 11/15/2014 4 - Hives POVIDONE-IODINE 06/21/2019 16 - Unknown KCFQFES-VDP-KIE REDUCTASE INHIBIT*01/05/2018 16 - Unknown SULFA (SULFONAMIDE ANTIBIOTICS) 11/15/2014 4 - Hives VANCOMYCIN 10/11/2018 2 - Rash 9 - Itching Date Reviewed: 05/18/2022 Reviewed by: Lyla Beasley - Fully Assessed Reason for Visit: Benefits Investigation [4058] Prescriptions as of 05/25/2022 - diclofenac, EC, [...] 112 mcg tablet 0.125 mcg. - CA/D3/MAG OX/ZINC/PUMPER GAUGER APPRENTICE/MEREDITH/BOR (CALCIUM 600+D3 PLUS ORAL) Take 1,200 mg [...] NAUN JIMENES, MOHIT Funes on 05/25/22 Normal [facility] CNOVSPon 05-18-2022 CNOVSP Visit (SP) Office ([place]) TANGELA TRINIDAD ([id number]) 1940 F Date Time Provider Department 05/18/22 4:00 PM MAVIS SANTIAGO During your visit today, we recorded the following information about you: Temperature Pulse Respiration Blood pressure 98.1 degrees 78/minute 16/minute 122/78 Weight 68 kg Mavis Santiago MD 05/18/2022 4:08 PM Signed PATIENT NAME: Tangela Trinidad CLINIC NO.: [id number] ATTENDING PHYSICIAN: Mavis Santiago MD DATE OF [...] Range Status (more content not included)... Normal [facility] IMMUNOFIXATION(ELISE),PROTEIN ELEC(PE),FREon 05-06-2022 Albumin [Mass/Vol] 2.9 g/dL Normal 2.9-4.4 [facility] Comment on above: Performed By: #### I FEPEFL #### [facility] [address] [place], [place] [address] Dr. Yayo Gregg Albumin/Globulin [Mass ratio] 1.2 {ratio} Normal 0.7-1.7 [facility] Comment on above: Performed By: #### I FEPEFL #### [facility] [address] [place] [address] [address] Yayo Gregg Makfg-1-Flqixuhu 0.3 g/dL Normal 0.0-0.4 The [facility] Comment on above: Performed By: #### I FEPEFL #### [facility] [address] [place] [address] Dr. Yayo Gregg Jvrpi-8-Gzkumlwe 0.7 g/dL Normal 0.4-1.0 The [facility] Comment on above: Performed By: #### I FEPEFL #### [facility] [address] [place] [address] Dr. Yayo Gregg Beta Globulin 0.9 g/dL Normal 0.7-1.3 The [facility] Comment on above: Performed By: #### I FEPEFL #### [facility] [address] [place] [address] Dr. Yayo Gregg Free Grandfalls Lt Chains,S 39.9 mg/L Critically high 3.3-19.4 [facility] Comment on above: Performed By: #### I FEPEFL #### [facility] [address] [place] [address] Dr. Yayo Gregg Free Lambda Lt Chains,S 22.7 mg/L Normal 5.7-26.3 [facility] Comment on above: Performed By: #### I FEPEFL #### [facility] [address] [place] [address] Dr. Yayo Gregg Gamma Globulin 0.6 g/dL Normal 0.4-1.8 The [facility] Comment on above: Performed By: #### I FEPEFL #### [facility] [address] [place] [address] Dr. Yayo Gregg Globulin (S) [Mass/Vol] 2.6 g/dL Normal 2.2-3.9 [facility] Comment on above: Performed By: #### I FEPEFL #### [facility] [address] [place] [address] Dr. Yayo Gregg Immunofixation Result, Serum Comment Normal [facility] Comment on above: Result Comment: No m onoclonality detected. Performed By: #### I FEPEFL #### [facility] [address] [address] [address] Yayo Gregg Immunoglobulin A, Qn, Serum 81 mg/dL Normal 64-422 [facility] Comment on above: Performed By: #### I FEPEFL #### [facility] [address] [address] [address] Yayo Gregg Immunoglobulin G, Qn, Serum 547 mg/dL Critically low 586-1602 [facility] Comment on above: Performed By: #### I FEPEFL #### [facility] [address] [address] [address] Yayo Gregg Immunoglobulin M, Qn, Serum 92 mg/dL Normal 26-217 [facility] Comment on above: Performed By: #### I FEPEFL #### [facility] [address] [place] [address] Dr. Yayo Gregg Grandfalls/Lambda Ratio, S 1.76 Critically high 0.26-1.65 [facility] Comment on above: Performed By: #### I FEPEFL #### [facility] [address] [place] [address] Dr. Yayo Gregg M-Johan Not Observed Normal Not Observed [facility] Comment on above: Performed By: #### I FEPEFL #### [facility] [address] [place] [address] Dr. Yayo Gregg PDF . Normal [facility] Comment on above: Performed By: #### I FEPEFL #### [facility] [address] [place] [address] Dr. Yayo Gregg Please note: Comment Normal [facility] Comment on above: Result Comment: Prot ein electrophoresis scan will follow via computer, mail, or chart snatcher delivery. Performed By: #### I FEPEFL #### [facility] [address] [place] [address] Dr. Yayo Gregg Protein [Mass/Vol] 5.5 g/dL Critically low 6.0-8.5 [facility] Comment on above: Performed By: #### I FEPEFL #### [facility] [address] [place] [address] Dr. Yayo Grgeg IMMUNOGLOBULINS IGA/IGM/IGG QUANTITATIVEon 05-05-2022 Immunoglobulin A, Qn, Serum 83 mg/dL Normal 64-422 [facility] Comment on above: Performed By: #### I MMUNGL #### [facility] [address] [place] [address] Dr. Yayo Gregg Immunoglobulin G, Qn, Serum 559 mg/dL Critically low 586-1602 [facility] Comment on above: Performed By: #### I MMUNGL #### [facility] [address] [place] [address] Dr. Yayo Gregg Immunoglobulin M, Qn, Serum 93 mg/dL Normal 26-217 [facility] Comment on above: Performed By: #### I MMUNGL #### [facility] [address] [place] [address] Dr. Yayo Gregg CBC AUTO DIFFon 05-04-2022 BASO # 0.1 103/ul Normal 0.0-0.1 [facility] Comment on above: Performed By: #### I MMUNGL #### [facility] [address] [place] [address] Dr. Yayo Gregg Basophils/100 WBC (Bld) 0.9 % Normal 0.2-2.0 [facility] Comment on above: Performed By: #### I MMUNGL #### [facility] [address] [place] [address] Dr. Yayo Gregg EO # 0.7 103/ul Normal 0.0-0.7 [facility] Comment on above: Performed By: #### I MMUNGL #### [facility] [address] [place] [address] Dr. Yayo Gregg Eosinophils/100 WBC (Bld) 6.7 % Normal 0.9-7.0 [facility] Comment on above: Performed By: #### I MMUNGL #### [facility] [address] [place] [address] Dr. Yayo Gregg Erythrocyte distribution width (RBC) [Ratio] 15.6 % Critically high 11.0-15.0 [facility] Comment on above: Performed By: #### I MMUNGL #### [facility] [address] [place] [address] Dr. Yayo Gregg Hematocrit (Bld) [Volume fraction] 31.3 % Critically low 36.0-48.0 [facility] Comment on above: Performed By: #### I MMUNGL #### [facility] [address] [place] [address] Dr. Yayo Gregg Hemoglobin (Bld) [Mass/Vol] 10.0 g/dL Critically low 12.0-16.0 [facility] Comment on above: Performed By: #### I MMUNGL #### [facility] [address] [place] [address] Dr. Yayo Gregg IG # 0.04 10e3/ul Critically high 0.00-0.03 [facility] Comment on above: Performed By: #### I MMUNGL #### [facility] [address] [place] [address] Dr. Yayo Gregg IG % 0.4 % Normal 0.0-0.5 [facility] Comment on above: Performed By: #### I MMUNGL #### [facility] [address] [place] [address] Dr. Yayo Gregg LYMPH # 2.9 103/ul Normal 1.2-3.8 [facility] Comment on above: Performed By: #### I MMUNGL #### [facility] [address] [place] [address] Dr. Yayo Gregg Lymphocytes/100 WBC (Bld) 29.6 % Normal 20.5-60.0 [facility] Comment on above: Performed By: #### I MMUNGL #### [facility] [address] [place] [address] Dr. Yayo Gregg MANUAL DIFF REQ NO Normal [facility] Comment on above: Performed By: #### I MMUNGL #### [facility] [address] [place] [address] Dr. Yayo Gregg MCH (RBC) [Entitic mass] 25.7 pg Critically low 26.7-34.0 [facility] Comment on above: Performed By: #### I MMUNGL #### [facility] [address] [place] [address] Dr. Yayo Gregg MCHC (RBC) [Mass/Vol] 31.9 g/dL Normal 29.9-35.2 [facility] Comment on above: Performed By: #### I MMUNGL #### [facility] [address] [place] [address] Dr. Yayo Gregg MCV (RBC) [Entitic vol] 80.5 fL Critically low 81.0-99.0 [facility] Comment on above: Performed By: #### I MMUNGL #### [facility] [address] [place] [address] Dr. Yayo Gregg MONO # 1.4 103/ul Critically high 0.3-0.8 [facility] Comment on above: Performed By: #### I MMUNGL #### [facility] [address] [place] [address] Dr. Yayo Gregg Monocytes/100 WBC (Bld) 14.5 % Critically high 1.7-12.0 [facility] Comment on above: Performed By: #### I MMUNGL #### [facility] [address] [place] [address] Dr. Yayo Gregg NEUT # 4.7 103/ul Normal 1.4-6.5 [facility] Comment on above: Performed By: #### I MMUNGL #### [facility] [address] [place] [address] Dr. Yayo Gregg Neutrophils/100 WBC (Bld) 47.9 % Normal 43.0-75.0 [facility] Comment on above: Performed By: #### I MMUNGL #### [facility] [address] [place] [address] Dr. Yayo Gregg Platelet mean volume (Bld) [Entitic vol] 9.5 fL Normal 9.5-13.5 [facility] Comment on above: Performed By: #### I MMUNGL #### [facility] [address] [place] [address] Dr. Yayo Gregg PLT 457 103/ul Critically high 150-450 [facility] Comment on above: Performed By: #### I MMUNGL #### [facility] [address] [place] [address] Dr. Yayo Gregg RBC 3.89 106/ul Critically low 4.20-5.40 [facility] Comment on above: Performed By: #### I MMUNGL #### [facility] [address] [place] [address] Dr. Yayo Gregg WBC 9.8 103/ul Normal 4.0-11.0 [facility] Comment on above: Performed By: #### I MMUNGL #### [facility] [address] [place] [address] Dr. Yayo Gregg FERRITINon 05-04-2022 Ferritin [Mass/Vol] 20.0 ng/mL Normal 8.0-252.0 [facility] Comment on above: Performed By: #### F ERR, FETIBC #### [facility] [address] [place] [address] Dr. Yayo Gregg IRON AND TIBCon 05-04-2022 % SATURATION 5.7 % Normal [facility] Comment on above: Performed By: #### F ERR, FETIBC #### [facility] [address] [place] [address] Dr. Yayo Gregg Iron [Mass/Vol] 18.0 ug/dL Critically low 50.0-170.0 The [facility] Comment on above: Performed By: #### F ERR, FETIBC #### [facility] [address] [place] [address] Dr. Yayo Gregg TIBC DIRECT 318.0 ug/dL Normal 250.0-450.0 [facility] Comment on above: Performed By: #### F ERR, FETIBC #### [facility] [address] [place] [address] Dr. Yayo Gregg PROF CHEM 8 (BAS METB)on Anion gap [Moles/Vol] 11.7 mmol/L Normal [facility] Comment on above: Performed By: #### I MMUNGL #### [facility] [address] [address] [address] Yayo Gregg Calcium [Mass/Vol] 8.1 mg/dL Critically low 8.5-10.1 [facility] Comment on above: Performed By: #### I MMUNGL #### [facility] [address] [address] [address] Yayo Gregg Chloride [Moles/Vol] 100 mmol/L Normal 98-107 [facility] Comment on above: Performed By: #### I MMUNGL #### [facility] [address] [address] [address] Yayo Gregg CO2 [Moles/Vol] 25.7 mmol/L Normal 21.0-32.[address] [facility] Comment on above: Performed By: #### I MMUNGL #### [facility] [address] [address] [address] Yayo Gregg Creatinine [Mass/Vol] 1.06 mg/dL Critically high 0.55-1.02 [facility] Comment on above: Performed By: #### I MMUNGL #### [facility] [address] [address] [address] Yayo Gregg EGFR-AF GAMBIAN =60 Normal >=[address] [facility] Comment on above: Performed By: #### I MMUNGL #### [facility] [address] [address] [address] Yayo Gregg EGFR-NON AF GAMBIAN 49 mL/min/1.73m2 Critically low >=60 [facility] Comment on above: Performed By: #### I MMUNGL #### [facility] [address] [address] [address] Yayo Gregg Glucose [Mass/Vol] 121 mg/dL Critically high 74-106 [facility] Comment on above: Performed By: #### I MMUNGL #### [facility] [address] [address] [address] Yayo Gregg Potassium [Moles/Vol] 4.4 mmol/L Normal 3.5-5.1 [facility] Comment on above: Performed By: #### I MMUNGL #### [facility] [address] [place] [address] Dr. Yayo Gregg Sodium [Moles/Vol] 133 mmol/L Critically low 136-145 [facility] Comment on above: Performed By: #### I MMUNGL #### [facility] [address] [place] [address] Dr. Yayo Gregg Urea nitrogen [Mass/Vol] 16.0 mg/dL Normal 7.0-18.0 [facility] Comment on above: Performed By: #### I MMUNGL #### [facility] [address] [place] [address] Dr. Yayo Gregg Urea nitrogen/Creatinine [Mass ratio] 15.1 mg/mg Normal [facility] Comment on above: Performed By: #### I MMUNGL #### [facility] [address] [place] [address] Dr. Yayo Gregg T PROTEIN SERUMon 05-04-2022 Protein [Mass/Vol] 6.0 g/dL Critically low 6.4-8.2 [facility] Comment on above: Performed By: #### I MMUNGL #### [facility] [address] [place] [address] Dr. Yayo Gregg TSHon 05-04-2022 TSH 1.715 uIU/mL Normal 0.358-3.740 [facility] Comment on above: Performed By: #### I MMUNGL #### [facility] [address] [place] [address] Dr. Yayo Gregg CBC AUTO DIFFon 03-26-2022 BASO # 0.1 103/ul Normal 0.0-0.1 [facility] Comment on above: Performed By: #### C BC #### [facility] [address] [place] [address] Dr. Yayo Gregg Basophils/100 WBC (Bld) 1.0 % Normal 0.2-2.0 [facility] Comment on above: Performed By: #### C BC #### [facility] [address] [place] [address] Dr. Yayo Gregg EO # 0.8 103/ul Critically high 0.0-0.7 The [facility] Comment on above: Performed By: #### C BC #### [facility] [address] [address] [address] Yayo Gregg Eosinophils/100 WBC (Bld) 7.6 % Critically high 0.9-7.0 [facility] Comment on above: Performed By: #### C BC #### [facility] [address] [place] [address] Dr. Yayo Gregg Erythrocyte distribution width (RBC) [Ratio] 15.1 % Critically high 11.0-15.0 [facility] Comment on above: Performed By: #### C BC #### [facility] [address] [place] [address] Dr. Yayo Gregg Hematocrit (Bld) [Volume fraction] 32.0 % Critically low 36.0-48.0 [facility] Comment on above: Performed By: #### C BC #### [facility] [address] [place] [address] Dr. Yayo Gregg Hemoglobin (Bld) [Mass/Vol] 10.4 g/dL Critically low 12.0-16.0 [facility] Comment on above: Performed By: #### C BC #### [facility] [address] [place] [address] Dr. Yayo Gregg IG # 0.05 10e3/ul Critically high 0.00-0.03 [facility] Comment on above: Performed By: #### C BC #### [facility] [address] [place] [address] Dr. Yayo Gregg IG % 0.5 % Normal 0.0-0.5 [facility] Comment on above: Performed By: #### C BC #### [facility] [address] [place] [address] Dr. Yayo Gregg LYMPH # 2.9 103/ul Normal 1.2-3.8 [facility] Comment on above: Performed By: #### C BC #### [facility] [address] [place] [address] Dr. Yayo Gregg Lymphocytes/100 WBC (Bld) 27.7 % Normal 20.5-60.0 [facility] Comment on above: Performed By: #### C BC #### [facility] [address] [place] [address] Dr. Yayo Gregg MANUAL DIFF REQ NO Normal [facility] Comment on above: Performed By: #### C BC #### [facility] [address] [place] [address] Dr. Yayo Gregg MCH (RBC) [Entitic mass] 26.5 pg Critically low 26.7-34.0 [facility] Comment on above: Performed By: #### C BC #### [facility] [address] [place] [address] Dr. Yayo Gregg MCHC (RBC) [Mass/Vol] 32.5 g/dL Normal 29.9-35.2 [facility] Comment on above: Performed By: #### C BC #### [facility] [address] [place] [address] Dr. Yayo Gregg MCV (RBC) [Entitic vol] 81.4 fL Normal 81.0-99.0 [facility] Comment on above: Performed By: #### C BC #### [facility] [address] [place] [address] Dr. Yayo Gregg MONO # 1.3 103/ul Critically high 0.3-0.8 [facility] Comment on above: Performed By: #### C BC #### [facility] [address] [place] [address] Dr. Yayo Gregg Monocytes/100 WBC (Bld) 12.5 % Critically high 1.7-12.0 [facility] Comment on above: Performed By: #### C BC #### [facility] [address] [place] [address] Dr. Yayo Gregg NEUT # 5.2 103/ul Normal 1.4-6.5 [facility] Comment on above: Performed By: #### C BC #### [facility] [address] [place] [address] Dr. Yayo Gregg Neutrophils/100 WBC (Bld) 50.7 % Normal 43.0-75.0 [facility] Comment on above: Performed By: #### C BC #### [facility] [address] [place] [address] Dr. Yayo Gregg Platelet mean volume (Bld) [Entitic vol] 9.6 fL Normal 9.5-13.5 [facility] Comment on above: Performed By: #### C BC #### [facility] [address] [place] [address] Dr. aYyo Gregg PLT 409 103/ul Normal 150-450 [facility] Comment on above: Performed By: #### C BC #### [facility] [address] [place] [address] Dr. Yayo Gregg RBC 3.93 106/ul Critically low 4.20-5.40 [facility] Comment on above: Performed By: #### C BC #### [facility] [address] [place] [address] Dr. Yayo Gregg WBC 10.3 103/ul Normal 4.0-11.0 [facility] Comment on above: Performed By: #### C BC #### [facility] [address] [place] [address] Dr. Yayo Gregg FERRITINon 03-26-2022 Ferritin [Mass/Vol] 22.0 ng/mL Normal 8.0-252.0 [facility] Comment on above: Performed By: #### I MMUNGL #### [facility] [address] [place] [address] Dr. Yayo Gregg CBC AUTO DIFFon 02-09-2022 BASO # 0.1 103/ul Normal 0.0-0.1 [facility] Comment on above: Performed By: #### C BC #### [facility] [address] [place] [address] Dr. Yayo Gregg Basophils/100 WBC (Bld) 0.7 % Normal 0.2-2.0 [facility] Comment on above: Performed By: #### C BC #### [facility] [address] [place] [address] Dr. Yayo Gregg EO # 0.9 103/ul Critically high 0.0-0.7 [facility] Comment on above: Performed By: #### C BC #### [facility] [address] [address] [address] Yayo Gregg Eosinophils/100 WBC (Bld) 7.5 % Critically high 0.9-7.0 [facility] Comment on above: Performed By: #### C BC #### [facility] [address] [address] [address] Yayo Gregg Erythrocyte distribution width (RBC) [Ratio] 15.1 % Critically high 11.0-15.0 [facility] Comment on above: Performed By: #### C BC #### [facility] [address] [place] [address] Dr. Yayo Gregg Hematocrit (Bld) [Volume fraction] 32.5 % Critically low 36.0-48.0 [facility] Comment on above: Performed By: #### C BC #### [facility] [address] [place] [address] Dr. Yayo Gregg Hemoglobin (Bld) [Mass/Vol] 10.9 g/dL Critically low 12.0-16.0 [facility] Comment on above: Performed By: #### C BC #### [facility] [address] [place] [address] Dr. Yayo Gregg IG # 0.16 10e3/ul Critically high 0.00-0.03 [facility] Comment on above: Performed By: #### C BC #### [facility] [address] [place] [address] Dr. Yayo Gregg IG % 1.3 % Critically high 0.0-0.5 [facility] Comment on above: Performed By: #### C BC #### [facility] [address] [place] [address] Dr. Yayo Gregg LYMPH # 2.9 103/ul Normal 1.2-3.8 [facility] Comment on above: Performed By: #### C BC #### [facility] [address] [place] [address] Dr. Yayo Gregg Lymphocytes/100 WBC (Bld) 24.0 % Normal 20.5-60.0 [facility] Comment on above: Performed By: #### C BC #### [facility] [address] [place] [address] Dr. Yayo Gregg MANUAL DIFF REQ NO Normal [facility] Comment on above: Performed By: #### C BC #### [facility] [address] [place] [address] Dr. Yayo Gregg MCH (RBC) [Entitic mass] 27.2 pg Normal 26.7-34.0 [facility] Comment on above: Performed By: #### C BC #### [facility] [address] [place] [address] Dr. Yayo Gregg MCHC (RBC) [Mass/Vol] 33.5 g/dL Normal 29.9-35.2 [facility] Comment on above: Performed By: #### C BC #### [facility] [address] [place] [address] Dr. Yayo Gregg MCV (RBC) [Entitic vol] 81.0 fL Normal 81.0-99.0 [facility] Comment on above: Performed By: #### C BC #### [facility] [address] [place] [address] Dr. Yayo Gregg MONO # 1.6 103/ul Critically high 0.3-0.8 [facility] Comment on above: Performed By: #### C BC #### [facility] [address] [place] [address] Dr. Yayo Gregg Monocytes/100 WBC (Bld) 13.4 % Critically high 1.7-12.0 [facility] Comment on above: Performed By: #### C BC #### [facility] [address] [place] [address] Dr. Yayo Gregg NEUT # 6.3 103/ul Normal 1.4-6.5 [facility] Comment on above: Performed By: #### C BC #### [facility] [address] [place] [address] Dr. Yayo Gregg Neutrophils/100 WBC (Bld) 53.1 % Normal 43.0-75.0 [facility] Comment on above: Performed By: #### C BC #### [facility] [address] [place] [address] Dr. Yayo Gregg Platelet mean volume (Bld) [Entitic vol] 9.4 fL Critically low 9.5-13.5 [facility] Comment on above: Performed By: #### C BC #### [facility] [address] [place] [address] Dr. Yayo Gregg PLT 426 103/ul Normal 150-450 [facility] Comment on above: Performed By: #### C BC #### [facility] [address] [place] [address] Dr. Yayo Gregg RBC 4.01 106/ul Critically low 4.20-5.40 [facility] [place] Comment on above: Performed By: #### C BC #### [facility] [address] [place] [address] Dr. Yayo Gregg WBC 11.9 103/ul Critically high 4.0-11.0 [facility] Comment on above: Performed By: #### C BC #### [facility] [address] [place] [address] Dr. Yayo Gregg FERRITINon 02-09-2022 Ferritin [Mass/Vol] 36.0 ng/mL Normal 8.0-252.0 [facility] Comment on above: Performed By: #### V ITB12, FETIBC, FERR #### [facility] [address] [place] [address] Dr. Yayo Gregg IRON AND TIBCon 02-09-2022 % SATURATION 5.2 % Normal [facility] Comment on above: Performed By: #### V ITB12, FETIBC, FERR #### [facility] [address] [place] [address] Dr. Yayo Gregg Iron [Mass/Vol] 16.0 ug/dL Critically low 50.0-170.0 [facility] Comment on above: Performed By: #### V ITB12, FETIBC, FERR #### [facility] [address] [place] [address] Dr. Yayo Gregg TIBC DIRECT 305.0 ug/dL Normal 250.0-450.0 [facility] Comment on above: Performed By: #### V ITB12, FETIBC, FERR #### [facility] [address] [place] [address] Dr. Yayo Gregg VITAMIN B12on 02-09-2022 Cobalamin (Vitamin B12) [Mass/Vol] 819.0 pg/mL Normal 193.0-986.0 [facility] Comment on above: Performed By: #### V ITB12, FETIBC, FERR #### [facility] [address] [place] [address] Dr. Yayo Gregg BNPon 01-27-2022 Natriuretic peptide B (Bld) [Mass/Vol] 270.0 pg/mL Normal <=1,800.0 [facility] Comment on above: Performed By: #### I MMUNGL #### [facility] [address] [place] [address] Dr. Yayo Gregg CARDIAC TARAN ADMITon 022 CK [Catalytic activity/Vol] 143 U/L Normal 26-192 [facility] Comment on above: Performed By: #### I MMUNGL #### [facility] [address] [place] [address] Dr. Yayo Gregg CK.MB [Mass/Vol] 2.66 ng/mL Normal <=3.60 [facility] Comment on above: Performed By: #### I MMUNGL #### [facility] [address] [place] [address] Dr. Yayo Gregg HSTROP 4.0 pg/mL Normal 4.0-51.3 [facility] Comment on above: Result Comment: CUT- OFF POINTS HAVE BEEN ESTABLISHED BASED ON THE FOURTH UNIVERSAL DEFINITIONS OF MYOCARDIAL INFARCTION. THE UPPER REFERENCE LIMIT (URL) OF TROPONIN, DEFINED THE 99TH PERCENTILE OF cTnI DISTRIBUTION IN A REFERENCE POPULATION, HAS BEEN CONFIRMED THE DECISION THRESHOLD FOR DE DIAGNOSIS. Performed By: #### I MMUNGL #### [facility] [address] [address] [address] Yayo Gregg CARA 113 ng/mL Critically high 9-82 [facility] [place] [facility] Comment on above: Performed By: #### I MMUNGL #### [facility] [address] [place] [address] Dr. Yayo Gregg CBC AUTO DIFFon 01-27-2022 BASO # 0.1 103/ul Normal 0.0-0.1 [facility] Comment on above: Performed By: #### C BC #### [facility] [address] [place] [address] Dr. Yayo Gregg Basophils/100 WBC (Bld) 0.7 % Normal 0.2-2.0 [facility] Comment on above: Performed By: #### C BC #### [facility] [address] [place] [address] Dr. Yayo Gregg EO # 1.1 103/ul Critically high 0.0-0.7 [facility] [place] Comment on above: Performed By: #### C BC #### [facility] [address] [place] [address] Dr. Yayo Gregg Eosinophils/100 WBC (Bld) 7.3 % Critically high 0.9-7.0 [facility] Comment on above: Performed By: #### C BC #### [facility] [address] [place] [address] Dr. Yayo Gregg Erythrocyte distribution width (RBC) [Ratio] 13.8 % Normal 11.0-15.0 [facility] Comment on above: Performed By: #### C BC #### [facility] [address] [place] [address] Dr. Yayo Gregg Hematocrit (Bld) [Volume fraction] 34.4 % Critically low 36.0-48.0 [facility] Comment on above: Performed By: #### C BC #### [facility] [address] [place] [address] Dr. Yayo Gregg Hemoglobin (Bld) [Mass/Vol] 11.3 g/dL Critically low 12.0-16.0 [facility] Comment on above: Performed By: #### C BC #### [facility] [address] [address] [address] Yayo Gregg IG # 0.09 10e3/ul Critically high 0.00-0.03 [facility] Comment on above: Performed By: #### C BC #### [facility] [address] [address] [address] Yayo Gregg IG % 0.6 % Critically high 0.0-0.5 [facility] Comment on above: Performed By: #### C BC #### [facility] [address] [place] [address] Dr. Yayo Gregg LYMPH # 2.5 103/ul Normal 1.2-3.8 [facility] Comment on above: Performed By: #### C BC #### [facility] [address] [place] [address] Dr. Yayo Gregg Lymphocytes/100 WBC (Bld) 16.6 % Critically low 20.5-60.0 [facility] Comment on above: Performed By: #### C BC #### [facility] [address] [place] [address] Dr. Yayo Gregg MANUAL DIFF REQ NO Normal [facility] Comment on above: Performed By: #### C BC #### [facility] [address] [place] [address] Dr. Yayo Gregg MCH (RBC) [Entitic mass] 26.7 pg Normal 26.7-34.0 [facility] Comment on above: Performed By: #### C BC #### [facility] [address] [place] [address] Dr. Yayo Gregg MCHC (RBC) [Mass/Vol] 32.8 g/dL Normal 29.9-35.2 [facility] Comment on above: Performed By: #### C BC #### [facility] [address] [place] [address] Dr. Yayo Gregg MCV (RBC) [Entitic vol] 81.1 fL Normal 81.0-99.0 [facility] Comment on above: Performed By: #### C BC #### [facility] [address] [address] [address] Yayo Gregg MONO # 2.1 103/ul Critically high 0.3-0.8 [facility] [place] Comment on above: Performed By: #### C BC #### [facility] [address] [place] [address] Dr. Yayo Gregg Monocytes/100 WBC (Bld) 14.0 % Critically high 1.7-12.0 [facility] Comment on above: Performed By: #### C BC #### [facility] [address] [place] [address] Dr. Yayo Gregg NEUT # 9.1 103/ul Critically high 1.4-6.5 [facility] [place] Comment on above: Performed By: #### C BC #### [facility] [address] [place] [address] Dr. Yayo Gregg Neutrophils/100 WBC (Bld) 60.8 % Normal 43.0-75.0 [facility] Comment on above: Performed By: #### C BC #### [facility] [address] [place] [address] Dr. Yayo Gregg Platelet mean volume (Bld) [Entitic vol] 10.2 fL Normal 9.5-13.5 [facility] Comment on above: Performed By: #### C BC #### [facility] [address] [place] [address] Dr. Yayo Gregg PLT 455 103/ul Critically high 150-450 [facility] [place] Comment on above: Performed By: #### C BC #### [facility] [address] [place] [address] Dr. Yayo Gregg RBC 4.24 106/ul Normal 4.20-5.40 [facility] Comment on above: Performed By: #### C BC #### [facility] [address] [place] [address] Dr. Yayo Gregg WBC 14.9 103/ul Critically high 4.0-11.0 [facility] Comment on above: Performed By: #### C BC #### [facility] [address] [place] [address] Dr. Yayo Gregg Covid-19 PCR (CVDTB)on 01-09 SARS-CoV-2 (COVID-19) RNA CHANTALE+probe Ql (Unsp spec) Not detected Normal NOT DETECTED [facility] Comment on above: Result Comment: When [...] for this test is supported by the [place] of Health and Human Service's declaration that [...] used). Performed By: #### C BC #### [facility] [address] [place] [address] Dr. Yayo Gregg PROF 14(COMP METB)on 022 Albumin [Mass/Vol] 3.0 g/dL Critically low 3.4-5.0 [facility] Comment on above: Performed By: #### I MMUNGL #### [facility] [address] [place] [address] Dr. Yayo Gregg Albumin/Globulin [Mass ratio] 0.9 {ratio} Normal [facility] Comment on above: Performed By: #### I MMUNGL #### [facility] [address] [place] [address] Dr. Yayo Gregg ALP [Catalytic activity/Vol] 95 U/L Normal 46-116 [facility] Comment on above: Performed By: #### I MMUNGL #### [facility] [address] [place] [address] Dr. Yayo Gregg ALT [Catalytic activity/Vol] 28 U/L Normal 14-59 [facility] Comment on above: Performed By: #### I MMUNGL #### [facility] [address] [address] [address] Yayo Gregg Anion gap [Moles/Vol] 11.9 mmol/L Normal [facility] Comment on above: Performed By: #### I MMUNGL #### [facility] [address] [address] [address] Yayo Gregg AST [Catalytic activity/Vol] 24 U/L Normal 15-37 [facility] Comment on above: Performed By: #### I MMUNGL #### [facility] [address] [address] [address] Yayo Gregg Bilirubin [Mass/Vol] 0.3 mg/dL Normal 0.2-1.0 [facility] Comment on above: Performed By: #### I MMUNGL #### [facility] [address] [address] [address] Yayo Gregg Calcium [Mass/Vol] 8.8 mg/dL Normal 8.5-10.1 [facility] Comment on above: Performed By: #### I MMUNGL #### [facility] [address] [address] [address] Yayo Gregg Chloride [Moles/Vol] 98 mmol/L Normal 98-107 [facility] Comment on above: Performed By: #### I MMUNGL #### [facility] [address] [address] [address] Yayo Gregg CO2 [Moles/Vol] 24.6 mmol/L Normal 21.0-32.[address] [facility] Comment on above: Performed By: #### I MMUNGL #### [facility] [address] [address] [address] Yayo Gregg Creatinine [Mass/Vol] 0.91 mg/dL Normal 0.55-1.02 [facility] Comment on above: Performed By: #### I MMUNGL #### [facility] [address] [address] [address] Yayo Gregg EGFR-AF GAMBIAN >60 Normal >=[address] [facility] Comment on above: Performed By: #### I MMUNGL #### [facility] [address] [address] [address] Yayo Gregg EGFR-NON AF GAMBIAN 59 mL/min/1.73m2 Critically low >=60 [facility] Comment on above: Performed By: #### I MMUNGL #### [facility] [address] [address] [address] Yayo Gregg Globulin (S) [Mass/Vol] 3.3 g/dL Normal [facility] Comment on above: Performed By: #### I MMUNGL #### [facility] [address] [address] [address] Yayo Gregg Glucose [Mass/Vol] 95 mg/dL Normal 74-106 [facility] Comment on above: Performed By: #### I MMUNGL #### [facility] [address] [address] [address] Yayo Gregg Potassium [Moles/Vol] 4.5 mmol/L Normal 3.5-5.1 [facility] Comment on above: Performed By: #### I MMUNGL #### [facility] [address] [address] [address] Yayo Gregg Protein [Mass/Vol] 6.3 g/dL Critically low 6.4-8.2 [facility] Comment on above: Performed By: #### I MMUNGL #### [facility] [address] [address] [address] Yayo Gregg Sodium [Moles/Vol] 130 mmol/L Critically low 136-145 [facility] Comment on above: Performed By: #### I MMUNGL #### [facility] [address] [address] [address] Yayo Gregg Urea nitrogen [Mass/Vol] 12.0 mg/dL Normal 7.0-18.0 [facility] Comment on above: Performed By: #### I MMUNGL #### [facility] [address] [address] [address] Yayo Gregg Urea nitrogen/Creatinine [Mass ratio] 13.2 mg/mg Normal [facility] Comment on above: Performed By: #### I MMUNGL #### [facility] [address] [place] [address] Dr. Yayo Gregg PROTIMEon 01-27-2022 INR Coag (PPP) [Relative time] 0.96 {INR} Normal [facility] Comment on above: Performed By: #### I MMUNGL #### [facility] [address] [place] [address] Dr. Yayo Gregg INR GUIDELINES SEE BELOW Normal [facility] Comment on above: Result Comment: ASHLEY RED INR: 2.0 - 3.0 CONDITIONS NOT LISTED BELOW 2.5 - 3.5 FOR PROSTHETIC HEART VALVE REPLACEMENT 2.5 - 3.5 RECURRENT THROMBOSIS Performed By: #### I MMUNGL #### [facility] [address] [place] [address] Dr. Yayo Gregg PT Coag (PPP) [Time] 10.4 s Normal 9.0-11.6 [facility] Comment on above: Performed By: #### I MMUNGL #### [facility] [address] [place] [address] Dr. Yayo Gregg PTTon 01-27-2022 aPTT Coag (Bld) [Time] 31.6 s Normal 22.3-36.[address] [facility] Comment on above: Performed By: #### I MMUNGL #### [facility] [address] [place] [address] Dr. Yayo Gregg TROPONIN, HIGH SENSITIVITYon 01-27-2022 HSTROP 4.7 pg/mL Normal 4.0-51.3 [facility] Comment on above: Result Comment: CUT- OFF POINTS HAVE BEEN ESTABLISHED BASED ON THE FOURTH UNIVERSAL DEFINITIONS OF MYOCARDIAL INFARCTION. THE UPPER REFERENCE LIMIT (URL) OF TROPONIN, DEFINED THE 99TH PERCENTILE OF cTnI DISTRIBUTION IN A REFERENCE POPULATION, HAS BEEN CONFIRMED THE DECISION THRESHOLD FOR DE DIAGNOSIS. Performed By: #### H STROPN #### [facility] [address] [place] [address] Dr. Yayo Gregg XR CHEST 1 Von [...] by: ANTHONY GUIDRY Date: 2022-01-27 11:47 Normal [facility] XR LSPINE 2_3 VIEWSon 2021 XR [...] by: BENJAMIN GUNN Date: 2021-12-18 14:19 Normal [facility] BASIC METABOLIC PANEL(BMP)on 01-06-2018 Anion gap 12 mmol/L Normal 9-18 [facility] Comment on above: Performed By: #### C VAMSI SHERIFFGR ####MAIN LABCLIA:[id number] [place] [address] BUN (urea nitrogen) 17 mg/dL Normal 8-23 [facility] Comment on above: Performed By: #### Yaquelin RUFFCBCGR ####MAIN LABCLIA:[id number] [facility] [address] BUN/Creatinine Ratio 22.1 mg/mg Normal [facility] Comment on above: Performed By: #### Yaquelin RUFFCBCGR ####MAIN LABCLIA:[id number] [place] [address] Calcium 7.9 mg/dL Low 8.8-10.2 [facility] Comment on above: Performed By: #### C Yaquelin SHERIFFCBCGR ####MAIN LABCLIA:[id number] [facility] [address] Chloride 101 mmol/L Normal 98-107 [facility] Comment on above: Performed By: #### VAMSI RFUFGR ####MAIN LABCLIA:[id number] [facility] [address] CO2 24 mmol/L Normal 22-29 [facility] Comment on above: Performed By: #### VAMSI RUFFGR ####MAIN LABCLIA:[id number] [facility] [place] [address] Creatinine 0.77 mg/dL Normal 0.50-0.90 [facility] Comment on above: Performed By: #### VAMSI RUFFGR ####MAIN LABCLIA:[id number] [place] [address] eGFR (MDRD) 77 /1.73 m2 Normal >60 mL/min [facility] Comment on above: Result Comment: Norm al RangeStage Description:1 Normal or Increased GFR >=902 Mild Decrease in GFR 60-903 Moderately Decreased GFR 30-594 Severely Decreased GFR 15-295 Kidney Failure <15 Performed By: #### MELONY RUFF ####MAIN LABCLIA:[id number] [facility] [address] Glucose mass conc 89 mg/dL Normal 74-109 [facility] Comment on above: Performed By: #### VAMSI RUFFGR ####MAIN LABCLIA:[id number] [facility] [place] [address] Potassium molar conc 4.4 mmol/L Normal 3.5-5.1 [facility] Comment on above: Performed By: #### VAMSI RUFFGR ####MAIN LABCLIA:[id number] [facility] [address] Sodium 133 mmol/L Low 136-145 [facility] Comment on above: Performed By: #### VAMSI RUFFGR ####MAIN LABCLIA:[id number] [facility] [address] CBC/DIFF GROUPon 01-06-2018 Anisocytosis presence 1+ Normal [facility] Comment on above: Performed By: #### C SHARITA ZCBCGR ####MAIN LABCLIA:[id number] [facility] [address] HYPOCHROMASIA 1+ Normal [facility] Comment on above: Performed By: #### C SHARITA ZCBCGR ####MAIN LABCLIA:[id number] [place] [address] NORMOCHROMIC NO Normal [facility] Comment on above: Performed By: #### C SHARITA ZCBCGR ####MAIN LABCLIA:[id number] [facility] [address] NORMOCYTIC NO [facility] Comment on above: Performed By: #### C SHARITA ZCBCGR ####MAIN LABCLIA:[id number] [facility] [address] Platelets NORMAL Normal [facility] Comment on above: Performed By: #### C SHARITA ZCBCGR ####MAIN LABCLIA:[id number] [facility] [address] BAND NEUTROPHILS #(MANUAL) 152 /cmm Normal <648 [facility] Comment on above: Performed By: #### Vladimir SHERIFF ZCBCGR ####MAIN LABCLIA:[id number] [facility] [address] Eosinophils 456 /cmm High <432 [facility] Comment on above: Performed By: #### Vladimir SHERIFF ZCBCGR ####MAIN LABCLIA:[id number] [facility] [address] Eosinophils/100 leukocytes 6 % High <4 [facility] Comment on above: Performed By: #### C SHARITA ZCBCGR ####MAIN LABCLIA:[id number] [facility] [address] Lymphocytes 1748 /cmm Normal 960-4752 [facility] Comment on above: Performed By: #### Vladimir SHERIFF ZCBCGR ####MAIN LABCLIA:[id number] [facility] [address] Lymphocytes/100 leukocytes 23 % Normal 20-44 [facility] Comment on above: Performed By: #### Vladimir SHERIFF ZCBCGR ####MAIN LABCLIA:[id number] [facility] [address] METAMYELOCYTES #(MANUAL) 76 /cmm High 0 [facility] Comment on above: Performed By: #### Vladimir SHERIFF ZCBCGR ####MAIN LABCLIA:[id number] [facility] [address] Metamyelocytes/100 leukocytes 1 % High 0 [facility] Comment on above: Performed By: #### Yaquelin RUFFCBCGR ####MAIN LABCLIA:[id number] [facility] [address] Monocytes 1292 /cmm High 96-972 [facility] Comment on above: Performed By: #### Vladimir SHERIFF ZCBCGR ####MAIN LABCLIA:[id number] [facility] [address] Monocytes/100 leukocytes 17 % High 2-9 [facility] Comment on above: Performed By: #### Vladimir SHERIFF ZCBCGR ####MAIN LABCLIA:[id number] [facility] [address] Neutrophils 3876 /cmm Normal 4396-3924 [facility] Comment on above: Performed By: #### Vladimir SHERIFF ZCBCGR ####MAIN LABCLIA:[id number] [facility] [address] Neutrophils band/100 leukocytes 2 % Normal <6 [facility] Comment on above: Performed By: #### Vladimir SHERIFF ZCBCGR ####MAIN LABCLIA:[id number] [facility] [address] Neutrophils/100 WBC Auto (Bld) 51 % Normal 50-70 [facility] Comment on above: Performed By: #### Vladimir SHERIFF ZCBCGR ####MAIN LABCLIA:[id number] [facility] [address] TOTAL CELLS COUNTED 100 Normal [facility] Comment on above: Performed By: #### C SHARITA ZCBCGR ####MAIN LABCLIA:[id number] [facility] [address] Erythrocyte distribution width Auto Ratio (RBC) 13.0 % Normal 11.5-14.5 [facility] Comment on above: Performed By: #### C SHARITA ZCBCGR ####MAIN LABCLIA:[id number] [facility] [address] Erythrocytes (RBC) 3.49 10 6/cmm Low 4.20-5.40 [facility] Comment on above: Performed By: #### C Yaquelin SHERIFFCBCGR ####MAIN LABCLIA:[id number] [place] [address] Hematocrit (HCT) 29.4 % Low 38.0-47.0 [facility] Comment on above: Performed By: #### C Yaquelin SHERIFFCBCGR ####MAIN LABCLIA:[id number] [facility] [address] Hemoglobin mass conc (Bld) 10.1 g/dL Low 12.0-16.4 [facility] Comment on above: Performed By: #### C Yaquelin SHERIFFCBCGR ####MAIN LABCLIA:[id number] [facility] [address] MCH 34.5 g/dL Normal 32.0-36.0 [facility] Comment on above: Performed By: #### C SHARITA ZCBCGR ####MAIN LABCLIA:[id number] [facility] [address] MCH 29.1 pg Normal 27.0-31.0 [facility] Comment on above: Performed By: #### C SHARITA ZCBCGR ####MAIN LABCLIA:[id number] [place] [address] MCV 84.3 fL Normal 80.0-96.0 [facility] Comment on above: Performed By: #### C SHARITA ZCBCGR ####MAIN LABCLIA:[id number] [place] [address] Platelets 359 10 3/cmm Normal 130-400 [facility] Comment on above: Performed By: #### C BC, ZCBCGR ####MAIN LABCLIA:[id number] [place] [address] WBC (Leukocytes) 7.6 10 3/cmm Normal 4.8-10.8 [facility] Comment on above: Performed By: #### C BC, ZCBCGR ####MAIN LABCLIA:[id number] [place] [address] FREE T4 (FREE THYROXINE)on 0 01-06-2018 Thyroxine (T4) free 2.46 ng/dL High 0.93-1.7 [facility] Comment on above: Performed By: #### C BC, ZCBCGR ####MAIN LABCLIA:[id number] [place] [address] IM Progress Noteon 8 IM Progress Note [address] [place], [place] [address] [address] [id number] Donnell Barton MD 4W / [id number] Report #: [id number] Hospitalist Progress Note Date/Time: 01/06/18805 Report Status: [...] fine and wants to go back to [place]. Her will be driving. - Reviewed laboratory [...] have her follow-up with her physician in [place]. (2) Hyponatremia Status: Improved Plan: Sodium of 133-asymptomatic urine sodium slightly elevated at 35. (3) Essential hypertension Status: Stable (4) Hypothyroidism Plan: Suppressed TSH, her physician from [place] just called her in down dosed her [...] Date/Time: Normal [facility] T3 FREEon 01-06-2018 Triiodothyronine (T3) free 5.92 pg/mL High 2.0-4.4 [facility] Comment on above: Performed By: #### C VAMSI SHERIFFGR ####MAIN LABCLIA:[id number] [place] [address] CBC/DIFF GROUPon 01-05-2018 NORMOCHROMIC YES Normal [facility] Comment on above: Performed By: #### C MELONY SHERIFF ####MAIN LABCLIA:[id number] [place] [address] NORMOCYTIC YES Normal [facility] Comment on above: Performed By: #### C MELONY SHERIFF ####MAIN LABCLIA:[id number] [facility] [address] Platelets NORMAL Normal [facility] Comment on above: Performed By: #### Vladimir SHERIFF ZCBCGR ####MAIN LABCLIA:[id number] [facility] [address] BAND NEUTROPHILS #(MANUAL) 414 /cmm Normal <648 [facility] Comment on above: Performed By: #### C SHARITA ZCBCGR ####MAIN LABCLIA:[id number] [facility] [address] Eosinophils 552 /cmm High <432 [facility] Comment on above: Performed By: #### C SHARITA ZCBCGR ####MAIN LABCLIA:[id number] [facility] [address] Eosinophils/100 leukocytes 4 % Normal <4 [facility] Comment on above: Performed By: #### Vladimir SHERIFF ZCBCGR ####MAIN LABCLIA:[id number] [place] [address] Lymphocytes 690 /cmm Low 960-4752 [facility] Comment on above: Performed By: #### C SHARITA ZCBCGR ####MAIN LABCLIA:[id number] [place] [address] Lymphocytes/100 leukocytes 5 % Low 20-44 [facility] Comment on above: Performed By: #### Vladimir SHERIFF ZCBCGR ####MAIN LABCLIA:[id number] [place] [address] Monocytes 1242 /cmm High 96-972 [facility] Comment on above: Performed By: #### C SHARITA ZCBCGR ####MAIN LABCLIA:[id number] [facility] [address] Monocytes/100 leukocytes 9 % Normal 2-9 [facility] Comment on above: Performed By: #### C SHARITA ZCBCGR ####MAIN LABCLIA:[id number] [facility] [address] Neutrophils 42713 /cmm High 1143-5058 [facility] Comment on above: Performed By: #### C SHARITA, ZCBCGR ####MAIN LABCLIA:[id number] [place] [address] Neutrophils band/100 leukocytes 3 % Normal <6 [facility] Comment on above: Performed By: #### C SHARITA, ZCBCGR ####MAIN LABCLIA:[id number] [place] [address] Neutrophils/100 WBC Auto (Bld) 79 % High 50-70 [facility] Comment on above: Performed By: #### C SHARITA, ZCBCGR ####MAIN LABCLIA:[id number] [place] [address] TOTAL CELLS COUNTED 100 Normal [facility] Comment on above: Performed By: #### C SHARITA, ZCBCGR ####MAIN LABCLIA:[id number] [place] [address] Hematocrit (HCT) 36.0 % Low 38.0-47.0 [facility] Comment on above: Performed By: #### C SHARITA ZCBCGR ####MAIN LABCLIA:[id number] [place] [address] Hemoglobin mass conc (Bld) 12.2 g/dL Normal 12.0-16.4 [facility] Comment on above: Performed By: #### C SHARITA, ZCBCGR ####MAIN LABCLIA:[id number] [place] [address] MCH 28.6 pg Normal 27.0-31.0 [facility] Comment on above: Performed By: #### C SHARITA ZCBCGR ####MAIN LABCLIA:[id number] [place] [address] MCV 84.1 fL Normal 80.0-96.0 [facility] Comment on above: Performed By: #### C SHARITA, ZCBCGR ####MAIN LABCLIA:[id number] [place] [address] WBC (Leukocytes) 13.8 10 3/cmm High 4.8-10.8 [facility] Comment on above: Performed By: #### C , ZCBCGR ####MAIN LABCLIA:[id number] [place] [address] CHEST 2 VIEWSon 01-05-2018 CHEST [address] [phone]____ Pt Location: 4W/ ADM IN Pt RM#: [id number] MR #: [id number] DATE: 01/05/18 123 ADM#: [id number] #: [id number] JANET TRINIDADOB: 1940 Age/Sex: 77 / F [...] JLECC: ROSY Salvador; Doctor,No; Donnell Barton MD [facility] COMPLETE BLOOD COUNTon 01-05 Erythrocyte distribution width Auto Ratio (RBC) 12.7 % Normal 11.5-14.5 [facility] Comment on above: Performed By: #### C BC, ZCBCGR ####MAIN LABCLIA:[id number] [facility] [place] [address] Erythrocytes (RBC) 4.28 10 6/cmm Normal 4.20-5.40 [facility] Comment on above: Performed By: #### C BC, ZCBCGR ####MAIN LABCLIA:[id number] [facility] [address] MCH 34.0 g/dL Normal 32.0-36.0 [facility] Comment on above: Performed By: #### C BC, ZCBCGR ####MAIN LABCLIA:[id number] [place] [address] Platelets 423 10 3/cmm High 130-400 [facility] Comment on above: Performed By: #### C BC, ZCBCGR ####MAIN LABCLIA:[id number] [facility] [address] COMPREHENSIVE METABOLIC PANE Umberto 01-05-2018 Alanine aminotransferase (ALT) 15 U/L Normal 0-33 [facility] Comment on above: Performed By: #### C MP MG ####MAIN LABCLIA:[id number] [place] [address] Albumin 3.3 g/dL Normal 3.0-4.5 [facility] Comment on above: Performed By: #### C MP, MG ####MAIN LABCLIA:[id number] [facility] [address] Albumin/Globulin Ratio 1.2 {ratio} Normal 1-1.4 [facility] Comment on above: Performed By: #### C MP, MG ####MAIN LABCLIA:[id number] [facility] [place] [address] Alkaline phosphatase (ALP) 76 U/L Normal 35-104 [facility] Comment on above: Performed By: #### C MP, MG ####MAIN LABCLIA:[id number] [facility] [address] Anion gap 15 mmol/L Normal 9-18 [facility] Comment on above: Performed By: #### C MP, MG ####MAIN LABCLIA:[id number] [facility] [place] [address] Aspartate aminotransferase (AST) 16 U/L Normal 0-32 [facility] Comment on above: Performed By: #### C MP, MG ####MAIN LABCLIA:[id number] [facility] [address] Bilirubin (total) 0.4 mg/dL Normal 0.2-1.2 [facility] Comment on above: Performed By: #### C MP, MG ####MAIN LABCLIA:[id number] [facility] [place] [address] BUN (urea nitrogen) 26 mg/dL High 8-23 [facility] Comment on above: Performed By: #### C MP, MG ####MAIN LABCLIA:[id number] [facility] [place] [address] BUN/Creatinine Ratio 22.2 mg/mg Normal [facility] Comment on above: Performed By: #### C MP, MG ####MAIN LABCLIA:[id number] [facility] [address] Calcium 8.5 mg/dL Low 8.8-10.2 [facility] Comment on above: Performed By: #### C MP, MG ####MAIN LABCLIA:[id number] [facility] [address] Chloride 90 mmol/L Low 98-107 [facility] Comment on above: Performed By: #### C MP, MG ####MAIN LABCLIA:[id number] [facility] [address] CO2 26 mmol/L Normal 22-29 [facility] Comment on above: Performed By: #### C MP, MG ####MAIN LABCLIA:[id number] [facility] [address] Creatinine 1.17 mg/dL High 0.50-0.90 [facility] Comment on above: Performed By: #### C MP, MG ####MAIN LABCLIA:[id number] [facility] [address] eGFR (MDRD) 47 /1.73 m2 Low >60 mL/min [facility] Comment on above: Result Comment: Norm al RangeStage Description:1 Normal or Increased GFR >=902 Mild Decrease in GFR 60-903 Moderately Decreased GFR 30-594 Severely Decreased GFR 15-295 Kidney Failure <15 Performed By: #### C MP, MG ####MAIN LABCLIA:[id number] [facility] [address] Globulin 2.7 g/dL Normal 2.3-3.5 [facility] Comment on above: Performed By: #### C MP, MG ####MAIN LABCLIA:[id number] [place] [address] Glucose mass conc 136 mg/dL High 74-109 [facility] Comment on above: Performed By: #### C MP, MG ####MAIN LABCLIA:[id number] [place] [address] Potassium molar conc 4.5 mmol/L Normal 3.5-5.1 [facility] Comment on above: Performed By: #### C MP, MG ####MAIN LABCLIA:[id number] [place] [address] Protein 6.0 g/dL Low 6.4-8.3 [facility] Comment on above: Performed By: #### C MP, MG ####MAIN LABCLIA:[id number] [place] [address] Sodium 126 mmol/L Low 136-145 [facility] Comment on above: Performed By: #### C MP, MG ####MAIN LABCLIA:[id number] [place] [address] CT HEAD WO 01-05-2018 CT HEAD WO [address] [phone]____ Pt Location: 4W/ ADM IN Pt RM#: [id number] MR #: [id number] DATE: 01/05/18 1236 ADM#: [id number] #: [id number] JANET TRINIDADOB: 1940 Age/Sex: 77 / F [...] matter.REPORT# [id number] READ BY: Cielo Pacheco M.D. [id number] REPORT RELEASED BY: Cielo Pacheco M.D. 01/05/18 1502Transcribed Date/Time: 01/05/18 1339 PLPCC: ROSY Salvador; Doctor,No; Donnell Barton MD [facility] Emergency Room Visit Reporto n 01-05-2018 Emergency Room Visit Report [address] [place] [id number] TANGELA TRINIDAD 1940 (77 F) [id number] Helio Hoang 4W Report #: [id number] PCP: No Doctor Emergency Room Visit Report [...] reports feeling dizziness and near syncope at [facility]. Pt reports recent bronchitis that [...] Allergy Mild Rash Verified 01/05/18 12:40 Antibiotics) Wwzocwf-Yla-Rhd Reductase Allergy Unknown Verified 01/05/18 12:40 Inhibitor [...] PO BID 01/05/18 01/05/18 raNITIdine HCl [Acid Stereo Equipment Salesperson] 150 mg PO BID 01/05/18 01/05/18 ROS [...] % (Manual) (<4) % Neutrophils # (Manual) ([id number]) /cmm Band Neutrophils # (<648) /cmm Lymphocytes [...] Appearance Clear Urine pH 7.0 Ur Specific [place] <=1.005 Urine Protein Negative (NEGATIVE) Urine Glucose [...] (Manual) 4 (<4) % Neutrophils # (Manual) 56513 H (2379-6078) /cmm Band Neutrophils # 414 (<648) /cmm [...] Color Urine Appearance Urine pH Ur Specific [place] Urine Protein (NEGATIVE) Urine Glucose (UA) (NEGATIVE) [...] an inhaler. This was obtained by the [facility] in [facility]. 01/05/18 14:40 I discussed this patient with [...] Sohan Grover MD Cosigned Date/Time: 01/05/18 190 [facility] History & Physicalon 018 History & Physical [address] [id number] TANGELA TRINIDAD [id number] Donnell Barton MD 4W / 4106-B 1940 Report #: [id number] Admission Date: 01/05/18 History Physical Date/Time: 01/05/18 [...] episode. Patient is visiting this area from [place] [...] Evaluation emergency room consisted of a cardiac cath lab technologist which shows normal sinus rhythm, EKG shows [...] Allergy Mild Rash Verified 01/05/18 12:40 Antibiotics) Hadxcyx-Eiv-Jpa Reductase Allergy Unknown Verified 01/05/18 12:40 Inhibitor [...] PO BID 01/05/18 01/05/18 raNITIdine HCl [Acid Stereo Equipment Salesperson] 150 mg PO BID 01/05/18 01/05/18 Allergies [...] Date/Time: Normal [facility] MAGNESIUMon 01-05-2018 Magnesium 2.1 mg/dL Normal 1.6-2.6 [facility] Comment on above: Performed By: #### C MP, MG ####MAIN LABCLIA:[id number] [facility] [address] SODIUM,URINE RANDOMon 2017 SODIUM,URINE RANDOM 35 mmol/L Normal [facility] Comment on above: Order Comment: COLLE CTED BY: Sherine Tenorio Result Comment: The reference range has not been established for this test. Performed By: #### C BC, ZCBCGR ####MAIN LABCLIA:[id number] [place] [address] THYROID STIMULATING HORMONEo n 01-05-2018 Thyroid stimulating hormone (TSH) 0.16 uIU/mL Low 0.27-4.20 [facility] Comment on above: Performed By: #### C BC, ZCBCGR ####MAIN LABCLIA:[id number] [place] [address] TROPONIN Ton 01-05-2018 Troponin T.cardiac mass conc ug/L Normal <0.010 [facility] Comment on above: Result Comment: Valu es [...] Performed By: #### C BC, ZCBCGR ####MAIN LABCLIA:[id number] [place] [address] Troponin T.cardiac mass conc ug/L Normal <0.010 [facility] Comment on above: Result Comment: Valu es [...] hours. Performed By: #### T ROPT ####MAIN LABCLIA:[id number] [facility] [place] [address] URINALYSISon 01-05-2018 UA APPEARANCE CLEAR Normal [facility] Comment on above: Order Comment: COLLE CTED BY: Tye acostaOID-MIDSTREAM Performed By: #### U A ####MAIN LABCLIA:[id number] [facility] [place] [address] UA BACTERIA NONE Normal NONE [facility] Comment on above: Order Comment: COLLE CTED BY: Tye acostaOID-MIDSTREAM Performed By: #### U A ####MAIN LABCLIA:[id number] [facility] [place] [address] UA SQUAMOUS EPITHELIAL 0-2 Normal [facility] Comment on above: Order Comment: COLLE CTED BY: Tye acostaOID-MIDSTREAM Performed By: #### U A ####MAIN LABCLIA:[id number] [facility] [address] UA WBC 0-2 Normal 0-2 [facility] Comment on above: Order Comment: COLLE CTED BY: Tye acostaOID-MIDSTREAM Performed By: #### U A ####MAIN LABCLIA:[id number] [facility] [address] Urine, color YELLOW Normal [facility] Comment on above: Order Comment: COLLE CTED BY: Tye acostaOID-MIDSTREAM Performed By: #### U A ####MAIN LABCLIA:[id number] [facility] [place] [address] Urine, erythrocytes 0-2 Normal 0-2 [facility] Comment on above: Order Comment: COLLE CTED BY: davedVOID-MIDSTREAM Performed By: #### U A ####MAIN LABCLIA:[id number] [place] [address] UA BILIRUBIN Negative Normal NEGATIVE [facility] Comment on above: Order Comment: COLLE CTED BY: Tye acostaOID-MIDSTREAM Performed By: #### U A ####MAIN LABCLIA:[id number] [place] [address] UA BLOOD Negative Normal NEGATIVE [facility] Comment on above: Order Comment: COLLE CTED BY: Tye acostaOID-MIDSTREAM Performed By: #### U A ####MAIN LABCLIA:[id number] [place] [address] UA LEUKOCYTE ESTERASE TRACE Normal NEGATIVE [facility] Comment on above: Order Comment: COLLE CTED BY: Tye acostaOID-MIDSTREAM Performed By: #### U A ####MAIN LABCLIA:[id number] [place] [address] UA NITRITES Negative Normal NEGATIVE [facility] Comment on above: Order Comment: COLLE CTED BY: Tye acostaOID-MIDSTREAM Performed By: #### U A ####MAIN LABCLIA:[id number] [place] [address] UA PH 7.0 Normal [facility] Comment on above: Order Comment: COLLE CTED BY: Tye acostaOID-MIDSTREAM Performed By: #### U A ####MAIN LABCLIA:[id number] [place] [address] UA PROTEIN Negative Normal NEGATIVE [facility] Comment on above: Order Comment: COLLE CTED BY: Tye acostaOID-MIDSTREAM Performed By: #### U A ####MAIN LABCLIA:[id number] [place] [address] UA SPECIFIC GRAVITY <=1.005 Normal [facility] Comment on above: Order Comment: COLLE CTED BY: Tye acostaOID-MIDSTREAM Performed By: #### U A ####MAIN LABCLIA:[id number] [facility] [place] [address] UA UROBILINOGEN 0.2 mg/dL Normal 0.0-1.0 [facility] Comment on above: Order Comment: COLLE CTED BY: davedVOID-MIDSTREAM Performed By: #### U A ####MAIN LABCLIA:[id number] [facility] [place] [address] Urine, glucose Negative Normal NEGATIVE [facility] Comment on above: Order Comment: COLLE CTED BY: davedVOID-MIDSTREAM Performed By: #### U A ####MAIN LABCLIA:[id number] [facility] [address] Urine, ketones presence Negative Normal NEGATIVE [facility] Comment on above: Order Comment: COLLE CTED BY: davedVOID-MIDSTREAM Performed By: #### U A ####MAIN LABCLIA:[id number] [facility] [address] URINE SOURCE VOID-MIDSTREAM Normal [facility] Comment on above: Order Comment: COLLE CTED BY: davedVOID-MIDSTREAM Performed By: #### U A ####MAIN LABCLIA:[id number] [place] [address] VASCULAR RISK PANELon 2017 Cholesterol 180 mg/dL Normal 0-199 [facility] Comment on above: Order Comment: Comme nts: Use blood from ED if available Performed By: #### Yaquelin RUFFCBCGR ####MAIN LABCLIA:[id number] [place] [address] HDL Cholesterol 42 mg/dL Low >65 [facility] Comment on above: Order Comment: Comme nts: Use blood from ED if available Performed By: #### Yaquelin RUFFCBCGR ####MAIN LABCLIA:[id number] [place] [address] LDL Cholesterol 98 mg/dL Normal <129 [facility] Comment on above: Order Comment: Comme nts: Use blood from ED if available Performed By: #### C BC, ZCBCGR ####MAIN LABCLIA:[id number] [place] [address] Triglyceride 202 mg/dL High 0-199 [facility] Comment on above: Order Comment: Comme nts: Use blood from ED if available Performed By: #### C BC, ZCBCGR ####MAIN LABCLIA:[id number] [place] [address] VLDL CHOLESTEROL 40 mg/dL Normal 5-40 [facility] Comment on above: Order Comment: Comme nts: Use blood from ED if available Performed By: #### C BC, ZCBCGR ####MAIN LABCLIA:[id number] [place] [address] Vital Signs Date Time Vital Sign Value Performing Clinician Facility 01-02-2024 11:39-0400 Body height 152.4 cm DO Kvng Ball Work Phone: [facility] 01-02-2024 11:39-0400 Body mass index (BMI) [Ratio] 26.6 kg/m2 DO Kvng Ball Work Phone: [facility] 01-02-2024 11:39-0400 Body weight 61.91 kg DO Kvng Ball Work Phone: [facility] 01-02-2024 11:39-0400 Diastolic blood pressure 85 mm[Hg] DO Kvng Ball Work Phone: [facility] 01-02-2024 11:39-0400 Heart rate 66 /min DO Kvng Ball Work Phone: [facility] 01-02-2024 11:39-0400 Respiratory rate 12 /min DO Kvng Ball Work Phone: [facility] 01-02-2024 11:39-0400 Systolic blood pressure 124 mm[Hg] DO Kvng Ball Work Phone: [facility] 05-27-2023 11:00-0500 Body height 152.4 cm Kvng Ball Other [facility] Other 05-27-2023 11:00-0500 Diastolic blood pressure 84 mm[Hg] Kvng Ball Other [facility] Other 05-27-2023 11:00-0500 Systolic blood pressure 124 mm[Hg] Kvng Ball Other [facility] Other 03-04-2023 13:45-0400 Body height 152.4 cm Kvng Ball Other [facility] Other 03-04-2023 13:45-0400 Body mass index (BMI) [Ratio] 28.47 kg/m2 Kvng Ball Other [facility] Other 03-04-2023 13:45-0400 Body weight 66.13 kg Kvng Ball Other [facility] Other 03-04-2023 13:45-0400 Diastolic blood pressure 80 mm[Hg] Kvng Ball Other [facility] Other 03-04-2023 13:45-0400 Respiratory rate 12 /min Kvng Ball Other [facility] Other 03-04-2023 13:45-0400 Systolic blood pressure 117 mm[Hg] Kvng Ball Other [facility] Other 02-22-2023 11:00-0400 Body height 152.4 cm Kvng Ball Other [facility] Other 02-22-2023 11:00-0400 Body mass index (BMI) [Ratio] 28.39 kg/m2 Kvng Ball Other [facility] Other 02-22-2023 11:00-0400 Body weight 65.95 kg Kvng Ball Other [facility] Other 02-22-2023 11:00-0400 Diastolic blood pressure 83 mm[Hg] Kvng Ball Other [facility] [employer] Other 02-22-2023 11:00-0400 Respiratory rate 12 /min Kvng Ball Other [facility] [employer] Other 02-22-2023 11:00-0400 Systolic blood pressure 132 mm[Hg] Kvng Ball Other [facility] [employer] Other 01-24-2023 09:18-0400 Diastolic blood pressure 72 mm[Hg] DO Kvng Ball Work Phone: [facility] 01-24-2023 09:18-0400 Heart rate 56 /min DO Kvng Ball Work Phone: [facility] 01-24-2023 09:18-0400 Respiratory rate 14 /min DO Kvng Ball Work Phone: [facility] 01-24-2023 09:18-0400 SaO2% (BldA) [Mass fraction] 98 % DO Kvng Ball Work Phone: [facility] 01-24-2023 09:18-0400 Systolic blood pressure 126 mm[Hg] DO Kvng Ball Work Phone: [facility] 01-24-2023 07:44-0400 Body height 154.94 cm DO Kvng Ball Work Phone: [facility] 01-24-2023 07:44-0400 Body temperature 97.8 [degF] DO Kvng Ball Work Phone: [facility] 01-24-2023 07:44-0400 Body weight 65.31 kg DO Kvng Ball Work Phone: [facility] 11-18-2022 12:00-0400 Body height 152.4 cm Kvng Ball Other [facility] [employer] Other 11-18-2022 12:00-0400 Body mass index (BMI) [Ratio] 28.74 kg/m2 Kvng Ball Other [place] [employer] Other 11-18-2022 12:00-0400 Body weight 66.77 kg Kvng Ball Other [place] [employer] Other 11-18-2022 12:00-0400 Diastolic blood pressure 82 mm[Hg] Kvng Ball Other [place] [employer] Other 11-18-2022 12:00-0400 Respiratory rate 12 /min Kvng Ball Other [facility] [employer] Other 11-18-2022 12:00-0400 Systolic blood pressure 125 mm[Hg] Kvng Ball Other [place] [employer] Other 10-28-2022 14:05-0400 Diastolic blood pressure 73 mm[Hg] DO Kvng Ball Work Phone: [facility] 10-28-2022 14:05-0400 Heart rate 60 /min DO Kvng Ball Work Phone: [facility] 10-28-2022 14:05-0400 Respiratory rate 18 /min DO Kvng Ball Work Phone: [facility] 10-28-2022 14:05-0400 SaO2% (BldA) [Mass fraction] 96 % DO Kvng Ball Work Phone: [facility] 10-28-2022 14:05-0400 Systolic blood pressure 117 mm[Hg] DO Kvng Ball Work Phone: [facility] 10-28-2022 11:42-0400 Body height 154.94 cm DO Kvng Ball Work Phone: [facility] 10-28-2022 11:42-0400 Body temperature 97.9 [degF] DO Kvng Ball Work Phone: [facility] 10-28-2022 11:42-0400 Body weight 65.77 kg DO Kvng Ball Work Phone: [facility] [facility] 10-12-2022 15:00-0400 Body height 152.4 cm Kvng Ball Other [facility] Other 10-12-2022 15:00-0400 Body mass index (BMI) [Ratio] 28.78 kg/m2 Kvng Ball Other [facility] Other 10-12-2022 15:00-0400 Body weight 66.86 kg Kvng Ball Other [facility] Other 10-12-2022 15:00-0400 Diastolic blood pressure 80 mm[Hg] Kvgn Ball Other [facility] Other 10-12-2022 15:00-0400 Respiratory rate 12 /min Kvng Ball Other [facility] Other 10-12-2022 15:00-0400 Systolic blood pressure 116 mm[Hg] Kvng Ball Other [facility] Other 07-27-2022 14:38-0500 Body height 152.4 cm Mavis Santiago MD Work Phone: [facility] 07-27-2022 14:38-0500 Body temperature 98.1 [degF] Mavis Santiago MD Work Phone: [facility] 07-27-2022 14:38-0500 Body weight 66.5 kg Mavis Santiago MD Work Phone: [facility] 07-27-2022 14:38-0500 Diastolic blood pressure 72 mm[Hg] Mavis Santiago MD Work Phone: [facility] 07-27-2022 14:38-0500 Heart rate 64 /min Mavis Santiago MD Work Phone: [facility] 07-27-2022 14:38-0500 Respiratory rate 16 /min Mavis Santiago MD Work Phone: [facility] 07-27-2022 14:38-0500 SaO2% (BldA) [Mass fraction] 97 % Mavis Santiago MD Work Phone: [facility] 07-27-2022 14:38-0500 Systolic blood pressure 125 mm[Hg] Mavis Santiago MD Work Phone: [facility] 07-26-2022 09:19-0500 Diastolic blood pressure 69 mm[Hg] DO Kvng Ball Work Phone: [facility] 07-26-2022 09:19-0500 Heart rate 59 /min DO Kvng Ball Work Phone: [facility] 07-26-2022 09:19-0500 Respiratory rate 16 /min DO Kvng Ball Work Phone: [facility] 07-26-2022 09:19-0500 SaO2% (BldA) [Mass fraction] 98 % DO Kvng Ball Work Phone: [facility] 07-26-2022 09:19-0500 Systolic blood pressure 111 mm[Hg] DO Kvng Ball Work Phone: [facility] 07-26-2022 07:19-0500 Body height 154.94 cm DO Kvng Ball Work Phone: [facility] 07-26-2022 07:19-0500 Body temperature 97.7 [degF] DO Kvng Ball Work Phone: [facility] 07-26-2022 07:19-0500 Body weight 66.22 kg DO Kvng Ball Work Phone: [facility] 07-21-2022 14:30-0500 Body height 152.4 cm Kvng Ball Other [facility] Other 01-11-2023 14:30-0500 Body mass index (BMI) [Ratio] 28.82 kg/m2 Kvng Ball Other [facility] Other 07-21-2022 14:30-0500 Body weight 66.95 kg Kvng Ball Other [facility] Other 07-21-2022 14:30-0500 Diastolic blood pressure 70 mm[Hg] Kvng Ball Other [facility] Other 07-21-2022 14:30-0500 Respiratory rate 12 /min Kvng Ball Other [facility] Other 07-21-2022 14:30-0500 Systolic blood pressure 118 mm[Hg] Kvng mymission2 Other [facility] Other 05-25-2022 13:02-0500 Body temperature 96.91 [degF] Chair Jasper Work Phone: [facility] 05-25-2022 13:02-0500 Diastolic blood pressure 88 mm[Hg] Chair Jasper Work Phone: [facility] 05-25-2022 13:02-0500 Heart rate 68 /min Chair Ryan Work Phone: [facility] 05-25-2022 13:02-0500 Respiratory rate 18 /min Chair Jasper Work Phone: [facility] 05-25-2022 13:02-0500 SaO2% (BldA) [Mass fraction] 100 % Chair Ryan Work Phone: [facility] 05-25-2022 13:02-0500 Systolic blood pressure 146 mm[Hg] Chair Ryan Work Phone: [facility] 05-18-2022 15:42-0500 Body temperature 98.1 [degF] Mavis Santiago MD Work Phone: [facility] 05-18-2022 15:42-0500 Body weight 68.04 kg Mavis Santiago MD Work Phone: [facility] 05-18-2022 15:42-0500 Diastolic blood pressure 78 mm[Hg] Mavis Santiago MD Work Phone: [facility] 05-18-2022 15:42-0500 Heart rate 78 /min Mavis Santiago MD Work Phone: [facility] 05-18-2022 15:42-0500 Respiratory rate 16 /min Mavis Santiago MD Work Phone: [facility] 05-18-2022 15:42-0500 SaO2% (BldA) [Mass fraction] 98 % Mavis Santiago MD Work Phone: [facility] 05-18-2022 15:42-0500 Systolic blood pressure 122 mm[Hg] Mavis Santiago MD Work Phone: [facility] Encounters Encounter Date Encounter Type Care [...] encounter procedure DO Kvng Melgar Work Phone: [facility] [place] Work Phone: Start: 03-16-2024 End: 03-16-2024 ambulatory DO Kvng Melgar Work Phone: [facility] Work Phone: Start: 03-01-2024 End: 03-01-2024 ambulatory LORELEI HURTADO Not Available Start: 01-31-2024 End: 01-31-2024 ambulatory LORELEI HURTADO Not Available Start: 01-25-2024 End: 01-25-2024 ambulatory TED GILMORE Not Available Start: 01-02-2024 End: 01-02-2024 Patient encounter procedure DO Kvng Melgar Work Phone: [facility] Work Phone: Start: 09-15-2023 End: 09-15-2023 ambulatory Imad Asaad Other [facility] Other Start: 09-15-2023 Telephone encounter Imad Asaad [facility] Start: 08-10-2023 End: 08-10-2023 ambulatory Imad Asaad Other [facility] Other Start: 08-10-2023 Office outpatient vi sit 25 minutes Imad Asaad [facility] Start: 08-01-2023 End: 08-01-2023 ambulatory Kvng Melgar Other [facility] Other Start: 08-01-2023 Telephone encounter Kvng Melgar [facility] Start: 07-25-2023 End: 07-25-2023 Patient encounter procedure DO Kvng Melgar Work Phone: [facility] Work Phone: Start: 07-25-2023 End: 07-25-2023 ambulatory DO Kvng Melgar Work Phone: [facility] Work Phone: Start: 07-06-2023 End: 07-06-2023 ambulatory Imad Asaad Other [facility] Other Start: 07-06-2023 Telephone encounter Imad Asaad [facility] Start: 06-20-2023 End: 06-20-2023 ambulatory Kvng Ball Other [facility] Other Start: 06-20-2023 Telephone encounter Kvng Ball [facility] Start: 06-15-2023 End: 06-15-2023 ambulatory Kvng Ball Other [facility] Other Start: 06-15-2023 Telephone encounter Kvng Ball [facility] Start: 06-08-2023 End: 06-08-2023 ambulatory Kvng Ball Other [facility] Other Start: 06-08-2023 Telephone encounter Kvng Ball [facility] Start: 05-31-2023 End: 05-31-2023 ambulatory Kvng Ball Other [facility] Other Start: 05-31-2023 Telephone encounter Kvng Ball [facility] Start: 05-29-2023 End: 05-29-2023 ambulatory Kvng Ball Other [facility] Other Start: 05-29-2023 Telephone encounter Kvng Ball [facility] Start: 05-28-2023 End: 05-28-2023 ambulatory Kvng Ball Other [facility] Other Start: 05-28-2023 Telephone encounter Kvng Ball [facility] Start: 05-27-2023 End: 05-27-2023 ambulatory Kvng Ball Other [facility] Other Start: 05-27-2023 Office outpatient vi sit 25 minutes Kvng Ball [facility] Start: 05-25-2023 End: 05-25-2023 ambulatory Kvng Ball Other [facility] Other Start: 05-25-2023 Telephone encounter Kvng Ball [facility] Start: 05-20-2023 End: 05-20-2023 ambulatory Kvng Ball Other [facility] Other Start: 05-20-2023 Telephone encounter Kvng Melgar [facility] Start: 05-10-2023 End: 05-10-2023 ambulatory Imad Asaad Other [facility] Other Start: 05-10-2023 Telephone encounter Imad Asaad [facility] Start: 04-26-2023 End: 04-26-2023 ambulatory Kvng Melgar Other [facility] Other Start: 04-26-2023 Nursing evaluation o f patient and report Kvng Melgar [facility] Start: 03-23-2023 End: 03-23-2023 ambulatory Imad Asaad Other [facility] Other Start: 03-23-2023 Telephone encounter Imad Asaad [facility] Start: 03-10-2023 End: 03-10-2023 ambulatory Kvng Melgar Other [facility] Other Start: 03-10-2023 Telephone encounter Kvng Melgar [facility] Start: 03-07-2023 End: 03-07-2023 ambulatory Kvng Melgar Other [facility] Other Start: 03-07-2023 Telephone encounter Kvng Melgar [facility] Start: 03-04-2023 End: 03-04-2023 ambulatory Kvng Melgar Other [facility] Other Start: 03-04-2023 Office outpatient vi sit 15 minutes Kvng Ermelinda [facility] Start: 02-28-2023 End: 02-28-2023 ambulatory Kvng Melgar Other [facility] Other Start: 02-28-2023 Telephone encounter Kvng Melgar [facility] Start: 02-22-2023 End: 02-22-2023 ambulatory Kvng Ermelinda Other [facility] Other Start: 02-22-2023 Office outpatient vi sit 25 minutes Kvng Melgar [facility] Start: 02-21-2023 End: 02-21-2023 ambulatory Kvng Melgar Other [facility] Other Start: 02-21-2023 Telephone encounter Kvng Melgar [facility] Start: 01-24-2023 End: 01-24-2023 ambulatory Sadiq Beckham Other [facility] Other Start: 01-24-2023 Telephone encounter Sadiq Pollard [facility] Start: 01-24-2023 End: 01-24-2023 Admission to same day surgery center DO Conjur Work Phone: [facility] Work Phone: Start: 12-28-2022 End: 12-28-2022 ambulatory Kvng Melgar Other [facility] Other Start: 12-28-2022 Telephone encounter Kvng Melgar [facility] Start: 11-19-2022 End: 11-19-2022 ambulatory Kvng Melgar Other [facility] Other Start: 11-19-2022 Telephone encounter Kvng Melgar [facility] Start: 11-18-2022 End: 11-18-2022 ambulatory Kvng Melgar Other [facility] Other Start: 11-18-2022 Patient encounter procedure Kvng Melgar [facility] Start: 11-01-2022 End: 11-01-2022 ambulatory Imad Asaad Other [facility] Other Start: 11-01-2022 Telephone encounter Imad Asaad [facility] Start: 10-28-2022 Telephone encounter Sadiq Pollard [facility] Start: 10-28-2022 End: 10-28-2022 Admission to same day surgery center DO Kvng Ermelinda Work Phone: [facility] Work Phone: Start: 10-28-2022 End: 10-28-2022 ambulatory DO Kvng Melgar Work Phone: [facility] Work Phone: Start: 10-21-2022 End: 10-21-2022 ambulatory Knvg Melgar Other [facility] Other Start: 10-21-2022 Telephone encounter Kvng Armstrong [facility] Start: 10-20-2022 End: 10-21-[address] KVNG MELGAR Facility:[facility] Start: 10-12-2022 End: 10-12-2022 ambulatory Kvng Melgar Other [facility] Other Start: 10-12-2022 Office outpatient vi sit 15 minutes Kvng Melgar [facility] Start: 10-12-2022 Telephone encounter Kvng Armstrong [facility] Start: 09-27-2022 End: 10-13-[address] KVNG MELGAR Facility: Start: 07-29-2022 End: 07-29-2022 ambulatory Kvng Melgar Other [facility] Other Start: 07-29-2022 Telephone encounter Kvng Armstrong [facility] Start: 07-27-2022 End: 07-27-2022 ambulatory KVNG MELGAR Facility:[facility] Start: 07-27-2022 End: 07-27-2022 Office outpatient visit 15 minutes Mavis Santiago MD Work Phone: Hematology/Oncology Comment on above: Iron deficiency (Danielle bethany Dx) Start: 07-26-2022 Telephone encounter Jeyson Diaz [facility] Start: 07-26-2022 End: 07-26-2022 Admission to same day surgery center DO Kvng Melgar Work Phone: [facility] Work Phone: Start: 07-26-2022 End: 07-26-2022 ambulatory DO Kvng Melgar Work Phone: [facility] Work Phone: Start: 07-22-2022 End: 07-22-2022 Patient encounter procedure DO Kvng Melgar Work Phone: [facility] Work Phone: Start: 07-21-2022 End: 07-21-2022 ambulatory Kvng Melgar Other [facility] Other Start: 07-21-2022 Office outpatient vi sit 25 minutes Kvng ROSARIO [facility] Start: 06-02-2022 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 Start: 05-25-2022 Telephone encounter Financial [...] Dx) Start: 05-18-2022 Telephone encounter Adebayo [facility] Start: 05-17-2022 Chart abstracting Mavis abraham MD [...] 06-09-2021 Adult health examination Kvng Melgar Other [facility] Other Start: 08-02-2019 Preoperative cardiovascular examination Kvng Melgar Other [facility] Other Start: 05-31-2019 Gynecological examination normal Kvng Melgar Other [facility] Other Start: 01-05-2018 End: 01-06-2018 Evaluation and management of inpatient No Doctor Facility:[facility] Procedures Date Procedure Procedure Detail Performing Clinician [...] Iron deficiency Expected: 01/24/2023 (Approximate), Expires: 03/26/2023 [facility] Work Phone: Comment on above: Expected: 01/24/2023 (Approximate), Expires: 03/26/2023 Start: 01-24-2023 End: 07-27-2023 Ferritin [Mass/volume] in Serum or Plasma FERRITIN BLD Lab Routine Iron deficiency Expected: 01/24/2023 (Approximate), Expires: 07/27/2023 [facility] Work Phone: Comment on above: Expected: 01/24/2023 (Approximate), Expires: 07/27/2023 Start: 01-24-2023 End: 07-27-2023 Iron and Iron binding capacity panel - Serum or Plasma IRON + TIBC Lab Routine Iron deficiency Expected: 01/24/2023 (Approximate), Expires: 07/27/2023 [facility] Work Phone: Comment on above: Expected: 01/24/2023 (Approximate), Expires: 07/27/2023 Start: 01-24-2023 [facility] Start: 10-28-2022 [facility] Start: 07-27-2022 End: 09-26-2022 CBC W Auto Differential panel - Blood CBC + DIFF Lab Routine Iron deficiency Expected: 07/27/2022 (Approximate), Expires: 09/26/2022 [facility] Work Phone: Comment on above: Expected: 07/27/2022 (Approximate), Expires: 09/26/2022 Start: 07-27-2022 End: 05-18-2023 Ferritin [Mass/volume] in Serum or Plasma FERRITIN BLD Lab Routine Iron deficiency Expected: 07/27/2022 (Approximate), Expires: 05/18/2023 [facility] Work Phone: Comment on above: Expected: 07/27/2022 (Approximate), Expires: 05/18/2023 Start: 07-27-2022 End: 05-18-2023 Iron and Iron binding capacity panel - Serum or Plasma IRON + TIBC Lab Routine Iron deficiency Expected: 07/27/2022 (Approximate), Expires: 05/18/2023 [facility] Work Phone: Comment on above: Expected: 07/27/2022 (Approximate), Expires: 05/18/2023 Start: 07-27-2022 End: 09-26-2022 RETIC COUNT RETIC COUNT Lab Routine Iron deficiency Expected: 07/27/2022 (Approximate), Expires: 09/26/2022 [facility] Work Phone: Comment on above: Expected: 07/27/2022 (Approximate), Expires: 09/26/2022 Start: 07-26-2022 [facility] Start: 07-11-2022 ADVANCE DIRECTIVE DISCUSSION ADVANCE DIRECTIVE DISCUSSION [facility] Start: 07-11-2022 DEPRESSION ASSESSMENT [facility] Start: 03-11-2022 Influenza vaccination INFLUENZA (#1) [facility] Start: 01-30-2022 COVID-19 VACCINE (5 - Booster for Pfizer series) COVID-19 VACCINE (5 - Booster for Pfizer series) [facility] Start: 07-11-2021 ADVANCE DIRECTIVE DISCUSSION ADVANCE DIRECTIVE DISCUSSION [facility] Start: 07-11-2021 DEPRESSION ASSESSMENT [facility]ION [facility] Start: 03-29-2019 PNEUMOCOCCAL: 65+ (2 - PCV) PNEUMOCOCCAL: 65+ (2 - PCV) [facility] Start: 11-15-2017 DIABETES SCREEN DIABETES SCREEN [facility] Start: 04-23-2016 PNEUMOCOCCAL: 65+ (2 - PCV) PNEUMOCOCCAL: 65+ (2 - PCV) [facility] Start: 2003 BONE DENSITY BONE DENSITY [facility] Start: 01-22-1988 SHINGRIX VACCINE (1 of 2) SHINGRIX VACCINE (1 of 2) [facility] Start: 1957 Urine microalbumin profile DTAP,TDAP,TD (1 - Tdap) [facility] Start: 1938 COVID-19 VACCINE (#1) COVID-19 VACCI NE (#1) [facility] Patient Education [facility] Work Phone: XR Knee - right [address] [facility] Immunizations Immunization Date Immunization Notes Care Provider Saurabh rico 04-26-2023 influenza, high dose seasonal, preservative-free Kvng Melgar Other [facility] Other 04-26-2023 influenza virus vaccine, unspecified formulation DO Kvng Melgar Work Phone: [facility] 10-19-2022 COVID-19 Pfizer (bivalent) Kvng Melgar Other [facility] 12-05-2021 COVID-19 Pfizer Kvng mac Other [facility] 12-05-2021 COVID-19 Vaccine Pfi zer - Documentation Purposes Only Kvng Melgar Other [facility] 04-14-2021 COVID-19 Vaccine Pfi zer - Documentation Purposes Only Kvng Melgar Other [facility] 04-06-2021 influenza virus vaccine, split virus (incl. purified surface antigen) Kvng Melgar Other [facility] [employer] [facility] Other 04-06-2021 influenza virus vaccine, unspecified formulation DO Kvng Melgar Work Phone: [facility] 04-06-2021 influenza, high-dose , quadrivalent vaccine (FLUZONE HIGH DOSE QUADRIVALENT) Mavis Santiago MD Work Phone: [facility] 08-27-2020 COVID-19 Vaccine Pfi zer - Documentation Purposes Only Kvng Melgar Other [facility] 08-04-2020 COVID-19 Vaccine Pfi zer - Documentation Purposes Only Kvng Melgar Other [facility] 04-04-2020 influenza virus vaccine, split virus (incl. purified surface antigen) Kvng Melgar Other [facility] Other 04-04-2020 influenza virus vaccine, unspecified formulation DO Kvng Melgar Work Phone: [facility] 04-04-2020 influenza, high-dose , quadrivalent vaccine (FLUZONE HIGH DOSE QUADRIVALENT) Mavis Santiago MD Work Phone: [facility] 04-18-2019 influenza, injectabl e, quadrivalent, preservative free Mavis Santiago MD Work Phone: [facility] 03-22-2019 Seasonal trivalent influenza vaccine, adjuvanted, preservative free Mavis Santiago MD Work Phone: [facility] 04-13-2018 influenza virus vaccine, split virus (incl. purified surface antigen) Kvng Melgar Other [facility] [employer] Other 04-13-2018 influenza virus vaccine, unspecified formulation DO Kvng Melgar Work Phone: [facility] 04-13-2018 Seasonal trivalent influenza vaccine, adjuvanted, preservative free Mavis Santiago MD Work Phone: [facility] 03-29-2018 pneumococcal polysaccharide vaccine, 23 valent Mavis Santiago MD Work Phone: [facility] 05-25-2017 Seasonal trivalent influenza vaccine, adjuvanted, preservative free Mavis Santiago MD Work Phone: [facility] 04-27-2016 influenza virus vaccine, split virus (incl. purified surface antigen) Kvng Melgar Other [facility] [employer] Other 04-27-2016 influenza virus vaccine, unspecified formulation DO Kvng Melgar Work Phone: [facility] 04-27-2016 influenza, high dose seasonal, preservative-free Mavis Santiago MD Work Phone: [facility] 04-23-2015 influenza, injectabl e, quadrivalent, preservative free Mavis Santiago MD Work Phone: [facility] 04-23-2015 pneumococcal polysaccharide vaccine, 23 valent Mavis Santiago MD Work Phone: [facility] 04-18-2015 influenza virus vaccine, split virus (incl. purified surface antigen) Kvng Melgar Other [facility] Other 04-18-2015 influenza virus vaccine, unspecified formulation DO Kvng Melgar Work Phone: [facility] 04-18-2015 pneumococcal conjuga te vaccine, 13 valent Kvng Melgar Other [facility] 05-21-2014 influenza, injectabl e, quadrivalent, contains preservative Adebayo Pan Other [facility] 04-26-2014 tetanus and diphther ia toxoids, adsorbed, preservative free, for adult use (5 Lf of tetanus toxoid and 2 Lf of diphtheria toxoid) Kvng Ermelinda Other [facility] 05-09-2013 pneumococcal polysaccharide vaccine, 23 valent Kvng Melgar Other [facility] 05-09-2013 tetanus and diphther ia toxoids, adsorbed, preservative free, for adult use (5 Lf of tetanus toxoid and 2 Lf of diphtheria toxoid) Kvng Melgar Other [facility] Payers Date Payer Category Payer Self-pay [id number] 2014 Private Health Insurance [id number] 2003 Medicare [id number] 2003 Unknown 1959 Medicare [id number] 1959 Private Health Insurance [id number] 1938 Unknown [id number] 2.16.84 [id number] 1938 Unknown [id number] 2.16.84 0.1.616504.3.579.2.593 1938 Unknown [id number] 2.16.84 0.1.705953.3.579.2.593 1938 Unknown [id number] 2.16.84 0.1.687098.3.579.2.593 1938 Unknown [id number] 2.16.84 0.1.867332.3.579.2.593 1938 Unknown [id number] 2.16.84 0.1.601277.3.579.2.593 1938 Unknown [id number] 2.16.84 0.1.497530.3.579.2.593 1938 Unknown [id number] 2.16.84 0.1.012059.3.579.2.593 1938 Unknown [id number] 2.16.84 0.1.980343.3.579.2.593 1938 Unknown [id number] 2.16.84 0.1.916192.3.579.2.1259 1938 Unknown [id number] 2.16.84 0.1.167261.3.579.2.1259 1938 Unknown [id number] 2.16.84 0.1.095502.3.579.2.1259 1938 Unknown [id number] 2.16.84 0.1.195602.3.579.2.1259 1938 Unknown [id number] 2.16.84 0.1.660113.3.579.2.1259 1938 Unknown [id number] 2.16.84 0.1.532389.3.579.2.1259 1938 Unknown [id number] 2.16. [id number] 1938 Unknown [id number] 2.16. 840.1.166307.3.579.2.196 1938 Unknown [id number] 2.16. [id number] Medicare [id number] Unknown [id number] 2.16.8 [id number] Unknown [id number] 2.16.8 [id number] Social History Date Type Detail Facility Start: 01-03-2015 End: 05-27-2023 Tobacco smoking status NHIS Ex-smoker [facility] History of tobacco use Current smoker [facility] Start: 01-03-2015 Tobacco use and exposure Smokeless tobacco non-user [facility] Start: 05-17-2022 End: 07-27-2022 Alcohol intake Ex-drinker (finding) [facility] Start: 1940 Sex Assigned At Not on file [facility] Start: 05-08-2022 End: 05-25-2022 Exposure to SARS-CoV-2 (event) Not sure [facility] Start: 07-26-2022 End: 10-28-2022 Tobacco smoking status WAIS Never smoked tobacco (finding) [facility] Start: 1940 Sex Assigned At Female F [facility] Sex Assigned At Sex Assigned At Bir th [facility] Other Goals Date Patient Goal Desired Activity /State Clinical Notes 11-28-2019 to 08-10-2023 Note Date & Type Note Facility 08-10-2023 Evaluation note Encounter Date Diagnosis Assessment Notes Jul, Epigastric pain (ICD-10 - R10.13) Jul, Constipation (ICD-10 - K59.00) Oct, Nausea (ICD-10 - R11.0) Nausea [facility] Other 12-11-2023 Evaluation note* Encounter Date Diagnosis Assessment Notes Treatment Notes Treatment Clinical Notes Jun, Lumbar spondylosis (ICD-10 - M47.816) [facility] Other 11-21-2023 Evaluation note* Encounter Date Diagnosis Assessment Notes Treatment Notes Treatment Clinical Notes May, Claustrophobia (ICD-10 - F40.240) [facility] Other 11-17-2023 Evaluation note* Encounter Date Diagnosis [...] May, Other specified hypothyroidism (ICD-10 - E03.8) [facility] Other 11-10-2023 Evaluation note* Encounter Date Diagnosis Assessment Notes Treatment Notes Treatment Clinical Notes May, Lumbar spondylosis (ICD-10 - M47.816) [facility] Other 09-13-2023 Evaluation note* Encounter Date Diagnosis Assessment Notes Treatment Notes Treatment Clinical Notes Mar, Chronic superficial gastritis with bleeding (ICD-10 - K29.31) [facility] Other 08-25-2023 Evaluation note* Encounter Date Diagnosis Assessment Notes Treatment Notes Treatment Clinical Notes Feb, Allergic contact dermatitis due to plants, except food (ICD-10 - L23.7) Cool compresses, topical steroids and begin Prednisone. _update on Feb, Cellulitis of left upper extremity (ICD-10 - L03.114) Elevate and begin antibiotics, update on Tuesday [facility] Other 08-15-2023 Evaluation note* Encounter Date Diagnosis [...] exercise for 30 minutes, 3-5 times weekly. 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.3) [facility] Other 05-12-2023 Evaluation note* Encounter Date Diagnosis Assessment Notes Treatment Notes Treatment Clinical Notes November, Lumbar spondylosis (ICD-10 - M47.816) [facility] Other 05-11-2023 Evaluation note* Encounter Date Diagnosis [...] E03.8) November, Lumbar spondylosis (ICD-10 - M47.816) [facility] Other 04-20-2023 [facility] NotePROCEDURE: XR HIP LT 2 3V [...] Electronically authenticated by: ANTHONY GUIDRY Date: 2022-10-20 15:40[facility]04-04-2023 Evaluation note* Encounter Date Diagnosis Assessment [...] mammogram for breast cancer (ICD-10 - Z12.31) [facility] Other 01-17-2023 NoteHNO ID: [id number] Author: Mavis Santiago MD Service: ? Author Type: Physician Type: Progress Notes Filed: 07/27/2022 2:56 PM Note Text: PATIENT NAME: Tangela Trinidad CLINIC NO.: [id number] ATTENDING PHYSICIAN: Mavis Santiago MD DATE OF [...] Status 07/27/2022 18.0 (H) (more content not included)...[facility] 07-27-2022 History of Present illness Narrative* Mavis Santiago MD - 07/27/2022 2:48 PM EST PATIENT NAME: Tangela Trinidad [facility] NO.: [id number] ATTENDING PHYSICIAN: Mavis Santiago MD DATE OF [...] 07/27/2022 3.25 1.00 - 4.00 k/uL Final Camas% Date Value Ref Range Status 07/27/2022 14.0 % Final Abs Camas Date Value Ref Range Status 07/27/2022 1.25 (H) <0.87 k/uL Final Eosin% Date Value Ref Range Status 07/27/2022 5.8 % Final Abs Eosin Date Value Ref Range Status 07/27/2022 0.52 (H) <0.46 k/uL Final Baso% Date Value Ref Range Status 07/27/2022 0.9 % Final Abs Baso Date Value Ref Range Status 07/27/2022 0.08 <0.11 k/uL Final PATH: Imaging: Assessment and Plan: Tangela Triniadd is a 82 year old year old [...] do not hesitate to contact me at [phone]. Mavis Santiago MD Hematology/Medical Oncology [facility] I spent a total of 20 minutes on the date of the service which included preparing to see the patient, xijz-sc-cadq patient care, completing clinical documentation, obtaining and/or reviewing separately obtained history, performing a medically appropriate examination, counseling and educating the pat ient/family/caregiver, and ordering medications, tests, or procedures. CC: Kvng Melgar DO documented in this encounterAs[facility]01-[facility] Evaluation note* Encounter Date Diagnosis Assessment Notes Treatment Notes Treatment Clinical Notes Jul, Acute gastric ulcer without hemorrhage or perforation (ICD-10 - K25.3) [facility] Other [id number] [facility]* Encounter Date Diagnosis Assessment [...] Healty diet, keep active, consistent sleep routine [facility] [employer] [facility] Other [id number] NoteHNO ID: [id number] Author: MONY Mart Service: ? Author Type: Carpet Cleaning Technician Type: Progress Notes Filed: 06/02/2022 3:17 PM Note Text: Patient appears on the First Time Treatment List for a non-oncology treatment. No psychosocial assessment is indicated. KAYLEY Mart-[facility]11-23-2022 History of Present illness Narrative* MONY Mart - 06/02/2022 3:16 PM EST Patient appears on the First Time Treatment List for a non-oncology treatment. No psychosocial assessment is indicated. KAYLEY Mart-Aida documented in this encounterAshtabula [facility]11-15-2022 Miscellaneous Notes* Telephone Encounter - Mohit Lo [facility] - 05/25/2022 3:32 PM EST 1st report of treatment-non oncology regimen (Monofer[employer]) Patient holds Medicare coverage. No FA available at this time. documented in this encounterAshtabula [facility] Hospital11-08-2022 NoteHNO ID: [id number] Author: Mavis Santiago MD Service: ? Author Type: Physician Type: Progress Notes Filed: 05/18/2022 4:08 PM Note Text: PATIENT NAME: Tangela Trinidad [facility] NO.: [id number] ATTENDING PHYSICIAN: Mavis Santiago MD DATE OF [...] Final Lymph% Date Va (more content not included)...[facility]11-08-2022 History of Present illness Narrative* Mavis Santiago MD - 05/18/2022 3:51 PM EST PATIENT NAME: Tangela Trinidad CLINIC NO.: [id number] ATTENDING PHYSICIAN: Mavis Santiago MD DATE OF [...] 05/11/2018 2.74 1.00 - 4.00 k/uL Final Camas% Date Value Ref Range Status 05/11/2018 12.1 % Final Abs Camas Date Value Ref Range Status 05/11/2018 1.12 [...] do not hesitate to contact me at [phone]. Mavis Santiago MD Hematology/Medical Oncology [facility] I spent a total of 30 minutes on the date of the service which included preparing to see the patient, xmhh-oa-cgva patient care, completing clinical documentation, obtaining and/or reviewing separately obtained history, performing a medically appropriate examination, counseling and educating the pat ient/family/caregiver, and ordering medications, tests, or procedures. Medical Decision Making: Medical Decision Making Level: 1 - N/A CC: Kvng Melgar DO documented in this encounterAshtabula [facility] Hospital11-19-2020 Progress note Author Nicho Salcedo [facility] May 29, 2020 11:30am Note Date/Time May 29, 2020 11:29am [facility] [place] [address] Hem/Onc Follow Up Note - OP Signed Patient: Tangela Trinidad MR#: [id number] : 1940 Acct:[id number] Age/Sex: 80 / F Type: REG RCR [...] Rash Penicillins Allergy (Verified 11/28/19 10:23) Hives Hlahwhu-Qzg-Sou Reductase Inhibitor Allergy (Verified 11/28/19 10:23) Unknown [...] Neut % (Auto) 50.8,Lymph % (Auto) 30.1, Camas % (Auto) 14.9, Eos % (Auto) 3.3, Baso % (Auto) 0.9, Neut # (Auto) 4.4, Lymph # (Auto) 2.6, Camas # (Auto) 1.3 H, Eos # (Auto) [...] for coordination of care (as documented) and osii-am-csjg counseling of patient and/or family. Dictated By: Nicho Salcedo MD DD/ [id number] Signed By: <Electronically signed by MD Nicho Salcedo> 05/29/20 1130 [facility] Work Phone: [phone]) 765-814105-20-2020 Progress note Author Nicho Salcedo [facility] November 28, 2019 12:52pm Note Date/Time November 28, 2019 12:50 pm [facility] at [address] [address] Hem/Onc Follow Up Note - OP Signed Patient: Tangela Trinidad MR#: [id number] : 1940 Acct:[id number] Age/Sex: 79 / F Type: REG RCR [...] Rash Penicillins Allergy (Verified 11/28/19 10:23) Hives Yuefpux-Cnq-Xma Reductase Inhibitor Allergy (Verified 11/28/19 10:23) Unknown [...] Neut % (Auto) 49.9,Lymph % (Auto) 27.3, Camas % (Auto) 15.1, Eos % (Auto) 6.5, Baso % (Auto) 1.2, Neut # (Auto) 4.3, Lymph # (Auto) 2.4, Camas # (Auto) 1.3 H, Eos # (Auto) [...] for coordination of care (as documented) and mbik-dv-ymqn counseling of patient and/or family. Dictated By: Nicho Salcedo MD DD/ [id number] Signed By: <Electronically signed by MD Nicho Salcedo> 11/28/19 1251 [facility] Work Phone: Evaluation note* Diagnosis Iron deficiency- Primary Iron deficiency anemia, unspecified [facility]* Diagnosis Iron deficiency anemia, unspecified iron deficiency anemia type- Primary Iron deficiency Iron deficiency anemia, unspecified documented in this encounter [facility]* Diagnosis Iron deficiency- Primary Iron deficiency anemia, unspecified documented in this encounter [facility] HospitalEvaluation noteNo assessment information availableRegency [facility] Work Phone: Evaluation noteNo InformationNort [employer] Other Evaluation note* Diagnosis Onset Date Resolution [...] acute Medicare annual wellness visit, subsequent noneactive [facility] Work Phone: History and physical note Author Jeyson Diaz [facility] July 26, 2022 8:09am Note Date/Time July 26, 2022 8 :09am [facility] [address] [place] [address] Gastroenterology H&P Signed Patient: Tangela Trinidad MR#: [id number] : 1940 Acct:[id number] Age/Sex: 82 / F Adm Date: 3 Loc: Room: Type: [facility] Attending Dr: Jeyson Diaz MD Copies to: [...] <Electronically signed by Jeyson Diaz MD> 07/26/22808 [facility] Work Phone: History and physical note Author Jeyson Diaz [facility] October 28, 2022 1:13pm Note Date/Time October 28, 2022 1:1 3pm [facility] [address] [place] [address] Gastroenterology H&P Signed Patient: Tangela Trinidad MR#: [id number] : 1940 Acct:[id number] Age/Sex: 82 / F Adm Date: 3 Loc: Room: Type: [facility] Attending Dr: Jeyson Diaz MD Copies to: [...] signed by Jeyson Diaz MD> 10/28/22 1313 [facility] Work Phone: History general Narrative - Reported* Type Description Date Medical History Cervical spondylosis Medical History Vitamin D deficiency Medical History Hyponatremia Medical History [place] Medical History Fatigue Medical History Depression screening Medical History Encounter for screening breast e xamination Medical History Leukocytosis Medical History 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 Medical History Essential hypertension Medical History [...] History colonoscopy 07/26/22 Hospitalization History see above [facility] Other Hisgggb general Narrative - Reported* Type Description Date Medical History Cervical spondylosis Medical History Vitamin D deficiency Medical History Hyponatremia Medical History [place] Medical History Fatigue Medical History Depression screening Medical History Encounter for screening breast e xamination Medical History Leukocytosis Medical History Chronic ojpj-WSNST-68 syndrome Medical History Essential hypertension Medical History [...] w/ biopsy 10/2022 Hospitalization History see above [facility] Other Hisukkp general Narrative - Reported* Type Description Date Medical History Cervical spondylosis Medical History Vitamin D deficiency Medical History Hyponatremia Medical History [place] Medical History Fatigue Medical History Depression screening Medical History Encounter for screening breast e xamination Medical History Leukocytosis Medical History Chronic waat-EUTLX-67 syndrome Medical History Essential hypertension Medical History [...] History EGD 01/2023 Hospitalization History see above [facility] Other Hospital Discharge instructions Additional Instructions DISCHARGE [...] -Follow up with PCP. - Office number [phone]. [facility] Work Phone: Hospital Discharge instructions Additional [...] NOT operate machinery such as power tools, [employer] mowers, snow blowers, sewing machines, etc. for [...] problems. -Follow up with PCP. -Office number [phone]. [facility] Work Phone: Hospital Discharge instructions Additional [...] problems. -Follow up with PCP. -Office number [phone]. [facility] Work Phone: Summary Purpose Family History [...] DATE CREATED AUTHOR AUTHOR'S ORGANIZ ATION 08/04/2022 [facility] DATE CREATED AUTHOR AUTHOR'S ORGANIZ ATION 11/10/2022 [facility] DATE CREATED AUTHOR AUTHOR'S ORGANIZ ATION 03/25/[address] [facility] DATE CREATED AUTHOR AUTHOR'S ORGANIZ ATION 03/31/2024 [facility] EPIC DATE CREATED AUTHOR AUTHOR'S ORGANIZ ATION 05/09/2024 [facility] Source Comments (unrecognize d section and content) In the event this informatio n is protected by the Federal Confidentiality of Alcohol and Drug Abuse Patient Records regulations: The Federal rules restrict any use of the information to criminally investigate or prosecute any alcohol or drug abuse patient.[facility] HospitalIn the event this information is protected by the Federal Confidentiality of Alcohol and Drug Abuse Patient Records regulations: The Federal rules restrict any use of the information to criminally investigate or prosecute any alcohol or drug abuse patient.[facility] HospitalIn the event this information is protected by the Federal Confidentiality of Alcohol and Drug Abuse Patient Records regulations: The Federal rules restrict any use of the information to criminally investigate or prosecute any alcohol or drug abuse patient.[facility] HospitalIn the event this information is protected by the Federal Confidentiality of Alcohol and Drug Abuse Patient Records regulations: The Federal rules restrict any use of the information to criminally investigate or prosecute any alcohol or drug abuse patient.[facility] HospitalIn the event this information is protected by the Federal Confidentiality of Alcohol and Drug Abuse Patient Records regulations: The Federal rules restrict any use of the information to criminally investigate or prosecute any alcohol or drug abuse patient.[facility] HospitalIn the event this information is protected by the Federal Confidentiality of Alcohol and Drug Abuse Patient Records regulations: The Federal rules restrict any use of the information to criminally investigate or prosecute any alcohol or drug abuse patient.[facility] Care Teams (unrecognized sec tion and content) Team Status: Active Member Role Status Dates Kvng Melgar , Primary Care Provider Active Team Status: Inactive Member Role Status Dates Kvng Melgar , DO Primary Care Provider Active Jeyson Diaz MD Attending Provider Active Terminal Clerk Relationship Specialty Start Date End Date Kvng Melgar, DO PCP - General Internal Medicine 11/14/14 Terminal Clerk Relationship Specialty Start Date End Date Kvng Melgar, DO PCP - General Internal Medicine 11/14/14 Terminal Clerk Relationship Specialty Start Date End Date Kvng Melgar, DO PCP - General Internal Medicine 11/14/14 Terminal Clerk Relationship Specialty Start Date End Date Kvng Melgar, DO PCP - General Internal Medicine 11/14/14 Terminal Clerk Relationship Specialty Start Date End Date Kvng Melgar, DO PCP - General Internal Medicine 11/14/14 Terminal Clerk Relationship Specialty Start Date End Date Kvng [...] anemia type Iron deficiency Mavis Santiago MD [facility] [address] [address]on Treat [address] [place] [address] Referral ID Status Reason Start Date Expiration Date V isits Requested Visits Authorized [id number] Authorized 05/18/2022 08/16/2022 99 99 Reason Comments [...] BE BASED ON THE PRIMARY CLINICAL RECORDS. [employer] provides no warranty or guarantee of the accuracy or completeness of information in this document.
--- NOTE | 2024-05-14 13:25 | CM.DCFOLLOWU ---
1st attempt 05/14/24, no answer
--- NOTE | 2024-05-15 16:06 | CM.DCFOLLOWU ---
2nd attempt 05/15/24, no answer
== END 2024-05-13 10:27 | disposition home or self-care (01) ==
LOC: ER 11:02 → MS 05-13 10:01
PROVIDERS: Admitting Provider Internal Medicine; Emergency Provider Emergency Medicine; PCP Internal Medicine; Visit Provider Internal Medicine
DX: M62.81 Muscle weakness (generalized) (principal); M54.50 Low back pain, unspecified; G89.29 Other chronic pain; M48.062 Spinal stenosis, lumbar region with neurogenic claudication; E03.9 Hypothyroidism, unspecified; I10 Essential (primary) hypertension; Z96.651 Presence of right artificial knee joint; Z90.710 Acquired absence of both cervix and uterus; Z98.1 Arthrodesis status; Z90.49 Acquired absence of other specified parts of digestive tract; Z79.890 Hormone replacement therapy; R26.2 Difficulty in walking, not elsewhere classified; Z79.899 Other long term (current) drug therapy; H91.90 Unspecified hearing loss, unspecified ear
CPT/HCPCS: 36415; 70450; 80053; 81003; 84484; 85025; 85610; 87804; 87811; 93005; 94761; 96372; 99285; G0378; J1650

== ENCOUNTER 2024-07-10 10:19 | Outpatient (OUT) | payer MEDICARE, OTHER, SELFPAY ==
--- NOTE | 2024-07-10 10:25 | US_ITS ---
The [address] [address] Patient Name: ELIANE MOSS MRN: [id number] date: 1940 Sex: F Assigned Patient Location: Current Patient Location: [place] Accession/Order Number: [id number] Exam Date: 07/10/2024 10:30 Report Date: 07/10/2024 15:45 At the request of: GAB WADSWORTH Procedure: US carotid duplex BI DUPLEX ULTRASOUND EXAMINATION OF THE CAROTID ARTERIES. COMPARISON: None. HISTORY / INDICATIONS: Increased dizziness TECHNIQUE: Bilateral common carotid arteries, extracranial internal and external carotid arteries are evaluated with jones-scale imaging, color Doppler, and spectral analysis according to a standard protocol. ICA-CCA ratios are calculated with customer service representative peak-systolic velocities and recorded. Vertebral arteries are evaluated in one segment to evaluate for patency and character of flow. Comparison with previous evaluation is performed when available. Unless otherwise specified, all velocities are measured in cm/sec. Carotid stenosis is reported according to validated velocity parameters, similar to NASCET criteria. FINDINGS: Right Carotid: Mild plaque was noted. Velocity measurements as follows: Internal Carotid Artery 64/20 and 72/23. ICA to CCA ratio: 1.3. Left Carotid: Mild plaque was noted. Velocity measurements as follows: Internal Carotid Artery 63/23 and 70/24. ICA to CCA ratio: 1.9. Antegrade flow was seen in both vertebral arteries. CONCLUSION: 1. Less than 50% stenosis of the right ICA. 2. Less than 50% stenosis of the left ICA. 3. Vertebral arteries are patent and demonstrate antegrade flow. Electronically authenticated by: Nadia ROJAS Date: 07/10/2024 15:45
--- OUTSIDE RECORDS SUMMARY | 2024-07-10 10:26 | XMS_ITS | CCD ---
Author Organization [facility] Care Team Providers Care Delivery Room Supervisor Name Role Phone Doctor, No Unavailable Unavailable Doctor, No Unavailable Unavailable Donnell Barton Unavailable Unavailable Donnell Barton Unavailable Unavailable Kvng Wadsworth DO Primary Care Provider Kvng Wadsworth DO Primary Care Provider DO Kvng Wadsworth Primary Care Provider MD Jeyson Diaz Attending Provider KVNG WADSWORTH Primary Care Unavailable MAVIS SANTIAGO Referring Unavailable MAVIS SANTIAGO Attending Unavailable KVNG WADSWORTH Primary Care Unavailable KVNG WADSWORTH Primary Care Unavailable MAVIS SANTIAGO Attending Unavailable KVNG WADSWORTH Referring Unavailable KVNG WADSWORTH Primary Care Unavailable Adebayo Pan Unavailable Kvng Wadsworth Unavailable Jeyson Diaz Unavailable Sadiq Beckham Unavailable DO Kvng Wadsworth Primary Care Provider MD Joe Imprice Attending Provider [phone] KVNG WADSWORTH Primary Care Unavailable ERMELINDA, DR CALDERON Attending [...] ANTHONY Gautam Consulting Unavailable ERMELINDA, DR CALDERON Primary Care Unavailable KATELYNN ., [...] Care Provider MD Joe Imprice Attending Provider DO Kvng Wadsworth Primary Care Provider MD Joe Imprice Attending Provider Ermelinda, DO Calderon Primary Care Provider DO Lorelei Hurtado Attending Provider Kvng Wadsworth Primary Care Unavailable Lorelei Hurtado Admitting Unavailab Lorelei Wetzel Attending Unavailab le Kvng Wadsworth Primary Care Unavailable Asaad, Imad Admitting Unavailable Asaad, Imad Attending Unavailable Gurmeet REDD, Andrius Costa Attending Unavailable Gurmeet REDD, Andrius Costa Attending Unavailable Gurmeet REDD, Andrius Costa Attending Unavailable Kvng Wadsworth MD Primary Care Provider VEDA MILLIGAN Attending Unavailable VEDA MILLIGAN Referring Unavailable LORELEI HURTADO Attending Unavailable LORELEI HURTADO Attending Unavailable NICHO MCCOY Attending Unavailable LORELEI HURTADO Attending Unavailable ALYSSA CORONA Attending Unavailable KVNG WADSWORTH Referring Unavailable Allergies Allergy Classification Reported Allergen(s) Allergy Type Date of Onset Reaction(s) Facility (8 sources) Penicillins; Translations: [PENICILLINS] Drug allergy (disorder) 11-16-19 15 AOF, Hives, Hives, PENICILLINS [facility] Repository (8 sources) Sulfonamides (Antibiotic); Translations: [SULFA (SULFONAMIDE ANTIBIOTICS)] Drug allergy (disorder) 11-16-19 15 AOF, Hives, Hives, Comment:2005 [facility] Repository (7 sources) Ylckfgd-Qxg-Kfg Reductase Inhibitor Drug allergy (disorder) 01-06-20 18 Unknown Reaction, Unknown Reaction, muscle aches [facility] Repository (20 sources) Cephalosporins (Antibiotic); Translations: [CEPHALOSPORINS] Drug Allergy 10-24-19 15 Unknown [facility] (7 sources) HMG-CoA reductase inhibitor; Translations: [YEXRUPF-JZK-BZL REDUCTASE INHIBITORS] Drug Allergy 01-06-20 18 Unknown [facility] (18 sources) Nitrofurantoin; Translations: [NITROFURANTOIN MACROCRYSTAL] Drug Allergy 10-12-19 19 Rash, Itching [facility] (6 sources) Penicillins Drug Allergy 11-16-19 15 [facility] (20 sources) Povidone-Iodine; Translations: [POVIDONE-IODINE] Drug Allergy 06-21-20 19 Unknown [facility] (20 sources) Sulfonamides (Antibiotic) Drug Allergy 11-16-19 15 [facility] (20 sources) Vancomycin; Translations: [VANCOMYCIN] Drug Allergy 10-12-19 19 Rash, Itching [facility] (20 sources) Nitrofurantoin; Translations: [nitrofurantoin] Drug Allergy 12-02-19 21 [facility] (20 sources) Penicillin G Benzathine Drug allergy rash [facility] [employer] Other (20 sources) Sulfacetamide / Sulfur Drug Allergy rash [facility] [employer] Other (20 sources) Statins Depletion Drug allergy muscle aches [facility] [employer] Other (1 source) black walnut pollen extract Drug Allergy 05-17-20 14 [facility] Repository (1 source) Cephalosporins (Antibiotic) Drug allergy (disorder) 10-24-19 15 [facility] Repository (2 sources) Nitrofurantoin Drug Allergy 10-24-19 15 rash [facility] Repository (1 source) Penicillins Drug allergy (disorder) 01-24-20 13 [facility] Repository (2 sources) Povidone-Iodine Drug Allergy 06-21-20 19 Unknown [facility] Repository (1 source) Sulfonamides (Antibiotic) Drug allergy (disorder) 01-31-20 13 [facility] Repository (1 source) Vancomycin Drug Allergy 10-24-19 15 [facility] Repository (20 sources) Statins Depletion *DIETARY PRODUCTS/DIETARY MANAGE Propensity to adverse reactions Unknown [email or web address] Other (20 sources) Substance with penicillin structure and antibacterial mechanism of action (substance) Drug allergy 04-30-20 06 PENICILLINS [email or web address] Other (20 sources) Sulf-10 Drug allergy 12-01-19 06 SULFA 10 [email or web address] Other (1 source) Vancomycin Drug Allergy rash [email or web address] Other (1 source) Cephalosporins (Antibiotic) Drug allergy (disorder) 03-16-20 24 [facility] Repository (1 source) Povidone-Iodine Drug Allergy 03-16-20 24 [facility] Repository (1 source) Vancomycin Drug Allergy 03-16-20 [facility] Repository (11 sources) Cephalosporins (Antibiotic) Drug Allergy 10-24-19 15 [facility] (11 sources) HMG-CoA reductase inhibitor Drug Allergy 01-25-20 24 [facility] (11 sources) Penicillins Drug Allergy 11-16-19 15 Hives [facility] (5 sources) Povidone-Iodine Drug Allergy 01-25-20 24 [facility] Medications Current Medications Medication Drug Class(es) Dates Sig (Normalized) Sig (Original) acetaminophen 500 mg oral tablet (20 sources) Start: 07-26-2022 take 1 tablet by [...] by mouth every four to six hours Ykwerzo-Dowjnjotguizl-Teurrwsz (Excedrin Migraine) 250-250-65 mg Tablet Active 1 TAB PO EVERY 4-6 HOURS July 26, 2022 1:00am take 2 tablets by mouth every si x hours Excedrin Migraine 250-250-65 MG 2 tablets as needed Orally every 6 hrs Active [id number] actuat albuterol 0.09 mg/actuat metered dose [...] (20 sources) Dihydropyridine Calcium Channel Frandy Start: 10-12-2023 amLODIPine (Norvasc) 5 MG tablet Daily 10/12/2023 Active Start: 10-07-2023 End: 10-12-2023 take 1 tablet by mouth once daily Amlodipine Discontinued 0 .ROUTE .COMPLEX 90 October 07, 2023 12:55pm October 12, 2023 [...] once daily Atenolol Active 0 .ROUTE .COMPLEX 90 January 19, 2024 8:31am TAKE 1 TABLET BY MOUTH EVERY DAY Start: 11-15-2014 End: 01-19-2024 take 1 tablet by mouth once daily Atenolol (Tenormin) 25 mg Tablet Discontinued 25 MG PO Daily November 28, 2019 12:00am January 19, 2024 8:31am Comment on above: Take 1 tablet by george once daily. Calcium + D 315-200 MG-UNIT (20 sources) take 1 tablet by mouth twice daily at mealtime Calcium + D 315-200 MG-UNIT 1 tablet with meals Orally Twice a day Active calcium carbonate 1500 mg oral tablet (16 sources) Start: 07-26-19 Calcium Carbonate (Calcium 600) 600 mg calcium (1,500 mg) Tablet Active 1200 MG PO Daily July 26, 2022 1:00am cholecalciferol 0.01 mg chewable tablet (16 sources) Vitamin D Start: 07-26-19 take 1 tablet by mouth once daily Cholecalciferol (Vitamin D3) (Vitamin D3) 10 mcg (400 unit) Tablet,Chewable Active 20 MCG PO Daily July 26, 2022 1:00am cholecalciferol (Vitamin D-3) 250 MCG (82461 UT) capsule as directed Orally Active dicyclomine hydrochloride 10 mg oral capsule (20 sources) Anticholinergic take 2 capsules by mouth every eight hours Dicyclomine HCl 10 MG 2 capsules Orally Three times a day Active doxycycline hyclate 100 mg oral capsule (20 sources) Tetracycline-class Drug Start: 03-04-20 take 1 capsule by mouth every twenty-four hours Doxycycline Hyclate 100 MG 1 capsule Orally Once a day for 5 days Feb, Active Start: 12-28-2017 take 1 capsule by [facility] every twelve hours Doxycycline Hyclate 100 [...] mcg tablet 0.125 mcg. 2 10/05/2018 Active levothyroxine (S ynthroid, Levoxyl) 125 MCG tablet 1 (one) time each day at the same time Active take 1 tablet by george th every twenty-four hours Levothyroxine Sodium 137 MCG 1 tablet Orally Once a day Active Comment on above: TAKE 1 TABLET BY GEORGE TH EVERYDAY ON AN EMPTY STOMACH 0.125 mcg. Multiple Vitamin (Multi Vitamin Daily) tablet (11 sources) Multiple Vitamin (Multi Vitamin Daily) tablet 1 (one) time each day at the same time Active Multivitamin preparation (20 sources) Multivitamin Act kerri Multivitamin Not -Taking Salem 3 1200 MG (20 sources) take 1 capsule by mo [facility] once daily Salem 3 1200 MG 1 capsule Orally Once a day Active take 1 capsule by mouth once taniya ly Salem 3 1200 MG 1 capsule Orally Once a day Not-Taking Salem-3 Fatty Acids (OMEGA 3 500 PO) (6 sources) Salem-3 Fatty Ac ids (OMEGA 3 500 PO) Take by mouth Active pantoprazole 40 mg delayed release oral tablet [...] 2022 12:00am October 28, 2022 1:33pm predniSONE 10 mg oral tablet (17 sources) Start: 03-01-2024 End: 06-29-2024 take 1 tablet by mouth once daily predniSONE (Deltasone) 10 MG tablet Indications: Myasthenia gravis (CMS/HCC) , Ptosis of left eyelid , Left abducens nerve palsy Take 1 tablet (10 mg) by mouth Daily 30 tablet 3 03/01/2024 03/29/2024 Discontinued (Ineffective) Start: 03-04-2023 predniSONE 20 MG 1 tablet Orally bid w /food x 3 days then qd w/ food x 3 days for 6 days Feb, Active pyridostigmine bromide 60 mg oral tablet (10 sources) Start: 01-31-2024 End: 01-30-2025 take 0.5 tablet by mouth in the morning, then take 0.5 tablet by mouth in the evening, then take 0.5 tablet by mouth at bedtime pyridostigmine (Mestinon) 60 MG tablet Indications: Ptosis of left eyelid , Left abducens nerve palsy Take 0.5 tablets (30 mg) by mouth in the morning and 0.5 tablets (30 mg) in the evening and 0.5 tablets (30 mg) before bedtime. 45 tablet 3 01/31/2024 03/29/2024 Discontinued (Ineffective) red yeast rice 600 mg oral tablet (16 sources) Start: 07-26-2022 take 2400 mg by mouth once daily Red Yeast Rice Active 2400 MG PO Daily July 26, 2022 1:00am give with meal/snack Red Yeast Rice 6 00 MG capsule as directed Orally Active Red Yeast Rice (20 sources) Red Yeast [...] topical cream (20 sources) Corticosteroid Start: 09-16-2023 triamcinolone (Kenalog) 0.1 % cream .COMPLEX 09/16/2023 Active Start: 09-16-2023 Triamcinolone Acetonide Active 0 .ROUTE [...] needed Orally every 6 hrs Not-Taking Vit C,J-Pi-Fmtfi-Lutein-Zeax an (Preservision Areds-2) 250-90-40-1 mg Capsule (5 sources) Start: 07-26-2022 Vit C,G-Ht-Ztedd-Lutein-Zeax an (Preservision Areds-2) 250-90-40-1 mg Capsule Active 1 TAB PO Twice daily July 26, 2022 1:00am Start: 07-26-2022 Vit C,E-Zn-Companion Caregiver ab-Huilui-Skdqki (Preservision Areds-2) 250-90-40-1 mg Capsule Active 1 TAB PO Twice daily July 26, 2022 12:00am Vitamin C 500 MG (20 sources) Vitamin C 500 MG Orally Active Vitamin C 500 MG Orally Not-Taking vitamin e d-alpha 400 unt oral capsule (3 sources) take 1 capsule by [facility] every twenty-four hours Vitamin E 400 UNIT 1 capsule Orally Once a day Active Vitamin E 400 UNIT (20 sources) take 1 capsule by mo [facility] once daily Vitamin E 400 UNIT 1 capsule Orally Once a day Active take 1 capsule by mouth once taniya ly Vitamin E 400 UNIT 1 capsule Orally Once a day Not-Taking 100 ml zoledronic acid 0.05 mg/ml injection (20 sources) Bisphosphonate zoledronic acid (Reclast) 5 MG/100ML solution Intravenous Active Reclast YEARLY A ctive Completed/Discontinued Medications Medication Drug Class(es) Dates Sig (Normalized) Sig (Original) aspirin/acetamino phen/caffeine (EXCEDRIN EXTRA STRENGTH ORAL) (5 sources) aspirin/acetamin op hen/caffeine (EXCEDRIN EXTRA STRENGTH ORAL) Take by mouth. 0 Active Comment on above: Take by mouth. CA/D3/MAG OX/ZINC/NON LICENSED NUCLEAR PLANT OPERATOR/MEREDITH/ BOR (CALCIUM 600+D3 PLUS ORAL) (6 sources) take 1200 mg by mouth once daily CA/D3/MAG OX/ZINC/NON LICENSED NUCLEAR PLANT OPERATOR/MEREDITH/B OR (CALCIUM 600+D3 PLUS ORAL) Take 1,200 mg by mouth once daily. 0 Active Comment on above: Take 1,200 mg by [facility] once daily. celecoxib 100 mg [...] 26, 2022 1:00am October 28, 2022 11:38am diclofenac (Volt aren) 75 MG EC tablet 1 (one) time each day at the same time Active Comment on above: Take 75 mg by [...] 26, 2022 1:00am August 29, 2023 1:48pm famotidine (Pepc id) 40 MG tablet 1 (one) time each day at the same time Active take 1 tablet by mouth twice taniya ly famotidine (PEPCID) 20 mg tablet Take 20 mg by mouth twice daily. 0 Active Comment on above: Take 20 mg by mouth twice daily. glucosamine sulfate 750 mg oral tablet (14 sources) Start: 01-24-2023 End: 08-29-2023 take 1 tablet by mouth once daily Glucosamine Sulfate (Dayan) 750 mg Tablet Discontinued 750 MG PO Daily January 24, 2023 12:00am August 29, 2023 1:48pm administer with a meal Glucosamine 500 MG capsule every 8 (eight) hours Active LORazepam 0.5 mg oral tablet (14 sources) Benzodiazepine Start: 10-12-2023 End: 03-20-2024 take 1 tablet by mouth once, then take 1 tablet by mouth every hour LORazepam (Ativan) 0.5 MG tablet Indications: DDD (degenerative disc disease), lumbar Take 1 tablet (0.5 mg) by mouth 1 time for 1 dose Take 1 hour prior to MRI 1 tablet 02/21/2024 03/20/2024 Discontinued (Therapy completed) Start: 05-31-2023 LORazepam 0.5 MG 1 tablet Orally one hour before procedure for 1 days May, Active losartan potassium 50 mg oral tablet (20 sources) Angiotensin 2 Receptor Frandy Start: 08-29-2023 End: 09-01-2023 take 50 mg by mouth once daily Losartan Discontinued 50 MG PO Daily August 29, 2023 1:00am September 01, 2023 12:36pm methylPREDNISolone (20 sources) Corticosteroid Start: 01-25-2024 End: 03-20-2024 methylPREDNISolone (Medrol Dospak) 4 MG tablets Indications: Chronic low back pain, unspecified back pain laterality, unspecified whether sciatica present Follow schedule on package instructions 21 tablet 01/25/2024 03/20/2024 Discontinued (Therapy completed) Start: 01-25-2024 methylPREDNISo lone (Medrol Dospak) 4 MG tablets Indications: Chronic low back pain, unspecified back pain laterality, unspecified whether sciatica present Follow schedule on package instructions 21 tablet 01/25/2024 Active methylPREDNISolo ne 4 MG as directed Orally take as directed for 6 days Not-Taking 24 hr metoprolol succinate 25 mg extended release oral tablet (7 sources) beta-Adrenergic Frandy Start: 11-28-2019 End: 05-29-2020 take 25 mg by mouth once daily [...] living (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; Translations: [INTERMEDIATE CURRNT USE OPIATE ANALGES] Onset: 10-26-2022 Episodic [...] 10-05-2023 Episodic Other eye disorders (1 source) Ptosis [...] Onset: 03-16-2024 Chronic Other nervous system disorders (2 sources) Myasthenia gravis; Translations: [Myasthenia gravis without (acute) exacerbation] 03-01-2024 Chronic Other nervous system disorders (20 sources) [...] or radiculopathy, lumbar region] Onset: 01-06-2022 Chronic Thyroid disorders (20 sources) Rhett thyroiditis; 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-2022 Chronic Transient cerebral ischemia (20 sources) Vertebrobasilar artery syndrome; 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 Unclassified (20 sources) Left-sided low back pain without sciatica, unspecified chronicity; Translations: [Left-sided low back pain without sciatica, unspecified chronicity] Unclassified (20 sources) 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; Translations: [Chronic pfqd-QFFCM-68 syndrome] Unclassified (3 sources) LOW BACK PAIN, [...] exposure to COVID-19] Unclassified (1 source) 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; Translations: [Chronic hgze-AJWQY-96 syndrome] Viral infection (4 sources) COVID-19; Translations: [...] 05-22-2020 Episodic Other aftercare (1 source) Other parts counterman (current) drug therapy; Translations: [OTH AUDITOR SUPERVISOR CURRENT DRUG THERAPY] Onset: 01-29-2022 Episodic Other eye disorders (5 sources) Abducens nerve palsy; 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 [abducent] nerve palsy, unspecified eye] 10-10-2023 Episodic Other eye disorders (4 sources) Ptosis of left eyelid; Translations: [Unspecified ptosis of left eyelid] 03-01-2024 Episodic Other inflammatory condition of skin (1 [...] hyperhidrosis; Translations: [Generalized hyperhidrosis] Onset: 04-27-2016 Episodic Spondylosis; intervertebral disc disorders; other back problems (8 sources) Low back pain; Translations: [Low back pain, unspecified] Episodic Unclassified (1 source) LOW BACK PAIN, UNSPECIFIED; Translations: [LOW BACK PAIN, UNSPECIFIED] Onset: 09-27-2022 Results Test Name Value Interpretation Reference Range Facility CT chest w conon 03-16-2024 CT chest w con [facility] [place] [address] CT Scan Report Signed Patient: Tangela Moss MR#: [id number] : 1940 Acct:[id number] Age/Sex: 84 / F ADM Date: 03/16/24 Loc: CT Room: Type: [facility] Attending Dr: Lorelei Hurtado DO Copies to: [...] Viveros Jr., D.O.03/16/2024 2:09 PM Dictation Location: [place] [address] Transcribed By: PWS 03/16/24 1409 Dictated By: Bert Viveros Jr, 03/16/24 1403 Signed By: 03/16/24 1409 Normal [facility] Creatinineon 03-16-2024 GFR/1.73 sq M.predicted MDRD (S/P/Bld) [Vol rate/Area] mL/min/{1.73_m2} Normal [facility] Comment on above: Result Comment: PERF ORMED BY: [place] [address] PATHOLOGIST LIFT MECHANIC SPEEDY GRAY M.D. Performed By: #### C REAT #### [address] Creatinine [Mass/volume] in Serum or PlasmaOrdered By: Lorelei Hurtado on 03-16-2024 Creatinine [Mass/Vol] 0.83 mg/dL Normal 0.60-1.20 [facility] Comment on above: Performed By: #### C REAT #### [facility] [address] [place] [address] No Panel InformationOrdered By: Lorelei Hurtado on 03-16-2024 Estimated GFR (CKD-EPI) > 60.0 mL/Min [facility] Creatinine Clearance (Chem N/A [facility] NM gastric emptying studyon 07-25-2023 NM gastric emptying study [facility] [place] [address] [place] [address] Nuclear Medicine Report Signed Patient: Tangela Moss MR#: [id number] : 1940 Acct:[id number] Age/Sex: 83 / F ADM Date: 07/25/23 Loc: [place] Room: Type: [facility] Attending Dr: Jeyson Diaz MD Copies to: MD Gaston iL Jeffrey S DO Ordering Provider: Jeyson Diaz [...] Matt Feldman M.D.07/25/2023 9:40 AM Dictation Location: [place] [address] Transcribed By: [facility] 07/25/23939 Dictated By: Matt Feldman DO 07/25/2334 Signed By: 07/25/23939 Normal [facility] Physician [facility] MG MAMM SCREEN 3D ROXANA CADon 10-20-2022 MG MAMM SCREEN 3D ROXANA CAD Patient: TANGELA MOSS Exam Date: 10/20/2022 : 1940 Gender:F Ordering : DR KVNG WADSWORTH D.O. Admission #: [id number] Family : Order #: [id number] CLICK HERE TO VIEW EXAM RADIOLOGY REPORT [...] cancer at age 64. LOCATION: [facility] BREAST COMPOSITION: Scattered areas fibroglandular [...] LUMP SHOULD BE BIOPSIED. Dictated by: Anthony Baez M.D. on 10/20/2022 at 13:16 Approved by: Anthony Baez M.D. on 10/20/2022 at 13:19 Normal [facility] CBC W Auto Differential pane l (Bld)on 07-27-2022 Basophils (Bld) [#/Vol] 0.08 10*3/uL Normal <0.11 [facility] Comment on above: Order Comment: Speci men Type: BLOOD SPECIMEN Ordering Facility: [facility] Address: [address] [place] [address] Performed By: #### 1 4196-0, 95941-1 #### [facility] CLIA [id number] [address] [place] [address] Basophils/100 WBC (Bld) 0.9 % Normal [facility] Comment on above: Order Comment: Speci men Type: BLOOD SPECIMEN Ordering Facility: [facility] Address: [address] [place] [address] Performed By: #### 1 4196-0, 23210-7 #### [facility] CLIA [id number] [address] [place] [address]956 Differential cell count method Nom (Bld) Auto Normal [facility] Comment on above: Order Comment: Speci men Type: BLOOD SPECIMEN Ordering Facility: [facility] Address: [address] [address] Performed By: #### 1 4196-0, 31345-0 #### [facility] CLIA [id number] [address] [place] [address] Eosinophils (Bld) [#/Vol] 0.52 10*3/uL High <0.46 [facility] Comment on above: Order Comment: Speci men Type: BLOOD SPECIMEN Ordering Facility: [facility] Address: [address] [place] [address] Performed By: #### 1 4196-0, 49708-7 #### [facility] CLIA [id number] [address] [place] [address]228 Eosinophils/100 WBC (Bld) 5.8 % Normal [facility] Comment on above: Order Comment: Speci men Type: BLOOD SPECIMEN Ordering Facility: [facility] Address: [address] [place], [place] [address] Performed By: #### 1 4196-0, 38244-9 #### [facility] CLIA [id number] [address] [place] [address]20 Erythrocyte distribution width (RBC) [Ratio] 18.0 % High 11.5-15.0 [facility] Comment on above: Order Comment: Speci men Type: BLOOD SPECIMEN Ordering Facility: [facility] Address: [address] [address] Performed By: #### 1 4196-0, 30122-0 #### [facility] CLIA [id number] [address] [place] [address] 15900 Hematocrit (Bld) [Volume fraction] 39.6 % Normal 36.0-46.0 [facility] Comment on above: Order Comment: Speci men Type: BLOOD SPECIMEN Ordering Facility: [facility] Address: [address] [place] [address] Performed By: #### 1 4196-0, 49162-7 #### [facility] CLIA [id number] [address] [place] [address] 64190 Hemoglobin (Bld) [Mass/Vol] 13.0 g/dL Normal 11.5-15.5 [facility] Comment on above: Order Comment: Speci men Type: BLOOD SPECIMEN Ordering Facility: [facility] Address: [address] [address] Performed By: #### 1 4196-0, 27256-5 #### [facility] CLIA [id number] [address] [place] [address] 49876 Immature granulocytes (Bld) [#/Vol] 0.04 10*3/uL Normal <0.10 [facility] Comment on above: Order Comment: Speci men Type: BLOOD SPECIMEN Ordering Facility: [facility] Address: [address] [place] [address] Performed By: #### 1 4196-0, 32236-6 #### [facility] CLIA [id number] [address] [place] [address] 30562 Immature granulocytes/100 WBC (Bld) 0.4 % Normal [facility] Comment on above: Order Comment: Speci men Type: BLOOD SPECIMEN Ordering Facility: [facility] Address: [address] [place] [address] Performed By: #### 1 4196-0, 12131-8 #### [facility] CLIA [id number] [address] [place] [address] 32351 Lymphocytes (Bld) [#/Vol] 3.25 10*3/uL Normal 1.00-4.00 [facility] Comment on above: Order Comment: Speci men Type: BLOOD SPECIMEN Ordering Facility: [facility] Address: [address] [place] [address] Performed By: #### 1 4196-0, 13372-2 #### [facility] CLIA [id number] [address] [place] [address] 27260 Lymphocytes/100 WBC (Bld) 36.3 % Normal [facility] Comment on above: Order Comment: Speci men Type: BLOOD SPECIMEN Ordering Facility: [facility] Address: [address] [place] [address] Performed By: #### 1 4196-0, 93409-4 #### [facility] CLIA [id number] [address] [place] [address] 53729 MCH (RBC) [Entitic mass] 28.3 pg Normal 26.0-34.0 [facility] Comment on above: Order Comment: Speci men Type: BLOOD SPECIMEN Ordering Facility: [facility] Address: [address] [place] [address] Performed By: #### 1 4196-0, 09177-3 #### [facility] CLIA [id number] [address] [place] [address] 06187 MCHC (RBC) [Mass/Vol] 32.8 g/dL Normal 30.5-36.0 [facility] [facility] Comment on above: Order Comment: Speci men Type: BLOOD SPECIMEN Ordering Facility: [facility] Address: [address] [address] Performed By: #### 1 4196-0, 16417-6 #### [facility] CLIA [id number] [address] [place] [address] 93941 MCV (RBC) [Entitic vol] 86.1 fL Normal 80.0-100.0 [facility] Comment on above: Order Comment: Speci men Type: BLOOD SPECIMEN Ordering Facility: [facility] Address: [address] [address] Performed By: #### 1 4196-0, 03515-9 #### [facility] CLIA [id number] [address] [place] [address] 61607 Monocytes (Bld) [#/Vol] 1.25 10*3/uL High <0.87 [facility] Comment on above: Order Comment: Speci men Type: BLOOD SPECIMEN Ordering Facility: [facility] Address: [address] [address] Performed By: #### 1 4196-0, 29779-8 #### [facility] CLIA [id number] [address] [place] [address] 99532 Monocytes/100 WBC (Bld) 14.0 % Normal [facility] Comment on above: Order Comment: Speci men Type: BLOOD SPECIMEN Ordering Facility: [facility] Address: [address] Performed By: #### 1 4196-0, 73812-4 #### [facility] CLIA [id number] [address] [place] [address]380 Neutrophils (Bld) [#/Vol] 3.81 10*3/uL Normal 1.45-7.50 [facility] Comment on above: Order Comment: Speci men Type: BLOOD SPECIMEN Ordering Facility: [facility] Address: [address] [address] Performed By: #### 1 4196-0, 32114-3 #### [facility] CLIA [id number] [address] [place] [address] Neutrophils/100 WBC (Bld) 42.6 % Normal [facility] Comment on above: Order Comment: Speci men Type: BLOOD SPECIMEN Ordering Facility: [facility] Address: [address] [place] [address] Performed By: #### 1 4196-0, 36788-9 #### [facility] CLIA [id number] [address] [place] [address] 98903 Nucleated RBC (Bld) [#/Vol] 10*3/uL Normal <0.01 [facility] Comment on above: Order Comment: Speci men Type: BLOOD SPECIMEN Ordering Facility: [facility] Address: [address] [place] [address] Performed By: #### 1 4196-0, 43627-6 #### [facility] CLIA [id number] [address] [place] [address] 20041 Nucleated RBC/100 WBC (Bld) [Ratio] 0.0 /100 WBC Normal [facility] Comment on above: Order Comment: Speci men Type: BLOOD SPECIMEN Ordering Facility: [facility] Address: [address] [place] [address] Performed By: #### 1 4196-0, 00324-3 #### [facility] CLIA [id number] [address] [place] [address] 48374 Platelet mean volume (Bld) [Entitic vol] 9.5 fL Normal 9.0-12.7 [facility] Comment on above: Order Comment: Speci men Type: BLOOD SPECIMEN Ordering Facility: [facility] Address: [address] [place] [address] Performed By: #### 1 4196-0, 05971-6 #### [facility] CLIA [id number] [address] [place] [address] 80524 Platelets (Bld) [#/Vol] 379 10*3/uL Normal 150-400 [facility] Comment on above: Order Comment: Speci men Type: BLOOD SPECIMEN Ordering Facility: [facility] Address: [address] [id number] Performed By: #### 1 4196-0, 34382-0 #### [facility] CLIA [id number] [address] [place] [address] 37719 RBC (Bld) [#/Vol] 4.60 10*6/uL Normal 3.90-5.20 [facility] Comment on above: Order Comment: Speci men Type: BLOOD SPECIMEN Ordering Facility: [facility] Address: [address] [place], [place] [address] Performed By: #### 1 4196-0, 45499-0 #### [facility] CLIA [id number] [address] [place] [address] 53846 WBC (Bld) [#/Vol] 8.95 10*3/uL Normal 3.70-11.00 [facility] Comment on above: Order Comment: Speci men Type: BLOOD SPECIMEN Ordering Facility: [facility] Address: [address] [place], [place] [address] Performed By: #### 1 4196-0, 78710-2 #### [facility] CLIA [id number] [address] [place] [address] 69281 CNOVSPon 07-27-2022 OVS Visit (SP) Office ([place]) TANGELA MOSS ([id number]) 1940 F Date Time Provider Department 07/27/22 2:45 PM MAVIS SANTIAGO During your visit today, we recorded the following information about you: Temperature Pulse Respiration Blood pressure 98.1 degrees 64/minute 16/minute 125/72 Weight Height 66.5 kg 1.524 m Mavis Santiago MD 07/27/2022 2:56 PM Signed PATIENT NAME: Tangela Moss CLINIC NO.: [id number] ATTENDING PHYSICIAN: Mavis Santiago MD DATE OF SERVICE: July 27, 2022 Some of the elements of this note have been copied from my previous progress note dated 05/18/2022. All the information has been reviewed carefully. Dear Dr. Kvng Wadsworth here is an update on a follow up visit on female Tangela Moss at the clinic July 27, 2022 Diagnosis: SHELLY Treatment History: IV Iron 10/2018. Repeat 05/2022 HPI: Tangela Moss is a 82 year old year old [...] Range Status (more content not included)... Normal [facility] Ferritin SerPl-ncon 2022 Ferritin [Mass/Vol] 104.0 ng/mL Normal 14.7-205.1 [facility] Comment on above: Order Comment: Speci men Type: BLOOD SPECIMEN Ordering Facility[facility] Address: [address] [place] [address] Performed By: #### 5 0190-8, 6-4 #### [facility] CLIA [id number] [address] [place] [address] [place] Iron and Iron binding capaci ty panelon 07-27-2022 Iron [Mass/Vol] 43 ug/dL Normal 41-186 [facility] Comment on above: Order Comment: Speci men Type: BLOOD SPECIMEN Ordering Facility: [facility] Address: [address] [place], [place] [address] Performed By: #### 5 0190-8, 6-4 #### [facility] CLIA [id number] [address] [place] Iron binding capacity [Mass/Vol] 265 ug/dL Normal 232-386 [facility] Comment on above: Order Comment: Speci men Type: BLOOD SPECIMEN Ordering Facility: [facility] Address: [address] [place], [place] [address] Performed By: #### 5 0190-8, 6-4 #### [facility] CLIA [id number] [address] [place] [address] [place] Iron/TIBC [Molar ratio] 16.2 % Normal 15.0-57.0 [facility] Comment on above: Order Comment: Speci men Type: BLOOD SPECIMEN Ordering Facility[facility] Address: [address] [place] [address] Performed By: #### 5 0190-8, 2276-4 #### [facility] CLIA [id number] [address] [place] [address] [place] Retics #on 07-27-2022 Reticulocytes (Bld) [#/Vol] 0.36198 10*3/uL Normal 0.018-0.100 [facility] Comment on above: Order Comment: Speci men Type: BLOOD SPECIMEN Ordering Facility: [facility] Address: [address] [place] [address] Performed By: #### 1 4196-0, 47315-2 #### [facility] CLIA [id number] [address] [place] [address] 07428 Reticulocytes (Bld) [#/Vol]o n 07-27-2022 Reticulocytes/100 RBC (Bld) 0.9 % Normal 0.4-2.0 [facility] Comment on above: Order Comment: Speci men Type: BLOOD SPECIMEN Ordering Facility: [facility] Address: [address] [place] [address] Performed By: #### 1 4196-0, 26875-4 #### [facility] CLIA [id number] [address] [place] [address] 15767 COVID-19 SOFIAOrdered By: Brandy Diaz on 07-22-2022 SARS-CoV+SARS-CoV-2 (COVID-19) Ag IA.rapid Ql (Resp) Negative Negative [facility] Comment on above: This is a duplicate Heidi SARS Antigen (DB) result to be used for statistical tracking purpose only. No Panel InformationOrdered By: Jeyson Diaz on 07-22-2022 SARS Antigen (LFIA) [facility] CNSWon 06-02-2022 CNSW Social Work ([place]) ISATNAGELA TAY ([id number]) 1940 F Date Time Provider Department 06/02/22 MARCIA RAMIRES During your visit today, we recorded the following information about you: MONY Mart 06/02/2022 3:17 PM Signed Patient appears on the First Time Treatment List for a non-oncology treatment. No psychosocial assessment is indicated. KAYLEY Mart-S Allergies As of Date: 06/02/2022 Noted Allergy Reaction CEPHALOSPORINS 10/23/2014 16 - Unknown MACRODANTIN (NITROFURANTOIN MACRO*10/11/2018 2 - Rash 9 - Itching PENICILLINS 11/15/2014 4 - Hives POVIDONE-IODINE 06/21/2019 16 - Unknown [id number]-[id number]-[id number] REDUCTASE INHIBIT*01/05/2018 16 - Unknown SULFA (SULFONAMIDE [...] 112 mcg tablet 0.125 mcg. - CA/D3/MAG OX/ZINC/NON LICENSED NUCLEAR PLANT OPERATOR/MEREDITH/BOR (CALCIUM 600+D3 PLUS ORAL) Take 1,200 mg by mouth once daily. - atenolol (TENORMIN) 25 mg tablet Take 1 tablet by mouth once daily. Problem List As Of Date 06/02/2022 Noted Resolved Anemia [D64.9] 11/15/2014 Iron deficiency [E61.1] 11/15/2014 Encounter Status:Closed by MARCIA RAMIRES on 06/02/22 Normal [facility] CNPN Telephone ([place]) TANGELA MOSS ([id number]) 1940 F Date Time Provider Department 05/25/22 FINANCIAL NAVIGATOR DAMON BREWER During your visit today, we recorded the following information about you: Mohit Lo [facility] 05/25/2022 3:35 PM Signed 1st report of treatment-non oncology regimen (Monoferric) Patient holds Medicare coverage. No FA available at this time. Allergies As of Date: 05/25/2022 Noted Allergy Reaction CEPHALOSPORINS 10/23/2014 16 - Unknown MACRODANTIN (NITROFURANTOIN MACRO*10/11/2018 2 - Rash 9 - Itching PENICILLINS 11/15/2014 4 - Hives POVIDONE-IODINE 06/21/2019 16 - Unknown [id number] REDUCTASE INHIBIT*01/05/2018 16 - Unknown SULFA (SULFONAMIDE ANTIBIOTICS) 11/15/2014 4 - Hives VANCOMYCIN 10/11/2018 2 - Rash 9 - Itching Date Reviewed: 05/18/2022 Reviewed by: Lyla Beasley - Fully Assessed Reason for Visit: Benefits Investigation [6232] Prescriptions as of 05/25/2022 - diclofenac, EC, [...] 112 mcg tablet 0.125 mcg. - CA/D3/MAG OX/ZINC/NON LICENSED NUCLEAR PLANT OPERATOR/MEREDITH/BOR (CALCIUM 600+D3 PLUS ORAL) Take 1,200 [...] Encounter Status:Closed by MOHIT SANTOS on 05/25/22 [facility] CNOVSP Visit (SP) Office ([place]) TANGELA MOSS ([id number]) 1940 F Date Time Provider Department 05/18/22 4:00 PM MAVIS SANTIAGO During your visit today, we recorded the following information about you: Temperature Pulse Respiration Blood pressure 98.1 degrees 78/minute 16/minute 122/78 Weight 68 kg Mavis Santiago MD 05/18/2022 4:08 PM Signed PATIENT NAME: Tangela Moss CLINIC NO.: [id number] ATTENDING PHYSICIAN: Mavis Santiago MD DATE OF SERVICE: May 18, [address] Kvng Wadsworth here is an update on a follow up visit on female Tangela Moss at the clinic 05/18/2022 Diagnosis: SHELLY Treatment History: IV Iron 10/2018 HPI: Tangela Moss is a 82 year old year old [...] Range Status (more content not included)... Normal [facility] IMMUNOFIXATION(ELISE),PROTEIN ELEC(PE),FIRSTHEALTHon 05-06-2022 Albumin [Mass/Vol] 2.9 g/dL Normal 2.9-4.4 [facility] Comment on above: Performed By: #### I FEPEFL #### [facility] [address] [address] [address] Yayo Gregg Albumin/Globulin [Mass ratio] 1.2 {ratio} Normal 0.7-1.7 [facility] Comment on above: Performed By: #### I FEPEFL #### [facility] [address] [address] [address] Yayo Gregg Wrcgc-5-Bfdfmchb 0.3 g/dL Normal 0.0-0.4 [facility] Comment on above: Performed By: #### I FEPEFL #### [facility] [address] [address] [address] Yayo Gregg Qseqk-0-Jeavelcu 0.7 g/dL Normal 0.4-1.0 [facility] Comment on above: Performed By: #### I FEPEFL #### [facility] [address] [address] [address] Yayo Gregg Beta Globulin 0.9 g/dL Normal 0.7-1.3 [facility] Comment on above: Performed By: #### I FEPEFL #### [facility] [address] [address] [address] Yayo Gregg Free Gillette Lt Chains,S 39.9 mg/L Critically high 3.3-19.4 [facility] Comment on above: Performed By: #### I FEPEFL #### [facility] [address] [address] [address] Yayo Gregg Free Lambda Lt Chains,S 22.7 mg/L Normal 5.7-26.3 [facility] Comment on above: Performed By: #### I FEPEFL #### [facility] [address] [address] [address] Yayo Gregg Gamma Globulin 0.6 g/dL Normal 0.4-1.8 [facility] Comment on above: Performed By: #### I FEPEFL #### [facility] [address] [place] [address] Dr. Yayo Gregg Globulin (S) [Mass/Vol] 2.6 g/dL Normal 2.2-3.9 [facility] Comment on above: Performed By: #### I FEPEFL #### [facility] [address] [place] [address] Dr. Yayo Gregg Immunofixation Result, Serum Comment Normal [facility] Comment on above: Result Comment: No m onoclonality detected. Performed By: #### I FEPEFL #### [facility] [address] [address] [address] Yayo Gregg Immunoglobulin A, Qn, Serum 81 mg/dL Normal 64-422 [facility] Comment on above: Performed By: #### I FEPEFL #### [facility] [address] [address] [address] Yayo Gregg Immunoglobulin G, Qn, Serum 547 mg/dL Critically low 586-1602 [facility] Comment on above: Performed By: #### I FEPEFL #### [facility] [address] [address] [address] Yayo Gregg Immunoglobulin M, Qn, Serum 92 mg/dL Normal 26-217 [facility] Comment on above: Performed By: #### I FEPEFL #### [facility] [address] [address] [address] Yayo Gregg Gillette/Lambda Ratio, S 1.76 Critically high 0.26-1.65 [facility] Comment on above: Performed By: #### I FEPEFL #### [facility] [address] [address] [address] Yayo Gregg M-Johan Not Observed Normal Not Observed [facility] Comment on above: Performed By: #### I FEPEFL #### [facility] [address] [address] [address] Yayo Gregg PDF . Normal [facility] Comment on above: Performed By: #### I FEPEFL #### [facility] [address] [place] [address] Dr. Yayo Gregg Please note: Comment Normal [facility] Comment on above: Result Comment: Prot ein electrophoresis scan will follow via computer, mail, or president and chief executive officer delivery. Performed By: #### I FEPEFL #### [facility] [address] [place] [address] Dr. Yayo Gregg Protein [Mass/Vol] 5.5 g/dL Critically low 6.0-8.5 [facility] Comment on above: Performed By: #### I FEPEFL #### [facility] [address] [place] [address] Dr. Yayo Gregg IMMUNOGLOBULINS IGA/IGM/IGG QUANTITATIVEon 05-05-2022 Immunoglobulin A, Qn, Serum 83 mg/dL Normal 64-422 [facility] Comment on above: Performed By: #### I MMUNGL #### [facility] [address] [address] [address] Yayo Gregg Immunoglobulin G, Qn, Serum 559 mg/dL Critically low 586-1602 [facility] Comment on above: Performed By: #### I MMUNGL #### [facility] [address] [place] [address] Dr. Yayo Gregg Immunoglobulin M, Qn, Serum 93 mg/dL Normal 26-217 [facility] Comment on above: Performed By: #### I MMUNGL #### [facility] [address] [place] [address] Dr. Yayo Gregg CBC AUTO DIFFon 05-04-2022 BASO # 0.1 103/ul Normal 0.0-0.1 [facility] Comment on above: Performed By: #### I MMUNGL #### [facility] [address] [place] [address] Dr. Yayo Gregg Basophils/100 WBC (Bld) 0.9 % Normal 0.2-2.0 [facility] Comment on above: Performed By: #### I MMUNGL #### [facility] [address] [place] [address] Dr. Yayo Gregg EO # 0.7 103/ul Normal 0.0-0.7 [facility] Comment on above: Performed By: #### I MMUNGL #### [facility] [address] [place] [address] Dr. Yayo Gregg Eosinophils/100 WBC (Bld) 6.7 % Normal 0.9-7.0 [facility] Comment on above: Performed By: #### I MMUNGL #### [facility] [address] [place] [address] Dr. Yayo Gregg Erythrocyte distribution width (RBC) [Ratio] 15.6 % Critically high 11.0-15.0 [facility] Comment on above: Performed By: #### I MMUNGL #### [facility] [address] [place] [address] Dr. Yayo Gregg Hematocrit (Bld) [Volume fraction] 31.3 % Critically low 36.0-48.0 [facility] Comment on above: Performed By: #### I MMUNGL #### [facility] [address] [place] [address] Dr. Yayo Gregg Hemoglobin (Bld) [Mass/Vol] 10.0 g/dL Critically low 12.0-16.0 [facility] Comment on above: Performed By: #### I MMUNGL #### [facility] [address] [place] [address] Dr. Yayo Gregg IG # 0.04 10e3/ul Critically high 0.00-0.03 [facility] Comment on above: Performed By: #### I MMUNGL #### [facility] [address] [address] [address] Yayo Gregg IG % 0.4 % Normal 0.0-0.5 [facility] Comment on above: Performed By: #### I MMUNGL #### [facility] [address] [address] [address] Yayo Gregg LYMPH # 2.9 103/ul Normal 1.2-3.8 [facility] Comment on above: Performed By: #### I MMUNGL #### [facility] [address] [place] [address] Dr. Yayo Gregg Lymphocytes/100 WBC (Bld) 29.6 % Normal 20.5-60.0 [facility] Comment on above: Performed By: #### I MMUNGL #### [facility] [address] [place] [address] Dr. Yayo Gregg MANUAL DIFF REQ NO Normal [facility] Comment on above: Performed By: #### I MMUNGL #### [facility] [address] [place] [address] Dr. Yayo Gregg MCH (RBC) [Entitic mass] 25.7 pg Critically low 26.7-34.0 [facility] Comment on above: Performed By: #### I MMUNGL #### [facility] [address] [address] [address] Yayo Gregg MCHC (RBC) [Mass/Vol] 31.9 g/dL Normal 29.9-35.2 [facility] Comment on above: Performed By: #### I MMUNGL #### [facility] [address] [place] [address] Dr. Yayo Gregg MCV (RBC) [Entitic vol] 80.5 fL Critically low 81.0-99.0 [facility] Comment on above: Performed By: #### I MMUNGL #### [facility] [address] [place] [address] Dr. Yayo Gregg MONO # 1.4 103/ul Critically high 0.3-0.8 [facility] Comment on above: Performed By: #### I MMUNGL #### [facility] [address] [place] [address] Dr. Yayo Gregg Monocytes/100 WBC (Bld) 14.5 % Critically high 1.7-12.0 [facility] Comment on above: Performed By: #### I MMUNGL #### [facility] [address] [place] [address] Dr. Yayo Gregg NEUT # 4.7 103/ul Normal 1.4-6.5 [facility] Comment on above: Performed By: #### I MMUNGL #### [facility] [address] [place] [address] Dr. Yayo Gregg Neutrophils/100 WBC (Bld) 47.9 % Normal 43.0-75.0 [facility] Comment on above: Performed By: #### I MMUNGL #### [facility] [address] [place] [address] Dr. Yayo Gregg Platelet mean volume (Bld) [Entitic vol] 9.5 fL Normal 9.5-13.5 [facility] Comment on above: Performed By: #### I MMUNGL #### [facility] [address] [place] [address] Dr. Yayo Gregg PLT 457 103/ul Critically high 150-450 [facility] Comment on above: Performed By: #### I MMUNGL #### [facility] [address] [place] [address] Dr. Yayo Gregg RBC 3.89 106/ul Critically low 4.20-5.40 [facility] Comment on above: Performed By: #### I MMUNGL #### [facility] [address] [place] [address] Dr. Yayo Gregg WBC 9.8 103/ul Normal 4.0-11.0 [facility] Comment on above: Performed By: #### I MMUNGL #### [facility] [address] [place], [place] [id number] Dr. Yayo Gregg FERRITINon 05-04-2022 Ferritin [Mass/Vol] 20.0 ng/mL Normal 8.0-252.0 [facility] Comment on above: Performed By: #### F ERR, FETIBC #### [facility] [address] [place] [address] Dr. Yayo Gregg IRON AND TIBCon 05-04-2022 % SATURATION 5.7 % Normal [facility] Comment on above: Performed By: #### F ERR, FETIBC #### [facility] [address] [place] [address] Dr. Yayo Gregg Iron [Mass/Vol] 18.0 ug/dL Critically low 50.0-170.0 [facility] Comment on above: Performed By: #### F ERR, FETIBC #### [facility] [address] [place] [address] Dr. Yayo Gregg TIBC DIRECT 318.0 ug/dL Normal 250.0-450.0 [facility] Comment on above: Performed By: #### F ERR, FETIBC #### [facility] [address] [place] [address] Dr. Yayo Gregg PROF CHEM 8 (BAS METB)on Anion gap [Moles/Vol] 11.7 mmol/L Normal [facility] Comment on above: Performed By: #### I MMUNGL #### [facility] [address] [place] [address] Dr. Yayo Gregg Calcium [Mass/Vol] 8.1 mg/dL Critically low 8.5-10.1 [facility] Comment on above: Performed By: #### I MMUNGL #### [facility] [address] [place] [address] Dr. Yayo Gregg Chloride [Moles/Vol] 100 mmol/L Normal 98-107 [facility] Comment on above: Performed By: #### I MMUNGL #### [facility] [address] [place] [address] Dr. Yayo Gregg CO2 [Moles/Vol] 25.7 mmol/L Normal 21.0-32.0 [facility] Comment on above: Performed By: #### I MMUNGL #### [facility] [address] [place] [address] Dr. Yayo Gregg Creatinine [Mass/Vol] 1.06 mg/dL Critically high 0.55-1.02 [facility] Comment on above: Performed By: #### I MMUNGL #### [facility] [address] [address] [address] Yayo Gregg EGFR-AF BARBADIAN =60 Normal >=60 [facility] Comment on above: Performed By: #### I MMUNGL #### [facility] [address] [place] [address] Dr. Yayo Gregg EGFR-NON AF BARBADIAN 49 mL/min/1.73m2 Critically low >=60 [facility] Comment on above: Performed By: #### I MMUNGL #### [facility] [address] [place] [address] Dr. Yayo Gregg Glucose [Mass/Vol] 121 mg/dL Critically high 74-106 [facility] Comment on above: Performed By: #### I MMUNGL #### [facility] [address] [place] [address] Dr. Yayo Gregg Potassium [Moles/Vol] 4.4 mmol/L Normal 3.5-5.1 [facility] Comment on above: Performed By: #### I MMUNGL #### [facility] [address] [place] [address] Dr. Yayo Gregg Sodium [Moles/Vol] 133 mmol/L Critically low 136-145 [facility] Comment on above: Performed By: #### I MMUNGL #### [facility] [address] [place] [address] Dr. Yyao Gregg Urea nitrogen [Mass/Vol] 16.0 mg/dL Normal 7.0-18.0 [facility] Comment on above: Performed By: #### I MMUNGL #### [facility] [address] [place] [address] Dr. Yayo Gregg Urea nitrogen/Creatinine [Mass ratio] 15.1 mg/mg Normal [facility] Comment on above: Performed By: #### I MMUNGL #### [facility] [address] [place] [address] Dr. Yayo Bliss PROTEIN SERUMon 05-04-2022 Protein [Mass/Vol] 6.0 g/dL Critically low 6.4-8.2 [facility] Comment on above: Performed By: #### I MMUNGL #### [facility] [address] [place] [address] Dr. Yaoy Gregg TSHon 05-04-2022 TSH 1.715 uIU/mL Normal 0.358-3.740 [facility] Comment on above: Performed By: #### I MMUNGL #### [facility] [address] [place] [address] Dr. Yayo Gregg CBC AUTO DIFFon 03-26-2022 BASO # 0.1 103/ul Normal 0.0-0.1 [facility] Comment on above: Performed By: #### C BC #### [facility] [address] [place] [address] Dr. Yayo Gregg Basophils/100 WBC (Bld) 1.0 % Normal 0.2-2.0 [facility] Comment on above: Performed By: #### C BC #### [facility] [address] [place] [address] Dr. Yayo Gregg EO # 0.8 103/ul Critically high 0.0-0.7 [facility] Comment on above: Performed By: #### C BC #### [facility] [address] [place] [address] Dr. Yayo Gregg Eosinophils/100 WBC (Bld) 7.6 % Critically high 0.9-7.0 [facility] Comment on above: Performed By: #### C BC #### [facility] [address] [place] [address] Dr. Yayo Gregg Erythrocyte distribution width (RBC) [Ratio] 15.1 % Critically high 11.0-15.0 [facility] Comment on above: Performed By: #### C BC #### [facility] [address] [address] [address] Yayo Gregg Hematocrit (Bld) [Volume fraction] 32.0 % Critically low 36.0-48.0 [facility] Comment on above: Performed By: #### C BC #### [facility] [address] [address] [address] Yayo Gregg Hemoglobin (Bld) [Mass/Vol] 10.4 g/dL Critically low 12.0-16.0 [facility] Comment on above: Performed By: #### C BC #### [facility] [address] [place] [address] Dr. Yayo Gregg IG # 0.05 10e3/ul Critically high 0.00-0.03 [facility] Comment on above: Performed By: #### C BC #### [facility] [address] [place] [address] Dr. Yayo Gregg IG % 0.5 % Normal 0.0-0.5 [facility] Comment on above: Performed By: #### C BC #### [facility] [address] [place] [address] Dr. Yayo Gregg LYMPH # 2.9 103/ul Normal 1.2-3.8 [facility] Comment on above: Performed By: #### C BC #### [facility] [address] [place] [address] Dr. Yayo Gregg Lymphocytes/100 WBC (Bld) 27.7 % Normal 20.5-60.0 [facility] Comment on above: Performed By: #### C BC #### [facility] [address] [place] [address] Dr. Yayo Gregg MANUAL DIFF REQ NO Normal [facility] Comment on above: Performed By: #### C BC #### [facility] [address] [place] [address] Dr. Yayo Gregg MCH (RBC) [Entitic mass] 26.5 pg Critically low 26.7-34.0 [facility] Comment on above: Performed By: #### C BC #### [facility] [address] [address] [address] Yayo Gregg MCHC (RBC) [Mass/Vol] 32.5 g/dL Normal 29.9-35.2 [facility] Comment on above: Performed By: #### C BC #### [facility] [id number] Yayo Gregg MCV (RBC) [Entitic vol] 81.4 fL Normal 81.0-99.0 [facility] Comment on above: Performed By: #### C BC #### [facility] [address] [address] [address] Yayo Gregg MONO # 1.3 103/ul Critically high 0.3-0.8 [facility] Comment on above: Performed By: #### C BC #### [facility] [address] [place] [address] Dr. Yayo Gregg Monocytes/100 WBC (Bld) 12.5 % Critically high 1.7-12.0 [facility] Comment on above: Performed By: #### C BC #### [facility] [address] [place] [address] Dr. Yayo Gregg NEUT # 5.2 103/ul Normal 1.4-6.5 [facility] Comment on above: Performed By: #### C BC #### [facility] [address] [place] [address] Dr. Yayo Gregg Neutrophils/100 WBC (Bld) 50.7 % Normal 43.0-75.0 [facility] Comment on above: Performed By: #### C BC #### [facility] [address] [place], [place] [id number] Dr. Yayo Gregg Platelet mean volume (Bld) [Entitic vol] 9.6 fL Normal 9.5-13.5 [facility] Comment on above: Performed By: #### C BC #### [facility] [address] [place] [address] Dr. Yayo Gregg PLT 409 103/ul Normal 150-450 [facility] Comment on above: Performed By: #### C BC #### [facility] [address] [place] [address] Dr. Yayo Gregg RBC 3.93 106/ul Critically low 4.20-5.40 [facility] Comment on above: Performed By: #### C BC #### [facility] [address] [place] [address] Dr. Yayo Gregg WBC 10.3 103/ul Normal 4.0-11.0 [facility] Comment on above: Performed By: #### C BC #### [facility] [address] [place] [address] Dr. Yayo Gregg FERRITINon 03-26-2022 Ferritin [Mass/Vol] 22.0 ng/mL Normal 8.0-252.0 [facility] Comment on above: Performed By: #### I MMUNGL #### [facility] [address] [place] [address] Dr. Yayo Gregg CBC AUTO DIFFon 02-09-2022 BASO # 0.1 103/ul Normal 0.0-0.1 [facility] Comment on above: Performed By: #### C BC #### [facility] [address] [place] [address] Dr. Yayo Gregg Basophils/100 WBC (Bld) 0.7 % Normal 0.2-2.0 [facility] Comment on above: Performed By: #### C BC #### [facility] [address] [place] [address] Dr. Yayo Gregg EO # 0.9 103/ul Critically high 0.0-0.7 [facility] Comment on above: Performed By: #### C BC #### [facility] [address] [place] [address] Dr. Yayo Gregg Eosinophils/100 WBC (Bld) 7.5 % Critically high 0.9-7.0 [facility] Comment on above: Performed By: #### C BC #### [facility] [address] [place] [address] Dr. Yayo Gregg Erythrocyte distribution width (RBC) [Ratio] 15.1 % Critically high 11.0-15.0 [facility] Comment on above: Performed By: #### C BC #### [facility] [address] [address] [address] Yayo Gregg Hematocrit (Bld) [Volume fraction] 32.5 % Critically low 36.0-48.0 [facility] Comment on above: Performed By: #### C BC #### [facility] [address] [address] [address] Yayo Gregg Hemoglobin (Bld) [Mass/Vol] 10.9 g/dL Critically low 12.0-16.0 [facility] Comment on above: Performed By: #### C BC #### [facility] [address] [place] [address] Dr. Yayo Gregg IG # 0.16 10e3/ul Critically high 0.00-0.03 [facility] Comment on above: Performed By: #### C BC #### [facility] [address] [place] [address] Dr. Yayo Gregg IG % 1.3 % Critically high 0.0-0.5 [facility] Comment on above: Performed By: #### C BC #### [facility] [address] [place] [address] Dr. Yayo Gregg LYMPH # 2.9 103/ul Normal 1.2-3.8 [facility] Comment on above: Performed By: #### C BC #### [facility] [address] [place] [address] Dr. Yayo Gregg Lymphocytes/100 WBC (Bld) 24.0 % Normal 20.5-60.0 [facility] Comment on above: Performed By: #### C BC #### [facility] [address] [place] [address] Dr. Yayo Gregg MANUAL DIFF REQ NO Normal [facility] Comment on above: Performed By: #### C BC #### [facility] [address] [place] [address] Dr. Yayo Gregg MCH (RBC) [Entitic mass] 27.2 pg Normal 26.7-34.0 [facility] Comment on above: Performed By: #### C BC #### [facility] [address] [address] [address] Yayo Gregg MCHC (RBC) [Mass/Vol] 33.5 g/dL Normal 29.9-35.2 [facility] Comment on above: Performed By: #### C BC #### [facility] [id number] Yayo Gregg MCV (RBC) [Entitic vol] 81.0 fL Normal 81.0-99.0 [facility] Comment on above: Performed By: #### C BC #### [facility] [address] [address] [address] Yayo Gregg MONO # 1.6 103/ul Critically high 0.3-0.8 [facility] Comment on above: Performed By: #### C BC #### [facility] [address] [place] [address] Dr. Yayo Gregg Monocytes/100 WBC (Bld) 13.4 % Critically high 1.7-12.0 [facility] Comment on above: Performed By: #### C BC #### [facility] [address] [place] [address] Dr. Yayo Gregg NEUT # 6.3 103/ul Normal 1.4-6.5 [facility] Comment on above: Performed By: #### C BC #### [facility] [address] [place] [address] Dr. Yayo Gregg Neutrophils/100 WBC (Bld) 53.1 % Normal 43.0-75.0 [facility] Comment on above: Performed By: #### C BC #### [facility] [id number] Yayo Gregg Platelet mean volume (Bld) [Entitic vol] 9.4 fL Critically low 9.5-13.5 [facility] Comment on above: Performed By: #### C BC #### [facility] [address] [place] [address] Dr. Yayo Gregg PLT 426 103/ul Normal 150-450 [facility] Comment on above: Performed By: #### C BC #### [facility] [address] [address] [address] Yayo Gregg RBC 4.01 106/ul Critically low 4.20-5.40 [facility] Comment on above: Performed By: #### C BC #### [facility] [address] [place] [address] Dr. Yayo Gregg WBC 11.9 103/ul Critically high 4.0-11.0 [facility] Comment on above: Performed By: #### C BC #### [facility] [address] [place] [address] Dr. Yayo Gregg FERRITINon 02-09-2022 Ferritin [Mass/Vol] 36.0 ng/mL Normal 8.0-252.0 [facility] Comment on above: Performed By: #### V ITB12, FETIBC, FERR #### [facility] [address] [place] [address] Dr. Yayo Gregg IRON AND TIBCon 02-09-2022 % SATURATION 5.2 % Normal [facility] Comment on above: Performed By: #### V ITB12, FETIBC, FERR #### [facility] [address] [place] [address] Dr. Yayo Gregg Iron [Mass/Vol] 16.0 ug/dL Critically low 50.0-170.0 [facility] Comment on above: Performed By: #### V ITB12, FETIBC, FERR #### [facility] [address] [place] [address] Dr. Yayo Gregg TIBC DIRECT 305.0 ug/dL Normal 250.0-450.0 [facility] Comment on above: Performed By: #### V ITB12, FETIBC, FERR #### [facility] [address] [place] [address] Dr. Yayo Gregg VITAMIN B12on 02-09-2022 Cobalamin (Vitamin B12) [Mass/Vol] 819.0 pg/mL Normal 193.0-986.0 [facility] Comment on above: Performed By: #### V ITB12, FETIBC, FERR #### [facility] [address] [place] [address] Dr. Yayo Gregg BNPon 01-27-2022 Natriuretic peptide B (Bld) [Mass/Vol] 270.0 pg/mL Normal <=1,800.0 [facility] Comment on above: Performed By: #### I MMUNGL #### [facility] [address] [address] [address] Yayo Gregg CARDIAC TARAN ADMITon 022 CK [Catalytic activity/Vol] 143 U/L Normal 26-192 [facility] Comment on above: Performed By: #### I MMUNGL #### [facility] [address] [address] [address] Yayo Gregg CK.MB [Mass/Vol] 2.66 ng/mL Normal <=3.60 [facility] Comment on above: Performed By: #### I MMUNGL #### [facility] [address] [place] [address] Dr. Yayo Gregg HSTROP 4.0 pg/mL Normal 4.0-51.3 [facility] Comment on above: Result Comment: CUT- OFF POINTS HAVE BEEN ESTABLISHED BASED ON THE FOURTH UNIVERSAL DEFINITIONS OF MYOCARDIAL INFARCTION. THE UPPER REFERENCE LIMIT (URL) OF TROPONIN, DEFINED THE 99TH PERCENTILE OF cTnI DISTRIBUTION IN A REFERENCE POPULATION, HAS BEEN CONFIRMED THE DECISION THRESHOLD FOR [place] DIAGNOSIS. Performed By: #### I MMUNGL #### [facility] [address] [place] [address] Dr. Yayo Gregg CARA 113 ng/mL Critically high 9-82 [facility] Comment on above: Performed By: #### I MMUNGL #### [facility] [address] [address] [address] Yayo Gregg CBC AUTO DIFFon 01-27-2022 BASO # 0.1 103/ul Normal 0.0-0.1 [facility] Comment on above: Performed By: #### C BC #### [facility] [address] [address] [address] Yayo Gregg Basophils/100 WBC (Bld) 0.7 % Normal 0.2-2.0 [facility] Comment on above: Performed By: #### C BC #### [facility] [address] [address] [address] Yayo Gregg EO # 1.1 103/ul Critically high 0.0-0.7 [facility] Comment on above: Performed By: #### C BC #### [facility] [address] [address] [address] Yayo Gregg Eosinophils/100 WBC (Bld) 7.3 % Critically high 0.9-7.0 [facility] Comment on above: Performed By: #### C BC #### [facility] [address] [place] [address] Dr. Yayo Gregg Erythrocyte distribution width (RBC) [Ratio] 13.8 % Normal 11.0-15.0 [facility] Comment on above: Performed By: #### C BC #### [facility] [address] [place] [address] Dr. Yayo Gregg Hematocrit (Bld) [Volume fraction] 34.4 % Critically low 36.0-48.0 [facility] Comment on above: Performed By: #### C BC #### [facility] [address] [place] [address] Dr. Yayo Gregg Hemoglobin (Bld) [Mass/Vol] 11.3 g/dL Critically low 12.0-16.0 [facility] Comment on above: Performed By: #### C BC #### [facility] [address] [place] [address] Dr. Yayo Gregg IG # 0.09 10e3/ul Critically high 0.00-0.03 [facility] Comment on above: Performed By: #### C BC #### [facility] [address] [place] [address] Dr. Yayo Gregg IG % 0.6 % Critically high 0.0-0.5 [facility] Comment on above: Performed By: #### C BC #### [facility] [address] [place] [address] Dr. Yayo Gregg LYMPH # 2.5 103/ul Normal 1.2-3.8 [facility] Comment on above: Performed By: #### C BC #### [facility] [address] [place] [address] Dr. Yayo Gregg Lymphocytes/100 WBC (Bld) 16.6 % Critically low 20.5-60.0 [facility] Comment on above: Performed By: #### C BC #### [facility] [address] [place] [address] Dr. Yayo Gregg MANUAL DIFF REQ NO Normal [facility] Comment on above: Performed By: #### C BC #### [facility] [address] [place] [address] Dr. Yayo Gregg MCH (RBC) [Entitic mass] 26.7 pg Normal 26.7-34.0 [facility] Comment on above: Performed By: #### C BC #### [facility] [address] [place] [address] Dr. Yayo Gregg MCHC (RBC) [Mass/Vol] 32.8 g/dL Normal 29.9-35.2 [facility] Comment on above: Performed By: #### C BC #### [facility] [address] [place] [address] Dr. Yayo Gregg MCV (RBC) [Entitic vol] 81.1 fL Normal 81.0-99.0 [facility] Comment on above: Performed By: #### C BC #### [facility] [address] [place] [address] Dr. Yayo Gregg MONO # 2.1 103/ul Critically high 0.3-0.8 [facility] Comment on above: Performed By: #### C BC #### [facility] [address] [place] [address] Dr. Yayo Gregg Monocytes/100 WBC (Bld) 14.0 % Critically high 1.7-12.0 [facility] Comment on above: Performed By: #### C BC #### [facility] [address] [place] [address] Dr. Yayo Gregg NEUT # 9.1 103/ul Critically high 1.4-6.5 [facility] Comment on above: Performed By: #### C BC #### [facility] [address] [address] [address] Yayo Gregg Neutrophils/100 WBC (Bld) 60.8 % Normal 43.0-75.0 [facility] Comment on above: Performed By: #### C BC #### [facility] [address] [address] [address] Yayo Gregg Platelet mean volume (Bld) [Entitic vol] 10.2 fL Normal 9.5-13.5 [facility] Comment on above: Performed By: #### C BC #### [facility] [address] [place] [address] Dr. Yayo Gregg PLT 455 103/ul Critically high 150-450 [facility] Comment on above: Performed By: #### C BC #### [facility] [address] [place] [address] Dr. Yayo Gregg RBC 4.24 106/ul Normal 4.20-5.40 [facility] Comment on above: Performed By: #### C BC #### [facility] [address] [address] [address] Yayo Gregg WBC 14.9 103/ul Critically high 4.0-11.0 [facility] Comment on above: Performed By: #### C BC #### [facility] [address] [place] [address] Dr. Yayo Gregg Covid-19 PCR ([facility])on 01-09 SARS-CoV-2 (COVID-19) RNA CHANTALE+probe Ql (Unsp spec) Not detected Normal NOT DETECTED [facility] Comment on above: Result Comment: [...] for this test is supported by the [place] of Health and Human Service's declaration that [...] Performed By: #### C BC #### [facility] [address] [place] [address] Dr. Yayo Gregg PROF 14(COMP METB)on 022 Albumin [Mass/Vol] 3.0 g/dL Critically low 3.4-5.0 [facility] Comment on above: Performed By: #### I MMUNGL #### [facility] [address] [place] [address] Dr. Yayo Gregg Albumin/Globulin [Mass ratio] 0.9 {ratio} Normal [facility] Comment on above: Performed By: #### I MMUNGL #### [facility] [address] [place] [address] Dr. Yayo Gregg ALP [Catalytic activity/Vol] 95 U/L Normal 46-116 [facility] Comment on above: Performed By: #### I MMUNGL #### [facility] [address] [place] [address] Dr. Yayo Gregg ALT [Catalytic activity/Vol] 28 U/L Normal 14-59 [facility] Comment on above: Performed By: #### I MMUNGL #### [facility] [address] [place] [address] Dr. Yayo Gregg Anion gap [Moles/Vol] 11.9 mmol/L Normal [facility] Comment on above: Performed By: #### I MMUNGL #### [facility] [address] [place] [address] Dr. Yayo Gregg AST [Catalytic activity/Vol] 24 U/L Normal 15-37 [facility] Comment on above: Performed By: #### I MMUNGL #### [facility] [address] [place] [address] Dr. Yayo Gregg Bilirubin [Mass/Vol] 0.3 mg/dL Normal 0.2-1.0 [facility] Comment on above: Performed By: #### I MMUNGL #### [facility] [address] [place] [address] Dr. Yayo Gregg Calcium [Mass/Vol] 8.8 mg/dL Normal 8.5-10.1 [facility] Comment on above: Performed By: #### I MMUNGL #### [facility] [address] [place] [address] Dr. Yayo Gregg Chloride [Moles/Vol] 98 mmol/L Normal 98-107 [facility] Comment on above: Performed By: #### I MMUNGL #### [facility] [address] [place] [address] Dr. Yayo Gregg CO2 [Moles/Vol] 24.6 mmol/L Normal 21.0-32.0 [facility] Comment on above: Performed By: #### I MMUNGL #### [facility] [address] [place] [address] Dr. Yayo Gregg Creatinine [Mass/Vol] 0.91 mg/dL Normal 0.55-1.02 [facility] Comment on above: Performed By: #### I MMUNGL #### [facility] [address] [place] [address] Dr. Yayo Gregg EGFR-AF BAR[place]IAN >60 Normal >=60 [facility] Comment on above: Performed By: #### I MMUNGL #### [facility] [address] [place] [address] Dr. Yayo Gregg EGFR-NON AF [place] 59 mL/min/1.73m2 Critically low >=60 [facility] Comment on above: Performed By: #### I MMUNGL #### [facility] [address] [place] [address] Dr. Yayo Gregg Globulin (S) [Mass/Vol] 3.3 g/dL Normal [facility] Comment on above: Performed By: #### I MMUNGL #### [facility] [address] [place] [address] Dr. Yayo Gregg Glucose [Mass/Vol] 95 mg/dL Normal 74-106 [facility] Comment on above: Performed By: #### I MMUNGL #### [facility] [address] [place] [address] Dr. Yayo Gregg Potassium [Moles/Vol] 4.5 mmol/L Normal 3.5-5.1 [facility] Comment on above: Performed By: #### I MMUNGL #### [facility] [address] [place] [address] Dr. Yayo Gregg Protein [Mass/Vol] 6.3 g/dL Critically low 6.4-8.2 [facility] Comment on above: Performed By: #### I MMUNGL #### [facility] [address] [place] [address] Dr. Yayo Gregg Sodium [Moles/Vol] 130 mmol/L Critically low 136-145 [facility] Comment on above: Performed By: #### I MMUNGL #### [facility] [address] [place] [address] Dr. Yayo Gregg Urea nitrogen [Mass/Vol] 12.0 mg/dL Normal 7.0-18.0 [facility] Comment on above: Performed By: #### I MMUNGL #### [facility] [address] [place] [address] Dr. Yayo Gregg Urea nitrogen/Creatinine [Mass ratio] 13.2 mg/mg Normal [facility] Comment on above: Performed By: #### I MMUNGL #### [facility] [address] [place] [address] Dr. Yayo Gregg PROTIMEon 01-27-2022 INR Coag (PPP) [Relative time] 0.96 {INR} Normal [facility] Comment on above: Performed By: #### I MMUNGL #### [facility] [address] [place] [address] Dr. Yayo Gregg INR GUIDELINES SEE BELOW Normal [facility] Comment on above: Result Comment: ASHLEY RED INR: 2.0 - 3.0 CONDITIONS NOT LISTED BELOW 2.5 - 3.5 FOR PROSTHETIC HEART VALVE REPLACEMENT 2.5 - 3.5 RECURRENT THROMBOSIS Performed By: #### I MMUNGL #### [facility] [address] [place], [place] [address] Dr. Yayo Gregg PT Coag (PPP) [Time] 10.4 s Normal 9.0-11.6 [facility] Comment on above: Performed By: #### I MMUNGL #### [facility] [address] [place] [address] Dr. Yaoy Gregg PTTon 01-27-2022 aPTT Coag (Bld) [Time] 31.6 s Normal 22.3-36.2 [facility] Comment on above: Performed By: #### I MMUNGL #### [facility] [address] [place] [address] Dr. Yayo Gregg TROPONIN, HIGH SENSITIVITYon 01-27-2022 HSTROP 4.7 pg/mL Normal 4.0-51.3 [facility] Comment on above: Result Comment: CUT- OFF POINTS HAVE BEEN ESTABLISHED BASED ON THE FOURTH UNIVERSAL DEFINITIONS OF MYOCARDIAL INFARCTION. THE UPPER REFERENCE LIMIT (URL) OF TROPONIN, DEFINED THE 99TH PERCENTILE OF cTnI DISTRIBUTION IN A REFERENCE POPULATION, HAS BEEN CONFIRMED THE DECISION THRESHOLD FOR [place] DIAGNOSIS. Performed By: #### H STROPN #### [facility] [address] [place] [address] Dr. Yayo Gregg XR CHEST 1 Von [...] suggestive of COPD. Electronically authenticated by: ANTHONY BAEZ Date: 2022-01-27 11:47 Normal [facility] XR LSPINE 2_3 VIEWSon 2021 XR LSPINE [...] BENJAMIN GUNN Date: 2021-12-18 14:19 Normal [facility] BASIC METABOLIC PANEL(BMP)on 01-06-2018 Anion gap 12 mmol/L Normal 9-18 [facility] Comment on above: Performed By: #### C SHARITA, ZCBCGR ####MAIN LABCLIA:[id number] [facility] [place] [address] BUN (urea nitrogen) 17 mg/dL Normal 8-23 [facility] Comment on above: Performed By: #### C SHARITA, ZCBCGR ####MAIN LABCLIA:[id number] [facility] [place] [address] BUN/Creatinine Ratio 22.1 mg/mg Normal [facility] Comment on above: Performed By: #### C SHARITA, ZCBCGR ####MAIN LABCLIA:[id number] [facility] [place] [address] Calcium 7.9 mg/dL Low 8.8-10.2 [facility] Comment on above: Performed By: #### C SHARITA, ZCBCGR ####MAIN LABCLIA:[id number] [facility] [place] [address] Chloride 101 mmol/L Normal 98-107 [facility] Comment on above: Performed By: #### C SHARITA, ZCBCGR ####MAIN LABCLIA:[id number] [facility] [place] [address] CO2 24 mmol/L Normal 22-29 [facility] Comment on above: Performed By: #### C SHARITA, ZCBCGR ####MAIN LABCLIA:[id number] [facility] [place] [address] Creatinine 0.77 mg/dL Normal 0.50-0.90 [facility] Comment on above: Performed By: #### C SHARITA, ZCBCGR ####MAIN LABCLIA:[id number] [place] [address] eGFR (MDRD) 77 /1.73 m2 Normal >60 mL/min [facility] Comment on above: Result Comment: Norm al RangeStage Description:1 Normal or Increased GFR >=902 Mild Decrease in GFR 60-903 Moderately Decreased GFR 30-594 Severely Decreased GFR 15-295 Kidney Failure <15 Performed By: #### VAMSI RUFFGR ####MAIN LABCLIA:[id number] [place] [address] Glucose mass conc 89 mg/dL Normal 74-109 [facility] Comment on above: Performed By: #### VAMSI RUFFGR ####MAIN LABCLIA:[id number] [place] [address] Potassium molar conc 4.4 mmol/L Normal 3.5-5.1 [facility] Comment on above: Performed By: #### VAMSI RUFFGR ####MAIN LABCLIA:[id number] [place] [address] Sodium 133 mmol/L Low 136-145 [facility] Comment on above: Performed By: #### VAMSI RUFFGR ####MAIN LABCLIA:[id number] [place] [address] CBC/DIFF GROUPon 01-06-2018 Anisocytosis presence 1+ Normal [facility] Comment on above: Performed By: #### AMANDA RUFFCGR ####MAIN LABCLIA:[id number] [place] [address] HYPOCHROMASIA 1+ Normal [facility] Comment on above: Performed By: #### AMANDA RUFFCGR ####MAIN LABCLIA:[id number] [place] [address] NORMOCHROMIC NO Normal [facility] Comment on above: Performed By: #### VAMSI RUFFGR ####MAIN LABCLIA:[id number] [place] [address] NORMOCYTIC NO Normal [facility] Comment on above: Performed By: #### C SHARITA ZCBCGR ####MAIN LABCLIA:[id number] [facility] [place] [address] Platelets NORMAL Normal [facility] Comment on above: Performed By: #### C SHARITA, ZCBCGR ####MAIN LABCLIA:[id number] [facility] [place] [address] BAND NEUTROPHILS #(MANUAL) 152 /cmm Normal <648 [facility] Comment on above: Performed By: #### C SHARITA ZCBCGR ####MAIN LABCLIA:[id number] [facility] [place] [address] Eosinophils 456 /cmm High <432 [facility] Comment on above: Performed By: #### C SHARITA ZCBCGR ####MAIN LABCLIA:[id number] [facility] [place] [address] Eosinophils/100 leukocytes 6 % High <4 [facility] Comment on above: Performed By: #### Vladimir SHERIFF ZCBCGR ####MAIN LABCLIA:[id number] [facility] [place] [address] Lymphocytes 1748 /cmm Normal 960-[facility] Comment on above: Performed By: #### Vladimir SHERIFF ZCBCGR ####MAIN LABCLIA:[id number] [facility] [place] [address] Lymphocytes/100 leukocytes 23 % Normal 20-44 [facility] Comment on above: Performed By: #### Vladimir SHERIFF ZCBCGR ####MAIN LABCLIA:[id number] [facility] [place] [address] METAMYELOCYTES #(MANUAL) 76 /cmm High 0 [facility] Comment on above: Performed By: #### Vladimir SHERIFF ZCBCGR ####MAIN LABCLIA:[id number] [facility] [place] [address] Metamyelocytes/100 leukocytes 1 % High 0 [facility] Comment on above: Performed By: #### Vladimir SHERIFF ZCBCGR ####MAIN LABCLIA:[id number] [facility] [place] [address] Monocytes 1292 /cmm High 96-972 [facility] Comment on above: Performed By: #### Vladimir SHERIFF ZCBCGR ####MAIN LABCLIA:[id number] [facility] [place] [address] Monocytes/100 leukocytes 17 % High 2-9 [facility] Comment on above: Performed By: #### Vladimir SHERIFF ZCBCGR ####MAIN LABCLIA:[id number] [facility] [place] [address] Neutrophils 3876 /cmm Normal 6680-6996 [facility] Comment on above: Performed By: #### Vladimir SHERIFF ZCBCGR ####MAIN LABCLIA:[id number] [place] [address] Neutrophils band/100 leukocytes 2 % Normal <6 [facility] Comment on above: Performed By: #### Vladimir SHERIFF ZCBCGR ####MAIN LABCLIA:[id number] [place] [address] Neutrophils/100 WBC Auto (Bld) 51 % Normal 50-70 [facility] Comment on above: Performed By: #### Vladimir SHERIFF ZCBCGR ####MAIN LABCLIA:[id number] [place] [address] TOTAL CELLS COUNTED 100 Normal [facility] Comment on above: Performed By: #### Vladimir SHERIFF ZCBCGR ####MAIN LABCLIA:[id number] [place] [address] Erythrocyte distribution width Auto Ratio (RBC) 13.0 % Normal 11.5-14.5 [facility] Comment on above: Performed By: #### Vladimir SHERIFF ZCBCGR ####MAIN LABCLIA:[id number] [facility] [place] [address] Erythrocytes (RBC) 3.49 10 6/cmm Low 4.20-5.40 [facility] Comment on above: Performed By: #### Vladimir SHERIFF ZCBCGR ####MAIN LABCLIA:[id number] [facility] [place] [address] Hematocrit (HCT) 29.4 % Low 38.0-47.0 [facility] Comment on above: Performed By: #### C SHARITA, ZCBCGR ####MAIN LABCLIA:[id number] [facility] [place] [address] Hemoglobin mass conc (Bld) 10.1 g/dL Low 12.0-16.4 [facility] Comment on above: Performed By: #### C SHARITA, ZCBCGR ####MAIN LABCLIA:[id number] [facility] [place] [address] MCH 34.5 g/dL Normal 32.0-36.0 [facility] Comment on above: Performed By: #### C SHARITA ZCBCGR ####MAIN LABCLIA:[id number] [facility] [place] [address] MCH 29.1 pg Normal 27.0-31.0 [facility] Comment on above: Performed By: #### C SHARITA, ZCBCGR ####MAIN LABCLIA:[id number] [facility] [place] [address] MCV 84.3 fL Normal 80.0-96.0 [facility] Comment on above: Performed By: #### C SHARITA, ZCBCGR ####MAIN LABCLIA:[id number] [facility] [place] [address] Platelets 359 10 3/cmm Normal 130-400 [facility] Comment on above: Performed By: #### C SHARITA ZCBCGR ####MAIN LABCLIA:[id number] [facility] [place] [address] WBC (Leukocytes) 7.6 10 3/cmm Normal 4.8-10.8 [facility] Comment on above: Performed By: #### C SHARITA, ZCBCGR ####MAIN LABCLIA:[id number] [facility] [place] [address] FREE T4 (FREE THYROXINE)on 0 01-06-2018 Thyroxine (T4) free 2.46 ng/dL High 0.93-1.7 [facility] Comment on above: Performed By: #### C , ZCBCGR ####MAIN LABCLIA:[id number] [place] [address] IM Progress Noteon 8 IM Progress Note [address] [place], [place] [address] TANGELA MOSS [id number] Donnell Barton MD 4W / 4106-B 1940 Report #: [id number] Hospitalist Progress Note Date/Time: 01/06/18805 Report Status: [...] fine and wants to go back to [place]. Her will be driving. - Reviewed laboratory [...] have her follow-up with her physician in [place]. (2) Hyponatremia Status: Improved Plan: Sodium of 133-asymptomatic urine sodium slightly elevated at 35. (3) Essential hypertension Status: Stable (4) Hypothyroidism Plan: Suppressed TSH, her physician from [place] just called her in down dosed her [...] 01/06/18816 Electronically Cosigned By: Cosigned Date/Time: Normal [facility] T3 FREEon 01-06-2018 Triiodothyronine (T3) free 5.92 pg/mL High 2.0-4.4 [facility] Comment on above: Performed By: #### Vladimir SHERIFF ZCBCGR ####MAIN LABCLIA:[id number] [place] [address] CBC/DIFF GROUPon 01-05-2018 NORMOCHROMIC YES Normal [facility] Comment on above: Performed By: #### C SHARITA ZCBCGR ####MAIN LABCLIA:[id number] [place] [address] NORMOCYTIC YES [facility] Comment on above: Performed By: #### C SHARITA ZCBCGR ####MAIN LABCLIA:[id number] [place] [address] Platelets NORMAL Normal [facility] Comment on above: Performed By: #### C SHARITA ZCBCGR ####MAIN LABCLIA:[id number] [facility] [place] [address] BAND NEUTROPHILS #(MANUAL) 414 /cmm Normal <648 [facility] Comment on above: Performed By: #### AMANDA RUFFCGR ####MAIN LABCLIA:[id number] [facility] [place] [address] Eosinophils 552 /cmm High <432 [facility] Comment on above: Performed By: #### Yaquelin RUFFCBCGR ####MAIN LABCLIA:[id number] [facility] [place] [address] Eosinophils/100 leukocytes 4 % Normal <4 [facility] Comment on above: Performed By: #### AMANDA RUFFCGR ####MAIN LABCLIA:[id number] [facility] [place] [address] Lymphocytes 690 /cmm Low 960-4752 [facility] Comment on above: Performed By: #### Yaquelin RUFFCBCGR ####MAIN LABCLIA:[id number] [facility] [place] [address] Lymphocytes/100 leukocytes 5 % Low 20-44 [facility] Comment on above: Performed By: #### VAMSI RUFFGR ####MAIN LABCLIA:[id number] [facility] [place] [address] Monocytes 1242 /cmm High 96-972 [facility] Comment on above: Performed By: #### Yaquelin RUFFCBCGR ####MAIN LABCLIA:[id number] [facility] [place] [address] Monocytes/100 leukocytes 9 % Normal 2-9 [facility] Comment on above: Performed By: #### VAMSI RUFFGR ####MAIN LABCLIA:[id number] [facility] [place] [address] Neutrophils 68689 /cmm High 1330-9204 [facility] Comment on above: Performed By: #### AMANDA RUFFCGR ####MAIN LABCLIA:[id number] [facility] [place] [address] Neutrophils band/100 leukocytes 3 % Normal <6 [facility] Comment on above: Performed By: #### AMANDA RUFFCGR ####MAIN LABCLIA:[id number] [facility] [place] [address] Neutrophils/100 WBC Auto (Bld) 79 % High 50-70 [facility] Comment on above: Performed By: #### VAMSI RUFFGR ####MAIN LABCLIA:[id number] [facility] [place] [address] TOTAL CELLS COUNTED 100 Normal [facility] Comment on above: Performed By: #### AMANDA RUFFCGR ####MAIN LABCLIA:[id number] [place] [address] Hematocrit (HCT) 36.0 % Low 38.0-47.0 [facility] Comment on above: Performed By: #### AMANDA RUFFCGR ####MAIN LABCLIA:[id number] [place] [address] Hemoglobin mass conc (Bld) 12.2 g/dL Normal 12.0-16.4 [facility] Comment on above: Performed By: #### VAMSI RUFFGR ####MAIN LABCLIA:[id number] [place] [address] MCH 28.6 pg Normal 27.0-31.0 [facility] Comment on above: Performed By: #### AMANDA RUFFCGR ####MAIN LABCLIA:[id number] [place] [address] MCV 84.1 fL Normal 80.0-96.0 [facility] Comment on above: Performed By: #### AMANDA RUFFCGR ####MAIN LABCLIA:[id number] [place] [address] WBC (Leukocytes) 13.8 10 3/cmm High 4.8-10.8 [facility] Comment on above: Performed By: #### AMANDA RUFFCGR ####MAIN LABCLIA:[id number] [place] [address] CHEST 2 VIEWSon 01-05-2018 CHEST [address] [phone]____ Pt Location: 4W/ ADM IN Pt #: [id number] MR #: [id number] DATE: 01/05/18 1236 ADM#: [id number] #: [id number] JUAN MOSS: 1940 Age/Sex: 77 / F REPORT STATUS: SignedORDERING PHYSICIAN: DAVID SalvadorRIDEONTE/PRIMARY PHYSICIAN: Doctor,No HISTO RY/REASON: CPCLINICAL HISTORY: Dizziness.TECHNICAL [...] JLECC: ROSY Salvador; Doctor,No; Donnell Barton MD [facility] COMPLETE BLOOD COUNTon 01-05 Erythrocyte distribution width Auto Ratio (RBC) 12.7 % Normal 11.5-14.5 [facility] Comment on above: Performed By: #### VAMSI RUFFGR ####MAIN LABCLIA:[id number] [place] [address] Erythrocytes (RBC) 4.28 10 6/cmm Normal 4.20-5.40 [facility] Comment on above: Performed By: #### VAMSI RUFFGR ####MAIN LABCLIA:[id number] [place] [address] MCH 34.0 g/dL Normal 32.0-36.0 [facility] Comment on above: Performed By: #### C BC, ZCBCGR ####MAIN LABCLIA:[id number] [facility] [place] [address] Platelets 423 10 3/cmm High 130-400 [facility] Comment on above: Performed By: #### C BC, ZCBCGR ####MAIN LABCLIA:[id number] [facility] [place] [address] COMPREHENSIVE METABOLIC PANE Umberto 01-05-2018 Alanine aminotransferase (ALT) 15 U/L Normal 0-33 [facility] Comment on above: Performed By: #### C MP, MG ####MAIN LABCLIA:[id number] [facility] [place] [address] Albumin 3.3 g/dL Normal 3.0-4.5 [facility] Comment on above: Performed By: #### C MP, MG ####MAIN LABCLIA:[id number] [facility] [place] [address] Albumin/Globulin Ratio 1.2 {ratio} Normal 1-1.4 [facility] Comment on above: Performed By: #### C MP, MG ####MAIN LABCLIA:[id number] [place] [address] Alkaline phosphatase (ALP) 76 U/L Normal 35-104 [facility] Comment on above: Performed By: #### C MP, MG ####MAIN LABCLIA:[id number] [facility] [place] [address] Anion gap 15 mmol/L Normal 9-18 [facility] Comment on above: Performed By: #### C MP, MG ####MAIN LABCLIA:[id number] [facility] [place] [address] Aspartate aminotransferase (AST) 16 U/L Normal 0-32 [facility] Comment on above: Performed By: #### C MP, MG ####MAIN LABCLIA:[id number] [facility] [place] [address] Bilirubin (total) 0.4 mg/dL Normal 0.2-1.2 [facility] Comment on above: Performed By: #### C MP, MG ####MAIN LABCLIA:[id number] [facility] [place] [address] BUN (urea nitrogen) 26 mg/dL High 8-23 [facility] Comment on above: Performed By: #### C MP, MG ####MAIN LABCLIA:[id number] [facility] [place] [address] BUN/Creatinine Ratio 22.2 mg/mg Normal [facility] Comment on above: Performed By: #### C MP, MG ####MAIN LABCLIA:[id number] [facility] [place] [address] Calcium 8.5 mg/dL Low 8.8-10.2 [facility] Comment on above: Performed By: #### C MP, MG ####MAIN LABCLIA:[id number] [facility] [place] [address] Chloride 90 mmol/L Low 98-107 [facility] Comment on above: Performed By: #### C MP, MG ####MAIN LABCLIA:[id number] [facility] [place] [address] CO2 26 mmol/L Normal 22-29 [facility] Comment on above: Performed By: #### C MP, MG ####MAIN LABCLIA:[id number] [facility] [place] [address] Creatinine 1.17 mg/dL High 0.50-0.90 [facility] Comment on above: Performed By: #### C MP, MG ####MAIN LABCLIA:[id number] [facility] [place] [address] eGFR (MDRD) 47 /1.73 m2 Low >60 mL/min [facility] Comment on above: Result Comment: Norm al RangeStage Description:1 Normal or Increased GFR >=902 Mild Decrease in GFR 60-903 Moderately Decreased GFR 30-594 Severely Decreased GFR 15-295 Kidney Failure <15 Performed By: #### C MP, MG ####MAIN LABCLIA:[id number] [facility] [place] [address] Globulin 2.7 g/dL Normal 2.3-3.5 [facility] Comment on above: Performed By: #### C MP, MG ####MAIN LABCLIA:[id number] [place] [address] Glucose mass conc 136 mg/dL High 74-109 [facility] Comment on above: Performed By: #### C MP, MG ####MAIN LABCLIA:[id number] [place] [address] Potassium molar conc 4.5 mmol/L Normal 3.5-5.1 [facility] Comment on above: Performed By: #### C MP, MG ####MAIN LABCLIA:[id number] [place] [address] Protein 6.0 g/dL Low 6.4-8.3 [facility] Comment on above: Performed By: #### C MP, MG ####MAIN LABCLIA:[id number] [place] [address] Sodium 126 mmol/L Low 136-145 [facility] Comment on above: Performed By: #### C MP, MG ####MAIN LABCLIA:[id number] [place] [address] CT [facility] 01-05-2018 CT HEAD WO [address] [phone]____ Pt Location: 4W/ ADM IN Pt RM#: [id number] MR #: [id number] DATE: 01/05/18 1236 ADM#: [id number] #: [id number] JANET MOSSOB: 1940 Age/Sex: 77 / F REPORT STATUS: SignedORDERING PHYSICIAN: STU Salvador/PRIMARY PHYSICIAN: Doctor,No HISTO RY/REASON: Dizziness, near syncopeCLINICAL [...] matter.REPORT# [id number] READ BY: Cielo Pacheco M.D. [id number] REPORT RELEASED BY: Cielo Pacheco M.D. 01/05/18 1502Transcribed Date/Time: 01/05/18 1339 PLPCC: ROSY Salvador; Doctor,No; Donnell Barton MD [facility] Emergency Room Visit Reporto n 01-05-2018 Emergency Room Visit Report [address] [id number] TANGELA MOSS 1940 (77 F) [id number] Helio Hoang 4W Report #: [id number] PCP: No Doctor Emergency Room Visit Report [...] reports feeling dizziness and near syncope at [facility]. Pt reports recent bronchitis that she [...] Allergy Mild Rash Verified 01/05/18 12:40 Antibiotics) Tvotgbe-Qqn-Qps Reductase Allergy Unknown Verified 01/05/18 12:40 Inhibitor [...] PO BID 01/05/18 01/05/18 raNITIdine HCl [Acid Big Data Admin] 150 mg PO BID 01/05/18 01/05/18 ROS [...] % (Manual) (<4) % Neutrophils # (Manual) (8220-9409) /cmm Band Neutrophils # (<648) /cmm Lymphocytes [...] Appearance Clear Urine pH 7.0 Ur Specific [place] <=1.005 Urine Protein Negative (NEGATIVE) Urine Glucose [...] (Manual) 4 (<4) % Neutrophils # (Manual) 31533 H (1400-6723) /cmm Band Neutrophils # 414 (<648) /cmm [...] Color Urine Appearance Urine pH Ur Specific [place] Urine Protein (NEGATIVE) Urine Glucose (UA) (NEGATIVE) [...] Troponin CONTINUOUS Routine Ca 01/05/18 16:08 Active MOISES Talavera, Thigh CONTIN Routine Ca 01/05/18 16:08 [...] an inhaler. This was obtained by the [facility] pharmacy in [facility]. 01/05/18 14:40 I discussed this patient with [...] By: Sohan Grover MD Cosigned Date/Time: 01/05/181904 [facility] History & Physicalon 018 History & Physical [address] [address] TANGELA MOSS 77 [id number] Donnell Barton MD 4W / 4106-B 1940 Report #: [id number] Admission Date: 01/05/18 History Physical Date/Time: 01/05/18 1530 Report Status: Signed HPI Date Seen: 01/05/18 Time Seen: 15:30 Seen By: Donnell Barton Reason for Visit: CP Ms. MOSS is a 77 year old female with a past medical history of essential hypertension, hypothyroidism, and GERD, and recently treated for a upper respiratory infection with prednisone and doxycycline presents with a presyncopal episode. Patient is visiting this area from [place] in [place] [...] asymptomatic. Evaluation emergency room consisted of a powerhouse helper which shows normal sinus rhythm, EKG shows [...] Allergy Mild Rash Verified 01/05/18 12:40 Antibiotics) Kfptojx-Wqh-Swb Reductase Allergy Unknown Verified 01/05/18 12:40 Inhibitor [...] PO BID 01/05/18 01/05/18 raNITIdine HCl [Acid Big Data Admin] 150 mg PO BID 01/05/18 01/05/18 Allergies [...] 1541 Electronically Cosigned By: Cosigned Date/Time: Normal [facility] MAGNESIUMon 01-05-2018 Magnesium 2.1 mg/dL Normal 1.6-2.6 [facility] Comment on above: Performed By: #### C MP, MG ####MAIN LABCLIA:[id number] [place] [address] SODIUM,URINE RANDOMon 2017 SODIUM,URINE RANDOM 35 mmol/L Normal [facility] Comment on above: Order Comment: COLLE CTED BY: Sherine Tenorio Result Comment: The reference range has not been established for this test. Performed By: #### C BC, ZCBCGR ####MAIN LABCLIA:[id number] [place] [address] THYROID STIMULATING HORMONEo n 01-05-2018 Thyroid stimulating hormone (TSH) 0.16 uIU/mL Low 0.27-4.20 [facility] Comment on above: Performed By: #### C BC, ZCBCGR ####MAIN LABCLIA:[id number] [place] [address] TROPONIN Ton 01-05-2018 Troponin T.cardiac mass conc ug/L Normal <0.010 [facility] Comment on above: Result Comment: Valu [...] Performed By: #### C BC, ZCBCGR ####MAIN LABCLIA:[id number] [place] [address] Troponin T.cardiac mass conc ug/L Normal <0.010 [facility] Comment on above: Result Comment: Valu [...] hours. Performed By: #### T ROPT ####MAIN LABCLIA:[id number] [place] [address] URINALYSISon 01-05-2018 UA APPEARANCE CLEAR Normal [facility] Comment on above: Order Comment: COLLE CTED BY: Johann acosta-MIDSTREAM Performed By: #### U A ####MAIN LABCLIA:[id number] [facility] [place] [address] UA BACTERIA NONE Normal NONE [facility] Comment on above: Order Comment: COLLE CTED BY: davedVOID-MIDSTREAM Performed By: #### U A ####MAIN LABCLIA:[id number] [facility] [place] [address] UA SQUAMOUS EPITHELIAL 0-2 Normal [facility] Comment on above: Order Comment: COLLE CTED BY: davedVOID-MIDSTREAM Performed By: #### U A ####MAIN LABCLIA:[id number] [place] [address] UA WBC 0-2 Normal 0-2 [facility] Comment on above: Order Comment: COLLE CTED BY: davedVOID-MIDSTREAM Performed By: #### U A ####MAIN LABCLIA:[id number] [place] [address] Urine, color YELLOW Normal [facility] Comment on above: Order Comment: COLLE CTED BY: davedVOID-MIDSTREAM Performed By: #### U A ####MAIN LABCLIA:[id number] [place] [address] Urine, erythrocytes 0-2 Normal 0-2 [facility] Comment on above: Order Comment: COLLE CTED BY: davedVOID-MIDSTREAM Performed By: #### U A ####MAIN LABCLIA:[id number] [facility] [place] [address] UA BILIRUBIN Negative Normal NEGATIVE [facility] Comment on above: Order Comment: COLLE CTED BY: davedVOID-MIDSTREAM Performed By: #### U A ####MAIN LABCLIA:[id number] [facility] [place] [address] UA BLOOD Negative Normal NEGATIVE [facility] Comment on above: Order Comment: COLLE CTED BY: davedVOID-MIDSTREAM Performed By: #### U A ####MAIN LABCLIA:[id number] [place] [address] UA LEUKOCYTE ESTERASE TRACE Normal NEGATIVE [facility] Comment on above: Order Comment: COLLE CTED BY: Tye acostaOID-MIDSTREAM Performed By: #### U A ####MAIN LABCLIA:[id number] [facility] [place] [address] UA NITRITES Negative Normal NEGATIVE [facility] Comment on above: Order Comment: COLLE CTED BY: Tye acostaOID-MIDSTREAM Performed By: #### U A ####MAIN LABCLIA:[id number] [facility] [place] [address] UA PH 7.0 Normal [facility] Comment on above: Order Comment: COLLE CTED BY: Tye acostaOID-MIDSTREAM Performed By: #### U A ####MAIN LABCLIA:[id number] [place] [address] UA PROTEIN Negative Normal NEGATIVE [facility] Comment on above: Order Comment: COLLE CTED BY: Tye acostaOID-MIDSTREAM Performed By: #### U A ####MAIN LABCLIA:[id number] [place] [address] UA SPECIFIC GRAVITY <=1.005 Normal [facility] Comment on above: Order Comment: COLLE CTED BY: Tye acostaOID-MIDSTREAM Performed By: #### U A ####MAIN LABCLIA:[id number] [place] [address] UA UROBILINOGEN 0.2 mg/dL Normal 0.0-1.0 [facility] Comment on above: Order Comment: COLLE CTED BY: Tye acostaOID-MIDSTREAM Performed By: #### U A ####MAIN LABCLIA:[id number] [facility] [place] [address] Urine, glucose Negative Normal NEGATIVE [facility] Comment on above: Order Comment: COLLE CTED BY: Tye acostaOID-MIDSTREAM Performed By: #### U A ####MAIN LABCLIA:[id number] [place] [address] Urine, ketones presence Negative Normal NEGATIVE [facility] Comment on above: Order Comment: COLLE CTED BY: Tye acostaOID-MIDSTREAM Performed By: #### U A ####MAIN LABCLIA:[id number] [facility] [place] [address] URINE SOURCE VOID-MIDSTREAM Normal [facility] Comment on above: Order Comment: COLLE CTED BY: Tye acostaOID-MIDSTREAM Performed By: #### U A ####MAIN LABCLIA:[id number] [place] [address] VASCULAR RISK PANELon 2017 Cholesterol 180 mg/dL Normal 0-199 [facility] Comment on above: Order Comment: Comme nts: Use blood from ED if available Performed By: #### C BC, ZCBCGR ####MAIN LABCLIA:[id number] [place] [address] HDL Cholesterol 42 mg/dL Low >65 [facility] Comment on above: Order Comment: Comme nts: Use blood from ED if available Performed By: #### C BC, ZCBCGR ####MAIN LABCLIA:[id number] [place] [address] LDL Cholesterol 98 mg/dL Normal <129 [facility] Comment on above: Order Comment: Comme nts: Use blood from ED if available Performed By: #### C BC, ZCBCGR ####MAIN LABCLIA:[id number] [place] [address] Triglyceride 202 mg/dL High 0-199 [facility] Comment on above: Order Comment: Comme nts: Use blood from ED if available Performed By: #### C BC, ZCBCGR ####MAIN LABCLIA:[id number] [facility] [place] [address] VLDL CHOLESTEROL 40 mg/dL Normal 5-40 [facility] Comment on above: Order Comment: Comme nts: Use blood from ED if available Performed By: #### C BC, ZCBCGR ####MAIN LABCLIA:[id number] [facility] [place] [address] Vital Signs Date Time Vital Sign Value Performing Clinician Facility 03-29-2024 08:54-0400 Body height 152.4 cm Christopher Genesis DO Work Phone: [facility] 03-29-2024 08:54-0400 Body mass index (BMI) [Ratio] 26.95 kg/m2 Christopher Genesis DO Work Phone: [facility] 03-29-2024 08:54-0400 Body weight 62.6 kg Christopher Genesis DO Work Phone: [facility] 03-29-2024 08:54-0400 Diastolic blood pressure 78 mm[Hg] Christopher Genesis DO Work Phone: [facility] 03-29-2024 08:54-0400 Systolic blood pressure 112 mm[Hg] Christopher Genesis DO Work Phone: [facility] 03-01-2024 14:02-0400 Body height 152.4 cm Christopher Genesis DO Work Phone: [facility] 03-01-2024 14:02-0400 Body mass index (BMI) [Ratio] 27.15 kg/m2 Christopher Genesis DO Work Phone: [facility] 03-01-2024 14:02-0400 Body weight 63.05 kg Christopher Genesis DO Work Phone: [facility] 03-01-2024 14:02-0400 Diastolic blood pressure 86 mm[Hg] Christopher Genesis DO Work Phone: [facility] 03-01-2024 14:02-0400 Systolic blood pressure 128 mm[Hg] Christopher Genesis DO Work Phone: [facility] 01-02-2024 11:39-0400 Body height 152.4 cm DO Kvng Ball Work Phone: [facility] 01-02-2024 11:39-0400 Body mass index (BMI) [Ratio] 26.6 kg/m2 DO Kvng Ball Work Phone: [facility] 01-02-2024 11:39-0400 Body weight 61.91 kg DO Kvng Ball Work Phone: [facility] 01-02-2024 11:39-0400 Diastolic blood pressure 85 mm[Hg] DO Kvng Ball Work Phone: [facility] 01-02-2024 11:39-0400 Heart rate 66 /min DO Kvng Ball Work Phone: [facility] 01-02-2024 11:39-0400 Respiratory rate 12 /min DO Kvng Ball Work Phone: [facility] 01-02-2024 11:39-0400 Systolic blood pressure 124 mm[Hg] DO Kvng Ball Work Phone: [facility] 05-27-2023 11:00-0500 Body height 152.4 cm Kvng Ball Other [facility] [employer] Other 05-27-2023 11:00-0500 Diastolic blood pressure 84 mm[Hg] Kvng Ball Other [facility] [employer] Other 05-27-2023 11:00-0500 Systolic blood pressure 124 mm[Hg] Kvng Ball Other [employer] Other 03-04-2023 13:45-0400 Body height 152.4 cm Kvng Ball Other [employer] Other 03-04-2023 13:45-0400 Body mass index (BMI) [Ratio] 28.47 kg/m2 Kvng Ball Other [employer] Other 03-04-2023 13:45-0400 Body weight 66.13 kg Kvng Ball Other [employer] Other 03-04-2023 13:45-0400 Diastolic blood pressure 80 mm[Hg] Kvng Ball Other [employer] Other 03-04-2023 13:45-0400 Respiratory rate 12 /min Kvng Ball Other [employer] Other 03-04-2023 13:45-0400 Systolic blood pressure 117 mm[Hg] Kvng Ball Other [employer] Other 02-22-2023 11:00-0400 Body height 152.4 cm Kvng Ball Other [employer] Other 02-22-2023 11:00-0400 Body mass index (BMI) [Ratio] 28.39 kg/m2 Kvng Ball Other [employer] Other 02-22-2023 11:00-0400 Body weight 65.95 kg Kvng Ball Other [employer] Other 02-22-2023 11:00-0400 Diastolic blood pressure 83 mm[Hg] Kvng Ball Other [employer] Other 02-22-2023 11:00-0400 Respiratory rate 12 /min Kvng Ball Other [employer] Other 02-22-2023 11:00-0400 Systolic blood pressure 132 mm[Hg] Kvng Ball Other [employer] Other 01-24-2023 09:18-0400 Diastolic blood pressure 72 mm[Hg] DO Kvng Ball Work Phone: [facility] 01-24-2023 09:18-0400 Heart rate 56 /min DO Kvng Ball Work Phone: [facility] 01-24-2023 09:18-0400 Respiratory rate 14 /min DO Kvng Ball Work Phone: [facility] 01-24-2023 09:18-0400 SaO2% (BldA) [Mass fraction] 98 % DO Kvng Ball Work Phone: [facility] 01-24-2023 09:18-0400 Systolic blood pressure 126 mm[Hg] DO Kvng Ball Work Phone: [facility] 01-24-2023 07:44-0400 Body height 154.94 cm DO Kvng Ball Work Phone: [facility] 01-24-2023 07:44-0400 Body temperature 97.8 [degF] DO Kvng Ball Work Phone: [facility] 01-24-2023 07:44-0400 Body weight 65.31 kg DO Kvng Ball Work Phone: [facility] 11-18-2022 12:00-0400 Body height 152.4 cm Kvng Ball Other [facility] [employer] Other 11-18-2022 12:00-0400 Body mass index (BMI) [Ratio] 28.74 kg/m2 Kvng Ball Other [facility] [employer] Other 11-18-2022 12:00-0400 Body weight 66.77 kg Kvng Ball Other [email or web address] Other 11-18-2022 12:00-0400 Diastolic blood pressure 82 mm[Hg] Kvng Ball Other [facility] [employer] Other 11-18-2022 12:00-0400 Respiratory rate 12 /min Kvng Ball Other [facility] [employer] Other 11-18-2022 12:00-0400 Systolic blood pressure 125 mm[Hg] Kvng Ball Other [employer] Other 10-28-2022 14:05-0400 Diastolic blood pressure 73 mm[Hg] DO Kvng Ball Work Phone: [facility] 10-28-2022 14:05-0400 Heart rate 60 /min DO Kvng Ball Work Phone: [facility] 10-28-2022 14:05-0400 Respiratory rate 18 /min DO Kvng Ball Work Phone: [facility] 10-28-2022 14:05-0400 SaO2% (BldA) [Mass fraction] 96 % DO Kvng Ball Work Phone: [facility] 10-28-2022 14:05-0400 Systolic blood pressure 117 mm[Hg] DO Kvng Ball Work Phone: [facility] 10-28-2022 11:42-0400 Body height 154.94 cm DO Kvng Ball Work Phone: [facility] 10-28-2022 11:42-0400 Body temperature 97.9 [degF] DO Kvng Ball Work Phone: [facility] 10-28-2022 11:42-0400 Body weight 65.77 kg DO Vkng Ball Work Phone: [facility] 10-12-2022 15:00-0400 Body height 152.4 cm Kvng Ball Other [facility] [employer] Other 10-12-2022 15:00-0400 Body mass index (BMI) [Ratio] 28.78 kg/m2 Kvng Ball Other [facility] [employer] Other 10-12-2022 15:00-0400 Body weight 66.86 kg Kvng Ball Other [facility] [employer] Other 10-12-2022 15:00-0400 Diastolic blood pressure 80 mm[Hg] Kvng Ball Other [facility] [employer] Other 10-12-2022 15:00-0400 Respiratory rate 12 /min Kvng Ball Other [email or web address] Other 10-12-2022 15:00-0400 Systolic blood pressure 116 mm[Hg] Kvng Ball Other [facility] [employer] Other 07-27-2022 14:38-0500 Body height 152.4 cm Mavis Santiago MD Work Phone: [facility] 07-27-2022 14:38-0500 Body temperature 98.1 [degF] Mavis Santiago MD Work Phone: [facility] 07-27-2022 14:38-0500 Body weight 66.5 kg Mavis Santiago MD Work Phone: [facility] 07-27-2022 14:38-0500 Diastolic blood pressure 72 mm[Hg] Mavis Santiago MD Work Phone: [facility] 07-27-2022 14:38-0500 Heart rate 64 /min Mavis Santiago MD Work Phone: [facility] 07-27-2022 14:38-0500 Respiratory rate 16 /min Mavis Santiago MD Work Phone: [facility] 07-27-2022 14:38-0500 SaO2% (BldA) [Mass fraction] 97 % Mavis Santiago MD Work Phone: [facility] 07-27-2022 14:38-0500 Systolic blood pressure 125 mm[Hg] Mavis Santiago MD Work Phone: [facility] 07-26-2022 09:19-0500 Diastolic blood pressure 69 mm[Hg] DO Kvng Ball Work Phone: [facility] 07-26-2022 09:19-0500 Heart rate 59 /min DO Kvng Ball Work Phone: [facility] 07-26-2022 09:19-0500 Respiratory rate 16 /min DO Kvng Ball Work Phone: [facility] 07-26-2022 09:19-0500 SaO2% (BldA) [Mass fraction] 98 % DO Kvng Ball Work Phone: [facility] 07-26-2022 09:19-0500 Systolic blood pressure 111 mm[Hg] DO Kvng Ball Work Phone: [facility] 07-26-2022 07:19-0500 Body height 154.94 cm DO Kvng Ball Work Phone: [facility] 07-26-2022 07:19-0500 Body temperature 97.7 [degF] DO Kvng Ball Work Phone: [facility] 07-26-2022 07:19-0500 Body weight 66.22 kg DO Kvng Ball Work Phone: [facility] 07-21-2022 14:30-0500 Body height 152.4 cm Kvng Ball Other [employer] [facility] [employer] Other 07-21-2022 14:30-0500 Body mass index (BMI) [Ratio] 28.82 kg/m2 Kvng Ball Other [facility] [employer] Other 07-21-2022 14:30-0500 Body weight 66.95 kg Kvng Ball Other [email or web address] Other 07-21-2022 14:30-0500 Diastolic blood pressure 70 mm[Hg] Kvng Ball Other [email or web address] Other 07-21-2022 14:30-0500 Respiratory rate 12 /min Kvng Ball Other [email or web address] Other 07-21-2022 14:30-0500 Systolic blood pressure 118 mm[Hg] Kvng Ball Other [email or web address] Other 05-25-2022 13:02-0500 Body temperature 96.91 [degF] Chair Oberlin Work Phone: [facility] 05-25-2022 13:02-0500 Diastolic blood pressure 88 mm[Hg] Chair Ryan Work Phone: [facility] 05-25-2022 13:02-0500 Heart rate 68 /min Chair Oberlin Work Phone: [facility] 05-25-2022 13:02-0500 Respiratory rate 18 /min Chair Ryan Work Phone: [facility] 05-25-2022 13:02-0500 SaO2% (BldA) [Mass fraction] 100 % Chair Oberlin Work Phone: [facility] 05-25-2022 13:02-0500 Systolic blood pressure 146 mm[Hg] Chair Ryan Work Phone: [facility] 05-18-2022 15:42-0500 Body temperature 98.1 [degF] Mavis Santiago MD Work Phone: [facility] 05-18-2022 15:42-0500 Body weight 68.04 kg Mavis Santiago MD Work Phone: [facility] 05-18-2022 15:42-0500 Diastolic blood pressure 78 mm[Hg] Mavis Santiago MD Work Phone: [facility] 05-18-2022 15:42-0500 Heart rate 78 /min Mavis Santiago MD Work Phone: [facility] 05-18-2022 15:42-0500 Respiratory rate 16 /min Mavis Santiago MD Work Phone: [facility] 05-18-2022 15:42-0500 SaO2% (BldA) [Mass fraction] 98 % Mavis Santiago MD Work Phone: [facility] 05-18-2022 15:42-0500 Systolic blood pressure 122 mm[Hg] Mavis Santiago MD Work Phone: [facility] Encounters Encounter Date Encounter Type Care Provider Facility Start: 06-21-2024 End: 06-21-2024 Bamboo flowsheet Alyssa Corona SHEARER SCREEN MEASURER [employer] TRIMMER [facility] Start: 06-21-2024 End: 06-21-2024 Bamboo flowsheet Alyssa Corona SHEARER SCREEN ME[employer]URER [employer] TRIMMER [facility] [address] Start: 06-21-2024 End: 06-21-2024 ambulatory ALYSSA CORONA Not Available Start: 04-23-2024 End: 04-23-2024 ambulatory Andrius Vytautas Georgeitis Facility: [facility] Start: 04-09-2024 End: 04-09-2024 ambulatory [facility] Start: 04-02-2024 End: 04-02-2024 ambulatory Andrius Hungytyusufas [facility] Start: 03-29-2024 End: 03-29-2024 Bamboo flowsheet Lorelei Hurtado DO Work Phone: [facility] [address] Start: 03-29-2024 End: 03-29-2024 Bamboo flowsheet Lorelei Hurtado DO Work Phone: [facility] [address] Start: 03-29-2024 End: 03-29-2024 Office outpatient visit 25 minutes [facility]ado [facility] Comment on above: Ptosis of left eyeli d (Primary Dx); Left abducens nerve palsy Start: 03-29-2024 End: 03-29-2024 ambulatory RHIANNONER GENESIS Not Available Start: 03-20-2024 End: 03-20-2024 Bamboo flowsheet Nicho Mccoy DO Work Phone: [facility] Start: 03-20-2024 End: 03-20-2024 Bamboo flowsheet Nicho Mccoy DO Work Phone: [facility] Start: 03-20-2024 End: 03-20-2024 Office outpatient visit 15 minutes Nicho Mccoy DO Work Phone: [facility] Comment on above: Chronic low back tom n, unspecified back pain laterality, unspecified whether sciatica present (Primary Dx); DDD (degenerative disc disease), lumbar; Spinal stenosis of lumbar region, unspecified whether neurogenic claudication present Start: 03-20-2024 End: 03-20-2024 ambulatory NICHO Samson TARI Not Available Start: 03-16-2024 End: 03-16-2024 Patient encounter procedure DO [employer] Work Phone: [facility] [place] Work Phone: Start: 03-16-2024 End: 03-16-2024 ambulatory DO [employer] Work Phone: [facility] Work Phone: Start: 03-13-2024 End: 03-14-2024 Telephone encounter Veda Milligan SHEARER SCREEN MEASURER [employer] TRIMMER Work Phone: [facility] Comment on above: referral Start: 03-01-2024 End: 03-01-2024 Bamboo flowsheet Christopher Genesis DO Work Phone: [employer] [facility] Start: 03-01-2024 End: 03-01-2024 Bamboo flowsheet Christopher Genesis DO Work Phone: [facility] Start: 03-01-2024 End: 03-01-2024 Office outpatient visit 25 minutes Christopher Genesis DO Work Phone: [employer] [facility] Comment on above: Myasthenia gravis (C MS/HCC) (Primary Dx); Ptosis of left eyelid; Left abducens nerve palsy Start: 03-01-2024 End: 03-01-2024 ambulatory LORELEI HURTADO Not Available Start: 01-31-2024 End: 01-31-2024 ambulatory RHIANNONER GENESIS Not Available Start: 01-25-2024 End: 01-25-2024 ambulatory VEDA MILLIGAN Not Available Start: 01-02-2024 End: 01-02-2024 Patient encounter procedure DO Kvng Wadsworth Work Phone: [facility] Work Phone: Start: 09-15-2023 End: 09-15-2023 ambulatory Imad Asaad Other [email or web address] Other Start: 09-15-2023 Telephone encounter Imad Asaad [facility] Start: 08-10-2023 End: 08-10-2023 ambulatory Imad Asaad Other [email or web address] Other Start: 08-10-2023 Office outpatient vi sit 25 minutes Imad Asaad [facility] Start: 08-01-2023 End: 08-01-2023 ambulatory Kvng Wadsworth Other [email or web address] Other Start: 08-01-2023 Telephone encounter Kvng RODRIGES [facility] Start: 07-25-2023 End: 07-25-2023 Patient encounter procedure DO Kvng Wadsworth Work Phone: [facility] [place] Work Phone: Start: 07-25-2023 End: 07-25-2023 ambulatory DO Kvng Wadsworth Work Phone: [facility] Work Phone: Start: 07-06-2023 End: 07-06-2023 ambulatory Imad Asaad Other [email or web address] Other Start: 07-06-2023 Telephone encounter Imad Asaad [facility] Start: 06-20-2023 End: 06-20-2023 ambulatory Kvng Wadsworth Other [email or web address] Other Start: 06-20-2023 Telephone encounter Kvng RODRIGES [facility] Start: 06-15-2023 End: 06-15-2023 ambulatory Kvng Wadsworth Other [email or web address] Other Start: 06-15-2023 Telephone encounter Kvng Ball [facility] Start: 06-08-2023 End: 06-08-2023 ambulatory Kvng Wadsworth Other [email or web address] Other Start: 06-08-2023 Telephone encounter Knvg Wadsworth [facility] Start: 05-31-2023 End: 05-31-2023 ambulatory Kvng Wadsworth Other [email or web address] Other Start: 05-31-2023 Telephone encounter Kvng Wadsworth [facility] Start: 05-29-2023 End: 05-29-2023 ambulatory Kvng Wadsworth Other [email or web address] Other Start: 05-29-2023 Telephone encounter Kvng Wadsworth [facility] Start: 05-28-2023 End: 05-28-2023 ambulatory Kvng Wadsworth Other [email or web address] Other Start: 05-28-2023 Telephone encounter Kvng Wadsworth [facility] Start: 05-27-2023 End: 05-27-2023 ambulatory Kvng Wadsworth Other [email or web address] Other Start: 05-27-2023 Office outpatient vi sit 25 minutes Kvng Wadsworth [facility] Start: 05-25-2023 End: 05-25-2023 ambulatory Kvng Wadsworth Other [email or web address] Other Start: 05-25-2023 Telephone encounter Kvng Wadsworth [facility] Start: 05-20-2023 End: 05-20-2023 ambulatory Kvng Wadsworth Other [email or web address] Other Start: 05-20-2023 Telephone encounter Kvng Wadsworth [facility] Start: 05-10-2023 End: 05-10-2023 ambulatory Imad Asaad Other [email or web address] Other Start: 05-10-2023 Telephone encounter Imad Asaad [facility] Start: 04-26-2023 End: 04-26-2023 ambulatory Kvng Ball Other [email or web address] Other Start: 04-26-2023 Nursing evaluation o f patient and report Kvng Wadsworth [facility] Start: 03-23-2023 End: 03-23-2023 ambulatory Imad Asaad Other [email or web address] Other Start: 03-23-2023 Telephone encounter Imad Asaad [facility] Start: 03-10-2023 End: 03-10-2023 ambulatory Kvng Wadsworth Other [email or web address] Other Start: 03-10-2023 Telephone encounter Kvng Ball [facility] Start: 03-07-2023 End: 03-07-2023 ambulatory Kvng Ball Other [email or web address] Other Start: 03-07-2023 Telephone encounter Kvng Ball [facility] Start: 03-04-2023 End: 03-04-2023 ambulatory Kvng Ball Other [email or web address] Other Start: 03-04-2023 Office outpatient vi sit 15 minutes Kvng Ball [facility] Start: 02-28-2023 End: 02-28-2023 ambulatory Kvng Ball Other [email or web address] Other Start: 02-28-2023 Telephone encounter Kvng Ball [facility] Start: 02-22-2023 End: 02-22-2023 ambulatory Kvng Ball Other [email or web address] Other Start: 02-22-2023 Office outpatient vi sit 25 minutes Kvng Ball [facility] Start: 02-21-2023 End: 02-21-2023 ambulatory Kvng Ball Other [email or web address] Other Start: 02-21-2023 Telephone encounter Kvng Ball [facility] Start: 01-24-2023 End: 01-24-2023 ambulatory Sadiq Beckham Other [email or web address] Other Start: 01-24-2023 Telephone encounter [facility] Start: 01-24-2023 End: 01-24-2023 Admission to same day surgery center DO Kvng Wadsworth Work Phone: [facility] Work Phone: Start: 12-28-2022 End: 12-28-2022 ambulatory Kvng Wadsworth Other [email or web address] Other Start: 12-28-2022 Telephone encounter Kvng Wadsworth [facility] Start: 11-19-2022 End: 11-19-2022 ambulatory Kvng Wadsworth Other [email or web address] Other Start: 11-19-2022 Telephone encounter Kvng Wadsworth [facility] Start: 11-18-2022 End: 11-18-2022 ambulatory Kvng Wadsworth Other [email or web address] Other Start: 11-18-2022 Patient encounter procedure Kvng Wadsworth [facility] Start: 11-01-2022 End: 11-01-2022 ambulatory Imad Asaad Other [email or web address] Other Start: 11-01-2022 Telephone encounter Imad Asaad [facility] Start: 10-28-2022 Telephone encounter [facility] Start: 10-28-2022 End: 10-28-2022 Admission to same day surgery center DO Kvng Wadsworth Work Phone: [facility] Work Phone: Start: 10-28-2022 End: 10-28-2022 ambulatory DO Kvng Wadsworth Work Phone: [facility] Work Phone: Start: 10-21-2022 End: 10-21-2022 ambulatory Kvng Wadsworth Other [email or web address] Other Start: 10-21-2022 Telephone encounter Kvng Armstrong [facility] Start: 10-20-2022 End: 10-21-[address] KVNG WADSWORTH Facility:[facility] Start: 10-12-2022 End: 10-12-2022 ambulatory Kvng Wadsworth Other [email or web address] Other Start: 10-12-2022 Office outpatient vi sit 15 minutes Kvng Wadsworth [facility] Start: 10-12-2022 Telephone encounter Kvng Armstrong 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 [employer] Start: 09-27-2022 End: 10-13-[address] KVNG WADSWORTH Facility:[facility] Start: 07-29-2022 End: 07-29-2022 ambulatory Kvng Wadsworth Other [email or web address] Other Start: 07-29-2022 Telephone encounter Kvng Armstrong [facility] Start: 07-27-2022 End: 07-27-2022 ambulatory KVNG WADSWORTH Facility:[facility] Start: 07-27-2022 End: 07-27-2022 Office outpatient visit 15 minutes Mavis Santiago MD Work Phone: Hematology/Oncology Comment on above: Iron deficiency (Danielle bethany Dx) Start: 07-26-2022 Telephone encounter Jeyson Diaz [facility] Start: 07-26-2022 End: 07-26-2022 Admission to same day surgery center DO Kvng Ermelinda Work Phone: [facility] Work Phone: Start: 07-26-2022 End: 07-26-2022 ambulatory DO Kvng Ermelinda Work Phone: [facility] Work Phone: Start: 07-22-2022 End: 07-22-2022 Patient encounter procedure DO Kvng Ermelinda Work Phone: [facility] Work Phone: Start: 07-21-2022 End: 07-21-2022 ambulatory Kvng Wadsworth Other [email or web address] Other Start: 07-21-2022 Office outpatient vi sit 25 minutes [facility]vng [facility] Start: 06-02-2022 Social Work Marcia Ramires 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 FILTERS INSPECTOR Hematolo gy/Oncology Start: 05-25-2022 Telephone encounter [...] Start: 05-18-2022 Telephone encounter Adebayo RODRIGES G 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 [employer] Start: 05-17-2022 Chart abstracting Mavis abraham MD Work Phone: Hematology/Oncology Start: 05-04-2022 End: 05-05-[address] KVNG WADSWORTH Facility:[facility] Start: 03-31-2022 End: 03-31-[address] KVNG WADSWORTH Facility:[facility] Start: 03-26-2022 End: 03-27-[address] KVNG WADSWORTH Facility:[facility] Start: 02-09-2022 End: 02-10-[address] KVNG WADSWORTH Facility:[facility] Start: 01-27-2022 End: 01-27-2022 ambulatory NISSA PACE . Facility:[facility] Start: 01-01-2022 End: 01-02-2022 ambulatory LIDA RAY . Facility:[facility] Start: 12-18-2021 End: 12-19-[address] KVNG WADSWORTH Facility:[facility] Start: 06-09-2021 Adult health examination Kvng Wadsworth Other [email or web address] Other Start: 08-02-2019 Preoperative cardiovascular examination Kvng Wadsworth Other [email or web address] Other Start: 05-31-2019 Gynecological examination normal Kvng Wadsworth Other [email or web address] Other Start: 01-05-2018 End: 01-06-2018 Evaluation and management of inpatient No Doctor Facility:[facility] Procedures Date Procedure Procedure Detail Performing Clinician Start: 03-16-2024 CT of thorax with contrast DO Kvng bucio Work Phone: Start: 07-25-2023 Radionuclide gastric emptying study DO Yolanda Wadsworth Work Phone: Start: 01-24-2023 Esophagogastroduodenoscopy DO Kvng Guerrero conXt Work Phone: Start: 10-28-2022 Esophagogastroduodenoscopy DO Kvng Guerrero all Work Phone: Start: 07-26-2022 Esophagogastroduodenoscopy DO Kvng Guerrero all Work Phone: Start: 07-22-2022 SARS Antigen (LFIA) DO Kvng Wadsworth Work Phone: Depression screening Adebayo Pan Other Depression screening Aidee Wadsworth Other Screening for malign ant neoplasm of breast Adebayo Pan Other Screening for malign ant neoplasm of breast Kvng Wadsworth Other Plan of Treatment Date Care Activity Detail Author Start: 06-21-2024 End: 06-21-2024 Patient encounter procedure [facility] Comment on above: Arrived Start: 03-29-2024 End: 03-29-2024 Patient encounter procedure [facility] Comment on above: Arrived Start: 03-20-2024 End: 03-20-2024 Patient encounter procedure [facility] Comment on above: Chronic low back tom n, unspecified back pain laterality, unspecified whether sciatica present (Primary Dx); DDD (degenerative disc disease), lumbar; Spinal stenosis of lumbar region, unspecified whether neurogenic claudication present Start: 03-11-2024 Influenza vaccination Influenz a Vaccine (#1) [facility] Start: 03-01-2024 End: 03-01-2025 Creatinine [Mass/volume] in Serum or Plasma Creatinine, Serum Lab Routine Myasthenia gravis (CMS/HCC) 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 Expected: 03/01/2024 (Approximate), Expires: 03/01/2025 [facility] Comment on above: Expected: 03/01/2024 (Approximate), Expires: 03/01/2025 Start: 03-01-2024 End: 03-01-2025 CT Chest W contrast IV CT chest w IV contrast Imaging Routine Myasthenia gravis (CMS/HCC) 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 [address] [place] [id number] Lorelei Hurtado DO [address] [place], [place] [id number] Arrived [facility] Comment on above: Arrived Start: 01-24-2023 End: 03-26-2023 CBC W Auto Differential panel - Blood CBC + DIFF Lab Routine Iron deficiency Expected: 01/24/2023 (Approximate), Expires: 03/26/2023 [facility] Work Phone: Comment on above: Expected: 01/24/2023 (Approximate), Expires: 03/26/2023 Start: 01-24-2023 End: 07-27-2023 Ferritin [Mass/volume] in Serum or Plasma FERRITIN BLD Lab Routine Iron deficiency Expected: 01/24/2023 (Approximate), Expires: 07/27/2023 [facility] Work Phone: Comment on above: Expected: 01/24/2023 (Approximate), Expires: 07/27/2023 Start: 01-24-2023 End: 07-27-2023 Iron and Iron binding capacity panel - Serum or Plasma IRON + TIBC Lab Routine Iron deficiency Expected: 01/24/2023 (Approximate), Expires: 07/27/2023 [facility] Work Phone: Comment on above: Expected: 01/24/2023 (Approximate), Expires: 07/27/2023 Start: 01-24-2023 [facility] Start: 10-28-2022 [facility] Start: 07-27-2022 End: 09-26-2022 CBC W Auto Differential panel - Blood CBC + DIFF Lab Routine Iron deficiency Expected: 07/27/2022 (Approximate), Expires: 09/26/2022 [facility] Work Phone: Comment on above: Expected: 07/27/2022 (Approximate), Expires: 09/26/2022 Start: 07-27-2022 End: 05-18-2023 Ferritin [Mass/volume] in Serum or Plasma FERRITIN BLD Lab Routine Iron deficiency Expected: 07/27/2022 (Approximate), Expires: 05/18/2023 [facility] Work Phone: Comment on above: Expected: 07/27/2022 (Approximate), Expires: 05/18/2023 Start: 07-27-2022 End: 05-18-2023 Iron and Iron binding capacity panel - Serum or Plasma IRON + TIBC Lab Routine Iron deficiency Expected: 07/27/2022 (Approximate), Expires: 05/18/2023 [facility] Work Phone: Comment on above: Expected: 07/27/2022 (Approximate), Expires: 05/18/2023 Start: 07-27-2022 End: 09-26-2022 RETIC COUNT RETIC COUNT Lab Routine Iron deficiency Expected: 07/27/2022 (Approximate), Expires: 09/26/2022 [facility] Work Phone: Comment on above: Expected: 07/27/2022 (Approximate), Expires: 09/26/2022 Start: 07-26-2022 [facility] Start: 07-11-2022 ADVANCE DIRECTIVE DISCUSSION ADVANCE DIRECTIVE DISCUSSION [facility] Start: 07-11-2022 DEPRESSION ASSESSMENT DEPRESSION ASS ESSMENT [facility] Start: 03-11-2022 Influenza vaccination INFLUENZA (#1) [facility] Start: 01-30-2022 COVID-19 VACCINE (5 - Booster for Pfizer series) COVID-19 VACCINE (5 - Booster for Pfizer series) [facility] Start: 07-11-2021 ADVANCE DIRECTIVE DISCUSSION ADVANCE DIRECTIVE DISCUSSION [facility] Start: 07-11-2021 DEPRESSION ASSESSMENT DEPRESSION ASS ESSMENT [facility] Start: 03-29-2019 PNEUMOCOCCAL: 65+ (2 - PCV) PNEUMOCOCCAL: 65+ (2 - PCV) [facility] Start: 11-15-2017 DIABETES SCREEN DIABETES SCREEN [facility] Start: 04-23-2016 PNEUMOCOCCAL: 65+ (2 - PCV) PNEUMOCOCCAL: 65+ (2 - PCV) [facility] Start: 2003 BONE DENSITY BONE DENSITY [facility] Start: 01-22-1988 SHINGRIX VACCINE (1 of 2) SHINGRIX VACCINE (1 of 2) [facility] Start: 1957 Urine microalbumin profile DTAP,TDAP,TD (1 - Tdap) [facility] Start: 1940 COVID-19 VACCINE (#1) COVID-19 VACCI NE (#1) [facility] Patient Education [facility] Work Phone: XR Knee - right 4 Views [facility] Immunizations Immunization Date Immunization Notes Care Provider Fa cility 04-26-2023 influenza, high dose seasonal, preservative-free Kvng Wadsworth Other [email or web address] Other 04-26-2023 influenza virus vaccine, unspecified formulation Lorelei Hurtado DO Work Phone: [facility] 10-19-2022 COVID-19 Pfizer (bivalent) Kvng Wadsworth Other [facility] 12-05-2021 COVID-19 Pfizer Kvng mac Other [facility] 12-05-2021 COVID-19 Vaccine Pfizer - Documentation Purposes Only Kvng Wadsworth Other [facility] 04-14-2021 COVID-19 Vaccine Pfizer - Documentation Purposes Only Kvng Wadsworth Other [facility] 04-06-2021 influenza virus vaccine, split virus (incl. purified surface antigen) Kvng Wadsworth Other [facility] [employer] Other 04-06-2021 influenza virus vaccine, unspecified formulation DO Kvng Wadsworth Work Phone: [facility] 04-06-2021 influenza, high-dose , quadrivalent vaccine (FLUZONE HIGH DOSE QUADRIVALENT) Maivs Santiago MD Work Phone: [facility] 08-27-2020 COVID-19 Vaccine Pfizer - Documentation Purposes Only Kvng Wadsworth Other [facility] 08-04-2020 COVID-19 Vaccine Pfizer - Documentation Purposes Only Kvng Wadsworth Other [facility] 04-04-2020 influenza virus vaccine, split virus (incl. purified surface antigen) Kvng Wadsworth Other [employer] [facility] [employer] Other 04-04-2020 influenza virus vaccine, unspecified formulation DO Kvng Wadsworth Work Phone: [facility] 04-04-2020 influenza, high-dose , quadrivalent vaccine (FLUZONE HIGH DOSE QUADRIVALENT) Mavis Santiago MD Work Phone: [facility] 04-18-2019 influenza, injectabl e, quadrivalent, preservative free Mavis Santiago MD Work Phone: [facility] 03-22-2019 Seasonal trivalent influenza vaccine, adjuvanted, preservative free Mavis Santiago MD Work Phone: [facility] 04-13-2018 influenza virus vaccine, split virus (incl. purified surface antigen) Kvng Wadsworth Other [facility] [employer] Other 04-13-2018 influenza virus vaccine, unspecified formulation DO Kvng Wadsworth Work Phone: [facility] 04-13-2018 Seasonal trivalent influenza vaccine, adjuvanted, preservative free Mavis Santiago MD Work Phone: [facility] 03-29-2018 pneumococcal polysaccharide vaccine, 23 valent Mavis Santiago MD Work Phone: [facility] 05-25-2017 Seasonal trivalent influenza vaccine, adjuvanted, preservative free Mavis Santiago MD Work Phone: [facility] 04-27-2016 influenza virus vaccine, split virus (incl. purified surface antigen) Kvng Wadsworth Other [facility] [employer] Other 04-27-2016 influenza virus vaccine, unspecified formulation DO Kvng Wadsworth Work Phone: [facility] 04-27-2016 influenza, high dose seasonal, preservative-free Mavis Santiago MD Work Phone: [facility] 04-23-2015 influenza, injectabl e, quadrivalent, preservative free Mavis Santiago MD Work Phone: [facility] 04-23-2015 pneumococcal polysaccharide vaccine, 23 valshelby Santiago MD Work Phone: [facility] 04-18-2015 influenza virus vaccine, split virus (incl. purified surface antigen) Kvng Wadsworth Other [facility] [employer] Other 04-18-2015 influenza virus vaccine, unspecified formulation DO Kvng Wadsworth Work Phone: [facility] 04-18-2015 pneumococcal conjuga te vaccine, 13 valent Kvng Wadsworth Other [facility] 05-21-2014 influenza, injectabl e, quadrivalent, contains preservative Adebayo Pan Other [facility] 04-26-2014 tetanus and diphther ia toxoids, adsorbed, preservative free, for adult use (5 Lf of tetanus toxoid and 2 Lf of diphtheria toxoid) Kvng Wadsworth Other [facility] 05-09-2013 pneumococcal polysaccharide vaccine, 23 valent Kvng Wadsworth Other [facility] 05-09-2013 tetanus and diphther ia toxoids, adsorbed, preservative free, for adult use (5 Lf of tetanus toxoid and 2 Lf of diphtheria toxoid) Kvng Wadsworth Other [facility] Payers Date Payer Category Payer Self-pay [id number] 2014 Private Health Insurance [id number] 2003 Medicare [id number] 2003 Unknown 1959 Medicare [id number] 1959 Private Health Insurance [id number] 1938 Unknown [id number] 2.16.84 [id number] 1938 Unknown [id number] 2.16.84 0.1.571595.3.579.2.593 1938 Unknown [id number] 2.16.84 0.1.897721.3.579.2.593 1938 Unknown [id number] 2.16.84 0.1.157325.3.579.2.593 1938 Unknown [id number] 2.16.84 0.1.996562.3.579.2.593 1938 Unknown [id number] 2.16.84 0.1.602306.3.579.2.593 1938 Unknown [id number] 2.16.84 0.1.766226.3.579.2.593 1938 Unknown [id number] 2.16.84 0.1.231739.3.579.2.593 1938 Unknown [id number] 2.16.84 0.1.024428.3.579.2.593 1938 Unknown [id number] 2.16. 840.1.166203.3.579.2.196 1938 Unknown [id number] 2.16. 840.1.919916.3.579.2.196 1938 Unknown [id number] 2.16. 840.1.252589.3.579.2.196 1938 Unknown [id number] 2.16.84 0.1.863606.3.579.2.1259 1938 Unknown [id number] 2.16.84 0.1.857275.3.579.2.1259 1938 Unknown [id number] 2.16.84 0.1.474445.3.579.2.1259 1938 Unknown [id number] 2.16.84 0.1.151392.3.579.2.1259 1938 Unknown [id number] 2.16.84 0.1.991723.3.579.2.1259 1938 Unknown [id number] 2.16.84 0.1.280324.3.579.2.1259 1938 Unknown [id number] 2.16.84 0.1.290530.3.579.2.1259 Medicare [id number] Unknown [id number] 2.16.8 40.1.309857.3.579.2.531 Unknown [id number] 2.16.8 [id number] Social History Date Type Detail Facility Start: 01-03-2015 End: 05-27-2023 Tobacco smoking status NHIS Ex-smoker [facility] History of tobacco use Current smoker [facility] Start: 01-03-2015 End: 01-25-2024 Tobacco use and exposure Smokeless tobacco non-user [facility] Start: 05-17-2022 End: 03-20-2024 Alcohol intake Ex-drinker (finding) [facility] Start: 1940 Sex Assigned At Not on file [facility] Start: 05-08-2022 End: 05-25-2022 Exposure to SARS-CoV-2 (event) Not sure [facility] Start: 07-26-2022 End: 01-25-2024 Tobacco smoking status VTIS Never smoked tobacco (finding) [facility] Start: 1940 Sex Assigned At Female F [facility] Start: 01-31-2024 Sex Assigned At N [employer] Other Start: 01-31-2024 History of Social function [facility] Goals Date Patient Goal Desired Activity /State Clinical Notes 11-28-2019 to 03-29-2024 Lorelei Hurtado, - 03/29/2024 9:00 AM EDTNicho Mccoy, - 03/20/2024 10:45 AM EDTTelephone Encounter - Hanane Chino - 03/13/2024 3:07 PM EDAngel Hurtado DO - 03/01/2024 2:00 PM EDT Note Date & Type Note Facility 03-29-2024 History of Presen t illness Narrative Images from the original note were not included. Chief complaint: Ocular abnormality. Subjective Tangela Mac Isa, 84 y.o., female Patient presents for a f/u to double vision. Patient daughter is present at visit. Patient is not using a cane to ambulate today. States that since starting Salem XL her pain in her back has diminished drastically and able to get around more. Down to 2 tylenol a day instead of 6 and is no longer taking tumeric. She has had sx of double vision for years. No changes since last visit. Unsure if more prominent in one eye or the other. States when she closes one eye, the other sees fine. Does admit to diminished peripheral vision on the left side. She is having headaches, unsure if they're actually Migraines. Denies any recent falls. Patient is no longer driving due to this matter. Denies any further concerns today. Review of Systems Constitutional: Negative for appetite change, fatigue and fever. Eyes: Left eye ptosis Respiratory: Negative for cough, shortness of breath and wheezing. Cardiovascular: Negative for chest pain, palpitations and leg swelling. Gastrointestinal: Negative for abdominal pain, constipation, diarrhea and nausea. Musculoskeletal: Negative for arthralgias, gait problem and myalgias. Neurological: Negative for dizziness, tremors, numbness and headaches. Past Medical History: Diagnosis Date Anemia Arthritis Cataracts, bilateral Hyperlipidemia ([facility]) Hypertension ([facility]) Migraines ([facility]) Myasthenia gravis ([facility]) 2023 Osteoporosis ([facility]) Thyroid disease ([facility]) Past Surgical History: Procedure Laterality Date APPENDECTOMY 1943 HYSTERECTOMY 1988 LUMBAR SPINE SURGERY 1996 L4 NECK SURGERY 1982 C4 TOTAL KNEE ARTHROPLASTY Right 07/16/2019 Dr. Mccoy No family history on file. Social History Tobacco Use Smoking status: Never Smokeless tobacco: Never Substance Use Topics Alcohol use: Not Currently Allergies: Cephalosporins, Penicillins, Povidone-iodine, Statins, Sulfa antibiotics, Nitrofurantoin macrocrystal, and Vancomycin Vitals: 03/29/24 0854 BP: 112/78 Body mass index is 26.95 kg/m . weight: 138 lb Neurologic exam: Mental status: Awake, alert to person, place and time. Recent and remote memory are intact. Language is fluent without aphasia. Attention and concentration are normal. Fund of knowledge is appropriate for level of education. Cranial nerves: CN II: Visual acuity is normal. Visual venegas full to confrontation. CN III, IV, : pupils equal round and reactive to light. Ptosis is present which seems to worsen with sustained upgaze. Also a 6th nerve deficit on the left. CN V: Facial sensation is normal. CN VII: Full and symmetric facial movement. CN VIII: Hearing is normal to finger rub bilaterally: CN IX and X: Palate elevates symmetrically. CN XI: Shoulder shrug is normal bilaterally. CN XII: Tongue is midline without atrophy or fasciculation. Motor: Strength is 5/5 throughout. Bulk is normal. Neck flexor weakness appears preserved. Sensory: Sensation is intact to light touch throughout Four extremities. Reflexes: Deep tendon reflexes are 1+ and symmetric throughout. Coordination: [id number] testing and rapid alternating movements are normal Gait: Patient ambulates with a cane. Review and summary of old records: CT of the chest with contrast: No evidence of thymoma Acetylcholine binding, blocking and modulating antibodies and MSK: negative. MRI of the brain on 10/14/2023 at [facility]: No acute infarction. Chronic microvascular ischemic disease and atrophy which is stable. No significant change when compared to imaging on 05/30/2023. 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 MRI of the brain and MR angiogram of the head are unremarkable for cause. The patient does seem to note a worsening of the symptoms at the end of the day. She has not experienced any definitive shortness of breath but does note she has a little bit more unsteady. No definitive neck or muscle weakness. Antibody laboratory evaluation negative for MG. May be hemifacial spasm. Seronegative myasthenia gravis seems less likely given no response to Mestinon and prednisone. Plan: I have informed the patient about myasthenic crisis and the need to proceed to the emergency department right away with any such signs or symptoms such as shortness of breath as this could be life-threatening Stop prednisone and mestinon Monitor clinically Pt has been fully educated on their diagnosis, lab results, treatment options, follow up plan, and return instructions documented in this encounter [facility] 03-20-2024 History of Presen t illness Narrative Images from the original note were not included. HISTORY OF PRESENT ILLNESS: Tangela Moss is an 84 y.o. @ female. Here for lumbar spine MRI results Here for lumbar MRI results [facility] 8 weeks s/p MDP (per Bethany 01/24), no relief She has been having pain x 6 months, NKI. Pain over lateral hip, below knee and lower leg. Admits cramping and N/T anterior lateral lower leg x 6 months. Admits B/L feet numbness that has been ongoing and getting worse. Pain is worst at night. Pain at worst 8/10 at times at night. Wakes at night. Not able to guanaco on RT side. Taking TYL, tramdaol (for her back), tumeric, and glucosamine. Using voltaren gel, ice and heat with relief. There is swelling in the knee and lower leg x 6 months. Wears moises hose at home. She does stretches at home w/o relief. Notes she went to the chiropractor w/o relief. Ambulating with cane. Taking prednisone for myasthenia gravis. Prior treatment(s) included: RT TKA dr mccoy 07/16/2019, Xrays [facility] 01/03/24, MDP 01/25/24, MRI lumbar [facility] 03/02/24 RT KNEE 4 years s/p RT TKA (DOS 07/16/2019) FWB without assistive device. Notes she had xrays in the past month at Dr. [facility]. Both knees and both hips. Notes Dr. Wadsworth told her she has fluid on her knee. MEDICATION: Current Outpatient Medications on File Prior to Visit Medication Sig Dispense Refill acetaminophen (Tylenol) 500 MG tablet Take by mouth amLODIPine (Norvasc) 5 MG tablet Daily atenolol (Tenormin) 25 MG tablet Take 25 mg by mouth Daily calcium carbonate (Super Calcium) 1500 (600 Ca) MG tablet every 12 (twelve) hours cholecalciferol (Vitamin D-3) 250 MCG (81121 UT) capsule as directed Orally diclofenac (Voltaren) 75 MG EC tablet 1 (one) time each day at the same time famotidine (Pepcid) 40 MG tablet 1 (one) time each day at the same time Glucosamine 500 MG capsule every 8 (eight) hours levothyroxine (Synthroid, Levoxyl) 112 MCG tablet TAKE 1 TABLET BY MOUTH EVERY DAY IN THE MORNING ON AN EMPTY STOMACH FOR 30 DAYS levothyroxine (Synthroid, Levoxyl) 125 MCG tablet 1 (one) time each day at the same time Multiple Vitamin (Multi Vitamin Daily) tablet 1 (one) time each day at the same time Salem-3 Fatty Acids (OMEGA 3 500 PO) Take by mouth pantoprazole (ProtoNix) 40 MG EC tablet TAKE 1 TABLET BY MOUTH 30 MINUTES PRIOR TO MORNING MEAL predniSONE (Deltasone) 10 MG tablet Take 1 tablet (10 mg) by mouth Daily 30 tablet 3 pyridostigmine (Mestinon) 60 MG tablet Take 0.5 tablets (30 mg) by mouth in the morning and 0.5 tablets (30 mg) in the evening and 0.5 tablets (30 mg) before bedtime. 45 tablet 3 Red Yeast Rice 600 MG capsule as directed Orally traMADol (Ultram) 50 MG tablet TAKE 1 TABLET EVERY 8 HOURS NEEDED FOR PAIN FOR 30 DAYS triamcinolone (Kenalog) 0.1 % cream .COMPLEX zoledronic acid (Reclast) 5 MG/100ML solution Intravenous [DISCONTINUED] LORazepam (Ativan) 0.5 MG tablet Take 1 tablet (0.5 mg) by mouth 1 time for 1 dose Take 1 hour prior to MRI 1 tablet 0 [DISCONTINUED] methylPREDNISolone (Medrol Dospak) 4 MG tablets Follow schedule on package instructions (Patient not taking: Reported on 01/31/2024) 21 tablet 0 No current facility-administered medications on file prior to visit. MEDICAL HISTORY: Past Medical History: Diagnosis Date Anemia Arthritis Cataracts, bilateral Hyperlipidemia (CMS/HCC) Hypertension (CMS/HCC) Migraines (CMS/HCC) Myasthenia gravis (CMS/HCC) 2023 Osteoporosis (CMS/HCC) Thyroid disease (CMS/HCC) ALLERGIES: Allergies Allergen Reactions Cephalosporins Other Reaction(s): Unknown, Unknown Reaction Penicillins Hives Other Reaction(s): Hives, PENICILLINS, Unknown Povidone-Iodine Other Reaction(s): Hives, Unknown Statins Other Reaction(s): Unknown Sulfa Antibiotics Hives Other Reaction(s): Hives, Comment:11/30/2005, Unknown Nitrofurantoin Macrocrystal Itching and Rash Vancomycin Itching and Rash Other Reaction(s): Unknown VITALS: Visit Vitals Smoking Status Never PHYSICAL EXAM: Ortho Exam LUMBAR No scars No spasms Decreased sensation RT LE RT hip ROM 30 IR and 0 ER Negative SLR Ambulating with cane IMAGING: I reviewed an MRI of the lumbar spine from the [facility]. There is scoliosis. There is marked disc endplate changes with osteophyte formation protruding into the spinal canal causing spinal stenosis. There are no disc herniations. There appears to be a fusion of L5-S1 Or possibly a transitional segment. There is marked stenosis throughout the lumbar spine causing both central and lateral recess stenosis. There are no fractures noted. ASSESSMENT: ICD-10-CM 1. Chronic low back pain, unspecified back pain laterality, unspecified whether sciatica present M54.50 G89.29 2. DDD (degenerative disc disease), lumbar M51.36 3. Spinal stenosis of lumbar region, unspecified whether neurogenic claudication present M48.061 Ambulatory referral to Pain Medicine PLAN: I explained the MRI, diagnosis and reviewed treatment options including injections, pain management, surgery. I answered all of the patient's questions. She does not want surgery at this point, if she would desire surgery I would refer her to neurosurgeon. She would like to try pain management, referral to pain management to E/T low back pain consider LEESA. Follow up as needed, any issues/concerns follow up sooner. Dr. Mccoy obtained history and examined the patient, I am acting as scribe for Dr. Mccoy/jacinto Mccoy D.O. documented in this encounter [facility] [facility]24 Telephone encount er Note Pt called and stated she had her MRI done of L-spine at [facility] on 03/02/24 and she has not heard from anyone on the results, and also she stated when she was seen last you mentioned sending her to pain mgmt and she has not heard about scheduling that either? Please advise. I called [facility] for the results? Does she need follow up with Dr Mccoy? [facility] 03-13-2024 Miscellaneous Notes Formattin g of this note might be different from the original. Pt called and stated she had her MRI done of L-spine at [facility] on 03/02/24 and she has not heard from anyone on the results, and also she stated when she was seen last you mentioned sending her to pain mgmt and she has not heard about scheduling that either? Please advise. I called [facility] for the results? Does she need follow up with Dr Mccoy? documented in this encounter [facility] 03-01-2024 History of Presen t illness Narrative Images from the original note were not included. Chief complaint: Ocular abnormality. Subjective Tangela Moss, 84 y.o., female Patient presents for f/u to double vision. Patient daughter is present. Patient is ambulating with a cane. She has had sx of double vision for years. No changes since last visit. Unsure if more prominent in one eye or the other. States when she closes one eye, the other sees fine. Does admit to diminished peripheral vision on the left side. Pt has labs completed. Wondering if Mestinon could cause constipation. Is having GI troubles. She is having headaches, unsure if they're actually Migraines. Denies any recent falls. Patient is no longer driving due to this matter. Denies any further concerns today. Review of Systems Past Medical History: Diagnosis Date Anemia Arthritis Cataracts, bilateral Hyperlipidemia (CMS/HCC) Hypertension (CMS/HCC) Migraines (CMS/HCC) Osteoporosis (CMS/HCC) Thyroid disease (CMS/HCC) Past Surgical History: Procedure Laterality Date APPENDECTOMY 1943 HYSTERECTOMY 1988 LUMBAR SPINE SURGERY 1996 L4 NECK SURGERY 1982 C4 TOTAL KNEE ARTHROPLASTY Right 07/16/2019 Dr. Mccoy No family history on file. Social History Tobacco Use Smoking status: Never Smokeless tobacco: Never Substance Use Topics Alcohol use: Not Currently Allergies: Cephalosporins, Nitrofurantoin, Penicillins, Povidone iodine, Povidone-iodine, Statins, Sulfa antibiotics, Nitrofurantoin macrocrystal, and Vancomycin There were no vitals filed for this visit. There is no height or weight on file to calculate BMI. Neurologic exam: Mental status: Awake, alert to person, place and time. Recent and remote memory are intact. Language is fluent without aphasia. Attention and concentration are normal. Fund of knowledge is appropriate for level of education. Cranial nerves: CN II: Visual acuity is normal. Visual venegas full to confrontation. CN III, IV, : pupils equal round and reactive to light. Ptosis is present which seems to worsen with sustained upgaze. Also a 6th nerve deficit on the left. CN V: Facial sensation is normal. CN VII: Full and symmetric facial movement. CN VIII: Hearing is normal to finger rub bilaterally: CN IX and X: Palate elevates symmetrically. CN XI: Shoulder shrug is normal bilaterally. CN XII: Tongue is midline without atrophy or fasciculation. Motor: Strength is 5/5 throughout. Bulk is normal. Neck flexor weakness appears preserved. Sensory: Sensation is intact to light touch throughout Four extremities. Reflexes: Deep tendon reflexes are 1+ and symmetric throughout. Coordination: Fiagtc-dz-dwex testing and rapid alternating movements are normal Gait: Patient ambulates with a cane. Review and summary of old records: Acetylcholine binding, blocking and modulating antibodies and MSK: negative. MRI of the brain on 10/14/2023 at [facility]: No acute infarction. Chronic microvascular ischemic disease and atrophy which is stable. No significant change when compared to imaging on 05/30/2023. 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 MRI of the brain and MR angiogram of the head are unremarkable for cause. The patient does seem to note a worsening of the symptoms at the end of the day. She has not experienced any definitive shortness of breath but does note she has a little bit more unsteady. No definitive neck or muscle weakness. I am certainly concerned for neuromuscular disorder such as myasthenia gravis. However, antibody laboratory evaluation negative. 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 Start prednisone [address] of the chest with contrast to evaluate for thymoma I did consider an evaluation at [facility] with single fiber EMG. The patient adamantly refuses this. I did also consider repeat MRI on a 3 Loretta scanner with dedicated protocol looking at the facial nerves I wonder if there is a component of heavy facial spasm. The patient is adamant she will not under any circumstance get an MRI and does not want sedation for the MRI and is completely against that even though it may miss life-threatening or debilitating pathology. Pt has been fully educated on their diagnosis, lab results, treatment options, follow up plan, and return instructions documented in this encounter [facility] 08-10-2023 Evaluation note Encounter Date Diagnosis Assessment Notes Jul, Epigastric pain (ICD-10 - R10.13) Jul, Constipation (ICD-10 - K59.00) Oct, Nausea (ICD-10 - R11.0) Nausea [email or web address] Other 12-11-2023 Evaluation note* Encounter Date Diagnosis Assessment Notes Treatment Notes Treatment Clinical Notes Jun, Lumbar spondylosis (ICD-10 - M47.816) [email or web address] Other 11-21-2023 Evaluation note* Encounter Date Diagnosis Assessment Notes Treatment Notes Treatment Clinical Notes May, Claustrophobia (ICD-10 - F40.240) [email or web address] Other 11-17-2023 Evaluation note* Encounter Date Diagnosis [...] May, Other specified hypothyroidism (ICD-10 - E03.8) [email or web address] Other 11-10-2023 Evaluation note* Encounter Date Diagnosis Assessment Notes Treatment Notes Treatment Clinical Notes May, Lumbar spondylosis (ICD-10 - M47.816) [email or web address] Other 09-13-2023 Evaluation note* Encounter Date Diagnosis Assessment Notes Treatment Notes Treatment Clinical Notes Mar, Chronic superficial gastritis with bleeding (ICD-10 - K29.31) [email or web address] Other 08-25-2023 Evaluation note* Encounter Date Diagnosis Assessment Notes Treatment Notes Treatment Clinical Notes Feb, Allergic contact dermatitis due to plants, except food (ICD-10 - L23.7) Cool compresses, topical steroids and begin Prednisone. _update on Feb, Cellulitis of left upper extremity (ICD-10 - L03.114) Elevate and begin antibiotics, update on Tuesday [email or web address] Other 08-15-2023 Evaluation note* Encounter Date Diagnosis [...] exercise for 30 minutes, 3-5 times weekly. [email or web address] Other 08-14-2023 Evaluation note* Encounter Date Diagnosis Assessment Notes Treatment Notes Treatment Clinical Notes Feb, Lumbar spondylosis (ICD-10 - M47.816) [email or web address] Other 06-20-2023 Evaluation note* Encounter Date Diagnosis Assessment Notes Treatment Notes Treatment Clinical Notes Dec, Autoimmune thyroiditis (ICD-10 - E06.3) [email or web address] Other 05-12-2023 Evaluation note* Encounter Date Diagnosis Assessment Notes Treatment Notes Treatment Clinical Notes November, Lumbar spondylosis (ICD-10 - M47.816) [email or web address] Other 05-11-2023 Evaluation note* Encounter Date Diagnosis [...] E03.8) November, Lumbar spondylosis (ICD-10 - M47.816) [email or web address] Other 04-20-2023 [facility] NotePROCEDURE: XR HIP LT 2 3V W [...] lower lumbar spine. Electronically authenticated by: ANTHONY BAEZ Date: 2022-10-20 15:40[facility]04-04-2023 Evaluation note* Encounter Date Diagnosis Assessment Notes [...] mammogram for breast cancer (ICD-10 - Z12.31) [email or web address] Other 01-17-2023 NoteHNO ID: [id number] Author: Mavis Santiago MD Service: ? Author Type: Physician Type: Progress Notes Filed: 07/27/2022 2:56 PM Note Text: PATIENT NAME: Tangela Moss CLINIC NO.: [id number] ATTENDING PHYSICIAN: Mavis Santiago MD DATE OF SERVICE: July 27, 2022 Some of the elements of this note have been copied from my previous progress note dated 05/18/2022. All the information has been reviewed carefully. Dear Dr. Kvng Wadsworth here is an update on a follow up visit on female Tangela Moss at the clinic July 27, 2022 Diagnosis: SHELLY Treatment History: IV Iron 10/2018. Repeat 05/2022 HPI: Tangela Moss is a 82 year old year old [...] Status 07/27/2022 18.0 (H) (more content not included)...[facility] 07-27-2022 History of Present illness Narrative* Mavis Santiago MD - 07/27/2022 2:48 PM EST PATIENT NAME: Tangela Moss [facility] NO.: [id number] ATTENDING PHYSICIAN: Mavis Santiago MD DATE OF SERVICE: July 27, 2022 Some of the elements of this note have been copied from my previous progress note dated 05/18/2022. All the information has been reviewed carefully. Dear Dr. Kvng Wadsworth here is an update on a follow up visit on female Tangela Moss at the clinic July 27, 2022 Diagnosis: SHELLY Treatment History: IV Iron 10/2018. Repeat 05/2022 HPI: Tangela Moss is a 82 year old year old [...] 07/27/2022 3.25 1.00 - 4.00 k/uL Final Warren% Date Value Ref Range Status 07/27/2022 14.0 % Final Abs Warren Date Value Ref Range Status 07/27/2022 1.25 (H) <0.87 k/uL Final Eosin% Date Value Ref Range Status 07/27/2022 5.8 % Final Abs Eosin Date Value Ref Range Status 07/27/2022 0.52 (H) <0.46 k/uL Final Baso% Date Value Ref Range Status 07/27/2022 0.9 % Final Abs Baso Date Value Ref Range Status 07/27/2022 0.08 <0.11 k/uL Final PATH: Imaging: Assessment and Plan: Tangela Moss is a 82 year old year old [...] do not hesitate to contact me at [phone]. Mavis Santiago MD Hematology/Medical Oncology [facility] Saavedra spent a total of 20 minutes on the date of the service which included preparing to see the patient, gekb-qu-jtav patient care, completing clinical documentation, obtaining and/or reviewing separately obtained history, performing a medically appropriate examination, counseling and educating the pat ient/family/caregiver, and ordering medications, tests, or procedures. CC: Kvng Wadsworth DO [facility]* Encounter Date Diagnosis Assessment Notes Treatment Notes Treatment Clinical Notes Jul, Acute gastric ulcer without hemorrhage or perforation (ICD-10 - K25.3) [email or web address] Other [id number] [facility] Evaluation note* Encounter Date Diagnosis Assessment [...] Healty diet, keep active, consistent sleep routine [email or web address] Other [id number] NoteHNO ID: [id number] Author: MONY Mart Service: ? Author Type: [employer] Type: Progress Notes Filed: 06/02/2022 3:17 PM Note Text: Patient appears on the First Time Treatment List for a non-oncology treatment. No psychosocial assessment is indicated. KAYLEY Mart-[facility]11-23-2022 History of Present illness Narrative* MONY Mart - 06/02/2022 3:16 PM EST Patient appears on the First Time Treatment List for a non-oncology treatment. No psychosocial assessment is indicated. KAYLYE Mart-[facility] Miscellaneous Notes* Telephone Encounter - Mohit Lo [facility] - 05/25/2022 3:32 PM EST 1st report of treatment-non oncology regimen (Monoferric) Patient holds Medicare coverage. No FA available at this time. [facility] NoteHNO ID: [id number] Author: Mavis Santiago MD Service: ? Author Type: Physician Type: Progress Notes Filed: 05/18/2022 4:08 PM Note Text: PATIENT NAME: Tangela Moss CLINIC NO.: [id number] ATTENDING PHYSICIAN: Mavis Santiago MD DATE OF SERVICE: May 18, [address] Kvng Wadsworth here is an update on a follow up visit on female Tangela Moss at the clinic 05/18/2022 Diagnosis: SHELLY Treatment History: IV Iron 10/2018 HPI: Tangela Moss is a 82 year old year old [...] Final Lymph% Date Va (more content not included)...[facility]11-08-2022 History of Present illness Narrative* Mavis Santiago MD - 05/18/2022 3:51 PM EST PATIENT NAME: Tangela Moss [facility] NO.: [id number] ATTENDING PHYSICIAN: Mavis Santiago MD DATE OF SERVICE: May 18, [address] Kvng Wadsworth here is an update on a follow up visit on female Tangela Moss at the clinic 05/18/2022 Diagnosis: SHELLY Treatment History: IV Iron 10/2018 HPI: Tangela Moss is a 82 year old year old [...] 05/11/2018 2.74 1.00 - 4.00 k/uL Final Warren% Date Value Ref Range Status 05/11/2018 12.1 % Final Abs Warren Date Value Ref Range Status 05/11/2018 1.12 (H) 0.00 - 0.86 k/uL Final Abs Eosin Date Value Ref Range Status 05/11/2018 0.70 (H) 0.00 - 0.45 k/uL Final Baso% Date Value Ref Range Status 05/11/2018 1.0 % Final Abs Baso Date Value Ref Range Status 05/11/2018 0.09 0.00 - 0.10 k/uL Final PATH: Imaging: Assessment and Plan: Tangela Moss is a 82 year old year old female here for follow up. SHELLY- Source Unclear and not tolerating PO Iron--- Will schedule for Monoferric next week and repeatparameters in 2 months Agree with repeat upper and lower endoscopies, referral has been made by Dr. Wadsworth. Thank you for the kind referral. If there are any questions and or concerns please do not hesitate to contact me at [phone]. Mavis Santiago MD Hematology/Medical Oncology [facility] spent a total of 30 minutes on the date of the service which included preparing to see the patient, sesy-km-iror patient care, completing clinical documentation, obtaining and/or reviewing separately obtained history, performing a medically appropriate examination, counseling and educating the pat ient/family/caregiver, and ordering medications, tests, or procedures. Medical Decision Making: Medical Decision Making Level: 1 - N/A CC: Kvng Wadsworth DO documented [facility] Progress note Author Nicho Salcedo [facility] May 29, 2020 11:30am Note Date/Time May 29, 2020 11:29am [facility] [place] [address] Hem/Onc Follow Up Note - OP Signed Patient: Tangela Moss MR#: [id number] : 1940 Acct:[id number] Age/Sex: 80 / F Type: REG RCR Copies to: Kvng Wadsworth DO SELF,REFERRAL ~ Subjective Date/Time of Service: Date of Service: 05/29/2020 Time of Service: 11:28 Chief Complaint: Patient is here for 6 month follow up appt with lab work. HPI: Tangela presents in follow-up. Her hemoglobin is normal. Ferritin is normal. She does have some mild new renal sufficiency. I will notify her doctor Dr. Wadsworth. We will see her in 6 months. [...] Rash Penicillins Allergy (Verified 11/28/19 10:23) Hives Wzyzorc-Wcl-Qvi Reductase Inhibitor Allergy (Verified 11/28/19 10:23) Unknown [...] Neut % (Auto) 50.8,Lymph % (Auto) 30.1, Warren % (Auto) 14.9, Eos % (Auto) 3.3, Baso % (Auto) 0.9, Neut # (Auto) 4.4, Lymph # (Auto) 2.6, Warren # (Auto) 1.3 H, Eos # (Auto) 0.3, Baso # (Auto) 0.1, Nucleated RBC % (auto) 0.2 Assessment and Plan (1) Iron deficiency anemia Continue plan to follow-up. We will see her in 6 months for repeat CBC and ironstores. She does have some mild new renal sufficiency with a creatinine of 1.14. I willnotify Dr. Wadsworth. - Time with Patient Coordination of Care & Counseling Time: Greater than 50% of time spent with patient was for coordination of care (as documented) and gygm-ge-smzr counseling of patient and/or family. Dictated By: Nicho Salcedo MD DD/ [id number] Signed By: <Electronically signed by MD Nicho Salcedo> 05/29/20 1130 [facility] Work Phone: [phone] 130-343205-20-2020 Progress note Author Nicho Salcedo [facility] November 28, 2019 12:52pm Note Date/Time November 28, 2019 12:50 pm [facility] [place] [address] Hem/Onc Follow Up Note - OP Signed Patient: Tangela Moss MR#: [id number] : 1940 Acct:[id number] Age/Sex: 79 / F Type: REG RCR Copies to: Kvng Wadsworth,DO SELF,REFERRAL ~ Subjective Date/Time of Service: Date [...] Rash Penicillins Allergy (Verified 11/28/19 10:23) Hives Ftfrnqy-Ufu-Rzm Reductase Inhibitor Allergy (Verified 11/28/19 10:23) Unknown [...] Neut % (Auto) 49.9,Lymph % (Auto) 27.3, Warren % (Auto) 15.1, Eos % (Auto) 6.5, Baso % (Auto) 1.2, Neut # (Auto) 4.3, Lymph # (Auto) 2.4, Warren # (Auto) 1.3 H, Eos # (Auto) [...] for coordination of care (as documented) and spwi-rp-tqnh counseling of patient and/or family. Dictated By: Nicho Salcedo MD DD/ 1249 Signed By: <Electronically signed by MD Nicho Salcedo> 11/28/19 1252 [facility] Work Phone: Evaluation note* Diagnosis Iron deficiency- Primary Iron deficiency anemia, unspecified [facility]* Diagnosis Iron deficiency anemia, unspecified iron deficiency anemia type- Primary Iron deficiency Iron deficiency anemia, unspecified [facility] Diagnosis Iron deficiency- Primary Iron deficiency anemia, unspecified [facility] encounter [facility] noteNo assessment information availableFisher[facility] Work Phone: Evaluation noteNo InformationNort [employer] Other Evaluation note* Diagnosis Onset Date Resolution [...] acute Medicare annual wellness visit, subsequent noneactive [facility] Work Phone: Evaluation note* Diagnosis Myasthenia gravis (CMS/[facility])- Primary Myasthenia gravis without exacerbation Ptosis of left eyelid Unspecified ptosis of eyelid Left abducens nerve palsy [facility]* Diagnosis DDD (degenerative disc disease), lumbar- Primary Degeneration of lumbar or lumbosacral intervertebral disc [facility]* Diagnosis Chronic low back pain, unspecified back pain laterality, unspecified whether sciatica present- Primary DDD (degenerative disc disease), lumbar Degeneration of lumbar or lumbosacral intervertebral disc Spinal stenosis of lumbar region, unspecified whether neurogenic claudication present [facility] this encounter [facility]* Diagnosis Ptosis of left eyelid- Primary Unspecified ptosis of eyelid Left abducens nerve palsy documented in this encounter [facility] Healthcare[facility] and physical note Author Jeyson Diaz [facility] July 26, 2022 8:09am Note Date/Time July 26, 2022 8 :09am [facility] [address] [place] [address] Gastroenterology H&P Signed Patient: Tangela Moss MR#: [id number] : 1940 Acct:[id number] Age/Sex: 82 / F Adm Date: 3 Loc: Room: Type: [facility] Attending Dr: Jeyson Diaz MD Copies to: Kvng Wadsworth,DO Jeyson Diaz MD~ Date of Service: 07/26/2022 [...] <Electronically signed by Jeyson Diaz MD> 07/26/22808 [facility] Work Phone: History and physical note Author Jeyson Diaz [facility] October 28, 2022 1:13pm Note Date/Time October 28, 2022 1:[address] [facility] [address] [place] [address] Gastroenterology H&P Signed Patient: Tangela Moss MR#: [id number] : 1940 Acct:[id number] Age/Sex: 82 / F Adm Date: 3 Loc: Room: Type: [facility] Attending Dr: Jeyson Diaz MD Copies [...] signed by Jeyson Diaz MD> 10/28/22 1313 [facility] Work Phone: Hisnomj general Narrative - Reported* Type Description Date Medical History Cervical spondylosis Medical History Vitamin D deficiency Medical History Hyponatremia Medical History Malaise Medical History Fatigue Medical History Depression screening Medical History Encounter for screening breast e xamination Medical History Leukocytosis Medical History 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 Medical History Essential hypertension Medical History [...] History colonoscopy 07/26/22 Hospitalization History see above [email or web address] Other Hisaism general Narrative - Reported* Type Description Date Medical History Cervical spondylosis Medical History Vitamin D deficiency Medical History Hyponatremia Medical History Malaise Medical History Fatigue Medical History Depression screening Medical History Encounter for screening breast e xamination Medical History Leukocytosis Medical History Chronic opac-[id number]-90 syndrome Medical History Essential hypertension Medical History [...] w/ biopsy 10/2022 Hospitalization History see above [email or web address] Other History general Narrative - Reported* Type Description Date Medical History Cervical spondylosis Medical History Vitamin D deficiency Medical History Hyponatremia Medical History Malaise Medical History Fatigue Medical History Depression screening Medical History Encounter for screening breast e xamination Medical History Leukocytosis Medical History 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 - Office number [phone]. [facility] Work Phone: Hospital Discharge instructions Additional Instructions [...] NOT operate machinery such as power tools, [employer]s, Property [employer], [employer] machines, etc. for 24 hours. - Avoid [...] problems. -Follow up with PCP. -Office number [phone]. [facility] Work Phone: Hospital Discharge instructions Additional Instructions [...] problems. -Follow up with PCP. -Office number [phone]. [facility] Work Phone: Reason for referral (narrative)* Consultation (Routine) - Authorized Specialty Diagnoses / Procedures Referred By Jane t Referred To Contact Pain Medicine Diagnoses Spinal stenosis of lumbar region, unspecified whether neurogenic claudication present Procedures CT OFFICE/OUTPATIENT [facility] 60 MINUTES Nicho Mccoy DO [address] [place] [address] Ozzy Winters MD [address] [facility], [address], [place] [address] Referral ID Status Reason Start Date Expiration Date Visits Requested Visits Authorized [id number] Authorized Consult and Treat 03/20/2024 09/16/2024 1 1 [facility] Summary Purpose Family History Relationship Condition Age [...] mother Unknown Heart disease Unknown Advance Directives Advance Directive Response Recorded [...] kidney disease Medicare annual wellness visit, subsequent Reason for Referral Specialty Diagnoses / Procedures Referred By Jane bliss Referred To Contact Diagnoses Myasthenia gravis ([facility]) 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 Scheduling [address] [place] [address] Referral ID Status Reason Start Date Expiration Date V isits Requested Visits Authorized [id number] Pending Review 03/01/2024 08/28/2024 1 1 Additional Source Comments INFORMATION SOURCE (unrecogn ized section and content) DATE CREATED AUTHOR 01/06/2018 Bethany craig DATE CREATED AUTHOR AUTHOR'S ORGANIZ ATION 08/04/2022 [facility] DATE CREATED AUTHOR AUTHOR'S ORGANIZ ATION 11/10/2022 [facility] p[facility] DATE CREATED AUTHOR AUTHOR'S ORGANIZ ATION 03/25/2024 [facility] DATE CREATED AUTHOR AUTHOR'S ORGANIZ ATION 05/09/2024 [facility] DATE CREATED AUTHOR AUTHOR'S ORGANIZ ATION 06/24/2024 [facility] EPIC Source Comments (unrecognize d section and content) In the event this informatio n is protected by the Federal Confidentiality of Alcohol and Drug Abuse Patient Records regulations: The Federal rules restrict any use of the information to criminally investigate or prosecute any alcohol or drug abuse patient.[facility] HospitalIn the event this information is protected by the Federal Confidentiality of Alcohol and Drug Abuse Patient Records regulations: The Federal rules restrict any use of the information to criminally investigate or prosecute any alcohol or drug abuse patient.[facility] HospitalIn the event this information is protected by the Federal Confidentiality of Alcohol and Drug Abuse Patient Records regulations: The Federal rules restrict any use of the information to criminally investigate or prosecute any alcohol or drug abuse patient.[facility] HospitalIn the event this information is protected by the Federal Confidentiality of Alcohol and Drug Abuse Patient Records regulations: The Federal rules restrict any use of the information to criminally investigate or prosecute any alcohol or drug abuse patient.[facility] HospitalIn the event this information is protected by the Federal Confidentiality of Alcohol and Drug Abuse Patient Records regulations: The Federal rules restrict any use of the information to criminally investigate or prosecute any alcohol or drug abuse patient.[facility] HospitalIn the event this information is protected by the Federal Confidentiality of Alcohol and Drug Abuse Patient Records regulations: The Federal rules restrict any use of the information to criminally investigate or prosecute any alcohol or drug abuse patient.[facility] Care Teams (unrecognized sec tion and content) Team Status: Active Member Role Status Dates Kvng Wadsworth DO Primary Care Provider Active Team Status: Inactive Member Role Status Dates Kvng Wadsworth DO Primary Care Provider Active Jeyson Diaz MD Attending Provider Active Delivery Room Supervisor Relationship Specialty Start Date End Date Kvng Wadsworth DO PCP - General Internal Medicine 11/14/14 Delivery Room Supervisor Relationship Specialty Start Date End Date Kvng Wadsworth DO PCP - General Internal Medicine 11/14/14 Delivery Room Supervisor Relationship Specialty Start Date End Date Kvng Wadsworth DO PCP - General Internal Medicine 11/14/14 Delivery Room Supervisor Relationship Specialty Start Date End Date Kvng Wadsworth DO PCP - General Internal Medicine 11/14/14 Delivery Room Supervisor Relationship Specialty Start Date End Date Kvng Wadsworth DO PCP - General Internal Medicine 11/14/14 Delivery Room Supervisor Relationship Specialty Start Date End Date Kvng Wadsworth DO PCP - General Internal Medicine 11/14/14 Team Status: Inactive Member Role Status Dates Kvng Wadsworth DO Primary Care Provide r, Attending Provider Active Start: January 02, 2024 End: January 02, 2024 Team Status: Inactive Member Role Status Dates Kvng Wadsworth DO Primary Care Provider Active Start: March 16, 2024 End: March 16, 2024 Lorelei Hurtado DO Attending Provider Active Start: March 16, 2024 End: March 16, 2024 Delivery Room Supervisor Relationship Specialty Start Date End Date Kvng Wadsworth MD [address] [id number] PCP - General Internal Medicine 01/25/24 Delivery Room Supervisor Relationship Specialty Start Date End Date Kvng Wadsworth MD [address] [id number] PCP - General Internal Medicine 01/25/24 Delivery Room Supervisor Relationship Specialty Start Date End Date Kvng Wadsworth MD [address] [place] [phone] PCP - General Internal Medicine 01/25/24 Delivery Room Supervisor Relationship Specialty Start Date End Date Kvng Wadsworth MD [address] [place] [address] PCP - General Internal Medicine 01/25/24 Delivery Room Supervisor Relationship Specialty Start Date End Date Kvng Wadsworth MD [address] [place] [phone] PCP - General Internal Medicine 01/25/24 Delivery Room Supervisor Relationship Specialty Start Date End Date Kvng Wadsworth MD [address] [place] [facility] [address] PCP - General Internal Medicine 01/25/24 Delivery Room Supervisor Relationship Specialty Start Date End Date Kvng Wadsworth MD [address] [place] [facility] [address] PCP - General Internal Medicine 01/25/24 Delivery Room Supervisor Relationship Specialty Start Date End Date Kvng Wadsworth MD [address] [place] [facility] [address] PCP - General Internal Medicine 01/25/24 Reason for Visit (unrecogniz ed section and content) Reason Comments Anemia Transition of care. Ref back by Dr. Wadsworth Reason Comments Benefits Investigation Specialty Diagnoses / Procedures Referred By Contsuraj t Referred To Contact Diagnoses Iron deficiency anemia, unspecified iron deficiency anemia type Iron deficiency Mavis Santiago MD [address] [place] [id number] Admon Treat [address] [place] [address] Referral ID Status Reason Start Date Expiration Date V isits Requested Visits Authorized [id number] Authorized 05/18/2022 08/16/2022 99 99 Reason Comments Anemia 10 week follow up Reason Onset Date Comments referral 03/13/2024 Reason Comments Follow-up Goals (unrecognized section and content) Goals may [...] BE BASED ON THE PRIMARY CLINICAL RECORDS. [facility] [employer] [facility]. provides no warranty or guarantee of the accuracy or completeness of information in this document.
== END 2024-07-10 10:20 | disposition home or self-care (01) ==
LOC: US 10:19
PROVIDERS: PCP Internal Medicine; Visit Provider Internal Medicine
DX: R09.89 Other specified symptoms and signs involving the circulatory and respiratory systems (principal)
CPT/HCPCS: 93880

== ENCOUNTER 2024-10-25 09:52 | Outpatient (OUT) | payer MEDICARE, OTHER, SELFPAY | END 2024-10-25 09:53 | disposition home or self-care (01) | LOC: RAD 09:53 | PROVIDERS: PCP Internal Medicine; Visit Provider Internal Medicine | DX: M81.0 Age-related osteoporosis without current pathological fracture (principal); M85.80 Other specified disorders of bone density and structure, unspecified site | CPT/HCPCS: 77080 ==

== ENCOUNTER 2024-11-01 10:20 | Outpatient (OUT) | payer MEDICARE, OTHER, SELFPAY ==
[2024-11-01 11:07] LABS: BUN Creatinine Ratio 14.4; Carbon Dioxide 30.6 mmol/L (21.0-32.0); Chloride 98 mmol/L (98-107); Estimated GFR (African America >60 (>=60 mL/min/1.73m^2); Estimated GFR (Non-African Ame 54 (>=60 mL/min/1.73m^2); Glucose 94 mg/dL (74-106); Potassium 4.6 mmol/L (3.5-5.1); Sodium 134 mmol/L (136-145)
== END 2024-11-01 10:21 | disposition home or self-care (01) ==
LOC: LAB 10:21
PROVIDERS: PCP Internal Medicine; Visit Provider Internal Medicine
DX: M81.0 Age-related osteoporosis without current pathological fracture (principal)
CPT/HCPCS: 36415; 80048; 82306

== ENCOUNTER 2024-11-08 07:43 | Outpatient (RCR) | payer MEDICARE, OTHER, SELFPAY ==
[2024-11-08 09:58] VITALS: BP 135/55; PULSE 60; TEMP 36.6; O2SAT 96
[2024-11-08] MEDS: ZOLEDRONIC ACID/MANNITOL-WATER 5 MG/100 ML BOTTLE 400 MG IV (10:18)
== END 2024-11-08 13:31 | disposition home or self-care (01) ==
LOC: INF 07:43
PROVIDERS: PCP Internal Medicine; Visit Provider Internal Medicine
DX: M81.0 Age-related osteoporosis without current pathological fracture (principal)
CPT/HCPCS: 96365; J3489

== ENCOUNTER 2025-01-14 15:57 | Outpatient (OUT) | payer MEDICARE, OTHER, SELFPAY ==
--- OUTSIDE RECORDS SUMMARY | 2025-01-01 14:20 | XMS_ITS ---
Author Name Auto Generated Organization OHIP Support Name Relationship Address Phone RAVINDRA TRINIDAD Next of Kin Unknown [phone] ISA III, GEROGE Next of Kin Unknown [phone] SHIRLEY BENDER Next of Kin Unknown + RAVINDRA TRINIDAD Next of Kin Unknown [phone] ISA III, GEROGE Next of Kin Unknown [phone] SHIRLEY BENDER Next of Kin Unknown + RAVINDRA TRINIDAD Next of Kin Unknown [phone] ISA III, GEROGE Next of Kin Unknown [phone] SHIRLEY BENDER Next of Kin Unknown + RAVINDRA TRINIDAD Next of Kin Unknown [phone] SHIRLEY BENDER Next of Kin Unknown + RAVINDRA TRINIDAD Next of Kin Unknown [phone] SHIRLEY BENDER Next of Kin Unknown + Bill Trinidad Next of Kin [address] [place] [address] + RAVINDRA TRINIDAD Next of Kin Unknown [phone] SHIRLEY BENDER Next of Kin Unknown + RAVINDRA TRINIDAD Next of Kin Unknown [phone] SHIRLEY BENDER Next of Kin Unknown + RAVINDRA TRINIDAD Next of Kin Unknown [phone] SHIRLEY BENDER Next of Kin Unknown + RAVINDRA TRINIDAD Next of Kin Unknown [phone] SHIRLEY BENDER Next of Kin Unknown + Care Team Providers Care Credit Interviewer Name Role Phone CESARIO COBIAN Attending Unavailable TEENA WADSWORTH Referring Unavailable CESARIO COBIAN Attending Unavailable TED GILMORE Attending Unavailable TED GILMORE Referring Unavailable LORELEI HURTADO Attending LORELEI Black Attending Unavailable NICHO MARC Attending Unavailable LORELEI HURTADO Attending Unavailable STACEY BLANCO Attending Unavailable KVNG MELGAR Referring Unavailable Kvng Melgar Primary Care Unavailable Lorelei Hurtado Attending Unavailab Lorelei Wetzel Admitting Unavailab Chris REDD, Charlotte Costa Attending Unavailable Gurmeet REDD, Charlotte Costa Attending Unavailable Gurmeet REDD, Charlotte Costa Attending Unavailable PROBLEMS DATE TYPE CONDITION / CODE ATTENDING STATUS [facility] 03/16/2024 Unknown Myasthenia gravi s without (acute) exacerbation / G70.00(ICD-10) Lorelei Hurtado Active [facility] PROCEDURES No Procedure Records Found RESULTS CT CHEST W CON Observed: 03/16/2024 2:03 PM Status: COMPLETED Source: [facility] [place] [address] CT Scan Report Signed Patient: Tangela Trinidad MR#: [id number] : 1940 Acct:[id number] Age/Sex: 84 / F ADM Date: 03/16/24 Loc: CT Room: Type: [facility] Attending Dr: Lorelei Hurtado DO Copies to: [...] Viveros Jr., D.OOrlin03/16/2024 2:09 PM Dictation Location: [place] [address] Transcribed By: [facility] 03/16/24 1409 Dictated By: Bert Vivreos Jr, DO 03/16/24 1403 Signed By: <Electronically signed by Bert Viveros Jr, DO in OV> 03/16/24 140 CREATININE Collected: 03/16/2024 9:49 AM Status: F Source: [facility] TYPE CODE TESTS RESULT OUT OF RANGE REFERENCE UNITS LAB CREATT Creatinine 0.83 Normal 0.60-1.20 mg/dL LAB GFReNR Estimated GFR > 60.0 Result Comment: PERFORMED BY : [place] [address] PATHOLOGIST PCU RN SPEEDY GRAY M.D. Performed By: #### CREAT ### # [address] ALLERGIES DATE TYPE / CODE NAME / CODE REACTION SEVERITY SOURCE 03/16/2024 Drug Allergy/15599 8002(SNOMED CT) Cephalosporins/F00 9914969(RXNORM) Unknown Reaction Unknown [facility] 03/16/2024 Drug Allergy/18028 8002(SNOMED CT) nitrofurantoin/F00 5720543(RXNORM) Rash Unknown [facility] 03/16/2024 Drug Allergy/14305 8002(SNOMED CT) povidone-iodine/F0 21724892(RXNORM) Hives Unknown [facility] 10/12/2023 Drug Allergy/17036 8002(SNOMED CT) Enznnyx-BVU-YeM Reductase Inhibitor/W2076926 95(RXNORM) Unknown Reaction, muscle aches Unknown [facility] ENCOUNTERS ADMIT/DISCHARGE ACCOUNT NUMBER ADMITTING ENCOUNTER CLASS LOCATION SOURCE 01/01/2025/01/02/20 [id number] Ambulatory Building:NOM S NB [facility] 09/24/2024/09/25/19 [id number] Ambulatory Building:NOM S [facility] 06/21/2024/06/21/20 24 [id number] Ambulatory Building:R NEURO [facility] 04/23/2024/04/23/20 24 [id number] [place] [facility] 04/09/2024/04/09/20 24 [id number] Ambulatory PM [place]PM [facility] 04/02/2024/04/02/20 24 [id number] Ambulatory PM [place]PM [facility] 03/29/2024/03/29/20 24 [id number] Ambulatory Building:R NEURO [facility] 03/20/2024/03/20/20 24 [id number] Ambulatory Building:[facility] 03/16/2024/03/16/20 24 [id number] Lorelei Hurtado [facility] 03/01/2024/03/01/20 24 [id number] Ambulatory Building:BSR NEURO [facility] 01/31/2024/01/31/20 24 [id number] Ambulatory Building:R NEURO [facility] 01/25/2024/01/25/20 24 [id number] Ambulatory Building:[facility] 01/25/2024/01/25/20 24 [id number] Ambulatory Building:[facility] PAYERS ENCOUNTER GUARANTOR PAYER SUBSCRIBER SOURCE 01/01/2025 TANGELA MARINELLI: [id number] [address] [place], [place] [address]Pud: (HP) Primary Insurance:MEDICAREPolic y Number: [id number] Date:3633-10-29Qass Name:Medicare SANDRA L PEACOCKDOB: [id number] [address] [place]KMRLCQGB, [place] [address] [facility] EPIC 01/01/2025 Secondary [facility] Number: [id number] Date:2023-07-11 BILL TRINIDADDOB: [id number] [address] [place] [address] [facility] EPIC 09/24/2024 TANGELA ENCINASB: [address] [id number], [place] [address]Sas: () Primary Insurance:MEDICAREPolic y Number: [id number] Date:9448-14-42Kcsi Name:Medicare SANDRA L PEACOCKDOB: [id number] [address] [place], [place] [address] [facility] EPIC 09/24/2024 Secondary Insurance:[facility] Number: [id number] Date:2023-07-11 BILL TRINIDADDOB: [id number] [address] [address] [facility] EPIC 06/21/2024 TANGELA ENCINASB: [address] I6ENJHIYEM, [place] [address]Ijw: (HP) Primary Insurance:MEDICAREPolic y Number: [id number] Date:8893-36-95Srqr Name:Medicare SANDRA L PEACOCKDOB: [id number] [address] [place]3FQPPCJEN, [place] [address] [facility] EPIC 06/21/2024 Secondary Insurance:[facility] Number: [id number] Date:2023-07-11 BILL TRINIDADDOB: [id number] [address] [address] [facility] 04/23/2024 Tangela DaviescockDOB: [place] [address] Primary Insurance:[facility] HospitalPolicy Number: Effective Date:3586-52-28Judr Name:[facility]ITAL[facility]aine O Inna Hernadez80659[place]dq[place], [place] [address]TS: Tangela Banks PeacockDOB: [id number] [place] [address] [facility] 04/23/2024 Secondary Insurance:[facility]Policy [facility]: Effective Date:5817-36-26Irwd Name:COMP O Inna [address] [place] [address]BD: Tangela Banks PeacockDOB: [id number] [place] [address] [facility] 04/09/2024 Tangela Banks PeacockDOB: [place] [address] Primary Insurance:[facility] Number: Effective Date:0800-01-60Qntc Name:[facility]ITALElaine O Inna Hernadez97384Oypfsqc, [place] [address]PQ: Tangela Banks PeacockDOB: [id number] [address], [facility] 04/09/2024 Secondary Insurance:[facility] HospitalPolicy Number: Effective Date:6755-03-51Wlly Name:COMP O Inna [address] [place] [address]XZ: Tangela Banks PeacockDOB: [id number] [place] [address] [facility] 04/02/2024 Tangela Banks PeacockDOB: [place] [address] Primary Insurance:[facility] HospitalPol[facility] Number: Effective Date:3861-18-47Rlit Name:[facility]PITALElaine O Inna Hernadez16991Yxfsezk, [place] [address]SG: Tangela Banks PeacockDOB: [id number] [place] [address] [facility] 04/02/2024 Secondary Insurance:[facility] HospitalPolicy Number: Effective Date:9798-15-60Heoy Name:HEATHER Keith [address]169[place] [address]EM: Tangela Banks PeacockDOB: [id number] [place] [address] [facility] 03/29/2024 TANGELA Banks PEACOCKDOB: [address] O5ZHOEKSJC, [place] [address]Nrl: (HP) Primary Insurance:MEDICAREPolic y Number: [id number] Date:9820-39-77Sifk Name:Medicare TANGELA DAVIESCOCKDOB: [id number] [address]5GRIDQFSG, [place] [address] [facility] 03/29/2024 Secondary Insurance:[facility]PITALPolic Number: [id number] Date:2023-07-11 BILL Hi PEACOCKDOB: [id number] [address] [address] [facility] 03/20/2024 TANGELA Banks PEACOCKDOB: [address] [id number], [place] [address]Gme: (HP) Primary Insurance:MEDICAREPolic y Number: [id number] Date:5449-64-93Dzjw Name:Medicare TANGELA Banks PEACOCKDOB: [id number] [address] H5KJFPFMZL, [place] [address] [facility] 03/20/2024 Secondary Insurance:[facility]ITALPolicy Number: [id number] Date:2023-07-11 BILL Hi PEACOCKDOB: [id number] [address] [address] [facility] 03/16/2024 Tangela Daviescock103 [address]Vicarmela G7Vraoxkhx, [place] [address]Atn: () Primary Insurance:MedicarePolic y Number: [id number] Date:2024-03-01 Tangela DaviescockDOB: [id number] [address] DrDinor[address] S1Jopjjxyn, [place] [address]Hbj: () [facility] 03/16/2024 Secondary Insurance:[facility] HospitalPolicy Number: [id number] Date:2024-03-01 Bill Franciscan HealthcockDOB: 3587-48-12TZKN[id number] [place], [place] [address]Oga: () [facility] 03/16/2024 Tertiary Insuran ce:Self PayPolicy Number: Effective Date:2024-03-14 [facility]EN[facility] 03/01/2024 TANGELA DAVIESCOCKDOB: [address] N1MPXIJUPS, [place] [address]Mee: () Primary Insurance:MEDICAREPolic y Number: [id number] Date:9539-41-43Qeid Name:Medicare TANGELA DAVIESCOCKDOB: [id number] [address] [place]8JDRSREFD, [place] [address] [facility] 03/01/2024 Secondary Insurance:[facility]ALTHCAREPolicy Number: [id number] Date:2023-07-11 BILL Hi PEACOCKDOB: [id number] [address] [address] [facility] 01/31/2024 TANGELA DAVIESCOCKDOB: [address] I6WBGRYDWG, [place] [address]Ttj: () Primary Insurance:MEDICAREPolic y Number: [id number] Date:5214-06-71Cafd Name:Medicare TANGELA ENCINASB: [id number] [address] K8LKPCZCJO, [place] [address] [facility] EPIC 01/31/2024 Secondary Insurance:[facility]ALTH[facility]AREPolicy Number: [id number] Date:2023-07-11 BILL TRINIDADDOB: [id number] [address] [address] [facility] EPIC 01/25/2024 TANGELA ENCINASB: [address] S0FHKTMBWB, [place] [address]Lxj: (HP) Primary Insurance:MEDICAREPolic y Number: [id number] Date:8132-17-36Ejxi Name:Medicare SANDRA L PEACOCKDOB: [id number] [address] N9JEUDGXYB, [place] [address] [facility] EPIC 01/25/2024 Secondary Insurance:[facility] HEALTHCAREPolicy Number: [id number] Date:2023-07-11 BILL TRINIDADDOB: [id number] [address] [address] [facility] 01/25/2024 TANGELA ENCINASB: [address] S1AQFMIUIQ, [place] [address]Jri: (HP) Primary Insurance:MEDICAREPolic y Number: [id number] Date:7489-62-54Gvfd Name:Medicare TNAGELA TRINIDADDOB: [id number] [address] B4FAGKPLIU, [place] [address] [facility] 01/25/2024 Secondary Insurance:[facility] HEALTHCAREPolicy Number: [id number] Date:2023-07-11 BILL TRINIDADDOB: [id number] [address] [address] [facility]
[2025-01-14 16:22] LABS: Hematocrit 42.1 % (36.0-48.0); Hemoglobin 14.0 g/dL (12.0-16.0); Immature Granulocytes Abs Auto 0.03 10^3/uL (0.00-0.03); Immature Granulocytes Pct Auto 0.4 % (0.0-0.5); Lymphocytes Absolute Auto 3.3 10^3/uL (1.2-3.8); Mean Corpuscular HGB Conc 33.3 g/dL (29.9-35.2); Mean Corpuscular Hemoglobin 29.1 pg (26.7-34.0); Mean Corpuscular Volume 87.5 fL (81.0-99.0); Platelet Count 283 10^3/uL (150-450); Red Blood Count 4.81 10^6/uL (4.20-5.40); White Blood Count 8.0 10^3/uL (4.0-11.0)
[2025-01-14 16:40] LABS: Alanine Aminotransferase 24 U/L (14-59); Albumin Globulin Ratio 1.1; Albumin Level 3.8 g/dL (3.4-5.0); Alkaline Phosphatase 68 U/L (46-116); Anion Gap 13.8; Aspartate Amino Transferase 31 U/L (15-37); Blood Urea Nitrogen 15.0 mg/dL (7.0-18.0); Calcium 9.1 mg/dL (8.5-10.1); Carbon Dioxide 29.2 mmol/L (21.0-32.0); Chloride 98 mmol/L (98-107); Cholesterol 212 mg/dL (<=200); Estimated GFR (African America >60 (>=60 mL/min/1.73m^2); Estimated GFR (Non-African Ame >60 (>=60 mL/min/1.73m^2); Globulin 3.5 g/dL; Glucose 85 mg/dL (74-106); HDL Cholesterol 68 mg/dL (40-60); Potassium 4.0 mmol/L (3.5-5.1); Sodium 137 mmol/L (136-145); Thyroid Stimulating Hormone 2.358 uIU/mL (0.358-3.740); Total Protein 7.3 g/dL (6.4-8.2); Triglycerides 187 mg/dL (<=150); VLDL CHOLESTEROL 37.4 mg/dL
== END 2025-01-14 15:58 | disposition home or self-care (01) ==
LOC: LAB 16:01
PROVIDERS: PCP Internal Medicine; Visit Provider Internal Medicine
DX: E78.00 Pure hypercholesterolemia, unspecified (principal); E03.9 Hypothyroidism, unspecified; N18.31 Chronic kidney disease, stage 3a; I10 Essential (primary) hypertension
CPT/HCPCS: 36415; 80053; 80061; 84443; 85025

== ENCOUNTER 2025-04-12 23:48 | Emergency (ER) | payer MEDICARE, OTHER, SELFPAY ==
[2025-04-12 23:53] VITALS: BP 169/100; PULSE 74; TEMP 36.8; O2SAT 97; BMI 25.5
--- NOTE | 2025-04-12 23:59 | ED.GENADUL1 ---
HPI HPI - General Adult General Chief complaint: Fall Stated complaint: head injury Time Seen by Provider: 04/12/25 23:54 Source: patient Mode of arrival: walk-in Limitations: no limitations History of Present Illness HPI narrative: 85-year-old female presents to the emergency department for an injury to her forehead. She tripped and fell and hit her right forehead on concrete floor. No LOC and she does not have neck pain. No other injury was sustained and this happened just before coming into the emergency department. She does not believe she is on any blood thinners. The pain is mild. Related Data Home Medications ?Medication ?Instructions ?Recorded ?Confirmed amlodipine 5 mg tablet 5 mg PO DAILY 04/02/24 04/13/25 atenolol 25 mg tablet 25 mg PO DAILY 04/02/24 04/13/25 levothyroxine 112 mcg tablet 112 mcg PO DAILY 04/02/24 04/13/25 multivitamin (Daily Multi-Vitamin 1 tab PO DAILY 04/02/24 04/13/25 tablet) pantoprazole 40 mg tablet,delayed 40 mg PO DAILY 04/02/24 04/13/25 release tramadol 50 mg tablet 50 mg PO Q8H PRN pain 04/02/24 04/13/25 lydvvuo-jjsqufcvuoouv-crzvebdw 250 1 tab PO Q6H PRN pain 04/23/24 04/13/25 mg-250 mg-65 mg tablet (Excedrin Extra Strength) calcium 600 mg (as 1 tab PO DAILY 04/13/25 04/13/25 carbonate)-vitamin D3 5 mcg (200 unit) tablet famotidine 20 mg tablet (Pepcid AC) 20 mg PO DAILY 04/13/25 04/13/25 famotidine 20 mg tablet (Pepcid) 20 mg PO DAILY 04/13/25 04/13/25 latanoprost 0.005 % eye drops 1 drp ophthalmic (eye) DAILY 04/13/25 04/13/25 omega-3 fatty acids 500 mg PO DAILY 04/13/25 04/13/25 vitamins A,C,E-stxf-jfgggs 4,296 1 cap PO DAILY 04/13/25 04/13/25 mcg-226 mg-90 mg capsule Allergies Allergy/AdvReac Type Severity Reaction Status Date / Time Penicillins Allergy Unknown Unknown Verified 04/13/25 00:03 Sulfa (Sulfonamide Allergy Unknown Unknown Verified 04/13/25 00:03 Antibiotics) vancomycin Allergy Unknown Unknown Verified 04/13/25 00:03 Cephalosporins AdvReac Unknown Verified 04/13/25 00:03 gabapentin AdvReac Unknown Verified 04/13/25 00:03 nitrofurantoin (From AdvReac Unknown Verified 04/13/25 00:03 Macrodantin) pregabalin AdvReac Unknown Verified 04/13/25 00:03 STATINS Allergy Unknown Unknown Uncoded 04/13/25 00:03 Opioid HPI Opioid Management Most Recent Opioid Data: Last Pain Scale 7 05/13/24, 02:25 Last ORT Total Score 0 05/12/24, 11:40 Last ORT Risk Category Low Risk 05/12/24, 11:40 Review of Systems ROS Narrative A ten point review of systems is negative except as noted above. [facility] Medical History (Updated 04/13/25 @ 03:40 by Gage Good MD) Lumbar stenosis with neurogenic claudication ?M48.062 - Spinal stenosis, lumbar region with neurogenic claudication (ICD-10) HLD (hyperlipidemia) ?E78.5 - Hyperlipidemia, unspecified (ICD-10) Hypothyroid ?E03.9 - Hypothyroidism, unspecified (ICD-10) Cystocele with rectocele ?N81.10 - Cystocele, unspecified (ICD-10) ?N81.6 - Rectocele (ICD-10) Anemia ?D64.9 - Anemia, unspecified (ICD-10) Hearing deficit ?H91.90 - Unspecified hearing loss, unspecified ear (ICD-10) Stomach ulcer ?K25.9 - Gastric ulcer, unspecified as acute or chronic, without hemorrhage or perforation (ICD-10) History of hypothyroidism ?Z86.39 - Personal history of other endocrine, nutritional and metabolic disease (ICD-10) High blood cholesterol level ?E78.00 - Pure hypercholesterolemia, unspecified (ICD-10) Angina at rest ?I20.89 - Other forms of angina pectoris (ICD-10) High blood pressure ?I10 - Essential (primary) hypertension (ICD-10) Surgical History History of blepharoplasty ?Z98.890 - Other specified postprocedural states (ICD-10) History of total right knee replacement ?Z96.651 - Presence of right artificial knee joint (ICD-10) History of hysterectomy ?Z90.710 - Acquired absence of both cervix and uterus (ICD-10) History of lumbar fusion ?Z98.1 - Arthrodesis status (ICD-10) History of fusion of cervical spine ?Z98.1 - Arthrodesis status (ICD-10) History of appendectomy ?Z90.49 - Acquired absence of other specified parts of digestive tract (ICD-10) Family History (Updated 05/12/24 @ 11:37 by Khalida Astudillo) Mother Family history of CHF (congestive heart failure) Family history of cancer Brother Family history of COPD (chronic obstructive pulmonary disease) Sister Family history of cancer Family history of diabetes mellitus Family history of myocardial infarction Family history of stroke Social History (Updated 05/12/24 @ 11:38 by Khalida Astudillo) Within the past year, how often did you have a drink containing alcohol: never Within the past year, how often did you have six or more drinks on one occasion: never Score interpretation: A score less than 3 is consistent with normal alcohol consumption. Smoking status: Never smoker Non-prescribed substance use: denies use Highest level of school completed/degree received: some college, no degree Are you now , , , , never or living with a partner: living with partner In a typical week, how many times do you talk on the telephone with family, friends, or neighbors: 3 or more times per week How often do you get together with friends or relatives: 3 or more times per week How often do you attend zoroastrian or denominational services: never Do you belong to any clubs or organizations such as zoroastrian groups unions, fraternal or athletic groups, or school groups: no Total score: 2 Score interpretation: A score of greater than or equal to 2 indicates the lowest level of social isolation. Little interest or pleasure in doing things: not at all Feeling down, depressed, or hopeless: not at all Feel stressed/tense/nervous/anxious/difficulty sleeping: not at all Exam Narrative Exam Narrative: Nurses note and vital signs reviewed and patient is not hypoxic. General:The patient appears well and in no apparent distress.Patient is resting comfortably on cart. Skin:Warm, dry, no pallor noted.There is no rash noted. Head:Normocephalic, small hematoma present on the right forehead. No laceration. C-spine nontender. Eye: Normal conjunctiva, no drainage Ears, Nose, Mouth, and Throat: oral mucosa is moist. Nares patent. Cardiovascular:Regular Rate and Rhythm Respiratory:Patient is in no distress, no accessory muscle use, lungs are clear to auscultation, no wheezing, rales or rhonchi Back:non-tender GI: Soft and nontender Musculoskeletal: No palpable tenderness to her 4 extremities Neurological: Awake and alert Psychiatric:Cooperative Constitutional Vital Signs, click to edit/add: Last Vital Signs Temp 98.2 F 04/12/25 23:53 Pulse 67 04/13/25 00:27 Resp 20 04/13/25 00:27 BP 145/92 H 04/13/25 00:27 Pulse Ox 99 04/13/25 00:27 O2 Del Method Room Air 04/13/25 00:27 Course Vital Signs Vital signs: Vital Signs Temperature 98.2 F 04/12/25 23:53 Pulse Rate 74 04/12/25 23:53 Respiratory Rate 20 04/12/25 23:53 Blood Pressure 169/100 H 04/12/25 23:53 Pulse Oximetry 97 04/12/25 23:53 Oxygen Delivery Method Room Air 04/12/25 23:53 Temperature 98.2 F 04/12/25 23:53 Pulse Rate 67 04/13/25 00:27 Respiratory Rate 20 04/13/25 00:27 Blood Pressure 145/92 H 04/13/25 00:27 Pulse Oximetry 99 04/13/25 00:27 Oxygen Delivery Method Room Air 04/13/25 00:27 Medical Decision Making [facility] Narrative Medical decision making narrative: CT of brain and C-spine are negative and the patient is released home. Findings are discussed with the patient and her family. Differential Diagnosis Differential Diagnosis: Contusion, intracranial hemorrhage, C-spine fracture Imaging Data CT scan - head: Radiologist's impression: CT brain and CT C-spine per radiologist show mild generalized brain volume loss, no acute intracranial hemorrhage, no skull fracture, no acute cervical spine fracture or dislocation Discharge Plan Discharge Chief Complaint: Fall Clinical Impression: Fall, Traumatic hematoma of forehead Patient Disposition: Home, Self-Care Time of Disposition Decision: 03:39 Condition: Good Mode of Transportation: Private Vehicle Prescriptions / Home Meds: No Action amlodipine 5 mg tablet 5 mg PO DAILY atenolol 25 mg tablet 25 mg PO DAILY levothyroxine 112 mcg tablet 112 mcg PO DAILY pantoprazole 40 mg tablet,delayed release (DR/EC) 40 mg PO DAILY tramadol 50 mg tablet 50 mg PO Q8H PRN (Reason: pain) multivitamin [Daily Multi-Vitamin] Tablet 1 tab PO DAILY latanoprost 0.005 % drops 1 drp OPHTHALMIC (EYE) DAILY omega-3 fatty acids Capsule 500 mg PO DAILY famotidine [Pepcid AC] 20 mg tablet 20 mg PO DAILY famotidine [Pepcid] 20 mg tablet 20 mg PO DAILY calcium carbonate-vitamin D3 600 mg-5 mcg (200 unit) tablet 1 tab PO DAILY vitamins A,C,Y-gpjt-rkxiuj 4,296 mcg-226 mg-90 mg capsule 1 cap PO DAILY kqundwo-ltywbqviwwhru-lmxqonpy [Excedrin Extra Strength] 250-250-65 mg tablet 1 tab PO Q6H PRN (Reason: pain) Print Language: Czech Instructions: Fall Prevention for Older Adults (ED), Facial Contusion (ED) Additional Instructions: Phone number for administration is [phone] ext [phone] Phone number for national business director is [phone] ext [phone] Referrals: Kvng Melgar DO [Primary Care Provider, Internal Medicine] - 1 week
--- OUTSIDE RECORDS SUMMARY | 2025-04-13 00:10 | XMS_ITS | CCD ---
Author Organization [facility] Team Providers Care Rebar Worker Name Role Phone Doctor, No Unavailable Unavailable [...] Unavailable DO Kvng Wadsworth Primary Care Provider [phone] MD Jeyson Diaz Attending Provider DR KVNG WADSWORTH Primary Care Unavailable ERMELINDA, DR DE GUZMAN Attending Unavailable BALL, DR DE GUZMAN Admitting Unavailable BALL, DR DE GUZMAN Consulting Unavailable ZIEBALENA, DR ANTHONY Gautam Consulting Unavailable BALL, DR DE GUZMAN Consulting Unavailable BALL, DR DE GUZMAN Admitting Unavailable BALL, DR DE GUZMAN Attending Unavailable BALL, DR DE GUZMAN Primary Care Unavailable BALL, DR DE GUZMAN Admitting Unavailable BALL, DR DE GUZMAN Attending Unavailable BALL, DR DE GUZMAN Consulting Unavailable BALL, DR DE GUZMAN Primary Care Unavailable BALL, DR DE GUZMAN Primary Care Unavailable ALEJANDRO, DR FERGUSON Admitting Unavailable ALEJANDRO, DR FERGUSON Attending Unavailable KATELYNN ., NISSA Admitting Unavailable KATELYNN ., NISSA Attending Unavailable ZIMICHEAL, DR ANTHONY Gautam Consulting Unavailable BALL, DR DE GUZMAN Primary Care Unavailable KATELYNN ., NISSA Consulting Unavailable FLOR ., LIDA Admitting Unavailable FLOR ., LIDA Attending Unavailable FLOR ., LIDA Consulting Unavailable BALL, DR DE GUZMAN Primary Care Unavailable BALL, DR DE GUZMAN Admitting Unavailable BALL, DR DE GUZMAN Attending Unavailable BALL, DR DE GUZMAN Consulting Unavailable BALL, DR DE GUZMAN Primary Care Unavailable BALL, DR DE GUZMAN Admitting Unavailable BALL, DR DE GUZMAN Attending Unavailable BALL, DR DE GUZMAN Consulting Unavailable BALL, DR DE GUZMAN Primary Care Unavailable BALL, DR DE GUZMAN Admitting Unavailable BALL, DR DE GUZMAN Attending Unavailable BALL, DR DE GUZMAN Consulting Unavailable BALL, DR DE GUZMAN Primary Care Unavailable VELIA, BENJAMIN Consulting Unavailable Ball, DO Kvng Primary Care Provider MD Joe Imprice Attending Provider DO Kvng Wadsworth Primary Care Provider MD Jeyson Diaz Attending Provider DO Kvng Wadsworth Primary Care Provider [phone] DO Lorelei Hurtado Attending Provider Kvng Wadsworth Primary [facility] Unavailable Lorelei Hurtado Admitting Unavailab Lorelei Wetzel Attending Unavailab le Kvng Wadsworth Primary Care Unavailable Asaad, Imad Admitting Unavailable Asaad, Imad Attending Unavailable Gurmeet REDD, Andlizabeth Costa Attending Unavailable Gurmeet REDD, Andrius Julissa Attending Unavailable Gurmeet REDD, Saudrius Costa Attending Unavailable Kvng Wadsworth MD Primary Care Provider Kvng Wadsworth DO Primary Care Provider CESARIO COBIAN Attending Unavailable ERMELINDA TEENA Referring Unavailable CESARIO COBIAN Attending Unavailable APLINGVEDA Attending Unavailable APLVEDA ADAME Referring Unavailable LORELEI HURTADO Attending Unavailable LORELEI HURTADO Attending Unavailable NICHO MCCOY Attending Unavailable LORELEI HURTADO Attending Unavailable ALYSSA CORONA Attending Unavailable KVNG WADSWORTH Referring Unavailable Kvng Wadsworth DO Primary Care Provider Kvng Wadsworth DO Attending Provider [phone] Allergies Allergy Classification Reported Allergen(s) Allergy Type Date of Onset Reaction(s) Facility (10 sources) Penicillins; Translations: [PENICILLINS] Drug allergy (disorder) 11-16-19 15 AOF, Hives, Hives, PENICILLINS [facility] Repository Comment on above: Onset Date: 04/30/20 06 (10 sources) Sulfonamides (Antibiotic); Translations: [SULFA (SULFONAMIDE ANTIBIOTICS)] Drug allergy (disorder) 11-16-19 15 AOF, Hives, Hives, Comment:2005 [facility] (9 sources) Hiwrouv-Wbw-Huv Reductase Inhibitor Drug allergy (disorder) 01-06-20 18 Unknown Reaction, Unknown Reaction, muscle aches [facility] (20 sources) Cephalosporins (Antibiotic); Translations: [CEPHALOSPORINS] Drug Allergy 10-24-19 15 Unknown [facility] (7 sources) HMG-CoA reductase inhibitor; Translations: [EXGLLOG-LKJ-INN REDUCTASE INHIBITORS] Drug Allergy 01-06-20 18 Unknown [facility] (20 sources) Nitrofurantoin; Translations: [NITROFURANTOIN MACROCRYSTAL] Drug Allergy 10-12-19 19 Rash, Itching [facility] (6 sources) Penicillins Drug Allergy 11-16-19 15 [facility] (20 sources) Povidone-Iodine; Translations: [POVIDONE-IODINE] Drug Allergy 06-21-20 19 Unknown [facility] (20 sources) Sulfonamides (Antibiotic) Drug Allergy 11-16-19 15 [facility] (20 sources) Vancomycin; Translations: [VANCOMYCIN] Drug Allergy 10-12-19 19 Rash, Itching [facility] (20 sources) Nitrofurantoin; Translations: [nitrofurantoin] Drug Allergy 12-02-19 21 rash [facility] (20 sources) Penicillin G Benzathine Drug allergy rash [facility] Other (20 sources) Sulfacetamide / Sulfur Drug Allergy rash [facility] Other (20 sources) Statins Depletion Drug allergy muscle aches [facility] Other (1 source) black walnut pollen extract Drug Allergy 05-17-20 14 [facility] (1 source) Cephalosporins (Antibiotic) Drug allergy (disorder) 10-24-19 15 [facility] (2 sources) Nitrofurantoin Drug Allergy 10-24-19 15 rash [facility] (1 source) Penicillins Drug allergy (disorder) 01-24-20 13 [facility] (2 sources) Povidone-Iodine Drug Allergy 06-21-20 19 Unknown [facility] (1 source) Sulfonamides (Antibiotic) Drug allergy (disorder) 01-31-20 13 [facility] (1 source) Vancomycin Drug Allergy 10-24-19 15 [facility] (20 sources) Statins Depletion *DIETARY PRODUCTS/DIETARY MANAGE Propensity to adverse reactions Unknown [facility] Other (20 sources) Substance with penicillin structure and antibacterial mechanism of action (substance) Drug allergy 04-30-20 06 PENICILLINS [facility] Other (20 sources) Sulf-10 Drug allergy 12-01-19 06 SULFA 10 [facility] Other (1 source) Vancomycin Drug Allergy rash [facility] Other (1 source) Cephalosporins (Antibiotic) Drug allergy (disorder) 03-16-20 24 [facility] (1 source) Povidone-Iodine Drug Allergy 03-16-20 24 [facility] (1 source) Vancomycin Drug Allergy 03-16-20 24 [facility] (15 sources) Cephalosporins (Antibiotic) Drug Allergy 10-24-19 15 [facility] (15 sources) HMG-CoA reductase inhibitor Drug Allergy 01-25-20 24 [facility] (15 sources) Penicillins Drug Allergy 11-16-19 15 Hives [facility] (5 sources) Povidone-Iodine Drug Allergy 01-25-20 24 [facility] (6 sources) Pregabalin Allergy to substance 05-15-20 Unknown [facility] Medications Current Medications Medication Drug Class(es) Dates Sig (Normalized) Sig (Original) acetaminophen 500 mg oral tablet (20 sources) Start: 07-26-2022 take 1 tablet by mouth four times daily as needed for pain Acetaminophen (Tylenol Ex Str Rapid Release) 500 mg Tablet Active 500 MG PO Four times daily as needed for Pain July 26, 2022 1:00am Complies with drug therapy acetaminophen (T ylenol) 500 MG tablet Take by mouth every 6 (six) hours if needed Active [id number] actuat albuterol 0.09 mg/actuat metered dose [...] (20 sources) Dihydropyridine Calcium Channel Frandy Start: End: take 1 tablet by mouth once daily Amlodipine 5 mg tablet Active 0 .ROUTE .COMPLEX September 21, 2024 3:52pm TAKE 1 TABLET BY MOUTH EVERY DAY Complies with drug therapy Start: 10-12-2023 End: 07-05-2024 take 1 tablet by mouth once daily Amlodipine 5 mg tablet Discontinued 5 MG PO Daily October 12, 2023 11:51am July 05, 2024 7:25pm Start: 10-07-2023 End: 10-12-2023 take 1 tablet by mouth once daily Amlodipine 5 mg tablet Discontinued 0 .ROUTE .COMPLEX October 07, 2023 [...] tablet (20 sources) beta-Adrenergic Frandy Start: 01-19-2024 End: 12-16-2024 take 1 tablet by mouth once daily Atenolol 25 mg tablet Active 0 .ROUTE .COMPLEX 90 December 16, 2024 8:12am TAKE 1 TABLET BY MOUTH EVERY DAY Complies with drug therapy Start: 11-15-2014 End: 01-19-2024 take 1 tablet by mouth once daily Atenolol (Tenormin) 25 mg Tablet Discontinued 25 MG PO Daily November 28, 2019 12:00am January 19, 2024 8:31am Comment on above: Take 1 tablet by george th once daily. Blood-Glucose Meter (Onetouch Ultra2 Meter) misc (6 sources) Start: 03-27-2024 Blood-Glucose Meter (Onetouch Ultra2 Meter) misc Active 0 .Route March 27, 2024 12:00am to test blood sugar daily Start: 03-26-2024 End: 10-04-2024 Blood-Glucose Meter (Onetouc h Ultra2 Meter) misc Discontinued 0 .ROUTE .MEDSUPPLY March 26, 2024 11:56am October 04, 2024 11:34am Use to test home BS qd Start: 03-26-2024 Blood-Glucose Meter (Onetouch Ultra2 Meter) misc Active 0 .ROUTE .MEDSUPPLY March 26, 2024 11:56am Use to test home BS qd Start: 03-26-2024 End: 03-26-2024 Blood-Glucose Meter (Onetouc h Ultra2 Meter) misc Discontinued 0 .ROUTE .MEDSUPPLY March 26, 2024 12:00am March 26, 2024 11:57am Use to test home BS qd Calcium + D 315-200 MG-UNIT (20 sources) take 1 tablet by george th twice daily at mealtime Calcium + D 315-200 MG-UNIT 1 tablet with meals Orally Twice a day Active calcium carbonate 1500 mg oral tablet (20 sources) Start: 07-26-2022 Calcium Carbonate (Calcium 600) 600 mg calcium (1,500 mg) Tablet Active 1200 MG PO Daily July 26, 2022 1:00am Complies with drug therapy calcium carbonat e (Super Calcium) 1500 (600 Ca) MG tablet Take 1,500 mg by mouth every 12 (twelve) hours Active cholecalciferol 0.01 mg chewable tablet (20 sources) Vitamin D Start: 07-26-2022 take 1 tablet by mouth once daily Cholecalciferol (Vitamin D3) (Vitamin D3) 10 mcg (400 unit) Tablet,Chewable Active 20 MCG PO Daily July 26, 2022 1:00am Complies with drug therapy cholecalciferol (Vitamin D-3) 250 MCG (31799 UT) capsule as directed Orally Active dicyclomine [...] Active Start: 12-28-2017 take 1 capsule by [facility] every twelve hours Doxycycline Hyclate 100 MG 1 capsule Orally every 12 hrs for 10 days Dec, Not-Taking famotidine 20 mg oral tablet (20 sources) Histamine-2 Receptor Antagonist Start: 03-26-2024 take 1 tablet by mouth once daily Famotidine (Pepcid) 20 mg tablet Active 20 MG PO Daily March 26, 2024 12:00am Complies with drug therapy Start: 07-26-2022 End: 08-29-2023 take 1 tablet by mouth once daily before mealtime Famotidine (Pepcid Ac) 20 mg Tablet Discontinued 20 MG PO Daily July 26, 2022 1:00am August 29, 2023 1:48pm famotidine (Pepc id) 40 MG tablet 1 (one) time each day at the same time Active take 1 tablet by [facility] twice daily famotidine (PEPCID) 20 mg tablet Take 20 mg by mouth twice daily. 0 Active Comment on above: Take 20 mg by mouth twice daily. latanoprost 0.05 mg/ml ophthalmic solution (4 sources) Prostaglandin Analog Start: 09-25-19 End: 09-25-19 26 Latanoprost 0.005 % drops Active DROPS OPHTHALMIC October 04, 2024 12:00am Complies with drug therapy levothyroxine sodium 0.112 mg oral tablet (20 sources) l-Thyroxine Start: 12-17-19 take 1 tablet by mouth once daily in the morning Levothyroxine 112 mcg tablet Active 0 .ROUTE .COMPLEX 90 December 16, 2024 8:12am TAKE 1 TABLET BY MOUTH EVERY DAY IN THE MORNING ON AN EMPTY STOMACH FOR 30 DAYS Complies with drug therapy Start: 10-04-2024 End: 12-16-2024 take 1 tablet by mouth once daily Levothyroxine 112 mcg tablet Discontinued 112 MCG PO Daily October 04, 2024 12:00am December 16, 2024 8:12am Start: 03-26-2024 End: 10-04-2024 take 1 capsule by mouth once daily Levothyroxine 125 mcg capsule Discontinued 125 MCG PO Daily March 26, 2024 12:00am October 04, 2024 11:02am Start: 01-03-2024 End: 03-26-2024 take 1 tablet by mouth once daily in the morning Levothyroxine 112 mcg tablet Discontinued 0 .ROUTE .COMPLEX 90 January 03, 2024 8:38am March 26, 2024 11:04am TAKE 1 TABLET BY MOUTH EVERY DAY IN THE MORNING ON AN EMPTY STOMACH FOR 30 DAYS Start: 12-28-2022 take 1 tablet by george th once [...] EVERYDAY ON AN EMPTY STOMACH 0.125 mcg. lubiprostone 0.008 mg oral capsule (2 sources) Chloride Channel Activator Start: End: take 1 capsule by mouth twice daily Lubiprostone (Amitiza) 8 mcg capsule Active 8 MCG PO Twice daily 29 04December 04, 2024 2:16pm Complies with drug therapy Multiple Vitamin (Multi Vitamin Daily) tablet (15 sources) Multiple Vitamin (Multi Vitamin Daily) tablet 1 (one) time each day at the same time Active Multivitamin preparation (20 sources) Multivitamin Act kerri Multivitamin Not -Taking Multivitamin tablet (2 sources) Start: 03-26-2024 take 1 tablet by mouth once daily Multivitamin tablet Active 1 TAB PO Daily March 26, 2024 12:00am Complies with drug therapy Start: 03-26-2024 take 1 tablet by george once daily Multivitamin tablet Active 1 TAB PO Daily March 26, 2024 12:00am [place] 3 1200 MG (20 sources) take 1 capsule by mo [facility] once daily [employer] [place] 3 1200 MG 1 capsule Orally Once a day Active take 1 capsule by mouth once taniya ly [employer] [place] 3 1200 MG 1 capsule Orally Once a day Not-Taking [employer] [place]-3 Fatty Acids (OMEGA 3 500 PO) (10 sources) [place]-3 Fatty Ac ids (OMEGA 3 500 PO) Take by mouth Active pantoprazole 40 mg delayed release oral tablet (20 sources) Proton Pump Inhibitor Start: 06-22-2024 End: 12-25-2024 Pantoprazole 40 mg tablet,delayed release (DR/EC) Active 40 MG PO Daily December 25, 2024 4:12pm Take 1 tablet orally 30 minutes before morning meal. Complies with drug therapy Start: 03-25-2023 Pantoprazole S odium 40 MG 1 tablet 30 minutes prior to morning meal Orally Once a day for 30 days Mar, Active Start: 10-28-2022 End: 07-03-2024 take 1 tablet by mouth twice daily Pantoprazole 40 mg tablet,delayed release (DR/EC) Discontinued 40 MG PO Twice daily 180 90 October 28, 2022 1:33pm July 03, 2024 12:15pm Start: 07-26-2022 End: 10-28-2022 take 1 tablet by mouth once daily Pantoprazole 40 mg tablet,delayed release (DR/EC) Discontinued 40 MG PO Daily October 28, 2022 12:00am October 28, 2022 1:33pm red yeast rice 600 mg oral tablet (20 sources) Start: 07-26-2022 take 1 tablet by mouth once daily Red Yeast Rice 600 mg Tablet Active 2400 MG PO Daily July 26, 2022 1:00am give with meal/snack Complies with drug therapy Start: 07-26-2022 take 2400 mg by mout h once daily Red Yeast Rice Active 2400 MG PO Daily July 26, 2022 1:00am give with meal/snack Red Yeast Rice 6 00 MG capsule as directed Orally Active Red Yeast Rice (20 sources) Red Yeast Rice A ctive Selenimin (20 sources) Selenimin Active Selenimin Not-[place] traMADol hydrochloride 50 mg oral tablet (20 sources) Opioid Agonist Start: 12-15-2023 End: 10-12-2024 take 1 tablet by mouth every eight hours as needed for pain Tramadol 50 mg tablet Active 50 MG PO Every 8 hours as needed for pain 70 30 October 12, 2024 1:28pm Complies with drug therapy Start: 10-12-2022 End: 12-15-2023 take 1 tablet by mouth twice daily as needed for pain Tramadol 50 mg tablet Discontinued 50 MG PO Twice daily as needed for Pain October 28, 2022 12:00am September 16, 2023 7:48am Start: 11-15-2014 End: 05-18-2022 take 1 tablet by mouth every four hours as needed traMADol (ULTRAM) 50 mg tablet Take 1 tablet by mouth every 4 hours as needed for Pain. 0 11/15/2014 05/18/2022 Discontinued (Course of therapy completed) Comment on above: Take 1 tablet by george th every 4 hours as needed for Pain. Tylenol Extra Strength 500 MG (20 sources) take 1 tablet by mouth every six hours as needed Tylenol Extra Strength 500 MG 1 tablet as needed Orally every 6 hrs Active take 1 tablet by george th every six hours as needed Tylenol Extra Strength 500 MG 1 tablet a s needed Orally every 6 hrs Not-Taking Vit C,E-Qu-Vbphx-Lutein-Zeax an (Preservision Areds-2) 250-90-40-1 mg Capsule (7 sources) Start: 07-26-2022 Vit C,L-Jo-Mwogt-Lutein-Zeax an (Preservision Areds-2) 250-90-40-1 mg Capsule Active 1 TAB PO Twice daily July 26, 2022 1:00am Complies with drug therapy Start: 07-26-2022 Vit C,E-Zn-[place] zy-Wsuecs-Dzknvp (Preservision Areds-2) 250-90-40-1 mg Capsule Active 1 TAB PO Twice daily July 26, 2022 1:00am Start: 07-26-2022 Vit C,E-Zn-[place] sc-Sjtpdr-Zauhwi (Preservision Areds-2) 250-90-40-1 mg Capsule Active 1 [...] acid 0.05 mg/ml injection (20 sources) Bisphosphonate Start: 11-02-2024 Zoledronic Oytj-Klemxpbb-Esovq (Reclast) 5 mg/100 mL piggyback Active EACH IV November 02, 2024 12:00am Complies with drug therapy zoledronic acid (Reclast) 5 MG/100ML solution Intravenous Active Reclast YEARLY A ctive Completed/Discontinued Medications Medication Drug Class(es) Dates Sig (Normalized) Sig (Original) acetaminophen 250 mg / aspirin 250 mg / caffeine 65 mg oral tablet (20 sources) Platelet Aggregation Inhibitor, Nonsteroidal Anti-inflammatory Drug, Central Nervous System Stimulant, Methylxanthine Start: 07-26-2022 End: 05-15-2024 take 1 tablet by mouth every four to six hours as needed for pain Aspirin-Acetamino phen-Caffeine (Excedrin Migraine) 250-250-65 mg Tablet Discontinued 1 TAB PO EVERY 4-6 HOURS as needed for Pain July 26, 2022 1:00am May 15, 2024 4:42pm take 2 tablets by mouth every si x hours Excedrin Migraine 250-250-65 MG 2 tablets as needed Orally every 6 hrs Active aspirin/acetaminophen/caffei ne (EXCEDRIN EXTRA STRENGTH ORAL) (5 sources) aspirin/acetamin ophen/caffeine (EXCEDRIN EXTRA STRENGTH ORAL) Take by mouth. 0 Active Comment on above: Take by mouth. CA/D3/MAG OX/ZINC/PRODUCER ARBORIST MANAGER/MEREDITH/B OR (CALCIUM 600+D3 PLUS ORAL) (6 sources) take 1200 mg by mouth once daily CA/D3/MAG OX/ZINC/PRODUCER ARBORIST MANAGER/MEREDITH/BOR (CALCIUM 600+D3 PLUS ORAL) Take 1,200 mg by mouth once daily. 0 Active Comment on above: Take 1,200 mg by george th once daily. celecoxib 100 mg oral capsul e (9 sources) Nonsteroidal Anti-inflamma tory Drug S t a r t : 0 5 - 2 0 - 2 0 2 0 E n d : 0 1 - 1 6 - 2 0 2 3 take 1 capsule by mouth once daily [...] Anti-inflammatory Drug Start: 2 End: 3 take 1 tablet by mouth twice daily Diclofenac Sodium 75 mg tablet,delayed release (DR/EC) Discontinued 75 MG PO Twice daily July [...] 0 Active Comment on above: Use vaginally. glucosamine sulfate 750 mg oral tablet (20 sources) Start: 01-24-2023 End: 08-29-2023 take 1 tablet by mouth once daily Glucosamine Sulfate (Dayan) 750 mg Tablet Discontinued 750 MG PO Daily January 24, 2023 12:00am August 29, 2023 1:48pm administer with a meal Glucosamine 500 MG capsule every 8 (eight) hours Active LORazepam 0.5 mg oral tablet (16 sources) Benzodiazepine Start: 10-12-2023 End: 03-26-2024 take 1 tablet by mouth once daily Lorazepam 0.5 mg tablet Discontinued 0.5 MG PO Daily 07 11October 12, 2023 12:00am March 26, 2024 11:04am Take 1 hour prior to testing Start: 05-31-2023 LORazepam 0.5 MG 1 tablet Orally one hour before procedure for 1 days May, Active losartan potassium 50 mg oral tablet (20 sources) Angiotensin 2 Receptor Frandy Start: 08-29-2023 End: 09-01-2023 take 1 tablet by mouth once daily Losartan 50 mg tablet Discontinued 50 MG PO Daily August 29, [...] succinate 25 mg extended release oral tablet (9 sources) beta-Adrenergic Frandy Start: 11-28-2019 End: 05-29-2020 take 1 tablet by mouth once daily Metoprolol Succinate 25 mg Tablet Extended Release 24 Hr Discontinued 25 MG PO Daily November 28, 2019 12:00am May 29, 2020 12:10pm Start: 11-08-2017 End: 05-18-2022 metoprolol succinate ER (TOP ROL XL) 25 mg 24 hr tablet predniSONE 10 mg oral tablet (19 sources) Start: 03-01-2024 End: 06-29-2024 take 1 tablet by mouth once daily Prednisone 10 mg tablet Discontinued 10 MG PO Daily March 26, 2024 12:00am March 30, 2024 2:17pm Start: 03-04-2023 predniSONE 20 MG 1 tablet Orally bid w /food x 3 days then qd w/ food x 3 days for 6 days Feb, Active pyridostigmine bromide 60 mg oral tablet (12 sources) Start: 03-26-2024 End: 03-30-2024 take 1 tablet by mouth three times daily Pyridostigmine Magna 60 mg tablet Discontinued 60 MG PO Three times daily March 26, 2024 12:00am March 30, 2024 2:16pm Start: 01-31-2024 End: 01-30-2025 take 0.5 tablet [...] 45 tablet 3 01/31/2024 03/29/2024 Discontinued (Ineffective) raNITIdine 150 mg oral tablet (18 sources) [...] Active Comment on above: Take by mouth. triamcinolone acetonide 1 mg/ml topical cream (20 sources) Corticosteroid Start: 09-16-2023 End: 03-26-2024 Triamcinolone Acetonide 0.1 % cream Discontinued 0 .ROUTE .COMPLEX 45 September 16, 2023 7:48am March 26, 2024 11:05am APPLY 1 APPLICATION EXTERNALLY TWICE A WEEK FOR 7 DAYS Start: 09-15-2023 End: 09-16-2023 Triamcinolone Acetonide 0.1 % cream Discontinued 1 APPLIC TOPICAL Twice daily September 15, [...] a Week for 7 days Feb, Active vit A/vit C/vit E/zinc/coppe r (PRESERVISION AREDS [...] ectasia] 08-31-2023 Chronic Blindness and vision defects (3 sources) Diplopia; Translations: [Diplopia] 10-10-2023 Episodic Cataract (2 sources) After-cataract of bilateral eyes; 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 EHR Cmte Deficiency and other anemia (2 sources) Iron deficiency anemia, unspecified; Translations: [Iron deficiency anemia] Episodic Deficiency and other anemia (6 sources) Anemia, unspecified; Translations: [Anemia, unspecified] Onset: 02-13-2022 Episodic Diseases of white blood cells (20 sources) Leukocytosis; Translations: [Elevated white blood cell count, unspecified] Onset: 02-09-2022 Chronic Disorders of lipid metabolism (20 sources) Pure hypercholesterolemia; Translations: [Familial hypercholesterolemia] Onset: 04-18-2015 Chronic Esophageal disorders (20 sources) Gastro-esophageal reflux disease with esophagitis; Translations: [...] conditions (1 source) Dysuria; Translations: [Dysuria] Episodic Glaucoma (6 sources) Primary open-angle glaucoma, left eye, moderate stage; Translations: [Primary open angle glaucoma] Onset: 09-24-2024 09-24-2024 Chronic Malaise and fatigue (20 sources) Fatigue; Translations: [...] pathological fracture] Chronic Other aftercare (2 sources) 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 (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; Translations: [HALFWAY CURRNT USE OPIATE ANALGES] Onset: 10-26-2022 Episodic [...] Episodic Other diseases of veins and lymphatics (6 sources) Venous insufficiency (chronic) (peripheral); Translations: [Venous [...] (syndrome of inappropriate ADH production)] Chronic Other endocrine disorders (1 source) Hypoglycemia; Translations: [Hypoglycemia, unspecified] 03-26-2024 Chronic Other eye disorders (4 sources) Partial palsy of left oculomotor nerve; Translations: [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] nerve palsy, left eye] 10-05-2023 Episodic Other eye disorders (10 sources) Abducens nerve palsy; 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 [abducent] nerve palsy, unspecified eye] 10-10-2023 Episodic Other eye disorders (5 sources) Ptosis of eyelid; Translations: [Unspecified ptosis of unspecified eyelid] Onset: 09-24-2024 10-10-2023 Episodic Other eye disorders (2 sources) Sixth [abducent] nerve palsy, unspecified eye; 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 or abducens nerve palsy] 01-02-2024 Episodic Other eye disorders (2 sources) 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] nerve palsy, left eye; Translations: [Third or oculomotor nerve palsy, partial] 01-02-2024 Episodic Other eye disorders (6 sources) Ptosis of left eyelid; Translations: [Unspecified ptosis of left eyelid] 03-01-2024 Episodic Other gastrointestinal disorders (20 sources) Irritable [...] sources) Abnormal gait; Translations: [Unsteadiness on feet] 07-11-2024 Episodic Comment on above: Carotid US: < 50% B/ L - 06/2024 Other nervous system disorders (1 source) Unsteadiness on feet Episodic Other nervous system disorders (1 source) Unspecified abnormalities of gait and mobility; Translations: [UNS ABNORMALITIES GAIT AND MOBILITY] Onset: 09-28-2022 Episodic Other nervous system disorders (15 sources) Paresthesia; Translations: [Paresthesia of skin] 08-29-2023 Episodic Other nervous system disorders (2 sources) Paresthesia of skin Episodic Other non-traumatic joint disorders (4 sources) Pain in right knee; Translations: [Right knee pain] 01-02-2024 Episodic Other non-traumatic joint disorders (3 sources) Hip pain; Translations: [Pain in right hip] [...] codes; unclassified (2 sources) Other amnesia Episodic Residual codes; unclassified (2 sources) Mammogram declined; Translations: [Procedure and treatment not carried out because of patient's decision for unspecified reasons] 01-10-2025 Episodic Retinal detachments; defects; vascular occlusion; and retinopathy (3 sources) Nonexudative age-related macular degeneration; Translations: [Nonexudative age-related macular degeneration, bilateral, advanced atrophic with subfoveal involvement] Onset: 09-24-2024 09-24-2024 Chronic Skin and subcutaneous tissue infections (1 source) Cellulitis of left upper limb Episodic Spondylosis; intervertebral disc disorders; other back problems (20 sources) Lumbar spondylosis; Translations: [Spondylosis without myelopathy or radiculopathy, lumbar region] Onset: 01-06-2022 Chronic Spondylosis; intervertebral disc disorders; other back problems (10 sources) Low back pain; Translations: [Low back pain, unspecified] Episodic Thyroid disorders (20 sources) Rhett thyroiditis; 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-2022 Chronic Transient cerebral ischemia (20 sources) Vertebrobasilar artery syndrome; 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 Unclassified (20 sources) Left-sided low back pain without sciatica, unspecified chronicity; Translations: [Left-sided low back pain without sciatica, unspecified chronicity] Unclassified (20 sources) 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; 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] Unclassified (3 sources) LOW BACK PAIN, [...] exposure to COVID-19] Unclassified (1 source) 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; 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] Viral infection (4 sources) COVID-19; Translations: [...] to blood loss (chronic)] Resolved: 05-10-2022 Chronic Esophageal disorders (20 sources) Esophageal disorders; Translations: [Gastroesophageal reflux disease 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 hemorrhage] Immunizations and screening for infectious disease (2 sources) Encounter for immunization; Translations: [Vaccination given] Onset: 04-27-2016 Episodic Nausea and vomiting (7 sources) Nausea; Translations: [Nausea] Onset: 11-03-2015 Episodic Nonspecific chest pain (2 sources) Chest pain, unspecified; Translations: [Chest pain] Onset: 01-29-2022 Resolved: 05-22-2020 Episodic Other aftercare (1 source) Other extermination supervisor (current) drug therapy; Translations: [OTH HALFWAY CURRENT DRUG THERAPY] Onset: 01-29-2022 Episodic Other eye disorders (2 sources) Dry eyes; Translations: [Dry eye syndrome of bilateral lacrimal glands] Onset: 09-24-2024 09-24-2024 Episodic Other inflammatory condition of skin (1 [...] Test Name Value Interpretation Reference Range Facility Optical coherence tomography study reporton 01-01-2025 [facility] Radiology Study observation (narrative) [facility] Perimetry studyon 01-01-2025 [facility] Radiology Study observation (narrative) [facility] Estimated glomerular filtrat ion rate (GFR) non- Americanon 11-01-2024 GFR/1.73 sq M.predicted among non-blacks MDRD (S/P/Bld) [Vol rate/Area] 54 mL/min/{1.73_m2} Low >=60 mL/min/1.73m 2 [facility] - Chemistry and C hemistry - challengeon 11-01-2024 Calcium [Mass/Vol] 9.0 mg/dL 8.5-10.1 [facility] Chloride [Moles/Vol] 98 mmol/L 98-107 [facility] CO2 [Moles/Vol] 30.6 mmol/L 21.0-32.0 [facility] Creatinine [Mass/Vol] 0.97 mg/dL 0.55-1.02 [facility] GFR/1.73 sq M.predicted MDRD (S/P/Bld) [Vol rate/Area] mL/min/{1.73_m2} >=60 mL/min/1.73m 2 [facility] Glucose [Mass/Vol] 94 mg/dL 74-106 [facility] Potassium [Moles/Vol] 4.6 mmol/L 3.5-5.1 [facility] Sodium [Moles/Vol] 134 mmol/L Low 136-145 [facility] Urea nitrogen [Mass/Vol] 14.0 mg/dL 7.0-18.0 [facility] Urea nitrogen/Creatinine [Mass ratio] 14.4 mg/mg [facility] No Panel Informationon 11-01 25-Hydroxy Vitamin D Total 35.6 ng/mL [facility] Comment on above: <20 ng/mL Vit D defi cient20-<30 ng/mL Vit D akxlremynxpm48-184 ng/mL Vit D sufficient>100 ng/mL Potential Toxicity Serum or plasma anion gap de terminationon 11-01-2024 Anion gap [Moles/Vol] 10.0 mmol/L [facility] CT chest w conon 03-16-2024 CT chest w con [facility] [place] [address] CT Scan Report Signed Patient: Tangela Moss MR#: [id number] [id number] : 1940 Acct:[id number] Age/Sex: 84 / F ADM Date: 03/16/24 Loc: CT Room: Type: [facility] Attending Dr: Lorelei Hurtado DO Copies to: [...] Viveros Jr., D.O.03/16/2024 2:09 PM Dictation Location: [place] [address] Transcribed By: [facility] 03/16/24 140 Dictated By: Bert Viveros Jr, DO 03/16/24 140 Signed By: 03/16/24 140 Normal [facility] Creatinineon 03-16-2024 GFR/1.73 sq M.predicted MDRD (S/P/Bld) [Vol rate/Area] mL/min/{1.73_m2} Normal [facility] Comment on above: Result Comment: PERF ORMED BY: [place] [address] PATHOLOGIST COARSE WIRE DRAWER SPEEDY GRAY M.D. Performed By: #### C REAT #### [facility] [address] [place] [address] Creatinine [Mass/volume] in Serum or PlasmaOrdered By: Lorelei Hurtado on 03-16-2024 Creatinine [Mass/Vol] 0.83 mg/dL Normal 0.60-1.20 [facility] Comment on above: Performed By: #### C REAT #### [address] No Panel InformationOrdered By: Lorelei Hurtado on 03-16-2024 Estimated GFR (CKD-EPI) > 60.0 mL/Min [facility] Creatinine Clearance (Chem N/A [facility] NM gastric emptying studyon 07-25-2023 NM gastric emptying study [facility] Main [place] [address] [place] [address] Nuclear Medicine Report Signed Patient: Tangela Moss MR#: [id number] [id number] : 1940 Acct:[id number] Age/Sex: 83 / F ADM Date: 01/15/24 Loc: [place] Room: Type: [facility] Attending Dr: Jeyson Diaz MD Copies to: [...] Matt Feldman M.D.07/25/2023 9:40 AM Dictation Location: [place] [address] Transcribed By: [facility] 07/25/23 0940 Dictated By: Matt Feldman DO 07/25/23 0934 Signed By: 07/25/[address] [facility] Physician [facility] MG MAMM SCREEN 3D ROXANA CADon 10-20-2022 MG MAMM SCREEN 3D ROXANA CAD Patient: TANGELA MOSS Exam Date: 10/20/2022 : 1940 Gender:F Ordering : DR KVNG WADSWORTH D.O. Admission #: [id number] Family : Order #: [id number] CLICK HERE TO VIEW EXAM RADIOLOGY REPORT [...] melonoma cancer at age 64. LOCATION: [facility] BREAST COMPOSITION: Scattered areas fibroglandular density. [...] Baez M.D. on 10/20/2022 at 13:19 Normal [facility] CBC W Auto Differential pane l (Bld)on 07-27-2022 Basophils (Bld) [#/Vol] 0.08 10*3/uL Normal <0.11 [facility] Comment on above: Order Comment: Speci men Type: BLOOD SPECIMEN Ordering Facility: [facility] Address: [address] [address] Performed By: #### 1 4196-0, 16636-7 #### [facility] CLIA [id number] [address] [place] [address] Basophils/100 WBC (Bld) 0.9 % Normal [facility] Comment on above: Order Comment: Speci men Type: BLOOD SPECIMEN Ordering Facility: [facility] Address: [address] [address] Performed By: #### 1 4196-0, 43803-5 #### [facility] CLIA [id number] [address] [place] [address] Differential cell count method Nom (Bld) Auto Normal [facility] Comment on above: Order Comment: Speci men Type: BLOOD SPECIMEN Ordering Facility: [facility] Address: [address] [address] Performed By: #### 1 4196-0, 96293-8 #### [facility] CLIA [id number] [address] [place] [address] Eosinophils (Bld) [#/Vol] 0.52 10*3/uL High <0.46 [facility] Comment on above: Order Comment: Speci men Type: BLOOD SPECIMEN Ordering Facility: [facility] Address: [address] [address] Performed By: #### 1 4196-0, 17699-1 #### [facility] CLIA [id number] [address] [place] [address]653 Eosinophils/100 WBC (Bld) 5.8 % Normal [facility] Comment on above: Order Comment: Speci men Type: BLOOD SPECIMEN Ordering Facility: [facility] Address: [address] [place] [address] Performed By: #### 1 4196-0, 79577-5 #### [facility] CLIA [id number] [address] [place] [address]96 Erythrocyte distribution width (RBC) [Ratio] 18.0 % High 11.5-15.0 [facility] Comment on above: Order Comment: Speci men Type: BLOOD SPECIMEN Ordering Facility: [facility] Address: [address] [place] [address] Performed By: #### 1 4196-0, 92684-2 #### [facility] CLIA [id number] [address] [place] [address]14 Hematocrit (Bld) [Volume fraction] 39.6 % Normal 36.0-46.0 [facility] Comment on above: Order Comment: Speci men Type: BLOOD SPECIMEN Ordering Facility: [facility] Address: [address] [place] [address] Performed By: #### 1 4196-0, 88386-6 #### [facility] CLIA [id number] [address] [place] [address]881 Hemoglobin (Bld) [Mass/Vol] 13.0 g/dL Normal 11.5-15.5 [facility] Comment on above: Order Comment: Speci men Type: BLOOD SPECIMEN Ordering Facility: [facility] Address: [address] [place] [address] Performed By: #### 1 4196-0, 44215-6 #### [facility] CLIA [id number] [address] [place] [address]953 Immature granulocytes (Bld) [#/Vol] 0.04 10*3/uL Normal <0.10 [facility] Comment on above: Order Comment: Speci men Type: BLOOD SPECIMEN Ordering Facility: [facility] Address: [address] [address] Performed By: #### 1 4196-0, 04998-4 #### [facility] CLIA [id number] [address] [place] [address] 86961 Immature granulocytes/100 WBC (Bld) 0.4 % Normal [facility] Comment on above: Order Comment: Speci men Type: BLOOD SPECIMEN Ordering Facility: [facility] Address: [address] [address] Performed By: #### 1 4196-0, 80449-0 #### [facility] CLIA [id number] [address] [place] [address] 98020 Lymphocytes (Bld) [#/Vol] 3.25 10*3/uL Normal 1.00-4.00 [facility] Comment on above: Order Comment: Speci men Type: BLOOD SPECIMEN Ordering Facility: [facility] Address: [address] [address] Performed By: #### 1 4196-0, 94405-7 #### [facility] CLIA [id number] [address] [place] [address] 95495 Lymphocytes/100 WBC (Bld) 36.3 % Normal [facility] Comment on above: Order Comment: Speci men Type: BLOOD SPECIMEN Ordering Facility: [facility] Address: [address] [address] Performed By: #### 1 4196-0, 72131-9 #### [facility] CLIA [id number] [address] [place] [address] 07456 MCH (RBC) [Entitic mass] 28.3 pg Normal 26.0-34.0 [facility] Comment on above: Order Comment: Speci men Type: BLOOD SPECIMEN Ordering Facility: [facility] Address: [address] [address] Performed By: #### 1 4196-0, #### [facility] CLIA [id number] [address] [place] [address] 07576 MCHC (RBC) [Mass/Vol] 32.8 g/dL Normal 30.5-36.0 [facility] Comment on above: Order Comment: Speci men Type: BLOOD SPECIMEN Ordering Facility: [facility] Address: [address] [place] [address] Performed By: #### 1 6-0, #### [facility] CLIA [id number] [address] [place] [address] 92070 MCV (RBC) [Entitic vol] 86.1 fL Normal 80.0-100.0 [facility] Comment on above: Order Comment: Speci men Type: BLOOD SPECIMEN Ordering Facility: [facility] Address: [address] [place] [address] Performed By: #### 1 41960, #### [facility] CLIA [id number] [address] [place] [address] 72119 Monocytes (Bld) [#/Vol] 1.25 10*3/uL High <0.87 [facility] Comment on above: Order Comment: Speci men Type: BLOOD SPECIMEN Ordering Facility: [facility] Address: [address] [place] [address] Performed By: #### 1 4196-0, #### [facility] CLIA [id number] [address] [place] [address] 25987 Monocytes/100 WBC (Bld) 14.0 % Normal [facility] Comment on above: Order Comment: Speci men Type: BLOOD SPECIMEN Ordering Facility: [facility] Address: [address] [place] [address] Performed By: #### 1 4196-0, #### [facility] CLIA [id number] [address] [place] [address] 01520 Neutrophils (Bld) [#/Vol] 3.81 10*3/uL Normal 1.45-7.50 [facility] Comment on above: Order Comment: Speci men Type: BLOOD SPECIMEN Ordering Facility: [facility] Address: [address] [address] Performed By: #### 1 4196-0, 48088-2 #### [facility] CLIA [id number] [address] [place] [address] 38967 Neutrophils/100 WBC (Bld) 42.6 % Normal [facility] Comment on above: Order Comment: Speci men Type: BLOOD SPECIMEN Ordering Facility: [facility] Address: [address] [address] Performed By: #### 1 4196-0, 43780-8 #### [facility] CLIA [id number] [address] [place] [address] 62180 Nucleated RBC (Bld) [#/Vol] 10*3/uL Normal <0.01 [facility] Comment on above: Order Comment: Speci men Type: BLOOD SPECIMEN Ordering Facility: [facility] Address: [address] [address] Performed By: #### 1 4196-0, 71687-2 #### [facility] CLIA [id number] [address] [place] [address] 31577 Nucleated RBC/100 WBC (Bld) [Ratio] 0.0 /100 WBC Normal [facility] Comment on above: Order Comment: Speci men Type: BLOOD SPECIMEN Ordering Facility: [facility] Address: [address] [address] Performed By: #### 1 4196-0, 40178-0 #### [facility] CLIA [id number] [address] [place] [address] 53258 Platelet mean volume (Bld) [Entitic vol] 9.5 fL Normal 9.0-12.7 [facility] Comment on above: Order Comment: Speci men Type: BLOOD SPECIMEN Ordering Facility: [facility] Address: [address] [place] [address] Performed By: #### 1 4196-0, 80225-1 #### [facility] CLIA [id number] [address] [place] [address] 57785 Platelets (Bld) [#/Vol] 379 10*3/uL Normal 150-400 [facility] Comment on above: Order Comment: Speci men Type: BLOOD SPECIMEN Order[facility] [address] [place] [address] Performed By: #### 1 4196-0, 85730-7 #### [facility] CLIA [id number] [address] [place] [address] RBC (Bld) [#/Vol] 4.60 10*6/uL Normal 3.90-5.20 [facility] Comment on above: Order Comment: Speci men Type: BLOOD SPECIMEN Ordering Facility: [facility] Address: [address] [address] Performed By: #### 1 4196-0, 46835-1 #### [facility] CLIA [id number] [address] [place] [address]236 WBC (Bld) [#/Vol] 8.95 10*3/uL Normal 3.70-11.00 [facility] Comment on above: Order Comment: Speci men Type: BLOOD SPECIMEN Ordering [facility]: [facility] [place] [address] Performed By: #### 1 4196-0, 61989-3 #### [facility] CLIA [id number] [address] [place] [address] CNOVSPon 07-27-2022 OVS Visit (SP) Office (HEMASA) TANGELA MOSS ([id number]) 1940 F Date Time Provider Department 07/27/22 2:45 PM MAVIS SANTIAGO During your visit today, we recorded the following information about you: Temperature Pulse Respiration Blood pressure 98.1 degrees 64/minute 16/minute 125/72 Weight Height 66.5 kg 1.524 m Mavis Santiago MD 07/27/2022 2:56 PM Signed PATIENT NAME: Tangela Moss CLINIC NO.: [id number] ATTENDING PHYSICIAN: Mavis Santiago MD DATE OF [...] Range Status (more content not included)... Normal [facility] Ferritin SerPl-mCncon 2022 Ferritin [Mass/Vol] 104.0 ng/mL Normal 14.7-205.1 [facility] Comment on above: Order Comment: Dayana soliz Type: BLOOD SPECIMEN Ordering Facility: [facility] Address: [address] [place] [address] Performed By: #### 5 0190-8, 2275-10 #### [facility] CLIA [id number] [address] [place] [address] [facility] Iron and Iron binding capaci ty panelon 07-27-2022 Iron [Mass/Vol] 43 ug/dL Normal 41-186 [facility] Comment on above: Order Comment: Dayana soliz Type: BLOOD SPECIMEN Ordering Facility: [facility] Address: [address] [place] [address] Performed By: #### 5 0190-8, 2275-4 #### [facility] CLIA [id number] [address] [id number] [address] [place] Iron binding capacity [Mass/Vol] 265 ug/dL Normal 232-386 [facility] Comment on above: Order Comment: Speci men Type: BLOOD SPECIMEN Ordering Facility: [facility] Address: [address] [place] [address] Performed By: #### 5 0190-8, 2276-4 #### [facility] CLIA [id number] [address] [place] [address] [place] Iron/TIBC [Molar ratio] 16.2 % Normal 15.0-57.0 [facility] Comment on above: Order Comment: Speci men Type: BLOOD SPECIMEN Ordering Facility: [facility] Address: [address] [place] [address] Performed By: #### 5 0190-8, 6-4 #### [facility] CLIA [id number] [address] [place] [address] [facility] Retics #on 07-27-2022 Reticulocytes (Bld) [#/Vol] 0.52583 10*3/uL Normal 0.018-0.100 [facility] Comment on above: Order Comment: Speci men Type: BLOOD SPECIMEN Ordering Facility: [facility] Address: [address] [place] [address] Performed By: #### 1 4196-0, 57816-4 #### [facility] CLIA [id number] [address] [place] [address]116 Reticulocytes (Bld) [#/Vol]o n 07-27-2022 Reticulocytes/100 RBC (Bld) 0.9 % Normal 0.4-2.0 [facility] Comment on above: Order Comment: Speci men Type: BLOOD SPECIMEN Ordering Facility: [facility] Address: [address] [place] [address] Performed By: #### 1 4196-0, 92110-8 #### [facility] CLIA [id number] [address] [place] [address]137 COVID-19 SOFIAOrdered By: Im price Asaad on 07-22-2022 SARS-CoV+SARS-CoV-2 (COVID-19) Ag IA.rapid Ql (Resp) Negative Negative [facility] Comment on above: This is a duplicate Heidi SARS Antigen (DB) result to be used for statistical tracking purpose only. No Panel InformationOrdered By: Jeyson Diaz on 07-22-2022 SARS Antigen (LFIA) [facility] CNSWon 06-02-2022 CNSW Social Work (HEMASA) TANGELA MOSS ([id number]) 1940 F Date Time Provider Department 06/02/22 [...] - Hives POVIDONE-IODINE 06/21/2019 16 - Unknown PKOBWYY-DPX-YEW REDUCTASE INHIBIT*01/05/2018 16 - Unknown SULFA (SULFONAMIDE [...] 112 mcg tablet 0.125 mcg. - CA/D3/MAG OX/ZINC/PRODUCER ARBORIST MANAGER/MEREDITH/BOR (CALCIUM 600+D3 PLUS ORAL) Take 1,200 mg by mouth once daily. - atenolol (TENORMIN) 25 mg tablet Take 1 tablet by mouth once daily. Problem List As Of Date 06/02/2022 Noted Resolved Anemia [D64.9] 11/15/2014 Iron deficiency [E61.1] 11/15/2014 Encounter Status:Closed by MARCIA RAMIRES on 06/02/22 [facility] Shannan [facility]20[facility] TANGELA MOSS ([id number]) 1940 F Date Time Provider Department 05/25/22 [employer]CIAL [employer]IGATOR DAMON BREWER During your visit today, we recorded the following information about you: Mohit Lo [facility] 05/25/2022 3:35 PM Signed 1st report of treatment-non oncology regimen (Monoferric) Patient holds Medicare coverage. No FA available at this time. Allergies As of Date: 05/25/2022 Noted Allergy Reaction CEPHALOSPORINS 10/23/2014 16 - Unknown MACRODANTIN (NITROFURANTOIN MACRO*10/11/2018 2 - Rash 9 - Itching PENICILLINS 11/15/2014 4 - Hives POVIDONE-IODINE 06/21/2019 16 - Unknown SQOLQIC-BIX-GUK REDUCTASE INHIBIT*01/05/2018 16 - Unknown SULFA (SULFONAMIDE [...] 112 mcg tablet 0.125 mcg. - CA/D3/MAG OX/ZINC/PRODUCER ARBORIST MANAGER/MEREDITH/BOR (CALCIUM 600+D3 PLUS ORAL) Take 1,200 mg [...] Status:Closed by MOHIT SANTOS on 05/25/22 [facility] CNOVSPon 05-18-2022 CNOVSP Visit (SP) Office (HEMASA) TANGELA MOSS ([id number]) 1940 F Date Time Provider Department 05/18/22 4:00 PM MAVIS SANTIAGO During your visit today, we recorded the following information about you: Temperature Pulse Respiration Blood pressure 98.1 degrees 78/minute 16/minute 122/78 Weight 68 kg Mavis Santiago MD 05/18/2022 4:08 PM Signed PATIENT NAME: Tangela Moss CLINIC NO.: [id number] ATTENDING PHYSICIAN: Mavis Santiago MD DATE OF [...] Range Status (more content not included)... Normal [facility] IMMUNOFIXATION(ELISE),PROTEIN ELEC(PE),[facility] 05-06-2022 Albumin [Mass/Vol] 2.9 g/dL Normal 2.9-4.4 [facility] Comment on above: Performed By: #### I FEPEFL #### [facility] [address] [place] [address] Dr. Yayo Gergg Albumin/Globulin [Mass ratio] 1.2 {ratio} Normal 0.7-1.7 [facility] Comment on above: Performed By: #### I FEPEFL #### [facility] [address] [address] [address] Yayo Gregg Ecsvj-2-Srvpddke 0.3 g/dL Normal 0.0-0.4 [facility] Comment on above: Performed By: #### I FEPEFL #### [facility] [address] [place] [address] Dr. Yayo Gregg Bddvv-4-Dirkbmrg 0.7 g/dL Normal 0.4-1.0 [facility] Comment on above: Performed By: #### I FEPEFL #### [facility] [address] [place] [address] Dr. Yayo Gregg Beta Globulin 0.9 g/dL Normal 0.7-1.3 [facility] Comment on above: Performed By: #### I FEPEFL #### [facility] [address] [place] [address] Dr. Yayo Gregg Free [place] Lt Chains,S 39.9 mg/L Critically high 3.3-19.4 [facility] Comment on above: Performed By: #### I FEPEFL #### [facility] [address] [place] [address] Dr. aYyo Gregg Free Lambda Lt Chains,S 22.7 mg/L Normal 5.7-26.3 [facility] Comment on above: Performed By: #### I FEPEFL #### [facility] [address] [place] [address] Dr. Yayo Gregg Gamma Globulin 0.6 g/dL Normal 0.4-1.8 [facility] Comment on above: Performed By: #### I FEPEFL #### [facility] [address] [place] [address] Dr. Yayo Gregg Globulin (S) [Mass/Vol] 2.6 g/dL Normal 2.2-3.9 [facility] Comment on above: Performed By: #### I FEPEFL #### [facility] [address] [place] [address] Dr. Yayo Gregg Immunofixation Result, Serum Comment Normal [facility] Comment on above: Result Comment: No m onoclonality detected. Performed By: #### I FEPEFL #### [facility] [address] [place] [address] Dr. Yayo Gregg Immunoglobulin A, Qn, Serum 81 mg/dL Normal 64-422 [facility] Comment on above: Performed By: #### I FEPEFL #### [facility] [address] [place] [address] Dr. Yayo Gregg Immunoglobulin G, Qn, Serum 547 mg/dL Critically low 586-1602 [facility] Comment on above: Performed By: #### I FEPEFL #### [facility] [address] [place] [address] Dr. Yayo Gregg Immunoglobulin M, Qn, Serum 92 mg/dL Normal 26-217 [facility] Comment on above: Performed By: #### I FEPEFL #### [facility] [address] [place] [address] Dr. Yayo Gregg [place]/Lambda Ratio, S 1.76 Critically high 0.26-1.65 [facility] Comment on above: Performed By: #### I FEPEFL #### [facility] [address] [place] [address] Dr. Yayo Gregg M-Johan Not Observed Normal Not Observed [facility] Comment on above: Performed By: #### I FEPEFL #### [facility] [address] [place] [address] Dr. Yayo Gregg PDF . Normal [facility] Comment on above: Performed By: #### I FEPEFL #### [facility] [address] [place] [address] Dr. Yayo Gregg Please note: Comment Normal [facility] Comment on above: Result Comment: Prot ein electrophoresis scan will follow via computer, mail, or belt puncher delivery. Performed By: #### I FEPEFL #### [facility] [address] [place] [address] Dr. Yayo Gregg Protein [Mass/Vol] 5.5 g/dL Critically low 6.0-8.[address] [facility] Comment on above: Performed By: #### I FEPEFL #### [facility] [address] [place] [address] Dr. Yayo Gregg IMMUNOGLOBULINS IGA/IGM/IGG QUANTITATIVEon 05-05-2022 Immunoglobulin A, Qn, Serum 83 mg/dL Normal 64-422 [facility] Comment on above: Performed By: #### I MMUNGL #### [facility] [address] [place] [address] Dr. Yayo Gregg Immunoglobulin G, Qn, Serum 559 mg/dL Critically low 586-1602 [facility] Comment on above: Performed By: #### I MMUNGL #### [facility] [address] [place] [address] Dr. Yayo Gregg Immunoglobulin M, Qn, Serum 93 mg/dL Normal 26-217 [facility] Comment on above: Performed By: #### I MMUNGL #### [facility] [address] [place] [address] Dr. Yayo Gregg CBC AUTO DIFFon 05-04-2022 BASO # 0.1 103/ul Normal 0.0-0.1 [facility] Comment on above: Performed By: #### I MMUNGL #### [facility] [address] [place] [address] Dr. Yayo Gregg Basophils/100 WBC (Bld) 0.9 % Normal 0.2-2.0 [facility] Comment on above: Performed By: #### I MMUNGL #### [facility] [address] [place] [address] Dr. Yayo Gregg EO # 0.7 103/ul Normal 0.0-0.7 [facility] Comment on above: Performed By: #### I MMUNGL #### [facility] [address] [place] [address] Dr. Yayo Gregg Eosinophils/100 WBC (Bld) 6.7 % Normal 0.9-7.0 [facility] Comment on above: Performed By: #### I MMUNGL #### [facility] [address] [place] [address] Dr. Yayo Gregg Erythrocyte distribution width (RBC) [Ratio] 15.6 % Critically high 11.0-15.0 [facility] Comment on above: Performed By: #### I MMUNGL #### [facility] [address] [place] [address] Dr. Yayo Gregg Hematocrit (Bld) [Volume fraction] 31.3 % Critically low 36.0-48.0 [facility] Comment on above: Performed By: #### I MMUNGL #### [facility] [address] [address] [address] Yayo Gregg Hemoglobin (Bld) [Mass/Vol] 10.0 g/dL Critically low 12.0-16.0 [facility] Comment on above: Performed By: #### I MMUNGL #### [facility] [address] [place] [address] Dr. Yayo Gregg IG # 0.04 10e3/ul Critically high 0.00-0.03 [facility] Comment on above: Performed By: #### I MMUNGL #### [facility] [address] [place] [address] Dr. Yayo Gregg IG % 0.4 % Normal 0.0-0.5 [facility] Comment on above: Performed By: #### I MMUNGL #### [facility] [address] [place] [address] Dr. Yayo Gregg LYMPH # 2.9 103/ul Normal 1.2-3.8 [facility] Comment on above: Performed By: #### I MMUNGL #### [facility] [address] [place] [address] Dr. Yayo Gregg Lymphocytes/100 WBC (Bld) 29.6 % Normal 20.5-60.0 [facility] Comment on above: Performed By: #### I MMUNGL #### [facility] [address] [place] [address] Dr. Yayo Gregg MANUAL DIFF REQ NO Normal [facility] Comment on above: Performed By: #### I MMUNGL #### [facility] [address] [place] [address] Dr. Yayo Gregg MCH (RBC) [Entitic mass] 25.7 pg Critically low 26.7-34.0 [facility] Comment on above: Performed By: #### I MMUNGL #### [facility] [address] [place] [address] Dr. Yayo Gregg MCHC (RBC) [Mass/Vol] 31.9 g/dL Normal 29.9-35.2 [facility] Comment on above: Performed By: #### I MMUNGL #### [facility] [address] [address] [address] Yayo Gregg MCV (RBC) [Entitic vol] 80.5 fL Critically low 81.0-99.0 [facility] Comment on above: Performed By: #### I MMUNGL #### [facility] [address] [place] [address] Dr. Yayo Gregg MONO # 1.4 103/ul Critically high 0.3-0.8 [facility] Comment on above: Performed By: #### I MMUNGL #### [facility] [address] [place] [address] Dr. Yayo Gregg Monocytes/100 WBC (Bld) 14.5 % Critically high 1.7-12.0 [facility] Comment on above: Performed By: #### I MMUNGL #### [facility] [address] [place] [address] Dr. Yayo Gregg NEUT # 4.7 103/ul Normal 1.4-6.5 [facility] Comment on above: Performed By: #### I MMUNGL #### [facility] [address] [place] [address] Dr. Yayo Gregg Neutrophils/100 WBC (Bld) 47.9 % Normal 43.0-75.0 [facility] Comment on above: Performed By: #### I MMUNGL #### [facility] [address] [place] [address] Dr. Yayo Gregg Platelet mean volume (Bld) [Entitic vol] 9.5 fL Normal 9.5-13.5 [facility] Comment on above: Performed By: #### I MMUNGL #### [facility] [address] [place] [address] Dr. Yayo Gregg PLT 457 103/ul Critically high 150-450 [facility] Comment on above: Performed By: #### I MMUNGL #### [facility] [address] [place] [address] Dr. Yayo Gregg RBC 3.89 106/ul Critically low 4.20-5.40 [facility] Comment on above: Performed By: #### I MMUNGL #### [facility] [address] [address] [address] Yayo Gregg WBC 9.8 103/ul Normal 4.0-11.0 [facility] Comment on above: Performed By: #### I MMUNGL #### [facility] [address] [place] [address] Dr. Yayo Gregg FERRITINon 05-04-2022 Ferritin [Mass/Vol] 20.0 ng/mL Normal 8.0-252.0 [facility] Comment on above: Performed By: #### F ERR, FETIBC #### [facility] [address] [place] [address] Dr. Yayo Gregg IRON AND TIBCon 05-04-2022 % SATURATION 5.7 % Normal [facility] Comment on above: Performed By: #### F ERR, FETIBC #### [facility] [address] [place] [address] Dr. Yayo Gregg Iron [Mass/Vol] 18.0 ug/dL Critically low 50.0-170.0 [facility] Comment on above: Performed By: #### F ERR, FETIBC #### [facility] [address] [place] [address] Dr. Yayo Gregg TIBC DIRECT 318.0 ug/dL Normal 250.0-450.0 [facility] Comment on above: Performed By: #### F ERR, FETIBC #### [facility] [address] [place] [address] Dr. Yayo Gregg PROF CHEM 8 (BAS METB)on Anion gap [Moles/Vol] 11.7 mmol/L Normal [facility] Comment on above: Performed By: #### I MMUNGL #### [facility] [address] [place] [address] Dr. Yayo Gregg Calcium [Mass/Vol] 8.1 mg/dL Critically low 8.5-10.1 [facility] Comment on above: Performed By: #### I MMUNGL #### [facility] [address] [address] [address] Yayo Gregg Chloride [Moles/Vol] 100 mmol/L Normal 98-107 [facility] Comment on above: Performed By: #### I MMUNGL #### [facility] [address] [address] [address] Yayo Gregg CO2 [Moles/Vol] 25.7 mmol/L Normal 21.0-32.0 [facility] Comment on above: Performed By: #### I MMUNGL #### [facility] [address] [address] [address] Yayo Gregg Creatinine [Mass/Vol] 1.06 mg/dL Critically high 0.55-1.02 [facility] Comment on above: Performed By: #### I MMUNGL #### [facility] [address] [address] [address] Yayo Gregg EGFR-AF MAURITANIAN =60 Normal >=60 [facility] Comment on above: Performed By: #### I MMUNGL #### [facility] [address] [place] [address] Dr. Yayo Gregg EGFR-NON AF MAURITANIAN 49 mL/min/1.73m2 Critically low >=60 [facility] Comment on above: Performed By: #### I MMUNGL #### [facility] [address] [address] [address] Yayo Gregg Glucose [Mass/Vol] 121 mg/dL Critically high 74-106 T [facility] Comment on above: Performed By: #### I MMUNGL #### [facility] [address] [address] [address] Yayo Gregg Potassium [Moles/Vol] 4.4 mmol/L Normal 3.5-5.1 [facility] Comment on above: Performed By: #### I MMUNGL #### [facility] [address] [address] [address] Yayo Gregg Sodium [Moles/Vol] 133 mmol/L Critically low 136-[address] [facility] Comment on above: Performed By: #### I MMUNGL #### [facility] [address] [place] [address] Dr. Yayo Gregg Urea nitrogen [Mass/Vol] 16.0 mg/dL Normal 7.0-18.0 [facility] Comment on above: Performed By: #### I MMUNGL #### [facility] [address] [place] [address] Dr. Yayo Gregg Urea nitrogen/Creatinine [Mass ratio] 15.1 mg/mg Normal [facility] Comment on above: Performed By: #### I MMUNGL #### [facility] [address] [place] [address] Dr. Yayo Gregg T PROTEIN SERUMon 05-04-2022 Protein [Mass/Vol] 6.0 g/dL Critically low 6.4-8.2 [facility] Comment on above: Performed By: #### I MMUNGL #### [facility] [address] [place] [address] Dr. Yayo Gregg TSHon 05-04-2022 TSH 1.715 uIU/mL Normal 0.358-3.740 [facility] Comment on above: Performed By: #### I MMUNGL #### [facility] [address] [place] [address] Dr. Yayo Gregg CBC AUTO DIFFon 03-26-2022 BASO # 0.1 103/ul Normal 0.0-0.1 [facility] Comment on above: Performed By: #### C BC #### [facility] [address] [place] [address] Dr. Yayo Gregg Basophils/100 WBC (Bld) 1.0 % Normal 0.2-2.0 [facility] Comment on above: Performed By: #### C BC #### [facility] [address] [place] [address] Dr. Yayo Gregg EO # 0.8 103/ul Critically high 0.0-0.7 [facility] Comment on above: Performed By: #### C BC #### [facility] [address] [place] [address] Dr. Yayo Gregg Eosinophils/100 WBC (Bld) 7.6 % Critically high 0.9-7.0 [facility] Comment on above: Performed By: #### C BC #### [facility] [address] [place] [address] Dr. Yayo Gregg Erythrocyte distribution width (RBC) [Ratio] 15.1 % Critically high 11.0-15.0 [facility] Comment on above: Performed By: #### C BC #### [facility] [address] [place] [address] Dr. Yayo Gregg Hematocrit (Bld) [Volume fraction] 32.0 % Critically low 36.0-48.0 [facility] Comment on above: Performed By: #### C BC #### [facility] [address] [place] [address] Dr. Yayo Gregg Hemoglobin (Bld) [Mass/Vol] 10.4 g/dL Critically low 12.0-16.0 [facility] Comment on above: Performed By: #### C BC #### [facility] [address] [place] [address] Dr. Yayo Gregg IG # 0.05 10e3/ul Critically high 0.00-0.03 [facility] Comment on above: Performed By: #### C BC #### [facility] [address] [place] [address] Dr. Yayo Gregg IG % 0.5 % Normal 0.0-0.5 [facility] Comment on above: Performed By: #### C BC #### [facility] [address] [place] [address] Dr. Yayo Gregg LYMPH # 2.9 103/ul Normal 1.2-3.8 [facility] Comment on above: Performed By: #### C BC #### [facility] [address] [place] [address] Dr. Yayo Gregg Lymphocytes/100 WBC (Bld) 27.7 % Normal 20.5-60.0 [facility] Comment on above: Performed By: #### C BC #### [facility] [address] [place] [address] Dr. Yayo Gregg MANUAL DIFF REQ NO Normal [facility] Comment on above: Performed By: #### C BC #### [facility] [address] [address] [address] Yayo Gregg MCH (RBC) [Entitic mass] 26.5 pg Critically low 26.7-34.0 [facility] Comment on above: Performed By: #### C BC #### [facility] [address] [place] [address] Dr. Yayo Gregg MCHC (RBC) [Mass/Vol] 32.5 g/dL Normal 29.9-35.2 [facility] Comment on above: Performed By: #### C BC #### [facility] [address] [place] [address] Dr. Yayo Gregg MCV (RBC) [Entitic vol] 81.4 fL Normal 81.0-99.0 [facility] Comment on above: Performed By: #### C BC #### [facility] [address] [place] [address] Dr. Yayo Gregg MONO # 1.3 103/ul Critically high 0.3-0.8 [facility] Comment on above: Performed By: #### C BC #### [facility] [address] [place] [address] Dr. Yayo Gregg Monocytes/100 WBC (Bld) 12.5 % Critically high 1.7-12.0 [facility] Comment on above: Performed By: #### C BC #### [facility] [address] [place] [address] Dr. Yayo Gregg NEUT # 5.2 103/ul Normal 1.4-6.5 [facility] Comment on above: Performed By: #### C BC #### [facility] [address] [place] [address] Dr. Yayo Gregg Neutrophils/100 WBC (Bld) 50.7 % Normal 43.0-75.0 [facility] Comment on above: Performed By: #### C BC #### [facility] [address] [place] [address] Dr. Yayo Gregg Platelet mean volume (Bld) [Entitic vol] 9.6 fL Normal 9.5-13.5 [facility] Comment on above: Performed By: #### C BC #### [facility] [address] [place] [address] Dr. Yayo Gregg PLT 409 103/ul Normal 150-450 [facility] Comment on above: Performed By: #### C BC #### [facility] [address] [place] [address] Dr. Yayo Gregg RBC 3.93 106/ul Critically low 4.20-5.40 [facility] Comment on above: Performed By: #### C BC #### [facility] [address] [place] [address] Dr. Yayo Gregg WBC 10.3 103/ul Normal 4.0-11.0 [facility] Comment on above: Performed By: #### C BC #### [facility] [address] [place] [address] Dr. Yayo Gregg FERRITINon 03-26-2022 Ferritin [Mass/Vol] 22.0 ng/mL Normal 8.0-252.0 [facility] Comment on above: Performed By: #### I MMUNGL #### [facility] [address] [place] [address] Dr. Yayo Gregg CBC AUTO DIFFon 02-09-2022 BASO # 0.1 103/ul Normal 0.0-0.1 [facility] Comment on above: Performed By: #### C BC #### [facility] [address] [place] [address] Dr. Yayo Gregg Basophils/100 WBC (Bld) 0.7 % Normal 0.2-2.0 [facility] Comment on above: Performed By: #### C BC #### [facility] [address] [place] [address] Dr. Yayo Gregg EO # 0.9 103/ul Critically high 0.0-0.7 [facility] Comment on above: Performed By: #### C BC #### [facility] [address] [place] [address] Dr. Yayo Gregg Eosinophils/100 WBC (Bld) 7.5 % Critically high 0.9-7.0 [facility] Comment on above: Performed By: #### C BC #### [facility] [address] [place] [address] Dr. Yayo Gregg Erythrocyte distribution width (RBC) [Ratio] 15.1 % Critically high 11.0-15.0 [facility] Comment on above: Performed By: #### C BC #### [facility] [address] [place] [address] Dr. Yayo Gregg Hematocrit (Bld) [Volume fraction] 32.5 % Critically low 36.0-48.0 [facility] Comment on above: Performed By: #### C BC #### [facility] [address] [place] [address] Dr. Yayo Gregg Hemoglobin (Bld) [Mass/Vol] 10.9 g/dL Critically low 12.0-16.0 [facility] Comment on above: Performed By: #### C BC #### [facility] [address] [place] [address] Dr. Yayo Gregg IG # 0.16 10e3/ul Critically high 0.00-0.03 [facility] Comment on above: Performed By: #### C BC #### [facility] [address] [place] [address] Dr. Yayo Gregg IG % 1.3 % Critically high 0.0-0.5 [facility] Comment on above: Performed By: #### C BC #### [facility] [address] [place] [address] Dr. Yayo Gregg LYMPH # 2.9 103/ul Normal 1.2-3.8 [facility] Comment on above: Performed By: #### C BC #### [facility] [address] [place] [address] Dr. Yayo Gregg Lymphocytes/100 WBC (Bld) 24.0 % Normal 20.5-60.0 [facility] Comment on above: Performed By: #### C BC #### [facility] [address] [place] [address] Dr. Yayo Gregg MANUAL DIFF REQ NO Normal [facility] Comment on above: Performed By: #### C BC #### [facility] [address] [address] [address] Yayo Gregg MCH (RBC) [Entitic mass] 27.2 pg Normal 26.7-34.0 [facility] Comment on above: Performed By: #### C BC #### [facility] [address] [place] [address] Dr. Yayo Gregg MCHC (RBC) [Mass/Vol] 33.5 g/dL Normal 29.9-35.2 [facility] Comment on above: Performed By: #### C BC #### [facility] [address] [place] [address] Dr. Yayo Gregg MCV (RBC) [Entitic vol] 81.0 fL Normal 81.0-99.0 [facility] Comment on above: Performed By: #### C BC #### [facility] [address] [place] [address] Dr. Yayo Gregg MONO # 1.6 103/ul Critically high 0.3-0.8 [facility] Comment on above: Performed By: #### C BC #### [facility] [address] [place] [address] Dr. Yayo Gregg Monocytes/100 WBC (Bld) 13.4 % Critically high 1.7-12.0 [facility] Comment on above: Performed By: #### C BC #### [facility] [address] [place] [address] Dr. Yayo Gregg NEUT # 6.3 103/ul Normal 1.4-6.5 [facility] Comment on above: Performed By: #### C BC #### [facility] [address] [place] [address] Dr. Yayo Gregg Neutrophils/100 WBC (Bld) 53.1 % Normal 43.0-75.0 [facility] Comment on above: Performed By: #### C BC #### [facility] [address] [place] [address] Dr. Yayo Gregg Platelet mean volume (Bld) [Entitic vol] 9.4 fL Critically low 9.5-13.5 [facility] Comment on above: Performed By: #### C BC #### [facility] [address] [place] [address] Dr. Yayo Gregg PLT 426 103/ul Normal 150-450 [facility] Comment on above: Performed By: #### C BC #### [facility] [address] [place] [address] Dr. Yayo Gregg RBC 4.01 106/ul Critically low 4.20-5.40 [facility] Comment on above: Performed By: #### C BC #### [facility] [address] [place] [address] Dr. Yayo Gregg WBC 11.9 103/ul Critically high 4.0-11.0 [facility] Comment on above: Performed By: #### C BC #### [facility] [address] [place] [address] Dr. Yayo Gregg FERRITINon 02-09-2022 Ferritin [Mass/Vol] 36.0 ng/mL Normal 8.0-252.0 [facility] Comment on above: Performed By: #### V ITB12, FETIBC, FERR #### [facility] [address] [place] [address] Dr. Yayo Gregg IRON AND TIBCon 02-09-2022 % SATURATION 5.2 % Normal [facility] Comment on above: Performed By: #### V ITB12, FETIBC, FERR #### [facility] [address] [place] [address] Dr. Yayo Gregg Iron [Mass/Vol] 16.0 ug/dL Critically low 50.0-170.0 [facility] Comment on above: Performed By: #### V ITB12, FETIBC, FERR #### [facility] [address] [place] [address] Dr. Yayo Gregg TIBC DIRECT 305.0 ug/dL Normal 250.0-450.0 [facility] Comment on above: Performed By: #### V ITB12, FETIBC, FERR #### [facility] [address] [place] [address] Dr. Yayo Gregg VITAMIN B12on 02-09-2022 Cobalamin (Vitamin B12) [Mass/Vol] 819.0 pg/mL Normal 193.0-986.0 [facility] Comment on above: Performed By: #### V ITB12, FETIBC, FERR #### [facility] [address] [place] [address] Dr. Yayo Gregg BNPon 01-27-2022 Natriuretic peptide B (Bld) [Mass/Vol] 270.0 pg/mL Normal <=1,800.0 [facility] Comment on above: Performed By: #### I MMUNGL #### [facility] [address] [place] [address] Dr. Yayo Gregg CARDIAC TARAN ADMITon 022 CK [Catalytic activity/Vol] 143 U/L Normal 26-192 [facility] Comment on above: Performed By: #### I MMUNGL #### [facility] [address] [place] [address] Dr. Yayo Gregg CK.MB [Mass/Vol] 2.66 ng/mL Normal <=3.60 [facility] Comment on above: Performed By: #### I MMUNGL #### [facility] [address] [place] [address] Dr. Yayo Gregg HSTROP 4.0 pg/mL Normal 4.0-51.3 [facility] Comment on above: Result Comment: CUT- OFF POINTS HAVE BEEN ESTABLISHED BASED ON THE FOURTH UNIVERSAL DEFINITIONS OF MYOCARDIAL INFARCTION. THE UPPER REFERENCE LIMIT (URL) OF TROPONIN, DEFINED THE 99TH PERCENTILE OF cTnI DISTRIBUTION IN A REFERENCE POPULATION, HAS BEEN CONFIRMED THE DECISION THRESHOLD FOR [place] DIAGNOSIS. Performed By: #### I MMUNGL #### [facility] [address] [place] [address] Dr. Yayo Gregg CARA 113 ng/mL Critically high 9-82 [facility] Comment on above: Performed By: #### I MMUNGL #### [facility] [address] [place] [address] Dr. Yayo Gregg CBC AUTO DIFFon 01-27-2022 BASO # 0.1 103/ul Normal 0.0-0.1 [facility] Comment on above: Performed By: #### C BC #### [facility] Laboratory [address] [place] [address] Dr. Yayo Gregg Basophils/100 WBC (Bld) 0.7 % Normal 0.2-2.0 [facility] Comment on above: Performed By: #### C BC #### [facility] [address] [place] [address] Dr. Yayo Gregg EO # 1.1 103/ul Critically high 0.0-0.7 [facility] Comment on above: Performed By: #### C BC #### [facility] [address] [place] [address] Dr. Yayo Gregg Eosinophils/100 WBC (Bld) 7.3 % Critically high 0.9-7.0 [facility] Comment on above: Performed By: #### C BC #### [facility] [address] [place] [address] Dr. Yayo Gregg Erythrocyte distribution width (RBC) [Ratio] 13.8 % Normal 11.0-15.0 [facility] Comment on above: Performed By: #### C BC #### [facility] [address] [place] [address] Dr. Yayo Gregg Hematocrit (Bld) [Volume fraction] 34.4 % Critically low 36.0-48.0 [facility] Comment on above: Performed By: #### C BC #### [facility] [address] [place] [address] Dr. Yayo Gregg Hemoglobin (Bld) [Mass/Vol] 11.3 g/dL Critically low 12.0-16.0 [facility] Comment on above: Performed By: #### C BC #### [facility] [address] [place] [address] Dr. Yayo Gregg IG # 0.09 10e3/ul Critically high 0.00-0.03 [facility] Comment on above: Performed By: #### C BC #### [facility] [address] [place] [address] Dr. Yayo Gregg IG % 0.6 % Critically high 0.0-0.5 [facility] Comment on above: Performed By: #### C BC #### [facility] [address] [place] [address] Dr. Yayo Gregg LYMPH # 2.5 103/ul Normal 1.2-3.8 [facility] Comment on above: Performed By: #### C BC #### [facility] [address] [place] [address] Dr. Yayo Gregg Lymphocytes/100 WBC (Bld) 16.6 % Critically low 20.5-60.0 [facility] Comment on above: Performed By: #### C BC #### [facility] [address] [place] [address] Dr. Yayo Gregg MANUAL DIFF REQ NO Normal [facility] Comment on above: Performed By: #### C BC #### [facility] [address] [place] [address] Dr. Yayo Gregg MCH (RBC) [Entitic mass] 26.7 pg Normal 26.7-34.0 [facility] Comment on above: Performed By: #### C BC #### [facility] [address] [place] [address] Dr. Yayo Gregg MCHC (RBC) [Mass/Vol] 32.8 g/dL Normal 29.9-35.2 [facility] Comment on above: Performed By: #### C BC #### [facility] [address] [place] [address] Dr. Yayo Gregg MCV (RBC) [Entitic vol] 81.1 fL Normal 81.0-99.0 [facility] Comment on above: Performed By: #### C BC #### [facility] [address] [place] [address] Dr. Yayo Gregg MONO # 2.1 103/ul Critically high 0.3-0.8 [facility] Comment on above: Performed By: #### C BC #### [facility] [address] [place] [address] Dr. Yayo Gregg Monocytes/100 WBC (Bld) 14.0 % Critically high 1.7-12.0 [facility] Comment on above: Performed By: #### C BC #### [facility] [address] [place] [address] Dr. Yayo Gregg NEUT # 9.1 103/ul Critically high 1.4-6.5 [facility] Comment on above: Performed By: #### C BC #### [facility] [address] [place] [address] Dr. Yayo Gregg Neutrophils/100 WBC (Bld) 60.8 % Normal 43.0-75.0 [facility] Comment on above: Performed By: #### C BC #### [facility] [address] [place] [address] Dr. Yayo Gregg Platelet mean volume (Bld) [Entitic vol] 10.2 fL Normal 9.5-13.5 [facility] Comment on above: Performed By: #### C BC #### [facility] [address] [place] [address] Dr. Yayo Gregg PLT 455 103/ul Critically high 150-450 [facility] Comment on above: Performed By: #### C BC #### [facility] [address] [place] [address] Dr. Yayo Gregg RBC 4.24 106/ul Normal 4.20-5.40 [facility] Comment on above: Performed By: #### C BC #### [facility] [address] [place] [address] Dr. Yayo Gregg WBC 14.9 103/ul Critically high 4.0-11.0 [facility] Comment on above: Performed By: #### C BC #### [facility] [address] [place] [address] Dr. Yayo Gregg Covid-19 PCR ([facility])on 01-09 SARS-CoV-2 (COVID-19) RNA CHANTALE+probe Ql (Unsp spec) Not detected Normal NOT DETECTED [facility] Comment on above: Result Comment: When [...] for this test is supported by the [place] of Health and Human Service's declaration that [...] used). Performed By: #### C BC #### [facility] [address] [place] [address] Dr. Yayo Gregg PROF 14(COMP METB)on 022 Albumin [Mass/Vol] 3.0 g/dL Critically low 3.4-5.0 [facility] Comment on above: Performed By: #### I MMUNGL #### [facility] [address] [place] [address] Dr. Yayo Gregg Albumin/Globulin [Mass ratio] 0.9 {ratio} Normal [facility] Comment on above: Performed By: #### I MMUNGL #### [facility] [address] [place] [address] Dr. Yayo Gregg ALP [Catalytic activity/Vol] 95 U/L Normal 46-116 [facility] Comment on above: Performed By: #### I MMUNGL #### [facility] [address] [place] [address] Dr. Yayo Gregg ALT [Catalytic activity/Vol] 28 U/L Normal 14-59 [facility] Comment on above: Performed By: #### I MMUNGL #### [facility] [address] [place] [address] Dr. Yayo Gregg Anion gap [Moles/Vol] 11.9 mmol/L Normal [facility] Comment on above: Performed By: #### I MMUNGL #### [facility] [address] [address] [address] Yayo Gregg AST [Catalytic activity/Vol] 24 U/L Normal 15-37 [facility] Comment on above: Performed By: #### I MMUNGL #### [facility] [address] [address] [address] Yayo Gregg Bilirubin [Mass/Vol] 0.3 mg/dL Normal 0.2-1.0 [facility] Comment on above: Performed By: #### I MMUNGL #### [facility] [address] [address] [address] Yayo Gregg Calcium [Mass/Vol] 8.8 mg/dL Normal 8.5-10.1 [facility] Comment on above: Performed By: #### I MMUNGL #### [facility] [address] [place] [address] Dr. Yayo Gregg Chloride [Moles/Vol] 98 mmol/L Normal 98-107 [facility] Comment on above: Performed By: #### I MMUNGL #### [facility] [address] [place] [address] Dr. Yayo Gregg CO2 [Moles/Vol] 24.6 mmol/L Normal 21.0-32.0 [facility] Comment on above: Performed By: #### I MMUNGL #### [facility] [address] [place] [address] Dr. Yayo Gregg Creatinine [Mass/Vol] 0.91 mg/dL Normal 0.55-1.02 [facility] Comment on above: Performed By: #### I MMUNGL #### [facility] [address] [place] [address] Dr. Yayo Gregg EGFR-AF MAURITANIAN >60 Normal >=60 [facility] Comment on above: Performed By: #### I MMUNGL #### [facility] [address] [place] [address] Dr. Yayo Gregg EGFR-NON AF MAURITANIAN 59 mL/min/1.73m2 Critically low >=60 [facility] Comment on above: Performed By: #### I MMUNGL #### [facility] [address] [address] [address] Yayo Gregg Globulin (S) [Mass/Vol] 3.3 g/dL Normal [facility] Comment on above: Performed By: #### I MMUNGL #### [facility] [address] [place] [address] Dr. Yayo Gregg Glucose [Mass/Vol] 95 mg/dL Normal 74-106 [facility] Comment on above: Performed By: #### I MMUNGL #### [facility] [address] [place] [address] Dr. Yayo Gregg Potassium [Moles/Vol] 4.5 mmol/L Normal 3.5-5.1 [facility] Comment on above: Performed By: #### I MMUNGL #### [facility] [address] [place] [address] Dr. Yayo Gregg Protein [Mass/Vol] 6.3 g/dL Critically low 6.4-8.[address] [facility] Comment on above: Performed By: #### I MMUNGL #### [facility] [address] [place] [address] Dr. Yayo Gregg Sodium [Moles/Vol] 130 mmol/L Critically low 136-145 [facility] Comment on above: Performed By: #### I MMUNGL #### [facility] [address] [place] [address] Dr. Yayo Gregg Urea nitrogen [Mass/Vol] 12.0 mg/dL Normal 7.0-18.0 [facility] Comment on above: Performed By: #### I MMUNGL #### [facility] [address] [place] [address] Dr. Yayo Gregg Urea nitrogen/Creatinine [Mass ratio] 13.2 mg/mg Normal [facility] Comment on above: Performed By: #### I MMUNGL #### [facility] [address] [place] [address] Dr. Yayo Gregg PROTIMEon 01-27-2022 INR Coag (PPP) [Relative time] 0.96 {INR} Normal [facility] Comment on above: Performed By: #### I MMUNGL #### [facility] [address] [address] [address] Yayo Gregg INR GUIDELINES SEE BELOW Normal [facility] Comment on above: Result Comment: ASHLEY RED INR: 2.0 - 3.0 CONDITIONS NOT LISTED BELOW 2.5 - 3.5 FOR PROSTHETIC HEART VALVE REPLACEMENT 2.5 - 3.5 RECURRENT THROMBOSIS Performed By: #### I MMUNGL #### [facility] [id number] Yayo Gregg PT Coag (PPP) [Time] 10.4 s Normal 9.0-11.6 [facility] Comment on above: Performed By: #### I MMUNGL #### [facility] [address] [place] [address] Dr. Yayo Gregg PTTon 01-27-2022 aPTT Coag (Bld) [Time] 31.6 s Normal 22.3-36.2 [facility] Comment on above: Performed By: #### I MMUNGL #### [facility] [address] [place] [address] Dr. Yayo Gregg TROPONIN, HIGH SENSITIVITYon 01-27-2022 HSTROP 4.7 pg/mL Normal 4.0-51.3 [facility] Comment on above: Result Comment: CUT- OFF POINTS HAVE BEEN ESTABLISHED BASED ON THE FOURTH UNIVERSAL DEFINITIONS OF MYOCARDIAL INFARCTION. THE UPPER REFERENCE LIMIT (URL) OF TROPONIN, DEFINED THE 99TH PERCENTILE OF cTnI DISTRIBUTION IN A REFERENCE POPULATION, HAS BEEN CONFIRMED THE DECISION THRESHOLD FOR [place] DIAGNOSIS. Performed By: #### H STROPN #### [facility] [address] [place] [address] Dr. Yayo Gregg XR CHEST 1 Von [...] by: ANTHONY BAEZ Date: 2022-01-27 11:47 Normal [facility] XR LSPINE 2_3 VIEWSon 2021 XR [...] by: BENJAMIN GUNN Date: 2021-12-18 14:19 Normal [facility] BASIC METABOLIC PANEL(BMP)on 01-06-2018 Anion gap 12 mmol/L Normal 9-18 [facility] Comment on above: Performed By: #### C SHARITA ZCBCGR ####MAIN LABCLIA:[id number] [place] [address] BUN (urea nitrogen) 17 mg/dL Normal 8-23 [facility] Comment on above: Performed By: #### C SHARITA ZCBCGR ####MAIN LABCLIA:[id number] [place] [address] BUN/Creatinine Ratio 22.1 mg/mg Normal [facility] Comment on above: Performed By: #### C SHARITA ZCBCGR ####MAIN LABCLIA:[id number] [place] [address] Calcium 7.9 mg/dL Low 8.8-10.2 [facility] Comment on above: Performed By: #### C SHARITA ZCBCGR ####MAIN LABCLIA:[id number] [place] [address] Chloride 101 mmol/L Normal 98-107 [facility] Comment on above: Performed By: #### C SHARITA, ZCBCGR ####MAIN LABCLIA:[id number] [place] [address] CO2 24 mmol/L Normal 22-29 [facility] Comment on above: Performed By: #### C SHARITA, ZCBCGR ####MAIN LABCLIA:[id number] [place] [address] Creatinine 0.77 mg/dL Normal 0.50-0.90 [facility] Comment on above: Performed By: #### C SHARITA, ZCBCGR ####MAIN LABCLIA:[id number] [place] [address] eGFR (MDRD) 77 /1.73 m2 Normal >60 mL/min [facility] Comment on above: Result Comment: Norm al RangeStage Description:1 Normal or Increased GFR >=902 Mild Decrease in GFR 60-903 Moderately Decreased GFR 30-594 Severely Decreased GFR 15-295 Kidney Failure <15 Performed By: #### C SHARITA, ZCBCGR ####MAIN LABCLIA:[id number] [place] [address] Glucose mass conc 89 mg/dL Normal 74-109 [facility] Comment on above: Performed By: #### C SHARITA, ZCBCGR ####MAIN LABCLIA:[id number] [place] [address] Potassium molar conc 4.4 mmol/L Normal 3.5-5.1 [facility] Comment on above: Performed By: #### C SHARITA, ZCBCGR ####MAIN LABCLIA:[id number] [place] [address] Sodium 133 mmol/L Low 136-145 [facility] Comment on above: Performed By: #### C SHARITA, ZCBCGR ####MAIN LABCLIA:[id number] [facility] [address] CBC/DIFF GROUPon 01-06-2018 Anisocytosis presence 1+ Normal [facility] Comment on above: Performed By: #### C SHARITA, ZCBCGR ####MAIN LABCLIA:[id number] [facility] [place] [address] HYPOCHROMASIA 1+ Normal [facility] Comment on above: Performed By: #### C SHARITA ZCBCGR ####MAIN LABCLIA:[id number] [facility] [place] [address] NORMOCHROMIC NO Normal [facility] Comment on above: Performed By: #### C SHARITA ZCBCGR ####MAIN LABCLIA:[id number] [facility] [address] NORMOCYTIC NO Normal [facility] Comment on above: Performed By: #### C SHARITA ZCBCGR ####MAIN LABCLIA:[id number] [place] [address] Platelets NORMAL Normal [facility] Comment on above: Performed By: #### C SHARITA ZCBCGR ####MAIN LABCLIA:[id number] [place] [address] BAND NEUTROPHILS #(MANUAL) 152 /cmm Normal <648 [facility] Comment on above: Performed By: #### C SHARITA ZCBCGR ####MAIN LABCLIA:[id number] [place] [address] Eosinophils 456 /cmm High <432 [facility] Comment on above: Performed By: #### C SHARITA ZCBCGR ####MAIN LABCLIA:[id number] [place] [address] Eosinophils/100 leukocytes 6 % High <4 [facility] Comment on above: Performed By: #### C SHARITA ZCBCGR ####MAIN LABCLIA:[id number] [place] [address] Lymphocytes 1748 /cmm Normal 960-4752 [facility] Comment on above: Performed By: #### C SHARITA ZCBCGR ####MAIN LABCLIA:[id number] [place] [address] Lymphocytes/100 leukocytes 23 % Normal 20-44 [facility] Comment on above: Performed By: #### C SHARITA ZCBCGR ####MAIN LABCLIA:[id number] [place] [address] METAMYELOCYTES #(MANUAL) 76 /cmm High 0 [facility] Comment on above: Performed By: #### C SHARITA ZCBCGR ####MAIN LABCLIA:[id number] [facility] [address] Metamyelocytes/100 leukocytes 1 % High 0 [facility] Comment on above: Performed By: #### C SHARITA ZCBCGR ####MAIN LABCLIA:[id number] [facility] [address] Monocytes 1292 /cmm High 96-972 [facility] Comment on above: Performed By: #### C SHARITA ZCBCGR ####MAIN LABCLIA:[id number] [place] [address] Monocytes/100 leukocytes 17 % High 2-9 [facility] Comment on above: Performed By: #### C SHARITA ZCBCGR ####MAIN LABCLIA:[id number] [place] [address] Neutrophils 3876 /cmm Normal 5686-6413 [facility] Comment on above: Performed By: #### C SHARITA ZCBCGR ####MAIN LABCLIA:[id number] [place] [address] Neutrophils band/100 leukocytes 2 % Normal <6 [facility] Comment on above: Performed By: #### C SHARITA ZCBCGR ####MAIN LABCLIA:[id number] [facility] [place] [address] Neutrophils/100 WBC Auto (Bld) 51 % Normal 50-70 [facility] Comment on above: Performed By: #### Vladimir SHERIFF ZCBCGR ####MAIN LABCLIA:[id number] [place] [address] TOTAL CELLS COUNTED 100 Normal [facility] Comment on above: Performed By: #### Vladimir SHERIFF ZCBCGR ####MAIN LABCLIA:[id number] [facility] [address] Erythrocyte distribution width Auto Ratio (RBC) 13.0 % Normal 11.5-14.5 [facility] Comment on above: Performed By: #### C BC, ZCBCGR ####MAIN LABCLIA:[id number] [place] [address] Erythrocytes (RBC) 3.49 10 6/cmm Low 4.20-5.40 [facility] Comment on above: Performed By: #### C SHARITA, ZCBCGR ####MAIN LABCLIA:[id number] [place] [address] Hematocrit (HCT) 29.4 % Low 38.0-47.0 [facility] Comment on above: Performed By: #### C SHARITA, ZCBCGR ####MAIN LABCLIA:[id number] [place] [address] Hemoglobin mass conc (Bld) 10.1 g/dL Low 12.0-16.4 [facility] Comment on above: Performed By: #### C SHARITA, ZCBCGR ####MAIN LABCLIA:[id number] [place] [address] MCH 34.5 g/dL Normal 32.0-36.0 [facility] Comment on above: Performed By: #### C SHARITA, ZCBCGR ####MAIN LABCLIA:[id number] [place] [address] MCH 29.1 pg Normal 27.0-31.0 [facility] Comment on above: Performed By: #### C SHARITA, ZCBCGR ####MAIN LABCLIA:[id number] [place] [address] MCV 84.3 fL Normal 80.0-96.0 [facility] Comment on above: Performed By: #### C SHARITA, ZCBCGR ####MAIN LABCLIA:[id number] [place] [address] Platelets 359 10 3/cmm Normal 130-400 [facility] Comment on above: Performed By: #### C SHARITA, ZCBCGR ####MAIN LABCLIA:[id number] [place] [address] WBC (Leukocytes) 7.6 10 3/cmm Normal 4.8-10.8 [facility] Comment on above: Performed By: #### C BC, ZCBCGR ####MAIN LABCLIA:[id number] [place] [address] FREE T4 (FREE THYROXINE)on 0 01-06-2018 Thyroxine (T4) free 2.46 ng/dL High 0.93-1.7 [facility] Comment on above: Performed By: #### C BC, ZCBCGR ####MAIN LABCLIA:[id number] [place] [address] IM Progress Noteon 8 IM Progress Note [address] [place], [place] [address] TANGELA MOSS 77 [id number] Donnell Barton MD 4W / [id number] 1940 Report #: [id number] Hospitalist Progress Note Date/Time: 01/06/18805 Report Status: [...] fine and wants to go back to [place]. Her will be driving. - Reviewed laboratory [...] have her follow-up with her physician in [place]. (2) Hyponatremia Status: Improved Plan: Sodium of 133-asymptomatic urine sodium slightly elevated at 35. (3) Essential hypertension Status: Stable (4) Hypothyroidism Plan: Suppressed TSH, her physician from [place] just called her in down dosed her [...] 0817 Electronically Cosigned By: Cosigned Date/Time: Normal [facility] T3 FREEon 01-06-2018 Triiodothyronine (T3) free 5.92 pg/mL High 2.0-4.4 [facility] Comment on above: Performed By: #### VAMSI RUFFGR ####MAIN LABCLIA:[id number] [place] [address] CBC/DIFF GROUPon 01-05-2018 NORMOCHROMIC YES Normal [facility] Comment on above: Performed By: #### VAMSI RUFFGR ####MAIN LABCLIA:[id number] [place] [address] NORMOCYTIC YES Normal [facility] Comment on above: Performed By: #### MELONY RUFF ####MAIN LABCLIA:[id number] [place] [address] Platelets NORMAL Normal [facility] Comment on above: Performed By: #### C VAMSI SHERIFFGR ####MAIN LABCLIA:[id number] [place] [address] BAND NEUTROPHILS #(MANUAL) 414 /cmm Normal <648 [facility] Comment on above: Performed By: #### C SHARITA, ZCBCGR ####MAIN LABCLIA:[id number] [facility] [address] Eosinophils 552 /cmm High <432 [facility] Comment on above: Performed By: #### C SHARITA, ZCBCGR ####MAIN LABCLIA:[id number] [place] [address] Eosinophils/100 leukocytes 4 % Normal <4 [facility] Comment on above: Performed By: #### C SHARITA, ZCBCGR ####MAIN LABCLIA:[id number] [place] [address] Lymphocytes 690 /cmm Low 960-4752 [facility] Comment on above: Performed By: #### C SHARITA, ZCBCGR ####MAIN LABCLIA:[id number] [place] [address] Lymphocytes/100 leukocytes 5 % Low 20-44 [facility] Comment on above: Performed By: #### C SHARITA, ZCBCGR ####MAIN LABCLIA:[id number] [place] [address] Monocytes 1242 /cmm High 96-972 [facility] Comment on above: Performed By: #### C SHARITA, ZCBCGR ####MAIN LABCLIA:[id number] [place] [address] Monocytes/100 leukocytes 9 % Normal 2-9 [facility] Comment on above: Performed By: #### C SHARITA, ZCBCGR ####MAIN LABCLIA:[id number] [place] [address] Neutrophils 82254 /cmm High 9614-0977 [facility] Comment on above: Performed By: #### C SHARITA, ZCBCGR ####MAIN LABCLIA:[id number] [facility] [address] Neutrophils band/100 leukocytes 3 % Normal <6 [facility] Comment on above: Performed By: #### C SHARITA ZCBCGR ####MAIN LABCLIA:[id number] [place] [address] Neutrophils/100 WBC Auto (Bld) 79 % High 50-70 [facility] Comment on above: Performed By: #### C SHARITA, ZCBCGR ####MAIN LABCLIA:[id number] [place] [address] TOTAL CELLS COUNTED 100 Normal [facility] Comment on above: Performed By: #### C SHARITA ZCBCGR ####MAIN LABCLIA:[id number] [place] [address] Hematocrit (HCT) 36.0 % Low 38.0-47.0 [facility] Comment on above: Performed By: #### C SHARITA ZCBCGR ####MAIN LABCLIA:[id number] [place] [address] Hemoglobin mass conc (Bld) 12.2 g/dL Normal 12.0-16.4 [facility] Comment on above: Performed By: #### C SHARITA ZCBCGR ####MAIN LABCLIA:[id number] [place] [address] MCH 28.6 pg Normal 27.0-31.0 [facility] Comment on above: Performed By: #### C SHARITA ZCBCGR ####MAIN LABCLIA:[id number] [place] [address] MCV 84.1 fL Normal 80.0-96.0 [facility] Comment on above: Performed By: #### C SHARITA ZCBCGR ####MAIN LABCLIA:[id number] [place] [address] WBC (Leukocytes) 13.8 10 3/cmm High 4.8-10.8 [facility] Comment on above: Performed By: #### C SHARITA, ZCBCGR ####MAIN LABCLIA:[id number] [place] [address] CHEST 2 VIEWSon 01-05-2018 CHEST 2 VIEWS [facility] [place], [place] [phone]____ Pt Location: 4W/ ADM IN Pt RM#: [id number] MR #: [id number] DATE: 01/05/18 1236 ADM#: [id number] #: [id number] JANET MOSSOB: 1940 Age/Sex: 77 / F REPORT STATUS: SignedORDERING PHYSICIAN: STU Salvador/PRIMARY PHYSICIAN: DoctorUmm HISTO RY/REASON: CPCLINICAL HISTORY: Dizziness.TECHNICAL FACTORS: 2 [...] ROSY Salvador; Doctor,No; Donnell Barton MD Normal [facility] COMPLETE BLOOD COUNTon 01-05 Erythrocyte distribution width Auto Ratio (RBC) 12.7 % Normal 11.5-14.5 [facility] Comment on above: Performed By: #### C , ZCBCGR ####MAIN LABCLIA:[id number] [place] [address] Erythrocytes (RBC) 4.28 10 6/cmm Normal 4.20-5.40 [facility] Comment on above: Performed By: #### C BCAMANDACGR ####MAIN LABCLIA:[id number] [facility] [address] MCH 34.0 g/dL Normal 32.0-36.0 [facility] Comment on above: Performed By: #### C BCYaquelinCBCGR ####MAIN LABCLIA:[id number] [place] [address] Platelets 423 10 3/cmm High 130-400 [facility] Comment on above: Performed By: #### C BCVAMSIGR ####MAIN LABCLIA:[id number] [place] [address] COMPREHENSIVE METABOLIC PANE [facility] 01-05-2018 Alanine aminotransferase (ALT) 15 U/L Normal 0-33 [facility] Comment on above: Performed By: #### C MP, MG ####MAIN LABCLIA:[id number] [place] [address] Albumin 3.3 g/dL Normal 3.0-4.5 [facility] Comment on above: Performed By: #### C MP, MG ####MAIN LABCLIA:[id number] [place] [address] Albumin/Globulin Ratio 1.2 {ratio} Normal 1-1.4 [facility] Comment on above: Performed By: #### C MP, MG ####MAIN LABCLIA:[id number] [place] [address] Alkaline phosphatase (ALP) 76 U/L Normal 35-104 [facility] Comment on above: Performed By: #### C MP, MG ####MAIN LABCLIA:[id number] [place] [address] Anion gap 15 mmol/L Normal 9-18 [facility] Comment on above: Performed By: #### C MP, MG ####MAIN LABCLIA:[id number] [place] [address] Aspartate aminotransferase (AST) 16 U/L Normal 0-32 [facility] Comment on above: Performed By: #### C MP, MG ####MAIN LABCLIA:[id number] [facility] [place] [address] Bilirubin (total) 0.4 mg/dL Normal 0.2-1.2 [facility] Comment on above: Performed By: #### C MP, MG ####MAIN LABCLIA:[id number] [place] [address] BUN (urea nitrogen) 26 mg/dL High 8-23 [facility] Comment on above: Performed By: #### C MP, MG ####MAIN LABCLIA:[id number] [place] [address] BUN/Creatinine Ratio 22.2 mg/mg Normal [facility] Comment on above: Performed By: #### C MP, MG ####MAIN LABCLIA:[id number] [place] [address] Calcium 8.5 mg/dL Low 8.8-10.2 [facility] Comment on above: Performed By: #### C MP, MG ####MAIN LABCLIA:[id number] [place] [address] Chloride 90 mmol/L Low 98-107 [facility] Comment on above: Performed By: #### C MP, MG ####MAIN LABCLIA:[id number] [place] [address] CO2 26 mmol/L Normal 22-29 [facility] Comment on above: Performed By: #### C MP, MG ####MAIN LABCLIA:[id number] [place] [address] Creatinine 1.17 mg/dL High 0.50-0.90 [facility] Comment on above: Performed By: #### C MP, MG ####MAIN LABCLIA:[id number] [place] [address] eGFR (MDRD) 47 /1.73 m2 Low >60 mL/min [facility] Comment on above: Result Comment: Norm al RangeStage Description:1 Normal or Increased GFR >=902 Mild Decrease in GFR 60-903 Moderately Decreased GFR 30-594 Severely Decreased GFR 15-295 Kidney Failure <15 Performed By: #### C MP, MG ####MAIN LABCLIA:[id number] [place] [address] Globulin 2.7 g/dL Normal 2.3-3.5 [facility] Comment on above: Performed By: #### C MP, MG ####MAIN LABCLIA:[id number] [place] [address] Glucose mass conc 136 mg/dL High 74-109 [facility] Comment on above: Performed By: #### C MP, MG ####MAIN LABCLIA:[id number] [place] [address] Potassium molar conc 4.5 mmol/L Normal 3.5-5.1 [facility] Comment on above: Performed By: #### C MP, MG ####MAIN LABCLIA:[id number] [place] [address] Protein 6.0 g/dL Low 6.4-8.3 [facility] Comment on above: Performed By: #### C MP, MG ####MAIN LABCLIA:[id number] [place] [address] Sodium 126 mmol/L Low 136-145 [facility] Comment on above: Performed By: #### C MP, MG ####MAIN LABCLIA:[id number] [place] [address] CT HEAD WOon 01-05-2018 CT HEAD WO [address] [phone]____ Pt Location: 4W/ ADM IN Pt RM#: [id number] MR #: [id number] DATE: 01/05/18 1236 ADM#: [id number] #: [id number] JANET MOSSOB: 1940 Age/Sex: 77 / F [...] matter.REPORT# [id number] READ BY: Cielo Pacheco M.D. [id number] REPORT RELEASED BY: Cielo Pacheco M.D. 01/05/18 1502Transcribed Date/Time: 01/05/18 1339 PLPCC: ROSY Salvador; Doctor,No; Donnell Barton MD [facility] Emergency Room Visit Reporto n 01-05-2018 Emergency Room Visit Report [address], [place] [address] TANGELA MOSS 1940 (77 F) [id number] Helio Hoang 4W Report #: [id number] PCP: No Doctor Emergency Room Visit Report [...] reports feeling dizziness and near syncope at [facility]. Pt reports recent bronchitis that she [...] Allergy Mild Rash Verified 01/05/18 12:40 Antibiotics) Ahogfrs-Ayk-One Reductase Allergy Unknown Verified 01/05/18 12:40 Inhibitor [...] PO BID 01/05/18 01/05/18 raNITIdine HCl [Acid Manager Wound Care] 150 mg PO BID 01/05/18 01/05/18 ROS [...] % (Manual) (<4) % Neutrophils # (Manual) ([id number]) /cmm Band Neutrophils # (<648) /cmm Lymphocytes [...] Appearance Clear Urine pH 7.0 Ur Specific [place] <=1.005 Urine Protein Negative (NEGATIVE) Urine Glucose [...] (Manual) 4 (<4) % Neutrophils # (Manual) 25687 H (6215-8886) /cmm Band Neutrophils # 414 (<648) /cmm [...] Color Urine Appearance Urine pH Ur Specific [place] Urine Protein (NEGATIVE) Urine Glucose (UA) (NEGATIVE) [...] an inhaler. This was obtained by the [facility] pharmacy in [facility]. 01/05/18 14:40 I discussed this [...] Sohan Grover MD Cosigned Date/Time: 01/05/18 190 [facility] History & Physicalon 018 History & Physical [address] [place] [address] TANGELA MOSS 77 [id number] Donnell Barton MD 4W / [id number] 1940 Report #: [id number] Admission Date: 01/05/18 History Physical Date/Time: 01/05/18 [...] episode. Patient is visiting this area from [place] in [place] [...] asymptomatic. 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 which shows normal sinus rhythm, EKG shows [...] Allergy Mild Rash Verified 01/05/18 12:40 Antibiotics) Ctuychx-Psf-Qga Reductase Allergy Unknown Verified 01/05/18 12:40 Inhibitor [...] PO BID 01/05/18 01/05/18 raNITIdine HCl [Acid Manager Wound Care] 150 mg PO BID 01/05/18 01/05/18 Allergies [...] 1541 Electronically Cosigned By: Cosigned Date/Time: Normal [facility] MAGNESIUMon 01-05-2018 Magnesium 2.1 mg/dL Normal 1.6-2.6 [facility] Comment on above: Performed By: #### C MP, MG ####MAIN LABCLIA:[id number] [facility] [address] SODIUM,URINE RANDOMon 2017 SODIUM,URINE RANDOM 35 mmol/L Normal [facility] Comment on above: Order Comment: COLLE CTED BY: Sherine Tenorio Result Comment: The reference range has not been established for this test. Performed By: #### C BC, ZCBCGR ####MAIN LABCLIA:[id number] [facility] [address] THYROID STIMULATING HORMONEo n 01-05-2018 Thyroid stimulating hormone (TSH) 0.16 uIU/mL Low 0.27-4.20 [facility] Comment on above: Performed By: #### C BC, ZCBCGR ####MAIN LABCLIA:[id number] [place] [address] TROPONIN Ton 01-05-2018 Troponin T.cardiac mass conc ug/L Normal <0.010 [facility] Comment on above: Result Comment: Valu es [...] Performed By: #### C BC, ZCBCGR ####MAIN LABCLIA:[id number] [facility] [address] Troponin T.cardiac mass conc ug/L Normal <0.010 [facility] Comment on above: Result Comment: Valu es [...] hours. Performed By: #### T ROPT ####MAIN LABCLIA:[id number] [facility] [place] [address] URINALYSISon 01-05-2018 UA APPEARANCE CLEAR Normal [facility] Comment on above: Order Comment: COLLE CTED BY: Tye acostaOID-MIDSTREAM Performed By: #### U A ####MAIN LABCLIA:[id number] [facility] [address] UA BACTERIA NONE Normal NONE [facility] Comment on above: Order Comment: COLLE CTED BY: Tye acostaOID-MIDSTREAM Performed By: #### U A ####MAIN LABCLIA:[id number] [facility] [address] UA SQUAMOUS EPITHELIAL 0-2 Normal [facility] Comment on above: Order Comment: COLLE CTED BY: Tye acostaOID-MIDSTREAM Performed By: #### U A ####MAIN LABCLIA:[id number] [facility] [address] UA WBC 0-2 Normal 0-2 [facility] Comment on above: Order Comment: COLLE CTED BY: Tye acostaOID-MIDSTREAM Performed By: #### U A ####MAIN LABCLIA:[id number] [facility] [address] Urine, color YELLOW Normal [facility] Comment on above: Order Comment: COLLE CTED BY: Tye acostaOID-MIDSTREAM Performed By: #### U A ####MAIN LABCLIA:[id number] [facility] [address] Urine, erythrocytes 0-2 Normal 0-2 [facility] Comment on above: Order Comment: COLLE CTED BY: Tye acostaOID-MIDSTREAM Performed By: #### U A ####MAIN LABCLIA:[id number] [facility] [address] UA BILIRUBIN Negative Normal NEGATIVE [facility] Comment on above: Order Comment: COLLE CTED BY: Tye acostaOID-MIDSTREAM Performed By: #### U A ####MAIN LABCLIA:[id number] [place] [address] UA BLOOD Negative Normal NEGATIVE [facility] Comment on above: Order Comment: COLLE CTED BY: davedVOID-MIDSTREAM Performed By: #### U A ####MAIN LABCLIA:[id number] [place] [address] UA LEUKOCYTE ESTERASE TRACE Normal NEGATIVE [facility] Comment on above: Order Comment: COLLE CTED BY: davedVOID-MIDSTREAM Performed By: #### U A ####MAIN LABCLIA:[id number] [place] [address] UA NITRITES Negative Normal NEGATIVE [facility] Comment on above: Order Comment: COLLE CTED BY: davedVOID-MIDSTREAM Performed By: #### U A ####MAIN LABCLIA:[id number] [place] [address] UA PH 7.0 Normal [facility] Comment on above: Order Comment: COLLE CTED BY: davedVOID-MIDSTREAM Performed By: #### U A ####MAIN LABCLIA:[id number] [place] [address] UA PROTEIN Negative Normal NEGATIVE [facility] Comment on above: Order Comment: COLLE CTED BY: Tye acostaOID-MIDSTREAM Performed By: #### U A ####MAIN LABCLIA:[id number] [place] [address] UA SPECIFIC GRAVITY <=1.005 [facility] Comment on above: Order Comment: COLLE CTED BY: davedVOID-MIDSTREAM Performed By: #### U A ####MAIN LABCLIA:[id number] [place] [address] UA UROBILINOGEN 0.2 mg/dL Normal 0.0-1.0 [facility] Comment on above: Order Comment: COLLE CTED BY: Tye acostaOID-MIDSTREAM Performed By: #### U A ####MAIN LABCLIA:[id number] [place] [address] Urine, glucose Negative Normal NEGATIVE [facility] Comment on above: Order Comment: COLLE CTED BY: Tye acostaOID-MIDSTREAM Performed By: #### U A ####MAIN LABCLIA:[id number] [place] [address] Urine, ketones presence Negative Normal NEGATIVE [facility] Comment on above: Order Comment: COLLE CTED BY: davedVOID-MIDSTREAM Performed By: #### U A ####MAIN LABCLIA:[id number] [place] [address] URINE SOURCE VOID-MIDSTREAM Normal [facility] Comment on above: Order Comment: COLLE CTED BY: davedVOID-MIDSTREAM Performed By: #### U A ####MAIN LABCLIA:[id number] [place] [address] VASCULAR RISK PANELon 2017 Cholesterol 180 mg/dL Normal 0-199 [facility] Comment on above: Order Comment: Comme nts: Use blood from ED if available Performed By: #### C BC, ZCBCGR ####MAIN LABCLIA:[id number] [place] [address] HDL Cholesterol 42 mg/dL Low >65 [facility] Comment on above: Order Comment: Comme nts: Use blood from ED if available Performed By: #### C BC, ZCBCGR ####MAIN LABCLIA:[id number] [place] [address] LDL Cholesterol 98 mg/dL Normal <129 [facility] Comment on above: Order Comment: Comme nts: Use blood from ED if available Performed By: #### C BC, ZCBCGR ####MAIN LABCLIA:[id number] [place] [address] Triglyceride 202 mg/dL High 0-199 [facility] Comment on above: Order Comment: Comme nts: Use blood from ED if available Performed By: #### C BC, ZCBCGR ####MAIN LABCLIA:[id number] [place] [address] VLDL CHOLESTEROL 40 mg/dL Normal 5-40 [facility] Comment on above: Order Comment: Comme nts: Use blood from ED if available Performed By: #### C MELONY SHERIFF ####MAIN LABCLIA:[id number] [place] [address] Vital Signs Date Time Vital Sign Value Performing Clinician Facility 01-10-2025 10:040 Body height 152.4 cm Kvng Ball DO Work Phone: [facility] 01-10-2025 10:070400 Body mass index (BMI) [Ratio] 27 kg/m2 Kvng Ball DO Work Phone: [facility] 01-10-2025 10:07040 Body weight 62.7 kg Kvng Ball DO Work Phone: [facility] 01-10-2025 10:07-0400 Diastolic blood pressure 78 mm[Hg] Kvng Ball DO Work Phone: [facility] 01-10-2025 10:07-0400 Heart rate 61 /min Kvng Ball DO Work Phone: [facility] 01-10-2025 10:07-0400 Respiratory rate 12 /min Kvng Ball DO Work Phone: [facility] 01-10-2025 10:07-0400 Systolic blood pressure 121 mm[Hg] Kvng Ball DO Work Phone: [facility] 10-04-2024 10:040 Body height 152.4 cm [facility] 10-04-2024 10:290400 Body mass index (BMI) [Ratio] 27.3 kg/m2 [facility] 10-04-2024 10:29-0400 Body weight 63.55 kg [facility] 10-04-2024 10:29-0400 Diastolic blood pressure 84 mm[Hg] [facility] 10-04-2024 10:29-0400 Heart rate 64 /min [facility] 10-04-2024 10:29-0400 Respiratory rate 12 /min [facility] 10-04-2024 10:29-0400 SaO2% (BldA) [Mass fraction] 100 % [facility] 10-04-2024 10:29-0400 Systolic blood pressure 133 mm[Hg] [facility] 06-21-2024 10:58-0500 Body height 152.4 cm Alyssa Corona SCREENPLAY WRITER Work Phone: [facility] 06-21-2024 10:58-0500 Body mass index (BMI) [Ratio] 27.15 kg/m2 Alyssa Corona SCREENPLAY WRITER Work Phone: [facility] 06-21-2024 10:58-0500 Body weight 63.05 kg Alyssa Corona SCREENPLAY WRITER Work Phone: [facility] 06-21-2024 10:58-0500 Diastolic blood pressure 62 mm[Hg] Alyssa Corona SCREENPLAY WRITER Work Phone: [facility] 06-21-2024 10:58-0500 Heart rate 56 /min Alyssa Corona SCREENPLAY WRITER Work Phone: [facility] 06-21-2024 10:58-0500 SaO2% (BldA) [Mass fraction] 96 % Alyssa Corona SCREENPLAY WRITER Work Phone: [facility] 06-21-2024 10:58-0500 Systolic blood pressure 116 mm[Hg] Alyssa Corona SCREENPLAY WRITER Work Phone: [facility] 03-29-2024 08:54-0400 Body height 152.4 cm Domingopaul Hurtado DO Work Phone: [facility] 03-29-2024 08:54-0400 Body mass index (BMI) [Ratio] 26.95 kg/m2 Christopher Genesis DO Work Phone: [facility] 03-29-2024 08:54-0400 Body weight 62.6 kg Christopher Genesis DO Work Phone: [facility] 03-29-2024 08:54-0400 Diastolic blood pressure 78 mm[Hg] Domingoopher Genesis DO Work Phone: [facility] 03-29-2024 08:54-0400 Systolic blood pressure 112 mm[Hg] Christopher Genesis DO Work Phone: [facility] 03-01-2024 14:02-0400 Body height 152.4 cm Christopher Genesis DO Work Phone: [facility] 03-01-2024 14:02-0400 Body mass index (BMI) [Ratio] 27.15 kg/m2 Christopher Genesis DO Work Phone: [facility] 03-01-2024 14:02-0400 Body weight 63.05 kg Christopher Genesis DO Work Phone: [facility] 03-01-2024 14:02-0400 Diastolic blood pressure 86 mm[Hg] Christopher Genesis DO Work Phone: [facility] 03-01-2024 14:02-0400 Systolic blood pressure 128 mm[Hg] Christopher Genesis DO Work Phone: [facility] 01-02-2024 11:39-0400 Body height 152.4 cm DO Kvng Ball Work Phone: [facility] 01-02-2024 11:39-0400 Body mass index (BMI) [Ratio] 26.6 kg/m2 DO Kvng Ball Work Phone: [facility] 01-02-2024 11:39-0400 Body weight 61.91 kg DO Kvng Ball Work Phone: [facility] 01-02-2024 11:39-0400 Diastolic blood pressure 85 mm[Hg] DO Kvng Ball Work Phone: [facility] 01-02-2024 11:39-0400 Heart rate 66 /min DO Kvng Ball Work Phone: [facility] 01-02-2024 11:39-0400 Respiratory rate 12 /min DO Kvng Ball Work Phone: [facility] 01-02-2024 11:39-0400 Systolic blood pressure 124 mm[Hg] DO Kvng Ball Work Phone: [facility] 05-27-2023 11:00-0500 Body height 152.4 cm Kvng Ball Other [employer] Other 05-27-2023 11:00-0500 Diastolic blood pressure 84 mm[Hg] Kvng Ball Other [employer] Other 05-27-2023 11:00-0500 Systolic blood pressure 124 mm[Hg] Kvng Ball Other [employer] Other 03-04-2023 13:45-0400 Body height 152.4 cm Kvng Ball Other [employer] Other 03-04-2023 13:45-0400 Body mass index (BMI) [Ratio] 28.47 kg/m2 Kvng Ball Other [employer] Other 03-04-2023 13:45-0400 Body weight 66.13 kg Kvng Ball Other [employer] Other 03-04-2023 13:45-0400 Diastolic blood pressure 80 mm[Hg] Kvng Ball Other [employer] Other 03-04-2023 13:45-0400 Respiratory rate 12 /min Kvng Ball Other [employer] Other 03-04-2023 13:45-0400 Systolic blood pressure 117 mm[Hg] Kvng Ball Other [employer] Other 02-22-2023 11:00-0400 Body height 152.4 cm Kvng Ball Other [employer] Other 02-22-2023 11:00-0400 Body mass index (BMI) [Ratio] 28.39 kg/m2 Kvng Ball Other [employer] Other 02-22-2023 11:00-0400 Body weight 65.95 kg Kvng Ball Other [employer] Other 02-22-2023 11:00-0400 Diastolic blood pressure 83 mm[Hg] Kvng Ball Other [employer] Other 02-22-2023 11:00-0400 Respiratory rate 12 /min Kvng Ball Other [employer] Other 02-22-2023 11:00-0400 Systolic blood pressure 132 mm[Hg] Kvng Ball Other [employer] Other 01-24-2023 09:18-0400 Diastolic blood pressure 72 mm[Hg] DO Kvng Ball Work Phone: [facility] 01-24-2023 09:18-0400 Heart rate 56 /min DO Kvng Ball Work Phone: [facility] 01-24-2023 09:18-0400 Respiratory rate 14 /min DO Kvng Ball Work Phone: [facility] 01-24-2023 09:18-0400 SaO2% (BldA) [Mass fraction] 98 % DO Kvng Ball Work Phone: [facility] 01-24-2023 09:18-0400 Systolic blood pressure 126 mm[Hg] DO Kvng Ball Work Phone: [facility] 01-24-2023 07:44-0400 Body height 154.94 cm DO Kvng Ball Work Phone: [facility] 01-24-2023 07:44-0400 Body temperature 97.8 [degF] DO Kvng Ball Work Phone: [facility] 01-24-2023 07:44-0400 Body weight 65.31 kg DO Kvng Ball Work Phone: [facility] 11-18-2022 12:00-0400 Body height 152.4 cm Kvng Ball Other [employer] [facility] [employer] Other 11-18-2022 12:00-0400 Body mass index (BMI) [Ratio] 28.74 kg/m2 Kvng Ball Other [employer] Other 11-18-2022 12:00-0400 Body weight 66.77 kg Kvng Ball Other [facility] [employer] Other 11-18-2022 12:00-0400 Diastolic blood pressure 82 mm[Hg] Kvng Ball Other [facility] [employer] Other 11-18-2022 12:00-0400 Respiratory rate 12 /min Kvng Ball Other [facility] [employer] Other 11-18-2022 12:00-0400 Systolic blood pressure 125 mm[Hg] Kvng Ball Other [employer] Other 10-28-2022 14:05-0400 Diastolic blood pressure 73 mm[Hg] DO Kvng Ball Work Phone: [facility] 10-28-2022 14:05-0400 Heart rate 60 /min DO Kvng Ball Work Phone: [facility] 10-28-2022 14:05-0400 Respiratory rate 18 /min DO Kvng Ball Work Phone: [facility] 10-28-2022 14:05-0400 SaO2% (BldA) [Mass fraction] 96 % DO Kvng Ball Work Phone: [facility] 10-28-2022 14:05-0400 Systolic blood pressure 117 mm[Hg] DO Kvng Ball Work Phone: [facility] 10-28-2022 11:42-0400 Body height 154.94 cm DO Kvng Ball Work Phone: [facility] 10-28-2022 11:42-0400 Body temperature 97.9 [degF] DO Kvng Ball Work Phone: [facility] 10-28-2022 11:42-0400 Body weight 65.77 kg DO Kvng Ball Work Phone: [facility] 10-12-2022 15:00-0400 Body height 152.4 cm Kvng Ball Other [facility] [employer] Other 10-12-2022 15:00-0400 Body mass index (BMI) [Ratio] 28.78 kg/m2 Kvng Ball Other [facility] [employer] Other 10-12-2022 15:00-0400 Body weight 66.86 kg Kvng Ball Other [facility] [employer] Other 10-12-2022 15:00-0400 Diastolic blood pressure 80 mm[Hg] Kvng Ball Other [facility] [employer] Other 10-12-2022 15:00-0400 Respiratory rate 12 /min Kvng Ball Other [facility] [employer] Other 10-12-2022 15:00-0400 Systolic blood pressure 116 mm[Hg] Kvng Ball Other [employer] [facility] [employer] Other 07-27-2022 14:38-0500 Body height 152.4 cm Mavis Santiago MD Work Phone: [facility] 07-27-2022 14:38-0500 Body temperature 98.1 [degF] Mavis Santiago MD Work Phone: [facility] 07-27-2022 14:38-0500 Body weight 66.5 kg Mavis Santiago MD Work Phone: [facility] 07-27-2022 14:38-0500 Diastolic blood pressure 72 mm[Hg] Mavis Santiago MD Work Phone: [facility] 07-27-2022 14:38-0500 Heart rate 64 /min Mavis Santiago MD Work Phone: [facility] 07-27-2022 14:38-0500 Respiratory rate 16 /min Mavis Santiago MD Work Phone: [facility] 07-27-2022 14:38-0500 SaO2% (BldA) [Mass fraction] 97 % Mavis Santiago MD Work Phone: [facility] 07-27-2022 14:38-0500 Systolic blood pressure 125 mm[Hg] Mavsi Santiago MD Work Phone: [facility] 07-26-2022 09:19-0500 Diastolic blood pressure 69 mm[Hg] DO Kvng Ball Work Phone: [facility] 07-26-2022 09:19-0500 Heart rate 59 /min DO Kvng Ball Work Phone: [facility] 07-26-2022 09:19-0500 Respiratory rate 16 /min DO Kvng Ball Work Phone: [facility] 07-26-2022 09:19-0500 SaO2% (BldA) [Mass fraction] 98 % DO Kvng Ball Work Phone: [facility] 07-26-2022 09:19-0500 Systolic blood pressure 111 mm[Hg] DO Kvng Ball Work Phone: [facility] 07-26-2022 07:19-0500 Body height 154.94 cm DO Kvng Ball Work Phone: [facility] 07-26-2022 07:19-0500 Body temperature 97.7 [degF] DO Kvng Ball Work Phone: [facility] 07-26-2022 07:19-0500 Body weight 66.22 kg DO Kvng Ball Work Phone: [facility] 07-21-2022 14:30-0500 Body height 152.4 cm Kvng Ball Other [employer] Other 07-21-2022 14:30-0500 Body mass index (BMI) [Ratio] 28.82 kg/m2 Kvng Ball Other [employer] Other 07-21-2022 14:30-0500 Body weight 66.95 kg Kvng Ball Other [employer] Other 07-21-2022 14:30-0500 Diastolic blood pressure 70 mm[Hg] Kvng Ball Other [employer] Other 07-21-2022 14:30-0500 Respiratory rate 12 /min Kvng Ball Other [employer] Other 07-21-2022 14:30-0500 Systolic blood pressure 118 mm[Hg] Kvng Ball Other [employer] Other 05-25-2022 13:02-0500 Body temperature 96.91 [degF] Chair Billings Work Phone: [facility] 05-25-2022 13:02-0500 Diastolic blood pressure 88 mm[Hg] Chair Billings Work Phone: [facility] 05-25-2022 13:02-0500 Heart rate 68 /min Chair Billings Work Phone: [facility] 05-25-2022 13:02-0500 Respiratory rate 18 /min Chair Billings Work Phone: [facility] 05-25-2022 13:02-0500 SaO2% (BldA) [Mass fraction] 100 % Chair Billings Work Phone: [facility] 05-25-2022 13:02-0500 Systolic blood pressure 146 mm[Hg] Chair Ryan Work Phone: [facility] 05-18-2022 15:42-0500 Body temperature 98.1 [degF] Mavis Santiago MD Work Phone: [facility] 05-18-2022 15:42-0500 Body weight 68.04 kg Mavis Santiago MD Work Phone: [facility] 05-18-2022 15:42-0500 Diastolic blood pressure 78 mm[Hg] Mavis Santiago MD Work Phone: [facility] 05-18-2022 15:42-0500 Heart rate 78 /min Mavis Santiago MD Work Phone: [facility] 05-18-2022 15:42-0500 Respiratory rate 16 /min Mavis Santiago MD Work Phone: [facility] 05-18-2022 15:42-0500 SaO2% (BldA) [Mass fraction] 98 % Mavis Santiago MD Work Phone: [facility] 05-18-2022 15:42-0500 Systolic blood pressure 122 mm[Hg] Mavis Santiago MD Work Phone: [facility] Encounters Encounter Date Encounter Type Care Provider Facility Start: 01-10-2025 End: 01-10-2025 ambulatory Kvng Wadsworth DO Work Phone: [facility] Work Phone: Start: 01-10-2025 End: 01-10-2025 Patient encounter procedure Kvng Wadsworth DO -[facility] Work Phone: Start: 01-01-2025 End: 01-01-2025 ambulatory CESARIO COBIAN Not Available Start: 01-01-2025 End: 01-01-2025 Bamboo flowsheet Cesario Cobian DO Work Phone: [facility] Start: 01-01-2025 End: 01-01-2025 Bamboo flowsheet Cesario Cobian DO Work Phone: [facility] Start: 11-01-2024 Non-patient / Non-visit Kvng mac DO -[facility] Work Phone: Start: 10-04-2024 End: 10-04-2024 ambulatory [facility] Work Phone: Start: 10-04-2024 End: 10-04-2024 Patient encounter procedure [facility] Work Phone: Start: 09-24-2024 End: 09-24-2024 ambulatory CESARIO COBIAN Not Available Start: 06-21-2024 End: 06-21-2024 Bamboo flowsheet Alyssa Corona SCREENPLAY WRITER Work Phone: [facility] Start: 06-21-2024 End: 06-21-2024 Bamboo flowsheet Alyssa Corona SCREENPLAY WRITER Work Phone: [facility] Start: 06-21-2024 End: 06-21-2024 Office outpatient visit 15 minutes Alyssa Corona SCREENPLAY WRITER Work Phone: [facility] Comment on above: Ptosis of left eyeli d (Primary Dx); Left abducens nerve palsy Start: 06-21-2024 End: 06-21-2024 ambulatory ALYSSA CORONA Not Available Start: 04-23-2024 End: 04-23-2024 ambulatory Charlotte Levi MD Facility:[facility] Start: 04-09-2024 End: 04-09-2024 ambulatory Charlotte Levi MD Facility:[facility] Start: 04-02-2024 End: 04-02-2024 ambulatory Charlotte Levi MD Facility:[facility] Start: 03-29-2024 End: 03-29-2024 Bamboo flowsheet Lorelei Hurtado DO Work Phone: [facility] Start: 03-29-2024 End: 03-29-2024 Bamboo flowsheet Lorelei Hurtado DO Work Phone: [facility] [address] Start: 03-29-2024 End: 03-29-2024 Office outpatient visit 25 minutes Lorelei Hurtado DO [facility] Phone: [facility] Comment on above: Ptosis of left eyeli d (Primary Dx); Left abducens nerve palsy Start: 03-29-2024 End: 03-29-2024 ambulatory LORELEI HURTADO Not Available Start: 03-20-2024 End: 03-20-2024 Bamboo flowsheet Nicho Mccoy DO Work Phone: [facility] Start: 03-20-2024 End: 03-20-2024 Bamboo flowsheet Nicho Mccoy DO Work Phone: [facility] Start: 03-20-2024 End: 03-20-2024 Office outpatient visit 15 minutes Nicho Mccoy DO Work Phone: [facility] Comment on above: Chronic low back tom n, unspecified back pain laterality, unspecified whether sciatica present (Primary Dx); DDD (degenerative disc disease), lumbar; Spinal stenosis of lumbar region, unspecified whether neurogenic claudication present Start: 03-20-2024 End: 03-20-2024 ambulatory NICHO MCCOY Not Available Start: 03-16-2024 End: 03-16-2024 Patient encounter procedure DO Kvng Ball Work Phone: [facility] [place] Work Phone: Start: 03-16-2024 End: 03-16-2024 ambulatory DO Kvng Ball Work Phone: [facility] Work Phone: Start: 03-13-2024 End: 03-14-2024 Telephone encounter Veda Milligan SCREENPLAY WRITER Work Phone: [facility] Comment on above: referral Start: 03-01-2024 End: 03-01-2024 Bamboo flowsheet Lorelei Kelloggett DO Work [facility] Start: 03-01-2024 End: 03-01-2024 Bamboo flowsheet Lorelei Hurtado DO Work Phone[facility] Start: 03-01-2024 End: 03-01-2024 Office outpatient visit 25 minutes Toddalena Hurtado DO Work Phone: [facility] Comment on above: Myasthenia gravis (C MS/HCC) (Primary Dx); Ptosis of left eyelid; Left abducens nerve palsy Start: 03-01-2024 End: 03-01-2024 ambulatory TODDALENA KELLOGGETT Not Available Start: 01-31-2024 End: 01-31-2024 ambulatory TODDALENA GENESIS Not Available Start: 01-25-2024 End: 01-25-2024 ambulatory VEDA Guerrero APLING Not Available Start: 01-02-2024 End: 01-02-2024 Patient encounter procedure DO Kvng Wadsworth Work Phone: [facility] Work Phone: Start: 09-15-2023 End: 09-15-2023 ambulatory Imad Asaad Other [employer] Other Start: 09-15-2023 Telephone encounter Imad Asaad [facility] Start: 08-10-2023 End: 08-10-2023 ambulatory Imad Asaad Other [employer] Other Start: 08-10-2023 Office outpatient vi sit 25 minutes Imad Asaad [facility] Start: 08-01-2023 End: 08-01-2023 ambulatory Kvng Ermelinda Other [employer] Other Start: 08-01-2023 Telephone encounter Kvng Wadsworth [facility] Start: 07-25-2023 End: 07-25-2023 Patient encounter procedure DO Kvng Wadsworth Work Phone: [facility] [place] Work Phone: Start: 07-25-2023 End: 07-25-2023 ambulatory DO Kvng Wadsworth Work Phone: [facility] Work Phone: Start: 07-06-2023 End: 07-06-2023 ambulatory Imad Asaad Other [employer] Other Start: 07-06-2023 Telephone encounter Imad Asaad [facility] Start: 06-20-2023 End: 06-20-2023 ambulatory Kvng Ball Other [employer] Other Start: 06-20-2023 Telephone encounter Kvng Ball [facility] Start: 06-15-2023 End: 06-15-2023 ambulatory Kvng Ball Other [employer] Other Start: 06-15-2023 Telephone encounter Kvng Ball [facility] Start: 06-08-2023 End: 06-08-2023 ambulatory Kvng Ball Other [employer] Other Start: 06-08-2023 Telephone encounter Kvng Ball [facility] Start: 05-31-2023 End: 05-31-2023 ambulatory Kvng Ball Other [employer] Other Start: 05-31-2023 Telephone encounter Kvng Ball [facility] Start: 05-29-2023 End: 05-29-2023 ambulatory Kvng Ball Other [employer] Other Start: 05-29-2023 Telephone encounter Kvng Ball [facility] Start: 05-28-2023 End: 05-28-2023 ambulatory Kvng Ball Other [employer] Other Start: 05-28-2023 Telephone encounter Kvng Ball [facility] Start: 05-27-2023 End: 05-27-2023 ambulatory Kvng Wadsworth Other [employer] Other Start: 05-27-2023 Office outpatient vi sit 25 minutes Kvng Wadsworth [facility] Start: 05-25-2023 End: 05-25-2023 ambulatory Kvng Wadsworth Other [employer] Other Start: 05-25-2023 Telephone encounter Kvng Wadsworth [facility] Start: 05-20-2023 End: 05-20-2023 ambulatory Kvng Wadsworth Other [employer] Other Start: 05-20-2023 Telephone encounter Kvng Wadsworth [facility] Start: 05-10-2023 End: 05-10-2023 ambulatory Imad Asaad Other [employer] Other Start: 05-10-2023 Telephone encounter Imad Asaad [facility] Start: 04-26-2023 End: 04-26-2023 ambulatory Kvng Wadsworth Other [employer] Other Start: 04-26-2023 Nursing evaluation o f patient and report Kvng Wadsworth [facility] Start: 03-23-2023 End: 03-23-2023 ambulatory Imad Asaad Other [employer] Other Start: 03-23-2023 Telephone encounter Imad Asaad [facility] Start: 03-10-2023 End: 03-10-2023 ambulatory Kvng Wadsworth Other [employer] Other Start: 03-10-2023 Telephone encounter Kvng RODRIGES [facility] Start: 03-07-2023 End: 03-07-2023 ambulatory Kvng Wadsworth Other [employer] Other Start: 03-07-2023 Telephone encounter Kvng Wadsworth [facility] Start: 03-04-2023 End: 03-04-2023 ambulatory Kvng Ball Other [employer] Other Start: 03-04-2023 Office outpatient vi sit 15 minutes Kvng Ball [facility] Start: 02-28-2023 End: 02-28-2023 ambulatory Kvng Ball Other [employer] Other Start: 02-28-2023 Telephone encounter Kvng Ball [facility] Start: 02-22-2023 End: 02-22-2023 ambulatory Kvng Ball Other [employer] Other Start: 02-22-2023 Office outpatient vi sit 25 minutes Kvng Ball [facility] Start: 02-21-2023 End: 02-21-2023 ambulatory Kvng Ball Other [employer] Other Start: 02-21-2023 Telephone encounter Kvng Ball [facility] Start: 01-24-2023 End: 01-24-2023 ambulatory Sadiq Beckham Other [employer] Other Start: 01-24-2023 Telephone encounter Sadiq Barnardsuma Pollard [facility] Start: 01-24-2023 End: 01-24-2023 Admission to same day surgery center DO Kvng Ball Work Phone: [facility] Work Phone: Start: 12-28-2022 End: 12-28-2022 ambulatory Kvng Ball Other [employer] Other Start: 12-28-2022 Telephone encounter Kvng Ball [facility] Start: 11-19-2022 End: 11-19-2022 ambulatory Kvng Ball Other [employer] Other Start: 11-19-2022 Telephone encounter Kvng Ball [facility] Start: 11-18-2022 End: 11-18-2022 ambulatory Kvng Ball Other [employer] Other Start: 11-18-2022 Patient encounter procedure Kvng Wadsworth [facility] Start: 11-01-2022 End: 11-01-2022 ambulatory Imad Asaad Other [employer] Other Start: 11-01-2022 Telephone encounter Imad Asaad [facility] Start: 10-28-2022 Telephone encounter Sadiq Dante [facility] Start: 10-28-2022 End: 10-28-2022 Admission to same day surgery center DO Kvng Wadsworth Work Phone: [facility] Work Phone: Start: 10-28-2022 End: 10-28-2022 ambulatory DO Kvng Wadsworth Work Phone: [facility] Work Phone: Start: 10-21-2022 End: 10-21-2022 ambulatory Kvng Wadsworth Other [employer] Other Start: 10-21-2022 Telephone encounter Kvng RODRIGES [facility] Start: 10-20-2022 End: 10-21-[address] KVNG WADSWORTH Facility:[facility] Start: 10-12-2022 End: 10-12-2022 ambulatory Kvng Wadsworth Other [employer] Other Start: 10-12-2022 Office outpatient vi sit 15 minutes Kvng Wadsworth [facility] Start: 10-12-2022 Telephone encounter Kvng Armstrong Liner Worker Start: 09-27-2022 End: 10-13-[address] KVNG WADSWORTH Facility:[facility] Start: 07-29-2022 End: 07-29-2022 ambulatory Kvng Wadsworth Other [employer] Other Start: 07-29-2022 Telephone encounter Kvng RODRIGES [facility] Start: 07-27-2022 End: 07-27-2022 ambulatory KVNG WADSWORTH Facility:[facility] Start: 07-27-2022 End: 07-27-2022 Office outpatient visit 15 minutes Mavis Santiago MD Work Phone: Hematology/Oncology Comment on above: Iron deficiency (Danielle bethany Dx) Start: 07-26-[address] [facility] Start: 07-26-2022 End: 07-26-2022 Admission to same day surgery center DO Kvng Wadsworth Work Phone: [facility] Work Phone: Start: 07-26-2022 End: 07-26-2022 ambulatory DO Kvng Wadsworth Work Phone: [facility] Work Phone: Start: 07-22-2022 End: 07-22-2022 Patient encounter procedure DO Kvng Wadsworth Work Phone: [facility]-Pre-Surgical Testing Work Phone: Start: 07-21-2022 End: 07-21-2022 ambulatory Kvng Wadsworth Other [facility] [employer] Other Start: 07-21-2022 Office outpatient vi sit 25 minutes Kvng Wadsworth [facility] Start: 06-02-2022 Social Work Marcia Ramires IMMIGRATION ASSOCIATE Hematolo gy/Oncology Start: 05-25-2022 Telephone encounter Financial [...] Start: 05-18-2022 Telephone encounter Adebayo RODRIGES G Liner Worker Start: 05-17-2022 Chart abstracting Mavis abraham MD Work Phone: Hematology/Oncology Start: 05-04-2022 End: 05-05-[address] KVNG WADSWORTH Facility:[facility] Start: 03-31-2022 End: 03-31-[address] KVNG WADSWORTH Facility:[facility] Start: 03-26-2022 End: 03-27-[address] KVNG WADSWORTH Facility:[facility] Start: 02-09-2022 End: 02-10-[address] KVNG WADWSORTH Facility:[facility] Start: 01-27-2022 End: 01-27-2022 ambulatory NISSA PACE . Facility:[facility] Start: 01-01-2022 End: 01-02-2022 ambulatory LIDA RAY . Facility:[facility] Start: 12-18-2021 End: 12-19-[address] KVNG WADSWORTH Facility:[facility] Start: 06-09-2021 Adult health examination Kvng Wadsworth Other [employer] Other Start: 08-02-2019 Preoperative cardiovascular examination Kvng Wadsworth Other [employer] Other Start: 05-31-2019 Gynecological examination normal Kvng Wadsworth Other [employer] Other Start: 01-05-2018 End: 01-06-2018 Evaluation and management of inpatient No Doctor Facility:[facility] Procedures Date Procedure Procedure Detail Performing Clinician Start: 01-01-2025 End: 01-01-2025 Visual field xm uni/bi w/interp extended exam Cesario Cobian DO Work Phone: Start: 01-01-2025 End: 01-01-2025 Ophth medical xm&eval intermediate estab pt Primary open angle glaucoma (POAG) of left eye, moderate stage Cesario Cobian DO Work Phone: Comment on above: Primary open angle glaucoma (POAG) of le ft eye, moderate stage (Primary Dx); Primary open angle glaucoma (POAG) of right eye, mild stage ; 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 Start: 03-16-2024 CT of thorax with contrast DO Kvng Guerrero all Work Phone: Start: 07-25-2023 Radionuclide gastric emptying study DO Kvng Wadsworth Work Phone: Start: 01-24-2023 Esophagogastroduodenoscopy DO [...] Treatment Date Care Activity Detail Author Start: 01-01-2025 End: 01-01-2025 Patient encounter procedure 01/01/2025 2:30 PM EDT Office Visit [facility] [address] [place] [address] Cesario Cobian DO [address] [place], [place] [id number] Arrived [facility] Comment on above: Arrived Start: 06-21-2024 End: 06-21-2024 Patient encounter procedure [...] neurogenic claudication present Start: 03-11-2024 Influenza vaccination Influenza Vacc ine (#1) [facility] Start: 03-01-2024 End: 03-01-2025 Creatinine [Mass/volume] in Serum or Plasma Creatinine, Serum Lab Routine Myasthenia gravis (CMS/HCC) 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 Expected: 03/01/2024 (Approximate), Expires: 03/01/2025 [facility] Comment on above: Expected: 03/01/2024 (Approximate), Expires: 03/01/2025 Start: 03-01-2024 End: 03-01-2025 CT Chest W contrast IV CT chest w IV contrast Imaging Routine Myasthenia gravis (CMS/HCC) 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 Expected: 03/01/2024, Expires: 03/01/2025 [facility] Work Phone: Comment on above: Expected: 03/01/2024 , Expires: 03/01/2025 Start: 03-01-2024 End: 03-01-2024 Patient encounter procedure 03/01/2024 2:00 PM EDT Office Visit [facility] [address] [address] Lorelei Hurtado, [address] [place] [address] [id number] Arrived [facility] Comment on above: Arrived Start: 01-24-2023 End: 03-26-2023 CBC W Auto Differential panel - Blood CBC + DIFF Lab Routine Iron deficiency Expected: 01/24/2023 (Approximate), Expires: 03/26/2023 [facility] Work Phone: Comment on above: Expected: 01/24/2023 (Approximate), Expires: 03/26/2023 Start: 01-24-2023 End: 07-27-2023 Ferritin [Mass/volume] in Serum or Plasma FERRITIN BLD Lab Routine Iron deficiency Expected: 01/24/2023 (Approximate), Expires: 07/27/2023 [facility] Work Phone: Comment on above: Expected: 01/24/2023 (Approximate), Expires: 07/27/2023 Start: 01-24-2023 End: 07-27-2023 Iron and Iron binding capacity panel - Serum or Plasma IRON + TIBC Lab Routine Iron deficiency Expected: 01/24/2023 (Approximate), Expires: 07/27/2023 [facility] Work Phone: Comment on above: Expected: 01/24/2023 (Approximate), Expires: 07/27/2023 Start: 01-24-2023 [facility] Start: 10-28-2022 [facility] Start: 07-27-2022 End: 09-26-2022 CBC W Auto Differential panel - Blood CBC + DIFF Lab Routine Iron deficiency Expected: 07/27/2022 (Approximate), Expires: 09/26/2022 [facility] Work Phone: Comment on above: Expected: 07/27/2022 (Approximate), Expires: 09/26/2022 Start: 07-27-2022 End: 05-18-2023 Ferritin [Mass/volume] in Serum or Plasma FERRITIN BLD Lab Routine Iron deficiency Expected: 07/27/2022 (Approximate), Expires: 05/18/2023 [facility] Work Phone: Comment on above: Expected: 07/27/2022 (Approximate), Expires: 05/18/2023 Start: 07-27-2022 End: 05-18-2023 Iron and Iron binding capacity panel - Serum or Plasma IRON + TIBC Lab Routine Iron deficiency Expected: 07/27/2022 (Approximate), Expires: 05/18/2023 [facility] Work Phone: Comment on above: Expected: 07/27/2022 (Approximate), Expires: 05/18/2023 Start: 07-27-2022 End: 09-26-2022 RETIC COUNT RETIC COUNT Lab Routine Iron deficiency Expected: 07/27/2022 (Approximate), Expires: 09/26/2022 [facility] Work Phone: Comment on above: Expected: 07/27/2022 (Approximate), Expires: 09/26/2022 Start: 07-26-2022 [facility] Start: 07-11-2022 ADVANCE DIRECTIVE DISCUSSION ADVANCE DIRECTIVE DISCUSSION [facility] Start: 07-11-2022 DEPRESSION ASSESSMENT DEPRESSION ASS ESSMENT [facility] Start: 03-11-2022 Influenza vaccination INFLUENZA (#1) [facility] Start: 01-30-2022 COVID-19 VACCINE (5 - Booster for Pfizer series) COVID-19 VACCINE (5 - Booster for Pfizer series) [facility] Start: 07-11-2021 ADVANCE DIRECTIVE DISCUSSION ADVANCE DIRECTIVE DISCUSSION [facility] Start: 07-11-2021 DEPRESSION ASSESSMENT DEPRESSION ASS ESSMENT [facility] Start: 03-29-2019 Pneumococcal Vaccine : 65+ Years (2 of 2 - PCV) Pneumococcal Vaccine: 65+ Years (2 of 2 - PCV) [facility] Start: 03-29-2019 PNEUMOCOCCAL: 65+ (2 - PCV) PNEUMOCOCCAL: 65+ (2 - PCV) [facility] Start: 11-15-2017 DIABETES SCREEN DIABETES SCREEN [facility] Start: 04-23-2016 PNEUMOCOCCAL: 65+ (2 - PCV) PNEUMOCOCCAL: 65+ (2 - PCV) [facility] Start: 2003 BONE DENSITY BONE DENSITY [facility] Start: 01-22-1988 SHINGRIX VACCINE (1 of 2) SHINGRIX VACCINE (1 of 2) [facility] Start: 1957 Urine microalbumin profile DTAP,TDAP,TD (1 - Tdap) [facility] Start: 1938 COVID-19 VACCINE (#1) COVID-19 VACCI NE (#1) [facility] Comprehensive metabo lic 2000 panel - Serum or Plasma [facility] Patient Education [facility] Work Phone: XR Knee - right 4 Views [facility] Immunizations Immunization Date Immunization Notes Care Provider Fa cility 03-26-2024 influenza, high dose seasonal, preservative-free [facility] 04-26-2023 influenza, high dose seasonal, preservative-free Kvng Wadsowrth Other [facility] [employer] Other 04-26-2023 influenza virus vaccine, unspecified formulation Lorelei Hurtado DO Work Phone: [facility] 10-19-2022 COVID-19 Pfizer (bivalent) Kvng Wadsworth Other [facility] 12-05-2021 COVID-19 Pfizer Kvng mac Other [facility] 12-05-2021 COVID-19 Vaccine Pfizer - Documentation Purposes Only Knvg Wadsworth Other [facility] 04-14-2021 COVID-19 Vaccine Pfizer - Documentation Purposes Only Kvng Wadsworth Other [facility] 04-06-2021 influenza virus vaccine, split virus (incl. purified surface antigen) Kvng Wadsworth Other [facility] [employer] Other 04-06-2021 influenza virus vaccine, unspecified formulation DO Kvng Wadsworth Work Phone: [facility] 04-06-2021 influenza, high-dose , quadrivalent vaccine (FLUZONE HIGH DOSE QUADRIVALENT) Mavis Santiago MD Work Phone: [facility] 08-27-2020 COVID-19 Vaccine Pfizer - Documentation Purposes Only Kvng Wadsworth Other [facility] 08-04-2020 COVID-19 Vaccine Pfizer - Documentation Purposes Only Kvng Wadsworth Other [facility] 04-04-2020 influenza virus vaccine, split virus (incl. purified surface antigen) Kvng Wadsworth Other [facility] [employer] Other 04-04-2020 influenza virus vaccine, unspecified formulation DO Kvng Wadsworth Work Phone: [facility] 04-04-2020 influenza, high-dose , quadrivalent vaccine (FLUZONE HIGH DOSE QUADRIVALENT) Mavis Snatiago MD Work Phone: [facility] 04-18-2019 influenza, injectabl e, quadrivalent, preservative free Mavis Santiago MD Work Phone: [facility] 03-22-2019 Seasonal trivalent influenza vaccine, adjuvanted, preservative free Mavis Santiago MD Work Phone: [facility] 04-13-2018 influenza virus vaccine, split virus (incl. purified surface antigen) Kvng Wadsworth Other [employer] Other 04-13-2018 influenza virus vaccine, unspecified formulation DO Kvng Wadsworth Work Phone: [facility] 04-13-2018 Seasonal trivalent influenza vaccine, adjuvanted, preservative free Mavis Santiago MD Work Phone: [facility] 03-29-2018 pneumococcal polysaccharide vaccine, 23 valshelby Santiago MD Work Phone: [facility] 05-25-2017 Seasonal trivalent influenza vaccine, adjuvanted, preservative free Mavis Santiago MD Work Phone: [facility] 04-27-2016 influenza virus vaccine, split virus (incl. purified surface antigen) Kvng Wadsworth Other [employer] Other 04-27-2016 influenza virus vaccine, unspecified formulation DO Kvng Wadsworth Work Phone: [facility] 04-27-2016 influenza, high dose seasonal, preservative-free Mavis Santiago MD Work Phone: [facility] 04-23-2015 influenza, injectabl e, quadrivalent, preservative free Mavis Santiago MD Work Phone: [facility] 04-23-2015 pneumococcal polysaccharide vaccine, 23 valent Mavis Santiago MD Work Phone: [facility] 04-18-2015 influenza virus vaccine, split virus (incl. purified surface antigen) Kvng Wadsworth Other [employer] Other 04-18-2015 influenza virus vaccine, unspecified formulation DO Kvng Wadsworth Work Phone: [facility] 04-18-2015 pneumococcal conjuga te vaccine, 13 valent Kvng Ermelinda Other [facility] 05-21-2014 influenza, injectabl e, quadrivalent, contains preservative Adebayo Javedginalashonda Other [facility] 04-26-2014 tetanus and diphther ia toxoids, adsorbed, preservative free, for adult use (5 Lf of tetanus toxoid and 2 Lf of diphtheria toxoid) Kvng Wadsworth Other [facility] 05-09-2013 pneumococcal polysaccharide vaccine, 23 valent Kvng Ermelinda Other [facility] 05-09-2013 tetanus and diphther ia toxoids, adsorbed, preservative free, for adult use (5 Lf of tetanus toxoid and 2 Lf of diphtheria toxoid) Kvng Wadsworth Other [facility] Payers Date Payer Category Payer Self-pay [id number] 2014 Private Health Insurance [id number] 2003 Medicare [id number] 2003 Unknown 1959 Medicare [id number] 1959 Private Health Insurance [id number] 1938 Unknown [id number] 1938 Unknown [id number] 1938 Unknown [id number] 1938 Unknown [id number] 2.16.84 0.1.238159.3.579.2.593 1940 Unknown [id number] 2.16.84 0.1.199213.3.579.2.593 1938 Unknown [id number] 2.16.84 0.1.967855.3.579.2.593 1938 Unknown [id number] 2.16.84 0.1.833077.3.579.2.593 1938 Unknown [id number] 2.16.84 0.1.078475.3.579.2.593 1938 Unknown [id number] 2.16.84 0.1.856886.3.579.2.593 1938 Unknown [id number] 2.16. 840.1.858589.3.579.2.196 1938 Unknown [id number] 2.16. 840.1.543483.3.579.2.196 1938 Unknown [id number] 2.16. 840.1.787548.3.579.2.196 1938 Unknown [id number] 2.16.8 40.1.931086.3.579.2.1259 1938 Unknown [id number] 2.16.84 0.1.547194.3.579.2.125 1938 Unknown [id number] 2.16.84 0.1.708796.3.579.2.1259 1938 Unknown [id number] 2.16.84 0.1.551449.3.579.2.1259 1938 Unknown [id number] 2.16.84 0.1.176399.3.579.2.1259 1938 Unknown [id number] 2.16.84 0.1.586784.3.579.2.125 1938 Unknown [id number] 2.16.84 0.1.474263.3.579.2.1259 1938 Unknown [id number] 2.16.84 0.1.073043.3.579.2.1259 1938 Unknown [id number] 2.16.84 0.1.100567.3.579.2.1259 Medicare [id number] Unknown [id number] 2.16.8 40.1.515878.3.579.2.531 Unknown [id number] 2.16.8 40.1.823407.3.579.2.531 Social History Date Type Detail Facility Start: 01-03-2015 End: 05-27-2023 Tobacco smoking status NHIS Ex-smoker [facility] History of tobacco use Current smoker [facility] Start: 01-03-2015 End: 09-24-2024 Tobacco use and exposure Smokeless tobacco non-user [facility] Start: 05-17-2022 End: 01-01-2025 Alcohol intake Ex-drinker (finding) [facility] Start: 1940 Sex Assigned At Not on file [facility] Start: 05-08-2022 End: 05-25-2022 Exposure to SARS-CoV-2 (event) Not sure [facility] Start: 07-26-2022 End: 01-10-2025 Tobacco smoking status [facility] Never smoked tobacco (finding) [facility] Start: 1940 Sex Assigned At Female [facility] Start: 01-31-2024 End: 09-24-2024 Sex Assigned At [facility] Start: 01-31-2024 End: 09-24-2024 History of Social function [facility] Start: 10-04-2024 Sex Female (finding) [facility] NEGATED: Highlighted rowStart: NINF History of tobacco use Passive smoker [facility] Medical Equipment Procedure Code Equipment Code Equipment Origin al Text Equipment Identifier Dates Blood Sugar Diagnostic (Onetouch Ultra Test) strip Start: 03-27-2024 Blood Sugar Diagnostic (Onetouch Ultra Test) strip Start: 03-26-2024 Lancets (Onetouc h Ultrasoft 2 Lancet) 30 gauge misc Start: 03-27-2024 Lancets (Onetouc h Ultrasoft 2 Lancet) 30 gauge misc Start: 03-26-2024 Blood Sugar Diagnostic (Onetouch Ultra Test) strip Start: 03-26-2024 End: 03-26-2024 Blood Sugar Diagnostic (Onetouch Ultra Test) strip Start: 03-26-2024 Blood Sugar Diagnostic (Onetouch Ultra Test) strip Start: 03-27-2024 End: 10-04-2024 Blood Sugar Diagnostic (Onetouch Ultra Test) strip Start: 03-26-2024 End: 03-26-2024 Lancets (Onetouc h Ultrasoft 2 Lancet) 30 gauge misc Start: 03-27-2024 End: 10-04-2024 Lancets (Onetouc h Ultrasoft 2 Lancet) 30 gauge misc Start: 03-26-2024 End: 10-04-2024 Goals Date Patient Goal Desired Activity /State Clinical Notes 11-28-2019 to 01-01-2025 Cesario Cobian, DO - 01/01/2025 2:30 PM Mitchell Corona, SCREENPLAY WRITER - 06/21/2024 11:00 AM Karlee Hurtado, DO - 03/29/2024 9:00 AM Savanna Mccoy, DO - 03/20/2024 10:45 AM EDT Note Date & Type Note Facility 01-01-2025 Note Right Eye Quality was good. Scan locations included subfoveal. Progression has been stable. Findings include abnormal foveal contour. Left Eye Quality was good. Scan locations included subfoveal. Progression has been stable. Findings include abnormal foveal contour. 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 [facility] 01-01-2025 Note Right Eye Reliability was good. Progression has been stable. Foveal threshold was normal. Findings include normal observations. Left Eye Reliability was poor. Progression has worsened. Foveal threshold was normal. Findings include superior arcuate defect, superior nasal step defect, inferior nasal step defect. [facility] 01-01-2025 History of Presen t illness Narrative Images from the original note were not included. 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 Importance of smoking cessation, blood pressure control, and healthy diet were emphasized. Patient was advised to consider ultraviolet-B blocking sunglasses. In accordance with the AREDS study, appropriate antioxidant and mineral supplements were prescribed. Patient was instructed to self monitor their monocular vision (reading/Amsler Grid) at least weekly. Patient should immediately report any new onset of decreased vision or metamorphopsia. Primary open angle glaucoma (POAG) of left eye, moderate stage (CMS/HCC) Primary open angle glaucoma (POAG) of right eye, mild stage (CMS/HCC) - Primary open angle glaucoma OU - Importance of taking medications as prescribed was stressed. Patient was advised to report any inability or unwillingness to take medications or if cost is a concern. Patient must report any side effects that may develop. Patient must report any change in systemic medications as they may interact or interfere with their glaucoma medications. Patient will be dilated at least on an annual basis for optic nerve evaluation and will likely have an automated visual field examination at least once a year. It was explained to the patient that they might require additional treatment for intraocular pressure control such as laser therapy or surgical intervention - Cont. Latanoprost both eyes (OU) at bedtime. Bilateral posterior capsular opacification - PCO OU: (Posterior Capsule Opacification) Can be observed without intervention if PCO is not visually significant. Nd:YAG laser capsulotomy may be considered if impairment of vision rises to a level that dose not meet the patient's functional needs or interferes with activities of daily living. Risks, benefits and alternatives to the procedure will be reviewed. If the patient has undergone Nd:YAG laser capsulotomy, they are to notify their store specialist promptly if they have a significant change in symptoms, such as flashes of light (photopsia), an increase in floaters, loss of visual field or decrease in visual acuity. Dry eyes - Dry Eyes OU -- Environmental changes to minimize dryness and exposure and the use of artificial tears were recommended. Ptosis of both eyelids - Condition d/w pt. She has received Levator advancement (?) from Dr. Olvera however this has failed. - Pt OK to update glasses at this time if wished. Several things could be done to improve upon vision however would start her. Return to Dr. Young For glasses update. documented in this encounter [facility] 06-21-2024 History of Presen t illness Narrative Images from the original note were not included. Chief Complaint Patient presents with Diplopia Subjective Tangela Moss is a 84 y.o. female. History of Present Illness The patient presents today for follow up for double vision and left eyelid ptosis. She is accompanied by her daughter, Simona. At the prior appointment, mestinon and prednisone were discontinued. The patient has stopped these medications and denies any worsening of symptoms. Her vision is subjectively unchanged since the prior neurology appointment. The patient reports diagonal double vision with onset multiple years ago. She believes this is worse when looking at objects in her near vision but is ultimately unsure. The patient states her double vision will temporarily resolve when she covers one eye but returns when both eyes are open. She follows with ophthalmology and has prisms in her glasses, but symptoms persist. She reports drooping of the left upper eyelid with onset years ago. She did have surgery for this in August 2022. She does not believe her symptoms are fatigable. The patient also reports occasional headaches which she believes are weather-related. She otherwise denies any significant headaches or jaw pain. She denies nausea, vomiting, or tinnitus. She denies weakness or unilateral numbness/paresthesias. She does not drive. She was recently evaluated by her eye doctor in [place], [place], and was told her symptoms could be due to a muscle problem. She and her daughter deny any further new concerns. Review of Systems Constitutional: Negative for appetite change, chills, fatigue, fever and unexpected weight change. HENT: Negative for trouble swallowing and voice change. Negative for jaw pain Eyes: Positive for double vision and left eyelid ptosis. Negative for visual change or loss of vision Respiratory: Negative for cough, shortness of breath and wheezing. Cardiovascular: Negative for chest pain and palpitations. Gastrointestinal: Negative for abdominal pain, blood in stool, nausea and vomiting. Musculoskeletal: Positive for arthralgias and back pain. Negative for gait problem and myalgias. Neurological: Negative for dizziness, tremors, seizures, syncope, facial asymmetry, speech difficulty, weakness (extremity), light-headedness, numbness and headaches. Psychiatric/Behavioral: Negative for confusion, hallucinations and suicidal ideas. The patient is not nervous/anxious. Home Medication List acetaminophen 500 MG tablet; Commonly known as: Tylenol amLODIPine 5 MG tablet; Commonly known as: Norvasc atenolol 25 MG tablet; Commonly known as: Tenormin cholecalciferol 250 MCG (99588 UT) capsule; Commonly known as: Vitamin D-3 diclofenac 75 MG EC tablet; Commonly known as: Voltaren Glucosamine 500 MG capsule levothyroxine 112 MCG tablet; Commonly known as: Synthroid, Levoxyl Multi Vitamin Daily tablet OMEGA 3 500 PO pantoprazole 40 MG EC tablet; Commonly known as: ProtoNix Pepcid 40 MG tablet; Generic drug: famotidine Red Yeast Rice 600 MG capsule Super Calcium 1500 (600 Ca) MG tablet; Generic drug: calcium carbonate traMADol 50 MG tablet; Commonly known as: Ultram triamcinolone 0.1 % cream; Commonly known as: Kenalog Past Medical History: Diagnosis Date Anemia Arthritis Cataracts, bilateral Hyperlipidemia (CMS/HCC) Hypertension (CMS/HCC) Migraines (CMS/HCC) Osteoporosis (CMS/HCC) Thyroid disease (CMS/HCC) Past Surgical History: Procedure Laterality Date APPENDECTOMY 1943 HYSTERECTOMY 1988 LUMBAR SPINE SURGERY 1997 L4 NECK SURGERY 1982 C4 TOTAL KNEE ARTHROPLASTY Right 07/16/2019 Dr. Mccoy No family history on file. Social History Tobacco Use Smoking status: Never Smokeless tobacco: Never Substance Use Topics Alcohol use: Not Currently Allergies: Cephalosporins, Penicillins, Povidone-iodine, Pregabalin, Statins, Sulfa antibiotics, Nitrofurantoin macrocrystal, and Vancomycin Vitals: 06/21/24 1058 BP: 116/62 Pulse: 56 SpO2: 96% Body mass index is 27.15 kg/m . weight: 139 lb Neurologic exam: Mental status and general appearance: Awake and alert with unlabored respirations. Oriented to person, place, and time. Recent and remote memory are intact. Speech is clear and fluent without aphasia. Speech is non-dysarthric. Attention and concentration are normal. Fund of knowledge is appropriate for level of education. Pleasant. Cranial nerves: CN II: Visual acuity is normal. Visual venegas full to confrontation. CN III, IV, : Pupils are equal, round, and reactive to light. Ptosis of the left upper eyelid. No significant ptosis of the right upper eyelid. 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 CN V: Facial sensation is normal. CN VII: Full and symmetric facial movement. CN VIII: Hearing is normal to finger rub bilaterally. CN IX and X: Palate elevates symmetrically. CN XI: Shoulder shrug is normal bilaterally. CN XII: Tongue is midline without atrophy or fasciculation. Motor: RUE strength deltoid , biceps , triceps , wrist extensors , wrist flexor , and sand screener operator strength 5/5. LUE strength deltoid , biceps , triceps , wrist extensors , wrist flexor , and sand screener operator strength 5/5. RLE strength iliopsoas, quadriceps, tibialis anterior, and plantar flexion strength 5/5. LLE strength iliopsoas, quadriceps, tibialis anterior, and plantar flexion strength 5/5. Tone and bulk are normal. No weakness of the neck flexors or extensors is appreciated. Sensory: Sensation is intact to light touch throughout all four extremities. Sensation is intact to temperature in all extremities. Reflexes: RUE biceps reflex 1+ , brachioradialis reflex 1+. LUE biceps reflex 1+ , brachioradialis reflex 1+. RLE knee reflex 1+. LLE knee reflex 1+. Coordination: Ppmkbf-ca-qpnj testing normal. Rapid alternating movements are normal. Gait: Utilizing cane. Review and summary of old records: CT of the chest with contrast: No evidence of thymoma Acetylcholine binding, blocking and modulating antibodies and MSK: negative. MRI of the brain on 10/14/2023 at [facility]: No acute infarction. Chronic microvascular ischemic disease and atrophy which is stable. No significant change when compared to imaging on 05/30/2023. MR angiogram of the head without contrast on 10/14/2023: Unremarkable. 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 She states these have been present for many years without progressive worsening, and her daughter confirms this. MRI of the brain on 10/14/2023 did not identify a cause for the patient's presentation, and MR angiogram of the head was unremarkable without mention of aneurysm. The patient denies any definitive shortness of breath or difficulty breathing, and there is no weakness of neck flexor or extensor muscles on clinical exam to suggest myasthenia gravis (MG). Furthermore, antibody laboratory evaluation for MG was negative, and I find seronegative MG highly unlikely given the lack of improvement with Mestinon and prednisone previously. I find giant cell arteritis unlikely, as the patient denies jaw pain, scalp tenderness, fever, loss of appetite, unintended weight loss, or persistent headaches. Etiology for the patient's presentation is currently unclear, though I believe microvascular causes such as hypertension and hyperlipidemia may be contributory. PLAN: - I did recommend further evaluation to assess for possible causes of the patient's sixth nerve palsy and ptosis. Specifically, laboratory evaluation including hemoglobin A1c, CBC, CRP, ESR, RPR, and thiamine level was recommended. The patient and her daughter politely refused labs, understanding that underlying pathology may be missed without further work up, and this could be debilitating. They do not wish to pursue any further work up at this time - I advised the patient to follow up closely with her primary care provider for optimal management of blood pressure, cholesterol levels, and thyroid dysfunction in the event that these are contributory to her symptoms - I also recommended close follow-up with ophthalmology for further evaluation and management - I recommended patching of one eye to alleviate the binocular diplopia - I recommended no driving - I educated the patient and her daughter on signs and symptoms of myasthenic crisis. We discussed the need for prompt evaluation in the emergency department should the patient develop any of these (especially shortness of breath) in the future. They verbalize understanding Service was performed by COLLEEN Acosta in collaboration with Dr. Hurtado who is present in the office today. Diagnosis and treatment options discussed in detail. All questions answered. The patient and her daughter verbalize understanding and are agreeable to the plan. Discussion in layman's terms. As the patient and her daughter do not wish to pursue any further work up at this time, I believe PRN follow-up is okay. I advised the patient and her daughter to notify our office if symptoms worsen or if new symptoms or concerns arise in the future. I also advised him to notify our office if they decide they would like to proceed with laboratory evaluation or further work up. They verbalized understanding. Alyssa Corona NP [facility] documented in this encounter [facility] 03-29-2024 History of Presen t illness Narrative Images from the original note were not included. Chief complaint: Ocular abnormality. Subjective Tangela Moss, 84 y.o., female Patient presents for a f/u to double vision. Patient daughter is present at visit. Patient is not using a cane to ambulate today. States that since starting [place] [employer] her pain in her back has [...] (CMS/HCC) 2023 Osteoporosis (CMS/HCC) Thyroid disease (CMS/HCC) Past Surgical History: Procedure Laterality Date APPENDECTOMY 1943 HYSTERECTOMY 1988 LUMBAR SPINE SURGERY 1997 L4 NECK SURGERY 1982 C4 TOTAL KNEE [...] reflexes are 1+ and symmetric throughout. Coordination: Ufydtf-yg-mcic testing and rapid alternating movements are normal Gait: Patient ambulates with a cane. Review and summary of old records: CT of the chest with contrast: No evidence of thymoma Acetylcholine binding, blocking and modulating antibodies and MSK: negative. MRI of the brain on 10/14/2023 at [facility]: No acute infarction. Chronic microvascular ischemic disease [...] and return instructions documented in this encounter [facility] 03-20-2024 History of Presen t illness Narrative Images from the original note were not included. HISTORY OF PRESENT ILLNESS: Tangela Moss is an 84 y.o. @ female. Here for lumbar spine MRI results Here for lumbar MRI results [facility] 8 weeks s/p MDP (per [facility] 01/24), no relief She has been having [...] (twelve) hours cholecalciferol (Vitamin D-3) 250 MCG (03643 UT) capsule as directed Orally diclofenac (Voltaren) [...] time each day at the same time [place]-3 Fatty Acids (OMEGA 3 500 PO) Take [...] (CMS/HCC) Hypertension (CMS/HCC) Migraines (CMS/HCC) Myasthenia gravis ([facility]) 2023 Osteoporosis ([facility]) Thyroid disease ([facility]) ALLERGIES: Allergies Allergen Reactions Cephalosporins Other Reaction(s): [...] MRI of the lumbar spine from the [facility]. There is scoliosis. There is marked disc [...] Mccoy/jacinto Mccoy D.O. documented in this encounter [facility] 03-13-2024 Telephone encount er Note Pt called and stated she had her MRI done of L-spine at [facility] on 03/02/24 and she has not heard from anyone on the results, and also she stated when she was seen last you mentioned sending her to pain mgmt and she has not heard about scheduling that either? Please advise. I called [facility] for the results? Does she need follow up with Dr Mccoy? [facility] 03-13-2024 Miscellaneous Notes Formattin g of this note might be different from the original. Pt called and stated she had her MRI done of L-spine at [facility] on 03/02/24 and she has not heard from anyone on the results, and also she stated when she was seen last you mentioned sending her to pain mgmt and she has not heard about scheduling that either? Please advise. I called [facility] for the results? Does she need follow up with Dr Mccoy? documented in this encounter [facility] 03-01-2024 History of Presen t illness Narrative [...] History: Procedure Laterality Date APPENDECTOMY 1943 HYSTERECTOMY 1989 LUMBAR SPINE SURGERY 1997 L4 NECK SURGERY 1982 C4 TOTAL KNEE [...] reflexes are 1+ and symmetric throughout. Coordination: Uwitqq-tl-rpnm testing and rapid alternating movements are normal Gait: Patient ambulates with a cane. Review and summary of old records: Acetylcholine binding, blocking and modulating antibodies and MSK: negative. MRI of the brain on 10/14/2023 at [facility]: No acute infarction. Chronic microvascular ischemic disease [...] thymoma I did consider an evaluation at [facility] with single fiber EMG. The patient [...] and return instructions documented in this encounter [facility] 08-10-2023 Evaluation note Encounter Date Diagnosis Assessment Notes Jul, Epigastric pain (ICD-10 - R10.13) Jul, Constipation (ICD-10 - K59.00) Oct, Nausea (ICD-10 - R11.0) Nausea [facility] 12-11-2023 Evaluation note* Encounter Date Diagnosis Assessment Notes Treatment Notes Treatment Clinical Notes Jun, Lumbar spondylosis (ICD-10 - M47.816) [facility] 11-21-2023 Evaluation note* Encounter Date Diagnosis Assessment Notes Treatment Notes Treatment Clinical Notes May, Claustrophobia (ICD-10 - F40.240) [facility] 11-17-2023 Evaluation note* Encounter Date Diagnosis [...] May, Other specified hypothyroidism (ICD-10 - E03.8) [facility] 11-10-2023 Evaluation note* Encounter Date Diagnosis Assessment Notes Treatment Notes Treatment Clinical Notes May, Lumbar spondylosis (ICD-10 - M47.816) [facility] 09-13-2023 Evaluation note* Encounter Date Diagnosis Assessment Notes Treatment Notes Treatment Clinical Notes Mar, Chronic superficial gastritis with bleeding (ICD-10 - K29.31) [facility] 08-25-2023 Evaluation note* Encounter Date Diagnosis Assessment Notes Treatment Notes Treatment Clinical Notes Feb, Allergic contact dermatitis due to plants, except food (ICD-10 - L23.7) Cool compresses, topical steroids and begin Prednisone. _update on Feb, Cellulitis of left upper extremity (ICD-10 - L03.114) Elevate and begin antibiotics, update on Tuesday [facility] 08-15-2023 Evaluation note* Encounter Date Diagnosis [...] exercise for 30 minutes, 3-5 times weekly. [facility] 08-14-2023 Evaluation note* Encounter Date Diagnosis Assessment Notes Treatment Notes Treatment Clinical Notes Feb, Lumbar spondylosis (ICD-10 - M47.816) [facility] 06-20-2023 Evaluation note* Encounter Date Diagnosis Assessment Notes Treatment Notes Treatment Clinical Notes Dec, Autoimmune thyroiditis (ICD-10 - E06.3) [facility] 05-12-2023 Evaluation note* Encounter Date Diagnosis Assessment Notes Treatment Notes Treatment Clinical Notes November, Lumbar spondylosis (ICD-10 - M47.816) [facility] 05-11-2023 Evaluation note* Encounter Date Diagnosis [...] E03.8) November, Lumbar spondylosis (ICD-10 - M47.816) [facility]ED[facility]: XR HIP LT 2 3V [...] lower lumbar spine. Electronically authenticated by: ANTHONY ABEZ Date: 2022-10-20 15:40[facility]04-04-2023 Evaluation note* Encounter Date Diagnosis Assessment [...] mammogram for breast cancer (ICD-10 - Z12.31) [facility] 01-17-2023 NoteHNO ID: [id number] Author: Mavis Santiago MD Service: ? Author Type: Physician Type: Progress Notes Filed: 07/27/2022 2:56 PM Note Text: PATIENT NAME: Tangela L [facility] NO.: [id number] ATTENDING PHYSICIAN: Mavis Santiago MD DATE OF [...] Status 07/27/2022 18.0 (H) (more content not included)...[facility] 07-27-2022 History of Present illness Narrative* Mavis Santiago MD - 07/27/2022 2:48 PM EST PATIENT NAME: Tangela Moss [facility] NO.: [id number] ATTENDING PHYSICIAN: Mavis Santiago MD DATE OF [...] 07/27/2022 3.25 1.00 - 4.00 k/uL Final [place]% Date Value Ref Range Status 07/27/2022 14.0 % Final Abs [place] Date Value Ref Range Status 07/27/2022 1.25 [...] do not hesitate to contact me at [phone]. Mavis Santiago MD Hematology/Medical Oncology [facility] Keri spent a total of 20 minutes on the date of the service which included preparing to see the patient, [id number] patient care, completing clinical documentation, obtaining and/or reviewing separately obtained history, performing a medically appropriate examination, counseling and educating the pat ient/family/caregiver, and ordering medications, tests, or procedures. CC: Kvng Wadsworth DO [facility] [facility]* Encounter Date Diagnosis Assessment Notes Treatment Notes Treatment Clinical Notes Jul, Acute gastric ulcer without hemorrhage or perforation (ICD-10 - K25.3) [facility]* Encounter Date Diagnosis [...] Healty diet, keep active, consistent sleep routine [facility] Other 11-23-2022 NoteHNO ID: [id number] Author: MONY Mart Service: ? Author Type: Feed Adviser Type: Progress Notes Filed: 06/02/2022 3:17 PM Note Text: Patient appears on the First Time Treatment List for a non-oncology treatment. No psychosocial assessment is indicated. KAYLEY Mart-[facility]11-23-2022 History of Present illness Narrative* MONY Mart - 06/02/2022 3:16 PM EST Patient appears on the First Time Treatment List for a non-oncology treatment. No psychosocial assessment is indicated. KAYLEY Mart-[place] documented [facility] Miscellaneous Notes* Telephone Encounter - Mohit Lo [facility] - 05/25/2022 3:32 PM EST 1st report of treatment-non oncology regimen ([employer]) Patient holds Medicare coverage. No FA available at this time. documented in [facility] encounter[facility]-08-2022 NoteHNO ID: [id number] Author: Mavis Santiago MD Service: ? Author Type: Physician Type: Progress Notes Filed: 05/18/2022 4:08 PM Note Text: PATIENT NAME: Tangela Moss CLINIC NO.: [id number] ATTENDING PHYSICIAN: Mavis Santiago MD DATE OF [...] Final Lymph% Date Va (more content not included)...[facility]11-08-2022 History of Present illness Narrative* Mavis Santiago MD - 05/18/2022 3:51 PM EST PATIENT NAME: Tangela Moss [facility] NO.: [id number] ATTENDING PHYSICIAN: Mavis Santiago MD DATE OF [...] 05/11/2018 2.74 1.00 - 4.00 k/uL Final [place]% Date Value Ref Range Status 05/11/2018 12.1 % Final Abs [place] Date Value Ref Range Status 05/11/2018 1.12 [...] do not hesitate to contact me at [phone]. Mavis Santiago MD Hematology/Medical Oncology [facility] I spent a total of 30 minutes on the date of the service which included preparing to see the patient, ttic-kk-gmxr patient care, completing clinical documentation, obtaining and/or reviewing separately obtained history, performing a medically appropriate examination, counseling and educating the pat ient/family/caregiver, and ordering medications, tests, or procedures. Medical Decision Making: Medical Decision Making Level: 1 - N/A CC: Kvng Wadsworth DO documented in this encounterOur [facility]11-19-2020 Progress note Author Nicho Salcedo [facility] May 29, 2020 11:30am Note Date/Time May 29, 2020 11:29am [facility] [place] [address] Hem/Onc Follow Up Note - OP Signed Patient: Tangela Moss MR#: [id number] : 1940 Acct:[id number] Age/Sex: 80 / F Type: REG RCR [...] Rash Penicillins Allergy (Verified 11/28/19 10:23) Hives Tgjzhfj-Gjh-Lkm Reductase Inhibitor Allergy (Verified 11/28/19 10:23) Unknown [...] Neut % (Auto) 50.8,Lymph % (Auto) 30.1, [place] % (Auto) 14.9, Eos % (Auto) 3.3, Baso % (Auto) 0.9, Neut # (Auto) 4.4, Lymph # (Auto) 2.6, [place] # (Auto) 1.3 H, Eos # (Auto) [...] for coordination of care (as documented) and yxua-xm-yukl counseling of patient and/or family. Dictated By: Nicho Salcedo MD DD/ [id number] Signed By: <Electronically signed by MD Nicho Salcedo> 05/29/20 1134 [facility] Work Phone: 1(431) 598-625105-20-2020 Progress note Author Nicho Salcedo [facility] November 28, 2019 12:52pm Note Date/Time November 28, 2019 12:50 pm [facility] [place] [address] Hem/Onc Follow Up Note - OP Signed Patient: Tangela Moss MR#: [id number] : 1940 Acct:[id number] Age/Sex: 79 / F Type: REG RCR [...] Rash Penicillins Allergy (Verified 11/28/19 10:23) Hives Gvbhmrk-Fte-Iww Reductase Inhibitor Allergy (Verified 11/28/19 10:23) Unknown [...] Neut % (Auto) 49.9,Lymph % (Auto) 27.3, [place] % (Auto) 15.1, Eos % (Auto) 6.5, Baso % (Auto) 1.2, Neut # (Auto) 4.3, Lymph # (Auto) 2.4, [place] # (Auto) 1.3 H, Eos # (Auto) [...] for coordination of care (as documented) and gqwr-bm-rlcr counseling of patient and/or family. Dictated By: Nicho Salcedo MD DD/ 1249 Signed By: <Electronically signed by MD Nicho Salcedo> 11/28/19 1252 [facility] Work Phone: Evaluation note* Diagnosis Iron deficiency- Primary Iron deficiency anemia, unspecified [facility] Diagnosis Iron deficiency anemia, unspecified iron deficiency anemia type- Primary Iron deficiency Iron deficiency anemia, unspecified [facility] Diagnosis Iron deficiency- Primary Iron deficiency anemia, unspecified documented in this encounter [facility] HospitalEvaluation noteNo assessment information availableJoint [facility] Work Phone: Evaluation noteNo InformationNort Conver[employer] Other Evaluation note* Diagnosis Onset Date Resolution [...] acute Medicare annual wellness visit, subsequent noneactive [facility] Work Phone: Evaluation note* Diagnosis Myasthenia gravis (CMS/HCC)- Primary Myasthenia gravis without exacerbation Ptosis of left eyelid Unspecified ptosis of eyelid Left abducens nerve palsy documented in this encounter [facility]* Diagnosis DDD (degenerative disc disease), lumbar- Primary Degeneration of lumbar or lumbosacral intervertebral disc documented in this encounter [facility]* Diagnosis Chronic low back pain, unspecified back pain laterality, unspecified whether sciatica present- Primary DDD (degenerative disc disease), lumbar Degeneration of lumbar or lumbosacral intervertebral disc Spinal stenosis of lumbar region, unspecified whether neurogenic claudication present documented in this encounter [facility] HealthcareEvaluation note* Diagnosis Ptosis of left eyelid- Primary Unspecified ptosis of eyelid Left abducens nerve palsy documented in this encounter [facility] HealthcareEvaluation note* Diagnosis Ptosis of left eyelid- Primary Unspecified ptosis of eyelid Left abducens nerve palsy documented in this encounter [facility] HealthcareEvaluation note* Diagnosis Onset Date Resolution Status Admit Date Age-related osteoporosis wit hout current pathological fracture acute [facility] 2024 10:23am Anemia acute October 04 10:23am Ascending aorta dilatation acute October 04, 2024 10:23am Chronic venous insufficiency acute October 04, 2024 10:23am Gastroesophageal reflux dise ase 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 hemorrhage acute M [facility] 2024 10:23am Hypercholesterolemia acute Trino h 2024 10:23am Lumbar spondylosis acute October 04, 2024 10:23am Paralytic strabismus, sixth or abducens nerve palsy acute October 04, 2024 10:23am Partial left third nerve palsy acute October 04, 2024 10:23am Primary hypertension acute Trino 2024 10:23am Stage 3a chronic kidney disease acut e October 04, 2024 10:23am [facility] Work Phone: Evaluation note* Diagnosis Primary open angle glaucoma (POAG) of left eye, moderate stage- Primary Primary open angle glaucoma (POAG) of right eye, mild stage 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 documented in this encounter [facility]* Diagnosis Onset Date Resolution Status Admit Date Age-related osteoporosis wit hout current pathological fracture acute 2024 9:54am Ascending aorta dilatation acute January 10, 2025 9:54am Chronic venous insufficiency acute January 10, 2025 9:54am Gastroesophageal reflux dise ase 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 hemorrhage acute January 10, 2025 9:54am Hypercholesterolemia acute January 10, 2025 9:54am Hypothyroidism acute January 10, 2025 9:54am Lumbar spondylosis acute January 102024 9:54am Mammogram declined acute January 102024 9:54am Paralytic strabismus, sixth or abducens nerve palsy acute January 10, 2 025 9:54am Partial left third nerve palsy acute January 10, 2025 9:54am Primary hypertension acute January 10, 2025 9:54am Stage 3a chronic kidney disease acut e January 10, 2025 9:54am Hip pain, right deleted January 10, 2025 9:54am Knee pain, right deleted January 9:54am Medicare annual wellness vis it, subsequent noneactive January 10, 2025 9:54am [facility] Work Phone: History and physical note Author Jeyson Diaz [facility] July 26, 2022 8:09am Note Date/Time July 26, 2022 8 :09am [facility] [address] [place] [address] Gastroenterology H&P Signed Patient: Tangela Moss MR#: [id number] : 1940 Acct:[id number] Age/Sex: 82 / F Adm Date: 3 Loc: Room: Type: [facility] Attending Dr: Jeyson Diaz MD Copies [...] <Electronically signed by Jeyson Diaz MD> 07/26/22808 [facility] Work Phone: History and physical note Author Jeyson Diaz [facility] October 28, 2022 1:13pm Note Date/Time October 28, 2022 1:1 3pm [facility] [address] [place] [address] Gastroenterology H&P Signed Patient: Tangela Moss MR#: [id number] : 1940 Acct:[id number] Age/Sex: 82 / F Adm Date: 3 Loc: Room: Type: [facility] Attending Dr: Jeyson Diaz MD Copies to: Kvng Wadsworth,DO Jeyson Diaz MD~ Date of Service: 10/28/2022 [...] signed by Jeyson Diaz MD> 10/28/22 1313 [facility] Work Phone: History general Narrative - Reported* Type Description Date Medical History Cervical spondylosis Medical History Vitamin D deficiency Medical History Hyponatremia Medical History [place] Medical History Fatigue Medical History Depression screening Medical History Encounter for screening breast e xamination Medical History Leukocytosis Medical History Chronic [id number] syndrome Medical History Essential hypertension Medical History [...] History colonoscopy 07/26/22 Hospitalization History see above [facility] Other History general Narrative - Reported* Type Description Date Medical History Cervical spondylosis Medical History Vitamin D deficiency Medical History Hyponatremia Medical History [place] Medical History Fatigue Medical History Depression screening Medical History Encounter for screening breast e xamination Medical History Leukocytosis Medical History Chronic [id number] syndrome Medical History Essential hypertension Medical History [...] w/ biopsy 10/2022 Hospitalization History see above [facility] Other History general Narrative - Reported* Type Description Date Medical History Cervical spondylosis Medical History Vitamin D deficiency Medical History Hyponatremia Medical History [place] Medical History Fatigue Medical History Depression screening Medical History Encounter for screening breast e xamination Medical History Leukocytosis Medical History Chronic [id number] syndrome Medical History Essential hypertension Medical History [...] History EGD 01/2023 Hospitalization History see above [facility] Other Hospital Discharge instructions Additional Instructions DISCHARGE [...] NOT operate machinery such as power tools, [employer] mowers, [employer], sewing machines, etc. for 24 hours. - [...] NOT operate machinery such as power tools, [employer] mowers, snow blowers, sewing machines, etc. for [...] -Follow up with PCP. - Office number [phone]. [facility] Work Phone: Hospital Discharge instructions [...] NOT operate machinery such as power tools, [employer] mowers, snow blowers, sewing machines, etc. for [...] problems. -Follow up with PCP. -Office number [phone]. [facility] Work Phone: Hospital Discharge instructions [...] problems. -Follow up with PCP. -Office number [phone]. [facility] Work Phone: Reason for referral (narrative)* Consultation (Routine) - Authorized Specialty Diagnoses / Procedures Referred By Jane t Referred To Contact Pain Medicine Diagnoses Spinal stenosis of lumbar region, unspecified whether neurogenic claudication present Procedures [place] OFFICE/OUTPATIENT [facility] 60 MINUTES Nicho Mccoy DO [address] [address] Ozzy Winters MD [address] [place] [address], [address], [place] [address] Referral ID Status Reason Start Date Expiration Date Visits Requested Visits Authorized [id number] Authorized Consult and Treat 03/20/2024 09/16/2024 1 1 FREDO Mendoza for referral (narrative)No reason for referral information availableThe [facility] Work Phone: Summary Purpose Family History Relationship [...] kidney disease Medicare annual wellness visit, subsequent Chief Complaint Admit Date 3 mo f/u-HIGH RISK October 04, 2024 10: 23am Reason for Visit Admit Date Age-related osteoporosis wit hout current pathological fracture October 04, 2024 10:23am Anemia October 04, 2024 10: 23am Ascending aorta dilatation October 04, 2 025 10:23am Chronic venous insufficiency October 04, 2024 10:23am Gastroesophageal reflux dise ase 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 hemorrhage October 04, 2024 10:23am Hypercholesterolemia October 04, 2024 10 :23am Lumbar spondylosis October 04, 2024 10: 23am Paralytic strabismus, sixth or abducens nerve palsy October 04, 2024 10:23am Partial left third nerve palsy September 10:23am Primary hypertension October 04, 2024 10 :23am Stage 3a chronic kidney disease October 042024 10:23am Chief Complaint Admit Date wellness January 10, 2025 9:54a m Reason for Visit Admit Date Age-related osteoporosis without current pathological fracture January 10, 2025 9:54am Ascending aorta dilatation January 10 9:54am Chronic venous insufficiency January 10 025 9:54am Gastroesophageal reflux dise ase 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 hemorrhage January 10, 2025 9:54am Hypercholesterolemia January 10, 2025 9:54 am Hypothyroidism January 10, 2025 9:54a m Lumbar spondylosis January 10, 2025 9:54a m Mammogram declined January 10, 2025 9:54a m Paralytic strabismus, sixth or abducens nerve palsy January 10, 2025 9:54am Partial left third nerve palsy January 10, 2025 9:54am Primary hypertension January 10, 2025 9:54 am Stage 3a chronic kidney disease January 9:54am Hip pain, right January 10, 2025 9:54a m Knee pain, right January 10, 2025 9:54a m Medicare annual wellness visit, subseque nt January 10, 2025 9:54am Reason for Referral Specialty Diagnoses / Procedures Referred By Jane t Referred To Contact Diagnoses Myasthenia gravis (CMS/HCC) 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 Procedures CT chest w IV contrast Lorelei Hurtado DO [address] [place] [address] [facility] Scheduling [address] [place] [address] Referral ID Status Reason Start Date Expiration Date V isits Requested Visits Authorized [id number] Pending Review 03/01/2024 08/28/2024 1 1 Additional Source Comments INFORMATION SOURCE (unrecogn ized section and content) DATE CREATED AUTHOR 01/06/2018 Bethany Hubbard rafa DATE CREATED AUTHOR AUTHOR'S ORGANIZ ATION 08/04/2022 [facility] DATE CREATED AUTHOR AUTHOR'S ORGANIZ ATION 11/10/2022 [facility] DATE CREATED AUTHOR AUTHOR'S ORGANIZ ATION 03/25/2024 [facility] DATE CREATED AUTHOR AUTHOR'S ORGANIZ ATION 05/09/2024 [facility] DATE CREATED AUTHOR AUTHOR'S ORGANIZ ATION 01/02/2025 [facility] EPIC Source Comments (unrecognize d section and content) In the event this informatio n is protected by the Federal Confidentiality of Alcohol and Drug Abuse Patient Records regulations: The Federal rules restrict any use of the information to criminally investigate or prosecute any alcohol or drug abuse patient.[facility] HospitalIn the event this information is protected by the Federal Confidentiality of Alcohol and Drug Abuse Patient Records regulations: The Federal rules restrict any use of the information to criminally investigate or prosecute any alcohol or drug abuse patient.[facility] HospitalIn the event this information is protected by the Federal Confidentiality of Alcohol and Drug Abuse Patient Records regulations: The Federal rules restrict any use of the information to criminally investigate or prosecute any alcohol or drug abuse patient.[facility] HospitalIn the event this information is protected by the Federal Confidentiality of Alcohol and Drug Abuse Patient Records regulations: The Federal rules restrict any use of the information to criminally investigate or prosecute any alcohol or drug abuse patient.[facility] HospitalIn the event this information is protected by the Federal Confidentiality of Alcohol and Drug Abuse Patient Records regulations: The Federal rules restrict any use of the information to criminally investigate or prosecute any alcohol or drug abuse patient.[facility] HospitalIn the event this information is protected by the Federal Confidentiality of Alcohol and Drug Abuse Patient Records regulations: The Federal rules restrict any use of the information to criminally investigate or prosecute any alcohol or drug abuse patient.[facility] Care Teams (unrecognized sec tion and content) Team Status: Active Member Role Status Dates Kvng Wadsworth DO Primary Care Provider Active Team Status: Active Member Role Status Dates Kvng Wadsworth DO Primary Care Provider Active Start: November 01, 2024 Kvng Wadsworth DO Attending Provider Active Sta rt: November 01, 2024 Team Status: Inactive Member Role Status Dates Kvng Wadsworth DO Primary Care Provider Active Start: January 10, 2025 End: January 10, 2025 Kvng Wadsworth DO Attending Provider Active Sta rt: January 10, 2025 End: January 10, 2025 Team Status: Active Member Role Status Dates Kvng Wadsworth DO Primary Care Provider Active Team Status: Inactive Member Role Status Dates Kvng Wadsworth DO Primary Care Provider Active Jeyson Diaz MD Attending Provider Active Rebar Worker Relationship Specialty Start Date End Date Kvng Wadsworth, DO PCP - General Internal Medicine 11/14/14 Rebar Worker Relationship Specialty Start Date End Date Kvng Wadsworth DO PCP - General Internal Medicine 11/14/14 Rebar Worker Relationship Specialty Start Date End Date Kvng Wadsworth DO PCP - General Internal Medicine 11/14/14 Rebar Worker Relationship Specialty Start Date End Date Kvng Wadsworth, DO PCP - General Internal Medicine 11/14/14 Rebar Worker Relationship Specialty Start Date End Date Kvng Wadsworth, DO PCP - General Internal Medicine 11/14/14 Rebar Worker Relationship Specialty Start Date End Date Kvng [...] March 16, 2024 End: March 16, 2024 Rebar Worker Relationship Specialty Start Date End Date Kvng Wadsworth MD [address] [facility] [place] [address] PCP - General Internal Medicine 01/25/24 Rebar Worker Relationship Specialty Start Date End Date Kvng Wadsworth MD [address] [facility] [place] [phone] PCP - General Internal Medicine 01/25/24 Rebar Worker Relationship Specialty Start Date End Date Kvng Wadsworth MD [address] [place] [facility] [place] [phone] PCP - General Internal Medicine 01/25/24 Rebar Worker Relationship Specialty Start Date End Date Kvng Wadsworth MD [address] [facility] [place] [phone] PCP - General Internal Medicine 01/25/24 Rebar Worker Relationship Specialty Start Date End Date Kvng Wadsworth MD [address] [facility] [place] [phone] PCP - General Internal Medicine 01/25/24 Rebar Worker Relationship Specialty Start Date End Date Kvng Wadsworth MD [address] [facility] [place] [address] PCP - General Internal Medicine 01/25/24 Rebar Worker Relationship Specialty Start Date End Date Kvng Wadsworth MD [address] [place] [address] PCP - General Internal Medicine 01/25/24 Rebar Worker Relationship Specialty Start Date End Date Kvng Wadsworth MD [address] [place] [phone] PCP - General Internal Medicine 01/25/24 Rebar Worker Relationship Specialty Start Date End Date Kvng Wadsworth MD [address] [place] [phone] PCP - General Internal Medicine 01/25/24 Team Status: Inactive Member Role Status Dates Kvng Wadsworth DO Primary Care Provide r, Attending Provider Active Start: October 04, 2024 End: October 04, 2024 Rebar Worker Relationship Specialty Start Date End Date Kvng Wadsworth DO PCP - General Internal Medicine 01/25/24 Rebar Worker Relationship Specialty Start Date End Date Kvng Wadsworth DO PCP - General Internal Medicine 01/25/24 Team Status: Active Member Role Status Dates Kvng Wadsworth DO Primary Care Provider Active Start: November 01, 2024 Kvng Wadsworth DO Attending Provider Active Sta rt: November 01, 2024 Team Status: Inactive Member Role Status Dates Kvng Wadsworth DO Primary Care Provider Active Start: January 10, 2025 End: January 10, 2025 Kvng Wadsworth DO Attending Provider Active Sta rt: January 10, 2025 End: January 10, 2025 Reason for Visit (unrecogniz ed section and content) Reason Comments Anemia Transition of care. Ref back by Dr. Wadsworth Reason Comments Benefits Investigation Specialty Diagnoses / Procedures Referred By Contsuraj t Referred To Contact Diagnoses Iron deficiency anemia, unspecified iron deficiency anemia type Iron deficiency Mavis Santiago MD [address] [place] [address] Damon Treat [address] [place] [address] Referral ID Status Reason Start Date Expiration Date V isits Requested Visits Authorized [id number] Authorized 05/18/2022 08/16/2022 99 99 Reason Comments Anemia 10 week follow up Reason Onset Date Comments referral 03/13/2024 Reason Comments Follow-up Reason Comments Diplopia Reason Comments Glaucoma Macular Degeneration Goals (unrecognized section and content) Goals may [...] BE BASED ON THE PRIMARY CLINICAL RECORDS. [facility], [facility]. provides no warranty or guarantee of the accuracy or completeness of information in this document.
--- NOTE | 2025-04-13 00:26 | PC.NURSE ---
Bruising noted to forehead above right eye.
[2025-04-13 00:27] VITALS: BP 145/92; PULSE 67; O2SAT 99
== END 2025-04-13 03:56 | disposition home or self-care (01) ==
PROVIDERS: Emergency Provider Emergency Medicine; PCP Internal Medicine
DX: S00.83XA Contusion of other part of head, initial encounter (principal); W01.0XXA Fall on same level from slipping, tripping and stumbling without subsequent striking against object, initial encounter
CPT/HCPCS: 70450; 72125; 76376; 99284

== ENCOUNTER 2025-04-23 15:13 | Outpatient (OUT) | payer MEDICARE, OTHER, SELFPAY ==
--- OUTSIDE RECORDS SUMMARY | 2025-04-23 15:26 | XMS_ITS | CCD ---
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 Name Role Phone Doctor, No Unavailable Unavailable Doctor, No Unavailable Unavailable Donnell Barton Unavailable Unavailable Donnell Barton Unavailable Unavailable Kvng Wadsworth DO Primary Care Provider Kvng Wadsworth DO Primary Care Provider DO Kvng Wadsworth Primary Care Provider [phone] MD Jeyson Diaz Attending Provider [phone] KVNG WADSWORTH Primary Care Unavailable MAVIS SANTIAGO Referring Unavailable MAVIS SANTIAGO Attending Unavailable KVNG WADSWORTH Primary Care Unavailable KVNG WADSWORTH Primary Care Unavailable MAVIS SANTIAGO Attending Unavailable KVNG WADSWORTH Referring Unavailable KVNG WADSWORTH Primary Care Unavailable Adebayo Pan Unavailable Kvng Wadsworth Unavailable Jeyson Diaz Unavailable Sadiq Beckham Unavailable DO Kvng Wadsworth Primary Care Provider [phone] MD Jeyson Diaz Attending Provider DR KVNG [...] Provider DO Kvng Wadsworth Primary Care Provider DO Lorelei Hurtado Attending Provider Kvng Wadsworth Primary Care Unavailable Lorelei Hurtado Admitting Unavailab Lorelei Wetzel Attending Unavailab le Kvng Wadsworth Primary Care Unavailable Asaad, Imad Admitting Unavailable Asaad, Imad Attending Unavailable Gurmeet REDD, Charlotte Costa Attending Unavailable Gurmeet REDD, Andrius Costa Attending Unavailable Gurmeet REDD, Charlotte Costa Attending Unavailable Kvng Wadsworth MD Primary Care Provider Kvng Wadsworth DO Primary Care Provider CESARIO COBIAN Attending Unavailable ERMELINDA, TEENA Referring Unavailable CESARIO COBIAN Attending Unavailable APLINGVEDA Attending Unavailable APLINGVEDA Referring Unavailable LORELEI HURTADO Attending Unavailable LORELEI HURTADO Attending Unavailable NICHO MCCOY Attending Unavailable LORELEI HURTADO Attending Unavailable ALYSSA CORONA Attending Unavailable KVNG WADSWORTH Referring Unavailable Kvng Wadsworth DO Primary Care Provider [phone] Kvng Wadsworth DO Attending Provider Kvng Wadsworth DO Primary Care Provider [phone] Judith Fitzpatrick CMA Attending Provider Unavaila ble Kvng Wadsworth DO Attending Provider Allergies Allergy Classification Reported Allergen(s) Allergy Type Date of Onset Reaction(s) Facility (11 sources) Penicillins; Translations: [PENICILLINS] Drug allergy (disorder) 11-16-19 15 AOF, Hives, Hives, PENICILLINS [facility] Repository Comment on above: Onset Date: 04/30/20 06 (11 sources) Sulfonamides (Antibiotic); Translations: [SULFA (SULFONAMIDE ANTIBIOTICS)] Drug allergy (disorder) 11-16-19 15 AOF, Hives, Hives, Comment:2005 [facility] Repository (10 sources) Pvylcea-Thy-Trk Reductase Inhibitor Drug allergy (disorder) 01-06-20 18 Unknown Reaction, Unknown Reaction, muscle aches [facility] Repository (20 sources) Cephalosporins (Antibiotic); Translations: [CEPHALOSPORINS] Drug Allergy 10-24-19 15 Unknown [facility] (7 sources) HMG-CoA reductase inhibitor; Translations: [FKPSQAT-FZW-LNK REDUCTASE INHIBITORS] Drug Allergy 01-06-20 18 Unknown [facility] (20 sources) Nitrofurantoin; Translations: [NITROFURANTOIN MACROCRYSTAL] Drug Allergy 10-12-19 19 Rash, Itching [facility] (6 sources) Penicillins Drug Allergy 11-16-19 15 [facility] (20 sources) Povidone-Iodine; Translations: [POVIDONE-IODINE] Drug Allergy 06-21-20 19 Unknown [facility] (20 sources) Sulfonamides (Antibiotic) Drug Allergy 11-16-19 15 [facility] (20 sources) Vancomycin; Translations: [VANCOMYCIN] Drug Allergy 10-12-19 19 Rash, Itching [facility] (20 sources) Nitrofurantoin; Translations: [nitrofurantoin] Drug Allergy 12-02-[address] [facility] (20 sources) Penicillin G Benzathine Drug allergy rash [facility] Other (20 sources) Sulfacetamide / Sulfur Drug Allergy rash [facility] Other (20 sources) Statins Depletion Drug [facility]) black walnut pollen extract Drug Allergy 05-17-20 14 [facility] Repository (1 source) Cephalosporins (Antibiotic) Drug allergy (disorder) 10-24-19 15 [facility] Repository (2 sources) Nitrofurantoin Drug Allergy 10-24-19 15 rash [facility] Repository (1 source) Penicillins Drug allergy (disorder) 01-24-20 13 [facility] Repository (2 sources) Povidone-Iodine Drug Allergy 06-21-20 19 Unknown [facility] Repository (1 source) Sulfonamides (Antibiotic) Drug allergy (disorder) 01-31-20 13 [facility] Repository (1 source) Vancomycin Drug Allergy 10-24-19 15 [facility] Repository (20 sources) Statins Depletion *DIETARY PRODUCTS/DIETARY MANAGE Propensity to adverse reactions Unknown [facility] Other (20 sources) Substance with penicillin structure and antibacterial mechanism of action (substance) Drug allergy 04-30-20 06 PENICILLINS [facility] Other (20 sources) Sulf-10 Drug allergy 12-01-19 06 SULFA 10 Vee24 [facility] Other (1 source) Vancomycin Drug Allergy rash [facility] Other (1 source) Cephalosporins (Antibiotic) Drug allergy (disorder) 03-16-[address] [facility] Repository (1 source) Povidone-Iodine Drug Allergy 03-16-[address] [facility] Repository (1 source) Vancomycin Drug Allergy 03-16-[address] [facility] Repository (15 sources) Cephalosporins (Antibiotic) Drug Allergy 10-24-19 15 [facility] (15 sources) HMG-CoA reductase inhibitor Drug Allergy 01-25-20 24 [facility] (15 sources) Penicillins Drug Allergy 11-16-19 15 Hives [facility] (5 sources) Povidone-Iodine Drug Allergy 01-25-20 [facility] (7 sources) Pregabalin Allergy to substance 05-15-20 Unknown [facility] Medications Current Medications Medication Drug Class(es) Dates Sig (Normalized) Sig (Original) acetaminophen 500 mg oral tablet (20 sources) Start: 07-26-2022 take 1 tablet by mouth four times daily as needed for pain acetaminophen (T ylenol) 500 MG tablet Take by mouth every 6 (six) hours if needed Active [id number] actuat albuterol 0.09 mg/actuat metered dose [...] (20 sources) Dihydropyridine Calcium Channel Frandy Start: 07-05-2024 End: 09-21-2024 take 1 tablet by mouth once daily Start: 10-12-2023 End: 07-05-2024 take 1 tablet by mouth once daily Amlodipine 5 mg tablet Discontinued 5 MG PO Daily October 12, 2023 11:51am July 05, 2024 7:25pm Start: 10-07-2023 End: 10-12-2023 take 1 tablet by mouth once daily Amlodipine 5 mg tablet Discontinued 0 .ROUTE .COMPLEX 90 October 07, [...] take 1 tablet by mouth once daily Start: 11-15-2014 End: 01-19-2024 take 1 tablet by mouth once daily Atenolol (Tenormin) 25 mg Tablet Discontinued 25 MG PO Daily November 28, 2019 12:00am January 19, 2024 8:31am Comment on above: Take 1 tablet by george once daily. Blood-Glucose Meter (Onetouch Ultra2 Meter) misc (9 sources) Start: 03-27-2024 Blood-Glucose Meter (Onetouch Ultra2 Meter) mis Active 0 .Route March 27, 2024 12:00am to test blood sugar daily Start: 03-26-2024 End: 10-04-2024 Blood-Glucose Meter (Onetouc h Ultra2 Meter) mis Discontinued 0 .ROUTE .MEDSUPPLY March 26, 2024 11:56am October 04, 2024 11:34am Use to test home BS qd Start: 03-26-2024 Blood-Glucose Meter (Onetouch Ultra2 Meter) misc Active 0 .ROUTE .MEDSUPPLY March 26, 2024 11:56am Use to test home BS qd Start: 03-26-2024 End: 03-26-2024 Blood-Glucose Meter (Onetouc h Ultra2 Meter) [facility] Discontinued 0 .ROUTE .MEDSUPPLY March 26, 2024 12:00am March 26, 2024 11:57am Use to test home BS qd Calcium + D 315-200 MG-UNIT (20 sources) take 1 tablet by george twice daily at mealtime Calcium + D 315-200 MG-UNIT 1 tablet with meals Orally Twice a day Active calcium carbonate 1500 mg oral tablet (20 sources) Start: 07-26-2022 calcium carbonat e (Super Calcium) 1500 (600 Ca) MG tablet Take 1,500 mg by mouth every 12 (twelve) hours Active cholecalciferol 0.01 mg chew able tablet (20 sources) Vitamin D Start: 07-26-2022 take 1 tablet by george once daily cholecalciferol (Vitamin D-3) 250 MCG (79998 UT) capsule as directed Orally Active dicyclomine [...] Start: 12-28-2017 take 1 capsule by mo [facility] every twelve hours Doxycycline Hyclate 100 MG 1 capsule Orally every 12 hrs for 10 days Dec, Not-Taking famotidine 20 mg oral tablet (20 sources) Histamine-2 Receptor Antagonist Start: 03-26-2024 take 1 tablet by mouth once daily Start: 07-26-2022 End: 08-29-2023 take 1 tablet by mouth once daily before mealtime Famotidine (Pepcid Ac) 20 mg Tablet Discontinued 20 MG PO Daily July 26, 2022 1:00am August 29, 2023 1:48pm famotidine (Pepc id) 40 MG tablet 1 (one) time each day at the same time Active take 1 tablet by george twice daily famotidine (PEPCID) 20 mg tablet Take 20 mg by mouth twice daily. 0 Active Comment on above: Take 20 mg by mouth twice daily. latanoprost 0.05 mg/ml ophthalmic solution (5 sources) Prostaglandin Analog Start: 09-24-2024 End: 09-24-2025 levothyroxine sodium 0.112 mg oral tablet (20 sources) l-Thyroxine Start: 12-16-2024 take 1 tablet by mouth once daily in the morning Start: 10-04-2024 End: 12-16-2024 take 1 tablet [...] 0.125 mcg. lubiprostone 0.008 mg oral capsule (4 sources) Chloride Channel Activator Start: 5 End: 5 take 1 capsule by mouth twice daily Multiple Vitamin (Multi Vitamin Daily) tablet (15 sources) Multiple Vitamin (Multi Vitamin Daily) tablet 1 (one) time each day at the same time Active Multivitamin preparation (20 sources) Multivitamin Act kerri Multivitamin Not -Taking Multivitamin tablet (3 sources) Start: 03-26-2024 take 1 tablet by mouth once da marilyn Start: 03-26-2024 take 1 tablet by george once daily Multivitamin tablet Active 1 TAB PO Daily March 26, 2024 12:00am Complies with drug therapy Start: 03-26-2024 take 1 tablet by george th once daily Multivitamin tablet Active 1 TAB PO Daily March 26, 2024 12:00am [place] 3 1200 MG (20 sources) take 1 capsule by mo [facility] once daily [place] 3 1200 MG 1 capsule Orally Once a day Active take 1 capsule by mouth once taniya ly [place] 3 1200 MG 1 capsule Orally Once a day Not-Taking [place]-3 Fatty Acids (OMEGA 3 500 PO) (10 sources) [place]-3 Fatty Ac ids (OMEGA 3 500 PO) Take by mouth Active pantoprazole 40 mg delayed release oral tablet (20 sources) Proton Pump Inhibitor Start: 06-22-2024 End: 12-25-2024 Start: 03-25-2023 Pantoprazole S odium 40 MG [...] 1:33pm red yeast rice 600 mg oral t ablet (20 sources) Start: 07-26-2022 take 1 tablet by george th once daily Start: 07-26-2022 take 2400 mg by mout [...] (20 sources) Opioid Agonist Start: 12-15-2023 End: 01-17-2025 take 1 tablet by mouth every eight hours as needed for pain Start: 10-12-2022 End: 12-15-2023 take 1 tablet [...] hrs Active take 1 tablet by george every six hours as needed Tylenol Extra Strength 500 MG 1 tablet a s needed Orally every 6 hrs Not-Taking Vit C,C-Tv-Udohv-Lutein-Zeax an (Preservision Areds-2) 250-90-40-1 mg Capsule (8 sources) Start: 07-26-2022 Start: 07-26-2022 Vit C,E-Zn-Director Personal rq-Alzudl-Dfutap (Preservision Areds-2) 250-90-40-1 mg Capsule Active 1 TAB PO Twice daily July 26, 2022 1:00am Complies with drug therapy Start: 07-26-2022 Vit C,E-Zn-Director Personal iv-Vxfumv-Mueqyb (Preservision Areds-2) 250-90-40-1 mg Capsule Active 1 TAB PO Twice daily July 26, 2022 1:00am Start: 07-26-2022 Vit C,E-Zn-Director Personal la-Cjtazq-Euylxk (Preservision Areds-2) 250-90-40-1 mg Capsule Active 1 TAB PO Twice daily July 26, 2022 12:00am Vitamin C 500 MG (20 sources) Vitamin C 500 MG Orally Active Vitamin C 500 MG Orally Not-Taking vitamin e d-alpha 400 unt oral capsule (3 sources) take 1 capsule by [facility] every twenty-four hours Vitamin E 400 UNIT [...] mg/ml injection (20 sources) Bisphosphonate Start: 11-02-2024 zoledronic acid (Reclast) 5 MG/100ML solution Intravenous [...] Comment on above: Take by mouth. CA/D3/MAG OX/ZINC/CALCINER FEEDER/MEREDITH/B OR (CALCIUM 600+D3 PLUS ORAL) (6 sources) take 1200 mg by mouth once daily CA/D3/MAG OX/ZINC/CALCINER FEEDER/MEREDITH/BOR (CALCIUM 600+D3 PLUS ORAL) Take 1,200 mg by mouth once daily. 0 Active Comment on above: Take 1,200 mg by george th once daily. celecoxib 100 mg oral capsul e (10 sources) Nonsteroidal Anti-inflamma tory Drug S t [...] mg by mouth twice daily. estrogens, conjugated (snf) 0.3 mg oral tablet (20 sources) Estrogen [...] hours Active LORazepam 0.5 mg oral tablet (17 sources) Benzodiazepine Start: 10-12-2023 End: 03-26-2024 take [...] succinate 25 mg extended release oral tablet (10 sources) beta-Adrenergic Frandy Start: 11-28-2019 End: 05-29-2020 take 1 tablet by mouth once daily Metoprolol Succinate 25 mg Tablet Extended Release 24 Hr Discontinued 25 MG PO Daily November 28, 2019 12:00am May 29, 2020 12:10pm Start: 11-08-2017 End: 05-18-2022 metoprolol succinate ER (TOP ROL XL) 25 mg 24 hr tablet predniSONE 10 mg oral tablet (20 sources) Start: 03-01-2024 End: 06-29-2024 take 1 tablet by mouth once daily Prednisone 10 mg tablet Discontinued 10 MG PO Daily March 26, 2024 12:00am March 30, 2024 2:17pm Start: 03-04-2023 predniSONE 20 MG 1 tablet Orally bid w /food x 3 days then qd w/ food x 3 days for 6 days Feb, Active pyridostigmine bromide 60 mg oral tablet (13 sources) Start: 03-26-2024 End: 03-30-2024 take 1 tablet by mouth three times daily Pyridostigmine Morrill 60 mg tablet Discontinued 60 MG PO [...] ectasia] 08-31-2023 Chronic Blindness and vision defects (4 sources) Diplopia; Translations: [Diplopia] 10-10-2023 Episodic Cataract [...] pathological fracture] Chronic Other aftercare (2 sources) [facility]DC (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; Translations: [MCFP CURRNT USE OPIATE ANALGES] Onset: 10-26-2022 Episodic [...] [Hypoglycemia, unspecified] 03-26-2024 Chronic Other eye disorders (6 sources) Partial palsy of left oculomotor nerve; Translations: [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] nerve palsy, left eye] 10-05-2023 Episodic Other eye disorders (12 sources) Abducens nerve palsy; 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 [abducent] nerve palsy, unspecified eye] 10-10-2023 Episodic Other eye disorders (6 sources) Ptosis of eyelid; Translations: [Unspecified ptosis [...] Onset: 09-28-2022 Episodic Other nervous system disorders (16 sources) Paresthesia; Translations: [Paresthesia of skin] 08-29-2023 [...] neoplasm of trachea, bronchus and lung; Translations: [[facility] HX MAL NEOPLSM TRACH BRON LNG] Onset: 10-26-2022 Episodic Residual codes; unclassified (1 source) Family history of malignant neoplasm of other organs or systems; Translations: [FAM HX MALIG NEOPLASM OTH ORGN/SYS] Onset: 10-26-2022 Episodic Residual codes; unclassified (12 sources) Memory impairment; Translations: [Other amnesia] Episodic Residual codes; unclassified (2 sources) Other amnesia Episodic Residual codes; unclassified (3 sources) Mammogram declined; Translations: [Procedure and treatment [...] Spondylosis; intervertebral disc disorders; other back problems (11 sources) Low back pain; Translations: [Low back pain, unspecified] Episodic Thyroid disorders (20 sources) Rhett thyroiditis; 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-2022 Chronic Transient cerebral ischemia (20 sources) Vertebrobasilar artery syndrome; 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 Unclassified (20 sources) Left-sided low back pain without sciatica, unspecified chronicity; Translations: [Left-sided low back pain without sciatica, unspecified chronicity] Unclassified (20 sources) 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; Translations: [Chronic lbbl-PLOQG-43 syndrome] Unclassified (3 sources) LOW BACK PAIN, [...] exposure to COVID-19] Unclassified (1 source) 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; Translations: [Chronic hdcl-LNZRW-81 syndrome] Viral infection (4 sources) COVID-19; Translations: [...] 05-22-2020 Episodic Other aftercare (1 source) Other [facility] (current) drug therapy; Translations: [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 Laboratory - Chemistry and C hemistry - challengeon 11-01-2024 Calcium [Mass/Vol] 9.0 mg/dL 8.5-10.1 [facility] Chloride [Moles/Vol] 98 mmol/L 98-107 [facility] CO2 [Moles/Vol] 30.6 mmol/L 21.0-32.0 [facility] Creatinine [Mass/Vol] 0.97 mg/dL 0.55-1.02 [facility] GFR/1.73 sq M.predicted MDRD (S/P/Bld) [Vol rate/Area] mL/min/{1.73_m2} >=60 mL/min/1.73m [address] [facility] Glucose [Mass/Vol] 94 mg/dL 74-106 [facility] Potassium [Moles/Vol] 4.6 mmol/L 3.5-5.1 [facility] Sodium [Moles/Vol] 134 mmol/L Low 136-145 [facility] Urea nitrogen [Mass/Vol] 14.0 mg/dL 7.0-18.[address] [facility] Urea nitrogen/Creatinine [Mass ratio] 14.4 mg/mg [facility] No Panel Informationon 11-01 25-Hydroxy Vitamin D Total 35.6 ng/mL [facility] Comment on above: <20 ng/mL Vit D defi cient20-<30 ng/mL Vit D [id number] ng/mL Vit D sufficient>100 ng/mL Potential Toxicity Serum or plasma anion gap de terminationon 11-01-2024 Anion gap [Moles/Vol] 10.0 mmol/L [facility] CT chest w conon 03-16-2024 [place] [address] CT Scan Report Signed Patient: Tangela Moss MR#: [id number] : 1940 Acct:[id number] Age/Sex: 84 / F ADM Date: 03/16/24 Loc: CT Room: Type: [facility] Attending Dr: Lorelei Hurtado DO Copies [...] Viveros Jr., D.O.03/16/2024 2:09 PM Dictation Location: [place] [address] Transcribed By: [facility] 03/16/24 1409 Dictated By: Bert Viveros Jr, DO 03/16/24 1403 Signed By: 03/16/24 1409 Normal [facility] Creatinineon 03-16-2024 GFR/1.73 sq M.predicted MDRD (S/P/Bld) [Vol rate/Area] mL/min/{1.73_m2} Normal [facility] Comment on above: Result Comment: PERF ORMED BY: [place] [address] PATHOLOGIST BOX BLANK MACHINE FEEDER SPEEDY GRAY M.D. Performed By: #### C REAT #### [facility] [address] [place] [address] Creatinine [Mass/volume] in Serum or PlasmaOrdered By: Lorelei Hurtado on 03-16-2024 Creatinine [Mass/Vol] 0.83 mg/dL Normal 0.60-1.20 [facility] Comment on above: Performed By: #### C REAT #### [facility] [address] [place] [address] No Panel InformationOrdered By: Lorelei Hurtado on 03-16-2024 Estimated GFR (CKD-EPI) > 60.0 mL/Min [facility] Creatinine Clearance (Chem N/A [facility] NM gastric emptying studyon 07-25-2023 NM gastric emptying [place] [address] Nuclear Medicine Report Signed Patient: Tangela Moss MR#: [id number] : 1940 Acct:[id number] Age/Sex: 83 / F ADM Date: 07/25/23 Loc: [place] Room: Type: [facility] Attending Dr: Jeyson Diaz MD Copies [...] Matt Feldman M.D.07/25/2023 9:40 AM Dictation Location: [place] [address] Transcribed By: [facility] 07/25/23 0940 Dictated By: Matt Feldman DO 07/25/23 0934 Signed By: 07/25/23 0940 Normal [facility] MG MAMM SCREEN 3D ROXANA CADon 10-20-2022 MG MAMM SCREEN 3D ROXANA CAD Patient: TANGELA MOSS Exam Date: 10/20/2022 : 1940 Gender:F Ordering : DR KVNG WADSWORTH D.O. Admission #: [id number] Family : Order #: [id number] CLICK HERE TO VIEW EXAM RADIOLOGY REPORT [...] at age 64. LOCATION: [facility] BREAST COMPOSITION: Scattered areas fibroglandular density. FINDINGS: [...] Baez M.D. on 10/20/2022 at 13:19 Normal [facility] CBC W Auto Differential pane l (Bld)on 07-27-2022 Basophils (Bld) [#/Vol] 0.08 10*3/uL Normal <0.11 [facility] Comment on above: Order Comment: Speci men Type: BLOOD SPECIMEN Ordering Facility: [facility] Address: [address] [address] Performed By: #### 1 4196-0, 06511-6 #### [facility] CLIA [id number] [address] [place] [address] Basophils/100 WBC (Bld) 0.9 % Normal [facility] Comment on above: Order Comment: Speci men Type: BLOOD SPECIMEN Ordering Facility: [facility] Address: [address] [place] [address] Performed By: #### 1 4196-0, 03761-1 #### [facility] CLIA [id number] [address] [place] [address] Differential cell count method Nom (Bld) Auto Normal [facility] Comment on above: Order Comment: Speci men Type: BLOOD SPECIMEN Ordering Facility: [facility] Address: [address] [address] Performed By: #### 1 4196-0, 11581-7 #### [facility] CLIA [id number] [address] [place] [address] Eosinophils (Bld) [#/Vol] 0.52 10*3/uL High <0.46 [facility] Comment on above: Order Comment: Speci men Type: BLOOD SPECIMEN Ordering Facility: [facility] Address: [address] [place] [address] Performed By: #### 1 4196-0, 26362-3 #### [facility] CLIA [id number] [address] [place] [address] Eosinophils/100 WBC (Bld) 5.8 % Normal [facility] Comment on above: Order Comment: Speci men Type: BLOOD SPECIMEN Ordering Facility: [facility] Address: [address] [place] [address] Performed By: #### 1 4196-0, 08172-9 #### [facility] CLIA [id number] [address] [place] [address] Erythrocyte distribution width (RBC) [Ratio] 18.0 % High 11.5-15.0 [facility] Comment on above: Order Comment: Speci men Type: BLOOD SPECIMEN Ordering Facility: [facility] Address: [address] [place] [address] Performed By: #### 1 4196-0, 67629-0 #### [facility] CLIA [id number] [address] [place] [address] Hematocrit (Bld) [Volume fraction] 39.6 % Normal 36.0-46.0 [facility] Comment on above: Order Comment: Speci men Type: BLOOD SPECIMEN Ordering Facility: [facility] Address: [address] [place] [address] Performed By: #### 1 4196-0, 81288-2 #### [facility] CLIA [id number] [address] [place] [address] Hemoglobin (Bld) [Mass/Vol] 13.0 g/dL Normal 11.5-15.5 [facility] Comment on above: Order Comment: Speci men Type: BLOOD SPECIMEN Ordering Facility: [facility] Address: [address] [address] Performed By: #### 1 4196-0, 81570-7 #### [facility] CLIA [id number] [address] [place] [address] Immature granulocytes (Bld) [#/Vol] 0.04 10*3/uL Normal <0.10 [facility] Comment on above: Order Comment: Speci men Type: BLOOD SPECIMEN Ordering Facility: [facility] Address: [address] [address] Performed By: #### 1 4196-0, 84493-0 #### [facility] CLIA [id number] [address] [place] [address] Immature granulocytes/100 WBC (Bld) 0.4 % Normal [facility] Comment on above: Order Comment: Speci men Type: BLOOD SPECIMEN Ordering Facility: [facility] Address: [address] [address] Performed By: #### 1 4196-0, 57730-2 #### [facility] CLIA [id number] [address] [place] [address]679 Lymphocytes (Bld) [#/Vol] 3.25 10*3/uL Normal 1.00-4.00 [facility] Comment on above: Order Comment: Speci men Type: BLOOD SPECIMEN Ordering Facility: [facility] Address: [address] [address] Performed By: #### 1 4196-0, 47778-8 #### [facility] CLIA [id number] [address] [place] [address] 64434 Lymphocytes/100 WBC (Bld) 36.3 % Normal [facility] Comment on above: Order Comment: Speci men Type: BLOOD SPECIMEN Ordering Facility: [facility] Address: [address] [address] Performed By: #### 1 4196-0, #### [facility] CLIA [id number] [address] [place] [address] 74481 MCH (RBC) [Entitic mass] 28.3 pg Normal 26.0-34.0 [facility] Comment on above: Order Comment: Speci men Type: BLOOD SPECIMEN Ordering Facility: [facility] Address: [address] [place] [address] Performed By: #### 1 4196-0, 75318-3 #### [facility] CLIA [id number] [address] [place] [address]18 MCHC (RBC) [Mass/Vol] 32.8 g/dL Normal 30.5-36.0 [facility] Comment on above: Order Comment: Speci men Type: BLOOD SPECIMEN Ordering Facility: [facility] Address: [address] [place] [address] Performed By: #### 1 4196-0, 50490-6 #### [facility] CLIA [id number] [address] [place] [address] 27368 MCV (RBC) [Entitic vol] 86.1 fL Normal 80.0-100.0 [facility] Comment on above: Order Comment: Speci men Type: BLOOD SPECIMEN Ordering Facility: [facility] Address: [address] [place] [address] Performed By: #### 1 4196-0, 97659-0 #### [facility] CLIA [id number] [address] [place] [address] 94473 Monocytes (Bld) [#/Vol] 1.25 10*3/uL High <0.87 [facility] Comment on above: Order Comment: Speci men Type: BLOOD SPECIMEN Ordering Facility: [facility] Address: [address] [place] [address] Performed By: #### 1 4196-0, 63586-8 #### [facility] CLIA [id number] [address] [place] [address]952 Monocytes/100 WBC (Bld) 14.0 % Normal [facility] Comment on above: Order Comment: Speci men Type: BLOOD SPECIMEN Ordering Facility: [facility] Address: [address] Performed By: #### 1 4196-0, 17891-7 #### [facility] CLIA [id number] [address] [place] [address]3716 Neutrophils (Bld) [#/Vol] 3.81 10*3/uL Normal 1.45-7.50 [facility] Comment on above: Order Comment: Speci men Type: BLOOD SPECIMEN Ordering Facility: [facility] Address: [address] [address] Performed By: #### 1 4196-0, 89306-4 #### [facility] CLIA [id number] [address] [place] [address] 28714 Neutrophils/100 WBC (Bld) 42.6 % Normal [facility] Comment on above: Order Comment: Speci men Type: BLOOD SPECIMEN Ordering Facility: [facility] Address: [address] Performed By: #### 1 4196-0, 68203-5 #### [facility] CLIA [id number] [address] [place] [address] Nucleated RBC (Bld) [#/Vol] 10*3/uL Normal <0.01 [facility] Comment on above: Order Comment: Speci men Type: BLOOD SPECIMEN Ordering Facility: [facility] Address: [address] Performed By: #### 1 4196-0, 96211-1 #### [facility] CLIA [id number] [address] [place] [address] 56098 Nucleated RBC/100 WBC (Bld) [Ratio] 0.0 /100 WBC Normal [facility] Comment on above: Order Comment: Speci men Type: BLOOD SPECIMEN Ordering Facility: [facility] Address: [address] Performed By: #### 1 4196-0, 13172-5 #### [facility] CLIA [id number] [address] [place] [address] Platelet mean volume (Bld) [Entitic vol] 9.5 fL Normal 9.0-12.7 [facility] Comment on above: Order Comment: Speci men Type: BLOOD SPECIMEN Ordering Facility: [facility] Address: [address] [place], [place] [address] Performed By: #### 1 4196-0, 74689-6 #### [facility] CLIA [id number] [address] [place] [address]85 Platelets (Bld) [#/Vol] 379 10*3/uL Normal 150-400 [facility] Comment on above: Order Comment: Speci men Type: BLOOD SPECIMEN Ordering Facility: [facility] Address: [address] [place] [address] Performed By: #### 1 4196-0, 35561-3 #### [facility] CLIA [id number] [address] [place] [address]605 RBC (Bld) [#/Vol] 4.60 10*6/uL Normal 3.90-5.20 [facility] Comment on above: Order Comment: Speci men Type: BLOOD SPECIMEN Ordering Facility: [facility] Address: [address] [place], [place] [address] Performed By: #### 1 4196-0, 54885-5 #### [facility] CLIA [id number] [address] [place] [address]70 WBC (Bld) [#/Vol] 8.95 10*3/uL Normal 3.70-11.00 [facility] Comment on above: Order Comment: Speci men Type: BLOOD SPECIMEN Ordering Facility: [facility] Address: [address] [place], [place] [address] Performed By: #### 1 4196-0, 30681-8 #### [facility] CLIA [id number] [address] [place] [address] CNOVSPon 07-27-2022 CNOVSP Visit (SP) Office ([place]) TANGELA MOSS ([id number]) 1940 F Date Time Provider Department 07/27/22 2:45 PM MAVIS SANTIAGO During your visit today, we recorded the following information about you: Temperature Pulse Respiration Blood pressure 98.1 degrees 64/minute 16/minute 125/72 Weight Height 66.5 kg 1.524 m Mavis Santiago MD 07/27/2022 2:56 PM Signed PATIENT NAME: Tangela Moss CLINIC NO.: [id number] ATTENDING PHYSICIAN: Mavis Santiago MD DATE OF [...] Range Status (more content not included)... Normal [facility] Ferritin SerPl-mCncon 2022 Ferritin [Mass/Vol] 104.0 ng/mL Normal 14.7-205.1 [facility] Comment on above: Order Comment: Speci men Type: BLOOD SPECIMEN Ordering Facility: [facility] Address: [address] [place] [address] Performed By: #### 5 0190-8, 2276-4 #### [facility] CLIA [id number] [address] [facility] [place] [address] [place] Iron and Iron binding capaci ty panelon 07-27-2022 Iron [Mass/Vol] 43 ug/dL Normal 41-186 [facility] Comment on above: Order Comment: Speci men Type: BLOOD SPECIMEN Ordering Facility: [facility] Address: [address] Performed By: #### 5 0190-8, 2275-4 #### [facility] CLIA [id number] [address] [place] [address] [place] Iron binding capacity [Mass/Vol] 265 ug/dL Normal 232-386 [facility] Comment on above: Order Comment: Speci men Type: BLOOD SPECIMEN Ordering Facility: [facility] Address: [address] Performed By: #### 5 0190-8, 2275-4 #### [facility] CLIA [id number] [address] [place] [address] [place] Iron/TIBC [Molar ratio] 16.2 % Normal 15.0-57.0 [facility] Comment on above: Order Comment: Speci men Type: BLOOD SPECIMEN Ordering Facility: [facility] Address: [address] Performed By: #### 5 0190-8, 4 #### [facility] CLIA [id number] [address] [place] [address] [place] Retics #on 07-27-2022 Reticulocytes (Bld) [#/Vol] 0.84177 10*3/uL Normal 0.018-0.100 [facility] Comment on above: Order Comment: Speci men Type: BLOOD SPECIMEN Ordering Facility: [facility] Address: [address] Performed By: #### 1 4196-0, 93170-4 #### [facility] CLIA [id number] [address] [place] [address] Reticulocytes (Bld) [#/Vol]o n 07-27-2022 Reticulocytes/100 RBC (Bld) 0.9 % Normal 0.4-2.0 [facility] Comment on above: Order Comment: Dayana soliz Type: BLOOD SPECIMEN Ordering Facility: [facility] Address: [place] [address] Performed By: #### 1 4196-0, 42948-0 #### [facility] CLIA [id number] [address] [place] [address] COVID-19 SOFIAOrdered By: Brandy Diaz on 07-22-2022 SARS-CoV+SARS-CoV-2 (COVID-19) Ag IA.rapid Ql (Resp) Negative Negative [facility] Comment on above: This is a duplicate Heidi SARS Antigen (DB) result to be used for statistical tracking purpose only. No Panel InformationOrdered By: Jeyson Diaz on 07-22-2022 SARS Antigen (LFIA) [facility] CNSWon 06-02-2022 CNSW Social Work ([place]) TANGELA MOSS ([id number]) 1940 F Date Time Provider Department 06/02/22 [...] - Hives POVIDONE-IODINE 06/21/2019 16 - Unknown DJCLHLL-NGF-WEV REDUCTASE INHIBIT*01/05/2018 16 - Unknown SULFA (SULFONAMIDE [...] 112 mcg tablet 0.125 mcg. - CA/D3/MAG OX/ZINC/CALCINER FEEDER/MEREDITH/BOR (CALCIUM 600+D3 PLUS ORAL) Take 1,200 mg by mouth once daily. - atenolol (TENORMIN) 25 mg tablet Take 1 tablet by mouth once daily. Problem List As Of Date 06/02/2022 Noted Resolved Anemia [D64.9] 11/15/2014 Iron deficiency [E61.1] 11/15/2014 Encounter Status:Closed by MARCIA RAMIRES on 06/02/22 [facility] ([id number]) 1940 F Date Time Provider Department 05/25/22 [employer] DAMON BREWER During your visit today, we recorded the following information about you: Mohit Lo [facility] 05/25/2022 3:35 PM Signed 1st report of treatment-non oncology regimen (Monoferric) Patient holds Medicare coverage. No FA available at this time. Allergies As of Date: 05/25/2022 Noted Allergy Reaction CEPHALOSPORINS 10/23/2014 16 - Unknown MACRODANTIN (NITROFURANTOIN MACRO*10/11/2018 2 - Rash 9 - Itching PENICILLINS 11/15/2014 4 - Hives POVIDONE-IODINE 06/21/2019 16 - Unknown ARWRSEM-RGS-YIN REDUCTASE INHIBIT*01/05/2018 16 - Unknown SULFA (SULFONAMIDE [...] 112 mcg tablet 0.125 mcg. - CA/D3/MAG OX/ZINC/CALCINER FEEDER/MEREDITH/BOR (CALCIUM 600+D3 PLUS ORAL) Take 1,200 mg [...] deficiency [E61.1] 11/15/2014 Encounter Status:Closed by NAUN MOHIT FLYNN on 05/25/22 [facility] CNOVSPon 05-18-2022 CNOVSP Visit (SP) Office ([place]) TANGELA MOSS ([id number]) 1940 F Date Time Provider Department 05/18/22 4:00 PM MAVIS SANTIAGO During your visit today, we recorded the following information about you: Temperature Pulse Respiration Blood pressure 98.1 degrees 78/minute 16/minute 122/78 Weight 68 kg Mavis Santiago MD 05/18/2022 4:08 PM Signed PATIENT NAME: Tangela Moss CLINIC NO.: [id number] ATTENDING PHYSICIAN: Mavis Santiago MD DATE OF [...] Range Status (more content not included)... Normal [facility] IMMUNOFIXATION(ELISE),PROTEIN ELEC(PE),FREon 05-06-2022 Albumin [Mass/Vol] 2.9 g/dL Normal 2.9-4.4 [facility] Comment on above: Performed By: #### I FEPEFL #### [facility] [address] [address] [address] Yayo Gregg Albumin/Globulin [Mass ratio] 1.2 {ratio} Normal 0.7-1.7 [facility] Comment on above: Performed By: #### I FEPEFL #### [facility] [address] [address] [address] Yayo Gregg Pwigc-7-Dinbswzq 0.3 g/dL Normal 0.0-0.4 [facility] Comment on above: Performed By: #### I FEPEFL #### [facility] [address] [address] [address] Yayo Gregg Xdctj-7-Urcnyaqp 0.7 g/dL Normal 0.4-1.0 [facility] Comment on above: Performed By: #### I FEPEFL #### [facility] [address] [address] [address] Yayo Gregg Beta Globulin 0.9 g/dL Normal 0.7-1.3 [facility] Comment on above: Performed By: #### I FEPEFL #### [facility] [address] [address] [address] Yayo Gregg Free [place] Lt Chains,S 39.9 mg/L Critically high 3.3-19.4 The [facility] Comment on above: Performed By: #### I FEPEFL #### [facility] [address] [address] [address] Yayo Gregg Free Lambda Lt Chains,S 22.7 mg/L Normal 5.7-26.3 [facility] Comment on above: Performed By: #### I FEPEFL #### [facility] [address] [address] [address] Yayo Gregg Gamma Globulin 0.6 g/dL Normal 0.4-1.8 The [facility] Comment on above: Performed By: #### I FEPEFL #### [facility] [address] [address] [address] Yayo Gregg Globulin (S) [Mass/Vol] 2.6 g/dL Normal 2.2-3.9 [facility] Comment on above: Performed By: #### I FEPEFL #### [facility] [address] [address] [address] Yayo Gregg Immunofixation Result, Serum Comment Normal [facility] Comment on above: Result Comment: No m onoclonality detected. Performed By: #### I FEPEFL #### [facility] [address] [address] [address] Yayo Gregg Immunoglobulin A, Qn, Serum 81 mg/dL Normal 64-422 [facility] Comment on above: Performed By: #### I FEPEFL #### [facility] [address] [address] [address] Yayo Gregg Immunoglobulin G, Qn, Serum 547 mg/dL Critically low 586-1602 [facility] Comment on above: Performed By: #### I FEPEFL #### [facility] [address] [address] [address] Yayo Gregg Immunoglobulin M, Qn, Serum 92 mg/dL Normal 26-217 [facility] Comment on above: Performed By: #### I FEPEFL #### [facility] [address] [address] [address] Yayo Gregg [place]/Lambda Ratio, S 1.76 Critically high 0.26-1.65 [facility] Comment on above: Performed By: #### I FEPEFL #### [facility] [address] [address] [address] Yayo Gregg M-Johan Not Observed Normal Not Observed [facility] Comment on above: Performed By: #### I FEPEFL #### [facility] [address] [address] [address] Yayo Gregg PDF . Normal [facility] Comment on above: Performed By: #### I FEPEFL #### [facility] [address] [address] [address] Yayo Gregg Please note: Comment Normal [facility] Comment on above: Result Comment: Prot ein electrophoresis scan will follow via computer, mail, or camp recreation specialist delivery. Performed By: #### I FEPEFL #### [facility] [address] [address] [address] Yayo Gregg Protein [Mass/Vol] 5.5 g/dL Critically low 6.0-8.5 [facility] Comment on above: Performed By: #### I FEPEFL #### [facility] [address] [place] [address] Dr. Yayo Gregg IMMUNOGLOBULINS IGA/IGM/IGG QUANTITATIVEon 05-05-2022 Immunoglobulin A, Qn, Serum 83 mg/dL Normal 64-422 [facility] Comment on above: Performed By: #### I MMUNGL #### [facility] [address] [place] [address] Dr. Yayo Gregg Immunoglobulin G, Qn, Serum 559 mg/dL Critically low [phone] [facility] Comment on above: Performed By: #### I MMUNGL #### [facility] [address] [place] [address] Dr. Yayo Gregg Immunoglobulin M, Qn, Serum 93 mg/dL Normal 26-217 [facility] Comment on above: Performed By: #### I MMUNGL #### [facility] [address] [place] [address] Dr. Yayo Gregg CBC AUTO DIFFon 05-04-2022 BASO # 0.1 103/ul Normal 0.0-0.1 [facility] Comment on above: Performed By: #### I MMUNGL #### [facility] [address] [place] [address] Dr. Yayo Gregg Basophils/100 WBC (Bld) 0.9 % Normal 0.2-2.0 [facility] Comment on above: Performed By: #### I MMUNGL #### [facility] [address] [place] [address] Dr. Yayo Gregg EO # 0.7 103/ul Normal 0.0-0.7 [facility] Comment on above: Performed By: #### I MMUNGL #### [facility] [address] [place] [address] Dr. Yayo Gregg Eosinophils/100 WBC (Bld) 6.7 % Normal 0.9-7.0 [facility] Comment on above: Performed By: #### I MMUNGL #### [facility] [address] [place] [address] Dr. Yayo Gregg Erythrocyte distribution width (RBC) [Ratio] 15.6 % Critically high 11.0-15.0 [facility] Comment on above: Performed By: #### I MMUNGL #### [facility] [address] [place] [address] Dr. Yayo Gregg Hematocrit (Bld) [Volume fraction] 31.3 % Critically low 36.0-48.0 [facility] Comment on above: Performed By: #### I MMUNGL #### [facility] [address] [place] [address] Dr. Yayo Gregg Hemoglobin (Bld) [Mass/Vol] 10.0 g/dL Critically low 12.0-16.0 [facility] Comment on above: Performed By: #### I MMUNGL #### [facility] [address] [place] [address] Dr. Yayo Gregg IG # 0.04 10e3/ul Critically high 0.00-0.03 [facility] Comment on above: Performed By: #### I MMUNGL #### [facility] [address] [place] [address] Dr. Yayo Gregg IG % 0.4 % Normal 0.0-0.5 [facility] Comment on above: Performed By: #### I MMUNGL #### [facility] [address] [place] [address] Dr. Yayo Gregg LYMPH # 2.9 103/ul Normal 1.2-3.8 [facility] Comment on above: Performed By: #### I MMUNGL #### [facility] [address] [place] [address] Dr. Yayo Gregg Lymphocytes/100 WBC (Bld) 29.6 % Normal 20.5-60.0 [facility] Comment on above: Performed By: #### I MMUNGL #### [facility] [address] [place] [address] Dr. Yayo Gregg MANUAL DIFF REQ NO Normal [facility] Comment on above: Performed By: #### I MMUNGL #### [facility] [address] [place] [address] Dr. Yayo Gregg MCH (RBC) [Entitic mass] 25.7 pg Critically low 26.7-34.0 [facility] Comment on above: Performed By: #### I MMUNGL #### [facility] [address] [place] [address] Dr. Yayo Gregg MCHC (RBC) [Mass/Vol] 31.9 g/dL Normal 29.9-35.2 [facility] Comment on above: Performed By: #### I MMUNGL #### [facility] [address] [place] [address] Dr. Yayo Gregg MCV (RBC) [Entitic vol] 80.5 fL Critically low 81.0-99.0 [facility] Comment on above: Performed By: #### I MMUNGL #### [facility] [address] [place] [address] Dr. Yayo Gregg MONO # 1.4 103/ul Critically high 0.3-0.8 [facility] Comment on above: Performed By: #### I MMUNGL #### [facility] [address] [place] [address] Dr. Yayo Gregg Monocytes/100 WBC (Bld) 14.5 % Critically high 1.7-12.0 [facility] Comment on above: Performed By: #### I MMUNGL #### [facility] [address] [place] [address] Dr. Yayo Gregg NEUT # 4.7 103/ul Normal 1.4-6.5 [facility] Comment on above: Performed By: #### I MMUNGL #### [facility] [address] [place] [address] Dr. Yayo Gregg Neutrophils/100 WBC (Bld) 47.9 % Normal 43.0-75.0 [facility] Comment on above: Performed By: #### I MMUNGL #### [facility] [address] [place] [address] Dr. Yayo Gregg Platelet mean volume (Bld) [Entitic vol] 9.5 fL Normal 9.5-13.5 [facility] Comment on above: Performed By: #### I MMUNGL #### [facility] [address] [address] [address] Yayo Gregg PLT 457 103/ul Critically high 150-450 [facility] Comment on above: Performed By: #### I MMUNGL #### [facility] [address] [address] [address] Yayo Gregg RBC 3.89 106/ul Critically low 4.20-5.40 [facility] Comment on above: Performed By: #### I MMUNGL #### [facility] [address] [address] [address] Yayo Gregg WBC 9.8 103/ul Normal 4.0-11.0 [facility] Comment on above: Performed By: #### I MMUNGL #### [facility] [address] [place] [address] Dr. Yayo Gregg FERRITINon 05-04-2022 Ferritin [Mass/Vol] 20.0 ng/mL Normal 8.0-252.0 [facility] Comment on above: Performed By: #### F ERR, FETIBC #### [facility] [address] [address] [address] Yayo Gregg IRON AND TIBCon 05-04-2022 % SATURATION 5.7 % Normal [facility] Comment on above: Performed By: #### F ERR, FETIBC #### [facility] [address] [address] [address] Yayo Gregg Iron [Mass/Vol] 18.0 ug/dL Critically low 50.0-170.0 [facility] Comment on above: Performed By: #### F ERR, FETIBC #### [facility] [address] [address] [address] Yayo Gregg TIBC DIRECT 318.0 ug/dL Normal 250.0-450.0 [facility] Comment on above: Performed By: #### F ERR, FETIBC #### [facility] [address] [place] [address] Dr. Yayo Gregg PROF CHEM 8 (BAS METB)on Anion gap [Moles/Vol] 11.7 mmol/L Normal [facility] Comment on above: Performed By: #### I MMUNGL #### [facility] [address] [place] [address] Dr. Yayo Gregg Calcium [Mass/Vol] 8.1 mg/dL Critically low 8.5-10.1 [facility] Comment on above: Performed By: #### I MMUNGL #### [facility] [address] [place] [address] Dr. Yayo Gregg Chloride [Moles/Vol] 100 mmol/L Normal 98-107 [facility] Comment on above: Performed By: #### I MMUNGL #### [facility] [address] [place] [address] Dr. Yayo Gregg CO2 [Moles/Vol] 25.7 mmol/L Normal 21.0-32.0 [facility] Comment on above: Performed By: #### I MMUNGL #### [facility] [address] [place] [address] Dr. Yayo Gregg Creatinine [Mass/Vol] 1.06 mg/dL Critically high 0.55-1.02 [facility] Comment on above: Performed By: #### I MMUNGL #### [facility] [address] [place] [address] Dr. Yayo Gregg EGFR-AF MONTENEGRIN =60 Normal >=60 [facility] Comment on above: Performed By: #### I MMUNGL #### [facility] [address] [place] [address] Dr. Yayo Gregg EGFR-NON AF MONTENEGRIN 49 mL/min/1.73m2 Critically low >=60 [facility] Comment on above: Performed By: #### I MMUNGL #### [facility] [address] [place] [address] Dr. Yayo Gregg Glucose [Mass/Vol] 121 mg/dL Critically high 74-106 [facility] Comment on above: Performed By: #### I MMUNGL #### [facility] [address] [place] [address] Dr. Yayo Gregg Potassium [Moles/Vol] 4.4 mmol/L Normal 3.5-5.1 [facility] Comment on above: Performed By: #### I MMUNGL #### [facility] [address] [place] [address] Dr. Yayo Gregg Sodium [Moles/Vol] 133 mmol/L Critically low 136-145 [facility] Comment on above: Performed By: #### I MMUNGL #### [facility] [address] [place] [address] Dr. Yayo Gregg Urea nitrogen [Mass/Vol] 16.0 mg/dL Normal 7.0-18.0 [facility] Comment on above: Performed By: #### I MMUNGL #### [facility] [address] [place] [address] Dr. Yayo Gregg Urea nitrogen/Creatinine [Mass ratio] 15.1 mg/mg Normal [facility] Comment on above: Performed By: #### I MMUNGL #### [facility] [address] [place] [address] Dr. Yayo Gregg T PROTEIN SERUMon 05-04-2022 Protein [Mass/Vol] 6.0 g/dL Critically low 6.4-8.2 [facility] Comment on above: Performed By: #### I MMUNGL #### [facility] [address] [place] [address] Dr. Yayo Gregg TSHon 05-04-2022 TSH 1.715 uIU/mL Normal 0.358-3.740 [facility] Comment on above: Performed By: #### I MMUNGL #### [facility] [address] [place] [address] Dr. Yayo Gregg CBC AUTO DIFFon 03-26-2022 BASO # 0.1 103/ul Normal 0.0-0.1 [facility] Comment on above: Performed By: #### C BC #### [facility] [address] [place] [address] Dr. Yayo Gregg Basophils/100 WBC (Bld) 1.0 % Normal 0.2-2.0 [facility] Comment on above: Performed By: #### C BC #### [facility] [address] [place] [address] Dr. Yayo Gregg EO # 0.8 103/ul Critically high 0.0-0.7 [facility] Comment on above: Performed By: #### C BC #### [facility] [address] [place] [address] Dr. Yayo Gregg Eosinophils/100 WBC (Bld) 7.6 % Critically high 0.9-7.0 [facility] Comment on above: Performed By: #### C BC #### [facility] [address] [place] [address] Dr. Yayo Gregg Erythrocyte distribution width (RBC) [Ratio] 15.1 % Critically high 11.0-15.0 [facility] Comment on above: Performed By: #### C BC #### [facility] [address] [place] [address] Dr. Yayo Gregg Hematocrit (Bld) [Volume fraction] 32.0 % Critically low 36.0-48.0 [facility] Comment on above: Performed By: #### C BC #### [facility] [address] [place] [address] Dr. Yayo Gregg Hemoglobin (Bld) [Mass/Vol] 10.4 g/dL Critically low 12.0-16.0 [facility] Comment on above: Performed By: #### C BC #### [facility] [address] [place] [address] Dr. Yayo Gregg IG # 0.05 10e3/ul Critically high 0.00-0.03 [facility] Comment on above: Performed By: #### C BC #### [facility] [address] [place] [address] Dr. Yayo Gregg IG % 0.5 % Normal 0.0-0.5 [facility] Comment on above: Performed By: #### C BC #### [facility] [address] [place] [address] Dr. Yayo Gregg LYMPH # 2.9 103/ul Normal 1.2-3.8 [facility] Comment on above: Performed By: #### C BC #### [facility] [address] [address] [address] Yayo Gregg Lymphocytes/100 WBC (Bld) 27.7 % Normal 20.5-60.0 [facility] Comment on above: Performed By: #### C BC #### [facility] [address] [place] [address] Dr. Yayo Gregg MANUAL DIFF REQ NO Normal [facility] Comment on above: Performed By: #### C BC #### [facility] [address] [place] [address] Dr. Yayo Gregg MCH (RBC) [Entitic mass] 26.5 pg Critically low 26.7-34.0 [facility] Comment on above: Performed By: #### C BC #### [facility] [address] [place] [address] Dr. Yayo Gregg MCHC (RBC) [Mass/Vol] 32.5 g/dL Normal 29.9-35.2 [facility] Comment on above: Performed By: #### C BC #### [facility] [address] [place] [address] Dr. Yayo Gregg MCV (RBC) [Entitic vol] 81.4 fL Normal 81.0-99.0 [facility] Comment on above: Performed By: #### C BC #### [facility] [address] [place] [address] Dr. Yayo Gregg MONO # 1.3 103/ul Critically high 0.3-0.8 [facility] Comment on above: Performed By: #### C BC #### [facility] [address] [place] [address] Dr. Yayo Gregg Monocytes/100 WBC (Bld) 12.5 % Critically high 1.7-12.0 [facility] Comment on above: Performed By: #### C BC #### [facility] [address] [place] [address] Dr. Yayo Gregg NEUT # 5.2 103/ul Normal 1.4-6.5 [facility] Comment on above: Performed By: #### C BC #### [facility] [address] [place] [address] Dr. Yayo Gregg Neutrophils/100 WBC (Bld) 50.7 % Normal 43.0-75.0 [facility] Comment on above: Performed By: #### C BC #### [facility] [address] [place] [address] Dr. Yayo Gregg Platelet mean volume (Bld) [Entitic vol] 9.6 fL Normal 9.5-13.5 [facility] Comment on above: Performed By: #### C BC #### [facility] [address] [place] [address] Dr. Yayo Gregg PLT 409 103/ul Normal 150-450 [facility] Comment on above: Performed By: #### C BC #### [facility] [address] [place] [address] Dr. Yayo Gregg RBC 3.93 106/ul Critically low 4.20-5.40 [facility] Comment on above: Performed By: #### C BC #### [facility] [address] [place] [address] Dr. Yayo Gregg WBC 10.3 103/ul Normal 4.0-11.0 [facility] Comment on above: Performed By: #### C BC #### [facility] [address] [place] [address] Dr. Yayo Gregg FERRITINon 03-26-2022 Ferritin [Mass/Vol] 22.0 ng/mL Normal 8.0-252.0 [facility] Comment on above: Performed By: #### I MMUNGL #### [facility] [address] [place] [address] Dr. Yayo Gregg CBC AUTO DIFFon 02-09-2022 BASO # 0.1 103/ul Normal 0.0-0.1 [facility] Comment on above: Performed By: #### C BC #### [facility] [address] [place] [address] Dr. Yayo Gregg Basophils/100 WBC (Bld) 0.7 % Normal 0.2-2.0 [facility] Comment on above: Performed By: #### C BC #### [facility] [address] [address] [address] Yayo Gregg EO # 0.9 103/ul Critically high 0.0-0.7 [facility] Comment on above: Performed By: #### C BC #### [facility] [address] [address] [address] Yayo Gregg Eosinophils/100 WBC (Bld) 7.5 % Critically high 0.9-7.0 [facility] Comment on above: Performed By: #### C BC #### [facility] [address] [place] [address] Dr. Yayo Gregg Erythrocyte distribution width (RBC) [Ratio] 15.1 % Critically high 11.0-15.0 [facility] Comment on above: Performed By: #### C BC #### [facility] [address] [place] [address] Dr. Yayo Gregg Hematocrit (Bld) [Volume fraction] 32.5 % Critically low 36.0-48.0 [facility] Comment on above: Performed By: #### C BC #### [facility] [address] [place] [address] Dr. Yayo Gregg Hemoglobin (Bld) [Mass/Vol] 10.9 g/dL Critically low 12.0-16.0 [facility] Comment on above: Performed By: #### C BC #### [facility] [address] [place] [address] Dr. Yayo Gregg IG # 0.16 10e3/ul Critically high 0.00-0.03 [facility] Comment on above: Performed By: #### C BC #### [facility] [address] [place] [address] Dr. Yayo Gregg IG % 1.3 % Critically high 0.0-0.5 [facility] Comment on above: Performed By: #### C BC #### [facility] [address] [place] [address] Dr. Yayo Gregg LYMPH # 2.9 103/ul Normal 1.2-3.8 [facility] Comment on above: Performed By: #### C BC #### [facility] [address] [place] [address] Dr. Yayo Gregg Lymphocytes/100 WBC (Bld) 24.0 % Normal 20.5-60.0 [facility] Comment on above: Performed By: #### C BC #### [facility] [address] [place] [address] Dr. Yayo Gregg MANUAL DIFF REQ NO Normal [facility] Comment on above: Performed By: #### C BC #### [facility] [address] [place] [address] Dr. Yayo Gregg MCH (RBC) [Entitic mass] 27.2 pg Normal 26.7-34.0 [facility] Comment on above: Performed By: #### C BC #### [facility] [address] [place] [address] Dr. Yayo Gregg MCHC (RBC) [Mass/Vol] 33.5 g/dL Normal 29.9-35.2 [facility] Comment on above: Performed By: #### C BC #### [facility] [address] [place] [address] Dr. Yayo Gregg MCV (RBC) [Entitic vol] 81.0 fL Normal 81.0-99.0 [facility] Comment on above: Performed By: #### C BC #### [facility] [address] [place] [address] Dr. Yayo Gregg MONO # 1.6 103/ul Critically high 0.3-0.8 [facility] Comment on above: Performed By: #### C BC #### [facility] [address] [place] [address] Dr. Yayo Gregg Monocytes/100 WBC (Bld) 13.4 % Critically high 1.7-12.0 [facility] Comment on above: Performed By: #### C BC #### [facility] [address] [place] [address] Dr. Yayo Gregg NEUT # 6.3 103/ul Normal 1.4-6.5 [facility] Comment on above: Performed By: #### C BC #### [facility] [address] [address] [address] Yayo Gregg Neutrophils/100 WBC (Bld) 53.1 % Normal 43.0-75.0 [facility] Comment on above: Performed By: #### C BC #### [facility] [address] [address] [address] Yayo Gregg Platelet mean volume (Bld) [Entitic vol] 9.4 fL Critically low 9.5-13.5 [facility] Comment on above: Performed By: #### C BC #### [facility] [address] [address] [address] Yayo Gregg PLT 426 103/ul Normal 150-450 [facility] Comment on above: Performed By: #### C BC #### [facility] [address] [place] [address] Dr. Yayo Gregg RBC 4.01 106/ul Critically low 4.20-5.40 [facility] Comment on above: Performed By: #### C BC #### [facility] [address] [place] [address] Dr. Yayo Gregg WBC 11.9 103/ul Critically high 4.0-11.0 [facility] Comment on above: Performed By: #### C BC #### [facility] [address] [place] [address] Dr. Yayo Gregg FERRITINon 02-09-2022 Ferritin [Mass/Vol] 36.0 ng/mL Normal 8.0-252.0 [facility] Comment on above: Performed By: #### V ITB12, FETIBC, FERR #### [facility] [address] [address] [address] Yayo Gregg IRON AND TIBCon 02-09-2022 % SATURATION 5.2 % Normal [facility] Comment on above: Performed By: #### V ITB12, FETIBC, FERR #### [facility] [address] [address] [address] Yayo Gregg Iron [Mass/Vol] 16.0 ug/dL Critically low 50.0-170.0 [facility] Comment on above: Performed By: #### V ITB12, FETIBC, FERR #### [facility] [address] [address] [address] Yayo Gregg TIBC DIRECT 305.0 ug/dL Normal 250.0-450.0 [facility] Comment on above: Performed By: #### V ITB12, FETIBC, FERR #### [facility] [address] [place] [address] Dr. Yayo Gregg VITAMIN B12on 02-09-2022 Cobalamin (Vitamin B12) [Mass/Vol] 819.0 pg/mL Normal 193.0-986.0 [facility] Comment on above: Performed By: #### V ITB12, FETIBC, FERR #### [facility] [address] [place] [address] Dr. Yayo Gregg BNPon 01-27-2022 Natriuretic peptide B (Bld) [Mass/Vol] 270.0 pg/mL Normal <=1,800.0 [facility] Comment on above: Performed By: #### I MMUNGL #### [facility] [address] [place] [address] Dr. Yayo Gregg CARDIAC TARAN ADMITon 022 CK [Catalytic activity/Vol] 143 U/L Normal 26-192 [facility] Comment on above: Performed By: #### I MMUNGL #### [facility] [address] [place] [address] Dr. Yayo Gregg CK.MB [Mass/Vol] 2.66 ng/mL Normal <=3.60 [facility] Comment on above: Performed By: #### I MMUNGL #### [facility] [address] [place] [address] Dr. Yayo Gregg HSTROP 4.0 pg/mL Normal 4.0-51.3 [facility] Comment on above: Result Comment: CUT- OFF POINTS HAVE BEEN ESTABLISHED BASED ON THE FOURTH UNIVERSAL DEFINITIONS OF MYOCARDIAL INFARCTION. THE UPPER REFERENCE LIMIT (URL) OF TROPONIN, DEFINED THE 99TH PERCENTILE OF cTnI DISTRIBUTION IN A REFERENCE POPULATION, HAS BEEN CONFIRMED THE DECISION THRESHOLD FOR IN DIAGNOSIS. Performed By: #### I MMUNGL #### [facility] [address] [address] [address] Yayo Gregg CARA 113 ng/mL Critically high 9-82 [facility] Comment on above: Performed By: #### I MMUNGL #### [facility] [address] [address] [address] Yayo Gregg CBC AUTO DIFFon 01-27-2022 BASO # 0.1 103/ul Normal 0.0-0.1 [facility] Comment on above: Performed By: #### C BC #### [facility] [address] [address] [address] Yayo Gregg Basophils/100 WBC (Bld) 0.7 % Normal 0.2-2.0 [facility] Comment on above: Performed By: #### C BC #### [facility] [address] [place] [address] Dr. Yayo Gregg EO # 1.1 103/ul Critically high 0.0-0.7 [facility] Comment on above: Performed By: #### C BC #### [facility] [address] [place] [address] Dr. Yayo Gregg Eosinophils/100 WBC (Bld) 7.3 % Critically high 0.9-7.0 [facility] Comment on above: Performed By: #### C BC #### [facility] [address] [place] [address] Dr. Yayo Gregg Erythrocyte distribution width (RBC) [Ratio] 13.8 % Normal 11.0-15.0 [facility] Comment on above: Performed By: #### C BC #### [facility] [address] [place] [address] Dr. Yayo Gregg Hematocrit (Bld) [Volume fraction] 34.4 % Critically low 36.0-48.0 [facility] Comment on above: Performed By: #### C BC #### [facility] [address] [place] [address] Dr. Yayo Gregg Hemoglobin (Bld) [Mass/Vol] 11.3 g/dL Critically low 12.0-16.0 [facility] Comment on above: Performed By: #### C BC #### [facility] [address] [address] [address] Yayo Gregg IG # 0.09 10e3/ul Critically high 0.00-0.03 [facility] Comment on above: Performed By: #### C BC #### [facility] [address] [address] [address] Yayo Gregg IG % 0.6 % Critically high 0.0-0.5 [facility] Comment on above: Performed By: #### C BC #### [facility] [address] [address] [address] Yayo Gregg LYMPH # 2.5 103/ul Normal 1.2-3.8 [facility] Comment on above: Performed By: #### C BC #### [facility] [address] [place] [address] Dr. Yayo Gregg Lymphocytes/100 WBC (Bld) 16.6 % Critically low 20.5-60.0 [facility] Comment on above: Performed By: #### C BC #### [facility] [address] [address] [address] Yayo Gregg MANUAL DIFF REQ NO Normal [facility] Comment on above: Performed By: #### C BC #### [facility] [address] [place] [address] Dr. Yayo Gregg MCH (RBC) [Entitic mass] 26.7 pg Normal 26.7-34.0 [facility] Comment on above: Performed By: #### C BC #### [facility] [address] [place] [address] Dr. Yayo Gregg MCHC (RBC) [Mass/Vol] 32.8 g/dL Normal 29.9-35.2 [facility] Comment on above: Performed By: #### C BC #### [facility] [address] [place] [address] Dr. Yayo Gregg MCV (RBC) [Entitic vol] 81.1 fL Normal 81.0-99.0 [facility] Comment on above: Performed By: #### C BC #### [facility] [address] [address] [address] Yayo Gregg MONO # 2.1 103/ul Critically high 0.3-0.8 [facility] Comment on above: Performed By: #### C BC #### [facility] [address] [address] [address] Yayo Gregg Monocytes/100 WBC (Bld) 14.0 % Critically high 1.7-12.0 [facility] Comment on above: Performed By: #### C BC #### [facility] [address] [address] [address] Yayo Gregg NEUT # 9.1 103/ul Critically high 1.4-6.5 [facility] Comment on above: Performed By: #### C BC #### [facility] [address] [place] [address] Dr. Yayo Gregg Neutrophils/100 WBC (Bld) 60.8 % Normal 43.0-75.0 [facility] Comment on above: Performed By: #### C BC #### [facility] [address] [address] [address] Yayo Gregg Platelet mean volume (Bld) [Entitic vol] 10.2 fL Normal 9.5-13.5 [facility] Comment on above: Performed By: #### C BC #### [facility] [address] [address] [address] aYyo Gregg PLT 455 103/ul Critically high 150-450 [facility] Comment on above: Performed By: #### C BC #### [facility] [address] [address] [address] Yayo Gregg RBC 4.24 106/ul Normal 4.20-5.40 [facility] Comment on above: Performed By: #### C BC #### [facility] [address] [address] [address] Yayo Gregg WBC 14.9 103/ul Critically high 4.0-11.0 [facility] Comment on above: Performed By: #### C BC #### [facility] [address] [place] [address] Dr. aYyo Gregg [facility] SARS-CoV-2 (COVID-19) RNA CHANTALE+probe Ql (Unsp spec) Not detected Normal NOT DETECTED [facility] Comment on above: Result Comment: [...] for this test is supported by the [place] of Health and Human Service's declaration that [...] By: #### C BC #### [facility] [address] [place] [address] Dr. Yayo Gregg PROF 14(COMP METB)on 022 Albumin [Mass/Vol] 3.0 g/dL Critically low 3.4-5.0 [facility] Comment on above: Performed By: #### I MMUNGL #### [facility] [address] [place] [address] Dr. Yayo Gregg Albumin/Globulin [Mass ratio] 0.9 {ratio} Normal [facility] Comment on above: Performed By: #### I MMUNGL #### [facility] [address] [place] [address] Dr. Yayo Gregg ALP [Catalytic activity/Vol] 95 U/L Normal 46-116 [facility] Comment on above: Performed By: #### I MMUNGL #### [facility] [address] [place] [address] Dr. Yayo Gregg ALT [Catalytic activity/Vol] 28 U/L Normal 14-59 [facility] Comment on above: Performed By: #### I MMUNGL #### [facility] [address] [place] [address] Dr. Yayo Gregg Anion gap [Moles/Vol] 11.9 mmol/L Normal [facility] Comment on above: Performed By: #### I MMUNGL #### [facility] [address] [place] [address] Dr. Yayo Gregg AST [Catalytic activity/Vol] 24 U/L Normal 15-37 [facility] Comment on above: Performed By: #### I MMUNGL #### [facility] [address] [place] [address] Dr. Yayo Gregg Bilirubin [Mass/Vol] 0.3 mg/dL Normal 0.2-1.0 [facility] Comment on above: Performed By: #### I MMUNGL #### [facility] [address] [place] [address] Dr. Yayo Gregg Calcium [Mass/Vol] 8.8 mg/dL Normal 8.5-10.1 [facility] Comment on above: Performed By: #### I MMUNGL #### [facility] [address] [place] [address] Dr. Yayo Gregg Chloride [Moles/Vol] 98 mmol/L Normal 98-107 [facility] Comment on above: Performed By: #### I MMUNGL #### [facility] [address] [place] [address] Dr. Yayo Gregg CO2 [Moles/Vol] 24.6 mmol/L Normal 21.0-32.0 [facility] Comment on above: Performed By: #### I MMUNGL #### [facility] [address] [place] [address] Dr. Yayo Gregg Creatinine [Mass/Vol] 0.91 mg/dL Normal 0.55-1.02 [facility] Comment on above: Performed By: #### I MMUNGL #### [facility] [address] [place] [address] Dr. Yayo Gregg EGFR-AF MONTENEGRIN >60 Normal >=60 [facility] Comment on above: Performed By: #### I MMUNGL #### [facility] [address] [address] [address] Yayo Gregg EGFR-NON AF MONTENEGRIN 59 mL/min/1.73m2 Critically low >=60 [facility] Comment on above: Performed By: #### I MMUNGL #### [facility] [address] [address] [address] Yayo Gregg Globulin (S) [Mass/Vol] 3.3 g/dL Normal [facility] [facility] Comment on above: Performed By: #### I MMUNGL #### [facility] [address] [place] [address] Dr. Yayo Gregg Glucose [Mass/Vol] 95 mg/dL Normal 74-106 [facility] Comment on above: Performed By: #### I MMUNGL #### [facility] [address] [place] [address] Dr. Yayo Gregg Potassium [Moles/Vol] 4.5 mmol/L Normal 3.5-5.1 [facility] Comment on above: Performed By: #### I MMUNGL #### [facility] [address] [place] [address] Dr. Yayo Gregg Protein [Mass/Vol] 6.3 g/dL Critically low 6.4-8.2 [facility] Comment on above: Performed By: #### I MMUNGL #### [facility] [address] [place] [address] Dr. Yayo Gregg Sodium [Moles/Vol] 130 mmol/L Critically low 136-145 [facility] Comment on above: Performed By: #### I MMUNGL #### [facility] [address] [place] [address] Dr. Yayo Gregg Urea nitrogen [Mass/Vol] 12.0 mg/dL Normal 7.0-18.0 [facility] Comment on above: Performed By: #### I MMUNGL #### [facility] [address] [place] [address] Dr. Yayo Gregg Urea nitrogen/Creatinine [Mass ratio] 13.2 mg/mg Normal [facility] Comment on above: Performed By: #### I MMUNGL #### [facility] [address] [place] [address] Dr. Yayo Gregg PROTIMEon 01-27-2022 INR Coag (PPP) [Relative time] 0.96 {INR} Normal [facility] Comment on above: Performed By: #### I MMUNGL #### [facility] [address] [place] [address] Dr. Yayo Gregg INR GUIDELINES SEE BELOW Normal [facility] Comment on above: Result Comment: ASHLEY RED INR: 2.0 - 3.0 CONDITIONS NOT LISTED BELOW 2.5 - 3.5 FOR PROSTHETIC HEART VALVE REPLACEMENT 2.5 - 3.5 RECURRENT THROMBOSIS Performed By: #### I MMUNGL #### [facility] [address] [place] [address] Dr. Yayo Gregg PT Coag (PPP) [Time] 10.4 s Normal 9.0-11.6 [facility] Comment on above: Performed By: #### I MMUNGL #### [facility] [address] [place] [address] Dr. Yayo Gregg PTTon 01-27-2022 aPTT Coag (Bld) [Time] 31.6 s Normal 22.3-36.2 [facility] Comment on above: Performed By: #### I MMUNGL #### [facility] [address] [place] [address] Dr. Yayo Gregg TROPONIN, HIGH SENSITIVITYon 01-27-2022 HSTROP 4.7 pg/mL Normal 4.0-51.3 [facility] Comment on above: Result Comment: CUT- OFF POINTS HAVE BEEN ESTABLISHED BASED ON THE FOURTH UNIVERSAL DEFINITIONS OF MYOCARDIAL INFARCTION. THE UPPER REFERENCE LIMIT (URL) OF TROPONIN, DEFINED THE 99TH PERCENTILE OF cTnI DISTRIBUTION IN A REFERENCE POPULATION, HAS BEEN CONFIRMED THE DECISION THRESHOLD FOR IN DIAGNOSIS. Performed By: #### H STROPN #### [facility] [address] [place] [address] Dr. Yayo Gregg XR CHEST 1 Von [...] by: ANTHONY BAEZ Date: 2022-01-27 11:47 Normal [facility] XR LSPINE 2_3 VIEWSon 2021 [...] BENJAMIN GUNN Date: 2021-12-18 14:19 Normal [facility] BASIC METABOLIC PANEL(BMP)on 01-06-2018 Anion gap 12 mmol/L Normal - [facility] Comment on above: Performed By: #### C AMANDA SHERIFFCGR ####MAIN LABCLIA:[id number] [place] [address] BUN (urea nitrogen) 17 mg/dL Normal - [facility] Comment on above: Performed By: #### C SHARITA ZCBCGR ####MAIN LABCLIA:[id number] [place] [address] BUN/Creatinine Ratio 22.1 mg/mg Normal [facility] Comment on above: Performed By: #### C SHARITA ZCBCGR ####MAIN LABCLIA:[id number] [place] [address] Calcium 7.9 mg/dL Low 8.8-10.2 [facility] Comment on above: Performed By: #### C SHARITA ZCBCGR ####MAIN LABCLIA:[id number] [place] [address] Chloride 101 mmol/L Normal 98-107 [facility] Comment on above: Performed By: #### C AMANDA SHERIFFCGR ####MAIN LABCLIA:[id number] [place] [address] CO2 24 mmol/L Normal 22-29 [facility] Comment on above: Performed By: #### C AMANDA SHERIFFCGR ####MAIN LABCLIA:[id number] [place] [address] Creatinine 0.77 mg/dL Normal 0.50-0.90 [facility] Comment on above: Performed By: #### VAMSI RUFFGR ####MAIN LABCLIA:[id number] [place] [address] eGFR (MDRD) 77 /1.73 m2 Normal >60 mL/min [facility] Comment on above: Result Comment: Norm al RangeStage Description:1 Normal or Increased GFR >=902 Mild Decrease in GFR 60-903 Moderately Decreased GFR 30-594 Severely Decreased GFR 15-295 Kidney Failure <15 Performed By: #### VMASI RUFFGR ####MAIN LABCLIA:[id number] [place] [address] Glucose mass conc 89 mg/dL Normal 74-109 [facility] Comment on above: Performed By: #### VAMSI RUFFGR ####MAIN LABCLIA:[id number] [place] [address] Potassium molar conc 4.4 mmol/L Normal 3.5-5.1 [facility] Comment on above: Performed By: #### VAMSI RUFFGR ####MAIN LABCLIA:[id number] [place] [address] Sodium 133 mmol/L Low 136-145 [facility] Comment on above: Performed By: #### MELONY RUFF ####MAIN LABCLIA:[id number] [place] [address] CBC/DIFF GROUPon 01-06-2018 Anisocytosis presence 1+ Normal [facility] Comment on above: Performed By: #### C SHARITA, ZCBCGR ####MAIN LABCLIA:[id number] [place] [address] HYPOCHROMASIA 1+ Normal [facility] Comment on above: Performed By: #### C SHARITA ZCBCGR ####MAIN LABCLIA:[id number] [place] [address] NORMOCHROMIC NO Normal [facility] Comment on above: Performed By: #### C SHARITA, ZCBCGR ####MAIN LABCLIA:[id number] [place] [address] NORMOCYTIC NO [facility] Comment on above: Performed By: #### C SHARITA, ZCBCGR ####MAIN LABCLIA:[id number] [place] [address] Platelets NORMAL [facility] Comment on above: Performed By: #### C SHARITA ZCBCGR ####MAIN LABCLIA:[id number] [place] [address] BAND NEUTROPHILS #(MANUAL) 152 /cmm Normal <648 [facility] Comment on above: Performed By: #### C SHARITA ZCBCGR ####MAIN LABCLIA:[id number] [place] [address] Eosinophils 456 /cmm High <432 [facility] Comment on above: Performed By: #### C SHARITA ZCBCGR ####MAIN LABCLIA:[id number] [place] [address] Eosinophils/100 leukocytes 6 % High <4 [facility] Comment on above: Performed By: #### C SHARITA ZCBCGR ####MAIN LABCLIA:[id number] [place] [address] Lymphocytes 1748 /cmm Normal 960-4752 [facility] Comment on above: Performed By: #### C SHARITA ZCBCGR ####MAIN LABCLIA:[id number] [place] [address] Lymphocytes/100 leukocytes 23 % Normal 20-44 [facility] Comment on above: Performed By: #### Vladimir SHERIFF ZCBCGR ####MAIN LABCLIA:[id number] [facility] [address] METAMYELOCYTES #(MANUAL) 76 /cmm High 0 [facility] Comment on above: Performed By: #### Yaquelin RUFFCBCGR ####MAIN LABCLIA:[id number] [place] [address] Metamyelocytes/100 leukocytes 1 % High 0 [facility] Comment on above: Performed By: #### Yaquelin RUFFCBCGR ####MAIN LABCLIA:[id number] [place] [address] Monocytes 1292 /cmm High 96-972 [facility] Comment on above: Performed By: #### Yaquelin RUFFCBCGR ####MAIN LABCLIA:[id number] [place] [address] Monocytes/100 leukocytes 17 % High 2-9 [facility] Comment on above: Performed By: #### Yaquelin RUFFCBCGR ####MAIN LABCLIA:[id number] [place] [address] Neutrophils 3876 /cmm Normal 3687-1187 [facility] Comment on above: Performed By: #### Yaquelin RUFFCBCGR ####MAIN LABCLIA:[id number] [place] [address] Neutrophils band/100 leukocytes 2 % Normal <6 [facility] Comment on above: Performed By: #### Yaquelin RUFFCBCGR ####MAIN LABCLIA:[id number] [place] [address] Neutrophils/100 WBC Auto (Bld) 51 % Normal 50-70 [facility] Comment on above: Performed By: #### Yaquelin RUFFCBCGR ####MAIN LABCLIA:[id number] [place] [address] TOTAL CELLS COUNTED 100 Normal [facility] Comment on above: Performed By: #### C SHARITA ZCBCGR ####MAIN LABCLIA:[id number] [place] [address] Erythrocyte distribution width Auto Ratio (RBC) 13.0 % Normal 11.5-14.5 [facility] Comment on above: Performed By: #### C SHARITA ZCBCGR ####MAIN LABCLIA:[id number] [place] [address] Erythrocytes (RBC) 3.49 10 6/cmm Low 4.20-5.40 [facility] Comment on above: Performed By: #### C SHARITA ZCBCGR ####MAIN LABCLIA:[id number] [place] [address] Hematocrit (HCT) 29.4 % Low 38.0-47.0 [facility] Comment on above: Performed By: #### C SHARITA ZCBCGR ####MAIN LABCLIA:[id number] [place] [address] Hemoglobin mass conc (Bld) 10.1 g/dL Low 12.0-16.4 [facility] Comment on above: Performed By: #### C SHARITA ZCBCGR ####MAIN LABCLIA:[id number] [place] [address] MCH 34.5 g/dL Normal 32.0-36.0 [facility] Comment on above: Performed By: #### C SHARITA ZCBCGR ####MAIN LABCLIA:[id number] [place] [address] MCH 29.1 pg Normal 27.0-31.0 [facility] Comment on above: Performed By: #### C SHARITA ZCBCGR ####MAIN LABCLIA:[id number] [place] [address] MCV 84.3 fL Normal 80.0-96.0 [facility] Comment on above: Performed By: #### C BC, ZCBCGR ####MAIN LABCLIA:[id number] [place] [address] Platelets 359 10 3/cmm Normal 130-400 [facility] Comment on above: Performed By: #### C BC, ZCBCGR ####MAIN LABCLIA:[id number] [place] [address] WBC (Leukocytes) 7.6 10 3/cmm Normal 4.8-10.8 [facility] Comment on above: Performed By: #### C , ZCBCGR ####MAIN LABCLIA:[id number] [place] [address] FREE T4 (FREE THYROXINE)on 0 01-06-2018 Thyroxine (T4) free 2.46 ng/dL High 0.93-1.7 [facility] Comment on above: Performed By: #### C , ZCBCGR ####MAIN LABCLIA:[id number] [place] [address] IM Progress Noteon 8 IM Progress Note [address] [place], [place] [address] TANGELA MOSS 77 [id number] Donnell Barton MD 4W / [id number] 1940 Report #: [id number] Hospitalist Progress Note Date/Time: 01/06/18805 Report Status: [...] fine and wants to go back to [place]. Her will be driving. - Reviewed laboratory [...] have her follow-up with her physician in [place]. (2) Hyponatremia Status: Improved Plan: Sodium of 133-asymptomatic urine sodium slightly elevated at 35. (3) Essential hypertension Status: Stable (4) Hypothyroidism Plan: Suppressed TSH, her physician from [place] just called her in down dosed her [...] Cosigned By: Cosigned Date/Time: Normal [facility] T3 FREEon 01-06-2018 Triiodothyronine (T3) free 5.92 pg/mL High 2.0-4.4 [facility] Comment on above: Performed By: #### C VAMSI SHERIFFGR ####MAIN LABCLIA:[id number] [place] [address] CBC/DIFF GROUPon 01-05-2018 NORMOCHROMIC YES Normal [facility] Comment on above: Performed By: #### C VAMSI SHERIFFGR ####MAIN LABCLIA:[id number] [place] [address] NORMOCYTIC YES Normal [facility] Comment on above: Performed By: #### Vladimir SHERIFF ZCBCGR ####MAIN LABCLIA:[id number] [place] [address] Platelets NORMAL Normal [facility] Comment on above: Performed By: #### C SHARITA ZCBCGR ####MAIN LABCLIA:[id number] [place] [address] BAND NEUTROPHILS #(MANUAL) 414 /cmm Normal <648 [facility] Comment on above: Performed By: #### C SHARITA ZCBCGR ####MAIN LABCLIA:[id number] [place] [address] Eosinophils 552 /cmm High <432 [facility] Comment on above: Performed By: #### Vladimir SHERIFF ZCBCGR ####MAIN LABCLIA:[id number] [place] [address] Eosinophils/100 leukocytes 4 % Normal <4 [facility] Comment on above: Performed By: #### Vladimir SHERIFF ZCBCGR ####MAIN LABCLIA:[id number] [place] [address] Lymphocytes 690 /cmm Low 960-4752 [facility] Comment on above: Performed By: #### Vladimir SHERIFF ZCBCGR ####MAIN LABCLIA:[id number] [place] [address] Lymphocytes/100 leukocytes 5 % Low 20-44 [facility] Comment on above: Performed By: #### Vladimir SHERIFF ZCBCGR ####MAIN LABCLIA:[id number] [place] [address] Monocytes 1242 /cmm High 96-972 [facility] Comment on above: Performed By: #### Vladimir SHERIFF ZCBCGR ####MAIN LABCLIA:[id number] [place] [address] Monocytes/100 leukocytes 9 % Normal 2-9 [facility] Comment on above: Performed By: #### Vladimir SHERIFF ZCBCGR ####MAIN LABCLIA:[id number] [place] [address] Neutrophils 36237 /cmm High 7423-0638 [facility] Comment on above: Performed By: #### VAMSI RUFFGR ####MAIN LABCLIA:[id number] [place] [address] Neutrophils band/100 leukocytes 3 % Normal <6 [facility] Comment on above: Performed By: #### VAMSI RUFFGR ####MAIN LABCLIA:[id number] [place] [address] Neutrophils/100 WBC Auto (Bld) 79 % High 50-70 [facility] Comment on above: Performed By: #### VAMSI RUFFGR ####MAIN LABCLIA:[id number] [place] [address] TOTAL CELLS COUNTED 100 Normal [facility] Comment on above: Performed By: #### VAMSI RUFFGR ####MAIN LABCLIA:[id number] [place] [address] Hematocrit (HCT) 36.0 % Low 38.0-47.0 [facility] Comment on above: Performed By: #### MELONY RUFF ####MAIN LABCLIA:[id number] [place] [address] Hemoglobin mass conc (Bld) 12.2 g/dL Normal 12.0-16.4 [facility] Comment on above: Performed By: #### AMANDA RUFFCGR ####MAIN LABCLIA:[id number] [place] [address] MCH 28.6 pg Normal 27.0-31.0 [facility] Comment on above: Performed By: #### VAMSI RUFFGR ####MAIN LABCLIA:[id number] [place] [address] MCV 84.1 fL Normal 80.0-96.0 [facility] Comment on above: Performed By: #### MELONY RUFF ####MAIN LABCLIA:[id number] [place] [address] WBC (Leukocytes) 13.8 10 3/cmm High 4.8-10.8 [facility] Comment on above: Performed By: #### C SHARITA, AMANDACGR ####MAIN LABCLIA:[id number] [place] [address] CHEST 2 VIEWSon 01-05-2018 CHEST [address] [id number]____ Pt Location: 4W/ ADM IN Pt RM#: [id number] MR #: [id number] DATE: 01/05/18 1236 ADM#: [id number] #: [id number] JANET MOSSOB: 1940 Age/Sex: 77 / F [...] ROSY Salvador; Doctor,No; Donnell Barton MD Normal [facility] COMPLETE BLOOD COUNTon 01-05 Erythrocyte distribution width Auto Ratio (RBC) 12.7 % Normal 11.5-14.5 [facility] Comment on above: Performed By: #### C BC, ZCBCGR ####MAIN LABCLIA:[id number] [place] [address] Erythrocytes (RBC) 4.28 10 6/cmm Normal 4.20-5.40 [facility] Comment on above: Performed By: #### C BC, ZCBCGR ####MAIN LABCLIA:[id number] [place] [address] MCH 34.0 g/dL Normal 32.0-36.0 [facility] Comment on above: Performed By: #### C BC, ZCBCGR ####MAIN LABCLIA:[id number] [place] [address] Platelets 423 10 3/cmm High 130-400 [facility] Comment on above: Performed By: #### C BC, ZCBCGR ####MAIN LABCLIA:[id number] [place] [address] COMPREHENSIVE METABOLIC PANE Umberto 01-05-2018 Alanine aminotransferase (ALT) 15 U/L Normal 0-33 [facility] Comment on above: Performed By: #### C MP, MG ####MAIN LABCLIA:[id number] [place] [address] Albumin 3.3 g/dL Normal 3.0-4.5 [facility] Comment on above: Performed By: #### C MP, MG ####MAIN LABCLIA:[id number] [place] [address] Albumin/Globulin Ratio 1.2 {ratio} Normal 1-1.4 [place] Comment on above: Performed By: #### C MP, MG ####MAIN LABCLIA:[id number] [place] [address] Alkaline phosphatase (ALP) 76 U/L Normal 35-104 [facility] Comment on above: Performed By: #### C MP, MG ####MAIN LABCLIA:[id number] [facility] [address] Anion gap 15 mmol/L Normal 9-18 [facility] Comment on above: Performed By: #### C MP, MG ####MAIN LABCLIA:[id number] [facility] [address] Aspartate aminotransferase (AST) 16 U/L Normal 0-32 [facility] Comment on above: Performed By: #### C MP, MG ####MAIN LABCLIA:[id number] [facility] [address] Bilirubin (total) 0.4 mg/dL Normal 0.2-1.2 [facility] Comment on above: Performed By: #### C MP, MG ####MAIN LABCLIA:[id number] [place] [address] BUN (urea nitrogen) 26 mg/dL High 8-23 [facility] Comment on above: Performed By: #### C MP, MG ####MAIN LABCLIA:[id number] [place] [address] BUN/Creatinine Ratio 22.2 mg/mg Normal [facility] Comment on above: Performed By: #### C MP, MG ####MAIN LABCLIA:[id number] [facility] [address] Calcium 8.5 mg/dL Low 8.8-10.2 [facility] Comment on above: Performed By: #### C MP, MG ####MAIN LABCLIA:[id number] [facility] [address] Chloride 90 mmol/L Low 98-107 [facility] Comment on above: Performed By: #### C MP, MG ####MAIN LABCLIA:[id number] [facility] [address] CO2 26 mmol/L Normal 22-29 [facility] Comment on above: Performed By: #### C MP, MG ####MAIN LABCLIA:[id number] [place] [address] Creatinine 1.17 mg/dL High 0.50-0.90 [facility] Comment on above: Performed By: #### C MP, MG ####MAIN LABCLIA:[id number] [place] [address] eGFR (MDRD) 47 /1.73 m2 Low >60 mL/min [facility] Comment on above: Result Comment: Norm al RangeStage Description:1 Normal or Increased GFR >=902 Mild Decrease in GFR 60-903 Moderately Decreased GFR 30-594 Severely Decreased GFR 15-295 Kidney Failure <15 Performed By: #### C MP, MG ####MAIN LABCLIA:[id number] [place] [address] Globulin 2.7 g/dL Normal 2.3-3.5 [facility] Comment on above: Performed By: #### C MP, MG ####MAIN LABCLIA:[id number] [place] [address] Glucose mass conc 136 mg/dL High 74-109 [facility] Comment on above: Performed By: #### C MP, MG ####MAIN LABCLIA:[id number] [place] [address] Potassium molar conc 4.5 mmol/L Normal 3.5-5.1 [facility] Comment on above: Performed By: #### C MP, MG ####MAIN LABCLIA:[id number] [place] [address] Protein 6.0 g/dL Low 6.4-8.3 [facility] Comment on above: Performed By: #### C MP, MG ####MAIN LABCLIA:[id number] [place] [address] Sodium 126 mmol/L Low 136-145 [facility] Comment on above: Performed By: #### C MP, MG ####MAIN LABCLIA:[id number] [place] [address] CT HEAD WOon 01-05-2018 CT HEAD WO [address] [phone]____ Pt Location: 4W/ ADM IN Pt RM#: [id number] MR #: [id number] DATE: 01/05/18 1236 ADM#: [id number] #: [id number] JANET MOSSOB: 1940 Age/Sex: 77 / F [...] matter.REPORT# [id number] READ BY: Cielo Pacheco M.D. [id number] REPORT RELEASED BY: Cielo Pacheco M.D. 01/05/18 1502Transcribed Date/Time: 01/05/18 1339 PLPCC: ROSY Salvador; Doctor,No; Donnell Barton MD [facility] Emergency Room Visit Reporto n 01-05-2018 Emergency Room Visit Report [address] [place], [place] [address] TANGELA MOSS 1940 (77 F) [id number] Helio Hoang 4W Report #: [id number] PCP: No Doctor Emergency Room Visit Report [...] reports feeling dizziness and near syncope at [facility]. Pt reports recent bronchitis that [...] Allergy Mild Rash Verified 01/05/18 12:40 Antibiotics) Rmcdipp-Nqb-Ohw Reductase Allergy Unknown Verified 01/05/18 12:40 Inhibitor [...] PO BID 01/05/18 01/05/18 raNITIdine HCl [Acid Print Color Operator] 150 mg PO BID 01/05/18 01/05/18 [...] % (Manual) (<4) % Neutrophils # (Manual) ([id number]) /cmm Band Neutrophils # (<648) /cmm Lymphocytes [...] Appearance Clear Urine pH 7.0 Ur Specific Flasher <=1.005 Urine Protein Negative (NEGATIVE) Urine Glucose [...] (Manual) 4 (<4) % Neutrophils # (Manual) 48686 H ([id number]) /cmm Band Neutrophils # 414 (<648) /cmm [...] Color Urine Appearance Urine pH Ur Specific Flasher Urine Protein (NEGATIVE) Urine Glucose (UA) (NEGATIVE) [...] CONTINUOUS Routine Ca 01/05/18 16:08 Active MOISES Talavera Thigh CONTIN Routine Ca 01/05/18 16:08 Active [...] @ 999 mls/hr IV .Q1H1M ANAYA Stop: 06/28/18 14:30 Last Infusion: 01/05/18 14:44 Dose: 0 [...] inhaler. This was obtained by the [facility] pharmacy in [facility]. 01/05/18 14:40 I discussed this patient [...] & Physicalon 018 History & Physical [address] [place] [id number] TANGELA MOSS [id number] Donnell Barton MD 4W / [id number] 1940 Report #: [id number] Admission Date: 01/05/18 History Physical Date/Time: 01/05/18 [...] episode. Patient is visiting this area from [place] in [place] [...] asymptomatic. Evaluation emergency room consisted of a color television console monitor which shows normal sinus rhythm, EKG [...] Allergy Mild Rash Verified 01/05/18 12:40 Antibiotics) Jukvmzl-Ibm-Vrr Reductase Allergy Unknown Verified 01/05/18 12:40 Inhibitor [...] PO BID 01/05/18 01/05/18 raNITIdine HCl [Acid Print Color Operator] 150 mg PO BID 01/05/18 01/05/18 [...] Cosigned By: Cosigned Date/Time: Normal [facility] MAGNESIUMon 01-05-2018 Magnesium 2.1 mg/dL Normal 1.6-2.6 [facility] Comment on above: Performed By: #### C MP, MG ####MAIN LABCLIA:[id number] [place] [address] SODIUM,URINE RANDOMon 2017 SODIUM,URINE RANDOM 35 mmol/L Normal [facility] Comment on above: Order Comment: COLLE CTED BY: Sherine Tenorio Result Comment: The reference range has not been established for this test. Performed By: #### C BC, ZCBCGR ####MAIN LABCLIA:[id number] [place] [address] THYROID STIMULATING HORMONEo n 01-05-2018 Thyroid stimulating hormone (TSH) 0.16 uIU/mL Low 0.27-4.20 [facility] Comment on above: Performed By: #### C BC, ZCBCGR ####MAIN LABCLIA:[id number] [place] [address] TROPONIN Ton 01-05-2018 Troponin T.cardiac mass conc ug/L Normal <0.010 [facility] Comment on above: Result Comment: Valu [...] Performed By: #### C BC, ZCBCGR ####MAIN LABCLIA:[id number] [place] [address] Troponin T.cardiac mass conc ug/L Normal <0.010 [facility] Comment on above: Result Comment: Valu [...] hours. Performed By: #### T ROPT ####MAIN LABCLIA:[id number] [facility] [place] [address] URINALYSISon 01-05-2018 UA APPEARANCE CLEAR Normal [facility] Comment on above: Order Comment: COLLE CTED BY: Tye acostaOID-MIDSTREAM Performed By: #### U A ####MAIN LABCLIA:[id number] [facility] [place] [address] UA BACTERIA NONE Normal NONE [facility] Comment on above: Order Comment: COLLE CTED BY: Tye acostaOID-MIDSTREAM Performed By: #### U A ####MAIN LABCLIA:[id number] [facility] [address] UA SQUAMOUS EPITHELIAL 0-2 Normal [facility] Comment on above: Order Comment: COLLE CTED BY: Tye acostaOID-MIDSTREAM Performed By: #### U A ####MAIN LABCLIA:[id number] [facility] [address] UA WBC 0-2 Normal 0-2 [facility] Comment on above: Order Comment: COLLE CTED BY: Tye acostaOID-MIDSTREAM Performed By: #### U A ####MAIN LABCLIA:[id number] [facility] [address] Urine, color YELLOW Normal [facility] Comment on above: Order Comment: COLLE CTED BY: Tye acostaOID-MIDSTREAM Performed By: #### U A ####MAIN LABCLIA:[id number] [place] [address] Urine, erythrocytes 0-2 Normal 0-2 [facility] Comment on above: Order Comment: COLLE CTED BY: Tye acostaOID-MIDSTREAM Performed By: #### U A ####MAIN LABCLIA:[id number] [place] [address] UA BILIRUBIN Negative Normal NEGATIVE [facility] Comment on above: Order Comment: COLLE CTED BY: Tye acostaOID-MIDSTREAM Performed By: #### U A ####MAIN LABCLIA:[id number] [place] [address] UA BLOOD Negative Normal NEGATIVE [facility] Comment on above: Order Comment: COLLE CTED BY: Tye acostaOID-MIDSTREAM Performed By: #### U A ####MAIN LABCLIA:[id number] [place] [address] UA LEUKOCYTE ESTERASE TRACE Normal NEGATIVE [facility] Comment on above: Order Comment: COLLE CTED BY: Tye acostaOID-MIDSTREAM Performed By: #### U A ####MAIN LABCLIA:[id number] [place] [address] UA NITRITES Negative Normal NEGATIVE [facility] Comment on above: Order Comment: COLLE CTED BY: Tye acostaOID-MIDSTREAM Performed By: #### U A ####MAIN LABCLIA:[id number] [place] [address] UA PH 7.0 Normal [facility] Comment on above: Order Comment: COLLE CTED BY: Tye acostaOID-MIDSTREAM Performed By: #### U A ####MAIN LABCLIA:[id number] [place] [address] UA PROTEIN Negative Normal NEGATIVE [facility] Comment on above: Order Comment: COLLE CTED BY: Tye acostaOID-MIDSTREAM Performed By: #### U A ####MAIN LABCLIA:[id number] [place] [address] UA SPECIFIC GRAVITY <=1.005 Normal [facility] Comment on above: Order Comment: COLLE CTED BY: dave,dVOID-MIDSTREAM Performed By: #### U A ####MAIN LABCLIA:[id number] [facility] [address] UA UROBILINOGEN 0.2 mg/dL Normal 0.0-1.0 [facility] Comment on above: Order Comment: COLLE CTED BY: davedVOID-MIDSTREAM Performed By: #### U A ####MAIN LABCLIA:[id number] [facility] [address] Urine, glucose Negative Normal NEGATIVE [facility] Comment on above: Order Comment: COLLE CTED BY: davedVOID-MIDSTREAM Performed By: #### U A ####MAIN LABCLIA:[id number] [place] [address] Urine, ketones presence Negative Normal NEGATIVE [facility] Comment on above: Order Comment: COLLE CTED BY: davedVOID-MIDSTREAM Performed By: #### U A ####MAIN LABCLIA:[id number] [place] [address] URINE SOURCE VOID-MIDSTREAM Normal [facility] Comment on above: Order Comment: COLLE CTED BY: davedVOID-MIDSTREAM Performed By: #### U A ####MAIN LABCLIA:[id number] [place] [address] VASCULAR RISK PANELon 2017 Cholesterol 180 mg/dL Normal 0-199 [facility] Comment on above: Order Comment: Comme nts: Use blood from ED if available Performed By: #### Yaquelin RUFFCBCGR ####MAIN LABCLIA:[id number] [place] [address] HDL Cholesterol 42 mg/dL Low >65 [facility] Comment on above: Order Comment: Comme nts: Use blood from ED if available Performed By: #### C SHARITA, ZCBCGR ####MAIN LABCLIA:[id number] [place] [address] LDL Cholesterol 98 mg/dL Normal <129 [facility] Comment on above: Order Comment: Comme nts: Use blood from ED if available Performed By: #### C BC, ZCBCGR ####MAIN LABCLIA:[id number] [place] [address] Triglyceride 202 mg/dL High 0-199 [facility] Comment on above: Order Comment: Comme nts: Use blood from ED if available Performed By: #### C BC, ZCBCGR ####MAIN LABCLIA:[id number] [place] [address] VLDL CHOLESTEROL 40 mg/dL Normal 5-40 [facility] Comment on above: Order Comment: Comme nts: Use blood from ED if available Performed By: #### C BC, ZCBCGR ####MAIN LABCLIA:[id number] [place] [address] Vital Signs Date Time Vital Sign Value Performing Clinician Facility 04-16-2025 14:11 Body height 152.4 cm Kvng Ball DO Work Phone: [facility] 04-16-2025 [id number] Body mass index (BMI) [Ratio] 26.9 kg/m2 Kvng Ball DO Work Phone: [facility] 04-16-2025 14:11040 Body weight 62.59 kg Kvng Ball DO Work Phone: [facility] 04-16-2025 [id number] Diastolic blood pressure 83 mm[Hg] Kvng Ball DO Work Phone: [facility] 04-16-2025 14:11-0400 Heart rate 73 /min Kvng Ball DO Work Phone: [facility] 04-16-2025 [id number] Respiratory rate 12 /min Kvng Ball DO Work Phone: [facility] 04-16-2025 [id number] Systolic blood pressure 124 mm[Hg] Kvng Ball DO Work Phone: [facility] 01-10-2025 10:07040 Body height 152.4 cm Kvng Ball DO Work Phone: [facility] 01-10-2025 10:07-0400 Body mass index (BMI) [Ratio] 27 kg/m2 Kvng Ball DO Work Phone: [facility] 01-10-2025 10:07-0400 Body weight 62.7 kg Kvng Ball DO Work Phone: [facility] 01-10-2025 10:07-0400 Diastolic blood pressure 78 mm[Hg] Kvng Ball DO Work Phone: [facility] 01-10-2025 10:07-0400 Heart rate 61 /min Kvng Ball DO Work Phone: [facility] 01-10-2025 10:07-0400 Respiratory rate 12 /min Kvng Ball DO Work Phone: [facility] 01-10-2025 10:07-0400 Systolic blood pressure 121 mm[Hg] Kvng Ball DO Work Phone: [facility] 10-04-2024 10:29-0400 Body height 152.4 cm [facility] 10-04-2024 10:29-0400 Body mass index (BMI) [Ratio] 27.3 kg/m2 [facility] 10-04-2024 10:29-0400 Body weight 63.55 kg [facility] 10-04-2024 10:29-0400 Diastolic blood pressure 84 mm[Hg] [facility] 10-04-2024 10:29-0400 Heart rate 64 /min [facility] 10-04-2024 10:29-0400 Respiratory rate 12 /min [facility] 10-04-2024 10:29-0400 SaO2% (BldA) [Mass fraction] 100 % [facility] 10-04-2024 10:29-0400 Systolic blood pressure 133 mm[Hg] [facility] 06-21-2024 10:58-0500 Body height 152.4 cm Alyssa Corona LENS GENERATOR Work Phone: [facility] 06-21-2024 10:58-0500 Body mass index (BMI) [Ratio] 27.15 kg/m2 Alyssa Corona LENS GENERATOR Work Phone: [facility] 06-21-2024 10:58-0500 Body weight 63.05 kg Alyssa Corona LENS GENERATOR Work Phone: [facility] 06-21-2024 10:58-0500 Diastolic blood pressure 62 mm[Hg] Alyssa Corona LENS GENERATOR Work Phone: [facility] 06-21-2024 10:58-0500 Heart rate 56 /min Alyssa Corona LENS GENERATOR Work Phone: [facility] 06-21-2024 10:58-0500 SaO2% (BldA) [Mass fraction] 96 % Alyssa Corona LENS GENERATOR Work Phone: [facility] 06-21-2024 10:58-0500 Systolic blood pressure 116 mm[Hg] Alyssa Corona LENS GENERATOR Work Phone: [facility] 03-29-2024 08:54-0400 Body height 152.4 cm Christopher Genesis DO Work Phone: [facility] 03-29-2024 08:54-0400 Body mass index (BMI) [Ratio] 26.95 kg/m2 Christopher Genesis DO Work Phone: [facility] 03-29-2024 08:54-0400 Body weight 62.6 kg Christopher Genesis DO Work Phone: [facility] 03-29-2024 08:54-0400 Diastolic blood pressure 78 mm[Hg] Christopher Genesis DO Work Phone: [facility] 03-29-2024 08:54-0400 Systolic blood pressure 112 mm[Hg] Christopher Genesis DO Work Phone: [facility] 03-01-2024 14:02-0400 Body height 152.4 cm Christopher Genesis DO Work Phone: [facility] 03-01-2024 14:02-0400 Body mass index (BMI) [Ratio] 27.15 kg/m2 Christopher Genesis DO Work Phone: [facility] 03-01-2024 14:02-0400 Body weight 63.05 kg Christpaul Hurtado DO Work Phone: [facility] 03-01-2024 14:02-0400 Diastolic blood pressure 86 mm[Hg] Todder Genesis DO Work Phone: [facility] 03-01-2024 14:02-0400 Systolic blood pressure 128 mm[Hg] Lorelei Kelloggett DO Work Phone: [facility] 01-02-2024 11:39-0400 Body height 152.4 cm DO Kvng Ball Work Phone: [facility] 01-02-2024 11:39-0400 Body mass index (BMI) [Ratio] 26.6 kg/m2 DO Kvng Ball Work Phone: [facility] 01-02-2024 11:39-0400 Body weight 61.91 kg DO Kvng Ball Work Phone: [facility] 01-02-2024 11:39-0400 Diastolic blood pressure 85 mm[Hg] DO Kvng Ball Work Phone: [facility] 01-02-2024 11:39-0400 Heart rate 66 /min DO Kvng Ball Work Phone: [facility] 01-02-2024 11:39-0400 Respiratory rate 12 /min DO Kvng Ball Work Phone: [facility] 01-02-2024 11:39-0400 Systolic blood pressure 124 mm[Hg] DO Kvng Ball Work Phone: [facility] 05-27-2023 11:00-0500 Body height 152.4 cm Kvng Ball Other [facility] Other 05-27-2023 11:00-0500 Diastolic blood pressure 84 mm[Hg] Kvng Ball Other [facility] Other 05-27-2023 11:00-0500 Systolic blood pressure 124 mm[Hg] Kvng Ball Other [facility] Other 03-04-2023 13:45-0400 Body height 152.4 cm Kvng Ball Other [facility] Other 03-04-2023 13:45-0400 Body mass index (BMI) [Ratio] 28.47 kg/m2 Kvng Ball Other [facility] Other 03-04-2023 13:45-0400 Body weight 66.13 kg Kvng Ball Other [facility] Other 03-04-2023 13:45-0400 Diastolic blood pressure 80 mm[Hg] Kvng Ball Other [facility] Other 03-04-2023 13:45-0400 Respiratory rate 12 /min Kvng Ball Other [facility] Other 03-04-2023 13:45-0400 Systolic blood pressure 117 mm[Hg] Kvng Ball Other [facility] Other 02-22-2023 11:00-0400 Body height 152.4 cm Kvng Ball Other [facility] Other 02-22-2023 11:00-0400 Body mass index (BMI) [Ratio] 28.39 kg/m2 Kvng Ball Other [facility] Other 02-22-2023 11:00-0400 Body weight 65.95 kg Kvng Ball Other [facility] Other 02-22-2023 11:00-0400 Diastolic blood pressure 83 mm[Hg] Kvng Ball Other [facility] Other 02-22-2023 11:00-0400 Respiratory rate 12 /min Kvng Ball Other [facility] [employer] Other 02-22-2023 11:00-0400 Systolic blood pressure 132 mm[Hg] Kvng Ball Other [facility] Other 01-24-2023 09:18-0400 Diastolic blood pressure 72 mm[Hg] DO Kvng Ball Work Phone: [facility] 01-24-2023 09:18-0400 Heart rate 56 /min DO Kvng Ball Work Phone: [facility] 01-24-2023 09:18-0400 Respiratory rate 14 /min DO Kvng Ball Work Phone: [facility] 01-24-2023 09:18-0400 SaO2% (BldA) [Mass fraction] 98 % DO Kvng Ball Work Phone: [facility] 01-24-2023 09:18-0400 Systolic blood pressure 126 mm[Hg] DO Kvng Ball Work Phone: [facility] 01-24-2023 07:44-0400 Body height 154.94 cm DO Kvng Ball Work Phone: [facility] 01-24-2023 07:44-0400 Body temperature 97.8 [degF] DO Kvng Ball Work Phone: [facility] 01-24-2023 07:44-0400 Body weight 65.31 kg DO Kvng Ball Work Phone: [facility] 11-18-2022 12:00-0400 Body height 152.4 cm Kvng Ball Other [facility] Other 11-18-2022 12:00-0400 Body mass index (BMI) [Ratio] 28.74 kg/m2 Kvng Ball Other [facility] Other 11-18-2022 12:00-0400 Body weight 66.77 kg Kvng Ball Other [facility] Other 11-18-2022 12:00-0400 Diastolic blood pressure 82 mm[Hg] Kvng Ball Other [facility] Other 11-18-2022 12:00-0400 Respiratory rate 12 /min Kvng Ball Other [facility] Other 11-18-2022 12:00-0400 Systolic blood pressure 125 mm[Hg] Kvng Ball Other [facility] Other 10-28-2022 14:05-0400 Diastolic blood pressure 73 mm[Hg] DO Kvng Ball Work Phone: [facility] 10-28-2022 14:05-0400 Heart rate 60 /min DO Kvng Ball Work Phone: [facility] 10-28-2022 14:05-0400 Respiratory rate 18 /min DO Kvng Ball Work Phone: [facility] 10-28-2022 14:05-0400 SaO2% (BldA) [Mass fraction] 96 % DO Kvng Ball Work Phone: [facility] 10-28-2022 14:05-0400 Systolic blood pressure 117 mm[Hg] DO Kvng Ball Work Phone: [facility] 10-28-2022 11:42-0400 Body height 154.94 cm DO Kvng Ball Work Phone: [facility] 10-28-2022 11:42-0400 Body temperature 97.9 [degF] DO Kvng Ball Work Phone: [facility] 10-28-2022 11:42-0400 Body weight 65.77 kg DO Kvng Ball Work Phone: [facility] 10-12-2022 15:00-0400 Body height 152.4 cm Kvng Ball Other [facility] Other 10-12-2022 15:00-0400 Body mass index (BMI) [Ratio] 28.78 kg/m2 Kvng Ball Other [facility] Other 10-12-2022 15:00-0400 Body weight 66.86 kg Kvng Ball Other [facility] Other 10-12-2022 15:00-0400 Diastolic blood pressure 80 mm[Hg] Kvng Ball Other [facility] Other 10-12-2022 15:00-0400 Respiratory rate 12 /min Kvng Ball Other [facility] Other 10-12-2022 15:00-0400 Systolic blood pressure 116 mm[Hg] Kvng Ball Other [facility] Other 07-27-2022 14:38-0500 Body height 152.4 cm Mavis Santiago MD Work Phone: [facility] 07-27-2022 14:38-0500 Body temperature 98.1 [degF] Mavis Santiago MD Work Phone: [facility] 07-27-2022 14:38-0500 Body weight 66.5 kg Mavis Santiago MD Work Phone: [facility] 07-27-2022 14:38-0500 Diastolic blood pressure 72 mm[Hg] Mavis Santiago MD Work Phone: [facility] 07-27-2022 14:38-0500 Heart rate 64 /min Mavis Santiago MD Work Phone: [facility] 07-27-2022 14:38-0500 Respiratory rate 16 /min Mavis Santiago MD Work Phone: [facility] 07-27-2022 14:38-0500 SaO2% (BldA) [Mass fraction] 97 % Mavis Santiago MD Work Phone: [facility] 07-27-2022 14:38-0500 Systolic blood pressure 125 mm[Hg] Mavis Santiago MD Work Phone: [facility] 07-26-2022 09:19-0500 Diastolic blood pressure 69 mm[Hg] DO Kvng Ball Work Phone: [facility] 07-26-2022 09:19-0500 Heart rate 59 /min DO Kvng Ball Work Phone: [facility] 07-26-2022 09:19-0500 Respiratory rate 16 /min DO Kvng Ball Work Phone: [facility] 07-26-2022 09:19-0500 SaO2% (BldA) [Mass fraction] 98 % DO Kvng Ball Work Phone: [facility] 07-26-2022 09:19-0500 Systolic blood pressure 111 mm[Hg] DO Kvng Ball Work Phone: [facility] 07-26-2022 07:19-0500 Body height 154.94 cm DO Kvng Ball Work Phone: [facility] 07-26-2022 07:19-0500 Body temperature 97.7 [degF] DO Kvng Ball Work Phone: [facility] 07-26-2022 07:19-0500 Body weight 66.22 kg DO Kvng Ball Work Phone: [facility] 07-21-2022 14:30-0500 Body height 152.4 cm Kvng Ball Other [facility] [employer] Other 07-21-2022 14:30-0500 Body mass index (BMI) [Ratio] 28.82 kg/m2 Kvng Ball Other [facility] Other 07-21-2022 14:30-0500 Body weight 66.95 kg Kvng Ball Other [facility] Other 07-21-2022 14:30-0500 Diastolic blood pressure 70 mm[Hg] Kvng Ball Other [facility] Other 07-21-2022 14:30-0500 Respiratory rate 12 /min Kvng Ball Other [facility] Other 07-21-2022 14:30-0500 Systolic blood pressure 118 mm[Hg] Kvng Ball Other [facility] Other 05-25-2022 13:02-0500 Body temperature 96.91 [degF] Chair Queens Work Phone: [facility] 05-25-2022 13:02-0500 Diastolic blood pressure 88 mm[Hg] Chair Queens Work Phone: [facility] 05-25-2022 13:02-0500 Heart rate 68 /min Chair Queens Work Phone: [facility] 05-25-2022 13:02-0500 Respiratory rate 18 /min Chair Ryan Work Phone: [facility] 05-25-2022 13:02-0500 SaO2% (BldA) [Mass fraction] 100 % Chair Queens Work Phone: [facility] 05-25-2022 13:02-0500 Systolic blood pressure 146 mm[Hg] Chair Queens Work Phone: [facility] 05-18-2022 15:42-0500 Body temperature 98.1 [degF] Mavis Santiago MD Work Phone: [facility] 05-18-2022 15:42-0500 Body weight 68.04 kg Mavis Santiago MD Work Phone: [facility] 05-18-2022 15:42-0500 Diastolic blood pressure 78 mm[Hg] Mavis Santiago MD Work Phone: [facility] 05-18-2022 15:42-0500 Heart rate 78 /min Mavis Santiago MD Work Phone: [facility] 05-18-2022 15:42-0500 Respiratory rate 16 /min Mavis Santiago MD Work Phone: [facility] 05-18-2022 15:42-0500 SaO2% (BldA) [Mass fraction] 98 % Mavis Santiago MD Work Phone: [facility] 05-18-2022 15:42-0500 Systolic blood pressure 122 mm[Hg] Mavis Santiago MD Work Phone: [facility] Encounters Encounter Date Encounter Type Care Provider Facility Start: 04-16-2025 End: 04-16-2025 ambulatory Kvng Wadsworth DO Work Phone: [facility] Work Phone: Start: 04-16-2025 End: 04-16-2025 Patient encounter procedure Kvng Wadsworth DO -[facility] Work Phone: Start: 04-15-2025 Non-patient / Non-visit Judith Sarmiento temi SKIVER OPERATOR -[facility] Work Phone: Start: 01-10-2025 End: 01-10-2025 ambulatory Kvng Wadsworth DO Work Phone: [facility] Work Phone: Start: 01-10-2025 End: 01-10-2025 Patient encounter procedure Kvng Wadsworth DO -[facility] Work Phone: Start: 01-01-2025 End: 01-01-2025 ambulatory CESARIO COBIAN Not Available Start: 01-01-2025 End: 01-01-2025 Bamboo flowsheet Cesario Cobian DO Work Phone: [facility] Start: 01-01-2025 End: 01-01-2025 Bamboo flowsheet Cesario Cobian DO Work Phone: [facility] Start: 11-01-2024 Non-patient / Non-visit Kvng mac DO -[facility] Work Phone: Start: 10-04-2024 End: 10-04-2024 ambulatory [facility] Work Phone: Start: 10-04-2024 End: 10-04-2024 Patient encounter procedure [facility] Work Phone: Start: 09-24-2024 End: 09-24-2024 ambulatory CESARIO COBIAN Not Available Start: 06-21-2024 End: 06-21-2024 Bamboo flowsheet Alyssa Corona LENS GENERATOR Work Phone: [facility] Start: 06-21-2024 End: 06-21-2024 Bamboo flowsheet Alyssa Corona LENS GENERATOR Work Phone: [facility] Start: 06-21-2024 End: 06-21-2024 Office outpatient visit 15 minutes Alyssa Corona LENS GENERATOR Work Phone: [facility] Comment on above: [...] Start: 03-29-2024 End: 03-29-2024 Bamboo flowsheet Lorelei Kelloggett DO Work Phone: [facility] Start: 03-29-2024 End: 03-29-2024 Office outpatient visit 25 minutes Domingopaul Kelloggett DO Work Phone: [facility] Comment on above: Ptosis of left eyeli d (Primary Dx); Left abducens nerve palsy Start: 03-29-2024 End: 03-29-2024 ambulatory TODDALENA GENESIS Not Available Start: 03-20-2024 End: 03-20-2024 Bamboo flowsheet Nicho Mccoy DO Work Phone: [facility] Start: 03-20-2024 End: 03-20-2024 Bamboo flowsheet Nicho Mccoy DO Work Phone: [facility] Start: 03-20-2024 End: 03-20-2024 Office outpatient visit 15 minutes Nicho Mccoy DO Work Phone: [facility] Comment on above: Chronic low back tom n, unspecified back pain laterality, unspecified whether sciatica present (Primary Dx); DDD (degenerative disc disease), lumbar; Spinal stenosis of lumbar region, unspecified whether neurogenic claudication present Start: 03-20-2024 End: 03-20-2024 ambulatory NICHO MCCOY Not Available Start: 03-16-2024 End: 03-16-2024 Patient encounter procedure DO Kvng Ball Work Phone: [facility] [place] Work Phone: Start: 03-16-2024 End: 03-16-2024 ambulatory DO Kvng Ball Work Phone: [facility] Work Phone: Start: 03-13-2024 End: 03-14-2024 Telephone encounter Veda Milligan LENS GENERATOR Work Phone: [facility] Comment on above: referral Start: 03-01-2024 End: 03-01-2024 Bamboo flowsheet Christpaul Kelloggett [facility] Start: 03-01-2024 End: 03-01-2024 Bamboo flowsheet Lorelei [facility]urtado [facility] Start: 03-01-2024 End: 03-01-2024 Office outpatient visit 25 minutes Toddalena Hurtado DO Work Phone: [facility] Comment on above: Myasthenia gravis (C MS/HCC) (Primary Dx); Ptosis of left eyelid; Left abducens nerve palsy Start: 03-01-2024 End: 03-01-2024 ambulatory LORELEI HURTADO Not Available Start: 01-31-2024 End: 01-31-2024 ambulatory TODDALENA KELLOGGETT Not Available Start: 01-25-2024 End: 01-25-2024 ambulatory VEDA Guerrero APLING Not Available Start: 01-02-2024 End: 01-02-2024 Patient encounter procedure DO Kvng Wadsworth Work Phone: [facility] Work Phone: Start: 09-15-2023 End: 09-15-2023 ambulatory Imad Asaad Other [facility] Other Start: 09-15-2023 Telephone encounter Imad Asaad [facility] Start: 08-10-2023 End: 08-10-2023 ambulatory Imad Asaad Other [facility] Other Start: 08-10-2023 Office outpatient vi sit 25 minutes Imad Asaad [facility] Start: 08-01-2023 End: 08-01-2023 ambulatory Kvng Wadsworth Other [facility] Other Start: 08-01-2023 Telephone encounter Kvng Wadsworth [facility] Start: 07-25-2023 End: 07-25-2023 Patient encounter procedure DO Kvng Wadsworth Work Phone: [facility] [place] Work Phone: Start: 07-25-2023 End: 07-25-2023 ambulatory DO Kvng Wadsworth Work Phone: [facility] Work Phone: Start: 07-06-2023 End: 07-06-2023 ambulatory Imad Asaad Other [facility] Other Start: 07-06-2023 Telephone encounter Imad Asaad [facility] Start: 06-20-2023 End: 06-20-2023 ambulatory Kvng Ball Other [facility] Other Start: 06-20-2023 Telephone encounter Kvng Ball [facility] Start: 06-15-2023 End: 06-15-2023 ambulatory Kvng Ball Other [facility] Other Start: 06-15-2023 Telephone encounter Kvng Ball [facility] Start: 06-08-2023 End: 06-08-2023 ambulatory Kvng Ball Other [facility] Other Start: 06-08-2023 Telephone encounter Kvng Ball [facility] Start: 05-31-2023 End: 05-31-2023 ambulatory Kvng Ball Other [facility] Other Start: 05-31-2023 Telephone encounter Kvng Ball [facility] Start: 05-29-2023 End: 05-29-2023 ambulatory Kvng Ball Other [facility] Other Start: 05-29-2023 Telephone encounter Kvng Ball [facility] Start: 05-28-2023 End: 05-28-2023 ambulatory Kvng Ball Other [facility] Other Start: 05-28-2023 Telephone encounter Kvng Ball [facility] Start: 05-27-2023 End: 05-27-2023 ambulatory Kvng Wadsworth Other [facility] Other Start: 05-27-2023 Office outpatient vi sit 25 minutes Kvng Wadsworth [facility] Start: 05-25-2023 End: 05-25-2023 ambulatory Kvng Wadsworth Other [facility] Other Start: 05-25-2023 Telephone encounter Kvng Wadsworth [facility] Start: 05-20-2023 End: 05-20-2023 ambulatory Kvng Wadsworth Other [facility] Other Start: 05-20-2023 Telephone encounter Kvng RODRIGES [facility] Start: 05-10-2023 End: 05-10-2023 ambulatory Imad Asaad Other [facility] Other Start: 05-10-2023 Telephone encounter Imad Asaad [facility] Start: 04-26-2023 End: 04-26-2023 ambulatory Kvng Wadsworth Other [facility] Other Start: 04-26-2023 Nursing evaluation o f patient and report Kvng Wadsworth [facility] Start: 03-23-2023 End: 03-23-2023 ambulatory Imad Asaad Other [facility] Other Start: 03-23-2023 Telephone encounter Imad Asaad [facility] Start: 03-10-2023 End: 03-10-2023 ambulatory Kvng Wadsworth Other [facility] Other Start: 03-10-2023 Telephone encounter Kvng RODRIGES [facility] Start: 03-07-2023 End: 03-07-2023 ambulatory Kvng Wadsworth Other [facility] Other Start: 03-07-2023 Telephone encounter Kvng RODRIGES [facility] Start: 03-04-2023 End: 03-04-2023 ambulatory Kvng Ball Other [facility] Other Start: 03-04-2023 Office outpatient vi sit 15 minutes Kvng Ball [facility] Start: 02-28-2023 End: 02-28-2023 ambulatory Kvng Ball Other [facility] Other Start: 02-28-2023 Telephone encounter Kvng Ball [facility] Start: 02-22-2023 End: 02-22-2023 ambulatory Kvng Ball Other [facility] Other Start: 02-22-2023 Office outpatient vi sit 25 minutes Kvng Ball [facility] Start: 02-21-2023 End: 02-21-2023 ambulatory Kvng Ball Other [facility] Other Start: 02-21-2023 Telephone encounter Kvng Ball [facility] Start: 01-24-2023 End: 01-24-2023 ambulatory Sadiq Beckham Other [facility] Other Start: 01-24-2023 Telephone encounter Sadiq [place] [facility] Start: 01-24-2023 End: 01-24-2023 Admission to same day surgery center DO Kvng Wasdworth Work Phone: [facility] Work Phone: Start: 12-28-2022 End: 12-28-2022 ambulatory Kvng Ball Other [facility] Other Start: 12-28-2022 Telephone encounter Kvng Ball [facility] Start: 11-19-2022 End: 11-19-2022 ambulatory Kvng Ball Other [facility] Other Start: 11-19-2022 Telephone encounter Kvng Ball [facility] Start: 11-18-2022 End: 11-18-2022 ambulatory Kvng Ball Other [facility] Other Start: 11-18-2022 Patient encounter procedure Kvng Wadsworth [facility] Start: 11-01-2022 End: 11-01-2022 ambulatory Imad Asaad Other [facility] Other Start: 11-01-2022 Telephone encounter Imad Asaad [facility] Start: 10-28-2022 Telephone encounter Sadiq Chapincito Atul [facility] Start: 10-28-2022 End: 10-28-2022 Admission to same day surgery center DO Kvng Wadsworth Work Phone: [facility] Work Phone: Start: 10-28-2022 End: 10-28-2022 ambulatory DO Kvng Wadsworth Work Phone: [facility] Work Phone: Start: 10-21-2022 End: 10-21-2022 ambulatory Kvng Wadsworth Other [facility] Other Start: 10-21-2022 Telephone encounter Kvng RODRIGES [facility] Start: 10-20-2022 End: 10-21-[address] KVNG WADSWORTH Facility:[facility] Start: 10-12-2022 End: 10-12-2022 ambulatory Kvng Wadsworth Other [facility] Other Start: 10-12-2022 Office outpatient vi sit 15 minutes Kvng Wadsworth [facility] Start: 10-12-2022 Telephone encounter Kvng Armstrong 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 Start: 07-27-2022 End: 07-27-2022 Office outpatient visit 15 minutes Mavis Santiago MD Work Phone: Hematology/Oncology Comment on above: Iron deficiency (Danielle bethany Dx) Start: 07-26-2022 Telephone encounter Jeyson [facility]AR[facility] Start: 07-26-2022 End: 07-26-2022 Admission to same day surgery center DO Kvng Wadsworth Work Phone: [facility] Work Phone: Start: 07-26-2022 End: 07-26-2022 ambulatory DO Kvng Wadsworth Work Phone: [facility] Work Phone: Start: 07-22-2022 End: 07-22-2022 Patient encounter procedure DO Kvng Wadsworth Work Phone: [facility] Work Phone: Start: 07-21-2022 End: 07-21-2022 ambulatory Kvng Wadsworth [facility] Other Start: 07-21-2022 Office outpatient vi sit 25 minutes Kvng Wadsworth 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 Hematolo gy/Oncology Start: 05-25-2022 Telephone encounter Financial [...] Start: 05-18-2022 Telephone encounter Adebayo RODRIGES G [employer] Start: 05-17-2022 Chart abstracting Mavis abraham [...] 06-09-2021 Adult health examination Kvng Wadsworth Other [facility] Other Start: 08-02-2019 Preoperative cardiovascular examination Kvng Wadsworth Other [facility] Other Start: 05-31-2019 Gynecological examination normal Kvng Wadsworth Other [facility] Other Start: 01-05-2018 End: 01-06-2018 Evaluation and management of inpatient No Doctor Facility:[facility] Procedures Date Procedure Procedure Detail Performing [...] BRANDYN OPHT [address] [place] [address] Cesario Cobian DO [address] [place] [address] Arrived [facility] Comment on above: [...] 03-11-2024 Influenza vaccination Influenza Vacc ine (#1) [facility] Start: 03-01-2024 End: 03-01-2025 Creatinine [Mass/volume] in Serum or Plasma Creatinine, Serum Lab Routine Myasthenia gravis (CMS/HCC) 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 Expected: 03/01/2024 (Approximate), Expires: 03/01/2025 [facility] Comment on above: Expected: 03/01/2024 (Approximate), Expires: 03/01/2025 Start: 03-01-2024 End: 03-01-2025 CT Chest W contrast IV CT chest w IV contrast Imaging Routine Myasthenia gravis (CMS/HCC) 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 Expected: 03/01/2024, Expires: 03/01/2025 [facility] Work Phone: Comment on above: Expected: 03/01/2024 , Expires: 03/01/2025 Start: 03-01-2024 End: 03-01-2024 Patient encounter procedure 03/01/2024 2:00 PM EDT Office Visit [facility] [address] [place] [id number] Lorelei Hurtado DO [address] [place] [address] [id number] Arrived [facility] Comment on above: Arrived Start: 01-24-2023 End: 03-26-2023 CBC W Auto Differential panel - Blood CBC + DIFF Lab Routine Iron deficiency Expected: 01/24/2023 (Approximate), Expires: 03/26/2023 [facility] Work Phone: Comment on above: Expected: 01/24/2023 (Approximate), Expires: 03/26/2023 Start: 01-24-2023 End: 07-27-2023 Ferritin [Mass/volume] in Serum or Plasma FERRITIN BLD Lab Routine Iron deficiency Expected: 01/24/2023 (Approximate), Expires: 07/27/2023 [facility] Work Phone: Comment on above: Expected: 01/24/2023 (Approximate), Expires: 07/27/2023 Start: 01-24-2023 End: 07-27-2023 Iron and Iron binding capacity panel - Serum or Plasma IRON + TIBC Lab Routine Iron deficiency Expected: 01/24/2023 (Approximate), Expires: 07/27/2023 [facility] Work Phone: Comment on above: Expected: 01/24/2023 (Approximate), Expires: 07/27/2023 Start: 01-24-[address] [facility] Start: 10-28-[address] [facility] Start: 07-27-2022 End: 09-26-2022 CBC W Auto Differential panel - Blood CBC + DIFF Lab Routine Iron deficiency Expected: 07/27/2022 (Approximate), Expires: 09/26/2022 [facility] Work Phone: Comment on above: Expected: 07/27/2022 (Approximate), Expires: 09/26/2022 Start: 07-27-2022 End: 05-18-2023 Ferritin [Mass/volume] in Serum or Plasma FERRITIN BLD Lab Routine Iron deficiency Expected: 07/27/2022 (Approximate), Expires: 05/18/2023 [facility] Work Phone: Comment on above: Expected: 07/27/2022 (Approximate), Expires: 05/18/2023 Start: 07-27-2022 End: 05-18-2023 Iron and Iron binding capacity panel - Serum or Plasma IRON + TIBC Lab Routine Iron deficiency Expected: 07/27/2022 (Approximate), Expires: 05/18/2023 [facility] Work Phone: Comment on above: Expected: 07/27/2022 (Approximate), Expires: 05/18/2023 Start: 07-27-2022 End: 09-26-2022 RETIC COUNT RETIC COUNT Lab Routine Iron deficiency Expected: 07/27/2022 (Approximate), Expires: 09/26/2022 [facility] Work Phone: Comment on above: Expected: 07/27/2022 (Approximate), Expires: 09/26/2022 Start: 07-26-[address] [facility] Start: 07-11-2022 ADVANCE DIRECTIVE DISCUSSION ADVANCE DIRECTIVE DISCUSSION [facility] Start: 07-11-2022 DEPRESSION ASSESSMENT DEPRESSION ASS ESSMENT [facility] Start: 03-11-2022 Influenza vaccination INFLUENZA (#1) [facility] Start: 01-30-2022 COVID-19 VACCINE (5 - Booster for Pfizer series) COVID-19 VACCINE (5 - Booster for Pfizer series) [facility] Start: 07-11-2021 ADVANCE DIRECTIVE DISCUSSION ADVANCE DIRECTIVE DISCUSSION [facility] Start: 07-11-2021 DEPRESSION ASSESSMENT DEPRESSION ASS ESSMENT [facility] Start: 03-29-2019 Pneumococcal Vaccine : 65+ Years (2 of 2 - PCV) Pneumococcal Vaccine: 65+ Years (2 of 2 - PCV) [facility] Start: 03-29-2019 PNEUMOCOCCAL: 65+ (2 - PCV) PNEUMOCOCCAL: 65+ (2 - PCV) [facility] Start: 11-15-2017 DIABETES SCREEN DIABETES SCREEN [facility] Start: 04-23-2016 PNEUMOCOCCAL: 65+ (2 - PCV) PNEUMOCOCCAL: 65+ (2 - PCV) [facility] Start: 2003 BONE DENSITY BONE DENSITY [facility] Start: 01-22-1988 SHINGRIX VACCINE (1 of 2) SHINGRIX VACCINE (1 of 2) [facility] Start: 1957 Urine microalbumin profile DTAP,TDAP,TD (1 - Tdap) [facility] Start: 1938 COVID-19 VACCINE (#1) COVID-19 VACCI NE (#1) [facility] Comprehensive metabo lic 2000 panel - Serum or Plasma [facility] Patient Education [facility] Work Phone: XR Knee - right 4 Views [facility] Immunizations Immunization Date Immunization Notes Care Provider Fa cility 03-26-2024 influenza, high dose seasonal, preservative-free [facility] 04-26-2023 influenza, high dose seasonal, preservative-free Kvgn Ball Other [facility] Other 04-26-2023 influenza virus vaccine, unspecified formulation Lorelei Hurtado DO Work Phone: [facility] 10-19-2022 COVID-19 Pfizer (bivalent) Kvng Wadsworth Other [facility] 12-05-2021 COVID-19 Pfizer Kvng mac Other [facility] 12-05-2021 COVID-19 Vaccine Pfizer - Documentation Purposes Only Kvng Wadsworth Other [facility] 04-14-2021 COVID-19 Vaccine Pfizer - Documentation Purposes Only Kvng Wadsworth Other [facility] 04-06-2021 influenza virus vaccine, split virus (incl. purified surface antigen) Kvng Wadsworth Other [facility] Other 04-06-2021 influenza virus vaccine, unspecified formulation DO Kvng Wadsworth Work Phone: [facility] 04-06-2021 influenza, high-dose , quadrivalent vaccine (FLUZONE HIGH DOSE QUADRIVALENT) Mavis Santiago MD Work Phone: [facility] 08-27-2020 COVID-19 Vaccine Pfizer - Documentation Purposes Only Kvng Wadsworth Other [facility] 08-04-2020 COVID-19 Vaccine Pfizer - Documentation Purposes Only Kvng Wadsworth Other [facility] 04-04-2020 influenza virus vaccine, split virus (incl. purified surface antigen) Kvng Wadsworth Other [facility] Other 04-04-2020 influenza virus vaccine, unspecified formulation DO Kvng Wadsworth Work Phone: [facility] 04-04-2020 influenza, high-dose , quadrivalent vaccine (FLUZONE HIGH DOSE QUADRIVALENT) Mavis Santiago MD Work Phone: [facility] 04-18-2019 influenza, injectabl e, quadrivalent, preservative free Mavis Santiago MD Work Phone: [facility] 03-22-2019 Seasonal trivalent influenza vaccine, adjuvanted, preservative free Mavis Santiago MD Work Phone: [facility] 04-13-2018 influenza virus vaccine, split virus (incl. purified surface antigen) Kvng Wadsworth Other [facility] Other 04-13-2018 influenza virus vaccine, unspecified formulation DO Kvng Wadsworth Work Phone: [facility] 04-13-2018 Seasonal trivalent influenza vaccine, adjuvanted, preservative free Mavis Santiago MD Work Phone: [facility] 03-29-2018 pneumococcal polysaccharide vaccine, 23 valent Mavis Santiago MD Work Phone: [facility] 05-25-2017 Seasonal trivalent influenza vaccine, adjuvanted, preservative free Mavis Santiago MD Work Phone: [facility] 04-27-2016 influenza virus vaccine, split virus (incl. purified surface antigen) Kvng Wadsworth Other [facility] Other 04-27-2016 influenza virus vaccine, unspecified formulation DO Kvng Wadsworth Work Phone: [facility] 04-27-2016 influenza, high dose seasonal, preservative-free Mavis Santiago MD Work Phone: [facility] 04-23-2015 influenza, injectabl e, quadrivalent, preservative free Mavis Santiago MD Work Phone: [facility] 04-23-2015 pneumococcal polysaccharide vaccine, 23 valent Mavis Santiago MD Work Phone: [facility] 04-18-2015 influenza virus vaccine, split virus (incl. purified surface antigen) Kvng Wadsworth Other [facility] Other 04-18-2015 influenza virus vaccine, unspecified formulation DO Kvng Wadsworth Work Phone: [facility] 04-18-2015 pneumococcal conjuga te vaccine, 13 valent Kvng Wadsworth Other [facility] 05-21-2014 influenza, injectabl e, quadrivalent, contains preservative Adebayo Juan Rlashonda Other [facility] 04-26-2014 tetanus and diphther ia toxoids, adsorbed, preservative free, for adult use (5 Lf of tetanus toxoid and 2 Lf of diphtheria toxoid) Kvng Wadsworth Other [facility] 05-09-2013 pneumococcal polysaccharide vaccine, 23 valent Kvng Wadsworth Other [facility] 05-09-2013 tetanus and diphther ia toxoids, adsorbed, preservative free, for adult use (5 Lf of tetanus toxoid and 2 Lf of diphtheria toxoid) Kvng Wadsworth Other [facility] Payers Date Payer Category Payer Self-pay [id number] 2014 Private Health Insurance [id number] 2003 Medicare [id number] 2003 Unknown 1959 Medicare [id number] 1959 Private Health Insurance [id number] 1938 Unknown [id number] 2.16.84 0.1.803820.3.579.2.593 1938 Unknown [id number] 2.16.84 0.1.771277.3.579.2.593 1938 Unknown [id number] 2.16.84 0.1.119275.3.579.2.593 1938 Unknown [id number] 2.16.84 0.1.054519.3.579.2.593 1938 Unknown [id number] 2.16.84 0.1.562185.3.579.2.593 1938 Unknown [id number] 2.16.84 0.1.888971.3.579.2.593 1938 Unknown [id number] 2.16.84 0.1.036839.3.579.2.593 1938 Unknown [id number] 2.16.84 0.1.350703.3.579.2.593 1938 Unknown [id number] 2.16.84 0.1.379925.3.579.2.593 1938 Unknown [id number] 2.16. 840.1.561478.3.579.2.196 1938 Unknown [id number] 2.16. 840.1.341943.3.579.2.196 1938 Unknown [id number] 2.16. 840.1.832618.3.579.2.196 1938 Unknown [id number] 2.16.8 40.1.822650.3.579.2.125 1938 Unknown [id number] 2.16.84 0.1.476992.3.579.2.125 1938 Unknown [id number] 2.16.84 0.1.606127.3.579.2.1259 1938 Unknown [id number] 2.16.84 0.1.226372.3.579.2.125 1938 Unknown [id number] 2.16.84 0.1.380556.3.579.2.125 1938 Unknown [id number] 2.16.84 0.1.316129.3.579.2.125 1938 Unknown [id number] 2.16.84 0.1.400498.3.579.2.1259 1938 Unknown [id number] 2.16.84 0.1.602030.3.579.2.1259 1938 Unknown [id number] 2.16.84 0.1.131903.3.579.2.1259 Medicare [id number] Unknown [id number] 2.16.8 40.1.800875.3.579.2.531 Unknown [id number] 2.16.8 40.1.804701.3.579.2.531 Social History Date Type Detail Facility Start: 01-03-2015 End: 05-27-2023 Tobacco smoking status NHIS Ex-smoker [facility] History of tobacco use Current smoker [facility] Start: 01-03-2015 End: 09-24-2024 Tobacco use and exposure Smokeless tobacco non-user [facility] Start: 05-17-2022 End: 01-01-2025 Alcohol intake Ex-drinker (finding) [facility] Start: 1940 Sex Assigned At Not on file [facility] Start: 05-08-2022 End: 05-25-2022 Exposure to SARS-CoV-2 (event) Not sure [facility] Start: 07-26-2022 End: 01-10-2025 Tobacco smoking status [facility] Never smoked tobacco (finding) [facility] Start: 1940 Sex Assigned At Female 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 [facility] 01-01-2025 Note Right Eye Reliability was good. Progression has been stable. Foveal threshold was normal. Findings include normal observations. Left Eye Reliability was poor. Progression has worsened. Foveal threshold was normal. Findings include superior arcuate defect, superior nasal step defect, inferior nasal step defect. [facility] 01-01-2025 History of Presen [...] laser capsulotomy, they are to notify their top dyeing machine tender promptly if they have a significant change [...] For glasses update. documented in this encounter [facility] 06-21-2024 History of Presen [...] recently evaluated by her eye doctor in [place], [place], and was told her symptoms could [...] Commonly known as: Tenormin cholecalciferol 250 MCG (01715 UT) capsule; Commonly known as: Vitamin D-3 [...] wrist extensors , wrist flexor , and home appliance washing machine mechanic strength 5/5. LUE strength deltoid , biceps , triceps , wrist extensors , wrist flexor , and home appliance washing machine mechanic strength 5/5. RLE strength iliopsoas, quadriceps, tibialis [...] reflex 1+. LLE knee reflex 1+. Coordination: Uamgch-ni-fgnw testing normal. Rapid alternating movements are normal. Gait: Utilizing cane. Review and summary of old records: CT of the chest with contrast: No evidence of thymoma Acetylcholine binding, blocking and modulating antibodies and MSK: negative. MRI of the brain on 10/14/2023 at [place]: No acute infarction. Chronic microvascular ischemic disease [...] [facility] documented in this encounter [facility] 03-29-2024 History of Presen t illness Narrative Images from the original note were not included. Chief complaint: Ocular abnormality. Subjective Tangela Moss, 84 y.o., female Patient presents for a f/u to double vision. Patient daughter is present at visit. Patient is not using a cane to ambulate today. States that since starting [place] XL her pain in her back has [...] Past Surgical History: Procedure Laterality Date APPENDECTOMY 194 HYSTERECTOMY 1988 LUMBAR SPINE SURGERY 1997 L4 [...] reflexes are 1+ and symmetric throughout. Coordination: [id number] testing and rapid alternating movements are normal Gait: Patient ambulates with a cane. Review and summary of old records: CT of the chest with contrast: No evidence of thymoma Acetylcholine binding, blocking and modulating antibodies and MSK: negative. MRI of the brain on 10/14/2023 at [place]: No acute infarction. Chronic microvascular ischemic disease [...] and return instructions documented in this encounter [facility] 03-20-2024 History of Presen [...] (twelve) hours cholecalciferol (Vitamin D-3) 250 MCG (85536 UT) capsule as directed Orally diclofenac (Voltaren) [...] time each day at the same time [place]-3 Fatty Acids (OMEGA 3 500 PO) Take [...] of the lumbar spine from the [facility]. There is scoliosis. There is marked disc [...] Mccoy/jacinto Mccoy D.O. documented in this encounter [facility] 03-13-2024 Telephone encount er Note Pt called and stated she had her MRI done of L-spine at [facility] on 03/02/24 and she has not heard from anyone on the results, and also she stated when she was seen last you mentioned sending her to pain mgmt and she has not heard about scheduling that either? Please advise. I called [facility] for the results? Does she need follow up with Dr Mccoy? [facility] 03-13-2024 Miscellaneous Notes Formattin g of this note might be different from the original. Pt called and stated she had her MRI done of L-spine at [facility] on 03/02/24 and she has not heard from anyone on the results, and also she stated when she was seen last you mentioned sending her to pain mgmt and she has not heard about scheduling that either? Please advise. I called [facility] for the results? Does she need follow up with Dr Mccoy? documented in this encounter [facility] 03-01-2024 History of Presen [...] reflexes are 1+ and symmetric throughout. Coordination: Zvdcix-ty-mufx testing and rapid alternating movements are normal Gait: Patient ambulates with a cane. Review and summary of old records: Acetylcholine binding, blocking and modulating antibodies and MSK: negative. MRI of the brain on 10/14/2023 at [place]: No acute infarction. Chronic microvascular ischemic disease [...] thymoma I did consider an evaluation at [facility] with single fiber EMG. The patient [...] and return instructions documented in this encounter [facility] 08-10-2023 Evaluation note Encounter Date Diagnosis Assessment Notes Jul, Epigastric pain (ICD-10 - R10.13) Jul, Constipation (ICD-10 - K59.00) Oct, Nausea (ICD-10 - R11.0) Nausea [facility] 12-11-2023 Evaluation note* Encounter Date Diagnosis Assessment Notes Treatment Notes Treatment Clinical Notes Jun, Lumbar spondylosis (ICD-10 - M47.816) [facility] 11-21-2023 Evaluation note* Encounter Date Diagnosis Assessment Notes Treatment Notes Treatment Clinical Notes May, Claustrophobia (ICD-10 - F40.240) [facility] 11-17-2023 Evaluation note* Encounter Date Diagnosis [...] May, Other specified hypothyroidism (ICD-10 - E03.8) [facility] 11-10-2023 Evaluation note* Encounter Date Diagnosis Assessment Notes Treatment Notes Treatment Clinical Notes May, Lumbar spondylosis (ICD-10 - M47.816) [facility] 09-13-2023 Evaluation note* Encounter Date Diagnosis Assessment Notes Treatment Notes Treatment Clinical Notes Mar, Chronic superficial gastritis with bleeding (ICD-10 - K29.31) [facility] 08-25-2023 Evaluation note* Encounter Date Diagnosis Assessment Notes Treatment Notes Treatment Clinical Notes Feb, Allergic contact dermatitis due to plants, except food (ICD-10 - L23.7) Cool compresses, topical steroids and begin Prednisone. _update on Feb, Cellulitis of left upper extremity (ICD-10 - L03.114) Elevate and begin antibiotics, update on Tuesday [facility] Other 08-15-2023 Evaluation note* Encounter Date Diagnosis [...] exercise for 30 minutes, 3-5 times weekly. [facility] 08-14-2023 Evaluation note* Encounter Date Diagnosis Assessment Notes Treatment Notes Treatment Clinical Notes Feb, Lumbar spondylosis (ICD-10 - M47.816) [facility] 06-20-2023 Evaluation note* Encounter Date Diagnosis Assessment Notes Treatment Notes Treatment Clinical Notes Dec, Autoimmune thyroiditis (ICD-10 - E06.3) [facility] 05-12-2023 Evaluation note* Encounter Date Diagnosis Assessment Notes Treatment Notes Treatment Clinical Notes November, Lumbar spondylosis (ICD-10 - M47.816) [facility] 05-11-2023 Evaluation note* Encounter Date Diagnosis [...] E03.8) November, Lumbar spondylosis (ICD-10 - M47.816) [facility] 04-20-[address] [facility] NotePROCEDURE: XR HIP LT 2 3V [...] Electronically authenticated by: ANTHONY BAEZ Date: 2022-10-20 15:40[facility]04-04-2023 Evaluation note* Encounter Date Diagnosis Assessment [...] mammogram for breast cancer (ICD-10 - Z12.31) [place] [facility] Other 01-17-2023 NoteHNO ID: [id number] Author: Mavis Santiago MD Service: ? Author Type: Physician Type: Progress Notes Filed: 07/27/2022 2:56 PM Note Text: PATIENT NAME: Tangela Moss CLINIC NO.: [id number] ATTENDING PHYSICIAN: Mavis Santiago MD DATE OF [...] Status 07/27/2022 18.0 (H) (more content not included)...[facility] 07-27-2022 History of Present illness Narrative* Mavis Santiago MD - 07/27/2022 2:48 PM EST PATIENT NAME: Tangela Moss [facility] NO.: [id number] ATTENDING PHYSICIAN: Mavis Santiago MD DATE OF [...] 07/27/2022 3.25 1.00 - 4.00 k/uL Final [place]% Date Value Ref Range Status 07/27/2022 14.0 % Final Abs [place] Date Value Ref Range Status 07/27/2022 1.25 [...] do not hesitate to contact me at [phone]. Mavsi Santiago MD Hematology/Medical Oncology [facility] Sa[facility]ra spent a total of 20 minutes on the date of the service which included preparing to see the patient, gjsf-rk-mevk patient care, completing clinical documentation, obtaining and/or reviewing separately obtained history, performing a medically appropriate examination, counseling and educating the pat ient/family/caregiver, and ordering medications, tests, or procedures. CC: Kvng Wadsworth DO [facility]* Encounter Date Diagnosis Assessment Notes Treatment Notes Treatment Clinical Notes Jul, Acute gastric ulcer without hemorrhage or perforation (ICD-10 - K25.3) [facility] Other [id number] [facility]* Encounter Date Diagnosis Assessment [...] Healty diet, keep active, consistent sleep routine [facility] Other [id number] NoteHNO ID: [id number] Author: MONY Mart Service: ? Author Type: [employer] Type: Progress Notes Filed: 06/02/2022 3:17 PM Note Text: Patient appears on the First Time Treatment List for a non-oncology treatment. No psychosocial assessment is indicated. KAYLEY Mart-[facility]11-23-2022 History of Present illness Narrative* MONY Mart - 06/02/2022 3:16 PM EST Patient appears on the First Time Treatment List for a non-oncology treatment. No psychosocial assessment is indicated. KAYLEY Mart-Aida [facility] Miscellaneous Notes* Telephone Encounter - Mohit Tapia - 05/25/2022 3:32 PM EST 1st report of treatment-non oncology regimen ([facility]) Patient holds Medicare coverage. No FA available at this time. documented in [facility]-2022 NoteHNO ID: [id number] Author: Mavis Santiago MD Service: ? Author Type: Physician Type: Progress Notes Filed: 05/18/2022 4:08 PM Note Text: PATIENT NAME: Tangela [facility] NO.: [id number] ATTENDING PHYSICIAN: Mavis Santiago MD DATE OF [...] Final Lymph% Date Va (more content not included)...[facility]11-08-2022 History of Present illness Narrative* Mavis Santiago MD - 05/18/2022 3:51 PM EST PATIENT NAME: Tangela Moss CLINIC NO.: [id number] ATTENDING PHYSICIAN: Mavis Santiago MD DATE OF [...] 05/11/2018 2.74 1.00 - 4.00 k/uL Final [place]% Date Value Ref Range Status 05/11/2018 12.1 % Final Abs [place] Date Value Ref Range Status 05/11/2018 1.12 [...] do not hesitate to contact me at [phone]. Mavis Santiago MD Hematology/Medical Oncology [facility] I spent a total of 30 minutes on the date of the service which included preparing to see the patient, kinx-iz-lozk patient care, completing clinical documentation, obtaining and/or reviewing separately obtained history, performing a medically appropriate examination, counseling and educating the pat ient/family/caregiver, and ordering medications, tests, or procedures. Medical Decision Making: Medical Decision Making Level: 1 - N/A CC: Kvng Wadsworth DO documented in this encounterA[facility]11-19-2020 Progress note Author Nicho Salcedo [facility] May 29, 2020 11:30am Note Date/Time May 29, 2020 11:29am [facility] at [address] [address] Hem/Onc Follow Up Note - OP Signed Patient: Tangela Moss MR#: [id number] : 1940 Acct:[id number] Age/Sex: 80 / F Type: REG RCR Copies to: Kvng Ball,DO SELF,REFERRAL ~ Subjective Date/Time of Service: Date [...] Rash Penicillins Allergy (Verified 11/28/19 10:23) Hives Cgrekos-Tfp-Ayo Reductase Inhibitor Allergy (Verified 11/28/19 10:23) Unknown [...] Neut % (Auto) 50.8,Lymph % (Auto) 30.1, [place] % (Auto) 14.9, Eos % (Auto) 3.3, Baso % (Auto) 0.9, Neut # (Auto) 4.4, Lymph # (Auto) 2.6, [place] # (Auto) 1.3 H, Eos # (Auto) [...] for coordination of care (as documented) and doys-jx-uapz counseling of patient and/or family. Dictated By: Nicho Salcedo MD DD/ 1128 Signed By: <Electronically signed by MD Nicho Salcedo> 05/29/20 1130 [facility] Work Phone: [phone] 158-125305-20-2020 Progress note Author Nicho Salcedo [facility] November 28, 2019 12:52pm Note Date/Time November 28, 2019 12:50 pm [facility] at [address] [address] Hem/Onc Follow Up Note - OP Signed Patient: Tangela Moss MR#: [id number] : 1940 Acct:[id number] Age/Sex: 79 / F Type: REG RCR [...] Rash Penicillins Allergy (Verified 11/28/19 10:23) Hives Swibyup-Pbe-Uoq Reductase Inhibitor Allergy (Verified 11/28/19 10:23) Unknown [...] Neut % (Auto) 49.9,Lymph % (Auto) 27.3, [place] % (Auto) 15.1, Eos % (Auto) 6.5, Baso % (Auto) 1.2, Neut # (Auto) 4.3, Lymph # (Auto) 2.4, [place] # (Auto) 1.3 H, Eos # (Auto) [...] for coordination of care (as documented) and khyk-xr-bzvj counseling of patient and/or family. Dictated By: Nicho Salcedo MD DD/ 1249 Signed By: <Electronically signed by MD Nicho Salcedo> 11/28/19 1252 [facility] Work Phone: Evaluation note* Diagnosis Iron deficiency- Primary Iron deficiency anemia, unspecified [facility]* Diagnosis Iron deficiency anemia, unspecified iron deficiency anemia type- Primary Iron deficiency Iron deficiency anemia, unspecified [facility]* Diagnosis Iron deficiency- Primary Iron deficiency anemia, unspecified documented in this encounter [facility] HospitalEvaluation noteNo assessment information availableDetwiler [facility] Work Phone: Evaluation noteNo InformationNort [facility] Other Evaluation note* Diagnosis Onset Date Resolution [...] acute Medicare annual wellness visit, subsequent noneactive [facility] Work Phone: Evaluation note* Diagnosis Myasthenia gravis ([facility])- Primary Myasthenia gravis without exacerbation Ptosis of left eyelid Unspecified ptosis of eyelid Left abducens nerve palsy [facility]* Diagnosis DDD (degenerative disc disease), lumbar- Primary Degeneration of lumbar or lumbosacral intervertebral disc documented in this encounter [facility]* Diagnosis Chronic low back pain, unspecified back pain laterality, unspecified whether sciatica present- Primary DDD (degenerative disc disease), lumbar Degeneration of lumbar or lumbosacral intervertebral disc Spinal stenosis of lumbar region, unspecified whether neurogenic claudication present documented in this encounter [facility] HealthcareEvaluation note* Diagnosis Ptosis of left eyelid- Primary Unspecified ptosis of eyelid Left abducens nerve palsy documented in this encounter [facility]Evaluation note* Diagnosis Ptosis of left eyelid- Primary Unspecified ptosis of eyelid Left abducens nerve palsy documented [facility] encounter [facility]* Diagnosis Onset Date Resolution Status Admit Date Age-related osteoporosis wit hout current pathological fracture acute [facility] 2024 10:23am Anemia acute October 04 10:23am [...] October 04, 2024 10:23am Primary hypertension acute [facility] 2024 10:23am Stage 3a chronic kidney disease acut e October 04, 2024 10:23am [facility] Work Phone: Evaluation note* Diagnosis Primary open angle glaucoma (POAG) of left eye, moderate stage- Primary Primary open angle glaucoma (POAG) of right eye, mild stage 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 documented [facility] encounter [facility]* Diagnosis Onset Date Resolution Status Admit Date Age-related osteoporosis wit hout current pathological fracture acute Ju 2024 9:54am Ascending aorta dilatation acute January [...] it, subsequent noneactive January 10, 2025 9:54am [facility] Work Phone: Evaluation note* Diagnosis Onset Date Resolution Status Admit Date Age-related osteoporosis without current pathological fracture acute April 16 1:59pm Chronic venous insufficiency acute April 16, 2025 1:59pm Lumbar spondylosis acute 2024 1:59pm Paralytic strabismus, sixth or abducens nerve palsy acute April 1:59pm Partial left third nerve palsy acute April 16, 2025 1:59pm Primary hypertension acute 2024 1:59pm Stage 3a chronic kidney disease acut e April 16, 2025 1:59pm [facility] Work Phone: History and physical note Author Jeyson Diaz [facility] July 26, 2022 8:09am Note Date/Time July 26, 2022 8 :09am [facility] [address] [place] [address] Gastroenterology H&P Signed Patient: Tangela Moss MR#: [id number] : 1940 Acct:[id number] Age/Sex: 82 / F Adm Date: 3 Loc: Room: Type: [facility] Attending Dr: Jeyson Diaz [...] by Jeyson Diaz MD> 07/26/22808 [facility] Work Phone: History and physical note Author Jeyson Diaz [facility] October 28, 2022 1:13pm Note Date/Time October 28, 2022 1:1 3pm [facility] [address] [place] [address] Gastroenterology H&P Signed Patient: Tangela Moss MR#: [id number] : 1940 Acct:[id number] Age/Sex: 82 / F Adm Date: 3 Loc: Room: Type: [facility] Attending Dr: Jeyson Diaz [...] Diaz M.D. 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 Medical History Essential hypertension Medical History [...] History colonoscopy 07/26/22 Hospitalization History see above [facility] Other History general Narrative - Reported* Type Description Date Medical History Cervical spondylosis Medical History Vitamin D deficiency Medical History Hyponatremia Medical History [place] Medical History Fatigue Medical History Depression screening Medical History Encounter for screening breast e xamination Medical History Leukocytosis Medical History 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 Medical History Essential hypertension Medical History [...] w/ biopsy 10/2022 Hospitalization History see above [facility] Other Hisgzjv general Narrative - Reported* Type Description Date Medical History Cervical spondylosis Medical History Vitamin D deficiency Medical History Hyponatremia Medical History [place] Medical History Fatigue Medical History Depression screening Medical History Encounter for screening breast e xamination Medical History Leukocytosis Medical History 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 - Office number [phone]. [facility] Work Phone: Hospital Discharge instructions Additional [...] problems. -Follow up with PCP. -Office number [phone]. [facility] Work Phone: Hospital Discharge instructions Additional [...] NOT operate machinery such as power tools, [employer]n mowers, snow blowers, sewing machines, etc. for [...] problems. -Follow up with PCP. -Office number [phone]. [facility] Work Phone: Reason for referral (narrative)* Consultation (Routine) - Authorized Specialty Diagnoses / Procedures Referred By Contac t Referred To Contact Pain Medicine Diagnoses Spinal stenosis of lumbar region, unspecified whether neurogenic claudication present Procedures [place] OFFICE/OUTPATIENT NEW HIGH MDM 60 MINUTES Nicho Mccoy DO [address] [facility] [address] [place] [address] Ozzy Winters MD [address] [facility], [address] [place] [address] Referral ID Status Reason Start Date Expiration Date Visits Requested Visits Authorized [id number] Authorized Consult and Treat 03/20/2024 09/16/2024 1 1 [facility] for referral (narrative)No reason for referral information availableV[facility] Health [facility] Work Phone: Summary Purpose Family History Relationship [...] 10: 23am Ascending aorta dilatation October 04, 025 10:23am Chronic venous insufficiency October 04, [...] visit, subseque nt January 10, 2025 9:54am Chief Complaint Admit Date Amb Documentation April 15, 2025 9: 34am [facility] ER f/u fall April 16, 2025 1: 59pm Reason for Visit Admit Date Age-related osteoporosis wit hout current pathological fracture April 16, 2025 1:59pm Chronic venous insufficiency April 1:59pm Lumbar spondylosis April 16, 2025 1: 59pm Paralytic strabismus, sixth or abducens nerve palsy April 16, 2025 1:59pm Partial left third nerve palsy April 162024 1:59pm Primary hypertension April 16, 2025 1 :59pm Stage 3a chronic kidney disease April 16, 2025 1:59pm Reason for Referral Specialty Diagnoses / Procedures Referred By Jane bliss Referred To Contact Diagnoses Myasthenia gravis (CMS/HCC) 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 Procedures CT chest w IV contrast Lorelei Hurtado DO [address] [place] [address] [facility] Scheduling [address] [place] [address] Referral ID Status Reason Start Date Expiration Date V isits Requested Visits Authorized [id number] Pending Review 03/01/2024 08/28/2024 1 1 Additional Source Comments INFORMATION SOURCE (unrecogn ized section and content) DATE CREATED AUTHOR 01/06/2018 Bethany craig DATE CREATED AUTHOR AUTHOR'S ORGANIZ ATION 08/04/2022 [facility] DATE CREATED AUTHOR AUTHOR'S ORGANIZ ATION 11/10/2022 [facility] DATE CREATED AUTHOR AUTHOR'S ORGANIZ ATION 03/25/2024 [facility] DATE CREATED AUTHOR AUTHOR'S ORGANIZ ATION 05/09/2024 [facility] DATE CREATED AUTHOR AUTHOR'S ORGANIZ ATION 01/02/2025 [facility] EPIC Source Comments (unrecognize d section and content) In the event this informatio n is protected by the Federal Confidentiality of Alcohol and Drug Abuse Patient Records regulations: The Federal rules restrict any use of the information to criminally investigate or prosecute any alcohol or drug abuse patient.[facility] Hospital[facility] the event this information is protected by the Federal Confidentiality of Alcohol and Drug Abuse Patient Records regulations: The Federal rules restrict any use of the information to criminally investigate or prosecute any alcohol or drug abuse patient.[facility] HospitalIn the event this information is protected by the Federal Confidentiality of Alcohol and Drug Abuse Patient Records regulations: The Federal rules restrict any use of the information to criminally investigate or prosecute any alcohol or drug abuse patient.[facility] HospitalIn the event this information is protected by the Federal Confidentiality of Alcohol and Drug Abuse Patient Records regulations: The Federal rules restrict any use of the information to criminally investigate or prosecute any alcohol or drug abuse patient.[facility] HospitalIn the event this information is protected by the Federal Confidentiality of Alcohol and Drug Abuse Patient Records regulations: The Federal rules restrict any use of the information to criminally investigate or prosecute any alcohol or drug abuse patient.[facility] HospitalIn the event this information is protected by the Federal Confidentiality of Alcohol and Drug Abuse Patient Records regulations: The Federal rules restrict any use of the information to criminally investigate or prosecute any alcohol or drug abuse patient.[facility] Care Teams (unrecognized sec tion and [...] 2025 End: January 10, 2025 Team Status: Inactive Member Role Status Dates Kvng Wadsworth DO Primary Care Provider Active Jeyson Diaz MD Attending Provider Active 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 Body 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 Relationship Specialty Start Date End Date Kvng Wadsworth DO PCP - General Internal Medicine 11/14/14 Auto Body Mechanic Apprentice Relationship Specialty Start Date End Date Kvng Wadsworth DO PCP - General Internal Medicine 11/14/14 Auto Body Mechanic Apprentice Relationship Specialty Start Date End Date Kvng Wadsworth DO PCP - General Internal Medicine 11/14/14 Auto Body Mechanic Apprentice Relationship Specialty Start Date End Date Kvng Wadsworth DO PCP - General Internal Medicine 11/14/14 Auto Body Mechanic Apprentice Relationship Specialty Start Date End Date Kvng Wadsworth DO PCP - General Internal Medicine 11/14/14 Auto Body Mechanic Apprentice Relationship Specialty Start Date End Date Kvng [...] March 16, 2024 End: March 16, 2024 Auto Body Mechanic Apprentice Relationship Specialty Start Date End Date Kvng Wadsworth MD [address] [place] [address] PCP [facility] Internal Medicine 01/25/24 Auto Body Mechanic Apprentice Relationship Specialty Start Date End Date Kvng Wadsworth MD [address] [place] [address] PCP - General Internal Medicine 01/25/24 Auto Body Mechanic Apprentice Relationship Specialty Start Date End Date Kvng Wadsworth MD [address] [facility] [address] PCP - General Internal Medicine 01/25/24 Auto Body Mechanic Apprentice Relationship Specialty Start Date End Date Kvng Wadsworth MD [address] [facility] [facility] [address] PCP - General Internal Medicine 01/25/24 Auto Body Mechanic Apprentice Relationship Specialty Start Date End Date Kvng Wadsworth MD [address] [facility] [facility] [address] PCP - General Internal Medicine 01/25/24 Auto Body Mechanic Apprentice Relationship Specialty Start Date End Date Kvng Wadsworth MD [address] [facility] [address] PCP - General Internal Medicine 01/25/24 Auto Body Mechanic Apprentice Relationship Specialty Start Date End Date Kvng Wadsworth MD [address] [facility] [address] PCP - General Internal Medicine 01/25/24 Auto Body Mechanic Apprentice Relationship Specialty Start Date End Date Kvng Wadsworth MD [address] [facility] [facility] [address] PCP - General Internal Medicine 01/25/24 Auto Body Mechanic Apprentice Relationship Specialty Start Date End Date Kvng Wadsworth MD [address] [facility] [facility] [address] PCP - General Internal Medicine 01/25/24 Team Status: Inactive Member Role Status Dates Kvng Wadsworth DO Primary Care Provide r, Attending Provider Active Start: October 04, 2024 End: October 04, 2024 Auto Body Mechanic Apprentice Relationship Specialty Start Date End Date Kvng Wadsworth PCP - General Internal Medicine 01/25/24 [employer] Apprentice Relationship Specialty Start Date End Date Kvng Wadsworth PCP - General Internal Medicine 01/25/24 Team Status: Active Member Role Status Dates Kvng Wadsworht DO Primary Care Provider Active Start: April 15, 2025 Judith Fitzpatrick CMA Attending Provider Active Start: April 15, 2025 Team Status: Inactive Member Role Status Dates Kvng Wadsworth DO Primary Care Provider Active Start: April 16, 2025 End: April 16, 2025 Kvng Wadsworth DO Attending Provider Active Sta rt: April 16, 2025 End: April 16, 2025 Reason for Visit (unrecogniz ed section and content) Reason Comments Anemia Transition of care. Ref back by Dr. Wadsworth Reason Comments Benefits Investigation Specialty Diagnoses / Procedures Referred By Contsuraj t Referred To Contact Diagnoses Iron deficiency anemia, unspecified iron deficiency anemia type Iron deficiency Mavis Santiago MD [address] [place] [id number] Damon Treat [address] [place] [address] Referral ID Status Reason Start Date Expiration Date V isits Requested Visits Authorized [id number] Authorized 05/18/2022 08/16/2022 99 99 Reason Comments [...] BE BASED ON THE PRIMARY CLINICAL RECORDS. [employer] [facility]. provides no warranty or guarantee of the accuracy or completeness of information in this document.
[2025-04-23 16:48] LABS: Hematocrit 38.1 % (36.0-48.0); Hemoglobin 13.1 g/dL (12.0-16.0); Immature Granulocytes Abs Auto 0.06 10^3/uL (0.00-0.03); Immature Granulocytes Pct Auto 0.7 % (0.0-0.5); Lymphocytes Absolute Auto 3.1 10^3/uL (1.2-3.8); Mean Corpuscular HGB Conc 34.4 g/dL (29.9-35.2); Mean Corpuscular Hemoglobin 30.0 pg (26.7-34.0); Mean Corpuscular Volume 87.4 fL (81.0-99.0); Platelet Count 341 10^3/uL (150-450); Red Blood Count 4.36 10^6/uL (4.20-5.40); White Blood Count 8.1 10^3/uL (4.0-11.0)
[2025-04-23 17:05] LABS: Alanine Aminotransferase 31 U/L (14-59); Albumin Globulin Ratio 1.0; Albumin Level 3.6 g/dL (3.4-5.0); Alkaline Phosphatase 71 U/L (46-116); Anion Gap 14.0; Aspartate Amino Transferase 25 U/L (15-37); Blood Urea Nitrogen 15.0 mg/dL (7.0-18.0); Calcium 9.0 mg/dL (8.5-10.1); Carbon Dioxide 26.3 mmol/L (21.0-32.0); Chloride 98 mmol/L (98-107); Cholesterol 230 mg/dL (<=200); Estimated GFR (African America >60 (>=60 mL/min/1.73m^2); Estimated GFR (Non-African Ame 51 (>=60 mL/min/1.73m^2); Globulin 3.7 g/dL; Glucose 86 mg/dL (74-106); HDL Cholesterol 57 mg/dL (40-60); Potassium 4.3 mmol/L (3.5-5.1); Sodium 134 mmol/L (136-145); Thyroid Stimulating Hormone 2.225 uIU/mL (0.358-3.740); Total Protein 7.3 g/dL (6.4-8.2); Triglycerides 200 mg/dL (<=150); VLDL CHOLESTEROL 40.0 mg/dL
== END 2025-04-23 15:14 | disposition home or self-care (01) ==
LOC: LAB 15:22
PROVIDERS: PCP Internal Medicine; Visit Provider Internal Medicine
DX: E78.00 Pure hypercholesterolemia, unspecified (principal); E06.3 Autoimmune thyroiditis; E55.9 Vitamin D deficiency, unspecified; I10 Essential (primary) hypertension
CPT/HCPCS: 36415; 80053; 80061; 82306; 84443; 85025